=== PATIENT | female | born 1970 | race Caucasian/White ===

== ENCOUNTER → 2017-01-01 | Outpatient (CLI) | payer MEDICARE, MEDICAID ==
[~2017-01-01] MED LIST: BPR100T; BUPR300T2 PO; CHOL10003 PO; CLARINEX; CLIN300C3 PO; D50KC; DESV50TA PO; DOXY-13 PO; FEXO180T; FLUT9.9S NSEACH; FLUV100C PO; FLVX50T PO; FURO20TA4 PO; HLP5T; HYDR-2856; HYDR-3600; IBUP400T22; ISOM1CAP PO; ISOM1CAP11 PO; LAMO100T69 PO; LEVO88TA26 PO; LISI5TAB PO; LORA10CA PO; LORA10TA7 PO; LRT10T PO; MELO-195 PO; MELO7.5T; MELO7.5T PO; MNTL10T PO; NAPR-243 PO; NF-ESOM40C; POLY119P PO; PRD50T PO; PREG50C PO; RNT150T PO; ROZEREM; RT-ALBUINH IH; SULF1TAB38; SYNTHROID; TOPI200T19 PO; TPR100T; TRAZ150T42 PO; TRAZ300T3 PO; TRM50T PO; TRZ100T; ZALE10CA10 PO; [UNRECOGNIZED DRUG - CODE] OP
--- NOTE | 2017-01-01 13:31 | Diagnostic Imaging Report ---
EXAMINATION: Bilateral renal ultrasound. INDICATION: Chronic kidney disease. FINDINGS: The right kidney is 9.5 cm and the left kidney is 7.8 cm in length. There is no hydronephrosis or focal lesion. The lower pole of the left kidney is slightly obscured by overlying bowel gas. No focal lesion is identified. The echogenicity of the renal cortex is increased on both sides compatible with intrinsic parenchymal renal disease. The urinary bladder appears unremarkable. IMPRESSION: No hydronephrosis. Dictated by: Dictated on workstation # [id number]
== END ==
LOC: RAD 10:39
PROVIDERS: ATTEND Internal Medicine Nephrology
DX: I12.9 Hypertensive chronic kidney disease with stage 1 through stage 4 chronic kidney disease, or unspecified chronic kidney disease (principal); N18.3 Chronic kidney disease, stage 3 (moderate)
CPT/HCPCS: 76770

== ENCOUNTER 2017-04-24 10:50 | Outpatient (RCR) | payer MEDICARE, MEDICAID ==
[2017-04-23 13:43] LABS: BASOPHILS # (AUTO) 0.1 10^3/uL (0.0-0.1); BASOPHILS % (AUTO) 1 % (0-10); EOSINOPHILS # (AUTO) 0.8 10^3/uL (0.0-0.3); EOSINOPHILS % (AUTO) 7 % (0-10); LYMPHOCYTES # (AUTO) 2.2 X 10^3 (1.0-4.0); LYMPHOCYTES % (AUTO) 17 % (12-44); MEAN CORPUSCULAR HEMOGLOBIN 30 PG (25-34); MEAN CORPUSCULAR HGB CONC 33 G/DL (32-36); MEAN CORPUSCULAR VOLUME 92 FL (80-99); MEAN PLATELET VOLUME 11.1 FL (7.4-10.4); MONOCYTES # (AUTO) 0.8 X 10^3 (0.0-1.0); MONOCYTES % (AUTO) 6 % (0-12); NEUTROPHILS # (AUTO) 8.9 X 10^3 (1.8-7.8); NEUTROPHILS % (AUTO) 70 % (42-75); PLATELET COUNT 272 10^3/uL (130-400); RED BLOOD COUNT 4.16 10^6/uL (4.35-5.85); RED CELL DISTRIBUTION WIDTH 12.5 % (10.0-14.5); WHITE BLOOD COUNT 12.8 10^3/uL (4.3-11.0)
[2017-04-23 14:23] LABS: ALBUMIN 4.4 GM/DL (3.2-4.5); CALCIUM 9.3 MG/DL (8.5-10.1); CREATININE SERUM 1.5 MG/DL (0.60-1.30); MAGNESIUM 1.9 MG/DL (1.8-2.4); PHOSPHORUS 3.4 MG/DL (2.3-4.7); POTASSIUM 4.2 MMOL/L (3.6-5.0)
[2017-04-23 16:28] LABS: %SAT TOTAL IRON BINDING CAPIC 14 % (15-50); TIBC 353 ug/dL (280-380)
[2017-04-23 17:10] LABS: UIBC 304 ug/dL (55-450)
[2017-04-24 11:27] LABS: BILIRUBIN,URINE NEGATIVE (NEGATIVE); KETONES,URINE NEGATIVE (NEGATIVE); LEUKOCYTE ESTERASE ,URINE NEGATIVE (NEGATIVE); NITRITE,URINE NEGATIVE (NEGATIVE); PH,URINE 5 (5-9); PROTEIN,URINE NEGATIVE (NEGATIVE); UROBILINOGEN,URINE NORMAL (NORMAL)
[2017-04-24 11:42] LABS: SQUAMOUS EPITHELIAL CELL,UR 0-2 /HPF
[2017-04-24 16:09] LABS: CALCIUM PARA THYROID HORMONE 9.4 mg/dL (8.5-10.5); VITAMIN D 25-HYDROXY (TOTAL) 38 ng/mL (30-100)
[2017-04-24 16:10] LABS: FOLIC ACID >24.0 ng/mL (1.5-24.0)
== END 2017-04-29 14:28 | disposition home or self-care (01) ==
LOC: LAB 10:50 → EDSTATUS 04-29 14:27 → LAB 04-29 14:28
PROVIDERS: ATTEND Obstetrics & Gynecology Reproductive Endocrinology
DX: I12.9 Hypertensive chronic kidney disease with stage 1 through stage 4 chronic kidney disease, or unspecified chronic kidney disease (principal); N18.3 Chronic kidney disease, stage 3 (moderate); D64.9 Anemia, unspecified
CPT/HCPCS: 36415; 80069; 82306; 82607; 82728; 82746; 83540; 83735; 83970; 85025

== ENCOUNTER 2017-10-02 09:00 | Emergency (ER) | payer MEDICARE, MEDICAID ==
[~2017-10-02] VITALS: Ht 177.8 cm; Wt 99.8 kg
--- OUTSIDE RECORDS SUMMARY | 2017-10-02 09:11 | XMS REPORT ---
Author Author SEA BOYCE [facility] eClinicalWorks Address Unknown Phone Unavailable Care Team Providers Care Apparatus Operator Name Role Phone SEA BOYCE Unavailable Allergies No Known Allergies Problems Problem Type Condition Code Onset Dates Condition Status Problem Nicotine addiction F17.200 Active Problem Allergic rhinitis J30.9 Active Problem Plantar fascial fibromatosis M72.2 Active Problem Bilateral carotid artery disease I77.9 Active Problem Low back pain, unspecified back pain laterality, unspecified chronicity, with sciatica presence unspecified M54.5 Active Problem Slow transit constipation K59.01 Active Problem Depression F32.9 Active Problem Anxiety F41.9 Active Problem Osteoarthritis M19.90 Active Problem Schizo affective schizophrenia F25.0 Active Problem GERD (gastroesophageal reflux disease) K21.9 Active Problem Essential hypertension I10 Active Problem Insomnia G47.00 Active Problem Hypothyroidism E03.9 Active Problem Raynauds syndrome I73.00 Active Medications No Known Medications Results No Known Results Summary Purpose eClinicalWorks Submission
--- OUTSIDE RECORDS SUMMARY | 2017-10-02 09:11 | XMS REPORT ---
Author Author LINDY GALINDO Organization eClinicalWorks Address Unknown Phone Unavailable Care Team Providers Care Necktie Turner Name Role Phone LINDY GALINDO CP Unavailable Allergies No Known Allergies Problems Problem Type Condition ICD-9 Code Onset Dates Condition Status Problem Unspecified abnormal mammogram 793.80 Active Problem Insomnia, unspecified 780.52 Active Problem Raynaud's syndrome 443.0 Active Problem Equinus deformity of foot, acquired 736.72 Active Problem Pain in soft tissues of limb 729.5 Active Problem Lesion of plantar nerve 355.6 Active Problem Unspecified pruritic disorder 698.9 Active Problem Olecranon bursitis 726.33 Active Problem Routine general medical examination at health care facility V70.0 Active Problem Allergic rhinitis, cause unspecified 477.9 Active Problem Cough 786.2 Active Problem Acute sinusitis, unspecified 461.9 Active Problem Blood in stool 578.1 Active Problem Screening for malignant neoplasm of the cervix V76.2 Active Problem Nondependent tobacco use disorder 305.1 Active Problem Major depressive disorder, recurrent episode, severe, without mention of psychotic behavior 296.33 Active Problem Other and unspecified bipolar disorders 296.89 Active Problem Anxiety state, unspecified 300.00 Active Problem Other acute sinusitis 461.8 Active Problem Eating disorder, unspecified 307.50 Active Problem Unspecified peripheral vascular disease 443.9 Active Problem Other dysfunctions of sleep stages or arousal from sleep 307.47 Active Problem Unspecified psychosis 298.9 Active Problem Unspecified breast screening V76.10 Active Problem Unspecified follow-up examination V67.9 Active Problem Plantar fascial fibromatosis 728.71 Active Problem Rash and other nonspecific skin eruption 782.1 Active Problem Unspecified episodic mood disorder 296.90 Active Problem Pain in joint, upper arm 719.42 Active Medications Medication Code System Code Instructions Start Date End Date Status Dosage Meloxicam [facility] [id number] 15 TAKE ONE TABLET BY MOUTH DAILY Results No Known Results Summary Purpose eClinicalWorks Submission
--- OUTSIDE RECORDS SUMMARY | 2017-10-02 09:11 | XMS REPORT ---
Author Author SURJIT GOLDMAN [facility] eClinicalWorks Address Unknown Phone Unavailable Care Team Providers Care Planner Internship Name Role Phone SURJIT GOLDMAN CP Unavailable Allergies, Adverse Reactions, Alerts Substance Reaction Event Type Silvadene Info Not Available Drug Allergy Penicillin V Potassium Info Not Available Drug Allergy Levaquin muscle/joint ache Drug Allergy Feldene Info Not Available Drug Allergy Codeine Info Not Available Drug Allergy Cholecalciferol (vitamin D3) 50,000 Unit Capsule threw /medslabs out of whack Non Drug Allergy Problems Problem Type Condition Code Onset Dates Condition Status Problem GERD (gastroesophageal reflux disease) K21.9 Active Problem Insomnia G47.00 Active Problem Essential hypertension I10 Active Problem Depression F32.9 Active Assessment Depression F32.9 Active Problem Anxiety F41.9 Active Assessment Schizo affective schizophrenia F25.0 Active Problem Schizo affective schizophrenia F25.0 Active Problem Nicotine addiction F17.200 Active Problem Raynauds syndrome I73.00 Active Problem Allergic rhinitis J30.9 Active Problem Plantar fascial fibromatosis M72.2 Active Assessment GERD (gastroesophageal reflux disease) K21.9 Active Assessment Raynauds syndrome I73.00 Active Assessment Anxiety F41.9 Active Assessment Allergic rhinitis J30.9 Active Assessment Essential hypertension I10 Active Assessment Hypothyroidism E03.9 Active Assessment Nicotine addiction F17.200 Active Assessment Routine adult health maintenance Z00.00 Active Assessment Insomnia G47.00 Active Problem Hypothyroidism E03.9 Active Medications Medication Code System Code Instructions Start Date End Date Status Dosage Meloxicam [facility] [id number] 15 TAKE ONE TABLET BY MOUTH DAILY Topamax [facility] [address]-48 200 mg May 06, 2013 take 1 tablet by Oral route 2 times per day for mood stabilization Singulair [facility] [id number] 10 TAKE ONE TABLET BY MOUTH EVERY EVENING Lamictal [facility] [address]-43 200 mg May 06, 2013 1 tablet by Oral route 1 time per day in evening for mood stabilization. Wellbutrin XL [facility] [address]-74 150 mg Mar 16, 2014 take 1 tablet by Oral route 1 time per day take with 300mg BuPROPion HCl [facility] [address]-37 300 mg Mar 16, 2014 take 1 tablet by Oral route 1 time per day take with 150mg Loratadine [facility] [address]-47 10 MG Orally Once a day 1 tablet ProAir HFA [facility] [address]-73 90 mcg/actuation Jun 28, 2014 inhale 2 puffs by Inhalation route every 4 hours as needed PRN shortness of breath/ cough Lisinopril [facility] [address]-73 5 mg 1 TAB orally once a day Jun 28, 2014 take 1 tablet (5 mg) by oral route once daily ranitidine [facility] 0 150 mg orally 2 times a day prn heartburn Jun 28, 2014 1 tablet Zoloft [facility] [address]-81 100 mg Jun 28, 2014 take 1 tablet (100 mg ) by oral route once daily levothyroxine [facility] 0 88 mcg Jun 28, 2014 take 1 tablet (88 mcg) by oral route once daily Vitamin D [facility] [address]-02 1000 UNIT Orally Once a day 1 tablet Melatonin [facility] [address]-77 5 mg December 10, 2012 0.5 Tablet by Oral route 1 time per day at night Procedures Procedure Coding System Code Date VENIPUNCT, ROUTINE* CPT-4 23558 Jun 16, 2015 [facility] VISIT ESTABLISHED PATIENT CPT-4 G0467 Jun 16, 2015 LAB [facility]ILL[facility] BY [facility] CPT-4 NOBLL Jun 16, 2015 Office Visit, Est Pt., Level 4 CPT-4 30233 Jun 16, 2015 Vital Signs Date/Time: Jun 16, 2015 Temperature 98.3 F Weight 176.0 lbs Height 72 in BMI 23.87 Index Blood Pressure Diastolic 72 mmHg Blood Pressure Systolic 138 mmHg Cardiac Monitoring Heart Rate 70 bpm Results Name Result Date Reference Range Unit Abnormality Flag ROUTINE VENIPUNCTURE Summary Purpose eClinicalWorks Submission
--- OUTSIDE RECORDS SUMMARY | 2017-10-02 09:11 | XMS REPORT ---
Author Author SEA BOYCE Organization [facility] Address [address] [place] [address] Care Team Providers Care General Matcher Name Role Phone CARLI SEA Unavailable PROBLEMS Type Condition ICD9-CM Code [id number] Code Onset Dates Condition Status SNOMED Code Problem Osteoarthritis M19.90 Active 754940762 Problem Low back pain, unspecified back pain laterality, unspecified chronicity, with sciatica presence unspecified M54.5 Active 867905857 Problem Slow transit constipation K59.01 Active 78161754 Problem Leonela-menopausal N95.1 Active 485696030873450 Problem Allergic rhinitis J30.9 Active 57057991 Problem Vitamin D deficiency E55.9 Active 80261977 Problem Visit for TB skin test Z11.1 Active 510634087 Problem Bilateral carotid artery disease I77.9 Active 300223091 Problem Fibromyalgia M79.7 Active 421963661 Problem Stage 3 chronic kidney disease N18.3 Active 620856223 Problem GERD (gastroesophageal reflux disease) K21.9 Active 240145680 Problem Hypothyroidism E03.9 Active 01278437 Problem Insomnia G47.00 Active 773785778 Problem Depression F32.9 Active 44112565 Problem Schizo affective schizophrenia F25.0 Active 578057536 Problem Plantar fascial fibromatosis M72.2 Active 23801632 Problem Anxiety F41.9 Active 23627081 Problem Raynauds syndrome I73.00 Active 851759950 Problem Essential hypertension I10 Active 64243383 Problem Nicotine addiction F17.200 Active 31623118 ALLERGIES No Information SOCIAL HISTORY Never Assessed PLAN OF CARE VITAL SIGNS MEDICATIONS Unknown Medications RESULTS No Results PROCEDURES No Known procedures IMMUNIZATIONS No Known Immunizations MEDICAL (GENERAL) HISTORY Type Description Date Medical History Hypertension Medical History Seasonal allergies Medical History raynauds syndrome Medical History Insomnia Medical History Hypothyroidism Medical History schizoaffective disorder with bipolar tendancies Medical History Manic Depression Medical History carotid artery disease Medical History kidney Disease Surgical History Appendectomy Surgical History Cholecystectomy Hospitalization History childbirth Hospitalization History past surgery Hospitalization History mental illness
--- OUTSIDE RECORDS SUMMARY | 2017-10-02 09:11 | XMS REPORT ---
Author Author JULIA GARCIA Organization [facility] Address [address] [place] [address] Care Team Providers Care Local City Driver Name Role Phone JULIA GARCIA Unavailable PROBLEMS Type Condition ICD9-CM Code [id number] Code Onset Dates Condition Status SNOMED Code Problem Plantar fascial fibromatosis M72.2 Active 96918587 Problem Anxiety F41.9 Active 76905866 Problem Allergic rhinitis J30.9 Active 15011200 Problem Slow transit constipation K59.01 Active 71900016 Problem Bilateral carotid artery disease I77.9 Active 706236638 Problem Schizo affective schizophrenia F25.0 Active 438011451 Problem Depression F32.9 Active 54319805 Problem Low back pain, unspecified back pain laterality, unspecified chronicity, with sciatica presence unspecified M54.5 Active 937060252 Problem Osteoarthritis M19.90 Active 599036062 Assessment Schizo affective schizophrenia F25.0 27 Mar, 2016 Active 858675760 Problem Essential hypertension I10 Active 42855277 Problem Insomnia G47.00 Active 962497258 Problem Hypothyroidism E03.9 Active 53535192 Problem Raynauds syndrome I73.00 Active 491398580 Problem GERD (gastroesophageal reflux disease) K21.9 Active 333208901 Problem Nicotine addiction F17.200 Active 57701518 ALLERGIES Unknown Allergies SOCIAL HISTORY No smoking Hx information available PLAN OF CARE VITAL SIGNS MEDICATIONS Unknown Medications RESULTS No Results PROCEDURES Procedure Date Ordered Related Diagnosis Body Site [facility] VISIT MENTAL HEALTH ESTAB PT Apr 09, 2016 Psychotherapy, patient &/family, 45 minutes, established patient Apr 09, 2016 IMMUNIZATIONS No Known Immunizations
--- OUTSIDE RECORDS SUMMARY | 2017-10-02 09:11 | XMS REPORT ---
Author Author YUSEF GIRON eClinicalWorks Address Unknown Phone Unavailable Care Team Providers Care Sleeve Setter Name Role Phone YUSEF GIRON CP Unavailable Allergies, Adverse Reactions, Alerts Substance [...] Condition Code Onset Dates Condition Status Problem Essential hypertension I10 Active Problem Raynauds syndrome I73.00 Active Problem Insomnia G47.00 Active Problem Schizo affective schizophrenia F25.0 Active Problem Depression F32.9 Active Problem Osteoarthritis M19.90 Active Problem Plantar fascial fibromatosis M72.2 Active Problem Nicotine addiction F17.200 Active Problem Anxiety F41.9 Active Problem Allergic rhinitis J30.9 Active Assessment Acute otitis externa of both ears, unspecified type H60.503 Active Problem Hypothyroidism E03.9 Active Problem GERD (gastroesophageal reflux disease) K21.9 Active Medications Medication Code System Code Instructions Start Date End Date Status Dosage ranitidine ND 0 150 mg orally 2 times a day prn heartburn Jun 28, 2014 1 tablet Lamictal [facility] [address]-41 200 mg May 06, 2013 1 tablet by Oral route 1 time per day in evening for mood stabilization. Ofloxacin [facility] [address]-81 0.3 % Otic Once a day Jul 19, 2015 Jul 26, 2015 10 drops into affected ear Vitamin D [facility] [address]-99 1000 UNIT Orally Once a day 1 tablet Lisinopril [facility] [address]-74 5 MG Orally Once a day Jun 28, 2014 1 tablet Loratadine [facility] [address]-14 10 MG Orally Once a day 1 tablet Topamax [facility] [address]-46 200 mg May 06, 2013 take 1 tablet by Oral route 2 times per day for mood stabilization Flonase NDC 0 not defined Singulair [facility] 85279792863 10 Orally Once a day TAKE ONE TABLET BY MOUTH EVERY EVENING BuPROPion HCl [facility] [address]-28 300 mg Mar 16, 2014 take 1 tablet by Oral route 1 time per day take with 150mg Meloxicam [facility] [address]-26 15 MG Orally Once a day 1 tablet levothyroxine ND 0 88 mcg orally Once a day Jun 28, 2014 take 1 tablet Zoloft [facility] [address]-45 100 mg Jun 28, 2014 take 1 tablet (100 mg ) by oral route once daily ProAir HFA [facility] [address]-12 90 mcg/actuation Jun 28, 2014 inhale 2 puffs by Inhalation route every 4 hours as needed PRN shortness of breath/ cough Melatonin [facility] [address]-28 5 mg December 10, 2012 0.5 Tablet by Oral route 1 time per day at night Wellbutrin XL [facility] [address]-32 150 mg Mar 16, 2014 take 1 tablet by Oral route 1 time per day take with 300mg Procedures Procedure Coding System Code Date Office Visit, Est Pt., Level 3 CPT-4 54281 Jul 19, 2015 [facility]IS[facility] ESTABLISHED PATIENT CPT-4 G0467 Jul 19, 2015 Vital Signs Date/Time: Jul 19, 2015 Temperature 97.8 F Weight 182.6 lbs Height 72 in BMI 24.76 Index Blood Pressure Diastolic 82 mmHg Blood Pressure Systolic 160 mmHg Cardiac Monitoring Heart Rate 60 bpm Results No Known Results Summary Purpose eClinicalWorks Submission
--- OUTSIDE RECORDS SUMMARY | 2017-10-02 09:12 | XMS REPORT ---
Author Author JULIA GARCIA Organization [facility] Address [address] [place] [address] Care Team Providers Care Fruit Packer Face And Fill Name Role Phone JULIA GARCIA Unavailable PROBLEMS Type Condition ICD9-CM Code [id number] Code Onset Dates Condition Status SNOMED Code Problem Plantar fascial fibromatosis M72.2 Active 84182975 Problem Anxiety F41.9 Active 37173101 Problem Allergic rhinitis J30.9 Active 54486640 Problem Slow transit constipation K59.01 Active 69527368 Problem Bilateral carotid artery disease I77.9 Active 296967981 Problem Schizo affective schizophrenia F25.0 Active 460639933 Problem Depression F32.9 Active 71126034 Problem Low back pain, unspecified back pain laterality, unspecified chronicity, with sciatica presence unspecified M54.5 Active 757118371 Problem Osteoarthritis M19.90 Active 273358941 Assessment Schizo affective schizophrenia F25.0 15 Mar, 2016 Active 532216113 Problem Essential hypertension I10 Active 48225171 Problem Insomnia G47.00 Active 993028046 Problem Hypothyroidism E03.9 Active 14762911 Problem Raynauds syndrome I73.00 Active 121648507 Problem GERD (gastroesophageal reflux disease) K21.9 Active 456498258 Problem Nicotine addiction F17.200 Active 12797263 ALLERGIES Unknown Allergies SOCIAL HISTORY No smoking Hx information available PLAN OF CARE VITAL SIGNS MEDICATIONS Unknown Medications RESULTS No Results PROCEDURES Procedure Date Ordered Related Diagnosis Body Site [facility] VISIT MENTAL HEALTH ESTAB PT Mar 28, 2016 Psychotherapy, patient &/family, 45 minutes, established patient Mar 28, 2016 IMMUNIZATIONS No Known Immunizations
--- OUTSIDE RECORDS SUMMARY | 2017-10-02 09:12 | XMS REPORT ---
Author Author SEA BOYCE Organization [facility] Address [address] [place] [address] Care Team Providers Care Squad Leader Name Role Phone HAO BOYCENETTE Unavailable PROBLEMS Type Condition ICD9-CM Code [id number] Code Onset Dates Condition Status SNOMED Code Problem Osteoarthritis M19.90 Active 194418161 Problem Bilateral carotid artery disease I77.9 Active 625330590 Problem Low back pain, unspecified back pain laterality, unspecified chronicity, with sciatica presence unspecified M54.5 Active 749255958 Problem Leonela-menopausal N95.1 Active 667640208487482 Problem Hypothyroidism E03.9 Active 19774136 Problem Vitamin D deficiency E55.9 Active 02097165 Problem Visit for TB skin test Z11.1 Active 956689692 Problem Slow transit constipation K59.01 Active 43625237 Problem Stage 3 chronic kidney disease N18.3 Active 819877327 Problem Fibromyalgia M79.7 Active 935312239 Problem Insomnia G47.00 Active 973962262 Problem Raynauds syndrome I73.00 Active 827916007 Problem GERD (gastroesophageal reflux disease) K21.9 Active 923680172 Problem Essential hypertension I10 Active 06196217 Problem Allergic rhinitis J30.9 Active 63700423 Problem Anxiety F41.9 Active 51583483 Problem Nicotine addiction F17.200 Active 24508199 Problem Depression F32.9 Active 85608811 Problem Plantar fascial fibromatosis M72.2 Active 87421166 Problem Schizo affective schizophrenia F25.0 Active 318032041 ALLERGIES Substance Reaction Event Type Date Status Silvadene Unknown Drug Allergy Jun, Active Penicillin V Potassium Unknown Drug Allergy Jun, Active Levaquin muscle/joint ache Drug Allergy Jun, Active Feldene Unknown Drug Allergy Jun, Active Cholecalciferol (vitamin D3) 50,000 Unit Capsule threw /medslabs out of whack Non Drug Allergy Jun, Active SOCIAL HISTORY No smoking Hx information available PLAN OF CARE Activity Details Follow Up 3 Months Reason:hypothyroid VITAL SIGNS Height 72 in 2016-07-02 Weight 190.0 lbs 2016-07-02 Temperature 98.1 degrees Fahrenheit 2016-07-02 Heart Rate 80 bpm 2016-07-02 Respiratory Rate 20 2016-07-02 BMI 25.77 kg/m2 2016-07-02 Blood pressure systolic 181 mmHg 2016-07-02 Blood pressure diastolic 93 mmHg 2016-07-02 MEDICATIONS Medication Instructions Dosage Frequency Start Date End Date Duration Status Zoloft 100 MG take 1 tablet (100 mg) by oral route once daily Jun, Active Vitamin D 1000 UNIT Orally Once a day 1 tablet 24h Active Lisinopril 5 mg Orally Once a day 1 tablet 24h Jun, Active Meloxicam 15 MG Orally Once a day 1 tablet 24h Active BuPROPion HCl 300 mg take 1 tablet by Oral route 1 time per day take with 150mg Mar, Active Lamictal 200 mg 1 tablet by Oral route 1 time per day in evening for mood stabilization. Apr, Active Hydrocortisone 2.5 % Externally Twice a day 1 application to affected area 12h Feb, Active Melatonin 5 mg 0.5 Tablet by Oral route 1 time per day at night November Active Loratadine 10 MG Orally Once a day 1 tablet 24h Active Singulair 10 Orally Once a day TAKE ONE TABLET BY MOUTH EVERY EVENING 24h 14 days Active Topamax 200 mg take 1 tablet by Oral route 2 times per day for mood stabilization Apr, Active Flonase Allergy Relief 50 MCG/ACT Nasally Once a day 1 spray in each nostril 24h Jun, 30 day(s) Active Meloxicam 15 Orally Once a day 1 tablet 24h 30 Active Levothyroxine Sodium 100 MCG Orally Once a day 1 tablet 24h Sep, Active Levothyroxine Sodium 100 TAKE ONE TABLET BY MOUTH DAILY 30 Active PredniSONE 20 mg Orally twice a day 1 tablet 12h Jun, Jun, 05 days Active Lubiprostone 8 MCG Orally Twice a day 1 capsule with food 12h Active Cefdinir 300 MG Orally every 12 hrs 1 capsule 12h Jun, Jun, 10 day(s) Active ProAir HFA 90 mcg/actuation inhale 2 puffs by Inhalation route every 4 hours as needed PRN shortness of breath/cough Jun, Active Pantoprazole Sodium 40 mg Orally Once a day 1 tablet 24h Jun, 30 day(s) Active RESULTS Name Result Date Reference Range TSH W/ FREE T4 2016-07-02 TSH 3.190 0.450-4.500 T4,Free(Direct) 1.17 0.82-1.77 CBC 2016-07-02 WBC 13.2 3.4-10.8 RBC 3.82 3.77-5.28 Hemoglobin 11.6 11.1-15.9 Hematocrit 34.3 34.0-46.6 MCV 90 79-97 MCH 30.4 26.6-33.0 MCHC 33.8 31.5-35.7 RDW 13.1 12.3-15.4 Platelets 268 150-379 Neutrophils 63 Lymphs 20 Monocytes 9 Eos 8 Basos 0 Neutrophils (Absolute) 8.3 1.4-7.0 Lymphs (Absolute) 2.6 0.7-3.1 Monocytes(Absolute) 1.2 0.1-0.9 Eos (Absolute) 1.0 0.0-0.4 Baso (Absolute) 0.1 0.0-0.2 Immature Granulocytes 0 Immature Grans (Abs) 0.0 0.0-0.1 LIPID PANEL 2016-07-02 Cholesterol, Total 152 100-199 Triglycerides 104 0-149 HDL Cholesterol 39 >39 VLDL Cholesterol Branden 21 5-40 LDL Cholesterol Calc 92 0-99 Comment: CMP 2016-07-02 Glucose, Serum 78 65-99 BUN 11 6-24 Creatinine, Serum 1.43 0.57-1.00 eGFR If NonAfricn Am 43 >59 eGFR If Africn Am 50 >59 BUN/Creatinine Ratio 8 9-23 Sodium, Serum 139 134-144 Potassium, Serum 4.2 3.5-5.2 Chloride, Serum 103 96-106 Carbon Dioxide, Total 21 18-29 Calcium, Serum 7.4 8.7-10.2 Protein, Total, Serum 6.4 6.0-8.5 Albumin, Serum 4.3 3.5-5.5 Globulin, Total 2.1 1.5-4.5 A/G Ratio 2.0 1.1-2.5 Bilirubin, Total 0.2 0.0-1.2 Alkaline Phosphatase, S 92 39-117 AST (SGOT) 13 0-40 ALT (SGPT) 9 0-32 PROCEDURES Procedure Date Ordered Related Diagnosis Body Site LAB [facility] BY [facility] Jul 02, 2016 [facility] VISIT ESTABLISHED PATIENT Jul 02, 2016 JOE, ROUTINE* Jul 02, 2016 Office Visit, Est Pt., Level 4 Jul 02, 2016 IMMUNIZATIONS No Known Immunizations
--- OUTSIDE RECORDS SUMMARY | 2017-10-02 09:12 | XMS REPORT ---
Author Author LINDY GALINDO [facility] eClinicalWorks Address Unknown Phone Unavailable Care Team Providers Care Personal Injury Specialist Name Role Phone LINDY GALINDO Unavailable Allergies No Known Allergies Problems Problem [...] Start Date End Date Status Dosage Meloxicam [facility] [id number] 15 TAKE ONE TABLET BY MOUTH DAILY Loratadine [facility] [address]-49 10 MG Orally Once a day 1 tablet Results No Known Results Summary Purpose eClinicalWorks Submission
--- OUTSIDE RECORDS SUMMARY | 2017-10-02 09:12 | XMS REPORT ---
Author Author SEA BOYCE Organization [facility] Address [address] [place] [address] Care Team Providers Care Extractions Technician Name Role Phone HAO BOYCENETTE Unavailable PROBLEMS Type Condition ICD9-CM Code DOU69-UN Code Onset Dates Condition Status SNOMED Code Problem Osteoarthritis M19.90 Active 571534563 Problem Low back pain, unspecified back pain laterality, unspecified chronicity, with sciatica presence unspecified M54.5 Active 204578102 Problem Slow transit constipation K59.01 Active 02599464 Problem Leonela-menopausal N95.1 Active 034794871117150 Problem Allergic rhinitis J30.9 Active 17046589 Problem Vitamin D deficiency E55.9 Active 55910902 Problem Visit for TB skin test Z11.1 Active 848013255 Problem Bilateral carotid artery disease I77.9 Active 613536462 Problem Fibromyalgia M79.7 Active 120489371 Problem Stage 3 chronic kidney disease N18.3 Active 265888388 Problem GERD (gastroesophageal reflux disease) K21.9 Active 093836614 Problem Hypothyroidism E03.9 Active 77116038 Problem Insomnia G47.00 Active 711551079 Problem Depression F32.9 Active 05034400 Problem Schizo affective schizophrenia F25.0 Active 900674337 Problem Plantar fascial fibromatosis M72.2 Active 66643294 Problem Anxiety F41.9 Active 49767810 Problem Raynauds syndrome I73.00 Active 975052714 Problem Essential hypertension I10 Active 86500413 Problem Nicotine addiction F17.200 Active 61849380 ALLERGIES No Information SOCIAL HISTORY Never Assessed PLAN OF CARE VITAL SIGNS MEDICATIONS Medication Instructions Dosage Frequency Start Date End Date Duration Status EQ Nasal [place] 0.05 % Nasally Twice a day 1 spray in each nostril 12h 14 Sep, 2016 30 days Active RESULTS No Results PROCEDURES No Known procedures [...]
--- OUTSIDE RECORDS SUMMARY | 2017-10-02 09:12 | XMS REPORT ---
Author Author SEA BOYCE Organization [facility] Address [address] [place] [address] Care Team Providers Care Rejector Name Role Phone CARLI SEA Unavailable PROBLEMS Type Condition ICD9-CM Code BAB33-JP Code Onset Dates Condition Status SNOMED Code Problem Osteoarthritis M19.90 Active 271469373 Problem Low back pain, unspecified back pain laterality, unspecified chronicity, with sciatica presence unspecified M54.5 Active 170546093 Problem Slow transit constipation K59.01 Active 21383185 Problem Leonela-menopausal N95.1 Active 478589420394165 Problem Allergic rhinitis J30.9 Active 73419790 Problem Vitamin D deficiency E55.9 Active 71322769 Problem Visit for TB skin test Z11.1 Active 331764375 Problem Bilateral carotid artery disease I77.9 Active 617933306 Problem Fibromyalgia M79.7 Active 351665316 Problem Stage 3 chronic kidney disease N18.3 Active 912227117 Problem GERD (gastroesophageal reflux disease) K21.9 Active 335929418 Problem Hypothyroidism E03.9 Active 54094371 Problem Insomnia G47.00 Active 376111412 Problem Depression F32.9 Active 25179158 Problem Schizo affective schizophrenia F25.0 Active 974895797 Problem Plantar fascial fibromatosis M72.2 Active 44262568 Problem Anxiety F41.9 Active 63157889 Problem Raynauds syndrome I73.00 Active 269103980 Problem Essential hypertension I10 Active 17905756 Problem Nicotine addiction F17.200 Active 59434558 ALLERGIES No Information SOCIAL HISTORY Never Assessed [...]
--- OUTSIDE RECORDS SUMMARY | 2017-10-02 09:12 | XMS REPORT ---
Author Author PUNEET NIELSON [facility] Address [address] [place] [address] Care Team Providers Care Wire Machine Operator Name Role Phone PUNEET NIELSON Unavailable PROBLEMS Type Condition ICD9-CM Code RAA13-SV Code Onset Dates Condition Status SNOMED Code Problem Plantar fascial fibromatosis M72.2 Active 13779070 Problem Anxiety F41.9 Active 07019418 Problem Allergic rhinitis J30.9 Active 14301299 Problem Slow transit constipation K59.01 Active 34024984 Problem Bilateral carotid artery disease I77.9 Active 452558995 Problem Schizo affective schizophrenia F25.0 Active 065492023 Problem Depression F32.9 Active 47091162 Problem Low back pain, unspecified back pain laterality, unspecified chronicity, with sciatica presence unspecified M54.5 Active 916580064 Problem Osteoarthritis M19.90 Active 483114455 Assessment Acute non-recurrent maxillary sinusitis J01.00 Mar, Active 17430997 Problem Essential hypertension I10 Active 54819727 Problem Insomnia G47.00 Active 642038121 Problem Hypothyroidism E03.9 Active 02733560 Problem Raynauds syndrome I73.00 Active 510552480 Problem GERD (gastroesophageal reflux disease) K21.9 Active 236289857 Problem Nicotine addiction F17.200 Active 78887972 ALLERGIES Substance Reaction Event Type Date Status Silvadene Unknown Drug Allergy Mar, Active Penicillin V Potassium Unknown Drug Allergy Mar, Active Levaquin muscle/joint ache Drug Allergy Mar, Active Feldene Unknown Drug Allergy Mar, Active Cholecalciferol (vitamin D3) 50,000 Unit Capsule threw /medslabs out of whack Non Drug Allergy Mar, Active SOCIAL HISTORY No smoking Hx information available PLAN OF CARE VITAL SIGNS Height 72 in 2016-03-19 Weight 181.4 lbs 2016-03-19 Heart Rate 80 bpm 2016-03-19 Respiratory Rate 20 2016-03-19 BMI 24.60 kg/m2 2016-03-19 Blood pressure systolic 120 mmHg 2016-03-19 Blood pressure diastolic 72 mmHg 2016-03-19 MEDICATIONS Medication Instructions Dosage Frequency Start Date End Date Duration Status ranitidine 150 mg orally 2 times a day prn heartburn 1 tablet Jun, Active Meloxicam 15 MG Orally Once a day 1 tablet 24h Active Wellbutrin XL 150 mg take 1 tablet by Oral route 1 time per day take with 300mg Mar, Active Singulair 10 TAKE ONE TABLET BY MOUTH EVERY EVENING 30 Active Topamax 200 mg take 1 tablet by Oral route 2 times per day for mood stabilization Apr, Active Loratadine 10 MG Orally Once a day 1 tablet 24h Active Hydrocortisone 2.5 % Externally Twice a day 1 application to affected area 12h Feb, Active Azithromycin 250 MG Orally Once a day 2 tablets on the first day, then 1 tablet daily for 4 days 24h Mar, Mar, 5 day(s) Active Lamictal 200 mg 1 tablet by Oral route 1 time per day in evening for mood stabilization. Apr, Active Lubiprostone 8 MCG Orally Twice a day 1 capsule with food 12h Active Levothyroxine Sodium 100 MCG Orally Once a day 1 tablet 24h Sep, Active Melatonin 5 mg 0.5 Tablet by Oral route 1 time per day at night November Active Flonase Active Zoloft 100 MG take 1 tablet (100 mg) by oral route once daily Jun, Active BuPROPion HCl 300 mg take 1 tablet by Oral route 1 time per day take with 150mg Mar, Active ProAir HFA 90 mcg/actuation inhale 2 puffs by Inhalation route every 4 hours as needed PRN shortness of breath/cough Jun, Active Lisinopril 5 MG Orally Once a day 1 tablet 24h Jun, Active Vitamin D 1000 UNIT Orally Once a day 1 tablet 24h Active RESULTS No Results PROCEDURES Procedure Date Ordered Related Diagnosis Body Site [facility] VISIT ESTABLISHED PATIENT Mar 19, 2016 Office Visit, Est Pt., Level 3 Mar 19, 2016 IMMUNIZATIONS No Known Immunizations
--- OUTSIDE RECORDS SUMMARY | 2017-10-02 09:12 | XMS REPORT ---
Author Author LINDY GALINDO [facility] eClinicalWorks Address Unknown Phone Unavailable Care Team Providers Care Livestock Dealer Name Role Phone LINDY GALINDO CP Unavailable Allergies, Adverse Reactions, Alerts Substance Reaction Event Type Levaquin muscle/joint ache Drug Allergy Codeine Info Not Available Drug Allergy Cholecalciferol (vitamin D3) 50,000 Unit Capsule threw /medslabs out of whack Non Drug Allergy Problems Problem Type Condition ICD-9 Code Onset Dates Condition Status Assessment Environmental and seasonal allergies 477.8 Active Assessment Jaw pain 784.92 Active Problem Unspecified abnormal mammogram 793.80 Active Problem [...] Instructions Start Date End Date Status Dosage Singulair [facility] 72047060006 10 TAKE ONE TABLET BY MOUTH EVERY EVENING Levoxyl [facility] 15242246361 88 TAKE ONE TABLET (88MCG) BY MOUTH DAILY Loratadine [facility] [address]-49 10 mg November 04, 2012 1 Tablet by Oral route 2 times per day BuPROPion HCl [facility] [address]-91 300 mg Mar 16, 2014 take 1 tablet by Oral route 1 time per day take with 150mg Wellbutrin XL [facility] [address]-05 150 mg Mar 16, 2014 take 1 tablet by Oral route 1 time per day take with 300mg Zoloft [facility] [address]-27 100 mg Jun 28, 2014 take 1 tablet (100 mg ) by oral route once daily Meloxicam [facility] 44628013659 15 TAKE ONE TABLET BY MOUTH DAILY Melatonin [facility] [address]-64 5 mg December 10, 2012 0.5 Tablet by Oral route 1 time per day at night Lisinopril [facility] [address]-64 5 mg 1 TAB orally once a day Jun 28, 2014 take 1 tablet (5 mg) by oral route once daily ranitidine [facility] 0 150 mg Jun 28, 2014 1 tablet 2 times per day as needed for heartburn levothyroxine [facility] 0 88 mcg Jun 28, 2014 take 1 tablet (88 mcg) by oral route once daily Topamax [facility] [address]-02 200 mg May 06, 2013 take 1 tablet by Oral route 2 times per day for mood stabilization Lamictal [facility] [address]-10 200 mg May 06, 2013 1 tablet by Oral route 1 time per day in evening for mood stabilization. Vitamin D [facility] [address]-93 1000 UNIT Orally Once a day 1 tablet PredniSONE [facility] [address]-16 10 MG Orally Twice a day Mar 07, 2015Feb 1 tablet with food or milk Prinivil [facility] 09370267388 5 TAKE ONE TABLET BY MOUTH DAILY ProAir HFA [facility] [address]-42 90 mcg/actuation Jun 28, 2014 inhale 2 puffs by Inhalation route every 4 hours as needed PRN shortness of breath/ cough Procedures Procedure Coding System Code Date Office Visit, Est Pt., Level 3 CPT-4 69986 Mar 07, 2015 [facility] VISIT ESTABLISHED PATIENT CPT-4 G0467 Mar 07, 2015 Vital Signs Date/Time: Mar 07, 2015 Temperature 98.5 F Weight 173.5 lbs Height 72 in BMI 23.53 Index Blood Pressure Diastolic 82 mmHg Blood Pressure Systolic 124 mmHg Cardiac Monitoring Heart Rate 72 bpm Results No Known Results Summary Purpose eClinicalWorks Submission
--- OUTSIDE RECORDS SUMMARY | 2017-10-02 09:12 | XMS REPORT ---
Author Author SEA BOYCE Organization [facility] Address [address] [place] [address] Care Team Providers Care Bench Inspector Name Role Phone HAO BOYCENETTE Unavailable PROBLEMS Type Condition ICD9-CM Code [id number] Code Onset Dates Condition Status SNOMED Code Problem Osteoarthritis M19.90 Active 950867763 Problem Low back pain, unspecified back pain laterality, unspecified chronicity, with sciatica presence unspecified M54.5 Active 301994714 Problem Slow transit constipation K59.01 Active 64215418 Problem Leonela-menopausal N95.1 Active 836105223842395 Problem Allergic rhinitis J30.9 Active 83476164 Problem Vitamin D deficiency E55.9 Active 85071189 Problem Visit for TB skin test Z11.1 Active 912204481 Problem Bilateral carotid artery disease I77.9 Active 164629316 Problem Fibromyalgia M79.7 Active 572722939 Problem Stage 3 chronic kidney disease N18.3 Active 724390937 Problem GERD (gastroesophageal reflux disease) K21.9 Active 520761720 Problem Hypothyroidism E03.9 Active 85132175 Problem Insomnia G47.00 Active 443204934 Problem Depression F32.9 Active 25286028 Problem Schizo affective schizophrenia F25.0 Active 276328136 Problem Plantar fascial fibromatosis M72.2 Active 79900268 Problem Anxiety F41.9 Active 56861133 Problem Raynauds syndrome I73.00 Active 167311678 Problem Essential hypertension I10 Active 95735441 Problem Nicotine addiction F17.200 Active 07597608 ALLERGIES No Information SOCIAL HISTORY Never Assessed PLAN OF CARE VITAL SIGNS MEDICATIONS Medication Instructions Dosage Frequency Start Date End Date Duration Status Rhinocort Allergy 32 MCG/ACT Nasally Once a day 1 puffs in each nostril 24h Jul, 30 days Active RESULTS No Results PROCEDURES [...]
--- OUTSIDE RECORDS SUMMARY | 2017-10-02 09:13 | XMS REPORT ---
Author Author SEA BOYCE Organization [facility] Address [address] [place] [address] Care Team Providers Care Shot Dropper Name Role Phone CARLI SEA Unavailable PROBLEMS Type Condition ICD9-CM Code ATS11-KT Code Onset Dates Condition Status SNOMED Code Problem Osteoarthritis M19.90 Active 488280964 Problem Low back pain, unspecified back pain laterality, unspecified chronicity, with sciatica presence unspecified M54.5 Active 313331743 Problem Slow transit constipation K59.01 Active 68782394 Problem Leonela-menopausal N95.1 Active 645487120119604 Problem Allergic rhinitis J30.9 Active 92915288 Problem Vitamin D deficiency E55.9 Active 81076831 Problem Visit for TB skin test Z11.1 Active 920071750 Problem Bilateral carotid artery disease I77.9 Active 523023176 Problem Fibromyalgia M79.7 Active 617491278 Problem Stage 3 chronic kidney disease N18.3 Active 058584071 Problem GERD (gastroesophageal reflux disease) K21.9 Active 559201564 Problem Hypothyroidism E03.9 Active 26674568 Problem Insomnia G47.00 Active 010550836 Problem Depression F32.9 Active 28335518 Problem Schizo affective schizophrenia F25.0 Active 401875192 Problem Plantar fascial fibromatosis M72.2 Active 48977301 Problem Anxiety F41.9 Active 03583548 Problem Raynauds syndrome I73.00 Active 955221115 Problem Essential hypertension I10 Active 56279080 Problem Nicotine addiction F17.200 Active 39925519 ALLERGIES No Information SOCIAL HISTORY Never Assessed [...]
--- OUTSIDE RECORDS SUMMARY | 2017-10-02 09:13 | XMS REPORT ---
Author Author QUYEN TURNER [facility] eClinicalWorks Address Unknown Phone Unavailable Care Team Providers Care Infantry Weapons Crewmember Name Role Phone QUYEN TURNER CP Unavailable Allergies, Adverse Reactions, Alerts Substance Reaction Event Type Levaquin muscle/joint ache Drug Allergy Codeine Info Not Available Drug Allergy Cholecalciferol (vitamin D3) 50,000 Unit Capsule threw /medslabs out of whack Non Drug Allergy Problems Problem Type Condition Code Onset Dates Condition Status Assessment Upper respiratory tract infection, unspecified type J06.9 Active Problem Unspecified abnormal mammogram 793.80 Active [...] Instructions Start Date End Date Status Dosage Melatonin [facility] [address]-01 5 mg December 10, 2012 0.5 Tablet by Oral route 1 time per day at night Meloxicam [facility] 49605564164 15 TAKE ONE TABLET BY MOUTH DAILY levothyroxine [facility] 0 88 mcg Jun 28, 2014 take 1 tablet (88 mcg) by oral route once daily BuPROPion HCl [facility] [address]-51 300 mg Mar 16, 2014 take 1 tablet by Oral route 1 time per day take with 150mg Lisinopril [facility] [address]-80 5 mg 1 TAB orally once a day Jun 28, 2014 take 1 tablet (5 mg) by oral route once daily Zithromax Z-Michel [facility] [address]-63 250 MG Orally Once a day Jun 05, 2015 Jun 10, 2015 2 tablets on the first day, then 1 tablet daily for 4 days Vitamin D [facility] [address]-74 1000 UNIT Orally Once a day 1 tablet Topamax [facility] [address]-54 200 mg May 06, 2013 take 1 tablet by Oral route 2 times per day for mood stabilization Lamictal [facility] [address]-54 200 mg May 06, 2013 1 tablet by Oral route 1 time per day in evening for mood stabilization. Loratadine [facility] [address]-31 10 MG Orally Once a day 1 tablet ranitidine [facility] 0 150 mg orally 2 times a day prn heartburn Jun 28, 2014 1 tablet Wellbutrin XL [facility] [address]-63 150 mg Mar 16, 2014 take 1 tablet by Oral route 1 time per day take with 300mg ProAir HFA [facility] [address]-47 90 mcg/actuation Jun 28, 2014 inhale 2 puffs by Inhalation route every 4 hours as needed PRN shortness of breath/ cough Singulair [facility] 29684493121 10 TAKE ONE TABLET BY MOUTH EVERY EVENING Zoloft [facility] [address]-37 100 mg Jun 28, 2014 take 1 tablet (100 mg ) by oral route once daily Procedures Procedure Coding System Code Date Office Visit, Est Pt., Level 3 CPT-4 84982 Jun 05, 2015 [facility] VISIT ESTABLISHED PATIENT CPT-4 G0467 Jun 05, 2015 Vital Signs Date/Time: Jun 05, 2015 Temperature 98.1 F Weight 175.5 lbs Height 72 in BMI 23.80 Index Blood Pressure Diastolic 74 mmHg Blood Pressure Systolic 126 mmHg Cardiac Monitoring Heart Rate 64 bpm Results No Known Results Summary Purpose eClinicalWorks Submission
--- OUTSIDE RECORDS SUMMARY | 2017-10-02 09:13 | XMS REPORT ---
Author Author SURJIT GOLDMAN [facility] eClinicalWorks Address Unknown Phone Unavailable Care Team Providers Care Recreation Specialist Name Role Phone SURJIT GOLDMAN CP Unavailable Allergies No Known Allergies Problems Problem Type Condition Code Onset Dates Condition Status Problem Essential hypertension I10 Active Problem Raynauds syndrome I73.00 Active Problem Insomnia G47.00 Active Problem Hypothyroidism E03.9 Active Problem GERD (gastroesophageal reflux disease) K21.9 Active Problem Schizo affective schizophrenia F25.0 Active Problem Depression F32.9 Active Problem Osteoarthritis M19.90 Active Problem Plantar fascial fibromatosis M72.2 Active Problem Nicotine addiction F17.200 Active Problem Anxiety F41.9 Active Problem Allergic rhinitis J30.9 Active Medications Medication Code System Code Instructions Start Date End Date Status Dosage Meloxicam [facility] [address]-06 15 MG Orally Once a day 1 tablet Results No Known Results Summary Purpose eClinicalWorks Submission
--- OUTSIDE RECORDS SUMMARY | 2017-10-02 09:13 | XMS REPORT ---
Author Author SEA BOYCE Organization [facility] Address [address] [place] [address] Care Team Providers Care Ballast Cleaning Machine Operator Name Role Phone HAO BOYCENETTE Unavailable PROBLEMS Type Condition ICD9-CM Code CCF93-TW Code Onset Dates Condition Status SNOMED Code Problem Osteoarthritis M19.90 Active 807978438 Problem Low back pain, unspecified back pain laterality, unspecified chronicity, with sciatica presence unspecified M54.5 Active 393316431 Problem Slow transit constipation K59.01 Active 02304924 Problem Leonela-menopausal N95.1 Active 574958756138346 Problem Allergic rhinitis J30.9 Active 25720490 Problem Vitamin D deficiency E55.9 Active 00195911 Problem Visit for TB skin test Z11.1 Active 247301018 Problem Bilateral carotid artery disease I77.9 Active 852705697 Problem Fibromyalgia M79.7 Active 772867525 Problem Stage 3 chronic kidney disease N18.3 Active 354157240 Problem GERD (gastroesophageal reflux disease) K21.9 Active 562402727 Problem Hypothyroidism E03.9 Active 88041885 Problem Insomnia G47.00 Active 675918492 Problem Depression F32.9 Active 44481302 Problem Schizo affective schizophrenia F25.0 Active 553598454 Problem Plantar fascial fibromatosis M72.2 Active 43468029 Problem Anxiety F41.9 Active 99911555 Problem Raynauds syndrome I73.00 Active 548350803 Problem Essential hypertension I10 Active 82883820 Problem Nicotine addiction F17.200 Active 12029942 ALLERGIES Substance Reaction Event Type Date Status Silvadene Unknown Drug Allergy Sep, Active Penicillin V Potassium Unknown Drug Allergy Sep, Active Levaquin muscle/joint ache Drug Allergy Sep, Active Feldene Unknown Drug Allergy Sep, Active Cholecalciferol (vitamin D3) 50,000 Unit Capsule threw /medslabs out of whack Non Drug Allergy Sep, Active SOCIAL HISTORY Never Assessed PLAN OF CARE Activity Details Follow Up 3 Months, prn Reason: VITAL SIGNS Height 72 in 2016-09-19 Weight 203.7 lbs 2016-09-19 Temperature 97.5 degrees Fahrenheit 2016-09-19 Heart Rate 72 bpm 2016-09-19 Respiratory Rate 18 2016-09-19 BMI 27.62 kg/m2 2016-09-19 Blood pressure systolic 110 mmHg 2016-09-19 Blood pressure diastolic 70 mmHg 2016-09-19 MEDICATIONS Medication Instructions Dosage Frequency Start Date End Date Duration Status Lamictal 200 mg 1 tablet by Oral route 1 time per day in evening for mood stabilization. Apr, Active Topamax 200 mg take 1 tablet by Oral route 2 times per day for mood stabilization Apr, Active BuPROPion HCl 300 mg take 1 tablet by Oral route 1 time per day take with 150mg Mar, Active Zoloft 100 MG take 1 tablet (100 mg) by oral route once daily Jun, Active BuPROPion HCl (XL) 150 MG Orally Once a day 1 tablet in the morning 24h Active ProAir HFA 90 mcg/actuation inhale 2 puffs by Inhalation route every 4 hours as needed PRN shortness of breath/cough Jun, Active Loratadine 10 MG Orally Once a day 1 tablet 24h Active Singulair 10 Orally Once a day TAKE ONE TABLET BY MOUTH EVERY EVENING 24h 14 days Active Meloxicam 15 TAKE ONE TABLET BY MOUTH DAILY 30 Active Rhinocort Allergy 32 MCG/ACT Nasally Once a day 1 puffs in each nostril 24h Jul, Active Ranitidine HCl 150 TAKE ONE TABLET BY MOUTH TWICE A DAY NEEDED FOR HEARTBURN FOR 14 DAYS 15 Active Lisinopril 5 mg Orally Once a day 1 tablet 24h Jun, Active Levothyroxine Sodium 100 MCG Orally Once a day 1 tablet on an empty stomach in the morning 24h Active Vitamin D 1000 UNIT Orally Once a day 1 tablet 24h Active Melatonin 5 mg 0.5 Tablet by Oral route 1 time per day at night November Active RESULTS No Results PROCEDURES Procedure Date Ordered Result Body Site [facility] VISIT ESTABLISHED PATIENT September 19, 2016 IMMUNIZATIONS No Known Immunizations MEDICAL (GENERAL) HISTORY [...]
--- OUTSIDE RECORDS SUMMARY | 2017-10-02 09:13 | XMS REPORT ---
Author JULIA De La Rosa [facility] eClinicalWorks Address Unknown Phone Unavailable Care Team Providers Care Racing Board Marker Name Role Phone JULIA GARCIA CP Unavailable Allergies No Known Allergies Problems [...] K21.9 Active Problem Essential hypertension I10 Active Assessment Schizo affective schizophrenia F25.0 Active Problem Insomnia G47.00 Active Problem Hypothyroidism E03.9 Active Problem Raynauds syndrome I73.00 Active Medications No Known Medications Procedures Procedure Coding System Code Date Psych diagnostic evaluation, established patient CPT-4 28100 Mar 01, 2016 [facility] VISIT MENTAL HEALTH ESTAB PT CPT-4 G0470 Mar 01, 2016 Results No Known Results Summary Purpose eClinicalWorks Submission
--- OUTSIDE RECORDS SUMMARY | 2017-10-02 09:13 | XMS REPORT ---
Author SEA Brown [facility] eClinicalWorks Address Unknown Phone Unavailable Care Team Providers Care System Dispatcher Name Role Phone SEA BOYCE Unavailable Allergies [...] Active Problem Raynauds syndrome I73.00 Active Medications Medication Code System Code Instructions Start Date End Date Status Dosage Levothyroxine Sodium [facility] 51845179137 100 TAKE ONE TABLET BY MOUTH DAILY Lisinopril [facility] [address]-69 5 mg Orally Once a day Jun 28, 2014 1 tablet Results No Known Results Summary Purpose eClinicalWorks Submission
--- OUTSIDE RECORDS SUMMARY | 2017-10-02 09:13 | XMS REPORT ---
Author Author SEA BOYCE Organization [facility] Address [address] [place] [address] Care Team Providers Care Heavy Mobile Equipment Repairer Name Role Phone SEA BOYCE Unavailable PROBLEMS Type Condition ICD9-CM Code ALJ02-NM Code Onset Dates Condition Status SNOMED Code Problem Plantar fascial fibromatosis M72.2 Active 07526165 Problem Anxiety F41.9 Active 66970932 Problem Allergic rhinitis J30.9 Active 81988091 Problem Slow transit constipation K59.01 Active 68935741 Problem Bilateral carotid artery disease I77.9 Active 932760559 Problem Schizo affective schizophrenia F25.0 Active 067251751 Problem Depression F32.9 Active 39120141 Problem Low back pain, unspecified back pain laterality, unspecified chronicity, with sciatica presence unspecified M54.5 Active 336174865 Problem Osteoarthritis M19.90 Active 436795178 Problem Essential hypertension I10 Active 62032042 Problem Insomnia G47.00 Active 094348097 Problem Hypothyroidism E03.9 Active 79370790 Problem Raynauds syndrome I73.00 Active 927905199 Problem GERD (gastroesophageal reflux disease) K21.9 Active 451226244 Problem Nicotine addiction F17.200 Active 00263313 ALLERGIES Unknown Allergies SOCIAL HISTORY No smoking Hx information available PLAN OF CARE VITAL SIGNS MEDICATIONS Medication Instructions Dosage Frequency Start Date End Date Duration Status Singulair 10 Orally Once a day TAKE ONE TABLET BY MOUTH EVERY EVENING 24h 14 days Active Flonase Allergy Relief 50 MCG/ACT Nasally Once a day 1 spray in each nostril 24h Jun, 30 day(s) Active ranitidine 150 mg orally 2 times a day prn heartburn 1 tablet Jun, Jun, 14 days Active RESULTS No Results PROCEDURES No Known procedures IMMUNIZATIONS No Known Immunizations
--- OUTSIDE RECORDS SUMMARY | 2017-10-02 09:13 | XMS REPORT ---
Author Author SEA BOYCE Organization [facility] Address [address] [place] [address] Care Team Providers Care Instructor Pilot Name Role Phone CARLI SEA Unavailable PROBLEMS Type Condition ICD9-CM Code ZYE29-CF Code Onset Dates Condition Status SNOMED Code Problem Osteoarthritis M19.90 Active 007701596 Problem Low back pain, unspecified back pain laterality, unspecified chronicity, with sciatica presence unspecified M54.5 Active 313437575 Problem Slow transit constipation K59.01 Active 23126386 Problem Leonela-menopausal N95.1 Active 157355729858650 Problem Allergic rhinitis J30.9 Active 23545216 Problem Vitamin D deficiency E55.9 Active 92135455 Problem Visit for TB skin test Z11.1 Active 908800890 Problem Bilateral carotid artery disease I77.9 Active 244860250 Problem Fibromyalgia M79.7 Active 216419076 Problem Stage 3 chronic kidney disease N18.3 Active 134990380 Problem GERD (gastroesophageal reflux disease) K21.9 Active 148730907 Problem Hypothyroidism E03.9 Active 85531170 Problem Insomnia G47.00 Active 515027479 Problem Depression F32.9 Active 70153662 Problem Schizo affective schizophrenia F25.0 Active 949444104 Problem Plantar fascial fibromatosis M72.2 Active 44130555 Problem Anxiety F41.9 Active 79091525 Problem Raynauds syndrome I73.00 Active 068917561 Problem Essential hypertension I10 Active 71279023 Problem Nicotine addiction F17.200 Active 02070336 ALLERGIES No Information SOCIAL HISTORY Never Assessed PLAN OF CARE VITAL SIGNS MEDICATIONS Medication Instructions Dosage Frequency Start Date End Date Duration Status EQ Nasal [place] 0.05 % Nasally Twice a day 2 drops as needed 12h 14 Sep, 2016 Active RESULTS No Results PROCEDURES No Known [...]
--- OUTSIDE RECORDS SUMMARY | 2017-10-02 09:13 | XMS REPORT ---
Author Author CECILY SALOMON Organization [facility] Address [address] [place] [address] Care Team Providers Care Infectious Disease Physician Name Role Phone CECILY SALOMON Unavailable PROBLEMS Type Condition ICD9-CM Code JSI48-SB Code Onset Dates Condition Status SNOMED Code Problem Osteoarthritis M19.90 Active 822446128 Problem Low back pain, unspecified back pain laterality, unspecified chronicity, with sciatica presence unspecified M54.5 Active 400066374 Problem Slow transit constipation K59.01 Active 71091095 Problem Leonela-menopausal N95.1 Active 067679082320837 Problem Allergic rhinitis J30.9 Active 80847588 Problem Vitamin D deficiency E55.9 Active 93159072 Problem Visit for TB skin test Z11.1 Active 005338632 Problem Bilateral carotid artery disease I77.9 Active 497746546 Problem Fibromyalgia M79.7 Active 236634438 Problem Stage 3 chronic kidney disease N18.3 Active 180886670 Problem GERD (gastroesophageal reflux disease) K21.9 Active 620230550 Problem Hypothyroidism E03.9 Active 61608116 Problem Insomnia G47.00 Active 798206784 Problem Depression F32.9 Active 04465443 Problem Schizo affective schizophrenia F25.0 Active 867589962 Problem Plantar fascial fibromatosis M72.2 Active 44605235 Problem Anxiety F41.9 Active 91536669 Problem Raynauds syndrome I73.00 Active 721506384 Problem Essential hypertension I10 Active 37765754 Problem Nicotine addiction F17.200 Active 96827061 ALLERGIES Substance Reaction Event Type Date Status Silvadene Unknown Drug Allergy Jul, Active Penicillin V Potassium Unknown Drug Allergy Jul, Active Levaquin muscle/joint ache Drug Allergy Jul, Active Feldene Unknown Drug Allergy Jul, Active Cholecalciferol (vitamin D3) 50,000 Unit Capsule threw /medslabs out of whack Non Drug Allergy Jul, Active SOCIAL HISTORY No smoking Hx information available PLAN OF CARE Activity Details Follow Up prn Reason: VITAL SIGNS Height 72 in 2016-07-17 Weight 196.4 lbs 2016-07-17 Temperature 98.0 degrees Fahrenheit 2016-07-17 Heart Rate 80 bpm 2016-07-17 Respiratory Rate 18 2016-07-17 BMI 26.63 kg/m2 2016-07-17 Blood pressure systolic 132 mmHg 2016-07-17 Blood pressure diastolic 74 mmHg 2016-07-17 MEDICATIONS Medication Instructions Dosage Frequency Start Date End Date Duration Status Lamictal 200 mg 1 tablet by Oral route 1 time per day in evening for mood stabilization. Apr, Active Lubiprostone 8 MCG Orally Twice a day 1 capsule with food 12h Active BuPROPion HCl 300 mg take 1 tablet by Oral route 1 time per day take with 150mg Mar, Active Zoloft 100 MG take 1 tablet (100 mg) by oral route once daily Jun, Active Topamax 200 mg take 1 tablet by Oral route 2 times per day for mood stabilization Apr, Active Melatonin 5 mg 0.5 Tablet by Oral route 1 time per day at night November Active Mucinex 600 MG Orally every 12 hrs 1 tablet as needed 12h Jul, Aug, 30 days Active Flonase Allergy Relief 50 MCG/ACT Nasally Once a day 1 spray in each nostril 24h Jun, 30 day(s) Active Meloxicam 15 Orally Once a day 1 tablet 24h 30 Active Lisinopril 5 mg Orally Once a day 1 tablet 24h Jun, Active Meloxicam 15 MG Orally Once a day 1 tablet 24h Active Vitamin D 1000 UNIT Orally Once a day 1 tablet 24h Active Doxycycline Hyclate 100 MG Orally every 12 hrs 1 capsule 12h Jul, Jul, 10 days Active Levothyroxine Sodium 100 TAKE ONE TABLET BY MOUTH DAILY 30 Active Loratadine 10 MG Orally Once a day 1 tablet 24h Active Pantoprazole Sodium 40 mg Orally Once a day 1 tablet 24h Jun, 30 day(s) Active ProAir HFA 90 mcg/actuation inhale 2 puffs by Inhalation route every 4 hours as needed PRN shortness of breath/cough Jun, Active Singulair 10 Orally Once a day TAKE ONE TABLET BY MOUTH EVERY EVENING 24h 14 days Active RESULTS No Results PROCEDURES Procedure Date Ordered Related Diagnosis Body Site [facility] VISIT ESTABLISHED PATIENT Jul 17, 2016 Office Visit, Est Pt., Level 3 Jul 17, 2016 IMMUNIZATIONS No Known Immunizations
--- OUTSIDE RECORDS SUMMARY | 2017-10-02 09:14 | XMS REPORT ---
Author Author SEA BOYCE [facility] Address [address] [place] [address] Care Team Providers Care Pin Machine Tender Name Role Phone CHRIS BOYCEE Unavailable PROBLEMS Type Condition ICD9-CM Code MLI46-FL Code Onset Dates Condition Status SNOMED Code Problem Osteoarthritis M19.90 Active 417887739 Problem Low back pain, unspecified back pain laterality, unspecified chronicity, with sciatica presence unspecified M54.5 Active 086153555 Problem Slow transit constipation K59.01 Active 46904021 Problem Leonela-menopausal N95.1 Active 935679331415590 Problem Allergic rhinitis J30.9 Active 20493252 Problem Vitamin D deficiency E55.9 Active 61394713 Problem Visit for TB skin test Z11.1 Active 853673050 Problem Bilateral carotid artery disease I77.9 Active 494808426 Problem Fibromyalgia M79.7 Active 618930463 Problem Stage 3 chronic kidney disease N18.3 Active 564039006 Problem GERD (gastroesophageal reflux disease) K21.9 Active 185335561 Problem Hypothyroidism E03.9 Active 00184558 Problem Insomnia G47.00 Active 355593769 Problem Depression F32.9 Active 70572145 Problem Schizo affective schizophrenia F25.0 Active 337040697 Problem Plantar fascial fibromatosis M72.2 Active 02162107 Problem Anxiety F41.9 Active 10366156 Problem Raynauds syndrome I73.00 Active 794306565 Problem Essential hypertension I10 Active 83118259 Problem Nicotine addiction F17.200 Active 48141004 ALLERGIES No Information SOCIAL HISTORY Never Assessed PLAN OF CARE Activity Details Pending Test CREATININE, SERUM VITAL SIGNS MEDICATIONS Unknown Medications RESULTS Name Result Date Reference Range URINE CREATININE CLEARANCE 24HR 2016-10-04 Creatinine, Serum 1.69 0.57-1.00 eGFR If NonAfricn Am 35 >59 eGFR If Africn Am 41 >59 Creatinine, Urine 28.6 Not Estab. Creatinine, Ur 24hr [phone] Creatinine Clearance 42 88-128 PROCEDURES Procedure Date Ordered Result Body Site [facility] October 04, 2016 VENIPUNCT, ROUTINE* October 04, 2016 IMMUNIZATIONS No Known Immunizations MEDICAL (GENERAL) [...]
--- OUTSIDE RECORDS SUMMARY | 2017-10-02 09:14 | XMS REPORT ---
Author Author SURJIT GOLDMAN Organization [employer] Address Unknown Phone Unavailable Care Team Providers Care Accounts Receivable Assistant Name Role Phone SURJIT GOLDMAN CP Unavailable [...] Active Problem Allergic rhinitis J30.9 Active Assessment Allergic rhinitis J30.9 Active Assessment Essential hypertension I10 Active Assessment Osteoarthritis M19.90 Active Problem Hypothyroidism E03.9 Active Assessment Hypothyroidism E03.9 Active Problem GERD (gastroesophageal reflux disease) K21.9 Active Medications Medication Code System Code Instructions Start Date End Date Status Dosage Meloxicam [facility] 59587064041 15 Orally Once a day TAKE ONE TABLET BY MOUTH DAILY Lisinopril [facility] [address]-81 5 MG Orally Once a day Jun 28, 2014 1 tablet levothyroxine ND 0 88 mcg orally Once a day Jun 28, 2014 take 1 tablet Singulair [facility] 40305008627 10 Orally Once a day TAKE ONE TABLET BY MOUTH EVERY EVENING Results No Known Results Summary Purpose [employer] Submission
--- OUTSIDE RECORDS SUMMARY | 2017-10-02 09:14 | XMS REPORT ---
Author Author SEA BOYCE [facility] [employer] Address Unknown Phone Unavailable Care Team Providers Care Reordering Clerk Name Role Phone SEA BOYCE Unavailable Allergies [...] Start Date End Date Status Dosage Meloxicam [facility] [address]-12 15 MG Orally Once a day 1 tablet Results No Known Results Summary Purpose [employer] Submission
--- OUTSIDE RECORDS SUMMARY | 2017-10-02 09:14 | XMS REPORT ---
Author Author LINDY GALINDO Organization [employer] Address Unknown Phone Unavailable Care Team Providers Care Agricultural And Forestry Supervisor Name Role Phone LINDY GALINDO CP Unavailable Allergies No Known Allergies Problems Problem Type Condition Code Onset Dates Condition Status Problem Unspecified [...] Start Date End Date Status Dosage ranitidine NDC 0 150 mg orally 2 times a day prn heartburn Jun 28, 2014 1 tablet Results No Known Results Summary Purpose [employer] Submission
--- OUTSIDE RECORDS SUMMARY | 2017-10-02 09:14 | XMS REPORT ---
Author Author LINDY GALINDO Organization [employer] Address Unknown Phone Unavailable Care Team Providers Care Social Media Intern Name Role Phone LINDY GALINDO CP Unavailable [...] in joint, upper arm 719.42 Active Medications No Known Medications Results No Known Results Summary Purpose [employer] Submission
--- OUTSIDE RECORDS SUMMARY | 2017-10-02 09:14 | XMS REPORT ---
Author Author QUYEN TURNER [facility] Address [address] [place] [address] Care Team Providers Care Raisin Washer Name Role Phone QUYEN TURNER Unavailable PROBLEMS Type Condition ICD9-CM Code XLF14-YC Code Onset Dates Condition Status SNOMED Code Problem Osteoarthritis M19.90 Active 821013415 Problem Low back pain, unspecified back pain laterality, unspecified chronicity, with sciatica presence unspecified M54.5 Active 463835469 Problem Slow transit constipation K59.01 Active 68572277 Problem Leonela-menopausal N95.1 Active 237904118708329 Problem Allergic rhinitis J30.9 Active 26827110 Problem Vitamin D deficiency E55.9 Active 53126193 Problem Visit for TB skin test Z11.1 Active 211507212 Problem Bilateral carotid artery disease I77.9 Active 565925124 Problem Fibromyalgia M79.7 Active 931678589 Problem Stage 3 chronic kidney disease N18.3 Active 357266521 Problem GERD (gastroesophageal reflux disease) K21.9 Active 975828312 Problem Hypothyroidism E03.9 Active 42823586 Problem Insomnia G47.00 Active 315988139 Problem Depression F32.9 Active 23154434 Problem Schizo affective schizophrenia F25.0 Active 224447173 Problem Plantar fascial fibromatosis M72.2 Active 68082559 Problem Anxiety F41.9 Active 46509263 Problem Raynauds syndrome I73.00 Active 611446821 Problem Essential hypertension I10 Active 81730899 Problem Nicotine addiction F17.200 Active 60960569 ALLERGIES Substance Reaction Event Type Date Status [...] PLAN OF CARE Activity Details Follow Up 48-72 hours. 48-72 hours Reason: VITAL SIGNS Height 72 in 2016-08-05 Weight 202.3 lbs 2016-08-05 Temperature 98.3 degrees Fahrenheit 2016-08-05 Heart Rate 64 bpm 2016-08-05 Respiratory Rate 18 2016-08-05 Oximetry on room air:97 % 2016-08-05 BMI 27.43 kg/m2 2016-08-05 Blood pressure systolic 150 mmHg 2016-08-05 Blood pressure diastolic 78 mmHg 2016-08-05 MEDICATIONS Medication Instructions Dosage Frequency Start Date End Date Duration Status BuPROPion HCl (XL) 150 MG Orally Once a day 1 tablet in the morning 24h Active ProAir HFA 90 mcg/actuation inhale 2 puffs by Inhalation route every 4 hours as needed PRN shortness of breath/cough Jun, Active Melatonin 5 mg 0.5 Tablet by Oral route 1 time per day at night November Active Rhinocort Allergy 32 MCG/ACT Nasally Once a day 1 puffs in each nostril 24h Jul, Active BuPROPion HCl 300 mg take 1 tablet by Oral route 1 time per day take with 150mg Mar, Active Zoloft 100 MG take 1 tablet (100 mg) by oral route once daily Jun, Active Pantoprazole Sodium 40 mg Orally Once a day 1 tablet 24h Jun, 30 day(s) Active Vitamin D 1000 UNIT Orally Once a day 1 tablet 24h Active Levothyroxine Sodium 100 MCG Orally Once a day 1 tablet on an empty stomach in the morning 24h Active Meloxicam 15 Orally Once a day 1 tablet 24h 30 Active Lisinopril 5 mg Orally Once a day 1 tablet 24h Jun, Active Loratadine 10 MG Orally Once a day 1 tablet 24h Active Singulair 10 Orally Once a day TAKE ONE TABLET BY MOUTH EVERY EVENING 24h 14 days Active Lamictal 200 mg 1 tablet by Oral route 1 time per day in evening for mood stabilization. Apr, Active Topamax 200 mg take 1 tablet by Oral route 2 times per day for mood stabilization Apr, Active RESULTS No Results PROCEDURES Procedure Date Ordered Related Diagnosis Body Site TB INTRADERMAL 2016-08-05 N/A MEASURE BLOOD OXYGEN LEVEL Aug 05, 2016 TB INTRADERMAL TEST Aug 05, 2016 TB INTRADERMAL TEST Aug 05, 2016 Office Visit, Est Pt., Level 3 Aug 05, 2016 [facility] VISIT ESTABLISHED PATIENT Aug 05, 2016 IMMUNIZATIONS No Known Immunizations
[2017-10-02 09:40] LABS: BILIRUBIN,URINE NEGATIVE (NEGATIVE); CLARITY,URINE CLEAR; COLOR,URINE YELLOW; GLUCOSE, URINE (UA) NEGATIVE (NEGATIVE); KETONES,URINE NEGATIVE (NEGATIVE); LEUKOCYTE ESTERASE ,URINE NEGATIVE (NEGATIVE); NITRITE,URINE NEGATIVE (NEGATIVE); PH,URINE 6 (5-9); PROTEIN,URINE NEGATIVE (NEGATIVE); UROBILINOGEN,URINE NORMAL (NORMAL)
[2017-10-02 09:57] LABS: BACTERIA,URINE TRACE /HPF
[2017-10-02 09:58] LABS: SQUAMOUS EPITHELIAL CELL,UR RARE /HPF
--- NOTE | 2017-10-02 10:36 | ED Back Pain ---
General Chief Complaint: Back Problems Stated Complaint: BACK PAIN Nursing Triage Note: c/o pain across mid back. Pt woke up with pain this morning. Nursing Sepsis Screen: No Definite Risk Source of Information: Patient Exam Limitations: No Limitations History of Present Illness Date Seen by Provider: Oct 02, 2017 Time Seen by Provider: 10:33 Initial Comments The patient is a 47-year-old white female who presents today with complaints of low back pain. She reports no injury. She apparently awakened with this pain. She has had this at intervals going back to the . She also reports that she has chronic kidney disease and sees Dr. Mtz a java j2ee architect in [place]. This has been rated at stage III. She has not had any urinary symptoms and no previous history of kidney stone. Timing/Duration: 4-6 Hours Pain/Injury Location: Back Allergies and Home Medications Allergies Coded Allergies: pantoprazole (Unverified Allergy, Mild, 11/17/09) sulfamethoxazole (Unverified Allergy, Mild, 11/17/09) trimethoprim (Unverified Allergy, Mild, 11/17/09) Penicillins (Verified Allergy, Unknown, 08/16/05) cephalexin (Verified Allergy, Unknown, 08/16/05) erythromycin base (Verified Allergy, Unknown, 01/23/06) piroxicam (Verified Allergy, Unknown, 01/23/06) silver sulfadiazine (Verified Allergy, Unknown, 08/16/05) tetracycline (Verified Allergy, Unknown, 01/23/06) epinephrine (Unverified Adverse Reaction, Unknown, 05/28/10) Uncoded Allergies: ZIPSOR (Allergy, Mild, 11/17/09) MENTAL MOOD CHANGES (Adverse Reaction, Unknown, CAUSE TO HAVE SEVERE MOOD CHANGES, 07/07/15) Home Medications Albuterol Sulfate 1 Puff Puff, 2 PUFF IH Q6H, (Reported) Bupropion Hcl 300 Mg Tab.sr.24h, 300 MG PO DAILY, (Reported) Cholecalciferol 1,000 Unit Tablet, 1,000 IU PO DAILY, (Reported) Fluticasone Propionate 9.9 Ml [place].susp, 2 SPRAYS NSEACH DAILY Prescribed by: SURENDRA DE LA ROSA on 07/07/15 1136 Lamotrigine 100 Mg Tablet, 200 MG PO DAILY, (Reported) Levothyroxine Sodium 88 Mcg Tablet, 88 MCG PO DAILY, (Reported) Lisinopril 5 Mg Tablet, 1 EACH PO DAILY, (Reported) Loratadine 10 Mg Capsule, 1 TAB PO DAILY, (Reported) Meloxicam 15 Mg Tablet, 1 EACH PO DAILY, (Reported) Montelukast Sodium 10 Mg Tablet, 1 TAB PO DAILY, (Reported) Pregabalin 50 Mg Cap, 50 MG PO BID, (Reported) Ranitidine Hcl 150 Mg Tablet, 1 TAB PO DAILY, (Reported) Topiramate 200 Mg Tablet, 200 MG PO BID, (Reported) Zaleplon 10 Mg Capsule, 1 TAB PO HS, (Reported) Patient Home Medication List Home Medication List Reviewed: Yes Constitutional: see HPI EENTM: no symptoms reported Respiratory: no symptoms reported Cardiovascular: no symptoms reported Gastrointestinal: no symptoms reported Musculoskeletal: see HPI, back pain Skin: no symptoms reported Psychiatric/Neurological: No Symptoms Reported Past Gcbrxch-Joyqye-Zegoxl Hx Patient Social History Alcohol Use: Denies Use Recreational Drug Use: No Smoking Status: Former Smoker Recent Foreign Travel: No Contact w/Someone Who Travel: No Recent Infectious Disease Expo: No Recent Hopitalizations: Yes (2005) Immunizations Up To Date Tetanus Booster (TDap): Unknown Surgeries History of Surgeries: Yes (2005 apendectomy) Surgeries: Appendectomy, Gallbladder Respiratory History of Respiratory Disorde: Yes Respiratory Disorders: Asthma Cardiovascular History of Cardiac Disorders: Yes Cardiac Disorders: Hypertension Neurological History of Neurological Disord: No Reproductive System Hx Reproductive Disorders: Yes (son born with cleft lip & palate, crebral palsy , and MR) Genitourinary Genitourinary Disorders: Renal Failure Gastrointestinal History of Gastrointestinal Di: No Musculoskeletal History of Musculoskeletal Dis: Yes (RAYNAUD'S) Musculoskeletal Disorders: Fibromyalgia Endocrine History of Endocrine Disorders: Yes (VITAMIN D DEFICIENCY) Endocrine Disorders: Hypothyroidsim Cancer History of Cancer: No 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) Behavioral Health Disorders: Anxiety, Depression Integumentary History of Skin or Integumenta: Yes (CURRENT COMPLAINT) Blood Transfusions History of Blood Disorders: Yes (Chronic leukocytosis) Physical Exam Vital Signs Vital Signs - First Documented 10/02/17 09:00 Temp 97.5 Pulse 70 Resp 16 B/P (MAP) 176/78 (110) Pulse Ox 98 O2 Delivery Room Air Capillary Refill : Less Than 3 Seconds General Appearance: Mild Distress, Moderate Distress HEENT: Normal ENT Inspection Neck: Normal Inspection Cardiovascular: Regular Rate, Rhythm, No Edema, No Gallop, No JVD, No Murmur, Normal Peripheral Pulses Respiratory: Chest Non Tender, Lungs Clear, Normal Breath Sounds, No Accessory Muscle Use, No Respiratory Distress, Accessory Muscle Use Gastrointestinal: Normal Bowel Sounds, No Organomegaly, No Pulsatile Mass, Non Tender, Soft Extremity: Normal Capillary Refill, Normal Inspection, Normal Range of Motion, Non Tender, No Calf Tenderness, No Pedal Edema, Calf Tenderness Neurologic/Psychiatric: Alert, Oriented x3, No Motor/Sensory Deficits, Normal Mood/Affect, concrete bucket loader II-XII Norm as Tested, Abnormal Cerebellar Tests Skin: Normal Color, Warm/Dry, Cool, Cyanosis Lymphatic: No Adenopathy Comments She prefers a position anteflexed at the pelvis which apparently relieves part of her pain. Progress/Results/Core Measures Results/Orders Lab Results Laboratory Tests Test 10/02/17 09:20 10/02/17 10:44 Range/Units Urine Color YELLOW Urine Clarity CLEAR Urine pH 6 5-9 Urine Specific [place] 1.005 L 1.016-1.022 Urine Protein NEGATIVE NEGATIVE Urine Glucose (UA) NEGATIVE NEGATIVE Urine Ketones NEGATIVE NEGATIVE Urine Nitrite NEGATIVE NEGATIVE Urine Bilirubin NEGATIVE NEGATIVE Urine Urobilinogen NORMAL NORMAL MG/DL Urine Leukocyte Esterase NEGATIVE NEGATIVE Urine RBC (Auto) NEGATIVE NEGATIVE Urine RBC NONE /HPF Urine WBC NONE /HPF Urine Squamous Epithelial Cells RARE /HPF Urine Crystals NONE /LPF Urine Bacteria TRACE /HPF Urine Casts NONE /LPF Urine Mucus NEGATIVE /LPF Urine Culture Indicated NO White Blood Count 12.2 H 4.3-11.0 10^3/uL Red Blood Count 4.20 L 4.35-5.85 10^6/uL Hemoglobin 13.1 11.5-16.0 G/DL Hematocrit 39 35-52 % Mean Corpuscular Volume 94 80-99 FL Mean Corpuscular Hemoglobin 31 25-34 PG Mean Corpuscular Hemoglobin Concent 33 32-36 G/DL Red Cell Distribution Width 13.5 10.0-14.5 % Platelet Count 301 130-400 10^3/uL Mean Platelet Volume 10.9 H 7.4-10.4 FL Neutrophils (%) (Auto) 68 42-75 % Lymphocytes (%) (Auto) 21 12-44 % Monocytes (%) (Auto) 9 0-12 % Eosinophils (%) (Auto) 3 0-10 % Basophils (%) (Auto) 0 0-10 % Neutrophils # (Auto) 8.2 H 1.8-7.8 X 10^3 Lymphocytes # (Auto) 2.5 1.0-4.0 X 10^3 Monocytes # (Auto) 1.1 H 0.0-1.0 X 10^3 Eosinophils # (Auto) 0.4 H 0.0-0.3 10^3/uL Basophils # (Auto) 0.0 0.0-0.1 10^3/uL Sodium Level 138 135-145 MMOL/L Potassium Level 4.2 3.6-5.0 MMOL/L Chloride Level 103 98-107 MMOL/L Carbon Dioxide Level 26 21-32 MMOL/L Anion Gap 9 5-14 MMOL/L Blood Urea Nitrogen 15 7-18 MG/DL Creatinine 1.59 H 0.60-1.30 MG/DL Estimat Glomerular Filtration Rate 35 BUN/Creatinine Ratio 9 Glucose Level 100 70-105 MG/DL Calcium Level 9.7 8.5-10.1 MG/DL Total Bilirubin 0.5 0.1-1.0 MG/DL Aspartate Amino Transf (AST/SGOT) 16 5-34 U/L Alanine Aminotransferase (ALT/SGPT) 16 0-55 U/L Alkaline Phosphatase 111 40-136 U/L Total Protein 7.7 6.4-8.2 GM/DL Albumin 4.4 3.2-4.5 GM/DL My Orders Orders - YUMIKO HOFF MD Ua Culture If Indicated (10/02/17 09:33) Cbc With Automated Diff (10/02/17 10:27) Comprehensive Metabolic Panel (10/02/17 10:27) Lumbar Spine - 2-3 Views (10/02/17 10:27) Vital Signs/I&O Vital Sign - Last 12Hours 10/02/17 09:00 Temp 97.5 Pulse 70 Resp 16 B/P (MAP) 176/78 (110) Pulse Ox 98 O2 Delivery Room Air Blood Pressure Mean: 110 Departure Communication (Admissions) Progress Notes Lumbar spine films showed significant changes that in the lumbar spine with early scoliotic changes, arthritic spurs and narrowing of the disc space at L3 4. Impression Impression: Primary Impression: degenerative changes lumbar spine Disposition: 01 HOME, SELF-CARE Condition: Stable/Unchanged Departure-Patient Inst. Decision time for Depature: 12:20 Referrals: MADELYN WILLSON MD (PCP/Family) Primary Care Physician Patient Instructions: Low Back Pain (DC) Add. Discharge Instructions: All discharge instructions reviewed with patient and/or family. Voiced understanding. Apply heat to the area. Tramadol for pain See your provider to arrange physical therapy for core strengthening. Scripts Tramadol HCl (Tramadol HCl) 50 Mg Tablet 50 MG PO 4 TIMES A DAY, #20 TAB Prov: YUMIKO HOFF MD 10/02/17 YUMIKO HOFF MD Oct 02, 2017 10:36
[2017-10-02 10:50] LABS: BASOPHILS % (AUTO) 0 % (0-10); EOSINOPHILS # (AUTO) 0.4 10^3/uL (0.0-0.3); EOSINOPHILS % (AUTO) 3 % (0-10); HEMATOCRIT 39 % (35-52); HEMOGLOBIN 13.1 G/DL (11.5-16.0); LYMPHOCYTES # (AUTO) 2.5 X 10^3 (1.0-4.0); LYMPHOCYTES % (AUTO) 21 % (12-44); MEAN CORPUSCULAR HEMOGLOBIN 31 PG (25-34); MEAN CORPUSCULAR HGB CONC 33 G/DL (32-36); MEAN CORPUSCULAR VOLUME 94 FL (80-99); MEAN PLATELET VOLUME 10.9 FL (7.4-10.4); MONOCYTES # (AUTO) 1.1 X 10^3 (0.0-1.0); MONOCYTES % (AUTO) 9 % (0-12); NEUTROPHILS # (AUTO) 8.2 X 10^3 (1.8-7.8); NEUTROPHILS % (AUTO) 68 % (42-75); PLATELET COUNT 301 10^3/uL (130-400); RED CELL DISTRIBUTION WIDTH 13.5 % (10.0-14.5); WHITE BLOOD COUNT 12.2 10^3/uL (4.3-11.0)
[2017-10-02 11:07] LABS: ALBUMIN 4.4 GM/DL (3.2-4.5); BILIRUBIN,TOTAL 0.5 MG/DL (0.1-1.0); CALCIUM 9.7 MG/DL (8.5-10.1); CREATININE SERUM 1.59 MG/DL (0.60-1.30); POTASSIUM 4.2 MMOL/L (3.6-5.0); TOTAL PROTEIN 7.7 GM/DL (6.4-8.2)
--- NOTE | 2017-10-02 11:15 | Diagnostic Imaging Report ---
CLINICAL INDICATION: Patient states when she got out of the bed this morning she has had severe pain in lower back. EXAM: X-ray of the lumbar spine, three views. COMPARISON: None. FINDINGS: There is no acute lumbar spine fracture. There is localized dextroscoliosis of lumbar spine at the L3 level with associated roughly 1.4 cm of lateral subluxation of L3 on L4. There is severe loss of intervertebral disc height and endplate sclerosis and spurring involving the L3-L4 level. There is otherwise mild to moderate degenerative disease of the thoracolumbar spine. The sacroiliac joints, sacrum, and visualized portions of the pelvis are unremarkable. Surgical clips are seen overlying the right upper quadrant which could be related to cholecystectomy changes. IMPRESSION: 1: There is no evidence of acute lumbar spine fracture. 2: There is localized dextroscoliosis of lumbar spine with severe degenerative changes at the L3-L4 level and right lateral subluxation of L3 on L4. Dictated by: Dictated on workstation # [id number]
[2017-10-02] MEDS ORDERED: TRAM50TA2 PO (12:37)
[2017-10-02 12:45] VITALS: BP 152/70
== END 2017-10-02 12:45 | disposition home or self-care (01) ==
LOC: EDUNIT# 09:00 → ER 09:01
DX: M47.816 Spondylosis without myelopathy or radiculopathy, lumbar region (principal); J45.909 Unspecified asthma, uncomplicated; I10 Essential (primary) hypertension; E03.9 Hypothyroidism, unspecified; F41.9 Anxiety disorder, unspecified; F32.9 Major depressive disorder, single episode, unspecified; N18.9 Chronic kidney disease, unspecified; D72.829 Elevated white blood cell count, unspecified; G80.9 Cerebral palsy, unspecified; Z88.1 Allergy status to other antibiotic agents; Z88.0 Allergy status to penicillin; Z88.2 Allergy status to sulfonamides; Z88.8 Allergy status to other drugs, medicaments and biological substances; Z79.51 Long term (current) use of inhaled steroids; Z87.891 Personal history of nicotine dependence; Z90.49 Acquired absence of other specified parts of digestive tract
CPT/HCPCS: 36415; 72100; 80053; 81000; 85025; 99282

== ENCOUNTER 2019-04-22 14:00 | Outpatient (CLI) | payer MEDICARE, MEDICAID ==
[~2019-04-22] VITALS: Ht 177 cm; Wt 111.3 kg
[~2019-04-22 14:00] MED LIST changes: +TRAM50TA2 PO
[2019-04-22] MEDS ORDERED: LISI-556 PO (14:04)
[2019-04-22] MEDS ORDERED: LAMO150T2 PO (14:04)
[2019-04-22] MEDS ORDERED: SERT100T8 PO (14:04)
[2019-04-22] MEDS ORDERED: BACL10TA PO (14:04)
[2019-04-22] MEDS ORDERED: MONT10TA24 PO (14:04)
[2019-04-22] MEDS ORDERED: BUPR300T51 PO (14:04)
[2019-04-22] MEDS ORDERED: RT-ALBUINH IH (14:04)
[2019-04-22] MEDS ORDERED: CHOL10003 PO (14:04)
[2019-04-22] MEDS ORDERED: FERR-84 PO (14:04)
[2019-04-22] MEDS ORDERED: GBPN600T PO (14:04)
[2019-04-22] MEDS ORDERED: LORA10TA7 PO (14:04)
[2019-04-22] MEDS ORDERED: RANI150T11 PO (14:04)
[2019-04-22] MEDS ORDERED: LEVO112T55 PO (14:04)
[2019-04-22] MEDS ORDERED: MULT-178 PO (14:04)
[2019-04-22] MEDS ORDERED: MELA5TAB14 PO (14:04)
== END 2019-04-22 14:13 | disposition home or self-care (01) ==
LOC: PREOP 14:00
PROVIDERS: ATTEND Surgery
DX: Z01.818 Encounter for other preprocedural examination (principal)

== ENCOUNTER → 2019-06-08 | Outpatient (CLI) | payer MEDICARE, MEDICAID ==
[~2019-06-08] MED LIST changes: +BACL10TA PO; +BUPR300T51 PO; +FERR-84 PO; +GBPN600T PO; +LAMO150T2 PO; +LEVO112T55 PO; +LISI-556 PO; +MELA5TAB14 PO; +MONT10TA24 PO; +MULT-178 PO; +RANI150T11 PO; +SERT100T8 PO
== END | disposition home or self-care (01) ==
LOC: PREOP 05:33
PROVIDERS: ATTEND Surgery
DX: Z01.818 Encounter for other preprocedural examination (principal)

== ENCOUNTER 2020-01-31 08:49 | Emergency (ER) | payer MEDICARE, MEDICAID ==
[~2020-01-31] VITALS: Ht 177.8 cm; Wt 104.0 kg
[~2020-01-31 08:49] MED LIST changes: -BUPR300T51 PO; +BUPR300T98 PO; -LAMO150T2 PO; +LAMO150T4 PO; -MONT10TA24 PO; +MONT10TA26 PO; -TRAM50TA2 PO
[2020-01-31] MEDS ORDERED: LACTATED RINGERS 1,000 ML IV ONE (09:08)
[2020-01-31] MEDS ORDERED: ONDANSETRON 4 MG/2 ML (SDV) Z0FRAN IVP ONE (09:15)
[2020-01-31 09:21] LABS: BASOPHILS % (AUTO) 0 % (0-10); EOSINOPHILS # (AUTO) 0.6 10^3/uL (0.0-0.3); EOSINOPHILS % (AUTO) 4 % (0-10); HEMATOCRIT 42 % (35-52); HEMOGLOBIN 13.6 G/DL (11.5-16.0); LYMPHOCYTES # (AUTO) 2.4 X 10^3 (1.0-4.0); LYMPHOCYTES % (AUTO) 18 % (12-44); MEAN CORPUSCULAR HEMOGLOBIN 30 PG (25-34); MEAN CORPUSCULAR HGB CONC 32 G/DL (32-36); MEAN CORPUSCULAR VOLUME 94 FL (80-99); MEAN PLATELET VOLUME 10.5 FL (7.4-10.4); MONOCYTES # (AUTO) 1.1 X 10^3 (0.0-1.0); MONOCYTES % (AUTO) 8 % (0-12); NEUTROPHILS # (AUTO) 9.1 X 10^3 (1.8-7.8); NEUTROPHILS % (AUTO) 70 % (42-75); PLATELET COUNT 303 10^3/uL (130-400); RED CELL DISTRIBUTION WIDTH 13.6 % (10.0-14.5); WHITE BLOOD COUNT 13.1 10^3/uL (4.3-11.0)
--- NOTE | 2020-01-31 09:25 | ED General ---
General Chief Complaint: Neurological Problems Stated Complaint: SEIZURE Source of Information: Patient (VERY POOR HISTORIAN) History of Present Illness Date Seen by Provider: Jan 31, 2020 Time Seen by Provider: 09:00 Initial Comments PT ARRIVES VIA POV FROM HOME PT STATES "I THINK I HAD A SEIZURE" PT IS UNABLE TO GIVE ANY INFORMATION TO WHY SHE THINKS SHE HAD A SEIZURE OR WHAT HER SYMPTOMS ARE STATES SHE HAS A HISTORY OF SEIZURES NO INJURY OR PAIN ANYWHERE STATES "I CAN'T THINK STRAIGHT" STATES "I FELL LIKE I'M ALOT BETTER NOW" STATES THAT HER ALARM WENT OFF AT 0700, BUT CANNOT STATE WHAT TIME SHE THINKS THE POSSIBLE SEIZURE OCCURRED C/O NAUSEA, NO VOMITING NO HEADACHE NO VISION CHANGES NO PARESTHESIAS OR MOTOR DEFICITS NO FEVER OR RECENT ILLNESS NO PAIN ANYWHERE PT WITH AND EXTENSIVE PSYCH HISTORY WITH MULTIPLE VISITS FOR SUICIDAL IDEATIONS AND ATTEMPTS PT WITH LONG HISTORY OF SELF HARM BEHAVIOR--HAS EXTENSIVE SCARRING FROM SELF INFLICTED CUTS AND DIANE TO FOREARMS AND LEGS PT DENIES ANY SUICIDAL THOUGHTS AT THIS TIME PT STATES SHE HAS NOT EATEN OR HAD ANY OF HER MORNING MEDICATIONS YET. 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" [facility] All[facility]ies and Home Medications Allergies Coded Allergies: pantoprazole (Unverified Allergy, Mild, 04/22/19) sulfamethoxazole (Unverified Allergy, Mild, 04/22/19) trimethoprim (Unverified Allergy, Mild, 04/22/19) Penicillins (Verified Allergy, Unknown, 04/22/19) cephalexin (Verified Allergy, Unknown, 04/22/19) erythromycin base (Verified Allergy, Unknown, 04/22/19) piroxicam (Verified Allergy, Unknown, 04/22/19) silver sulfadiazine (Verified Allergy, Unknown, 04/22/19) tetracycline (Verified Allergy, Unknown, 04/22/19) epinephrine (Unverified Adverse Reaction, Unknown, 04/22/19) Uncoded Allergies: ZIPSOR (Allergy, Mild, 11/17/09) MENTAL MOOD CHANGES (Adverse Reaction, Unknown, CAUSE TO HAVE SEVERE MOOD CHANGES, 07/07/15) Home Medications Albuterol Sulfate 1 Puff Puff, 2 PUFF IH Q4H PRN for SHORTNESS OF BREATH, (Reported) 1 PUFF = 90 MCG Baclofen 10 Mg Tablet, 10 MG PO TID, (Reported) Bupropion HCl 300 Mg Tab.er.24h, 300 MG PO DAILY, (Reported) Cholecalciferol (Vitamin D3) 1,000 Unit Tablet, 1,000 UNIT PO DAILY, (Reported) Ferrous Sulfate 325 Mg Tablet, 325 MG PO HS, (Reported) Gabapentin 600 Mg Tablet, 300 MG PO BID, (Reported) Lamotrigine 150 Mg Tablet, 150 MG PO HS, (Reported) Levothyroxine Sodium 112 Mcg Tablet, 112 MCG PO DAILY, (Reported) Lisinopril 5 Mg Tablet, 5 MG PO DAILY, (Reported) Loratadine 10 Mg Tablet, 10 MG PO HS, (Reported) Melatonin 5 Mg Tablet, 1-5 MG PO HS, (Reported) Montelukast Sodium 10 Mg Tablet, 10 MG PO HS, (Reported) Multivitamin 1 Each Tablet, 1 EACH PO DAILY, (Reported) Ranitidine HCl 150 Mg Tablet, 150 MG PO QID PRN for HEARTBURN, (Reported) Sertraline HCl 100 Mg Tablet, 100 MG PO DAILY, (Reported) Tramadol HCl 50 Mg Tablet, 50 MG PO 4 TIMES A DAY Prescribed by: YUMIKO HOFF on 10/02/17 1237 Patient Home Medication List Home Medication List Reviewed: Yes Review of Systems Review of Systems Constitutional: see HPI; No chills, No diaphoresis, No dizziness, No fever; m alaise; No weakness EENTM: no symptoms reported; No blurred vision, No double vision, No nose congestion, No throat pain Respiratory: no symptoms reported; No cough, No short of breath, No wheezing Cardiovascular: no symptoms reported; No chest pain, No edema, No palpitations Gastrointestinal: see HPI; No abdominal pain, No constipation, No diarrhea; nausea; No vomiting Genitourinary: no symptoms reported Musculoskeletal: no symptoms reported Skin: no symptoms reported Psychiatric/Neurological: See HPI; Denies Headache, Denies Numbness, Denies Paresthesia, Denies Tingling, Denies Tremors, Denies Weakness Hematologic/Lymphatic: No Symptoms Reported Immunological/Allergic: no symptoms reported Past Bfimnzr-Uizzws-Uqftsy Hx Past Med/Social Hx: Reviewed and Corrections made Patient Social History Former Smoker, Quit: Apr 22, 2016 2nd Hand Smoke Exposure: Yes Recent Hopitalizations: No Immunizations Up To Date Tetanus Booster (TDap): Unknown Date of Influenza Vaccine: Apr 20, 2018 Seasonal Allergies Seasonal Allergies: Yes Past Medical History Surgeries: Yes Appendectomy, Gallbladder Respiratory: Yes Asthma Cardiac: Yes Hypertension Neurological: Yes Seizure Disorder Reproductive Disorders: Yes (son born with cleft lip & palate, crebral palsy, and MR) Genitourinary: Yes (STAGE 3 KIDNEY FAILURE) Renal Failure Gastrointestinal: Yes Gastroesophageal Reflux, Chronic Constipation Musculoskeletal: Yes (RAYNAUD'S) Fibromyalgia Endocrine: Yes (VITAMIN D DEFICIENCY) Hypothyroidsim HEENT: Yes (GLASSES, DENTURES) Loss of Vision: Denies Hearing Impairment: Denies Cancer: No Psychosocial: Yes (psychoeffective disorder;EXTENSIVE PSYCH ISSUES 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 12.8oz. 99.655009wv; 35.52 BMI Method:Stated General Appearance: No Apparent Distress, Obese, Other (AMBULATES IN ON HER OWN WITHOUT DIFFICULTY. 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85 10^6/uL Hemoglobin 13.6 11.5-16.0 G/DL Hematocrit 42 35-52 % Mean Corpuscular Volume 94 80-99 FL Mean Corpuscular Hemoglobin 30 25-34 PG Mean Corpuscular Hemoglobin Concent 32 32-36 G/DL Red Cell Distribution Width 13.6 10.0-14.5 % Platelet Count 303 130-400 10^3/uL Mean Platelet Volume 10.5 H 7.4-10.4 FL Neutrophils (%) (Auto) 70 42-75 % Lymphocytes (%) (Auto) 18 12-44 % Monocytes (%) (Auto) 8 0-12 % Eosinophils (%) (Auto) 4 0-10 % Basophils (%) (Auto) 0 0-10 % Neutrophils # (Auto) 9.1 H 1.8-7.8 X 10^3 Lymphocytes # (Auto) 2.4 1.0-4.0 X 10^3 Monocytes # (Auto) 1.1 H 0.0-1.0 X 10^3 Eosinophils # (Auto) 0.6 H 0.0-0.3 10^3/uL Basophils # (Auto) 0.0 0.0-0.1 10^3/uL Prothrombin Time 13.8 12.2-14.7 SEC INR Comment 1.0 0.8-1.4 Activated Partial Thromboplast Time 29 24-35 SEC Sodium Level 142 135-145 MMOL/L Potassium Level 4.3 3.6-5.0 MMOL/L Chloride Level 105 98-107 MMOL/L Carbon Dioxide Level 25 21-32 MMOL/L Anion Gap 12 5-14 MMOL/L Blood Urea Nitrogen 19 H 7-18 MG/DL Creatinine 1.70 H 0.60-1.30 MG/DL Estimat Glomerular Filtration Rate 32 BUN/Creatinine Ratio 11 Glucose Level 105 70-105 MG/DL Calcium Level 9.5 8.5-10.1 MG/DL Corrected Calcium 9.1 8.5-10.1 MG/DL Magnesium Level 2.1 1.6-2.4 MG/DL Total Bilirubin 0.2 0.1-1.0 MG/DL Aspartate Amino Transf (AST/SGOT) 17 5-34 U/L Alanine Aminotransferase (ALT/SGPT) 18 0-55 U/L Alkaline Phosphatase 112 40-136 U/L Total Creatine Kinase 56 29-168 U/L Creatine Kinase MB 2.4 <6.6 NG/ML Myoglobin 92.7 H 10.0-92.0 NG/ML Total Protein 7.9 6.4-8.2 GM/DL Albumin 4.5 3.2-4.5 GM/DL TSH [place] Testing 4.66 0.35-4.94 UIU/ML Serum Test, Qualitative NEGATIVE NEGATIVE Acetaminophen Level < 10 L 10-30 UG/ML Serum Alcohol < 10 <10 MG/DL Glucometer 104 70-110 MG/DL Urine Color YELLOW Urine Clarity CLEAR Urine pH 6.0 5-9 Urine Specific [place] <=1.005 1.016-1.022 Urine Protein NEGATIVE NEGATIVE Urine Glucose (UA) NEGATIVE NEGATIVE Urine Ketones NEGATIVE NEGATIVE Urine Nitrite NEGATIVE NEGATIVE Urine Bilirubin NEGATIVE NEGATIVE Urine Urobilinogen 0.2 < = 1.0 MG/DL Urine Leukocyte Esterase NEGATIVE NEGATIVE Urine RBC (Auto) NEGATIVE NEGATIVE Urine RBC NONE /HPF Urine WBC NONE /HPF Urine Squamous Epithelial Cells RARE /HPF Urine Crystals NONE /LPF Urine Bacteria NEGATIVE /HPF Urine Casts NONE /LPF Urine Mucus NEGATIVE /LPF Urine Culture Indicated NO Urine Opiates Screen NEGATIVE NEGATIVE Urine Oxycodone Screen NEGATIVE NEGATIVE Urine Methadone Screen NEGATIVE NEGATIVE Urine Propoxyphene Screen NEGATIVE NEGATIVE Urine Barbiturates Screen NEGATIVE NEGATIVE Ur Tricyclic Antidepressants Screen NEGATIVE NEGATIVE Urine Phencyclidine Screen NEGATIVE NEGATIVE Urine Amphetamines Screen NEGATIVE NEGATIVE Urine Methamphetamines Screen NEGATIVE NEGATIVE Urine Benzodiazepines Screen NEGATIVE NEGATIVE Urine Cocaine Screen NEGATIVE NEGATIVE Urine Cannabinoids Screen NEGATIVE NEGATIVE My Orders Orders - SUNSHINE ALBERTO K DO Acetaminophen (01/31/20 09:08) Alcohol (01/31/20 09:08) Cbc With Automated Diff (01/31/20 09:08) Comprehensive Metabolic Panel (01/31/20 09:08) Creatine Kinase (01/31/20 09:08) Creatine Kinase Mb (01/31/20 09:08) Drug Screen Stat (Urine) (01/31/20 09:08) Hcg,Qualitative Serum (01/31/20 09:08) Magnesium (01/31/20 09:08) Protime With Inr (01/31/20 09:08) Partial Thromboplastin Time (01/31/20 09:08) Thyroid Analyzer (01/31/20 09:08) Ua Culture If Indicated (01/31/20 09:08) Myoglobin Serum (01/31/20 09:08) Accucheck Stat ONCE (01/31/20 09:08) Ekg Tracing (01/31/20 09:08) Monitor-Rhythm Ecg Trace Only (01/31/20 09:08) Ed Iv/Invasive Line Start (01/31/20 09:08) Lactated Ringers (Lr 1000 Ml Iv Solution (01/31/20 09:08) Ondansetron Injection (Zofran Injectio (01/31/20 09:15) Ct Head Wo-R/O Stroke (01/31/20 09:48) Medications Given in ED Current Medications Medications Dose Ordered Sig/Jayme Route Start Time Stop Time Status Last Admin Dose Admin Lactated Ringer's 1,000 ml @ 0 mls/hr Q0M ONCE IV 01/31/20 09:08 01/31/20 09:11 DC 01/31/20 09:25 0 MLS/HR Ondansetron HCl 8 mg ONCE ONCE IVP 01/31/20 09:15 01/31/20 09:16 DC 01/31/20 09:25 8 MG Vital Signs/I&O 01/31/20 09:00 Temp 36.4 Pulse 54 Resp 17 B/P (MAP) 189/83 (118) Pulse Ox 96 O2 Delivery Room Air Capillary Refill : Progress Note : Progress Note UNEVENTFUL ER STAY ECG Initial ECG Impression Date: Jan 31, 2020 Initial ECG Impression Time: 09:06 Initial ECG Rate: 61 Initial ECG Rhythm: Normal Sinus Diagnostic Imaging Comments CT HEAD--NO ACUTE PROCESS, PER RADIOLOGIST REPORT AT 1014 Reviewed: Reviewed by Me Departure Impression Primary Impression: SELF REPORTED SEIZURE Disposition: HOME, SELF-CARE Condition: Stable Departure-Patient Inst. Referrals: MADELYN WILLSON MD (PCP/Family) Primary Care Physician Patient Instructions: Seizures, Adult (DC) Add. Discharge Instructions: CONTINUE YOUR REGULAR MEDICATIONS PRESCRIBED FOLLOW UP WITH YOUR DR IN 2-3 DAYS FOR FURTHER CARE All discharge instructions reviewed with patient and/or family. Voiced understan victor hugo. SUNSHINE ALBERTO DO Jan 31, 2020 09:25
[2020-01-31 09:26] LABS: BILIRUBIN,URINE NEGATIVE (NEGATIVE); CLARITY,URINE CLEAR; COLOR,URINE YELLOW; GLUCOSE, URINE (UA) NEGATIVE (NEGATIVE); KETONES,URINE NEGATIVE (NEGATIVE); LEUKOCYTE ESTERASE ,URINE NEGATIVE (NEGATIVE); NITRITE,URINE NEGATIVE (NEGATIVE); PROTEIN,URINE NEGATIVE (NEGATIVE)
[2020-01-31 09:33] LABS: ALBUMIN 4.5 GM/DL (3.2-4.5); CHLORIDE 105 MMOL/L (98-107); POTASSIUM 4.3 MMOL/L (3.6-5.0); PROTHROMBIN TIME PATIENT 13.8 SEC (12.2-14.7); SODIUM 142 MMOL/L (135-145)
--- OUTSIDE RECORDS SUMMARY | 2020-01-31 09:34 | XMS REPORT ---
Author Author Ivet TURNER Organization [facility] Address [address] [place] [address] Care Team Providers Care Valuation Manager Name Role Phone QUYEN TURNER Unavailable PROBLEMS Type Condition ICD9-CM Code [id number] Code Onset Dates Condition S tatus SNOMED Code Problem Essential hypertension I10 Active 34375922 Problem GERD (gastroesophageal reflux disease) K21.9 Active 857640416 Problem Schizo affective schizophrenia F25.0 Active 191534764 Problem Stage 3 chronic kidney disease N18.3 Active 683905964 Problem Fibromyalgia M79.7 Active 2767852 05 Problem Vitamin D deficiency E55.9 Active 97389010 Problem Chronic kidney disease, stage 4 (severe) N18.4 Active [id number] Problem Bilateral carotid artery disease I77.9 Active 434068299 Problem Anemia in chronic kidney disease D63.1 Active 363076465 Problem Osteoarthritis M19.90 Active 01456 5006 Problem Iron deficiency anemia, unspecified iron deficiency an emia type D50.9 Active 28186787 Problem Secondary hyperparathyroidism, not elsewhere classified E21.1 Active 94746259 Problem Acquired hypothyroidism E03.9 Active 797460812 Problem Seasonal allergic rhinitis due to pollen J30.1 Active 35370210 ALLERGIES No Information ENCOUNTERS Encounter Location Date Diagnosis [facility] [address] [facility] [id number] [address] [place] [id number] 13 Jan, 2020 Eczema, unspecified type L30 .9 [facility] [address] [facility] [id number] [address] [place] [id number] 09 Jan, 2020 Essential hypertension I10 ; Chronic kidney disease, stage 4 (severe) N18.4 ; Anemia in chronic kidney disease D63.1 and Fibromyalgia M79.[address] [id number] [address] 07 Dec, 2019 Osteoarthritis M19.90 [facility] [address] [facility] [id number] [address] [place] [id number] November, Encounter for medication mon itoring Z51.[address] [id number] [address] November, Encounter for medication mon itoring Z51.81 and Osteoarthritis M19.90 [facility] [address] [facility] [id number] [address] [place] [id number] November, Seasonal allergic rhinitis d ue to pollen J30.1 [facility] [address] [facility] [id number] [address] [place] [id number] 14 Oct, 2019 Lumbar radiculopathy M54.16 ; Fibromyalgia M79.7 ; Essential hypertension I10 and GERD (gastroesophageal reflux disease) K21.9 [facility] [address] [facility] [id number] [address] [place] [id number] Oct, Osteoarthritis M19.90 [facility] [address] [facility] [id number] [address] [place] [id number] Sep, [facility] [address] [facility] [id number] [address] [place] [address] Aug, Osteoarthritis M19.90 [facility] [address] [facility] [id number] [address] [place] [id number] Jul, Osteoarthritis M19.90 [facility] [address] [facility] [id number] [address] [place] [id number] Jun, Osteoarthritis M19.90 [facility] [address] [facility] [id number] [address] [place] [id number] Jun, Herpes zoster without compli cation B02.9 [facility] [address] [facility] [id number] [address] [place] [id number] May, Osteoarthritis M19.90 [facility] [address] [facility] [id number] [address] [place] [id number] May, [place] [address] [place] [id number] [address] [place] [address] Apr, [place] [address] [address] Mar, Osteoarthritis M19.90 [place] [address] [place] [id number] [place] [address] Mar, [place] [address] [address] Feb, Lumbago with sciatica, left side M54.42 ; Lumbago with sciatica, right side M54.41 and Other chronic pain G89.29 [place] [address] [place] [id number] [place] [address] Feb, Encounter for Medicare annua l wellness exam Z00.00 ; Schizo affective schizophrenia F25.0 ; Essential hypertension I10 ; GERD (gastroesophageal reflux disease) K21.9 ; Secondary hyperparathyroidism, not elsewhere classified E21.1 ; Idiopathic peripheral neuropathy G60.9 ; Stage 3 chronic kidney disease N18.3 ; Acquired hypothyroidism E03.9 ; Bilateral carotid artery disease I77.9 and Hypothyroidism E03.9 [place] [address] [address] Feb, Osteoarthritis M19.90 [place] [address] [address] Jan, Osteoarthritis M19.90 [place] [address] [place] [id number] [address] [place] [address] Jan, Osteoarthritis M19.90 [place] [address] [place] [id number] [address] [place] [address] Dec, Acquired hypothyroidism E03. 9 [place] [address] [place] [id number] [place] [address] 03 Dec, 2018 Fibromyalgia M79.7 ; Hypothy roidism E03.9 ; Essential hypertension I10 and Sensory loss R20.[address] 340[address] [id number] [address] November, Osteoarthritis M19.90 [facility] [address] [facility] [id number] [address] [place] [id number] Oct, Osteoarthritis M19.90 [facility] [address] [facility] [id number] [address] [place] [id number] Oct, Sore throat J02.9 and Acute nasopharyngitis J00 [facility] [address] [facility] [id number] [address] [place] [id number] Sep, Osteoarthritis M19.90 [facility] [address] [facility] [id number] [address] [place] [address] Sep, Acute non-recurrent maxillar y sinusitis J01.00 [facility] [address] [facility] [id number] [address] [place] [address] Aug, Acute non-recurrent pansinus itis J01.40 [facility] [address] [facility] [id number] [address] [place] [address] Jul, Osteoarthritis M19.90 [facility] [address] [facility] [id number] [address] [place] [address] Jul, [facility] [address] [facility] [id number] [address] [place] [address] Apr, Osteoarthritis M19.90 [facility] [address] [place] [id number] [address] [place] [address] Apr, Fibromyalgia M79.7 ; Essenti al hypertension I10 ; Encounter for immunization Z23 ; Stage 3 chronic kidney disease N18.3 and Depression F32.9 [facility] [address] [facility] [id number] [address] [place] [address] Dec, Fibromyalgia M79.7 ; Osteoar thritis M19.90 and Encounter for medication management Z79.899 [facility] [address] [facility] [id number] [address] [place] [address] November, Nausea and vomiting, intract ability of vomiting not specified, unspecified vomiting type R11.2 and Dizziness R42 [place] [address] [address] November, Fibromyalgia M79.7 [place] [address] [address] November, Medicare annual wellness vis it, initial Z00.00 ; Anxiety F41.9 ; Depression F32.9 ; Stage 3 chronic kidney disease N18.3 ; Fibromyalgia M79.7 ; Essential hypertension I10 ; Secondary hyperparathyroidism, not elsewhere classified E21.1 ; Osteoarthritis M19.90 ; Hypothyroidism E03.9 and Encounter for immunization Z23 [place] [address] [address] Oct, [place] [address] [address] Oct, Sebaceous cyst L72.3 [place] [address] [address] Sep, Low back pain, unspecified b ack pain laterality, unspecified chronicity, with sciatica presence unspecified M54.5 and Secondary hyperparathyroidism, not elsewhere classified E21.1 [place] [address] [address] Sep, Fibromyalgia M79.7 [place] [address] [address] Sep, Fibromyalgia M79.7 ; Plantar fasciitis, bilateral M72.2 ; Essential hypertension I10 ; Depression F32.9 and Epidermoid cyst L72.0 [place] [address] [address] Jul, [place] [address] [address] Jul, Fibromyalgia M79.7 ; Iron de ficiency anemia, unspecified iron deficiency anemia type D50.9 and Acute nasopharyngitis J00 [facility] [address] [address] 18 Jun, 2017 Sore throat J02.9 and Acute serous otitis media of left ear, recurrence not specified H65.02 [facility] [address] [address] Jun, Hypothyroidism E03.9 [facility] [address] [address] Jun, [place] [address] [address] Jun, Hypothyroidism E03.9 ; Essen tial hypertension I10 and Osteoarthritis M19.90 [facility] [address] [address] May, [place] [address] [address] May, [place] [address] [address] Feb, [place] [address] [address] Feb, Leonela-menopausal N95.1 and To bacco use Z72.0 [place] [address] [address] Jan, [place] [address] [address] Jan, Osteoarthritis M19.90 ; Bila teral carotid artery disease I77.9 ; Raynauds syndrome I73.00 ; Essential hypertension I10 ; Allergic rhinitis J30.9 ; Stage 3 chronic kidney disease N18.3 ; Fibromyalgia M79.7 ; Hypothyroidism E03.9 ; GERD (gastroesophageal reflux disease) K21.9 and Vitamin D deficiency E55.9 [place] [address] [address] Dec, Raynauds syndrome I73.00 ; P lantar fascial fibromatosis M72.2 ; Osteoarthritis M19.90 and Fibromyalgia M79.7 [facility] [address] [facility] [id number] [address] [place] [id number] Dec, [facility] [address] [facility] [id number] [address] [place] [id number] Dec, [facility] [address] [facility] [id number] [address] [place] [id number] Oct, Function kidney decreased N2 8.9 [facility] [address] [facility] [id number] [place] [id number] Oct, Dental examination Z01.20 [facility] [address] [facility] [id number] [address] [place] [id number] 18 Oct, 2016 Essential hypertension I10 a nd Function kidney decreased N28.9 [facility] [address] [facility] [id number] [place] [id number] Oct, Dental examination Z01.20 [facility] [address] [facility] [id number] [address] [place] [id number] Oct, [facility] [address] [place] [id number] [address] [place] [id number] 24 Sep, 2016 Other specified disorders in volving the immune mechanism D89.89 and Schizo affective schizophrenia F25.0 [facility] [address] [place] [id number] [address] [place] [id number] Sep, Schizo affective schizophren ia F25.0 [facility] [address] [facility] [id number] [address] [place] [id number] 16 Sep, 2016 Eustachian tube dysfunction, bilateral H69.83 [facility] [address] [facility] [id number] [address] [place] [id number] 15 Sep, 2016 [facility] [address] [place] [id number] [address] [place] [id number] 14 Sep, 2016 [facility] [address] [address] 14 Sep, 2016 [facility] [address] [address] Sep, Eustachian tube dysfunction, bilateral H69.83 [facility] [address] [address] Sep, Allergic rhinitis J30.9 ; Es sential hypertension I10 ; Hypothyroidism E03.9 and Schizo affective schizophrenia F25.0 [facility] [address] [address] Jul, Eustachian tube dysfunction, bilateral H69.83 and Visit for TB skin test Z11.1 [facility] [address] [address] Jul, Subacute pansinusitis J01.40 [place] [address] [address] Jun, Schizo affective schizophren ia F25.0 ; Depression F32.9 ; Allergic rhinitis J30.9 ; Raynauds syndrome I73.00 ; Essential hypertension I10 ; Slow transit constipation K59.01 ; GERD (gastroesophageal reflux disease) K21.9 ; Hypothyroidism E03.9 ; Nicotine addiction F17.200 ; Other viral agents as the cause of diseases classified elsewhere B97.89 ; Acute upper respiratory infection, unspecified J06.9 and Osteoarthritis M19.90 [place] [address] [place] [id number] [address] [place] [address] Jun, Allergic rhinitis J30.9 and GERD (gastroesophageal reflux disease) K21.9 [place] [address] [address] May, [place] [address] [address] Mar, Schizo affective schizophren ia F25.0 [place] [address] [address] Mar, Schizo affective schizophren ia F25.0 [place] [address] [address] Mar, Schizo affective schizophren ia F25.0 [place] [address] [address] Mar, Acute non-recurrent maxillar y sinusitis J01.00 [place] [address] [address] Feb, Schizo affective schizophren ia F25.0 [place] [address] [address] Feb, Contact dermatitis and eczem a L25.9 [place] [address] [address] Jan, [place] [address] [address] Jan, Schizo affective schizophren ia F25.0 ; Slow transit constipation K59.01 ; Essential hypertension I10 ; GERD (gastroesophageal reflux disease) K21.9 ; Hypothyroidism E03.9 ; Osteoarthritis M19.90 ; Low back pain, unspecified back pain laterality, unspecified chronicity, with sciatica presence unspecified M54.5 and Bilateral carotid artery disease I77.9 [place] [address] [address] Oct, [place] [address] [address] Sep, Hypothyroid E03.9 [place] [address] [address] Sep, Schizo affective schizophren ia F25.0 ; Depression F32.9 ; Anxiety F41.9 ; Allergic rhinitis J30.9 ; Raynauds syndrome I73.00 ; Insomnia G47.00 ; Essential hypertension I10 ; GERD (gastroesophageal reflux disease) K21.9 ; Hypothyroidism E03.9 and Vitamin D deficiency E55.9 [facility] [address] [place] [id number] [address] [place] [address] Sep, [place] [address] [address] Sep, [place] [address] [address] Aug, Allergic rhinitis J30.9 ; De pression F32.9 ; Anxiety F41.9 ; Raynauds syndrome I73.00 ; Insomnia G47.00 and GERD (gastroesophageal reflux disease) K21.9 [place] [address] [address] Aug, MONICA (secretory otitis media) H65.90 and Raynauds syndrome I73.00 [facility] [address] [place] [id number] [address] [place] [address] Jul, Acute otitis externa of both ears, unspecified type H60.503 [place] [address] [place] [id number] [address] [place] [address] Jun, [place] [address] [address] Jun, Essential hypertension I10 ; Allergic rhinitis J30.9 ; Hypothyroidism E03.9 and Osteoarthritis M19.90 [place] [address] [address] Jun, Routine adult health mainten ance Z00.00 ; Hypothyroidism E03.9 ; Essential hypertension I10 ; Insomnia G47.00 ; Nicotine addiction F17.200 ; Raynauds syndrome I73.00 ; GERD (gastroesophageal reflux disease) K21.9 ; Allergic rhinitis J30.9 ; Anxiety F41.9 ; Depression F32.9 and Schizo affective schizophrenia F25.0 [place] [address] [place] [id number] [address] [place] [address] May, Upper respiratory tract infe ction, unspecified type J06.9 [facility] [address] [id number] [address] [place] [address] Mar, [facility] [address] [id number] [place] [id number] Mar, [facility] [address] [id number] [address] [place] [address] Mar, [facility] [address] [id number] [address] [place] [id number] Mar, [facility] [address] [id number] [address] [place] [id number] Feb, Jaw pain 784.92 and Environm ental and seasonal allergies 477.8 [facility] [address] [id number] [address] [place] [id number] Feb, [facility] [address] [id number] [address] [place] [address] Oct, [facility] [address] [id number] [address] [place] [id number] Oct, [facility] [address] [id number] [address] [place] [id number] Oct, [facility] [address] [id number] [address] [place] [id number] Oct, [facility] [address] [id number] [address] [place] [phone] Sep, [facility] [address] [id number] [address] [place] [id number] Sep, [facility] [address] [id number] [address] [place] [id number] Jul, [facility] [address] [id number] [address] [place] [id number] Jul, [facility] [address] [id number] [address] [place] [phone] Jul, [facility] [address] [id number] [address] [place] [address], [place] [address] Jul, [facility] [address] [id number] [address] [place] [address], [place] [address] Jul, [facility] [address] [id number] [address] [place] [address], [place] [address] Jul, [facility] [address] [id number] [address] [place] [address], [place] [address] Jul, [facility] [address] [id number] [address] [place] [address], [place] [address] Jun, [facility] [address] [id number] [address] [place] [address], [place] [address] Jun, [facility] [address] [id number] [address] [place] [address], [place] [address] Jun, [facility] [address] [id number] [address] [place] [address], [place] [address] 18 Jun, 2014 [facility] [address] [id number] [address] [place] [address], [place] [address] 17 Jun, 2014 [facility] [address] [id number] [address] [place] [address], [place] [address] Jun, [facility] [address] [id number] [address] [place] [address], [place] [address] 16 Jun, 2014 [facility] [address] [id number] [address] [place] [address], [place] [address] 16 Jun, 2014 [facility] [address] [id number] [address] [place] [address], [place] [address] 30 Apr, 2014 [facility] [address] [id number] [address] [place] [address], [place] [address] 30 Apr, 2014 [facility] [address] [id number] [address] [place] [address], [place] [address] 17 Mar, 2014 [facility] [address] [id number] [address] [place] [address], [place] [address] 17 Mar, 2014 [facility] [address] [id number] [address] [place] [address], [place] [address] Mar, [facility] [address] [id number] [address] [place] [address], [place] [address] Mar, [facility] [address] [id number] [address] [place] [address], [place] [address] Jan, [facility] [address] [id number] [address] [place] [address], [place] [address] Jan, [facility] [address] [id number] [address] [place] [address], [place] [address] Oct, [facility] [address] [id number] [address] [place] [address], [place] [address] Oct, [facility] [address] [id number] [address] [place] [address], [place] [address] Sep, [facility] [address] [id number] [address] [place] [address], [place] [address] Sep, [facility] [address] [id number] [address] [place] [address], [place] [address] Sep, [facility] [address] [id number] [address] [place] [address], [place] [address] Sep, [facility] [address] [id number] [address] [place] [address], [place] [address] Sep, [facility] [address] [id number] [address] [place] [address], [place] [address] Sep, [facility] [address] [id number] [address] [place] [address], [place] [address] Aug, [facility] [address] [id number] [address] [place] [address], [place] [address] Aug, [facility] [address] [id number] [address] [place] [address], [place] [address] Jul, [facility] [address] [id number] [address] [place] [address], [place] [address] Jul, [facility] [address] [id number] [address] [place] [address], [place] [address] Jul, [facility] [address] [id number] [address] [place] [address], [place] [address] Jul, [facility] [address] [id number] [address] [place] [address], [place] [address] Jun, [facility] [address] [id number] [address] [place] [address], [place] [address] Jun, [facility] [address] [id number] [address] [place] [address], [place] [address] May, [facility] [address] [id number] [address] [place] [address], [place] [address] May, [facility] [address] [id number] [address] [place] [address], [place] [address] Apr, [facility] [address] [id number] [address] [place] [address], [place] [address] Apr, [facility] [facility] [address] [id number] [address] [place] [address], [place] [address] Apr, [facility] [address] [id number] [address] [place] [address], [place] [address] Apr, [facility] [address] [id number] [address] [place] [address], [place] [address] Apr, [facility] [address] [id number] [address] [place] [address], [place] [address] Apr, [facility] [address] [id number] [address] [place] [address], [place] [address] Mar, [facility] [address] [id number] [address] [place] [address], [place] [address] Mar, [facility] [address] [id number] [address] [place] [address], [place] [address] Mar, 2013 [facility] [address] [id number] [address] [place] [address], [place] [address] 05 Mar, 2013 [facility] [address] [id number] [address] [place] [address], [place] [address] 05 Mar, 2013 [facility] [address] [id number] [address] [place] [address], [place] [address] Feb, [facility] [address] [id number] [address] [place] [address], [place] [address] Feb, [facility] [address] [id number] [address] [place] [address], [place] [address] Feb, [facility] [address] [id number] [address] [place] [address], [place] [address] Feb, [facility] [address] [id number] [address] [place] [address], [place] [address] Jan, [facility] [address] [id number] [address] [place] [address], [place] [address] Jan, [facility] [address] [id number] [address] [place] [address], [place] [address] 16 Jan, 2013 [facility] [address] [id number] [address] [place] [address], [place] [address] Jan, [facility] [address] [id number] [address] [place] [address], [place] [address] Jan, [facility] [address] [id number] [address] [place] [address], [place] [address] Jan, [facility] [address] [id number] [address] [place] [address], [place] [address] Dec, [facility] [address] [id number] [address] [place] [address], [place] [address] Dec, [facility] [address] [id number] [address] [place] [address], [place] [address] Dec, [facility] [address] [id number] [address] [place] [address], [place] [address] 14 Dec, 2012 [facility] [address] [id number] [address] [place] [address], [place] [address] 13 Dec, 2012 [facility] [address] [id number] [address] [place] [address], [place] [address] 12 Dec, 2012 [facility] [address] [id number] [address] [place] [address], [place] [address] Dec, [facility] [address] [id number] [address] [place] [address], [place] [address] 07 Dec, 2012 [facility] [address] [id number] [address] [place] [address], [place] [address] 05 Dec, 2012 [facility] [address] [id number] [address] [place] [address], [place] [address] Dec, [facility] [address] [id number] [address] [place] [address], [place] [address] November, [facility] [address] [id number] [address] [place] [address], [place] [address] November, [facility] [address] [id number] [address] [place] [address], [place] [address] November, [facility] [address] [id number] [address] [place] [address], [place] [address] November, [facility] [address] [id number] [address] [place] [address], [place] [address] November, [facility] [address] [id number] [address] [place] [address], [place] [address] Oct, [facility] [address] [id number] [address] [place] [address], [place] [address] Oct, [facility] [address] [id number] [address] [place] [address], [place] [address] Oct, [facility] [address] [id number] [address] [place] [address], [place] [address] Oct, [facility] [address] [id number] [address] [place] [address], [place] [address] Oct, [facility] [address] [id number] [address] [place] [address], [place] [address] Sep, [facility] [address] [id number] [address] [place] [address], [place] [address] Sep, [facility] [address] [id number] [address] [place] [address], [place] [address] 18 Sep, 2012 [facility] [address] [id number] [address] [place] [address], [place] [address] 05 Sep, 2012 [facility] [address] [id number] [address] [place] [address], [place] [address] 26 Aug, 2012 [facility] [address] [id number] [address] [place] [address], [place] [address] Aug, [facility] [address] [id number] [address] [place] [address], [place] [address] 18 Aug, 2012 [facility] [address] [id number] [address] [place] [address], [place] [address] 15 Aug, 2012 [facility] [address] [id number] [address] [place] [address], [place] [address] Jun, [facility] [address] [id number] [address] [place] [address], [place] [address] Jun, [facility] [address] [id number] [address] [place] [address], [place] [address] Jun, [facility] [address] [id number] [address] [place] [address], [place] [address] Jun, [facility] [address] [id number] [address] [place] [address], [place] [address] Jun, [facility] [address] [id number] [address] [place] [address], [place] [address] Jun, [facility] [address] [id number] [address] [place] [address], [place] [address] Jun, [facility] [address] [id number] [address] [place] [address], [place] [address] Jun, [facility] [address] [id number] [address] [place] [address], [place] [address] Jun, [facility] [address] [id number] [address] [place] [address], [place] [address] Jun, [facility] [address] [id number] [address] [place] [address], [place] [address] 28 May, 2012 [facility] [address] [id number] [address] [place] [address], [place] [address] May, [facility] [address] [id number] [address] [place] [address], [place] [address] May, [facility] [address] [id number] [address] [place] [address], [place] [address] May, [facility] [address] [id number] [address] [place] [address], [place] [address] 26 May, 2012 [facility] [address] [id number] [address] [place] [address], [place] [address] 16 May, 2012 [facility] [address] [id number] [address] [place] [address], [place] [address] 16 May, 2012 [facility] [address] [id number] [address] [place] [address], [place] [address] 14 May, 2012 [facility] [address] [id number] [address] [place] [address], [place] [address] 14 May, 2012 [facility] [address] [id number] [address] [place] [address], [place] [address] 30 Apr, 2012 [facility] [address] [id number] [address] [place] [address], [place] [address] 30 Apr, 2012 [facility] [address] [id number] [address] [place] [address], [place] [address] 17 Apr, 2012 [facility] [address] [id number] [address] [place] [address], [place] [address] 17 Apr, 2012 [facility] [address] [id number] [address] [place] [address], [place] [address] 09 Apr, 2012 [facility] [address] [id number] [address] [place] [address], [place] [address] 18 Mar, 2012 [facility] [address] [id number] [address] [place] [address], [place] [address] 17 Mar, 2012 [facility] [address] [id number] [address] [place] [address], [place] [address] 07 Mar, 2012 [facility] [address] [id number] [address] [place] [address], [place] [address] 27 Feb, 2012 [facility] [address] [id number] [address] [place] [address], [place] [address] 16 Feb, 2012 [facility] [address] [id number] [address] [place] [address], [place] [address] 15 Feb, 2012 [facility] [address] [id number] [address] [place] [address], [place] [address] 14 Feb, 2012 [facility] [address] [id number] [address] [place] [address], [place] [address] Jan, [facility] [address] [id number] [address] [place] [address], [place] [address] Jan, [facility] [address] [id number] [address] [place] [address], [place] [address] Jan, [facility] [address] [id number] [address] [place] [address], [place] [address] Jan, [facility] [address] [id number] [address] [place] [address], [place] [address] 17 Jan, 2012 [facility] [address] [id number] [address] [place] [address], [place] [address] Jan, [facility] [address] [id number] [address] [place] [address], [place] [address] Dec, [facility] [address] [id number] [address] [place] [address], [place] [address] Dec, [facility] [address] [id number] [address] [place] [address], [place] [address] Dec, [facility] [address] [id number] [address] [place] [address], [place] [address] November, [facility] [address] [id number] [address] [place] [address], [place] [address] November, [facility] [address] [id number] [address] [place] [address], [place] [address] November, [facility] [address] [id number] [address] [place] [address], [place] [address] November, [facility] [address] [id number] [address] [place] [address], [place] [address] Oct, [facility] [address] [id number] [address] [place] [address], [place] [address] Oct, [facility] [address] [id number] [address] [place] [address], [place] [address] Oct, [facility] [address] [id number] [address] [place] [address], [place] [address] Sep, [facility] [address] [id number] [address] [place] [address], [place] [address] Sep, [facility] [address] [id number] [address] [place] [address], [place] [address] Aug, [facility] [address] [id number] [address] [place] [address], [place] [address] Aug, [facility] [address] [id number] [address] [place] [address], [place] [address] Aug, [facility] [address] [id number] [address] [place] [address], [place] [address] Aug, [facility] [address] [id number] [address] [place] [address], [place] [address] Jul, [facility] [address] [id number] [address] [place] [address], [place] [address] Jul, [facility] [address] [id number] [address] [place] [address], [place] [address] Jul, [facility] [address] [id number] [address] [place] [address], [place] [address] Jul, [facility] [address] [id number] [address] [place] [address], [place] [address] Jul, [facility] [address] [id number] [address] [place] [address], [place] [address] Jul, [facility] [address] [id number] [address] [place] [address], [place] [address] Jul, [facility] [address] [id number] [address] [place] [address], [place] [address] Jul, [facility] [address] [id number] [address] [place] [address], [place] [address] Jun, [facility] [address] [id number] [address] [place] [address], [place] [address] Jun, [facility] [address] [id number] [address] [place] [address], [place] [address] Jun, [facility] [address] [id number] [address] [place] [address], [place] [address] 08 Jun, 2011 [facility] [address] [id number] [address] [place] [address], [place] [address] Jun, [facility] [address] [id number] [address] [place] [address], [place] [address] May, [facility] [address] [id number] [address] [place] [address], [place] [address] May, [facility] [address] [id number] [address] [place] [address], [place] [address] 17 May, 2011 [facility] [address] [id number] [address] [place] [address], [place] [address] 15 May, 2011 [facility] [address] [id number] [address] [place] [address], [place] [address] May, [facility] [address] [id number] [address] [place] [address], [place] [address] May, [facility] [address] [id number] [address] [place] [address], [place] [address] Apr, [facility] [address] [id number] [address] [place] [address], [place] [address] Apr, [facility] [address] [id number] [address] [place] [address], [place] [address] Apr, [facility] [address] [id number] [address] [place] [address], [place] [address] Feb, [facility] [address] [id number] [address] [place] [address], [place] [address] Feb, [facility] [address] [id number] [address] [place] [address], [place] [address] Oct, [facility] [address] [id number] [address] [place] [address], [place] [address] Jul, [facility] [address] [id number] [address] [place] [address], [place] [address] Jul, [facility] [address] [id number] [address] [place] [address], [place] [address] Jun, [facility] [address] [id number] [address] [place] [address], [place] [address] May, [facility] [address] [id number] [address] [place] [address], [place] [address] May, [facility] [address] [id number] [address] [place] [address], [place] [address] May, [facility] [address] [id number] [address] [place] [address] Apr, [facility] [address] [facility] [id number] [address] [place] [address] Jan, [facility] [address] [facility] [id number] [address] [place] [address] November, IMMUNIZATIONS No Known Immunizations SOCIAL HISTORY Never Assessed REASON FOR VISIT PLAN OF CARE VITAL SIGNS MEDICATIONS No Known Medications RESULTS No Results PROCEDURES No Known procedures INSTRUCTIONS MEDICATIONS ADMINISTERED No Known Medications MEDICAL (GENERAL) HISTORY Type Description Date Medical History Hypertension Medical History Seasonal allergies Medical History raynauds syndrome Medical History Insomnia Medical History Hypothyroidism Medical History schizoaffective disorder with bipolar te ndancies Medical History Manic Depression Medical History carotid artery disease Medical History kidney Disease Surgical History Appendectomy Surgical History Cholecystectomy Hospitalization History childbirth Hospitalization History past surgery Hospitalization History mental illness
--- OUTSIDE RECORDS SUMMARY | 2020-01-31 09:34 | XMS REPORT ---
Author Author [employer] [facility] [employer] Address [address] [address] Care Team Providers Care Summer Internship Name Role Phone JULIA GARCIA Unavailable Unavailable CARLI, SEA Unavailable Unavailable JULIA GARCIA Unavailable RAFIA NIELSONNYA Unavailable BOYCE, SEA Unavailable JULIA GARCIA Unavailable YUSEF GIRON Unavailable Unavailable SURJIT GOLDMAN Unavailable Unavailable JOHNNY, QUYEN Unavailable Unavailable LINDY GALINDO Unavailable Unavailable PAUL MERLOS Unavailable CECILY SALOMON Unavailable JOHNNY, QUYEN Unavailable BOYCE, SEA Unavailable BOYCE, SEA Unavailable BOYCE, SEA Unavailable BOYCE, SEA Unavailable YAS ARANGO Unavailable MADELYN WILLSON Unavailable MADELYN WILLSON Unavailable MILDRED KEARNS Unavailable MADELYN WILLSON Unavailable MADELYN WILLSON Unavailable MADELYN WILLSON Unavailable SEA Arce Unavailable MADELYN WILLSON Unavailable MADELYN WILLSON Unavailable MADELYN WILLSON Unavailable DELMY HUTTON Unavailable MADELYN WILLSON Unavailable MADELYN WILLSON Unavailable MADELYN WILLSON Unavailable ARNOLD CASHERO, LINDY Unavailable MADELYN WILLSON Unavailable Migration, Doctor Unavailable Unavailable Migration, Doctor Unavailable Unavailable LORENA SUNSHINE, SIERRA Buck Unavailable Unavailable Migration, Doctor Unavailable Unavailable Migration, Doctor Unavailable Unavailable Migration, Doctor Unavailable Unavailable Migration, Doctor Unavailable Unavailable Migration, Doctor Unavailable Unavailable Migration, Doctor Unavailable Unavailable Migration, Doctor Unavailable Unavailable Migration, Doctor Unavailable Unavailable Migration, Doctor Unavailable Unavailable Migration, Doctor Unavailable Unavailable Migration, Doctor Unavailable Unavailable MIKE SUNSHINE, SURENDRA Sheriff Unavailable Unavailable SEA BOYCE ORACLE FINANCIAL APPLICATION DEVELOPER Unavailable Unavailable GAURANG DO, PAUL Gardiner Unavailable Unavailable ARNOLD-CASHERO, LINDY N [employer] FINANCIAL APPLICATION DEVELOPER Unavailable Unavailregi CUTLER MD, MARIANN Porter Unavailable Unavailable DOLLY DO, SUNSHINE Hare Unavailable Unavailable KAVYA SUNSHINE, YUMIKO Hare Unavailable Unavailable Migration, Doctor Unavailable Unavailable Migration, Doctor Unavailable Unavailable Migration, Doctor Unavailable Unavailable Migration, Doctor Unavailable Unavailable ZZGILMORE CASHERO, LINDY Unavailable ZZGILMORE CASHERO, LINDY Unavailable Migration, Doctor Unavailable Unavailable ZZGILMORE CASHERO, LINDY Unavailable MADELYN WILLSON Unavailable Unavailable DAYNA DO, COOPER D Unavailable Unavailable JOHNNY, QUYEN Unavailable ZZGILMORE CASHERO, LINDY Unavailable ZZGILMORE CASHERO, LINDY Unavailable ZZGILMORE CASHERO, LINDY Unavailable ZZGILMORE CASHERO, LINDY Unavailable ZZGILMORE CASHERO, LINDY Unavailable JOHNNY, QUYEN Unavailable ZZGILMORE CASHERO, LINDY Unavailable zzSAANDI VERONIQUE Unavailable ZZGILMORE CASHERO, LINDY Unavailable JOHNNY, QUYEN Unavailable Migration, Doctor Unavailable Unavailable ZZGILMORE CASHERO, LINDY Unavailable zzWERDER PAUL Unavailable zzWERDER PAUL Unavailable ZZGILMORE CASHERO, LINDY Unavailable Migration, Doctor Unavailable Unavailable ZZGILMORE CASHERO, LINDY Unavailable ISIDRA TURNERNDA Unavailable Unavailable Unavailable zzWERDER, PAUL Unavailable zzWERDER, PAUL Unavailable Migration, Doctor Unavailable Unavailable ZZGILMORE CASHERO, LINDY Unavailable JOHNNY QUYEN Unavailable ZZGILMORE CASHERO, LINDY Unavailable zzWERDER PAUL Unavailable Migration, Doctor Unavailable Unavailable ZZGILMORE CASHERO, LINDY Unavailable Migration, Doctor Unavailable Unavailable ZZGILMORE CASHERO, LINDY Unavailable ISIDRA TURNERNDA Unavailable Unavailable Unavailable Unavailable Unavailable Unavailable Unavailable Unavailable Unavailable Allergies Allergy Reported Allergen(s) Allergy Type Date of Reaction(s) Care Facility Classificati Onset Provider on Unclassified erythromycin base DA 01-23-2006 MARIANN TAYLO R Not (20 sources) MD Available ([id number]) Unclassified MENTAL MOOD CHANGES 07-07-2015 CAUSE TO MARIANN LEX DURAN Not (20 sources) HAVE S MD Available ([id number]) Encounters Encounter Date Encounter Type Encounter Diagnosis Care Provider Facility Start: Patient encounter MADELYN [facility] 01-24-2020 procedure [facility] Start: [facility] Dermatitis, MAAME Hicks [facility] 01-24-2020 CARE unspecified CARE Start: Patient encounter MADELYN [facility] 01-20-2020 [facility] Start: Patient encounter MADELYN Gardiner [facility] 12-10-2019 procedure [facility] Start: Patient encounter COOPER MCINTOSH DO [facility] [address] [facility] 06-08-2019 procedure [facility] ([id number]) Start: Patient encounter COOPER MCINTOSH DO [facility] [address] 04-22-2019 procedure [facility] ([id number]) End: 04-22-2019 Start: Patient encounter COOPER MCINTOSH DO [facility] 04-20-2019 procedure [facility] ([id number]) Start: Patient encounter COOPER MCINTOSH DO [facility] [address] 04-20-2019 procedure [facility] ([id number]) Start: Telephone encounter Unspecified MADELYN [facility] 03-31-2019 osteoarthritis, unspecified site End: 03-31-2019 Start: Telephone encounter MADELYN [facility]I [facility] 03-23-2019 End: 03-23-2019 Start: Patient encounter Encounter for general MADELYN WHEAT[facility] 03-05-2019 procedure adult medical examination without End: abnormal findings 03-05-2019 Start: Telephone encounter Lumbago with MADELYN WILLSON [facility] 03-05-2019 sciatica, left side End: 03-05-2019 Start: Telephone encounter Unspecified MADELYN PANGCHACEDIONI [facility] 02-24-2019 osteoarthritis, unspecified site End: 02-24-2019 Start: Telephone encounter Unspecified MADELYN PANGCHACEDIONI [facility] 01-21-2019 osteoarthritis, unspecified site End: 01-21-2019 Start: Telephone encounter Unspecified MADELYN [facility]IDIONI [facility] 01-20-2019 osteoarthritis, unspecified site End: 01-20-2019 Start: Telephone encounter Hypothyroidism, MADELYN WILLSON [facility] 12-15-2018 unspecified End: 12-15-2018 Start: [facility] Fibromyalgia MADELYN Hicks [facility] 12-14-2018 End: 12-14-2018 Start: Patient encounter NA NA [facility] 12-14-2018 procedure [facility] ([id number]) Start: Patient encounter NA NA [facility] 12-14-2018 procedure [facility] ([id number]) Start: Telephone encounter Unspecified MADELYN WILLSON [facility] [place] 12-08-2018 osteoarthritis, MAIN unspecified site End: 12-08-2018 Start: Patient encounter MADELYN WILLSON [facility] 10-13-2018 procedure [facility] ([id number]) Start: Patient encounter MADELYN WILLSON [facility] 09-24-2018 procedure [facility] ([id number]) Start: Patient encounter MADELYN WILLSON [facility] 08-31-2018 procedure [facility] ([id number]) Start: Patient encounter 12-23-2017 procedure Start: Patient encounter MADELYN WILLSON [facility] 12-11-2017 procedure [facility] ([id number]) Start: Patient encounter MADELYN WILLSON [facility] 10-24-2017 procedure [facility] ([id number]) Start: Patient encounter MADELYN WILLSON [facility] 10-14-2017 procedure [facility] ([id number]) Start: Patient encounter MADELYN WILLSON [facility] 10-07-2017 procedure [facility] ([id number]) Start: Emergency department NA NA Not Avai lable ([id number]) 10-02-2017 patient visit End: 10-02-2017 Start: Patient encounter 10-02-2017 procedure Start: Patient encounter MADELYN WILLSON [facility] 09-15-2017 procedure [facility] ([id number]) Start: Patient encounter ARMAAN VILLALPANDO MD Not Availab le ([id number]) 04-24-2017 procedure End: 04-29-2017 Start: Patient encounter SIERRA CARRILLO MD Not Avail able ([id number]) 01-01-2017 procedure Start: Patient encounter SEA BOYCE Not Avail able ([id number]) 01-17-2016 procedure Start: Emergency department SURENDRA MCKEON MD N ot Available ([id number]) 07-07-2015 patient visit End: 07-07-2015 Start: Patient encounter LINDY ROSE Not Available ([id number]) 07-19-2014 procedure Start: Patient encounter LINDY ROSE Not Available ([id number]) 07-11-2014 procedure Start: Emergency department SURENDRA MCKEON MD N ot Available ([id number]) 06-27-2013 patient visit End: 06-27-2013 Start: Patient encounter PAUL MERLOS DO Not Avail able ([id number]) 02-01-2013 procedure Start: Patient encounter PAUL MERLOS DO Not Avail able ([id number]) 01-08-2013 procedure Start: Patient encounter PAUL MERLOS DO Not Avail able ([id number]) 12-25-2012 procedure Start: Patient encounter PAUL MERLOS DO Not Avail able ([id number]) 12-18-2012 procedure Start: Emergency department YUMIKO HOFF MD Not Av ailable ([id number]) 08-09-2011 patient visit End: 08-09-2011 Patient encounter NA NA [facility] ([id number]) Encounter for other COOPER MCINTOSH DO [facility] examination ([id number]) Medical Equipment No Information Goals No Information Immunizations Immunizatio Immunization Notes Care Provider Facility n Date 04-20-2018 influenza, seasonal, NA NA [facility] inject[facility] ([id number]) Interventions No Information Medications Medication Drug Dates Sig Sig (Original) Class(es) (Normalized) ALPRAZolam 0.5 mg oral Benzodiaze Start: Xanax 0 .5 mg take 1 tablet by Oral route tablet pine 09-15-2013 Take 1 tablet 6 hours prior to dental (1 source) appointment and one right b efore appointment Sep, Active ciprofloxacin 500 mg Quinolone Start: take 1 tablet Cip ro 500 mg 1 tablet by Oral route oral tablet Antimicrob 10-20-2012 by mouth every every 12 ho urs for 10 day(s) Oct, (1 source) ial twelve hours 2012 Active levoFLOXacin 500 mg oral Quinolone Start: take 1 tablet Levaquin 500 mg 1 tablet by Oral route 1 tablet Antimicrob 12-26-2011 by mouth once time per day for 10 days Dec, (1 source) ial daily Active NIFEdipine 30 mg oral Dihydropyr Start: take 1 tablet NI FEdipine 30 mg take 1 tablet (30 mg) tablet idine 07-20-2013 by mouth once by oral rout e once daily Jul, (1 source) Calcium daily Active Channel Drea Payers The data below is from unstructured sources Payer Name Policy Number Subscriber Name Relationship [facility] [id number] Ivet Tilley Self / Same As Patient s Medicare [id number] Ivet Tilley Self / Same As Patient Plan of Treatment The data below is from unstructured sources Activity Details Follow Up prn Reason: Activity Details Follow Up 48-72 hours. 48-72 hours R terrell: Activity Details Follow Up 3 Months, prn Reason: Activity Details Follow Up 6 Months Reason: Activity Details Follow Up 4 Weeks Reason: Activity Details Follow Up 3 Months Reason: Activity Details Follow Up 1 Year Reason: Problems Active Problems Problem Problem Date Last Documented Episodic/Chr Provider Classificati Recorded Date onic on Asthma Unspecified asthma, uncomplicated Ch ronic (3 sources) Deficiency Anemia ; Translations: [Anemia in Chronic LINDY and other chronic kidney disease] ZZGILMORE anemia CASHERO Other Phone: (4 sources) Deficiency Anemia in chronic kidney disease ; Chronic LINDY and other Translations: [ - Anemia in chronic ZZGILMORE anemia kidney disease D63.1] CASHERO Other Phone: (4 sources) [phone] Deficiency Anemia, unspecified Episodic MAJID FA YAIR and other MD anemia (4 sources) Diseases of Elevated white blood cell count, Chr onic white blood unspecified cells (3 sources) Hypertension Hypertensive chronic kidney disease Chronic SIERRA with with stage 1 through stage 4 LORENA SUNSHINE complication chronic kidney disease, or s and unspecified chronic kidney disease secondary hypertension (7 sources) 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 ; Translations: WE RDER DO precerebral [Occlusion and stenosis of carotid arteries artery without mention of c erebral (2 sources) infarction] 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 aftercare steroids (3 sources) Other Idiopathic peripheral neuropathy ; Chronic Doctor nervous Translations: [Idiopathic Migration system peripheral neuropathy] disorders (17 sources) 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, unspecified ; [employer] system Translations: [ - Idiopathic CASHER O disorders peripheral neuropathy G60.9] Other Phone: (20 sources) [phone] Other Other chronic pain ; Translations: Chronic LINDY nervous [ - Other chronic pain G89.29] [employer] [facility] system CASHERO disorders Other Phone: (20 sources) [phone] Other Chronic pain ; Translations: [Other Chronic LINDY nervous chronic pain] [employer] system CASHERO disorders Other Phone: (13 sources) Other Anesthesia of skin ; Translations: Episodic Doctor nervous [ - Sensory loss R20.0] Migration system disorders (20 sources) Paralysis Cerebral palsy, unspecified Chronic (3 sources) Residual Acquired absence of other specified Episodic codes; parts of digestive tract unclassified (3 sources) Screening Personal history of nicotine Episodi c and history dependence of mental health and substance abuse codes (3 sources) Spondylosis; 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, lumbar regio n ; al disc Translations: [LOW BACK BANDAR N] disorders; other back problems (3 sources) Past or Other Problems Problem Problem Date Last Documented Episodic/Chr Provider Classificati Recorded Date onic on E Codes: Home accidents Episodic SURENDRA Place of [place] occurrence (1 source) Other Other symptoms involving Episodic JOSHUA PEDRO circulatory cardiovascular system WERDER DO disease (3 sources) Other ear Tinnitus, unspecified Episodic MARIANN OMAYRA and sense MD organ disorders (2 sources) Other Personal history of other disorders Episodic PAUL nervous of nervous system and sense organs WERDER DO system disorders (1 source) Other Absence of sensation ; Episodic Docto r nervous Translations: [Sensory loss] Migrat ion system disorders (17 sources) Poisoning by Poisoning by other specified Episodic YUMIKO other analgesics and antipyretics KAVYA SUNSHINE medications and drugs (2 sources) Poisoning by Poisoning by other antipsychotics, Episodic SURENDRA psychotropic neuroleptics, and major [place] agents tranquilizers (2 sources) Residual Family history of other Episodic EDNA EN codes; neurological diseases WERDER DO unclassified (1 source) Skin and Unspecified local infection of skin Episodic SUNSHINE DOLLY DO subcutaneous and subcutaneous tissue tissue infections (2 sources) Suicide and Suicide and self-inflicted YUMIKO intentional poisoning by other specified drugs KAVYA SUNSHINE self-inflict and medicinal substances ; ed injury Translations: [Suicide and (2 sources) self-inflicted poisoning by analgesics, antipyretics, and antirheumatics] Procedures Date Procedure Procedure Detail Performing Cl inician Start: Arthrocentesis Doctor Migration 08-11-2014 aspir&/inj interm jt/burs w/o us Start: Computer dx LINDY LEWIS 07-13-2014 mammogram add-on Other Phone: Start: Us exam, breast(s) LINDY PEÑAO 07-13-2014 Other Start: 1 25 dihydroxy LINDY LEWIS 06-29-2014 includes fractions Other if performed Start: Assay of thyroid LINDY LEWIS 06-29-2014 stimulating Other Phone: hormone tsh Start: Blood count LINDY [facility] 06-29-2014 complete auto&auto Other difrntl wbc Start: Collection venous LINDY [facility] 06-29-2014 blood venipuncture Other Start: Comprehensive LINDY [facility] 06-29-2014 metabolic panel Other Phone: Start: Lipid panel LINDY [facility] 06-29-2014 Other Start: Radex elbow 2 LINDY [facility] 06-29-2014 views Other Phone: Start: Mammogram, LINDY [facility] 06-28-2014 screening Other Phone: Start: 25 hydroxy LINDY [facility] 12-24-2012 includes fractions Other if performed Start: Antistreptolysin o LINDY [facility] 12-24-2012 titer Other Phone: Start: Assay of LINDY [facility] 12-24-2012 blood/uric acid Other Phone: Start: C-reactive protein LINDY [facility] 12-24-2012 Other Start: Collection venous LINDY [facility] 12-24-2012 blood venipuncture Other Start: Rheumatoid factor LINDY [facility] 12-24-2012 quantitative Other Phone: Start: Sedimentation rate LINDY [facility] 12-24-2012 rbc automated Other Phone: Results Test Name Value Interpreta Reference Facilit Date tion Range y Time pap smear on null Microscopic FOOTNOTE Communi observation Cyto ty stain.thin prep [facility] (Cvx) [facility] ([id number]) Microscopic normal Communi observation Cyto ty stain.thin prep [facility] (Cvx) [facility] ([id number]) not yet categorized on null Exp date Neg~+~[id number]~2019-02-10 Invalid Commun i Interpreta ty tion Code [facility] (56393) not yet categorized on 2019-12-10 COMMENT Invalid Communi Interpreta ty tion Code [facility] (78682) Prescribed Drug 1 Tramadol Invalid Communi Interpreta ty tion Code [facility] (29504) laboratory on 2019-12-10 Drug screen comment INCONSISTENT Abnormal Communi (U) [Interp] [facility] (77398) Nortramadol (U) Negative Normal <100 ng/mL Communi [Mass/Vol] [facility] (14543) traMADol (U) Negative Normal <100 ng/mL Communi [Mass/Vol] ty [facility] (57661) not yet categorized on 2019-03-05 Exp date 08/22/2019 Invalid Communi Interpreta ty tion Code [facility] (62498) GLU FINGERSTICK 62 Invalid Communi Interpreta ty tion Code [facility] (05492) Lot # [id number] Invalid Communi Interpreta ty tion Code [facility] (10984) laboratory on 2019-03-05 Cholesterol 171 mg/dL Normal <200 mg/dL Communi [Mass/Vol] [facility] (94272) Cholesterol in HDL 37 mg/dL Low >50 mg/dL Communi [Mass/Vol] [facility] (62030) Cholesterol in LDL 109 mg/dL High mg/dL Communi [Mass/Vol] (calc) [facility] (62999) Cholesterol non HDL 134 mg/dL High <130 mg/dL Commun i [Mass/Vol] (calc) ty [facility] (97635) Cholesterol.total/Ch 4.6 {ratio} Normal <5.0 Commu ni olesterol in HDL (calc) ty [Mass ratio] [facility] (36151) Triglyceride 131 mg/dL Normal <150 mg/dL Communi [Mass/Vol] ty [facility] (78083) laboratory on 2018-12-14 TSH Qn 6.27 m[IU]/L High mIU/L Communi ty [facility] (61648) not yet categorized on 2017-12-23 COMMENT Invalid Communi Interpreta ty tion Code [facility] (35655) medMATCH CONSISTENT Invalid Communi Amphetamines Interpreta ty tion Code [facility] (77664) medMATCH CONSISTENT Invalid Communi Barbiturates Interpreta ty tion Code [facility] (57430) medMATCH CONSISTENT Invalid Communi Benzodiazepines Interpreta ty tion Code [facility] (48761) medMATCH Cocaine CONSISTENT Invalid Communi Metab Interpreta ty tion Code [facility] (06624) medMATCH Marijuana CONSISTENT Invalid Communi Metab Interpreta ty tion Code [facility] (90896) medMATCH Methadone CONSISTENT Invalid Communi Metab Interpreta ty tion Code [facility] (12360) medMATCH Opiates CONSISTENT Invalid Communi Interpreta ty tion Code [facility] (68233) medMATCH Oxycodone CONSISTENT Invalid Communi Interpreta ty tion Code [facility] (36578) medMATCH CONSISTENT Invalid Communi Phencyclidine Interpreta ty tion Code [facility] (51333) Prescribed Drug 1 Tramadol Invalid Communi Interpreta ty tion Code [facility] (50080) Prescribed Drug 2 Gabapentin Invalid Communi Interpreta ty tion Code [facility] (78978) Prescribed Drug 3 Tramadol Invalid Communi Interpreta ty tion Code [facility] (42001) Prescribed Drug 4 Gabapentin Invalid Communi Interpreta ty tion Code [facility] (54780) laboratory on 2017-12-23 Amphetamines Ql (U) Negative Invalid <500 ng/mL Commun i Interpreta ty tion Code [facility] (71509) Barbiturates Ql (U) Negative Invalid <300 ng/mL Commun i Interpreta ty tion Code [facility] (91349) Benzodiazepines Ql Negative Invalid <100 ng/mL Communi (U) Interpreta ty tion Code [facility] (77938) Benzoylecgonine Ql Negative Invalid <150 ng/mL Communi (U) Interpreta ty tion Code [facility] (51318) Creatinine (U) 31.2 mg/dL Invalid > or = Communi [Mass/Vol] Interpreta 20.0 mg/dL ty tion Code [facility] (21852) Methadone Ql (U) Negative Invalid <100 ng/mL Communi Interpreta ty tion Code [facility] (88736) Opiates Ql (U) Negative Invalid <100 ng/mL Communi Interpreta ty tion Code [facility] (86195) Oxidants Ql (U) Negative Invalid <200 Communi Interpreta mcg/mL ty tion Code [facility] (74272) oxyCODONE Ql (U) Negative Invalid <100 ng/mL Communi Interpreta ty tion Code [facility] (74099) pH (U) 6.41 [pH] Invalid 4.5 - 9.0 Communi Interpreta ty tion Code [facility] (76102) Phencyclidine Ql (U) Negative Invalid <25 ng/mL Commu ni Interpreta ty tion Code [facility] (57351) Tetrahydrocannabinol Negative Invalid <20 ng/mL Commu ni Ql (U) Interpreta ty tion Code [facility] (11884) laboratory on 2016-10-31 Albumin [Mass/Vol] 4.5 g/dL Invalid 3.5-5.5 Not 04-2 0-2 Interpreta g/dL Availab 017 tion Code le 07:43-0 (18683) 400 Albumin/Globulin 1.7 {ratio} Invalid 1.2-2.2 Not 04-2 0-2 [Mass ratio] Interpreta Availab 017 tion Code le 07:57-0 (02366) 400 ALP [Catalytic 111 U/L Invalid 39-117 Not 04-20-2 activity/Vol] Interpreta IU/L Availab 017 tion Code le 07:57-0 (98705) 400 ALT [Catalytic 13 U/L Invalid 0-32 IU/L Not 04-20-2 activity/Vol] Interpreta Availab 017 tion Code le 07:57-0 (88856) 400 AST [Catalytic 11 U/L Invalid 0-40 IU/L Not 04-20-2 activity/Vol] Interpreta Availab 017 tion Code le 07:57-0 (11415) 400 Bilirubin [Mass/Vol] mg/dL Invalid 0.0-1.2 Not 04 -20-2 Interpreta mg/dL Availab 017 tion Code le 07:57-0 (36999) 400 Calcium [Mass/Vol] 8.6 mg/dL Low 8.7-10.2 Not 04-2 0-2 mg/dL Availab 017 le 07:53-0 (06299) 400 Chloride [Moles/Vol] 103 mmol/L Invalid 96-106 Not 0 4-20-2 Interpreta mmol/L Availab 017 tion Code le 07:40-0 (34849) 400 CO2 [Moles/Vol] 22 mmol/L Invalid 18-29 Not 04-20-2 Interpreta mmol/L Availab 017 tion Code le 07:53-0 (52000) 400 Creatinine 1.83 mg/dL High 0.57-1.00 Not 04-20-2 [Mass/Vol] mg/dL Availab 017 le 09:06-0 (24466) 400 GFR/1.73 sq 37 mL/min/{1.73_m2} Low >59 Not 0 4-20-2 M.predicted among mL/min/1.7 Availab 017 blacks MDRD 3 le 09:06-0 (S/P/Bld) [Vol (84310) 400 rate/Area] GFR/1.73 sq 32 mL/min/{1.73_m2} Low >59 Not 0 4-20-2 M.predicted among mL/min/1.7 Avail[facility] 017 non-blacks MDRD 3 le 09:06-0 (S/P/Bld) [Vol (25481) 400 rate/Area] Globulin (S) 2.6 g/dL Invalid 1.5-4.5 Not 20-2 [Mass/Vol] Interpreta g/dL Avail[facility] 017 tion Code le 07:57-0 (79295) 400 Glucose [Mass/Vol] 109 mg/dL High 65-99 Not 04-2 0-2 mg/dL Avail[facility] 017 le 07:53-0 (38411) 400 Potassium 4.2 mmol/L Invalid 3.5-5.2 Not 20-2 [Moles/Vol] Interpreta mmol/L Avail[facility] 017 tion Code le 07:40-0 (55709) 400 Protein [Mass/Vol] 7.1 g/dL Invalid 6.0-8.5 Not 04-2 0-2 Interpreta g/dL Avail[facility] 017 tion Code le 07:57-0 (16257) 400 Sodium [Moles/Vol] 141 mmol/L Invalid 134-144 Not 20-2 Interpreta mmol/L Availab 017 tion Code le 07:40-0 (97020) 400 Urea nitrogen 19 mg/dL Invalid 6-24 mg/dL Not 10-31-2 [Mass/Vol] Interpreta Availab 017 tion Code le 07:57-0 (15505) 400 Urea 10 mg/mg Invalid 9-23 Not 10-31-2 nitrogen/Creatinine Interpreta Availab 017 [Mass ratio] tion Code le 09:06-0 (23019) 400 laboratory on 2016-10-05 Creatinine (24H U) 1015 Invalid 800-1800 Not 03-2 5-2 [Mass/Time] Interpreta mg/24 hr Availab 017 tion Code le 10:41-0 (34189) 400 Creatinine (U) 28.6 mg/dL Invalid Not Estab. Not 10-05- 2 [Mass/Vol] Interpreta mg/dL Avail[facility] 017 tion Code le 10:41-0 (11679) 400 Creatinine 1.69 mg/dL High 0.57-1.00 Not 10-05-2 [Mass/Vol] mg/dL Availab 017 le 09:12-0 (56749) 400 Creatinine renal 42 Low 88-128 Not 10-05- 2 clearance (24H mL/min Avail[facility] 017 U+S/P) [Vol/Time] le 10:41-0 (06992) 400 GFR/1.73 sq 41 mL/min/{1.73_m2} Low >59 Not 0 3-25-2 M.predicted among mL/min/1.7 Avail[facility] 017 blacks MDRD 3 le 09:12-0 (S/P/Bld) [Vol (75556) 400 rate/Area] GFR/1.73 sq 35 mL/min/{1.73_m2} Low >59 Not 0 3-25-2 M.predicted among mL/min/1.7 Avail[facility] 017 non-blacks MDRD 3 le 09:12-0 (S/P/Bld) [Vol (35211) 400 rate/Area] Social History The data below is from unstructured sources History Response Recorde d Date/Time Hx Family Cancer Y maternal grandma( lung) and grandpa (lip ca) 04/07/11 5:25pm Hx Family Lung Cancer Y maternal grandma 04/07/11 5:25pm Hx Family Cardiac Disorders Y matern al grandmother and father 04/07/11 5:25pm Hx Family Myocardial Infarction Y ma ternal grandmother and grandfather 04/07/11 5:25pm History Response Recorde d Date/Time Alcohol Use Denies Use 0 03/19/13 12:25am Recreational Drug Use N 03/19/13 12:25am Vital Signs Date Time Vital Sign Value Performing Clinician Facil ity 06-28-2014 Body height 182.88 cm [facility] 08:48-[address] Other Phone: [employer]) 06-28-2014 Body temperature 97.3 [degF] [facility] 08:48-[address] [facility] Other Phone: [employer]) 06-28-2014 Body weight 81.14 kg [facility] 08:48-1667 [facility]: [employer]) 03-16-2014 Body height 177.[address] [facility] 10:34-0400 Other Phone: [facility] [place] ([id number]) 03-16-2014 Body temperature 99.2 [degF] [facility] 10:34-0400 Other Phone: [facility] [place] ([id number]) 03-16-2014 Body weight 83.[address] [facility] 10:34-0400 Other Phone: [facility] [place] ([id number]) 09-07-2013 Body height 177.8 cm [facility] 10:59-0500 [facility] Other Phone: [place] ([id number]) 09-07-2013 Body temperature 98.2 [degF] [facility] 10:59-0500 [facility] Other Phone: [place] (83078) 09-07-2013 Body weight 88 kg [facility] 10:59-0500 [facility] Other Phone: [place] ([id number]) 07-20-2013 Body height 177.8 cm [facility] 08:54-0500 [facility] Other Phone: [place] [address]) 07-20-2013 Body temperature 98 [degF] [facility] 08:54-0500 [facility] Other Phone: [place] ([phone]) 07-20-2013 Body weight 92.99 kg [facility] 08:54-0500 [facility] Other Phone: [place] (93363) 05-06-2013 Body height 177.8 cm [facility] 10:440405 [facility] ([id number]) 05-06-2013 Body temperature 98.5 [degF] [facility] 10:440400 [facility] ([id number]) 05-06-2013 Body weight 93.61 kg [facility] 10:44-0400 [facility] ([id number]) 04-06-2013 Body height 177.8 cm [facility] 12: [facility] Other Phone: [place] ([phone]) 04-06-2013 Body temperature 98.5 [degF] [facility] 12: [facility] Other Phone: [place] ([id number]) 04-06-2013 Body weight 95.26 kg [facility] 12: [facility] Phone: [place] ([phone]) 03-25-2013 Body height 177.8 cm [facility] 10:23-0 [facility] ([id number]) 03-25-2013 Body temperature 98 [degF] [facility] 10:23-040 [facility] ([id number]) 03-25-2013 Body weight 91.17 kg [facility] 10:23-0400 [facility] ([id number]) 03-18-2013 Body height 177.8 cm [facility] 12: [facility] Phone: [place] (13909) 03-18-2013 Body temperature 98.7 [degF] [facility] 12: [facility] Other Phone: [place] ([id number]) 03-18-2013 Body weight 92.08 kg [facility] 12: [facility] Other Phone: [place] (41194) 02-23-2013 Body height 177.8 cm [facility] 12: [facility] Other Phone: [place] ([id number]) 02-23-2013 Body temperature 97.9 [degF] [facility] 12: [facility] Other Phone: [place] (36728) 02-23-2013 Body weight 91.3 kg [facility] 12: [facility] Other Phone: [place] ([phone]) 01-28-2013 Body height 177.8 cm [facility] 13: Other Phone: [facility] [place] ([id number]) 01-28-2013 Body temperature 99.6 [degF] [facility] 13: Other Phone: [facility] [place] ([id number]) 01-28-2013 Body weight 93.44 kg [facility] 13: Other Phone: [facility] [place] ([id number]) 01-05-2013 Body height 152.4 cm [facility] 15:0400 Other Phone: [facility] [place] ([id number]) 01-05-2013 Body temperature 99.4 [degF] [facility] 15:0400 Other Phone: [place] [facility] [place] ([id number]) 01-05-2013 Body weight 95.26 kg [facility] 15:250400 Other Phone: [facility] [place] ([id number]) 12-24-2012 Body height 177.8 cm [facility] 11:56-0400 [facility] Other Phone: [place] ([id number]) 12-24-2012 Body temperature 98.9 [degF] [facility] 11:56-0400 [facility] Other Phone: [place] ([id number]) 12-24-2012 Body weight 96.84 kg [facility] 11:56-0400 [facility] Other Phone: [place] (83480) 06-24-2012 Body height 177.8 cm [facility]alt 09:030500 Other Phone: [facility] [place] (07890) 06-24-2012 Body temperature 98.8 [degF] [facility] 09:03-0500 Other Phone: [facility] [place] ([id number]) 06-24-2012 Body weight 90.86 kg [facility] 09:03-0500 Other Phone: [facility] [place] (76653) 12-31-2011 Body height 177.8 cm [facility] 16:46-0400 [facility] ([id number]) 12-31-2011 Body weight 96.76 kg Doctor [facility] 16:46-0400 [facility] ([id number]) 12-26-2011 Body height 177.8 cm [facility] 19:32-0400 Other Phone: [facility] [place] (85279) 12-26-2011 Body temperature 101 [degF] [facility] 19:32-0400 Other Phone: [facility] [place] (86939) 12-26-2011 Body weight 97.61 kg [facility] 19:32-0400 Other Phone: [facility] [place] (56351) 10-14-2011 Body weight 97.66 kg [facility] 15:33-0400 [facility] ([id number]) Functional Status No Information Mental Status No Information Summary Purpose eClinicalWorks SubmissioneClinicalWorks SubmissioneClinicalWorks SubmissioneClinicalWorks SubmissioneClinicalWorks SubmissioneClinicalWorks SubmissioneClinicalWorks SubmissioneClinicalWorks SubmissioneClinicalWorks SubmissioneClinicalWorks SubmissioneClinicalWorks Submission Advance Directives Directive Response Recor ded Date Advance Directives N 12/24 12:25am Health Care Power of Librarian N 03/19/13 12:25am Organ Donor Y 03/19/13 1 2:25am Additional Source Comments This clinical document has been generated using [employer] software that has been certified by the Office of the National Coordinator for Health Information Technology (ONC 15.99.04.3023.Diam.31.00.0.641703) and the National Committee for [employer] (NCQA, as an eMeasure certified technology). FOR RECORDS PERTAINING TO PATIENTS WHO ARE OR HAVE BEEN ENROLLED IN A CHEMICAL D EPENDENCY/SUBSTANCE ABUSE PROGRAM, SOME INFORMATION MAY BE OMITTED. This clinica l summary was aggregated from multiple sources. Caution should be exercised in using it in the provision of clinical care. This summary normalizes information from multiple sources, and as a consequence, information in this document may ma terially change the coding, format and clinical context of patient data. In benton tion, data may be omitted in some cases. CLINICAL DECISIONS SHOULD BE BASED ON T HE PRIMARY CLINICAL RECORDS. [employer] provides no warranty or guara ntee of the accuracy or completeness of information in this document.The followi ng information is based on time limited clinical information UNRECOGNIZED CONTENT PROVIDED BELOW FOR UNRECOGNIZED SECTION REASON FOR VISIT [id number]-[id number]-EohMHZ-CbiJQF-TqnSFF-MzrGYO -GqgUMZ-FgzJDR-Bph
[2020-01-31 09:35] LABS: CALCIUM 9.5 MG/DL (8.5-10.1)
[2020-01-31 09:35] LABS: BACTERIA,URINE NEGATIVE /HPF; SQUAMOUS EPITHELIAL CELL,UR RARE /HPF
--- OUTSIDE RECORDS SUMMARY | 2020-01-31 09:35 | XMS REPORT ---
Author Author Ivet Knott Doctor Organization [facility] Address Unknown Phone Unavailable Care Team Providers Care Consumer Services Consultant Name Role Phone Migration, Doctor Unavailable Unavailable PROBLEMS Type Condition ICD9-CM Code [id number] Code Onset Dates Condition S tatus SNOMED Code Problem Essential hypertension I10 Active 52846929 Problem GERD (gastroesophageal reflux disease) K21.9 Active 199104816 Problem Schizo affective schizophrenia F25.0 Active 515644666 Problem Stage 3 chronic kidney disease N18.3 Active 478141362 Problem Fibromyalgia M79.7 Active 7123894 05 Problem Vitamin D deficiency E55.9 Active 32611461 Problem Chronic kidney disease, stage 4 (severe) N18.4 Active [id number] Problem Bilateral carotid artery disease I77.9 Active 297480182 Problem Anemia in chronic kidney disease D63.1 Active 269755132 Problem Osteoarthritis M19.90 Active 46325 5006 Problem Iron deficiency anemia, unspecified iron deficiency an emia type D50.9 Active 63328529 Problem Secondary hyperparathyroidism, not elsewhere classified E21.1 Active 26423441 Problem Acquired hypothyroidism E03.9 Active 042700574 Problem Seasonal allergic rhinitis due to pollen J30.1 Active 96210667 ALLERGIES No Information ENCOUNTERS Encounter Location Date Diagnosis [facility] [address] [facility] [id number] [address] [place] [address] Jan, Eczema, unspecified type L30 .9 [facility] [address] [facility] [id number] [address] [place] [address] Jan, Essential hypertension I10 ; Chronic kidney disease, stage 4 (severe) N18.4 ; Anemia in chronic kidney disease D63.1 and Fibromyalgia M79.[address] [id number] [address] Dec, Osteoarthritis M19.90 [facility] [address] [facility] [id number] [address] [place] [address] November, Encounter for medication mon itoring Z51.[address] [id number], [place] [address] November, Encounter for medication mon itoring Z51.81 and Osteoarthritis M19.90 [facility] [address] [facility] [id number] [address] [place] [address] November, Seasonal allergic rhinitis d ue to pollen J30.1 [facility] [address] [facility] [id number] [address] [place] [address] 14 Oct, 2019 Lumbar radiculopathy M54.16 ; Fibromyalgia M79.7 ; Essential hypertension I10 and GERD (gastroesophageal reflux disease) K21.9 [facility] [address] [facility] [id number] [address] [place] [address] 03 Oct, 2019 Osteoarthritis M19.90 [facility] [address] [place] [id number] [address] [place] [address] Sep, [facility] [address] [facility] [id number] [address] [place] [address] Aug, Osteoarthritis M19.90 [facility] [address] [place] [id number] [address] [place] [address] Jul, Osteoarthritis M19.90 [facility] [address] [place] [id number] [address] [place] [address] Jun, Osteoarthritis M19.90 [facility] [address] [facility] [id number] [address] [place] [address] Jun, Herpes zoster without compli cation B02.9 [facility] [address] [facility] [id number] [address] [place] [address] May, Osteoarthritis M19.90 [facility] [address] [facility] [id number] [address] [place] [address] May, [facility] [address] [facility] [id number] [address] [place] [address] Apr, [facility] [address] [facility] [id number] [address] [place] [address] 18 Mar, 2019 Osteoarthritis M19.90 [facility] [address] [facility] [id number] [address] [place] [address] Mar, [facility] [address] [facility] [id number] [address] [place] [address] Feb, Lumbago with sciatica, left side M54.42 ; Lumbago with sciatica, right side M54.41 and Other chronic pain G89.29 [facility] [address] [facility] [id number] [address] [place] [address] Feb, Encounter for Medicare annua l wellness exam Z00.00 ; Schizo affective schizophrenia F25.0 ; Essential hypertension I10 ; GERD (gastroesophageal reflux disease) K21.9 ; Secondary hyperparathyroidism, not elsewhere classified E21.1 ; Idiopathic peripheral neuropathy G60.9 ; Stage 3 chronic kidney disease N18.3 ; Acquired hypothyroidism E03.9 ; Bilateral carotid artery disease I77.9 and Hypothyroidism E03.9 [place] [address] [facility] [id number] [address] [place] [address] Feb, Osteoarthritis M19.90 [facility] [address] [facility] [id number] [address] [place] [address] Jan, Osteoarthritis M19.90 [place] [address] [facility] [id number] [address] [place] [address] Jan, Osteoarthritis M19.90 [facility] [address] [facility] [id number] [address] [place] [address] Dec, Acquired hypothyroidism E03. 9 [facility] [address] [facility] [id number] [address] [place] [address] Dec, Fibromyalgia M79.7 ; Hypothy roidism E03.9 ; Essential hypertension I10 and Sensory loss R20.[address] [id number], [place] [address] November, Osteoarthritis M19.90 [facility] [address] [facility] [id number] [address] [place] [address] Oct, Osteoarthritis M19.90 [facility] [address] [facility] [id number] [address] [place] [address] Oct, Sore throat J02.9 and Acute nasopharyngitis J00 [facility] [address] [facility] [id number] [address] [place] [address] Sep, Osteoarthritis M19.90 [facility] [address] [facility] [id number] [address] [place] [address] Sep, Acute non-recurrent maxillar y sinusitis J01.00 [facility] [address] [facility] [id number] [address] [place] [address] Aug, Acute non-recurrent pansinus itis J01.40 [facility] [id number] [place] [address] Jul, Osteoarthritis M19.90 [facility] [address] [place] [id number] [address] [place] [address] Jul, [facility] [address] [place] [id number] [address] [place] [address] Apr, Osteoarthritis M19.90 [facility] [address] [place] [id number] [address] [place] [address] Apr, Fibromyalgia M79.7 ; Essenti al hypertension I10 ; Encounter for immunization Z23 ; Stage 3 chronic kidney disease N18.3 and Depression F32.9 [facility] [address] [facility] [id number] [address] [place] [address] Dec, Fibromyalgia M79.7 ; Osteoar thritis M19.90 and Encounter for medication management Z79.899 [facility] [address] [facility] [id number] [address] [place] [address] November, Nausea and vomiting, intract ability of vomiting not specified, unspecified vomiting type R11.2 and Dizziness R42 [place] [address] [place] [id number] [address] [place] [address] November, Fibromyalgia M79.7 [place] [address] [address] November, Medicare annual wellness vis it, initial Z00.00 ; Anxiety F41.9 ; Depression F32.9 ; Stage 3 chronic kidney disease N18.3 ; Fibromyalgia M79.7 ; Essential hypertension I10 ; Secondary hyperparathyroidism, not elsewhere classified E21.1 ; Osteoarthritis M19.90 ; Hypothyroidism E03.9 and Encounter for immunization Z23 [place] [address] [address] Oct, [place] [address] [address] Oct, Sebaceous cyst L72.3 [place] [address] [address] Sep, Low back pain, unspecified b ack pain laterality, unspecified chronicity, with sciatica presence unspecified M54.5 and Secondary hyperparathyroidism, not elsewhere classified E21.1 [place] [address] [address] Sep, Fibromyalgia M79.7 [place] [address] [address] Sep, Fibromyalgia M79.7 ; Plantar fasciitis, bilateral M72.2 ; Essential hypertension I10 ; Depression F32.9 and Epidermoid cyst L72.0 [place] [address] [address] Jul, [place] [address] [address] Jul, Fibromyalgia M79.7 ; Iron de ficiency anemia, unspecified iron deficiency anemia type D50.9 and Acute nasopharyngitis J00 [facility] [address] [address] Jun, Sore throat J02.9 and Acute serous otitis media of left ear, recurrence not specified H65.02 [place] [address] [address] Jun, Hypothyroidism E03.9 [place] [address] [address] Jun, [place] [address] [address] Jun, Hypothyroidism E03.9 ; Essen tial hypertension I10 and Osteoarthritis M19.90 [place] [address] [address] May, [place] [address] [address] May, [place] [address] [address] Feb, [place] [address] [address] Feb, Leonela-menopausal N95.1 and To bacco use Z72.0 [place] [address] [address] Jan, [place] [address] [address] Jan, Osteoarthritis M19.90 ; Bila teral carotid artery disease I77.9 ; Raynauds syndrome I73.00 ; Essential hypertension I10 ; Allergic rhinitis J30.9 ; Stage 3 chronic kidney disease N18.3 ; Fibromyalgia M79.7 ; Hypothyroidism E03.9 ; GERD (gastroesophageal reflux disease) K21.9 and Vitamin D deficiency E55.9 [place] [address] [place] [id number] [address] [place] [address] Dec, Raynauds syndrome I73.00 ; P lantar fascial fibromatosis M72.2 ; Osteoarthritis M19.90 and Fibromyalgia M79.7 [facility] [address] [id number] [address] [place] [address] Dec, [facility] [address] [id number] [address] [place] [address] Dec, [facility] [address] [id number] [address] [place] [address] Oct, Function kidney decreased N2 8.9 [facility] [address] [id number] [address] [place] [id number] Oct, Dental examination Z01.20 [facility] [address] [id number] [address] [place] [address] 18 Oct, 2016 Essential hypertension I10 a nd Function kidney decreased N28.9 [facility] [address] [id number] [address] [place] [id number] Oct, Dental examination Z01.20 [facility] [address] [id number] [address] [place] [address] Oct, [facility] [address] [facility] [id number] [address] [place] [address] 24 Sep, 2016 Other specified disorders in volving the immune mechanism D89.89 and Schizo affective schizophrenia F25.0 [facility] [address] [facility] [id number] [address] [place] [address] Sep, Schizo affective schizophren ia F25.0 [facility] [address] [id number] [address] [place] [address] Sep, Eustachian tube dysfunction, bilateral H69.83 [facility] [address] [id number] [address] [place] [address] 15 Sep, 2016 [facility] [address] [facility] [id number] [address] [place] [address] Sep, [facility] [address] [facility] [id number] [address] [place] [address] Sep, [facility] [address] [place] [address] Sep, Eustachian tube dysfunction, bilateral H69.83 [place] [address] [address] Sep, Allergic rhinitis J30.9 ; Es sential hypertension I10 ; Hypothyroidism E03.9 and Schizo affective schizophrenia F25.0 [facility] [address] [address] Jul, Eustachian tube dysfunction, bilateral H69.83 and Visit for TB skin test Z11.1 [facility] [address] [address] Jul, Subacute pansinusitis J01.40 [place] [address] [address] Jun, Schizo affective schizophren ia F25.0 ; Depression F32.9 ; Allergic rhinitis J30.9 ; Raynauds syndrome I73.00 ; Essential hypertension I10 ; Slow transit constipation K59.01 ; GERD (gastroesophageal reflux disease) K21.9 ; Hypothyroidism E03.9 ; Nicotine addiction F17.200 ; Other viral agents as the cause of diseases classified elsewhere B97.89 ; Acute upper respiratory infection, unspecified J06.9 and Osteoarthritis M19.90 [place] [address] [address] Jun, Allergic rhinitis J30.9 and GERD (gastroesophageal reflux disease) K21.9 [place] [address] [place] [id number] [address] [place] [address] May, [place] [address] [address] Mar, Schizo affective schizophren ia F25.0 [place] [address] [place] [id number] [address] [place] [address] Mar, Schizo affective schizophren ia F25.0 [place] [address] [place] [id number] [address] [place] [address] 15 Mar, 2016 Schizo affective schizophren ia F25.0 [place] [address] [address] 06 Mar, 2016 Acute non-recurrent maxillar y sinusitis J01.00 [place] [address] [place] [address] Feb, Schizo affective schizophren ia F25.0 [place] [address] [address] Feb, Contact dermatitis and eczem a L25.9 [place] [address] [address] Jan, [place] [address] [address] Jan, Schizo affective schizophren ia F25.0 ; Slow transit constipation K59.01 ; Essential hypertension I10 ; GERD (gastroesophageal reflux disease) K21.9 ; Hypothyroidism E03.9 ; Osteoarthritis M19.90 ; Low back pain, unspecified back pain laterality, unspecified chronicity, with sciatica presence unspecified M54.5 and Bilateral carotid artery disease I77.9 [place] [address] [place] [id number] [address] [place] [address] Oct, [place] [address] [address] Sep, Hypothyroid E03.9 [place] [address] [place] [id number] [address] [place] [address] Sep, Schizo affective schizophren ia F25.0 ; Depression F32.9 ; Anxiety F41.9 ; Allergic rhinitis J30.9 ; Raynauds syndrome I73.00 ; Insomnia G47.00 ; Essential hypertension I10 ; GERD (gastroesophageal reflux disease) K21.9 ; Hypothyroidism E03.9 and Vitamin D deficiency E55.9 [place] [address] [place] [id number] [address] [place] [address] Sep, [facility] [address] [address] Sep, [place] [address] [address] 15 Aug, 2015 Allergic rhinitis J30.9 ; De pression F32.9 ; Anxiety F41.9 ; Raynauds syndrome I73.00 ; Insomnia G47.00 and GERD (gastroesophageal reflux disease) K21.9 [place] [address] [address] Aug, MONICA (secretory otitis media) H65.90 and Raynauds syndrome I73.00 [facility] [address] [address] Jul, Acute otitis externa of both ears, unspecified type H60.503 [place] [address] [address] Jun, [place] [address] [address] Jun, Essential hypertension I10 ; Allergic rhinitis J30.9 ; Hypothyroidism E03.9 and Osteoarthritis M19.90 [place] [address] [address] Jun, Routine adult health mainten ance Z00.00 ; Hypothyroidism E03.9 ; Essential hypertension I10 ; Insomnia G47.00 ; Nicotine addiction F17.200 ; Raynauds syndrome I73.00 ; GERD (gastroesophageal reflux disease) K21.9 ; Allergic rhinitis J30.9 ; Anxiety F41.9 ; Depression F32.9 and Schizo affective schizophrenia F25.0 [place] [address] [address] May, Upper respiratory tract infe ction, unspecified type J06.9 [place] [address] [address] Mar, [facility] [address] [id number] CATHY, Payam S [id number] Mar, [facility] [address] [id number] [address] [place] [address], [place] [address] Mar, [facility] [address] [id number] [address] [place] [address], [place] [address] Mar, [facility] [address] [id number] [address] [place] [address] Feb, Jaw pain 784.92 and Environm ental and seasonal allergies 477.8 [facility] [address] [id number] [address] [place] [address], [place] [address] Feb, [facility] [address] [id number] [address] [place] [address] Oct, [facility] [address] [id number] [address] [place] [address] Oct, [facility] [address] [id number] [address] [place] [address] Oct, [facility] [address] [id number] [address] [place] [address], [place] [address] Oct, [facility] [address] [id number] [address] [place] [address] Sep, [facility] [address] [id number] [address] [place] [address] Sep, [facility] [address] [id number] [address] [place] [address] Jul, [facility] [address] [id number] [address] [place] [address] Jul, [facility] [address] [id number] [address] [place] [address] Jul, [facility] [address] [id number] [address] [place] [address] Jul, [facility] [address] [id number] [address] [place] [address], [place] [address] Jul, [facility] [address] [id number] [address] [place] [address], [place] [address] Jul, [facility] [address] [id number] [address] [place] [address], [place] [address] Jul, [facility] [address] [id number] [address] [place] [address], [place] [address] Jun, [facility] [address] [id number] [address] [place] [address], [place] [address] 31 Jun, 2014 [facility] [address] [id number] [address] [place] [address], [place] [address] Jun, [facility] [address] [id number] [address] [place] [address], [place] [address] 18 Jun, 2014 [facility] [address] [id number] [address] [place] [address], [place] [address] 17 Jun, 2014 [facility] [address] [id number] [address] [place] [address], [place] [address] 17 Jun, 2014 [facility] [address] [id number] [address] [place] [address], [place] [address] 16 Jun, 2014 [facility] [address] [id number] [address] [place] [address], [place] [address] 16 Jun, 2014 [facility] [address] [id number] [address] [place] [address], [place] [address] 30 Apr, 2014 [facility] [address] [id number] [address] [place] [address], [place] [address] 30 Apr, 2014 [facility] [address] [id number] [address] [place] [address], [place] [address] 17 Mar, 2014 [facility] [address] [id number] [address] [place] [address], [place] [address] 17 Mar, 2014 [facility] [address] [id number] [address] [place] [address], [place] [address] Mar, [facility] [address] [id number] [address] [place] [address], [place] [address] Mar, [facility] [address] [id number] [address] [place] [address], [place] [address] Jan, [facility] [address] [id number] [address] [place] [address], [place] [address] Jan, [facility] [address] [id number] [address] [place] [address], [place] [address] Oct, [facility] [address] [id number] [address] [place] [address], [place] [address] Oct, [facility] [address] [id number] [address] [place] [address], [place] [address] Sep, [facility] [address] [id number] [address] [place] [address], [place] [address] Sep, [facility] [address] [id number] [address] [place] [address], [place] [address] Sep, [facility] [address] [id number] [address] [place] [address], [place] [address] Sep, [facility] [address] [id number] [address] [place] [address], [place] [address] Sep, [facility] [address] [id number] [address] [place] [address], [place] [address] Sep, [facility] [address] [id number] [address] [place] [address], [place] [address] Aug, [facility] [address] [id number] [address] [place] [address], [place] [address] Aug, [facility] [address] [id number] [address] [place] [address], [place] [address] Jul, [facility] [address] [id number] [address] [place] [address], [place] [id number] Jul, [facility] [address] [id number] [address] [place] [address], [place] [id number] Jul, [facility] [address] [id number] [address] [place] [address], [place] [id number] Jul, [facility] [address] [id number] [address] [place] [address], [place] [id number] Jun, [facility] [address] [id number] [address] [place] [address], [place] [id number] Jun, [facility] [address] [id number] [address] [place] [address], [place] [id number] May, [facility] [address] [id number] [address] [place] [address], [place] [id number] May, [facility] [address] [id number] [address] [place] [address], [place] [id number] Apr, [facility] [address] [id number] [address] [place] [address], [place] [id number] Apr, [facility] [address] [id number] [address] [place] [address], [place] [id number] Apr, [facility] [address] [id number] [address] [place] [address], [place] [id number] Apr, [facility] [address] [id number] [address] [place] [address], [place] [id number] Apr, [facility] [address] [id number] [address] [place] [address], [place] [id number] Apr, [facility] [address] [id number] [address] [place] [address], [place] [id number] Mar, [facility] [address] [id number] [address] [place] [address], [place] [id number] Mar, [facility] [address] [id number] [address] [place] [address], [place] [id number] 09 Mar, 2013 [facility] [address] [id number] [address] [place] [address], [place] [id number] 05 Mar, 2013 [facility] [address] [id number] [address] [place] [address], [place] [id number] 05 Mar, 2013 [facility] [address] [id number] [address] [place] [address], [place] [id number] Feb, [facility] [address] [id number] [address] [place] [address], [place] [id number] Feb, [facility] [address] [id number] [address] [place] [address], [place] [address] Feb, [facility] [address] [id number] [address] [place] [address], [place] [address] Feb, [facility] [address] [id number] [address] [place] [address], [place] [address] Jan, [facility] [address] [id number] [address] [place] [address], [place] [address] Jan, [facility] [address] [id number] [address] [place] [address], [place] [address] Jan, [facility] [address] [id number] [address] [place] [address], [place] [address] Jan, [facility] [address] [id number] [address] [place] [address], [place] [address] Jan, [facility] [address] [id number] [address] [place] [address], [place] [address] Jan, [facility] [address] [id number] [address] [place] [address], [place] [address] Dec, [facility] [address] [id number] [address] [place] [address], [place] [address] Dec, [facility] [address] [id number] [address] [place] [address], [place] [address] Dec, [facility] [address] [id number] [address] [place] [address], [place] [address] 14 Dec, 2012 [facility] [address] [id number] [address] [place] [address], [place] [id number] 13 Dec, 2012 [facility] [address] [id number] [address] [place] [address], [place] [address] Dec, [facility] [address] [id number] [address] [place] [address], [place] [address] Dec, [facility] [address] [id number] [address] [place] [address], [place] [address] 07 Dec, 2012 [facility] [address] [id number] [address] [place] [address], [place] [address] 05 Dec, 2012 [facility] [address] [id number] [address] [place] [address], [place] [address] Dec, [facility] [address] [id number] [address] [place] [address], [place] [address] November, [facility] [address] [id number] [address] [place] [address], [place] [address] November, [facility] [address] [id number] [address] [place] [address], [place] [address] November, [facility] [address] [id number] [address] [place] [address], [place] [address] November, [facility] [address] [id number] [address] [place] [address], [place] [address] November, [facility] [address] [id number] [address] [place] [address], [place] [address] Oct, [facility] [address] [id number] [address] [place] [address], [place] [address] Oct, [facility] [address] [id number] [address] [place] [address], [place] [id number] Oct, [facility] [address] [id number] [address] [place] [address], [place] [address] Oct, [facility] [address] [id number] [address] [place] [address], [place] [address] Oct, [facility] [address] [id number] [address] [place] [address], [place] [address] Sep, [facility] [address] [id number] [address] [place] [address], [place] [address] Sep, [facility] [address] [id number] [address] [place] [address], [place] [id number] 18 Sep, 2012 [facility] [address] [id number] [address] [place] [address], [place] [id number] 05 Sep, 2012 [facility] [address] [id number] [address] [place] [address], [place] [address] Aug, [facility] [address] [id number] [address] [place] [address], [place] [address] Aug, [facility] [address] [id number] [address] [place] [address], [place] [address] Aug, [facility] [address] [id number] [address] [place] [address], [place] [address] 15 Aug, 2012 [facility] [address] [id number] [address] [place] [address], [place] [address] Jun, [facility] [address] [id number] [address] [place] [address], [place] [address] Jun, [facility] [address] [id number] [address] [place] [address], [place] [address] Jun, [facility] [address] [id number] [address] [place] [address], [place] [address] Jun, [facility] [address] [id number] [address] [place] [address], [place] [address] Jun, [facility] [address] [id number] [address] [place] [address], [place] [address] Jun, [facility] [address] [id number] [address] [place] [address], [place] [address] Jun, [facility] [address] [id number] [address] [place] [address], [place] [address] 03 Jun, 2012 [facility] [address] [id number] [address] [place] [address], [place] [address] Jun, [facility] [address] [id number] [address] [place] [address], [place] [address] Jun, [facility] [address] [id number] [address] [place] [address], [place] [address] 28 May, 2012 [facility] [address] [id number] [address] [place] [address], [place] [id number] 27 May, 2012 [facility] [address] [id number] [address] [place] [address], [place] [address] 27 May, 2012 [facility] [address] [id number] [address] [place] [address], [place] [address] May, [facility] [address] [id number] [address] [place] [address], [place] [address] May, [facility] [address] [id number] [address] [place] [address], [place] [address] 16 May, 2012 [facility] [address] [id number] [address] [place] [address], [place] [address] 16 May, 2012 [facility] [address] [id number] [address] [place] [address], [place] [address] 14 May, 2012 [facility] [address] [id number] [address] [place] [address], [place] [address] 14 May, 2012 [facility] [address] [id number] [address] [place] [address], [place] [address] 30 Apr, 2012 [facility] [address] [id number] [address] [place] [address], [place] [address] 30 Apr, 2012 [facility] [address] [id number] [address] [place] [address], [place] [address] 17 Apr, 2012 [facility] [address] [id number] [address] [place] [address], [place] [address] 17 Apr, 2012 [facility] [address] [id number] [address] [place] [address], [place] [address] 09 Apr, 2012 [facility] [address] [id number] [address] [place] [address], [place] [address] 18 Mar, 2012 [facility] [address] [id number] [address] [place] [address], [place] [id number] 17 Mar, 2012 [facility] [address] [id number] [address] [place] [address], [place] [id number] 07 Mar, 2012 [facility] [address] [id number] [address] [place] [address], [place] [address] 27 Feb, 2012 [facility] [address] [id number] [address] [place] [address], [place] [address] 16 Feb, 2012 [facility] [address] [id number] [address] [place] [address], [place] [address] 15 Feb, 2012 [facility] [address] [id number] [address] [place] [address], [place] [address] 14 Feb, 2012 [facility] [address] [id number] [address] [place] [address], [place] [address] Jan, [facility] [address] [id number] [address] [place] [address], [place] [address] Jan, [facility] [address] [id number] [address] [place] [address], [place] [id number] 24 Jan, 2012 [facility] [address] [id number] [address] [place] [address], [place] [address] Jan, [facility] [address] [id number] [address] [place] [address], [place] [id number] 17 Jan, 2012 [facility] [address] [id number] [address] [place] [address], [place] [address] Jan, [facility] [address] [id number] [address] [place] [address], [place] [address] Dec, [facility] [address] [id number] [address] [place] [address], [place] [address] Dec, [facility] [address] [id number] [address] [place] [address], [place] [address] Dec, [facility] [address] [id number] [address] [place] [address], [place] [address] November, [facility] [address] [id number] [address] [place] [address], [place] [address] November, [facility] [address] [id number] [address] [place] [address], [place] [address] November, [facility] [address] [id number] [address] [place] [address], [place] [address] November, [facility] [address] [id number] [address] [place] [address], [place] [address] Oct, [facility] [address] [id number] [address] [place] [address], [place] [address] Oct, [facility] [address] [id number] [address] [place] [address], [place] [address] Oct, [facility] [address] [id number] [address] [place] [address], [place] [address] Sep, [facility] [address] [id number] [address] [place] [address], [place] [address] Sep, [facility] [address] [id number] [address] [place] [address], [place] [address] Aug, [facility] [address] [id number] [address] [place] [address], [place] [address] Aug, [facility] [address] [id number] [address] [place] [address], [place] [address] Aug, [facility] [address] [id number] [address] [place] [address], [place] [address] Aug, [facility] [address] [id number] [address] [place] [address], [place] [address] Jul, [facility] [address] [id number] [address] [place] [address], [place] [address] 30 Jul, 2011 [facility] [address] [id number] [address] [place] [address], [place] [address] Jul, [facility] [address] [id number] [address] [place] [address], [place] [address] Jul, [facility] [address] [id number] [address] [place] [address], [place] [address] Jul, [facility] [address] [id number] [address] [place] [address], [place] [address] Jul, [facility] [address] [id number] [address] [place] [address], [place] [address] Jul, [facility] [address] [id number] [address] [place] [address], [place] [address] Jul, [facility] [address] [id number] [address] [place] [address], [place] [address] Jun, [facility] [address] [id number] [address] [place] [address], [place] [address] Jun, [facility] [address] [id number] [address] [place] [address], [place] [id number] Jun, [facility] [address] [id number] [address] [place] [address], [place] [address] Jun, [facility] [address] [id number] [address] [place] [address], [place] [address] Jun, [facility] [address] [id number] [address] [place] [address], [place] [address] May, [facility] [address] [id number] [address] [place] [address], [place] [address] May, [facility] [address] [id number] [address] [place] [address], [place] [address] 17 May, 2011 [facility] [address] [id number] [address] [place] [address], [place] [address] 15 May, 2011 [facility] [address] [id number] [address] [place] [address], [place] [id number] 08 May, 2011 [facility] [address] [id number] [address] [place] [address], [place] [address] 08 May, 2011 [facility] [address] [id number] [address] [place] [address], [place] [address] 19 Apr, 2011 [facility] [address] [id number] [address] [place] [address], [place] [id number] Apr, [facility] [address] [id number] [address] [place] [address], [place] [address] Apr, [facility] [address] [id number] [address] [place] [address], [place] [address] 17 Feb, 2011 [facility] [address] [id number] [address] [place] [address], [place] [address] Feb, [facility] [address] [id number] [address] [place] [address], [place] [address] Oct, [facility] [address] [id number] [address] [place] [address], [place] [address] Jul, [facility] [address] [id number] [address] [place] [id number] Jul, [facility] [address] [id number] [address] [place] [address], [place] [address] Jun, [facility] [address] [id number] [address] [place] [address] May, [facility] [address] [id number] [address] [place] [address], [place] [address] May, [facility] [address] [id number] [address] [place] [address], [place] [address] May, [facility] [address] [id number] [address] [place] [address], [place] [address] Apr, [facility] [address] [id number] [address] [place] [id number] Jan, [facility] [address] [facility] [id number] [address] [place] [id number] November, IMMUNIZATIONS No Known Immunizations SOCIAL HISTORY Never Assessed REASON FOR VISIT PLAN OF CARE VITAL SIGNS Height 70 in 2013-05-06 Weight 206.38 lbs 2013-05-06 Temperature 98.5 degrees Fahrenheit 2013-05-06 Heart Rate 76 bpm 2013-05-06 Respiratory Rate 24 2013-05-06 Blood pressure systolic 118 mmHg 2013-05-06 Blood pressure diastolic 80 mmHg 2013-05-06 MEDICATIONS No Known Medications RESULTS No Results [...]
--- OUTSIDE RECORDS SUMMARY | 2020-01-31 09:35 | XMS REPORT ---
Author Author Ivet BRISENO Y Organization [facility] [place] Address [address] [place] [address] Care Team Providers Care Merchandising Consultant Name Role Phone LINDY BRISENO Unavailable PROBLEMS Type Condition ICD9-CM Code PZF43-DU Code Onset Dates Condition S tatus SNOMED Code Problem Essential hypertension I10 Active 84359290 Problem GERD (gastroesophageal reflux disease) K21.9 Active 177460983 Problem Schizo affective schizophrenia F25.0 Active 897045804 Problem Stage 3 chronic kidney disease N18.3 Active 883653869 Problem Fibromyalgia M79.7 Active 9390756 05 Problem Vitamin D deficiency E55.9 Active 35526838 Problem Chronic kidney disease, stage 4 (severe) N18.4 Active [id number] Problem Bilateral carotid artery disease I77.9 Active 299253985 Problem Anemia in chronic kidney disease D63.1 Active 302790993 Problem Osteoarthritis M19.90 Active 06479 5006 Problem Iron deficiency anemia, unspecified iron deficiency an emia type D50.9 Active 98750056 Problem Secondary hyperparathyroidism, not elsewhere classified E21.1 Active 22431003 Problem Acquired hypothyroidism E03.9 Active 084985974 Problem Seasonal allergic rhinitis due to pollen J30.1 Active 58477393 ALLERGIES No Information ENCOUNTERS Encounter Location Date Diagnosis [facility] [place] [address] [facility] [id number] [address] [place] [id number] Jan, Essential hypertension I10 ; Chronic kidney disease, stage 4 (severe) N18.4 ; Anemia in chronic kidney disease D63.1 and Fibromyalgia M79.[address] [place] [id number] [address] Dec, Osteoarthritis M19.90 [facility] [place] [address] [facility] [id number] [address] [place] [address] November, Encounter for medication mon itoring Z51.81 [facility] [address] [id number] [address] November, Encounter for medication mon itoring Z51.81 and Osteoarthritis M19.90 [facility] [address] [facility] [id number] [address] [place] [address] November, Seasonal allergic rhinitis d ue to pollen J30.1 [facility] [place] [address] [facility] [id number] [address] [place] [address] 14 Oct, 2019 Lumbar radiculopathy M54.16 ; Fibromyalgia M79.7 ; Essential hypertension I10 and GERD (gastroesophageal reflux disease) K21.9 [facility] [place] [address] [facility] [id number] [address] [place] [address] 03 Oct, 2019 Osteoarthritis M19.90 [facility] [place] [address] [facility] [id number] [address] [place] [address] Sep, [facility] [place] [address] [facility] [id number] [address] [place] [address] Aug, Osteoarthritis M19.90 [facility] [place] [address] [facility] [id number] [address] [place] [address] Jul, Osteoarthritis M19.90 [facility] [place] [address] [facility] [id number] [address] [place] [address] Jun, Osteoarthritis M19.90 [facility] [address] [facility] [id number] [address] [place] [address] Jun, Herpes zoster without compli cation B02.9 [facility] [place] [address] [facility] [id number] [address] [place] [address] May, Osteoarthritis M19.90 [facility] [place] [address] [facility] [id number] [address] [place] [address] May, [facility] [place] [address] [facility] [id number] [address] [place] [id number] Apr, [facility] [place] [address] [facility] [id number] [address] [place] [address] 18 Mar, 2019 Osteoarthritis M19.90 [facility] [place] [address] [facility] [id number] [address] [place] [address] Mar, [facility] [place] [address] [facility] [id number] [address] [place] [address] Feb, Lumbago with sciatica, left side M54.42 ; Lumbago with sciatica, right side M54.41 and Other chronic pain G89.29 [facility] [place] [address] [facility] [id number] [address] [place] [address] Feb, Encounter for Medicare annua l wellness exam Z00.00 ; Schizo affective schizophrenia F25.0 ; Essential hypertension I10 ; GERD (gastroesophageal reflux disease) K21.9 ; Secondary hyperparathyroidism, not elsewhere classified E21.1 ; Idiopathic peripheral neuropathy G60.9 ; Stage 3 chronic kidney disease N18.3 ; Acquired hypothyroidism E03.9 ; Bilateral carotid artery disease I77.9 and Hypothyroidism E03.9 [place] [address] [facility] [id number] [address] [place] [address] Feb, Osteoarthritis M19.90 [place] [address] [facility] [id number] [address] [place] [address] Jan, Osteoarthritis M19.90 [place] [address] [facility] [id number] [address] [place] [address] Jan, Osteoarthritis M19.90 [facility] [place] [address] [facility] [id number] [address] [place] [address] Dec, Acquired hypothyroidism E03. 9 [facility] [place] [address] [facility] [id number] [address] [place] [address] Dec, Fibromyalgia M79.7 ; Hypothy roidism E03.9 ; Essential hypertension I10 and Sensory loss R20.[address] [id number] [place] [address] November, Osteoarthritis M19.90 [facility] [place] [address] [facility] [id number] [address] [place] [address] Oct, Osteoarthritis M19.90 [facility] [address] [place] [id number] [address] [place] [address] Oct, Sore throat J02.9 and Acute nasopharyngitis J00 [facility] [place] [address] [facility] [id number] [address] [place] [address] Sep, Osteoarthritis M19.90 [facility] [address] [facility] [id number] [address] [place] [id number] Sep, Acute non-recurrent maxillar y sinusitis J01.00 [facility] [address] [facility] [id number] [address] [place] [address] Aug, Acute non-recurrent pansinus itis J01.40 [place] [address] [place] [id number] [address] [place] [address] Jul, Osteoarthritis M19.90 [facility] [place] [address] [place] [id number] [address] [place] [address] Jul, [facility] [place] [address] [address] Apr, Osteoarthritis M19.90 [facility] [place] [address] [address] Apr, Fibromyalgia M79.7 ; Essenti al hypertension I10 ; Encounter for immunization Z23 ; Stage 3 chronic kidney disease N18.3 and Depression F32.9 [facility] [place] [id number] [place] [address] Dec, Fibromyalgia M79.7 ; Osteoar thritis M19.90 and Encounter for medication management Z79.899 [facility] [address] [facility] [id number] [address] [place] [id number] November, Nausea and vomiting, intract ability of vomiting not specified, unspecified vomiting type R11.2 and Dizziness R42 [facility] [place] [address] [address] November, Fibromyalgia M79.7 [place] [address] [address] November, Medicare annual wellness vis it, initial Z00.00 ; Anxiety F41.9 ; Depression F32.9 ; Stage 3 chronic kidney disease N18.3 ; Fibromyalgia M79.7 ; Essential hypertension I10 ; Secondary hyperparathyroidism, not elsewhere classified E21.1 ; Osteoarthritis M19.90 ; Hypothyroidism E03.9 and Encounter for immunization Z23 [place] [address] [address] Oct, [place] [address] [address] Oct, Sebaceous cyst L72.3 [place] [address] [address] Sep, Low back pain, unspecified b ack pain laterality, unspecified chronicity, with sciatica presence unspecified M54.5 and Secondary hyperparathyroidism, not elsewhere classified E21.1 [place] [address] [address] Sep, Fibromyalgia M79.7 [place] [address] [address] Sep, Fibromyalgia M79.7 ; Plantar fasciitis, bilateral M72.2 ; Essential hypertension I10 ; Depression F32.9 and Epidermoid cyst L72.0 [place] [address] [address] Jul, [place] [address] [address] Jul, Fibromyalgia M79.7 ; Iron de ficiency anemia, unspecified iron deficiency anemia type D50.9 and Acute nasopharyngitis J00 [facility] [address] [place] [id number] [place] [address] Jun, Sore throat J02.9 and Acute serous otitis media of left ear, recurrence not specified H65.02 [place] [address] [address] Jun, Hypothyroidism E03.9 [place] [address] [address] Jun, [place] [address] [address] Jun, Hypothyroidism E03.9 ; Essen tial hypertension I10 and Osteoarthritis M19.90 [place] [address] [address] May, [place] [address] [address] May, [place] [address] [address] Feb, [place] [address] [address] Feb, Leonela-menopausal N95.1 and To bacco use Z72.0 [place] [address] [address] Jan, [place] [address] [address] Jan, Osteoarthritis M19.90 ; Bila teral carotid artery disease I77.9 ; Raynauds syndrome I73.00 ; Essential hypertension I10 ; Allergic rhinitis J30.9 ; Stage 3 chronic kidney disease N18.3 ; Fibromyalgia M79.7 ; Hypothyroidism E03.9 ; GERD (gastroesophageal reflux disease) K21.9 and Vitamin D deficiency E55.9 [place] [address] [place] [id number] [address] [place] [address] Dec, Raynauds syndrome I73.00 ; P lantar fascial fibromatosis M72.2 ; Osteoarthritis M19.90 and Fibromyalgia M79.7 [facility] [place] [address] [id number] [address] [place] [id number] Dec, [facility] [place] [address] [id number] [address] [place] [address] Dec, [facility] [place] [address] [facility] [id number] [address] [place] [address] Oct, Function kidney decreased N2 8.9 [facility] [address] [id number] [address] [place] [id number] Oct, Dental examination Z01.20 [facility] [place] [address] [id number] [address] [place] [address] 18 Oct, 2016 Essential hypertension I10 a nd Function kidney decreased N28.9 [facility] [address] [facility] [id number] [address] [place] [id number] Oct, Dental examination Z01.20 [facility] [place] [address] [facility] [id number] [address] [place] [address] Oct, [facility] [place] [address] [facility] [id number] [address] [place] [address] 24 Sep, 2016 Other specified disorders in volving the immune mechanism D89.89 and Schizo affective schizophrenia F25.0 [facility] [place] [address] [place] [id number] [address] [place] [address] Sep, Schizo affective schizophren ia F25.0 [facility] [place] [address] [facility] [id number] [address] [place] [address] 16 Sep, 2016 Eustachian tube dysfunction, bilateral H69.83 [facility] [place] [address] [facility] [id number] [address] [place] [id number] 15 Sep, 2016 [facility] [place] [address] [facility] [id number] [address] [place] [address] 14 Sep, 2016 [facility] [place] [address] [facility] [id number] [address] [place] [address] Sep, [facility] [place] [address] [place] [id number] [address] [place] [address] Sep, Eustachian tube dysfunction, bilateral H69.83 [facility] [place] [address] [address] Sep, Allergic rhinitis J30.9 ; Es sential hypertension I10 ; Hypothyroidism E03.9 and Schizo affective schizophrenia F25.0 [facility] [place] [address] [address] Jul, Eustachian tube dysfunction, bilateral H69.83 and Visit for TB skin test Z11.1 [facility] [address] [address] Jul, Subacute pansinusitis J01.40 [place] [address] [address] Jun, Schizo affective schizophren ia F25.0 ; Depression F32.9 ; Allergic rhinitis J30.9 ; Raynauds syndrome I73.00 ; Essential hypertension I10 ; Slow transit constipation K59.01 ; GERD (gastroesophageal reflux disease) K21.9 ; Hypothyroidism E03.9 ; Nicotine addiction F17.200 ; Other viral agents as the cause of diseases classified elsewhere B97.89 ; Acute upper respiratory infection, unspecified J06.9 and Osteoarthritis M19.90 [place] [address] [address] Jun, Allergic rhinitis J30.9 and GERD (gastroesophageal reflux disease) K21.9 [facility] [place] [address] [place] [id number] [address] [place] [address] May, [place] [address] [address] Mar, Schizo affective schizophren ia F25.0 [place] [address] [place] [id number] [address] [place] [address] Mar, Schizo affective schizophren ia F25.0 [place] [address] [address] 15 Mar, 2016 Schizo affective schizophren ia F25.0 [place] [address] [address] 06 Mar, 2016 Acute non-recurrent maxillar y sinusitis J01.00 [place] [address] [address] Feb, Schizo affective schizophren ia F25.0 [place] [address] [address] Feb, Contact dermatitis and eczem a L25.9 [place] [address] [address] Jan, [place] [address] [address] Jan, Schizo affective schizophren ia F25.0 ; Slow transit constipation K59.01 ; Essential hypertension I10 ; GERD (gastroesophageal reflux disease) K21.9 ; Hypothyroidism E03.9 ; Osteoarthritis M19.90 ; Low back pain, unspecified back pain laterality, unspecified chronicity, with sciatica presence unspecified M54.5 and Bilateral carotid artery disease I77.9 [place] [address] [address] Oct, [place] [address] [address] Sep, Hypothyroid E03.9 [place] [address] [address] Sep, Schizo affective schizophren ia F25.0 ; Depression F32.9 ; Anxiety F41.9 ; Allergic rhinitis J30.9 ; Raynauds syndrome I73.00 ; Insomnia G47.00 ; Essential hypertension I10 ; GERD (gastroesophageal reflux disease) K21.9 ; Hypothyroidism E03.9 and Vitamin D deficiency E55.9 [place] [address] [address] Sep, [facility] [place] [address] [address] Sep, [place] [address] [address] Aug, Allergic rhinitis J30.9 ; De pression F32.9 ; Anxiety F41.9 ; Raynauds syndrome I73.00 ; Insomnia G47.00 and GERD (gastroesophageal reflux disease) K21.9 [place] [address] [address] Aug, MONICA (secretory otitis media) H65.90 and Raynauds syndrome I73.00 [facility] [address] [address] Jul, Acute otitis externa of both ears, unspecified type H60.503 [place] [address] [address] Jun, [place] [address] [address] Jun, Essential hypertension I10 ; Allergic rhinitis J30.9 ; Hypothyroidism E03.9 and Osteoarthritis M19.90 [place] [address] [address] Jun, Routine adult health mainten ance Z00.00 ; Hypothyroidism E03.9 ; Essential hypertension I10 ; Insomnia G47.00 ; Nicotine addiction F17.200 ; Raynauds syndrome I73.00 ; GERD (gastroesophageal reflux disease) K21.9 ; Allergic rhinitis J30.9 ; Anxiety F41.9 ; Depression F32.9 and Schizo affective schizophrenia F25.0 [place] [address] [place] [id number] [address] [place] [address] May, Upper respiratory tract infe ction, unspecified type J06.9 [place] [address] [place] [id number] [address] [place] [address] Mar, [facility] [place] [address] [id number] CATHY, Payam S [id number] Mar, [facility] [address] [id number] [address] [place] [address], [place] [address] Mar, [facility] [address] [id number] [address] [place] [address], [place] [address] Mar, [facility] [address] [id number] [address] [place] [address], [place] [address] Feb, Jaw pain 784.92 and Environm ental and seasonal allergies 477.8 [facility] [address] [id number] [address] [place] [address] Feb, [facility] [address] [id number] [address] [place] [address] Oct, [facility] [address] [id number] [address] [place] [address] Oct, [facility] [address] [id number] [address] [place] [address] Oct, [facility] [address] [id number] [address] [place] [address], [place] [address] Oct, [facility] [address] [id number] [address] [place] [id number] Sep, [facility] [address] [id number] [address] [place] [address] Sep, [facility] [address] [id number] [address] [place] [address] Jul, [facility] [address] [id number] [address] [place] [address] Jul, [facility] [address] [id number] [address] [place] [address] Jul, [facility] [address] [id number] [address] [place] [address] Jul, [facility] [address] [id number] [address] [place] [address], [place] [address] Jul, [facility] [address] [id number] [address] [place] [address], [place] [address] Jul, [facility] [address] [id number] [address] [place] [address], [place] [address] Jul, [facility] [address] [id number] [address] [place] [address], [place] [address] Jun, [facility] [address] [id number] [address] [place] [address], [place] [address] Jun, [facility] [address] [id number] [address] [place] [address], [place] [address] Jun, [facility] [address] [id number] [address] [place] [address], [place] [address] 18 Jun, 2014 [facility] [address] [id number] [address] [place] [address], [place] [address] Jun, [facility] [address] [id number] [address] [place] [address], [place] [address] Jun, [facility] [address] [id number] [address] [place] [address], [place] [address] 16 Jun, 2014 [facility] [address] [id number] [address] [place] [address], [place] [address] Jun, [facility] [address] [id number] [address] [place] [address], [place] [address] Apr, [facility] [address] [id number] [address] [place] [address], [place] [address] Apr, [facility] [address] [id number] [address] [place] [address], [place] [address] 17 Mar, 2014 [facility] [address] [id number] [address] [place] [address], [place] [address] 17 Mar, 2014 [facility] [address] [id number] [address] [place] [address], [place] [address] Mar, [facility] [address] [id number] [address] [place] [address], [place] [address] Mar, [facility] [address] [id number] [address] [place] [address], [place] [address] Jan, [facility] [address] [id number] [address] [place] [address], [place] [address] Jan, [facility] [address] [id number] [address] [place] [address], [place] [address] Oct, [facility] [address] [id number] [address] [place] [address], [place] [address] Oct, [facility] [address] [id number] [address] [place] [address], [place] [address] Sep, [facility] [address] [id number] [address] [place] [address], [place] [address] Sep, [facility] [address] [id number] [address] [place] [address], [place] [address] Sep, [facility] [address] [id number] [address] [place] [address], [place] [address] Sep, [facility] [address] [id number] [address] [place] [address], [place] [address] Sep, [facility] [address] [id number] [address] [place] [address], [place] [address] Sep, [facility] [address] [id number] [address] [place] [address], [place] [address] Aug, [facility] [address] [id number] [address] [place] [address], [place] [address] Aug, [facility] [address] [id number] [address] [place] [address], [place] [address] Jul, [facility] [address] [id number] [address] [place] [address], [place] [address] Jul, [facility] [address] [id number] [address] [place] [address], [place] [address] Jul, [facility] [address] [id number] [address] [place] [address], [place] [address] Jul, [facility] [address] [id number] [address] [place] [address], [place] [address] Jun, [facility] [address] [id number] [address] [place] [address], [place] [address] Jun, [facility] [address] [id number] [address] [place] [address], [place] [address] May, [facility] [address] [id number] [address] [place] [address], [place] [address] May, [facility] [address] [id number] [address] [place] [address], [place] [address] Apr, [facility] [address] [id number] [address] [place] [address], [place] [address] Apr, [facility] [address] [id number] [address] [place] [address], [place] [address] Apr, [facility] [address] [id number] [address] [place] [address], [place] [address] Apr, [facility] [address] [id number] [address] [place] [address], [place] [address] Apr, [facility] [address] [id number] [address] [place] [address], [place] [address] Apr, [facility] [address] [id number] [address] [place] [address], [place] [address] 24 Mar, 2013 [facility] [address] [id number] [address] [place] [address], [place] [address] 12 Mar, 2013 [facility] [address] [id number] [address] [place] [address], [place] [address] 09 Mar, 2013 [facility] [address] [id number] [address] [place] [address], [place] [address] 05 Mar, 2013 [facility] [address] [id number] [address] [place] [address], [place] [address] 05 Mar, 2013 [facility] [address] [id number] [address] [place] [address], [place] [address] 30 Feb, 2013 [facility] [address] [id number] [address] [place] [address], [place] [address] Feb, [facility] [address] [id number] [address] [place] [address], [place] [address] Feb, [facility] [address] [id number] [address] [place] [address], [place] [address] Feb, [facility] [address] [id number] [address] [place] [address], [place] [address] Jan, [facility] [address] [id number] [address] [place] [address], [place] [address] Jan, [facility] [address] [id number] [address] [place] [address], [place] [address] 16 Jan, 2013 [facility] [address] [id number] [address] [place] [address], [place] [address] Jan, [facility] [address] [id number] [address] [place] [address], [place] [address] Jan, [facility] [address] [id number] [address] [place] [address], [place] [address] Jan, [facility] [address] [id number] [address] [place] [address], [place] [address] Dec, [facility] [address] [id number] [address] [place] [address], [place] [address] Dec, [facility] [address] [id number] [address] [place] [address], [place] [address] Dec, [facility] [address] [id number] [address] [place] [address], [place] [address] 14 Dec, 2012 [facility] [address] [id number] [address] [place] [address], [place] [address] 13 Dec, 2012 [facility] [address] [id number] [address] [place] [address], [place] [address] 12 Dec, 2012 [facility] [address] [id number] [address] [place] [address], [place] [address] Dec, [facility] [address] [id number] [address] [place] [address], [place] [address] Dec, [facility] [address] [id number] [address] [place] [address], [place] [address] 05 Dec, 2012 [facility] [address] [id number] [address] [place] [address], [place] [address] Dec, [facility] [address] [id number] [address] [place] [address], [place] [address] November, [facility] [address] [id number] [address] [place] [address], [place] [address] November, [facility] [address] [id number] [address] [place] [address], [place] [address] November, [facility] [address] [id number] [address] [place] [address], [place] [address] November, [facility] [address] [id number] [address] [place] [address], [place] [address] November, [facility] [address] [id number] [address] [place] [address], [place] [address] Oct, [facility] [address] [id number] [address] [place] [address], [place] [address] Oct, [facility] [address] [id number] [address] [place] [address], [place] [address] Oct, [facility] [address] [id number] [address] [place] [address], [place] [address] Oct, [facility] [address] [id number] [address] [place] [address], [place] [address] Oct, [facility] [address] [id number] [address] [place] [address], [place] [address] 21 Sep, 2012 [facility] [address] [id number] [address] [place] [address], [place] [address] 19 Sep, 2012 [facility] [address] [id number] [address] [place] [address], [place] [address] 18 Sep, 2012 [facility] [address] [id number] [address] [place] [address], [place] [address] 05 Sep, 2012 [facility] [address] [id number] [address] [place] [address], [place] [address] 26 Aug, 2012 [facility] [address] [id number] [address] [place] [address], [place] [address] 18 Aug, 2012 [facility] [address] [id number] [address] [place] [address], [place] [address] 18 Aug, 2012 [facility] [address] [id number] [address] [place] [address], [place] [address] 15 Aug, 2012 [facility] [address] [id number] [address] [place] [address], [place] [address] Jun, [facility] [address] [id number] [address] [place] [address], [place] [address] Jun, [facility] [address] [id number] [address] [place] [address], [place] [address] Jun, [facility] [address] [id number] [address] [place] [address], [place] [address] Jun, [facility] [address] [id number] [address] [place] [address], [place] [address] Jun, [facility] [address] [id number] [address] [place] [address], [place] [address] Jun, [facility] [address] [id number] [address] [place] [address], [place] [address] Jun, [facility] [address] [id number] [address] [place] [address] Jun, [facility] [address] [id number] [address] [place] [address], [place] [address] Jun, [facility] [address] [id number] [address] [place] [address] Jun, [facility] [address] [id number] [address] [place] [address], [place] [address] May, [facility] [address] [id number] [address] [place] [address] May, [facility] [address] [id number] [address] [place] [address], [place] [address] May, [facility] [address] [id number] [address] [place] [address], [place] [address] May, [facility] [address] [id number] [address] [place] [address], [place] [address] May, [facility] [address] [id number] [address] [place] [address], [place] [address] 16 May, 2012 [facility] [address] [id number] [address] [place] [address] 16 May, 2012 [facility] [address] [id number] [address] [place] [address] 14 May, 2012 [facility] [address] [id number] [address] [place] [address] 14 May, 2012 [facility] [address] [id number] [address] [place] [address] 30 Apr, 2012 [facility] [address] [id number] [address] [place] [address] 30 Apr, 2012 [facility] [address] [id number] [address] [place] [address], [place] [address] 17 Apr, 2012 [facility] [address] [id number] [address] [place] [address], [place] [address] 17 Apr, 2012 [facility] [address] [id number] [address] [place] [address], [place] [address] 09 Apr, 2012 [facility] [address] [id number] [address] [place] [address], [place] [address] 18 Mar, 2012 [facility] [address] [id number] [address] [place] [address], [place] [address] 17 Mar, 2012 [facility] [address] [id number] [address] [place] [address], [place] [address] 07 Mar, 2012 [facility] [address] [id number] [address] [place] [address], [place] [address] 27 Feb, 2012 [facility] [address] [id number] [address] [place] [address], [place] [address] 16 Feb, 2012 [facility] [address] [id number] [address] [place] [address], [place] [address] 15 Feb, 2012 [facility] [address] [id number] [address] [place] [address], [place] [address] 14 Feb, 2012 [facility] [address] [id number] [address] [place] [address], [place] [address] Jan, [facility] [address] [id number] [address] [place] [address], [place] [address] Jan, [facility] [address] [id number] [address] [place] [address], [place] [address] 24 Jan, 2012 [facility] [address] [id number] [address] [place] [address], [place] [address] Jan, [facility] [address] [id number] [address] [place] [address], [place] [address] 17 Jan, 2012 [facility] [address] [id number] [address] [place] [address], [place] [address] Jan, [facility] [address] [id number] [address] [place] [address], [place] [address] Dec, [facility] [address] [id number] [address] [place] [address], [place] [address] Dec, [facility] [address] [id number] [address] [place] [address], [place] [address] Dec, [facility] [address] [id number] [address] [place] [address], [place] [address] November, [facility] [address] [id number] [address] [place] [address], [place] [address] November, [facility] [address] [id number] [address] [place] [address], [place] [address] November, [facility] [address] [id number] [address] [place] [address], [place] [address] November, [facility] [address] [id number] [address] [place] [address], [place] [address] Oct, [facility] [address] [id number] [address] [place] [address], [place] [address] Oct, [facility] [address] [id number] [address] [place] [address], [place] [address] Oct, [facility] [address] [id number] [address] [place] [address], [place] [address] Sep, [facility] [address] [id number] [address] [place] [address], [place] [address] Sep, [facility] [address] [id number] [address] [place] [address], [place] [address] Aug, [facility] [address] [id number] [address] [place] [address], [place] [address] Aug, [facility] [address] [id number] [address] [place] [address], [place] [address] Aug, [facility] [address] [id number] [address] [place] [address], [place] [address] Aug, [facility] [address] [id number] [address] [place] [address], [place] [address] Jul, [facility] [address] [id number] [address] [place] [address], [place] [address] 30 Jul, 2011 [facility] [address] [id number] [address] [place] [address], [place] [address] Jul, [facility] [address] [id number] [address] [place] [address], [place] [address] Jul, [facility] [address] [id number] [address] [place] [address], [place] [address] Jul, [facility] [address] [id number] [address] [place] [address], [place] [address] Jul, [facility] [address] [id number] [address] [place] [address], [place] [address] Jul, [facility] [address] [id number] [address] [place] [address], [place] [address] Jul, [facility] [address] [id number] [address] [place] [address], [place] [address] Jun, [facility] [address] [id number] [address] [place] [address], [place] [address] Jun, [facility] [address] [id number] [address] [place] [address], [place] [address] 15 Jun, 2011 [facility] [address] [id number] [address] [place] [address], [place] [address] 08 Jun, 2011 [facility] [address] [id number] [address] [place] [address], [place] [address] 07 Jun, 2011 [facility] [address] [id number] [address] [place] [address], [place] [address] 28 May, 2011 [facility] [address] [id number] [address] [place] [address], [place] [address] May, [facility] [address] [id number] [address] [place] [address], [place] [address] 17 May, 2011 [facility] [address] [id number] [address] [place] [address], [place] [address] 15 May, 2011 [facility] [address] [id number] [address] [place] [address], [place] [address] 08 May, 2011 [facility] [address] [id number] [address] [place] [address], [place] [address] 08 May, 2011 [facility] [address] [id number] [address] [place] [address], [place] [address] Apr, [facility] [address] [id number] [address] [place] [address], [place] [address] Apr, [facility] [address] [id number] [address] [place] [address], [place] [address] Apr, [facility] [address] [id number] [address] [place] [address], [place] [address] 17 Feb, 2011 [facility] [address] [id number] [address] [place] [address], [place] [address] Feb, [facility] [address] [id number] [address] [place] [address], [place] [address] Oct, [facility] [address] [id number] [address] [place] [address], [place] [address] Jul, [facility] [address] [id number] [address] [place] [address] Jul, [facility] [address] [id number] [address] [place] [address] Jun, [facility] [address] [id number] [address] [place] [address] May, [facility] [address] [id number] [address] [place] [address], [place] [address] May, [facility] [address] [id number] [address] [place] [address], [place] [address] May, [facility] [address] [id number] [address] [place] [address], [place] [address] Apr, [facility] [address] [id number] [address] [place] [address] Jan, [facility] [place] [address] [facility] [id number] [address] [place] [address] November, IMMUNIZATIONS No Known Immunizations SOCIAL HISTORY [...]
--- OUTSIDE RECORDS SUMMARY | 2020-01-31 09:35 | XMS REPORT ---
Author Author Ivet BRISENO Y Organization [facility] Address [address] [place] [address] Care Team Providers Care Airline Captain Name Role Phone LINDY BRISENO Unavailable PROBLEMS Type Condition ICD9-CM Code [id number] Code Onset Dates Condition S tatus SNOMED Code Problem Essential hypertension I10 Active 11755928 Problem GERD (gastroesophageal reflux disease) K21.9 Active 187732290 Problem Schizo affective schizophrenia F25.0 Active 179818263 Problem Stage 3 chronic kidney disease N18.3 Active 365756310 Problem Fibromyalgia M79.7 Active 2970467 05 Problem Vitamin D deficiency E55.9 Active 87732907 Problem Chronic kidney disease, stage 4 (severe) N18.4 Active [id number] Problem Bilateral carotid artery disease I77.9 Active 792849866 Problem Anemia in chronic kidney disease D63.1 Active 043434863 Problem Osteoarthritis M19.90 Active 63933 5006 Problem Iron deficiency anemia, unspecified iron deficiency an emia type D50.9 Active 15076585 Problem Secondary hyperparathyroidism, not elsewhere classified E21.1 Active 68111553 Problem Acquired hypothyroidism E03.9 Active 622382498 Problem Seasonal allergic rhinitis due to pollen J30.1 Active 07092552 ALLERGIES No Information ENCOUNTERS Encounter Location Date Diagnosis [facility] [address] [facility] [id number] [address] [place] [address] 13 Jan, 2020 Eczema, unspecified type L30 .9 [facility] [address] [facility] [id number] [address] [place] [address] 09 Jan, 2020 Essential hypertension I10 ; Chronic kidney disease, stage 4 (severe) N18.4 ; Anemia in chronic kidney disease D63.1 and Fibromyalgia M79.[address] [id number] [address] Dec, Osteoarthritis M19.90 [facility] [address] [facility] [id number] [address] [place] [address] November, Encounter for medication mon itoring Z51.81 [facility] [address] [id number] [address] November, Encounter for medication mon itoring Z51.81 and Osteoarthritis M19.90 [facility] [address] [facility] [id number] [address] [place] [address] November, Seasonal allergic rhinitis d ue to pollen J30.1 [place] [address] [facility] [id number] [address] [place] [address] 14 Oct, 2019 Lumbar radiculopathy M54.16 ; Fibromyalgia M79.7 ; Essential hypertension I10 and GERD (gastroesophageal reflux disease) K21.9 [facility] [address] [facility] [id number] [address] [place] [address] Oct, Osteoarthritis M19.90 [facility] [address] [facility] [id number] [address] [place] [address] Sep, [facility] [address] [place] [id number] [address] [place] [address] Aug, Osteoarthritis M19.90 [facility] [address] [facility] [id number] [address] [place] [address] Jul, Osteoarthritis M19.90 [facility] [address] [facility] [id number] [address] [place] [address] Jun, Osteoarthritis M19.90 [facility] [address] [facility] [id number] [address] [place] [address] Jun, Herpes zoster without compli cation B02.9 [facility] [address] [facility] [id number] [address] [place] [address] May, Osteoarthritis M19.90 [facility] [address] [facility] [id number] [address] [place] [address] May, [facility] [address] [place] [id number] [address] [place] [address] Apr, [facility] [address] [address] Mar, Osteoarthritis M19.90 [place] [address] [address] Mar, [place] [address] [address] Feb, Lumbago with sciatica, left side M54.42 ; Lumbago with sciatica, right side M54.41 and Other chronic pain G89.29 [place] [address] [address] Feb, Encounter for Medicare annua l wellness exam Z00.00 ; Schizo affective schizophrenia F25.0 ; Essential hypertension I10 ; GERD (gastroesophageal reflux disease) K21.9 ; Secondary hyperparathyroidism, not elsewhere classified E21.1 ; Idiopathic peripheral neuropathy G60.9 ; Stage 3 chronic kidney disease N18.3 ; Acquired hypothyroidism E03.9 ; Bilateral carotid artery disease I77.9 and Hypothyroidism E03.9 [place] [address] [address] Feb, Osteoarthritis M19.90 [place] [address] [address] Jan, Osteoarthritis M19.90 [facility] [address] [address] Jan, Osteoarthritis M19.90 [place] [address] [address] Dec, Acquired hypothyroidism E03. 9 [place] [address] [address] Dec, Fibromyalgia M79.7 ; Hypothy roidism E03.9 ; Essential hypertension I10 and Sensory loss R20.[address] [id number] [address] November, Osteoarthritis M19.90 [facility] [address] [facility] [id number] [address] [place] [address] Oct, Osteoarthritis M19.90 [facility] [address] [facility] [id number] [address] [place] [address] Oct, Sore throat J02.9 and Acute nasopharyngitis J00 [facility] [address] [facility] [id number] [address] [place] [address] Sep, Osteoarthritis M19.90 [facility] [address] [facility] [id number] [address] [place] [address] Sep, Acute non-recurrent maxillar y sinusitis J01.00 [facility] [address] [facility] [id number] [address] [place] [address] Aug, Acute non-recurrent pansinus itis J01.40 [facility] [address] [facility] [id number] [address] [place] [address] Jul, Osteoarthritis M19.90 [facility] [address] [facility] [id number] [address] [place] [address] Jul, [facility] [address] [place] [id number] [address] [place] [address] Apr, Osteoarthritis M19.90 [facility] [address] [place] [id number] [address] [place] [address] Apr, Fibromyalgia M79.7 ; Essenti al hypertension I10 ; Encounter for immunization Z23 ; Stage 3 chronic kidney disease N18.3 and Depression F32.9 [facility] [address] [facility] [id number] [address] [place] [address] Dec, Fibromyalgia M79.7 ; Osteoar thritis M19.90 and Encounter for medication management Z79.899 [facility] [address] [facility] [id number] [address] [place] [address] November, Nausea and vomiting, intract ability of vomiting not specified, unspecified vomiting type R11.2 and Dizziness R42 [place] [address] [address] November, Fibromyalgia M79.7 [place] [address] [address] November, Medicare annual wellness vis it, initial Z00.00 ; Anxiety F41.9 ; Depression F32.9 ; Stage 3 chronic kidney disease N18.3 ; Fibromyalgia M79.7 ; Essential hypertension I10 ; Secondary hyperparathyroidism, not elsewhere classified E21.1 ; Osteoarthritis M19.90 ; Hypothyroidism E03.9 and Encounter for immunization Z23 [place] [address] [address] Oct, [place] [address] [address] Oct, Sebaceous cyst L72.3 [place] [address] [address] Sep, Low back pain, unspecified b ack pain laterality, unspecified chronicity, with sciatica presence unspecified M54.5 and Secondary hyperparathyroidism, not elsewhere classified E21.1 [place] [address] [address] Sep, Fibromyalgia M79.7 [place] [address] [address] Sep, Fibromyalgia M79.7 ; Plantar fasciitis, bilateral M72.2 ; Essential hypertension I10 ; Depression F32.9 and Epidermoid cyst L72.0 [place] [address] [address] Jul, [place] [address] [address] Jul, Fibromyalgia M79.7 ; Iron de ficiency anemia, unspecified iron deficiency anemia type D50.9 and Acute nasopharyngitis J00 [facility] [address] [address] 18 Jun, 2017 Sore throat J02.9 and Acute serous otitis media of left ear, recurrence not specified H65.02 [facility] [address] [address] Jun, Hypothyroidism E03.9 [facility] [address] [address] Jun, [place] [address] [address] Jun, Hypothyroidism E03.9 ; Essen tial hypertension I10 and Osteoarthritis M19.90 [place] [address] [address] May, [place] [address] [address] May, [place] [address] [address] Feb, [place] [address] [address] Feb, Leonela-menopausal N95.1 and To bacco use Z72.0 [place] [address] [address] Jan, [place] [address] [address] Jan, Osteoarthritis M19.90 ; Bila teral carotid artery disease I77.9 ; Raynauds syndrome I73.00 ; Essential hypertension I10 ; Allergic rhinitis J30.9 ; Stage 3 chronic kidney disease N18.3 ; Fibromyalgia M79.7 ; Hypothyroidism E03.9 ; GERD (gastroesophageal reflux disease) K21.9 and Vitamin D deficiency E55.9 [place] [address] [address] Dec, Raynauds syndrome I73.00 ; P lantar fascial fibromatosis M72.2 ; Osteoarthritis M19.90 and Fibromyalgia M79.7 [facility] [address] [facility] [id number] [address] [place] [address] Dec, [facility] [address] [place] [id number] [address] [place] [address] Dec, [facility] [address] [place] [id number] [address] [place] [address] Oct, Function kidney decreased N2 8.9 [facility] [id number] [place] [id number] Oct, Dental examination Z01.20 [facility] [address] [place] [id number] [place] [address] 18 Oct, 2016 Essential hypertension I10 a nd Function kidney decreased N28.9 [facility] [id number] [place] [id number] Oct, Dental examination Z01.20 [facility] [address] [place] [id number] [address] [place] [address] Oct, [facility] [address] [place] [id number] [place] [address] 24 Sep, 2016 Other specified disorders in volving the immune mechanism D89.89 and Schizo affective schizophrenia F25.0 [facility] [address] [place] [id number] [address] [place] [address] Sep, Schizo affective schizophren ia F25.0 [facility] [address] [place] [id number] [address] [place] [address] 16 Sep, 2016 Eustachian tube dysfunction, bilateral H69.83 [facility] [address] [place] [id number] [address] [place] [address] 15 Sep, 2016 [facility] [address] [place] [id number] [address] [place] [address] 14 Sep, 2016 [facility] [address] [address] Sep, [facility] [address] [address] Sep, Eustachian tube dysfunction, bilateral H69.83 [place] [address] [address] Sep, Allergic rhinitis J30.9 ; Es sential hypertension I10 ; Hypothyroidism E03.9 and Schizo affective schizophrenia F25.0 [place] [address] [address] Jul, Eustachian tube dysfunction, bilateral H69.83 and Visit for TB skin test Z11.1 [facility] [address] [address] Jul, Subacute pansinusitis J01.40 [place] [address] [address] Jun, Schizo affective schizophren ia F25.0 ; Depression F32.9 ; Allergic rhinitis J30.9 ; Raynauds syndrome I73.00 ; Essential hypertension I10 ; Slow transit constipation K59.01 ; GERD (gastroesophageal reflux disease) K21.9 ; Hypothyroidism E03.9 ; Nicotine addiction F17.200 ; Other viral agents as the cause of diseases classified elsewhere B97.89 ; Acute upper respiratory infection, unspecified J06.9 and Osteoarthritis M19.90 [place] [address] [address] Jun, Allergic rhinitis J30.9 and GERD (gastroesophageal reflux disease) K21.9 [place] [address] [address] May, [place] [address] [address] Mar, Schizo affective schizophren ia F25.0 [place] [address] [address] Mar, Schizo affective schizophren ia F25.0 [place] [address] [address] Mar, Schizo affective schizophren ia F25.0 [place] [address] [address] Mar, Acute non-recurrent maxillar y sinusitis J01.00 [place] [address] [address] Feb, Schizo affective schizophren ia F25.0 [place] [address] [address] Feb, Contact dermatitis and eczem a L25.[address] [address] Jan, [place] [address] [address] Jan, Schizo affective schizophren ia F25.0 ; Slow transit constipation K59.01 ; Essential hypertension I10 ; GERD (gastroesophageal reflux disease) K21.9 ; Hypothyroidism E03.9 ; Osteoarthritis M19.90 ; Low back pain, unspecified back pain laterality, unspecified chronicity, with sciatica presence unspecified M54.5 and Bilateral carotid artery disease I77.9 [place] [address] [address] Oct, [place] [address] [address] Sep, Hypothyroid E03.9 [place] [address] [address] Sep, Schizo affective schizophren ia F25.0 ; Depression F32.9 ; Anxiety F41.9 ; Allergic rhinitis J30.9 ; Raynauds syndrome I73.00 ; Insomnia G47.00 ; Essential hypertension I10 ; GERD (gastroesophageal reflux disease) K21.9 ; Hypothyroidism E03.9 and Vitamin D deficiency E55.9 [place] [address] [address] Sep, [facility] [address] [address] Sep, [place] [address] [address] Aug, Allergic rhinitis J30.9 ; De pression F32.9 ; Anxiety F41.9 ; Raynauds syndrome I73.00 ; Insomnia G47.00 and GERD (gastroesophageal reflux disease) K21.9 [place] [address] [address] Aug, MONICA (secretory otitis media) H65.90 and Raynauds syndrome I73.00 [facility] [address] [address] Jul, Acute otitis externa of both ears, unspecified type H60.503 [place] [address] [address] Jun, [place] [address] [address] Jun, Essential hypertension I10 ; Allergic rhinitis J30.9 ; Hypothyroidism E03.9 and Osteoarthritis M19.90 [place] [address] [place] [id number] [address] [place] [address] Jun, Routine adult health mainten ance Z00.00 ; Hypothyroidism E03.9 ; Essential hypertension I10 ; Insomnia G47.00 ; Nicotine addiction F17.200 ; Raynauds syndrome I73.00 ; GERD (gastroesophageal reflux disease) K21.9 ; Allergic rhinitis J30.9 ; Anxiety F41.9 ; Depression F32.9 and Schizo affective schizophrenia F25.0 [place] [address] [address] May, Upper respiratory tract infe ction, unspecified type J06.9 [facility] [address] [id number] [address] [place] [address] Mar, [facility] [address] [id number] [place] [id number] Mar, [facility] [address] [id number] [address] [place] [address] Mar, [facility] [address] [id number] [address] [place] [address] Mar, [facility] [address] [id number] [address] [place] [address] Feb, Jaw pain 784.92 and Environm ental and seasonal allergies 477.8 [facility] [address] [id number] [address] [place] [address] Feb, [facility] [address] [id number] [address] [place] [address] Oct, [facility] [address] [id number] [address] [place] [address] Oct, [facility] [address] [id number] [address] [place] [address] Oct, [facility] [address] [id number] [address] [place] [address] Oct, [facility] [address] [id number] [address] [place] [address] Sep, [facility] [address] [id number] [address] [place] [address] Sep, [facility] [address] [id number] [address] [place] [address] Jul, [facility] [address] [id number] [address] [place] [address] Jul, [facility] [address] [id number] [address] [place] [address] Jul, [facility] [address] [id number] [address] [place] [address], [place] [address] Jul, [facility] [address] [id number] [address] [place] [address], [place] [address] Jul, [facility] [address] [id number] [address] [place] [address], [place] [address] Jul, [facility] [address] [id number] [address] [place] [address], [place] [address] Jul, [facility] [address] [id number] [address] [place] [address], [place] [address] Jun, [facility] [address] [id number] [address] [place] [address], [place] [address] Jun, [facility] [address] [id number] [address] [place] [address], [place] [address] Jun, [facility] [address] [id number] [address] [place] [address], [place] [address] 18 Jun, 2014 [facility] [address] [id number] [address] [place] [address], [place] [address] 17 Jun, 2014 [facility] [address] [id number] [address] [place] [address], [place] [address] 17 Jun, 2014 [facility] [address] [id number] [address] [place] [address], [place] [address] 16 Jun, 2014 [facility] [address] [id number] [address] [place] [address], [place] [address] 16 Jun, 2014 [facility] [address] [id number] [address] [place] [address], [place] [address] 30 Apr, 2014 [facility] [address] [id number] [address] [place] [address], [place] [address] 30 Apr, 2014 [facility] [address] [id number] [address] [place] [address], [place] [address] 17 Mar, 2014 [facility] [address] [id number] [address] [place] [address], [place] [address] 17 Mar, 2014 [facility] [address] [id number] [address] [place] [address], [place] [address] 03 Mar, 2014 [facility] [address] [id number] [address] [place] [address], [place] [address] Mar, [facility] [address] [id number] [address] [place] [address], [place] [address] Jan, [facility] [address] [id number] [address] [place] [address], [place] [address] Jan, [facility] [address] [id number] [address] [place] [address], [place] [address] Oct, [facility] [address] [id number] [address] [place] [address], [place] [address] Oct, [facility] [address] [id number] [address] [place] [address], [place] [address] Sep, [facility] [address] [id number] [address] [place] [address], [place] [address] Sep, [facility] [address] [id number] [address] [place] [address], [place] [address] Sep, [facility] [address] [id number] [address] [place] [address], [place] [address] Sep, [facility] [address] [id number] [address] [place] [address], [place] [address] Sep, [facility] [address] [id number] [address] [place] [address], [place] [address] Sep, [facility] [address] [id number] [address] [place] [address], [place] [address] Aug, [facility] [address] [id number] [address] [place] [address], [place] [address] Aug, [facility] [address] [id number] [address] [place] [address], [place] [address] Jul, [facility] [address] [id number] [address] [place] [address], [place] [address] Jul, [facility] [address] [id number] [address] [place] [address], [place] [address] Jul, [facility] [address] [id number] [address] [place] [address], [place] [address] Jul, [facility] [address] [id number] [address] [place] [address], [place] [address] Jun, [facility] [address] [id number] [address] [place] [address], [place] [id number] Jun, [facility] [address] [id number] [address] [place] [address], [place] [id number] May, [facility] [address] [id number] [address] [place] [address], [place] [address] May, [facility] [address] [id number] [address] [place] [id number] Apr, [facility] [address] [id number] [address] [place] [address], [place] [id number] Apr, [facility] [address] [id number] [address] [place] [id number] Apr, [facility] [address] [id number] [address] [place] [id number] Apr, [facility] [address] [id number] [address] [place] [id number] Apr, [facility] [address] [id number] [address] [place] [address], [place] [id number] Apr, [facility] [address] [id number] [address] [place] [id number] Mar, [facility] [address] [id number] [address] [place] [id number] Mar, [facility] [address] [id number] [address] [place] [id number] 09 Mar, 2013 [facility] [address] [id number] [address] [place] [address], [place] [id number] 05 Mar, 2012 [facility] [address] [id number] [address] [place] [address], [place] [id number] 05 Mar, 2013 [facility] [address] [id number] [address] [place] [address], [place] [id number] Feb, [facility] [address] [id number] [address] [place] [address], [place] [address] Feb, [facility] [address] [id number] [address] [place] [address], [place] [id number] Feb, [facility] [address] [id number] [address] [place] [address], [place] [address] Feb, [facility] [address] [id number] [address] [place] [address], [place] [address] Jan, [facility] [address] [id number] [address] [place] [address], [place] [address] Jan, [facility] [address] [id number] [address] [place] [address], [place] [address] 16 Jan, 2013 [facility] [address] [id number] [address] [place] [address], [place] [address] Jan, [facility] [address] [id number] [address] [place] [address], [place] [address] Jan, [facility] [address] [id number] [address] [place] [address], [place] [address] Jan, [facility] [address] [id number] [address] [place] [address], [place] [address] Dec, [facility] [address] [id number] [address] [place] [address], [place] [address] Dec, [facility] [address] [id number] [address] [place] [address], [place] [address] Dec, [facility] [address] [id number] [address] [place] [address], [place] [address] 14 Dec, 2012 [facility] [address] [id number] [address] [place] [address], [place] [address] 13 Dec, 2012 [facility] [address] [id number] [address] [place] [address], [place] [address] 12 Dec, 2012 [facility] [address] [id number] [address] [place] [address], [place] [address] Dec, [facility] [address] [id number] [address] [place] [address], [place] [address] 07 Dec, 2012 [facility] [address] [id number] [address] [place] [address], [place] [address] 05 Dec, 2012 [facility] [address] [id number] [address] [place] [address], [place] [address] Dec, [facility] [address] [id number] [address] [place] [address], [place] [address] November, [facility] [address] [id number] [address] [place] [address], [place] [address] November, [facility] [address] [id number] [address] [place] [address], [place] [address] November, [facility] [address] [id number] [address] [place] [address], [place] [address] November, [facility] [address] [id number] [address] [place] [address], [place] [address] November, [facility] [address] [id number] [address] [place] [address], [place] [address] Oct, [facility] [address] [id number] [address] [place] [address], [place] [address] Oct, [facility] [address] [id number] [address] [place] [address], [place] [address] Oct, [facility] [address] [id number] [address] [place] [address], [place] [address] Oct, [facility] [address] [id number] [address] [place] [address], [place] [address] Oct, [facility] [address] [id number] [address] [place] [address], [place] [address] Sep, [facility] [address] [id number] [address] [place] [address], [place] [address] Sep, [facility] [address] [id number] [address] [place] [address], [place] [address] 18 Sep, 2012 [facility] [address] [id number] [address] [place] [address], [place] [address] 05 Sep, 2012 [facility] [address] [id number] [address] [place] [address], [place] [address] 26 Aug, 2012 [facility] [address] [id number] [address] [place] [address], [place] [address] Aug, [facility] [address] [id number] [address] [place] [address], [place] [address] 18 Aug, 2012 [facility] [address] [id number] [address] [place] [address], [place] [address] 15 Aug, 2012 [facility] [address] [id number] [address] [place] [address], [place] [address] Jun, [facility] [address] [id number] [address] [place] [address], [place] [address] Jun, [facility] [address] [id number] [address] [place] [address], [place] [address] Jun, [facility] [address] [id number] [address] [place] [address], [place] [address] Jun, [facility] [address] [id number] [address] [place] [address], [place] [address] Jun, [facility] [address] [id number] [address] [place] [address], [place] [address] Jun, [facility] [address] [id number] [address] [place] [address], [place] [address] Jun, [facility] [address] [id number] [address] [place] [address], [place] [address] Jun, [facility] [address] [id number] [address] [place] [address], [place] [address] Jun, [facility] [address] [id number] [address] [place] [address], [place] [address] Jun, [facility] [address] [id number] [address] [place] [address], [place] [address] May, [facility] [address] [id number] [address] [place] [address], [place] [address] May, [facility] [address] [id number] [address] [place] [address], [place] [address] May, [facility] [address] [id number] [address] [place] [address], [place] [address] May, [facility] [address] [id number] [address] [place] [address], [place] [address] 26 May, 2012 [facility] [address] [id number] [address] [place] [address], [place] [address] 16 May, 2012 [facility] [address] [id number] [address] [place] [address], [place] [address] 16 May, 2012 [facility] [address] [id number] [address] [place] [address], [place] [address] 14 May, 2012 [facility] [address] [id number] [address] [place] [address], [place] [address] 14 May, 2012 [facility] [address] [id number] [address] [place] [address], [place] [address] 30 Apr, 2012 [facility] [address] [id number] [address] [place] [address], [place] [address] 30 Apr, 2012 [facility] [address] [id number] [address] [place] [address], [place] [address] Apr, [facility] [address] [id number] [address] [place] [address], [place] [address] 17 Apr, 2012 [facility] [address] [id number] [address] [place] [address], [place] [address] Apr, [facility] [address] [id number] [address] [place] [address], [place] [address] 18 Mar, 2012 [facility] [address] [id number] [address] [place] [address], [place] [address] 17 Mar, 2012 [facility] [address] [id number] [address] [place] [address], [place] [address] 07 Mar, 2012 [facility] [address] [id number] [address] [place] [address], [place] [address] 27 Feb, 2012 [facility] [address] [id number] [address] [place] [address], [place] [address] 16 Feb, 2012 [facility] [address] [id number] [address] [place] [address], [place] [address] 15 Feb, 2012 [facility] [address] [id number] [address] [place] [address], [place] [address] 14 Feb, 2012 [facility] [address] [id number] [address] [place] [address], [place] [address] Jan, [facility] [address] [id number] [address] [place] [address], [place] [address] Jan, [facility] [address] [id number] [address] [place] [address], [place] [address] Jan, [facility] [address] [id number] [address] [place] [address], [place] [address] Jan, [facility] [address] [id number] [address] [place] [address], [place] [address] Jan, [facility] [address] [id number] [address] [place] [address], [place] [address] Jan, [facility] [address] [id number] [address] [place] [id number] Dec, [facility] [address] [id number] [address] [place] [address], [place] [address] Dec, [facility] [address] [id number] [address] [place] [address], [place] [address] Dec, [facility] [address] [id number] [address] [place] [address], [place] [address] November, [facility] [address] [id number] [address] [place] [address], [place] [address] November, [facility] [address] [id number] [address] [place] [address], [place] [address] November, [facility] [address] [id number] [address] [place] [address], [place] [address] November, [facility] [address] [id number] [address] [place] [address], [place] [address] Oct, [facility] [address] [id number] [address] [place] [address], [place] [address] Oct, [facility] [address] [id number] [address] [place] [address], [place] [address] Oct, [facility] [address] [id number] [address] [place] [address], [place] [address] Sep, [facility] [address] [id number] [address] [place] [address], [place] [address] Sep, [facility] [address] [id number] [address] [place] [address], [place] [address] Aug, [facility] [address] [id number] [address] [place] [address], [place] [address] Aug, [facility] [address] [id number] [address] [place] [address], [place] [address] Aug, [facility] [address] [id number] [address] [place] [address], [place] [address] Aug, [facility] [address] [id number] [address] [place] [address], [place] [address] Jul, [facility] [address] [id number] [address] [place] [address], [place] [address] Jul, [facility] [address] [id number] [address] [place] [address], [place] [address] Jul, [facility] [address] [id number] [address] [place] [address], [place] [address] Jul, [facility] [address] [id number] [address] [place] [address], [place] [address] Jul, [facility] [address] [id number] [address] [place] [address], [place] [address] Jul, [facility] [address] [id number] [address] [place] [address], [place] [address] Jul, [facility] [address] [id number] [address] [place] [address], [place] [address] Jul, [facility] [address] [id number] [address] [place] [address], [place] [address] Jun, [facility] [address] [id number] [address] [place] [address], [place] [address] Jun, [facility] [address] [id number] [address] [place] [address], [place] [address] Jun, [facility] [address] [id number] [address] [place] [address], [place] [address] Jun, [facility] [address] [id number] [address] [place] [address], [place] [address] Jun, [facility] [address] [id number] [address] [place] [address], [place] [address] May, [facility] [address] [id number] [address] [place] [address], [place] [address] May, [facility] [address] [id number] [address] [place] [address], [place] [address] 17 May, 2011 [facility] [address] [id number] [address] [place] [address], [place] [address] 15 May, 2011 [facility] [address] [id number] [address] [place] [address], [place] [address] May, [facility] [address] [id number] [address] [place] [address], [place] [address] May, [facility] [address] [id number] [address] [place] [address], [place] [address] Apr, [facility] [address] [id number] [address] [place] [address], [place] [address] Apr, [facility] [address] [id number] [address] [place] [address], [place] [address] Apr, [facility] [address] [id number] [address] [place] [address], [place] [address] Feb, [facility] [address] [id number] [address] [place] [address], [place] [address] Feb, [facility] [address] [id number] [address] [place] [address], [place] [address] Oct, [facility] [address] [id number] [address] [place] [address], [place] [address] Jul, [facility] [address] [id number] [address] [place] [address], [place] [address] Jul, [facility] [address] [id number] [address] [place] [address], [place] [address] Jun, [facility] [address] [id number] [address] [place] [address], [place] [address] May, [facility] [address] [id number] [address] [place] [address], [place] [address] May, [facility] [address] [id number] [address] [place] [address], [place] [address] May, [facility] [address] [id number] [address] [place] [id number] Apr, [facility] [address] [facility] [id number] [address] [place] [id number] Jan, [facility] [address] [facility] [id number] [address] [place] [id number] November, IMMUNIZATIONS No Known Immunizations SOCIAL HISTORY Never Assessed REASON FOR VISIT PLAN OF CARE VITAL SIGNS Height 70 in 2013-04-06 Weight 210 lbs 2013-04-06 Temperature 98.5 degrees Fahrenheit 2013-04-06 Heart Rate 80 bpm 2013-04-06 Respiratory Rate 20 2013-04-06 Blood pressure systolic 110 mmHg 2013-04-06 Blood pressure diastolic 70 mmHg 2013-04-06 MEDICATIONS No Known Medications RESULTS No Results [...]
[2020-01-31 09:36] LABS: GLUCOSE 105 MG/DL (70-105); TOTAL PROTEIN 7.9 GM/DL (6.4-8.2)
--- OUTSIDE RECORDS SUMMARY | 2020-01-31 09:36 | XMS REPORT ---
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 Name Role Phone Migration, Doctor Unavailable Unavailable PROBLEMS Type Condition ICD9-CM Code BFV04-UH Code Onset Dates Condition S tatus SNOMED Code Problem Osteoarthritis M19.90 Active 66467 5006 Problem Bilateral carotid artery disease I77.9 Active 437427245 Problem Stage 3 chronic kidney disease N18.3 Active 016872504 Problem Essential hypertension I10 Active 62987272 Problem Acquired hypothyroidism E03.9 Active 172493726 Problem GERD (gastroesophageal reflux disease) K21.9 Active 251565494 Problem Seasonal allergic rhinitis due to pollen J30.1 Active 15258390 Problem Schizo affective schizophrenia F25.0 Active 566286784 Problem Fibromyalgia M79.7 Active 5928848 05 Problem Vitamin D deficiency E55.9 Active 87664922 Problem Iron deficiency anemia, unspecified iron deficiency an emia type D50.9 Active 47783983 Problem Secondary hyperparathyroidism, not elsewhere classified E21.1 Active 79805494 ALLERGIES No Information ENCOUNTERS Encounter Location Date Diagnosis [address] [id number] [address] 07 Dec, 2019 Osteoarthritis M19.90 [facility] [address] [id number] [address] [place] [address] November, Encounter for medication mon itoring Z51.[address] [id number] [address] November, Encounter for medication mon itoring Z51.81 and Osteoarthritis M19.90 [facility] [address] [place] [address] November, Seasonal allergic rhinitis d ue to pollen J30.1 [facility] [address] [id number] [address] [place] [phone] 14 Oct, 2019 Lumbar radiculopathy M54.16 ; Fibromyalgia M79.7 ; Essential hypertension I10 and GERD (gastroesophageal reflux disease) K21.9 [facility] [address] [facility] [id number] [address] [place] [id number] 03 Oct, 2019 Osteoarthritis M19.90 [facility] [address] [facility] [id number] [address] [place] [phone] Sep, [facility] [address] [facility] [id number] [address] [place] [phone] Aug, Osteoarthritis M19.90 [facility] [address] [facility] [id number] [address] [place] [phone] Jul, Osteoarthritis M19.90 [facility] [address] [facility] [id number] [address] [place] [address] Jun, Osteoarthritis M19.90 [facility] [address] [facility] [id number] [address] [place] [phone] Jun, Herpes zoster without compli cation B02.9 [facility] [address] [facility] [id number] [address] [place] [phone] May, Osteoarthritis M19.90 [facility] [address] [facility] [id number] [address] [place] [phone] May, [facility] [address] [facility] [id number] [address] [place] [phone] Apr, [facility] [address] [facility] [id number] [address] [place] [address] Mar, Osteoarthritis M19.90 [facility] [address] [facility] [id number] [address] [place] [phone] Mar, [facility] [address] [facility] [id number] [address] [place] [address] Feb, Lumbago with sciatica, left side M54.42 ; Lumbago with sciatica, right side M54.41 and Other chronic pain G89.29 [facility] [address] [id number] [address] [place] [phone] 23 Feb, 2019 Encounter for Medicare jesus costello wellness exam Z00.00 ; Schizo affective schizophrenia F25.0 ; Essential hypertension I10 ; GERD (gastroesophageal reflux disease) K21.9 ; Secondary hyperparathyroidism, not elsewhere classified E21.1 ; Idiopathic peripheral neuropathy G60.9 ; Stage 3 chronic kidney disease N18.3 ; Acquired hypothyroidism E03.9 ; Bilateral carotid artery disease I77.9 and Hypothyroidism E03.9 [facility] [address] [facility] [id number] [address] [place] [address] Feb, Osteoarthritis M19.90 [place] [address] [facility] [id number] [address] [place] [address] Jan, Osteoarthritis M19.90 [facility] [address] [facility] [id number] [address] [place] [phone] Jan, Osteoarthritis M19.90 [facility] [address] [facility] [id number] [address] [place] [phone] Dec, Acquired hypothyroidism E03. 9 [facility] [address] [facility] [id number] [address] [place] [address] Dec, Fibromyalgia M79.7 ; Hypothy roidism E03.9 ; Essential hypertension I10 and Sensory loss R20.[address] [place] [address] November, Osteoarthritis M19.90 [facility] [address] [facility] [id number] [address] [place] [address] Oct, Osteoarthritis M19.90 [facility] [address] [facility] [id number] [address] [place] [phone] Oct, Sore throat J02.9 and Acute nasopharyngitis J00 [facility] [address] [facility] [id number] [address] [place] [address] Sep, Osteoarthritis M19.90 [facility] [address] [facility] [id number] [address] [place] [phone] Sep, Acute non-recurrent maxillar y sinusitis J01.00 [facility] [address] [id number] [address] [place] [phone] 18 Aug, 2018 Acute non-recurrent pansinus itis J01.40 [facility] [address] [id number] [address] [place] [address] Jul, Osteoarthritis M19.90 [facility] [address] [address] Jul, [place] [address] [id number] [address] [place] [address] Apr, Osteoarthritis M19.90 [place] [address] [address] Apr, Fibromyalgia M79.7 ; Essenti al hypertension I10 ; Encounter for immunization Z23 ; Stage 3 chronic kidney disease N18.3 and Depression F32.9 [facility] [address] [id number] [address] [place] [address] Dec, Fibromyalgia M79.7 ; Osteoar thritis M19.90 and Encounter for medication management Z79.899 [facility] [address] [id number] [address] [place] [phone] November, Nausea and vomiting, intract ability of vomiting not specified, unspecified vomiting type R11.2 and Dizziness R42 [facility] [address] [id number] [address] [place] [address] November, Fibromyalgia M79.7 [place] [address] [id number] [address] [place] [address] November, Medicare annual wellness vis it, initial Z00.00 ; Anxiety F41.9 ; Depression F32.9 ; Stage 3 chronic kidney disease N18.3 ; Fibromyalgia M79.7 ; Essential hypertension I10 ; Secondary hyperparathyroidism, not elsewhere classified E21.1 ; Osteoarthritis M19.90 ; Hypothyroidism E03.9 and Encounter for immunization Z23 [address] [address] [id number] [facility] [id number] [address] [place] [address] Oct, [facility] [address] [address] Oct, Sebaceous cyst L72.3 [place] [address] [id number] [address] [place] [phone] Sep, Low back pain, unspecified b ack pain laterality, unspecified chronicity, with sciatica presence unspecified M54.5 and Secondary hyperparathyroidism, not elsewhere classified E21.1 [place] [address] [address] Sep, Fibromyalgia M79.7 [address] [address] [address] Sep, Fibromyalgia M79.7 ; Plantar fasciitis, bilateral M72.2 ; Essential hypertension I10 ; Depression F32.9 and Epidermoid cyst L72.0 [place] [address] [address] [address] Jul, [address] [address] [address] [address] Jul, Fibromyalgia M79.7 ; Iron de ficiency anemia, unspecified iron deficiency anemia type D50.9 and Acute nasopharyngitis J00 [facility] [id number] [place] [address] Jun, Sore throat J02.9 and Acute serous otitis media of left ear, recurrence not specified H65.02 [facility] [address] [id number] [address] [place] [address] Jun, Hypothyroidism E03.9 [facility] [id number] [place] [address] Jun, [place] [id number] [place] [address] Jun, Hypothyroidism E03.9 ; Essen tial hypertension I10 and Osteoarthritis M19.90 [facility] [address] [address] May, [facility] [address] [address] May, [facility] [address] [address] Feb, [address] [address] [address] [address] Feb, Leonela-menopausal N95.1 and To bacco use Z72.0 [address] [address] [address] [address] Jan, [address] [address] [address] Jan, Osteoarthritis M19.90 ; Bila teral carotid artery disease I77.9 ; Raynauds syndrome I73.00 ; Essential hypertension I10 ; Allergic rhinitis J30.9 ; Stage 3 chronic kidney disease N18.3 ; Fibromyalgia M79.7 ; Hypothyroidism E03.9 ; GERD (gastroesophageal reflux disease) K21.9 and Vitamin D deficiency E55.9 [facility] [address] [id number] [address] [place] [address] Dec, Raynauds syndrome I73.00 ; P lantar fascial fibromatosis M72.2 ; Osteoarthritis M19.90 and Fibromyalgia M79.7 [facility] [address] [id number] [address] [place] [address] Dec, [address] [address] Dec, [address] [address] [address] Oct, Function kidney decreased N2 8.9 [facility] [address] [place] [id number] Oct, Dental examination Z01.20 [facility] [address] [id number] [address] [place] [phone] 18 Oct, 2016 Essential hypertension I10 a nd Function kidney decreased N28.9 [facility] [address] [id number] [address] [place] [id number] 04 Oct, 2016 Dental examination Z01.20 [facility] [address] [id number] [address] [place] [phone] Oct, [facility] [address] [id number] [address] [place] [phone] 24 Sep, 2016 Other specified disorders in volving the immune mechanism D89.89 and Schizo affective schizophrenia F25.0 [facility] [address] [id number] [address] [place] [phone] Sep, Schizo affective schizophren ia F25.0 [facility] [address] [id number] [address] [place] [phone] 16 Sep, 2016 Eustachian tube dysfunction, bilateral H69.83 [facility] [address] [id number] [address] [place] [phone] 15 Sep, 2016 [facility] [address] [facility] [id number] [address] [place] [address] 14 Sep, 2016 [facility] [address] [id number] [address] [place] [phone] 14 Sep, 2016 [facility] [address] [facility] [id number] [address] [place] [id number] 13 Sep, 2016 Eustachian tube dysfunction, bilateral H69.83 [facility] [address] [id number] [address] [place] [address] 09 Sep, 2016 Allergic rhinitis J30.9 ; Es sential hypertension I10 ; Hypothyroidism E03.9 and Schizo affective schizophrenia F25.0 [facility] [address] [id number] [address] [place] [phone] Jul, Eustachian tube dysfunction, bilateral H69.83 and Visit for TB skin test Z11.1 [facility] [address] [facility] [id number] [address] [place] [address] Jul, Subacute pansinusitis J01.40 [facility] [address] [id number] [address] [place] [address] Jun, Schizo affective schizophren ia F25.0 ; Depression F32.9 ; Allergic rhinitis J30.9 ; Raynauds syndrome I73.00 ; Essential hypertension I10 ; Slow transit constipation K59.01 ; GERD (gastroesophageal reflux disease) K21.9 ; Hypothyroidism E03.9 ; Nicotine addiction F17.200 ; Other viral agents as the cause of diseases classified elsewhere B97.89 ; Acute upper respiratory infection, unspecified J06.9 and Osteoarthritis M19.90 [facility] [address] [id number] [address] [place] [phone] Jun, Allergic rhinitis J30.9 and GERD (gastroesophageal reflux disease) K21.9 [facility] [address] [id number] [address] [place] [phone] May, [facility] [address] [address] Mar, Schizo affective schizophren ia F25.0 [facility] [address] [id number] [address] [place] [address] Mar, Schizo affective schizophren ia F25.0 [facility] [address] [id number] [address] [place] [phone] 15 Mar, 2016 Schizo affective schizophren ia F25.0 [place] [id number] [address] [place] [id number] 06 Mar, 2016 Acute non-recurrent maxillar y sinusitis J01.00 [facility] [address] [id number] [address] [place] [address] Feb, Schizo affective schizophren ia F25.0 [facility] [id number] [address] [place] [phone] Feb, Contact dermatitis and eczem a L25.9 [place] [address] [address] Jan, [place] [address] [address] Jan, Schizo affective schizophren ia F25.0 ; Slow transit constipation K59.01 ; Essential hypertension I10 ; GERD (gastroesophageal reflux disease) K21.9 ; Hypothyroidism E03.9 ; Osteoarthritis M19.90 ; Low back pain, unspecified back pain laterality, unspecified chronicity, with sciatica presence unspecified M54.5 and Bilateral carotid artery disease I77.9 [place] [address] [address] Oct, [place] [address] [address] Sep, Hypothyroid E03.9 [place] [address] [address] Sep, Schizo affective schizophren ia F25.0 ; Depression F32.9 ; Anxiety F41.9 ; Allergic rhinitis J30.9 ; Raynauds syndrome I73.00 ; Insomnia G47.00 ; Essential hypertension I10 ; GERD (gastroesophageal reflux disease) K21.9 ; Hypothyroidism E03.9 and Vitamin D deficiency E55.9 [place] [address] [address] Sep, [place] [address] [address] Sep, [place] [address] [address] Aug, Allergic rhinitis J30.9 ; De pression F32.9 ; Anxiety F41.9 ; Raynauds syndrome I73.00 ; Insomnia G47.00 and GERD (gastroesophageal reflux disease) K21.9 [place] [address] [place] [address] Aug, MONICA (secretory otitis media) H65.90 and Raynauds syndrome I73.00 [facility] [address] [id number] [address] [place] [address] Jul, Acute otitis externa of both ears, unspecified type H60.503 [place] [address] [address] Jun, [place] [address] [address] Jun, Essential hypertension I10 ; Allergic rhinitis J30.9 ; Hypothyroidism E03.9 and Osteoarthritis M19.90 [place] [address] [address] Jun, Routine adult health mainten ance Z00.00 ; Hypothyroidism E03.9 ; Essential hypertension I10 ; Insomnia G47.00 ; Nicotine addiction F17.200 ; Raynauds syndrome I73.00 ; GERD (gastroesophageal reflux disease) K21.9 ; Allergic rhinitis J30.9 ; Anxiety F41.9 ; Depression F32.9 and Schizo affective schizophrenia F25.0 [place] [address] [address] May, Upper respiratory tract infe ction, unspecified type J06.9 [place] [address] [id number] [address] [place] [address] Mar, [facility] [id number] [id number] Mar, [place] [address] [address] Mar, [place] [address] [address] Mar, [facility] [address] [address] Feb, Jaw pain 784.92 and Environm ental and seasonal allergies 477.8 [facility] [address] [id number] [address] [place] [address], [place] [address] Feb, [facility] [address] [id number] [address] [place] [address], [place] [address] Oct, [facility] [address] [id number] [address] [place] [address], [place] [address] Oct, [facility] [address] [id number] [address] [place] [address], [place] [address] Oct, [facility] [address] [id number] [address] [place] [address], [place] [address] Oct, [facility] [address] [id number] [address] [place] [phone] Sep, [facility] [address] [id number] [address] [place] [address], [place] [address] Sep, [facility] [address] [id number] [address] [place] [address], [place] [address] Jul, [facility] [address] [id number] [address] [place] [address], [place] [address] Jul, [facility] [address] [id number] [address] [place] [phone] Jul, [facility] [address] [id number] [address] [place] [id number] Jul, [facility] [address] [id number] [address] [place] [phone] Jul, [facility] [address] [id number] [address] [place] [address], [place] [address] Jul, [facility] [address] [id number] [address] [place] [phone] Jul, [facility] [address] [id number] [address] [place] [address], [place] [address] Jun, [facility] [address] [id number] [address] [place] [address], [place] [address] 31 Jun, 2014 [facility] [address] [id number] [address] [place] [address], [place] [address] 22 Jun, 2014 [facility] [address] [id number] [address] [place] [address], [place] [address] 18 Jun, 2014 [facility] [address] [id number] [address] [place] [address], [place] [address] 17 Jun, 2014 [facility] [address] [id number] [address] [place] [address], [place] [id number] 17 Jun, 2014 [facility] [address] [id number] [address] [place] [address], [place] [address] 16 Jun, 2014 [facility] [address] [id number] [address] [place] [address], [place] [address] 16 Jun, 2014 [facility] [address] [id number] [address] [place] [address], [place] [address] 30 Apr, 2014 [facility] [address] [id number] [address] [place] [address], [place] [address] 30 Apr, 2014 [facility] [address] [id number] [address] [place] [address], [place] [address] 17 Mar, 2014 [facility] [address] [id number] [address] [place] [address], [place] [address] 17 Mar, 2014 [facility] [address] [id number] [address] [place] [address], [place] [address] 03 Mar, 2014 [facility] [address] [id number] [address] [place] [address], [place] [address] 03 Mar, 2014 [facility] [address] [id number] [address] [place] [address], [place] [address] 16 Jan, 2014 [facility] [address] [id number] [address] [place] [address], [place] [address] 16 Jan, 2014 [facility] [address] [id number] [address] [place] [address], [place] [address] Oct, [facility] [address] [id number] [address] [place] [address], [place] [address] Oct, [facility] [address] [id number] [address] [place] [address], [place] [id number] Sep, [facility] [address] [id number] [address] [place] [address], [place] [id number] Sep, [facility] [address] [id number] [address] [place] [address], [place] [id number] Sep, [facility] [address] [id number] [address] [place] [address], [place] [id number] Sep, [facility] [address] [id number] [address] [place] [address], [place] [id number] Sep, [facility] [address] [id number] [address] [place] [address], [place] [id number] Sep, [facility] [address] [id number] [address] [place] [address], [place] [id number] Aug, [facility] [address] [id number] [address] [place] [address], [place] [id number] Aug, [facility] [address] [id number] [address] [place] [address], [place] [id number] Jul, [facility] [address] [id number] [address] [place] [address], [place] [id number] Jul, [facility] [address] [id number] [address] [place] [id number] Jul, [facility] [address] [id number] [address] [place] [address], [place] [address] Jul, [facility] [address] [id number] [address] [place] [address], [place] [id number] Jun, [facility] [address] [id number] [address] [place] [address], [place] [id number] Jun, [facility] [address] [id number] [address] [place] [id number] May, [facility] [address] [id number] [address] [place] [address], [place] [id number] May, [facility] [address] [id number] [address] [place] [address], [place] [id number] Apr, [facility] [address] [id number] [address] [place], [place] [address], [place] [address] Apr, [facility] [address] [id number] [address] [place] [address], [place] [address] Apr, [facility] [address] [id number] [address] [place] [address], [place] [address] Apr, [facility] [address] [id number] [address] [place] [address], [place] [address] Apr, [facility] [address] [id number] [address] [place] [address], [place] [address] Apr, [facility] [address] [id number] [address] [place] [address], [place] [address] Mar, [facility] [address] [id number] [address] [place] [address], [place] [address] Mar, [facility] [address] [id number] [address] [place] [address], [place] [address] Mar, [facility] [address] [id number] [address] [place] [address], [place] [address] Mar, [facility] [address] [id number] [address] [place] [id number] Mar, [facility] [address] [id number] [address] [place] [address], [place] [address] Feb, [facility] [address] [id number] [address] [place] [address], [place] [address] Feb, [facility] [address] [id number] [address] [place] [id number] Feb, [facility] [address] [id number] [facility] [place] [address] 08 Feb, 2013 [facility] [address] [id number] [facility] [place] [address] 18 Jan, 2013 [facility] [address] [id number] [facility] [place] [address] 17 Jan, 2012 [facility] [address] [id number] [address] [place] [address], [place] [address] 16 Jan, 2013 [facility] [address] [id number] [address] [place] [address], [place] [address] Jan, [facility] [address] [id number] [address] [place] [address], [place] [address] Jan, [facility] [address] [id number] [address] [place] [address], [place] [address] Jan, [facility] [address] [id number] [address] [place] [address], [place] [address] 27 Dec, 2012 [facility] [address] [id number] [address] [place] [address], [place] [address] 25 Dec, 2012 [facility] [address] [id number] [address] [place] [address], [place] [address] Dec, [facility] [address] [id number] [address] [place] [address], [place] [address] 14 Dec, 2012 [facility] [address] [id number] [address] [place] [address], [place] [address] 13 Dec, 2012 [facility] [address] [id number] [address] [place] [address], [place] [address] 12 Dec, 2012 [facility] [address] [id number] [address] [place] [address], [place] [address] 11 Dec, 2012 [facility] [address] [id number] [address] [place] [address], [place] [address] 07 Dec, 2012 [facility] [address] [id number] [address] [place] [address] [address] Dec, [facility] [address] [id number] [address] [place] [address], [place] [address] Dec, [facility] [address] [id number] [address] [place] [address], [place] [address] November, [facility] [address] [id number] [address] [place] [address], [place] [address] November, [facility] [address] [id number] [address] [place] [address], [place] [address] November, [facility] [address] [id number] [address] [place] [address], [place] [address] November, [facility] [address] [id number] [address] [place] [address], [place] [address] November, [facility] [address] [id number] [address] [place] [address], [place] [address] Oct, [facility] [address] [id number] [address] [place] [address], [place] [address] Oct, [facility] [address] [id number] [address] [place] [address], [place] [address] Oct, [facility] [address] [id number] [address] [place] [address], [place] [address] Oct, [facility] [address] [id number] [address] [place] [address], [place] [address] Oct, [facility] [address] [id number] [address] [place] [address], [place] [address] Sep, [facility] [address] [id number] [address] [place] [address], [place] [address] Sep, [facility] [address] [id number] [address] [place] [address], [place] [address] Sep, [facility] [address] [id number] [address] [place] [address], [place] [address] Sep, [facility] [address] [id number] [address] [place] [address], [place] [address] 26 Aug, 2012 [facility] [address] [id number] [address] [place] [address], [place] [address] 18 Aug, 2012 [facility] [address] [id number] [address] [place] [address], [place] [address] 18 Aug, 2012 [facility] [address] [id number] [address] [place] [address], [place] [address] 15 Aug, 2012 [facility] [address] [id number] [address] [place] [address], [place] [address] 17 Jun, 2012 [facility] [address] [id number] [address] [place] [address], [place] [address] Jun, [facility] [address] [id number] [address] [place] [address], [place] [address] Jun, [facility] [address] [id number] [address] [place] [address], [place] [address] Jun, [facility] [address] [id number] [address] [place] [address], [place] [address] Jun, [facility] [address] [id number] [address] [place] [address], [place] [address] Jun, [facility] [address] [id number] [address] [place] [address], [place] [address] Jun, [facility] [address] [id number] [address] [place] [address], [place] [address] Jun, [facility] [address] [id number] [address] [place] [address], [place] [address] Jun, [facility] [address] [id number] [address] [place] [address], [place] [address] Jun, [facility] [address] [id number] [address] [place] [address], [place] [address] May, [facility] [address] [id number] [address] [place] [address], [place] [address] May, [facility] [address] [id number] [address] [place] [address], [place] [address] 27 May, 2012 [facility] [address] [id number] [address] [place] [address], [place] [address] May, [facility] [address] [id number] [address] [place] [address], [place] [address] May, [facility] [address] [id number] [address] [place] [address], [place] [address] May, [facility] [address] [id number] [address] [place] [address], [place] [address] 16 May, 2012 [facility] [address] [id number] [address] [place] [address], [place] [address] May, [facility] [address] [id number] [address] [place] [address], [place] [address] May, [facility] [address] [id number] [address] [place] [address], [place] [address] 30 Apr, 2012 [facility] [address] [id number] [address] [place] [address], [place] [address] 30 Apr, 2012 [facility] [address] [id number] [address] [place] [address] Apr, [facility] [address] [id number] [address] [place] [address] Apr, [facility] [address] [id number] [address] [place] [id number] 09 Apr, 2012 [facility] [address] [id number] [address] [place] [address] [address] 18 Sep2011 [facility] [address] [id number] [address] [place] [id number] 17 Sep2011 [facility] [address] [id number] [address] [place] [id number] 07 Sep2011 [facility] [address] [id number] [address] [place] [id number] Feb, [facility] [address] [id number] [address] [place] [address], [place] [address] Feb, [facility] [address] [id number] [address] [place] [address], [place] [address] Feb, [facility] [address] [id number] [address] [place] [address], [place] [address] Feb, [facility] [address] [id number] [address] [place] [address], [place] [address] Jan, [facility] [address] [id number] [address] [place] [address], [place] [address] Jan, [facility] [address] [id number] [address] [place] [address], [place] [address] Jan, [facility] [address] [id number] [address] [place] [address], [place] [address] Jan, [facility] [address] [id number] [address] [place] [address], [place] [address] Jan, [facility] [address] [id number] [address] [place] [address], [place] [address] Jan, [facility] [address] [id number] [address] [place] [address], [place] [address] Dec, [facility] [address] [id number] [address] [place] [address], [place] [address] Dec, [facility] [address] [id number] [address] [place] [address], [place] [address] Dec, [facility] [address] [id number] [address] [place] [address], [place] [address] November, [facility] [address] [id number] [address] [place] [address], [place] [address] November, [facility] [address] [id number] [address] [place] [address], [place] [address] November, [facility] [address] [id number] [address] [place] [address], [place] [address] November, [facility] [address] [id number] [address] [place] [address], [place] [address] Oct, [facility] [address] [id number] [address] [place] [address], [place] [address] Oct, [facility] [address] [id number] [address] [place] [address], [place] [address] Oct, [facility] [address] [id number] [address] [place] [address], [place] [address] Sep, [facility] [address] [id number] [address] [place] [address], [place] [address] Sep, [facility] [address] [id number] [address] [place] [address], [place] [address] Aug, [facility] [address] [id number] [address] [place] [address], [place] [address] Aug, [facility] [address] [id number] [address] [place] [address], [place] [address] Aug, [facility] [address] [id number] [address] [place] [address], [place] [address] Aug, [facility] [address] [id number] [address] [place] [address], [place] [address] Jul, [facility] [address] [id number] [address] [place] [address], [place] [address] Jul, [facility] [address] [id number] [address] [place] [address], [place] [address] Jul, [facility] [address] [id number] [address] [place] [address], [place] [address] Jul, [facility] [address] [id number] [address] [place] [address], [place] [address] Jul, [facility] [address] [id number] [address] [place] [address], [place] [address] Jul, [facility] [address] [id number] [address] [place] [address], [place] [address] Jul, [facility] [address] [id number] [address] [place] [address], [place] [address] Jul, [facility] [address] [id number] [address] [place] [address], [place] [address] Jun, [facility] [address] [id number] [address] [place] [address], [place] [address] Jun, [facility] [address] [id number] [address] [place] [address], [place] [address] Jun, [facility] [address] [id number] [address] [place] [address], [place] [address] Jun, [facility] [address] [id number] [address] [place] [address], [place] [address] Jun, [facility] [address] [id number] [address] [place] [address], [place] [address] May, [facility] [address] [id number] [address] [place] [address], [place] [address] May, [facility] [address] [id number] [address] [place] [address], [place] [address] May, [facility] [address] [id number] [address] [place] [id number] May, [facility] [address] [id number] [address] [place] [address] May, [facility] [address] [id number] [address] [place] [address], [place] [address] May, [facility] [address] [id number] [address] [place] [address], [place] [address] Apr, [facility] [address] [id number] [address] [place] [address], [place] [address] Apr, [facility] [address] [id number] [address] [place] [id number] Apr, [facility] [address] [id number] [address] [place] [address] Feb, [facility] [address] [id number] [address] [place] [address] Feb, [facility] [address] [id number] [address] [place] [id number] Oct, [facility] [address] [id number] [address] [place] [id number] Jul, [facility] [address] [id number] [address] [place] [id number] Jul, [facility] [address] [id number] [address] [place] [id number] Jun, [facility] [address] [id number] [address] [place] [id number] May, [facility] [address] [id number] [address] [place] [id number] May, [facility] [address] [id number] [address] [place] [id number] May, [facility] [address] [id number] [address] [place] [id number] Apr, [facility] [address] [id number] [address] [place] [id number] Jan, [facility] [address] [id number] [address] [place] [id number] November, IMMUNIZATIONS No Known Immunizations SOCIAL HISTORY Never Assessed REASON FOR VISIT PLAN OF CARE VITAL SIGNS Height 70 in 2013-03-25 Weight 201 lbs 2013-03-25 Temperature 98 degrees Fahrenheit 2013-03-25 Heart Rate 68 bpm 2013-03-25 Respiratory Rate 24 2013-03-25 Blood pressure systolic 102 mmHg 2013-03-25 Blood pressure diastolic 84 mmHg 2013-03-25 MEDICATIONS Unknown Medications RESULTS No Results PROCEDURES [...]
--- OUTSIDE RECORDS SUMMARY | 2020-01-31 09:36 | XMS REPORT ---
Author Author Ivet Knott Doctor Organization [facility] Address Unknown Phone Unavailable Care Team Providers Care Tinner Helper Name Role Phone Migration, Doctor Unavailable Unavailable PROBLEMS Type Condition ICD9-CM Code WLV05-NB Code Onset Dates Condition S tatus SNOMED Code Problem Osteoarthritis M19.90 Active 00763 5006 Problem Bilateral carotid artery disease I77.9 Active 211520635 Problem Stage 3 chronic kidney disease N18.3 Active 018632272 Problem Essential hypertension I10 Active 78373916 Problem Acquired hypothyroidism E03.9 Active 295091024 Problem GERD (gastroesophageal reflux disease) K21.9 Active 190833549 Problem Seasonal allergic rhinitis due to pollen J30.1 Active 87160128 Problem Schizo affective schizophrenia F25.0 Active 148084084 Problem Fibromyalgia M79.7 Active 5169378 05 Problem Vitamin D deficiency E55.9 Active 82098438 Problem Iron deficiency anemia, unspecified iron deficiency an emia type D50.9 Active 49628912 Problem Secondary hyperparathyroidism, not elsewhere classified E21.1 Active 07164829 ALLERGIES No Information ENCOUNTERS Encounter Location Date Diagnosis [address] [id number] [address] 07 Dec, [address] [facility] [address] [id number] [address] [place] [address] November, Encounter for medication mon itoring Z51.[address] [id number] [address] November, Encounter for medication mon itoring Z51.81 and Osteoarthritis M19.90 [facility] [address] [place] [address] November, Seasonal allergic rhinitis d ue to pollen J30.1 [facility] [address] [id number] [address] [place] [address] 14 Oct, 2019 Lumbar radiculopathy M54.16 ; Fibromyalgia M79.7 ; Essential hypertension I10 and GERD (gastroesophageal reflux disease) K21.9 [facility] [address] [facility] [id number] [address] [place] [address] 03 Oct, [address] [facility] [address] [facility] [id number] [address] [place] [address] Sep, [facility] [address] [facility] [id number] [address] [place] [address] Aug, Osteoarthritis M19.90 [facility] [address] [facility] [id number] [address] [place] [address] Jul, Osteoarthritis M19.90 [facility] [address] [facility] [id number] [address] [place] [address] Jun, Osteoarthritis M19.90 [facility] [address] [facility] [id number] [address] [place] [address] Jun, Herpes zoster without compli cation B02.9 [facility] [address] [facility] [id number] [address] [place] [address] May, Osteoarthritis M19.90 [facility] [address] [facility] [id number] [address] [place] [address] May, [facility] [address] [facility] [id number] [address] [place] [address] Apr, [facility] [address] [facility] [id number] [address] [place] [address] Mar, Osteoarthritis M19.90 [facility] [address] [facility] [id number] [address] [place] [address] Mar, [facility] [address] [facility] [id number] [address] [place] [address] Feb, Lumbago with sciatica, left side M54.42 ; Lumbago with sciatica, right side M54.41 and Other chronic pain G89.29 [facility] [address] [id number] [address] [place] [address] 23 Feb, 2019 Encounter for Medicare jesus costello wellness exam Z00.00 ; Schizo affective schizophrenia F25.0 ; Essential hypertension I10 ; GERD (gastroesophageal reflux disease) K21.9 ; Secondary hyperparathyroidism, not elsewhere classified E21.1 ; Idiopathic peripheral neuropathy G60.9 ; Stage 3 chronic kidney disease N18.3 ; Acquired hypothyroidism E03.9 ; Bilateral carotid artery disease I77.[address] [facility] [address] [facility] [id number] [address] [place] [address] Feb, Osteoarthritis M19.90 [place] [address] [facility] [id number] [address] [place] [address] Jan, Osteoarthritis M19.90 [facility] [address] [facility] [id number] [address] [place] [address] Jan, Osteoarthritis M19.90 [facility] [address] [facility] [id number] [address] [place] [address] Dec, Acquired hypothyroidism E03. 9 [facility] [address] [facility] [id number] [address] [place] [address] Dec, Fibromyalgia M79.7 ; Hypothy roidism E03.9 ; Essential hypertension I10 and Sensory loss R20.[address] [id number] [address] November, Osteoarthritis M19.90 [facility] [address] [facility] [id number] [address] [place] [address] Oct, Osteoarthritis M19.90 [facility] [address] [facility] [id number] [address] [place] [address] Oct, Sore throat J02.9 and Acute nasopharyngitis J00 [facility] [address] [facility] [id number] [address] [place] [address] Sep, Osteoarthritis M19.90 [facility] [address] [facility] [id number] [address] [place] [address] Sep, Acute non-recurrent maxillar y sinusitis J01.00 [facility] [address] [id number] [address] [place] [address] 18 Aug, 2018 Acute non-recurrent pansinus itis J01.40 [facility] [address] [id number] [address] [place] [address] Jul, Osteoarthritis M19.90 [facility] [address] [address] Jul, [place] [address] [id number] [address] [place] [address] Apr, Osteoarthritis M19.90 [place] [address] [address] Apr, Fibromyalgia M79.7 ; Essenti al hypertension I10 ; Encounter for immunization Z23 ; Stage 3 chronic kidney disease N18.[address] [facility] [address] [id number] [address] [place] [address] Dec, Fibromyalgia M79.7 ; Osteoar thritis M19.90 and Encounter for medication management Z79.899 [facility] [address] [id number] [address] [place] [address] November, Nausea and vomiting, intract ability of vomiting not specified, unspecified vomiting type R11.[address] [facility] [address] [id number] [address] [place] [address] November, Fibromyalgia M79.7 [place] [address] [place] [id number] [address] [place] [address] November, Medicare annual wellness vis it, initial Z00.00 ; Anxiety F41.9 ; Depression F32.9 ; Stage 3 chronic kidney disease N18.3 ; Fibromyalgia M79.7 ; Essential hypertension I10 ; Secondary hyperparathyroidism, not elsewhere classified E21.1 ; Osteoarthritis M19.90 ; Hypothyroidism E03.9 and Encounter for immunization Z23 [place] [id number] [facility] [id number] [address] [place] [address] Oct, [facility] [address] [address] Oct, Sebaceous cyst L72.3 [place] [address] [id number] [address] [place] [address] Sep, Low back pain, unspecified b ack pain laterality, unspecified chronicity, with sciatica presence unspecified M54.5 and Secondary hyperparathyroidism, not elsewhere classified E21.1 [place] [address] [address] Sep, Fibromyalgia M79.7 [place] [address] [address] Sep, Fibromyalgia M79.7 ; Plantar fasciitis, bilateral M72.2 ; Essential hypertension I10 ; Depression F32.9 and Epidermoid cyst L72.0 [place] [address] [address] Jul, [place] [address] [address] Jul, Fibromyalgia M79.7 ; Iron de ficiency anemia, unspecified iron deficiency anemia type D50.9 and Acute nasopharyngitis J00 [facility] [id number] [place] [address] Jun, Sore throat J02.9 and Acute serous otitis media of left ear, recurrence not specified H65.02 [facility] [id number] [address] [place] [address] Jun, Hypothyroidism E03.9 [facility] [id number] [place] [address] Jun, [place] [address] [id number] [place] [address] Jun, Hypothyroidism E03.9 ; Essen tial hypertension I10 and [address] M19[address]90 [facility] [address] [address] May, [facility] [address] [address] May, [facility] [address] [address] Feb, [place] [address] [address] Feb, Leonela-menopausal N95.1 and To bacco use Z72.0 [place] [address] [address] Jan, [place] [address] [address] Jan, Osteoarthritis M19.90 ; Bila teral carotid artery disease I77.9 ; Raynauds syndrome I73.00 ; Essential hypertension I10 ; Allergic rhinitis J30.9 ; Stage 3 chronic kidney disease N18.3 ; Fibromyalgia M79.7 ; Hypothyroidism E03.9 ; GERD (gastroesophageal reflux disease) K21.9 and Vitamin D deficiency E55.9 [facility] [address] [id number] [address] [place] [address] Dec, Raynauds syndrome I73.00 ; P lantar fascial fibromatosis M72.2 ; Osteoarthritis M19.[address] [facility] [address] [id number] [address] [place] [address] Dec, [place] [address] [address] Dec, [place] [address] [address] Oct, Function kidney decreased N2 8.9 [facility] [id number] [place] [id number] Oct, Dental examination Z01.20 [facility] [address] [id number] [address] [place] [address] 18 Oct, 2016 Essential hypertension I10 a nd Function kidney decreased N28.9 [facility] [address] [id number] [address] [place] [id number] 04 Oct, [address] [facility] [address] [id number] [address] [place] [address] Oct, [facility] [address] [id number] [address] [place] [address] 24 Sep, 2016 Other specified disorders in volving the immune mechanism D89.89 and Schizo affective schizophrenia F25.0 [facility] [address] [id number] [address] [place] [address] Sep, Schizo affective schizophren ia F25.0 [facility] [address] [id number] [address] [place] [address] 16 Sep, 2016 Eustachian tube dysfunction, bilateral H69.83 [facility] [address] [id number] [address] [place] [address] 15 Sep, 2016 [facility] [address] [facility] [id number] [address] [place] [address] 14 Sep, 2016 [facility] [address] [id number] [address] [place] [address] 14 Sep, 2016 [facility] [address] [facility] [id number] [address] [place] [address] 13 Sep, 2016 Eustachian tube dysfunction, bilateral H69.83 [facility] [address] [id number] [address] [place] [address] 09 Sep, 2016 Allergic rhinitis J30.9 ; Es sential hypertension I10 ; Hypothyroidism E03.9 and Schizo affective schizophrenia F25.0 [facility] [address] [id number] [address] [place] [address] Jul, Eustachian tube dysfunction, bilateral H69.83 and Visit for TB skin test Z11.1 [facility] [address] [facility] [id number] [address] [place] [address] Jul, Subacute pansinusitis J01.40 [facility] [address] [id number] [address] [place] [address] Jun, Schizo affective schizophren ia F25.0 ; Depression F32.9 ; Allergic rhinitis J30.9 ; Raynauds syndrome I73.00 ; Essential hypertension I10 ; Slow transit constipation K59.01 ; GERD (gastroesophageal reflux disease) K21.9 ; Hypothyroidism E03.9 ; Nicotine addiction F17.200 ; Other viral agents as the cause of diseases classified elsewhere B97.89 ; Acute upper respiratory infection, unspecified J06.[address] [facility] [address] [id number] [address] [place] [address] Jun, Allergic rhinitis J30.9 and GERD (gastroesophageal reflux disease) K21.9 [facility] [address] [id number] [address] [place] [address] May, [facility] [address] [address] Mar, Schizo affective schizophren ia F25.0 [facility] [address] [id number] [address] [place] [address] Mar, Schizo affective schizophren ia F25.0 [facility] [address] [id number] [address] [place] [address] 15 Mar, 2016 Schizo affective schizophren ia F25.0 [place] [address] [id number] [address] [place] [address] 06 Mar, 2016 Acute non-recurrent maxillar y sinusitis J01.00 [facility] [address] [id number] [address] [place] [address] Feb, Schizo affective schizophren ia F25.0 [facility] [address] [id number] [address] [place] [address] Feb, Contact dermatitis and eczem a L25.9 [place] [address] [address] Jan, [place] [address] [address] Jan, Schizo affective schizophren ia F25.0 ; Slow transit constipation K59.01 ; Essential hypertension I10 ; GERD (gastroesophageal reflux disease) K21.9 ; Hypothyroidism E03.9 ; Osteoarthritis M19.90 ; Low back pain, unspecified back pain laterality, unspecified chronicity, with sciatica presence unspecified M54.5 and Bilateral carotid artery disease I77.9 [place] [address] [address] Oct, [place] [address] [address] Sep, Hypothyroid E03.9 [place] [address] [address] Sep, Schizo affective schizophren ia F25.0 ; Depression F32.9 ; Anxiety F41.9 ; Allergic rhinitis J30.9 ; Raynauds syndrome I73.00 ; Insomnia G47.00 ; Essential hypertension I10 ; GERD (gastroesophageal reflux disease) K21.9 ; Hypothyroidism E03.9 and Vitamin D deficiency E55.9 [place] [address] [address] Sep, [place] [address] [address] Sep, [place] [address] [address] Aug, Allergic rhinitis J30.9 ; De pression F32.9 ; Anxiety F41.9 ; Raynauds syndrome I73.00 ; Insomnia G47.00 and GERD (gastroesophageal reflux disease) K21.9 [place] [address] [place] [address] Aug, MONICA (secretory otitis media) H65.90 and Raynauds syndrome I73.00 [facility] [address] [id number] [address] [place] [address] Jul, Acute otitis externa of both ears, unspecified type H60.503 [place] [address] [address] Jun, [place] [address] [address] Jun, Essential hypertension I10 ; Allergic rhinitis J30.9 ; Hypothyroidism E03.9 and Osteoarthritis M19.90 [place] [address] [address] Jun, Routine adult health mainten ance Z00.00 ; Hypothyroidism E03.9 ; Essential hypertension I10 ; Insomnia G47.00 ; Nicotine addiction F17.200 ; Raynauds syndrome I73.00 ; GERD (gastroesophageal reflux disease) K21.9 ; Allergic rhinitis J30.9 ; Anxiety F41.9 ; Depression F32.9 and Schizo affective schizophrenia F25.0 [place] [address] [address] May, Upper respiratory tract infe ction, unspecified type J06.9 [place] [address] [place] [id number] [address] [place] [address] Mar, [facility] [id number] [place] [id number] Mar, [place] [address] [address] Mar, [place] [address] [address] Mar, [facility] [address] [address] Feb, Jaw pain 784.92 and Environm ental and seasonal allergies 477.8 [facility] [address] [id number] [address] [place] [address], [place] [address] Feb, [facility] [address] [id number] [address] [place] [address], [place] [address] Oct, [facility] [address] [id number] [address] [place] [address], [place] [address] Oct, [facility] [address] [id number] [address] [place] [address], [place] [address] Oct, [facility] [address] [id number] [address] [place] [address], [place] [address] Oct, [facility] [address] [id number] [address] [place] [address] Sep, [facility] [address] [id number] [address] [place] [address], [place] [address] Sep, [facility] [address] [id number] [address] [place] [address], [place] [address] Jul, [facility] [address] [id number] [address] [place] [address], [place] [address] Jul, [facility] [address] [id number] [address] [place] [address] Jul, [facility] [address] [id number] [address] [place] [address] Jul, [facility] [address] [id number] [address] [place] [address] Jul, [facility] [address] [id number] [address] [place] [address], [place] [address] Jul, [facility] [address] [id number] [address] [place] [address] Jul, [facility] [address] [id number] [address] [place] [address], [place] [address] Jun, [facility] [address] [id number] [address] [place] [address], [place] [address] 31 Jun, 2014 [facility] [address] [id number] [address] [place] [address], [place] [address] 22 Jun, 2014 [facility] [address] [id number] [address] [place] [address], [place] [address] 18 Jun, 2014 [facility] [address] [id number] [address] [place] [address], [place] [address] 17 Jun, 2014 [facility] [address] [id number] [address] [place] [address], [place] [address] 17 Jun, 2014 [facility] [address] [id number] [address] [place] [address], [place] [address] 16 Jun, 2014 [facility] [address] [id number] [address] [place] [address], [place] [address] 16 Jun, 2014 [facility] [address] [id number] [address] [place] [address], [place] [address] 30 Apr, 2014 [facility] [address] [id number] [address] [place] [address], [place] [address] 30 Apr, 2014 [facility] [address] [id number] [address] [place] [address], [place] [address] 17 Mar, 2014 [facility] [address] [id number] [address] [place] [address], [place] [address] 17 Mar, 2014 [facility] [address] [id number] [address] [place] [address], [place] [address] 03 Mar, 2014 [facility] [address] [id number] [address] [place] [address], [place] [address] 03 Mar, 2014 [facility] [address] [id number] [address] [place] [address], [place] [address] 16 Jan, 2014 [facility] [address] [id number] [address] [place] [address], [place] [address] 16 Jan, 2014 [facility] [address] [id number] [address] [place] [address], [place] [address] Oct, [facility] [address] [id number] [address] [place] [address], [place] [address] Oct, [facility] [address] [id number] [address] [place] [address], [place] [address] Sep, [facility] [address] [id number] [address] [place] [address], [place] [address] Sep, [facility] [address] [id number] [address] [place] [address], [place] [address] Sep, [facility] [address] [id number] [address] [place] [address], [place] [address] Sep, [facility] [address] [id number] [address] [place] [address], [place] [address] Sep, [facility] [address] [id number] [address] [place] [address], [place] [address] Sep, [facility] [address] [id number] [address] [place] [address], [place] [address] Aug, [facility] [address] [id number] [address] [place] [address], [place] [address] Aug, [facility] [address] [id number] [address] [place] [address], [place] [address] Jul, [facility] [address] [id number] [address] [place] [address], [place] [address] Jul, [facility] [address] [id number] [address] [place] [id number] Jul, [facility] [address] [id number] [address] [place] [address], [place] [id number] Jul, [facility] [address] [id number] [address] [place] [address], [place] [address] Jun, [facility] [address] [id number] [address] [place] [address], [place] [id number] Jun, [facility] [address] [id number] [address] [place] [id number] May, [facility] [address] [id number] [address] [place] [address], [place] [address] May, [facility] [address] [id number] [address] [place] [address], [place] [id number] Apr, [facility] [address] [id number] [address] [place] [address], [place] [id number] Apr, [facility] [address] [id number] [address] [place] [address], [place] [address] Apr, [facility] [address] [id number] [address] [place] [address], [place] [address] Apr, [facility] [address] [id number] [address] [place] [address], [place] [id number] Apr, [facility] [address] [id number] [address] [place] [address], [place] [address] Apr, [facility] [address] [id number] [address] [place] [address], [place] [id number] Mar, [facility] [address] [id number] [address] [place] [address], [place] [address] Mar, [facility] [address] [id number] [address] [place] [address], [place] [address] Mar, [facility] [address] [id number] [address] [place] [address], [place] [address] Mar, [facility] [address] [id number] [address] [place] [id number] Mar, [facility] [address] [id number] [address] [place] [address], [place] [address] Feb, [facility] [address] [id number] [address] [place] [address], [place] [address] Feb, [facility] [address] [id number] [address] [place] [id number] Feb, [facility] [address] [id number] [facility] [place] [address] 08 Feb, 2013 [facility] [address] [id number] [facility] [place] [address] 18 Jan, 2013 [facility] [facility] [address] [id number] [facility] [place] [address] 17 Jan, 2012 [facility] [address] [id number] [address] [place] [address], [place] [id number] 16 Jan, 2013 [facility] [address] [id number] [address] [place] [address], [place] [address] Jan, [facility] [address] [id number] [address] [place] [address], [place] [address] Jan, [facility] [address] [id number] [address] [place] [address], [place] [address] Jan, [facility] [address] [id number] [address] [place] [address], [place] [address] 27 Dec, 2012 [facility] [address] [id number] [address] [place] [address], [place] [id number] 25 Dec, 2012 [facility] [address] [id number] [address] [place] [address], [place] [address] Dec, [facility] [address] [id number] [address] [place] [address], [place] [address] 14 Dec, 2012 [facility] [address] [id number] [address] [place] [address], [place] [id number] 13 Dec, 2012 [facility] [address] [id number] [address] [place] [address], [place] [address] 12 Dec, 2012 [facility] [address] [id number] [address] [place] [address], [place] [address] 11 Dec, 2012 [facility] [address] [id number] [address] [place] [address], [place] [id number] 07 Dec, 2012 [facility] [address] [id number] [address] [place] [address] [address] Dec, [facility] [address] [id number] [address] [place] [address], [place] [address] Dec, [facility] [address] [id number] [address] [place] [address], [place] [address] November, [facility] [address] [id number] [address] [place] [address], [place] [address] November, [facility] [address] [id number] [address] [place] [address], [place] [address] November, [facility] [address] [id number] [address] [place] [address], [place] [address] November, [facility] [address] [id number] [address] [place] [address], [place] [address] November, [facility] [address] [id number] [address] [place] [address], [place] [address] Oct, [facility] [address] [id number] [address] [place] [address], [place] [address] Oct, [facility] [address] [id number] [address] [place] [address], [place] [address] Oct, [facility] [address] [id number] [address] [place] [address], [place] [address] Oct, [facility] [address] [id number] [address] [place] [address], [place] [address] Oct, [facility] [address] [id number] [address] [place] [address], [place] [address] Sep, [facility] [address] [id number] [address] [place] [address], [place] [address] Sep, [facility] [address] [id number] [address] [place] [address], [place] [address] Sep, [facility] [address] [id number] [address] [place] [address], [place] [address] Sep, [facility] [address] [id number] [address] [place] [address], [place] [address] 26 Aug, 2012 [facility] [address] [id number] [address] [place] [address], [place] [address] 18 Aug, 2012 [facility] [address] [id number] [address] [place] [address], [place] [id number] 18 Aug, 2012 [facility] [address] [id number] [address] [place] [address], [place] [id number] 15 Aug, 2012 [facility] [address] [id number] [address] [place] [address], [place] [address] 17 Jun, 2012 [facility] [address] [id number] [address] [place] [address], [place] [address] Jun, [facility] [address] [id number] [address] [place] [address], [place] [address] Jun, [facility] [address] [id number] [address] [place] [address], [place] [address] Jun, [facility] [address] [id number] [address] [place] [address], [place] [address] Jun, [facility] [address] [id number] [address] [place] [address], [place] [address] Jun, [facility] [address] [id number] [address] [place] [address], [place] [address] Jun, [facility] [address] [id number] [address] [place] [address], [place] [address] Jun, [facility] [address] [id number] [address] [place] [address], [place] [address] Jun, [facility] [address] [id number] [address] [place] [address], [place] [address] Jun, [facility] [address] [id number] [address] [place] [address], [place] [address] May, [facility] [address] [id number] [address] [place] [address], [place] [address] May, [facility] [address] [id number] [address] [place] [address], [place] [address] 27 May, 2012 [facility] [address] [id number] [address] [place] [address], [place] [address] May, [facility] [address] [id number] [address] [place] [address], [place] [address] May, [facility] [address] [id number] [address] [place] [address], [place] [address] May, [facility] [address] [id number] [address] [place] [address], [place] [id number] 16 May, 2012 [facility] [address] [id number] [address] [place] [address], [place] [address] May, [facility] [address] [id number] [address] [place] [address], [place] [address] May, [facility] [address] [id number] [address] [place] [address], [place] [address] 30 Apr, 2012 [facility] [address] [id number] [address] [place] [address], [place] [address] 30 Apr, 2012 [facility] [address] [id number] [address] [place] [address] Apr, [facility] [address] [id number] [address] [place] [id number] Apr, [facility] [address] [id number] [address] [place] [id number] 09 Apr, 2012 [facility] [address] [id number] [address] [place] [address], [place] [id number] 18 Sep2011 [facility] [address] [id number] [address] [place] [id number] 17 Sep2011 [facility] [address] [id number] [address] [place] [id number] 07 Sep2011 [facility] [address] [id number] [address] [place] [id number] Feb, [facility] [address] [id number] [address] [place] [address], [place] [address] Feb, [facility] [address] [id number] [address] [place] [address], [place] [address] Feb, [facility] [address] [id number] [address] [place] [address], [place] [address] Feb, [facility] [address] [id number] [address] [place] [address], [place] [address] Jan, [facility] [address] [id number] [address] [place] [address], [place] [address] Jan, [facility] [address] [id number] [address] [place] [address], [place] [address] Jan, [facility] [address] [id number] [address] [place] [address], [place] [address] Jan, [facility] [address] [id number] [address] [place] [address], [place] [address] Jan, [facility] [address] [id number] [address] [place] [address], [place] [address] Jan, [facility] [address] [id number] [address] [place] [address], [place] [address] Dec, [facility] [address] [id number] [address] [place] [address], [place] [address] Dec, [facility] [address] [id number] [address] [place] [address], [place] [address] Dec, [facility] [address] [id number] [address] [place] [address], [place] [address] November, [facility] [address] [id number] [address] [place] [address], [place] [address] November, [facility] [address] [id number] [address] [place] [address], [place] [address] November, [facility] [address] [id number] [address] [place] [address], [place] [address] November, [facility] [address] [id number] [address] [place] [address], [place] [address] Oct, [facility] [address] [id number] [address] [place] [address], [place] [id number] Oct, [facility] [address] [id number] [address] [place] [address], [place] [address] Oct, [facility] [address] [id number] [address] [place] [address], [place] [address] Sep, [facility] [address] [id number] [address] [place] [address], [place] [address] Sep, [facility] [address] [id number] [address] [place] [address], [place] [address] Aug, [facility] [address] [id number] [address] [place] [address], [place] [address] Aug, [facility] [address] [id number] [address] [place] [address], [place] [address] Aug, [facility] [address] [id number] [address] [place] [address], [place] [address] Aug, [facility] [address] [id number] [address] [place] [address], [place] [address] Jul, [facility] [address] [id number] [address] [place] [address], [place] [address] Jul, [facility] [address] [id number] [address] [place] [address], [place] [address] Jul, [facility] [address] [id number] [address] [place] [address], [place] [address] Jul, [facility] [address] [id number] [address] [place] [address], [place] [address] Jul, [facility] [address] [id number] [address] [place] [address], [place] [id number] Jul, [facility] [address] [id number] [address] [place] [address], [place] [address] Jul, [facility] [address] [id number] [address] [place] [address], [place] [address] Jul, [facility] [address] [id number] [address] [place] [address], [place] [address] Jun, [facility] [address] [id number] [address] [place] [address], [place] [address] Jun, [facility] [address] [id number] [address] [place] [address], [place] [address] Jun, [facility] [address] [id number] [address] [place] [address], [place] [address] Jun, [facility] [address] [id number] [address] [place] [address], [place] [address] Jun, [facility] [address] [id number] [address] [place] [address], [place] [address] May, [facility] [address] [id number] [address] [place] [address], [place] [address] May, [facility] [address] [id number] [address] [place] [address], [place] [address] May, [facility] [address] [id number] [address] [place] [address] May, [facility] [address] [id number] [address] [place] [address] May, [facility] [address] [id number] [address] [place] [address], [place] [address] May, [facility] [address] [id number] [address] [place] [address], [place] [address] Apr, [facility] [address] [id number] [address] [place] [address], [place] [address] Apr, [facility] [address] [id number] [address] [place] [id number] Apr, [facility] [address] [id number] [address] [place] [id number] Feb, [facility] [address] [id number] [address] [place] [id number] Feb, [facility] [address] [id number] [address] [place] [id number] Oct, [facility] [address] [id number] [address] [place] [id number] Jul, [facility] [address] [id number] [address] [place] [id number] Jul, [facility] [address] [id number] [address] [place] [id number] Jun, [facility] [address] [id number] [address] [place] [id number] May, [facility] [address] [id number] [address] [place] [id number] May, [facility] [address] [id number] [address] [place] [id number] May, [facility] [address] [id number] [address] [place] [id number] Apr, [facility] [address] [id number] [address] [place] [id number] Jan, [facility] [address] [id number] [address] [place] [id number] November, IMMUNIZATIONS No Known Immunizations SOCIAL HISTORY Never Assessed REASON FOR VISIT PLAN OF CARE VITAL SIGNS MEDICATIONS Unknown [...]
--- OUTSIDE RECORDS SUMMARY | 2020-01-31 09:36 | XMS REPORT ---
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 Name Role Phone PAUL Sanches Unavailable PROBLEMS Type Condition ICD9-CM Code JHM54-SC Code Onset Dates Condition S tatus SNOMED Code Problem Osteoarthritis M19.90 Active 01686 5006 Problem Bilateral carotid artery disease I77.9 Active 650319530 Problem Stage 3 chronic kidney disease N18.3 Active 274833351 Problem Essential hypertension I10 Active 66568384 Problem Acquired hypothyroidism E03.9 Active 579345684 Problem GERD (gastroesophageal reflux disease) K21.9 Active 722646679 Problem Seasonal allergic rhinitis due to pollen J30.1 Active 08334915 Problem Schizo affective schizophrenia F25.0 Active 404216637 Problem Fibromyalgia M79.7 Active 2640372 05 Problem Vitamin D deficiency E55.9 Active 17763544 Problem Iron deficiency anemia, unspecified iron deficiency an emia type D50.9 Active 45286793 Problem Secondary hyperparathyroidism, not elsewhere classified E21.1 Active 99697392 ALLERGIES No Information ENCOUNTERS Encounter Location Date Diagnosis [facility] [address] [place] [address] Jan, [address] [id number] [address] Dec, Osteoarthritis M19.90 [facility] [address] [facility] [id number] [address] [place] [address] November, Encounter for medication mon itoring Z51.[address] [id number] [address] November, Encounter for medication mon itoring Z51.81 and Osteoarthritis M19.90 [facility] [address] [place] [address] November, Seasonal allergic rhinitis d ue to pollen J30.1 [facility] [address] [address] 14 Oct, 2019 Lumbar radiculopathy M54.16 ; Fibromyalgia M79.7 ; Essential hypertension I10 and GERD (gastroesophageal reflux disease) K21.9 [facility] [address] [place] [address] 03 Oct, 2019 Osteoarthritis M19.90 [facility] [address] [place] [id number] [address] [place] [address] Sep, [facility] [address] [address] Aug, Osteoarthritis M19.90 [facility] [address] [place] [address] Jul, Osteoarthritis M19.90 [facility] [address] [place] [address] Jun, Osteoarthritis M19.90 [facility] [id number] [place] [address] Jun, Herpes zoster without compli cation B02.9 [facility] [address] [place] [address] May, Osteoarthritis M19.90 [facility] [address] [id number] [address] [place] [address] May, [facility] [address] [id number] [place] [address] Apr, [facility] [address] [place] [address] 18 Mar, 2019 Osteoarthritis M19.90 [facility] [address] [place] [address] Mar, [facility] [address] [place] [address] [place] [address] Feb, Lumbago with sciatica, left side M54.42 ; Lumbago with sciatica, right side M54.41 and Other chronic pain G89.29 [facility] [address] [facility] [id number] [address] [place] [address] Feb, [facility] Z[facility].00 ; Schizo affective schizophrenia F25.0 ; Essential hypertension I10 ; GERD (gastroesophageal reflux disease) K21.9 ; Secondary hyperparathyroidism, not elsewhere classified E21.1 ; Idiopathic peripheral neuropathy G60.9 ; Stage 3 chronic kidney disease N18.3 ; Acquired hypothyroidism E03.9 ; Bilateral carotid artery disease I77.9 and Hypothyroidism E03.9 [facility] [address] [facility] [id number] [address] [place] [address] Feb, Osteoarthritis M19.90 [place] [address] [place] [id number] [address] [place] [address] Jan, Osteoarthritis M19.90 [facility] [address] [id number] [address] [place] [address] Jan, Osteoarthritis M19.90 [facility] [address] [id number] [address] [place] [address] Dec, Acquired hypothyroidism E03. 9 [facility] [address] [facility] [id number] [address] [place] [address] Dec, Fibromyalgia M79.7 ; Hypothy roidism E03.9 ; Essential hypertension I10 and Sensory loss R20.[address] [address] November, Osteoarthritis M19.90 [facility] [address] [facility] [id number] [address] [place] [address] Oct, Osteoarthritis M19.90 [facility] [address] [facility] [id number] [address] [place] [address] Oct, Sore throat J02.9 and Acute nasopharyngitis J00 [facility] [address] [facility] [id number] [address] [place] [address] Sep, Osteoarthritis M19.90 [facility] [address] [address] [id number] [address] [place] [address] Sep, Acute non-recurrent maxillar y sinusitis J01.00 [facility] [address] [facility] [id number] [address] [place] [address] Aug, Acute non-recurrent pansinus itis J01.40 [facility] [address] [place] [id number] [address] [place] [address] Jul, Osteoarthritis M19.90 [facility] [address] [id number] [place] [address] Jul, [facility] [address] [address] Apr, Osteoarthritis M19.90 [facility] [address] [address] Apr, Fibromyalgia M79.7 ; Essenti al hypertension I10 ; Encounter for immunization Z23 ; Stage 3 chronic kidney disease N18.3 and Depression F32.9 [facility] [address] [address] Dec, Fibromyalgia M79.7 ; Osteoar thritis M19.90 and Encounter for medication management Z79.899 [facility] [address] [address] November, Nausea and vomiting, intract ability of vomiting not specified, unspecified vomiting type R11.2 and Dizziness R42 [place] [address] [address] November, Fibromyalgia M79.7 [facility] [address] [address] November, Medicare annual wellness vis it, initial Z00.00 ; Anxiety F41.9 ; Depression F32.9 ; Stage 3 chronic kidney disease N18.3 ; Fibromyalgia M79.7 ; Essential hypertension I10 ; Secondary hyperparathyroidism, not elsewhere classified E21.1 ; Osteoarthritis M19.90 ; Hypothyroidism E03.9 and Encounter for immunization Z23 [place] [address] [address] Oct, [place] [address] [address] Oct, Sebaceous cyst L72.3 [place] [address] [address] Sep, Low back pain, unspecified b ack pain laterality, unspecified chronicity, with sciatica presence unspecified M54.5 and Secondary hyperparathyroidism, not elsewhere classified E21.1 [place] [address] [address] Sep, Fibromyalgia M79.7 [place] [address] [address] Sep, Fibromyalgia M79.7 ; Plantar fasciitis, bilateral M72.2 ; Essential hypertension I10 ; Depression F32.9 and Epidermoid cyst L72.0 [place] [address] [address] Jul, [place] [address] [address] Jul, Fibromyalgia M79.7 ; Iron de ficiency anemia, unspecified iron deficiency anemia type D50.9 and Acute nasopharyngitis J00 [facility] [address] [address] Jun, Sore throat J02.9 and Acute serous otitis media of left ear, recurrence not specified H65.02 [place] [address] [address] Jun, Hypothyroidism E03.9 [place] [address] [address] Jun, [place] [address] [address] Jun, Hypothyroidism E03.9 ; Essen tial hypertension I10 and Osteoarthritis M19.90 [place] [address] [address] May, [place] [address] [address] May, [place] [address] [address] Feb, [place] [address] [address] Feb, Leonela-menopausal N95.1 and To bacco use Z72.0 [place] [address] [address] Jan, [place] [address] [address] Jan, Osteoarthritis M19.90 ; Bila teral carotid artery disease I77.9 ; Raynauds syndrome I73.00 ; Essential hypertension I10 ; Allergic rhinitis J30.9 ; Stage 3 chronic kidney disease N18.3 ; Fibromyalgia M79.7 ; Hypothyroidism E03.9 ; GERD (gastroesophageal reflux disease) K21.9 and Vitamin D deficiency E55.9 [place] [address] [address] Dec, Raynauds syndrome I73.00 ; P lantar fascial fibromatosis M72.2 ; Osteoarthritis M19.90 and Fibromyalgia M79.7 [place] [address] [address] Dec, [place] [address] [address] Dec, [place] [address] [id number] [address] [place] [address] Oct, Function kidney decreased N2 8.9 [facility] [address] [id number] [address] [place] [id number] Oct, Dental examination Z01.20 [facility] [address] [id number] [address] [place] [address] 18 Oct, 2016 Essential hypertension I10 a nd Function kidney decreased N28.9 [facility] [address] [id number] [address] [place] [id number] 04 Oct, 2016 Dental examination Z01.20 [facility] [address] [id number] [address] [place] [address] Oct, [facility] [address] [id number] [address] [place] [address] 24 Sep, 2016 Other specified disorders in volving the immune mechanism D89.89 and Schizo affective schizophrenia F25.0 [facility] [address] [id number] [address] [place] [address] 21 Sep, 2016 Schizo affective schizophren ia F25.0 [facility] [address] [id number] [address] [place] [address] 16 Sep, 2016 Eustachian tube dysfunction, bilateral H69.83 [facility] [address] [id number] [address] [place] [address] 15 Sep, 2016 [facility] [address] [id number] [address] [place] [address] 14 Sep, 2016 [facility] [address] [id number] [address] [place] [address] 14 Sep, 2016 [facility] [address] [facility] [id number] [address] [place] [address] 13 Sep, 2016 Eustachian tube dysfunction, bilateral H69.83 [facility] [address] [facility] [id number] [address] [place] [address] 09 Sep, 2016 Allergic rhinitis J30.9 ; Es sential hypertension I10 ; Hypothyroidism E03.9 and Schizo affective schizophrenia F25.0 [facility] [address] [place] [address] Jul, Eustachian tube dysfunction, bilateral H69.83 and Visit for TB skin test Z11.1 [facility] [address] [facility] [id number] [address] [place] [address] Jul, Subacute pansinusitis J01.40 [facility] [address] [place] [id number] [address] [place] [address] Jun, Schizo affective schizophren ia F25.0 ; Depression F32.9 ; Allergic rhinitis J30.9 ; Raynauds syndrome I73.00 ; Essential hypertension I10 ; Slow transit constipation K59.01 ; GERD (gastroesophageal reflux disease) K21.9 ; Hypothyroidism E03.9 ; Nicotine addiction F17.200 ; Other viral agents as the cause of diseases classified elsewhere B97.89 ; Acute upper respiratory infection, unspecified J06.9 and Osteoarthritis M19.90 [facility] [address] [place] [id number] [address] [place] [address] Jun, Allergic rhinitis J30.9 and GERD (gastroesophageal reflux disease) K21.9 [facility] [address] [place] [id number] [address] [place] [address] May, [place] [address] [place] [id number] [address] [place] [address] Mar, Schizo affective schizophren ia F25.0 [facility] [address] [place] [id number] [place] [address] Mar, Schizo affective schizophren ia F25.0 [place] [address] [place] [id number] [place] [address] 15 Mar, 2016 Schizo affective schizophren ia F25.0 [place] [address] [place] [id number] [address] [place] [address] 06 Mar, 2016 Acute non-recurrent maxillar y sinusitis J01.00 [place] [address] [address] Feb, Schizo affective schizophren ia F25.0 [place] [address] [address] Feb, Contact dermatitis and eczem a L25.9 [place] [address] [address] Jan, [place] [address] [address] Jan, Schizo affective schizophren ia F25.0 ; Slow transit constipation K59.01 ; Essential hypertension I10 ; GERD (gastroesophageal reflux disease) K21.9 ; Hypothyroidism E03.9 ; Osteoarthritis M19.90 ; Low back pain, unspecified back pain laterality, unspecified chronicity, with sciatica presence unspecified M54.5 and Bilateral carotid artery disease I77.9 [place] [address] [address] Oct, [place] [address] [address] Sep, Hypothyroid E03.9 [place] [address] [address] Sep, Schizo affective schizophren ia F25.0 ; Depression F32.9 ; Anxiety F41.9 ; Allergic rhinitis J30.9 ; Raynauds syndrome I73.00 ; Insomnia G47.00 ; Essential hypertension I10 ; GERD (gastroesophageal reflux disease) K21.9 ; Hypothyroidism E03.9 and Vitamin D deficiency E55.9 [place] [address] [address] Sep, [place] [address] [address] Sep, [place] [address] [address] Aug, Allergic rhinitis J30.9 ; De pression F32.9 ; Anxiety F41.9 ; Raynauds syndrome I73.00 ; Insomnia G47.00 and GERD (gastroesophageal reflux disease) K21.9 [facility] [address] [place] [address] Aug, MONICA (secretory otitis media) H65.90 and Raynauds syndrome I73.00 [facility] [address] [place] [id number] [address] [place] [address] Jul, Acute otitis externa of both ears, unspecified type H60.503 [place] [address] [address] Jun, [place] [address] [address] Jun, Essential hypertension I10 ; Allergic rhinitis J30.9 ; Hypothyroidism E03.9 and Osteoarthritis M19.90 [place] [address] [place] [id number] [address] [place] [address] Jun, Routine adult health mainten ance Z00.00 ; Hypothyroidism E03.9 ; Essential hypertension I10 ; Insomnia G47.00 ; Nicotine addiction F17.200 ; Raynauds syndrome I73.00 ; GERD (gastroesophageal reflux disease) K21.9 ; Allergic rhinitis J30.9 ; Anxiety F41.9 ; Depression F32.9 and Schizo affective schizophrenia F25.0 [place] [address] [place] [id number] [place] [address] May, Upper respiratory tract infe ction, unspecified type J06.9 [place] [address] [place] [id number] [address] [place] [address] Mar, [facility] [address] [id number] [id number] Mar, [place] [address] [place] [id number] [address] [place] [address] Mar, [facility] [address] [id number] [address] [place] [address], [place] [address] Mar, [facility] [address] [id number] [address] [place] [address] Feb, Jaw pain 784.92 and Environm ental and seasonal allergies 477.8 [facility] [address] [id number] [address] [place] [address], [place] [address] Feb, [facility] [address] [id number] [address] [place] [address] Oct, [facility] [address] [id number] [address] [place] [address], [place] [address] Oct, [facility] [address] [id number] [address] [place] [address] Oct, [facility] [address] [id number] [address] [place] [address], [place] [address] Oct, [facility] [address] [id number] [address] [place] [address] Sep, [facility] [address] [id number] [address] [place] [address], [place] [address] Sep, [facility] [address] [id number] [address] [place] [address], [place] [address] Jul, [facility] [address] [id number] [address] [place] [address] Jul, [facility] [address] [id number] [address] [place] [address] Jul, [facility] [address] [id number] [address] [place] [address], [place] [address] Jul, [facility] [address] [id number] [address] [place] [address] Jul, [facility] [address] [id number] [address] [place] [address] Jul, [facility] [address] [id number] [address] [place] [address], [place] [address] 06 Jul, 2014 [facility] [address] [id number] [address] [place] [address], [place] [address] 31 Jun, 2014 [facility] [address] [id number] [address] [place] [address], [place] [address] 31 Jun, 2014 [facility] [address] [id number] [address] [place] [address], [place] [address] 22 Jun, 2014 [facility] [address] [id number] [address] [place] [address], [place] [address] 18 Jun, 2014 [facility] [address] [id number] [address] [place] [address], [place] [address] 17 Jun, 2014 [facility] [address] [id number] [address] [place] [address], [place] [address] 17 Jun, 2014 [facility] [address] [id number] [address] [place] [address], [place] [address] 16 Jun, 2014 [facility] [address] [id number] [address] [place] [address], [place] [address] 16 Jun, 2014 [facility] [address] [id number] [address] [place] [address], [place] [address] 30 Apr, 2014 [facility] [address] [id number] [address] [place] [address], [place] [address] 30 Apr, 2014 [facility] [address] [id number] [address] [place] [address], [place] [address] 17 Mar, 2014 [facility] [address] [id number] [address] [place] [address], [place] [address] 17 Mar, 2014 [facility] [address] [id number] [address] [place] [address], [place] [address] 03 Mar, 2014 [facility] [address] [id number] [address] [place] [address], [place] [address] 03 Mar, 2014 [facility] [address] [id number] [address] [place] [address], [place] [address] Jan, [facility] [address] [id number] [address] [place] [address], [place] [address] Jan, [facility] [address] [id number] [address] [place] [address], [place] [address] Oct, [facility] [address] [id number] [address] [place] [address], [place] [address] Oct, [facility] [address] [id number] [address] [place] [address], [place] [address] Sep, [facility] [address] [id number] [address] [place] [address], [place] [address] Sep, [facility] [address] [id number] [address] [place] [address], [place] [address] Sep, [facility] [address] [id number] [address] [place] [address], [place] [address] Sep, [facility] [address] [id number] [address] [place] [address], [place] [address] Sep, [facility] [address] [id number] [address] [place] [address], [place] [address] Sep, [facility] [address] [id number] [address] [place] [address], [place] [address] Aug, [facility] [address] [id number] [address] [place] [address], [place] [address] Aug, [facility] [address] [id number] [address] [place] [address], [place] [address] Jul, [facility] [address] [id number] [address] [place] [address], [place] [address] Jul, [facility] [address] [id number] [address] [place] [address], [place] [address] Jul, [facility] [place] [place] [address] [id number] [address] [place] [address], [place] [address] Jul, [facility] [address] [id number] [address] [place] [phone] Jun, [facility] [address] [id number] [address] [place] [address], [place] [address] Jun, [facility] [address] [id number] [address] [place] [id number] May, [facility] [address] [id number] [address] [place] [address], [place] [address] May, [facility] [address] [id number] [address] [place] [address], [place] [address] Apr, [facility] [address] [id number] [address] [place] [address], [place] [address] Apr, [facility] [address] [id number] [address] [place] [address], [place] [address] Apr, [facility] [address] [id number] [address] [place] [address] Apr, [facility] [address] [id number] [address] [place] [address], [place] [address] Apr, [facility] [address] [id number] [address] [place] [phone] Apr, [facility] [address] [id number] [address] [place] [id number] 24 Mar, 2013 [facility] [address] [id number] [address] [place] [address], [place] [address] Mar, [facility] [address] [id number] [address] [place] [id number] 09 Mar, 2013 [facility] [address] [id number] [address] [place] [id number] 05 Mar, 2013 [facility] [address] [id number] [address] [place] [phone] Mar, [facility] [address] [id number] [address] [place] [id number] Feb, [facility] [address] [id number] [facility] [place] [address] Feb, [facility] [address] [id number] [facility] [place] [address] Feb, [facility] [address] [id number] [address] [place] [address], [place] [address] Feb, [facility] [address] [address] [id number] [address] [place] [address], [place] [address] Jan, [facility] [address] [id number] [address] [place] [address], [place] [address] 17 Jan, 2013 [facility] [address] [id number] [address] [place] [address], [place] [address] 16 Jan, 2013 [facility] [address] [id number] [address] [place] [address], [place] [address] Jan, [facility] [address] [id number] [address] [place] [address], [place] [address] Jan, [facility] [address] [id number] [address] [place] [address], [place] [address] Jan, [facility] [address] [id number] [address] [place] [address], [place] [address] Dec, [facility] [address] [id number] [address] [place] [address], [place] [address] Dec, [facility] [address] [id number] [address] [place] [address], [place] [address] Dec, [facility] [address] [id number] [address] [place] [address], [place] [address] 14 Dec, 2012 [facility] [address] [id number] [address] [place] [address], [place] [address] 13 Dec, 2012 [facility] [address] [id number] [address] [place] [address], [place] [address] 12 Dec, 2012 [facility] [address] [id number] [address] [place] [address], [place] [address] Dec, [facility] [address] [id number] [address] [place] [address], [place] [address] Dec, [facility] [address] [id number] [address] [place] [address], [place] [address] Dec, [facility] [address] [id number] [address] [place] [address], [place] [address] Dec, [facility] [address] [id number] [address] [place] [address], [place] [address] November, [facility] [address] [id number] [address] [place] [address], [place] [address] November, [facility] [address] [id number] [address] [place] [address], [place] [address] November, [facility] [address] [id number] [address] [place] [address], [place] [address] November, [facility] [address] [id number] [address] [place] [address], [place] [address] November, [facility] [address] [id number] [address] [place] [address], [place] [address] Oct, [facility] [address] [id number] [address] [place] [address], [place] [address] Oct, [facility] [address] [id number] [address] [place] [address], [place] [address] Oct, [facility] [address] [id number] [address] [place] [address], [place] [address] Oct, [facility] [address] [id number] [address] [place] [address], [place] [address] Oct, [facility] [address] [id number] [address] [place] [address], [place] [address] Sep, [facility] [address] [id number] [address] [place] [address], [place] [address] Sep, [facility] [address] [id number] [address] [place] [address], [place] [address] 18 Sep, 2012 [facility] [address] [id number] [address] [place] [address], [place] [address] 05 Sep, 2012 [facility] [address] [id number] [address] [place] [address], [place] [address] 26 Aug, 2012 [facility] [address] [id number] [address] [place] [address], [place] [address] 18 Aug, 2012 [facility] [address] [id number] [address] [place] [address], [place] [address] 18 Aug, 2012 [facility] [address] [id number] [address] [place] [address], [place] [address] 15 Aug, 2012 [facility] [address] [id number] [address] [place] [address], [place] [address] 17 Jun, 2012 [facility] [address] [id number] [address] [place] [address], [place] [address] 17 Jun, 2012 [facility] [address] [id number] [address] [place] [address], [place] [address] Jun, [facility] [address] [id number] [address] [place] [address], [place] [address] Jun, [facility] [address] [id number] [address] [place] [address], [place] [address] Jun, [facility] [address] [id number] [address] [place] [address], [place] [address] Jun, [facility] [address] [id number] [address] [place] [address], [place] [address] Jun, [facility] [address] [id number] [address] [place] [address], [place] [address] Jun, [facility] [address] [id number] [address] [place] [address], [place] [address] Jun, [facility] [address] [id number] [address] [place] [address], [place] [address] Jun, [facility] [address] [id number] [address] [place] [address], [place] [address] May, [facility] [address] [id number] [address] [place] [address], [place] [address] May, [facility] [address] [id number] [address] [place] [address], [place] [address] May, [facility] [address] [id number] [address] [place] [address], [place] [address] May, [facility] [address] [id number] [address] [place] [address], [place] [address] May, [facility] [address] [id number] [address] [place] [address], [place] [address] May, [facility] [address] [id number] [address] [place] [address], [place] [address] May, [facility] [address] [id number] [address] [place] [address] May, [facility] [address] [id number] [address] [place] [address], [place] [address] May, [facility] [address] [id number] [address] [place] [address] 30 Apr, 2012 [facility] [address] [id number] [address] [place] [address] 30 Apr, 2012 [facility] [address] [id number] [address] [place] [address] Apr, [facility] [address] [id number] [address] [place] [address] Apr, [facility] [address] [id number] [address] [place] [address] 09 Apr, 2012 [facility] [address] [id number] [address] [place] [address] 18 Mar, 2012 [facility] [address] [id number] [address] [place] [address] 17 Mar, 2012 [facility] [address] [id number] [address] [place] [address], [place] [address] 07 Mar, 2012 [facility] [address] [id number] [address] [place] [address], [place] [address] 27 Feb, 2012 [facility] [address] [id number] [address] [place] [address], [place] [address] 16 Feb, 2012 [facility] [address] [id number] [address] [place] [address], [place] [address] 15 Feb, 2012 [facility] [address] [id number] [address] [place] [address], [place] [address] 14 Feb, 2012 [facility] [address] [id number] [address] [place] [address], [place] [address] Jan, [facility] [address] [id number] [address] [place] [address], [place] [address] Jan, [facility] [address] [id number] [address] [place] [address], [place] [address] Jan, [facility] [address] [id number] [address] [place] [address], [place] [address] Jan, [facility] [address] [id number] [address] [place] [address], [place] [address] Jan, [facility] [address] [id number] [address] [place] [address], [place] [address] Jan, [facility] [address] [id number] [address] [place] [address], [place] [address] Dec, [facility] [address] [id number] [address] [place] [address], [place] [address] 14 Dec, 2011 [facility] [address] [id number] [address] [place] [address], [place] [address] 08 Dec, 2011 [facility] [address] [id number] [address] [place] [address], [place] [address] November, [facility] [address] [id number] [address] [place] [address], [place] [address] November, [facility] [address] [id number] [address] [place] [address], [place] [address] November, [facility] [address] [id number] [address] [place] [address], [place] [address] November, [facility] [address] [id number] [address] [place] [address], [place] [address] Oct, [facility] [address] [id number] [address] [place] [address], [place] [address] Oct, [facility] [address] [id number] [address] [place] [address], [place] [address] Oct, [facility] [address] [id number] [address] [place] [address], [place] [address] Sep, [facility] [address] [id number] [address] [place] [address], [place] [address] Sep, [facility] [address] [id number] [address] [place] [address], [place] [address] Aug, [facility] [address] [id number] [address] [place] [address], [place] [address] Aug, [facility] [address] [id number] [address] [place] [address], [place] [address] Aug, [facility] [address] [id number] [address] [place] [address], [place] [address] Aug, [facility] [address] [id number] [address] [place] [address], [place] [address] Jul, [facility] [address] [id number] [address] [place] [address], [place] [address] Jul, [facility] [address] [id number] [address] [place] [address], [place] [address] Jul, [facility] [address] [id number] [address] [place] [address], [place] [address] Jul, [facility] [address] [id number] [address] [place] [address], [place] [address] Jul, [facility] [address] [id number] [address] [place] [address], [place] [address] Jul, [facility] [address] [id number] [address] [place] [address], [place] [address] Jul, [facility] [address] [id number] [address] [place] [address], [place] [address] Jul, [facility] [address] [id number] [address] [place] [address], [place] [address] Jun, [facility] [address] [id number] [address] [place] [address], [place] [address] Jun, [facility] [address] [id number] [address] [place] [address], [place] [address] Jun, [facility] [address] [id number] [address] [place] [address], [place] [address] Jun, [facility] [address] [id number] [address] [place] [address], [place] [address] Jun, [facility] [address] [id number] [address] [place] [address], [place] [address] May, [facility] [address] [id number] [address] [place] [address], [place] [address] May, [facility] [address] [id number] [address] [place] [address], [place] [address] 17 May, 2011 [facility] [address] [id number] [address] [place] [address], [place] [address] 15 May, 2011 [facility] [address] [id number] [address] [place] [address], [place] [address] May, [facility] [address] [id number] [address] [place] [address], [place] [address] May, [facility] [address] [id number] [address] [place] [address] Apr, [facility] [address] [id number] [address] [place] [address] Apr, [facility] [address] [id number] [address] [place] [address] Apr, [facility] [address] [id number] [address] [place] [address] Feb, [facility] [address] [id number] [address] [place] [address] Feb, [facility] [address] [id number] [address] [place] [address] Oct, [facility] [address] [id number] [address] [place] [address] Jul, [facility] [address] [id number] [address] [place] [address] Jul, [facility] [address] [id number] [address] [place] [address] Jun, [facility] [address] [id number] [address] [place] [address] May, [facility] [address] [id number] [address] [place] [address] May, [facility] [address] [id number] [address] [place] [address] May, [facility] [address] [id number] [address] [place] [address] Apr, [facility] [address] [id number] [address] [place] [address] Jan, [facility] [address] [id number] [address] [place] [address] November, IMMUNIZATIONS No Known Immunizations SOCIAL HISTORY [...]
[2020-01-31 09:37] LABS: CARBON DIOXIDE 25 MMOL/L (21-32)
--- OUTSIDE RECORDS SUMMARY | 2020-01-31 09:37 | XMS REPORT ---
Author Author Ivet Sanches [facility] Address [address] [place] [address] Care Team Providers Care Safety Net Maker Name Role Phone PAUL Sanches Unavailable PROBLEMS Type Condition ICD9-CM Code HHH71-BT Code Onset Dates Condition S tatus SNOMED Code Problem Osteoarthritis M19.90 Active 97729 5006 Problem Bilateral carotid artery disease I77.9 Active 112631565 Problem Stage 3 chronic kidney disease N18.3 Active 560083104 Problem Essential hypertension I10 Active 76739058 Problem Acquired hypothyroidism E03.9 Active 464294704 Problem GERD (gastroesophageal reflux disease) K21.9 Active 074010412 Problem Seasonal allergic rhinitis due to pollen J30.1 Active 73268520 Problem Schizo affective schizophrenia F25.0 Active 580256490 Problem Fibromyalgia M79.7 Active 8749737 05 Problem Vitamin D deficiency E55.9 Active 57956230 Problem Iron deficiency anemia, unspecified iron deficiency an emia type D50.9 Active 68417511 Problem Secondary hyperparathyroidism, not elsewhere classified E21.1 Active 43736504 ALLERGIES No Information ENCOUNTERS Encounter Location Date Diagnosis [address] [id number] [address] Dec, Osteoarthritis M19.90 [facility] [address] [facility] [id number] [address] [place] [address] November, Encounter for medication mon itoring Z51.[id number] [place] [address] November, Encounter for medication mon itoring Z51.81 and Osteoarthritis M19.90 [facility] [address] [facility] [id number] [address] [place] [address] November, Seasonal allergic rhinitis d ue to pollen J30.1 [facility] [address] [id number] [address] [place] [address] 14 Oct, 2019 Lumbar radiculopathy M54.16 ; Fibromyalgia M79.7 ; Essential hypertension I10 and GERD (gastroesophageal reflux disease) K21.9 [facility] [address] [id number] [address] [place] [address] 03 Oct, 2019 Osteoarthritis M19.90 [facility] [address] [facility] [id number] [address] [place] [address] Sep, [facility] [address] [facility] [id number] [address] [place] [address] Aug, Osteoarthritis M19.90 [facility] [address] [facility] [id number] [address] [place] [address] Jul, Osteoarthritis M19.90 [facility] [address] [facility] [id number] [address] [place] [address] Jun, Osteoarthritis M19.90 [facility] [address] [facility] [id number] [address] [place] [phone] Jun, Herpes zoster without compli cation B02.9 [facility] [address] [facility] [id number] [address] [place] [phone] May, Osteoarthritis M19.90 [facility] [address] [facility] [id number] [address] [place] [phone] May, [facility] [address] [facility] [id number] [address] [place] [phone] Apr, [facility] [address] [facility] [id number] [address] [place] [address] Mar, Osteoarthritis M19.90 [facility] [address] [facility] [id number] [address] [place] [address] Mar, [facility] [address] [facility] [id number] [address] [place] [address] Feb, Lumbago with sciatica, left side M54.42 ; Lumbago with sciatica, right side M54.41 and Other chronic pain G89.29 [facility] [address] [facility] [id number] [address] [place] [address] Feb, Encounter for Medicare jesus costello wellness exam Z00.00 ; Schizo affective schizophrenia F25.0 ; Essential hypertension I10 ; GERD (gastroesophageal reflux disease) K21.9 ; Secondary hyperparathyroidism, not elsewhere classified E21.1 ; Idiopathic peripheral neuropathy G60.9 ; Stage 3 chronic kidney disease N18.3 ; Acquired hypothyroidism E03.9 ; Bilateral carotid artery disease I77.9 and Hypothyroidism E03.9 [facility] [address] [facility] [id number] [address] [place] [address] Feb, Osteoarthritis M19.90 [facility] [address] [facility] [id number] [address] [place] [id number] Jan, Osteoarthritis M19.90 [facility] [address] [place] [id number] [address] [place] [address] Jan, Osteoarthritis M19.90 [facility] [address] [facility] [id number] [address] [place] [address] Dec, Acquired hypothyroidism E03. 9 [facility] [address] [facility] [id number] [address] [place] [id number] Dec, Fibromyalgia M79.7 ; Hypothy roidism E03.9 ; Essential hypertension I10 and Sensory loss R20.[id number] [place] [address] November, Osteoarthritis M19.90 [facility] [address] [facility] [id number] [address] [place] [address] Oct, Osteoarthritis M19.90 [facility] [address] [facility] [id number] [address] [place] [phone] Oct, Sore throat J02.9 and Acute nasopharyngitis J00 [facility] [address] [facility] [id number] [address] [place] [address] Sep, Osteoarthritis M19.90 [facility] [address] [place] [id number] [address] [place] [address] Sep, Acute non-recurrent maxillar y sinusitis J01.00 [facility] [address] [place] [id number] [address] [place] [address] Aug, Acute non-recurrent pansinus itis J01.40 [place] [address] [place] [id number] [address] [place] [address] Jul, Osteoarthritis M19.90 [place] [address] [address] Jul, [place] [address] [address] Apr, Osteoarthritis M19.90 [place] [address] [address] Apr, Fibromyalgia M79.7 ; Essenti al hypertension I10 ; Encounter for immunization Z23 ; Stage 3 chronic kidney disease N18.3 and Depression F32.9 [place] [address] [address] Dec, Fibromyalgia M79.7 ; Osteoar thritis M19.90 and Encounter for medication management Z79.899 [facility] [address] [address] November, Nausea and vomiting, intract ability of vomiting not specified, unspecified vomiting type R11.2 and Dizziness R42 [facility] [address] [place] [id number] [address] [place] [address] November, Fibromyalgia M79.7 [place] [address] [address] November, Medicare annual wellness vis it, initial Z00.00 ; Anxiety F41.9 ; Depression F32.9 ; Stage 3 chronic kidney disease N18.3 ; Fibromyalgia M79.7 ; Essential hypertension I10 ; Secondary hyperparathyroidism, not elsewhere classified E21.1 ; Osteoarthritis M19.90 ; Hypothyroidism E03.9 and Encounter for immunization Z23 [place] [address] [address] Oct, [place] [address] [address] Oct, Sebaceous cyst L72.3 [place] [address] [address] Sep, Low back pain, unspecified b ack pain laterality, unspecified chronicity, with sciatica presence unspecified M54.5 and Secondary hyperparathyroidism, not elsewhere classified E21.1 [place] [address] [address] Sep, Fibromyalgia M79.7 [place] [address] [address] Sep, Fibromyalgia M79.7 ; Plantar fasciitis, bilateral M72.2 ; Essential hypertension I10 ; Depression F32.9 and Epidermoid cyst L72.0 [place] [address] [address] Jul, [place] [address] [address] Jul, Fibromyalgia M79.7 ; Iron de ficiency anemia, unspecified iron deficiency anemia type D50.9 and Acute nasopharyngitis J00 [facility] [address] [address] Jun, Sore throat J02.9 and Acute serous otitis media of left ear, recurrence not specified H65.02 [place] [address] [address] Jun, Hypothyroidism E03.9 [place] [address] [address] Jun, [place] [address] [address] Jun, Hypothyroidism E03.9 ; Essen tial hypertension I10 and Osteoarthritis M19.90 [place] [address] [address] May, [place] [address] [address] May, [place] [address] [address] Feb, [place] [address] [address] Feb, Leonela-menopausal N95.1 and To bacco use Z72.0 [place] [address] [address] Jan, [place] [address] [address] Jan, Osteoarthritis M19.90 ; Bila teral carotid artery disease I77.9 ; Raynauds syndrome I73.00 ; Essential hypertension I10 ; Allergic rhinitis J30.9 ; Stage 3 chronic kidney disease N18.3 ; Fibromyalgia M79.7 ; Hypothyroidism E03.9 ; GERD (gastroesophageal reflux disease) K21.9 and Vitamin D deficiency E55.9 [place] [address] [address] Dec, Raynauds syndrome I73.00 ; P lantar fascial fibromatosis M72.2 ; Osteoarthritis M19.90 and Fibromyalgia M79.7 [place] [address] [address] Dec, [place] [address] [address] Dec, [place] [address] [address] Oct, Function kidney decreased N2 8.9 [facility] [address] [id number] [address] [place] [address] [id number] 19 Oct, 2016 Dental examination Z01.20 [facility] [address] [id number] [address] [place] [id number] 18 Oct, 2016 Essential hypertension I10 a nd Function kidney decreased N28.9 [facility] [address] [id number] [address] [place] [id number] 04 Oct, 2016 Dental examination Z01.20 [facility] [address] [id number] [address] [place] [address] 03 Oct, 2016 [facility] [address] [facility] [id number] [address] [place] [address] 24 Sep, 2016 Other specified disorders in volving the immune mechanism D89.89 and Schizo affective schizophrenia F25.0 [facility] [address] [facility] [id number] [address] [place] [address] Sep, Schizo affective schizophren ia F25.0 [facility] [address] [id number] [address] [place] [address] 16 Sep, 2016 Eustachian tube dysfunction, bilateral H69.83 [facility] [address] [facility] [id number] [address] [place] [id number] 15 Sep, 2016 [facility] [address] [facility] [id number] [address] [place] [phone] 14 Sep, 2016 [facility] [address] [facility] [id number] [address] [place] [address] 14 Sep, 2016 [facility] [address] [facility] [id number] [address] [place] [address] 13 Sep, 2016 Eustachian tube dysfunction, bilateral H69.83 [facility] [address] [facility] [id number] [address] [place] [address] 09 Sep, 2016 Allergic rhinitis J30.9 ; Es sential hypertension I10 ; Hypothyroidism E03.9 and Schizo affective schizophrenia F25.0 [facility] [address] [address] Jul, Eustachian tube dysfunction, bilateral H69.83 and Visit for TB skin test Z11.1 [facility] [address] [address] Jul, Subacute pansinusitis J01.40 [facility] [address] [address] Jun, Schizo affective schizophren ia F25.0 ; Depression F32.9 ; Allergic rhinitis J30.9 ; Raynauds syndrome I73.00 ; Essential hypertension I10 ; Slow transit constipation K59.01 ; GERD (gastroesophageal reflux disease) K21.9 ; Hypothyroidism E03.9 ; Nicotine addiction F17.200 ; Other viral agents as the cause of diseases classified elsewhere B97.89 ; Acute upper respiratory infection, unspecified J06.9 and Osteoarthritis M19.90 [facility] [address] [address] Jun, Allergic rhinitis J30.9 and GERD (gastroesophageal reflux disease) K21.9 [place] [address] [address] May, [place] [address] [address] Mar, Schizo affective schizophren ia F25.0 [facility] [address] [address] Mar, Schizo affective schizophren ia F25.0 [place] [address] [address] 15 Mar, 2016 Schizo affective schizophren ia F25.0 [place] [address] [address] Mar, Acute non-recurrent maxillar y sinusitis J01.00 [place] [address] [address] Feb, Schizo affective schizophren ia F25.0 [place] [id number] [place] [id number] [address] [place] [address] Feb, Contact dermatitis and eczem a L25.9 [place] [id number] [facility] [id number] [address] [place] [address] Jan, [place] [address] [place] [id number] [place] [address] Jan, Schizo affective schizophren ia F25.0 ; Slow transit constipation K59.01 ; Essential hypertension I10 ; GERD (gastroesophageal reflux disease) K21.9 ; Hypothyroidism E03.9 ; Osteoarthritis M19.90 ; Low back pain, unspecified back pain laterality, unspecified chronicity, with sciatica presence unspecified M54.5 and Bilateral carotid artery disease I77.9 [place] [address] [address] Oct, [place] [address] [address] Sep, Hypothyroid E03.9 [place] [address] [address] Sep, Schizo affective schizophren ia F25.0 ; Depression F32.9 ; Anxiety F41.9 ; Allergic rhinitis J30.9 ; Raynauds syndrome I73.00 ; Insomnia G47.00 ; Essential hypertension I10 ; GERD (gastroesophageal reflux disease) K21.9 ; Hypothyroidism E03.9 and Vitamin D deficiency E55.9 [place] [address] [place] [id number] [address] [place] [address] Sep, [place] [address] [place] [id number] [place] [address] Sep, [place] [address] [place] [id number] [address] [place] [address] Aug, Allergic rhinitis J30.9 ; De pression F32.9 ; Anxiety F41.9 ; Raynauds syndrome I73.00 ; Insomnia G47.00 and GERD (gastroesophageal reflux disease) K21.9 [facility] [address] [place] [address] Aug, MONICA (secretory otitis media) H65.90 and Raynauds syndrome I73.00 [facility] [address] [place] [address] Jul, Acute otitis externa of both ears, unspecified type H60.503 [facility] [address] [place] [id number] [address] [place] [address] Jun, [place] [address] [address] Jun, Essential hypertension I10 ; Allergic rhinitis J30.9 ; Hypothyroidism E03.9 and Osteoarthritis M19.90 [place] [address] [address] Jun, Routine adult health mainten ance Z00.00 ; Hypothyroidism E03.9 ; Essential hypertension I10 ; Insomnia G47.00 ; Nicotine addiction F17.200 ; Raynauds syndrome I73.00 ; GERD (gastroesophageal reflux disease) K21.9 ; Allergic rhinitis J30.9 ; Anxiety F41.9 ; Depression F32.9 and Schizo affective schizophrenia F25.0 [place] [address] [place] [id number] [address] [place] [address] May, Upper respiratory tract infe ction, unspecified type J06.9 [facility] [address] [place] [address] Mar, [facility] [address] [id number] [place] [id number] Mar, [place] [address] [place] [id number] [address] [place] [address] Mar, [place] [address] [place] [id number] [address] [place] [address] Mar, [facility] [address] [place] [address], [place] [address] Feb, Jaw pain 784.92 and Environm ental and seasonal allergies 477.8 [facility] [address] [id number] [address] [place] [address], [place] [address] Feb, [facility] [address] [id number] [address] [place] [address], [place] [address] Oct, [facility] [address] [id number] [address] [place] [address], [place] [address] Oct, [facility] [address] [id number] [address] [place] [address], [place] [address] Oct, [facility] [address] [id number] [address] [place] [address], [place] [address] Oct, [facility] [address] [id number] [address] [place] [address], [place] [address] Sep, [facility] [address] [id number] [address] [place] [address], [place] [address] Sep, [facility] [address] [id number] [address] [place] [address], [place] [address] Jul, [facility] [address] [id number] [address] [place] [address], [place] [address] Jul, [facility] [address] [id number] [address] [place] [address] Jul, [facility] [address] [id number] [address] [place] [address] Jul, [facility] [address] [id number] [address] [place] [address], [place] [address] Jul, [facility] [address] [id number] [address] [place] [address] Jul, [facility] [address] [id number] [address] [place] [address], [place] [address] Jul, [facility] [address] [id number] [address] [place] [address], [place] [address] 31 Jun, 2014 [facility] [address] [id number] [address] [place] [address], [place] [address] 31 Jun, 2014 [facility] [address] [id number] [address] [place] [address], [place] [address] 22 Jun, 2014 [facility] [address] [id number] [address] [place] [address], [place] [address] 18 Jun, 2014 [facility] [address] [id number] [address] [place] [address], [place] [address] 17 Jun, 2014 [facility] [address] [id number] [address] [place] [address], [place] [address] 17 Jun, 2014 [facility] [address] [id number] [address] [place] [address], [place] [address] 16 Jun, 2014 [facility] [address] [id number] [address] [place] [address], [place] [address] 16 Jun, 2014 [facility] [address] [id number] [address] [place] [address], [place] [address] 30 Apr, 2014 [facility] [address] [id number] [address] [place] [address], [place] [address] 30 Apr, 2014 [facility] [address] [id number] [address] [place] [address], [place] [address] 17 Mar, 2014 [facility] [address] [id number] [address] [place] [address], [place] [address] 17 Mar, 2014 [facility] [address] [id number] [address] [place] [address], [place] [address] Mar, [facility] [address] [id number] [address] [place] [address], [place] [address] Mar, [facility] [address] [id number] [address] [place] [address], [place] [address] 16 Jan, 2014 [facility] [address] [id number] [address] [place] [address], [place] [address] Jan, [facility] [address] [id number] [address] [place] [address], [place] [address] Oct, [facility] [address] [id number] [address] [place] [address], [place] [address] Oct, [facility] [address] [id number] [address] [place] [address], [place] [address] Sep, [facility] [address] [id number] [address] [place] [address], [place] [address] Sep, [facility] [address] [id number] [address] [place] [address], [place] [address] Sep, [facility] [address] [id number] [address] [place] [address], [place] [address] Sep, [facility] [address] [id number] [address] [place] [address], [place] [address] Sep, [facility] [address] [id number] [address] [place] [address], [place] [address] Sep, [facility] [address] [id number] [address] [place] [address], [place] [address] Aug, [facility] [address] [id number] [address] [place] [address], [place] [address] Aug, [facility] [address] [id number] [address] [place] [address], [place] [address] Jul, [facility] [address] [id number] [address] [place] [address], [place] [address] Jul, [facility] [address] [id number] [address] [place] [address], [place] [address] Jul, [facility] [address] [id number] [address] [place] [address], [place] [address] Jul, [facility] [address] [id number] [address] [place] [address], [place] [address] Jun, [facility] [address] [id number] [address] [place] [address] Jun, [facility] [address] [id number] [address] [place] [address], [place] [address] May, [facility] [address] [id number] [address] [place] [id number] May, [facility] [address] [id number] [address] [place] [address], [place] [address] Apr, [facility] [address] [id number] [address] [place] [address], [place] [address] Apr, [facility] [address] [id number] [address] [place] [address], [place] [address] Apr, [facility] [address] [id number] [address] [place] [address], [place] [address] Apr, [facility] [address] [id number] [address] [place] [id number] Apr, [facility] [address] [id number] [address] [place] [address], [place] [address] Apr, [facility] [address] [id number] [address] [place] [address], [place] [address] Mar, [facility] [address] [id number] [address] [place] [address], [place] [address] Mar, [facility] [address] [id number] [address] [place] [address], [place] [address] Mar, [facility] [address] [id number] [address] [place] [id number] Mar, [facility] [address] [id number] [address] [place] [address], [place] [address] Mar, [facility] [address] [id number] [address] [place] [id number] Feb, [facility] [address] [id number] [address] [place] [phone] Feb, [facility] [address] [id number] [facility] [place] [address] Feb, [facility] [address] [id number] [address] [place] [address], [place] [address] 08 Feb, 2013 [facility] [address] [id number] [address] [place] [address], [place] [address] 18 Jan, 2013 [facility] [address] [id number] [address] [place] [address], [place] [id number] 17 Jan, 2013 [facility] [address] [id number] [address] [place] [address], [place] [address] 16 Jan, 2013 [facility] [address] [id number] [address] [place] [address], [place] [address] Jan, [facility] [address] [id number] [address] [place] [address], [place] [address] Jan, [facility] [address] [id number] [address] [place] [address], [place] [address] Jan, [facility] [address] [id number] [address] [place] [address], [place] [address] 27 Dec, 2012 [facility] [address] [id number] [address] [place] [address], [place] [address] 25 Dec, 2012 [facility] [address] [id number] [address] [place] [address], [place] [address] Dec, [facility] [address] [id number] [address] [place] [address], [place] [address] 14 Dec, 2012 [facility] [address] [id number] [address] [place] [address], [place] [address] 13 Dec, 2012 [facility] [address] [id number] [address] [place] [address], [place] [address] 12 Dec, 2012 [facility] [address] [id number] [address] [place] [address], [place] [address] 11 Dec, 2012 [facility] [address] [id number] [address] [place] [address], [place] [address] Dec, [facility] [address] [id number] [address] [place] [address], [place] [address] Dec, [facility] [address] [id number] [address] [place] [address], [place] [address] Dec, [facility] [address] [id number] [address] [place] [address], [place] [address] November, [facility] [address] [id number] [address] [place] [address], [place] [address] November, [facility] [address] [id number] [address] [place] [address], [place] [address] November, [facility] [address] [id number] [address] [place] [address], [place] [address] November, [facility] [address] [id number] [address] [place] [address], [place] [address] November, [facility] [address] [id number] [address] [place] [address], [place] [address] Oct, [facility] [address] [id number] [address] [place] [address], [place] [address] Oct, [facility] [address] [id number] [address] [place] [address], [place] [address] Oct, [facility] [address] [id number] [address] [place] [address], [place] [address] Oct, [facility] [address] [id number] [address] [place] [address], [place] [address] Oct, [facility] [address] [id number] [address] [place] [address], [place] [address] Sep, [facility] [address] [id number] [address] [place] [address], [place] [address] Sep, [facility] [address] [id number] [address] [place] [address], [place] [address] Sep, [facility] [address] [id number] [address] [place] [address], [place] [address] 05 Sep, 2012 [facility] [address] [id number] [address] [place] [address], [place] [address] 26 Aug, 2012 [facility] [address] [id number] [address] [place] [address], [place] [address] 18 Aug, 2012 [facility] [address] [id number] [address] [place] [address], [place] [address] 18 Aug, 2012 [facility] [address] [id number] [address] [place] [address], [place] [address] 15 Aug, 2012 [facility] [address] [id number] [address] [place] [address], [place] [address] Jun, [facility] [address] [id number] [address] [place] [address], [place] [address] Jun, [facility] [address] [id number] [address] [place] [address], [place] [address] Jun, [facility] [address] [id number] [address] [place] [address], [place] [address] Jun, [facility] [address] [id number] [address] [place] [address], [place] [address] Jun, [facility] [address] [id number] [address] [place] [address], [place] [address] Jun, [facility] [address] [id number] [address] [place] [address], [place] [address] Jun, [facility] [address] [id number] [address] [place] [address], [place] [address] Jun, [facility] [address] [id number] [address] [place] [address], [place] [address] Jun, [facility] [address] [id number] [address] [place] [address], [place] [address] Jun, [facility] [address] [id number] [address] [place] [address], [place] [address] May, [facility] [address] [id number] [address] [place] [address], [place] [address] May, [facility] [address] [id number] [address] [place] [address], [place] [address] May, [facility] [address] [id number] [address] [place] [address], [place] [address] May, [facility] [address] [id number] [address] [place] [address], [place] [address] May, [facility] [address] [id number] [address] [place] [address], [place] [address] 16 May, 2012 [facility] [address] [id number] [address] [place] [address], [place] [address] 16 May, 2012 [facility] [address] [id number] [address] [place] [address], [place] [address] 14 May, 2012 [facility] [address] [id number] [address] [place] [address], [place] [address] 14 May, 2012 [facility] [address] [id number] [address] [place] [address], [place] [address] 30 Apr, 2012 [facility] [address] [id number] [address] [place] [id number] 30 Apr, 2012 [facility] [address] [id number] [address] [place] [id number] 17 Apr, 2012 [facility] [address] [id number] [address] [place] [id number] 17 Apr, 2012 [facility] [address] [id number] [address] [place] [address], [place] [address] 09 Apr, 2012 [facility] [address] [id number] [address] [place] [id number] 18 Mar, 2012 [facility] [address] [id number] [address] [place] [id number] 17 Mar, 2012 [facility] [address] [id number] [address] [place] [id number] 07 Mar, 2012 [facility] [address] [id number] [address] [place] [address], [place] [address] Feb, [facility] [address] [id number] [address] [place] [address], [place] [address] Feb, [facility] [address] [id number] [address] [place] [address], [place] [address] Feb, [facility] [address] [id number] [address] [place] [address], [place] [address] Feb, [facility] [address] [id number] [address] [place] [address], [place] [address] Jan, [facility] [address] [id number] [address] [place] [address], [place] [address] Jan, [facility] [address] [id number] [address] [place] [address], [place] [address] Jan, [facility] [address] [id number] [address] [place] [address], [place] [address] Jan, [facility] [address] [id number] [address] [place] [address], [place] [address] Jan, [facility] [address] [id number] [address] [place] [address], [place] [address] Jan, [facility] [address] [id number] [address] [place] [address], [place] [address] Dec, [facility] [address] [id number] [address] [place] [address], [place] [address] Dec, [facility] [address] [id number] [address] [place] [address], [place] [address] Dec, [facility] [address] [id number] [address] [place] [address], [place] [address] November, [facility] [address] [id number] [address] [place] [address], [place] [address] November, [facility] [address] [id number] [address] [place] [address], [place] [address] November, [facility] [address] [id number] [address] [place] [address], [place] [address] November, [facility] [address] [id number] [address] [place] [address], [place] [address] Oct, [facility] [address] [id number] [address] [place] [address], [place] [address] Oct, [facility] [address] [id number] [address] [place] [address], [place] [address] Oct, [facility] [address] [id number] [address] [place] [address], [place] [address] Sep, [facility] [address] [id number] [address] [place] [address], [place] [address] Sep, [facility] [address] [id number] [address] [place] [address], [place] [address] Aug, [facility] [address] [id number] [address] [place] [address], [place] [address] Aug, [facility] [address] [id number] [address] [place] [address], [place] [address] Aug, [facility] [address] [id number] [address] [place] [address], [place] [address] Aug, [facility] [address] [id number] [address] [place] [address], [place] [address] Jul, [facility] [address] [id number] [address] [place] [address], [place] [address] Jul, [facility] [address] [id number] [address] [place] [address], [place] [address] Jul, [facility] [address] [id number] [address] [place] [address], [place] [address] Jul, [facility] [address] [id number] [address] [place] [address], [place] [address] Jul, [facility] [address] [id number] [address] [place] [address], [place] [address] Jul, [facility] [address] [id number] [address] [place] [address], [place] [address] Jul, [facility] [address] [id number] [address] [place] [address], [place] [address] Jul, [facility] [address] [id number] [address] [place] [address], [place] [address] Jun, [facility] [address] [id number] [address] [place] [address], [place] [address] Jun, [facility] [address] [id number] [address] [place] [address], [place] [address] Jun, [facility] [address] [id number] [address] [place] [address], [place] [address] Jun, [facility] [address] [id number] [address] [place] [address], [place] [address] Jun, [facility] [address] [id number] [address] [place] [address], [place] [address] May, [facility] [address] [id number] [address] [place] [address], [place] [address] May, [facility] [address] [id number] [address] [place] [address], [place] [address] May, [facility] [address] [id number] [address] [place] [address], [place] [address] 15 May, 2011 [facility] [address] [id number] [address] [place] [address], [place] [address] May, [facility] [address] [id number] [address] [place] [address], [place] [address] May, [facility] [address] [id number] [address] [place] [address], [place] [address] Apr, [facility] [address] [id number] [address] [place] [id number] 13 Apr, 2011 [facility] [address] [id number] [address] [place] [id number] Apr, [facility] [address] [id number] [address] [place] [address] Feb, [facility] [address] [id number] [address] [place] [id number] Feb, [facility] [address] [id number] [address] [place] [address] Oct, [facility] [address] [id number] [address] [place] [address] Jul, [facility] [address] [id number] [address] [place] [address] Jul, [facility] [address] [id number] [address] [place] [address] Jun, [facility] [address] [id number] [address] [place] [id number] May, [facility] [address] [id number] [address] [place] [id number] May, [facility] [address] [id number] [address] [place] [id number] May, [facility] [address] [id number] [address] [place] [id number] Apr, [facility] [address] [id number] [address] [place] [id number] Jan, [facility] [address] [id number] [address] [place] [id number] November, IMMUNIZATIONS No Known Immunizations SOCIAL HISTORY [...]
--- OUTSIDE RECORDS SUMMARY | 2020-01-31 09:37 | XMS REPORT ---
Author Author Ivet BRISENO Y Organization [facility] Address [address] [place] [address] Care Team Providers Care Allied Health Professional Name Role Phone LINDY BRISENO Unavailable PROBLEMS Type Condition ICD9-CM Code QTH31-AF Code Onset Dates Condition S tatus SNOMED Code Problem Osteoarthritis M19.90 Active 29668 5006 Problem Bilateral carotid artery disease I77.9 Active 633980229 Problem Stage 3 chronic kidney disease N18.3 Active 199635551 Problem Essential hypertension I10 Active 67005433 Problem Acquired hypothyroidism E03.9 Active 840018178 Problem GERD (gastroesophageal reflux disease) K21.9 Active 611929047 Problem Seasonal allergic rhinitis due to pollen J30.1 Active 15996429 Problem Schizo affective schizophrenia F25.0 Active 441139718 Problem Fibromyalgia M79.7 Active 8641506 05 Problem Vitamin D deficiency E55.9 Active 25493192 Problem Iron deficiency anemia, unspecified iron deficiency an emia type D50.9 Active 80829101 Problem Secondary hyperparathyroidism, not elsewhere classified E21.1 Active 58497446 ALLERGIES No Information ENCOUNTERS Encounter Location Date Diagnosis [address] [id number] [address] Dec, Osteoarthritis M19.90 [facility] [address] [facility] [id number] [address] [place] [address] November, Encounter for medication mon itoring Z51.[id number] [place] [address] November, Encounter for medication mon itoring Z51.81 and Osteoarthritis M19.90 [facility] [address] [facility] [id number] [address] [place] [address] November, Seasonal allergic rhinitis d ue to pollen J30.1 [facility] [address] [facility] [id number] [address] [place] [id number] 14 Oct, 2019 Lumbar radiculopathy M54.16 ; Fibromyalgia M79.7 ; Essential hypertension I10 and GERD (gastroesophageal reflux disease) K21.9 [facility] [address] [facility] [id number] [address] [place] [id number] 03 Oct, 2019 Osteoarthritis M19.90 [facility] [address] [facility] [id number] [address] [place] [id number] Sep, [facility] [address] [facility] [id number] [address] [place] [address] Aug, Osteoarthritis M19.90 [facility] [address] [place] [id number] [address] [place] [address] Jul, Osteoarthritis M19.90 [facility] [address] [place] [id number] [address] [place] [id number] Jun, Osteoarthritis M19.90 [facility] [address] [facility] [id number] [address] [place] [id number] Jun, Herpes zoster without compli cation B02.9 [facility] [address] [facility] [id number] [address] [place] [address] May, Osteoarthritis M19.90 [facility] [address] [facility] [id number] [address] [place] [address] May, [facility] [address] [facility] [id number] [address] [place] [id number] Apr, [facility] [address] [facility] [id number] [address] [place] [address] Mar, Osteoarthritis M19.90 [facility] [address] [facility] [id number] [address] [place] [id number] Mar, [facility] [address] [facility] [id number] [address] [place] [id number] Feb, Lumbago with sciatica, left side M54.42 ; Lumbago with sciatica, right side M54.41 and Other chronic pain G89.29 [facility] [address] [facility] [id number] [address] [place] [address] Feb, Encounter for Medicare jesus wellness exam Z00.00 ; Schizo affective schizophrenia F25.0 ; Essential hypertension I10 ; GERD (gastroesophageal reflux disease) K21.9 ; Secondary hyperparathyroidism, not elsewhere classified E21.1 ; Idiopathic peripheral neuropathy G60.9 ; Stage 3 chronic kidney disease N18.3 ; Acquired hypothyroidism E03.9 ; Bilateral carotid artery disease I77.9 and Hypothyroidism E03.9 [facility] [address] [facility] [id number] [address] [place] [id number] Feb, Osteoarthritis M19.90 [facility] [address] [facility] [id number] [address] [place] [address] Jan, Osteoarthritis M19.90 [facility] [address] [place] [id number] [address] [place] [address] Jan, Osteoarthritis M19.90 [facility] [address] [facility] [id number] [address] [place] [address] Dec, Acquired hypothyroidism E03. 9 [facility] [address] [facility] [id number] [address] [place] [address] Dec, Fibromyalgia M79.7 ; Hypothy roidism E03.9 ; Essential hypertension I10 and Sensory loss R20.[address] [place] [address] November, Osteoarthritis M19.90 [facility] [address] [facility] [id number] [address] [place] [address] Oct, Osteoarthritis M19.90 [facility] [address] [facility] [id number] [address] [place] [phone] Oct, Sore throat J02.9 and Acute nasopharyngitis J00 [facility] [address] [facility] [id number] [address] [place] [address] Sep, Osteoarthritis M19.90 [facility] [address] [place] [id number] [address] [place] [address] Sep, Acute non-recurrent maxillar y sinusitis J01.00 [facility] [address] [facility] [id number] [address] [place] [id number] 18 Aug, 2018 Acute non-recurrent pansinus itis J01.40 [facility] [address] [place] [id number] [address] [place] [address] Jul, Osteoarthritis M19.90 [facility] [address] [place] [id number] [address] [place] [address] Jul, [facility] [address] [place] [id number] [address] [place] [address] Apr, Osteoarthritis M19.90 [place] [address] [address] Apr, Fibromyalgia M79.7 ; Essenti al hypertension I10 ; Encounter for immunization Z23 ; Stage 3 chronic kidney disease N18.3 and Depression F32.9 [place] [address] [address] Dec, Fibromyalgia M79.7 ; Osteoar thritis M19.90 and Encounter for medication management Z79.899 [facility] [address] [address] November, Nausea and vomiting, intract ability of vomiting not specified, unspecified vomiting type R11.2 and Dizziness R42 [facility] [address] [place] [id number] [address] [place] [address] November, Fibromyalgia M79.7 [place] [address] [place] [id number] [address] [place] [address] November, Medicare annual wellness vis it, initial Z00.00 ; Anxiety F41.9 ; Depression F32.9 ; Stage 3 chronic kidney disease N18.3 ; Fibromyalgia M79.7 ; Essential hypertension I10 ; Secondary hyperparathyroidism, not elsewhere classified E21.1 ; Osteoarthritis M19.90 ; Hypothyroidism E03.9 and Encounter for immunization Z23 [facility] [address] [address] Oct, [place] [id number] [address] Oct, Sebaceous cyst L72.3 [place] [address] [address] Sep, Low back pain, unspecified b ack pain laterality, unspecified chronicity, with sciatica presence unspecified M54.5 and Secondary hyperparathyroidism, not elsewhere classified E21.1 [place] [address] [address] Sep, Fibromyalgia M79.7 [place] [address] [address] Sep, Fibromyalgia M79.7 ; Plantar fasciitis, bilateral M72.2 ; Essential hypertension I10 ; Depression F32.9 and Epidermoid cyst L72.0 [place] [address] [address] Jul, [place] [address] [address] Jul, Fibromyalgia M79.7 ; Iron de ficiency anemia, unspecified iron deficiency anemia type D50.9 and Acute nasopharyngitis J00 [facility] [address] [address] Jun, Sore throat J02.9 and Acute serous otitis media of left ear, recurrence not specified H65.02 [facility] [address] [address] Jun, Hypothyroidism E03.9 [facility] [address] [address] Jun, [place] [address] [address] Jun, Hypothyroidism E03.9 ; Essen tial hypertension I10 and Osteoarthritis M19.90 [place] [address] [address] May, [place] [address] [address] May, [place] [address] [address] Feb, [place] [address] [address] Feb, Leonela-menopausal N95.1 and To bacco use Z72.0 [place] [address] [address] Jan, [place] [address] [address] Jan, Osteoarthritis M19.90 ; Bila teral carotid artery disease I77.9 ; Raynauds syndrome I73.00 ; Essential hypertension I10 ; Allergic rhinitis J30.9 ; Stage 3 chronic kidney disease N18.3 ; Fibromyalgia M79.7 ; Hypothyroidism E03.9 ; GERD (gastroesophageal reflux disease) K21.9 and Vitamin D deficiency E55.9 [place] [address] [address] Dec, Raynauds syndrome I73.00 ; P lantar fascial fibromatosis M72.2 ; Osteoarthritis M19.90 and Fibromyalgia M79.7 [place] [address] [address] Dec, [place] [address] [address] Dec, [place] [address] [address] Oct, Function kidney decreased N2 8.9 [facility] [address] [id number] [address] [place] [id number] Oct, Dental examination Z01.20 [facility] [address] [id number] [address] [place] [address] Oct, Essential hypertension I10 a nd Function kidney decreased N28.9 [facility] [address] [id number] [address] [place] [id number] Oct, Dental examination Z01.20 [facility] [address] [id number] [address] [place] [id number] Oct, [facility] [address] [facility] [id number] [address] [place] [address] 24 Sep, 2016 Other specified disorders in volving the immune mechanism D89.89 and Schizo affective schizophrenia F25.0 [facility] [address] [facility] [id number] [address] [place] [address] Sep, Schizo affective schizophren ia F25.0 [facility] [address] [id number] [address] [place] [id number] 16 Sep, 2016 Eustachian tube dysfunction, bilateral H69.83 [facility] [address] [id number] [address] [place] [id number] 15 Sep, 2016 [facility] [address] [id number] [address] [place] [id number] 14 Sep, 2016 [facility] [address] [id number] [address] [place] [address] 14 Sep, 2016 [facility] [address] [id number] [address] [place] [id number] 13 Sep, 2016 Eustachian tube dysfunction, bilateral H69.83 [facility] [address] [facility] [id number] [address] [place] [id number] 09 Sep, 2016 Allergic rhinitis J30.9 ; Es sential hypertension I10 ; Hypothyroidism E03.9 and Schizo affective schizophrenia F25.0 [facility] [address] [place] [address] Jul, Eustachian tube dysfunction, bilateral H69.83 and Visit for TB skin test Z11.1 [facility] [address] [place] [address] Jul, Subacute pansinusitis J01.40 [facility] [address] [place] [id number] [address] [place] [address] Jun, Schizo affective schizophren ia F25.0 ; Depression F32.9 ; Allergic rhinitis J30.9 ; Raynauds syndrome I73.00 ; Essential hypertension I10 ; Slow transit constipation K59.01 ; GERD (gastroesophageal reflux disease) K21.9 ; Hypothyroidism E03.9 ; Nicotine addiction F17.200 ; Other viral agents as the cause of diseases classified elsewhere B97.89 ; Acute upper respiratory infection, unspecified J06.9 and Osteoarthritis M19.90 [facility] [address] [place] [id number] [address] [place] [address] Jun, Allergic rhinitis J30.9 and GERD (gastroesophageal reflux disease) K21.9 [facility] [address] [address] May, [place] [address] [address] Mar, Schizo affective schizophren ia F25.0 [facility] [address] [place] [id number] [address] [place] [address] Mar, Schizo affective schizophren ia F25.0 [facility] [address] [place] [id number] [address] [place] [id number] 15 Mar, 2016 Schizo affective schizophren ia F25.0 [place] [address] [place] [id number] [address] [place] [address] Mar, Acute non-recurrent maxillar y sinusitis J01.00 [facility] [address] [place] [id number] [address] [place] [address] Feb, Schizo affective schizophren ia F25.0 [place] [address] [facility] [id number] [address] [place] [address] Feb, Contact dermatitis and eczem a L25.9 [place] [address] [facility] [id number] [address] [place] [address] Jan, [place] [address] [address] Jan, Schizo affective schizophren ia F25.0 ; Slow transit constipation K59.01 ; Essential hypertension I10 ; GERD (gastroesophageal reflux disease) K21.9 ; Hypothyroidism E03.9 ; Osteoarthritis M19.90 ; Low back pain, unspecified back pain laterality, unspecified chronicity, with sciatica presence unspecified M54.5 and Bilateral carotid artery disease I77.9 [place] [address] [place] [id number] [address] [place] [address] Oct, [place] [address] [place] [id number] [address] [place] [address] Sep, Hypothyroid E03.9 [place] [address] [address] Sep, Schizo affective schizophren ia F25.0 ; Depression F32.9 ; Anxiety F41.9 ; Allergic rhinitis J30.9 ; Raynauds syndrome I73.00 ; Insomnia G47.00 ; Essential hypertension I10 ; GERD (gastroesophageal reflux disease) K21.9 ; Hypothyroidism E03.9 and Vitamin D deficiency E55.9 [place] [address] [facility] [id number] [address] [place] [address] Sep, [place] [address] [address] Sep, [place] [address] [place] [id number] [address] [place] [id number] Aug, Allergic rhinitis J30.9 ; De pression F32.9 ; Anxiety F41.9 ; Raynauds syndrome I73.00 ; Insomnia G47.00 and GERD (gastroesophageal reflux disease) K21.9 [facility] [address] [place] [address] Aug, MONICA (secretory otitis media) H65.90 and Raynauds syndrome I73.00 [facility] [address] [place] [id number] [address] [place] [address] Jul, Acute otitis externa of both ears, unspecified type H60.503 [facility] [address] [place] [id number] [address] [place] [address] Jun, [place] [address] [address] Jun, Essential hypertension I10 ; Allergic rhinitis J30.9 ; Hypothyroidism E03.9 and Osteoarthritis M19.90 [place] [address] [address] Jun, Routine adult health mainten ance Z00.00 ; Hypothyroidism E03.9 ; Essential hypertension I10 ; Insomnia G47.00 ; Nicotine addiction F17.200 ; Raynauds syndrome I73.00 ; GERD (gastroesophageal reflux disease) K21.9 ; Allergic rhinitis J30.9 ; Anxiety F41.9 ; Depression F32.9 and Schizo affective schizophrenia F25.0 [place] [address] [place] [id number] [address] [place] [address] May, Upper respiratory tract infe ction, unspecified type J06.9 [place] [address] [place] [id number] [address] [place] [address] Mar, [facility] [address] [place] [place] [id number] [place] [id number] Mar, [place] [address] [place] [id number] [address] [place] [address] Mar, [place] [address] [place] [id number] [address] [place] [address] Mar, [place] [address] [id number] [address] [place] [address], [place] [address] Feb, Jaw pain 784.92 and Environm ental and seasonal allergies 477.8 [facility] [address] [id number] [address] [place] [address], [place] [address] Feb, [facility] [address] [id number] [address] [place] [address], [place] [address] Oct, [facility] [address] [id number] [address] [place] [address], [place] [address] Oct, [facility] [address] [id number] [address] [place] [address], [place] [address] Oct, [facility] [address] [id number] [address] [place] [address], [place] [address] Oct, [facility] [address] [id number] [address] [place] [address], [place] [address] Sep, [facility] [address] [id number] [address] [place] [address], [place] [address] Sep, [facility] [address] [id number] [address] [place] [address], [place] [address] Jul, [facility] [address] [id number] [address] [place] [address], [place] [address] Jul, [facility] [address] [id number] [address] [place] [address] Jul, [facility] [address] [id number] [address] [place] [id number] Jul, [facility] [address] [id number] [address] [place] [id number] Jul, [facility] [address] [id number] [address] [place] [address], [place] [address] Jul, [facility] [address] [id number] [address] [place] [address], [place] [address] Jul, [facility] [address] [id number] [address] [place] [address], [place] [address] 31 Jun, 2014 [facility] [address] [id number] [address] [place] [address], [place] [address] 31 Jun, 2014 [facility] [address] [id number] [address] [place] [address], [place] [address] 22 Jun, 2014 [facility] [address] [id number] [address] [place] [address], [place] [address] 18 Jun, 2014 [facility] [address] [id number] [address] [place] [address], [place] [address] 17 Jun, 2014 [facility] [address] [id number] [address] [place] [address], [place] [address] 17 Jun, 2014 [facility] [address] [id number] [address] [place] [address], [place] [address] 16 Jun, 2014 [facility] [address] [id number] [address] [place] [address], [place] [address] 16 Jun, 2014 [facility] [address] [id number] [address] [place] [address], [place] [address] 30 Apr, 2014 [facility] [address] [id number] [address] [place] [address], [place] [address] 30 Apr, 2014 [facility] [address] [id number] [address] [place] [address], [place] [address] 17 Mar, 2014 [facility] [address] [id number] [address] [place] [address], [place] [address] 17 Mar, 2014 [facility] [address] [id number] [address] [place] [address], [place] [address] 03 Mar, 2014 [facility] [address] [id number] [address] [place] [address], [place] [address] 03 Mar, 2014 [facility] [address] [id number] [address] [place] [address], [place] [address] 16 Jan, 2014 [facility] [address] [id number] [address] [place] [address], [place] [address] Jan, [facility] [address] [id number] [facility] [place] [address] Oct, [facility] [address] [id number] [address] [place] [address], [place] [address] Oct, [facility] [address] [id number] [facility] [place] [place] [address] Sep, [facility] [address] [id number] [address] [place] [address], [place] [address] Sep, [facility] [address] [id number] [address] [place] [address], [place] [address] Sep, [facility] [address] [id number] [address] [place] [address], [place] [address] Sep, [facility] [address] [id number] [address] [place] [address], [place] [address] Sep, [facility] [place] [facility] [address] [id number] [address] [place] [address], [place] [address] Sep, [facility] [address] [id number] [address] [place] [address], [place] [address] Aug, [facility] [place] [facility] [address] [id number] [address] [place] [address], [place] [address] Aug, [facility] [address] [id number] [address] [place] [address], [place] [address] Jul, [facility] [place] [facility] [address] [id number] [address] [place] [address], [place] [address] Jul, [facility] [place] [facility] [address] [id number] [address] [place] [address], [place] [address] Jul, [facility] [place] [facility] [address] [id number] [address] [place] [address], [place] [address] Jul, [facility] [place] [facility] [address] [id number] [address] [place] [address], [place] [address] Jun, [facility] [place] [facility] [address] [id number] [address] [place] [address] Jun, [facility] [address] [id number] [address] [place] [address], [place] [address] May, [facility] [address] [id number] [address] [place] [address], [place] [address] May, [facility] [address] [id number] [address] [place] [address], [place] [address] Apr, [facility] [address] [id number] [address] [place] [address], [place] [address] Apr, [facility] [address] [id number] [address] [place] [address], [place] [address] Apr, [facility] [address] [id number] [address] [place] [address], [place] [address] Apr, [facility] [address] [id number] [address] [place] [address], [place] [address] Apr, [facility] [address] [id number] [address] [place] [address], [place] [address] Apr, [facility] [address] [id number] [address] [place] [address], [place] [address] 24 Mar, 2013 [facility] [address] [id number] [address] [place] [address], [place] [address] Mar, [facility] [address] [id number] [address] [place] [address], [place] [address] Mar[facility] [facility] [address] [id number] [address] [place] [address], [place] [address] Mar, [facility] [address] [id number] [address] [place] [address], [place] [address] Mar, [facility] [address] [id number] [address] [place] [address], [place] [address] Feb, [facility] [address] [id number] [address] [place] [address], [place] [address] Feb, [facility] [address] [id number] [address] [place] [address], [place] [address] Feb, [facility] [address] [id number] [address] [place] [address], [place] [address] Feb, [facility] [address] [id number] [address] [place] [address], [place] [address] Jan, [facility] [address] [id number] [address] [place] [address], [place] [address] Jan, [facility] [address] [id number] [address] [place] [address], [place] [address] 16 Jan, 2013 [facility] [address] [id number] [address] [place] [address], [place] [address] Jan, [facility] [address] [id number] [address] [place] [address], [place] [address] Jan, [facility] [address] [id number] [address] [place] [address], [place] [address] Jan, [facility] [address] [id number] [address] [place] [address], [place] [address] Dec, [facility] [address] [id number] [address] [place] [address], [place] [address] Dec, [facility] [address] [id number] [address] [place] [address], [place] [address] Dec, [facility] [address] [id number] [address] [place] [address], [place] [address] 14 Dec, 2012 [facility] [address] [id number] [address] [place] [address], [place] [address] Dec, [facility] [address] [id number] [address] [place] [address], [place] [address] 12 Dec, 2012 [facility] [address] [id number] [address] [place] [address], [place] [address] Dec, [facility] [address] [id number] [address] [place] [address], [place] [address] Dec, [facility] [address] [id number] [address] [place] [address], [place] [address] Dec, [facility] [address] [id number] [address] [place] [address], [place] [address] Dec, [facility] [address] [id number] [address] [place] [address], [place] [address] November, [facility] [address] [id number] [address] [place] [address], [place] [address] November, [facility] [address] [id number] [address] [place] [address], [place] [address] November, [facility] [address] [id number] [address] [place] [address], [place] [address] November, [facility] [address] [id number] [address] [place] [address], [place] [address] November, [facility] [address] [id number] [address] [place] [address], [place] [address] Oct, [facility] [address] [id number] [address] [place] [address], [place] [address] Oct, [facility] [address] [id number] [address] [place] [address], [place] [address] Oct, [facility] [address] [id number] [address] [place] [address], [place] [address] Oct, [facility] [address] [id number] [address] [place] [address], [place] [address] Oct, [facility] [address] [id number] [address] [place] [address], [place] [address] Sep, [facility] [address] [id number] [address] [place] [address], [place] [address] Sep, [facility] [address] [id number] [address] [place] [address], [place] [address] Sep, [facility] [address] [id number] [address] [place] [address], [place] [address] 05 Sep, 2012 [facility] [address] [id number] [address] [place] [address], [place] [address] 26 Aug, 2012 [facility] [address] [id number] [address] [place] [address], [place] [address] 18 Aug, 2012 [facility] [address] [id number] [address] [place] [address], [place] [address] 18 Aug, 2012 [facility] [address] [id number] [address] [place] [address], [place] [address] 15 Aug, 2012 [facility] [address] [id number] [address] [place] [address], [place] [address] Jun, [facility] [address] [id number] [address] [place] [address], [place] [address] Jun, [facility] [address] [id number] [address] [place] [address], [place] [address] Jun, [facility] [address] [id number] [address] [place] [address], [place] [address] Jun, [facility] [address] [id number] [address] [place] [address], [place] [address] Jun, [facility] [address] [id number] [address] [place] [address], [place] [address] Jun, [facility] [address] [id number] [address] [place] [address], [place] [address] Jun, [facility] [address] [id number] [address] [place] [address], [place] [address] Jun, [facility] [address] [id number] [address] [place] [address], [place] [address] Jun, [facility] [address] [id number] [address] [place] [address], [place] [address] Jun, [facility] [address] [id number] [address] [place] [address], [place] [address] May, [facility] [address] [id number] [address] [place] [address], [place] [address] May, [facility] [address] [id number] [address] [place] [address], [place] [address] May, [facility] [address] [id number] [address] [place] [address], [place] [address] May, [facility] [address] [id number] [address] [place] [address], [place] [address] 26 May, 2012 [facility] [address] [id number] [address] [place] [address], [place] [address] 16 May, 2012 [facility] [address] [id number] [address] [place] [address], [place] [address] 16 May, 2012 [facility] [address] [id number] [address] [place] [address], [place] [address] 14 May, 2012 [facility] [address] [id number] [address] [place] [address], [place] [address] 14 May, 2012 [facility] [address] [id number] [address] [place] [address], [place] [address] 30 Apr, 2012 [facility] [address] [id number] [address] [place] [address], [place] [address] 30 Apr, 2012 [facility] [address] [id number] [address] [place] [address], [place] [address] 17 Apr, 2012 [facility] [address] [id number] [address] [place] [id number] 17 Apr, 2012 [facility] [address] [id number] [address] [place] [address], [place] [address] 09 Apr, 2012 [facility] [address] [id number] [address] [place] [address], [place] [address] 18 Mar, 2012 [facility] [address] [id number] [address] [place] [address], [place] [address] 17 Mar, 2012 [facility] [address] [id number] [address] [place] [address], [place] [address] 07 Mar, 2012 [facility] [address] [id number] [address] [place] [address], [place] [address] Feb, [facility] [address] [id number] [address] [place] [address], [place] [address] Feb, [facility] [address] [id number] [address] [place] [address], [place] [address] Feb, [facility] [address] [id number] [address] [place] [address], [place] [address] Feb, [facility] [address] [id number] [address] [place] [address], [place] [address] Jan, [facility] [address] [id number] [address] [place] [address], [place] [address] Jan, [facility] [address] [id number] [address] [place] [address], [place] [address] Jan, [facility] [address] [id number] [address] [place] [address], [place] [address] Jan, [facility] [address] [id number] [address] [place] [address], [place] [address] Jan, [facility] [address] [id number] [address] [place] [address], [place] [address] Jan, [facility] [address] [id number] [address] [place] [address], [place] [address] Dec, [facility] [address] [id number] [address] [place] [address], [place] [address] Dec, [facility] [address] [id number] [address] [place] [address], [place] [address] Dec, [facility] [address] [id number] [address] [place] [address], [place] [address] November, [facility] [address] [id number] [address] [place] [address], [place] [address] November, [facility] [address] [id number] [address] [place] [address], [place] [address] November, [facility] [address] [id number] [address] [place] [address], [place] [address] November, [facility] [address] [id number] [address] [place] [address], [place] [address] Oct, [facility] [address] [id number] [address] [place] [address], [place] [address] Oct, [facility] [address] [id number] [address] [place] [address], [place] [address] Oct, [facility] [address] [id number] [address] [place] [address], [place] [address] Sep, [facility] [address] [id number] [address] [place] [address], [place] [address] Sep, [facility] [address] [id number] [address] [place] [address], [place] [address] Aug, [facility] [address] [id number] [address] [place] [address], [place] [address] Aug, [facility] [address] [id number] [address] [place] [address], [place] [address] Aug, [facility] [address] [id number] [address] [place] [address], [place] [address] Aug, [facility] [address] [id number] [address] [place] [address], [place] [address] Jul, [facility] [address] [id number] [address] [place] [address], [place] [address] Jul, [facility] [address] [id number] [address] [place] [address], [place] [address] Jul, [facility] [address] [id number] [address] [place] [address], [place] [address] Jul, [facility] [address] [id number] [address] [place] [address], [place] [address] Jul, [facility] [address] [id number] [address] [place] [address], [place] [address] Jul, [facility] [address] [id number] [address] [place] [address], [place] [address] Jul, [facility] [address] [id number] [address] [place] [address], [place] [address] Jul, [facility] [address] [id number] [address] [place] [address], [place] [address] 30 Jun, 2011 [facility] [address] [id number] [address] [place] [address], [place] [address] Jun, [facility] [address] [id number] [address] [place] [address], [place] [address] Jun, [facility] [address] [id number] [address] [place] [address], [place] [address] 08 Jun, 2011 [facility] [address] [id number] [address] [place] [address], [place] [address] Jun, [facility] [address] [id number] [address] [place] [address], [place] [address] May, [facility] [address] [id number] [address] [place] [address], [place] [address] May, [facility] [address] [id number] [address] [place] [address], [place] [address] 17 May, 2011 [facility] [address] [id number] [address] [place] [address], [place] [address] 15 May, 2011 [facility] [address] [id number] [address] [place] [address], [place] [address] 08 May, 2011 [facility] [address] [id number] [address] [place] [address], [place] [address] 08 May, 2011 [facility] [address] [id number] [address] [place] [address], [place] [address] Apr, [facility] [address] [id number] [address] [place] [address] Apr, [facility] [address] [id number] [address] [place] [address] Apr, [facility] [address] [id number] [address] [place] [address] Feb, [facility] [address] [id number] [address] [place] [id number] Feb, [facility] [address] [id number] [address] [place] [id number] Oct, [facility] [address] [id number] [address] [place] [address] Jul, [facility] [address] [id number] [address] [place] [id number] Jul, [facility] [address] [id number] [address] [place] [id number] Jun, [facility] [address] [id number] [address] [place] [id number] May, [facility] [address] [id number] [address] [place] [id number] May, [facility] [address] [id number] [address] [place] [id number] May, [facility] [address] [id number] [address] [place] [id number] Apr, [facility] [address] [id number] [address] [place] [phone] Jan, [facility] [address] [id number] [address] [place] [id number] November, IMMUNIZATIONS No Known Immunizations SOCIAL HISTORY Never Assessed REASON FOR VISIT PLAN OF CARE VITAL SIGNS Height 70 in 2013-02-23 Weight 201.28 lbs 2013-02-23 Temperature 97.9 degrees Fahrenheit 2013-02-23 Heart Rate 88 bpm 2013-02-23 Respiratory Rate 18 2013-02-23 Blood pressure systolic 118 mmHg 2013-02-23 Blood pressure diastolic 82 mmHg 2013-02-23 MEDICATIONS Unknown Medications RESULTS No Results PROCEDURES [...]
--- OUTSIDE RECORDS SUMMARY | 2020-01-31 09:37 | XMS REPORT ---
Author Author Ivet BRISENO Y Organization [facility] Address [address] [place] [address] Care Team Providers Care [employer] Name Role Phone LINDY BRISENO Unavailable PROBLEMS Type Condition ICD9-CM Code PUG42-WZ Code Onset Dates Condition S tatus SNOMED Code Problem Osteoarthritis M19.90 Active 87425 5006 Problem Bilateral carotid artery disease I77.9 Active 918321303 Problem Stage 3 chronic kidney disease N18.3 Active 082224003 Problem Essential hypertension I10 Active 23278193 Problem Acquired hypothyroidism E03.9 Active 899043424 Problem GERD (gastroesophageal reflux disease) K21.9 Active 876876691 Problem Seasonal allergic rhinitis due to pollen J30.1 Active 19112079 Problem Schizo affective schizophrenia F25.0 Active 493581422 Problem Fibromyalgia M79.7 Active 4259674 05 Problem Vitamin D deficiency E55.9 Active 74959645 Problem Iron deficiency anemia, unspecified iron deficiency an emia type D50.9 Active 95035511 Problem Secondary hyperparathyroidism, not elsewhere classified E21.1 Active 51507427 ALLERGIES No Information ENCOUNTERS Encounter Location Date Diagnosis [address] [id number] [address] 07 Dec, 2019 Osteoarthritis M19.90 [facility] [address] [facility] [id number] [address] [place] [id number] November, Encounter for medication mon itoring Z51.[id number] [place] [phone] November, Encounter for medication mon itoring Z51.81 and Osteoarthritis M19.90 [facility] [address] [facility] [id number] [address] [place] [id number] November, Seasonal allergic rhinitis d ue to pollen J30.1 [facility] [address] [facility] [id number] [address] [place] [id number] 14 Oct, 2019 Lumbar radiculopathy M54.16 ; Fibromyalgia M79.7 ; Essential hypertension I10 and GERD (gastroesophageal reflux disease) K21.9 [facility] [address] [facility] [id number] [address] [place] [id number] 03 Oct, 2019 Osteoarthritis M19.90 [facility] [address] [facility] [id number] [address] [place] [id number] Sep, [facility] [address] [facility] [id number] [address] [place] [phone] Aug, Osteoarthritis M19.90 [facility] [address] [place] [id number] [address] [place] [phone] Jul, Osteoarthritis M19.90 [facility] [address] [place] [id number] [address] [place] [id number] Jun, Osteoarthritis M19.90 [facility] [address] [facility] [id number] [address] [place] [phone] Jun, Herpes zoster without compli cation B02.9 [facility] [address] [facility] [id number] [address] [place] [id number] May, Osteoarthritis M19.90 [facility] [address] [facility] [id number] [address] [place] [phone] May, [facility] [address] [facility] [id number] [address] [place] [phone] Apr, [facility] [address] [facility] [id number] [address] [place] [address] Mar, Osteoarthritis M19.90 [facility] [address] [facility] [id number] [address] [place] [phone] Mar, [facility] [address] [facility] [id number] [address] [place] [phone] Feb, Lumbago with sciatica, left side M54.42 ; Lumbago with sciatica, right side M54.41 and Other chronic pain G89.29 [facility] [address] [facility] [id number] [address] [place] [id number] Feb, Encounter for Medicare jesus wellness exam Z00.00 ; Schizo affective schizophrenia F25.0 ; Essential hypertension I10 ; GERD (gastroesophageal reflux disease) K21.9 ; Secondary hyperparathyroidism, not elsewhere classified E21.1 ; Idiopathic peripheral neuropathy G60.9 ; Stage 3 chronic kidney disease N18.3 ; Acquired hypothyroidism E03.9 ; Bilateral carotid artery disease I77.9 and Hypothyroidism E03.9 [facility] [address] [facility] [id number] [address] [place] [phone] Feb, Osteoarthritis M19.90 [facility] [address] [facility] [id number] [address] [place] [phone] Jan, Osteoarthritis M19.90 [facility] [address] [place] [id number] [address] [place] [phone] Jan, Osteoarthritis M19.90 [facility] [address] [facility] [id number] [address] [place] [phone] Dec, Acquired hypothyroidism E03. 9 [facility] [address] [facility] [id number] [address] [place] [phone] Dec, Fibromyalgia M79.7 ; Hypothy roidism E03.9 ; Essential hypertension I10 and Sensory loss R20.[address] [id number] [address] November, Osteoarthritis M19.90 [facility] [address] [facility] [id number] [address] [place] [phone] Oct, Osteoarthritis M19.90 [facility] [address] [facility] [id number] [address] [place] [phone] Oct, Sore throat J02.9 and Acute nasopharyngitis J00 [facility] [address] [facility] [id number] [address] [place] [phone] Sep, Osteoarthritis M19.90 [facility] [address] [place] [id number] [address] [place] [phone] Sep, Acute non-recurrent maxillar y sinusitis J01.00 [facility] [address] [facility] [id number] [address] [place] [phone] 18 Aug, 2018 Acute non-recurrent pansinus itis J01.40 [facility] [address] [place] [id number] [address] [place] [phone] Jul, Osteoarthritis M19.90 [facility] [address] [place] [id number] [address] [place] [id number] Jul, [facility] [address] [place] [id number] [address] [place] [phone] Apr, Osteoarthritis M19.90 [place] [address] [address] Apr, Fibromyalgia M79.7 ; Essenti al hypertension I10 ; Encounter for immunization Z23 ; Stage 3 chronic kidney disease N18.3 and Depression F32.9 [place] [address] [address] Dec, Fibromyalgia M79.7 ; Osteoar thritis M19.90 and Encounter for medication management Z79.899 [facility] [address] [address] November, Nausea and vomiting, intract ability of vomiting not specified, unspecified vomiting type R11.2 and Dizziness R42 [facility] [address] [place] [id number] [address] [place] [phone] November, Fibromyalgia M79.7 [place] [address] [place] [id number] [address] [place] [phone] November, Medicare annual wellness vis it, initial Z00.00 ; Anxiety F41.9 ; Depression F32.9 ; Stage 3 chronic kidney disease N18.3 ; Fibromyalgia M79.7 ; Essential hypertension I10 ; Secondary hyperparathyroidism, not elsewhere classified E21.1 ; Osteoarthritis M19.90 ; Hypothyroidism E03.9 and Encounter for immunization Z23 [facility] [address] [address] Oct, [place] [address] [address] Oct, Sebaceous cyst L72.3 [place] [address] [address] Sep, Low back pain, unspecified b ack pain laterality, unspecified chronicity, with sciatica presence unspecified M54.5 and Secondary hyperparathyroidism, not elsewhere classified E21.1 [place] [address] [address] Sep, Fibromyalgia M79.7 [place] [address] [address] Sep, Fibromyalgia M79.7 ; Plantar fasciitis, bilateral M72.2 ; Essential hypertension I10 ; Depression F32.9 and Epidermoid cyst L72.0 [place] [address] [address] Jul, [place] [address] [address] Jul, Fibromyalgia M79.7 ; Iron de ficiency anemia, unspecified iron deficiency anemia type D50.9 and Acute nasopharyngitis J00 [facility] [address] [address] Jun, Sore throat J02.9 and Acute serous otitis media of left ear, recurrence not specified H65.02 [facility] [address] [address] Jun, Hypothyroidism E03.9 [facility] [address] [address] Jun, [place] [address] [address] Jun, Hypothyroidism E03.9 ; Essen tial hypertension I10 and Osteoarthritis M19.90 [place] [address] [address] May, [place] [address] [address] May, [place] [address] [address] Feb, [place] [address] [address] Feb, Leonela-menopausal N95.1 and To bacco use Z72.0 [place] [address] [address] Jan, [place] [address] [address] Jan, Osteoarthritis M19.90 ; Bila teral carotid artery disease I77.9 ; Raynauds syndrome I73.00 ; Essential hypertension I10 ; Allergic rhinitis J30.9 ; Stage 3 chronic kidney disease N18.3 ; Fibromyalgia M79.7 ; Hypothyroidism E03.9 ; GERD (gastroesophageal reflux disease) K21.9 and Vitamin D deficiency E55.9 [place] [address] [address] Dec, Raynauds syndrome I73.00 ; P lantar fascial fibromatosis M72.2 ; Osteoarthritis M19.90 and Fibromyalgia M79.7 [place] [address] [address] Dec, [place] [address] [address] Dec, [place] [address] [address] Oct, Function kidney decreased N2 8.9 [facility] [address] [id number] [address] [place] [id number] Oct, Dental examination Z01.20 [facility] [address] [id number] [address] [place] [phone] Oct, Essential hypertension I10 a nd Function kidney decreased N28.9 [facility] [address] [id number] [address] [place] [id number] Oct, Dental examination Z01.20 [facility] [address] [id number] [address] [place] [phone] Oct, [facility] [address] [facility] [id number] [address] [place] [phone] 24 Sep, 2016 Other specified disorders in volving the immune mechanism D89.89 and Schizo affective schizophrenia F25.0 [facility] [address] [facility] [id number] [address] [place] [phone] Sep, Schizo affective schizophren ia F25.0 [facility] [address] [id number] [address] [place] [phone] 16 Sep, 2016 Eustachian tube dysfunction, bilateral H69.83 [facility] [address] [id number] [address] [place] [phone] 15 Sep, 2016 [facility] [address] [id number] [address] [place] [phone] 14 Sep, 2016 [facility] [address] [id number] [address] [place] [phone] 14 Sep, 2016 [facility] [address] [id number] [address] [place] [phone] 13 Sep, 2016 Eustachian tube dysfunction, bilateral H69.83 [facility] [address] [facility] [id number] [address] [place] [phone] 09 Sep, 2016 Allergic rhinitis J30.9 ; Es sential hypertension I10 ; Hypothyroidism E03.9 and Schizo affective schizophrenia F25.0 [facility] [address] [place] [address] Jul, Eustachian tube dysfunction, bilateral H69.83 and Visit for TB skin test Z11.1 [facility] [address] [place] [address] Jul, Subacute pansinusitis J01.40 [facility] [address] [place] [id number] [address] [place] [address] Jun, Schizo affective schizophren ia F25.0 ; Depression F32.9 ; Allergic rhinitis J30.9 ; Raynauds syndrome I73.00 ; Essential hypertension I10 ; Slow transit constipation K59.01 ; GERD (gastroesophageal reflux disease) K21.9 ; Hypothyroidism E03.9 ; Nicotine addiction F17.200 ; Other viral agents as the cause of diseases classified elsewhere B97.89 ; Acute upper respiratory infection, unspecified J06.9 and Osteoarthritis M19.90 [facility] [address] [place] [id number] [address] [place] [address] Jun, Allergic rhinitis J30.9 and GERD (gastroesophageal reflux disease) K21.9 [facility] [address] [address] May, [place] [address] [address] Mar, Schizo affective schizophren ia F25.0 [facility] [address] [place] [id number] [address] [place] [phone] Mar, Schizo affective schizophren ia F25.0 [facility] [address] [place] [id number] [address] [place] [phone] 15 Mar, 2016 Schizo affective schizophren ia F25.0 [place] [address] [place] [id number] [address] [place] [address] Mar, Acute non-recurrent maxillar y sinusitis J01.00 [facility] [address] [place] [id number] [address] [place] [address] Feb, Schizo affective schizophren ia F25.0 [place] [address] [facility] [id number] [address] [place] [address] Feb, Contact dermatitis and eczem a L25.9 [place] [address] [facility] [id number] [address] [place] [phone] Jan, [place] [address] [address] Jan, Schizo affective schizophren ia F25.0 ; Slow transit constipation K59.01 ; Essential hypertension I10 ; GERD (gastroesophageal reflux disease) K21.9 ; Hypothyroidism E03.9 ; Osteoarthritis M19.90 ; Low back pain, unspecified back pain laterality, unspecified chronicity, with sciatica presence unspecified M54.5 and Bilateral carotid artery disease I77.9 [place] [address] [place] [id number] [address] [place] [address] Oct, [place] [address] [place] [id number] [address] [place] [address] Sep, Hypothyroid E03.9 [place] [address] [address] Sep, Schizo affective schizophren ia F25.0 ; Depression F32.9 ; Anxiety F41.9 ; Allergic rhinitis J30.9 ; Raynauds syndrome I73.00 ; Insomnia G47.00 ; Essential hypertension I10 ; GERD (gastroesophageal reflux disease) K21.9 ; Hypothyroidism E03.9 and Vitamin D deficiency E55.9 [place] [address] [facility] [id number] [address] [place] [phone] Sep, [place] [address] [address] Sep, [place] [address] [place] [id number] [address] [place] [address] Aug, Allergic rhinitis J30.9 ; De pression F32.9 ; Anxiety F41.9 ; Raynauds syndrome I73.00 ; Insomnia G47.00 and GERD (gastroesophageal reflux disease) K21.9 [facility] [address] [place] [address] Aug, MONICA (secretory otitis media) H65.90 and Raynauds syndrome I73.00 [facility] [address] [place] [id number] [address] [place] [address] Jul, Acute otitis externa of both ears, unspecified type H60.503 [facility] [address] [place] [id number] [address] [place] [address] Jun, [place] [address] [address] Jun, Essential hypertension I10 ; Allergic rhinitis J30.9 ; Hypothyroidism E03.9 and Osteoarthritis M19.90 [place] [address] [address] Jun, Routine adult health mainten ance Z00.00 ; Hypothyroidism E03.9 ; Essential hypertension I10 ; Insomnia G47.00 ; Nicotine addiction F17.200 ; Raynauds syndrome I73.00 ; GERD (gastroesophageal reflux disease) K21.9 ; Allergic rhinitis J30.9 ; Anxiety F41.9 ; Depression F32.9 and Schizo affective schizophrenia F25.0 [place] [address] [place] [id number] [address] [place] [address] May, Upper respiratory tract infe ction, unspecified type J06.9 [place] [address] [place] [id number] [address] [place] [address] Mar, [facility] [address] [place] [id number] [place] [id number] Mar, [place] [address] [place] [id number] [address] [place] [address] Mar, [place] [address] [place] [id number] [address] [place] [address] Mar, [place] [address] [id number] [address] [place] [address], [place] [address] Feb, Jaw pain 784.92 and Environm ental and seasonal allergies 477.8 [facility] [address] [id number] [address] [place] [address], [place] [address] Feb, [facility] [address] [id number] [address] [place] [address], [place] [address] Oct, [facility] [address] [id number] [address] [place] [address], [place] [address] Oct, [facility] [address] [id number] [address] [place] [address], [place] [address] Oct, [facility] [address] [id number] [address] [place] [address], [place] [address] Oct, [facility] [address] [id number] [address] [place] [address], [place] [address] Sep, [facility] [address] [id number] [address] [place] [address], [place] [address] Sep, [facility] [address] [id number] [address] [place] [address], [place] [address] Jul, [facility] [address] [id number] [address] [place] [address], [place] [address] Jul, [facility] [address] [id number] [address] [place] [phone] Jul, [facility] [address] [id number] [address] [place] [phone] Jul, [facility] [address] [id number] [address] [place] [phone] Jul, [facility] [address] [id number] [address] [place] [address], [place] [address] Jul, [facility] [address] [id number] [address] [place] [address], [place] [address] Jul, [facility] [address] [id number] [address] [place] [address], [place] [address] 31 Jun, 2014 [facility] [address] [id number] [address] [place] [address], [place] [address] 31 Jun, 2014 [facility] [address] [id number] [address] [place] [address], [place] [address] 22 Jun, 2014 [facility] [address] [id number] [address] [place] [address], [place] [address] 18 Jun, 2014 [facility] [address] [id number] [address] [place] [address], [place] [address] 17 Jun, 2014 [facility] [address] [id number] [address] [place] [address], [place] [address] 17 Jun, 2014 [facility] [address] [id number] [address] [place] [address], [place] [address] 16 Jun, 2014 [facility] [address] [id number] [address] [place] [address], [place] [address] 16 Jun, 2014 [facility] [address] [id number] [address] [place] [address], [place] [address] 30 Apr, 2014 [facility] [address] [id number] [address] [place] [address], [place] [address] 30 Apr, 2014 [facility] [address] [id number] [address] [place] [address], [place] [address] 17 Mar, 2014 [facility] [address] [id number] [address] [place] [address], [place] [address] 17 Mar, 2014 [facility] [address] [id number] [address] [place] [address], [place] [address] 03 Mar, 2014 [facility] [address] [id number] [address] [place] [address], [place] [address] 03 Mar, 2014 [facility] [address] [id number] [address] [place] [address], [place] [address] 16 Jan, 2014 [facility] [address] [id number] [address] [place] [address], [place] [address] Jan, [facility] [address] [id number] [facility] [place] [address] Oct, [facility] [address] [id number] [address] [place] [address], [place] [address] Oct, [facility] [address] [id number] [facility] [place] [address] Sep, [facility] [place] [facility] [address] [id number] [address] [place] [address], [place] [address] Sep, [facility] [address] [id number] [address] [place] [address], [place] [address] Sep, [facility] [address] [id number] [address] [place] [address], [place] [address] Sep, [facility] [address] [id number] [address] [place] [address], [place] [address] Sep, [facility] [place] [facility] [address] [id number] [address] [place] [address], [place] [address] Sep, [facility] [address] [id number] [address] [place] [address], [place] [address] Aug, [facility] [place] [facility] [address] [id number] [address] [place] [address], [place] [address] Aug, [facility] [address] [id number] [address] [place] [address], [place] [address] Jul, [facility] [place] [address] [id number] [address] [place] [address], [place] [address] Jul, [facility] [place] [facility] [address] [id number] [address] [place] [address], [place] [address] Jul, [facility] [place] [facility] [address] [id number] [address] [place] [address], [place] [address] Jul, [facility] [place] [facility] [address] [id number] [address] [place] [address], [place] [address] Jun, [facility] [place] [facility] [address] [id number] [address] [place] [address] Jun, [facility] [address] [id number] [address] [place] [address], [place] [address] May, [facility] [address] [id number] [address] [place] [address], [place] [address] May, [facility] [address] [id number] [address] [place] [address], [place] [address] Apr, [facility] [address] [id number] [address] [place] [address], [place] [address] Apr, [facility] [address] [id number] [address] [place] [address], [place] [address] Apr, [facility] [facility] [address] [id number] [address] [place] [address], [place] [address] Apr, [facility] [address] [id number] [address] [place] [address], [place] [id number] Apr, [facility] [address] [id number] [address] [place] [address], [place] [id number] Apr, [facility] [address] [id number] [address] [place] [address], [place] [id number] 24 Mar, 2013 [facility] [address] [id number] [address] [place] [address], [place] [id number] Mar, [facility] [address] [id number] [address] [place] [address], [place] [address] Mar, [facility] [address] [id number] [address] [place] [address], [place] [address] Mar, [facility] [address] [id number] [address] [place] [address], [place] [address] Mar, [facility] [address] [id number] [address] [place] [address], [place] [address] Feb, [facility] [address] [id number] [address] [place] [address], [place] [address] Feb, [facility] [address] [id number] [address] [place] [address], [place] [id number] Feb, [facility] [address] [id number] [address] [place] [address], [place] [address] Feb, [facility] [address] [id number] [address] [place] [address], [place] [address] Jan, [facility] [address] [id number] [address] [place] [address], [place] [address] Jan, [facility] [address] [id number] [address] [place] [address], [place] [address] 16 Jan, 2013 [facility] [address] [id number] [address] [place] [address], [place] [address] Jan, [facility] [address] [id number] [address] [place] [address], [place] [address] Jan, [facility] [address] [id number] [address] [place] [address], [place] [address] Jan, [facility] [address] [id number] [address] [place] [address], [place] [address] Dec, [facility] [address] [id number] [address] [place] [address], [place] [address] Dec, [facility] [address] [id number] [address] [place] [address], [place] [address] Dec, [facility] [address] [id number] [address] [place] [address], [place] [id number] 14 Dec, 2012 [facility] [address] [id number] [address] [place] [address], [place] [address] Dec, [facility] [address] [id number] [address] [place] [address], [place] [id number] 12 Dec, 2012 [facility] [address] [id number] [address] [place] [address], [place] [address] Dec, [facility] [address] [id number] [address] [place] [address], [place] [address] Dec, [facility] [address] [id number] [address] [place] [address], [place] [address] Dec, [facility] [address] [id number] [address] [place] [address], [place] [address] Dec, [facility] [address] [id number] [address] [place] [address], [place] [address] November, [facility] [address] [id number] [address] [place] [address], [place] [address] November, [facility] [address] [id number] [address] [place] [address], [place] [address] November, [facility] [address] [id number] [address] [place] [address], [place] [address] November, [facility] [address] [id number] [address] [place] [address], [place] [address] November, [facility] [address] [id number] [address] [place] [address], [place] [address] Oct, [facility] [address] [id number] [address] [place] [address], [place] [address] Oct, [facility] [address] [id number] [address] [place] [address], [place] [address] Oct, [facility] [address] [id number] [address] [place] [address], [place] [address] Oct, [facility] [address] [id number] [address] [place] [address], [place] [address] Oct, [facility] [address] [id number] [address] [place] [address], [place] [address] Sep, [facility] [address] [id number] [address] [place] [address], [place] [address] Sep, [facility] [address] [id number] [address] [place] [address], [place] [address] Sep, [facility] [address] [id number] [address] [place] [address], [place] [id number] 05 Sep, 2012 [facility] [address] [id number] [address] [place] [address], [place] [address] 26 Aug, 2012 [facility] [address] [id number] [address] [place] [address], [place] [address] 18 Aug, 2012 [facility] [address] [id number] [address] [place] [address], [place] [address] 18 Aug, 2012 [facility] [address] [id number] [address] [place] [address], [place] [id number] 15 Aug, 2012 [facility] [address] [id number] [address] [place] [address], [place] [address] Jun, [facility] [address] [id number] [address] [place] [address], [place] [address] Jun, [facility] [address] [id number] [address] [place] [address], [place] [address] Jun, [facility] [address] [id number] [address] [place] [address], [place] [address] Jun, [facility] [address] [id number] [address] [place] [address], [place] [address] Jun, [facility] [address] [id number] [address] [place] [address], [place] [address] Jun, [facility] [address] [id number] [address] [place] [address], [place] [address] Jun, [facility] [address] [id number] [address] [place] [address], [place] [address] Jun, [facility] [address] [id number] [address] [place] [address], [place] [address] Jun, [facility] [address] [id number] [address] [place] [address], [place] [address] Jun, [facility] [address] [id number] [address] [place] [address], [place] [address] May, [facility] [address] [id number] [address] [place] [address], [place] [address] May, [facility] [address] [id number] [address] [place] [address], [place] [address] May, [facility] [address] [id number] [address] [place] [address], [place] [address] May, [facility] [address] [id number] [address] [place] [address], [place] [address] 26 May, 2012 [facility] [address] [id number] [address] [place] [address], [place] [address] 16 May, 2012 [facility] [address] [id number] [address] [place] [address], [place] [address] 16 May, 2012 [facility] [address] [id number] [address] [place] [address], [place] [id number] 14 May, 2012 [facility] [address] [id number] [address] [place] [address], [place] [address] 14 May, 2012 [facility] [address] [id number] [address] [place] [address], [place] [address] 30 Apr, 2012 [facility] [address] [id number] [address] [place] [address], [place] [address] 30 Apr, 2012 [facility] [address] [id number] [address] [place] [address], [place] [address] 17 Apr, 2012 [facility] [address] [id number] [address] [place] [id number] 17 Apr, 2012 [facility] [address] [id number] [address] [place] [address], [place] [address] 09 Apr, 2012 [facility] [address] [id number] [address] [place] [address], [place] [address] 18 Mar, 2012 [facility] [address] [id number] [address] [place] [address], [place] [id number] 17 Mar, 2012 [facility] [address] [id number] [address] [place] [address], [place] [id number] 07 Mar, 2012 [facility] [address] [id number] [address] [place] [address], [place] [address] Feb, [facility] [address] [id number] [address] [place] [address], [place] [address] Feb, [facility] [address] [id number] [address] [place] [address], [place] [address] Feb, [facility] [address] [id number] [address] [place] [address], [place] [address] Feb, [facility] [address] [id number] [address] [place] [address], [place] [address] Jan, [facility] [address] [id number] [address] [place] [address], [place] [id number] Jan, [facility] [address] [id number] [address] [place] [address], [place] [address] Jan, [facility] [address] [id number] [address] [place] [address], [place] [address] Jan, [facility] [address] [id number] [address] [place] [address], [place] [address] Jan, [facility] [address] [id number] [address] [place] [address], [place] [id number] Jan, [facility] [address] [id number] [address] [place] [address], [place] [address] Dec, [facility] [address] [id number] [address] [place] [address], [place] [address] Dec, [facility] [address] [id number] [address] [place] [address], [place] [address] Dec, [facility] [address] [id number] [address] [place] [address], [place] [address] November, [facility] [address] [id number] [address] [place] [address], [place] [address] November, [facility] [address] [id number] [address] [place] [address], [place] [address] November, [facility] [address] [id number] [address] [place] [address], [place] [id number] November, [facility] [address] [id number] [address] [place] [address], [place] [address] Oct, [facility] [address] [id number] [address] [place] [address], [place] [address] Oct, [facility] [address] [id number] [address] [place] [address], [place] [address] Oct, [facility] [address] [id number] [address] [place] [address], [place] [address] Sep, [facility] [address] [id number] [address] [place] [address], [place] [address] Sep, [facility] [address] [id number] [address] [place] [address], [place] [address] Aug, [facility] [address] [id number] [address] [place] [address], [place] [address] Aug, [facility] [address] [id number] [address] [place] [address], [place] [address] Aug, [facility] [address] [id number] [address] [place] [address], [place] [address] Aug, [facility] [address] [id number] [address] [place] [address], [place] [address] Jul, [facility] [address] [id number] [address] [place] [address], [place] [address] Jul, [facility] [address] [id number] [address] [place] [address], [place] [address] Jul, [facility] [address] [id number] [address] [place] [address], [place] [address] Jul, [facility] [address] [id number] [address] [place] [address], [place] [address] Jul, [facility] [address] [id number] [address] [place] [address], [place] [address] Jul, [facility] [address] [id number] [address] [place] [address], [place] [address] Jul, [facility] [address] [id number] [address] [place] [address], [place] [address] Jul, [facility] [address] [id number] [address] [place] [address], [place] [id number] 30 Jun, 2011 [facility] [address] [id number] [address] [place] [address], [place] [address] Jun, [facility] [address] [id number] [address] [place] [address], [place] [address] Jun, [facility] [address] [id number] [address] [place] [address], [place] [address] 08 Jun, 2011 [facility] [address] [id number] [address] [place] [address], [place] [address] Jun, [facility] [address] [id number] [address] [place] [address], [place] [address] May, [facility] [address] [id number] [address] [place] [address], [place] [address] May, [facility] [address] [id number] [address] [place] [address], [place] [address] 17 May, 2011 [facility] [address] [id number] [address] [place] [address], [place] [id number] 15 May, 2011 [facility] [address] [id number] [address] [place] [address], [place] [address] 08 May, 2011 [facility] [address] [id number] [address] [place] [address], [place] [address] 08 May, 2011 [facility] [address] [id number] [address] [place] [address], [place] [address] Apr, [facility] [address] [id number] [address] [place] [id number] Apr, [facility] [address] [id number] [address] [place] [id number] Apr, [facility] [address] [id number] [address] [place] [id number] Feb, [facility] [address] [id number] [address] [place] [id number] Feb, [facility] [address] [id number] [address] [place] [id number] Oct, [facility] [address] [id number] [address] [place] [id number] Jul, [facility] [address] [id number] [address] [place] [id number] Jul, [facility] [address] [id number] [address] [place] [id number] Jun, [facility] [address] [id number] [address] [place] [id number] May, [facility] [address] [id number] [address] [place] [id number] May, [facility] [address] [id number] [address] [place] [id number] May, [facility] [address] [id number] [address] [place] [id number] Apr, [facility] [address] [id number] [address] [place] [id number] Jan, [facility] [address] [id number] [address] [place] [id number] November, IMMUNIZATIONS No Known Immunizations SOCIAL HISTORY [...]
[2020-01-31 09:38] LABS: BILIRUBIN,TOTAL 0.2 MG/DL (0.1-1.0)
--- OUTSIDE RECORDS SUMMARY | 2020-01-31 09:38 | XMS REPORT ---
Author Author Ivet Sanches [facility] Address [address] [place] [address] Care Team Providers Care Mica Patcher Name Role Phone PAUL Sanches Unavailable PROBLEMS Type Condition ICD9-CM Code EHD81-VU Code Onset Dates Condition S tatus SNOMED Code Problem Osteoarthritis M19.90 Active 13301 5006 Problem Bilateral carotid artery disease I77.9 Active 907635427 Problem Stage 3 chronic kidney disease N18.3 Active 487062856 Problem Essential hypertension I10 Active 21394372 Problem Acquired hypothyroidism E03.9 Active 425383400 Problem GERD (gastroesophageal reflux disease) K21.9 Active 723743278 Problem Seasonal allergic rhinitis due to pollen J30.1 Active 40235312 Problem Schizo affective schizophrenia F25.0 Active 482558306 Problem Fibromyalgia M79.7 Active 5773777 05 Problem Vitamin D deficiency E55.9 Active 26104656 Problem Iron deficiency anemia, unspecified iron deficiency an emia type D50.9 Active 92762566 Problem Secondary hyperparathyroidism, not elsewhere classified E21.1 Active 58586245 ALLERGIES No Information ENCOUNTERS Encounter Location Date Diagnosis [address] [id number] [address] 07 Dec, 2019 Osteoarthritis M19.90 [facility], [place] [address] [facility] [id number] [address] [place] [address] November, Encounter for medication mon itoring Z51.[id number] [place] [address] November, Encounter for medication mon itoring Z51.81 and Osteoarthritis M19.90 [facility] [address] [facility] [id number] [address] [place] [address] November, Seasonal allergic rhinitis d ue to pollen J30.1 [facility] [place] [address] [id number] [address] [place] [address] 14 Oct, 2019 Lumbar radiculopathy M54.16 ; Fibromyalgia M79.7 ; Essential hypertension I10 and GERD (gastroesophageal reflux disease) K21.9 [facility] [place] [address] [id number] [address] [place] [address] 03 Oct, 2019 Osteoarthritis M19.90 [facility] [place] [address] [facility] [id number] [address] [place] [address] Sep, [facility] [place] [address] [facility] [id number] [address] [place] [address] Aug, Osteoarthritis M19.90 [facility] [place] [address] [facility] [id number] [address] [place] [address] Jul, Osteoarthritis M19.90 [facility] [place] [address] [facility] [id number] [address] [place] [address] Jun, Osteoarthritis M19.90 [facility] [address] [facility] [id number] [address] [place] [address] Jun, Herpes zoster without compli cation B02.9 [facility] [place] [address] [facility] [id number] [address] [place] [address] May, Osteoarthritis M19.90 [facility] [place] [address] [facility] [id number] [address] [place] [address] May, [facility] [place] [address] [facility] [id number] [address] [place] [address] Apr, [facility] [place] [address] [facility] [id number] [address] [place] [address] Mar, Osteoarthritis M19.90 [facility] [place] [address] [facility] [id number] [address] [place] [address] Mar, [facility] [place] [address] [facility] [id number] [address] [place] [address] Feb, Lumbago with sciatica, left side M54.42 ; Lumbago with sciatica, right side M54.41 and Other chronic pain G89.29 [facility] [place] [address] [facility] [id number] [address] [place] [address] Feb, Encounter for Medicare jesus costello wellness exam Z00.00 ; Schizo affective schizophrenia F25.0 ; Essential hypertension I10 ; GERD (gastroesophageal reflux disease) K21.9 ; Secondary hyperparathyroidism, not elsewhere classified E21.1 ; Idiopathic peripheral neuropathy G60.9 ; Stage 3 chronic kidney disease N18.3 ; Acquired hypothyroidism E03.9 ; Bilateral carotid artery disease I77.9 and Hypothyroidism E03.9 [facility] [place] [address] [facility] [id number] [address] [place] [address] Feb, Osteoarthritis M19.90 [facility] [place] [address] [facility] [id number] [address] [place] [address] Jan, Osteoarthritis M19.90 [facility] [place] [address] [place] [id number] [address] [place] [address] Jan, Osteoarthritis M19.90 [facility] [place] [address] [facility] [id number] [address] [place] [address] Dec, Acquired hypothyroidism E03. 9 [facility] [place] [address] [facility] [id number] [address] [place] [address] Dec, Fibromyalgia M79.7 ; Hypothy roidism E03.9 ; Essential hypertension I10 and Sensory loss R20.[id number] [place] [address] November, Osteoarthritis M19.90 [facility] [place] [address] [facility] [id number] [address] [place] [address] Oct, Osteoarthritis M19.90 [facility] [address] [facility] [id number] [address] [place] [address] Oct, Sore throat J02.9 and Acute nasopharyngitis J00 [facility] [place] [address] [facility] [id number] [address] [place] [address] Sep, Osteoarthritis M19.90 [facility] [address] [place] [id number] [address] [place] [address] Sep, Acute non-recurrent maxillar y sinusitis J01.00 [facility] [address] [place] [id number] [address] [place] [address] Aug, Acute non-recurrent pansinus itis J01.40 [place] [address] [place] [id number] [address] [place] [address] Jul, Osteoarthritis M19.90 [place] [address] [address] Jul, [place] [address] [address] Apr, Osteoarthritis M19.90 [place] [address] [address] Apr, Fibromyalgia M79.7 ; Essenti al hypertension I10 ; Encounter for immunization Z23 ; Stage 3 chronic kidney disease N18.3 and Depression F32.9 [place] [address] [address] Dec, Fibromyalgia M79.7 ; Osteoar thritis M19.90 and Encounter for medication management Z79.899 [facility] [address] [address] November, Nausea and vomiting, intract ability of vomiting not specified, unspecified vomiting type R11.2 and Dizziness R42 [facility] [place] [address] [place] [id number] [address] [place] [address] November, Fibromyalgia M79.7 [place] [address] [address] November, Medicare annual wellness vis it, initial Z00.00 ; Anxiety F41.9 ; Depression F32.9 ; Stage 3 chronic kidney disease N18.3 ; Fibromyalgia M79.7 ; Essential hypertension I10 ; Secondary hyperparathyroidism, not elsewhere classified E21.1 ; Osteoarthritis M19.90 ; Hypothyroidism E03.9 and Encounter for immunization Z23 [place] [address] [address] Oct, [place] [address] [address] Oct, Sebaceous cyst L72.3 [place] [address] [address] Sep, Low back pain, unspecified b ack pain laterality, unspecified chronicity, with sciatica presence unspecified M54.5 and Secondary hyperparathyroidism, not elsewhere classified E21.1 [place] [address] [address] Sep, Fibromyalgia M79.7 [place] [address] [address] Sep, Fibromyalgia M79.7 ; Plantar fasciitis, bilateral M72.2 ; Essential hypertension I10 ; Depression F32.9 and Epidermoid cyst L72.0 [place] [address] [address] Jul, [place] [address] [address] Jul, Fibromyalgia M79.7 ; Iron de ficiency anemia, unspecified iron deficiency anemia type D50.9 and Acute nasopharyngitis J00 [facility] [address] [address] Jun, Sore throat J02.9 and Acute serous otitis media of left ear, recurrence not specified H65.02 [place] [address] [address] Jun, Hypothyroidism E03.9 [place] [address] [address] Jun, [place] [address] [address] Jun, Hypothyroidism E03.9 ; Essen tial hypertension I10 and Osteoarthritis M19.90 [place] [address] [address] May, [place] [address] [address] May, [place] [address] [address] Feb, [place] [address] [address] Feb, Leonela-menopausal N95.1 and To bacco use Z72.0 [place] [address] [address] Jan, [place] [address] [address] Jan, Osteoarthritis M19.90 ; Bila teral carotid artery disease I77.9 ; Raynauds syndrome I73.00 ; Essential hypertension I10 ; Allergic rhinitis J30.9 ; Stage 3 chronic kidney disease N18.3 ; Fibromyalgia M79.7 ; Hypothyroidism E03.9 ; GERD (gastroesophageal reflux disease) K21.9 and Vitamin D deficiency E55.9 [place] [address] [address] Dec, Raynauds syndrome I73.00 ; P lantar fascial fibromatosis M72.2 ; Osteoarthritis M19.90 and Fibromyalgia M79.7 [place] [address] [address] Dec, [place] [address] [address] Dec, [place] [address] [address] Oct, Function kidney decreased N2 8.9 [facility] [address] [id number] [address] [place] [id number] 19 Oct, 2016 Dental examination Z01.20 [facility] [place] [address] [id number] [address] [place] [address] 18 Oct, 2016 Essential hypertension I10 a nd Function kidney decreased N28.9 [facility] [address] [id number] [address] [place] [id number] 04 Oct, 2016 Dental examination Z01.20 [facility] [place] [address] [id number] [address] [place] [address] 03 Oct, 2016 [facility] [place] [address] [facility] [id number] [address] [place] [address] 24 Sep, 2016 Other specified disorders in volving the immune mechanism D89.89 and Schizo affective schizophrenia F25.0 [facility] [place] [address] [facility] [id number] [address] [place] [address] Sep, Schizo affective schizophren ia F25.0 [facility] [place] [address] [id number] [address] [place] [address] 16 Sep, 2016 Eustachian tube dysfunction, bilateral H69.83 [facility] [place] [address] [facility] [id number] [address] [place] [address] 15 Sep, 2016 [facility] [place] [address] [facility] [id number] [address] [place] [address] 14 Sep, 2016 [facility] [place] [address] [facility] [id number] [address] [place] [address] 14 Sep, 2016 [facility] [place] [address] [facility] [id number] [address] [place] [address] 13 Sep, 2016 Eustachian tube dysfunction, bilateral H69.83 [facility] [place] [address] [facility] [id number] [address] [place] [address] 09 Sep, 2016 Allergic rhinitis J30.9 ; Es sential hypertension I10 ; Hypothyroidism E03.9 and Schizo affective schizophrenia F25.0 [facility] [place] [address] [address] Jul, Eustachian tube dysfunction, bilateral H69.83 and Visit for TB skin test Z11.1 [facility] [address] [address] Jul, Subacute pansinusitis J01.40 [facility] [place] [address] [address] Jun, Schizo affective schizophren ia F25.0 ; Depression F32.9 ; Allergic rhinitis J30.9 ; Raynauds syndrome I73.00 ; Essential hypertension I10 ; Slow transit constipation K59.01 ; GERD (gastroesophageal reflux disease) K21.9 ; Hypothyroidism E03.9 ; Nicotine addiction F17.200 ; Other viral agents as the cause of diseases classified elsewhere B97.89 ; Acute upper respiratory infection, unspecified J06.9 and Osteoarthritis M19.90 [facility] [place] [address] [address] Jun, Allergic rhinitis J30.9 and GERD (gastroesophageal reflux disease) K21.9 [place] [address] [address] May, [place] [address] [address] Mar, Schizo affective schizophren ia F25.0 [facility] [place] [address] [address] Mar, Schizo affective schizophren ia F25.0 [place] [address] [address] 15 Mar, 2016 Schizo affective schizophren ia F25.0 [place] [address] [address] Mar, Acute non-recurrent maxillar y sinusitis J01.00 [place] [address] [address] Feb, Schizo affective schizophren ia F25.0 [place] [address] [place] [id number] [address] [place] [address] Feb, Contact dermatitis and eczem a L25.9 [place] [address] [facility] [id number] [address] [place] [address] Jan, [place] [address] [place] [id number] [place] [address] Jan, Schizo affective schizophren ia F25.0 ; Slow transit constipation K59.01 ; Essential hypertension I10 ; GERD (gastroesophageal reflux disease) K21.9 ; Hypothyroidism E03.9 ; Osteoarthritis M19.90 ; Low back pain, unspecified back pain laterality, unspecified chronicity, with sciatica presence unspecified M54.5 and Bilateral carotid artery disease I77.9 [place] [address] [address] Oct, [place] [address] [address] Sep, Hypothyroid E03.9 [place] [address] [address] Sep, Schizo affective schizophren ia F25.0 ; Depression F32.9 ; Anxiety F41.9 ; Allergic rhinitis J30.9 ; Raynauds syndrome I73.00 ; Insomnia G47.00 ; Essential hypertension I10 ; GERD (gastroesophageal reflux disease) K21.9 ; Hypothyroidism E03.9 and Vitamin D deficiency E55.9 [place] [address] [place] [id number] [address] [place] [address] Sep, [place] [address] [place] [id number] [place] [address] Sep, [place] [address] [place] [id number] [address] [place] [address] Aug, Allergic rhinitis J30.9 ; De pression F32.9 ; Anxiety F41.9 ; Raynauds syndrome I73.00 ; Insomnia G47.00 and GERD (gastroesophageal reflux disease) K21.9 [facility] [place] [address] [place] [address] Aug, MONICA (secretory otitis media) H65.90 and Raynauds syndrome I73.00 [facility] [address] [place] [address] Jul, Acute otitis externa of both ears, unspecified type H60.503 [facility] [place] [address] [place] [id number] [address] [place] [address] Jun, [place] [address] [address] Jun, Essential hypertension I10 ; Allergic rhinitis J30.9 ; Hypothyroidism E03.9 and Osteoarthritis M19.90 [place] [address] [address] Jun, Routine adult health mainten ance Z00.00 ; Hypothyroidism E03.9 ; Essential hypertension I10 ; Insomnia G47.00 ; Nicotine addiction F17.200 ; Raynauds syndrome I73.00 ; GERD (gastroesophageal reflux disease) K21.9 ; Allergic rhinitis J30.9 ; Anxiety F41.9 ; Depression F32.9 and Schizo affective schizophrenia F25.0 [place] [address] [place] [id number] [place] [address] May, Upper respiratory tract infe ction, unspecified type J06.9 [facility] [place] [address] [place] [address] Mar, [facility] [address] [id number] [place] [id number] Mar, [place] [address] [place] [id number] [address] [place] [address] Mar, [place] [address] [place] [id number] [address] [place] [address] Mar, [facility] [place] [address] [place] [address], [place] [address] Feb, Jaw pain 784.92 and Environm ental and seasonal allergies 477.8 [facility] [address] [id number] [address] [place] [address], [place] [address] Feb, [facility] [address] [id number] [address] [place] [address], [place] [address] Oct, [facility] [address] [id number] [address] [place] [address], [place] [address] Oct, [facility] [address] [id number] [address] [place] [address], [place] [address] Oct, [facility] [address] [id number] [address] [place] [address], [place] [address] Oct, [facility] [address] [id number] [address] [place] [address], [place] [address] Sep, [facility] [address] [id number] [address] [place] [address], [place] [address] Sep, [facility] [address] [id number] [address] [place] [address], [place] [address] Jul, [facility] [address] [id number] [address] [place] [address], [place] [address] Jul, [facility] [address] [id number] [address] [place] [address] Jul, [facility] [address] [id number] [address] [place] [address] Jul, [facility] [address] [id number] [address] [place] [address], [place] [address] Jul, [facility] [address] [id number] [address] [place] [address] Jul, [facility] [address] [id number] [address] [place] [address], [place] [address] Jul, [facility] [address] [id number] [address] [place] [address], [place] [address] 31 Jun, 2014 [facility] [address] [id number] [address] [place] [address], [place] [address] 31 Jun, 2014 [facility] [address] [id number] [address] [place] [address], [place] [address] 22 Jun, 2014 [facility] [address] [id number] [address] [place] [address], [place] [address] 18 Jun, 2014 [facility] [address] [id number] [address] [place] [address], [place] [address] 17 Jun, 2014 [facility] [address] [id number] [address] [place] [address], [place] [address] 17 Jun, 2014 [facility] [address] [id number] [address] [place] [address], [place] [address] 16 Jun, 2014 [facility] [address] [id number] [address] [place] [address], [place] [address] 16 Jun, 2014 [facility] [address] [id number] [address] [place] [address], [place] [address] 30 Apr, 2014 [facility] [address] [id number] [address] [place] [address], [place] [address] 30 Apr, 2014 [facility] [address] [id number] [address] [place] [address], [place] [address] 17 Mar, 2014 [facility] [address] [id number] [address] [place] [address], [place] [address] 17 Mar, 2014 [facility] [address] [id number] [address] [place] [address], [place] [address] Mar, [facility] [address] [id number] [address] [place] [address], [place] [address] Mar, [facility] [address] [id number] [address] [place] [address], [place] [address] 16 Jan, 2014 [facility] [address] [id number] [address] [place] [address], [place] [address] Jan, [facility] [address] [id number] [address] [place] [address], [place] [address] Oct, [facility] [address] [id number] [address] [place] [address], [place] [address] Oct, [facility] [address] [id number] [address] [place] [address], [place] [address] Sep, [facility] [address] [id number] [address] [place] [address], [place] [address] Sep, [facility] [address] [id number] [address] [place] [address], [place] [address] Sep, [facility] [address] [id number] [address] [place] [address], [place] [address] Sep, [facility] [address] [id number] [address] [place] [address], [place] [address] Sep, [facility] [address] [id number] [address] [place] [address], [place] [address] Sep, [facility] [address] [id number] [address] [place] [address], [place] [address] Aug, [facility] [address] [id number] [address] [place] [address], [place] [address] Aug, [facility] [address] [id number] [address] [place] [address], [place] [address] Jul, [facility] [address] [id number] [address] [place] [address], [place] [address] Jul, [facility] [address] [id number] [address] [place] [address], [place] [address] Jul, [facility] [address] [id number] [address] [place] [address], [place] [address] Jul, [facility] [address] [id number] [address] [place] [address], [place] [address] Jun, [facility] [address] [id number] [address] [place] [id number] Jun, [facility] [address] [id number] [address] [place] [address], [place] [address] May, [facility] [address] [id number] [address] [place] [id number] May, [facility] [address] [id number] [address] [place] [address], [place] [address] Apr, [facility] [address] [id number] [address] [place] [address], [place] [address] Apr, [facility] [address] [id number] [address] [place] [address], [place] [address] Apr, [facility] [address] [id number] [address] [place] [address], [place] [address] Apr, [facility] [address] [id number] [address] [place] [address] Apr, [facility] [address] [id number] [address] [place] [address], [place] [address] Apr, [facility] [address] [id number] [address] [place] [address], [place] [address] Mar, [facility] [address] [id number] [address] [place] [address], [place] [address] Mar, [facility] [address] [id number] [address] [place] [address], [place] [address] Mar, [facility] [address] [id number] [address] [place] [id number] Mar, [facility] [address] [id number] [address] [place] [address], [place] [address] Mar, [facility] [address] [id number] [address] [place] [address] Feb, [facility] [address] [id number] [address] [place] [address] Feb, [facility] [address] [id number] [facility] [place] [address] Feb, [facility] [address] [id number] [address] [place] [address], [place] [address] 08 Feb, 2013 [facility] [address] [id number] [address] [place] [address], [place] [address] 18 Jan, 2013 [facility] [address] [id number] [address] [place] [address], [place] [address] 17 Jan, 2013 [facility] [address] [id number] [address] [place] [address], [place] [address] 16 Jan, 2013 [facility] [address] [id number] [address] [place] [address], [place] [address] Jan, [facility] [address] [id number] [address] [place] [address], [place] [address] Jan, [facility] [address] [id number] [address] [place] [address], [place] [address] Jan, [facility] [address] [id number] [address] [place] [address], [place] [address] 27 Dec, 2012 [facility] [address] [id number] [address] [place] [address], [place] [address] 25 Dec, 2012 [facility] [address] [id number] [address] [place] [address], [place] [address] Dec, [facility] [address] [id number] [address] [place] [address], [place] [address] 14 Dec, 2012 [facility] [address] [id number] [address] [place] [address], [place] [address] 13 Dec, 2012 [facility] [address] [id number] [address] [place] [address], [place] [address] 12 Dec, 2012 [facility] [address] [id number] [address] [place] [address], [place] [address] 11 Dec, 2012 [facility] [address] [id number] [address] [place] [address], [place] [address] Dec, [facility] [address] [id number] [address] [place] [address], [place] [address] Dec, [facility] [address] [id number] [address] [place] [address], [place] [address] Dec, [facility] [address] [id number] [address] [place] [address], [place] [address] November, [facility] [address] [id number] [address] [place] [address], [place] [address] November, [facility] [address] [id number] [address] [place] [address], [place] [address] November, [facility] [address] [id number] [address] [place] [address], [place] [address] November, [facility] [address] [id number] [address] [place] [address], [place] [address] November, [facility] [address] [id number] [address] [place] [address], [place] [address] Oct, [facility] [address] [id number] [address] [place] [address], [place] [address] Oct, [facility] [address] [id number] [address] [place] [address], [place] [address] Oct, [facility] [address] [id number] [address] [place] [address], [place] [address] Oct, [facility] [address] [id number] [address] [place] [address], [place] [address] Oct, [facility] [address] [id number] [address] [place] [address], [place] [address] Sep, [facility] [address] [id number] [address] [place] [address], [place] [address] Sep, [facility] [address] [id number] [address] [place] [address], [place] [address] Sep, [facility] [address] [id number] [address] [place] [address], [place] [address] 05 Sep, 2012 [facility] [address] [id number] [address] [place] [address], [place] [address] 26 Aug, 2012 [facility] [address] [id number] [address] [place] [address], [place] [address] 18 Aug, 2012 [facility] [address] [id number] [address] [place] [address], [place] [address] 18 Aug, 2012 [facility] [address] [id number] [address] [place] [address], [place] [address] 15 Aug, 2012 [facility] [address] [id number] [address] [place] [address], [place] [address] Jun, [facility] [address] [id number] [address] [place] [address], [place] [address] Jun, [facility] [address] [id number] [address] [place] [address], [place] [address] Jun, [facility] [address] [id number] [address] [place] [address], [place] [address] Jun, [facility] [address] [id number] [address] [place] [address], [place] [address] Jun, [facility] [address] [id number] [address] [place] [address], [place] [address] Jun, [facility] [address] [id number] [address] [place] [address], [place] [address] Jun, [facility] [address] [id number] [address] [place] [address], [place] [address] Jun, [facility] [address] [id number] [address] [place] [address], [place] [address] Jun, [facility] [address] [id number] [address] [place] [address], [place] [address] Jun, [facility] [address] [id number] [address] [place] [address], [place] [address] May, [facility] [address] [id number] [address] [place] [address], [place] [address] May, [facility] [address] [id number] [address] [place] [address], [place] [address] May, [facility] [address] [id number] [address] [place] [address], [place] [address] May, [facility] [address] [id number] [address] [place] [address], [place] [address] May, [facility] [address] [id number] [address] [place] [address], [place] [address] 16 May, 2012 [facility] [address] [id number] [address] [place] [address], [place] [address] 16 May, 2012 [facility] [address] [id number] [address] [place] [address], [place] [address] 14 May, 2012 [facility] [address] [id number] [address] [place] [address], [place] [address] 14 May, 2012 [facility] [address] [id number] [address] [place] [address], [place] [address] 30 Apr, 2012 [facility] [address] [id number] [address] [place] [address] 30 Apr, 2012 [facility] [address] [id number] [address] [place] [address] 17 Apr, 2012 [facility] [address] [id number] [address] [place] [address] 17 Apr, 2012 [facility] [address] [id number] [address] [place] [address], [place] [address] 09 Apr, 2012 [facility] [address] [id number] [address] [place] [address] 18 Mar, 2012 [facility] [address] [id number] [address] [place] [address] 17 Mar, 2012 [facility] [address] [id number] [address] [place] [address] 07 Mar, 2012 [facility] [address] [id number] [address] [place] [address], [place] [address] Feb, [facility] [address] [id number] [address] [place] [address], [place] [address] Feb, [facility] [address] [id number] [address] [place] [address], [place] [address] Feb, [facility] [address] [id number] [address] [place] [address], [place] [address] Feb, [facility] [address] [id number] [address] [place] [address], [place] [address] Jan, [facility] [address] [id number] [address] [place] [address], [place] [address] Jan, [facility] [address] [id number] [address] [place] [address], [place] [address] Jan, [facility] [address] [id number] [address] [place] [address], [place] [address] Jan, [facility] [address] [id number] [address] [place] [address], [place] [address] Jan, [facility] [address] [id number] [address] [place] [address], [place] [address] Jan, [facility] [address] [id number] [address] [place] [address], [place] [address] Dec, [facility] [address] [id number] [address] [place] [address], [place] [address] Dec, [facility] [address] [id number] [address] [place] [address], [place] [address] Dec, [facility] [address] [id number] [address] [place] [address], [place] [address] November, [facility] [address] [id number] [address] [place] [address], [place] [address] November, [facility] [address] [id number] [address] [place] [address], [place] [address] November, [facility] [address] [id number] [address] [place] [address], [place] [address] November, [facility] [address] [id number] [address] [place] [address], [place] [address] Oct, [facility] [address] [id number] [address] [place] [address], [place] [address] Oct, [facility] [address] [id number] [address] [place] [address], [place] [address] Oct, [facility] [address] [id number] [address] [place] [address], [place] [address] Sep, [facility] [address] [id number] [address] [place] [address], [place] [address] Sep, [facility] [address] [id number] [address] [place] [address], [place] [address] Aug, [facility] [address] [id number] [address] [place] [address], [place] [address] Aug, [facility] [address] [id number] [address] [place] [address], [place] [address] Aug, [facility] [address] [id number] [address] [place] [address], [place] [address] Aug, [facility] [address] [id number] [address] [place] [address], [place] [address] Jul, [facility] [address] [id number] [address] [place] [address], [place] [address] Jul, [facility] [address] [id number] [address] [place] [address], [place] [address] Jul, [facility] [address] [id number] [address] [place] [address], [place] [address] Jul, [facility] [address] [id number] [address] [place] [address], [place] [address] Jul, [facility] [address] [id number] [address] [place] [address], [place] [address] Jul, [facility] [address] [id number] [address] [place] [address], [place] [address] Jul, [facility] [address] [id number] [address] [place] [address], [place] [address] Jul, [facility] [address] [id number] [address] [place] [address], [place] [address] Jun, [facility] [address] [id number] [address] [place] [address], [place] [address] Jun, [facility] [address] [id number] [address] [place] [address], [place] [address] Jun, [facility] [address] [id number] [address] [place] [address], [place] [address] Jun, [facility] [address] [id number] [address] [place] [address], [place] [address] Jun, [facility] [address] [id number] [address] [place] [address], [place] [address] May, [facility] [address] [id number] [address] [place] [address], [place] [address] May, [facility] [address] [id number] [address] [place] [address], [place] [address] May, [facility] [address] [id number] [address] [place] [address], [place] [address] 15 May, 2011 [facility] [address] [id number] [address] [place] [address], [place] [address] May, [facility] [address] [id number] [address] [place] [address], [place] [address] May, [facility] [address] [id number] [address] [place] [address], [place] [address] Apr, [facility] [address] [id number] [address] [place] [address] 13 Apr, 2011 [facility] [place] [address] [id number] [address] [place] [address] Apr, [facility] [place] [address] [id number] [address] [place] [address] Feb, [facility] [place] [address] [id number] [address] [place] [address] Feb, [facility] [place] [address] [id number] [address] [place] [address] Oct, [facility] [place] [address] [id number] [address] [place] [address] Jul, [facility] [place] [address] [id number] [address] [place] [address] Jul, [facility] [place] [address] [id number] [address] [place] [address] Jun, [facility] [place] [address] [id number] [address] [place] [address] May, [facility] [place] [address] [id number] [address] [place] [address] May, [facility] [place] [address] [id number] [address] [place] [address] May, [facility] [place] [address] [id number] [address] [place] [address] Apr, [facility] [place] [address] [id number] [address] [place] [address] Jan, [facility] [place] [address] [id number] [address] [place] [address] November, IMMUNIZATIONS No Known Immunizations SOCIAL HISTORY Never Assessed REASON FOR VISIT PLAN OF CARE VITAL SIGNS Height 70 in 2013-01-28 Weight 206 lbs 2013-01-28 Temperature 99.6 degrees Fahrenheit 2013-01-28 Heart Rate 100 bpm 2013-01-28 Respiratory Rate 20 2013-01-28 Blood pressure systolic 110 mmHg 2013-01-28 Blood pressure diastolic 72 mmHg 2013-01-28 MEDICATIONS Unknown Medications RESULTS No Results PROCEDURES [...]
--- OUTSIDE RECORDS SUMMARY | 2020-01-31 09:38 | XMS REPORT ---
Author Author Ivet TURNER Organization [facility] Address [address] [place] [address] Care Team Providers Care Donor Services Specialist Name Role Phone QUYEN TURNER Unavailable PROBLEMS Type Condition ICD9-CM Code DBH71-SA Code Onset Dates Condition S tatus SNOMED Code Problem Osteoarthritis M19.90 Active 55069 5006 Problem Bilateral carotid artery disease I77.9 Active 298777526 Problem Stage 3 chronic kidney disease N18.3 Active 989721787 Problem Essential hypertension I10 Active 46338774 Problem Acquired hypothyroidism E03.9 Active 942589138 Problem GERD (gastroesophageal reflux disease) K21.9 Active 293998970 Problem Seasonal allergic rhinitis due to pollen J30.1 Active 36197070 Problem Schizo affective schizophrenia F25.0 Active 637834666 Problem Fibromyalgia M79.7 Active 6513052 05 Problem Vitamin D deficiency E55.9 Active 23625758 Problem Iron deficiency anemia, unspecified iron deficiency an emia type D50.9 Active 70789885 Problem Secondary hyperparathyroidism, not elsewhere classified E21.1 Active 59293257 ALLERGIES No Information ENCOUNTERS Encounter Location Date Diagnosis [address] [id number] [address] Dec, Osteoarthritis M19.90 [facility] [address] [facility] [id number] [address] [place] [address] November, Encounter for medication mon itoring Z51.[id number] [place] [phone] November, Encounter for medication mon itoring Z51.81 and Osteoarthritis M19.90 [facility] [address] [facility] [id number] [address] [place] [address] November, Seasonal allergic rhinitis d ue to pollen J30.1 [facility] [address] [facility] [id number] [address] [place] [address] 14 Oct, 2019 Lumbar radiculopathy M54.16 ; Fibromyalgia M79.7 ; Essential hypertension I10 and GERD (gastroesophageal reflux disease) K21.9 [facility] [address] [facility] [id number] [address] [place] [id number] 03 Oct, 2019 Osteoarthritis M19.90 [facility] [address] [facility] [id number] [address] [place] [address] Sep, [facility] [address] [facility] [id number] [address] [place] [address] Aug, Osteoarthritis M19.90 [facility] [address] [facility] [id number] [address] [place] [address] Jul, Osteoarthritis M19.90 [facility] [address] [facility] [id number] [address] [place] [address] Jun, Osteoarthritis M19.90 [facility] [address] [facility] [id number] [address] [place] [phone] Jun, Herpes zoster without compli cation B02.9 [facility] [address] [facility] [id number] [address] [place] [address] May, Osteoarthritis M19.90 [facility] [address] [facility] [id number] [address] [place] [address] May, [facility] [address] [facility] [id number] [address] [place] [address] Apr, [facility] [address] [facility] [id number] [address] [place] [address] Mar, Osteoarthritis M19.90 [facility] [address] [facility] [id number] [address] [place] [address] Mar, [facility] [address] [facility] [id number] [address] [place] [address] Feb, Lumbago with sciatica, left side M54.42 ; Lumbago with sciatica, right side M54.41 and Other chronic pain G89.29 [facility] [address] [facility] [id number] [address] [place] [address] Feb, Encounter for Medicare jesus costello wellness exam Z00.00 ; Schizo affective schizophrenia F25.0 ; Essential hypertension I10 ; GERD (gastroesophageal reflux disease) K21.9 ; Secondary hyperparathyroidism, not elsewhere classified E21.1 ; Idiopathic peripheral neuropathy G60.9 ; Stage 3 chronic kidney disease N18.3 ; Acquired hypothyroidism E03.9 ; Bilateral carotid artery disease I77.9 and Hypothyroidism E03.9 [facility] [address] [facility] [id number] [address] [place] [address] Feb, Osteoarthritis M19.90 [facility] [address] [facility] [id number] [address] [place] [address] Jan, Osteoarthritis M19.90 [facility] [address] [place] [id number] [address] [place] [address] Jan, Osteoarthritis M19.90 [facility] [address] [facility] [id number] [address] [place] [phone] Dec, Acquired hypothyroidism E03. 9 [facility] [address] [facility] [id number] [address] [place] [address] Dec, Fibromyalgia M79.7 ; Hypothy roidism E03.9 ; Essential hypertension I10 and Sensory loss R20.[id number] [address] November, Osteoarthritis M19.90 [facility] [address] [facility] [id number] [address] [place] [address] Oct, Osteoarthritis M19.90 [facility] [address] [facility] [id number] [address] [place] [address] Oct, Sore throat J02.9 and Acute nasopharyngitis J00 [facility] [address] [facility] [id number] [address] [place] [address] Sep, Osteoarthritis M19.90 [facility] [address] [place] [id number] [address] [place] [address] Sep, Acute non-recurrent maxillar y sinusitis J01.00 [facility] [address] [place] [id number] [address] [place] [address] Aug, Acute non-recurrent pansinus itis J01.40 [facility] [address] [place] [id number] [address] [place] [address] Jul, Osteoarthritis M19.90 [place] [address] [address] Jul, [place] [address] [address] Apr, Osteoarthritis M19.90 [place] [address] [address] Apr, Fibromyalgia M79.7 ; Essenti al hypertension I10 ; Encounter for immunization Z23 ; Stage 3 chronic kidney disease N18.3 and Depression F32.9 [place] [address] [address] Dec, Fibromyalgia M79.7 ; Osteoar thritis M19.90 and Encounter for medication management Z79.899 [facility] [address] [address] November, Nausea and vomiting, intract ability of vomiting not specified, unspecified vomiting type R11.2 and Dizziness R42 [facility] [address] [place] [id number] [address] [place] [address] November, Fibromyalgia M79.7 [place] [address] [address] November, Medicare annual wellness vis it, initial Z00.00 ; Anxiety F41.9 ; Depression F32.9 ; Stage 3 chronic kidney disease N18.3 ; Fibromyalgia M79.7 ; Essential hypertension I10 ; Secondary hyperparathyroidism, not elsewhere classified E21.1 ; Osteoarthritis M19.90 ; Hypothyroidism E03.9 and Encounter for immunization Z23 [place] [address] [address] Oct, [place] [address] [address] Oct, Sebaceous cyst L72.3 [place] [address] [address] Sep, Low back pain, unspecified b ack pain laterality, unspecified chronicity, with sciatica presence unspecified M54.5 and Secondary hyperparathyroidism, not elsewhere classified E21.1 [place] [address] [address] Sep, Fibromyalgia M79.7 [place] [address] [address] Sep, Fibromyalgia M79.7 ; Plantar fasciitis, bilateral M72.2 ; Essential hypertension I10 ; Depression F32.9 and Epidermoid cyst L72.0 [place] [address] [address] Jul, [place] [address] [address] Jul, Fibromyalgia M79.7 ; Iron de ficiency anemia, unspecified iron deficiency anemia type D50.9 and Acute nasopharyngitis J00 [facility] [address] [address] Jun, Sore throat J02.9 and Acute serous otitis media of left ear, recurrence not specified H65.02 [place] [address] [address] Jun, Hypothyroidism E03.9 [facility] [address] [address] Jun, [place] [address] [address] Jun, Hypothyroidism E03.9 ; Essen tial hypertension I10 and Osteoarthritis M19.90 [place] [address] [address] May, [place] [address] [address] May, [place] [address] [address] Feb, [place] [address] [address] Feb, Leonela-menopausal N95.1 and To bacco use Z72.0 [place] [address] [address] Jan, [place] [address] [address] Jan, Osteoarthritis M19.90 ; Bila teral carotid artery disease I77.9 ; Raynauds syndrome I73.00 ; Essential hypertension I10 ; Allergic rhinitis J30.9 ; Stage 3 chronic kidney disease N18.3 ; Fibromyalgia M79.7 ; Hypothyroidism E03.9 ; GERD (gastroesophageal reflux disease) K21.9 and Vitamin D deficiency E55.9 [place] [address] [address] Dec, Raynauds syndrome I73.00 ; P lantar fascial fibromatosis M72.2 ; Osteoarthritis M19.90 and Fibromyalgia M79.7 [place] [address] [address] Dec, [place] [address] [address] Dec, [place] [address] [place] [id number] [address] [place] [address] Oct, Function kidney decreased N2 8.9 [facility] [address] [id number] [address] [place] [id number] 19 Oct, 2016 Dental examination Z01.20 [facility] [address] [id number] [address] [place] [address] 18 Oct, 2016 Essential hypertension I10 a nd Function kidney decreased N28.9 [facility] [address] [id number] [address] [place] [id number] 04 Oct, 2016 Dental examination Z01.20 [facility] [address] [id number] [address] [place] [address] Oct, [facility] [address] [facility] [id number] [address] [place] [address] 24 Sep, 2016 Other specified disorders in volving the immune mechanism D89.89 and Schizo affective schizophrenia F25.0 [facility] [address] [facility] [id number] [address] [place] [address] Sep, Schizo affective schizophren ia F25.0 [facility] [address] [id number] [address] [place] [address] 16 Sep, 2016 Eustachian tube dysfunction, bilateral H69.83 [facility] [address] [facility] [id number] [address] [place] [id number] 15 Sep, 2016 [facility] [address] [facility] [id number] [address] [place] [address] 14 Sep, 2016 [facility] [address] [facility] [id number] [address] [place] [id number] 14 Sep, 2016 [facility] [address] [facility] [id number] [address] [place] [phone] 13 Sep, 2016 Eustachian tube dysfunction, bilateral H69.83 [facility] [address] [facility] [id number] [address] [place] [address] 09 Sep, 2016 Allergic rhinitis J30.9 ; Es sential hypertension I10 ; Hypothyroidism E03.9 and Schizo affective schizophrenia F25.0 [facility] [address] [place] [id number] [address] [place] [address] Jul, Eustachian tube dysfunction, bilateral H69.83 and Visit for TB skin test Z11.1 [facility] [address] [address] Jul, Subacute pansinusitis J01.40 [facility] [address] [address] Jun, Schizo affective schizophren ia F25.0 ; Depression F32.9 ; Allergic rhinitis J30.9 ; Raynauds syndrome I73.00 ; Essential hypertension I10 ; Slow transit constipation K59.01 ; GERD (gastroesophageal reflux disease) K21.9 ; Hypothyroidism E03.9 ; Nicotine addiction F17.200 ; Other viral agents as the cause of diseases classified elsewhere B97.89 ; Acute upper respiratory infection, unspecified J06.9 and Osteoarthritis M19.90 [facility] [address] [address] Jun, Allergic rhinitis J30.9 and GERD (gastroesophageal reflux disease) K21.9 [place] [address] [address] May, [place] [address] [address] Mar, Schizo affective schizophren ia F25.0 [place] [address] [address] Mar, Schizo affective schizophren ia F25.0 [place] [address] [place] [id number] [address] [place] [address] 15 Mar, 2016 Schizo affective schizophren ia F25.0 [place] [address] [place] [id number] [address] [place] [phone] 06 Mar, 2016 Acute non-recurrent maxillar y sinusitis J01.00 [place] [address] [place] [id number] [address] [place] [address] Feb, Schizo affective schizophren ia F25.0 [place] [id number] [facility] [id number] [address] [place] [address] Feb, Contact dermatitis and eczem a L25.9 [place] [address] [facility] [id number] [address] [place] [phone] Jan, [place] [address] [place] [id number] [place] [address] Jan, Schizo affective schizophren ia F25.0 ; Slow transit constipation K59.01 ; Essential hypertension I10 ; GERD (gastroesophageal reflux disease) K21.9 ; Hypothyroidism E03.9 ; Osteoarthritis M19.90 ; Low back pain, unspecified back pain laterality, unspecified chronicity, with sciatica presence unspecified M54.5 and Bilateral carotid artery disease I77.9 [place] [address] [place] [id number] [address] [place] [address] Oct, [place] [address] [address] Sep, Hypothyroid E03.9 [place] [address] [place] [id number] [address] [place] [address] Sep, Schizo affective schizophren ia F25.0 ; Depression F32.9 ; Anxiety F41.9 ; Allergic rhinitis J30.9 ; Raynauds syndrome I73.00 ; Insomnia G47.00 ; Essential hypertension I10 ; GERD (gastroesophageal reflux disease) K21.9 ; Hypothyroidism E03.9 and Vitamin D deficiency E55.9 [place] [address] [place] [address] Sep, [place] [address] [address] Sep, [place] [address] [place] [id number] [address] [place] [address] Aug, Allergic rhinitis J30.9 ; De pression F32.9 ; Anxiety F41.9 ; Raynauds syndrome I73.00 ; Insomnia G47.00 and GERD (gastroesophageal reflux disease) K21.9 [facility] [address] [place] [id number] [address] [place] [address] Aug, MONICA (secretory otitis media) H65.90 and Raynauds syndrome I73.00 [facility] [address] [place] [id number] [address] [place] [address] Jul, Acute otitis externa of both ears, unspecified type H60.503 [facility] [address] [place] [address] Jun, [facility] [address] [address] Jun, Essential hypertension I10 ; Allergic rhinitis J30.9 ; Hypothyroidism E03.9 and Osteoarthritis M19.90 [place] [address] [address] Jun, Routine adult health mainten ance Z00.00 ; Hypothyroidism E03.9 ; Essential hypertension I10 ; Insomnia G47.00 ; Nicotine addiction F17.200 ; Raynauds syndrome I73.00 ; GERD (gastroesophageal reflux disease) K21.9 ; Allergic rhinitis J30.9 ; Anxiety F41.9 ; Depression F32.9 and Schizo affective schizophrenia F25.0 [place] [address] [place] [address] May, Upper respiratory tract infe ction, unspecified type J06.9 [facility] [address] [place] [id number] [address] [place] [id number] Mar, [facility] [address] [id number] [id number] Mar, [place] [address] [place] [id number] [address] [place] [address] Mar, [place] [address] [place] [id number] [address] [place] [address] Mar, [facility] [address] [place] [id number] [place] [address] Feb, Jaw pain 784.92 and Environm ental and seasonal allergies 477.8 [facility] [address] [id number] [address] [place] [address], [place] [address] Feb, [facility] [address] [id number] [address] [place] [address], [place] [address] Oct, [facility] [address] [id number] [address] [place] [phone] Oct, [facility] [address] [id number] [address] [place] [address], [place] [address] Oct, [facility] [address] [id number] [address] [place] [phone] Oct, [facility] [address] [id number] [address] [place] [address] Sep, [facility] [address] [id number] [address] [place] [phone] Sep, [facility] [address] [id number] [address] [place] [address] Jul, [facility] [address] [id number] [address] [place] [phone] Jul, [facility] [address] [id number] [address] [place] [phone] Jul, [facility] [address] [id number] [address] [place] [id number] Jul, [facility] [address] [id number] [address] [place] [phone] Jul, [facility] [address] [id number] [address] [place] [phone] Jul, [facility] [address] [id number] [address] [place] [phone] Jul, [facility] [address] [id number] [address] [place] [address], [place] [address] 31 Jun, 2014 [facility] [address] [id number] [address] [place] [address], [place] [address] 31 Jun, 2014 [facility] [address] [id number] [address] [place] [address], [place] [id number] 22 Jun, 2014 [facility] [address] [id number] [address] [place] [address], [place] [address] 18 Jun, 2014 [facility] [address] [id number] [address] [place] [address], [place] [id number] 17 Jun, 2014 [facility] [address] [id number] [address] [place] [address], [place] [id number] 17 Jun, 2014 [facility] [address] [id number] [address] [place] [address], [place] [address] 16 Jun, 2014 [facility] [address] [id number] [address] [place] [address], [place] [id number] 16 Jun, 2014 [facility] [address] [id number] [address] [place] [address], [place] [id number] 30 Apr, 2014 [facility] [address] [id number] [address] [place] [address], [place] [id number] 30 Apr, 2014 [facility] [address] [id number] [address] [place] [address], [place] [id number] 17 Mar, 2014 [facility] [address] [id number] [address] [place] [address], [place] [id number] 17 Mar, 2014 [facility] [address] [id number] [address] [place] [address], [place] [address] Mar, [facility] [address] [id number] [address] [place] [address], [place] [address] Mar, [facility] [address] [id number] [address] [place] [address], [place] [address] 16 Jan, 2014 [facility] [address] [id number] [address] [place] [address], [place] [address] Jan, [facility] [address] [id number] [address] [place] [address], [place] [id number] Oct, [facility] [address] [id number] [address] [place] [address], [place] [address] Oct, [facility] [address] [id number] [address] [place] [address], [place] [id number] Sep, [facility] [address] [id number] [address] [place] [address], [place] [id number] Sep, [facility] [address] [id number] [address] [place] [address], [place] [id number] Sep, [facility] [address] [id number] [address] [place] [address], [place] [id number] Sep, [facility] [address] [id number] [address] [place] [address], [place] [id number] Sep, [facility] [address] [id number] [address] [place] [address], [place] [id number] Sep, [facility] [address] [id number] [address] [place] [address], [place] [id number] Aug, [facility] [address] [id number] [address] [place] [address], [place] [id number] Aug, [facility] [address] [id number] [address] [place] [address], [place] [id number] Jul, [facility] [address] [id number] [address] [place] [address], [place] [id number] Jul, [facility] [address] [id number] [address] [place] [address], [place] [id number] Jul, [facility] [address] [id number] [address] [place] [address], [place] [id number] Jul, [facility] [address] [id number] [address] [place] [address], [place] [id number] Jun, [facility] [address] [id number] [address] [place] [id number] Jun, [facility] [address] [id number] [address] [place] [address], [place] [id number] May, [facility] [address] [id number] [address] [place] [id number] May, [facility] [address] [id number] [address] [place] [address], [place] [id number] Apr, [facility] [address] [id number] [address] [place] [id number] Apr, [facility] [address] [id number] [address] [place] [address], [place] [id number] Apr, [facility] [address] [id number] [address] [place] [address], [place] [id number] Apr, [facility] [address] [id number] [address] [place] [address], [place] [id number] Apr, [facility] [address] [id number] [address] [place] [address], [place] [id number] Apr, [facility] [address] [id number] [address] [place] [address], [place] [id number] Mar, [facility] [address] [id number] [address] [place] [address], [place] [id number] Mar, [facility] [facility] [address] [id number] [address] [place] [id number] Mar, [facility] [address] [id number] [address] [place] [id number] Mar, [facility] [address] [id number] [address] [place] [address], [place] [address] Mar, [facility] [address] [id number] [address] [place] [id number] Feb, [facility] [address] [id number] [address] [place] [address], [place] [id number] Feb, [facility] [address] [id number] [facility] [place] [address] 13 Feb, 2013 [facility] [address] [id number] [address] [place] [address], [place] [id number] 08 Feb, 2013 [facility] [address] [id number] [address] [place] [address], [place] [id number] 18 Jan, 2013 [facility] [address] [id number] [address] [place] [address], [place] [id number] 17 Jan, 2013 [facility] [address] [id number] [address] [place] [address], [place] [id number] 16 Jan, 2013 [facility] [address] [id number] [address] [place] [address], [place] [address] Jan, [facility] [address] [id number] [address] [place] [address], [place] [id number] Jan, [facility] [address] [id number] [address] [place] [address], [place] [id number] Jan, [facility] [address] [id number] [address] [place] [address], [place] [id number] Dec, [facility] [address] [id number] [address] [place] [address], [place] [id number] Dec, [facility] [address] [id number] [address] [place] [address], [place] [id number] Dec, [facility] [address] [id number] [address] [place] [address], [place] [id number] 14 Dec, 2012 [facility] [address] [id number] [address] [place] [address], [place] [id number] 13 Dec, 2012 [facility] [address] [id number] [address] [place] [address], [place] [id number] 12 Dec, 2012 [facility] [address] [id number] [address] [place] [address], [place] [id number] 11 Dec, 2012 [facility] [address] [id number] [address] [place] [address], [place] [id number] Dec, [facility] [address] [id number] [address] [place] [address], [place] [id number] Dec, [facility] [address] [id number] [address] [place] [address], [place] [address] Dec, [facility] [address] [id number] [address] [place] [address], [place] [id number] November, [facility] [address] [id number] [address] [place] [address], [place] [address] November, [facility] [address] [id number] [address] [place] [address], [place] [id number] November, [facility] [address] [id number] [address] [place] [address], [place] [address] November, [facility] [address] [id number] [address] [place] [address], [place] [address] November, [facility] [address] [id number] [address] [place] [address], [place] [address] Oct, [facility] [address] [id number] [address] [place] [address], [place] [id number] Oct, [facility] [address] [id number] [address] [place] [address], [place] [id number] Oct, [facility] [address] [id number] [address] [place] [address], [place] [address] Oct, [facility] [address] [id number] [address] [place] [address], [place] [address] Oct, [facility] [address] [id number] [address] [place] [address], [place] [id number] Sep, [facility] [address] [id number] [address] [place] [address], [place] [id number] Sep, [facility] [address] [id number] [address] [place] [address], [place] [id number] Sep, [facility] [address] [id number] [address] [place] [address], [place] [id number] 05 Sep, 2012 [facility] [address] [id number] [address] [place] [address], [place] [address] 26 Aug, 2012 [facility] [address] [id number] [address] [place] [address], [place] [id number] 18 Aug, 2012 [facility] [address] [id number] [address] [place] [address], [place] [id number] 18 Aug, 2012 [facility] [address] [id number] [address] [place] [address], [place] [id number] 15 Aug, 2012 [facility] [address] [id number] [address] [place] [address], [place] [id number] Jun, [facility] [address] [id number] [address] [place] [address], [place] [id number] Jun, [facility] [address] [id number] [address] [place] [address], [place] [address] Jun, [facility] [address] [id number] [address] [place] [address], [place] [id number] Jun, [facility] [address] [id number] [address] [place] [address], [place] [id number] Jun, [facility] [address] [id number] [address] [place] [address], [place] [address] Jun, [facility] [address] [id number] [address] [place] [address], [place] [id number] Jun, [facility] [address] [id number] [address] [place] [address], [place] [address] Jun, [facility] [address] [id number] [address] [place] [address], [place] [address] Jun, [facility] [address] [id number] [address] [place] [address], [place] [id number] Jun, [facility] [address] [id number] [address] [place] [address], [place] [address] May, [facility] [address] [id number] [address] [place] [address], [place] [address] May, [facility] [address] [id number] [address] [place] [address], [place] [address] May, [facility] [address] [id number] [address] [place] [address], [place] [address] May, [facility] [address] [id number] [address] [place] [address], [place] [id number] May, [facility] [address] [id number] [address] [place] [address], [place] [address] 16 May, 2012 [facility] [address] [id number] [address] [place] [address], [place] [address] 16 May, 2012 [facility] [address] [id number] [address] [place] [address], [place] [id number] 14 May, 2012 [facility] [address] [id number] [address] [place] [address], [place] [address] 14 May, 2012 [facility] [address] [id number] [address] [place] [address], [place] [address] 30 Apr, 2012 [facility] [address] [id number] [address] [place] [id number] 30 Apr, 2012 [facility] [address] [id number] [address] [place] [id number] 17 Apr, 2012 [facility] [address] [id number] [address] [place] [id number] 17 Apr, 2012 [facility] [address] [id number] [address] [place] [address], [place] [id number] 09 Apr, 2012 [facility] [address] [id number] [address] [place] [id number] 18 Mar, 2012 [facility] [address] [id number] [address] [place] [id number] 17 Mar, 2012 [facility] [address] [id number] [address] [place] [id number] Mar, [facility] [address] [id number] [address] [place] [address], [place] [address] Feb, [facility] [address] [id number] [address] [place] [address], [place] [address] Feb, [facility] [address] [id number] [address] [place] [address], [place] [id number] Feb, [facility] [address] [id number] [address] [place] [address], [place] [address] Feb, [facility] [address] [id number] [address] [place] [address], [place] [address] Jan, [facility] [address] [id number] [address] [place] [address], [place] [address] Jan, [facility] [address] [id number] [address] [place] [address], [place] [address] Jan, [facility] [address] [id number] [address] [place] [address], [place] [address] Jan, [facility] [address] [id number] [address] [place] [address], [place] [address] Jan, [facility] [address] [id number] [address] [place] [address], [place] [address] Jan, [facility] [address] [id number] [address] [place] [address], [place] [address] Dec, [facility] [address] [id number] [address] [place] [address], [place] [address] Dec, [facility] [address] [id number] [address] [place] [address], [place] [address] Dec, [facility] [address] [id number] [address] [place] [address], [place] [address] November, [facility] [address] [id number] [address] [place] [address], [place] [address] November, [facility] [address] [id number] [address] [place] [address], [place] [address] November, [facility] [address] [id number] [address] [place] [address], [place] [id number] November, [facility] [address] [id number] [address] [place] [address], [place] [address] Oct, [facility] [address] [id number] [address] [place] [address], [place] [address] Oct, [facility] [address] [id number] [address] [place] [address], [place] [address] Oct, [facility] [address] [id number] [address] [place] [address], [place] [address] Sep, [facility] [address] [id number] [address] [place] [address], [place] [address] Sep, [facility] [address] [id number] [address] [place] [address], [place] [address] Aug, [facility] [address] [id number] [address] [place] [address], [place] [address] Aug, [facility] [address] [id number] [address] [place] [address], [place] [address] Aug, [facility] [address] [id number] [address] [place] [address], [place] [address] Aug, [facility] [address] [id number] [address] [place] [address], [place] [address] Jul, [facility] [address] [id number] [address] [place] [address], [place] [address] Jul, [facility] [address] [id number] [address] [place] [address], [place] [address] Jul, [facility] [address] [id number] [address] [place] [address], [place] [address] Jul, [facility] [address] [id number] [address] [place] [address], [place] [address] Jul, [facility] [address] [id number] [address] [place] [address], [place] [address] Jul, [facility] [address] [id number] [address] [place] [address], [place] [address] Jul, [facility] [address] [id number] [address] [place] [address], [place] [address] Jul, [facility] [address] [id number] [address] [place] [address], [place] [address] Jun, [facility] [address] [id number] [address] [place] [address], [place] [address] Jun, [facility] [address] [id number] [address] [place] [address], [place] [address] Jun, [facility] [address] [id number] [address] [place] [address], [place] [address] Jun, [facility] [address] [id number] [address] [place] [address], [place] [address] Jun, [facility] [address] [id number] [address] [place] [address], [place] [address] May, [facility] [address] [id number] [address] [place] [address], [place] [address] May, [facility] [address] [id number] [address] [place] [address], [place] [address] 17 May, 2011 [facility] [address] [id number] [address] [place] [id number] 15 May, 2011 [facility] [address] [id number] [address] [place] [address], [place] [address] May, [facility] [address] [id number] [address] [place] [address], [place] [id number] 08 May, 2011 [facility] [address] [id number] [address] [place] [address], [place] [address] Apr, [facility] [address] [id number] [address] [place] [id number] 13 Apr, 2011 [facility] [address] [id number] [address] [place] [id number] Apr, [facility] [address] [id number] [address] [place] [id number] Feb, [facility] [address] [id number] [address] [place] [id number] Feb, [facility] [address] [id number] [address] [place] [id number] Oct, [facility] [address] [id number] [address] [place] [id number] Jul, [facility] [address] [id number] [address] [place] [id number] Jul, [facility] [address] [id number] [address] [place] [id number] Jun, [facility] [address] [id number] [address] [place] [id number] May, [facility] [address] [id number] [address] [place] [id number] May, [facility] [address] [id number] [address] [place] [id number] May, [facility] [address] [id number] [address] [place] [id number] Apr, [facility] [address] [id number] [address] [place] [id number] Jan, [facility] [address] [id number] [address] [place] [id number] November, IMMUNIZATIONS No Known Immunizations SOCIAL HISTORY [...]
--- OUTSIDE RECORDS SUMMARY | 2020-01-31 09:38 | XMS REPORT ---
Author Author Ivet TURNER Organization [facility] Address [address] [place] [address] Care Team Providers Care Project Builder Name Role Phone QUYEN TURNER Unavailable PROBLEMS Type Condition ICD9-CM Code PPP46-EU Code Onset Dates Condition S tatus SNOMED Code Problem Osteoarthritis M19.90 Active 64094 5006 Problem Bilateral carotid artery disease I77.9 Active 410734661 Problem Stage 3 chronic kidney disease N18.3 Active 898617774 Problem Essential hypertension I10 Active 34533404 Problem Acquired hypothyroidism E03.9 Active 678760991 Problem GERD (gastroesophageal reflux disease) K21.9 Active 632295125 Problem Seasonal allergic rhinitis due to pollen J30.1 Active 51179065 Problem Schizo affective schizophrenia F25.0 Active 393242815 Problem Fibromyalgia M79.7 Active 4662900 05 Problem Vitamin D deficiency E55.9 Active 07104936 Problem Iron deficiency anemia, unspecified iron deficiency an emia type D50.9 Active 68712245 Problem Secondary hyperparathyroidism, not elsewhere classified E21.1 Active [id number] ALLERGIES No Information ENCOUNTERS Encounter Location Date Diagnosis [facility] [id number] [place] [address] November, Seasonal allergic rhinitis d ue to pollen J30.1 [facility] [id number] [place] [address] 14 Oct, 2019 Lumbar radiculopathy M54.16 ; Fibromyalgia M79.7 ; Essential hypertension I10 and GERD (gastroesophageal reflux disease) K21.9 [facility] [id number] [place] [address] 03 Oct, 2019 Osteoarthritis M19.90 [facility] [id number] [place] [address] Sep, [facility] [address] [facility] [id number] [address] [place] [address] Aug, Osteoarthritis M19.90 [facility] [address] [facility] [id number] [address] [place] [address] Jul, Osteoarthritis M19.90 [facility] [address] [facility] [id number] [address] [place] [address] Jun, Osteoarthritis M19.90 [facility] [address] [facility] [id number] [address] [place] [address] Jun, Herpes zoster without compli cation B02.9 [facility] [address] [facility] [id number] [address] [place] [address] May, Osteoarthritis M19.90 [facility] [address] [facility] [id number] [address] [place] [address] May, [facility] [address] [facility] [id number] [address] [place] [address] Apr, [facility] [address] [facility] [id number] [address] [place] [address] Mar, Osteoarthritis M19.90 [facility] [address] [facility] [id number] [address] [place] [address] Mar, [facility] [address] [facility] [id number] [address] [place] [address] Feb, Lumbago with sciatica, left side M54.42 ; Lumbago with sciatica, right side M54.41 and Other chronic pain G89.29 [facility] [address] [facility] [id number] [address] [place] [address] Feb, [facility] ; Schizo affective schizophrenia F25.0 ; Essential hypertension I10 ; GERD (gastroesophageal reflux disease) K21.9 ; Secondary hyperparathyroidism, not elsewhere classified E21.1 ; Idiopathic peripheral neuropathy G60.9 ; Stage 3 chronic kidney disease N18.3 ; Acquired hypothyroidism E03.9 ; Bilateral carotid artery disease I77.9 and Hypothyroidism E03.9 [facility] [address] [facility] [id number] [address] [place] [address] Feb, Osteoarthritis M19.90 [facility] [address] [facility] [id number] [address] [place] [address] Jan, Osteoarthritis M19.90 [facility] [address] [facility] [id number] [address] [place] [address] Jan, Osteoarthritis M19.90 [facility] [address] [facility] [id number] [address] [place] [address] Dec, Acquired hypothyroidism E03. 9 [facility] [address] [facility] [id number] [address] [place] [address] Dec, Fibromyalgia M79.7 ; Hypothy roidism E03.9 ; Essential hypertension I10 and Sensory loss R20.[id number] [place] [address] November, Osteoarthritis M19.90 [facility] [address] [facility] [id number] [address] [place] [address] Oct, Osteoarthritis M19.90 [facility] [address] [facility] [id number] [address] [place] [address] Oct, Sore throat J02.9 and Acute nasopharyngitis J00 [facility] [address] [facility] [id number] [address] [place] [address] Sep, Osteoarthritis M19.90 [facility] [address] [facility] [id number] [address] [place] [address] Sep, Acute non-recurrent maxillar y sinusitis J01.00 [facility] [address] [facility] [id number] [address] [place] [address] Aug, Acute non-recurrent pansinus itis J01.40 [facility] [address] [facility] [id number] [address] [place] [address] Jul, Osteoarthritis M19.90 [facility] [id number] [place] [address] Jul, [facility] [id number] [place] [address] Apr, Osteoarthritis M19.90 [facility] [address] [address] Apr, Fibromyalgia M79.7 ; Essenti al hypertension I10 ; Encounter for immunization Z23 ; Stage 3 chronic kidney disease N18.3 and Depression F32.9 [place] [address] [address] Dec, Fibromyalgia M79.7 ; Osteoar thritis M19.90 and Encounter for medication management Z79.899 [facility] [address] [address] November, Nausea and vomiting, intract ability of vomiting not specified, unspecified vomiting type R11.2 and Dizziness R42 [facility] [address] [address] November, Fibromyalgia M79.7 [facility] [address] [address] November, Medicare annual wellness vis it, initial Z00.00 ; Anxiety F41.9 ; Depression F32.9 ; Stage 3 chronic kidney disease N18.3 ; Fibromyalgia M79.7 ; Essential hypertension I10 ; Secondary hyperparathyroidism, not elsewhere classified E21.1 ; Osteoarthritis M19.90 ; Hypothyroidism E03.9 and Encounter for immunization Z23 [facility] [address] [address] Oct, [place] [address] [address] Oct, Sebaceous cyst L72.3 [place] [address] [address] Sep, Low back pain, unspecified b ack pain laterality, unspecified chronicity, with sciatica presence unspecified M54.5 and Secondary hyperparathyroidism, not elsewhere classified E21.1 [facility] [address] [address] Sep, Fibromyalgia M79.7 [facility] [address] [address] Sep, Fibromyalgia M79.7 ; Plantar fasciitis, bilateral M72.2 ; Essential hypertension I10 ; Depression F32.9 and Epidermoid cyst L72.0 [place] [address] [address] Jul, [place] [address] [address] Jul, Fibromyalgia M79.7 ; Iron de ficiency anemia, unspecified iron deficiency anemia type D50.9 and Acute nasopharyngitis J00 [facility] [address] [address] Jun, Sore throat J02.9 and Acute serous otitis media of left ear, recurrence not specified H65.02 [facility] [address] [address] Jun, Hypothyroidism E03.9 [place] [address] [address] Jun, [place] [address] [address] Jun, Hypothyroidism E03.9 ; Essen tial hypertension I10 and Osteoarthritis M19.90 [facility] [address] [address] May, [place] [address] [address] May, [facility] [address] [address] Feb, [place] [id number] [place] [address] Feb, Leonela-menopausal N95.1 and To bacco use Z72.0 [facility] [address] [facility] [id number] [address] [place] [address] Jan, [place] [address] [address] Jan, Osteoarthritis M19.90 ; Bila teral carotid artery disease I77.9 ; Raynauds syndrome I73.00 ; Essential hypertension I10 ; Allergic rhinitis J30.9 ; Stage 3 chronic kidney disease N18.3 ; Fibromyalgia M79.7 ; Hypothyroidism E03.9 ; GERD (gastroesophageal reflux disease) K21.9 and Vitamin D deficiency E55.9 [place] [address] [address] Dec, Raynauds syndrome I73.00 ; P lantar fascial fibromatosis M72.2 ; Osteoarthritis M19.90 and Fibromyalgia M79.7 [place] [id number] [place] [address] Dec, [place] [id number] [place] [address] Dec, [place] [id number] [place] [address] Oct, Function kidney decreased N2 8.9 [facility] [address] [id number] [address] [place] [id number] Oct, Dental examination Z01.20 [place] [id number] [place] [address] Oct, Essential hypertension I10 a nd Function kidney decreased N28.9 [facility] [address] [id number] [address] [place] [id number] Oct, Dental examination Z01.20 [place] [id number] [place] [address] Oct, [place] [address] [facility] [id number] [address] [place] [address] 24 Sep, 2016 Other specified disorders in volving the immune mechanism D89.89 and Schizo affective schizophrenia F25.0 [facility] [id number] [place] [address] 21 Sep, 2016 Schizo affective schizophren ia F25.0 [facility] [id number] [place] [address] 16 Sep, 2016 Eustachian tube dysfunction, bilateral H69.83 [place] [address] [address] 15 Sep, 2016 [place] [address] [address] 14 Sep, 2016 [place] [address] [id number] [place] [address] 14 Sep, 2016 [place] [id number] [place] [address] 13 Sep, 2016 Eustachian tube dysfunction, bilateral H69.83 [place] [id number] [place] [address] 09 Sep, 2016 Allergic rhinitis J30.9 ; Es sential hypertension I10 ; Hypothyroidism E03.9 and Schizo affective schizophrenia F25.0 [facility] [id number] [place] [address] Jul, Eustachian tube dysfunction, bilateral H69.83 and Visit for TB skin test Z11.1 [facility] [address] [facility] [id number] [address] [place] [address] Jul, Subacute pansinusitis J01.40 [facility] [id number] [place] [address] Jun, Schizo affective schizophren ia F25.0 ; Depression F32.9 ; Allergic rhinitis J30.9 ; Raynauds syndrome I73.00 ; Essential hypertension I10 ; Slow transit constipation K59.01 ; GERD (gastroesophageal reflux disease) K21.9 ; Hypothyroidism E03.9 ; Nicotine addiction F17.200 ; Other viral agents as the cause of diseases classified elsewhere B97.89 ; Acute upper respiratory infection, unspecified J06.9 and Osteoarthritis M19.90 [place] [address] [address] Jun, Allergic rhinitis J30.9 and GERD (gastroesophageal reflux disease) K21.9 [place] [address] [address] May, [place] [address] [address] Mar, Schizo affective schizophren ia F25.[address] [address] Mar, Schizo affective schizophren ia F25.0 [place] [address] [address] Mar, Schizo affective schizophren ia F25.0 [place] [address] [address] Mar, Acute non-recurrent maxillar y sinusitis J01.00 [place] [address] [address] Feb, Schizo affective schizophren ia F25.0 [place] [address] [address] Feb, Contact dermatitis and eczem a L25.9 [place] [address] [address] Jan, [place] [address] [address] Jan, Schizo affective schizophren ia F25.0 ; Slow transit constipation K59.01 ; Essential hypertension I10 ; GERD (gastroesophageal reflux disease) K21.9 ; Hypothyroidism E03.9 ; Osteoarthritis M19.90 ; Low back pain, unspecified back pain laterality, unspecified chronicity, with sciatica presence unspecified M54.5 and Bilateral carotid artery disease I77.9 [place] [address] [address] Oct, [place] [address] [address] Sep, Hypothyroid E03.9 [place] [address] [address] Sep, Schizo affective schizophren ia F25.0 ; Depression F32.9 ; Anxiety F41.9 ; Allergic rhinitis J30.9 ; Raynauds syndrome I73.00 ; Insomnia G47.00 ; Essential hypertension I10 ; GERD (gastroesophageal reflux disease) K21.9 ; Hypothyroidism E03.9 and Vitamin D deficiency E55.9 [place] [id number] [place] [address] Sep, [place] [address] [address] Sep, [place] [address] [address] Aug, Allergic rhinitis J30.9 ; De pression F32.9 ; Anxiety F41.9 ; Raynauds syndrome I73.00 ; Insomnia G47.00 and GERD (gastroesophageal reflux disease) K21.9 [place] [id number] [place] [address] Aug, MONICA (secretory otitis media) H65.90 and Raynauds syndrome I73.00 [facility] [id number] [place] [address] Jul, Acute otitis externa of both ears, unspecified type H60.503 [place] [address] [place] [address] Jun, [facility] [address] [id number] [place] [address] Jun, Essential hypertension I10 ; Allergic rhinitis J30.9 ; Hypothyroidism E03.9 and Osteoarthritis M19.90 [facility] [id number] [place] [address] Jun, Routine adult health mainten ance Z00.00 ; Hypothyroidism E03.9 ; Essential hypertension I10 ; Insomnia G47.00 ; Nicotine addiction F17.200 ; Raynauds syndrome I73.00 ; GERD (gastroesophageal reflux disease) K21.9 ; Allergic rhinitis J30.9 ; Anxiety F41.9 ; Depression F32.9 and Schizo affective schizophrenia F25.0 [place] [id number] [place] [address] May, Upper respiratory tract infe ction, unspecified type J06.9 [facility] [address] [id number] [place] [address] Mar, [facility] [id number] [place] [id number] Mar, [facility] [address] [id number] [place] [address] Mar, [place] [id number] [place] [address] Mar, [facility] [id number] [place] [address] Feb, Jaw pain 784.92 and Environm ental and seasonal allergies 477.8 [facility] [id number] [place] [address] Feb, [facility] [id number] [place] [address] Oct, [facility] [address] [address] Oct, [facility] [address] [id number] [address] [place] [address], [place] [address] Oct, [facility] [address] [id number] [address] [place] [address], [place] [address] Oct, [facility] [address] [id number] [address] [place] [address], [place] [address] Sep, [facility] [address] [id number] [address] [place] [address], [place] [address] Sep, [facility] [address] [id number] [address] [place] [address], [place] [address] Jul, [facility] [address] [id number] [address] [place] [address], [place] [address] Jul, [facility] [address] [id number] [address] [place] [address], [place] [address] Jul, [facility] [address] [id number] [address] [place] [address], [place] [address] Jul, [facility] [address] [id number] [address] [place] [address], [place] [address] Jul, [facility] [address] [id number] [address] [place] [address], [place] [address] Jul, [facility] [address] [id number] [address] [place] [address], [place] [address] Jul, [facility] [address] [id number] [address] [place] [address], [place] [address] Jun, [facility] [address] [id number] [address] [place] [address], [place] [address] Jun, [facility] [address] [id number] [address] [place] [address], [place] [address] Jun, [facility] [place] [facility] [address] [id number] [address] [place] [address], [place] [address] Jun, [facility] [address] [id number] [address] [place] [address], [place] [address] 17 Jun, 2014 [facility] [address] [id number] [address] [place] [address], [place] [address] Jun, [facility] [address] [id number] [address] [place] [address], [place] [address] Jun, [facility] [address] [id number] [address] [place] [address], [place] [address] Jun, [facility] [address] [id number] [address] [place] [address], [place] [address] Apr, [facility] [address] [id number] [address] [place] [address], [place] [address] Apr, [facility] [address] [id number] [address] [place] [address], [place] [address] Mar, [facility] [address] [id number] [address] [place] [address], [place] [address] Mar, [facility] [address] [id number] [address] [place] [address], [place] [address] Mar, [facility] [address] [id number] [address] [place] [address], [place] [address] Mar, [facility] [address] [id number] [address] [place] [address], [place] [address] Jan, [facility] [address] [id number] [address] [place] [address], [place] [address] Jan, [facility] [address] [id number] [address] [place] [address], [place] [address] Oct, [facility] [address] [id number] [address] [place] [address], [place] [address] Oct, [facility] [address] [id number] [address] [place] [address], [place] [address] Sep, [facility] [address] [id number] [address] [place] [address], [place] [address] Sep, [facility] [place] [facility] [address] [id number] [address] [place] [address], [place] [address] Sep, [facility] [address] [id number] [address] [place] [address], [place] [address] Sep, [facility] [address] [id number] [address] [place] [address], [place] [address] Sep, [facility] [address] [id number] [address] [place] [address], [place] [address] Sep, [facility] [address] [id number] [address] [place] [address], [place] [address] Aug, [facility] [address] [id number] [address] [place] [address], [place] [address] Aug, [facility] [address] [id number] [address] [place] [address], [place] [address] Jul, [facility] [address] [id number] [address] [place] [address] Jul, [facility] [address] [id number] [address] [place] [address], [place] [address] Jul, [facility] [address] [id number] [address] [place] [address] Jul, [facility] [address] [id number] [address] [place] [address] Jun, [facility] [address] [id number] [address] [place] [address] Jun, [facility] [address] [id number] [address] [place] [address], [place] [address] May, [facility] [address] [id number] [address] [place] [address], [place] [address] May, [facility] [address] [id number] [address] [place] [id number] Apr, [facility] [address] [id number] [address] [place] [address] Apr, [facility] [address] [id number] [address] [place] [address], [place] [address] Apr, [facility] [address] [id number] [address] [place] [address], [place] [address] Apr, [facility] [address] [id number] [address] [place] [address], [place] [address] Apr, [facility] [address] [id number] [address] [place] [address], [place] [address] Apr, [facility] [address] [id number] [address] [place] [address], [place] [address] Mar, [facility] [address] [id number] [address] [place] [address], [place] [address] Mar, [facility] [address] [id number] [address] [place] [address], [place] [address] Mar, [facility] [address] [id number] [address] [place] [address], [place] [address] 05 Mar, 2013 [facility] [address] [id number] [address] [place] [address], [place] [address] 05 Mar, 2013 [facility] [address] [id number] [address] [place] [address], [place] [address] 30 Feb, 2013 [facility] [address] [id number] [address] [place] [address], [place] [address] Feb, [facility] [address] [id number] [address] [place] [address], [place] [address] Feb, [facility] [address] [id number] [address] [place] [address], [place] [address] Feb, [facility] [address] [id number] [address] [place] [address], [place] [address] Jan, [facility] [address] [id number] [address] [place] [address], [place] [address] Jan, [facility] [address] [id number] [facility] [place] [place] [address] 16 Jan, 2013 [facility] [address] [id number] [facility] [place] [place] [address] Jan, [facility] [address] [id number] [facility] [place] [address] Jan, [facility] [address] [id number] [address] [place] [address], [place] [address] Jan, [facility] [address] [id number] [address] [place] [address], [place] [address] Dec, [facility] [address] [id number] [address] [place] [address], [place] [address] Dec, [facility] [address] [id number] [address] [place] [address], [place] [address] Dec, [facility] [address] [id number] [address] [place] [address], [place] [address] 14 Dec, 2012 [facility] [address] [id number] [address] [place] [address], [place] [address] Dec, [facility] [address] [id number] [address] [place] [address], [place] [address] Dec, [facility] [address] [id number] [address] [place] [address], [place] [address] Dec, [facility] [address] [id number] [address] [place] [address], [place] [address] Dec, [facility] [address] [id number] [address] [place] [address], [place] [address] 05 Dec, 2012 [facility] [address] [id number] [address] [place] [address], [place] [address] Dec, [facility] [address] [id number] [address] [place] [address], [place] [address] November, [facility] [address] [id number] [address] [place] [address], [place] [address] November, [facility] [address] [id number] [address] [place] [address], [place] [address] November, [facility] [address] [id number] [address] [place] [address], [place] [address] November, [facility] [address] [id number] [address] [place] [address], [place] [address] November, [facility] [address] [id number] [address] [place] [address], [place] [address] Oct, [facility] [address] [id number] [address] [place] [address], [place] [address] Oct, [facility] [address] [id number] [address] [place] [address], [place] [address] Oct, [facility] [address] [id number] [address] [place] [address], [place] [address] Oct, [facility] [address] [id number] [address] [place] [address], [place] [address] Oct, [facility] [address] [id number] [address] [place] [address], [place] [address] Sep, [facility] [address] [id number] [address] [place] [address], [place] [address] Sep, [facility] [address] [id number] [address] [place] [address], [place] [address] Sep, [facility] [address] [id number] [address] [place] [address], [place] [address] Sep, [facility] [address] [id number] [address] [place] [address], [place] [address] Aug, [facility] [address] [id number] [address] [place] [address], [place] [address] Aug, [facility] [address] [id number] [address] [place] [address], [place] [address] Aug, [facility] [address] [id number] [address] [place] [address], [place] [address] 15 Aug, 2012 [facility] [address] [id number] [address] [place] [address], [place] [address] Jun, [facility] [address] [id number] [address] [place] [address], [place] [address] Jun, [facility] [address] [id number] [address] [place] [address], [place] [address] Jun, [facility] [address] [id number] [address] [place] [address], [place] [address] Jun, [facility] [address] [id number] [address] [place] [address], [place] [address] Jun, [facility] [address] [id number] [address] [place] [address], [place] [address] Jun, [facility] [address] [id number] [address] [place] [address], [place] [address] Jun, [facility] [address] [id number] [address] [place] [address], [place] [address] Jun, [facility] [address] [id number] [address] [place] [address], [place] [address] Jun, [facility] [address] [id number] [address] [place] [address], [place] [address] Jun, [facility] [address] [id number] [address] [place] [address], [place] [address] May, [facility] [address] [id number] [address] [place] [address], [place] [address] May, [facility] [address] [id number] [address] [place] [address], [place] [address] May, [facility] [address] [id number] [address] [place] [address], [place] [address] May, [facility] [address] [id number] [address] [place] [address], [place] [address] May, [facility] [address] [id number] [address] [place] [address], [place] [address] 16 May, 2012 [facility] [address] [id number] [address] [place] [address], [place] [address] 16 May, 2012 [facility] [address] [id number] [address] [place] [address], [place] [address] 14 May, 2012 [facility] [address] [id number] [address] [place] [address], [place] [address] 14 May, 2012 [facility] [address] [id number] [address] [place] [address], [place] [address] 30 Apr, 2012 [facility] [address] [id number] [address] [place] [address], [place] [address] 30 Apr, 2012 [facility] [address] [id number] [address] [place] [address], [place] [address] 17 Apr, 2012 [facility] [address] [id number] [address] [place] [address], [place] [address] 17 Apr, 2012 [facility] [address] [id number] [address] [place] [address], [place] [address] 09 Apr, 2012 [facility] [address] [id number] [address] [place] [address] 18 Mar, 2012 [facility] [address] [id number] [address] [place] [address] 17 Mar, 2012 [facility] [address] [id number] [address] [place] [address] 07 Mar, 2012 [facility] [address] [id number] [address] [place] [address], [place] [address] 27 Feb, 2012 [facility] [address] [id number] [address] [place] [address] 16 Feb, 2012 [facility] [address] [id number] [address] [place] [address] 15 Feb, 2012 [facility] [address] [id number] [address] [place] [address] Feb, [facility] [address] [id number] [address] [place] [address], [place] [address] Jan, [facility] [address] [id number] [address] [place] [address], [place] [address] Jan, [facility] [address] [id number] [address] [place] [address], [place] [address] Jan, [facility] [address] [id number] [address] [place] [address], [place] [address] Jan, [facility] [address] [id number] [address] [place] [address], [place] [address] Jan, [facility] [address] [id number] [address] [place] [address], [place] [address] Jan, [facility] [address] [id number] [address] [place] [address], [place] [address] Dec, [facility] [address] [id number] [address] [place] [address], [place] [address] Dec, [facility] [address] [id number] [address] [place] [address], [place] [address] Dec, [facility] [address] [id number] [address] [place] [address], [place] [address] November, [facility] [address] [id number] [address] [place] [address], [place] [address] November, [facility] [address] [id number] [address] [place] [address], [place] [address] November, [facility] [address] [id number] [address] [place] [address], [place] [address] November, [facility] [address] [id number] [address] [place] [address], [place] [address] Oct, [facility] [address] [id number] [address] [place] [address], [place] [address] Oct, [facility] [address] [id number] [address] [place] [address], [place] [address] Oct, [facility] [address] [id number] [address] [place] [address], [place] [address] Sep, [facility] [address] [id number] [address] [place] [address], [place] [address] Sep, [facility] [address] [id number] [address] [place] [address], [place] [address] Aug, [facility] [address] [id number] [address] [place] [address], [place] [address] Aug, [facility] [address] [id number] [address] [place] [address], [place] [address] Aug, [facility] [address] [id number] [address] [place] [address], [place] [address] Aug, [facility] [address] [id number] [address] [place] [address], [place] [address] Jul, [facility] [address] [id number] [address] [place] [address], [place] [address] Jul, [facility] [address] [id number] [address] [place] [address], [place] [address] Jul, [facility] [address] [id number] [address] [place] [address], [place] [address] Jul, [facility] [address] [id number] [address] [place] [address], [place] [address] Jul, [facility] [address] [id number] [address] [place] [address], [place] [address] Jul, [facility] [address] [id number] [address] [place] [address], [place] [address] Jul, [facility] [address] [id number] [address] [place] [address], [place] [address] Jul, [facility] [address] [id number] [address] [place] [address] 30 Jun, 2011 [facility] [address] [id number] [address] [place] [address], [place] [address] Jun, [facility] [address] [id number] [address] [place] [address], [place] [address] Jun, [facility] [address] [id number] [address] [place] [address] 08 Jun, 2011 [facility] [address] [id number] [address] [place] [address] Jun, [facility] [address] [id number] [address] [place] [address], [place] [address] May, [facility] [address] [id number] [address] [place] [address] May, [facility] [address] [id number] [address] [place] [address], [place] [address] May, [facility] [address] [id number] [address] [place] [address] May, [facility] [address] [id number] [address] [place] [address] May, [facility] [address] [id number] [address] [place] [address] May, [facility] [address] [id number] [address] [place] [address] Apr, [facility] [address] [id number] [address] [place] [address] Apr, [facility] [address] [id number] [address] [place] [address], [place] [address] Apr, [facility] [address] [id number] [address] [place] [address] Feb, [facility] [address] [id number] [address] [place] [address] Feb, [facility] [address] [id number] [address] [place] [address] Oct, [facility] [address] [id number] [address] [place] [address] Jul, [facility] [address] [id number] [address] [place] [address] Jul, [facility] [address] [id number] [address] [place] [address] Jun, [facility] [address] [id number] [address] [place] [address] May, [facility] [address] [id number] [address] [place] [address] May, [facility] [address] [id number] [address] [place] [address] May, [facility] [address] [id number] [address] [place] [address] Apr, [facility] [address] [id number] [address] [place] [address] Jan, [facility] [address] [id number] [address] [place] [address] November, IMMUNIZATIONS No Known Immunizations SOCIAL HISTORY [...]
[2020-01-31 09:39] LABS: ALKALINE PHOSPHATASE 112 U/L (40-136)
[2020-01-31 09:39] LABS: AMPHETAMINE SCREEN, URINE NEGATIVE (NEGATIVE); BARBITURATE SCREEN URINE NEGATIVE (NEGATIVE); BENZODIAZEPINES SCREEN URINE NEGATIVE (NEGATIVE); CANNABINOID SCREEN, URINE NEGATIVE (NEGATIVE); COCAINE SCREEN URINE NEGATIVE (NEGATIVE); METHADONE STAT NEGATIVE (NEGATIVE); METHAMPHETAMINE SCREEN URINE S NEGATIVE (NEGATIVE); OPIATE SCREEN URINE NEGATIVE (NEGATIVE); OXYCODONE STAT NEGATIVE (NEGATIVE); PROPOXYPHENE STAT NEGATIVE (NEGATIVE); TRICYCLIC ANTIDEPRESSANTS SCRE NEGATIVE (NEGATIVE)
--- OUTSIDE RECORDS SUMMARY | 2020-01-31 09:39 | XMS REPORT ---
Author Author Ivet BRISENO Y Organization [facility] Address [address] [place] [address] Care Team Providers Care Wire Chief Name Role Phone LINDY BRISENO Unavailable PROBLEMS Type Condition ICD9-CM Code CIM38-QS Code Onset Dates Condition S tatus SNOMED Code Problem Osteoarthritis M19.90 Active 06146 5006 Problem Bilateral carotid artery disease I77.9 Active 683808669 Problem Stage 3 chronic kidney disease N18.3 Active 379875242 Problem Essential hypertension I10 Active 87347672 Problem Acquired hypothyroidism E03.9 Active 728606735 Problem GERD (gastroesophageal reflux disease) K21.9 Active 610747801 Problem Seasonal allergic rhinitis due to pollen J30.1 Active 23762064 Problem Schizo affective schizophrenia F25.0 Active 508929170 Problem Fibromyalgia M79.7 Active 1264347 05 Problem Vitamin D deficiency E55.9 Active 31007346 Problem Iron deficiency anemia, unspecified iron deficiency an emia type D50.9 Active 71410199 Problem Secondary hyperparathyroidism, not elsewhere classified E21.1 Active 32680178 ALLERGIES No Information ENCOUNTERS Encounter Location Date Diagnosis [facility] [address] [facility] [id number] [address] [place] [id number] November, Seasonal allergic rhinitis d ue to pollen J30.1 [facility] [address] [facility] [id number] [address] [place] [address] 14 Oct, 2019 Lumbar radiculopathy M54.16 ; Fibromyalgia M79.7 ; Essential hypertension I10 and GERD (gastroesophageal reflux disease) K21.9 [facility] [address] [facility] [id number] [address] [place] [address] 03 Oct, 2019 Osteoarthritis M19.90 [facility] [address] [place] [id number] [address] [place] [address] Sep, [facility] [address] [facility] [id number] [address] [place] [address] Aug, Osteoarthritis M19.90 [facility] [address] [facility] [id number] [address] [place] [address] Jul, Osteoarthritis M19.90 [facility] [address] [facility] [id number] [address] [place] [address] Jun, Osteoarthritis M19.90 [facility] [address] [facility] [id number] [address] [place] [address] Jun, Herpes zoster without compli cation B02.9 [facility] [address] [facility] [id number] [address] [place] [address] May, Osteoarthritis M19.90 [facility] [address] [facility] [id number] [address] [place] [address] May, [facility] [address] [facility] [id number] [address] [place] [address] Apr, [facility] [address] [facility] [id number] [address] [place] [address] Mar, Osteoarthritis M19.90 [facility] [address] [facility] [id number] [address] [place] [address] Mar, [facility] [address] [facility] [id number] [address] [place] [address] Feb, Lumbago with sciatica, left side M54.42 ; Lumbago with sciatica, right side M54.41 and Other chronic pain G89.29 [facility] [address] [facility] [id number] [address] [place] [address] Feb, Encounter for Medicare [facility] wellness exam Z00.00 ; Schizo affective schizophrenia F25.0 ; Essential hypertension I10 ; GERD (gastroesophageal reflux disease) K21.9 ; Secondary hyperparathyroidism, not elsewhere classified E21.1 ; Idiopathic peripheral neuropathy G60.9 ; Stage 3 chronic kidney disease N18.3 ; Acquired hypothyroidism E03.9 ; Bilateral carotid artery disease I77.9 and Hypothyroidism E03.9 [facility] [address] [facility] [id number] [address] [place] [address] Feb, Osteoarthritis M19.90 [facility] [address] [facility] [id number] [address] [place] [address] Jan, Osteoarthritis M19.90 [facility] [address] [facility] [id number] [address] [place] [address] Jan, Osteoarthritis M19.90 [facility] [address] [facility] [id number] [address] [place] [address] Dec, Acquired hypothyroidism E03. 9 [facility] [address] [facility] [id number] [address] [place] [address] Dec, Fibromyalgia M79.7 ; Hypothy roidism E03.9 ; Essential hypertension I10 and Sensory loss R20.[id number] [place] [address] November, Osteoarthritis M19.90 [facility] [address] [facility] [id number] [address] [place] [address] Oct, Osteoarthritis M19.90 [facility] [address] [facility] [id number] [address] [place] [address] Oct, Sore throat J02.9 and Acute nasopharyngitis J00 [facility] [address] [facility] [id number] [address] [place] [address] Sep, Osteoarthritis M19.90 [facility] [address] [facility] [id number] [address] [place] [address] Sep, Acute non-recurrent maxillar y sinusitis J01.00 [facility] [address] [facility] [id number] [address] [place] [address] Aug, Acute non-recurrent pansinus itis J01.40 [facility] [address] [facility] [id number] [address] [place] [address] Jul, Osteoarthritis M19.90 [facility] [address] [place] [id number] [address] [place] [address] Jul, [facility] [address] [address] Apr, Osteoarthritis M19.90 [facility] [address] [address] Apr, Fibromyalgia M79.7 ; Essenti al hypertension I10 ; Encounter for immunization Z23 ; Stage 3 chronic kidney disease N18.3 and Depression F32.9 [place] [address] [address] Dec, Fibromyalgia M79.7 ; Osteoar thritis M19.90 and Encounter for medication management Z79.899 [facility] [address] [address] November, Nausea and vomiting, intract ability of vomiting not specified, unspecified vomiting type R11.2 and Dizziness R42 [facility] [address] [address] November, Fibromyalgia M79.7 [facility] [address] [address] November, Medicare annual wellness vis it, initial Z00.00 ; Anxiety F41.9 ; Depression F32.9 ; Stage 3 chronic kidney disease N18.3 ; Fibromyalgia M79.7 ; Essential hypertension I10 ; Secondary hyperparathyroidism, not elsewhere classified E21.1 ; Osteoarthritis M19.90 ; Hypothyroidism E03.9 and Encounter for immunization Z23 [facility] [address] [address] Oct, [facility] [address] [address] Oct, Sebaceous cyst L72.3 [facility] [address] [address] Sep, Low back pain, unspecified b ack pain laterality, unspecified chronicity, with sciatica presence unspecified M54.5 and Secondary hyperparathyroidism, not elsewhere classified E21.1 [facility] [address] [address] Sep, Fibromyalgia M79.7 [facility] [address] [address] Sep, Fibromyalgia M79.7 ; Plantar fasciitis, bilateral M72.2 ; Essential hypertension I10 ; Depression F32.9 and Epidermoid cyst L72.0 [place] [address] [address] Jul, [place] [address] [address] Jul, Fibromyalgia M79.7 ; Iron de ficiency anemia, unspecified iron deficiency anemia type D50.9 and Acute nasopharyngitis J00 [facility] [address] [address] Jun, Sore throat J02.9 and Acute serous otitis media of left ear, recurrence not specified H65.02 [facility] [address] [address] Jun, Hypothyroidism E03.9 [place] [address] [address] Jun, [place] [address] [address] Jun, Hypothyroidism E03.9 ; Essen tial hypertension I10 and Osteoarthritis M19.90 [facility] [address] [address] 16 May, 2017 [facility] [address] [address] May, [place] [address] [address] Feb, [place] [address] [address] Feb, Leonela-menopausal N95.1 and To bacco use Z72.0 [place] [address] [address] Jan, [place] [address] [address] Jan, Osteoarthritis M19.90 ; Bila teral carotid artery disease I77.9 ; Raynauds syndrome I73.00 ; Essential hypertension I10 ; Allergic rhinitis J30.9 ; Stage 3 chronic kidney disease N18.3 ; Fibromyalgia M79.7 ; Hypothyroidism E03.9 ; GERD (gastroesophageal reflux disease) K21.9 and Vitamin D deficiency E55.9 [place] [address] [address] Dec, Raynauds syndrome I73.00 ; P lantar fascial fibromatosis M72.2 ; Osteoarthritis M19.90 and Fibromyalgia M79.7 [place] [address] [address] Dec, [place] [address] [address] Dec, [place] [address] [address] Oct, Function kidney decreased N2 8.9 [facility] [id number] [place] [id number] Oct, Dental examination Z01.20 [place] [address] [address] Oct, Essential hypertension I10 a nd Function kidney decreased N28.9 [facility] [address] [facility] [id number] [address] [place] [id number] Oct, Dental examination Z01.20 [facility] [address] [facility] [id number] [address] [place] [address] Oct, [facility] [address] [facility] [id number] [address] [place] [address] 24 Sep, 2016 Other specified disorders in volving the immune mechanism D89.89 and Schizo affective schizophrenia F25.0 [facility] [address] [facility] [id number] [address] [place] [address] 21 Sep, 2016 Schizo affective schizophren ia F25.0 [facility] [address] [facility] [id number] [address] [place] [address] 16 Sep, 2016 Eustachian tube dysfunction, bilateral H69.83 [place] [address] [facility] [id number] [address] [place] [address] 15 Sep, 2016 [facility] [address] [place] [id number] [address] [place] [address] 14 Sep, 2016 [facility] [address] [facility] [id number] [address] [place] [address] 14 Sep, 2016 [place] [address] [facility] [id number] [address] [place] [address] 13 Sep, 2016 Eustachian tube dysfunction, bilateral H69.83 [facility] [address] [facility] [id number] [address] [place] [address] 09 Sep, 2016 Allergic rhinitis J30.9 ; Es sential hypertension I10 ; Hypothyroidism E03.9 and Schizo affective schizophrenia F25.0 [facility] [address] [facility] [id number] [address] [place] [address] Jul, Eustachian tube dysfunction, bilateral H69.83 and Visit for TB skin test Z11.1 [facility] [address] [facility] [id number] [address] [place] [address] Jul, Subacute pansinusitis J01.40 [facility] [address] [facility] [id number] [address] [place] [address] 20 Dec, 2016 Schizo affective schizophren ia F25.0 ; Depression F32.9 ; Allergic rhinitis J30.9 ; Raynauds syndrome I73.00 ; Essential hypertension I10 ; Slow transit constipation K59.01 ; GERD (gastroesophageal reflux disease) K21.9 ; Hypothyroidism E03.9 ; Nicotine addiction F17.200 ; Other viral agents as the cause of diseases classified elsewhere B97.89 ; Acute upper respiratory infection, unspecified J06.9 and Osteoarthritis M19.90 [place] [address] [address] Jun, Allergic rhinitis J30.9 and GERD (gastroesophageal reflux disease) K21.9 [place] [address] [address] May, [place] [address] [address] Mar, Schizo affective schizophren ia F25.0 [place] [address] [address] Mar, Schizo affective schizophren ia F25.0 [place] [address] [place] [id number] [address] [place] [address] Mar, Schizo affective schizophren ia F25.0 [place] [address] [place] [id number] [address] [place] [address] Mar, Acute non-recurrent maxillar y sinusitis J01.00 [place] [address] [place] [id number] [address] [place] [address] Feb, Schizo affective schizophren ia F25.0 [place] [address] [place] [id number] [address] [place] [address] Feb, Contact dermatitis and eczem a L25.9 [place] [address] [place] [id number] [address] [place] [address] Jan, [place] [address] [place] [id number] [address] [place] [address] Jan, Schizo affective schizophren ia F25.0 ; Slow transit constipation K59.01 ; Essential hypertension I10 ; GERD (gastroesophageal reflux disease) K21.9 ; Hypothyroidism E03.9 ; Osteoarthritis M19.90 ; Low back pain, unspecified back pain laterality, unspecified chronicity, with sciatica presence unspecified M54.5 and Bilateral carotid artery disease I77.9 [place] [address] [address] Oct, [place] [address] [address] Sep, Hypothyroid E03.9 [place] [address] [address] Sep, Schizo affective schizophren ia F25.0 ; Depression F32.9 ; Anxiety F41.9 ; Allergic rhinitis J30.9 ; Raynauds syndrome I73.00 ; Insomnia G47.00 ; Essential hypertension I10 ; GERD (gastroesophageal reflux disease) K21.9 ; Hypothyroidism E03.9 and Vitamin D deficiency E55.9 [place] [address] [address] Sep, [place] [address] [address] Sep, [place] [address] [address] Aug, Allergic rhinitis J30.9 ; De pression F32.9 ; Anxiety F41.9 ; Raynauds syndrome I73.00 ; Insomnia G47.00 and GERD (gastroesophageal reflux disease) K21.9 [place] [address] [address] Aug, MONICA (secretory otitis media) H65.90 and Raynauds syndrome I73.00 [facility] [address] [place] [id number] [address] [place] [address] Jul, Acute otitis externa of both ears, unspecified type H60.503 [place] [address] [place] [id number] [address] [place] [address] Jun, [facility] [address] [address] Jun, Essential hypertension I10 ; Allergic rhinitis J30.9 ; Hypothyroidism E03.9 and Osteoarthritis M19.90 [facility] [address] [address] Jun, Routine adult health mainten ance Z00.00 ; Hypothyroidism E03.9 ; Essential hypertension I10 ; Insomnia G47.00 ; Nicotine addiction F17.200 ; Raynauds syndrome I73.00 ; GERD (gastroesophageal reflux disease) K21.9 ; Allergic rhinitis J30.9 ; Anxiety F41.9 ; Depression F32.9 and Schizo affective schizophrenia F25.0 [place] [address] [place] [id number] [address] [place] [address] May, Upper respiratory tract infe ction, unspecified type J06.9 [facility] [address] [place] [id number] [address] [place] [address] Mar, [facility] [id number] [place] [id number] Mar, [facility] [address] [place] [id number] [address] [place] [address] Mar, [place] [address] [place] [id number] [address] [place] [address] Mar, [facility] [address] [place] [id number] [address] [place] [address] Feb, Jaw pain 784.92 and Environm ental and seasonal allergies 477.8 [facility] [address] [place] [id number] [address] [place] [address] Feb, [facility] [address] [place] [id number] [address] [place] [address] Oct, [facility] [address] [place] [id number] [address] [place] [id number] 28 Oct, 2014 [facility] [address] [id number] [address] [place] [address], [place] [address] 14 Oct, 2014 [facility] [address] [id number] [address] [place] [address], [place] [address] Oct, [facility] [address] [id number] [address] [place] [address], [place] [address] Sep, [facility] [address] [id number] [address] [place] [address], [place] [address] Sep, [facility] [address] [id number] [address] [place] [address], [place] [address] Jul, [facility] [address] [id number] [address] [place] [address], [place] [address] Jul, [facility] [address] [id number] [address] [place] [address], [place] [address] Jul, [facility] [address] [id number] [address] [place] [address], [place] [address] Jul, [facility] [address] [id number] [address] [place] [address], [place] [address] Jul, [facility] [address] [id number] [address] [place] [address], [place] [address] Jul, [facility] [address] [id number] [address] [place] [address], [place] [address] Jul, [facility] [address] [id number] [address] [place] [address], [place] [address] Jun, [facility] [address] [id number] [address] [place] [address], [place] [address] Jun, [facility] [address] [id number] [address] [place] [address], [place] [address] Jun, [facility] [address] [id number] [address] [place] [address], [place] [address] 18 Jun, 2014 [facility] [address] [id number] [address] [place] [address], [place] [address] 17 Jun, 2014 [facility] [address] [id number] [address] [place] [address], [place] [address] Jun, [facility] [address] [id number] [address] [place] [address], [place] [address] Jun, [facility] [address] [id number] [address] [place] [address], [place] [address] Jun, [facility] [address] [id number] [address] [place] [address], [place] [address] Apr, [facility] [address] [id number] [address] [place] [address], [place] [address] Apr, [facility] [address] [id number] [address] [place] [address], [place] [address] Mar, [facility] [address] [id number] [address] [place] [address], [place] [address] Mar, [facility] [address] [id number] [address] [place] [address], [place] [address] Mar, [facility] [address] [id number] [address] [place] [address], [place] [address] Mar, [facility] [address] [id number] [address] [place] [address], [place] [address] Jan, [facility] [address] [id number] [address] [place] [address], [place] [address] Jan, [facility] [address] [id number] [address] [place] [address], [place] [address] Oct, [facility] [address] [id number] [address] [place] [address], [place] [address] Oct, [facility] [address] [id number] [address] [place] [address], [place] [address] Sep, [facility] [address] [id number] [address] [place] [address], [place] [address] Sep, [facility] [address] [id number] [address] [place] [address], [place] [address] Sep, [facility] [address] [id number] [address] [place] [address], [place] [address] Sep, [facility] [address] [id number] [address] [place] [address], [place] [address] Sep, [facility] [address] [id number] [address] [place] [address], [place] [address] Sep, [facility] [address] [id number] [address] [place] [address], [place] [address] Aug, [facility] [address] [id number] [address] [place] [address], [place] [address] Aug, [facility] [address] [id number] [address] [place] [address], [place] [address] Jul, [facility] [address] [id number] [address] [place] [address], [place] [address] Jul, [facility] [address] [id number] [address] [place] [address], [place] [address] Jul, [facility] [address] [id number] [address] [place] [address], [place] [address] Jul, [facility] [address] [id number] [address] [place] [address], [place] [address] Jun, [facility] [address] [id number] [address] [place] [address] Jun, [facility] [address] [id number] [address] [place] [address], [place] [address] May, [facility] [address] [id number] [address] [place] [address], [place] [address] May, [facility] [address] [id number] [address] [place] [address], [place] [address] Apr, [facility] [address] [id number] [address] [place] [address], [place] [address] Apr, [facility] [address] [id number] [address] [place] [address], [place] [address] Apr, [facility] [address] [id number] [address] [place] [address], [place] [address] Apr, [facility] [address] [id number] [address] [place] [address], [place] [address] Apr, [facility] [address] [id number] [address] [place] [address], [place] [address] Apr, [facility] [address] [id number] [address] [place] [address], [place] [address] 24 Mar, 2013 [facility] [address] [id number] [address] [place] [address], [place] [address] Mar, [facility] [address] [id number] [address] [place] [address], [place] [address] Mar, [facility] [address] [id number] [address] [place] [address], [place] [address] 05 Mar, 2013 [facility] [address] [id number] [address] [place] [address], [place] [address] 05 Mar, 2013 [facility] [address] [id number] [address] [place] [address], [place] [address] 30 Feb, 2013 [facility] [address] [id number] [address] [place] [address], [place] [address] Feb, [facility] [address] [id number] [address] [place] [address], [place] [address] Feb, [facility] [address] [id number] [address] [place] [address], [place] [address] Feb, [facility] [address] [id number] [address] [place] [address], [place] [address] Jan, [facility] [address] [id number] [address] [place] [address], [place] [address] Jan, [facility] [address] [address] [id number] [address] [place] [address], [place] [address] 16 Jan, 2013 [facility] [address] [id number] [address] [place] [address], [place] [address] Jan, [facility] [address] [id number] [address] [place] [address], [place] [address] Jan, [facility] [address] [id number] [address] [place] [address], [place] [address] Jan, [facility] [address] [id number] [address] [place] [address], [place] [address] Dec, [facility] [address] [id number] [address] [place] [address], [place] [address] 25 Dec, 2012 [facility] [address] [id number] [address] [place] [address], [place] [address] Dec, [facility] [address] [id number] [address] [place] [address], [place] [address] 14 Dec, 2012 [facility] [address] [id number] [address] [place] [address], [place] [address] Dec, [facility] [address] [id number] [address] [place] [address], [place] [address] Dec, [facility] [address] [id number] [address] [place] [address], [place] [address] Dec, [facility] [address] [id number] [address] [place] [address], [place] [address] 07 Dec, 2012 [facility] [address] [id number] [address] [place] [address], [place] [address] 05 Dec, 2012 [facility] [address] [id number] [address] [place] [address], [place] [address] Dec, [facility] [address] [id number] [address] [place] [address], [place] [address] November, [facility] [address] [id number] [address] [place] [address], [place] [address] November, [facility] [address] [id number] [address] [place] [address], [place] [address] November, [facility] [address] [id number] [address] [place] [address], [place] [address] November, [facility] [address] [id number] [address] [place] [address], [place] [address] November, [facility] [address] [id number] [address] [place] [address], [place] [address] Oct, [facility] [address] [id number] [address] [place] [address], [place] [address] Oct, [facility] [address] [id number] [address] [place] [address], [place] [address] Oct, [facility] [address] [id number] [address] [place] [address], [place] [address] Oct, [facility] [address] [id number] [address] [place] [address], [place] [address] Oct, [facility] [address] [id number] [address] [place] [address], [place] [address] Sep, [facility] [address] [id number] [address] [place] [address], [place] [address] Sep, [facility] [address] [id number] [address] [place] [address], [place] [address] Sep, [facility] [address] [id number] [address] [place] [address], [place] [address] Sep, [facility] [address] [id number] [address] [place] [address], [place] [address] Aug, [facility] [address] [id number] [address] [place] [address], [place] [address] Aug, [facility] [address] [id number] [address] [place] [address], [place] [address] Aug, [facility] [address] [id number] [address] [place] [address], [place] [address] 15 Aug, 2012 [facility] [address] [id number] [address] [place] [address], [place] [address] Jun, [facility] [address] [id number] [address] [place] [address], [place] [address] Jun, [facility] [address] [id number] [address] [place] [address], [place] [address] Jun, [facility] [address] [id number] [address] [place] [address], [place] [address] Jun, [facility] [address] [id number] [address] [place] [address], [place] [address] Jun, [facility] [address] [id number] [address] [place] [address], [place] [address] Jun, [facility] [address] [id number] [address] [place] [address], [place] [address] Jun, [facility] [address] [id number] [address] [place] [address], [place] [address] Jun, [facility] [address] [id number] [address] [place] [address], [place] [address] Jun, [facility] [address] [id number] [address] [place] [address], [place] [address] Jun, [facility] [address] [id number] [address] [place] [address], [place] [address] May, [facility] [address] [id number] [address] [place] [address], [place] [address] May, [facility] [address] [id number] [address] [place] [address], [place] [address] May, [facility] [address] [id number] [address] [place] [address], [place] [address] May, [facility] [address] [id number] [address] [place] [address], [place] [address] 26 May, 2012 [facility] [address] [id number] [address] [place] [address], [place] [address] 16 May, 2012 [facility] [address] [id number] [address] [place] [address], [place] [address] 16 May, 2012 [facility] [address] [id number] [address] [place] [address], [place] [address] 14 May, 2012 [facility] [address] [id number] [address] [place] [address], [place] [address] 14 May, 2012 [facility] [address] [id number] [address] [place] [address], [place] [address] 30 Apr, 2012 [facility] [address] [id number] [address] [place] [address], [place] [address] 30 Apr, 2012 [facility] [address] [id number] [address] [place] [address], [place] [address] 17 Apr, 2012 [facility] [address] [id number] [address] [place] [address], [place] [address] 17 Apr, 2012 [facility] [address] [id number] [address] [place] [address], [place] [address] 09 Apr, 2012 [facility] [address] [id number] [address] [place] [address], [place] [address] 18 Mar, 2012 [facility] [address] [id number] [address] [place] [address], [place] [address] 17 Mar, 2012 [facility] [address] [id number] [address] [place] [address], [place] [address] 07 Mar, 2012 [facility] [address] [id number] [address] [place] [address], [place] [address] 27 Feb, 2012 [facility] [address] [id number] [address] [place] [address], [place] [address] 16 Feb, 2012 [facility] [address] [id number] [address] [place] [address], [place] [address] 15 Feb, 2012 [facility] [address] [id number] [address] [place] [address], [place] [address] Feb, [facility] [address] [id number] [address] [place] [address], [place] [address] Jan, [facility] [address] [id number] [address] [place] [address], [place] [address] Jan, [facility] [address] [id number] [address] [place] [address], [place] [address] Jan, [facility] [address] [id number] [address] [place] [address], [place] [address] Jan, [facility] [address] [id number] [address] [place] [address], [place] [address] Jan, [facility] [address] [id number] [address] [place] [address], [place] [address] Jan, [facility] [address] [id number] [address] [place] [address], [place] [address] Dec, [facility] [address] [id number] [address] [place] [address], [place] [address] Dec, [facility] [address] [id number] [address] [place] [address], [place] [address] Dec, [facility] [address] [id number] [address] [place] [address], [place] [address] November, [facility] [address] [id number] [address] [place] [address], [place] [address] November, [facility] [address] [id number] [address] [place] [address], [place] [address] November, [facility] [address] [id number] [address] [place] [address], [place] [address] November, [facility] [address] [id number] [address] [place] [address], [place] [address] Oct, [facility] [address] [id number] [address] [place] [address], [place] [address] Oct, [facility] [address] [id number] [address] [place] [address], [place] [address] Oct, [facility] [address] [id number] [address] [place] [address], [place] [address] Sep, [facility] [address] [id number] [address] [place] [address], [place] [address] Sep, [facility] [address] [id number] [address] [place] [address], [place] [address] Aug, [facility] [address] [id number] [address] [place] [address], [place] [address] Aug, [facility] [address] [id number] [address] [place] [address], [place] [address] Aug, [facility] [address] [id number] [address] [place] [address], [place] [address] Aug, [facility] [address] [id number] [address] [place] [address], [place] [address] Jul, [facility] [address] [id number] [address] [place] [address], [place] [address] Jul, [facility] [address] [id number] [address] [place] [address], [place] [address] Jul, [facility] [address] [id number] [address] [place] [address], [place] [address] Jul, [facility] [address] [id number] [address] [place] [address], [place] [address] Jul, [facility] [address] [id number] [address] [place] [address], [place] [address] Jul, [facility] [address] [id number] [address] [place] [address], [place] [address] Jul, [facility] [address] [id number] [address] [place] [address], [place] [address] Jul, [facility] [address] [id number] [address] [place] [address], [place] [address] 30 Jun, 2011 [facility] [address] [id number] [address] [place] [address], [place] [address] Jun, [facility] [address] [id number] [address] [place] [address], [place] [address] 15 Jun, 2011 [facility] [address] [id number] [address] [place] [address], [place] [address] 08 Jun, 2011 [facility] [address] [id number] [address] [place] [address], [place] [address] Jun, [facility] [address] [id number] [address] [place] [address], [place] [address] May, [facility] [address] [id number] [address] [place] [address], [place] [address] May, [facility] [address] [id number] [address] [place] [address], [place] [address] 17 May, 2011 [facility] [address] [id number] [address] [place] [address], [place] [address] May, [facility] [address] [id number] [address] [place] [address], [place] [address] May, [facility] [address] [id number] [address] [place] [address], [place] [address] May, [facility] [address] [id number] [address] [place] [address], [place] [address] Apr, [facility] [address] [id number] [address] [place] [address], [place] [address] Apr, [facility] [address] [id number] [address] [place] [address], [place] [address] Apr, [facility] [address] [id number] [address] [place] [address], [place] [address] Feb, [facility] [address] [id number] [address] [place] [address], [place] [address] Feb, [facility] [address] [id number] [address] [place] [address] Oct, [facility] [address] [id number] [address] [place] [address] Jul, [facility] [address] [id number] [address] [place] [address] Jul, [facility] [address] [id number] [address] [place] [address] Jun, [facility] [address] [id number] [address] [place] [address] May, [facility] [address] [id number] [address] [place] [address] May, [facility] [address] [id number] [address] [place] [address] May, [facility] [address] [id number] [address] [place] [address] Apr, [facility] [address] [id number] [address] [place] [address] Jan, [facility] [address] [id number] [address] [place] [address] November, IMMUNIZATIONS No Known Immunizations SOCIAL HISTORY Never Assessed REASON FOR VISIT PLAN OF CARE VITAL SIGNS Height 70 in 2013-03-18 Weight 203 lbs 2013-03-18 Temperature 98.7 degrees Fahrenheit 2013-03-18 Heart Rate 100 bpm 2013-03-18 Respiratory Rate 24 2013-03-18 Blood pressure systolic 112 mmHg 2013-03-18 Blood pressure diastolic 84 mmHg 2013-03-18 MEDICATIONS No Known Medications RESULTS No Results [...]
--- OUTSIDE RECORDS SUMMARY | 2020-01-31 09:39 | XMS REPORT ---
Author Author Ivet BRISENO Y Organization [facility] Address [address] [place] [address] Care Team Providers Care Credit Consultant Name Role Phone LINDY BRISENO Unavailable PROBLEMS Type Condition ICD9-CM Code VTF05-FJ Code Onset Dates Condition S tatus SNOMED Code Problem Osteoarthritis M19.90 Active 96108 5006 Problem Bilateral carotid artery disease I77.9 Active 340167934 Problem Stage 3 chronic kidney disease N18.3 Active 518766878 Problem Essential hypertension I10 Active 34317553 Problem Acquired hypothyroidism E03.9 Active 358859546 Problem GERD (gastroesophageal reflux disease) K21.9 Active 999650693 Problem Seasonal allergic rhinitis due to pollen J30.1 Active 85809203 Problem Schizo affective schizophrenia F25.0 Active 551611221 Problem Fibromyalgia M79.7 Active 6517395 05 Problem Vitamin D deficiency E55.9 Active 19030673 Problem Iron deficiency anemia, unspecified iron deficiency an emia type D50.9 Active 87784199 Problem Secondary hyperparathyroidism, not elsewhere classified E21.1 Active 68611994 ALLERGIES No Information ENCOUNTERS Encounter Location Date Diagnosis [facility] [address] [facility] [id number] [address] [place] [phone] November, Seasonal allergic rhinitis d ue to pollen J30.1 [facility] [address] [facility] [id number] [address] [place] [phone] 14 Oct, 2019 Lumbar radiculopathy M54.16 ; Fibromyalgia M79.7 ; Essential hypertension I10 and GERD (gastroesophageal reflux disease) K21.9 [facility] [address] [facility] [id number] [address] [place] [phone] 03 Oct, 2019 Osteoarthritis M19.90 [facility] [address] [place] [id number] [address] [place] [phone] Sep, [facility] [address] [facility] [id number] [address] [place] [address] Aug, Osteoarthritis M19.90 [facility] [address] [facility] [id number] [address] [place] [phone] Jul, Osteoarthritis M19.90 [facility] [address] [facility] [id number] [address] [place] [phone] Jun, Osteoarthritis M19.90 [facility] [address] [facility] [id number] [address] [place] [phone] Jun, Herpes zoster without compli cation B02.9 [facility] [address] [facility] [id number] [address] [place] [address] May, Osteoarthritis M19.90 [facility] [address] [facility] [id number] [address] [place] [phone] May, [facility] [address] [facility] [id number] [address] [place] [address] Apr, [facility] [address] [facility] [id number] [address] [place] [address] Mar, Osteoarthritis M19.90 [facility] [address] [facility] [id number] [address] [place] [phone] Mar, [facility] [address] [facility] [id number] [address] [place] [address] Feb, Lumbago with sciatica, left side M54.42 ; Lumbago with sciatica, right side M54.41 and Other chronic pain G89.29 [facility] [address] [facility] [id number] [address] [place] [phone] Feb, [facility] Z[facility].00 ; Schizo affective schizophrenia F25.0 ; Essential hypertension I10 ; GERD (gastroesophageal reflux disease) K21.9 ; Secondary hyperparathyroidism, not elsewhere classified E21.1 ; Idiopathic peripheral neuropathy G60.9 ; Stage 3 chronic kidney disease N18.3 ; Acquired hypothyroidism E03.9 ; Bilateral carotid artery disease I77.9 and Hypothyroidism E03.9 [facility] [address] [facility] [id number] [address] [place] [address] Feb, Osteoarthritis M19.90 [facility] [address] [facility] [id number] [address] [place] [phone] Jan, Osteoarthritis M19.90 [facility] [address] [facility] [id number] [address] [place] [phone] Jan, Osteoarthritis M19.90 [facility] [address] [facility] [id number] [address] [place] [phone] Dec, Acquired hypothyroidism E03. 9 [facility] [address] [facility] [id number] [address] [place] [address] Dec, Fibromyalgia M79.7 ; Hypothy roidism E03.9 ; Essential hypertension I10 and Sensory loss R20.[id number] [place] [address] November, Osteoarthritis M19.90 [facility] [address] [facility] [id number] [address] [place] [address] Oct, Osteoarthritis M19.90 [facility] [address] [facility] [id number] [address] [place] [phone] Oct, Sore throat J02.9 and Acute nasopharyngitis J00 [facility] [address] [facility] [id number] [address] [place] [address] Sep, Osteoarthritis M19.[address] [facility] [address] [facility] [id number] [address] [place] [phone] Sep, Acute non-recurrent maxillar y sinusitis J01.00 [facility] [address] [facility] [id number] [address] [place] [address] Aug, Acute non-recurrent pansinus itis J01.40 [facility] [address] [facility] [id number] [address] [place] [address] Jul, Osteoarthritis M19.90 [facility] [address] [place] [id number] [address] [place] [address] Jul, [facility] [address] [address] Apr, Osteoarthritis M19.90 [facility] [address] [address] Apr, Fibromyalgia M79.7 ; Essenti al hypertension I10 ; Encounter for immunization Z23 ; Stage 3 chronic kidney disease N18.3 and Depression F32.9 [place] [address] [address] Dec, Fibromyalgia M79.7 ; Osteoar thritis M19.90 and Encounter for medication management Z79.899 [facility] [address] [address] November, Nausea and vomiting, intract ability of vomiting not specified, unspecified vomiting type R11.2 and Dizziness R42 [facility] [address] [address] November, Fibromyalgia M79.7 [facility] [address] [address] November, Medicare annual wellness vis it, initial Z00.00 ; Anxiety F41.9 ; Depression F32.9 ; Stage 3 chronic kidney disease N18.3 ; Fibromyalgia M79.7 ; Essential hypertension I10 ; Secondary hyperparathyroidism, not elsewhere classified E21.1 ; Osteoarthritis M19.90 ; Hypothyroidism E03.9 and Encounter for immunization Z23 [facility] [address] [address] Oct, [facility] [address] [address] Oct, Sebaceous cyst L72.3 [facility] [address] [address] Sep, Low back pain, unspecified b ack pain laterality, unspecified chronicity, with sciatica presence unspecified M54.5 and Secondary hyperparathyroidism, not elsewhere classified E21.1 [facility] [address] [address] Sep, Fibromyalgia M79.7 [facility] [address] [address] Sep, Fibromyalgia M79.7 ; Plantar fasciitis, bilateral M72.2 ; Essential hypertension I10 ; Depression F32.9 and Epidermoid cyst L72.0 [place] [address] [address] Jul, [place] [address] [address] Jul, Fibromyalgia M79.7 ; Iron de ficiency anemia, unspecified iron deficiency anemia type D50.9 and Acute nasopharyngitis J00 [facility] [address] [address] Jun, Sore throat J02.9 and Acute serous otitis media of left ear, recurrence not specified H65.02 [facility] [address] [address] Jun, Hypothyroidism E03.9 [place] [address] [address] Jun, [place] [address] [address] Jun, Hypothyroidism E03.9 ; Essen tial hypertension I10 and Osteoarthritis M19.90 [facility] [address] [address] 16 May, 2017 [facility] [address] [address] May, [place] [address] [address] Feb, [place] [address] [address] Feb, Leonela-menopausal N95.1 and To bacco use Z72.0 [place] [address] [address] Jan, [place] [address] [address] Jan, Osteoarthritis M19.90 ; Bila teral carotid artery disease I77.9 ; Raynauds syndrome I73.00 ; Essential hypertension I10 ; Allergic rhinitis J30.9 ; Stage 3 chronic kidney disease N18.3 ; Fibromyalgia M79.7 ; Hypothyroidism E03.9 ; GERD (gastroesophageal reflux disease) K21.9 and Vitamin D deficiency E55.9 [place] [address] [address] Dec, Raynauds syndrome I73.00 ; P lantar fascial fibromatosis M72.2 ; Osteoarthritis M19.90 and Fibromyalgia M79.7 [place] [address] [address] Dec, [place] [address] [address] Dec, [place] [address] [address] Oct, Function kidney decreased N2 8.9 [facility] [id number] [place] [id number] Oct, Dental examination Z01.20 [place] [address] [address] Oct, Essential hypertension I10 a nd Function kidney decreased N28.9 [facility] [address] [facility] [id number] [address] [place] [id number] Oct, Dental examination Z01.20 [facility] [address] [facility] [id number] [address] [place] [address] Oct, [facility] [address] [facility] [id number] [address] [place] [address] 24 Sep, 2016 Other specified disorders in volving the immune mechanism D89.89 and Schizo affective schizophrenia F25.0 [facility] [address] [facility] [id number] [address] [place] [address] 21 Sep, 2016 Schizo affective schizophren ia F25.0 [facility] [address] [facility] [id number] [address] [place] [address] 16 Sep, 2016 Eustachian tube dysfunction, bilateral H69.83 [place] [address] [facility] [id number] [address] [place] [address] 15 Sep, 2016 [facility] [address] [place] [id number] [address] [place] [address] 14 Sep, 2016 [facility] [address] [facility] [id number] [address] [place] [address] 14 Sep, 2016 [place] [address] [facility] [id number] [address] [place] [phone] 13 Sep, 2016 Eustachian tube dysfunction, bilateral H69.83 [facility] [address] [facility] [id number] [address] [place] [address] 09 Sep, 2016 Allergic rhinitis J30.9 ; Es sential hypertension I10 ; Hypothyroidism E03.9 and Schizo affective schizophrenia F25.0 [facility] [address] [facility] [id number] [address] [place] [address] Jul, Eustachian tube dysfunction, bilateral H69.83 and Visit for TB skin test Z11.1 [facility] [address] [facility] [id number] [address] [place] [address] Jul, Subacute pansinusitis J01.40 [facility] [address] [facility] [id number] [address] [place] [phone] 20 Dec, 2016 Schizo affective schizophren ia F25.0 ; Depression F32.9 ; Allergic rhinitis J30.9 ; Raynauds syndrome I73.00 ; Essential hypertension I10 ; Slow transit constipation K59.01 ; GERD (gastroesophageal reflux disease) K21.9 ; Hypothyroidism E03.9 ; Nicotine addiction F17.200 ; Other viral agents as the cause of diseases classified elsewhere B97.89 ; Acute upper respiratory infection, unspecified J06.9 and Osteoarthritis M19.90 [place] [address] [address] Jun, Allergic rhinitis J30.9 and GERD (gastroesophageal reflux disease) K21.9 [place] [address] [address] May, [place] [address] [address] Mar, Schizo affective schizophren ia F25.0 [place] [address] [address] Mar, Schizo affective schizophren ia F25.0 [place] [address] [place] [id number] [address] [place] [address] Mar, Schizo affective schizophren ia F25.0 [place] [address] [place] [id number] [address] [place] [address] Mar, Acute non-recurrent maxillar y sinusitis J01.00 [place] [address] [place] [id number] [address] [place] [phone] Feb, Schizo affective schizophren ia F25.0 [place] [address] [place] [id number] [address] [place] [phone] Feb, Contact dermatitis and eczem a L25.9 [place] [address] [place] [id number] [address] [place] [address] Jan, [place] [address] [place] [id number] [address] [place] [address] Jan, Schizo affective schizophren ia F25.0 ; Slow transit constipation K59.01 ; Essential hypertension I10 ; GERD (gastroesophageal reflux disease) K21.9 ; Hypothyroidism E03.9 ; Osteoarthritis M19.90 ; Low back pain, unspecified back pain laterality, unspecified chronicity, with sciatica presence unspecified M54.5 and Bilateral carotid artery disease I77.9 [place] [address] [address] Oct, [place] [address] [address] Sep, Hypothyroid E03.9 [place] [address] [address] Sep, Schizo affective schizophren ia F25.0 ; Depression F32.9 ; Anxiety F41.9 ; Allergic rhinitis J30.9 ; Raynauds syndrome I73.00 ; Insomnia G47.00 ; Essential hypertension I10 ; GERD (gastroesophageal reflux disease) K21.9 ; Hypothyroidism E03.9 and Vitamin D deficiency E55.9 [place] [id number] [address] Sep, [place] [address] [address] Sep, [place] [address] [address] Aug, Allergic rhinitis J30.9 ; De pression F32.9 ; Anxiety F41.9 ; Raynauds syndrome I73.00 ; Insomnia G47.00 and GERD (gastroesophageal reflux disease) K21.9 [place] [address] [address] Aug, MONICA (secretory otitis media) H65.90 and Raynauds syndrome I73.00 [facility] [address] [place] [id number] [address] [place] [address] Jul, Acute otitis externa of both ears, unspecified type H60.503 [place] [address] [place] [id number] [address] [place] [address] Jun, [facility] [address] [address] Jun, Essential hypertension I10 ; Allergic rhinitis J30.9 ; Hypothyroidism E03.9 and Osteoarthritis M19.90 [facility] [address] [address] Jun, Routine adult health mainten ance Z00.00 ; Hypothyroidism E03.9 ; Essential hypertension I10 ; Insomnia G47.00 ; Nicotine addiction F17.200 ; Raynauds syndrome I73.00 ; GERD (gastroesophageal reflux disease) K21.9 ; Allergic rhinitis J30.9 ; Anxiety F41.9 ; Depression F32.9 and Schizo affective schizophrenia F25.0 [place] [address] [place] [id number] [address] [place] [phone] May, Upper respiratory tract infe ction, unspecified type J06.9 [facility] [address] [place] [id number] [address] [place] [address] Mar, [facility] [id number] [place] [id number] Mar, [facility] [address] [place] [id number] [address] [place] [address] Mar, [place] [address] [place] [id number] [address] [place] [address] Mar, [facility] [address] [place] [id number] [address] [place] [address] Feb, Jaw pain 784.92 and Environm ental and seasonal allergies 477.8 [facility] [address] [place] [id number] [address] [place] [address] Feb, [facility] [address] [place] [id number] [address] [place] [address] Oct, [facility] [address] [place] [id number] [address] [place] [address] 28 Oct, 2014 [facility] [address] [id number] [address] [place] [address], [place] [address] 14 Oct, 2014 [facility] [address] [id number] [address] [place] [address], [place] [address] Oct, [facility] [address] [id number] [address] [place] [address], [place] [address] Sep, [facility] [address] [id number] [address] [place] [address], [place] [address] Sep, [facility] [address] [id number] [address] [place] [address], [place] [address] Jul, [facility] [address] [id number] [address] [place] [address], [place] [address] Jul, [facility] [address] [id number] [address] [place] [address], [place] [address] Jul, [facility] [address] [id number] [address] [place] [address], [place] [address] Jul, [facility] [address] [id number] [address] [place] [address], [place] [address] Jul, [facility] [address] [id number] [address] [place] [address], [place] [address] Jul, [facility] [address] [id number] [address] [place] [address], [place] [address] Jul, [facility] [address] [id number] [address] [place] [address], [place] [address] Jun, [facility] [address] [id number] [address] [place] [address], [place] [address] Jun, [facility] [address] [id number] [address] [place] [address], [place] [address] Jun, [facility] [address] [id number] [address] [place] [address], [place] [address] 18 Jun, 2014 [facility] [address] [id number] [address] [place] [address], [place] [address] 17 Jun, 2014 [facility] [address] [id number] [address] [place] [address], [place] [address] Jun, [facility] [address] [id number] [address] [place] [address], [place] [address] Jun, [facility] [address] [id number] [address] [place] [address], [place] [address] Jun, [facility] [address] [id number] [address] [place] [address], [place] [address] Apr, [facility] [address] [id number] [address] [place] [address], [place] [address] Apr, [facility] [address] [id number] [address] [place] [address], [place] [address] Mar, [facility] [address] [id number] [address] [place] [address], [place] [address] Mar, [facility] [address] [id number] [address] [place] [address], [place] [address] Mar, [facility] [address] [id number] [address] [place] [address], [place] [address] Mar, [facility] [address] [id number] [address] [place] [address], [place] [address] Jan, [facility] [address] [id number] [address] [place] [address], [place] [address] Jan, [facility] [address] [id number] [address] [place] [address], [place] [address] Oct, [facility] [address] [id number] [address] [place] [address], [place] [address] Oct, [facility] [address] [id number] [address] [place] [address], [place] [address] Sep, [facility] [address] [id number] [address] [place] [address], [place] [address] Sep, [facility] [address] [id number] [address] [place] [address], [place] [address] Sep, [facility] [address] [id number] [address] [place] [address], [place] [address] Sep, [facility] [address] [id number] [address] [place] [address], [place] [address] Sep, [facility] [address] [id number] [address] [place] [address], [place] [address] Sep, [facility] [address] [id number] [address] [place] [address], [place] [address] Aug, [facility] [address] [id number] [address] [place] [address], [place] [address] Aug, [facility] [address] [id number] [address] [place] [address], [place] [address] Jul, [facility] [address] [id number] [address] [place] [address], [place] [address] Jul, [facility] [address] [id number] [address] [place] [address], [place] [address] Jul, [facility] [address] [id number] [address] [place] [address], [place] [address] Jul, [facility] [address] [id number] [address] [place] [address], [place] [address] Jun, [facility] [address] [id number] [address] [place] [address] Jun, [facility] [address] [id number] [address] [place] [address], [place] [address] May, [facility] [address] [id number] [address] [place] [address], [place] [address] May, [facility] [address] [id number] [address] [place] [address], [place] [address] Apr, [facility] [address] [id number] [address] [place] [address], [place] [address] Apr, [facility] [address] [id number] [address] [place] [address], [place] [address] Apr, [facility] [address] [id number] [address] [place] [address], [place] [address] Apr, [facility] [address] [id number] [address] [place] [address], [place] [address] Apr, [facility] [address] [id number] [address] [place] [address], [place] [address] Apr, [facility] [address] [id number] [address] [place] [address], [place] [address] 24 Mar, 2013 [facility] [address] [id number] [address] [place] [address], [place] [address] Mar, [facility] [address] [id number] [address] [place] [address], [place] [address] Mar, [facility] [address] [id number] [address] [place] [address], [place] [address] 05 Mar, 2013 [facility] [address] [id number] [address] [place] [address], [place] [address] 05 Mar, 2013 [facility] [address] [id number] [address] [place] [address], [place] [address] 30 Feb, 2013 [facility] [address] [id number] [address] [place] [address], [place] [address] Feb, [facility] [address] [id number] [address] [place] [address], [place] [address] Feb, [facility] [address] [id number] [address] [place] [address], [place] [address] Feb, [facility] [address] [id number] [address] [place] [address], [place] [address] Jan, [facility] [address] [id number] [address] [place] [address], [place] [address] Jan, [facility] [address] [id number] [address] [place] [address], [place] [address] 16 Jan, 2013 [facility] [address] [id number] [address] [place] [address], [place] [address] Jan, [facility] [address] [id number] [address] [place] [address], [place] [address] Jan, [facility] [address] [id number] [address] [place] [address], [place] [address] Jan, [facility] [address] [address] [id number] [address] [place] [address], [place] [address] Dec, [facility] [address] [id number] [address] [place] [address], [place] [address] 25 Dec, 2012 [facility] [address] [id number] [address] [place] [address], [place] [address] Dec, [facility] [address] [id number] [address] [place] [address], [place] [address] 14 Dec, 2012 [facility] [address] [id number] [address] [place] [address], [place] [address] Dec, [facility] [address] [id number] [address] [place] [address], [place] [address] Dec, [facility] [address] [id number] [address] [place] [address], [place] [address] Dec, [facility] [address] [id number] [address] [place] [address], [place] [address] 07 Dec, 2012 [facility] [address] [id number] [address] [place] [address], [place] [address] 05 Dec, 2012 [facility] [address] [id number] [address] [place] [address], [place] [address] Dec, [facility] [address] [id number] [address] [place] [address], [place] [address] November, [facility] [address] [id number] [address] [place] [address], [place] [address] November, [facility] [address] [id number] [address] [place] [address], [place] [address] November, [facility] [address] [id number] [address] [place] [address], [place] [address] November, [facility] [address] [id number] [address] [place] [address], [place] [address] November, [facility] [address] [id number] [address] [place] [address], [place] [address] Oct, [facility] [address] [id number] [address] [place] [address], [place] [address] Oct, [facility] [address] [id number] [address] [place] [address], [place] [address] Oct, [facility] [address] [id number] [address] [place] [address], [place] [address] Oct, [facility] [address] [id number] [address] [place] [address], [place] [address] Oct, [facility] [address] [id number] [address] [place] [address], [place] [address] Sep, [facility] [address] [id number] [address] [place] [address], [place] [address] Sep, [facility] [address] [id number] [address] [place] [address], [place] [address] Sep, [facility] [address] [id number] [address] [place] [address], [place] [address] Sep, [facility] [address] [id number] [address] [place] [address], [place] [address] Aug, [facility] [address] [id number] [address] [place] [address], [place] [address] Aug, [facility] [address] [id number] [address] [place] [address], [place] [address] Aug, [facility] [address] [id number] [address] [place] [address], [place] [address] 15 Aug, 2012 [facility] [address] [id number] [address] [place] [address], [place] [address] Jun, [facility] [address] [id number] [address] [place] [address], [place] [address] Jun, [facility] [address] [id number] [address] [place] [address], [place] [address] Jun, [facility] [address] [id number] [address] [place] [address], [place] [address] Jun, [facility] [address] [id number] [address] [place] [address], [place] [address] Jun, [facility] [address] [id number] [address] [place] [address], [place] [address] Jun, [facility] [address] [id number] [address] [place] [address], [place] [address] Jun, [facility] [address] [id number] [address] [place] [address], [place] [address] Jun, [facility] [address] [id number] [address] [place] [address], [place] [address] Jun, [facility] [address] [id number] [address] [place] [address], [place] [address] Jun, [facility] [address] [id number] [address] [place] [address], [place] [address] May, [facility] [address] [id number] [address] [place] [address], [place] [address] May, [facility] [address] [id number] [address] [place] [address], [place] [address] May, [facility] [address] [id number] [address] [place] [address], [place] [address] May, [facility] [address] [id number] [address] [place] [address], [place] [address] 26 May, 2012 [facility] [address] [id number] [address] [place] [address], [place] [address] 16 May, 2012 [facility] [address] [id number] [address] [place] [address], [place] [address] 16 May, 2012 [facility] [address] [id number] [address] [place] [address], [place] [address] 14 May, 2012 [facility] [address] [id number] [address] [place] [address], [place] [address] 14 May, 2012 [facility] [address] [id number] [address] [place] [address], [place] [address] 30 Apr, 2012 [facility] [address] [id number] [address] [place] [address], [place] [address] 30 Apr, 2012 [facility] [address] [id number] [address] [place] [address], [place] [address] 17 Apr, 2012 [facility] [address] [id number] [address] [place] [address], [place] [address] 17 Apr, 2012 [facility] [address] [id number] [address] [place] [address], [place] [address] 09 Apr, 2012 [facility] [address] [id number] [address] [place] [address], [place] [address] 18 Mar, 2012 [facility] [address] [id number] [address] [place] [address], [place] [address] 17 Mar, 2012 [facility] [address] [id number] [address] [place] [address], [place] [address] 07 Mar, 2012 [facility] [address] [id number] [address] [place] [address], [place] [address] 27 Feb, 2012 [facility] [address] [id number] [address] [place] [address], [place] [address] 16 Feb, 2012 [facility] [address] [id number] [address] [place] [address], [place] [address] 15 Feb, 2012 [facility] [address] [id number] [address] [place] [address], [place] [address] Feb, [facility] [address] [id number] [address] [place] [address], [place] [address] Jan, [facility] [address] [id number] [address] [place] [address], [place] [address] Jan, [facility] [address] [id number] [address] [place] [address], [place] [address] Jan, [facility] [address] [id number] [address] [place] [address], [place] [address] Jan, [facility] [address] [id number] [address] [place] [address], [place] [address] Jan, [facility] [address] [id number] [address] [place] [address], [place] [address] Jan, [facility] [address] [id number] [address] [place] [address], [place] [address] Dec, [facility] [address] [id number] [address] [place] [address], [place] [address] Dec, [facility] [address] [id number] [address] [place] [address], [place] [address] Dec, [facility] [address] [id number] [address] [place] [address], [place] [address] November, [facility] [address] [id number] [address] [place] [address], [place] [address] November, [facility] [address] [id number] [address] [place] [address], [place] [address] November, [facility] [address] [id number] [address] [place] [address], [place] [address] November, [facility] [address] [id number] [address] [place] [address], [place] [address] Oct, [facility] [address] [id number] [address] [place] [address], [place] [address] Oct, [facility] [address] [id number] [address] [place] [address], [place] [address] Oct, [facility] [address] [id number] [address] [place] [address], [place] [address] Sep, [facility] [address] [id number] [address] [place] [address], [place] [address] Sep, [facility] [address] [id number] [address] [place] [address], [place] [address] Aug, [facility] [address] [id number] [address] [place] [address], [place] [address] Aug, [facility] [address] [id number] [address] [place] [address], [place] [address] Aug, [facility] [address] [id number] [address] [place] [address], [place] [address] Aug, [facility] [address] [id number] [address] [place] [address], [place] [address] Jul, [facility] [address] [id number] [address] [place] [address], [place] [address] Jul, [facility] [address] [id number] [address] [place] [address], [place] [address] Jul, [facility] [address] [id number] [address] [place] [address], [place] [address] Jul, [facility] [address] [id number] [address] [place] [address], [place] [address] Jul, [facility] [address] [id number] [address] [place] [address], [place] [address] Jul, [facility] [address] [id number] [address] [place] [address], [place] [address] Jul, [facility] [address] [id number] [address] [place] [address], [place] [address] Jul, [facility] [address] [id number] [address] [place] [address], [place] [address] 30 Jun, 2011 [facility] [address] [id number] [address] [place] [address], [place] [address] Jun, [facility] [address] [id number] [address] [place] [address], [place] [address] 15 Jun, 2011 [facility] [address] [id number] [address] [place] [address], [place] [address] 08 Jun, 2011 [facility] [address] [id number] [address] [place] [address], [place] [address] Jun, [facility] [address] [id number] [address] [place] [address], [place] [address] May, [facility] [address] [id number] [address] [place] [address], [place] [address] May, [facility] [address] [id number] [address] [place] [address], [place] [address] 17 May, 2011 [facility] [address] [id number] [address] [place] [address], [place] [address] May, [facility] [address] [id number] [address] [place] [address], [place] [address] May, [facility] [address] [id number] [address] [place] [address], [place] [address] May, [facility] [address] [id number] [address] [place] [address], [place] [address] Apr, [facility] [address] [id number] [address] [place] [address], [place] [address] Apr, [facility] [address] [id number] [address] [place] [address], [place] [address] Apr, [facility] [address] [id number] [address] [place] [address], [place] [address] Feb, [facility] [address] [id number] [address] [place] [address], [place] [address] Feb, [facility] [address] [id number] [address] [place] [address] Oct, [facility] [address] [id number] [address] [place] [address] Jul, [facility] [address] [id number] [address] [place] [address] Jul, [facility] [address] [id number] [address] [place] [address] Jun, [facility] [address] [id number] [address] [place] [address] May, [facility] [address] [id number] [address] [place] [address] May, [facility] [address] [id number] [address] [place] [address] May, [facility] [address] [id number] [address] [place] [address] Apr, [facility] [address] [id number] [address] [place] [address] Jan, [facility] [address] [id number] [address] [place] [address] November, IMMUNIZATIONS No Known Immunizations SOCIAL HISTORY [...]
--- OUTSIDE RECORDS SUMMARY | 2020-01-31 09:39 | XMS REPORT ---
Author Author Ivet Knott Doctor Organization [facility] Address Unknown Phone Unavailable Care Team Providers Care Division Service Manager Name Role Phone Migration, Doctor Unavailable Unavailable PROBLEMS Type Condition ICD9-CM Code BDI72-DT Code Onset Dates Condition S tatus SNOMED Code Problem Osteoarthritis M19.90 Active 09505 5006 Problem Bilateral carotid artery disease I77.9 Active 919234732 Problem Stage 3 chronic kidney disease N18.3 Active 299210250 Problem Essential hypertension I10 Active 98898022 Problem Acquired hypothyroidism E03.9 Active 819577164 Problem GERD (gastroesophageal reflux disease) K21.9 Active 430463402 Problem Seasonal allergic rhinitis due to pollen J30.1 Active 74427165 Problem Schizo affective schizophrenia F25.0 Active 653211697 Problem Fibromyalgia M79.7 Active 0742689 05 Problem Vitamin D deficiency E55.9 Active 09382579 Problem Iron deficiency anemia, unspecified iron deficiency an emia type D50.9 Active 16246751 Problem Secondary hyperparathyroidism, not elsewhere classified E21.1 Active 48459003 ALLERGIES No Information ENCOUNTERS Encounter Location Date Diagnosis [facility] IN [facility] [id number] [place] [id number] 11 Nov, 2019 Seasonal allergic rhinitis d ue to pollen J30.1 [facility] [id number] [place] [id number] 14 Oct, 2019 Lumbar radiculopathy M54.16 ; Fibromyalgia M79.7 ; Essential hypertension I10 and GERD (gastroesophageal reflux disease) K21.9 [facility] [id number] [place] [id number] 03 Oct, 2019 Osteoarthritis M19.90 [facility] [id number] [place] [id number] Sep, [facility] [id number] [place] [id number] Aug, Osteoarthritis M19.90 [facility] [address] [facility] [id number] [address] [place] [id number] Jul, Osteoarthritis M19.90 [facility] [address] [facility] [id number] [address] [place] [address] Jun, Osteoarthritis M19.90 [facility] [address] [facility] [id number] [address] [place] [address] Jun, Herpes zoster without compli cation B02.9 [facility] [address] [facility] [id number] [address] [place] [phone] May, Osteoarthritis M19.90 [facility] [address] [facility] [id number] [address] [place] [id number] May, [facility] [address] [id number] [address] [place] [id number] Apr, [facility] [address] [facility] [id number] [address] [place] [id number] Mar, Osteoarthritis M19.90 [facility] [address] [facility] [id number] [address] [place] [id number] Mar, [facility] [address] [facility] [id number] [address] [place] [id number] Feb, Lumbago with sciatica, left side M54.42 ; Lumbago with sciatica, right side M54.41 and Other chronic pain G89.29 [facility] [address] [facility] [id number] [address] [place] [address] Feb, Encounter for Medicare annua l wellness exam Z00.00 ; Schizo affective schizophrenia F25.0 ; Essential hypertension I10 ; GERD (gastroesophageal reflux disease) K21.9 ; Secondary hyperparathyroidism, not elsewhere classified E21.1 ; Idiopathic peripheral neuropathy G60.9 ; Stage 3 chronic kidney disease N18.3 ; Acquired hypothyroidism E03.9 ; Bilateral carotid artery disease I77.9 and Hypothyroidism E03.9 [facility] [address] [facility] [id number] [address] [place] [id number] Feb, Osteoarthritis M19.90 [facility] [address] [facility] [id number] [address] [place] [phone] Jan, Osteoarthritis M19.90 [facility] [address] [facility] [id number] [address] [place] [id number] Jan, Osteoarthritis M19.90 [facility] [address] [facility] [id number] [address] [place] [id number] Dec, Acquired hypothyroidism E03. 9 [facility] [address] [facility] [id number] [address] [place] [id number] Dec, Fibromyalgia M79.7 ; Hypothy roidism E03.9 ; Essential hypertension I10 and Sensory loss R20.[id number] [place] [address] November, Osteoarthritis M19.90 [facility] [address] [facility] [id number] [address] [place] [address] Oct, Osteoarthritis M19.90 [facility] [address] [facility] [id number] [address] [place] [id number] Oct, Sore throat J02.9 and Acute nasopharyngitis J00 [facility] [address] [id number] [address] [place] [id number] Sep, Osteoarthritis M19.90 [facility] [address] [facility] [id number] [address] [place] [id number] Sep, Acute non-recurrent maxillar y sinusitis J01.00 [facility] [address] [facility] [id number] [address] [place] [address] Aug, Acute non-recurrent pansinus itis J01.40 [facility] [address] [facility] [id number] [address] [place] [phone] Jul, Osteoarthritis M19.90 [facility] [address] [id number] [address] [place] [id number] Jul, [facility] [address] [address] Apr, Osteoarthritis M19.90 [place] [address] [address] Apr, Fibromyalgia M79.7 ; Essenti al hypertension I10 ; Encounter for immunization Z23 ; Stage 3 chronic kidney disease N18.3 and Depression F32.9 [facility] [address] [address] Dec, Fibromyalgia M79.7 ; Osteoar thritis M19.90 and Encounter for medication management Z79.899 [facility] [address] [address] November, Nausea and vomiting, intract ability of vomiting not specified, unspecified vomiting type R11.2 and Dizziness R42 [place] [address] [address] November, Fibromyalgia M79.7 [place] [address] [address] November, Medicare annual wellness vis it, initial Z00.00 ; Anxiety F41.9 ; Depression F32.9 ; Stage 3 chronic kidney disease N18.3 ; Fibromyalgia M79.7 ; Essential hypertension I10 ; Secondary hyperparathyroidism, not elsewhere classified E21.1 ; Osteoarthritis M19.90 ; Hypothyroidism E03.9 and Encounter for immunization Z23 [facility] [id number] [place] [id number] Oct, [place] [address] [address] Oct, Sebaceous cyst L72.3 [place] [address] [id number] [address] [place] [phone] Sep, Low back pain, unspecified b ack pain laterality, unspecified chronicity, with sciatica presence unspecified M54.5 and Secondary hyperparathyroidism, not elsewhere classified E21.1 [facility] [address] [place] [address] Sep, Fibromyalgia M79.7 [facility] [id number] [place] [phone] 05 Sep, 2017 Fibromyalgia M79.7 ; Plantar fasciitis, bilateral M72.2 ; Essential hypertension I10 ; Depression F32.9 and Epidermoid cyst L72.0 [facility] [address] [address] Jul, [facility] [address] [address] Jul, Fibromyalgia M79.7 ; Iron de ficiency anemia, unspecified iron deficiency anemia type D50.9 and Acute nasopharyngitis J00 [facility] IN [facility] [id number] [place] [address] Jun, Sore throat J02.9 and Acute serous otitis media of left ear, recurrence not specified H65.02 [place] [id number] [address] Jun, Hypothyroidism E03.9 [facility] [id number] [place] [address] Jun, [place] [address] [address] Jun, Hypothyroidism E03.9 ; Essen tial hypertension I10 and Osteoarthritis M19.90 [facility] [address] [place] [address] May, [facility] [address] [address] May, [place] [address] [id number] [address] [place] [phone] Feb, [place] [address] [address] Feb, Leonela-menopausal N95.1 and To bacco use Z72.0 [facility] [address] [address] Jan, [place] [address] [address] Jan, Osteoarthritis M19.90 ; Bila teral carotid artery disease I77.9 ; Raynauds syndrome I73.00 ; Essential hypertension I10 ; Allergic rhinitis J30.9 ; Stage 3 chronic kidney disease N18.3 ; Fibromyalgia M79.7 ; Hypothyroidism E03.9 ; GERD (gastroesophageal reflux disease) K21.9 and Vitamin D deficiency E55.9 [place] [address] [address] Dec, Raynauds syndrome I73.00 ; P lantar fascial fibromatosis M72.2 ; Osteoarthritis M19.90 and Fibromyalgia M79.7 [facility] [id number] [place] [address] Dec, [facility] [address] [address] Dec, [place] [address] [address] Oct, Function kidney decreased N2 8.9 [facility] [id number] [place] [id number] Oct, Dental examination Z01.20 [facility] [address] [place] [address] Oct, Essential hypertension I10 a nd Function kidney decreased N28.9 [facility] [id number] [place] [id number] Oct, Dental examination Z01.20 [facility] [id number] [address] [place] [id number] Oct, [facility] [id number] [place] [address] 24 Sep, 2016 Other specified disorders in volving the immune mechanism D89.89 and Schizo affective schizophrenia F25.0 [facility] [id number] [address] [place] [id number] 21 Sep, 2016 Schizo affective schizophren ia F25.0 [facility] [address] [address] 16 Sep, 2016 Eustachian tube dysfunction, bilateral H69.83 [place] [address] [address] 15 Sep, 2016 [address] [address] [address] 14 Sep, 2016 [address] [address] [address] 14 Sep, 2016 [address] [address] [address] 13 Sep, 2016 Eustachian tube dysfunction, bilateral H69.83 [place] [address] [address] 09 Sep, 2016 Allergic rhinitis J30.9 ; Es sential hypertension I10 ; Hypothyroidism E03.9 and Schizo affective schizophrenia F25.0 [place] [address] [address] Jul, Eustachian tube dysfunction, bilateral H69.83 and Visit for TB skin test Z11.1 [facility] [address] [address] Jul, Subacute pansinusitis J01.40 [facility] [address] [address] Jun, Schizo affective schizophren ia F25.0 ; Depression F32.9 ; Allergic rhinitis J30.9 ; Raynauds syndrome I73.00 ; Essential hypertension I10 ; Slow transit constipation K59.01 ; GERD (gastroesophageal reflux disease) K21.9 ; Hypothyroidism E03.9 ; Nicotine addiction F17.200 ; Other viral agents as the cause of diseases classified elsewhere B97.89 ; Acute upper respiratory infection, unspecified J06.9 and Osteoarthritis M19.90 [address] [address] [address] Jun, Allergic rhinitis J30.9 and GERD (gastroesophageal reflux disease) K21.9 [place] [address] [address] 18 May, 2016 [address] [address] [address] Mar, Schizo affective schizophren ia F25.0 [place] [address] [address] Mar, Schizo affective schizophren ia F25.0 [address] [address] [address] Mar, Schizo affective schizophren ia F25.0 [address] [address] [address] Mar, Acute non-recurrent maxillar y sinusitis J01.00 [place] [address] [address] Feb, Schizo affective schizophren ia F25.0 [address] [address] [address] Feb, Contact dermatitis and eczem a L25.9 [place] [address] [address] Jan, [place] [address] [address] Jan, Schizo affective schizophren ia F25.0 ; Slow transit constipation K59.01 ; Essential hypertension I10 ; GERD (gastroesophageal reflux disease) K21.9 ; Hypothyroidism E03.9 ; Osteoarthritis M19.90 ; Low back pain, unspecified back pain laterality, unspecified chronicity, with sciatica presence unspecified M54.5 and Bilateral carotid artery disease I77.9 [address] [address] [address] Oct, [address] [address] [address] Sep, Hypothyroid E03.9 [place] [address] [address] Sep, Schizo affective schizophren ia F25.0 ; Depression F32.9 ; Anxiety F41.9 ; Allergic rhinitis J30.9 ; Raynauds syndrome I73.00 ; Insomnia G47.00 ; Essential hypertension I10 ; GERD (gastroesophageal reflux disease) K21.9 ; Hypothyroidism E03.9 and Vitamin D deficiency E55.9 [place] [address] [address] Sep, [place] [address] [address] Sep, [place] [address] [address] Aug, Allergic rhinitis J30.9 ; De pression F32.9 ; Anxiety F41.9 ; Raynauds syndrome I73.00 ; Insomnia G47.00 and GERD (gastroesophageal reflux disease) K21.9 [place] [address] [address] Aug, MONICA (secretory otitis media) H65.90 and Raynauds syndrome I73.00 [facility] [place] [address] [address] Jul, Acute otitis externa of both ears, unspecified type H60.503 [place] [address] [address] Jun, [place] [id number] [place] [address] Jun, Essential hypertension I10 ; Allergic rhinitis J30.9 ; Hypothyroidism E03.9 and Osteoarthritis M19.90 [facility] [address] [address] Jun, Routine adult health mainten ance Z00.00 ; Hypothyroidism E03.9 ; Essential hypertension I10 ; Insomnia G47.00 ; Nicotine addiction F17.200 ; Raynauds syndrome I73.00 ; GERD (gastroesophageal reflux disease) K21.9 ; Allergic rhinitis J30.9 ; Anxiety F41.9 ; Depression F32.9 and Schizo affective schizophrenia F25.0 [place] [address] [address] May, Upper respiratory tract infe ction, unspecified type J06.9 [place] [address] [address] Mar, [facility] [id number] [place] [id number] Mar, [place] [address] [address] Mar, [place] [address] [address] Mar, [place] [address] [address] Feb, Jaw pain 784.92 and Environm ental and seasonal allergies 477.8 [facility] [id number] [place] [address] Feb, [facility] [address] [address] Oct, [place] [address] [address] Oct, [facility] [address] [address] 14 Oct, 2014 [facility] [address] [id number] [address] [place] [address], [place] [address] Oct, [facility] [address] [id number] [address] [place] [address], [place] [address] Sep, [facility] [address] [id number] [address] [place] [address], [place] [address] Sep, [facility] [address] [id number] [address] [place] [address], [place] [address] Jul, [facility] [address] [id number] [address] [place] [address], [place] [address] Jul, [facility] [address] [id number] [address] [place] [address], [place] [address] Jul, [facility] [address] [id number] [address] [place] [address], [place] [address] Jul, [facility] [address] [id number] [address] [place] [address], [place] [address] Jul, [facility] [address] [id number] [address] [place] [address], [place] [address] Jul, [facility] [address] [id number] [address] [place] [address], [place] [address] Jul, [facility] [address] [id number] [address] [place] [address], [place] [address] Jun, [facility] [address] [id number] [address] [place] [address], [place] [address] 31 Jun, 2014 [facility] [address] [id number] [address] [place] [address], [place] [address] 22 Jun, 2014 [facility] [address] [id number] [address] [place] [address], [place] [address] 18 Jun, 2014 [facility] [address] [id number] [address] [place] [address], [place] [address] 17 Jun, 2014 [facility] [address] [id number] [address] [place] [address], [place] [address] 17 Jun, 2014 [facility] [address] [id number] [address] [place] [address], [place] [address] Jun, [facility] [address] [id number] [address] [place] [address], [place] [address] Jun, [facility] [address] [id number] [address] [place] [address], [place] [address] Apr, [facility] [address] [id number] [address] [place] [address], [place] [address] Apr, [facility] [address] [id number] [address] [place] [address], [place] [address] Mar, [facility] [address] [id number] [address] [place] [address], [place] [address] Mar, [facility] [address] [id number] [address] [place] [address], [place] [address] Mar, [facility] [address] [id number] [address] [place] [address], [place] [address] Mar, [facility] [address] [id number] [address] [place] [address], [place] [address] Jan, [facility] [address] [id number] [address] [place] [address], [place] [address] Jan, [facility] [address] [id number] [address] [place] [address], [place] [address] Oct, [facility] [address] [id number] [address] [place] [address], [place] [address] Oct, [facility] [address] [id number] [address] [place] [address], [place] [address] Sep, [facility] [address] [id number] [address] [place] [address], [place] [address] Sep, [facility] [address] [id number] [address] [place] [address], [place] [address] Sep, [facility] [address] [id number] [address] [place] [address], [place] [address] Sep, [facility] [address] [id number] [address] [place] [address], [place] [address] Sep, [facility] [address] [id number] [address] [place] [address], [place] [address] Sep, [facility] [address] [id number] [address] [place] [address], [place] [address] Aug, [facility] [address] [id number] [address] [place] [address], [place] [address] Aug, [facility] [address] [id number] [address] [place] [address], [place] [address] Jul, [facility] [address] [id number] [address] [place] [address], [place] [address] Jul, [facility] [address] [id number] [address] [place] [address], [place] [address] Jul, [facility] [address] [id number] [address] [place] [address], [place] [address] Jul, [facility] [address] [id number] [address] [place] [address], [place] [address] Jun, [facility] [address] [id number] [address] [place] [address], [place] [address] Jun, [facility] [address] [id number] [address] [place] [address] May, [facility] [address] [id number] [address] [place] [address], [place] [address] May, [facility] [address] [id number] [address] [place] [address], [place] [address] Apr, [facility] [address] [id number] [address] [place] [address], [place] [address] Apr, [facility] [address] [id number] [address] [place] [address] [place] [address] Apr, [facility] [address] [id number] [address] [place] [address], [place] [address] Apr, [facility] [address] [id number] [address] [place] [address], [place] [address] Apr, [facility] [address] [id number] [address] [place] [address], [place] [address] Apr, [facility] [address] [id number] [address] [place] [address], [place] [address] 24 Mar, 2013 [facility] [address] [id number] [address] [place] [address], [place] [address] 12 Mar, 2013 [facility] [address] [id number] [address] [place] [address], [place] [address] 09 Mar, 2013 [facility] [address] [id number] [address] [place] [address], [place] [address] 05 Mar, 2012 [facility] [address] [id number] [address] [place] [address], [place] [address] 05 Mar, 2013 [facility] [address] [id number] [address] [place] [address], [place] [address] 30 Feb, 2013 [facility] [address] [id number] [address] [place] [address], [place] [address] Feb, [facility] [address] [id number] [address] [place] [address], [place] [address] Feb, [facility] [address] [id number] [address] [place] [address], [place] [address] Feb, [facility] [address] [id number] [address] [place] [address], [place] [address] Jan, [facility] [address] [id number] [address] [place] [address], [place] [address] Jan, [facility] [address] [id number] [address] [place] [address], [place] [address] 16 Jan, 2013 [facility] [address] [id number] [facility] [place] [address] Jan, [facility] [address] [id number] [address] [place] [address], [place] [address] Jan, [facility] [address] [id number] [address] [place] [address], [place] [address] Jan, [facility] [address] [id number] [address] [place] [address], [place] [address] Dec, [facility] [address] [id number] [address] [place] [address], [place] [address] Dec, [facility] [address] [id number] [address] [place] [address], [place] [address] Dec, [facility] [address] [id number] [address] [place] [address], [place] [id number] 14 Dec, 2012 [facility] [address] [id number] [address] [place] [address], [place] [address] Dec, [facility] [address] [id number] [address] [place] [address], [place] [address] Dec, [facility] [address] [id number] [address] [place] [address], [place] [address] Dec, [facility] [address] [id number] [address] [place] [address], [place] [address] Dec, [facility] [address] [id number] [address] [place] [address], [place] [address] Dec, [facility] [address] [id number] [address] [place] [address], [place] [address] Dec, [facility] [address] [id number] [address] [place] [address], [place] [address] November, [facility] [address] [id number] [address] [place] [address], [place] [address] November, [facility] [address] [id number] [address] [place] [address], [place] [address] November, [facility] [address] [id number] [address] [place] [address], [place] [address] November, [facility] [address] [id number] [address] [place] [address], [place] [address] November, [facility] [address] [id number] [address] [place] [address], [place] [address] Oct, [facility] [address] [id number] [address] [place] [address], [place] [address] Oct, [facility] [address] [id number] [address] [place] [address], [place] [address] Oct, [facility] [address] [id number] [address] [place] [address], [place] [address] Oct, [facility] [address] [id number] [address] [place] [address], [place] [address] Oct, [facility] [address] [id number] [address] [place] [address], [place] [address] Sep, [facility] [address] [id number] [address] [place] [address], [place] [address] Sep, [facility] [address] [id number] [address] [place] [address], [place] [address] Sep, [facility] [address] [id number] [address] [place] [address], [place] [address] Sep, [facility] [address] [id number] [address] [place] [address], [place] [address] Aug, [facility] [address] [id number] [address] [place] [address], [place] [address] Aug, [facility] [address] [id number] [address] [place] [address], [place] [address] Aug, [facility] [address] [id number] [address] [place] [address], [place] [address] Aug, [facility] [address] [id number] [address] [place] [address], [place] [address] 17 Jun, 2012 [facility] [address] [id number] [address] [place] [address], [place] [address] 17 Jun, 2012 [facility] [address] [id number] [address] [place] [address], [place] [address] Jun, [facility] [address] [id number] [address] [place] [address], [place] [address] Jun, [facility] [address] [id number] [address] [place] [address], [place] [address] Jun, [facility] [address] [id number] [address] [place] [address], [place] [address] Jun, [facility] [address] [id number] [address] [place] [address], [place] [address] Jun, [facility] [address] [id number] [address] [place] [address], [place] [address] Jun, [facility] [address] [id number] [address] [place] [address], [place] [address] Jun, [facility] [address] [id number] [address] [place] [address], [place] [address] Jun, [facility] [address] [id number] [address] [place] [address], [place] [address] May, [facility] [address] [id number] [address] [place] [address], [place] [address] May, [facility] [address] [id number] [address] [place] [address], [place] [address] May, [facility] [address] [id number] [address] [place] [address], [place] [address] May, [facility] [address] [id number] [address] [place] [address], [place] [address] May, [facility] [address] [id number] [address] [place] [address], [place] [address] 16 May, 2012 [facility] [address] [id number] [address] [place] [address], [place] [address] 16 May, 2012 [facility] [address] [id number] [address] [place] [address], [place] [address] 14 May, 2012 [facility] [address] [id number] [address] [place] [address], [place] [address] 14 May, 2012 [facility] [address] [id number] [address] [place] [address], [place] [address] 30 Apr, 2012 [facility] [address] [id number] [address] [place] [address], [place] [address] 30 Apr, 2012 [facility] [address] [id number] [address] [place] [address], [place] [address] 17 Apr, 2012 [facility] [address] [id number] [address] [place] [address], [place] [address] 17 Apr, 2012 [facility] [address] [id number] [address] [place] [address], [place] [address] 09 Apr, 2012 [facility] [address] [id number] [address] [place] [address], [place] [address] 18 Mar, 2012 [facility] [address] [id number] [address] [place] [address], [place] [address] 17 Mar, 2012 [facility] [address] [id number] [address] [place] [address], [place] [address] 07 Mar, 2012 [facility] [address] [id number] [address] [place] [address], [place] [address] 27 Feb, 2012 [facility] [address] [id number] [address] [place] [address], [place] [address] 16 Feb, 2012 [facility] [address] [id number] [address] [place] [address], [place] [address] 15 Feb, 2012 [facility] [address] [id number] [address] [place] [address], [place] [address] 14 Feb, 2012 [facility] [address] [id number] [address] [place] [address] [place] [address] Jan, [facility] [address] [id number] [address] [place] [address], [place] [address] Jan, [facility] [address] [id number] [address] [place] [address], [place] [address] Jan, [facility] [address] [id number] [address] [place] [address], [place] [address] Jan, [facility] [address] [id number] [address] [place] [address], [place] [address] Jan, [facility] [address] [id number] [address] [place] [address], [place] [address] Jan, [facility] [address] [id number] [address] [place] [address], [place] [address] Dec, [facility] [address] [id number] [address] [place] [address], [place] [address] Dec, [facility] [address] [id number] [address] [place] [address], [place] [address] Dec, [facility] [address] [id number] [address] [place] [address], [place] [address] November, [facility] [address] [id number] [address] [place] [address], [place] [address] November, [facility] [address] [id number] [address] [place] [address], [place] [address] November, [facility] [address] [id number] [address] [place] [address], [place] [address] November, [facility] [address] [id number] [address] [place] [address], [place] [address] Oct, [facility] [address] [id number] [address] [place] [address], [place] [address] Oct, [facility] [address] [id number] [address] [place] [address], [place] [address] Oct, [facility] [address] [id number] [address] [place] [address], [place] [address] Sep, [facility] [address] [id number] [address] [place] [address], [place] [address] Sep, [facility] [address] [id number] [address] [place] [address], [place] [address] Aug, [facility] [address] [id number] [address] [place] [address], [place] [address] Aug, [facility] [address] [id number] [address] [place] [address], [place] [address] Aug, [facility] [address] [id number] [address] [place] [address], [place] [address] Aug, [facility] [address] [id number] [address] [place] [address], [place] [address] Jul, [facility] [address] [id number] [address] [place] [address], [place] [address] Jul, [facility] [address] [id number] [address] [place] [address], [place] [address] Jul, [facility] [address] [id number] [address] [place] [address], [place] [address] Jul, [facility] [address] [id number] [address] [place] [address], [place] [address] Jul, [facility] [address] [id number] [address] [place] [address], [place] [address] Jul, [facility] [address] [id number] [address] [place] [address], [place] [address] Jul, [facility] [address] [id number] [address] [place] [address], [place] [address] Jul, [facility] [address] [id number] [address] [place] [address], [place] [address] Jun, [facility] [address] [id number] [address] [place] [address] Jun, [facility] [address] [id number] [address] [place] [address], [place] [address] Jun, [facility] [address] [id number] [address] [place] [address] Jun, [facility] [address] [id number] [address] [place] [address], [place] [address] Jun, [facility] [address] [id number] [address] [place] [address] May, [facility] [address] [id number] [address] [place] [address], [place] [address] May, [facility] [address] [id number] [address] [place] [address], [place] [address] May, [facility] [address] [id number] [address] [place] [address] May, [facility] [address] [id number] [address] [place] [address], [place] [address] May, [facility] [address] [id number] [address] [place] [address] May, [facility] [address] [id number] [address] [place] [address], [place] [address] Apr, [facility] [address] [id number] [address] [place] [address] Apr, [facility] [address] [id number] [address] [place] [address] Apr, [facility] [address] [id number] [address] [place] [address] Feb, [facility] [address] [id number] [address] [place] [address] Feb, [facility] [address] [id number] [address] [place] [address] Oct, [facility] [address] [id number] [address] [place] [address] Jul, [facility] [address] [id number] [address] [place] [id number] Jul, [facility] [address] [id number] [address] [place] [address] Jun, [facility] [address] [id number] [address] [place] [address] May, [facility] [address] [id number] [address] [place] [address] May, [facility] [address] [id number] [address] [place] [id number] May, [facility] [address] [id number] [address] [place] [address] Apr, [facility] [address] [id number] [address] [place] [address] Jan, [facility] [address] [id number] [address] [place] [id number] November, IMMUNIZATIONS No Known Immunizations SOCIAL HISTORY Never Assessed REASON FOR VISIT PLAN OF CARE VITAL SIGNS Blood pressure systolic 110 mmHg 2013-03-12 Blood pressure diastolic 70 mmHg 2013-03-12 MEDICATIONS No Known Medications RESULTS No Results [...]
[2020-01-31 09:40] LABS: GFR ESTIMATED 32
--- OUTSIDE RECORDS SUMMARY | 2020-01-31 09:40 | XMS REPORT ---
Author Author Ivet BRISENO Y Organization [facility] Address [address] [place] [address] Care Team Providers Care Pvc Loader Name Role Phone LINDY BRISENO Unavailable PROBLEMS Type Condition ICD9-CM Code DZY43-MJ Code Onset Dates Condition S tatus SNOMED Code Problem GERD (gastroesophageal reflux disease) K21.9 Active 128224322 Problem Osteoarthritis M19.90 Active 34344 5006 Problem Bilateral carotid artery disease I77.9 Active 407390821 Problem Secondary hyperparathyroidism, not elsewhere classified E21.1 Active 87737649 Problem Schizo affective schizophrenia F25.0 Active 955312220 Problem Acquired hypothyroidism E03.9 Active 870787163 Problem Essential hypertension I10 Active 89536549 Problem Stage 3 chronic kidney disease N18.3 Active 269449025 Problem Fibromyalgia M79.7 Active 2770184 05 Problem Vitamin D deficiency E55.9 Active 19615091 Problem Iron deficiency anemia, unspecified iron deficiency an emia type D50.9 Active 13645231 ALLERGIES No Information ENCOUNTERS Encounter Location Date Diagnosis [facility] [address] [id number] [address] [place] [address] 14 Oct, 2019 Lumbar radiculopathy M54.16 ; Fibromyalgia M79.7 ; Essential hypertension I10 and GERD (gastroesophageal reflux disease) K21.9 [facility] [address] [facility] [id number] [address] [place] [address] 03 Oct, 2019 Osteoarthritis M19.90 [facility] [address] [facility] [id number] [address] [place] [address] Sep, [facility] [address] [facility] [id number] [address] [place] [address] Aug, Osteoarthritis M19.90 [facility] [address] [id number] [address] [place] [address] Jul, Osteoarthritis M19.90 [facility] [address] [id number] [address] [place] [address] Jun, Osteoarthritis M19.90 [facility] [address] [facility] [id number] [address] [place] [address] Jun, Herpes zoster without compli cation B02.9 [facility] [address] [facility] [id number] [address] [place] [address] May, Osteoarthritis M19.90 [facility] [address] [id number] [address] [place] [address] May, [facility] [id number] [place] [address] Apr, [facility] [address] [id number] [address] [place] [address] Mar, Osteoarthritis M19.90 [facility] [address] [id number] [address] [place] [address] Mar, [facility] [address] [address] Feb, Lumbago with sciatica, left side M54.42 ; Lumbago with sciatica, right side M54.41 and Other chronic pain G89.29 [facility] [address] [address] Feb, Encounter for Medicare annua l wellness exam Z00.00 ; Schizo affective schizophrenia F25.0 ; Essential hypertension I10 ; GERD (gastroesophageal reflux disease) K21.9 ; Secondary hyperparathyroidism, not elsewhere classified E21.1 ; Idiopathic peripheral neuropathy G60.9 ; Stage 3 chronic kidney disease N18.3 ; Acquired hypothyroidism E03.9 ; Bilateral carotid artery disease I77.9 and Hypothyroidism E03.9 [facility] [address] [id number] [address] [place] [address] Feb, Osteoarthritis M19.90 [facility] [address] [facility] [id number] [address] [place] [address] Jan, Osteoarthritis M19.90 [facility] [address] [facility] [id number] [address] [place] [address] Jan, Osteoarthritis M19.90 [facility] [address] [facility] [id number] [address] [place] [address] Dec, Acquired hypothyroidism E03. 9 [facility] [address] [facility] [id number] [address] [place] [address] Dec, Fibromyalgia M79.7 ; Hypothy roidism E03.9 ; Essential hypertension I10 and Sensory loss R20.[address] [id number] [place] [address] November, Osteoarthritis M19.90 [facility] [address] [facility] [id number] [address] [place] [address] Oct, Osteoarthritis M19.90 [facility] [address] [facility] [id number] [address] [place] [address] Oct, Sore throat J02.9 and Acute nasopharyngitis J00 [facility] [address] [facility] [id number] [address] [place] [address] Sep, Osteoarthritis M19.90 [facility] [address] [facility] [id number] [address] [place] [address] Sep, Acute non-recurrent maxillar y sinusitis J01.00 [facility] [address] [facility] [id number] [address] [place] [address] Aug, Acute non-recurrent pansinus itis J01.40 [facility] [address] [facility] [id number] [address] [place] [address] Jul, Osteoarthritis M19.90 [facility] [address] [facility] [id number] [address] [place] [address] Jul, [facility] [address] [address] 18 Apr, 2018 Osteoarthritis M19.90 [place] [address] [address] 08 Apr, 2018 Fibromyalgia M79.7 ; Essenti al hypertension I10 ; Encounter for immunization Z23 ; Stage 3 chronic kidney disease N18.3 and Depression F32.9 [place] [address] [address] Dec, Fibromyalgia M79.7 ; Osteoar thritis M19.90 and Encounter for medication management Z79.899 [facility] [address] [address] November, Nausea and vomiting, intract ability of vomiting not specified, unspecified vomiting type R11.2 and Dizziness R42 [address] [address] November, Fibromyalgia M79.7 [place] [address] [address] 11 Nov, 2017 Medicare annual wellness vis it, initial Z00.00 ; Anxiety F41.9 ; Depression F32.9 ; Stage 3 chronic kidney disease N18.3 ; Fibromyalgia M79.7 ; Essential hypertension I10 ; Secondary hyperparathyroidism, not elsewhere classified E21.1 ; Osteoarthritis M19.90 ; Hypothyroidism E03.9 and Encounter for immunization Z23 [place] [address] [address] Oct, [place] [address] [address] Oct, Sebaceous cyst L72.3 [place] [address] [address] Sep, Low back pain, unspecified b ack pain laterality, unspecified chronicity, with sciatica presence unspecified M54.5 and Secondary hyperparathyroidism, not elsewhere classified E21.1 [place] [address] [address] 13 Sep, 2017 Fibromyalgia M79.7 [facility] [address] [address] 05 Sep, 2017 Fibromyalgia M79.7 ; Plantar fasciitis, bilateral M72.2 ; Essential hypertension I10 ; Depression F32.9 and Epidermoid cyst L72.0 [facility] [address] [address] Jul, [facility] [address] [address] Jul, Fibromyalgia M79.7 ; Iron de ficiency anemia, unspecified iron deficiency anemia type D50.9 and Acute nasopharyngitis J00 [facility] [address] [address] Jun, Sore throat J02.9 and Acute serous otitis media of left ear, recurrence not specified H65.02 [facility] [address] [address] Jun, Hypothyroidism E03.9 [place] [address] [address] Jun, [place] [address] [address] Jun, Hypothyroidism E03.9 ; Essen tial hypertension I10 and Osteoarthritis M19.90 [facility] [address] [address] May, [place] [address] [address] May, [place] [address] [address] Feb, [place] [address] [address] Feb, Leonela-menopausal N95.1 and To bacco use Z72.0 [facility] [address] [place] [address] Jan, [place] [address] [address] Jan, Osteoarthritis M19.90 ; Bila teral carotid artery disease I77.9 ; Raynauds syndrome I73.00 ; Essential hypertension I10 ; Allergic rhinitis J30.9 ; Stage 3 chronic kidney disease N18.3 ; Fibromyalgia M79.7 ; Hypothyroidism E03.9 ; GERD (gastroesophageal reflux disease) K21.9 and Vitamin D deficiency E55.9 [place] [address] [address] Dec, Raynauds syndrome I73.00 ; P lantar fascial fibromatosis M72.2 ; Osteoarthritis M19.90 and Fibromyalgia M79.7 [place] [address] [address] Dec, [place] [address] [address] Dec, [place] [address] [address] Oct, Function kidney decreased N2 8.9 [facility] [address] [id number] Oct, Dental examination Z01.20 [place] [address] [id number] [place] [address] Oct, Essential hypertension I10 a nd Function kidney decreased N28.9 [facility] [id number] [place] [id number] Oct, Dental examination Z01.20 [facility] [address] [id number] [address] [place] [address] Oct, [place] [address] [address] Sep, Other specified disorders in volving the immune mechanism D89.89 and Schizo affective schizophrenia F25.0 [facility] [address] [place] [address] Sep, Schizo affective schizophren ia F25.0 [facility] [address] [facility] [id number] [address] [place] [address] 16 Sep, 2016 Eustachian tube dysfunction, bilateral H69.83 [place] [id number] [place] [address] 15 Sep, 2016 [facility] [id number] [place] [address] 14 Sep, 2016 [place] [id number] [place] [address] 14 Sep, 2016 [place] [address] [address] 13 Sep, 2016 Eustachian tube dysfunction, bilateral H69.83 [facility] [address] [place] [address] 09 Sep, 2016 Allergic rhinitis J30.9 ; Es sential hypertension I10 ; Hypothyroidism E03.9 and Schizo affective schizophrenia F25.0 [facility] [address] [id number] [address] [place] [address] Jul, Eustachian tube dysfunction, bilateral H69.83 and Visit for TB skin test Z11.1 [facility] [address] [id number] [address] [place] [address] Jul, Subacute pansinusitis J01.40 [facility] [address] [address] Jun, Schizo affective schizophren ia F25.0 ; Depression F32.9 ; Allergic rhinitis J30.9 ; Raynauds syndrome I73.00 ; Essential hypertension I10 ; Slow transit constipation K59.01 ; GERD (gastroesophageal reflux disease) K21.9 ; Hypothyroidism E03.9 ; Nicotine addiction F17.200 ; Other viral agents as the cause of diseases classified elsewhere B97.89 ; Acute upper respiratory infection, unspecified J06.9 and Osteoarthritis M19.90 [place] [address] [address] Jun, Allergic rhinitis J30.9 and GERD (gastroesophageal reflux disease) K21.9 [place] [address] [address] May, [place] [address] [address] Mar, Schizo affective schizophren ia F25.0 [place] [address] [address] Mar, Schizo affective schizophren ia F25.0 [place] [address] [address] Mar, Schizo affective schizophren ia F25.0 [place] [address] [address] Mar, Acute non-recurrent maxillar y sinusitis J01.00 [place] [address] [address] Feb, Schizo affective schizophren ia F25.0 [place] [address] [address] Feb, Contact dermatitis and eczem a L25.9 [place] [address] [id number] [place] [address] Jan, [place] [address] [address] Jan, Schizo affective schizophren ia F25.0 ; Slow transit constipation K59.01 ; Essential hypertension I10 ; GERD (gastroesophageal reflux disease) K21.9 ; Hypothyroidism E03.9 ; Osteoarthritis M19.90 ; Low back pain, unspecified back pain laterality, unspecified chronicity, with sciatica presence unspecified M54.5 and Bilateral carotid artery disease I77.9 [place] [address] [address] Oct, [place] [address] [address] Sep, Hypothyroid E03.9 [place] [address] [address] Sep, Schizo affective schizophren ia F25.0 ; Depression F32.9 ; Anxiety F41.9 ; Allergic rhinitis J30.9 ; Raynauds syndrome I73.00 ; Insomnia G47.00 ; Essential hypertension I10 ; GERD (gastroesophageal reflux disease) K21.9 ; Hypothyroidism E03.9 and Vitamin D deficiency E55.9 [place] [address] [address] Sep, [place] [address] [address] Sep, [place] [address] [address] Aug, Allergic rhinitis J30.9 ; De pression F32.9 ; Anxiety F41.9 ; Raynauds syndrome I73.00 ; Insomnia G47.00 and GERD (gastroesophageal reflux disease) K21.9 [place] [address] [address] Aug, MONICA (secretory otitis media) H65.90 and Raynauds syndrome I73.00 [facility] [address] [id number] [address] [place] [address] Jul, Acute otitis externa of both ears, unspecified type H60.503 [facility] [address] [address] Jun, [place] [address] [address] Jun, Essential hypertension I10 ; Allergic rhinitis J30.9 ; Hypothyroidism E03.9 and Osteoarthritis M19.90 [facility] [address] [id number] [address] [place] [address] Jun, Routine adult health mainten ance Z00.00 ; Hypothyroidism E03.9 ; Essential hypertension I10 ; Insomnia G47.00 ; Nicotine addiction F17.200 ; Raynauds syndrome I73.00 ; GERD (gastroesophageal reflux disease) K21.9 ; Allergic rhinitis J30.9 ; Anxiety F41.9 ; Depression F32.9 and Schizo affective schizophrenia F25.0 [facility] [address] [id number] [address] [place] [address] May, Upper respiratory tract infe ction, unspecified type J06.9 [facility] [address] [id number] [address] [place] [address] Mar, [facility] [address] [id number] [place] [id number] Mar, [facility] [address] [id number] [address] [place] [address] Mar, [facility] [id number] [place] [address] Mar, [facility] [id number] [place] [address] Feb, Jaw pain 784.92 and Environm ental and seasonal allergies 477.8 [facility] [id number] [place] [address] Feb, [facility] [id number] [place] [address] Oct, [facility] [id number] [place] [address] Oct, [facility] [id number] [address] [place] [address] Oct, [facility] [address] [place] [address] 13 Oct, 2014 [facility] [address] [id number] [address] [place] [address], [place] [address] Sep, [facility] [address] [id number] [address] [place] [address], [place] [address] Sep, [facility] [address] [id number] [address] [place] [address], [place] [address] Jul, [facility] [address] [id number] [address] [place] [address], [place] [address] Jul, [facility] [address] [id number] [address] [place] [address], [place] [address] Jul, [facility] [address] [id number] [address] [place] [address], [place] [address] Jul, [facility] [address] [id number] [address] [place] [address], [place] [address] Jul, [facility] [address] [id number] [address] [place] [address], [place] [address] Jul, [facility] [address] [id number] [address] [place] [address], [place] [address] Jul, [facility] [address] [id number] [address] [place] [address], [place] [address] Jun, [facility] [address] [id number] [address] [place] [address], [place] [address] 31 Jun, 2014 [facility] [address] [id number] [address] [place] [address], [place] [address] 22 Jun, 2014 [facility] [address] [id number] [address] [place] [address], [place] [address] 18 Jun, 2014 [facility] [address] [id number] [address] [place] [address], [place] [address] 17 Jun, 2014 [facility] [address] [id number] [address] [place] [address], [place] [address] Jun, [facility] [address] [id number] [address] [place] [address], [place] [address] Jun, [facility] [address] [id number] [address] [place] [address], [place] [address] Jun, [facility] [address] [id number] [address] [place] [address], [place] [address] Apr, [facility] [address] [id number] [address] [place] [address], [place] [address] Apr, [facility] [address] [id number] [address] [place] [address], [place] [address] Mar, [facility] [address] [id number] [address] [place] [address], [place] [address] Mar, [facility] [address] [id number] [address] [place] [address], [place] [address] Mar, [facility] [address] [id number] [address] [place] [address], [place] [address] Mar, [facility] [address] [id number] [address] [place] [address], [place] [address] Jan, [facility] [address] [id number] [address] [place] [address], [place] [address] Jan, [facility] [address] [id number] [address] [place] [address], [place] [address] Oct, [facility] [address] [id number] [address] [place] [address], [place] [address] Oct, [facility] [address] [id number] [address] [place] [address], [place] [address] Sep, [facility] [address] [id number] [address] [place] [address], [place] [address] Sep, [facility] [address] [id number] [address] [place] [address], [place] [address] Sep, [facility] [address] [id number] [address] [place] [address] Sep, [facility] [address] [id number] [address] [place] [address], [place] [address] Sep, [facility] [address] [id number] [address] [place] [address], [place] [address] Sep, [facility] [address] [id number] [address] [place] [address], [place] [address] Aug, [facility] [address] [id number] [address] [place] [address] Aug, [facility] [address] [id number] [address] [place] [address], [place] [address] Jul, [facility] [address] [id number] [address] [place] [address] Jul, [facility] [address] [id number] [address] [place] [address] Jul, [facility] [address] [id number] [address] [place] [address] Jul, [facility] [address] [id number] [address] [place] [address] Jun, [facility] [address] [id number] [address] [place] [address] Jun, [facility] [address] [id number] [address] [place] [address] May, [facility] [address] [id number] [address] [place] [address] May, [facility] [address] [id number] [address] [place] [address] Apr, [facility] [address] [id number] [address] [place] [address] Apr, [facility] [address] [id number] [address] [place] [address], [place] [address] Apr, [facility] [address] [id number] [address] [place] [address], [place] [address] Apr, [facility] [address] [id number] [address] [place] [address], [place] [address] Apr, [facility] [address] [id number] [address] [place] [address], [place] [address] Apr, [facility] [address] [id number] [address] [place] [address], [place] [address] 24 Mar, 2012 [facility] [address] [id number] [address] [place] [address], [place] [address] 12 Mar, 2012 [facility] [address] [id number] [address] [place] [address], [place] [address] 09 Mar, 2013 [facility] [address] [id number] [address] [place] [address], [place] [address] 05 Mar, 2013 [facility] [address] [id number] [address] [place] [address], [place] [address] 05 Mar, 2012 [facility] [address] [id number] [address] [place] [address], [place] [address] 30 Feb, 2013 [facility] [address] [id number] [address] [place] [address], [place] [address] Feb, [facility] [address] [id number] [address] [place] [address], [place] [address] Feb, [facility] [address] [id number] [address] [place] [address], [place] [address] Feb, [facility] [address] [id number] [address] [place] [address], [place] [address] Jan, [facility] [address] [id number] [address] [place] [address], [place] [address] Jan, [facility] [address] [id number] [address] [place] [address], [place] [address] 16 Jan, 2013 [facility] [address] [id number] [address] [place] [address], [place] [address] Jan, [facility] [address] [id number] [address] [address] Jan, [facility] [address] [id number] [address] [place] [address], [place] [address] Jan, [facility] [address] [id number] [address] [place] [address], [place] [address] Dec, [facility] [address] [id number] [address] [place] [address], [place] [address] Dec, [facility] [address] [address] [id number] [address] [place] [address], [place] [address] Dec, [facility] [address] [id number] [address] [place] [address], [place] [address] 14 Dec, 2012 [facility] [address] [id number] [address] [place] [address], [place] [address] Dec, [facility] [address] [id number] [address] [place] [address], [place] [address] Dec, [facility] [address] [id number] [address] [place] [address], [place] [address] Dec, [facility] [address] [id number] [address] [place] [address], [place] [address] Dec, [facility] [address] [id number] [address] [place] [address], [place] [address] Dec, [facility] [address] [id number] [address] [place] [address], [place] [address] Dec, [facility] [address] [id number] [address] [place] [address], [place] [address] November, [facility] [address] [id number] [address] [place] [address], [place] [address] November, [facility] [address] [id number] [address] [place] [address], [place] [address] November, [facility] [address] [id number] [address] [place] [address], [place] [address] November, [facility] [address] [id number] [address] [place] [address], [place] [address] November, [facility] [address] [id number] [address] [place] [address], [place] [address] Oct, [facility] [address] [id number] [address] [place] [address], [place] [address] Oct, [facility] [address] [id number] [address] [place] [address], [place] [address] Oct, [facility] [address] [id number] [address] [place] [address], [place] [address] Oct, [facility] [address] [id number] [address] [place] [address], [place] [address] Oct, [facility] [address] [id number] [address] [place] [address], [place] [address] Sep, [facility] [address] [id number] [address] [place] [address], [place] [address] Sep, [facility] [address] [id number] [address] [place] [address], [place] [address] Sep, [facility] [address] [id number] [address] [place] [address], [place] [address] Sep, [facility] [address] [id number] [address] [place] [address], [place] [address] Aug, [facility] [address] [id number] [address] [place] [address], [place] [address] Aug, [facility] [address] [id number] [address] [place] [address], [place] [address] Aug, [facility] [address] [id number] [address] [place] [address], [place] [address] 15 Aug, 2012 [facility] [address] [id number] [address] [place] [address], [place] [address] Jun, [facility] [address] [id number] [address] [place] [address], [place] [address] 17 Jun, 2012 [facility] [address] [id number] [address] [place] [address], [place] [address] Jun, [facility] [address] [id number] [address] [place] [address], [place] [address] Jun, [facility] [address] [id number] [address] [place] [address], [place] [address] Jun, [facility] [address] [id number] [address] [place] [address], [place] [address] Jun, [facility] [address] [id number] [address] [place] [address], [place] [address] Jun, [facility] [address] [id number] [address] [place] [address], [place] [address] Jun, [facility] [address] [id number] [address] [place] [address], [place] [address] Jun, [facility] [address] [id number] [address] [place] [address], [place] [address] Jun, [facility] [address] [id number] [address] [place] [address], [place] [address] May, [facility] [address] [id number] [address] [place] [address], [place] [address] May, [facility] [address] [id number] [address] [place] [address], [place] [address] 27 May, 2012 [facility] [address] [id number] [address] [place] [address], [place] [address] May, [facility] [address] [id number] [address] [place] [address], [place] [address] 26 May, 2012 [facility] [address] [id number] [address] [place] [address], [place] [address] 16 May, 2012 [facility] [address] [id number] [address] [place] [address] 16 May, 2012 [facility] [address] [id number] [address] [place] [address], [place] [address] 14 May, 2012 [facility] [address] [id number] [address] [place] [address], [place] [address] 14 May, 2012 [facility] [address] [id number] [address] [place] [address], [place] [address] 30 Apr, 2012 [facility] [address] [id number] [address] [place] [address], [place] [address] 30 Apr, 2012 [facility] [address] [id number] [address] [place] [address], [place] [address] Apr, [facility] [address] [id number] [address] [place] [address], [place] [address] 17 Apr, 2012 [facility] [address] [id number] [address] [place] [address], [place] [address] Apr, [facility] [address] [id number] [address] [place] [address], [place] [address] 18 Mar, 2012 [facility] [address] [id number] [address] [place] [address], [place] [address] 17 Mar, 2012 [facility] [address] [id number] [address] [place] [address], [place] [address] 07 Mar, 2012 [facility] [address] [id number] [address] [place] [address], [place] [address] 27 Feb, 2012 [facility] [address] [id number] [address] [place] [address], [place] [address] 16 Feb, 2012 [facility] [address] [id number] [address] [place] [address], [place] [address] 15 Feb, 2012 [facility] [address] [id number] [address] [place] [address], [place] [address] 14 Feb, 2012 [facility] [address] [id number] [address] [place] [address], [place] [address] Jan, [facility] [address] [id number] [address] [place] [address], [place] [address] Jan, [facility] [address] [id number] [address] [place] [address], [place] [address] Jan, [facility] [address] [id number] [address] [place] [address], [place] [address] Jan, [facility] [address] [id number] [address] [place] [address], [place] [address] Jan, [facility] [address] [id number] [address] [place] [address], [place] [address] Jan, [facility] [address] [id number] [address] [place] [address], [place] [address] Dec, [facility] [address] [id number] [address] [place] [address], [place] [address] Dec, [facility] [address] [id number] [address] [place] [address], [place] [address] Dec, [facility] [address] [id number] [address] [place] [address], [place] [address] November, [facility] [address] [id number] [address] [place] [address], [place] [address] November, [facility] [address] [id number] [address] [place] [address], [place] [address] November, [facility] [address] [id number] [address] [place] [address], [place] [address] November, [facility] [address] [id number] [address] [place] [address], [place] [address] Oct, [facility] [address] [id number] [address] [place] [address], [place] [address] Oct, [facility] [address] [id number] [address] [place] [address], [place] [address] Oct, [facility] [address] [id number] [address] [place] [address], [place] [address] Sep, [facility] [address] [id number] [address] [place] [address], [place] [address] Sep, [facility] [address] [id number] [address] [place] [address], [place] [address] Aug, [facility] [address] [id number] [address] [place] [address], [place] [address] Aug, [facility] [address] [id number] [address] [place] [address], [place] [address] Aug, [facility] [address] [id number] [address] [place] [address], [place] [address] Aug, [facility] [address] [id number] [address] [place] [address], [place] [address] Jul, [facility] [address] [id number] [address] [place] [address], [place] [address] Jul, [facility] [address] [id number] [address] [place] [address], [place] [address] Jul, [facility] [address] [id number] [address] [place] [address], [place] [address] Jul, [facility] [address] [id number] [address] [place] [address], [place] [address] Jul, [facility] [address] [id number] [address] [place] [address], [place] [address] Jul, [facility] [address] [id number] [address] [place] [address], [place] [address] Jul, [facility] [address] [id number] [address] [place] [address], [place] [address] Jul, [facility] [address] [id number] [address] [place] [address], [place] [address] Jun, [facility] [address] [id number] [address] [place] [address], [place] [address] Jun, [facility] [address] [id number] [address] [place] [address], [place] [address] 15 Jun, 2011 [facility] [address] [id number] [address] [place] [address], [place] [address] 08 Jun, 2011 [facility] [address] [id number] [address] [place] [address], [place] [address] 07 Jun, 2011 [facility] [address] [id number] [address] [place] [address], [place] [address] May, [facility] [address] [id number] [address] [place] [address], [place] [address] May, [facility] [address] [id number] [address] [place] [address], [place] [address] May, [facility] [address] [id number] [address] [place] [address], [place] [address] May, [facility] [address] [id number] [address] [place] [address], [place] [address] May, [facility] [address] [id number] [address] [place] [address], [place] [address] May, [facility] [address] [id number] [address] [place] [address], [place] [address] Apr, [facility] [address] [id number] [address] [place] [address], [place] [address] Apr, [facility] [address] [id number] [address] [place] [address], [place] [address] Apr, [facility] [address] [id number] [address] [place] [address], [place] [address] Feb, [facility] [address] [id number] [address] [place] [address], [place] [address] Feb, [facility] [address] [id number] [address] [place] [address], [place] [address] Oct, [facility] [address] [id number] [address] [place] [address], [place] [address] Jul, [facility] [address] [id number] [address] [place] [address] Jul, [facility] [address] [id number] [address] [place] [address] Jun, [facility] [address] [id number] [address] [place] [address] May, [facility] [address] [id number] [address] [place] [address] May, [facility] [address] [id number] [address] [place] [address] May, [facility] [address] [id number] [address] [place] [address] Apr, [facility] [address] [facility] [id number] [address] [place] [address] Jan, [facility] [address] [facility] [id number] [address] [place] [address] November, IMMUNIZATIONS No Known Immunizations SOCIAL HISTORY Never Assessed REASON FOR VISIT PLAN OF CARE VITAL SIGNS Height 70 in 2012-12-24 Weight 213.5 lbs 2012-12-24 Temperature 98.9 degrees Fahrenheit 2012-12-24 Heart Rate 84 bpm 2012-12-24 Respiratory Rate 16 2012-12-24 Blood pressure systolic 122 mmHg 2012-12-24 Blood pressure diastolic 62 mmHg 2012-12-24 MEDICATIONS No Known Medications RESULTS No Results PROCEDURES Procedure Date Ordered Result Body Site RHEUMATOID FACTOR, QUANT December 24, 2012 C-REACTIVE PROTEIN December 24, 2012 ANTISTREPTOLYSIN O, TITER December 24, 2012 RBC SED RATE, AUTOMATED December 24, 2012 ASSAY OF BLOOD/URIC ACID December 24, 2012 ASSAY OF VITAMIN D December 24, 2012 VENIPUNCT, ROUTINE* December 24, 2012 INSTRUCTIONS MEDICATIONS ADMINISTERED No Known Medications MEDICAL [...]
--- OUTSIDE RECORDS SUMMARY | 2020-01-31 09:40 | XMS REPORT ---
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 Name Role Phone PAUL Sanches Unavailable PROBLEMS Type Condition ICD9-CM Code KEL34-PX Code Onset Dates Condition S tatus SNOMED Code Problem Osteoarthritis M19.90 Active 57943 5006 Problem Bilateral carotid artery disease I77.9 Active 023238224 Problem Stage 3 chronic kidney disease N18.3 Active 688145603 Problem Essential hypertension I10 Active 85219950 Problem Acquired hypothyroidism E03.9 Active 639807670 Problem GERD (gastroesophageal reflux disease) K21.9 Active 318714051 Problem Seasonal allergic rhinitis due to pollen J30.1 Active 05783397 Problem Schizo affective schizophrenia F25.0 Active 540660183 Problem Fibromyalgia M79.7 Active 1352956 05 Problem Vitamin D deficiency E55.9 Active 68898655 Problem Iron deficiency anemia, unspecified iron deficiency an emia type D50.9 Active 42717609 Problem Secondary hyperparathyroidism, not elsewhere classified E21.1 Active 83998892 ALLERGIES No Information ENCOUNTERS Encounter Location Date Diagnosis [facility] [address] [id number] [address] [place] [id number] November, Seasonal allergic rhinitis d ue to pollen J30.1 [facility] [place] [address] [id number] [address] [place] [id number] 14 Oct, 2019 Lumbar radiculopathy M54.16 ; Fibromyalgia M79.7 ; Essential hypertension I10 and GERD (gastroesophageal reflux disease) K21.9 [facility] [place] [address] [id number] [address] [place] [id number] 03 Oct, 2019 Osteoarthritis M19.90 [facility] [place] [address] [id number] [address] [place] [phone] Sep, [facility] [place] [address] [facility] [id number] [address] [place] [id number] Aug, Osteoarthritis M19.90 [facility] [place] [address] [facility] [id number] [address] [place] [id number] Jul, Osteoarthritis M19.90 [facility] [place] [address] [facility] [id number] [address] [place] [phone] Jun, Osteoarthritis M19.90 [facility] [address] [facility] [id number] [address] [place] [phone] Jun, Herpes zoster without compli cation B02.9 [facility] [place] [address] [facility] [id number] [address] [place] [phone] May, Osteoarthritis M19.90 [facility] [place] [address] [facility] [id number] [address] [place] [phone] May, [facility] [place] [address] [facility] [id number] [address] [place] [phone] Apr, [facility] [place] [address] [facility] [id number] [address] [place] [phone] Mar, Osteoarthritis M19.90 [facility] [place] [address] [facility] [id number] [address] [place] [phone] Mar, [facility] [place] [address] [facility] [id number] [address] [place] [phone] Feb, Lumbago with sciatica, left side M54.42 ; Lumbago with sciatica, right side M54.41 and Other chronic pain G89.29 [facility] [place] [address] [facility] [id number] [address] [place] [id number] Feb, Encounter for [facility] exam Z00.00 ; Schizo affective schizophrenia F25.0 ; Essential hypertension I10 ; GERD (gastroesophageal reflux disease) K21.9 ; Secondary hyperparathyroidism, not elsewhere classified E21.1 ; Idiopathic peripheral neuropathy G60.9 ; Stage 3 chronic kidney disease N18.3 ; Acquired hypothyroidism E03.9 ; Bilateral carotid artery disease I77.9 and Hypothyroidism E03.9 [facility] [place] [address] [facility] [id number] [address] [place] [id number] Feb, Osteoarthritis M19.90 [facility] [place] [address] [facility] [id number] [address] [place] [id number] Jan, Osteoarthritis M19.90 [facility] [place] [address] [facility] [id number] [address] [place] [phone] Jan, Osteoarthritis M19.90 [facility] [place] [address] [facility] [id number] [address] [place] [phone] Dec, Acquired hypothyroidism E03. 9 [facility] [place] [address] [facility] [id number] [address] [place] [phone] Dec, Fibromyalgia M79.7 ; Hypothy roidism E03.9 ; Essential hypertension I10 and Sensory loss R20.[id number] [place] [phone] November, Osteoarthritis M19.90 [facility] [place] [address] [facility] [id number] [address] [place] [id number] Oct, Osteoarthritis M19.90 [facility] [address] [facility] [id number] [address] [place] [phone] Oct, Sore throat J02.9 and Acute nasopharyngitis J00 [facility] [place] [address] [facility] [id number] [address] [place] [phone] Sep, Osteoarthritis M19.90 [facility] [address] [facility] [id number] [address] [place] [phone] Sep, Acute non-recurrent maxillar y sinusitis J01.00 [facility] [address] [facility] [id number] [address] [place] [id number] 18 Aug, 2018 Acute non-recurrent pansinus itis J01.40 [facility] [place] [address] [facility] [id number] [address] [place] [phone] Jul, Osteoarthritis M19.90 [facility] [place] [id number] [place] [address] Jul, [facility] [place] [address] [address] Apr, Osteoarthritis M19.90 [facility] [place] [address] [address] Apr, Fibromyalgia M79.7 ; Essenti al hypertension I10 ; Encounter for immunization Z23 ; Stage 3 chronic kidney disease N18.3 and Depression F32.9 [place] [address] [address] Dec, Fibromyalgia M79.7 ; Osteoar thritis M19.90 and Encounter for medication management Z79.899 [facility] [address] [address] November, Nausea and vomiting, intract ability of vomiting not specified, unspecified vomiting type R11.2 and Dizziness R42 [facility] [place] [address] [address] November, Fibromyalgia M79.7 [place] [address] [address] November, Medicare annual wellness vis it, initial Z00.00 ; Anxiety F41.9 ; Depression F32.9 ; Stage 3 chronic kidney disease N18.3 ; Fibromyalgia M79.7 ; Essential hypertension I10 ; Secondary hyperparathyroidism, not elsewhere classified E21.1 ; Osteoarthritis M19.90 ; Hypothyroidism E03.9 and Encounter for immunization Z23 [facility] [place] [address] [address] Oct, [place] [address] [address] Oct, Sebaceous cyst L72.3 [place] [address] [address] Sep, Low back pain, unspecified b ack pain laterality, unspecified chronicity, with sciatica presence unspecified M54.5 and Secondary hyperparathyroidism, not elsewhere classified E21.1 [facility] [place] [address] [address] Sep, Fibromyalgia M79.7 [facility] [place] [address] [address] Sep, Fibromyalgia M79.7 ; Plantar fasciitis, bilateral M72.2 ; Essential hypertension I10 ; Depression F32.9 and Epidermoid cyst L72.0 [place] [address] [address] Jul, [place] [address] [address] Jul, Fibromyalgia M79.7 ; Iron de ficiency anemia, unspecified iron deficiency anemia type D50.9 and Acute nasopharyngitis J00 [facility] [address] [address] Jun, Sore throat J02.9 and Acute serous otitis media of left ear, recurrence not specified H65.02 [facility] [place] [address] [address] Jun, Hypothyroidism E03.9 [place] [address] [address] Jun, [place] [address] [address] Jun, Hypothyroidism E03.9 ; Essen tial hypertension I10 and Osteoarthritis M19.90 [facility] [place] [address] [address] May, [place] [address] [address] May, [facility] [place] [address] [address] Feb, [place] [address] [address] Feb, Leonela-menopausal N95.1 and To bacco use Z72.0 [place] [address] [address] Jan, [place] [address] [address] Jan, Osteoarthritis M19.90 ; Bila teral carotid artery disease I77.9 ; Raynauds syndrome I73.00 ; Essential hypertension I10 ; Allergic rhinitis J30.9 ; Stage 3 chronic kidney disease N18.3 ; Fibromyalgia M79.7 ; Hypothyroidism E03.9 ; GERD (gastroesophageal reflux disease) K21.9 and Vitamin D deficiency E55.9 [place] [address] [address] Dec, Raynauds syndrome I73.00 ; P lantar fascial fibromatosis M72.2 ; Osteoarthritis M19.90 and Fibromyalgia M79.7 [place] [address] [address] Dec, [place] [address] [address] Dec, [place] [address] [address] Oct, Function kidney decreased N2 8.9 [facility] [address] [facility] [id number] [address] [place] [id number] Oct, Dental examination Z01.20 [place] [address] [address] Oct, Essential hypertension I10 a nd Function kidney decreased N28.9 [facility] [address] [facility] [id number] [address] [place] [id number] Oct, Dental examination Z01.20 [place] [address] [facility] [id number] [address] [place] [phone] Oct, [facility] [place] [address] [facility] [id number] [address] [place] [phone] 24 Sep, 2016 Other specified disorders in volving the immune mechanism D89.89 and Schizo affective schizophrenia F25.0 [facility] [place] [address] [facility] [id number] [address] [place] [phone] 21 Sep, 2016 Schizo affective schizophren ia F25.0 [facility] [place] [address] [facility] [id number] [address] [place] [id number] 16 Sep, 2016 Eustachian tube dysfunction, bilateral H69.83 [place] [address] [id number] [address] [place] [phone] 15 Sep, 2016 [place] [id number] [place] [address] 14 Sep, 2016 [address] [address] [id number] [address] [place] [phone] 14 Sep, 2016 [place] [address] [id number] [address] [place] [phone] 13 Sep, 2016 Eustachian tube dysfunction, bilateral H69.83 [facility] [place] [address] [id number] [address] [place] [phone] 09 Sep, 2016 Allergic rhinitis J30.9 ; Es sential hypertension I10 ; Hypothyroidism E03.9 and Schizo affective schizophrenia F25.0 [facility] [place] [address] [id number] [address] [place] [phone] Jul, Eustachian tube dysfunction, bilateral H69.83 and Visit for TB skin test Z11.1 [facility] [address] [facility] [id number] [address] [place] [phone] Jul, Subacute pansinusitis J01.40 [facility] [place] [address] [id number] [address] [place] [address] Jun, Schizo affective schizophren ia F25.0 ; Depression F32.9 ; Allergic rhinitis J30.9 ; Raynauds syndrome I73.00 ; Essential hypertension I10 ; Slow transit constipation K59.01 ; GERD (gastroesophageal reflux disease) K21.9 ; Hypothyroidism E03.9 ; Nicotine addiction F17.200 ; Other viral agents as the cause of diseases classified elsewhere B97.89 ; Acute upper respiratory infection, unspecified J06.9 and Osteoarthritis M19.90 [place] [address] [address] Jun, Allergic rhinitis J30.9 and GERD (gastroesophageal reflux disease) K21.9 [place] [address] [address] May, [address] [address] [address] Mar, Schizo affective schizophren ia F25.0 [place] [address] [address] Mar, Schizo affective schizophren ia F25.0 [place] [address] [address] Mar, Schizo affective schizophren ia F25.0 [place] [address] [address] Mar, Acute non-recurrent maxillar y sinusitis J01.00 [place] [address] [address] Feb, Schizo affective schizophren ia F25.0 [place] [address] [id number] [address] [place] [address] Feb, Contact dermatitis and eczem a L25.9 [place] [id number] [place] [address] Jan, [place] [address] [id number] [address] [place] [phone] Jan, Schizo affective schizophren ia F25.0 ; Slow transit constipation K59.01 ; Essential hypertension I10 ; GERD (gastroesophageal reflux disease) K21.9 ; Hypothyroidism E03.9 ; Osteoarthritis M19.90 ; Low back pain, unspecified back pain laterality, unspecified chronicity, with sciatica presence unspecified M54.5 and Bilateral carotid artery disease I77.9 [place] [address] [address] Oct, [place] [address] [address] Sep, Hypothyroid E03.9 [place] [address] [address] Sep, Schizo affective schizophren ia F25.0 ; Depression F32.9 ; Anxiety F41.9 ; Allergic rhinitis J30.9 ; Raynauds syndrome I73.00 ; Insomnia G47.00 ; Essential hypertension I10 ; GERD (gastroesophageal reflux disease) K21.9 ; Hypothyroidism E03.9 and Vitamin D deficiency E55.9 [place] [address] [address] Sep, [place] [address] [address] Sep, [place] [address] [address] Aug, Allergic rhinitis J30.9 ; De pression F32.9 ; Anxiety F41.9 ; Raynauds syndrome I73.00 ; Insomnia G47.00 and GERD (gastroesophageal reflux disease) K21.9 [place] [address] [address] Aug, MONICA (secretory otitis media) H65.90 and Raynauds syndrome I73.00 [facility] [address] [id number] [address] [place] [address] Jul, Acute otitis externa of both ears, unspecified type H60.503 [place] [address] [id number] [address] [place] [address] Jun, [facility] [place] [address] [address] Jun, Essential hypertension I10 ; Allergic rhinitis J30.9 ; Hypothyroidism E03.9 and Osteoarthritis M19.90 [place] [address] [address] Jun, Routine adult health mainten ance Z00.00 ; Hypothyroidism E03.9 ; Essential hypertension I10 ; Insomnia G47.00 ; Nicotine addiction F17.200 ; Raynauds syndrome I73.00 ; GERD (gastroesophageal reflux disease) K21.9 ; Allergic rhinitis J30.9 ; Anxiety F41.9 ; Depression F32.9 and Schizo affective schizophrenia F25.0 [place] [address] [address] May, Upper respiratory tract infe ction, unspecified type J06.9 [place] [address] [id number] [address] [place] [address] Mar, [facility] [id number] [place] [id number] Mar, [place] [address] [address] Mar, [place] [address] [address] Mar, [place] [address] [address] Feb, Jaw pain 784.92 and Environm ental and seasonal allergies 477.8 [facility] [place] [address] [address] Feb, [place] [address] [id number] [address] [place] [phone] Oct, [facility] [place] [address] [address] Oct, [facility] [address] [id number] [address] [place] [address], [place] [address] 14 Oct, 2014 [facility] [address] [id number] [address] [place] [address], [place] [address] Oct, [facility] [address] [id number] [address] [place] [address], [place] [address] Sep, [facility] [address] [id number] [address] [place] [address], [place] [address] Sep, [facility] [address] [id number] [address] [place] [address], [place] [address] Jul, [facility] [address] [id number] [address] [place] [address], [place] [address] Jul, [facility] [address] [id number] [address] [place] [address], [place] [address] Jul, [facility] [address] [id number] [address] [place] [address], [place] [address] Jul, [facility] [address] [id number] [address] [place] [address], [place] [address] Jul, [facility] [address] [id number] [address] [place] [address], [place] [address] Jul, [facility] [address] [id number] [address] [place] [address], [place] [address] Jul, [facility] [address] [id number] [address] [place] [address], [place] [address] Jun, [facility] [address] [id number] [address] [place] [address], [place] [address] Jun, [facility] [address] [id number] [address] [place] [address], [place] [address] Jun, [facility] [address] [id number] [address] [place] [address], [place] [address] Jun, [facility] [address] [id number] [address] [place] [address], [place] [address] 17 Jun, 2014 [facility] [address] [id number] [address] [place] [address], [place] [address] Jun, [facility] [address] [id number] [address] [place] [address], [place] [address] Jun, [facility] [address] [id number] [address] [place] [address], [place] [address] Jun, [facility] [address] [id number] [address] [place] [address], [place] [address] Apr, [facility] [address] [id number] [address] [place] [address], [place] [address] Apr, [facility] [address] [id number] [address] [place] [address], [place] [address] Mar, [facility] [address] [id number] [address] [place] [address], [place] [address] Mar, [facility] [address] [id number] [address] [place] [address], [place] [address] Mar, [facility] [address] [id number] [address] [place] [address], [place] [address] Mar, [facility] [address] [id number] [address] [place] [address], [place] [address] Jan, [facility] [address] [id number] [address] [place] [address], [place] [address] Jan, [facility] [address] [id number] [address] [place] [address], [place] [address] Oct, [facility] [address] [id number] [address] [place] [address], [place] [address] Oct, [facility] [address] [id number] [address] [place] [address], [place] [address] Sep, [facility] [address] [id number] [address] [place] [address], [place] [address] Sep, [facility] [address] [id number] [address] [place] [address], [place] [address] Sep, [facility] [address] [id number] [address] [place] [address], [place] [address] Sep, [facility] [address] [id number] [address] [place] [address], [place] [address] Sep, [facility] [address] [id number] [address] [place] [address], [place] [address] Sep, [facility] [address] [id number] [address] [place] [address], [place] [address] Aug, [facility] [address] [id number] [address] [place] [address], [place] [address] Aug, [facility] [address] [id number] [address] [place] [address], [place] [address] Jul, [facility] [address] [id number] [address] [place] [address], [place] [address] Jul, [facility] [address] [id number] [address] [place] [address], [place] [address] Jul, [facility] [address] [id number] [address] [place] [address], [place] [address] Jul, [facility] [address] [id number] [address] [place] [address], [place] [id number] Jun, [facility] [address] [id number] [address] [place] [id number] Jun, [facility] [address] [id number] [address] [place] [address], [place] [id number] May, [facility] [address] [id number] [address] [place] [address], [place] [address] May, [facility] [address] [id number] [address] [place] [address], [place] [address] Apr, [facility] [address] [id number] [address] [place] [address] [place] [address] Apr, [facility] [address] [id number] [address] [place] [address], [place] [id number] Apr, [facility] [address] [id number] [address] [place] [address], [place] [id number] Apr, [facility] [address] [id number] [address] [place] [address], [place] [address] Apr, [facility] [address] [id number] [address] [place] [address], [place] [address] Apr, [facility] [address] [id number] [address] [place] [address], [place] [id number] 24 Mar, 2013 [facility] [address] [id number] [address] [place] [address], [place] [id number] Mar, [facility] [address] [id number] [address] [place] [address], [place] [id number] 09 Mar, 2013 [facility] [address] [id number] [address] [place] [address], [place] [id number] 05 Mar, 2012 [facility] [address] [id number] [address] [place] [address], [place] [id number] 05 Mar, 2012 [facility] [address] [id number] [address] [place] [address], [place] [id number] 30 Feb, 2013 [facility] [address] [id number] [address] [place] [address], [place] [address] Feb, [facility] [address] [id number] [address] [place] [address], [place] [id number] Feb, [facility] [address] [id number] [address] [place] [address], [place] [address] Feb, [facility] [address] [id number] [address] [place] [address], [place] [id number] Jan, [facility] [address] [id number] [address] [place] [address], [place] [id number] Jan, [facility] [address] [id number] [facility] [place] [address] 16 Jan, 2013 [facility] [address] [id number] [address] [place] [address], [place] [address] Jan, [facility] [address] [id number] [address] [place] [address], [place] [address] Jan, [facility] [address] [id number] [address] [place] [address], [place] [address] Jan, [facility] [address] [id number] [address] [place] [address], [place] [address] Dec, [facility] [address] [id number] [address] [place] [address], [place] [address] 25 Dec, 2012 [facility] [address] [id number] [address] [place] [address], [place] [address] Dec, [facility] [address] [id number] [address] [place] [address], [place] [address] 14 Dec, 2012 [facility] [address] [id number] [address] [place] [address], [place] [address] Dec, [facility] [address] [id number] [address] [place] [address], [place] [address] Dec, [facility] [address] [id number] [address] [place] [address], [place] [address] Dec, [facility] [address] [id number] [address] [place] [address], [place] [address] Dec, [facility] [address] [id number] [address] [place] [address], [place] [address] 05 Dec, 2012 [facility] [address] [id number] [address] [place] [address], [place] [address] Dec, [facility] [address] [id number] [address] [place] [address], [place] [address] November, [facility] [address] [id number] [address] [place] [address], [place] [address] November, [facility] [address] [id number] [address] [place] [address], [place] [address] November, [facility] [address] [id number] [address] [place] [address], [place] [address] November, [facility] [address] [id number] [address] [place] [address], [place] [address] November, [facility] [address] [id number] [address] [place] [address], [place] [address] Oct, [facility] [address] [id number] [address] [place] [address], [place] [address] Oct, [facility] [address] [id number] [address] [place] [address], [place] [address] Oct, [facility] [address] [id number] [address] [place] [address], [place] [address] Oct, [facility] [address] [id number] [address] [place] [address], [place] [address] Oct, [facility] [address] [id number] [address] [place] [address], [place] [address] Sep, [facility] [address] [id number] [address] [place] [address], [place] [address] Sep, [facility] [address] [id number] [address] [place] [address], [place] [address] Sep, [facility] [address] [id number] [address] [place] [address], [place] [address] Sep, [facility] [address] [id number] [address] [place] [address], [place] [address] Aug, [facility] [address] [id number] [address] [place] [address], [place] [address] Aug, [facility] [address] [id number] [address] [place] [address], [place] [address] Aug, [facility] [address] [id number] [address] [place] [address], [place] [address] 15 Aug, 2012 [facility] [address] [id number] [address] [place] [address], [place] [address] Jun, [facility] [address] [id number] [address] [place] [address], [place] [address] Jun, [facility] [address] [id number] [address] [place] [address], [place] [address] Jun, [facility] [address] [id number] [address] [place] [address], [place] [address] Jun, [facility] [address] [id number] [address] [place] [address], [place] [address] Jun, [facility] [address] [id number] [address] [place] [address], [place] [address] Jun, [facility] [address] [id number] [address] [place] [address], [place] [address] Jun, [facility] [address] [id number] [address] [place] [address], [place] [address] Jun, [facility] [address] [id number] [address] [place] [address], [place] [address] Jun, [facility] [address] [id number] [address] [place] [address], [place] [address] Jun, [facility] [address] [id number] [address] [place] [address], [place] [address] May, [facility] [address] [id number] [address] [place] [address], [place] [address] May, [facility] [address] [id number] [address] [place] [address], [place] [address] May, [facility] [address] [id number] [address] [place] [address], [place] [address] May, [facility] [address] [id number] [address] [place] [address], [place] [address] May, [facility] [address] [id number] [address] [place] [address], [place] [address] 16 May, 2012 [facility] [address] [id number] [address] [place] [address], [place] [address] 16 May, 2012 [facility] [address] [id number] [address] [place] [address], [place] [address] 14 May, 2012 [facility] [address] [id number] [address] [place] [address], [place] [address] 14 May, 2012 [facility] [address] [id number] [address] [place] [address], [place] [address] 30 Apr, 2012 [facility] [address] [id number] [address] [place] [address], [place] [address] 30 Apr, 2012 [facility] [address] [id number] [address] [place] [address], [place] [address] 17 Apr, 2012 [facility] [address] [id number] [address] [place] [address], [place] [address] 17 Apr, 2012 [facility] [address] [id number] [address] [place] [address], [place] [address] 09 Apr, 2012 [facility] [address] [id number] [address] [place] [address], [place] [address] 18 Mar, 2012 [facility] [address] [id number] [address] [place] [address], [place] [address] 17 Mar, 2012 [facility] [address] [id number] [address] [place] [address], [place] [address] 07 Mar, 2012 [facility] [address] [id number] [address] [place] [address], [place] [address] 27 Feb, 2012 [facility] [address] [id number] [address] [place] [address], [place] [address] 16 Feb, 2012 [facility] [address] [id number] [address] [place] [address], [place] [address] 15 Feb, 2012 [facility] [address] [id number] [address] [place] [address] [place] [address] Feb, [facility] [address] [id number] [address] [place] [address], [place] [address] Jan, [facility] [address] [id number] [address] [place] [address], [place] [address] Jan, [facility] [address] [id number] [address] [place] [address], [place] [address] Jan, [facility] [address] [id number] [address] [place] [address], [place] [address] Jan, [facility] [address] [id number] [address] [place] [address], [place] [address] Jan, [facility] [address] [id number] [address] [place] [address], [place] [address] Jan, [facility] [address] [id number] [address] [place] [address], [place] [address] Dec, [facility] [address] [id number] [address] [place] [address], [place] [address] Dec, [facility] [address] [id number] [address] [place] [address], [place] [address] Dec, [facility] [address] [id number] [address] [place] [address], [place] [address] November, [facility] [address] [id number] [address] [place] [address], [place] [address] November, [facility] [address] [id number] [address] [place] [address], [place] [address] November, [facility] [address] [id number] [address] [place] [address], [place] [address] November, [facility] [address] [id number] [address] [place] [address], [place] [address] Oct, [facility] [address] [id number] [address] [place] [address], [place] [address] Oct, [facility] [address] [id number] [address] [place] [address], [place] [address] Oct, [facility] [address] [id number] [address] [place] [address], [place] [address] Sep, [facility] [address] [id number] [address] [place] [address], [place] [address] Sep, [facility] [address] [id number] [address] [place] [address], [place] [address] Aug, [facility] [address] [id number] [address] [place] [address], [place] [address] Aug, [facility] [address] [id number] [address] [place] [address], [place] [address] Aug, [facility] [address] [id number] [address] [place] [address], [place] [address] Aug, [facility] [address] [id number] [address] [place] [address], [place] [address] Jul, [facility] [address] [id number] [address] [place] [address], [place] [address] Jul, [facility] [address] [id number] [address] [place] [address], [place] [address] Jul, [facility] [address] [id number] [address] [place] [address], [place] [address] Jul, [facility] [address] [id number] [address] [place] [address], [place] [address] Jul, [facility] [address] [id number] [address] [place] [address], [place] [address] Jul, [facility] [address] [id number] [address] [place] [address], [place] [address] Jul, [facility] [address] [id number] [address] [place] [address], [place] [address] Jul, [facility] [address] [id number] [address] [place] [id number] 30 Jun, 2011 [facility] [address] [id number] [address] [place] [address], [place] [address] Jun, [facility] [address] [id number] [address] [place] [address] Jun, [facility] [address] [id number] [address] [place] [address], [place] [address] 08 Jun, 2011 [facility] [address] [id number] [address] [place] [id number] Jun, [facility] [address] [id number] [address] [place] [address], [place] [address] May, [facility] [address] [id number] [address] [place] [address], [place] [address] May, [facility] [address] [id number] [address] [place] [address] May, [facility] [address] [id number] [address] [place] [address], [place] [address] May, [facility] [address] [id number] [address] [place] [id number] May, [facility] [address] [id number] [address] [place] [id number] May, [facility] [address] [id number] [address] [place] [id number] Apr, [facility] [address] [id number] [address] [place] [id number] Apr, [facility] [address] [id number] [address] [place] [id number] Apr, [facility] [address] [id number] [address] [place] [id number] Feb, [facility] [address] [id number] [address] [place] [id number] Feb, [facility] [address] [id number] [address] [place] [id number] Oct, [facility] [place] [address] [id number] [address] [place] [id number] Jul, [facility] [place] [address] [id number] [address] [place] [id number] Jul, [facility] [place] [address] [id number] [address] [place] [id number] Jun, [facility] [place] [address] [id number] [address] [place] [id number] May, [facility] [place] [address] [id number] [address] [place] [id number] May, [facility] [place] [address] [id number] [address] [place] [id number] May, [facility] [place] [address] [id number] [address] [place] [id number] Apr, [facility] [place] [address] [id number] [address] [place] [id number] Jan, [facility] [place] [address] [id number] [address] [place] [id number] November, IMMUNIZATIONS No Known Immunizations SOCIAL HISTORY Never Assessed REASON FOR VISIT PLAN OF CARE VITAL SIGNS Height 60 in 2013-01-05 Weight 210 lbs 2013-01-05 Temperature 99.4 degrees Fahrenheit 2013-01-05 Heart Rate 80 bpm 2013-01-05 Blood pressure systolic 128 mmHg 2013-01-05 Blood pressure diastolic 90 mmHg 2013-01-05 MEDICATIONS No Known Medications RESULTS No Results [...]
--- OUTSIDE RECORDS SUMMARY | 2020-01-31 09:40 | XMS REPORT ---
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 Name Role Phone PAUL Sanches Unavailable PROBLEMS Type Condition ICD9-CM Code GSZ79-BD Code Onset Dates Condition S tatus SNOMED Code Problem Osteoarthritis M19.90 Active 18977 5006 Problem Bilateral carotid artery disease I77.9 Active 726275787 Problem Stage 3 chronic kidney disease N18.3 Active 165173780 Problem Essential hypertension I10 Active 44548317 Problem Acquired hypothyroidism E03.9 Active 351702739 Problem GERD (gastroesophageal reflux disease) K21.9 Active 722214094 Problem Seasonal allergic rhinitis due to pollen J30.1 Active 22526048 Problem Schizo affective schizophrenia F25.0 Active 547839631 Problem Fibromyalgia M79.7 Active 6278732 05 Problem Vitamin D deficiency E55.9 Active 44995522 Problem Iron deficiency anemia, unspecified iron deficiency an emia type D50.9 Active 26934367 Problem Secondary hyperparathyroidism, not elsewhere classified E21.1 Active [id number] ALLERGIES No Information ENCOUNTERS Encounter Location Date Diagnosis [facility] [address] [id number] [address] [place] [address] November, Seasonal allergic rhinitis d ue to pollen J30.1 [facility] [address] [id number] [address] [place] [address] 14 Oct, 2019 Lumbar radiculopathy M54.16 ; Fibromyalgia M79.7 ; Essential hypertension I10 and GERD (gastroesophageal reflux disease) K21.9 [facility] [address] [id number] [address] [place] [address] 03 Oct, 2019 Osteoarthritis M19.90 [facility] [address] [id number] [address] [place] [address] Sep, [facility] [address] [facility] [id number] [address] [place] [address] Aug, Osteoarthritis M19.90 [facility] [address] [facility] [id number] [address] [place] [address] Jul, Osteoarthritis M19.90 [facility] [address] [facility] [id number] [address] [place] [address] Jun, Osteoarthritis M19.90 [facility] [address] [facility] [id number] [address] [place] [address] Jun, Herpes zoster without compli cation B02.9 [facility] [address] [facility] [id number] [address] [place] [address] May, Osteoarthritis M19.90 [facility] [address] [facility] [id number] [address] [place] [address] May, [facility] [address] [facility] [id number] [address] [place] [address] Apr, [facility] [address] [facility] [id number] [address] [place] [address] Mar, Osteoarthritis M19.90 [facility] [address] [facility] [id number] [address] [place] [address] Mar, [facility] [address] [facility] [id number] [address] [place] [address] Feb, Lumbago with sciatica, left side M54.42 ; Lumbago with sciatica, right side M54.41 and Other chronic pain G89.29 [facility] [address] [facility] [id number] [address] [place] [address] Feb, [facility] Z[facility].00 ; Schizo affective schizophrenia F25.0 ; Essential hypertension I10 ; GERD (gastroesophageal reflux disease) K21.9 ; Secondary hyperparathyroidism, not elsewhere classified E21.1 ; Idiopathic peripheral neuropathy G60.9 ; Stage 3 chronic kidney disease N18.3 ; Acquired hypothyroidism E03.9 ; Bilateral carotid artery disease I77.9 and Hypothyroidism E03.9 [facility] [address] [facility] [id number] [address] [place] [address] Feb, Osteoarthritis M19.90 [facility] [address] [facility] [id number] [address] [place] [address] Jan, Osteoarthritis M19.90 [facility] [address] [facility] [id number] [address] [place] [address] Jan, Osteoarthritis M19.90 [facility] [address] [facility] [id number] [address] [place] [address] Dec, Acquired hypothyroidism E03. 9 [facility] [address] [facility] [id number] [address] [place] [address] Dec, Fibromyalgia M79.7 ; Hypothy roidism E03.9 ; Essential hypertension I10 and Sensory loss R20.[id number] [place] [address] November, Osteoarthritis M19.90 [facility] [address] [facility] [id number] [address] [place] [address] Oct, Osteoarthritis M19.90 [facility] [address] [facility] [id number] [address] [place] [address] Oct, Sore throat J02.9 and Acute nasopharyngitis J00 [facility] [address] [facility] [id number] [address] [place] [address] Sep, Osteoarthritis M19.90 [facility] [address] [facility] [id number] [address] [place] [address] Sep, Acute non-recurrent maxillar y sinusitis J01.00 [facility] [address] [facility] [id number] [address] [place] [address] 18 Aug, 2018 Acute non-recurrent pansinus itis J01.40 [facility] [address] [facility] [id number] [address] [place] [address] Jul, Osteoarthritis M19.90 [facility] [id number] [place] [address] Jul, [facility] [address] [address] Apr, Osteoarthritis M19.90 [facility] [address] [address] Apr, Fibromyalgia M79.7 ; Essenti al hypertension I10 ; Encounter for immunization Z23 ; Stage 3 chronic kidney disease N18.3 and Depression F32.9 [place] [address] [address] Dec, Fibromyalgia M79.7 ; Osteoar thritis M19.90 and Encounter for medication management Z79.899 [facility] [address] [address] November, Nausea and vomiting, intract ability of vomiting not specified, unspecified vomiting type R11.2 and Dizziness R42 [facility] [address] [address] November, Fibromyalgia M79.7 [place] [address] [address] November, Medicare annual wellness vis it, initial Z00.00 ; Anxiety F41.9 ; Depression F32.9 ; Stage 3 chronic kidney disease N18.3 ; Fibromyalgia M79.7 ; Essential hypertension I10 ; Secondary hyperparathyroidism, not elsewhere classified E21.1 ; Osteoarthritis M19.90 ; Hypothyroidism E03.9 and Encounter for immunization Z23 [facility] [address] [address] Oct, [address] [address] [address] Oct, Sebaceous cyst L72.3 [place] [address] [address] Sep, Low back pain, unspecified b ack pain laterality, unspecified chronicity, with sciatica presence unspecified M54.5 and Secondary hyperparathyroidism, not elsewhere classified E21.1 [facility] [address] [address] Sep, Fibromyalgia M79.7 [facility] [address] [address] Sep, Fibromyalgia M79.7 ; Plantar fasciitis, bilateral M72.2 ; Essential hypertension I10 ; Depression F32.9 and Epidermoid cyst L72.0 [place] [address] [address] Jul, [place] [address] [address] Jul, Fibromyalgia M79.7 ; Iron de ficiency anemia, unspecified iron deficiency anemia type D50.9 and Acute nasopharyngitis J00 [facility] [address] [address] Jun, Sore throat J02.9 and Acute serous otitis media of left ear, recurrence not specified H65.02 [facility] [address] [address] Jun, Hypothyroidism E03.9 [place] [address] [address] Jun, [place] [address] [address] Jun, Hypothyroidism E03.9 ; Essen tial hypertension I10 and Osteoarthritis M19.90 [facility] [address] [address] May, [address] [address] [address] May, [facility] [address] [address] Feb, [place] [address] [address] Feb, Leonela-menopausal N95.1 and To bacco use Z72.0 [place] [address] [address] Jan, [place] [address] [address] Jan, Osteoarthritis M19.90 ; Bila teral carotid artery disease I77.9 ; Raynauds syndrome I73.00 ; Essential hypertension I10 ; Allergic rhinitis J30.9 ; Stage 3 chronic kidney disease N18.3 ; Fibromyalgia M79.7 ; Hypothyroidism E03.9 ; GERD (gastroesophageal reflux disease) K21.9 and Vitamin D deficiency E55.9 [place] [address] [address] Dec, Raynauds syndrome I73.00 ; P lantar fascial fibromatosis M72.2 ; Osteoarthritis M19.90 and Fibromyalgia M79.7 [place] [address] [address] Dec, [place] [address] [address] Dec, [place] [address] [address] Oct, Function kidney decreased N2 8.9 [facility] [address] [facility] [id number] [address] [place] [id number] Oct, Dental examination Z01.20 [place] [address] [address] Oct, Essential hypertension I10 a nd Function kidney decreased N28.9 [facility] [address] [facility] [id number] [address] [place] [id number] Oct, Dental examination Z01.20 [place] [address] [facility] [id number] [address] [place] [address] Oct, [facility] [address] [facility] [id number] [address] [place] [address] 24 Sep, 2016 Other specified disorders in volving the immune mechanism D89.89 and Schizo affective schizophrenia F25.0 [facility] [address] [facility] [id number] [address] [place] [address] 21 Sep, 2016 Schizo affective schizophren ia F25.0 [facility] [address] [facility] [id number] [address] [place] [address] 16 Sep, 2016 Eustachian tube dysfunction, bilateral H69.83 [place] [id number] [place] [address] 15 Sep, 2016 [place] [id number] [place] [address] 14 Sep, 2016 [place] [address] [place] [id number] [place] [address] 14 Sep, 2016 [place] [id number] [address] [place] [address] 13 Sep, 2016 Eustachian tube dysfunction, bilateral H69.83 [facility] [id number] [address] [place] [address] 09 Sep, 2016 Allergic rhinitis J30.9 ; Es sential hypertension I10 ; Hypothyroidism E03.9 and Schizo affective schizophrenia F25.0 [facility] [id number] [address] [place] [address] Jul, Eustachian tube dysfunction, bilateral H69.83 and Visit for TB skin test Z11.1 [facility] [address] [facility] [id number] [address] [place] [address] Jul, Subacute pansinusitis J01.40 [facility] [address] [id number] [address] [place] [address] Jun, Schizo affective schizophren ia F25.0 ; Depression F32.9 ; Allergic rhinitis J30.9 ; Raynauds syndrome I73.00 ; Essential hypertension I10 ; Slow transit constipation K59.01 ; GERD (gastroesophageal reflux disease) K21.9 ; Hypothyroidism E03.9 ; Nicotine addiction F17.200 ; Other viral agents as the cause of diseases classified elsewhere B97.89 ; Acute upper respiratory infection, unspecified J06.9 and Osteoarthritis M19.90 [place] [address] [address] Jun, Allergic rhinitis J30.9 and GERD (gastroesophageal reflux disease) K21.9 [place] [address] [address] May, [place] [address] [address] Mar, Schizo affective schizophren ia F25.0 [place] [address] [address] Mar, Schizo affective schizophren ia F25.0 [place] [address] [address] Mar, Schizo affective schizophren ia F25.0 [place] [address] [address] Mar, Acute non-recurrent maxillar y sinusitis J01.00 [place] [address] [address] Feb, Schizo affective schizophren ia F25.0 [place] [address] [id number] [place] [address] Feb, Contact dermatitis and eczem a L25.9 [place] [id number] [place] [address] Jan, [place] [address] [id number] [address] [place] [address] Jan, Schizo affective schizophren ia F25.0 ; Slow transit constipation K59.01 ; Essential hypertension I10 ; GERD (gastroesophageal reflux disease) K21.9 ; Hypothyroidism E03.9 ; Osteoarthritis M19.90 ; Low back pain, unspecified back pain laterality, unspecified chronicity, with sciatica presence unspecified M54.5 and Bilateral carotid artery disease I77.9 [address] [address] [address] Oct, [place] [address] [address] Sep, Hypothyroid E03.9 [place] [address] [address] Sep, Schizo affective schizophren ia F25.0 ; Depression F32.9 ; Anxiety F41.9 ; Allergic rhinitis J30.9 ; Raynauds syndrome I73.00 ; Insomnia G47.00 ; Essential hypertension I10 ; GERD (gastroesophageal reflux disease) K21.9 ; Hypothyroidism E03.9 and Vitamin D deficiency E55.9 [place] [address] [address] Sep, [place] [address] [address] Sep, [place] [address] [address] Aug, Allergic rhinitis J30.9 ; De pression F32.9 ; Anxiety F41.9 ; Raynauds syndrome I73.00 ; Insomnia G47.00 and GERD (gastroesophageal reflux disease) K21.9 [place] [address] [address] Aug, MONICA (secretory otitis media) H65.90 and Raynauds syndrome I73.00 [facility] [address] [id number] [address] [place] [address] Jul, Acute otitis externa of both ears, unspecified type H60.503 [place] [address] [place] [id number] [place] [address] Jun, [facility] [address] [address] Jun, Essential hypertension I10 ; Allergic rhinitis J30.9 ; Hypothyroidism E03.9 and Osteoarthritis M19.90 [place] [address] [address] Jun, Routine adult health mainten ance Z00.00 ; Hypothyroidism E03.9 ; Essential hypertension I10 ; Insomnia G47.00 ; Nicotine addiction F17.200 ; Raynauds syndrome I73.00 ; GERD (gastroesophageal reflux disease) K21.9 ; Allergic rhinitis J30.9 ; Anxiety F41.9 ; Depression F32.9 and Schizo affective schizophrenia F25.0 [place] [address] [address] May, Upper respiratory tract infe ction, unspecified type J06.9 [place] [address] [address] [id number] [place] [address] Mar, [facility] [id number] [place] [id number] Mar, [place] [address] [address] Mar, [place] [address] [address] Mar, [place] [address] [address] Feb, Jaw pain 784.92 and Environm ental and seasonal allergies 477.8 [facility] [address] [address] Feb, [place] [address] [place] [id number] [place] [address] Oct, [facility] [address] [address] Oct, [facility] [address] [id number] [address] [place] [address], [place] [address] 14 Oct, 2014 [facility] [address] [id number] [address] [place] [address], [place] [address] Oct, [facility] [address] [id number] [address] [place] [address], [place] [address] Sep, [facility] [address] [id number] [address] [place] [address], [place] [address] Sep, [facility] [address] [id number] [address] [place] [address], [place] [address] Jul, [facility] [address] [id number] [address] [place] [address], [place] [address] Jul, [facility] [address] [id number] [address] [place] [address], [place] [address] Jul, [facility] [address] [id number] [address] [place] [address], [place] [address] Jul, [facility] [address] [id number] [address] [place] [address], [place] [address] Jul, [facility] [address] [id number] [address] [place] [address], [place] [address] Jul, [facility] [address] [id number] [address] [place] [address], [place] [address] Jul, [facility] [address] [id number] [address] [place] [address], [place] [address] Jun, [facility] [address] [id number] [address] [place] [address], [place] [address] Jun, [facility] [address] [id number] [address] [place] [address], [place] [address] Jun, [facility] [address] [id number] [address] [place] [address], [place] [address] Jun, [facility] [address] [id number] [address] [place] [address], [place] [address] 17 Jun, 2014 [facility] [address] [id number] [address] [place] [address], [place] [address] Jun, [facility] [address] [id number] [address] [place] [address], [place] [address] Jun, [facility] [address] [id number] [address] [place] [address], [place] [address] Jun, [facility] [address] [id number] [address] [place] [address], [place] [address] Apr, [facility] [address] [id number] [address] [place] [address], [place] [address] Apr, [facility] [address] [id number] [address] [place] [address], [place] [address] Mar, [facility] [address] [id number] [address] [place] [address], [place] [address] Mar, [facility] [address] [id number] [address] [place] [address], [place] [address] Mar, [facility] [address] [id number] [address] [place] [address], [place] [address] Mar, [facility] [address] [id number] [address] [place] [address], [place] [address] Jan, [facility] [address] [id number] [address] [place] [address], [place] [address] Jan, [facility] [address] [id number] [address] [place] [address], [place] [address] Oct, [facility] [address] [id number] [address] [place] [address], [place] [address] Oct, [facility] [address] [id number] [address] [place] [address], [place] [address] Sep, [facility] [address] [id number] [address] [place] [address], [place] [address] Sep, [facility] [address] [id number] [address] [place] [address], [place] [address] Sep, [facility] [address] [id number] [address] [place] [address], [place] [address] Sep, [facility] [address] [id number] [address] [place] [address], [place] [address] Sep, [facility] [address] [id number] [address] [place] [address], [place] [address] Sep, [facility] [address] [id number] [address] [place] [address], [place] [address] Aug, [facility] [address] [id number] [address] [place] [address], [place] [address] Aug, [facility] [address] [id number] [address] [place] [address], [place] [address] Jul, [facility] [address] [id number] [address] [place] [address], [place] [address] Jul, [facility] [address] [id number] [address] [place] [address], [place] [address] Jul, [facility] [address] [id number] [address] [place] [address], [place] [address] Jul, [facility] [address] [id number] [address] [place] [address], [place] [address] Jun, [facility] [address] [id number] [address] [place] [id number] Jun, [facility] [address] [id number] [address] [place] [address], [place] [id number] May, [facility] [address] [id number] [address] [place] [address], [place] [id number] May, [facility] [address] [id number] [address] [place] [address], [place] [id number] Apr, [facility] [address] [id number] [address] [place] [address] [place] [id number] Apr, [facility] [address] [id number] [address] [place] [address], [place] [id number] Apr, [facility] [address] [id number] [address] [place] [address], [place] [id number] Apr, [facility] [address] [id number] [address] [place] [address], [place] [id number] Apr, [facility] [address] [id number] [address] [place] [address], [place] [id number] Apr, [facility] [address] [id number] [address] [place] [address], [place] [id number] 24 Mar, 2013 [facility] [address] [id number] [address] [place] [address], [place] [id number] Mar, [facility] [address] [id number] [address] [place] [address], [place] [id number] 09 Mar, 2013 [facility] [address] [id number] [address] [place] [address], [place] [id number] 05 Mar, 2012 [facility] [address] [id number] [address] [place] [address], [place] [id number] 05 Mar, 2012 [facility] [address] [id number] [address] [place] [address], [place] [id number] 30 Feb, 2013 [facility] [address] [id number] [address] [place] [address], [place] [id number] Feb, [facility] [address] [id number] [address] [place] [address], [place] [id number] Feb, [facility] [address] [id number] [address] [place] [address], [place] [id number] Feb, [facility] [address] [id number] [address] [place] [address], [place] [id number] Jan, [facility] [address] [id number] [address] [place] [address], [place] [id number] Jan, [facility] [address] [id number] [facility] [place] [id number] 16 Jan, 2013 [facility] [address] [id number] [address] [place] [address], [place] [id number] Jan, [facility] [address] [id number] [address] [place] [address], [place] [address] Jan, [facility] [address] [id number] [address] [place] [address], [place] [address] Jan, [facility] [address] [id number] [address] [place] [address], [place] [address] Dec, [facility] [address] [id number] [address] [place] [address], [place] [address] 25 Dec, 2012 [facility] [address] [id number] [address] [place] [address], [place] [address] Dec, [facility] [address] [id number] [address] [place] [address], [place] [id number] 14 Dec, 2012 [facility] [address] [id number] [address] [place] [address], [place] [address] Dec, [facility] [address] [id number] [address] [place] [address], [place] [address] Dec, [facility] [address] [id number] [address] [place] [address], [place] [address] Dec, [facility] [address] [id number] [address] [place] [address], [place] [address] Dec, [facility] [address] [id number] [address] [place] [address], [place] [address] 05 Dec, 2012 [facility] [address] [id number] [address] [place] [address], [place] [address] Dec, [facility] [address] [id number] [address] [place] [address], [place] [address] November, [facility] [address] [id number] [address] [place] [address], [place] [address] November, [facility] [address] [id number] [address] [place] [address], [place] [address] November, [facility] [address] [id number] [address] [place] [address], [place] [address] November, [facility] [address] [id number] [address] [place] [address], [place] [address] November, [facility] [address] [id number] [address] [place] [address], [place] [address] Oct, [facility] [address] [id number] [address] [place] [address], [place] [address] Oct, [facility] [address] [id number] [address] [place] [address], [place] [address] Oct, [facility] [address] [id number] [address] [place] [address], [place] [id number] Oct, [facility] [address] [id number] [address] [place] [address], [place] [address] Oct, [facility] [address] [id number] [address] [place] [address], [place] [address] Sep, [facility] [address] [id number] [address] [place] [address], [place] [address] Sep, [facility] [address] [id number] [address] [place] [address], [place] [address] Sep, [facility] [address] [id number] [address] [place] [address], [place] [address] Sep, [facility] [address] [id number] [address] [place] [address], [place] [address] Aug, [facility] [address] [id number] [address] [place] [address], [place] [address] Aug, [facility] [address] [id number] [address] [place] [address], [place] [address] Aug, [facility] [address] [id number] [address] [place] [address], [place] [address] 15 Aug, 2012 [facility] [address] [id number] [address] [place] [address], [place] [address] Jun, [facility] [address] [id number] [address] [place] [address], [place] [address] Jun, [facility] [address] [id number] [address] [place] [address], [place] [id number] Jun, [facility] [address] [id number] [address] [place] [address], [place] [address] Jun, [facility] [address] [id number] [address] [place] [address], [place] [address] Jun, [facility] [address] [id number] [address] [place] [address], [place] [address] Jun, [facility] [address] [id number] [address] [place] [address], [place] [address] Jun, [facility] [address] [id number] [address] [place] [address], [place] [address] Jun, [facility] [address] [id number] [address] [place] [address], [place] [address] Jun, [facility] [address] [id number] [address] [place] [address], [place] [address] Jun, [facility] [address] [id number] [address] [place] [address], [place] [address] May, [facility] [address] [id number] [address] [place] [address], [place] [address] May, [facility] [address] [id number] [address] [place] [address], [place] [address] May, [facility] [address] [id number] [address] [place] [address], [place] [address] May, [facility] [address] [id number] [address] [place] [address], [place] [address] May, [facility] [address] [id number] [address] [place] [address], [place] [address] 16 May, 2012 [facility] [address] [id number] [address] [place] [address], [place] [address] 16 May, 2012 [facility] [address] [id number] [address] [place] [address], [place] [address] 14 May, 2012 [facility] [address] [id number] [address] [place] [address], [place] [address] 14 May, 2012 [facility] [address] [id number] [address] [place] [address], [place] [address] 30 Apr, 2012 [facility] [address] [id number] [address] [place] [address], [place] [address] 30 Apr, 2012 [facility] [address] [id number] [address] [place] [address], [place] [address] 17 Apr, 2012 [facility] [address] [id number] [address] [place] [address], [place] [id number] 17 Apr, 2012 [facility] [address] [id number] [address] [place] [address], [place] [address] 09 Apr, 2012 [facility] [address] [id number] [address] [place] [address], [place] [address] 18 Mar, 2012 [facility] [address] [id number] [address] [place] [address], [place] [address] 17 Mar, 2012 [facility] [address] [id number] [address] [place] [address], [place] [address] 07 Mar, 2012 [facility] [address] [id number] [address] [place] [address], [place] [id number] 27 Feb, 2012 [facility] [address] [id number] [address] [place] [address], [place] [id number] 16 Feb, 2012 [facility] [address] [id number] [address] [place] [address], [place] [address] 15 Feb, 2012 [facility] [address] [id number] [address] [place] [address] [place] [address] Feb, [facility] [address] [id number] [address] [place] [address], [place] [address] Jan, [facility] [address] [id number] [address] [place] [address], [place] [address] Jan, [facility] [address] [id number] [address] [place] [address], [place] [address] Jan, [facility] [address] [id number] [address] [place] [address], [place] [address] Jan, [facility] [address] [id number] [address] [place] [address], [place] [address] Jan, [facility] [address] [id number] [address] [place] [address], [place] [address] Jan, [facility] [address] [id number] [address] [place] [address], [place] [address] Dec, [facility] [address] [id number] [address] [place] [address], [place] [address] Dec, [facility] [address] [id number] [address] [place] [address], [place] [address] Dec, [facility] [address] [id number] [address] [place] [address], [place] [address] November, [facility] [address] [id number] [address] [place] [address], [place] [address] November, [facility] [address] [id number] [address] [place] [address], [place] [address] November, [facility] [address] [id number] [address] [place] [address], [place] [address] November, [facility] [address] [id number] [address] [place] [address], [place] [address] Oct, [facility] [address] [id number] [address] [place] [address], [place] [address] Oct, [facility] [address] [id number] [address] [place] [address], [place] [address] Oct, [facility] [address] [id number] [address] [place] [address], [place] [address] Sep, [facility] [address] [id number] [address] [place] [address], [place] [address] Sep, [facility] [address] [id number] [address] [place] [address], [place] [address] Aug, [facility] [address] [id number] [address] [place] [address], [place] [address] Aug, [facility] [address] [id number] [address] [place] [address], [place] [address] Aug, [facility] [address] [id number] [address] [place] [address], [place] [address] Aug, [facility] [address] [id number] [address] [place] [address], [place] [address] Jul, [facility] [address] [id number] [address] [place] [address], [place] [address] Jul, [facility] [address] [id number] [address] [place] [address], [place] [address] Jul, [facility] [address] [id number] [address] [place] [address], [place] [address] Jul, [facility] [address] [id number] [address] [place] [address], [place] [address] Jul, [facility] [address] [id number] [address] [place] [address], [place] [address] Jul, [facility] [address] [id number] [address] [place] [address], [place] [address] Jul, [facility] [address] [id number] [address] [place] [address], [place] [address] Jul, [facility] [address] [id number] [address] [place] [id number] 30 Jun, 2011 [facility] [address] [id number] [address] [place] [address], [place] [address] Jun, [facility] [address] [id number] [address] [place] [id number] Jun, [facility] [address] [id number] [address] [place] [address], [place] [address] 08 Jun, 2011 [facility] [address] [id number] [address] [place] [id number] Jun, [facility] [address] [id number] [address] [place] [address], [place] [address] May, [facility] [address] [id number] [address] [place] [address], [place] [address] May, [facility] [address] [id number] [address] [place] [id number] May, [facility] [address] [id number] [address] [place] [address], [place] [address] May, [facility] [address] [id number] [address] [place] [id number] May, [facility] [address] [id number] [address] [place] [address] May, [facility] [address] [id number] [address] [place] [id number] Apr, [facility] [address] [id number] [address] [place] [id number] Apr, [facility] [address] [id number] [address] [place] [id number] Apr, [facility] [address] [id number] [address] [place] [id number] Feb, [facility] [address] [id number] [address] [place] [id number] Feb, [facility] [address] [id number] [address] [place] [id number] Oct, [facility] [address] [id number] [address] [place] [id number] Jul, [facility] [address] [id number] [address] [place] [id number] Jul, [facility] [address] [id number] [address] [place] [id number] Jun, [facility] [address] [id number] [address] [place] [id number] May, [facility] [address] [id number] [address] [place] [id number] May, [facility] [address] [id number] [address] [place] [id number] May, [facility] [address] [id number] [address] [place] [id number] Apr, [facility] [address] [id number] [address] [place] [id number] Jan, [facility] [address] [id number] [address] [place] [id number] November, IMMUNIZATIONS No Known Immunizations SOCIAL HISTORY [...]
[2020-01-31 09:41] LABS: BUN/CREATININE RATIO 11
--- OUTSIDE RECORDS SUMMARY | 2020-01-31 09:41 | XMS REPORT ---
Author Author Ivet Hutton Organization [facility] Address [address] [place] [address] Care Team Providers Care Guest Services Attendant Name Role Phone VERONIQUE Hutton Unavailable PROBLEMS Type Condition ICD9-CM Code NDV32-OM Code Onset Dates Condition S tatus SNOMED Code Problem Hypothyroidism E03.9 Active 68014 008 Problem GERD (gastroesophageal reflux disease) K21.9 Active 100763956 Problem Essential hypertension I10 Active 72919460 Problem Anxiety F41.9 Active 68021657 Problem Osteoarthritis M19.90 Active 77645 5006 Problem Schizo affective schizophrenia F25.0 Active 008662101 Problem Bilateral carotid artery disease I77.9 Active 861997430 Problem Low back pain, unspecified b ack pain laterality, unspecified chronicity, with sciatica presence unspecified M54.5 Active 509193585 Problem Vitamin D deficiency E55.9 Active 95762814 Problem Iron deficiency anemia, unspecified iron deficiency an emia type D50.9 Active 76246289 Problem Secondary hyperparathyroidism, not elsewhere classified E21.1 Active 79254142 Problem Lumbago with sciatica, right side M54.41 Active [id number] Problem Fibromyalgia M79.7 Active 1063024 05 Problem Other chronic pain G89.29 Active 8 5630945 Problem Stage 3 chronic kidney disease N18.3 Active 981387603 Problem Depression F32.9 Active 21166507 Problem Sensory loss R20.0 Active 0783119 9 Problem Idiopathic peripheral neuropathy G60.9 Active 20476628 Problem Acquired hypothyroidism E03.9 Active 141884387 Problem Lumbago with sciatica, left side M54.42 Active 250951827 ALLERGIES No Information ENCOUNTERS Encounter Location Date Diagnosis [facility] [address] [facility] [id number] [address] [place] [address] Oct, Osteoarthritis M19.90 [facility] [address] [id number] [address] [place] [address] Sep, [facility] [address] [facility] [id number] [address] [place] [address] Aug, Osteoarthritis M19.90 [facility] [address] [id number] [address] [place] [address] Jul, Osteoarthritis M19.90 [facility] [address] [facility] [id number] [address] [place] [address] Jun, Osteoarthritis M19.90 [facility] [address] [id number] [address] [place] [address] Jun, Herpes zoster without compli cation B02.9 [facility] [address] [id number] [address] [place] [address] May, Osteoarthritis M19.90 [facility] [address] [place] [id number] [address] [place] [address] May, [facility] [address] [id number] [address] [place] [address] Apr, [place] [address] [place] [id number] [address] [place] [address] Mar, Osteoarthritis M19.90 [facility] [address] [place] [id number] [address] [place] [address] Mar, [facility] [address] [id number] [address] [place] [address] Feb, Lumbago with sciatica, left side M54.42 ; Lumbago with sciatica, right side M54.41 and Other chronic pain G89.29 [facility] [address] [place] [id number] [address] [place] [address] Feb, Encounter for Medicare annua l wellness exam Z00.00 ; Schizo affective schizophrenia F25.0 ; Essential hypertension I10 ; GERD (gastroesophageal reflux disease) K21.9 ; Secondary hyperparathyroidism, not elsewhere classified E21.1 ; Idiopathic peripheral neuropathy G60.9 ; Stage 3 chronic kidney disease N18.3 ; Acquired hypothyroidism E03.9 ; Bilateral carotid artery disease I77.9 and Hypothyroidism E03.9 [facility] [address] [id number] [address] [place] [address] Feb, Osteoarthritis M19.90 [facility] [address] [id number] [address] [place] [address] Jan, Osteoarthritis M19.90 [facility] [address] [id number] [address] [place] [address] Jan, Osteoarthritis M19.90 [facility] [address] [id number] [address] [place] [address] Dec, Acquired hypothyroidism E03. 9 [facility] [address] [id number] [address] [place] [address] Dec, Fibromyalgia M79.7 ; Hypothy roidism E03.9 ; Essential hypertension I10 and Sensory loss R20.[id number] [place] [address] November, Osteoarthritis M19.90 [facility] [address] [id number] [address] [place] [address] Oct, Osteoarthritis M19.90 [facility] [address] [id number] [address] [place] [address] Oct, Sore throat J02.9 and Acute nasopharyngitis J00 [facility] [address] [id number] [address] [place] [address] Sep, Osteoarthritis M19.90 [facility] [address] [id number] [address] [place] [address] Sep, Acute non-recurrent maxillar y sinusitis J01.00 [facility] [address] [id number] [address] [place] [address] Aug, Acute non-recurrent pansinus itis J01.40 [facility] [address] [place] [id number] [address] [place] [address] Jul, Osteoarthritis M19.90 [facility] [address] [address] Jul, [facility] [address] [address] Apr, Osteoarthritis M19.90 [place] [address] [address] Apr, Fibromyalgia M79.7 ; Essenti al hypertension I10 ; Encounter for immunization Z23 ; Stage 3 chronic kidney disease N18.3 and Depression F32.9 [place] [address] [address] Dec, Fibromyalgia M79.7 ; Osteoar thritis M19.90 and Encounter for medication management Z79.899 [facility] [address] [address] November, Nausea and vomiting, intract ability of vomiting not specified, unspecified vomiting type R11.2 and Dizziness R42 [place] [address] [address] November, Fibromyalgia M79.7 [place] [address] [address] November, Medicare annual wellness vis it, initial Z00.00 ; Anxiety F41.9 ; Depression F32.9 ; Stage 3 chronic kidney disease N18.3 ; Fibromyalgia M79.7 ; Essential hypertension I10 ; Secondary hyperparathyroidism, not elsewhere classified E21.1 ; Osteoarthritis M19.90 ; Hypothyroidism E03.9 and Encounter for immunization Z23 [facility] [address] [address] Oct, [facility] [address] [address] Oct, Sebaceous cyst L72.3 [place] [address] [address] Sep, Low back pain, unspecified b ack pain laterality, unspecified chronicity, with sciatica presence unspecified M54.5 and Secondary hyperparathyroidism, not elsewhere classified E21.1 [facility] [address] [place] [id number] [address] [place] [address] Sep, Fibromyalgia M79.7 [facility] [address] [address] Sep, Fibromyalgia M79.7 ; Plantar fasciitis, bilateral M72.2 ; Essential hypertension I10 ; Depression F32.9 and Epidermoid cyst L72.0 [place] [address] [address] Jul, [place] [address] [address] Jul, Fibromyalgia M79.7 ; Iron de ficiency anemia, unspecified iron deficiency anemia type D50.9 and Acute nasopharyngitis J00 [facility] [address] [address] Jun, Sore throat J02.9 and Acute serous otitis media of left ear, recurrence not specified H65.02 [facility] [address] [address] Jun, Hypothyroidism E03.9 [place] [address] [address] Jun, [place] [address] [address] Jun, Hypothyroidism E03.9 ; Essen tial hypertension I10 and Osteoarthritis M19.90 [facility] [address] [address] May, [facility] [address] [address] May, [place] [address] [address] Feb, [place] [address] [address] Feb, Leonela-menopausal N95.1 and To bacco use Z72.[address] [address] Jan, [place] [address] [address] Jan, Osteoarthritis M19.90 ; Bila teral carotid artery disease I77.9 ; Raynauds syndrome I73.00 ; Essential hypertension I10 ; Allergic rhinitis J30.9 ; Stage 3 chronic kidney disease N18.3 ; Fibromyalgia M79.7 ; Hypothyroidism E03.9 ; GERD (gastroesophageal reflux disease) K21.9 and Vitamin D deficiency E55.[address] [address] Dec, Raynauds syndrome I73.00 ; P lantar fascial fibromatosis M72.2 ; Osteoarthritis M19.90 and Fibromyalgia M79.7 [place] [address] [address] Dec, [place] [address] [address] Dec, [place] [address] [address] Oct, Function kidney decreased N2 8.9 [facility] [id number] [place] [id number] Oct, Dental examination Z01.20 [place] [address] [address] Oct, Essential hypertension I10 a nd Function kidney decreased N28.9 [facility] [address] [place] [id number] [place] [id number] Oct, Dental examination Z01.20 [facility] [address] [id number] [address] [place] [address] Oct, [facility] [address] [facility] [id number] [address] [place] [address] 24 Sep, 2016 Other specified disorders in volving the immune mechanism D89.89 and Schizo affective schizophrenia F25.0 [facility] [address] [id number] [address] [place] [address] 21 Sep, 2016 Schizo affective schizophren ia F25.0 [facility] [address] [id number] [address] [place] [address] 16 Sep, 2016 Eustachian tube dysfunction, bilateral H69.83 [facility] [address] [facility] [id number] [address] [place] [address] 15 Sep, 2016 [facility] [address] [facility] [id number] [address] [place] [address] 14 Sep, 2016 [facility] [address] [id number] [address] [place] [address] 14 Sep, 2016 [facility] [address] [facility] [id number] [address] [place] [address] 13 Sep, 2016 Eustachian tube dysfunction, bilateral H69.83 [facility] [address] [facility] [id number] [address] [place] [address] 09 Sep, 2016 Allergic rhinitis J30.9 ; Es sential hypertension I10 ; Hypothyroidism E03.9 and Schizo affective schizophrenia F25.0 [facility] [address] [id number] [address] [place] [address] Jul, Eustachian tube dysfunction, bilateral H69.83 and Visit for TB skin test Z11.1 [facility] [address] [facility] [id number] [address] [place] [address] Jul, Subacute pansinusitis J01.40 [facility] [address] [facility] [id number] [address] [place] [address] Jun, Schizo affective schizophren ia F25.0 ; Depression F32.9 ; Allergic rhinitis J30.9 ; Raynauds syndrome I73.00 ; Essential hypertension I10 ; Slow transit constipation K59.01 ; GERD (gastroesophageal reflux disease) K21.9 ; Hypothyroidism E03.9 ; Nicotine addiction F17.200 ; Other viral agents as the cause of diseases classified elsewhere B97.89 ; Acute upper respiratory infection, unspecified J06.9 and Osteoarthritis M19.90 [place] [address] [address] Jun, Allergic rhinitis J30.9 and GERD (gastroesophageal reflux disease) K21.9 [place] [address] [address] May, [place] [address] [address] Mar, Schizo affective schizophren ia F25.0 [place] [address] [address] Mar, Schizo affective schizophren ia F25.0 [place] [address] [address] Mar, Schizo affective schizophren ia F25.0 [place] [address] [address] Mar, Acute non-recurrent maxillar y sinusitis J01.00 [place] [address] [address] Feb, Schizo affective schizophren ia F25.0 [place] [address] [address] Feb, Contact dermatitis and eczem a L25.9 [place] [address] [address] Jan, [place] [address] [address] Jan, Schizo affective schizophren ia F25.0 ; Slow transit constipation K59.01 ; Essential hypertension I10 ; GERD (gastroesophageal reflux disease) K21.9 ; Hypothyroidism E03.9 ; Osteoarthritis M19.90 ; Low back pain, unspecified back pain laterality, unspecified chronicity, with sciatica presence unspecified M54.5 and Bilateral carotid artery disease I77.9 [place] [address] [address] Oct, [facility] [address] [address] Sep, Hypothyroid E03.9 [place] [address] [address] Sep, Schizo affective schizophren ia F25.0 ; Depression F32.9 ; Anxiety F41.9 ; Allergic rhinitis J30.9 ; Raynauds syndrome I73.00 ; Insomnia G47.00 ; Essential hypertension I10 ; GERD (gastroesophageal reflux disease) K21.9 ; Hypothyroidism E03.9 and Vitamin D deficiency E55.9 [place] [id number] [address] Sep, [place] [address] [address] Sep, [place] [address] [address] Aug, Allergic rhinitis J30.9 ; De pression F32.9 ; Anxiety F41.9 ; Raynauds syndrome I73.00 ; Insomnia G47.00 and GERD (gastroesophageal reflux disease) K21.9 [place] [address] [address] Aug, MONICA (secretory otitis media) H65.90 and Raynauds syndrome I73.00 [facility] [address] [place] [id number] [address] [place] [address] Jul, Acute otitis externa of both ears, unspecified type H60.503 [facility] [address] [place] [id number] [address] [place] [address] Jun, [facility] [address] [place] [id number] [address] [place] [address] Jun, Essential hypertension I10 ; Allergic rhinitis J30.9 ; Hypothyroidism E03.9 and Osteoarthritis M19.90 [place] [address] [place] [id number] [address] [place] [address] Jun, Routine adult health mainten ance Z00.00 ; Hypothyroidism E03.9 ; Essential hypertension I10 ; Insomnia G47.00 ; Nicotine addiction F17.200 ; Raynauds syndrome I73.00 ; GERD (gastroesophageal reflux disease) K21.9 ; Allergic rhinitis J30.9 ; Anxiety F41.9 ; Depression F32.9 and Schizo affective schizophrenia F25.0 [place] [address] [place] [id number] [address] [place] [address] May, Upper respiratory tract infe ction, unspecified type J06.9 [place] [address] [place] [id number] [address] [place] [address] Mar, [facility] [address] [facility] [id number] [place] [id number] Mar, [place] [address] [place] [address] Mar, [place] [address] [place] [id number] [address] [place] [address] Mar, [place] [address] [place] [id number] [address] [place] [address] Feb, Jaw pain 784.92 and Environm ental and seasonal allergies 477.8 [facility] [address] [place] [id number] [address] [place] [address] Feb, [place] [address] [place] [id number] [address] [place] [address] Oct, [facility] [address] [id number] [address] [place] [address], [place] [address] 28 Oct, 2014 [facility] [address] [id number] [address] [place] [address], [place] [address] 14 Oct, 2014 [facility] [address] [id number] [address] [place] [address], [place] [address] Oct, [facility] [address] [id number] [address] [place] [address], [place] [address] Sep, [facility] [address] [id number] [address] [place] [address], [place] [address] Sep, [facility] [address] [id number] [address] [place] [address], [place] [address] Jul, [facility] [address] [id number] [address] [place] [address], [place] [address] Jul, [facility] [address] [id number] [address] [place] [address], [place] [address] Jul, [facility] [address] [id number] [address] [place] [address], [place] [address] Jul, [facility] [address] [id number] [address] [place] [address], [place] [address] Jul, [facility] [address] [id number] [address] [place] [address], [place] [address] Jul, [facility] [address] [id number] [address] [place] [address], [place] [address] Jul, [facility] [address] [id number] [address] [place] [address], [place] [address] Jun, [facility] [address] [id number] [address] [place] [address], [place] [address] Jun, [facility] [address] [id number] [address] [place] [address], [place] [address] Jun, [facility] [address] [id number] [address] [place] [address], [place] [address] 18 Jun, 2014 [facility] [address] [id number] [address] [place] [address], [place] [address] Jun, [facility] [address] [id number] [address] [place] [address], [place] [address] Jun, [facility] [address] [id number] [address] [place] [address], [place] [address] Jun, [facility] [address] [id number] [address] [place] [address], [place] [address] Jun, [facility] [address] [id number] [address] [place] [address], [place] [address] Apr, [facility] [address] [id number] [address] [place] [address], [place] [address] Apr, [facility] [address] [id number] [address] [place] [address], [place] [address] Mar, [facility] [address] [id number] [address] [place] [address], [place] [address] Mar, [facility] [address] [id number] [address] [place] [address], [place] [address] Mar, [facility] [address] [id number] [address] [place] [address], [place] [address] Mar, [facility] [address] [id number] [address] [place] [address], [place] [address] Jan, [facility] [address] [id number] [address] [place] [address], [place] [address] Jan, [facility] [address] [id number] [address] [place] [address], [place] [address] Oct, [facility] [address] [id number] [address] [place] [address], [place] [address] Oct, [facility] [address] [id number] [address] [place] [address], [place] [address] Sep, [facility] [address] [id number] [address] [place] [address], [place] [address] Sep, [facility] [address] [id number] [address] [place] [address], [place] [address] Sep, [facility] [address] [id number] [address] [place] [address], [place] [address] Sep, [facility] [address] [id number] [address] [place] [address], [place] [address] Sep, [facility] [address] [id number] [address] [place] [address], [place] [address] Sep, [facility] [address] [id number] [address] [place] [address], [place] [address] Aug, [facility] [address] [id number] [address] [place] [address], [place] [address] Aug, [facility] [address] [id number] [address] [place] [address], [place] [address] Jul, [facility] [address] [id number] [address] [place] [address], [place] [address] Jul, [facility] [address] [id number] [address] [place] [address], [place] [address] Jul, [facility] [address] [id number] [address] [place] [address], [place] [address] Jul, [facility] [address] [id number] [address] [place] [address], [place] [address] Jun, [facility] [address] [id number] [address] [place] [address], [place] [address] Jun, [facility] [address] [id number] [address] [place] [address], [place] [address] May, [facility] [address] [id number] [address] [place] [address], [place] [address] May, [facility] [address] [id number] [address] [place] [address], [place] [address] Apr, [facility] [address] [id number] [address] [place] [address], [place] [address] Apr, [facility] [address] [id number] [address] [place] [address], [place] [address] Apr, [facility] [address] [id number] [address] [place] [address], [place] [address] Apr, [facility] [address] [id number] [address] [place] [address], [place] [address] Apr, [facility] [address] [id number] [address] [place] [address], [place] [address] Apr, [facility] [address] [id number] [address] [place] [address], [place] [address] 24 Mar, 2013 [facility] [address] [id number] [address] [place] [address], [place] [address] Mar, [facility] [address] [id number] [address] [place] [address], [place] [address] Mar, [facility] [address] [id number] [address] [place] [address], [place] [address] 05 Mar, 2013 [facility] [address] [id number] [address] [place] [address], [place] [address] 05 Mar, 2013 [facility] [address] [id number] [address] [place] [address], [place] [address] 30 Feb, 2013 [facility] [address] [id number] [address] [place] [address], [place] [address] Feb, [facility] [address] [id number] [address] [place] [address], [place] [address] Feb, [facility] [address] [id number] [address] [place] [address], [place] [address] Feb, [facility] [address] [id number] [address] [place] [address], [place] [address] Jan, [facility] [address] [id number] [address] [place] [address] 17 Jan, 2013 [facility] [address] [id number] [address] [place] [address], [place] [address] 16 Jan, 2013 [facility] [address] [id number] [address] [place] [address], [place] [address] Jan, [facility] [address] [id number] [address] [place] [address], [place] [address] Jan, [facility] [address] [id number] [address] [place] [address], [place] [address] Jan, [facility] [address] [id number] [address] [place] [address], [place] [address] Dec, [facility] [address] [id number] [address] [place] [address], [place] [address] Dec, [facility] [address] [id number] [address] [place] [address], [place] [address] Dec, [facility] [address] [id number] [address] [place] [address], [place] [address] 14 Dec, 2012 [facility] [address] [id number] [address] [place] [address], [place] [address] Dec, [facility] [address] [id number] [address] [place] [address], [place] [address] Dec, [facility] [address] [id number] [address] [place] [address], [place] [address] Dec, [facility] [address] [id number] [address] [place] [address], [place] [address] Dec, [facility] [address] [id number] [address] [place] [address], [place] [address] 05 Dec, 2012 [facility] [address] [id number] [address] [place] [address], [place] [address] Dec, [facility] [address] [id number] [address] [place] [address], [place] [address] November, [facility] [address] [id number] [address] [place] [address], [place] [address] November, [facility] [address] [id number] [address] [place] [address], [place] [address] November, [facility] [address] [id number] [address] [place] [address], [place] [address] November, [facility] [address] [id number] [address] [place] [address], [place] [address] November, [facility] [address] [id number] [address] [place] [address], [place] [address] Oct, [facility] [address] [id number] [address] [place] [address], [place] [address] Oct, [facility] [address] [id number] [address] [place] [address], [place] [address] Oct, [facility] [address] [id number] [address] [place] [address], [place] [address] Oct, [facility] [address] [id number] [address] [place] [address], [place] [address] Oct, [facility] [address] [id number] [address] [place] [address], [place] [address] Sep, [facility] [address] [id number] [address] [place] [address], [place] [address] Sep, [facility] [address] [id number] [address] [place] [address], [place] [address] Sep, [facility] [address] [id number] [address] [place] [address], [place] [address] Sep, [facility] [address] [id number] [address] [place] [address], [place] [address] Aug, [facility] [address] [id number] [address] [place] [address], [place] [address] Aug, [facility] [address] [id number] [address] [place] [address], [place] [address] 18 Aug, 2012 [facility] [address] [id number] [address] [place] [address], [place] [address] 15 Aug, 2012 [facility] [address] [id number] [address] [place] [address], [place] [address] Jun, [facility] [address] [id number] [address] [place] [address], [place] [address] Jun, [facility] [address] [id number] [address] [place] [address], [place] [address] Jun, [facility] [address] [id number] [address] [place] [address], [place] [address] Jun, [facility] [address] [id number] [address] [place] [address], [place] [address] Jun, [facility] [address] [id number] [address] [place] [address], [place] [address] Jun, [facility] [address] [id number] [address] [place] [address], [place] [address] Jun, [facility] [address] [id number] [address] [place] [address], [place] [address] Jun, [facility] [address] [id number] [address] [place] [address], [place] [address] Jun, [facility] [address] [id number] [address] [place] [address], [place] [address] Jun, [facility] [address] [id number] [address] [place] [address], [place] [address] May, [facility] [address] [id number] [address] [place] [address], [place] [address] May, [facility] [address] [id number] [address] [place] [address], [place] [address] May, [facility] [address] [id number] [address] [place] [address], [place] [address] May, [facility] [address] [id number] [address] [place] [address], [place] [address] 26 May, 2012 [facility] [address] [id number] [address] [place] [address], [place] [address] 16 May, 2012 [facility] [address] [id number] [address] [place] [address], [place] [address] 16 May, 2012 [facility] [address] [id number] [address] [place] [address], [place] [address] 14 May, 2012 [facility] [address] [id number] [address] [place] [address], [place] [address] 14 May, 2012 [facility] [address] [id number] [address] [place] [address], [place] [address] 30 Apr, 2012 [facility] [address] [id number] [address] [place] [address], [place] [address] 30 Apr, 2012 [facility] [address] [id number] [address] [place] [address], [place] [address] 17 Apr, 2012 [facility] [address] [id number] [address] [place] [address], [place] [address] 17 Apr, 2012 [facility] [address] [id number] [address] [place] [address], [place] [address] 09 Apr, 2012 [facility] [address] [id number] [address] [place] [address], [place] [address] 18 Mar, 2012 [facility] [address] [id number] [address] [place] [address], [place] [address] 17 Mar, 2012 [facility] [address] [id number] [address] [place] [address], [place] [address] 07 Mar, 2012 [facility] [address] [id number] [address] [place] [address], [place] [address] 27 Feb, 2012 [facility] [address] [id number] [address] [place] [address], [place] [address] 16 Feb, 2012 [facility] [address] [id number] [address] [place] [address], [place] [address] 15 Feb, 2012 [facility] [address] [id number] [address] [place] [address], [place] [address] Feb, [facility] [address] [id number] [address] [place] [address], [place] [address] Jan, [facility] [address] [id number] [address] [place] [address], [place] [address] Jan, [facility] [address] [id number] [address] [place] [address], [place] [address] Jan, [facility] [address] [id number] [address] [place] [address], [place] [address] Jan, [facility] [address] [id number] [address] [place] [address], [place] [address] Jan, [facility] [address] [id number] [address] [place] [address], [place] [address] Jan, [facility] [address] [id number] [address] [place] [address], [place] [address] Dec, [facility] [address] [id number] [address] [place] [address], [place] [address] Dec, [facility] [address] [id number] [address] [place] [address], [place] [address] Dec, [facility] [address] [id number] [address] [place] [address], [place] [address] November, [facility] [address] [id number] [address] [place] [address], [place] [address] November, [facility] [address] [id number] [address] [place] [address], [place] [address] November, [facility] [address] [id number] [address] [place] [address], [place] [address] November, [facility] [address] [id number] [address] [place] [address], [place] [address] Oct, [facility] [address] [id number] [address] [place] [address], [place] [address] Oct, [facility] [address] [id number] [address] [place] [address], [place] [address] Oct, [facility] [address] [id number] [address] [place] [address], [place] [address] Sep, [facility] [address] [id number] [address] [place] [address], [place] [address] Sep, [facility] [address] [id number] [address] [place] [address], [place] [address] Aug, [facility] [address] [id number] [address] [place] [address], [place] [address] Aug, [facility] [address] [id number] [address] [place] [address], [place] [address] Aug, [facility] [address] [id number] [address] [place] [address], [place] [address] Aug, [facility] [address] [id number] [address] [place] [address], [place] [address] Jul, [facility] [address] [id number] [address] [place] [address], [place] [address] Jul, [facility] [address] [id number] [address] [place] [address], [place] [address] Jul, [facility] [address] [id number] [address] [place] [address], [place] [address] Jul, [facility] [address] [id number] [address] [place] [address], [place] [address] Jul, [facility] [address] [id number] [address] [place] [address], [place] [address] Jul, [facility] [address] [id number] [address] [place] [address], [place] [address] Jul, [facility] [address] [id number] [address] [place] [address], [place] [address] Jul, [facility] [address] [id number] [address] [place] [address], [place] [address] 30 Jun, 2011 [facility] [address] [id number] [address] [place] [address], [place] [address] Jun, [facility] [address] [id number] [address] [place] [address], [place] [address] Jun, [facility] [address] [id number] [address] [place] [address], [place] [address] Jun, [facility] [address] [id number] [address] [place] [address], [place] [address] Jun, [facility] [address] [id number] [address] [place] [address], [place] [address] May, [facility] [address] [id number] [address] [place] [address], [place] [address] May, [facility] [address] [id number] [address] [place] [address], [place] [address] May, [facility] [address] [id number] [address] [place] [address], [place] [address] May, [facility] [address] [id number] [address] [place] [address], [place] [address] May, [facility] [address] [id number] [address] [place] [address], [place] [address] May, [facility] [address] [id number] [address] [place] [address], [place] [address] Apr, [facility] [address] [id number] [address] [place] [address], [place] [address] Apr, [facility] [address] [id number] [address] [place] [address], [place] [address] Apr, [facility] [address] [id number] [address] [place] [address], [place] [address] Feb, [facility] [address] [id number] [address] [place] [address], [place] [address] Feb, [facility] [address] [id number] [address] [place] [address] Oct, [facility] [address] [id number] [address] [place] [address] Jul, [facility] [address] [id number] [address] [place] [address] Jul, [facility] [address] [id number] [address] [place] [address] Jun, [facility] [address] [id number] [address] [place] [address] May, [facility] [address] [id number] [address] [place] [address] May, [facility] [address] [id number] [address] [place] [address] May, [facility] [address] [id number] [address] [place] [address] Apr, [facility] [address] [id number] [address] [place] [address] Jan, [facility] [address] [facility] [id number] [address] [place] [address] November, IMMUNIZATIONS No Known Immunizations SOCIAL HISTORY Never Assessed REASON FOR VISIT PLAN OF CARE VITAL SIGNS Height 70 in 2014-03-16 Weight 183.6 lbs 2014-03-16 Temperature 99.2 degrees Fahrenheit 2014-03-16 Heart Rate 76 bpm 2014-03-16 Respiratory Rate 16 2014-03-16 Blood pressure systolic 142 mmHg 2014-03-16 Blood pressure diastolic 82 mmHg 2014-03-16 MEDICATIONS Unknown Medications RESULTS No Results PROCEDURES [...]
--- OUTSIDE RECORDS SUMMARY | 2020-01-31 09:41 | XMS REPORT ---
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 Name Role Phone QUYEN TURNER Unavailable PROBLEMS Type Condition ICD9-CM Code XLR91-SV Code Onset Dates Condition S tatus SNOMED Code Problem GERD (gastroesophageal reflux disease) K21.9 Active 222544951 Problem Osteoarthritis M19.90 Active 25065 5006 Problem Bilateral carotid artery disease I77.9 Active 412621930 Problem Secondary hyperparathyroidism, not elsewhere classified E21.1 Active 02258305 Problem Schizo affective schizophrenia F25.0 Active 449246240 Problem Acquired hypothyroidism E03.9 Active 792151068 Problem Essential hypertension I10 Active 98209202 Problem Stage 3 chronic kidney disease N18.3 Active 303732902 Problem Fibromyalgia M79.7 Active 6583499 05 Problem Vitamin D deficiency E55.9 Active 40120781 Problem Iron deficiency anemia, unspecified iron deficiency an emia type D50.9 Active 41986801 ALLERGIES No Information ENCOUNTERS Encounter Location Date Diagnosis [place] [address] [place] [address] 14 Oct, 2019 Lumbar radiculopathy M54.16 ; Fibromyalgia M79.7 ; Essential hypertension I10 and GERD (gastroesophageal reflux disease) K21.9 [facility] [address] [facility] [id number] [address] [place] [address] 03 Oct, 2019 Osteoarthritis M19.90 [facility] [address] [place] [id number] [address] [place] [address] Sep, [facility] [address] [facility] [id number] [address] [place] [address] Aug, Osteoarthritis M19.90 [facility] [address] [place] [id number] [address] [place] [address] Jul, Osteoarthritis M19.90 [facility] [address] [facility] [id number] [address] [place] [address] Jun, Osteoarthritis M19.90 [facility] [address] [facility] [id number] [address] [place] [address] Jun, Herpes zoster without compli cation B02.9 [facility] [address] [facility] [id number] [address] [place] [address] May, Osteoarthritis M19.90 [facility] [address] [facility] [id number] [address] [place] [address] May, [facility] [address] [facility] [id number] [address] [place] [address] Apr, [facility] [address] [place] [id number] [address] [place] [address] Mar, Osteoarthritis M19.90 [facility] [address] [place] [id number] [address] [place] [address] Mar, [facility] [address] [facility] [id number] [address] [place] [address] Feb, Lumbago with sciatica, left side M54.42 ; Lumbago with sciatica, right side M54.41 and Other chronic pain G89.29 [facility] [address] [place] [id number] [address] [place] [address] Feb, [facility] Z[facility].00 ; Schizo affective schizophrenia F25.0 ; Essential hypertension I10 ; GERD (gastroesophageal reflux disease) K21.9 ; Secondary hyperparathyroidism, not elsewhere classified E21.1 ; Idiopathic peripheral neuropathy G60.9 ; Stage 3 chronic kidney disease N18.3 ; Acquired hypothyroidism E03.9 ; Bilateral carotid artery disease I77.9 and Hypothyroidism E03.9 [facility] [address] [place] [id number] [address] [place] [address] Feb, Osteoarthritis M19.90 [facility] [address] [place] [id number] [address] [place] [address] Jan, Osteoarthritis M19.90 [facility] [address] [facility] [id number] [address] [place] [address] Jan, Osteoarthritis M19.90 [facility] [address] [facility] [id number] [address] [place] [address] Dec, Acquired hypothyroidism E03. 9 [facility] [address] [facility] [id number] [address] [place] [address] Dec, Fibromyalgia M79.7 ; Hypothy roidism E03.9 ; Essential hypertension I10 and Sensory loss R20.[id number] [place] [address] November, Osteoarthritis M19.90 [facility] [address] [facility] [id number] [address] [place] [address] Oct, Osteoarthritis M19.90 [facility] [address] [facility] [id number] [address] [place] [address] Oct, Sore throat J02.9 and Acute nasopharyngitis J00 [facility] [address] [facility] [id number] [address] [place] [address] Sep, Osteoarthritis M19.90 [facility] [address] [facility] [id number] [address] [place] [address] Sep, Acute non-recurrent maxillar y sinusitis J01.00 [facility] [address] [facility] [id number] [address] [place] [address] Aug, Acute non-recurrent pansinus itis J01.40 [facility] [address] [facility] [id number] [address] [place] [address] Jul, Osteoarthritis M19.90 [facility] [address] [facility] [id number] [address] [place] [address] Jul, [facility] [address] [facility] [id number] [address] [place] [address] 18 Apr, 2018 Osteoarthritis M19.90 [facility] [address] [address] 08 Apr, 2018 Fibromyalgia M79.7 ; Essenti al hypertension I10 ; Encounter for immunization Z23 ; Stage 3 chronic kidney disease N18.3 and Depression F32.9 [facility] [address] [address] Dec, Fibromyalgia M79.7 ; Osteoar thritis M19.90 and Encounter for medication management Z79.899 [facility] [address] [address] November, Nausea and vomiting, intract ability of vomiting not specified, unspecified vomiting type R11.2 and Dizziness R42 [place] [address] [address] November, Fibromyalgia M79.7 [place] [address] [address] 11 Nov, 2017 Medicare annual wellness vis it, initial Z00.00 ; Anxiety F41.9 ; Depression F32.9 ; Stage 3 chronic kidney disease N18.3 ; Fibromyalgia M79.7 ; Essential hypertension I10 ; Secondary hyperparathyroidism, not elsewhere classified E21.1 ; Osteoarthritis M19.90 ; Hypothyroidism E03.9 and Encounter for immunization Z23 [facility] [address] [place] [id number] [address] [place] [phone] Oct, [place] [address] [address] Oct, Sebaceous cyst L72.3 [place] [address] [address] Sep, Low back pain, unspecified b ack pain laterality, unspecified chronicity, with sciatica presence unspecified M54.5 and Secondary hyperparathyroidism, not elsewhere classified E21.1 [place] [address] [address] Sep, Fibromyalgia M79.7 [facility] [address] [place] [id number] [address] [place] [address] Sep, Fibromyalgia M79.7 ; Plantar fasciitis, bilateral M72.2 ; Essential hypertension I10 ; Depression F32.9 and Epidermoid cyst L72.0 [facility] [address] [address] Jul, [facility] [address] [place] [id number] [place] [address] Jul, Fibromyalgia M79.7 ; Iron de ficiency anemia, unspecified iron deficiency anemia type D50.9 and Acute nasopharyngitis J00 [facility] [address] [place] [id number] [address] [place] [address] Jun, Sore throat J02.9 and Acute serous otitis media of left ear, recurrence not specified H65.02 [facility] [address] [place] [id number] [address] [place] [address] Jun, Hypothyroidism E03.9 [facility] [address] [address] Jun, [facility] [address] [place] [id number] [place] [address] Jun, Hypothyroidism E03.9 ; Essen tial hypertension I10 and Osteoarthritis M19.90 [facility] [address] [place] [id number] [address] [place] [address] May, [facility] [address] [place] [id number] [address] [place] [address] May, [facility] [address] [place] [id number] [address] [place] [address] Feb, [facility] [address] [place] [id number] [address] [place] [address] Feb, Leonela-menopausal N95.1 and To bacco use Z72.0 [facility] [address] [facility] [id number] [address] [place] [address] Jan, [place] [id number] [facility] [id number] [place] [address] Jan, Osteoarthritis M19.90 ; Bila teral carotid artery disease I77.9 ; Raynauds syndrome I73.00 ; Essential hypertension I10 ; Allergic rhinitis J30.9 ; Stage 3 chronic kidney disease N18.3 ; Fibromyalgia M79.7 ; Hypothyroidism E03.9 ; GERD (gastroesophageal reflux disease) K21.9 and Vitamin D deficiency E55.9 [place] [address] [facility] [id number] [address] [place] [address] Dec, Raynauds syndrome I73.00 ; P lantar fascial fibromatosis M72.2 ; Osteoarthritis M19.90 and Fibromyalgia M79.7 [place] [address] [facility] [id number] [address] [place] [address] Dec, [facility] [address] [facility] [id number] [address] [place] [phone] Dec, [facility] [address] [facility] [id number] [address] [place] [address] Oct, Function kidney decreased N2 8.9 [facility] [address] [id number] [address] [place] [id number] Oct, Dental examination Z01.20 [facility] [address] [id number] [address] [place] [address] Oct, Essential hypertension I10 a nd Function kidney decreased N28.9 [facility] [address] [id number] [address] [place] [id number] Oct, Dental examination Z01.20 [facility] [address] [facility] [id number] [address] [place] [address] Oct, [facility] [address] [facility] [id number] [address] [place] [address] Sep, Other specified disorders in volving the immune mechanism D89.89 and Schizo affective schizophrenia F25.0 [facility] [address] [place] [id number] [address] [place] [address] Sep, Schizo affective schizophren ia F25.0 [facility] [address] [facility] [id number] [address] [place] [address] 16 Sep, 2016 Eustachian tube dysfunction, bilateral H69.83 [facility] [address] [place] [id number] [address] [place] [address] 15 Sep, 2016 [facility] [address] [place] [id number] [address] [place] [address] Sep, [place] [address] [place] [id number] [address] [place] [address] 14 Sep, 2016 [place] [address] [address] Sep, Eustachian tube dysfunction, bilateral H69.83 [facility] [address] [place] [id number] [address] [place] [address] 09 Sep, 2016 Allergic rhinitis J30.9 ; Es sential hypertension I10 ; Hypothyroidism E03.9 and Schizo affective schizophrenia F25.0 [facility] [address] [place] [id number] [address] [place] [address] Jul, Eustachian tube dysfunction, bilateral H69.83 and Visit for TB skin test Z11.1 [facility] [address] [place] [id number] [address] [place] [address] Jul, Subacute pansinusitis J01.40 [facility] [address] [place] [address] Jun, Schizo affective schizophren ia F25.0 ; Depression F32.9 ; Allergic rhinitis J30.9 ; Raynauds syndrome I73.00 ; Essential hypertension I10 ; Slow transit constipation K59.01 ; GERD (gastroesophageal reflux disease) K21.9 ; Hypothyroidism E03.9 ; Nicotine addiction F17.200 ; Other viral agents as the cause of diseases classified elsewhere B97.89 ; Acute upper respiratory infection, unspecified J06.9 and Osteoarthritis M19.90 [place] [address] [place] [id number] Jun, Allergic rhinitis J30.9 and GERD (gastroesophageal reflux disease) K21.9 [place] [address] [address] May, [place] [address] [address] Mar, Schizo affective schizophren ia F25.0 [place] [address] [address] Mar, Schizo affective schizophren ia F25.0 [place] [address] [address] Mar, Schizo affective schizophren ia F25.0 [place] [address] [address] Mar, Acute non-recurrent maxillar y sinusitis J01.00 [place] [address] [address] Feb, Schizo affective schizophren ia F25.0 [place] [address] [address] Feb, Contact dermatitis and eczem a L25.9 [place] [address] [address] Jan, [place] [address] [address] Jan, Schizo affective schizophren ia F25.0 ; Slow transit constipation K59.01 ; Essential hypertension I10 ; GERD (gastroesophageal reflux disease) K21.9 ; Hypothyroidism E03.9 ; Osteoarthritis M19.90 ; Low back pain, unspecified back pain laterality, unspecified chronicity, with sciatica presence unspecified M54.5 and Bilateral carotid artery disease I77.9 [place] [address] [address] Oct, [place] [address] [address] Sep, Hypothyroid E03.9 [place] [address] [address] Sep, Schizo affective schizophren ia F25.0 ; Depression F32.9 ; Anxiety F41.9 ; Allergic rhinitis J30.9 ; Raynauds syndrome I73.00 ; Insomnia G47.00 ; Essential hypertension I10 ; GERD (gastroesophageal reflux disease) K21.9 ; Hypothyroidism E03.9 and Vitamin D deficiency E55.9 [place] [address] [address] Sep, [address] [address] Sep, [place] [address] [address] Aug, Allergic rhinitis J30.9 ; De pression F32.9 ; Anxiety F41.9 ; Raynauds syndrome I73.00 ; Insomnia G47.00 and GERD (gastroesophageal reflux disease) K21.9 [place] [address] [address] Aug, MONICA (secretory otitis media) H65.90 and Raynauds syndrome I73.00 [facility] [address] [address] Jul, Acute otitis externa of both ears, unspecified type H60.503 [place] [address] [place] [id number] [address] [place] [address] Jun, [place] [address] [address] Jun, Essential hypertension I10 ; Allergic rhinitis J30.9 ; Hypothyroidism E03.9 and Osteoarthritis M19.90 [facility] [address] [place] [id number] [address] [place] [address] Jun, Routine adult health mainten ance Z00.00 ; Hypothyroidism E03.9 ; Essential hypertension I10 ; Insomnia G47.00 ; Nicotine addiction F17.200 ; Raynauds syndrome I73.00 ; GERD (gastroesophageal reflux disease) K21.9 ; Allergic rhinitis J30.9 ; Anxiety F41.9 ; Depression F32.9 and Schizo affective schizophrenia F25.0 [facility] [address] [place] [id number] [address] [place] [address] May, Upper respiratory tract infe ction, unspecified type J06.9 [facility] [address] [place] [id number] [address] [place] [address] Mar, [facility] [address] [place] [id number] [place] [id number] Mar, [facility] [address] [address] Mar, [facility] [address] [address] Mar, [facility] [address] [place] [id number] [address] [place] [address] Feb, Jaw pain 784.92 and Environm ental and seasonal allergies 477.8 [facility] [address] [place] [id number] [address] [place] [address] Feb, [facility] [address] [place] [id number] [address] [place] [address] Oct, [facility] [address] [address] Oct, [facility] [address] [place] [id number] [address] [place] [address] Oct, [facility] [address] [address] Oct, [facility] [address] [id number] [address] [place] [address], [place] [address] Sep, [facility] [address] [id number] [address] [place] [address], [place] [address] Sep, [facility] [address] [id number] [address] [place] [address], [place] [address] Jul, [facility] [address] [id number] [address] [place] [address], [place] [address] Jul, [facility] [address] [id number] [address] [place] [address], [place] [address] Jul, [facility] [address] [id number] [address] [place] [address], [place] [address] Jul, [facility] [address] [id number] [address] [place] [address], [place] [address] Jul, [facility] [address] [id number] [address] [place] [address], [place] [address] Jul, [facility] [address] [id number] [address] [place] [address], [place] [address] Jul, [facility] [address] [id number] [address] [place] [address], [place] [address] Jun, [facility] [address] [id number] [address] [place] [address], [place] [address] 31 Jun, 2014 [facility] [address] [id number] [address] [place] [address], [place] [address] 22 Jun, 2014 [facility] [address] [id number] [address] [place] [address], [place] [address] 18 Jun, 2014 [facility] [address] [id number] [address] [place] [address], [place] [address] 17 Jun, 2014 [facility] [address] [id number] [address] [place] [address], [place] [address] 17 Jun, 2014 [facility] [address] [id number] [address] [place] [address], [place] [address] 16 Jun, 2014 [facility] [address] [id number] [address] [place] [address], [place] [address] Jun, [facility] [address] [id number] [address] [place] [address], [place] [address] Apr, [facility] [address] [id number] [address] [place] [address], [place] [address] Apr, [facility] [address] [id number] [address] [place] [address], [place] [address] Mar, [facility] [address] [id number] [address] [place] [address], [place] [address] Mar, [facility] [address] [id number] [address] [place] [address], [place] [address] Mar, [facility] [address] [id number] [address] [place] [address], [place] [address] Mar, [facility] [address] [id number] [address] [place] [address], [place] [address] Jan, [facility] [address] [id number] [address] [place] [address], [place] [address] Jan, [facility] [address] [id number] [address] [place] [address], [place] [address] Oct, [facility] [address] [id number] [address] [place] [address], [place] [address] Oct, [facility] [address] [id number] [address] [place] [address], [place] [address] Sep, [facility] [address] [id number] [address] [place] [address], [place] [address] Sep, [facility] [address] [id number] [address] [place] [address], [place] [address] Sep, [facility] [address] [id number] [address] [place] [address], [place] [address] Sep, [facility] [address] [id number] [address] [place] [address], [place] [address] Sep, [facility] [address] [id number] [address] [place] [address], [place] [address] Sep, [facility] [address] [id number] [address] [place] [address], [place] [address] Aug, [facility] [address] [id number] [address] [place] [address], [place] [address] Aug, [facility] [address] [id number] [address] [place] [address], [place] [address] Jul, [facility] [address] [id number] [address] [place] [address], [place] [address] Jul, [facility] [address] [id number] [address] [place] [address], [place] [address] Jul, [facility] [address] [id number] [address] [place] [address], [place] [address] Jul, [facility] [address] [id number] [address] [place] [address], [place] [address] Jun, [facility] [address] [id number] [address] [place] [address], [place] [address] Jun, [facility] [address] [id number] [address] [place] [address], [place] [address] May, [facility] [address] [id number] [address] [place] [id number] May, [facility] [address] [id number] [address] [place] [address], [place] [address] Apr, [facility] [address] [id number] [address] [place] [address], [place] [address] Apr, [facility] [address] [id number] [address] [place] [address], [place] [address] Apr, [facility] [address] [id number] [address] [place] [address], [place] [address] Apr, [facility] [address] [id number] [address] [place] [address], [place] [address] Apr, [facility] [address] [id number] [address] [place] [address], [place] [address] Apr, [facility] [address] [id number] [address] [place] [address], [place] [address] 24 Mar, 2013 [facility] [address] [id number] [address] [place] [address], [place] [address] 12 Mar, 2013 [facility] [address] [id number] [address] [place] [address], [place] [address] 09 Mar, 2013 [facility] [address] [id number] [address] [place] [address], [place] [address] 05 Mar, 2013 [facility] [address] [id number] [address] [place] [address], [place] [address] 05 Mar, 2013 [facility] [address] [id number] [address] [place] [address], [place] [address] 30 Feb, 2013 [facility] [address] [id number] [address] [place] [address], [place] [address] Feb, [facility] [address] [id number] [address] [place] [address], [place] [address] Feb, [facility] [address] [id number] [address] [place] [address], [place] [address] Feb, [facility] [address] [id number] [address] [place] [address], [place] [address] Jan, [facility] [address] [id number] [address] [place] [address], [place] [address] Jan, [facility] [address] [id number] [address] [place] [address], [place] [address] 16 Jan, 2013 [facility] [address] [id number] [address] [place] [address], [place] [address] Jan, [facility] [address] [id number] [facility] [place] [address] Jan, [facility] [address] [id number] [address] [place] [address], [place] [address] Jan, [facility] [address] [id number] [address] [place] [address], [place] [address] Dec, [facility] [address] [id number] [address] [place] [address], [place] [address] Dec, [facility] [address] [id number] [address] [place] [address], [place] [address] Dec, [facility] [address] [id number] [address] [place] [address], [place] [address] 14 Dec, 2012 [facility] [address] [id number] [address] [place] [address], [place] [address] Dec, [facility] [address] [id number] [address] [place] [address], [place] [address] Dec, [facility] [address] [id number] [address] [place] [address], [place] [address] Dec, [facility] [address] [id number] [address] [place] [address], [place] [address] Dec, [facility] [address] [id number] [address] [place] [address], [place] [address] Dec, [facility] [address] [id number] [address] [place] [address], [place] [address] Dec, [facility] [address] [id number] [address] [place] [address], [place] [address] November, [facility] [address] [id number] [address] [place] [address], [place] [address] November, [facility] [address] [id number] [address] [place] [address], [place] [address] November, [facility] [address] [id number] [address] [place] [address], [place] [address] November, [facility] [address] [id number] [address] [place] [address], [place] [address] November, [facility] [address] [id number] [address] [place] [address], [place] [address] Oct, [facility] [address] [id number] [address] [place] [address], [place] [address] Oct, [facility] [address] [id number] [address] [place] [address], [place] [address] Oct, [facility] [address] [id number] [address] [place] [address], [place] [address] Oct, [facility] [address] [id number] [address] [place] [address], [place] [address] Oct, [facility] [address] [id number] [address] [place] [address], [place] [address] Sep, [facility] [address] [id number] [address] [place] [address], [place] [address] Sep, [facility] [address] [id number] [address] [place] [address], [place] [address] Sep, [facility] [address] [id number] [address] [place] [address], [place] [address] Sep, [facility] [address] [id number] [address] [place] [address], [place] [address] Aug, [facility] [address] [id number] [address] [place] [address], [place] [address] Aug, [facility] [address] [id number] [address] [place] [address], [place] [address] Aug, [facility] [address] [id number] [address] [place] [address], [place] [address] Aug, [facility] [address] [id number] [address] [place] [address], [place] [address] Jun, [facility] [address] [id number] [facility] [place] [address] 17 Jun, 2012 [facility] [address] [id number] [address] [place] [address], [place] [address] Jun, [facility] [address] [id number] [address] [place] [address], [place] [address] Jun, [facility] [address] [id number] [address] [place] [address], [place] [address] Jun, [facility] [address] [id number] [address] [place] [address], [place] [address] Jun, [facility] [address] [id number] [address] [place] [address], [place] [address] Jun, [facility] [address] [id number] [address] [place] [address], [place] [address] Jun, [facility] [address] [id number] [address] [place] [address], [place] [address] Jun, [facility] [address] [id number] [address] [place] [address], [place] [address] Jun, [facility] [address] [id number] [address] [place] [address], [place] [address] May, [facility] [address] [id number] [address] [place] [address], [place] [address] May, [facility] [address] [id number] [address] [place] [address], [place] [address] May, [facility] [address] [id number] [address] [place] [address], [place] [address] May, [facility] [address] [id number] [address] [place] [address], [place] [address] May, [facility] [address] [id number] [address] [place] [address], [place] [address] 16 May, 2012 [facility] [address] [id number] [address] [place] [address], [place] [address] 16 May, 2012 [facility] [address] [id number] [address] [place] [address], [place] [address] 14 May, 2012 [facility] [address] [id number] [address] [place] [address], [place] [address] 14 May, 2012 [facility] [address] [id number] [address] [place] [address], [place] [address] 30 Apr, 2012 [facility] [address] [id number] [address] [place] [address], [place] [address] 30 Apr, 2012 [facility] [address] [id number] [address] [place] [address], [place] [address] 17 Apr, 2012 [facility] [address] [id number] [address] [place] [address], [place] [address] 17 Apr, 2012 [facility] [address] [id number] [address] [place] [address], [place] [address] Apr, [facility] [address] [id number] [address] [place] [address], [place] [address] 18 Mar, 2012 [facility] [address] [id number] [address] [place] [address], [place] [address] 17 Mar, 2012 [facility] [address] [id number] [address] [place] [address], [place] [address] 07 Mar, 2012 [facility] [address] [id number] [address] [place] [address], [place] [address] 27 Feb, 2012 [facility] [address] [id number] [address] [place] [address], [place] [address] 16 Feb, 2012 [facility] [address] [id number] [address] [place] [address], [place] [address] 15 Feb, 2012 [facility] [address] [id number] [address] [place] [address], [place] [address] 14 Feb, 2012 [facility] [address] [id number] [address] [place] [address], [place] [address] Jan, [facility] [address] [id number] [address] [place] [address], [place] [address] Jan, [facility] [address] [id number] [address] [place] [address], [place] [address] Jan, [facility] [address] [id number] [address] [place] [address], [place] [address] Jan, [facility] [address] [id number] [address] [place] [address], [place] [address] Jan, [facility] [address] [id number] [address] [place] [address], [place] [address] Jan, [facility] [address] [id number] [address] [place] [address], [place] [address] Dec, [facility] [address] [id number] [address] [place] [address], [place] [address] Dec, [facility] [address] [id number] [address] [place] [address], [place] [address] Dec, [facility] [address] [id number] [address] [place] [address], [place] [address] November, [facility] [address] [id number] [address] [place] [address], [place] [address] November, [facility] [address] [id number] [address] [place] [address], [place] [address] November, [facility] [address] [id number] [address] [place] [address], [place] [address] November, [facility] [address] [id number] [address] [place] [address], [place] [address] Oct, [facility] [address] [id number] [address] [place] [address], [place] [address] Oct, [facility] [address] [id number] [address] [place] [address], [place] [address] Oct, [facility] [address] [id number] [address] [place] [address], [place] [address] Sep, [facility] [address] [id number] [address] [place] [address], [place] [address] Sep, [facility] [address] [id number] [address] [place] [address], [place] [address] Aug, [facility] [address] [id number] [address] [place] [address], [place] [address] Aug, [facility] [address] [id number] [address] [place] [address], [place] [address] Aug, [facility] [address] [id number] [address] [place] [address], [place] [address] Aug, [facility] [address] [id number] [address] [place] [address], [place] [address] Jul, [facility] [address] [id number] [address] [place] [address], [place] [address] Jul, [facility] [address] [id number] [address] [place] [address], [place] [address] Jul, [facility] [address] [id number] [address] [place] [address], [place] [address] Jul, [facility] [address] [id number] [address] [place] [address], [place] [address] Jul, [facility] [address] [id number] [address] [place] [address], [place] [address] Jul, [facility] [address] [id number] [address] [place] [address], [place] [address] Jul, [facility] [address] [id number] [address] [place] [address], [place] [address] Jul, [facility] [address] [id number] [address] [place] [address], [place] [address] Jun, [facility] [address] [id number] [address] [place] [address], [place] [address] Jun, [facility] [address] [id number] [address] [place] [address] 15 Jun, 2011 [facility] [address] [id number] [address] [place] [address], [place] [address] 08 Jun, 2011 [facility] [address] [id number] [address] [place] [address], [place] [address] Jun, [facility] [address] [id number] [address] [place] [address], [place] [address] May, [facility] [address] [id number] [address] [place] [address], [place] [address] May, [facility] [address] [id number] [address] [place] [address], [place] [address] May, [facility] [address] [id number] [address] [place] [address], [place] [address] May, [facility] [address] [id number] [address] [place] [address], [place] [address] May, [facility] [address] [id number] [address] [place] [address], [place] [address] May, [facility] [address] [id number] [address] [place] [address], [place] [address] Apr, [facility] [address] [id number] [address] [place] [address], [place] [address] Apr, [facility] [address] [id number] [address] [place] [address], [place] [address] Apr, [facility] [address] [id number] [address] [place] [address], [place] [address] Feb, [facility] [address] [id number] [address] [place] [address], [place] [address] Feb, [facility] [address] [id number] [address] [place] [address], [place] [address] Oct, [facility] [address] [id number] [address] [place] [address], [place] [address] Jul, [facility] [address] [id number] [address] [place] [address] Jul, [facility] [address] [id number] [address] [place] [address] Jun, [facility] [address] [id number] [address] [place] [address] May, [facility] [address] [id number] [address] [place] [address] May, [facility] [address] [id number] [address] [place] [address] May, [facility] [address] [id number] [address] [place] [address] Apr, [facility] [address] [id number] [address] [place] [address] Jan, [facility] [address] [facility] [id number] [address] [place] [address] November, IMMUNIZATIONS No Known Immunizations SOCIAL HISTORY Never Assessed REASON FOR VISIT PLAN OF CARE VITAL SIGNS Height 70 in 2011-12-26 Weight 215.2 lbs 2011-12-26 Temperature 101 degrees Fahrenheit 2011-12-26 Heart Rate 105 bpm 2011-12-26 Respiratory Rate 32 2011-12-26 Blood pressure systolic 165 mmHg 2011-12-26 Blood pressure diastolic 85 mmHg 2011-12-26 MEDICATIONS No Known Medications RESULTS No Results [...]
--- OUTSIDE RECORDS SUMMARY | 2020-01-31 09:41 | XMS REPORT ---
Author Author Ivet BRISENO Y Organization [facility] Address [address] [place] [address] Care Team Providers Care District Engineer Name Role Phone LINDY BRISENO Unavailable PROBLEMS Type Condition ICD9-CM Code [id number] Code Onset Dates Condition S tatus SNOMED Code Problem GERD (gastroesophageal reflux disease) K21.9 Active 431979333 Problem Osteoarthritis M19.90 Active 46658 5006 Problem Bilateral carotid artery disease I77.9 Active 953831170 Problem Secondary hyperparathyroidism, not elsewhere classified E21.1 Active 13400184 Problem Schizo affective schizophrenia F25.0 Active 194932106 Problem Acquired hypothyroidism E03.9 Active 157978974 Problem Essential hypertension I10 Active 75253207 Problem Stage 3 chronic kidney disease N18.3 Active 223333547 Problem Fibromyalgia M79.7 Active 5160972 05 Problem Vitamin D deficiency E55.9 Active 97684260 Problem Iron deficiency anemia, unspecified iron deficiency an emia type D50.9 Active 34752931 ALLERGIES No Information ENCOUNTERS Encounter Location Date Diagnosis [facility] [address] [id number] [address] [place] [address] 14 Oct, 2019 Lumbar radiculopathy M54.16 ; Fibromyalgia M79.7 ; Essential hypertension I10 and GERD (gastroesophageal reflux disease) K21.9 [facility] [address] [facility] [id number] [address] [place] [address] 03 Oct, [address] [facility] [address] [facility] [id number] [address] [place] [address] Sep, [facility] [address] [facility] [id number] [address] [place] [address] Aug, Osteoarthritis M19.90 [facility] [address] [id number] [address] [place] [address] Jul, Osteoarthritis M19.90 [facility] [address] [id number] [address] [place] [address] Jun, Osteoarthritis M19.90 [facility] [address] [facility] [id number] [address] [place] [address] Jun, Herpes zoster without compli cation B02.9 [facility] [address] [facility] [id number] [address] [place] [address] May, Osteoarthritis M19.90 [facility] [address] [id number] [address] [place] [address] May, [facility] [id number] [place] [address] Apr, [facility] [address] [id number] [address] [place] [address] Mar, Osteoarthritis M19.90 [facility] [address] [id number] [address] [place] [address] Mar, [facility] [address] [address] Feb, Lumbago with sciatica, left side M54.42 ; Lumbago with sciatica, right side M54.41 and Other chronic pain G89.29 [facility] [address] [address] Feb, Encounter for Medicare annua l wellness exam Z00.00 ; Schizo affective schizophrenia F25.0 ; Essential hypertension I10 ; GERD (gastroesophageal reflux disease) K21.9 ; Secondary hyperparathyroidism, not elsewhere classified E21.1 ; Idiopathic peripheral neuropathy G60.9 ; Stage 3 chronic kidney disease N18.3 ; Acquired hypothyroidism E03.9 ; Bilateral carotid artery disease I77.[address] [facility] [address] [id number] [address] [place] [address] Feb, Osteoarthritis M19.90 [facility] [address] [facility] [id number] [address] [place] [address] Jan, Osteoarthritis M19.90 [facility] [address] [facility] [id number] [address] [place] [address] Jan, Osteoarthritis M19.90 [facility] [address] [facility] [id number] [address] [place] [address] Dec, Acquired hypothyroidism E03. 9 [facility] [address] [facility] [id number] [address] [place] [address] Dec, Fibromyalgia M79.7 ; Hypothy roidism E03.9 ; Essential hypertension I10 and Sensory loss R20.[id number] [place] [address] November, Osteoarthritis M19.90 [facility] [address] [facility] [id number] [address] [place] [address] Oct, Osteoarthritis M19.90 [facility] [address] [facility] [id number] [address] [place] [address] Oct, Sore throat J02.9 [address] Acute nasopharyngitis J00 [facility] [address] [facility] [id number] [address] [place] [address] Sep, Osteoarthritis M19.90 [facility] [address] [facility] [id number] [address] [place] [address] Sep, Acute non-recurrent maxillar y sinusitis J01.00 [facility] [address] [facility] [id number] [address] [place] [address] Aug, Acute non-recurrent pansinus itis J01.40 [facility] [address] [facility] [id number] [address] [place] [address] Jul, Osteoarthritis M19.90 [facility] [address] [facility] [id number] [address] [place] [address] Jul, [facility] [address] [address] 18 Apr, 2018 Osteoarthritis M19.90 [place] [address] [address] 08 Apr, 2018 Fibromyalgia M79.7 ; Essenti al hypertension I10 ; Encounter for immunization Z23 ; Stage 3 chronic kidney disease N18.3 and Depression F32.9 [place] [address] [address] Dec, Fibromyalgia M79.7 ; Osteoar thritis M19.90 and Encounter for medication management Z79.899 [facility] [address] [address] November, Nausea and vomiting, intract ability of vomiting not specified, unspecified vomiting type R11.2 and Dizziness R42 [address] [address] November, Fibromyalgia M79.7 [place] [address] [address] 11 Nov, 2017 Medicare annual wellness vis it, initial Z00.00 ; Anxiety F41.9 ; Depression F32.9 ; Stage 3 chronic kidney disease N18.3 ; Fibromyalgia M79.7 ; Essential hypertension I10 ; Secondary hyperparathyroidism, not elsewhere classified E21.1 ; Osteoarthritis M19.90 ; Hypothyroidism E03.9 and Encounter for immunization Z23 [place] [address] [address] Oct, [place] [address] [address] Oct, Sebaceous cyst L72.3 [place] [address] [address] Sep, Low back pain, unspecified b ack pain laterality, unspecified chronicity, with sciatica presence unspecified M54.5 and Secondary hyperparathyroidism, not elsewhere classified E21.1 [place] [address] [address] 13 Sep, [address] [facility] [address] [address] 05 Sep, 2017 Fibromyalgia M79.7 ; Plantar fasciitis, bilateral M72.2 ; Essential hypertension I10 ; Depression F32.9 and Epidermoid cyst L72.0 [facility] [address] [address] Jul, [facility] [address] [address] Jul, Fibromyalgia M79.7 ; Iron de ficiency anemia, unspecified iron deficiency anemia type D50.9 and Acute nasopharyngitis J00 [facility] [address] [address] Jun, Sore throat J02.9 and Acute serous otitis media of left ear, recurrence not specified H65.02 [facility] [address] [address] Jun, Hypothyroidism E03.9 [place] [address] [address] Jun, [place] [address] [address] Jun, Hypothyroidism E03.9 ; Essen tial hypertension I10 [address] M19[address] [facility] [address] [address] May, [place] [address] [address] May, [place] [address] [address] Feb, [place] [address] [address] Feb, Leonela-menopausal N95.1 and To bacco use Z72.0 [facility] [id number] [place] [address] Jan, [place] [address] [address] Jan, Osteoarthritis M19.90 ; Bila teral carotid artery disease I77.9 ; Raynauds syndrome I73.00 ; Essential hypertension I10 ; Allergic rhinitis J30.9 ; Stage 3 chronic kidney disease N18.3 ; Fibromyalgia M79.7 ; Hypothyroidism E03.9 ; GERD (gastroesophageal reflux disease) K21.9 and Vitamin D deficiency E55.9 [place] [address] [address] Dec, Raynauds syndrome I73.00 ; P lantar fascial fibromatosis M72.2 ; Osteoarthritis M19.90 and Fibromyalgia M79.7 [place] [address] [address] Dec, [place] [address] [address] Dec, [place] [address] [address] Oct, Function kidney decreased N2 8.9 [facility] [address] [id number] Oct, Dental examination Z01.20 [place] [address] [id number] [address] [place] [address] Oct, Essential hypertension I10 a nd Function kidney decreased N28.9 [facility] [id number] [place] [id number] Oct, Dental examination Z01.20 [facility] [id number] [address] [place] [address] Oct, [place] [address] [address] Sep, Other specified disorders in volving the immune mechanism D89.89 and Schizo affective schizophrenia F25.0 [facility] [address] [place] [address] Sep, Schizo affective schizophren ia F25.0 [facility] [address] [facility] [id number] [address] [place] [address] 16 Sep, 2016 Eustachian tube dysfunction, bilateral H69.83 [place] [id number] [place] [address] 15 Sep, 2016 [facility] [id number] [place] [address] 14 Sep, 2016 [place] [id number] [place] [address] 14 Sep, 2016 [place] [address] [address] 13 Sep, 2016 Eustachian tube dysfunction, bilateral H69.83 [facility] [address] [place] [address] 09 Sep, 2016 Allergic rhinitis J30.9 ; Es sential hypertension I10 ; Hypothyroidism E03.9 and Schizo affective schizophrenia F25.0 [facility] [address] [id number] [address] [place] [address] Jul, Eustachian tube dysfunction, bilateral H69.83 and Visit for TB skin test Z11.1 [facility] [address] [id number] [address] [place] [address] Jul, Subacute pansinusitis J01.40 [facility] [address] [address] Jun, Schizo affective schizophren ia F25.0 ; Depression F32.9 ; Allergic rhinitis J30.9 ; Raynauds syndrome I73.00 ; Essential hypertension I10 ; Slow transit constipation K59.01 ; GERD (gastroesophageal reflux disease) K21.9 ; Hypothyroidism E03.9 ; Nicotine addiction F17.200 ; Other viral agents as the cause of diseases classified elsewhere B97.89 ; Acute upper respiratory infection, unspecified J06.9 and Osteoarthritis M19.90 [place] [address] [address] Jun, Allergic rhinitis J30.9 and GERD (gastroesophageal reflux disease) K21.9 [place] [address] [address] May, [place] [address] [address] Mar, Schizo affective schizophren ia F25.0 [place] [address] [address] Mar, Schizo affective schizophren ia F25.0 [place] [address] [address] Mar, Schizo affective schizophren ia F25.0 [place] [address] [address] Mar, Acute non-recurrent maxillar y sinusitis J01.00 [place] [address] [address] Feb, Schizo affective schizophren ia F25.0 [place] [address] [address] Feb, Contact dermatitis and eczem a L25.9 [place] [address] [id number] [place] [address] Jan, [place] [address] [address] Jan, Schizo affective schizophren ia F25.0 ; Slow transit constipation K59.01 ; Essential hypertension I10 ; GERD (gastroesophageal reflux disease) K21.9 ; Hypothyroidism E03.9 ; Osteoarthritis M19.90 ; Low back pain, unspecified back pain laterality, unspecified chronicity, with sciatica presence unspecified M54.5 and Bilateral carotid artery disease I77.9 [place] [address] [address] Oct, [place] [address] [address] Sep, Hypothyroid E03.9 [place] [address] [address] Sep, Schizo affective schizophren ia F25.0 ; Depression F32.9 ; Anxiety F41.9 ; Allergic rhinitis J30.9 ; Raynauds syndrome I73.00 ; Insomnia G47.00 ; Essential hypertension I10 ; GERD (gastroesophageal reflux disease) K21.9 ; Hypothyroidism E03.9 and Vitamin D deficiency E55.9 [place] [address] [address] Sep, [place] [address] [address] Sep, [place] [address] [address] Aug, Allergic rhinitis J30.9 ; De pression F32.9 ; Anxiety F41.9 ; Raynauds syndrome I73.00 ; Insomnia G47.00 and GERD (gastroesophageal reflux disease) K21.9 [place] [address] [address] Aug, MONICA (secretory otitis media) H65.90 and Raynauds syndrome I73.00 [facility] [address] [id number] [address] [place] [address] Jul, Acute otitis externa of both ears, unspecified type H60.503 [facility] [address] [address] Jun, [place] [address] [address] Jun, Essential hypertension I10 ; Allergic rhinitis J30.9 ; Hypothyroidism E03.[address] [facility] [address] [id number] [address] [place] [address] Jun, Routine adult health mainten ance Z00.00 ; Hypothyroidism E03.9 ; Essential hypertension I10 ; Insomnia G47.00 ; Nicotine addiction F17.200 ; Raynauds syndrome I73.00 ; GERD (gastroesophageal reflux disease) K21.9 ; Allergic rhinitis J30.9 ; Anxiety F41.9 ; Depression F32.9 and Schizo affective schizophrenia F25.0 [facility] [address] [id number] [address] [place] [address] May, Upper respiratory tract infe ction, unspecified type J06.9 [facility] [id number] [place] [address] Mar, [facility] [address] [id number] [place] [id number] Mar, [facility] [id number] [place] [address] Mar, [facility] [id number] [place] [address] Mar, [facility] [id number] [place] [address] Feb, Jaw pain 784.92 and Environm ental and seasonal allergies 477.8 [facility] [id number] [place] [address] Feb, [facility] [id number] [place] [address] Oct, [facility] [id number] [place] [address] Oct, [facility] [id number] [place] [address] Oct, [facility] [address] [place] [address] 13 Oct, 2014 [facility] [address] [id number] [address] [place] [address], [place] [address] Sep, [facility] [address] [id number] [address] [place] [address], [place] [address] Sep, [facility] [address] [id number] [address] [place] [address], [place] [address] Jul, [facility] [address] [id number] [address] [place] [address], [place] [address] Jul, [facility] [address] [id number] [address] [place] [address], [place] [address] Jul, [facility] [address] [id number] [address] [place] [address], [place] [address] Jul, [facility] [address] [id number] [address] [place] [address], [place] [address] Jul, [facility] [address] [id number] [address] [place] [address], [place] [address] Jul, [facility] [address] [id number] [address] [place] [address], [place] [address] Jul, [facility] [address] [id number] [address] [place] [address], [place] [address] Jun, [facility] [address] [id number] [address] [place] [address], [place] [address] 31 Jun, 2014 [facility] [address] [id number] [address] [place] [address], [place] [address] 22 Jun, 2014 [facility] [address] [id number] [address] [place] [address], [place] [address] 18 Jun, 2014 [facility] [address] [id number] [address] [place] [address], [place] [address] 17 Jun, 2014 [facility] [address] [id number] [address] [place] [address], [place] [address] Jun, [facility] [address] [id number] [address] [place] [address], [place] [address] Jun, [facility] [address] [id number] [address] [place] [address], [place] [address] Jun, [facility] [address] [id number] [address] [place] [address], [place] [address] Apr, [facility] [address] [id number] [address] [place] [address], [place] [address] Apr, [facility] [address] [id number] [address] [place] [address], [place] [address] Mar, [facility] [address] [id number] [address] [place] [address], [place] [address] Mar, [facility] [address] [id number] [address] [place] [address], [place] [address] Mar, [facility] [address] [id number] [address] [place] [address], [place] [address] Mar, [facility] [address] [id number] [address] [place] [address], [place] [address] Jan, [facility] [address] [id number] [address] [place] [address], [place] [address] Jan, [facility] [address] [id number] [address] [place] [address], [place] [address] Oct, [facility] [address] [id number] [address] [place] [address], [place] [address] Oct, [facility] [address] [id number] [address] [place] [address], [place] [address] Sep, [facility] [address] [id number] [address] [place] [address], [place] [address] Sep, [facility] [address] [id number] [address] [place] [address], [place] [address] Sep, [facility] [address] [id number] [address] [place] [address] Sep, [facility] [address] [id number] [address] [place] [address], [place] [address] Sep, [facility] [address] [id number] [address] [place] [address], [place] [address] Sep, [facility] [address] [id number] [address] [place] [address], [place] [address] Aug, [facility] [address] [id number] [address] [place] [address] Aug, [facility] [address] [id number] [address] [place] [address], [place] [address] Jul, [facility] [address] [id number] [address] [place] [address] Jul, [facility] [address] [id number] [address] [place] [address] Jul, [facility] [address] [id number] [address] [place] [address] Jul, [facility] [address] [id number] [address] [place] [address] Jun, [facility] [address] [id number] [address] [place] [address] Jun, [facility] [address] [id number] [address] [place] [address] May, [facility] [address] [id number] [address] [place] [address] May, [facility] [address] [id number] [address] [place] [address] Apr, [facility] [address] [id number] [address] [place] [address] Apr, [facility] [address] [id number] [address] [place] [address], [place] [address] Apr, [facility] [address] [id number] [address] [place] [address], [place] [address] Apr, [facility] [address] [id number] [address] [place] [address], [place] [address] Apr, [facility] [address] [id number] [address] [place] [address], [place] [address] Apr, [facility] [address] [id number] [address] [place] [address], [place] [address] 24 Mar, 2012 [facility] [address] [id number] [address] [place] [address], [place] [address] 12 Mar, 2012 [facility] [address] [id number] [address] [place] [address], [place] [address] 09 Mar, 2013 [facility] [address] [id number] [address] [place] [address], [place] [address] 05 Mar, 2013 [facility] [address] [id number] [address] [place] [address], [place] [address] 05 Mar, 2012 [facility] [address] [id number] [address] [place] [address], [place] [address] 30 Feb, 2013 [facility] [address] [id number] [address] [place] [address], [place] [address] Feb, [facility] [address] [id number] [address] [place] [address], [place] [address] Feb, [facility] [address] [id number] [address] [place] [address], [place] [address] Feb, [facility] [address] [id number] [address] [place] [address], [place] [address] Jan, [facility] [address] [id number] [address] [place] [address], [place] [address] Jan, [facility] [address] [id number] [address] [place] [address], [place] [address] 16 Jan, 2013 [facility] [address] [id number] [address] [place] [address], [place] [address] Jan, [facility] [address] [id number] [facility] [place] [address] Jan, [facility] [address] [id number] [address] [place] [address], [place] [address] Jan, [facility] [address] [id number] [address] [place] [address], [place] [address] Dec, [facility] [address] [id number] [address] [place] [address], [place] [address] Dec, [facility] [address] [id number] [address] [place] [address], [place] [address] Dec, [facility] [address] [id number] [address] [place] [address], [place] [address] 14 Dec, 2012 [facility] [address] [id number] [address] [place] [address], [place] [address] Dec, [facility] [address] [address] [id number] [address] [place] [address], [place] [address] Dec, [facility] [address] [id number] [address] [place] [address], [place] [address] Dec, [facility] [address] [id number] [address] [place] [address], [place] [address] Dec, [facility] [address] [id number] [address] [place] [address], [place] [address] Dec, [facility] [address] [id number] [address] [place] [address], [place] [address] Dec, [facility] [address] [id number] [address] [place] [address], [place] [address] November, [facility] [address] [id number] [address] [place] [address], [place] [address] November, [facility] [address] [id number] [address] [place] [address], [place] [address] November, [facility] [address] [id number] [address] [place] [address], [place] [address] November, [facility] [address] [id number] [address] [place] [address], [place] [address] November, [facility] [address] [id number] [address] [place] [address], [place] [address] Oct, [facility] [address] [id number] [address] [place] [address], [place] [address] Oct, [facility] [address] [id number] [address] [place] [address], [place] [address] Oct, [facility] [address] [id number] [address] [place] [address], [place] [address] Oct, [facility] [address] [id number] [address] [place] [address], [place] [address] Oct, [facility] [address] [id number] [address] [place] [address], [place] [address] Sep, [facility] [address] [id number] [address] [place] [address], [place] [address] Sep, [facility] [address] [id number] [address] [place] [address], [place] [address] Sep, [facility] [address] [id number] [address] [place] [address], [place] [address] Sep, [facility] [address] [id number] [address] [place] [address], [place] [address] Aug, [facility] [address] [id number] [address] [place] [address], [place] [address] Aug, [facility] [address] [id number] [address] [place] [address], [place] [address] Aug, [facility] [address] [id number] [address] [place] [address], [place] [address] 15 Aug, 2012 [facility] [address] [id number] [address] [place] [address], [place] [address] Jun, [facility] [address] [id number] [address] [place] [address], [place] [address] 17 Jun, 2012 [facility] [address] [id number] [address] [place] [address], [place] [address] Jun, [facility] [address] [id number] [address] [place] [address], [place] [address] Jun, [facility] [address] [id number] [address] [place] [address], [place] [address] Jun, [facility] [address] [id number] [address] [place] [address], [place] [address] Jun, [facility] [address] [id number] [address] [place] [address], [place] [address] Jun, [facility] [address] [id number] [address] [place] [address], [place] [address] Jun, [facility] [address] [id number] [address] [place] [address], [place] [address] Jun, [facility] [address] [id number] [address] [place] [address], [place] [address] Jun, [facility] [address] [id number] [address] [place] [address], [place] [address] May, [facility] [address] [id number] [address] [place] [address], [place] [address] May, [facility] [address] [id number] [address] [place] [address], [place] [address] 27 May, 2012 [facility] [address] [id number] [address] [place] [address], [place] [address] May, [facility] [address] [id number] [address] [place] [address], [place] [address] 26 May, 2012 [facility] [address] [id number] [address] [place] [address], [place] [address] 16 May, 2012 [facility] [address] [id number] [address] [place] [address] 16 May, 2012 [facility] [address] [id number] [address] [place] [address], [place] [address] 14 May, 2012 [facility] [address] [id number] [address] [place] [address], [place] [address] 14 May, 2012 [facility] [address] [id number] [address] [place] [address], [place] [address] 30 Apr, 2012 [facility] [address] [id number] [address] [place] [address], [place] [address] 30 Apr, 2012 [facility] [address] [id number] [address] [place] [address], [place] [address] Apr, [facility] [address] [id number] [address] [place] [address], [place] [address] 17 Apr, 2012 [facility] [address] [id number] [address] [place] [address], [place] [address] Apr, [facility] [address] [id number] [address] [place] [address], [place] [address] 18 Mar, 2012 [facility] [address] [id number] [address] [place] [address], [place] [address] 17 Mar, 2012 [facility] [address] [id number] [address] [place] [address], [place] [address] 07 Mar, 2012 [facility] [address] [id number] [address] [place] [address], [place] [address] 27 Feb, 2012 [facility] [address] [id number] [address] [place] [address], [place] [address] 16 Feb, 2012 [facility] [address] [id number] [address] [place] [address], [place] [address] 15 Feb, 2012 [facility] [address] [id number] [address] [place] [address], [place] [address] 14 Feb, 2012 [facility] [address] [id number] [address] [place] [address], [place] [address] Jan, [facility] [address] [id number] [address] [place] [address], [place] [address] Jan, [facility] [address] [id number] [address] [place] [address], [place] [address] Jan, [facility] [address] [id number] [address] [place] [address], [place] [address] Jan, [facility] [address] [id number] [address] [place] [address], [place] [address] Jan, [facility] [address] [id number] [address] [place] [address], [place] [address] Jan, [facility] [address] [id number] [address] [place] [address], [place] [address] Dec, [facility] [address] [id number] [address] [place] [address], [place] [address] Dec, [facility] [address] [id number] [address] [place] [address], [place] [address] Dec, [facility] [address] [id number] [address] [place] [address], [place] [address] November, [facility] [address] [id number] [address] [place] [address], [place] [address] November, [facility] [address] [id number] [address] [place] [address], [place] [address] November, [facility] [address] [id number] [address] [place] [address], [place] [address] November, [facility] [address] [id number] [address] [place] [address], [place] [address] Oct, [facility] [address] [id number] [address] [place] [address], [place] [address] Oct, [facility] [address] [id number] [address] [place] [address], [place] [address] Oct, [facility] [address] [id number] [address] [place] [address], [place] [address] Sep, [facility] [address] [id number] [address] [place] [address], [place] [address] Sep, [facility] [address] [id number] [address] [place] [address], [place] [address] Aug, [facility] [address] [id number] [address] [place] [address], [place] [address] Aug, [facility] [address] [id number] [address] [place] [address], [place] [address] Aug, [facility] [address] [id number] [address] [place] [address], [place] [address] Aug, [facility] [address] [id number] [address] [place] [address], [place] [address] Jul, [facility] [address] [id number] [address] [place] [address], [place] [address] Jul, [facility] [address] [id number] [address] [place] [address], [place] [address] Jul, [facility] [address] [id number] [address] [place] [address], [place] [address] Jul, [facility] [address] [id number] [address] [place] [address], [place] [address] Jul, [facility] [address] [id number] [address] [place] [address], [place] [address] Jul, [facility] [address] [id number] [address] [place] [address], [place] [address] Jul, [facility] [address] [id number] [address] [place] [address], [place] [address] Jul, [facility] [address] [id number] [address] [place] [address], [place] [address] Jun, [facility] [address] [id number] [address] [place] [address], [place] [address] Jun, [facility] [address] [id number] [address] [place] [address], [place] [address] 15 Jun, 2011 [facility] [address] [id number] [address] [place] [address], [place] [address] 08 Jun, 2011 [facility] [address] [id number] [address] [place] [address], [place] [address] 07 Jun, 2011 [facility] [address] [id number] [address] [place] [address], [place] [address] May, [facility] [address] [id number] [address] [place] [address], [place] [address] May, [facility] [address] [id number] [address] [place] [address], [place] [address] May, [facility] [address] [id number] [address] [place] [address], [place] [address] May, [facility] [address] [id number] [address] [place] [address], [place] [address] May, [facility] [address] [id number] [address] [place] [address], [place] [address] May, [facility] [address] [id number] [address] [place] [address], [place] [address] Apr, [facility] [address] [id number] [address] [place] [address], [place] [address] Apr, [facility] [address] [id number] [address] [place] [address], [place] [address] Apr, [facility] [address] [id number] [address] [place] [address], [place] [address] Feb, [facility] [address] [id number] [address] [place] [address], [place] [address] Feb, [facility] [address] [id number] [address] [place] [address], [place] [address] Oct, [facility] [address] [id number] [address] [place] [address], [place] [address] Jul, [facility] [address] [id number] [address] [place] [address] Jul, [facility] [address] [id number] [address] [place] [address] Jun, [facility] [address] [id number] [address] [place] [address] May, [facility] [address] [id number] [address] [place] [address] May, [facility] [address] [facility] [id number] [address] [place] [address] May, [facility] [address] [facility] [id number] [address] [place] [address] Apr, [facility] [address] [facility] [id number] [address] [place] [address] Jan, [facility] [address] [facility] [id number] [address] [place] [address] November, IMMUNIZATIONS No Known Immunizations SOCIAL HISTORY [...]
--- OUTSIDE RECORDS SUMMARY | 2020-01-31 09:41 | XMS REPORT ---
Author Author Ivet Knott Doctor Organization [facility] Address Unknown Phone Unavailable Care Team Providers Care Sales Manager [place] Name Role Phone Migration, Doctor Unavailable Unavailable PROBLEMS Type Condition ICD9-CM Code LQB69-WA Code Onset Dates Condition S tatus SNOMED Code Problem GERD (gastroesophageal reflux disease) K21.9 Active 938055304 Problem Osteoarthritis M19.90 Active 19728 5006 Problem Bilateral carotid artery disease I77.9 Active 579440563 Problem Secondary hyperparathyroidism, not elsewhere classified E21.1 Active 23090762 Problem Schizo affective schizophrenia F25.0 Active 672929758 Problem Acquired hypothyroidism E03.9 Active 278557232 Problem Essential hypertension I10 Active 57340283 Problem Stage 3 chronic kidney disease N18.3 Active 418806227 Problem Fibromyalgia M79.7 Active 9202263 05 Problem Vitamin D deficiency E55.9 Active 96185212 Problem Iron deficiency anemia, unspecified iron deficiency an emia type D50.9 Active 62222526 ALLERGIES No Information ENCOUNTERS Encounter Location Date Diagnosis [place] [address] [place] [id number] [place] [id number] 14 Oct, 2019 Lumbar radiculopathy M54.16 ; Fibromyalgia M79.7 ; Essential hypertension I10 and GERD (gastroesophageal reflux disease) K21.9 [place] [address] [place] [id number] [address] [place] [id number] 03 Oct, 2019 Osteoarthritis M19.90 [facility] [address] [facility] [id number] [address] [place] [phone] Sep, [place] [address] [facility] [id number] [address] [place] [address] Aug, Osteoarthritis M19.90 [facility] [address] [facility] [id number] [address] [place] [address] Jul, Osteoarthritis M19.90 [place] [address] [place] [id number] [address] [place] [address] Jun, Osteoarthritis M19.90 [facility] [address] [place] [id number] [address] [place] [address] Jun, Herpes zoster without compli cation B02.9 [facility] [address] [facility] [id number] [address] [place] [address] May, Osteoarthritis M19.90 [facility] [address] [address] May, [facility] [address] [place] [id number] [address] [place] [phone] Apr, [facility] [address] [address] Mar, Osteoarthritis M19.90 [facility] [address] [address] Mar, [facility] [address] [address] Feb, Lumbago with sciatica, left side M54.42 ; Lumbago with sciatica, right side M54.41 and Other chronic pain G89.29 [facility] [address] [place] [id number] [place] [phone] Feb, [facility] Z[facility].00 ; Schizo affective schizophrenia F25.0 ; Essential hypertension I10 ; GERD (gastroesophageal reflux disease) K21.9 ; Secondary hyperparathyroidism, not elsewhere classified E21.1 ; Idiopathic peripheral neuropathy G60.9 ; Stage 3 chronic kidney disease N18.3 ; Acquired hypothyroidism E03.9 ; Bilateral carotid artery disease I77.9 and Hypothyroidism E03.9 [facility] [address] [place] [id number] [address] [place] [address] Feb, Osteoarthritis M19.90 [facility] [address] [place] [id number] [address] [place] [address] Jan, Osteoarthritis M19.90 [facility] [address] [facility] [id number] [address] [place] [address] Jan, Osteoarthritis M19.90 [facility] [address] [facility] [id number] [address] [place] [phone] 04 Dec, 2018 Acquired hypothyroidism E03. 9 [facility] [address] [facility] [id number] [address] [place] [address] Dec, Fibromyalgia M79.7 ; Hypothy roidism E03.9 ; Essential hypertension I10 and Sensory loss R20.[id number] [place] [address] November, Osteoarthritis M19.90 [facility] [address] [facility] [id number] [address] [place] [phone] Oct, Osteoarthritis M19.90 [facility] [address] [facility] [id number] [address] [place] [address] Oct, Sore throat J02.9 and Acute nasopharyngitis J00 [facility] [address] [facility] [id number] [address] [place] [address] Sep, Osteoarthritis M19.90 [facility] [address] [facility] [id number] [address] [place] [address] Sep, Acute non-recurrent maxillar y sinusitis J01.00 [facility] [address] [facility] [id number] [address] [place] [address] Aug, Acute non-recurrent pansinus itis J01.40 [facility] [address] [facility] [id number] [address] [place] [address] Jul, Osteoarthritis M19.90 [facility] [address] [facility] [id number] [address] [place] [address] Jul, [facility] [address] [facility] [id number] [address] [place] [address] Apr, Osteoarthritis M19.90 [facility] [address] [place] [id number] [place] [address] Apr, Fibromyalgia M79.7 ; Essenti al hypertension I10 ; Encounter for immunization Z23 ; Stage 3 chronic kidney disease N18.3 and Depression F32.9 [facility] [address] [address] 12 Dec, 2017 Fibromyalgia M79.7 ; Osteoar thritis M19.90 and Encounter for medication management Z79.899 [facility] [address] [address] November, Nausea and vomiting, intract ability of vomiting not specified, unspecified vomiting type R11.2 and Dizziness R42 [facility] [address] [address] November, Fibromyalgia M79.7 [place] [address] [address] November, Medicare annual wellness vis it, initial Z00.00 ; Anxiety F41.9 ; Depression F32.9 ; Stage 3 chronic kidney disease N18.3 ; Fibromyalgia M79.7 ; Essential hypertension I10 ; Secondary hyperparathyroidism, not elsewhere classified E21.1 ; Osteoarthritis M19.90 ; Hypothyroidism E03.9 and Encounter for immunization Z23 [facility] [address] [place] [id number] [place] [address] Oct, [facility] [address] [address] Oct, Sebaceous cyst L72.3 [place] [address] [address] Sep, Low back pain, unspecified b ack pain laterality, unspecified chronicity, with sciatica presence unspecified M54.5 and Secondary hyperparathyroidism, not elsewhere classified E21.1 [place] [address] [address] Sep, Fibromyalgia M79.7 [place] [address] [address] Sep, Fibromyalgia M79.7 ; Plantar fasciitis, bilateral M72.2 ; Essential hypertension I10 ; Depression F32.9 and Epidermoid cyst L72.0 [facility] [address] [address] Jul, [facility] [address] [address] Jul, Fibromyalgia M79.7 ; Iron de ficiency anemia, unspecified iron deficiency anemia type D50.9 and Acute nasopharyngitis J00 [facility] [address] [address] Jun, Sore throat J02.9 and Acute serous otitis media of left ear, recurrence not specified H65.02 [place] [address] [address] Jun, Hypothyroidism E03.9 [place] [address] [address] Jun, [place] [address] [address] Jun, Hypothyroidism E03.9 ; Essen tial hypertension I10 and Osteoarthritis M19.90 [facility] [address] [address] May, [place] [address] [address] May, [place] [address] [address] Feb, [place] [address] [address] Feb, Leonela-menopausal N95.1 and To bacco use Z72.0 [place] [address] [address] Jan, [place] [address] [facility] [id number] [address] [place] [phone] Jan, Osteoarthritis M19.90 ; Bila teral carotid artery disease I77.9 ; Raynauds syndrome I73.00 ; Essential hypertension I10 ; Allergic rhinitis J30.9 ; Stage 3 chronic kidney disease N18.3 ; Fibromyalgia M79.7 ; Hypothyroidism E03.9 ; GERD (gastroesophageal reflux disease) K21.9 and Vitamin D deficiency E55.9 [place] [address] [facility] [id number] [address] [place] [address] Dec, Raynauds syndrome I73.00 ; P lantar fascial fibromatosis M72.2 ; Osteoarthritis M19.90 and Fibromyalgia M79.7 [place] [address] [place] [id number] [place] [address] Dec, [place] [address] [place] [id number] [place] [address] Dec, [place] [address] [place] [id number] [address] [place] [address] Oct, Function kidney decreased N2 8.9 [facility] [address] [id number] Oct, Dental examination Z01.20 [place] [address] [place] [id number] [address] [place] [phone] Oct, Essential hypertension I10 a nd Function kidney decreased N28.9 [facility] [id number] [place] [id number] Oct, Dental examination Z01.20 [facility] [address] [facility] [id number] [address] [place] [address] Oct, [place] [address] [facility] [id number] [address] [place] [address] Sep, Other specified disorders in volving the immune mechanism D89.89 and Schizo affective schizophrenia F25.0 [place] [address] [address] 21 Sep, 2016 Schizo affective schizophren ia F25.0 [facility] [address] [address] 16 Sep, 2016 Eustachian tube dysfunction, bilateral H69.83 [place] [address] [address] 15 Sep, 2016 [facility] [address] [address] 14 Sep, 2016 [facility] [address] [address] 14 Sep, 2016 [place] [address] [address] 13 Sep, 2016 Eustachian tube dysfunction, bilateral H69.83 [place] [address] [address] 09 Sep, 2016 Allergic rhinitis J30.9 ; Es sential hypertension I10 ; Hypothyroidism E03.9 and Schizo affective schizophrenia F25.0 [place] [address] [address] Jul, Eustachian tube dysfunction, bilateral H69.83 and Visit for TB skin test Z11.1 [facility] [address] [address] Jul, Subacute pansinusitis J01.40 [facility] [address] [address] Jun, Schizo affective schizophren ia F25.0 ; Depression F32.9 ; Allergic rhinitis J30.9 ; Raynauds syndrome I73.00 ; Essential hypertension I10 ; Slow transit constipation K59.01 ; GERD (gastroesophageal reflux disease) K21.9 ; Hypothyroidism E03.9 ; Nicotine addiction F17.200 ; Other viral agents as the cause of diseases classified elsewhere B97.89 ; Acute upper respiratory infection, unspecified J06.9 and Osteoarthritis M19.90 [place] [address] [address] 02 Jun, 2016 Allergic rhinitis J30.9 and GERD (gastroesophageal reflux disease) K21.9 [place] [address] [place] [id number] [address] [place] [address] 18 May, 2016 [place] [address] [address] 27 Mar, 2016 Schizo affective schizophren ia F25.0 [place] [address] [place] [id number] [place] [address] 22 Mar, 2016 Schizo affective schizophren ia F25.0 [place] [address] [place] [id number] [place] [address] 15 Mar, 2016 Schizo affective schizophren ia F25.0 [place] [address] [address] Mar, Acute non-recurrent maxillar y sinusitis J01.00 [place] [address] [address] Feb, Schizo affective schizophren ia F25.0 [place] [address] [address] Feb, Contact dermatitis and eczem a L25.9 [place] [address] [address] Jan, [place] [address] [address] Jan, Schizo affective schizophren ia F25.0 ; Slow transit constipation K59.01 ; Essential hypertension I10 ; GERD (gastroesophageal reflux disease) K21.9 ; Hypothyroidism E03.9 ; Osteoarthritis M19.90 ; Low back pain, unspecified back pain laterality, unspecified chronicity, with sciatica presence unspecified M54.5 and Bilateral carotid artery disease I77.9 [place] [address] [address] Oct, [place] [address] [address] Sep, Hypothyroid E03.9 [place] [address] [address] Sep, Schizo affective schizophren ia F25.0 ; Depression F32.9 ; Anxiety F41.9 ; Allergic rhinitis J30.9 ; Raynauds syndrome I73.00 ; Insomnia G47.00 ; Essential hypertension I10 ; GERD (gastroesophageal reflux disease) K21.9 ; Hypothyroidism E03.9 and Vitamin D deficiency E55.9 [place] [address] [address] Sep, [place] [address] [address] Sep, [place] [address] [address] Aug, Allergic rhinitis J30.9 ; De pression F32.9 ; Anxiety F41.9 ; Raynauds syndrome I73.00 ; Insomnia G47.00 and GERD (gastroesophageal reflux disease) K21.9 [place] [address] [address] Aug, MONICA (secretory otitis media) H65.90 and Raynauds syndrome I73.00 [facility] [address] [address] Jul, Acute otitis externa of both ears, unspecified type H60.503 [place] [address] [address] Jun, [place] [address] [address] Jun, Essential hypertension I10 ; Allergic rhinitis J30.9 ; Hypothyroidism E03.9 and Osteoarthritis M19.90 [place] [address] [address] Jun, Routine adult health mainten ance Z00.00 ; Hypothyroidism E03.9 ; Essential hypertension I10 ; Insomnia G47.00 ; Nicotine addiction F17.200 ; Raynauds syndrome I73.00 ; GERD (gastroesophageal reflux disease) K21.9 ; Allergic rhinitis J30.9 ; Anxiety F41.9 ; Depression F32.9 and Schizo affective schizophrenia F25.0 [facility] [address] [address] May, Upper respiratory tract infe ction, unspecified type J06.9 [facility] [address] [address] Mar, [facility] [id number] [place], [facility] [id number] Mar, [facility] [address] [address] Mar, [facility] [address] [address] Mar, [facility] [address] [address] Feb, Jaw pain 784.92 and Environm ental and seasonal allergies 477.8 [facility] [address] [address] Feb, [facility] [address] [address] Oct, [facility] [address] [address] Oct, [facility] [address] [address] Oct, [facility] [address] [address] Oct, [facility] [address] [address] Sep, [facility] [address] [id number] [address] [place] [address], [place] [address] Sep, [facility] [address] [id number] [address] [place] [address], [place] [address] Jul, [facility] [address] [id number] [address] [place] [address], [place] [address] Jul, [facility] [address] [id number] [address] [place] [address], [place] [address] Jul, [facility] [address] [id number] [address] [place] [address], [place] [address] Jul, [facility] [address] [id number] [address] [place] [address], [place] [address] Jul, [facility] [address] [id number] [address] [place] [address], [place] [address] Jul, [facility] [address] [id number] [address] [place] [address], [place] [address] Jul, [facility] [address] [id number] [address] [place] [address], [place] [address] Jun, [facility] [address] [id number] [address] [place] [address], [place] [address] 31 Jun, 2014 [facility] [address] [id number] [address] [place] [address], [place] [address] 22 Jun, 2014 [facility] [address] [id number] [address] [place] [address], [place] [address] 18 Jun, 2014 [facility] [address] [id number] [address] [place] [address], [place] [address] 17 Jun, 2014 [facility] [address] [id number] [address] [place] [address], [place] [address] 17 Jun, 2014 [facility] [address] [id number] [address] [place] [address], [place] [address] 16 Jun, 2014 [facility] [address] [id number] [address] [place] [address], [place] [address] 16 Jun, 2014 [facility] [address] [id number] [address] [place] [address], [place] [address] Apr, [facility] [address] [id number] [address] [place] [address], [place] [address] Apr, [facility] [address] [id number] [address] [place] [address], [place] [address] 17 Mar, 2014 [facility] [address] [id number] [address] [place] [address], [place] [address] 17 Mar, 2014 [facility] [address] [id number] [address] [place] [address], [place] [address] Mar, [facility] [address] [id number] [address] [place] [address], [place] [address] Mar, [facility] [address] [id number] [address] [place] [address], [place] [address] Jan, [facility] [address] [id number] [address] [place] [address], [place] [address] Jan, [facility] [address] [id number] [address] [place] [address], [place] [address] Oct, [facility] [address] [id number] [address] [place] [address], [place] [address] Oct, [facility] [address] [id number] [address] [place] [address], [place] [address] Sep, [facility] [address] [id number] [address] [place] [address], [place] [address] Sep, [facility] [address] [id number] [address] [place] [address], [place] [address] Sep, [facility] [address] [id number] [address] [place] [address], [place] [address] Sep, [facility] [address] [id number] [address] [place] [address], [place] [address] Sep, [facility] [address] [id number] [address] [place] [address], [place] [address] Sep, [facility] [address] [id number] [address] [place] [address], [place] [address] Aug, [facility] [address] [id number] [address] [place] [address], [place] [address] Aug, [facility] [address] [id number] [address] [place] [address], [place] [address] Jul, [facility] [address] [id number] [address] [place] [address], [place] [address] Jul, [facility] [address] [id number] [address] [place] [address], [place] [address] Jul, [facility] [address] [id number] [address] [place] [address], [place] [address] Jul, [facility] [address] [id number] [address] [place] [address], [place] [address] Jun, [facility] [address] [id number] [address] [place] [address], [place] [address] Jun, [facility] [address] [id number] [address] [place] [address], [place] [address] May, [facility] [address] [id number] [address] [place] [address] May, [facility] [address] [id number] [address] [place] [address] Apr, [facility] [address] [id number] [address] [place] [address], [place] [address] Apr, [facility] [address] [id number] [address] [place] [address], [place] [address] Apr, [facility] [address] [id number] [address] [place] [address], [place] [address] Apr, [facility] [address] [id number] [address] [place] [address], [place] [address] Apr, [facility] [address] [id number] [address] [place] [address], [place] [address] Apr, [facility] [address] [id number] [address] [place] [address], [place] [address] 24 Mar, 2013 [facility] [address] [id number] [address] [place] [address], [place] [address] 12 Mar, 2012 [facility] [address] [id number] [address] [place] [address], [place] [address] 09 Mar, 2013 [facility] [address] [id number] [address] [place] [address], [place] [address] 05 Mar, 2013 [facility] [address] [id number] [address] [place] [address], [place] [address] 05 Mar, 2013 [facility] [address] [id number] [address] [place] [address], [place] [id number] 30 Feb, 2013 [facility] [address] [id number] [address] [place] [address], [place] [id number] Feb, [facility] [address] [id number] [address] [place] [address], [place] [id number] Feb, [facility] [address] [id number] [address] [place] [address], [place] [id number] Feb, [facility] [address] [id number] [address] [place] [address], [place] [address] Jan, [facility] [address] [id number] [address] [place] [address], [place] [id number] 17 Jan, 2013 [facility] [address] [id number] [address] [place] [address], [place] [id number] 16 Jan, 2013 [facility] [address] [id number] [address] [place] [address], [place] [id number] Jan, [facility] [address] [id number] [address] [place] [address], [place] [address] Jan, [facility] [address] [id number] [address] [place] [address], [place] [address] Jan, [facility] [address] [id number] [address] [place] [address], [place] [id number] Dec, [facility] [address] [id number] [address] [place] [address], [place] [id number] Dec, [facility] [address] [id number] [address] [place] [address], [place] [address] Dec, [facility] [address] [id number] [address] [place] [address], [place] [id number] 14 Dec, 2012 [facility] [address] [id number] [address] [place] [address], [place] [address] Dec, [facility] [address] [id number] [address] [place] [address], [place] [address] Dec, [facility] [address] [id number] [address] [place] [address], [place] [address] Dec, [facility] [address] [id number] [address] [place] [address], [place] [id number] Dec, [facility] [address] [id number] [address] [place] [address], [place] [address] Dec, [facility] [address] [id number] [address] [place] [address], [place] [address] Dec, [facility] [address] [id number] [address] [place] [address], [place] [address] November, [facility] [address] [id number] [address] [place] [address], [place] [address] November, [facility] [address] [id number] [address] [place] [address], [place] [address] November, [facility] [address] [id number] [address] [place] [address], [place] [address] November, [facility] [address] [id number] [address] [place] [address] November, [facility] [address] [id number] [address] [place] [address], [place] [address] Oct, [facility] [address] [id number] [address] [place] [address], [place] [address] Oct, [facility] [address] [id number] [address] [place] [address], [place] [address] Oct, [facility] [address] [id number] [address] [place] [address], [place] [address] Oct, [facility] [address] [id number] [address] [place] [address], [place] [address] Oct, [facility] [address] [id number] [address] [place] [address], [place] [address] Sep, [facility] [address] [id number] [address] [place] [address], [place] [address] Sep, [facility] [address] [id number] [address] [place] [address], [place] [address] Sep, [facility] [address] [id number] [address] [place] [address], [place] [address] 05 Sep, 2012 [facility] [address] [id number] [address] [place] [address], [place] [address] 26 Aug, 2012 [facility] [address] [id number] [address] [place] [address], [place] [address] Aug, [facility] [address] [id number] [address] [place] [address], [place] [address] Aug, [facility] [address] [id number] [address] [place] [address], [place] [address] 15 Aug, 2012 [facility] [address] [id number] [address] [place] [address], [place] [address] Jun, [facility] [address] [id number] [address] [place] [address], [place] [address] Jun, [facility] [address] [id number] [address] [place] [address], [place] [address] 12 Jun, 2012 [facility] [address] [id number] [address] [place] [address], [place] [address] Jun, [facility] [address] [id number] [address] [place] [address], [place] [address] 06 Jun, 2012 [facility] [address] [id number] [address] [place] [address], [place] [address] 06 Jun, 2012 [facility] [address] [id number] [address] [place] [address], [place] [address] Jun, [facility] [address] [id number] [address] [place] [address], [place] [address] Jun, [facility] [address] [id number] [address] [place] [address], [place] [address] Jun, [facility] [address] [id number] [address] [place] [address], [place] [address] Jun, [facility] [address] [id number] [address] [place] [address], [place] [address] 28 May, 2012 [facility] [address] [id number] [address] [place] [address], [place] [address] 27 May, 2012 [facility] [address] [id number] [address] [place] [address], [place] [address] 27 May, 2012 [facility] [address] [id number] [address] [place] [address], [place] [address] 26 May, 2012 [facility] [address] [id number] [address] [place] [address], [place] [address] 26 May, 2012 [facility] [address] [id number] [address] [place] [address], [place] [address] 16 May, 2012 [facility] [address] [id number] [address] [place] [address], [place] [address] 16 May, 2012 [facility] [address] [id number] [address] [place] [address], [place] [address] 14 May, 2012 [facility] [address] [id number] [address] [place] [address], [place] [address] 14 May, 2012 [facility] [address] [id number] [address] [place] [address], [place] [address] 30 Apr, 2012 [facility] [address] [id number] [address] [place] [address], [place] [address] 30 Apr, 2012 [facility] [address] [id number] [address] [place] [address], [place] [address] Apr, [facility] [address] [id number] [address] [place] [address], [place] [address] Apr, [facility] [address] [id number] [address] [place] [address], [place] [address] Apr, [facility] [address] [id number] [address] [place] [address], [place] [address] 18 Mar, 2012 [facility] [address] [id number] [address] [place] [address], [place] [address] 17 Mar, 2012 [facility] [address] [id number] [address] [place] [address], [place] [address] 07 Mar, 2012 [facility] [address] [id number] [address] [place] [address], [place] [address] 27 Feb, 2012 [facility] [address] [id number] [address] [place] [address], [place] [address] 16 Feb, 2012 [facility] [address] [id number] [address] [place] [address] 15 Feb, 2012 [facility] [address] [id number] [address] [place] [address], [place] [address] Feb, [facility] [address] [id number] [address] [place] [address], [place] [address] Jan, [facility] [address] [id number] [address] [place] [address], [place] [address] Jan, [facility] [address] [id number] [address] [place] [address], [place] [address] Jan, [facility] [address] [id number] [address] [place] [address], [place] [address] Jan, [facility] [address] [id number] [address] [place] [address], [place] [address] Jan, [facility] [address] [id number] [address] [place] [address], [place] [address] Jan, [facility] [address] [id number] [address] [place] [address], [place] [address] Dec, [facility] [address] [id number] [address] [place] [address], [place] [address] Dec, [facility] [address] [id number] [address] [place] [address], [place] [address] Dec, [facility] [address] [id number] [address] [place] [address], [place] [address] November, [facility] [address] [id number] [address] [place] [address], [place] [address] November, [facility] [address] [id number] [address] [place] [address], [place] [address] November, [facility] [address] [id number] [address] [place] [address], [place] [address] November, [facility] [address] [id number] [address] [place] [address], [place] [address] Oct, [facility] [address] [id number] [address] [place] [address], [place] [address] Oct, [facility] [address] [id number] [address] [place] [address], [place] [address] Oct, [facility] [address] [id number] [address] [place] [address], [place] [address] Sep, [facility] [address] [id number] [address] [place] [address], [place] [address] Sep, [facility] [address] [id number] [address] [place] [address], [place] [address] Aug, [facility] [address] [id number] [address] [place] [address], [place] [address] Aug, [facility] [address] [id number] [address] [place] [address], [place] [address] Aug, [facility] [address] [id number] [address] [place] [address], [place] [address] Aug, [facility] [address] [id number] [address] [place] [address], [place] [address] Jul, [facility] [address] [id number] [address] [place] [address], [place] [address] Jul, [facility] [address] [id number] [address] [place] [address], [place] [address] Jul, [facility] [address] [id number] [address] [place] [address], [place] [address] Jul, [facility] [address] [id number] [address] [place] [address], [place] [address] Jul, [facility] [address] [id number] [address] [place] [address], [place] [address] Jul, [facility] [address] [id number] [address] [place] [address], [place] [address] Jul, [facility] [address] [id number] [address] [place] [address], [place] [address] Jul, [facility] [address] [id number] [address] [place] [address], [place] [address] Jun, [facility] [address] [id number] [address] [place] [address], [place] [address] Jun, [facility] [address] [id number] [address] [place] [address], [place] [address] Jun, [facility] [address] [id number] [address] [place] [address], [place] [address] 08 Jun, 2011 [facility] [address] [id number] [address] [place] [address], [place] [address] 07 Jun, 2011 [facility] [address] [id number] [address] [place] [address], [place] [address] May, [facility] [address] [id number] [address] [place] [address], [place] [address] May, [facility] [address] [id number] [address] [place] [address], [place] [address] 17 May, 2011 [facility] [address] [id number] [address] [place] [address], [place] [address] 15 May, 2011 [facility] [address] [id number] [address] [place] [address], [place] [address] May, [facility] [address] [id number] [address] [place] [address], [place] [address] May, [facility] [address] [id number] [address] [place] [address], [place] [address] Apr, [facility] [address] [id number] [address] [place] [address], [place] [address] Apr, [facility] [address] [id number] [address] [place] [address], [place] [address] Apr, [facility] [address] [id number] [address] [place] [address], [place] [address] Feb, [facility] [address] [id number] [address] [place] [address], [place] [address] Feb, [facility] [address] [id number] [address] [place] [address], [place] [address] Oct, [facility] [address] [id number] [address] [place] [address], [place] [address] Jul, [facility] [address] [id number] [address] [place] [address], [place] [address] Jul, [facility] [address] [id number] [address] [place] [id number] Jun, [facility] [address] [id number] [address] [place] [address] May, [facility] [address] [id number] [address] [place] [address] May, [facility] [address] [id number] [address] [place] [address] May, [facility] [address] [id number] [address] [place] [address] Apr, [facility] [address] [id number] [address] [place] [address] Jan, [facility] [address] [facility] [id number] [address] [place] [id number] November, IMMUNIZATIONS No Known Immunizations SOCIAL HISTORY Never Assessed REASON FOR VISIT PLAN OF CARE VITAL SIGNS Height 70 in 2011-12-31 Weight 213.31 lbs 2011-12-31 Heart Rate 88 bpm 2011-12-31 Blood pressure systolic 142 mmHg 2011-12-31 Blood pressure diastolic 78 mmHg 2011-12-31 MEDICATIONS No Known Medications RESULTS No Results [...]
--- OUTSIDE RECORDS SUMMARY | 2020-01-31 09:42 | XMS REPORT ---
Author Author Ivet TURNER [facility] Address [address] [place] [address] Care Team Providers Care Institution Director Name Role Phone QUYEN TURNER Unavailable PROBLEMS Type Condition ICD9-CM Code FJL56-CB Code Onset Dates Condition S tatus SNOMED Code Problem Hypothyroidism E03.9 Active 24172 008 Problem GERD (gastroesophageal reflux disease) K21.9 Active 754839517 Problem Essential hypertension I10 Active 11299373 Problem Anxiety F41.9 Active 80706771 Problem Osteoarthritis M19.90 Active 97381 5006 Problem Schizo affective schizophrenia F25.0 Active 507231896 Problem Bilateral carotid artery disease I77.9 Active 692524658 Problem Low back pain, unspecified b ack pain laterality, unspecified chronicity, with sciatica presence unspecified M54.5 Active 186055992 Problem Vitamin D deficiency E55.9 Active 61035284 Problem Iron deficiency anemia, unspecified iron deficiency an emia type D50.9 Active 21298984 Problem Secondary hyperparathyroidism, not elsewhere classified E21.1 Active 96713830 Problem Lumbago with sciatica, right side M54.41 Active [id number] Problem Fibromyalgia M79.7 Active 9782253 05 Problem Other chronic pain G89.29 Active 8 8919055 Problem Stage 3 chronic kidney disease N18.3 Active 622628608 Problem Depression F32.9 Active 28364419 Problem Sensory loss R20.0 Active 3021161 9 Problem Idiopathic peripheral neuropathy G60.9 Active 56025019 Problem Acquired hypothyroidism E03.9 Active 052880575 Problem Lumbago with sciatica, left side M54.42 Active 585443667 ALLERGIES No Information ENCOUNTERS Encounter Location Date Diagnosis [facility] [address] [facility] [id number] [address] [place] [id number] Oct, Osteoarthritis M19.90 [facility] [address] [facility] [id number] [address] [place] [address] Sep, [facility] [address] [facility] [id number] [address] [place] [address] Aug, Osteoarthritis M19.90 [facility] [address] [facility] [id number] [address] [place] [address] Jul, Osteoarthritis M19.90 [facility] [address] [place] [id number] [address] [place] [address] Jun, Osteoarthritis M19.90 [facility] [address] [place] [id number] [address] [place] [id number] Jun, Herpes zoster without compli cation B02.9 [facility] [address] [place] [id number] [address] [place] [address] May, Osteoarthritis M19.90 [facility] [address] [place] [id number] [address] [place] [address] May, [facility] [address] [place] [id number] [address] [place] [id number] Apr, [place] [address] [address] Mar, Osteoarthritis M19.90 [facility] [address] [place] [id number] [address] [place] [phone] Mar, [facility] [address] [place] [id number] [place] [address] Feb, Lumbago with sciatica, left side M54.42 ; Lumbago with sciatica, right side M54.41 and Other chronic pain G89.29 [place] [address] [place] [id number] [place] [address] Feb, Encounter for Medicare annua l wellness exam Z00.00 ; Schizo affective schizophrenia F25.0 ; Essential hypertension I10 ; GERD (gastroesophageal reflux disease) K21.9 ; Secondary hyperparathyroidism, not elsewhere classified E21.1 ; Idiopathic peripheral neuropathy G60.9 ; Stage 3 chronic kidney disease N18.3 ; Acquired hypothyroidism E03.9 ; Bilateral carotid artery disease I77.9 and Hypothyroidism E03.9 [facility] [address] [facility] [id number] [address] [place] [id number] Feb, Osteoarthritis M19.90 [facility] [address] [facility] [id number] [address] [place] [address] Jan, Osteoarthritis M19.90 [facility] [address] [facility] [id number] [address] [place] [id number] Jan, Osteoarthritis M19.90 [facility] [address] [facility] [id number] [address] [place] [id number] Dec, Acquired hypothyroidism E03. 9 [facility] [address] [facility] [id number] [address] [place] [id number] Dec, Fibromyalgia M79.7 ; Hypothy roidism E03.9 ; Essential hypertension I10 and Sensory loss R20.[id number] [place] [address] November, Osteoarthritis M19.90 [facility] [address] [place] [id number] [address] [place] [id number] Oct, Osteoarthritis M19.90 [facility] [address] [place] [id number] [address] [place] [id number] Oct, Sore throat J02.9 and Acute nasopharyngitis J00 [facility] [address] [facility] [id number] [address] [place] [id number] Sep, Osteoarthritis M19.90 [facility] [address] [facility] [id number] [address] [place] [address] Sep, Acute non-recurrent maxillar y sinusitis J01.00 [facility] [address] [facility] [id number] [address] [place] [address] Aug, Acute non-recurrent pansinus itis J01.40 [facility] [address] [address] Jul, Osteoarthritis M19.90 [facility] [address] [address] Jul, [facility] [address] [address] Apr, Osteoarthritis M19.90 [place] [address] [address] Apr, Fibromyalgia M79.7 ; Essenti al hypertension I10 ; Encounter for immunization Z23 ; Stage 3 chronic kidney disease N18.3 and Depression F32.9 [place] [address] [address] Dec, Fibromyalgia M79.7 ; Osteoar thritis M19.90 and Encounter for medication management Z79.899 [facility] [address] [address] November, Nausea and vomiting, intract ability of vomiting not specified, unspecified vomiting type R11.2 and Dizziness R42 [place] [address] [address] November, Fibromyalgia M79.7 [place] [address] [address] November, Medicare annual wellness vis it, initial Z00.00 ; Anxiety F41.9 ; Depression F32.9 ; Stage 3 chronic kidney disease N18.3 ; Fibromyalgia M79.7 ; Essential hypertension I10 ; Secondary hyperparathyroidism, not elsewhere classified E21.1 ; Osteoarthritis M19.90 ; Hypothyroidism E03.9 and Encounter for immunization Z23 [facility] [address] [address] Oct, [place] [address] [address] Oct, Sebaceous cyst L72.3 [place] [address] [address] 27 Sep, 2017 Low back pain, unspecified b ack pain laterality, unspecified chronicity, with sciatica presence unspecified M54.5 and Secondary hyperparathyroidism, not elsewhere classified E21.1 [facility] [address] [address] Sep, Fibromyalgia M79.7 [facility] [address] [address] 05 Sep, 2017 Fibromyalgia M79.7 ; Plantar fasciitis, bilateral M72.2 ; Essential hypertension I10 ; Depression F32.9 and Epidermoid cyst L72.0 [place] [address] [address] Jul, [place] [address] [address] Jul, Fibromyalgia M79.7 ; Iron de ficiency anemia, unspecified iron deficiency anemia type D50.9 and Acute nasopharyngitis J00 [facility] [address] [address] Jun, Sore throat J02.9 and Acute serous otitis media of left ear, recurrence not specified H65.02 [place] [address] [address] Jun, Hypothyroidism E03.9 [place] [address] [address] Jun, [place] [address] [address] Jun, Hypothyroidism E03.9 ; Essen tial hypertension I10 and Osteoarthritis M19.90 [facility] [address] [address] 16 May, 2017 [facility] [address] [address] May, [place] [address] [address] Feb, [place] [address] [address] Feb, Leonela-menopausal N95.1 and To bacco use Z72.0 [place] [address] [address] Jan, [place] [address] [address] Jan, Osteoarthritis M19.90 ; Bila teral carotid artery disease I77.9 ; Raynauds syndrome I73.00 ; Essential hypertension I10 ; Allergic rhinitis J30.9 ; Stage 3 chronic kidney disease N18.3 ; Fibromyalgia M79.7 ; Hypothyroidism E03.9 ; GERD (gastroesophageal reflux disease) K21.9 and Vitamin D deficiency E55.9 [place] [address] [address] Dec, Raynauds syndrome I73.00 ; P lantar fascial fibromatosis M72.2 ; Osteoarthritis M19.90 and Fibromyalgia M79.7 [place] [address] [address] Dec, [place] [address] [address] Dec, [place] [address] [address] Oct, Function kidney decreased N2 8.9 [facility] [address] [place] [id number] Oct, Dental examination Z01.20 [place] [address] [address] Oct, Essential hypertension I10 a nd Function kidney decreased N28.9 [facility] [id number] [place] [id number] Oct, Dental examination Z01.20 [facility] [address] [facility] [id number] [address] [place] [phone] Oct, [facility] [address] [facility] [id number] [address] [place] [address] 24 Sep, 2016 Other specified disorders in volving the immune mechanism D89.89 and Schizo affective schizophrenia F25.0 [facility] [address] [facility] [id number] [address] [place] [id number] 21 Sep, 2016 Schizo affective schizophren ia F25.0 [facility] [address] [facility] [id number] [address] [place] [id number] 16 Sep, 2016 Eustachian tube dysfunction, bilateral H69.83 [facility] [address] [facility] [id number] [address] [place] [id number] 15 Sep, 2016 [facility] [address] [facility] [id number] [address] [place] [address] 14 Sep, 2016 [facility] [address] [facility] [id number] [address] [place] [address] 14 Sep, 2016 [facility] [address] [facility] [id number] [address] [place] [address] 13 Sep, 2016 Eustachian tube dysfunction, bilateral H69.83 [facility] [address] [facility] [id number] [address] [place] [address] 09 Sep, 2016 Allergic rhinitis J30.9 ; Es sential hypertension I10 ; Hypothyroidism E03.9 and Schizo affective schizophrenia F25.0 [facility] [address] [facility] [id number] [address] [place] [address] Jul, Eustachian tube dysfunction, bilateral H69.83 and Visit for TB skin test Z11.1 [facility] [address] [facility] [id number] [address] [place] [address] Jul, Subacute pansinusitis J01.40 [facility] [address] [facility] [id number] [address] [place] [address] Jun, Schizo affective schizophren ia F25.0 ; Depression F32.9 ; Allergic rhinitis J30.9 ; Raynauds syndrome I73.00 ; Essential hypertension I10 ; Slow transit constipation K59.01 ; GERD (gastroesophageal reflux disease) K21.9 ; Hypothyroidism E03.9 ; Nicotine addiction F17.200 ; Other viral agents as the cause of diseases classified elsewhere B97.89 ; Acute upper respiratory infection, unspecified J06.9 and Osteoarthritis M19.90 [place] [address] [address] Jun, Allergic rhinitis J30.9 and GERD (gastroesophageal reflux disease) K21.9 [place] [address] [address] May, [place] [address] [address] Mar, Schizo affective schizophren ia F25.0 [place] [address] [address] Mar, Schizo affective schizophren ia F25.0 [place] [address] [address] Mar, Schizo affective schizophren ia F25.0 [place] [address] [address] Mar, Acute non-recurrent maxillar y sinusitis J01.00 [place] [address] [address] Feb, Schizo affective schizophren ia F25.0 [place] [address] [address] Feb, Contact dermatitis and eczem a L25.9 [place] [address] [address] Jan, [place] [address] [address] Jan, Schizo affective schizophren ia F25.0 ; Slow transit constipation K59.01 ; Essential hypertension I10 ; GERD (gastroesophageal reflux disease) K21.9 ; Hypothyroidism E03.9 ; Osteoarthritis M19.90 ; Low back pain, unspecified back pain laterality, unspecified chronicity, with sciatica presence unspecified M54.5 and Bilateral carotid artery disease I77.9 [place] [id number] [place] [id number] [address] [place] [address] Oct, [facility] [address] [address] Sep, Hypothyroid E03.9 [place] [address] [address] Sep, Schizo affective schizophren ia F25.0 ; Depression F32.9 ; Anxiety F41.9 ; Allergic rhinitis J30.9 ; Raynauds syndrome I73.00 ; Insomnia G47.00 ; Essential hypertension I10 ; GERD (gastroesophageal reflux disease) K21.9 ; Hypothyroidism E03.9 and Vitamin D deficiency E55.9 [facility] [address] [place] [id number] [address] [place] [address] Sep, [place] [address] [address] Sep, [place] [address] [address] Aug, Allergic rhinitis J30.9 ; De pression F32.9 ; Anxiety F41.9 ; Raynauds syndrome I73.00 ; Insomnia G47.00 and GERD (gastroesophageal reflux disease) K21.9 [facility] [address] [place] [id number] [address] [place] [address] Aug, MONICA (secretory otitis media) H65.90 and Raynauds syndrome I73.00 [facility] [address] [place] [address] Jul, Acute otitis externa of both ears, unspecified type H60.503 [facility] [address] [place] [address] Jun, [facility] [address] [place] [id number] [address] [place] [address] Jun, Essential hypertension I10 ; Allergic rhinitis J30.9 ; Hypothyroidism E03.9 and Osteoarthritis M19.90 [facility] [address] [place] [id number] [address] [place] [address] Jun, Routine adult health mainten ance Z00.00 ; Hypothyroidism E03.9 ; Essential hypertension I10 ; Insomnia G47.00 ; Nicotine addiction F17.200 ; Raynauds syndrome I73.00 ; GERD (gastroesophageal reflux disease) K21.9 ; Allergic rhinitis J30.9 ; Anxiety F41.9 ; Depression F32.9 and Schizo affective schizophrenia F25.0 [place] [address] [place] [address] May, Upper respiratory tract infe ction, unspecified type J06.9 [facility] [address] [place] [address] Mar, [facility] [address] [place] [id number] [place] [id number] Mar, [facility] [address] [place] [id number] [address] [place] [address] Mar, [facility] [address] [place] [address] Mar, [facility] [address] [place] [address] Feb, Jaw pain 784.92 and Environm ental and seasonal allergies 477.8 [facility] [address] [place] [id number] [address] [place] [address] Feb, [facility] [address] [place] [id number] [address] [place] [id number] Oct, [facility] [address] [id number] [address] [place] [address], [place] [address] 28 Oct, 2014 [facility] [address] [id number] [address] [place] [address], [place] [address] 14 Oct, 2014 [facility] [address] [id number] [address] [place] [address], [place] [address] Oct, [facility] [address] [id number] [address] [place] [address], [place] [address] Sep, [facility] [address] [id number] [address] [place] [address], [place] [address] Sep, [facility] [address] [id number] [address] [place] [address], [place] [address] Jul, [facility] [address] [id number] [address] [place] [address], [place] [address] Jul, [facility] [address] [id number] [address] [place] [address], [place] [address] Jul, [facility] [address] [id number] [address] [place] [address], [place] [address] Jul, [facility] [address] [id number] [address] [place] [address], [place] [address] Jul, [facility] [address] [id number] [address] [place] [address], [place] [address] Jul, [facility] [address] [id number] [address] [place] [address], [place] [address] Jul, [facility] [address] [id number] [address] [place] [address], [place] [address] Jun, [facility] [address] [id number] [address] [place] [address], [place] [address] Jun, [facility] [address] [id number] [address] [place] [address], [place] [address] Jun, [facility] [address] [id number] [address] [place] [address], [place] [address] Jun, [facility] [address] [id number] [address] [place] [address], [place] [address] Jun, [facility] [address] [id number] [address] [place] [address], [place] [address] Jun, [facility] [address] [id number] [address] [place] [address], [place] [address] Jun, [facility] [address] [id number] [address] [place] [address], [place] [address] Jun, [facility] [address] [id number] [address] [place] [address], [place] [address] Apr, [facility] [address] [id number] [address] [place] [address], [place] [address] Apr, [facility] [address] [id number] [address] [place] [address], [place] [address] Mar, [facility] [address] [id number] [address] [place] [address], [place] [address] Mar, [facility] [address] [id number] [address] [place] [address], [place] [address] Mar, [facility] [address] [id number] [address] [place] [address], [place] [address] Mar, [facility] [address] [id number] [address] [place] [address], [place] [address] Jan, [facility] [address] [id number] [address] [place] [address], [place] [address] Jan, [facility] [address] [id number] [address] [place] [address], [place] [address] Oct, [facility] [address] [id number] [address] [place] [address], [place] [address] Oct, [facility] [address] [id number] [address] [place] [address], [place] [address] Sep, [facility] [address] [id number] [address] [place] [id number] Sep, [facility] [address] [id number] [address] [place] [address], [place] [address] Sep, [facility] [address] [id number] [address] [place] [address], [place] [address] Sep, [facility] [address] [id number] [address] [place] [address], [place] [address] Sep, [facility] [address] [id number] [address] [place] [address], [place] [address] Sep, [facility] [address] [id number] [address] [place] [address], [place] [address] Aug, [facility] [address] [id number] [address] [place] [address], [place] [address] Aug, [facility] [address] [id number] [address] [place] [address], [place] [address] Jul, [facility] [address] [id number] [address] [place] [address], [place] [address] Jul, [facility] [address] [id number] [address] [place] [address], [place] [address] Jul, [facility] [address] [id number] [address] [place] [address], [place] [address] Jul, [facility] [address] [id number] [address] [place] [address], [place] [address] Jun, [facility] [address] [id number] [address] [place] [id number] Jun, [facility] [address] [id number] [address] [place] [address], [place] [address] May, [facility] [address] [id number] [address] [place] [address], [place] [address] May, [facility] [address] [id number] [address] [place] [address], [place] [address] Apr, [facility] [address] [id number] [address] [place] [address], [place] [address] Apr, [facility] [address] [id number] [address] [place] [address], [place] [address] Apr, [facility] [address] [id number] [address] [place] [address], [place] [address] Apr, [facility] [address] [id number] [address] [place] [address], [place] [address] Apr, [facility] [address] [id number] [address] [place] [address], [place] [address] Apr, [facility] [address] [id number] [address] [place] [address], [place] [address] Mar, [facility] [address] [id number] [address] [place] [address], [place] [address] Mar, [facility] [address] [id number] [address] [place] [address], [place] [address] Mar, [facility] [address] [id number] [address] [place] [address], [place] [address] Mar, [facility] [address] [id number] [address] [place] [address], [place] [address] Mar, [facility] [address] [id number] [address] [place] [address], [place] [address] Feb, [facility] [address] [id number] [address] [place] [address], [place] [address] Feb, [facility] [address] [id number] [address] [place] [address], [place] [address] Feb, [facility] [address] [id number] [address] [place] [address], [place] [address] Feb, [facility] [address] [id number] [address] [place] [address], [place] [address] Jan, [facility] [address] [id number] [address] [place] [address], [place] [address] 17 Jan, 2013 [facility] [address] [id number] [address] [place] [address], [place] [address] 16 Jan, 2013 [facility] [address] [id number] [address] [place] [address], [place] [address] Jan, [facility] [address] [id number] [address] [place] [address], [place] [address] Jan, [facility] [address] [id number] [address] [place] [address], [place] [address] Jan, [facility] [address] [id number] [address] [place] [address], [place] [address] Dec, [facility] [address] [id number] [address] [place] [address], [place] [address] 25 Dec, 2012 [facility] [address] [id number] [address] [place] [address], [place] [address] Dec, [facility] [address] [id number] [address] [place] [address], [place] [address] 14 Dec, 2012 [facility] [address] [id number] [address] [place] [address], [place] [address] 13 Dec, 2012 [facility] [address] [id number] [address] [place] [address], [place] [address] Dec, [facility] [address] [id number] [address] [place] [address], [place] [address] Dec, [facility] [address] [id number] [address] [place] [address], [place] [address] 07 Dec, 2012 [facility] [address] [id number] [address] [place] [address], [place] [address] 05 Dec, 2012 [facility] [address] [id number] [address] [place] [address], [place] [address] Dec, [facility] [address] [id number] [address] [place] [address], [place] [address] November, [facility] [address] [id number] [address] [place] [address], [place] [address] November, [facility] [address] [id number] [address] [place] [address], [place] [address] November, [facility] [address] [id number] [address] [place] [address], [place] [address] November, [facility] [address] [id number] [address] [place] [address], [place] [address] November, [facility] [address] [id number] [address] [place] [address], [place] [address] Oct, [facility] [address] [id number] [address] [place] [address], [place] [address] Oct, [facility] [address] [id number] [address] [place] [address], [place] [address] Oct, [facility] [address] [id number] [address] [place] [address], [place] [address] Oct, [facility] [address] [id number] [address] [place] [address], [place] [address] Oct, [facility] [address] [id number] [address] [place] [address], [place] [address] Sep, [facility] [address] [id number] [address] [place] [address], [place] [address] Sep, [facility] [address] [id number] [address] [place] [address], [place] [address] Sep, [facility] [address] [id number] [address] [place] [address], [place] [address] Sep, [facility] [address] [id number] [address] [place] [address], [place] [address] Aug, [facility] [address] [id number] [address] [place] [address], [place] [address] Aug, [facility] [address] [id number] [address] [place] [address], [place] [address] Aug, [facility] [address] [id number] [address] [place] [address], [place] [address] 15 Aug, 2012 [facility] [address] [id number] [address] [place] [address], [place] [address] Jun, [facility] [address] [id number] [address] [place] [address], [place] [address] Jun, [facility] [address] [id number] [address] [place] [address], [place] [address] Jun, [facility] [address] [id number] [address] [place] [address], [place] [address] Jun, [facility] [address] [id number] [address] [place] [address], [place] [address] Jun, [facility] [address] [id number] [address] [place] [address], [place] [address] Jun, [facility] [address] [id number] [address] [place] [address], [place] [address] Jun, [facility] [address] [id number] [address] [place] [address], [place] [address] Jun, [facility] [address] [id number] [address] [place] [address], [place] [address] Jun, [facility] [address] [id number] [address] [place] [address], [place] [address] Jun, [facility] [address] [id number] [address] [place] [address], [place] [address] May, [facility] [address] [id number] [address] [place] [address], [place] [address] May, [facility] [address] [id number] [address] [place] [address], [place] [address] May, [facility] [address] [id number] [address] [place] [address], [place] [address] May, [facility] [address] [id number] [address] [place] [address], [place] [address] 26 May, 2012 [facility] [address] [id number] [address] [place] [address], [place] [address] 16 May, 2012 [facility] [address] [id number] [address] [place] [address], [place] [address] 16 May, 2012 [facility] [address] [id number] [address] [place] [address], [place] [address] 14 May, 2012 [facility] [address] [id number] [address] [place] [address], [place] [address] 14 May, 2012 [facility] [address] [id number] [address] [place] [address], [place] [address] 30 Apr, 2012 [facility] [address] [id number] [address] [place] [address], [place] [address] 30 Apr, 2012 [facility] [address] [id number] [address] [place] [address], [place] [address] 17 Apr, 2012 [facility] [address] [id number] [address] [place] [address], [place] [address] 17 Apr, 2012 [facility] [address] [id number] [address] [place] [address], [place] [address] 09 Apr, 2012 [facility] [address] [id number] [address] [place] [address], [place] [address] 18 Mar, 2012 [facility] [address] [id number] [address] [place] [address], [place] [address] 17 Mar, 2012 [facility] [address] [id number] [address] [place] [address], [place] [address] 07 Mar, 2012 [facility] [address] [id number] [address] [place] [address], [place] [address] 27 Feb, 2012 [facility] [address] [id number] [address] [place] [address], [place] [address] 16 Feb, 2012 [facility] [address] [id number] [address] [place] [address], [place] [address] 15 Feb, 2012 [facility] [address] [id number] [address] [place] [address], [place] [address] Feb, [facility] [address] [id number] [address] [place] [address], [place] [address] Jan, [facility] [address] [id number] [address] [place] [address], [place] [address] Jan, [facility] [address] [id number] [address] [place] [address], [place] [address] Jan, [facility] [address] [id number] [address] [place] [address], [place] [address] Jan, [facility] [address] [id number] [address] [place] [address], [place] [address] Jan, [facility] [address] [id number] [address] [place] [address], [place] [address] Jan, [facility] [address] [id number] [address] [place] [address], [place] [address] Dec, [facility] [address] [id number] [address] [place] [address], [place] [address] Dec, [facility] [address] [id number] [address] [place] [address], [place] [address] Dec, [facility] [address] [id number] [address] [place] [address], [place] [address] November, [facility] [address] [id number] [address] [place] [address], [place] [address] November, [facility] [address] [id number] [address] [place] [address], [place] [address] November, [facility] [address] [id number] [address] [place] [address], [place] [address] November, [facility] [address] [id number] [address] [place] [address], [place] [address] Oct, [facility] [address] [id number] [address] [place] [address], [place] [address] Oct, [facility] [address] [id number] [address] [place] [address], [place] [address] Oct, [facility] [address] [id number] [address] [place] [address], [place] [address] Sep, [facility] [address] [id number] [address] [place] [address], [place] [address] Sep, [facility] [address] [id number] [address] [place] [address], [place] [address] Aug, [facility] [address] [id number] [address] [place] [address], [place] [address] Aug, [facility] [address] [id number] [address] [place] [address], [place] [address] Aug, [facility] [address] [id number] [address] [place] [address], [place] [address] Aug, [facility] [address] [id number] [address] [place] [address], [place] [address] Jul, [facility] [address] [id number] [address] [place] [address], [place] [address] Jul, [facility] [address] [id number] [address] [place] [address], [place] [address] Jul, [facility] [address] [id number] [address] [place] [address], [place] [address] Jul, [facility] [address] [id number] [address] [place] [address], [place] [address] Jul, [facility] [address] [id number] [address] [place] [address], [place] [address] Jul, [facility] [address] [id number] [address] [place] [address], [place] [address] Jul, [facility] [address] [id number] [address] [place] [address], [place] [address] Jul, [facility] [address] [id number] [address] [place] [address], [place] [address] 30 Jun, 2011 [facility] [address] [id number] [address] [place] [address], [place] [address] Jun, [facility] [address] [id number] [address] [place] [address], [place] [address] Jun, [facility] [address] [id number] [address] [place] [address], [place] [address] 08 Jun, 2011 [facility] [address] [id number] [address] [place] [address], [place] [address] Jun, [facility] [address] [id number] [address] [place] [address], [place] [address] May, [facility] [address] [id number] [address] [place] [address], [place] [address] May, [facility] [address] [id number] [address] [place] [address], [place] [address] May, [facility] [address] [id number] [address] [place] [address], [place] [address] May, [facility] [address] [id number] [address] [place] [address], [place] [address] May, [facility] [address] [id number] [address] [place] [address], [place] [address] May, [facility] [address] [id number] [address] [place] [address], [place] [address] Apr, [facility] [address] [id number] [address] [place] [address], [place] [address] Apr, [facility] [address] [id number] [address] [place] [address], [place] [address] Apr, [facility] [address] [id number] [address] [place] [address], [place] [address] Feb, [facility] [address] [id number] [address] [place] [address], [place] [address] Feb, [facility] [address] [id number] [address] [place] [address] Oct, [facility] [address] [id number] [address] [place] [address] Jul, [facility] [address] [id number] [address] [place] [address] Jul, [facility] [address] [id number] [address] [place] [address] Jun, [facility] [address] [id number] [address] [place] [address] May, [facility] [address] [id number] [address] [place] [address] May, [facility] [address] [id number] [address] [place] [address] May, [facility] [address] [id number] [address] [place] [address] Apr, [facility] [address] [id number] [address] [place] [address] Jan, [facility] [address] [id number] [address] [place] [address] November, IMMUNIZATIONS No Known Immunizations SOCIAL HISTORY Never Assessed REASON FOR VISIT PLAN OF CARE VITAL SIGNS Height 70 in 2012-06-24 Weight 200.3 lbs 2012-06-24 Temperature 98.8 degrees Fahrenheit 2012-06-24 Heart Rate 76 bpm 2012-06-24 Respiratory Rate 20 2012-06-24 Blood pressure systolic 140 mmHg 2012-06-24 Blood pressure diastolic 82 mmHg 2012-06-24 MEDICATIONS Unknown Medications RESULTS No Results PROCEDURES [...]
--- OUTSIDE RECORDS SUMMARY | 2020-01-31 09:42 | XMS REPORT ---
Author Author Ivet BRISENO Y Organization [facility] [place] [facility] Address [address] [place] [address] Care Team Providers Care Sound Tester Name Role Phone LINDY BRISENO Unavailable PROBLEMS Type Condition ICD9-CM Code FDE96-RI Code Onset Dates Condition S tatus SNOMED Code Problem Hypothyroidism E03.9 Active 38960 008 Problem GERD (gastroesophageal reflux disease) K21.9 Active 792325015 Problem Essential hypertension I10 Active 85379523 Problem Anxiety F41.9 Active 57109541 Problem Osteoarthritis M19.90 Active 34187 5006 Problem Schizo affective schizophrenia F25.0 Active 257838558 Problem Bilateral carotid artery disease I77.9 Active 500465274 Problem Low back pain, unspecified b ack pain laterality, unspecified chronicity, with sciatica presence unspecified M54.5 Active 828987488 Problem Vitamin D deficiency E55.9 Active 93136437 Problem Iron deficiency anemia, unspecified iron deficiency an emia type D50.9 Active 00345958 Problem Secondary hyperparathyroidism, not elsewhere classified E21.1 Active 51262221 Problem Lumbago with sciatica, right side M54.41 Active [id number] Problem Fibromyalgia M79.7 Active 5933148 05 Problem Other chronic pain G89.29 Active 8 5311992 Problem Stage 3 chronic kidney disease N18.3 Active 856090541 Problem Depression F32.9 Active 84325348 Problem Sensory loss R20.0 Active 0406291 9 Problem Idiopathic peripheral neuropathy G60.9 Active 09020117 Problem Acquired hypothyroidism E03.9 Active 880172474 Problem Lumbago with sciatica, left side M54.42 Active 293522030 ALLERGIES No Information ENCOUNTERS Encounter Location Date Diagnosis [facility] [place] [facility] [address] [facility] [id number] [address] [address] Oct, Osteoarthritis M19.90 [facility] [place] [facility] [address] [facility] [id number] [address] [place] [address] Sep, [facility] [place] [facility] [address] [facility] [id number] [address] [place] [address] Aug, Osteoarthritis M19.90 [facility] [place] [facility] [address] [facility] [id number] [address] [place] [address] Jul, Osteoarthritis M19.90 [facility] [place] [facility] [address] [facility] [id number] [address] [place] [address] Jun, Osteoarthritis M19.90 [facility] [address] [facility] [id number] [address] [place] [address] Jun, Herpes zoster without compli cation B02.9 [facility] [place] [facility] [address] [facility] [id number] [address] [place] [address] May, Osteoarthritis M19.90 [facility] [place] [facility] [address] [facility] [id number] [address] [place] [address] May, [facility] [place] [facility] [address] [facility] [id number] [address] [place] [address] Apr, [place] [address] [facility] [id number] [address] [place] [address] Mar, Osteoarthritis M19.90 [facility] [place] [facility] [address] [place] [id number] [address] [place] [address] Mar, [facility] [place] [facility] [address] [facility] [id number] [address] [place] [address] Feb, Lumbago with sciatica, left side M54.42 ; Lumbago with sciatica, right side M54.41 and Other chronic pain G89.29 [place] [address] [facility] [id number] [address] [place] [address] Feb, Encounter for Medicare annua l wellness exam Z00.00 ; Schizo affective schizophrenia F25.0 ; Essential hypertension I10 ; GERD (gastroesophageal reflux disease) K21.9 ; Secondary hyperparathyroidism, not elsewhere classified E21.1 ; Idiopathic peripheral neuropathy G60.9 ; Stage 3 chronic kidney disease N18.3 ; Acquired hypothyroidism E03.9 ; Bilateral carotid artery disease I77.9 and Hypothyroidism E03.9 [facility] [place] [facility] [address] [facility] [id number] [address] [place] [address] Feb, Osteoarthritis M19.90 [facility] [place] [facility] [address] [facility] [id number] [address] [place] [address] Jan, Osteoarthritis M19.90 [facility] [facility] [address] [facility] [id number] [address] [place] [address] Jan, Osteoarthritis M19.90 [facility] [facility] [address] [facility] [id number] [address] [place] [address] Dec, Acquired hypothyroidism E03. 9 [facility] [facility] [address] [facility] [id number] [address] [place] [address] Dec, Fibromyalgia M79.7 ; Hypothy roidism E03.9 ; Essential hypertension I10 and Sensory loss R20.[address] 340B [id number] [place] [address] November, Osteoarthritis M19.90 [facility] [facility] [address] [facility] [id number] [address] [place] [address] Oct, Osteoarthritis M19.90 [facility] [address] [facility] [id number] [address] [place] [address] Oct, Sore throat J02.9 and Acute nasopharyngitis J00 [facility] [facility] [address] [facility] [id number] [address] [place] [address] Sep, Osteoarthritis M19.90 [facility] [address] [facility] [id number] [address] [place] [address] Sep, Acute non-recurrent maxillar y sinusitis J01.00 [facility] [address] [facility] [id number] [address] [place] [address] Aug, Acute non-recurrent pansinus itis J01.40 [place] [address] [address] Jul, Osteoarthritis M19.90 [facility] [address] [address] Jul, [place] [address] [address] Apr, Osteoarthritis M19.90 [place] [address] [address] Apr, Fibromyalgia M79.7 ; Essenti al hypertension I10 ; Encounter for immunization Z23 ; Stage 3 chronic kidney disease N18.3 and Depression F32.9 [place] [address] [address] Dec, Fibromyalgia M79.7 ; Osteoar thritis M19.90 and Encounter for medication management Z79.899 [facility] [address] [address] November, Nausea and vomiting, intract ability of vomiting not specified, unspecified vomiting type R11.2 and Dizziness R42 [address] [address] November, Fibromyalgia M79.[address] [address] November, Medicare annual wellness vis it, initial Z00.00 ; Anxiety F41.9 ; Depression F32.9 ; Stage 3 chronic kidney disease N18.3 ; Fibromyalgia M79.7 ; Essential hypertension I10 ; Secondary hyperparathyroidism, not elsewhere classified E21.1 ; Osteoarthritis M19.90 ; Hypothyroidism E03.9 and Encounter for immunization Z23 [facility] [address] [address] Oct, [place] [address] [address] Oct, Sebaceous cyst L72.3 [place] [address] [address] Sep, Low back pain, unspecified b ack pain laterality, unspecified chronicity, with sciatica presence unspecified M54.5 and Secondary hyperparathyroidism, not elsewhere classified E21.1 [facility] [address] [place] [id number] [address] [place] [address] Sep, Fibromyalgia M79.7 [facility] [address] [address] Sep, Fibromyalgia M79.7 ; Plantar fasciitis, bilateral M72.2 ; Essential hypertension I10 ; Depression F32.9 and Epidermoid cyst L72.0 [place] [address] [address] Jul, [place] [address] [address] Jul, Fibromyalgia M79.7 ; Iron de ficiency anemia, unspecified iron deficiency anemia type D50.9 and Acute nasopharyngitis J00 [facility] [address] [address] Jun, Sore throat J02.9 and Acute serous otitis media of left ear, recurrence not specified H65.02 [facility] [address] [address] Jun, Hypothyroidism E03.9 [facility] [address] [address] Jun, [place] [address] [address] Jun, Hypothyroidism E03.9 ; Essen tial hypertension I10 and Osteoarthritis M19.90 [facility] [address] [place] [id number] [address] [place] [address] May, [place] [address] [address] May, [place] [address] [address] Feb, [place] [address] [address] Feb, Leonela-menopausal N95.1 and To bacco use Z72.[address] [address] Jan, [place] [address] [address] Jan, Osteoarthritis M19.90 ; Bila teral carotid artery disease I77.9 ; Raynauds syndrome I73.00 ; Essential hypertension I10 ; Allergic rhinitis J30.9 ; Stage 3 chronic kidney disease N18.3 ; Fibromyalgia M79.7 ; Hypothyroidism E03.9 ; GERD (gastroesophageal reflux disease) K21.9 and Vitamin D deficiency E55.[address] [address] Dec, Raynauds syndrome I73.00 ; P lantar fascial fibromatosis M72.2 ; Osteoarthritis M19.90 and Fibromyalgia M79.7 [place] [address] [address] Dec, [place] [address] [address] Dec, [place] [address] [address] Oct, Function kidney decreased N2 8.9 [facility] [address] [place] [id number] [place] [id number] Oct, Dental examination Z01.20 [place] [address] [address] Oct, Essential hypertension I10 a nd Function kidney decreased N28.9 [facility] [address] [id number] Oct, Dental examination Z01.20 [facility] [address] [id number] [address] [place] [address] Oct, [facility] [address] [facility] [id number] [address] [place] [address] 24 Sep, 2016 Other specified disorders in volving the immune mechanism D89.89 and Schizo affective schizophrenia F25.0 [facility] [address] [id number] [address] [place] [address] 21 Sep, 2016 Schizo affective schizophren ia F25.0 [facility] [address] [id number] [address] [place] [address] 16 Sep, 2016 Eustachian tube dysfunction, bilateral H69.83 [place] [address] [facility] [id number] [address] [place] [address] 15 Sep, 2016 [facility] [address] [facility] [id number] [address] [place] [address] 14 Sep, 2016 [facility] [address] [id number] [address] [place] [address] 14 Sep, 2016 [facility] [address] [facility] [id number] [address] [place] [address] 13 Sep, 2016 Eustachian tube dysfunction, bilateral H69.83 [facility] [address] [facility] [id number] [address] [place] [address] 09 Sep, 2016 Allergic rhinitis J30.9 ; Es sential hypertension I10 ; Hypothyroidism E03.9 and Schizo affective schizophrenia F25.0 [facility] [address] [id number] [address] [place] [address] Jul, Eustachian tube dysfunction, bilateral H69.83 and Visit for TB skin test Z11.1 [facility] [address] [facility] [id number] [address] [place] [address] 04 Jul, 2016 Subacute pansinusitis J01.40 [facility] [address] [facility] [id number] [address] [place] [address] Jun, Schizo affective schizophren ia F25.0 ; Depression F32.9 ; Allergic rhinitis J30.9 ; Raynauds syndrome I73.00 ; Essential hypertension I10 ; Slow transit constipation K59.01 ; GERD (gastroesophageal reflux disease) K21.9 ; Hypothyroidism E03.9 ; Nicotine addiction F17.200 ; Other viral agents as the cause of diseases classified elsewhere B97.89 ; Acute upper respiratory infection, unspecified J06.9 and Osteoarthritis M19.90 [place] [address] [address] Jun, Allergic rhinitis J30.9 and GERD (gastroesophageal reflux disease) K21.9 [place] [address] [address] May, [place] [address] [address] Mar, Schizo affective schizophren ia F25.0 [place] [address] [address] Mar, Schizo affective schizophren ia F25.0 [place] [address] [address] Mar, Schizo affective schizophren ia F25.0 [place] [address] [address] Mar, Acute non-recurrent maxillar y sinusitis J01.00 [place] [address] [address] Feb, Schizo affective schizophren ia F25.0 [place] [address] [address] Feb, Contact dermatitis and eczem a L25.9 [place] [address] [address] Jan, [place] [address] [address] Jan, Schizo affective schizophren ia F25.0 ; Slow transit constipation K59.01 ; Essential hypertension I10 ; GERD (gastroesophageal reflux disease) K21.9 ; Hypothyroidism E03.9 ; Osteoarthritis M19.90 ; Low back pain, unspecified back pain laterality, unspecified chronicity, with sciatica presence unspecified M54.5 and Bilateral carotid artery disease I77.9 [place] [address] [address] Oct, [place] [address] [address] Sep, Hypothyroid E03.9 [place] [address] [address] Sep, Schizo affective schizophren ia F25.0 ; Depression F32.9 ; Anxiety F41.9 ; Allergic rhinitis J30.9 ; Raynauds syndrome I73.00 ; Insomnia G47.00 ; Essential hypertension I10 ; GERD (gastroesophageal reflux disease) K21.9 ; Hypothyroidism E03.9 and Vitamin D deficiency E55.9 [place] [id number] [address] Sep, [place] [address] [address] Sep, [place] [address] [address] Aug, Allergic rhinitis J30.9 ; De pression F32.9 ; Anxiety F41.9 ; Raynauds syndrome I73.00 ; Insomnia G47.00 and GERD (gastroesophageal reflux disease) K21.9 [place] [address] [address] Aug, MONICA (secretory otitis media) H65.90 and Raynauds syndrome I73.00 [facility] [address] [place] [id number] [address] [place] [address] Jul, Acute otitis externa of both ears, unspecified type H60.503 [facility] [address] [place] [id number] [address] [place] [address] Jun, [facility] [address] [place] [id number] [address] [place] [address] Jun, Essential hypertension I10 ; Allergic rhinitis J30.9 ; Hypothyroidism E03.9 and Osteoarthritis M19.90 [place] [address] [address] Jun, Routine adult health mainten ance Z00.00 ; Hypothyroidism E03.9 ; Essential hypertension I10 ; Insomnia G47.00 ; Nicotine addiction F17.200 ; Raynauds syndrome I73.00 ; GERD (gastroesophageal reflux disease) K21.9 ; Allergic rhinitis J30.9 ; Anxiety F41.9 ; Depression F32.9 and Schizo affective schizophrenia F25.0 [place] [address] [place] [id number] [address] [place] [address] May, Upper respiratory tract infe ction, unspecified type J06.9 [place] [address] [place] [id number] [address] [place] [address] Mar, [place] [address] [place] [id number] [place] [id number] Mar, [place] [address] [place] [id number] [address] [place] [address] Mar, [place] [address] [place] [id number] [address] [place] [address] Mar, [place] [id number] [place] [address] Feb, Jaw pain 784.92 and Environm ental and seasonal allergies 477.8 [facility] [address] [place] [id number] [address] [place] [address] Feb, [facility] [address] [place] [id number] [address] [place] [address] Oct, [facility] [place] [facility] [address] [id number] [address] [place] [address], [place] [address] 28 Oct, 2014 [facility] [address] [id number] [address] [place] [address], [place] [address] 14 Oct, 2014 [facility] [address] [id number] [address] [place] [address], [place] [address] Oct, [facility] [address] [id number] [address] [place] [address], [place] [address] Sep, [facility] [address] [id number] [address] [place] [address], [place] [address] Sep, [facility] [address] [id number] [address] [place] [address], [place] [address] Jul, [facility] [address] [id number] [address] [place] [address], [place] [address] Jul, [facility] [address] [id number] [address] [place] [address], [place] [address] Jul, [facility] [address] [id number] [address] [place] [address], [place] [address] Jul, [facility] [address] [id number] [address] [place] [address], [place] [address] Jul, [facility] [address] [id number] [address] [place] [address], [place] [address] Jul, [facility] [address] [id number] [address] [place] [address], [place] [address] Jul, [facility] [address] [id number] [address] [place] [address], [place] [address] Jun, [facility] [address] [id number] [address] [place] [address], [place] [address] Jun, [facility] [address] [id number] [address] [place] [address], [place] [address] Jun, [facility] [address] [id number] [address] [place] [address], [place] [address] 18 Jun, 2014 [facility] [address] [id number] [address] [place] [address], [place] [address] Jun, [facility] [place] [facility] [address] [id number] [address] [place] [address], [place] [address] Jun, [facility] [address] [id number] [address] [place] [address], [place] [address] 16 Jun, 2014 [facility] [place] [facility] [address] [id number] [address] [place] [address], [place] [address] Jun, [facility] [address] [id number] [address] [place] [address], [place] [address] Apr, [facility] [address] [id number] [address] [place] [address], [place] [address] Apr, [facility] [address] [id number] [address] [place] [address], [place] [address] Mar, [facility] [place] [facility] [address] [id number] [address] [place] [address], [place] [address] Mar, [facility] [address] [id number] [address] [place] [address], [place] [address] Mar, [facility] [place] [facility] [address] [id number] [address] [place] [address], [place] [address] Mar, [facility] [place] [facility] [address] [id number] [address] [place] [address], [place] [address] Jan, [facility] [place] [facility] [address] [id number] [address] [place] [address], [place] [address] Jan, [facility] [place] [facility] [address] [id number] [address] [place] [address], [place] [address] Oct, [facility] [place] [facility] [address] [id number] [address] [place] [address], [place] [address] Oct, [facility] [place] [facility] [address] [id number] [address] [place] [address], [place] [address] Sep, [facility] [place] [facility] [address] [id number] [address] [place] [address], [place] [address] Sep, [facility] [address] [id number] [address] [place] [address], [place] [address] Sep, [facility] [address] [id number] [address] [place] [address], [place] [address] Sep, [facility] [address] [id number] [address] [place] [address], [place] [address] Sep, [facility] [address] [id number] [address] [place] [address], [place] [address] Sep, [facility] [address] [id number] [address] [place] [address], [place] [address] Aug, [facility] [address] [id number] [address] [place] [address], [place] [address] Aug, [facility] [address] [id number] [address] [place] [address], [place] [address] Jul, [facility] [address] [id number] [address] [place] [address], [place] [address] Jul, [facility] [address] [id number] [address] [place] [address], [place] [address] Jul, [facility] [address] [id number] [address] [place] [address], [place] [address] Jul, [facility] [address] [id number] [address] [place] [address], [place] [address] Jun, [facility] [address] [id number] [address] [place] [address], [place] [address] Jun, [facility] [address] [id number] [address] [place] [address], [place] [address] May, [facility] [address] [id number] [address] [place] [address], [place] [address] May, [facility] [address] [id number] [address] [place] [address], [place] [address] Apr, [facility] [address] [id number] [address] [place] [address], [place] [address] Apr, [facility] [address] [id number] [address] [place] [address], [place] [address] Apr, [facility] [address] [id number] [address] [place] [address], [place] [address] Apr, [facility] [address] [id number] [address] [place] [address], [place] [address] Apr, [facility] [address] [id number] [address] [place] [address], [place] [address] Apr, [facility] [address] [id number] [address] [place] [address], [place] [address] 24 Mar, 2013 [facility] [address] [id number] [address] [place] [address], [place] [address] Mar, [facility] [address] [id number] [address] [place] [address], [place] [address] Mar, [facility] [address] [id number] [address] [place] [address], [place] [address] 05 Mar, 2013 [facility] [address] [id number] [address] [place] [address], [place] [address] 05 Mar, 2013 [facility] [address] [id number] [address] [place] [address], [place] [address] Feb, [facility] [place] [facility] [address] [id number] [address] [place] [address], [place] [address] Feb, [facility] [place] [facility] [address] [id number] [address] [place] [address], [place] [address] Feb, [facility] [place] [facility] [address] [id number] [address] [place] [address], [place] [address] Feb, [facility] [place] [facility] [address] [id number] [address] [place] [address], [place] [address] Jan, [facility] [place] [facility] [address] [id number] [address] [place] [address] [place] [address] 17 Jan, 2013 [facility] [address] [id number] [address] [place] [address], [place] [address] 16 Jan, 2013 [facility] [address] [id number] [address] [place] [address], [place] [address] Jan, [facility] [address] [id number] [address] [place] [address], [place] [address] Jan, [facility] [address] [id number] [address] [place] [address], [place] [address] Jan, [facility] [address] [id number] [address] [place] [address], [place] [address] Dec, [facility] [address] [id number] [address] [place] [address], [place] [address] Dec, [facility] [address] [id number] [address] [place] [address], [place] [address] Dec, [facility] [address] [id number] [address] [place] [address], [place] [address] 14 Dec, 2012 [facility] [address] [id number] [address] [place] [address], [place] [address] 13 Dec, 2012 [facility] [address] [id number] [address] [place] [address], [place] [address] 12 Dec, 2012 [facility] [address] [id number] [address] [place] [address], [place] [address] Dec, [facility] [address] [id number] [address] [place] [address], [place] [address] 07 Dec, 2012 [facility] [address] [id number] [address] [place] [address], [place] [address] 05 Dec, 2012 [facility] [address] [id number] [address] [place] [address], [place] [address] Dec, [facility] [address] [id number] [address] [place] [address], [place] [address] November, [facility] [place] [facility] [address] [id number] [address] [place] [address], [place] [address] November, [facility] [address] [id number] [address] [place] [address], [place] [address] November, [facility] [address] [id number] [address] [place] [address], [place] [address] November, [facility] [address] [id number] [address] [place] [address], [place] [address] November, [facility] [address] [id number] [address] [place] [address], [place] [address] Oct, [facility] [address] [id number] [address] [place] [address], [place] [address] Oct, [facility] [address] [id number] [address] [place] [address], [place] [address] Oct, [facility] [address] [id number] [address] [place] [address], [place] [address] Oct, [facility] [address] [id number] [address] [place] [address], [place] [address] Oct, [facility] [address] [id number] [address] [place] [address], [place] [address] Sep, [facility] [address] [id number] [address] [place] [address], [place] [address] Sep, [facility] [address] [id number] [address] [place] [address], [place] [address] Sep, [facility] [address] [id number] [address] [place] [address], [place] [address] Sep, [facility] [address] [id number] [address] [place] [address], [place] [address] Aug, [facility] [address] [id number] [address] [place] [address], [place] [address] Aug, [facility] [address] [id number] [address] [place] [address], [place] [address] 18 Aug, 2012 [facility] [address] [id number] [address] [place] [address], [place] [address] 15 Aug, 2012 [facility] [address] [id number] [address] [place] [address], [place] [address] Jun, [facility] [address] [id number] [address] [place] [address], [place] [address] Jun, [facility] [address] [id number] [address] [place] [address], [place] [address] Jun, [facility] [address] [id number] [address] [place] [address], [place] [address] Jun, [facility] [address] [id number] [address] [place] [address], [place] [address] Jun, [facility] [address] [id number] [address] [place] [address], [place] [address] Jun, [facility] [address] [id number] [address] [place] [address], [place] [address] Jun, [facility] [address] [id number] [address] [place] [address], [place] [address] Jun, [facility] [address] [id number] [address] [place] [address], [place] [address] Jun, [facility] [address] [id number] [address] [place] [address], [place] [address] Jun, [facility] [address] [id number] [address] [place] [address], [place] [address] May, [facility] [address] [id number] [address] [place] [address], [place] [address] May, [facility] [address] [id number] [address] [place] [address], [place] [address] May, [facility] [address] [id number] [address] [place] [address], [place] [address] May, [facility] [address] [id number] [address] [place] [address], [place] [address] 26 May, 2012 [facility] [address] [id number] [address] [place] [address], [place] [address] 16 May, 2012 [facility] [address] [id number] [address] [place] [address], [place] [address] 16 May, 2012 [facility] [address] [id number] [address] [place] [address], [place] [address] 14 May, 2012 [facility] [address] [id number] [address] [place] [address], [place] [address] 14 May, 2012 [facility] [address] [id number] [address] [place] [address], [place] [address] 30 Apr, 2012 [facility] [address] [id number] [address] [place] [address], [place] [address] 30 Apr, 2012 [facility] [address] [id number] [address] [place] [address], [place] [address] 17 Apr, 2012 [facility] [address] [id number] [address] [place] [address], [place] [address] 17 Apr, 2012 [facility] [address] [id number] [address] [place] [address], [place] [address] 09 Apr, 2012 [facility] [address] [id number] [address] [place] [address], [place] [address] 18 Mar, 2012 [facility] [place] [facility] [address] [id number] [address] [place] [address], [place] [address] 17 Mar, 2012 [facility] [address] [id number] [address] [place] [address], [place] [address] 07 Mar, 2012 [facility] [place] [facility] [address] [id number] [address] [place] [address], [place] [address] 27 Feb, 2012 [facility] [place] [facility] [address] [id number] [address] [place] [address], [place] [address] 16 Feb, 2012 [facility] [address] [id number] [address] [place] [address], [place] [address] Feb, [facility] [address] [id number] [address] [place] [address], [place] [address] Feb, [facility] [address] [id number] [address] [place] [address], [place] [address] Jan, [facility] [address] [id number] [address] [place] [address], [place] [address] Jan, [facility] [address] [id number] [address] [place] [address], [place] [address] Jan, [facility] [address] [id number] [address] [place] [address], [place] [address] Jan, [facility] [address] [id number] [address] [place] [address], [place] [address] Jan, [facility] [address] [id number] [address] [place] [address], [place] [address] Jan, [facility] [address] [id number] [address] [place] [address], [place] [address] Dec, [facility] [address] [id number] [address] [place] [address], [place] [address] Dec, [facility] [address] [id number] [address] [place] [address], [place] [address] Dec, [facility] [address] [id number] [address] [place] [address], [place] [address] November, [facility] [address] [id number] [address] [place] [address], [place] [address] November, [facility] [address] [id number] [address] [place] [address], [place] [address] November, [facility] [address] [id number] [address] [place] [address], [place] [address] November, [facility] [address] [id number] [address] [place] [address], [place] [address] Oct, [facility] [address] [id number] [address] [place] [address], [place] [address] Oct, [facility] [address] [id number] [address] [place] [address], [place] [address] Oct, [facility] [address] [id number] [address] [place] [address], [place] [address] Sep, [facility] [address] [id number] [address] [place] [address], [place] [address] Sep, [facility] [address] [id number] [address] [place] [address], [place] [address] Aug, [facility] [address] [id number] [address] [place] [address], [place] [address] Aug, [facility] [address] [id number] [address] [place] [address], [place] [address] Aug, [facility] [address] [id number] [address] [place] [address], [place] [address] Aug, [facility] [address] [id number] [address] [place] [address], [place] [address] Jul, [facility] [address] [id number] [address] [place] [address], [place] [address] Jul, [facility] [address] [id number] [address] [place] [address], [place] [address] Jul, [facility] [address] [id number] [address] [place] [address], [place] [address] Jul, [facility] [address] [id number] [address] [place] [address], [place] [address] Jul, [facility] [address] [id number] [address] [place] [address], [place] [address] Jul, [facility] [address] [id number] [address] [place] [address], [place] [address] Jul, [facility] [address] [id number] [address] [place] [address], [place] [address] Jul, [facility] [address] [id number] [address] [place] [address], [place] [address] Jun, [facility] [address] [id number] [address] [place] [address], [place] [address] Jun, [facility] [address] [id number] [address] [place] [address], [place] [address] Jun, [facility] [address] [id number] [address] [place] [address], [place] [address] Jun, [facility] [address] [id number] [address] [place] [address], [place] [address] Jun, [facility] [address] [id number] [address] [place] [address], [place] [address] May, [facility] [address] [id number] [address] [place] [address], [place] [address] May, [facility] [address] [id number] [address] [place] [address], [place] [address] May, [facility] [address] [id number] [address] [place] [address], [place] [address] May, [facility] [address] [id number] [address] [place] [address], [place] [address] May, [facility] [address] [id number] [address] [place] [address], [place] [address] May, [facility] [address] [id number] [address] [place] [address] Apr, [facility] [address] [id number] [address] [place] [address], [place] [address] Apr, [facility] [address] [id number] [address] [place] [address], [place] [address] Apr, [facility] [address] [id number] [address] [place] [address], [place] [address] Feb, [facility] [address] [id number] [address] [place] [address] Feb, [facility] [place] [facility] [address] [id number] [address] [place] [address] Oct, [facility] [place] [facility] [address] [id number] [address] [place] [address] Jul, [facility] [place] [facility] [address] [id number] [address] [place] [address] Jul, [facility] [place] [facility] [address] [id number] [address] [place] [address] Jun, [facility] [place] [facility] [address] [id number] [address] [place] [address] May, [facility] [place] [facility] [address] [id number] [address] [place] [address] May, [facility] [place] [facility] [address] [id number] [address] [place] [address] May, [facility] [place] [facility] [address] [id number] [address] [place] [address] Apr, [facility] [place] [facility] [address] [id number] [address] [place] [address] Jan, [facility] [place] [facility] [address] [id number] [address] [place] [address] November, IMMUNIZATIONS No Known Immunizations SOCIAL HISTORY [...]
--- OUTSIDE RECORDS SUMMARY | 2020-01-31 09:42 | XMS REPORT ---
Author Author Ivet BRISENO Y Organization [facility] Address [address] [place] [address] Care Team Providers Care Educational Consultant Name Role Phone LINDY BRISENO Unavailable PROBLEMS Type Condition ICD9-CM Code CRQ22-KE Code Onset Dates Condition S tatus SNOMED Code Problem Hypothyroidism E03.9 Active 38795 008 Problem GERD (gastroesophageal reflux disease) K21.9 Active 677960912 Problem Essential hypertension I10 Active 10193383 Problem Anxiety F41.9 Active 68870248 Problem Osteoarthritis M19.90 Active 78014 5006 Problem Schizo affective schizophrenia F25.0 Active 061103962 Problem Bilateral carotid artery disease I77.9 Active 250773603 Problem Low back pain, unspecified b ack pain laterality, unspecified chronicity, with sciatica presence unspecified M54.5 Active 061442998 Problem Vitamin D deficiency E55.9 Active 57481085 Problem Iron deficiency anemia, unspecified iron deficiency an emia type D50.9 Active 26392845 Problem Secondary hyperparathyroidism, not elsewhere classified E21.1 Active 51705926 Problem Lumbago with sciatica, right side M54.41 Active [id number] Problem Fibromyalgia M79.7 Active 2492469 05 Problem Other chronic pain G89.29 Active 8 8027577 Problem Stage 3 chronic kidney disease N18.3 Active 813842718 Problem Depression F32.9 Active 83992333 Problem Sensory loss R20.0 Active 5111998 9 Problem Idiopathic peripheral neuropathy G60.9 Active 05513219 Problem Acquired hypothyroidism E03.9 Active 845240549 Problem Lumbago with sciatica, left side M54.42 Active [id number] ALLERGIES No Information ENCOUNTERS Encounter Location Date Diagnosis [facility] [address] [facility] [id number] [address] [address] Sep, [facility] [address] [facility] [id number] [address] [place] [address] Aug, Osteoarthritis M19.90 [facility] [address] [facility] [id number] [address] [place] [address] Jul, Osteoarthritis M19.90 [facility] [address] [facility] [id number] [address] [place] [address] Jun, Osteoarthritis M19.90 [facility] [address] [facility] [id number] [address] [place] [address] Jun, Herpes zoster without compli cation B02.9 [facility] [address] [facility] [id number] [address] [place] [address] May, Osteoarthritis M19.90 [facility] [address] [facility] [id number] [address] [place] [phone] May, [facility] [address] [facility] [id number] [address] [place] [address] Apr, [facility] [address] [facility] [id number] [address] [place] [address] Mar, Osteoarthritis M19.90 [facility] [address] [facility] [id number] [address] [place] [address] Mar, [facility] [address] [facility] [id number] [address] [place] [address] Feb, Lumbago with sciatica, left side M54.42 ; Lumbago with sciatica, right side M54.41 and Other chronic pain G89.29 [facility] [address] [facility] [id number] [address] [place] [address] Feb, [facility] for [facility] Z00.00 ; Schizo affective schizophrenia F25.0 ; Essential hypertension I10 ; GERD (gastroesophageal reflux disease) K21.9 ; Secondary hyperparathyroidism, not elsewhere classified E21.1 ; Idiopathic peripheral neuropathy G60.9 ; Stage 3 chronic kidney disease N18.3 ; Acquired hypothyroidism E03.9 ; Bilateral carotid artery disease I77.9 and Hypothyroidism E03.9 [facility] [address] [facility] [id number] [address] [place] [address] Feb, Osteoarthritis M19.90 [facility] [address] [facility] [id number] [address] [place] [address] Jan, Osteoarthritis M19.90 [facility] [address] [facility] [id number] [address] [place] [address] Jan, Osteoarthritis M19.90 [facility] [address] [facility] [id number] [address] [place] [address] Dec, Acquired hypothyroidism E03. 9 [facility] [address] [facility] [id number] [address] [place] [address] Dec, Fibromyalgia M79.7 ; Hypothy roidism E03.9 ; Essential hypertension I10 and Sensory loss R20.[id number] [place] [address] November, Osteoarthritis M19.90 [facility] [address] [facility] [id number] [address] [place] [phone] Oct, Osteoarthritis M19.90 [facility] [address] [facility] [id number] [address] [place] [address] Oct, Sore throat J02.9 and Acute nasopharyngitis J00 [facility] [address] [facility] [id number] [address] [place] [address] Sep, Osteoarthritis M19.90 [facility] [address] [facility] [id number] [address] [place] [phone] Sep, Acute non-recurrent maxillar y sinusitis J01.00 [facility] [address] [facility] [id number] [address] [place] [address] Aug, Acute non-recurrent pansinus itis J01.40 [facility] [address] [facility] [id number] [address] [place] [address] Jul, Osteoarthritis M19.90 [facility] [address] [facility] [id number] [address] [place] [address] Jul, [facility] [address] [facility] [id number] [address] [place] [phone] 18 Apr, 2018 Osteoarthritis M19.90 [facility] [address] [facility] [id number] [address] [place] [address] 08 Apr, 2018 Fibromyalgia M79.7 ; Essenti al hypertension I10 ; Encounter for immunization Z23 ; Stage 3 chronic kidney disease N18.3 and Depression F32.9 [facility] [address] [facility] [id number] [address] [place] [phone] 12 Dec, 2017 Fibromyalgia M79.7 ; Osteoar thritis M19.90 and Encounter for medication management Z79.899 [facility] [address] [facility] [id number] [address] [place] [address] November, Nausea and vomiting, intract ability of vomiting not specified, unspecified vomiting type R11.2 and Dizziness R42 [facility] [address] [facility] [id number] [address] [place] [address] November, Fibromyalgia M79.7 [place] [address] [place] [id number] [place] [id number] 11 Nov, 2017 Medicare annual wellness vis it, initial Z00.00 ; Anxiety F41.9 ; Depression F32.9 ; Stage 3 chronic kidney disease N18.3 ; Fibromyalgia M79.7 ; Essential hypertension I10 ; Secondary hyperparathyroidism, not elsewhere classified E21.1 ; Osteoarthritis M19.90 ; Hypothyroidism E03.9 and Encounter for immunization Z23 [facility] [address] [facility] [id number] [address] [place] [phone] Oct, [place] [address] [place] [id number] [address] [place] [phone] Oct, Sebaceous cyst L72.3 [facility] [address] [facility] [id number] [address] [place] [address] Sep, Low back pain, unspecified b ack pain laterality, unspecified chronicity, with sciatica presence unspecified M54.5 and Secondary hyperparathyroidism, not elsewhere classified E21.1 [facility] [address] [address] Sep, Fibromyalgia M79.7 [facility] [address] [phone] 05 Sep, 2017 Fibromyalgia M79.7 ; Plantar fasciitis, bilateral M72.2 ; Essential hypertension I10 ; Depression F32.9 and Epidermoid cyst L72.0 [facility] [address] [address] Jul, [facility] [address] [address] Jul, Fibromyalgia M79.7 ; Iron de ficiency anemia, unspecified iron deficiency anemia type D50.9 and Acute nasopharyngitis J00 [facility] [address] [address] Jun, Sore throat J02.9 and Acute serous otitis media of left ear, recurrence not specified H65.02 [place] [address] [address] Jun, Hypothyroidism E03.9 [place] [address] [address] Jun, [place] [address] [address] Jun, Hypothyroidism E03.9 ; Essen tial hypertension I10 and Osteoarthritis M19.90 [place] [address] [address] May, [place] [address] [address] May, [place] [address] [address] Feb, [place] [address] [place] [id number] [address] [place] [address] Feb, Leonela-menopausal N95.1 and To bacco use Z72.0 [facility] [address] [facility] [id number] [address] [place] [phone] Jan, [place] [address] [place] [id number] [place] [address] Jan, Osteoarthritis M19.90 ; Bila teral carotid artery disease I77.9 ; Raynauds syndrome I73.00 ; Essential hypertension I10 ; Allergic rhinitis J30.9 ; Stage 3 chronic kidney disease N18.3 ; Fibromyalgia M79.7 ; Hypothyroidism E03.9 ; GERD (gastroesophageal reflux disease) K21.9 and Vitamin D deficiency E55.9 [place] [address] [place] [id number] [place] [phone] Dec, Raynauds syndrome I73.00 ; P lantar fascial fibromatosis M72.2 ; Osteoarthritis M19.90 and Fibromyalgia M79.7 [place] [address] [place] [id number] [address] [place] [phone] Dec, [place] [address] [address] Dec, [place] [address] [place] [id number] [place] [address] Oct, Function kidney decreased N2 8.9 [facility] [address] [place] [id number] [place] [id number] Oct, Dental examination Z01.20 [facility] [address] [facility] [id number] [address] [place] [address] 18 Oct, 2016 Essential hypertension I10 a nd Function kidney decreased N28.9 [facility] [address] [id number] [address] [place] [id number] Oct, Dental examination Z01.20 [facility] [address] [facility] [id number] [address] [place] [phone] Oct, [facility] [address] [place] [phone] 24 Sep, 2016 Other specified disorders in volving the immune mechanism D89.89 and Schizo affective schizophrenia F25.0 [facility] [address] [facility] [id number] [address] [place] [phone] 21 Sep, 2016 Schizo affective schizophren ia F25.0 [facility] [address] [facility] [id number] [address] [place] [phone] 16 Sep, 2016 Eustachian tube dysfunction, bilateral H69.83 [place] [address] [address] 15 Sep, 2016 [facility] [address] [place] [id number] [place] [phone] 14 Sep, 2016 [place] [address] [address] 14 Sep, 2016 [facility] [address] [place] [id number] [address] [place] [phone] 13 Sep, 2016 Eustachian tube dysfunction, bilateral H69.83 [place] [address] [address] 09 Sep, 2016 Allergic rhinitis J30.9 ; Es sential hypertension I10 ; Hypothyroidism E03.9 and Schizo affective schizophrenia F25.0 [facility] [address] [place] [id number] [address] [place] [address] Jul, Eustachian tube dysfunction, bilateral H69.83 and Visit for TB skin test Z11.1 [facility] [address] [place] [id number] [address] [place] [address] Jul, Subacute pansinusitis J01.40 [facility] [address] [place] [id number] [address] [place] [phone] Jun, Schizo affective schizophren ia F25.0 ; Depression F32.9 ; Allergic rhinitis J30.9 ; Raynauds syndrome I73.00 ; Essential hypertension I10 ; Slow transit constipation K59.01 ; GERD (gastroesophageal reflux disease) K21.9 ; Hypothyroidism E03.9 ; Nicotine addiction F17.200 ; Other viral agents as the cause of diseases classified elsewhere B97.89 ; Acute upper respiratory infection, unspecified J06.9 and Osteoarthritis M19.90 [place] [address] [address] Jun, Allergic rhinitis J30.9 and GERD (gastroesophageal reflux disease) K21.9 [place] [address] [address] May, [place] [address] [address] Mar, Schizo affective schizophren ia F25.0 [place] [address] [address] Mar, Schizo affective schizophren ia F25.0 [place] [address] [address] Mar, Schizo affective schizophren ia F25.0 [place] [address] [address] Mar, Acute non-recurrent maxillar y sinusitis J01.00 [place] [address] [address] Feb, Schizo affective schizophren ia F25.0 [place] [address] [place] [address] Feb, Contact dermatitis and eczem a L25.9 [place] [address] [address] Jan, [place] [address] [place] [id number] [address] [place] [phone] Jan, Schizo affective schizophren ia F25.0 ; Slow transit constipation K59.01 ; Essential hypertension I10 ; GERD (gastroesophageal reflux disease) K21.9 ; Hypothyroidism E03.9 ; Osteoarthritis M19.90 ; Low back pain, unspecified back pain laterality, unspecified chronicity, with sciatica presence unspecified M54.5 and Bilateral carotid artery disease I77.9 [place] [address] [address] Oct, [place] [address] [address] Sep, Hypothyroid E03.9 [place] [address] [address] Sep, Schizo affective schizophren ia F25.0 ; Depression F32.9 ; Anxiety F41.9 ; Allergic rhinitis J30.9 ; Raynauds syndrome I73.00 ; Insomnia G47.00 ; Essential hypertension I10 ; GERD (gastroesophageal reflux disease) K21.9 ; Hypothyroidism E03.9 and Vitamin D deficiency E55.9 [place] [address] [address] Sep, [place] [address] [address] Sep, [place] [address] [address] Aug, Allergic rhinitis J30.9 ; De pression F32.9 ; Anxiety F41.9 ; Raynauds syndrome I73.00 ; Insomnia G47.00 and GERD (gastroesophageal reflux disease) K21.9 [place] [address] [address] Aug, MONICA (secretory otitis media) H65.90 and Raynauds syndrome I73.00 [facility] [address] [address] Jul, Acute otitis externa of both ears, unspecified type H60.503 [place] [address] [address] Jun, [facility] [address] [facility] [id number] [address] [place] [address] Jun, Essential hypertension I10 ; Allergic rhinitis J30.9 ; Hypothyroidism E03.9 and Osteoarthritis M19.90 [facility] [address] [facility] [id number] [address] [place] [address] Jun, Routine adult health mainten ance Z00.00 ; Hypothyroidism E03.9 ; Essential hypertension I10 ; Insomnia G47.00 ; Nicotine addiction F17.200 ; Raynauds syndrome I73.00 ; GERD (gastroesophageal reflux disease) K21.9 ; Allergic rhinitis J30.9 ; Anxiety F41.9 ; Depression F32.9 and Schizo affective schizophrenia F25.0 [facility] [address] [place] [address] May, Upper respiratory tract infe ction, unspecified type J06.9 [facility] [address] [place] [address] Mar, [facility] [address] [id number] [id number] Mar, [facility] [address] [place] [id number] [address] [place] [address] Mar, [facility] [address] [place] [address] Mar, [facility] [address] [place] [id number] [address] [place] [address] Feb, Jaw pain 784.92 and Environm ental and seasonal allergies 477.8 [facility] [address] [facility] [id number] [address] [place] [address] Feb, [facility] [address] [place] [id number] [address] [place] [phone] Oct, [facility] [address] [place] [id number] [address] [place] [phone] Oct, [facility] [address] [id number] [address] [place] [address], [place] [address] 14 Oct, 2014 [facility] [address] [id number] [address] [place] [address], [place] [address] 13 Oct, 2014 [facility] [address] [id number] [address] [place] [address], [place] [address] Sep, [facility] [address] [id number] [address] [place] [address], [place] [address] Sep, [facility] [address] [id number] [address] [place] [address], [place] [address] Jul, [facility] [address] [id number] [address] [place] [address], [place] [address] Jul, [facility] [address] [id number] [address] [place] [address], [place] [address] Jul, [facility] [address] [id number] [address] [place] [address], [place] [address] Jul, [facility] [address] [id number] [address] [place] [address], [place] [address] Jul, [facility] [address] [id number] [address] [place] [address], [place] [address] Jul, [facility] [address] [id number] [address] [place] [address], [place] [address] Jul, [facility] [address] [id number] [address] [place] [address], [place] [address] Jun, [facility] [address] [id number] [address] [place] [address], [place] [address] 31 Jun, 2014 [facility] [address] [id number] [address] [place] [address], [place] [address] Jun, [facility] [address] [id number] [address] [place] [address], [place] [address] 18 Jun, 2014 [facility] [address] [id number] [address] [place] [address], [place] [address] Jun, [facility] [address] [id number] [address] [place] [address], [place] [address] 17 Jun, 2014 [facility] [address] [id number] [address] [place] [address], [place] [address] Jun, [facility] [address] [id number] [address] [place] [address], [place] [address] Jun, [facility] [address] [id number] [address] [place] [address], [place] [address] Apr, [facility] [address] [id number] [address] [place] [address], [place] [address] Apr, [facility] [address] [id number] [address] [place] [address], [place] [address] Mar, [facility] [address] [id number] [address] [place] [address], [place] [address] Mar, [facility] [address] [id number] [address] [place] [address], [place] [address] Mar, [facility] [address] [id number] [address] [place] [address], [place] [address] Mar, [facility] [address] [id number] [address] [place] [address], [place] [address] Jan, [facility] [address] [id number] [address] [place] [address], [place] [address] Jan, [facility] [address] [id number] [address] [place] [address], [place] [address] Oct, [facility] [address] [id number] [address] [place] [address], [place] [address] Oct, [facility] [address] [id number] [address] [place] [address], [place] [address] Sep, [facility] [address] [id number] [address] [place] [address], [place] [address] Sep, [facility] [address] [id number] [address] [place] [id number], [place] [id number] 05 Sep, 2013 [facility] [address] [id number] [address] [place] [id number], [place] [id number] Sep, [facility] [address] [id number] [address] [place] [id number], [place] [id number] Sep, [facility] [address] [id number] [address] [place] [id number], [place] [id number] Sep, [facility] [address] [id number] [address] [place] [id number], [place] [id number] Aug, [facility] [address] [id number] [address] [place] [id number], [place] [id number] Aug, [facility] [address] [id number] [address] [place] [id number], [place] [id number] Jul, [facility] [address] [id number] [address] [place] [id number], [place] [id number] Jul, [facility] [address] [id number] [address] [place] [id number], [place] [id number] Jul, [facility] [address] [id number] [address] [place] [id number], [place] [id number] Jul, [facility] [address] [id number] [address] [place] [id number], [place] [id number] Jun, [facility] [address] [id number] [address] [place] [id number], [place] [id number] Jun, [facility] [address] [id number] [address] [place] [address], [place] [id number] May, [facility] [address] [id number] [address] [place] [id number], [place] [id number] May, [facility] [address] [id number] [address] [place] [address], [place] [id number] Apr, [facility] [address] [id number] [address] [place] [address], [place] [id number] Apr, [facility] [address] [id number] [address] [place] [address], [place] [id number] Apr, [facility] [address] [id number] [address] [place] [address], [place] [id number] Apr, [facility] [address] [id number] [address] [place] [address], [place] [id number] Apr, [facility] [address] [id number] [address] [place] [address], [place] [id number] Apr, [facility] [address] [id number] [address] [place] [address], [place] [id number] Mar, [facility] [address] [id number] [address] [place] [address], [place] [id number] Mar, [facility] [facility] [address] [id number] [address] [place] [address], [place] [address] Mar, [facility] [address] [id number] [address] [place] [address], [place] [address] Mar, [facility] [address] [id number] [address] [place] [address], [place] [address] Mar, [facility] [address] [id number] [address] [place] [address], [place] [address] Feb, [facility] [address] [id number] [address] [place] [address], [place] [address] Feb, [facility] [address] [id number] [address] [place] [address], [place] [id number] Feb, [facility] [address] [id number] [address] [place] [address], [place] [address] Feb, [facility] [address] [id number] [address] [place] [address], [place] [address] Jan, [facility] [address] [id number] [address] [place] [address], [place] [address] Jan, [facility] [address] [id number] [address] [place] [address], [place] [id number] 16 Jan, 2013 [facility] [address] [id number] [facility] [address] Jan, [facility] [address] [id number] [address] [place] [address], [place] [address] Jan, [facility] [address] [id number] [address] [place] [address], [place] [address] Jan, [facility] [address] [id number] [address] [place] [address], [place] [address] Dec, [facility] [address] [id number] [address] [place] [address], [place] [address] Dec, [facility] [address] [id number] [address] [place] [address], [place] [address] Dec, [facility] [address] [id number] [address] [place] [address], [place] [id number] 14 Dec, 2012 [facility] [address] [id number] [address] [place] [address], [place] [address] Dec, [facility] [address] [id number] [address] [place] [address], [place] [address] Dec, [facility] [address] [id number] [address] [place] [address], [place] [address] Dec, [facility] [address] [id number] [address] [place] [address], [place] [address] Dec, [facility] [address] [id number] [address] [place] [address], [place] [id number] 05 Dec, 2012 [facility] [address] [id number] [address] [place] [address], [place] [address] Dec, [facility] [address] [id number] [address] [place] [address], [place] [address] November, [facility] [address] [id number] [address] [place] [address], [place] [address] November, [facility] [address] [id number] [address] [place] [address], [place] [address] November, [facility] [address] [id number] [address] [place] [address], [place] [address] November, [facility] [address] [id number] [address] [place] [address], [place] [address] November, [facility] [address] [id number] [address] [place] [address], [place] [address] Oct, [facility] [address] [id number] [address] [place] [address], [place] [address] Oct, [facility] [address] [id number] [address] [place] [address], [place] [address] Oct, [facility] [address] [id number] [address] [place] [address], [place] [id number] Oct, [facility] [address] [id number] [address] [place] [address], [place] [address] Oct, [facility] [address] [id number] [address] [place] [address], [place] [address] Sep, [facility] [address] [id number] [address] [place] [address], [place] [address] Sep, [facility] [address] [id number] [address] [place] [address], [place] [address] Sep, [facility] [address] [id number] [address] [place] [address], [place] [address] Sep, [facility] [address] [id number] [address] [place] [address], [place] [address] Aug, [facility] [address] [id number] [address] [place] [address], [place] [address] Aug, [facility] [address] [id number] [address] [place] [address], [place] [address] Aug, [facility] [address] [id number] [address] [place] [address], [place] [id number] 15 Aug, 2012 [facility] [address] [id number] [address] [place] [address], [place] [address] Jun, [facility] [address] [id number] [address] [place] [address], [place] [address] Jun, [facility] [address] [id number] [address] [place] [address], [place] [id number] Jun, [facility] [address] [id number] [address] [place] [address], [place] [address] Jun, [facility] [address] [id number] [address] [place] [address], [place] [id number] Jun, [facility] [address] [id number] [address] [place] [address], [place] [address] Jun, [facility] [address] [id number] [address] [place] [address], [place] [id number] Jun, [facility] [address] [id number] [address] [place] [address], [place] [address] Jun, [facility] [address] [id number] [address] [place] [address], [place] [address] Jun, [facility] [address] [id number] [address] [place] [address], [place] [address] Jun, [facility] [address] [id number] [address] [place] [address], [place] [address] May, [facility] [address] [id number] [address] [place] [address], [place] [address] May, [facility] [address] [id number] [address] [place] [address], [place] [address] May, [facility] [address] [id number] [address] [place] [address], [place] [address] May, [facility] [address] [id number] [address] [place] [address], [place] [address] May, [facility] [address] [id number] [address] [place] [address], [place] [id number] 16 May, 2012 [facility] [address] [id number] [address] [place] [address], [place] [address] 16 May, 2012 [facility] [address] [id number] [address] [place] [address], [place] [id number] 14 May, 2012 [facility] [address] [id number] [address] [place] [address], [place] [address] 14 May, 2012 [facility] [address] [id number] [address] [place] [address], [place] [id number] 30 Apr, 2012 [facility] [address] [id number] [address] [place] [address], [place] [id number] 30 Apr, 2012 [facility] [address] [id number] [address] [place] [address], [place] [address] 17 Apr, 2012 [facility] [address] [id number] [address] [place] [address], [place] [id number] 17 Apr, 2012 [facility] [address] [id number] [address] [place] [address], [place] [id number] 09 Apr, 2012 [facility] [address] [id number] [address] [place] [address], [place] [id number] 18 Mar, 2012 [facility] [address] [id number] [address] [place] [address], [place] [id number] 17 Mar, 2012 [facility] [address] [id number] [address] [place] [address], [place] [id number] 07 Mar, 2012 [facility] [address] [id number] [address] [place] [address], [place] [id number] 27 Feb, 2012 [facility] [address] [id number] [address] [place] [address], [place] [id number] 16 Feb, 2012 [facility] [address] [id number] [address] [place] [address], [place] [id number] 15 Feb, 2012 [facility] [address] [id number] [address] [place] [address], [place] [address] Feb, [facility] [address] [id number] [address] [place] [address], [place] [address] Jan, [facility] [address] [id number] [address] [place] [address], [place] [address] Jan, [facility] [address] [id number] [address] [place] [address], [place] [address] Jan, [facility] [address] [id number] [address] [place] [address], [place] [address] Jan, [facility] [address] [id number] [address] [place] [address], [place] [address] Jan, [facility] [address] [id number] [address] [place] [address], [place] [address] Jan, [facility] [address] [id number] [address] [place] [address], [place] [address] Dec, [facility] [address] [id number] [address] [place] [address], [place] [address] Dec, [facility] [address] [id number] [address] [place] [address], [place] [address] Dec, [facility] [address] [id number] [address] [place] [address], [place] [id number] November, [facility] [address] [id number] [address] [place] [address], [place] [address] November, [facility] [address] [id number] [address] [place] [address], [place] [address] November, [facility] [address] [id number] [address] [place] [address], [place] [address] November, [facility] [address] [id number] [address] [place] [address], [place] [address] Oct, [facility] [address] [id number] [address] [place] [address], [place] [address] Oct, [facility] [address] [id number] [address] [place] [address], [place] [address] Oct, [facility] [address] [id number] [address] [place] [address], [place] [address] Sep, [facility] [address] [id number] [address] [place] [address], [place] [id number] Sep, [facility] [address] [id number] [address] [place] [address], [place] [address] Aug, [facility] [address] [id number] [address] [place] [address], [place] [id number] Aug, [facility] [address] [id number] [address] [place] [address], [place] [id number] Aug, [facility] [address] [id number] [address] [place] [address], [place] [address] Aug, [facility] [address] [id number] [address] [place] [address], [place] [id number] Jul, [facility] [address] [id number] [address] [place] [address], [place] [id number] Jul, [facility] [address] [id number] [address] [place] [address], [place] [address] Jul, [facility] [address] [id number] [address] [place] [address], [place] [address] Jul, [facility] [address] [id number] [address] [place] [address], [place] [id number] Jul, [facility] [address] [id number] [address] [place] [address], [place] [address] Jul, [facility] [address] [id number] [address] [place] [address], [place] [address] Jul, [facility] [address] [id number] [address] [place] [address], [place] [address] Jul, [facility] [address] [id number] [address] [place] [address], [place] [address] Jun, [facility] [address] [id number] [address] [place] [address], [place] [address] Jun, [facility] [address] [id number] [address] [place] [address], [place] [address] Jun, [facility] [address] [id number] [address] [place] [address], [place] [id number] 08 Jun, 2011 [facility] [address] [id number] [address] [place] [address], [place] [id number] Jun, [facility] [address] [id number] [address] [place] [address], [place] [address] May, [facility] [address] [id number] [address] [place] [address], [place] [address] May, [facility] [address] [id number] [address] [place] [address], [place] [address] May, [facility] [address] [id number] [address] [place] [address], [place] [address] May, [facility] [address] [id number] [address] [place] [address], [place] [address] May, [facility] [address] [id number] [address] [place] [address], [place] [address] May, [facility] [address] [id number] [address] [place] [address], [place] [address] Apr, [facility] [address] [id number] [address] [place] [address], [place] [address] Apr, [facility] [address] [id number] [address] [place] [address], [place] [address] Apr, [facility] [address] [id number] [address] [place] [address], [place] [id number] Feb, [facility] [address] [id number] [address] [place] [address], [place] [address] Feb, [facility] [address] [id number] [address] [place] [address] [address] Oct, [facility] [address] [id number] [address] [place] [id number] Jul, [facility] [address] [id number] [address] [place] [id number] Jul, [facility] [address] [id number] [address] [place] [id number] Jun, [facility] [address] [id number] [address] [place] [id number] May, [facility] [address] [id number] [address] [place] [id number] May, [facility] [address] [id number] [address] [place] [id number] May, [facility] [address] [id number] [address] [place] [id number] Apr, [facility] [address] [id number] [address] [place] [id number] Jan, [facility] [address] [id number] [address] [place] [id number] November, IMMUNIZATIONS No Known Immunizations SOCIAL HISTORY Never Assessed REASON FOR VISIT PLAN OF CARE VITAL SIGNS Height 70 in 2013-07-20 Weight 205 lbs 2013-07-20 Temperature 98 degrees Fahrenheit 2013-07-20 Heart Rate 70 bpm 2013-07-20 Respiratory Rate 16 2013-07-20 Blood pressure systolic 138 mmHg 2013-07-20 Blood pressure diastolic 80 mmHg 2013-07-20 MEDICATIONS Unknown Medications RESULTS No Results PROCEDURES [...]
[2020-01-31 09:43] LABS: ACETAMINOPHEN < 10 UG/ML (10-30); ALANINE AMINOTRANSFERASE 18 U/L (0-55); CREATINE KINASE 56 U/L (29-168); MAGNESIUM 2.1 MG/DL (1.6-2.4)
--- OUTSIDE RECORDS SUMMARY | 2020-01-31 09:43 | XMS REPORT ---
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 Name Role Phone LINDY BRISENO Unavailable PROBLEMS Type Condition ICD9-CM Code XUD53-PH Code Onset Dates Condition S tatus SNOMED Code Problem GERD (gastroesophageal reflux disease) K21.9 Active 941930938 Problem Hypothyroidism E03.9 Active 28190 008 Problem Schizo affective schizophrenia F25.0 Active 671816803 Problem Depression F32.9 Active 90441546 Problem Osteoarthritis M19.90 Active 74425 5006 Problem Essential hypertension I10 Active 54322827 Problem Bilateral carotid artery disease I77.9 Active 421405644 Problem Low back pain, unspecified b ack pain laterality, unspecified chronicity, with sciatica presence unspecified M54.5 Active 970534790 Problem Vitamin D deficiency E55.9 Active 72554645 Problem Iron deficiency anemia, unspecified iron deficiency an emia type D50.9 Active 06491374 Problem Secondary hyperparathyroidism, not elsewhere classified E21.1 Active 59012289 Problem Lumbago with sciatica, right side M54.41 Active [id number] Problem Stage 3 chronic kidney disease N18.3 Active 403346997 Problem Other chronic pain G89.29 Active 8 0723824 Problem Fibromyalgia M79.7 Active 1195221 05 Problem Anxiety F41.9 Active 91630503 Problem Sensory loss R20.0 Active 7934805 9 Problem Idiopathic peripheral neuropathy G60.9 Active 99612137 Problem Acquired hypothyroidism E03.9 Active 680575373 Problem Lumbago with sciatica, left side M54.42 Active [id number] ALLERGIES No Information ENCOUNTERS Encounter Location Date Diagnosis [facility] [address] [id number] [place] [address] Sep, [facility] [address] [address] Aug, Osteoarthritis M19.90 [place] [address] [address] Jul, Osteoarthritis M19.90 [facility] [address] [address] Jun, Osteoarthritis M19.90 [facility] [address] [facility] [id number] [address] [place] [address] Jun, Herpes zoster without compli cation B02.9 [place] [address] [address] May, Osteoarthritis M19.90 [place] [address] [address] May, [place] [address] [address] Apr, [place] [address] [address] Mar, Osteoarthritis M19.90 [place] [address] [address] Mar, [place] [address] [address] Feb, Lumbago with sciatica, left side M54.42 ; Lumbago with sciatica, right side M54.41 and Other chronic pain G89.29 [place] [address] [address] Feb, Encounter for Medicare annual wellness e xam Z00.00 ; Schizo affective schizophrenia F25.0 ; Essential hypertension I10 ; GERD (gastroesophageal reflux disease) K21.9 ; Secondary hyperparathyroidism, not elsewhere classified E21.1 ; Idiopathic peripheral neuropathy G60.9 ; Stage 3 chronic kidney disease N18.3 ; Acquired hypothyroidism E03.9 ; Bilateral carotid artery disease I77.9 and Hypothyroidism E03.9 [place] [address] [address] Feb, Osteoarthritis M19.90 [facility] [address] [place] [id number] [place] [address] Jan, Osteoarthritis M19.90 [facility] [address] [address] Jan, Osteoarthritis M19.90 [facility] [address] [address] Dec, Acquired hypothyroidism E03.9 [facility] [address] [address] Dec, Fibromyalgia M79.7 ; Hypothyroidism E03. 9 ; Essential hypertension I10 and Sensory loss R20.0 [address] [place] [address] November, Osteoarthritis M19.90 [facility] [address] [address] Oct, Osteoarthritis M19.90 [facility] [address] [place] [id number] [place] [address] Oct, Sore throat J02.9 and Acute nasopharyngitis J00 [facility] [address] [place] [id number] [place] [address] Sep, Osteoarthritis M19.90 [facility] [address] [place] [id number] [address] [place] [address] Sep, Acute non-recurrent maxillar y sinusitis J01.00 [facility] [address] [place] [id number] [address] [place] [address] Aug, Acute non-recurrent pansinus itis J01.40 [facility] [address] [address] Jul, Osteoarthritis M19.90 [facility] [address] [address] Jul, [facility] [address] [address] 18 Apr, 2018 Osteoarthritis M19.90 [facility] [address] [address] 08 Apr, 2018 Fibromyalgia M79.7 ; Essential hypertens ion I10 ; Encounter for immunization Z23 ; Stage 3 chronic kidney disease N18.3 and Depression F32.9 [facility] [address] [address] 12 Dec, 2017 Fibromyalgia M79.7 ; Osteoarthritis M19. 90 and Encounter for medication management Z79.899 [facility] [address] [facility] [id number] [address] [place] [address] November, Nausea and vomiting, intract ability of vomiting not specified, unspecified vomiting type R11.2 and Dizziness R42 [facility] [address] [address] November, Fibromyalgia M79.7 [place] [address] [address] November, Medicare annual wellness visit, initial Z00.00 ; Anxiety F41.9 ; Depression F32.9 ; Stage 3 chronic kidney disease N18.3 ; Fibromyalgia M79.7 ; Essential hypertension I10 ; Secondary hyperparathyroidism, not elsewhere classified E21.1 ; Osteoarthritis M19.90 ; Hypothyroidism E03.9 and Encounter for immunization Z23 [facility] [address] [address] Oct, [place] [address] [address] Oct, Sebaceous cyst L72.3 [place] [address] [address] Sep, Low back pain, unspecified back pain lat erality, unspecified chronicity, with sciatica presence unspecified M54.5 and Secondary hyperparathyroidism, not elsewhere classified E21.1 [place] [address] [address] Sep, Fibromyalgia M79.7 [facility] [address] [address] Sep, Fibromyalgia M79.7 ; Plantar fasciitis, bilateral M72.2 ; Essential hypertension I10 ; Depression F32.9 and Epidermoid cyst L72.0 [place] [address] [address] Jul, [place] [address] [address] Jul, Fibromyalgia M79.7 ; Iron deficiency ane daniella, unspecified iron deficiency anemia type D50.9 and Acute nasopharyngitis J00 [facility] [address] [facility] [id number] [address] [place] [address] Jun, Sore throat J02.9 and Acute serous otitis media of left ear, recurrence not specified H65.02 [place] [address] [address] Jun, Hypothyroidism E03.9 [place] [address] [address] Jun, [place] [address] [address] Jun, Hypothyroidism E03.9 ; Essential hyperte nsion I10 and Osteoarthritis M19.90 [place] [address] [address] May, [place] [address] [address] May, [place] [address] [address] Feb, [place] [address] [address] Feb, Leonela-menopausal N95.1 and Tobacco use Z7 2.0 [place] [address] [address] Jan, [place] [address] [address] Jan, Osteoarthritis M19.90 ; Bilateral caroti d artery disease I77.9 ; Raynauds syndrome I73.00 ; Essential hypertension I10 ; Allergic rhinitis J30.9 ; Stage 3 chronic kidney disease N18.3 ; Fibromyalgia M79.7 ; Hypothyroidism E03.9 ; GERD (gastroesophageal reflux disease) K21.9 and Vitamin D deficiency E55.9 [place] [address] [address] Dec, Raynauds syndrome I73.00 ; Plantar fasci al fibromatosis M72.2 ; Osteoarthritis M19.90 and Fibromyalgia M79.7 [place] [address] [address] Dec, [place] [address] [address] Dec, [place] [address] [address] Oct, Function kidney decreased N28.9 [facility] [address] [id number] Oct, Dental examination Z01.20 [place] [address] [address] Oct, Essential hypertension I10 and Function kidney decreased N28.9 [facility] [address] [id number] Oct, Dental examination Z01.20 [facility] [address] [address] Oct, [place] [address] [address] Sep, Other specified disorders involving the immune mechanism D89.89 and Schizo affective schizophrenia F25.0 [place] [address] [address] Sep, Schizo affective schizophrenia F25.0 [place] [address] [address] 16 Sep, 2016 Eustachian tube dysfunction, bilateral H 69.83 [place] [address] [address] 15 Sep, 2016 [facility] [address] [address] 14 Sep, 2016 [facility] [address] [address] 14 Sep, 2016 [place] [address] [address] 13 Sep, 2016 Eustachian tube dysfunction, bilateral H 69.83 [place] [address] [address] 09 Sep, 2016 Allergic rhinitis J30.9 ; Essential hype rtension I10 ; Hypothyroidism E03.9 and Schizo affective schizophrenia F25.0 [place] [address] [address] Jul, Eustachian tube dysfunction, bilateral H 69.83 and Visit for TB skin test Z11.1 [facility] [address] [facility] [id number] [address] [place] [address] Jul, Subacute pansinusitis J01.40 [place] [address] [address] Jun, Schizo affective schizophrenia F25.0 ; D epression F32.9 ; Allergic rhinitis J30.9 ; Raynauds syndrome I73.00 ; Essential hypertension I10 ; Slow transit constipation K59.01 ; GERD (gastroesophageal reflux disease) K21.9 ; Hypothyroidism E03.9 ; Nicotine addiction F17.200 ; Other viral agents as the cause of diseases classified elsewhere B97.89 ; Acute upper respiratory infection, unspecified J06.9 and Osteoarthritis M19.90 [place] [address] [address] Jun, Allergic rhinitis J30.9 and GERD (gastro esophageal reflux disease) K21.9 [place] [address] [address] May, [facility] [address] [address] Mar, Schizo affective schizophrenia F25.0 [facility] [address] [address] Mar, Schizo affective schizophrenia F25.0 [facility] [address] [address] 15 Mar, 2016 Schizo affective schizophrenia F25.0 [place] [address] [address] Mar, Acute non-recurrent maxillary sinusitis J01.00 [place] [address] [address] Feb, Schizo affective schizophrenia F25.0 [place] [address] [address] Feb, Contact dermatitis and eczema L25.9 [place] [address] [address] Jan, [place] [address] [address] Jan, Schizo affective schizophrenia F25.0 ; S low transit constipation K59.01 ; Essential hypertension I10 ; GERD (gastroesophageal reflux disease) K21.9 ; Hypothyroidism E03.9 ; Osteoarthritis M19.90 ; Low back pain, unspecified back pain laterality, unspecified chronicity, with sciatica presence unspecified M54.5 and Bilateral carotid artery disease I77.9 [facility] [address] [address] Oct, [place] [address] [address] Sep, Hypothyroid E03.9 [facility] [address] [address] Sep, Schizo affective schizophrenia F25.0 ; D epression F32.9 ; Anxiety F41.9 ; Allergic rhinitis J30.9 ; Raynauds syndrome I73.00 ; Insomnia G47.00 ; Essential hypertension I10 ; GERD (gastroesophageal reflux disease) K21.9 ; Hypothyroidism E03.9 and Vitamin D deficiency E55.9 [facility] [address] [address] Sep, [place] [address] [address] Sep, [place] [address] [address] Aug, Allergic rhinitis J30.9 ; Depression F32 .9 ; Anxiety F41.9 ; Raynauds syndrome I73.00 ; Insomnia G47.00 and GERD (gastroesophageal reflux disease) K21.9 [place] [address] [address] Aug, MONICA (secretory otitis media) H65.90 and Raynauds syndrome I73.00 [facility] [address] [facility] [id number] [address] [place] [address] Jul, Acute otitis externa of both ears, unspecified type H60.503 [place] [address] [address] Jun, [place] [address] [address] Jun, Essential hypertension I10 ; Allergic rh initis J30.9 ; Hypothyroidism E03.9 and Osteoarthritis M19.90 [place] [address] [address] Jun, Routine adult health maintenance Z00.00 ; Hypothyroidism E03.9 ; Essential hypertension I10 ; Insomnia G47.00 ; Nicotine addiction F17.200 ; Raynauds syndrome I73.00 ; GERD (gastroesophageal reflux disease) K21.9 ; Allergic rhinitis J30.9 ; Anxiety F41.9 ; Depression F32.9 and Schizo affective schizophrenia F25.0 [place] [address] [place] [id number] [place] [address] May, Upper respiratory tract infection, unspe cified type J06.9 [facility] [address] [id number] [place] [address] 29 Mar, 2015 [facility] [place] [address] [id number] [place] [id number] Mar, [facility] [address] [place] [id number] [place] [address] Mar, [facility] [address] [place] [id number] [place] [address] Mar, [facility] [address] [place] [id number] [place] [address] Feb, Jaw pain 784.92 and Environmental and se asonal allergies 477.8 [facility] [address] [place] [id number] [place] [address] Feb, [facility] [address] [place] [id number] [place] [address] Oct, [facility] [address] [place] [id number] [place] [address] Oct, [facility] [address] [place] [id number] [place] [address] Oct, [facility] [address] [place] [id number] [place] [address] Oct, [facility] [address] [place] [id number] [place] [address] Sep, [facility] [address] [place] [id number] [place] [address] Sep, [facility] [address] [place] [id number] [place] [address] Jul, [facility] [address] [place] [id number] [place] [address] Jul, [facility] [address] [place] [id number] [place] [address] Jul, [facility] [address] [id number] [place] [address] Jul, [facility] [address] [id number] [place] [address] Jul, [facility] [address] [id number] [place] [address] Jul, [facility] [address] [id number] [place] [address] Jul, [facility] [address] [id number] [place] [address] Jun, [facility] [address] [id number] [place] [address] Jun, [facility] [address] [id number] [place] [address] Jun, [facility] [address] [id number] [place] [address] 18 Jun, 2014 [facility] [address] [id number] [place] [address] Jun, [facility] [address] [id number] [place] [address] Jun, [facility] [address] [id number] [place] [address] 16 Jun, 2014 [facility] [address] [id number] [place] [address] 16 Jun, 2014 [facility] [address] [id number] [place] [address] 30 Apr, 2014 [facility] [address] [id number] [place] [address] 30 Apr, 2014 [facility] [address] [place] [id number] [place] [address] 17 Mar, 2014 [facility] [address] [id number] [place] [address] 17 Mar, 2014 [facility] [address] [id number] [place] [address] Mar, [facility] [address] [facility] [id number] [place] [address] Mar, [facility] [address] [facility] [id number] [place] [address] Jan, [facility] [address] [id number] [place] [address] Jan, [facility] [address] [id number] [place] [address] Oct, [facility] [address] [facility] [id number] [place] [address] Oct, [facility] [address] [id number] [place] [address] Sep, [facility] [address] [id number] [place] [address] Sep, [facility] [address] [id number] [place] [address] Sep, [facility] [address] [id number] [place] [address] Sep, [facility] [address] [id number] [place] [address] Sep, [facility] [address] [id number] [place] [address] Sep, [facility] [address] [id number] [place] [address] Aug, [facility] [address] [id number] [place] [address] Aug, [facility] [address] [id number] [place] [address] Jul, [facility] [address] [id number] [place] [address] Jul, [facility] [address] [id number] [place] [address] Jul, [facility] [address] [id number] [place] [address] Jul, [facility] [address] [id number] [place] [address] Jun, [facility] [address] [id number] [place] [address] Jun, [facility] [address] [id number] [place] [address] May, [facility] [address] [id number] [place] [address] May, [facility] [address] [id number] [place] [address] Apr, [facility] [address] [id number] [place] [address] Apr, [facility] [address] [id number] [place] [address] Apr, [facility] [address] [id number] [place] [address] Apr, [facility] [address] [id number] [place] [address] Apr, [facility] [address] [id number] [place] [address] Apr, [facility] [address] [id number] [place] [address] Mar, [facility] [address] [id number] [place] [address] 12 Mar, 2013 [facility] [address] [id number] [place] [address] 09 Mar, 2012 [facility] [address] [id number] [place] [address] 05 Mar, 2013 [facility] [address] [id number] [place] [address] 05 Mar, 2012 [facility] [address] [id number] [place] [address] Feb, [facility] [address] [id number] [place] [address] Feb, [facility] [address] [facility] [id number] [facility] [place] [address] Feb, [facility] [address] [facility] [id number] [place] [address] Feb, [facility] [address] [id number] [facility] [place] [address] Jan, [facility] [address] [facility] [id number] [facility] [place] [address] Jan, [facility] [address] [id number] [place] [address] 16 Jan, 2013 [facility] [address] [id number] [place] [address] Jan, [facility] [address] [id number] [place] [address] Jan, [facility] [address] [id number] [place] [address] Jan, [facility] [address] [id number] [place] [address] Dec, [facility] [address] [id number] [place] [address] Dec, [facility] [address] [id number] [place] [address] Dec, [facility] [address] [id number] [place] [address] 14 Dec, 2012 [facility] [address] [facility] [id number] [place] [address] Dec, [facility] [address] [id number] [place] [address] Dec, [facility] [address] [id number] [place] [address] Dec, [facility] [address] [id number] [place] [address] Dec, [facility] [address] [id number] [place] [address] Dec, [facility] [address] [id number] [place] [address] Dec, [facility] [address] [id number] [place] [address] November, [facility] [address] [id number] [place] [address] November, [facility] [address] [id number] [place] [address] November, [facility] [address] [id number] [place] [address] November, [facility] [address] [id number] [place] [address] November, [facility] [address] [id number] [place] [address] Oct, [facility] [address] [id number] [place] [address] Oct, [facility] [address] [id number] [place] [address] Oct, [facility] [address] [id number] [place] [address] Oct, [facility] [address] [id number] [place] [address] Oct, [facility] [address] [id number] [place], [place] [address] Sep, [facility] [address] [id number] [place] [address] Sep, [facility] [address] [id number] [place] [address] Sep, [facility] [address] [id number] [place] [address] Sep, [facility] [address] [id number] [place] [address] 26 Aug, 2012 [facility] [address] [id number] [place] [address] Aug, [facility] [address] [id number] [place] [address] 18 Aug, 2012 [facility] [address] [id number] [place] [address] 15 Aug, 2012 [facility] [address] [id number] [place] [address] Jun, [facility] [address] [id number] [place] [address] Jun, [facility] [id number] [place] [address] Jun, [facility] [id number] [place] [address] Jun, [facility] [id number] [place] [address] Jun, [facility] [address] [id number] [place] [address] Jun, [facility] [id number] [place] [address] Jun, [facility] [id number] [place] [address] Jun, [facility] [address] [id number] [place] [address] Jun, [facility] [address] [id number] [place] [address] Jun, [facility] [id number] [place] [address] May, [facility] [address] [id number] [place] [address] May, [facility] [id number] [place] [address] May, [facility] [address] [id number] [place] [address] May, [facility] [address] [id number] [place] [address] May, [facility] [address] [id number] [place] [address] May, [facility] [address] [id number] [place] [address] May, [facility] [address] [id number] [place] [address] May, [facility] [address] [id number] [place] [address] May, [facility] [address] [id number] [place] [address] Apr, [facility] [address] [id number] [place] [address] 30 Apr, 2012 [facility] [address] [id number] [place] [address] Apr, [facility] [address] [id number] [place] [address] Apr, [facility] [address] [id number] [place] [address] Apr, [facility] [address] [id number] [place] [address] 18 Mar, 2012 [facility] [address] [id number] [place] [address] 17 Mar, 2012 [facility] [address] [id number] [place] [address] 07 Mar, 2012 [facility] [address] [id number] [place] [address] 27 Feb, 2012 [facility] [address] [id number] [place] [address] Feb, [facility] [address] [id number] [facility] [place] [address] Feb, [facility] [address] [facility] [id number] [facility] [place] [address] Feb, [facility] [address] [id number] [place] [address] Jan, [facility] [address] [id number] [place] [address] Jan, [facility] [address] [id number] [place] [address] Jan, [facility] [address] [id number] [facility] [place] [address] Jan, [facility] [address] [id number] [place] [address] Jan, [facility] [address] [id number] [place] [address] Jan, [facility] [address] [id number] [place] [address] Dec, [facility] [address] [id number] [place] [address] Dec, [facility] [address] [id number] [place] [address] Dec, [facility] [address] [id number] [place] [address] November, [facility] [address] [id number] [place] [address] November, [facility] [address] [id number] [place] [address] November, [facility] [address] [id number] [place] [address] November, [facility] [address] [id number] [place] [address] Oct, [facility] [address] [id number] [place] [address] Oct, [facility] [address] [id number] [place] [address] Oct, [facility] [address] [id number] [place] [address] Sep, [facility] [address] [id number] [place] [address] Sep, [facility] [address] [id number] [place] [address] Aug, [facility] [address] [id number] [place] [address] Aug, [facility] [address] [id number] [place] [address] Aug, [facility] [address] [id number] [place] [address] Aug, [facility] [id number] [place] [address] Jul, [facility] [address] [id number] [place] [address] Jul, [facility] [address] [id number] [place] [address] Jul, [facility] [address] [id number] [place] [address] Jul, [facility] [address] [id number] [place] [address] Jul, [facility] [address] [id number] [place] [address] Jul, [facility] [address] [id number] [place] [address] Jul, [facility] [id number] [place] [address] Jul, [facility] [address] [id number] [place] [address] Jun, [facility] [address] [id number] [place] [address] Jun, [facility] [address] [id number] [place] [address] Jun, [facility] [address] [id number] [place] [address] Jun, [facility] [address] [id number] [place] [address] Jun, [facility] [address] [id number] [place] [address] May, [facility] [address] [id number] [place] [address] May, [facility] [address] [id number] [place] [address] May, [facility] [address] [id number] [place] [address] May, [facility] [address] [id number] [place] [address] May, [facility] [address] [id number] [place] [address] May, [facility] [address] [id number] [place] [address] Apr, [facility] [address] [id number] [place] [address] Apr, [facility] [address] [id number] [place] [address] Apr, [facility] [address] [id number] [place] [address] Feb, [facility] [address] [id number] [place] [address] Feb, [facility] [address] [id number] [place] [address] Oct, [facility] [address] [id number] [place] [address] Jul, [facility] [address] [id number] [place] [address] Jul, [facility] [address] [id number] [place] [address] Jun, [facility] [address] [id number] [place] [address] May, [facility] [id number] [place] [address] May, [facility] [id number] [place] [address] May, [facility] [id number] [place] [address] Apr, [facility] [address] [id number] [place] [address] Jan, [facility] [address] [id number] [place] [address] November, IMMUNIZATIONS No Known Immunizations SOCIAL HISTORY [...]
--- OUTSIDE RECORDS SUMMARY | 2020-01-31 09:43 | XMS REPORT ---
Author Author Ivet BRISENO Y Organization [facility] [place] Address [address] [place] [address] Care Team Providers Care Supervisor Final Name Role Phone LINDY BRISENO Unavailable PROBLEMS Type Condition ICD9-CM Code [id number] Code Onset Dates Condition S tatus SNOMED Code Problem Hypothyroidism E03.9 Active 06344 008 Problem GERD (gastroesophageal reflux disease) K21.9 Active 625928975 Problem Essential hypertension I10 Active 33288348 Problem Anxiety F41.9 Active 37107076 Problem Osteoarthritis M19.90 Active 01072 5006 Problem Schizo affective schizophrenia F25.0 Active 530818117 Problem Bilateral carotid artery disease I77.9 Active 264962201 Problem Low back pain, unspecified b ack pain laterality, unspecified chronicity, with sciatica presence unspecified M54.5 Active 057749325 Problem Vitamin D deficiency E55.9 Active 58983721 Problem Iron deficiency anemia, unspecified iron deficiency an emia type D50.9 Active 45407698 Problem Secondary hyperparathyroidism, not elsewhere classified E21.1 Active 73179702 Problem Lumbago with sciatica, right side M54.41 Active [id number] Problem Fibromyalgia M79.7 Active 6434052 05 Problem Other chronic pain G89.29 Active 8 9144255 Problem Stage 3 chronic kidney disease N18.3 Active 428774203 Problem Depression F32.9 Active 05013246 Problem Sensory loss R20.0 Active 2606143 9 Problem Idiopathic peripheral neuropathy G60.9 Active 15145169 Problem Acquired hypothyroidism E03.9 Active 915304182 Problem Lumbago with sciatica, left side M54.42 Active [id number] ALLERGIES No Information ENCOUNTERS Encounter Location Date Diagnosis [facility] [place] [address] [id number] [place] [address] Aug, Osteoarthritis M19.90 [facility] [place] [address] [address] Jul, Osteoarthritis M19.90 [facility] [place] [address] [address] Jun, Osteoarthritis M19.90 [facility] [address] [facility] [id number] [address] [place] [address] Jun, Herpes zoster without compli cation B02.9 [place] [address] [address] May, Osteoarthritis M19.90 [place] [address] [address] May, [place] [address] [address] Apr, [place] [address] [address] Mar, Osteoarthritis M19.90 [facility] [place] [address] [address] Mar, [place] [address] [address] Feb, Lumbago with sciatica, left side M54.42 ; Lumbago with sciatica, right side M54.41 and Other chronic pain G89.29 [place] [address] [address] Feb, Encounter for Medicare annual wellness e xam Z00.00 ; Schizo affective schizophrenia F25.0 ; Essential hypertension I10 ; GERD (gastroesophageal reflux disease) K21.9 ; Secondary hyperparathyroidism, not elsewhere classified E21.1 ; Idiopathic peripheral neuropathy G60.9 ; Stage 3 chronic kidney disease N18.3 ; Acquired hypothyroidism E03.9 ; Bilateral carotid artery disease I77.9 and Hypothyroidism E03.9 [place] [address] [address] Feb, Osteoarthritis M19.90 [facility] [place] [address] [address] Jan, Osteoarthritis M19.90 [facility] [place] [address] [place] [id number] [place] [address] Jan, Osteoarthritis M19.90 [facility] [place] [address] [place] [address] [id number] [place] [address] Dec, Acquired hypothyroidism E03.9 [facility] [place] [address] [address] Dec, Fibromyalgia M79.7 ; Hypothyroidism E03. 9 ; Essential hypertension I10 and Sensory loss R20.0 [place] [address] [place] [address] November, Osteoarthritis M19.90 [facility] [place] [address] [address] [id number] [place] [address] Oct, Osteoarthritis M19.90 [facility] [address] [place] [id number] [place] [address] Oct, Sore throat J02.9 and Acute nasopharyngitis J00 [facility] [place] [address] [place] [address] [id number] [place] [address] Sep, Osteoarthritis M19.90 [facility] [address] [place] [address] Sep, Acute non-recurrent maxillar y sinusitis J01.00 [facility] [address] [place] [id number] [address] [place] [address] Aug, Acute non-recurrent pansinus itis J01.40 [facility] [place] [address] [address] [id number] [place] [address] Jul, Osteoarthritis M19.90 [facility] [place] [address] [place] [id number] [place] [address] Jul, [facility] [place] [address] [place] [address] [id number] [place] [address] Apr, Osteoarthritis M19.90 [facility] [place] [address] [address] 08 Apr, 2018 Fibromyalgia M79.7 ; Essential hypertens ion I10 ; Encounter for immunization Z23 ; Stage 3 chronic kidney disease N18.3 and Depression F32.9 [facility] [place] [address] [address] 12 Dec, 2017 Fibromyalgia M79.7 ; Osteoarthritis M19. 90 and Encounter for medication management Z79.899 [facility] [address] [facility] [id number] [address] [place] [address] November, Nausea and vomiting, intract ability of vomiting not specified, unspecified vomiting type R11.2 and Dizziness R42 [facility] [place] [address] [address] November, Fibromyalgia M79.7 [facility] [place] [address] [address] November, Medicare annual wellness visit, initial Z00.00 ; Anxiety F41.9 ; Depression F32.9 ; Stage 3 chronic kidney disease N18.3 ; Fibromyalgia M79.7 ; Essential hypertension I10 ; Secondary hyperparathyroidism, not elsewhere classified E21.1 ; Osteoarthritis M19.90 ; Hypothyroidism E03.9 and Encounter for immunization Z23 [facility] [place] [address] [address] Oct, [place] [address] [address] Oct, Sebaceous cyst L72.3 [place] [address] [address] Sep, Low back pain, unspecified back pain lat erality, unspecified chronicity, with sciatica presence unspecified M54.5 and Secondary hyperparathyroidism, not elsewhere classified E21.1 [facility] [place] [address] [address] Sep, Fibromyalgia M79.7 [place] [address] [address] Sep, Fibromyalgia M79.7 ; Plantar fasciitis, bilateral M72.2 ; Essential hypertension I10 ; Depression F32.9 and Epidermoid cyst L72.0 [place] [address] [address] Jul, [place] [address] [address] Jul, Fibromyalgia M79.7 ; Iron deficiency ane daniella, unspecified iron deficiency anemia type D50.9 and Acute nasopharyngitis J00 [facility] [address] [facility] [id number] [address] [place] [address] Jun, Sore throat J02.9 and Acute serous otitis media of left ear, recurrence not specified H65.02 [place] [address] [address] Jun, Hypothyroidism E03.[address] [address] Jun, [place] [address] [address] Jun, Hypothyroidism E03.9 ; Essential hyperte nsion I10 and Osteoarthritis M19.[address] [address] May, [address] [address] May, [place] [address] [address] Feb, [address] [address] Feb, Leonela-menopausal N95.1 and Tobacco use Z7 2.0 [place] [address] [address] Jan, [address] [address] Jan, Osteoarthritis M19.90 ; Bilateral caroti d artery disease I77.9 ; Raynauds syndrome I73.00 ; Essential hypertension I10 ; Allergic rhinitis J30.9 ; Stage 3 chronic kidney disease N18.3 ; Fibromyalgia M79.7 ; Hypothyroidism E03.9 ; GERD (gastroesophageal reflux disease) K21.9 and Vitamin D deficiency E55.9 [place] [address] [address] Dec, Raynauds syndrome I73.00 ; Plantar fasci al fibromatosis M72.2 ; Osteoarthritis M19.90 and Fibromyalgia M79.7 [place] [address] [address] Dec, [address] [address] Dec, [address] [address] Oct, Function kidney decreased N28.9 [facility] [address] [place] [id number] Oct, Dental examination Z01.[address] [address] Oct, Essential hypertension I10 and Function kidney decreased N28.9 [facility] [address] [id number] Oct, Dental examination Z01.[address] [address] Oct, [address] [address] Sep, Other specified disorders involving the immune mechanism D89.89 and Schizo affective schizophrenia F25.[address] [address] Sep, Schizo affective schizophrenia F25.[address] [address] Sep, Eustachian tube dysfunction, bilateral H 69.[address] [id number] [place] [address] 15 Sep, 2016 [facility] [place] [address] [address] 14 Sep, 2016 [facility] [place] [address] [address] 14 Sep, 2016 [place] [address] [address] 13 Sep, 2016 Eustachian tube dysfunction, bilateral H 69.[address] [address] Sep, Allergic rhinitis J30.9 ; Essential hype rtension I10 ; Hypothyroidism E03.9 and Schizo affective schizophrenia F25.[address] [address] Jul, Eustachian tube dysfunction, bilateral H 69.83 and Visit for TB skin test Z11.1 [facility] [address] [facility] [id number] [address] [place] [address] Jul, Subacute pansinusitis J01.[address] [address] Jun, Schizo affective schizophrenia F25.0 ; D epression F32.9 ; Allergic rhinitis J30.9 ; Raynauds syndrome I73.00 ; Essential hypertension I10 ; Slow transit constipation K59.01 ; GERD (gastroesophageal reflux disease) K21.9 ; Hypothyroidism E03.9 ; Nicotine addiction F17.200 ; Other viral agents as the cause of diseases classified elsewhere B97.89 ; Acute upper respiratory infection, unspecified J06.9 and Osteoarthritis M19.[address] [address] Jun, Allergic rhinitis J30.9 and GERD (gastro esophageal reflux disease) K21.[address] [address] May, [address] [place] [address] Mar, Schizo affective schizophrenia F25.0 [place] [address] [address] Mar, Schizo affective schizophrenia F25.0 [place] [address] [address] 15 Mar, 2016 Schizo affective schizophrenia F25.0 [place] [address] [address] Mar, Acute non-recurrent maxillary sinusitis J01.00 [place] [address] [address] Feb, Schizo affective schizophrenia F25.0 [place] [address] [address] Feb, Contact dermatitis and eczema L25.9 [place] [address] [address] Jan, [place] [address] [address] Jan, Schizo affective schizophrenia F25.0 ; S low transit constipation K59.01 ; Essential hypertension I10 ; GERD (gastroesophageal reflux disease) K21.9 ; Hypothyroidism E03.9 ; Osteoarthritis M19.90 ; Low back pain, unspecified back pain laterality, unspecified chronicity, with sciatica presence unspecified M54.5 and Bilateral carotid artery disease I77.9 [place] [address] [address] Oct, [place] [address] [address] Sep, Hypothyroid E03.9 [place] [address] [address] Sep, Schizo affective schizophrenia F25.0 ; D epression F32.9 ; Anxiety F41.9 ; Allergic rhinitis J30.9 ; Raynauds syndrome I73.00 ; Insomnia G47.00 ; Essential hypertension I10 ; GERD (gastroesophageal reflux disease) K21.9 ; Hypothyroidism E03.9 and Vitamin D deficiency E55.9 [place] [address] [place] [id number] Sep, [facility] [place] [address] [address] Sep, [place] [address] [place] [id number] Aug, Allergic rhinitis J30.9 ; Depression F32 .9 ; Anxiety F41.9 ; Raynauds syndrome I73.00 ; Insomnia G47.00 and GERD (gastroesophageal reflux disease) K21.9 [place] [id number] Aug, MONICA (secretory otitis media) H65.90 and Raynauds syndrome I73.00 [facility] [address] [facility] [id number] [place] [address] Jul, Acute otitis externa of both ears, unspecified type H60.[address] [address] Jun, [address] [address] Jun, Essential hypertension I10 ; Allergic rh initis J30.9 ; Hypothyroidism E03.9 and Osteoarthritis M19.[address] [address] Jun, Routine adult health maintenance Z00.00 ; Hypothyroidism E03.9 ; Essential hypertension I10 ; Insomnia G47.00 ; Nicotine addiction F17.200 ; Raynauds syndrome I73.00 ; GERD (gastroesophageal reflux disease) K21.9 ; Allergic rhinitis J30.9 ; Anxiety F41.9 ; Depression F32.9 and Schizo affective schizophrenia F25.[address] [address] May, Upper respiratory tract infection, unspe cified type J06.9 [facility] [place] [address] [id number] [place] [address] 29 Mar, 2015 [facility] [address] [id number] [place] [id number] 24 Mar, 2015 [facility] [place] [address] [place] [id number] [place] [address] 19 Mar, 2015 [facility] [place] [address] [place] [address] [id number] [place] [address] Mar, [facility] [place] [address] [place] [address] [id number] [place] [address] Feb, Jaw pain 784.92 and Environmental and se asonal allergies 477.8 [facility] [place] [address] [place] [address] [id number] [place] [address] Feb, [facility] [place] [address] [place] [address] [id number] [place] [address] Oct, [facility] [place] [address] [place] [id number] [place] [address] Oct, [facility] [place] [address] [place] [address] [id number] [place] [address] Oct, [facility] [place] [address] [place] [address] [id number] [place] [address] Oct, [facility] [place] [address] [place] [address] [id number] [place] [address] Sep, [facility] [place] [address] [place] [address] [id number] [place] [address] Sep, [facility] [place] [address] [place] [id number] [place] [address] Jul, [facility] [place] [address] [place] [id number] [place] [address] Jul, [facility] [place] [address] [id number] [place] [address] Jul, [facility] [place] [id number] [place] [address] Jul, [facility] [place] [facility] [address] [id number] [place] [address] Jul, [facility] [place] [facility] [address] [id number] [place] [address] Jul, [facility] [place] [facility] [address] [id number] [place] [address] Jul, [facility] [place] [facility] [address] [id number] [place] [address] Jun, [facility] [place] [facility] [address] [id number] [place] [address] Jun, [facility] [place] [facility] [address] [id number] [place] [address] Jun, [facility] [place] [facility] [address] [id number] [place] [address] 18 Jun, 2014 [facility] [place] [facility] [address] [id number] [place] [address] Jun, [facility] [place] [facility] [address] [id number] [place] [address] Jun, [facility] [place] [facility] [address] [id number] [place] [address] 16 Jun, 2014 [facility] [place] [facility] [address] [id number] [place] [address] Jun, [facility] [place] [facility] [address] [id number] [place] [address] 30 Apr, 2014 [facility] [place] [facility] [address] [id number] [place] [address] 30 Apr, 2014 [facility] [place] [facility] [address] [id number] [place] [address] 17 Mar, 2014 [facility] [place] [facility] [address] [address] [id number] [place] [address] 17 Mar, 2014 [facility] [place] [facility] [address] [id number] [place] [address] 03 Mar, 2013 [facility] [place] [facility] [address] [id number] [place] [address] Mar, [facility] [place] [facility] [address] [facility] [id number] [place] [address] Jan, [facility] [place] [facility] [address] [facility] [id number] [place] [address] Jan, [facility] [place] [facility] [address] [id number] [place] [address] Oct, [facility] [place] [facility] [address] [id number] [place] [address] Oct, [facility] [place] [facility] [address] [facility] [id number] [place] [address] Sep, [facility] [place] [facility] [address] [id number] [place] [address] Sep, [facility] [place] [facility] [address] [id number] [place] [address] Sep, [facility] [place] [facility] [address] [id number] [place] [address] Sep, [facility] [place] [facility] [address] [id number] [place] [address] Sep, [facility] [place] [facility] [address] [id number] [place] [address] Sep, [facility] [place] [facility] [address] [id number] [place] [address] Aug, [facility] [place] [facility] [address] [id number] [place] [address] Aug, [facility] [place] [facility] [address] [id number] [place] [address] Jul, [facility] [place] [facility] [address] [id number] [place] [address] Jul, [facility] [place] [facility] [address] [id number] [place] [address] Jul, [facility] [place] [facility] [address] [id number] [place] [address] Jul, [facility] [place] [facility] [address] [id number] [place] [address] Jun, [facility] [place] [facility] [address] [id number] [place] [address] Jun, [facility] [place] [facility] [address] [id number] [place] [address] May, [facility] [place] [facility] [address] [id number] [place] [address] May, [facility] [place] [facility] [address] [id number] [place] [address] Apr, [facility] [place] [facility] [address] [id number] [place] [address] Apr, [facility] [place] [facility] [address] [id number] [place] [address] Apr, [facility] [place] [facility] [address] [id number] [place] [address] Apr, [facility] [place] [facility] [address] [id number] [place] [address] Apr, [facility] [place] [facility] [address] [id number] [place] [address] Apr, [facility] [place] [facility] [address] [id number] [place] [address] Mar, [facility] [place] [facility] [address] [id number] [place] [address] Mar, [facility] [place] [facility] [address] [id number] [place] [address] 09 Mar, 2013 [facility] [place] [facility] [address] [id number] [place] [address] 05 Mar, 2012 [facility] [place] [facility] [id number] [place] [address] 05 Mar, 2013 [facility] [place] [facility] [address] [id number] [place] [address] Feb, [facility] [place] [facility] [address] [id number] [place] [address] Feb, [facility] [place] [facility] [address] [id number] [place] [address] Feb, [facility] [place] [facility] [address] [facility] [id number] [place] [address] Feb, [facility] [place] [facility] [address] [facility] [id number] [facility] [place] [address] Jan, [facility] [place] [facility] [address] [id number] [facility] [place] [address] 17 Jan, 2013 [facility] [place] [facility] [address] [facility] [id number] [facility] [place] [address] 16 Jan, 2013 [facility] [place] [facility] [address] [id number] [place] [address] Jan, [facility] [place] [facility] [address] [id number] [place] [address] Jan, [facility] [place] [facility] [address] [id number] [place] [address] Jan, [facility] [place] [facility] [address] [id number] [place] [address] Dec, [facility] [place] [facility] [address] [id number] [place] [address] 25 Dec, 2012 [facility] [place] [facility] [address] [id number] [place] [address] Dec, [facility] [place] [facility] [address] [id number] [place] [address] 14 Dec, 2012 [facility] [place] [facility] [address] [id number] [place] [address] Dec, [facility] [place] [facility] [address] [facility] [id number] [place] [address] 12 Dec, 2012 [facility] [place] [facility] [address] [id number] [place] [address] Dec, [facility] [place] [facility] [address] [id number] [place] [address] 07 Dec, 2012 [facility] [place] [facility] [address] [id number] [place] [address] Dec, [facility] [address] [id number] [place] [address] Dec, [facility] [address] [id number] [facility] [place] [address] November, [facility] [address] [id number] [place] [address] November, [facility] [address] [id number] [place] [address] November, [facility] [address] [id number] [place] [address] November, [facility] [address] [id number] [place] [address] November, [facility] [address] [id number] [place] [address] Oct, [facility] [address] [id number] [place] [address] Oct, [facility] [address] [id number] [place] [address] Oct, [facility] [address] [id number] [place] [address] Oct, [facility] [address] [id number] [place] [address] Oct, [facility] [address] [id number] [place] [address] Sep, [facility] [address] [id number] [place] [address] Sep, [facility] [address] [id number] [place] [address] Sep, [facility] [address] [id number] [place] [address] Sep, [facility] [address] [id number] [place] [address] Aug, [facility] [address] [id number] [place] [address] 18 Aug, 2012 [facility] [address] [id number] [place] [address] 18 Aug, 2012 [facility] [address] [id number] [place] [address] 15 Aug, 2012 [facility] [address] [id number] [place] [address] Jun, [facility] [address] [id number] [place] [address] Jun, [facility] [address] [id number] [place] [address] Jun, [facility] [address] [id number] [place] [address] Jun, [facility] [address] [id number] [place] [address] Jun, [facility] [address] [id number] [place] [address] Jun, [facility] [address] [id number] [place] [address] Jun, [facility] [address] [id number] [place] [address] Jun, [facility] [address] [id number] [place] [address] Jun, [facility] [address] [id number] [place] [address] Jun, [facility] [address] [id number] [place] [address] May, [facility] [id number] [place] [address] May, [facility] [address] [id number] [place] [address] May, [facility] [id number] [place] [address] May, [facility] [address] [id number] [place] [address] 26 May, 2012 [facility] [address] [id number] [place] [address] 16 May, 2012 [facility] [address] [id number] [place] [address] 16 May, 2012 [facility] [address] [id number] [place] [address] 14 May, 2012 [facility] [address] [id number] [place] [address] 14 May, 2012 [facility] [address] [id number] [place] [address] 30 Apr, 2012 [facility] [address] [id number] [place] [address] 30 Apr, 2012 [facility] [address] [id number] [place] [address] 17 Apr, 2012 [facility] [address] [id number] [place] [address] 17 Apr, 2012 [facility] [address] [id number] [place] [address] 09 Apr, 2012 [facility] [address] [id number] [place] [address] 18 Mar, 2012 [facility] [address] [id number] [place] [address] 17 Mar, 2012 [facility] [address] [id number] [place] [address] 07 Mar, 2012 [facility] [address] [id number] [place] [address] 27 Feb, 2012 [facility] [address] [id number] [place] [address] 16 Feb, 2012 [facility] [address] [id number] [place] [address] 15 Feb, 2012 [facility] [address] [id number] [place] [address] Feb, [facility] [address] [facility] [id number] [facility] [place] [address] Jan, [facility] [address] [id number] [place] [address] Jan, [facility] [address] [id number] [place] [address] Jan, [facility] [address] [id number] [place] [address] Jan, [facility] [address] [id number] [place] [address] Jan, [facility] [address] [id number] [place] [address] Jan, [facility] [address] [id number] [place] [address] Dec, [facility] [address] [id number] [place] [address] Dec, [facility] [address] [id number] [place] [address] Dec, [facility] [address] [id number] [place] [address] November, [facility] [address] [id number] [place] [address] November, [facility] [address] [id number] [place] [address] November, [facility] [address] [id number] [place] [address] November, [facility] [address] [id number] [place] [address] Oct, [facility] [address] [id number] [place] [address] Oct, [facility] [address] [id number] [place] [address] Oct, [facility] [address] [id number] [place] [address] Sep, [facility] [address] [id number] [place] [address] Sep, [facility] [address] [id number] [place] [address] Aug, [facility] [address] [id number] [place] [address] Aug, [facility] [address] [id number] [place] [address] Aug, [facility] [address] [id number] [place] [address] Aug, [facility] [address] [id number] [place] [address] Jul, [facility] [address] [id number] [place] [address] Jul, [facility] [address] [id number] [place] [address] Jul, [facility] [address] [id number] [place] [address] Jul, [facility] [address] [id number] [place] [address] Jul, [facility] [id number] [place] [address] Jul, [facility] [address] [id number] [place] [address] Jul, [facility] [address] [id number] [place] [address] Jul, [facility] [address] [id number] [place] [address] Jun, [facility] [address] [id number] [place] [address] Jun, [facility] [address] [id number] [place] [address] 15 Jun, 2011 [facility] [address] [id number] [place] [address] Jun, [facility] [address] [id number] [place] [address] Jun, [facility] [address] [id number] [place] [address] May, [facility] [address] [id number] [place] [address] May, [facility] [address] [id number] [place] [address] May, [facility] [address] [id number] [place] [address] May, [facility] [address] [id number] [place] [address] May, [facility] [address] [id number] [place] [address] May, [facility] [address] [id number] [place] [address] Apr, [facility] [address] [id number] [place] [address] Apr, [facility] [address] [id number] [place] [address] Apr, [facility] [address] [id number] [place] [address] Feb, [facility] [address] [id number] [place] [address] Feb, [facility] [address] [id number] [place] [address] Oct, [facility] [address] [id number] [place] [address] Jul, [facility] [address] [id number] [place] [address] Jul, [facility] [address] [id number] [place] [address] Jun, [facility] [place] [address] [id number] [place] [address] May, [facility] [place] [address] [id number] [place] [address] May, [facility] [place] [address] [id number] [place] [address] May, [facility] [place] [address] [id number] [place] [address] Apr, [facility] [place] [address] [id number] [place] [address] Jan, [facility] [place] [address] [id number] [place] [address] November, IMMUNIZATIONS No Known Immunizations SOCIAL HISTORY Never Assessed REASON FOR VISIT PLAN OF CARE VITAL SIGNS Height 70 in 2013-09-07 Weight 194 lbs 2013-09-07 Temperature 98.2 degrees Fahrenheit 2013-09-07 Heart Rate 64 bpm 2013-09-07 Respiratory Rate 18 2013-09-07 Blood pressure systolic 124 mmHg 2013-09-07 Blood pressure diastolic 72 mmHg 2013-09-07 MEDICATIONS Unknown Medications RESULTS No Results PROCEDURES [...]
--- OUTSIDE RECORDS SUMMARY | 2020-01-31 09:43 | XMS REPORT ---
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 Name Role Phone LINDY BRISENO Unavailable PROBLEMS Type Condition ICD9-CM Code DIR53-BM Code Onset Dates Condition S tatus SNOMED Code Problem Hypothyroidism E03.9 Active 92476 008 Problem GERD (gastroesophageal reflux disease) K21.9 Active 636797082 Problem Essential hypertension I10 Active 30512045 Problem Anxiety F41.9 Active 16432241 Problem Osteoarthritis M19.90 Active 20228 5006 Problem Schizo affective schizophrenia F25.0 Active 239648089 Problem Bilateral carotid artery disease I77.9 Active 888557168 Problem Low back pain, unspecified b ack pain laterality, unspecified chronicity, with sciatica presence unspecified M54.5 Active 195068071 Problem Vitamin D deficiency E55.9 Active 73059823 Problem Iron deficiency anemia, unspecified iron deficiency an emia type D50.9 Active 65524081 Problem Secondary hyperparathyroidism, not elsewhere classified E21.1 Active 18221887 Problem Lumbago with sciatica, right side M54.41 Active [id number] Problem Fibromyalgia M79.7 Active 6002434 05 Problem Other chronic pain G89.29 Active 8 0267279 Problem Stage 3 chronic kidney disease N18.3 Active 457690378 Problem Depression F32.9 Active 52553755 Problem Sensory loss R20.0 Active 7992581 9 Problem Idiopathic peripheral neuropathy G60.9 Active 17043766 Problem Acquired hypothyroidism E03.9 Active 074418741 Problem Lumbago with sciatica, left side M54.42 Active 664044184 ALLERGIES No Information ENCOUNTERS Encounter Location Date Diagnosis [facility] [address] [id number] [place] [address] Aug, Osteoarthritis M19.90 [facility] [address] [address] Jul, Osteoarthritis M19.90 [facility] [address] [address] Jun, Osteoarthritis M19.90 [facility] [address] [facility] [id number] [address] [place] [address] Jun, Herpes zoster without compli cation B02.9 [place] [address] [address] May, Osteoarthritis M19.90 [place] [address] [address] May, [place] [address] [address] Apr, [place] [address] [address] Mar, Osteoarthritis M19.90 [facility] [address] [address] Mar, [place] [address] [address] Feb, Lumbago with sciatica, left side M54.42 ; Lumbago with sciatica, right side M54.41 and Other chronic pain G89.29 [place] [address] [address] Feb, Encounter for Medicare annual wellness e xam Z00.00 ; Schizo affective schizophrenia F25.0 ; Essential hypertension I10 ; GERD (gastroesophageal reflux disease) K21.9 ; Secondary hyperparathyroidism, not elsewhere classified E21.1 ; Idiopathic peripheral neuropathy G60.9 ; Stage 3 chronic kidney disease N18.3 ; Acquired hypothyroidism E03.9 ; Bilateral carotid artery disease I77.9 and Hypothyroidism E03.9 [place] [address] [address] Feb, Osteoarthritis M19.90 [facility] [address] [address] Jan, Osteoarthritis M19.90 [facility] [address] [place] [id number] [place] [address] Jan, Osteoarthritis M19.90 [facility] [address] [place] [address] [id number] [place] [address] Dec, Acquired hypothyroidism E03.9 [facility] [address] [address] Dec, Fibromyalgia M79.7 ; Hypothyroidism E03. 9 ; Essential hypertension I10 and Sensory loss R20.0 [place] [address] [place] [address] November, Osteoarthritis M19.90 [facility] [address] [place] [address] [id number] [place] [address] Oct, Osteoarthritis M19.90 [facility] [address] [place] [id number] [address] [place] [address] Oct, Sore throat J02.9 and Acute nasopharyngitis J00 [facility] [address] [place] [address] [id number] [place] [address] Sep, Osteoarthritis M19.90 [facility] [address] [place] [address] Sep, Acute non-recurrent maxillar y sinusitis J01.00 [facility] [address] [place] [id number] [address] [place] [address] Aug, Acute non-recurrent pansinus itis J01.40 [facility] [address] [place] [address] [id number] [place] [address] Jul, Osteoarthritis M19.90 [facility] [address] [place] [id number] [place] [address] Jul, [facility] [address] [place] [id number] [place] [address] Apr, Osteoarthritis M19.90 [facility] [address] [address] 08 Apr, 2018 Fibromyalgia M79.7 ; Essential hypertens ion I10 ; Encounter for immunization Z23 ; Stage 3 chronic kidney disease N18.3 and Depression F32.9 [facility] [address] [address] 12 Dec, 2017 Fibromyalgia M79.7 ; Osteoarthritis M19. 90 and Encounter for medication management Z79.899 [facility] [address] [facility] [id number] [address] [place] [address] November, Nausea and vomiting, intract ability of vomiting not specified, unspecified vomiting type R11.2 and Dizziness R42 [facility] [address] [address] November, Fibromyalgia M79.7 [facility] [address] [address] November, Medicare annual wellness visit, initial Z00.00 ; Anxiety F41.9 ; Depression F32.9 ; Stage 3 chronic kidney disease N18.3 ; Fibromyalgia M79.7 ; Essential hypertension I10 ; Secondary hyperparathyroidism, not elsewhere classified E21.1 ; Osteoarthritis M19.90 ; Hypothyroidism E03.9 and Encounter for immunization Z23 [facility] [address] [address] Oct, [place] [address] [address] Oct, Sebaceous cyst L72.3 [place] [address] [address] Sep, Low back pain, unspecified back pain lat erality, unspecified chronicity, with sciatica presence unspecified M54.5 and Secondary hyperparathyroidism, not elsewhere classified E21.1 [facility] [address] [address] Sep, Fibromyalgia M79.7 [place] [address] [address] Sep, Fibromyalgia M79.7 ; Plantar fasciitis, bilateral M72.2 ; Essential hypertension I10 ; Depression F32.9 and Epidermoid cyst L72.0 [place] [address] [address] Jul, [place] [address] [address] Jul, Fibromyalgia M79.7 ; Iron deficiency ane daniella, unspecified iron deficiency anemia type D50.9 and Acute nasopharyngitis J00 [facility] [address] [facility] [id number] [address] [place] [address] Jun, Sore throat J02.9 and Acute serous otitis media of left ear, recurrence not specified H65.02 [place] [address] [address] Jun, Hypothyroidism E03.[address] [address] Jun, [place] [address] [address] Jun, Hypothyroidism E03.9 ; Essential hyperte nsion I10 and Osteoarthritis M19.[address] [address] May, [address] [address] May, [place] [address] [address] Feb, [address] [address] Feb, Leonela-menopausal N95.1 and Tobacco use Z7 2.0 [place] [address] [address] Jan, [address] [address] Jan, Osteoarthritis M19.90 ; Bilateral caroti d artery disease I77.9 ; Raynauds syndrome I73.00 ; Essential hypertension I10 ; Allergic rhinitis J30.9 ; Stage 3 chronic kidney disease N18.3 ; Fibromyalgia M79.7 ; Hypothyroidism E03.9 ; GERD (gastroesophageal reflux disease) K21.9 and Vitamin D deficiency E55.9 [place] [address] [address] Dec, Raynauds syndrome I73.00 ; Plantar fasci al fibromatosis M72.2 ; Osteoarthritis M19.90 and Fibromyalgia M79.7 [place] [address] [address] Dec, [address] [address] Dec, [address] [address] Oct, Function kidney decreased N28.9 [facility] [address] [place] [id number] Oct, Dental examination Z01.[address] [address] Oct, Essential hypertension I10 and Function kidney decreased N28.9 [facility] [address] [id number] Oct, Dental examination Z01.[address] [address] Oct, [address] [address] Sep, Other specified disorders involving the immune mechanism D89.89 and Schizo affective schizophrenia F25.[address] [address] Sep, Schizo affective schizophrenia F25.[address] [address] Sep, Eustachian tube dysfunction, bilateral H 69.[address] [id number] [place] [address] 15 Sep, 2016 [facility] [address] [address] 14 Sep, 2016 [facility] [address] [address] 14 Sep, 2016 [place] [address] [address] 13 Sep, 2016 Eustachian tube dysfunction, bilateral H 69.[address] [address] Sep, Allergic rhinitis J30.9 ; Essential hype rtension I10 ; Hypothyroidism E03.9 and Schizo affective schizophrenia F25.[address] [address] Jul, Eustachian tube dysfunction, bilateral H 69.83 and Visit for TB skin test Z11.1 [facility] [address] [facility] [id number] [address] [place] [address] Jul, Subacute pansinusitis J01.[address] [address] Jun, Schizo affective schizophrenia F25.0 ; D epression F32.9 ; Allergic rhinitis J30.9 ; Raynauds syndrome I73.00 ; Essential hypertension I10 ; Slow transit constipation K59.01 ; GERD (gastroesophageal reflux disease) K21.9 ; Hypothyroidism E03.9 ; Nicotine addiction F17.200 ; Other viral agents as the cause of diseases classified elsewhere B97.89 ; Acute upper respiratory infection, unspecified J06.9 and Osteoarthritis M19.[address] [address] Jun, Allergic rhinitis J30.9 and GERD (gastro esophageal reflux disease) K21.[address] [address] May, [address] [place] [address] Mar, Schizo affective schizophrenia F25.0 [place] [address] [address] Mar, Schizo affective schizophrenia F25.0 [place] [address] [address] 15 Mar, 2016 Schizo affective schizophrenia F25.0 [place] [address] [address] Mar, Acute non-recurrent maxillary sinusitis J01.00 [place] [address] [address] Feb, Schizo affective schizophrenia F25.0 [place] [address] [address] Feb, Contact dermatitis and eczema L25.9 [place] [address] [address] Jan, [place] [address] [address] Jan, Schizo affective schizophrenia F25.0 ; S low transit constipation K59.01 ; Essential hypertension I10 ; GERD (gastroesophageal reflux disease) K21.9 ; Hypothyroidism E03.9 ; Osteoarthritis M19.90 ; Low back pain, unspecified back pain laterality, unspecified chronicity, with sciatica presence unspecified M54.5 and Bilateral carotid artery disease I77.9 [place] [address] [address] Oct, [place] [address] [address] Sep, Hypothyroid E03.9 [place] [address] [address] Sep, Schizo affective schizophrenia F25.0 ; D epression F32.9 ; Anxiety F41.9 ; Allergic rhinitis J30.9 ; Raynauds syndrome I73.00 ; Insomnia G47.00 ; Essential hypertension I10 ; GERD (gastroesophageal reflux disease) K21.9 ; Hypothyroidism E03.9 and Vitamin D deficiency E55.9 [place] [address] [place] [id number] Sep, [facility] [address] [address] Sep, [place] [address] [place] [id number] Aug, Allergic rhinitis J30.9 ; Depression F32 .9 ; Anxiety F41.9 ; Raynauds syndrome I73.00 ; Insomnia G47.00 and GERD (gastroesophageal reflux disease) K21.9 [place] [id number] Aug, MONICA (secretory otitis media) H65.90 and Raynauds syndrome I73.00 [facility] [address] [facility] [id number] [place] [address] Jul, Acute otitis externa of both ears, unspecified type H60.[address] [address] Jun, [address] [address] Jun, Essential hypertension I10 ; Allergic rh initis J30.9 ; Hypothyroidism E03.9 and Osteoarthritis M19.[address] [address] Jun, Routine adult health maintenance Z00.00 ; Hypothyroidism E03.9 ; Essential hypertension I10 ; Insomnia G47.00 ; Nicotine addiction F17.200 ; Raynauds syndrome I73.00 ; GERD (gastroesophageal reflux disease) K21.9 ; Allergic rhinitis J30.9 ; Anxiety F41.9 ; Depression F32.9 and Schizo affective schizophrenia F25.[address] [address] May, Upper respiratory tract infection, unspe cified type J06.9 [facility] [address] [id number] [place] [address] 29 Mar, 2015 [facility] [address] [id number] [place] [id number] 24 Mar, 2015 [facility] [address] [place] [id number] [place] [address] 19 Mar, 2015 [facility] [address] [place] [id number] [place] [address] Mar, [facility] [address] [place] [id number] [place] [address] Feb, Jaw pain 784.92 and Environmental and se asonal allergies 477.8 [facility] [address] [place] [id number] [place] [address] Feb, [facility] [address] [place] [id number] [place] [address] Oct, [facility] [address] [place] [id number] [place] [address] Oct, [facility] [address] [place] [id number] [place] [address] Oct, [facility] [address] [place] [id number] [place] [address] Oct, [facility] [address] [place] [id number] [place] [address] Sep, [facility] [address] [place] [id number] [place] [address] Sep, [facility] [address] [place] [id number] [place] [address] Jul, [facility] [address] [place] [id number] [place] [address] Jul, [facility] [address] [place] [id number] [place] [address] Jul, [facility] [address] [place] [id number] [place] [address] Jul, [facility] [place] [facility] [address] [id number] [place] [address] Jul, [facility] [place] [facility] [address] [id number] [place] [address] Jul, [facility] [place] [facility] [address] [id number] [place] [address] Jul, [facility] [place] [facility] [address] [id number] [place] [address] Jun, [facility] [place] [facility] [address] [id number] [place] [address] Jun, [facility] [place] [facility] [address] [id number] [place] [address] Jun, [facility] [place] [facility] [address] [id number] [place] [address] 18 Jun, 2014 [facility] [place] [facility] [address] [place] [id number] [place] [address] Jun, [facility] [place] [facility] [address] [id number] [place] [address] Jun, [facility] [place] [facility] [address] [id number] [place] [address] 16 Jun, 2014 [facility] [place] [facility] [address] [id number] [place] [address] Jun, [facility] [place] [facility] [address] [id number] [place] [address] 30 Apr, 2014 [facility] [place] [facility] [address] [id number] [place] [address] 30 Apr, 2014 [facility] [place] [facility] [address] [id number] [place] [address] 17 Mar, 2014 [facility] [place] [facility] [address] [place] [id number] [place] [address] 17 Mar, 2014 [facility] [place] [facility] [address] [id number] [place] [address] 03 Mar, 2013 [facility] [place] [facility] [address] [id number] [place] [address] Mar, [facility] [place] [facility] [address] [facility] [id number] [place] [address] Jan, [facility] [place] [facility] [address] [facility] [id number] [place] [address] Jan, [facility] [place] [facility] [address] [id number] [place] [address] Oct, [facility] [place] [facility] [address] [id number] [place] [address] Oct, [facility] [place] [facility] [address] [facility] [id number] [place] [address] Sep, [facility] [place] [facility] [address] [id number] [place] [address] Sep, [facility] [place] [facility] [address] [id number] [place] [address] Sep, [facility] [place] [facility] [address] [id number] [place] [address] Sep, [facility] [place] [facility] [address] [id number] [place] [address] Sep, [facility] [place] [facility] [address] [id number] [place] [address] Sep, [facility] [place] [facility] [address] [id number] [place] [address] Aug, [facility] [place] [facility] [address] [id number] [place] [address] Aug, [facility] [place] [facility] [address] [id number] [place] [address] Jul, [facility] [place] [facility] [address] [id number] [place] [address] Jul, [facility] [place] [facility] [address] [id number] [place] [address] Jul, [facility] [place] [facility] [address] [id number] [place] [address] Jul, [facility] [place] [facility] [address] [id number] [place] [address] Jun, [facility] [place] [facility] [address] [id number] [place] [address] Jun, [facility] [place] [facility] [address] [id number] [place] [address] May, [facility] [place] [facility] [address] [id number] [place] [address] May, [facility] [place] [facility] [address] [id number] [place] [address] Apr, [facility] [place] [facility] [address] [id number] [place] [address] Apr, [facility] [place] [facility] [address] [id number] [place] [address] Apr, [facility] [place] [facility] [address] [id number] [place] [address] Apr, [facility] [place] [facility] [address] [id number] [place] [address] Apr, [facility] [place] [facility] [address] [id number] [place] [address] Apr, [facility] [place] [facility] [address] [id number] [place] [address] Mar, [facility] [place] [facility] [address] [id number] [place] [address] Mar, [facility] [place] [facility] [address] [id number] [place] [address] 09 Mar, 2013 [facility] [place] [facility] [address] [id number] [place] [address] 05 Mar, 2012 [facility] [place] [facility] [address] [place] [id number] [place] [address] 05 Mar, 2013 [facility] [place] [facility] [address] [id number] [place] [address] Feb, [facility] [place] [facility] [address] [id number] [place] [address] Feb, [facility] [place] [facility] [address] [id number] [place] [address] Feb, [facility] [place] [facility] [address] [facility] [id number] [place] [address] Feb, [facility] [place] [facility] [address] [facility] [id number] [place] [address] Jan, [facility] [place] [facility] [address] [id number] [place] [address] 17 Jan, 2013 [facility] [place] [facility] [address] [facility] [id number] [place] [address] 16 Jan, 2013 [facility] [place] [facility] [address] [id number] [place] [address] Jan, [facility] [place] [facility] [address] [id number] [place] [address] Jan, [facility] [place] [facility] [address] [id number] [place] [address] Jan, [facility] [place] [facility] [address] [id number] [place] [address] Dec, [facility] [place] [facility] [address] [id number] [place] [address] 25 Dec, 2012 [facility] [place] [facility] [address] [id number] [place] [address] Dec, [facility] [place] [facility] [address] [id number] [place] [address] 14 Dec, 2012 [facility] [place] [facility] [address] [id number] [place] [address] Dec, [facility] [place] [facility] [address] [facility] [id number] [place] [address] 12 Dec, 2012 [facility] [place] [facility] [address] [id number] [place] [address] Dec, [facility] [address] [id number] [place] [address] 07 Dec, 2012 [facility] [address] [id number] [place] [address] Dec, [facility] [address] [id number] [place] [address] Dec, [facility] [address] [id number] [place] [address] November, [facility] [address] [id number] [place] [address] November, [facility] [address] [id number] [place] [address] November, [facility] [address] [id number] [place] [address] November, [facility] [address] [id number] [place] [address] November, [facility] [address] [id number] [place] [address] Oct, [facility] [address] [id number] [place] [address] Oct, [facility] [address] [id number] [place] [address] Oct, [facility] [address] [id number] [place] [address] Oct, [facility] [address] [id number] [place] [address] Oct, [facility] [address] [id number] [place] [address] Sep, [facility] [address] [id number] [place] [address] Sep, [facility] [address] [id number] [place] [address] Sep, [facility] [address] [id number] [place] [address] Sep, [facility] [address] [id number] [place] [address] Aug, [facility] [address] [id number] [place] [address] 18 Aug, 2012 [facility] [address] [id number] [place] [address] 18 Aug, 2012 [facility] [address] [id number] [place] [address] 15 Aug, 2012 [facility] [address] [id number] [place] [address] Jun, [facility] [address] [id number] [place] [address] Jun, [facility] [address] [id number] [place] [address] Jun, [facility] [address] [id number] [place] [address] Jun, [facility] [address] [id number] [place] [address] Jun, [facility] [address] [id number] [place] [address] Jun, [facility] [address] [id number] [place] [address] Jun, [facility] [address] [id number] [place] [address] Jun, [facility] [address] [id number] [place] [address] Jun, [facility] [address] [id number] [place] [address] Jun, [facility] [address] [id number] [place] [address] May, [facility] [id number] [place] [address] May, [facility] [address] [id number] [place] [address] May, [facility] [id number] [place] [address] May, [facility] [address] [id number] [place] [address] 26 May, 2012 [facility] [address] [id number] [place] [address] 16 May, 2012 [facility] [address] [id number] [place] [address] 16 May, 2012 [facility] [address] [id number] [place] [address] 14 May, 2012 [facility] [address] [id number] [place] [address] 14 May, 2012 [facility] [address] [id number] [place] [address] 30 Apr, 2012 [facility] [address] [id number] [place] [address] 30 Apr, 2012 [facility] [address] [id number] [place] [address] 17 Apr, 2012 [facility] [address] [id number] [place] [address] 17 Apr, 2012 [facility] [address] [id number] [place] [address] 09 Apr, 2012 [facility] [address] [id number] [place] [address] 18 Mar, 2012 [facility] [address] [id number] [place] [address] 17 Mar, 2012 [facility] [address] [id number] [place] [address] 07 Mar, 2012 [facility] [address] [id number] [place] [address] 27 Feb, 2012 [facility] [address] [id number] [place] [address] 16 Feb, 2012 [facility] [address] [id number] [place] [address] 15 Feb, 2012 [facility] [address] [id number] [place] [address] Feb, [facility] [address] [facility] [id number] [place] [address] Jan, [facility] [address] [id number] [place] [address] Jan, [facility] [address] [id number] [place] [address] Jan, [facility] [address] [id number] [place] [address] Jan, [facility] [address] [id number] [place] [address] Jan, [facility] [address] [id number] [place] [address] Jan, [facility] [address] [id number] [place] [address] Dec, [facility] [address] [id number] [place] [address] Dec, [facility] [address] [id number] [place] [address] Dec, [facility] [address] [id number] [place] [address] November, [facility] [address] [id number] [place] [address] November, [facility] [address] [id number] [place] [address] November, [facility] [address] [id number] [place] [address] November, [facility] [address] [id number] [place] [address] Oct, [facility] [address] [id number] [place] [address] Oct, [facility] [address] [id number] [place] [address] Oct, [facility] [address] [id number] [place] [address] Sep, [facility] [address] [id number] [place] [address] Sep, [facility] [address] [id number] [place] [address] Aug, [facility] [address] [id number] [place] [address] Aug, [facility] [address] [id number] [place] [address] Aug, [facility] [address] [id number] [place] [address] Aug, [facility] [address] [id number] [place] [address] Jul, [facility] [address] [id number] [place] [address] Jul, [facility] [address] [id number] [place] [address] Jul, [facility] [address] [id number] [place] [address] Jul, [facility] [address] [id number] [place] [address] Jul, [facility] [id number] [place] [address] Jul, [facility] [address] [id number] [place] [address] Jul, [facility] [address] [id number] [place] [address] Jul, [facility] [address] [id number] [place] [address] Jun, [facility] [address] [id number] [place] [address] Jun, [facility] [address] [id number] [place] [address] 15 Jun, 2011 [facility] [address] [id number] [place] [address] Jun, [facility] [address] [id number] [place] [address] Jun, [facility] [address] [id number] [place] [address] May, [facility] [address] [id number] [place] [address] May, [facility] [address] [id number] [place] [address] May, [facility] [address] [id number] [place] [address] May, [facility] [address] [id number] [place] [address] May, [facility] [address] [id number] [place] [address] May, [facility] [address] [id number] [place] [address] Apr, [facility] [address] [id number] [place] [address] Apr, [facility] [address] [id number] [place] [address] Apr, [facility] [address] [id number] [place] [address] Feb, [facility] [address] [id number] [place] [address] Feb, [facility] [address] [id number] [place] [address] Oct, [facility] [address] [id number] [place] [address] Jul, [facility] [address] [id number] [place] [address] Jul, [facility] [address] [id number] [place] [address] Jun, [facility] [address] [id number] [place] [address] May, [facility] [address] [id number] [place] [address] May, [facility] [address] [id number] [place] [address] May, [facility] [address] [id number] [place] [address] Apr, [facility] [address] [id number] [place] [address] Jan, [facility] [address] [id number] [place] [address] November, IMMUNIZATIONS No Known Immunizations SOCIAL HISTORY [...]
--- OUTSIDE RECORDS SUMMARY | 2020-01-31 09:44 | XMS REPORT ---
Author Author Ivet BRISENO Y Organization [facility] Address [address] [place] [address] Care Team Providers Care Real Estate Closing Coordinator Name Role Phone LINDY BRISENO Unavailable PROBLEMS Type Condition ICD9-CM Code [id number] Code Onset Dates Condition S tatus SNOMED Code Problem Hypothyroidism E03.9 Active 68137 008 Problem GERD (gastroesophageal reflux disease) K21.9 Active 765106086 Problem Essential hypertension I10 Active 38140121 Problem Anxiety F41.9 Active 84945383 Problem Osteoarthritis M19.90 Active 82436 5006 Problem Schizo affective schizophrenia F25.0 Active 066888866 Problem Bilateral carotid artery disease I77.9 Active 848463981 Problem Low back pain, unspecified b ack pain laterality, unspecified chronicity, with sciatica presence unspecified M54.5 Active 393735667 Problem Vitamin D deficiency E55.9 Active 88721197 Problem Iron deficiency anemia, unspecified iron deficiency an emia type D50.9 Active 59666757 Problem Secondary hyperparathyroidism, not elsewhere classified E21.1 Active 73613882 Problem Lumbago with sciatica, right side M54.41 Active [id number] Problem Fibromyalgia M79.7 Active 8256330 05 Problem Other chronic pain G89.29 Active 8 1736878 Problem Stage 3 chronic kidney disease N18.3 Active 870318633 Problem Depression F32.9 Active 44262348 Problem Sensory loss R20.0 Active 4088301 9 Problem Idiopathic peripheral neuropathy G60.9 Active 06241959 Problem Acquired hypothyroidism E03.9 Active 185472933 Problem Lumbago with sciatica, left side M54.42 Active [id number] ALLERGIES No Information ENCOUNTERS Encounter Location Date Diagnosis [facility] [address] [id number] [place] [address] Jun, Osteoarthritis M19.90 [facility] [address] [id number] [address] [place] [address] Jun, Herpes zoster without compli cation B02.9 [place] [address] [address] May, Osteoarthritis M19.90 [facility] [address] [address] May, [facility] [address] [address] Apr, [place] [address] [address] Mar, Osteoarthritis M19.90 [place] [address] [address] Mar, [place] [address] [address] Feb, Lumbago with sciatica, left side M54.42 ; Lumbago with sciatica, right side M54.41 and Other chronic pain G89.29 [place] [address] [address] Feb, Encounter for Medicare annual wellness e xam Z00.00 ; Schizo affective schizophrenia F25.0 ; Essential hypertension I10 ; GERD (gastroesophageal reflux disease) K21.9 ; Secondary hyperparathyroidism, not elsewhere classified E21.1 ; Idiopathic peripheral neuropathy G60.9 ; Stage 3 chronic kidney disease N18.3 ; Acquired hypothyroidism E03.9 ; Bilateral carotid artery disease I77.9 and Hypothyroidism E03.9 [place] [address] [place] [id number] [place] [address] Feb, Osteoarthritis M19.90 [place] [address] [address] Jan, Osteoarthritis M19.90 [place] [address] [address] Jan, Osteoarthritis M19.90 [place] [address] [address] Dec, Acquired hypothyroidism E03.9 [place] [address] [address] Dec, Fibromyalgia M79.7 ; Hypothyroidism E03. 9 ; Essential hypertension I10 and Sensory loss R20.0 [address] [place] [address] November, Osteoarthritis M19.90 [place] [address] [address] Oct, Osteoarthritis M19.90 [facility] [address] [address] Oct, Sore throat J02.9 and Acute nasopharyngitis J00 [place] [address] [address] Sep, Osteoarthritis M19.90 [facility] [place] [address] [address] Sep, Acute non-recurrent maxillar y sinusitis J01.00 [facility] [address] [address] Aug, Acute non-recurrent pansinus itis J01.40 [place] [address] [address] Jul, Osteoarthritis M19.90 [place] [address] [address] Jul, [place] [address] [address] Apr, Osteoarthritis M19.90 [place] [address] [address] Apr, Fibromyalgia M79.7 ; Essential hypertens ion I10 ; Encounter for immunization Z23 ; Stage 3 chronic kidney disease N18.3 and Depression F32.9 [place] [address] [address] Dec, Fibromyalgia M79.7 ; Osteoarthritis M19. 90 and Encounter for medication management Z79.899 [facility] [address] [facility] [id number] [address] [place] [address] November, Nausea and vomiting, intract ability of vomiting not specified, unspecified vomiting type R11.2 and Dizziness R42 [facility] [address] [address] November, Fibromyalgia M79.7 [facility] [address] [address] November, Medicare annual wellness visit, initial Z00.00 ; Anxiety F41.9 ; Depression F32.9 ; Stage 3 chronic kidney disease N18.3 ; Fibromyalgia M79.7 ; Essential hypertension I10 ; Secondary hyperparathyroidism, not elsewhere classified E21.1 ; Osteoarthritis M19.90 ; Hypothyroidism E03.9 and Encounter for immunization Z23 [place] [address] [address] Oct, [place] [address] [address] Oct, Sebaceous cyst L72.3 [place] [address] [address] Sep, Low back pain, unspecified back pain lat erality, unspecified chronicity, with sciatica presence unspecified M54.5 and Secondary hyperparathyroidism, not elsewhere classified E21.1 [place] [address] [address] Sep, Fibromyalgia M79.7 [place] [address] [address] Sep, Fibromyalgia M79.7 ; Plantar fasciitis, bilateral M72.2 ; Essential hypertension I10 ; Depression F32.9 and Epidermoid cyst L72.0 [place] [address] [address] Jul, [place] [address] [address] Jul, Fibromyalgia M79.7 ; Iron deficiency ane daniella, unspecified iron deficiency anemia type D50.9 and Acute nasopharyngitis J00 [facility] [address] [facility] [id number] [address] [place] [address] Jun, Sore throat J02.9 and Acute serous otitis media of left ear, recurrence not specified H65.02 [place] [address] [address] Jun, Hypothyroidism E03.9 [place] [address] [address] Jun, [place] [address] [address] Jun, Hypothyroidism E03.9 ; Essential hyperte nsion I10 and Osteoarthritis M19.90 [place] [address] [address] May, [place] [address] [address] May, [place] [address] [address] Feb, [place] [address] [address] Feb, Leonela-menopausal N95.1 and Tobacco use Z7 2.0 [place] [address] [address] Jan, [address] [address] Jan, Osteoarthritis M19.90 ; Bilateral caroti d artery disease I77.9 ; Raynauds syndrome I73.00 ; Essential hypertension I10 ; Allergic rhinitis J30.9 ; Stage 3 chronic kidney disease N18.3 ; Fibromyalgia M79.7 ; Hypothyroidism E03.9 ; GERD (gastroesophageal reflux disease) K21.9 and Vitamin D deficiency E55.9 [place] [address] [address] Dec, Raynauds syndrome I73.00 ; Plantar fasci al fibromatosis M72.2 ; Osteoarthritis M19.90 and Fibromyalgia M79.7 [facility] [address] [address] Dec, [facility] [address] [address] Dec, [facility] [address] [address] Oct, Function kidney decreased N28.9 [facility] [address] [place] [id number] Oct, Dental examination Z01.20 [place] [address] [address] Oct, Essential hypertension I10 and Function kidney decreased N28.9 [facility] [address] [id number] Oct, Dental examination Z01.20 [facility] [address] [address] Oct, [facility] [address] [address] Sep, Other specified disorders involving the immune mechanism D89.89 and Schizo affective schizophrenia F25.0 [place] [address] [address] Sep, Schizo affective schizophrenia F25.0 [place] [address] [address] Sep, Eustachian tube dysfunction, bilateral H 69.83 [facility] [address] [address] 15 Sep, 2016 [facility] [address] [address] 14 Sep, 2016 [facility] [address] [address] 14 Sep, 2016 [facility] [address] [address] Sep, Eustachian tube dysfunction, bilateral H 69.83 [facility] [address] [address] Sep, Allergic rhinitis J30.9 ; Essential hype rtension I10 ; Hypothyroidism E03.9 and Schizo affective schizophrenia F25.0 [place] [address] [address] Jul, Eustachian tube dysfunction, bilateral H 69.83 and Visit for TB skin test Z11.1 [facility] [address] [facility] [id number] [address] [place] [address] Jul, Subacute pansinusitis J01.[address] [address] Jun, Schizo affective schizophrenia F25.0 ; D epression F32.9 ; Allergic rhinitis J30.9 ; Raynauds syndrome I73.00 ; Essential hypertension I10 ; Slow transit constipation K59.01 ; GERD (gastroesophageal reflux disease) K21.9 ; Hypothyroidism E03.9 ; Nicotine addiction F17.200 ; Other viral agents as the cause of diseases classified elsewhere B97.89 ; Acute upper respiratory infection, unspecified J06.9 and Osteoarthritis M19.90 [place] [address] [address] Jun, Allergic rhinitis J30.9 and GERD (gastro esophageal reflux disease) K21.9 [place] [address] [address] May, [place] [address] [address] Mar, Schizo affective schizophrenia F25.0 [place] [address] [address] Mar, Schizo affective schizophrenia F25.0 [place] [address] [address] 15 Mar, 2016 Schizo affective schizophrenia F25.0 [place] [address] [address] Mar, Acute non-recurrent maxillary sinusitis J01.00 [place] [address] [address] Feb, Schizo affective schizophrenia F25.0 [place] [address] [address] Feb, Contact dermatitis and eczema L25.9 [place] [address] [address] Jan, [place] [address] [address] Jan, Schizo affective schizophrenia F25.0 ; S low transit constipation K59.01 ; Essential hypertension I10 ; GERD (gastroesophageal reflux disease) K21.9 ; Hypothyroidism E03.9 ; Osteoarthritis M19.90 ; Low back pain, unspecified back pain laterality, unspecified chronicity, with sciatica presence unspecified M54.5 and Bilateral carotid artery disease I77.9 [place] [address] [address] Oct, [place] [address] [address] Sep, Hypothyroid E03.9 [place] [address] [address] Sep, Schizo affective schizophrenia F25.0 ; D epression F32.9 ; Anxiety F41.9 ; Allergic rhinitis J30.9 ; Raynauds syndrome I73.00 ; Insomnia G47.00 ; Essential hypertension I10 ; GERD (gastroesophageal reflux disease) K21.9 ; Hypothyroidism E03.9 and Vitamin D deficiency E55.9 [place] [address] [address] Sep, [place] [address] [place] [address] [place] [address] Sep, [place] [address] [address] Aug, Allergic rhinitis J30.9 ; Depression F32 .9 ; Anxiety F41.9 ; Raynauds syndrome I73.00 ; Insomnia G47.00 and GERD (gastroesophageal reflux disease) K21.9 [place] [address] [address] Aug, MONICA (secretory otitis media) H65.90 and Raynauds syndrome I73.00 [facility] [address] [facility] [id number] [address] [place] [address] Jul, Acute otitis externa of both ears, unspecified type H60.[address] [address] Jun, [address] [address] Jun, Essential hypertension I10 ; Allergic rh initis J30.9 ; Hypothyroidism E03.9 and Osteoarthritis M19.[address] [address] Jun, Routine adult health maintenance Z00.00 ; Hypothyroidism E03.9 ; Essential hypertension I10 ; Insomnia G47.00 ; Nicotine addiction F17.200 ; Raynauds syndrome I73.00 ; GERD (gastroesophageal reflux disease) K21.9 ; Allergic rhinitis J30.9 ; Anxiety F41.9 ; Depression F32.9 and Schizo affective schizophrenia F25.0 [place] [address] [address] May, Upper respiratory tract infection, unspe cified type J06.9 [place] [id number] [place] [address] Mar, [facility] [address] [id number] [place] [id number] Mar, [place] [id number] [place] [address] Mar, [facility] [id number] [place] [address] Mar, [facility] [id number] [place] [address] Feb, Jaw pain 784.92 and Environmental and se asonal allergies 477.8 [facility] [id number] [place] [address] Feb, [facility] [id number] [place] [address] Oct, [facility] [id number] [place] [address] Oct, [facility] [id number] [place] [address] Oct, [facility] [id number] [place] [address] Oct, [facility] [id number] [place] [address] Sep, [facility] [id number] [place] [address] Sep, [facility] [id number] [place] [address] Jul, [facility] [id number] [place] [address] Jul, [facility] [id number] [place] [address] Jul, [facility] [id number] [place] [address] Jul, [facility] [id number] [place] [address] Jul, [facility] [id number] [place] [address] Jul, [facility] [id number] [place] [address] Jul, [facility] [address] [facility] [id number] [place] [address] Jun, [facility] [address] [id number] [place] [address] Jun, [facility] [address] [id number] [place] [address] Jun, [facility] [address] [id number] [place] [address] Jun, [facility] [address] [id number] [place] [address] Jun, [facility] [address] [id number] [place] [address] Jun, [facility] [address] [id number] [place] [address] Jun, [facility] [address] [id number] [place] [address] Jun, [facility] [address] [id number] [place] [address] Apr, [facility] [address] [id number] [place] [address] Apr, [facility] [address] [id number] [place] [address] Mar, [facility] [address] [id number] [place] [address] Mar, [facility] [address] [id number] [place] [address] Mar, [facility] [address] [id number] [place] [address] Mar, [facility] [address] [id number] [place] [address] Jan, [facility] [address] [id number] [place] [address] Jan, [facility] [address] [id number] [place] [address] Oct, [facility] [address] [id number] [place] [address] Oct, [facility] [address] [id number] [place] [address] Sep, [facility] [address] [id number] [place] [address] Sep, [facility] [address] [id number] [place] [address] Sep, [facility] [address] [id number] [place] [address] Sep, [facility] [address] [id number] [place] [address] Sep, [facility] [address] [id number] [place] [address] Sep, [facility] [address] [id number] [place] [address] Aug, [facility] [address] [id number] [place] [address] Aug, [facility] [address] [id number] [place] [address] Jul, [facility] [address] [id number] [place] [address] Jul, [facility] [address] [id number] [place] [address] Jul, [facility] [address] [id number] [place] [address] Jul, [facility] [address] [id number] [place] [address] Jun, [facility] [address] [id number] [place] [address] Jun, [facility] [address] [id number] [place] [address] May, [facility] [address] [facility] [id number] [place] [address] May, [facility] [address] [facility] [id number] [place] [address] Apr, [facility] [address] [id number] [place] [address] Apr, [facility] [address] [id number] [place] [address] Apr, [facility] [address] [facility] [id number] [place] [address] Apr, [facility] [address] [id number] [place] [address] Apr, [facility] [address] [id number] [place] [address] Apr, [facility] [address] [id number] [place] [address] 24 Mar, 2013 [facility] [address] [id number] [place] [address] Mar, [facility] [address] [id number] [place] [address] Mar, [facility] [address] [id number] [place] [address] 05 Mar, 2012 [facility] [address] [id number] [place] [address] 05 Mar, 2012 [facility] [address] [id number] [place] [address] Feb, [facility] [address] [facility] [id number] [place] [address] Feb, [facility] [address] [id number] [place] [address] Feb, [facility] [address] [id number] [place] [address] Feb, [facility] [address] [id number] [place] [address] 18 Jan, 2013 [facility] [address] [id number] [facility] [place] [address] 17 Jan, 2013 [facility] [address] [facility] [id number] [place] [address] 16 Jan, 2013 [facility] [address] [id number] [place] [address] Jan, [facility] [address] [id number] [place] [address] Jan, [facility] [address] [facility] [id number] [place] [address] Jan, [facility] [address] [id number] [place] [address] Dec, [facility] [address] [id number] [place] [address] Dec, [facility] [address] [id number] [place] [address] Dec, [facility] [address] [id number] [place] [address] 14 Dec, 2012 [facility] [address] [id number] [place] [address] Dec, [facility] [address] [id number] [place] [address] Dec, [facility] [address] [id number] [place] [address] Dec, [facility] [address] [id number] [place] [address] 07 Dec, 2012 [facility] [address] [id number] [place] [address] 05 Dec, 2012 [facility] [address] [id number] [place] [address] Dec, [facility] [address] [id number] [place] [address] November, [facility] [address] [id number] [place] [address] November, [facility] [address] [id number] [place] [address] November, [facility] [address] [id number] [place] [address] November, [facility] [address] [id number] [place] [address] November, [facility] [address] [id number] [place] [address] Oct, [facility] [address] [id number] [place] [address] Oct, [facility] [address] [id number] [place] [address] Oct, [facility] [address] [id number] [place] [address] Oct, [facility] [address] [id number] [place] [address] Oct, [facility] [address] [id number] [place] [address] Sep, [facility] [address] [id number] [place] [address] Sep, [facility] [address] [id number] [place] [address] Sep, [facility] [address] [id number] [place] [address] Sep, [facility] [address] [id number] [place] [address] Aug, [facility] [address] [id number] [place] [address] Aug, [facility] [address] [id number] [place] [address] Aug, [facility] [address] [id number] [place] [address] Aug, [facility] [address] [id number] [place] [address] Jun, [facility] [address] [id number] [place] [address] Jun, [facility] [address] [id number] [place] [address] Jun, [facility] [address] [id number] [place] [address] Jun, [facility] [address] [id number] [place] [address] Jun, [facility] [address] [id number] [place] [address] Jun, [facility] [address] [id number] [place] [address] Jun, [facility] [address] [id number] [place] [address] Jun, [facility] [address] [id number] [place] [address] Jun, [facility] [address] [id number] [place] [address] Jun, [facility] [address] [id number] [place] [address] May, [facility] [address] [id number] [place] [address] May, [facility] [address] [id number] [place] [address] May, [facility] [address] [id number] [place] [address] May, [facility] [address] [id number] [place] [address] May, [facility] [address] [id number] [place] [address] 16 May, 2012 [facility] [address] [id number] [place] [address] 16 May, 2012 [facility] [address] [id number] [place] [address] 14 May, 2012 [facility] [address] [id number] [place] [address] 14 May, 2012 [facility] [address] [id number] [place] [address] 30 Apr, 2012 [facility] [address] [id number] [place] [address] 30 Apr, 2012 [facility] [address] [id number] [place] [address] Apr, [facility] [address] [id number] [place] [address] Apr, [facility] [address] [id number] [place] [address] Apr, [facility] [address] [id number] [place] [address] 18 Mar, 2012 [facility] [address] [id number] [place] [address] 17 Mar, 2012 [facility] [address] [id number] [place] [address] 07 Mar, 2012 [facility] [address] [id number] [place] [address] Feb, [facility] [address] [id number] [place] [address] Feb, [facility] [address] [id number] [place] [address] 15 Feb, 2012 [facility] [address] [id number] [place] [address] Feb, [facility] [address] [id number] [place] [address] Jan, [facility] [address] [id number] [place] [address] Jan, [facility] [address] [id number] [place] [address] Jan, [facility] [address] [id number] [place] [address] Jan, [facility] [address] [id number] [place] [address] Jan, [facility] [address] [id number] [place] [address] Jan, [facility] [address] [id number] [place] [address] Dec, [facility] [address] [id number] [place] [address] Dec, [facility] [address] [id number] [place] [address] Dec, [facility] [address] [id number] [place] [address] November, [facility] [address] [id number] [place] [address] November, [facility] [address] [id number] [place] [address] November, [facility] [address] [id number] [place] [address] November, [facility] [address] [id number] [place] [address] Oct, [facility] [address] [id number] [place] [address] Oct, [facility] [address] [id number] [place] [address] Oct, [facility] [address] [id number] [place] [address] Sep, [facility] [address] [id number] [place] [address] Sep, [facility] [address] [id number] [place] [address] Aug, [facility] [address] [id number] [place] [address] Aug, [facility] [address] [id number] [place] [address] Aug, [facility] [address] [id number] [place] [address] Aug, [facility] [address] [id number] [place] [address] Jul, [facility] [address] [id number] [place] [address] Jul, [facility] [address] [id number] [place] [address] Jul, [facility] [address] [id number] [place] [address] Jul, [facility] [address] [id number] [place] [address] Jul, [facility] [address] [id number] [place] [address] Jul, [facility] [address] [id number] [place] [address] Jul, [facility] [address] [id number] [place] [address] Jul, [facility] [address] [id number] [place] [address] Jun, [facility] [address] [id number] [place] [address] Jun, [facility] [address] [id number] [place] [address] Jun, [facility] [address] [id number] [place] [address] Jun, [facility] [address] [id number] [place] [address] Jun, [facility] [address] [id number] [place] [address] May, [facility] [address] [id number] [place] [address] May, [facility] [address] [id number] [place] [address] May, [facility] [address] [id number] [place] [address] 15 May, 2011 [facility] [address] [id number] [place] [address] May, [facility] [address] [id number] [place] [address] May, [facility] [address] [id number] [place] [address] Apr, [facility] [id number] [place] [address] Apr, [facility] [address] [id number] [place] [address] Apr, [facility] [address] [id number] [place] [address] Feb, [facility] [address] [id number] [place] [address] Feb, [facility] [address] [id number] [place] [address] Oct, [facility] [address] [id number] [place] [address] Jul, [facility] [address] [id number] [place] [address] Jul, [facility] [id number] [place] [address] Jun, [facility] [address] [id number] [place] [address] May, [facility] [address] [id number] [place] [address] May, [facility] [address] [id number] [place] [address] May, [facility] [address] [id number] [place] [address] Apr, [facility] [address] [id number] [place] [address] Jan, [facility] [address] [id number] [place] [address] November, IMMUNIZATIONS No Known Immunizations SOCIAL HISTORY [...]
--- OUTSIDE RECORDS SUMMARY | 2020-01-31 09:44 | XMS REPORT ---
Author Author Ivet BRISENO Y Organization [facility] Address [address] [place] [address] Care Team Providers Care Chart Calculator Name Role Phone LINDY BRISENO Unavailable PROBLEMS Type Condition ICD9-CM Code MSR08-GY Code Onset Dates Condition S tatus SNOMED Code Problem Hypothyroidism E03.9 Active 60091 008 Problem GERD (gastroesophageal reflux disease) K21.9 Active 616998712 Problem Essential hypertension I10 Active 34491256 Problem Anxiety F41.9 Active 34173277 Problem Osteoarthritis M19.90 Active 24327 5006 Problem Schizo affective schizophrenia F25.0 Active 901847824 Problem Bilateral carotid artery disease I77.9 Active 496768562 Problem Low back pain, unspecified b ack pain laterality, unspecified chronicity, with sciatica presence unspecified M54.5 Active 565002712 Problem Vitamin D deficiency E55.9 Active 87529949 Problem Iron deficiency anemia, unspecified iron deficiency an emia type D50.9 Active 69070630 Problem Secondary hyperparathyroidism, not elsewhere classified E21.1 Active 60243700 Problem Lumbago with sciatica, right side M54.41 Active [id number] Problem Fibromyalgia M79.7 Active 0310527 05 Problem Other chronic pain G89.29 Active 8 9787164 Problem Stage 3 chronic kidney disease N18.3 Active 368869668 Problem Depression F32.9 Active 12449019 Problem Sensory loss R20.0 Active 8089826 9 Problem Idiopathic peripheral neuropathy G60.9 Active 42526020 Problem Acquired hypothyroidism E03.9 Active 072211898 Problem Lumbago with sciatica, left side M54.42 Active 076358603 ALLERGIES No Information ENCOUNTERS Encounter Location Date Diagnosis [facility] [address] [id number] [place] [address] Aug, Osteoarthritis M19.90 [facility] [address] [address] Jul, Osteoarthritis M19.90 [facility] [address] [address] Jun, Osteoarthritis M19.90 [facility] [address] [facility] [id number] [address] [place] [address] Jun, Herpes zoster without compli cation B02.9 [place] [address] [address] May, Osteoarthritis M19.90 [place] [address] [address] May, [place] [address] [address] Apr, [place] [address] [address] Mar, Osteoarthritis M19.90 [facility] [address] [address] Mar, [place] [address] [address] Feb, Lumbago with sciatica, left side M54.42 ; Lumbago with sciatica, right side M54.41 and Other chronic pain G89.29 [place] [address] [address] Feb, Encounter for Medicare annual wellness e xam Z00.00 ; Schizo affective schizophrenia F25.0 ; Essential hypertension I10 ; GERD (gastroesophageal reflux disease) K21.9 ; Secondary hyperparathyroidism, not elsewhere classified E21.1 ; Idiopathic peripheral neuropathy G60.9 ; Stage 3 chronic kidney disease N18.3 ; Acquired hypothyroidism E03.9 ; Bilateral carotid artery disease I77.9 and Hypothyroidism E03.9 [place] [address] [address] Feb, Osteoarthritis M19.90 [facility] [address] [address] Jan, Osteoarthritis M19.90 [facility] [address] [place] [id number] [place] [address] Jan, Osteoarthritis M19.90 [facility] [address] [place] [id number] [place] [address] Dec, Acquired hypothyroidism E03.9 [facility] [address] [address] Dec, Fibromyalgia M79.7 ; Hypothyroidism E03. 9 ; Essential hypertension I10 and Sensory loss R20.0 [place] [address] [place] [address] November, Osteoarthritis M19.90 [facility] [id number] [place] [address] Oct, Osteoarthritis M19.90 [facility] [address] [place] [id number] [address] [place] [address] Oct, Sore throat J02.9 and Acute nasopharyngitis J00 [facility] [address] [place] [address] [id number] [place] [address] Sep, Osteoarthritis M19.90 [facility] [address] [place] [address] Sep, Acute non-recurrent maxillar y sinusitis J01.00 [facility] [address] [place] [id number] [address] [place] [address] Aug, Acute non-recurrent pansinus itis J01.40 [facility] [address] [place] [id number] [place] [address] Jul, Osteoarthritis M19.90 [facility] [address] [id number] [place] [address] Jul, [facility] [address] [place] [id number] [place] [address] Apr, Osteoarthritis M19.90 [facility] [address] [address] 08 Apr, 2018 Fibromyalgia M79.7 ; Essential hypertens ion I10 ; Encounter for immunization Z23 ; Stage 3 chronic kidney disease N18.3 and Depression F32.9 [facility] [address] [address] 12 Dec, 2017 Fibromyalgia M79.7 ; Osteoarthritis M19. 90 and Encounter for medication management Z79.899 [facility] [address] [facility] [id number] [address] [place] [address] November, Nausea and vomiting, intract ability of vomiting not specified, unspecified vomiting type R11.2 and Dizziness R42 [facility] [address] [address] November, Fibromyalgia M79.7 [facility] [address] [address] November, Medicare annual wellness visit, initial Z00.00 ; Anxiety F41.9 ; Depression F32.9 ; Stage 3 chronic kidney disease N18.3 ; Fibromyalgia M79.7 ; Essential hypertension I10 ; Secondary hyperparathyroidism, not elsewhere classified E21.1 ; Osteoarthritis M19.90 ; Hypothyroidism E03.9 and Encounter for immunization Z23 [facility] [address] [address] Oct, [place] [address] [address] Oct, Sebaceous cyst L72.3 [place] [address] [address] Sep, Low back pain, unspecified back pain lat erality, unspecified chronicity, with sciatica presence unspecified M54.5 and Secondary hyperparathyroidism, not elsewhere classified E21.1 [facility] [address] [address] Sep, Fibromyalgia M79.7 [place] [address] [address] Sep, Fibromyalgia M79.7 ; Plantar fasciitis, bilateral M72.2 ; Essential hypertension I10 ; Depression F32.9 and Epidermoid cyst L72.0 [place] [address] [address] Jul, [place] [address] [address] Jul, Fibromyalgia M79.7 ; Iron deficiency ane daniella, unspecified iron deficiency anemia type D50.9 and Acute nasopharyngitis J00 [facility] [address] [facility] [id number] [address] [place] [address] Jun, Sore throat J02.9 and Acute serous otitis media of left ear, recurrence not specified H65.02 [place] [address] [address] Jun, Hypothyroidism E03.[address] [address] Jun, [place] [address] [address] Jun, Hypothyroidism E03.9 ; Essential hyperte nsion I10 and Osteoarthritis M19.[address] [address] May, [address] [address] May, [place] [address] [address] Feb, [address] [address] Feb, Leonela-menopausal N95.1 and Tobacco use Z7 2.0 [place] [address] [address] Jan, [address] [address] Jan, Osteoarthritis M19.90 ; Bilateral caroti d artery disease I77.9 ; Raynauds syndrome I73.00 ; Essential hypertension I10 ; Allergic rhinitis J30.9 ; Stage 3 chronic kidney disease N18.3 ; Fibromyalgia M79.7 ; Hypothyroidism E03.9 ; GERD (gastroesophageal reflux disease) K21.9 and Vitamin D deficiency E55.9 [place] [address] [address] Dec, Raynauds syndrome I73.00 ; Plantar fasci al fibromatosis M72.2 ; Osteoarthritis M19.90 and Fibromyalgia M79.7 [place] [address] [address] Dec, [address] [address] Dec, [address] [address] Oct, Function kidney decreased N28.9 [facility] [address] [place] [id number] Oct, Dental examination Z01.[address] [address] Oct, Essential hypertension I10 and Function kidney decreased N28.9 [facility] [address] [id number] Oct, Dental examination Z01.[address] [address] Oct, [address] [address] Sep, Other specified disorders involving the immune mechanism D89.89 and Schizo affective schizophrenia F25.[address] [address] Sep, Schizo affective schizophrenia F25.[address] [address] Sep, Eustachian tube dysfunction, bilateral H 69.[address] [id number] [place] [address] 15 Sep, 2016 [facility] [address] [address] 14 Sep, 2016 [facility] [address] [address] 14 Sep, 2016 [place] [address] [address] 13 Sep, 2016 Eustachian tube dysfunction, bilateral H 69.[address] [address] Sep, Allergic rhinitis J30.9 ; Essential hype rtension I10 ; Hypothyroidism E03.9 and Schizo affective schizophrenia F25.[address] [address] Jul, Eustachian tube dysfunction, bilateral H 69.83 and Visit for TB skin test Z11.[address] [facility] [address] [facility] [id number] [address] [place] [address] Jul, Subacute pansinusitis J01.[address] [address] Jun, Schizo affective schizophrenia F25.0 ; D epression F32.9 ; Allergic rhinitis J30.9 ; Raynauds syndrome I73.00 ; Essential hypertension I10 ; Slow transit constipation K59.01 ; GERD (gastroesophageal reflux disease) K21.9 ; Hypothyroidism E03.9 ; Nicotine addiction F17.200 ; Other viral agents as the cause of diseases classified elsewhere B97.89 ; Acute upper respiratory infection, unspecified J06.9 and Osteoarthritis M19.[address] [address] Jun, Allergic rhinitis J30.9 and GERD (gastro esophageal reflux disease) K21.[address] [address] May, [address] [place] [address] Mar, Schizo affective schizophrenia F25.0 [place] [address] [address] Mar, Schizo affective schizophrenia F25.0 [place] [address] [address] 15 Mar, 2016 Schizo affective schizophrenia F25.0 [place] [address] [address] Mar, Acute non-recurrent maxillary sinusitis J01.00 [place] [address] [address] Feb, Schizo affective schizophrenia F25.0 [place] [address] [address] Feb, Contact dermatitis and eczema L25.9 [place] [address] [address] Jan, [place] [address] [address] Jan, Schizo affective schizophrenia F25.0 ; S low transit constipation K59.01 ; Essential hypertension I10 ; GERD (gastroesophageal reflux disease) K21.9 ; Hypothyroidism E03.9 ; Osteoarthritis M19.90 ; Low back pain, unspecified back pain laterality, unspecified chronicity, with sciatica presence unspecified M54.5 and Bilateral carotid artery disease I77.9 [place] [address] [address] Oct, [place] [address] [address] Sep, Hypothyroid E03.9 [place] [address] [address] Sep, Schizo affective schizophrenia F25.0 ; D epression F32.9 ; Anxiety F41.9 ; Allergic rhinitis J30.9 ; Raynauds syndrome I73.00 ; Insomnia G47.00 ; Essential hypertension I10 ; GERD (gastroesophageal reflux disease) K21.9 ; Hypothyroidism E03.9 and Vitamin D deficiency E55.9 [place] [address] [place] [id number] Sep, [facility] [address] [address] Sep, [place] [address] [place] [id number] Aug, Allergic rhinitis J30.9 ; Depression F32 .9 ; Anxiety F41.9 ; Raynauds syndrome I73.00 ; Insomnia G47.00 and GERD (gastroesophageal reflux disease) K21.9 [place] [id number] Aug, MONICA (secretory otitis media) H65.90 and Raynauds syndrome I73.[address] [facility] [address] [facility] [id number] [place] [address] Jul, Acute otitis externa of both ears, unspecified type H60.[address] [address] Jun, [address] [address] Jun, Essential hypertension I10 ; Allergic rh initis J30.9 ; Hypothyroidism E03.9 and Osteoarthritis M19.[address] [address] Jun, Routine adult health maintenance Z00.00 ; Hypothyroidism E03.9 ; Essential hypertension I10 ; Insomnia G47.00 ; Nicotine addiction F17.200 ; Raynauds syndrome I73.00 ; GERD (gastroesophageal reflux disease) K21.9 ; Allergic rhinitis J30.9 ; Anxiety F41.9 ; Depression F32.9 and Schizo affective schizophrenia F25.[address] [address] May, Upper respiratory tract infection, unspe cified type J06.9 [facility] [address] [id number] [place] [address] 29 Mar, 2015 [facility] [address] [facility] [place] [address] 24 Mar, 2015 [facility] [address] [place] [id number] [place] [address] 19 Mar, 2015 [facility] [address] [place] [id number] [place] [address] Mar, [facility] [address] [place] [address] [id number] [place] [address] Feb, Jaw pain 784.92 and Environmental and se asonal allergies 477.8 [facility] [address] [place] [id number] [place] [address] Feb, [facility] [address] [place] [id number] [place] [address] Oct, [facility] [address] [place] [id number] [place] [address] Oct, [facility] [address] [place] [id number] [place] [address] Oct, [facility] [address] [place] [address] [id number] [place] [address] Oct, [facility] [address] [place] [id number] [place] [address] Sep, [facility] [address] [place] [id number] [place] [address] Sep, [facility] [address] [place] [id number] [place] [address] Jul, [facility] [address] [place] [id number] [place] [address] Jul, [facility] [address] [place] [id number] [place] [address] Jul, [facility] [address] [place] [id number] [place] [address] Jul, [facility] [place] [facility] [address] [id number] [place] [address] Jul, [facility] [place] [facility] [address] [id number] [place] [address] Jul, [facility] [place] [facility] [address] [id number] [place] [address] Jul, [facility] [place] [facility] [address] [id number] [place] [address] Jun, [facility] [place] [facility] [address] [id number] [place] [address] Jun, [facility] [place] [facility] [address] [id number] [place] [address] Jun, [facility] [place] [facility] [address] [id number] [place] [address] 18 Jun, 2014 [facility] [place] [facility] [address] [place] [id number] [place] [address] Jun, [facility] [place] [facility] [address] [id number] [place] [address] Jun, [facility] [place] [facility] [address] [id number] [place] [address] 16 Jun, 2014 [facility] [place] [facility] [address] [id number] [place] [address] Jun, [facility] [place] [facility] [address] [id number] [place] [address] 30 Apr, 2014 [facility] [place] [facility] [address] [id number] [place] [address] 30 Apr, 2014 [facility] [place] [facility] [address] [id number] [place] [address] 17 Mar, 2014 [facility] [place] [facility] [address] [place] [id number] [place] [address] 17 Mar, 2014 [facility] [place] [facility] [address] [id number] [place] [address] 03 Mar, 2013 [facility] [place] [facility] [address] [id number] [place] [address] Mar, [facility] [place] [facility] [address] [facility] [id number] [place] [address] Jan, [facility] [place] [facility] [address] [facility] [id number] [place] [address] Jan, [facility] [place] [facility] [address] [id number] [place] [address] Oct, [facility] [place] [facility] [address] [id number] [place] [address] Oct, [facility] [place] [facility] [address] [facility] [id number] [place] [address] Sep, [facility] [place] [facility] [address] [id number] [place] [address] Sep, [facility] [place] [facility] [address] [id number] [place] [address] Sep, [facility] [place] [facility] [address] [id number] [place] [address] Sep, [facility] [place] [facility] [address] [id number] [place] [address] Sep, [facility] [place] [facility] [address] [id number] [place] [address] Sep, [facility] [place] [facility] [address] [id number] [place] [address] Aug, [facility] [place] [facility] [address] [id number] [place] [address] Aug, [facility] [place] [facility] [address] [id number] [place] [address] Jul, [facility] [place] [facility] [address] [id number] [place] [address] Jul, [facility] [place] [facility] [address] [id number] [place] [address] Jul, [facility] [place] [facility] [address] [id number] [place] [address] Jul, [facility] [place] [facility] [address] [id number] [place] [address] Jun, [facility] [place] [facility] [address] [id number] [place] [address] Jun, [facility] [place] [facility] [address] [id number] [place] [address] May, [facility] [place] [facility] [address] [id number] [place] [address] May, [facility] [place] [facility] [address] [id number] [place] [address] Apr, [facility] [place] [facility] [address] [id number] [place] [address] Apr, [facility] [place] [facility] [address] [id number] [place] [address] Apr, [facility] [place] [facility] [address] [id number] [place] [address] Apr, [facility] [place] [facility] [address] [id number] [place] [address] Apr, [facility] [place] [facility] [address] [id number] [place] [address] Apr, [facility] [place] [facility] [address] [id number] [place] [address] Mar, [facility] [place] [facility] [address] [id number] [place] [address] Mar, [facility] [place] [facility] [address] [id number] [place] [address] 09 Mar, 2013 [facility] [place] [facility] [address] [id number] [place] [address] 05 Mar, 2012 [facility] [place] [facility] [address] [id number] [place] [address] 05 Mar, 2013 [facility] [place] [facility] [address] [id number] [place] [address] Feb, [facility] [place] [facility] [address] [id number] [place] [address] Feb, [facility] [place] [facility] [address] [id number] [place] [address] Feb, [facility] [place] [facility] [address] [facility] [id number] [place] [address] Feb, [facility] [place] [facility] [address] [facility] [id number] [facility] [address] Jan, [facility] [place] [facility] [address] [id number] [facility] [place] [address] 17 Jan, 2013 [facility] [place] [facility] [address] [facility] [id number] [facility] [place] [address] 16 Jan, 2013 [facility] [place] [facility] [address] [id number] [place] [address] Jan, [facility] [place] [facility] [address] [id number] [place] [address] Jan, [facility] [place] [facility] [address] [id number] [place] [address] Jan, [facility] [place] [facility] [address] [id number] [place] [address] Dec, [facility] [place] [facility] [address] [id number] [place] [address] 25 Dec, 2012 [facility] [place] [facility] [address] [id number] [place] [address] Dec, [facility] [place] [facility] [address] [id number] [place] [address] 14 Dec, 2012 [facility] [place] [facility] [address] [id number] [place] [address] Dec, [facility] [place] [facility] [address] [facility] [id number] [place] [address] 12 Dec, 2012 [facility] [place] [facility] [address] [id number] [place] [address] Dec, [facility] [place] [facility] [address] [id number] [place] [address] 07 Dec, 2012 [facility] [place] [facility] [address] [id number] [place] [address] Dec, [facility] [address] [id number] [place] [address] Dec, [facility] [place] [facility] [address] [id number] [facility] [address] November, [facility] [place] [facility] [address] [id number] [place] [address] November, [facility] [place] [facility] [address] [id number] [place] [address] November, [facility] [place] [facility] [address] [id number] [place] [address] November, [facility] [place] [facility] [address] [id number] [place] [address] November, [facility] [address] [id number] [place] [address] Oct, [facility] [address] [id number] [place] [address] Oct, [facility] [address] [id number] [place] [address] Oct, [facility] [address] [id number] [place] [address] Oct, [facility] [address] [id number] [place] [address] Oct, [facility] [address] [id number] [place] [address] Sep, [facility] [address] [id number] [place] [address] Sep, [facility] [address] [id number] [place] [address] Sep, [facility] [address] [id number] [place] [address] Sep, [facility] [address] [id number] [place] [address] Aug, [facility] [address] [id number] [place] [address] 18 Aug, 2012 [facility] [address] [id number] [place] [address] 18 Aug, 2012 [facility] [address] [id number] [place] [address] 15 Aug, 2012 [facility] [address] [id number] [place] [address] Jun, [facility] [address] [id number] [place] [address] Jun, [facility] [address] [id number] [place] [address] Jun, [facility] [address] [id number] [place] [address] Jun, [facility] [address] [id number] [place] [address] Jun, [facility] [address] [id number] [place] [address] Jun, [facility] [address] [id number] [place] [address] Jun, [facility] [address] [id number] [place] [address] Jun, [facility] [address] [id number] [place] [address] Jun, [facility] [address] [id number] [place] [address] Jun, [facility] [address] [id number] [place] [address] May, [facility] [id number] [place] [address] May, [facility] [address] [id number] [place] [address] May, [facility] [id number] [place] [address] May, [facility] [address] [id number] [place] [address] 26 May, 2012 [facility] [address] [id number] [place] [address] 16 May, 2012 [facility] [address] [id number] [place] [address] 16 May, 2012 [facility] [address] [id number] [place] [address] 14 May, 2012 [facility] [address] [id number] [place] [address] 14 May, 2012 [facility] [address] [id number] [place] [address] 30 Apr, 2012 [facility] [address] [id number] [place] [address] 30 Apr, 2012 [facility] [address] [id number] [place] [address] 17 Apr, 2012 [facility] [address] [id number] [place] [address] 17 Apr, 2012 [facility] [address] [facility] [id number] [place] [address] 09 Apr, 2012 [facility] [address] [id number] [place] [address] 18 Mar, 2012 [facility] [address] [id number] [place] [address] 17 Mar, 2012 [facility] [address] [id number] [place] [address] 07 Mar, 2012 [facility] [address] [id number] [place] [address] 27 Feb, 2012 [facility] [address] [id number] [place] [address] 16 Feb, 2012 [facility] [address] [id number] [place] [address] 15 Feb, 2012 [facility] [address] [id number] [place] [address] Feb, [facility] [address] [facility] [id number] [facility] [place] [address] Jan, [facility] [address] [id number] [place] [address] Jan, [facility] [address] [id number] [place] [address] Jan, [facility] [address] [id number] [place] [address] Jan, [facility] [address] [id number] [place] [address] Jan, [facility] [address] [id number] [place] [address] Jan, [facility] [address] [id number] [place] [address] Dec, [facility] [address] [id number] [place] [address] Dec, [facility] [address] [id number] [place] [address] Dec, [facility] [address] [id number] [place] [address] November, [facility] [address] [id number] [place] [address] November, [facility] [address] [id number] [place] [address] November, [facility] [address] [id number] [place] [address] November, [facility] [address] [id number] [place] [address] Oct, [facility] [address] [id number] [place] [address] Oct, [facility] [address] [id number] [place] [address] Oct, [facility] [address] [id number] [place] [address] Sep, [facility] [address] [id number] [place] [address] Sep, [facility] [address] [id number] [place] [address] Aug, [facility] [address] [id number] [place] [address] Aug, [facility] [address] [id number] [place] [address] Aug, [facility] [address] [id number] [place] [address] Aug, [facility] [address] [id number] [place] [address] Jul, [facility] [address] [id number] [place] [address] Jul, [facility] [address] [id number] [place] [address] Jul, [facility] [address] [id number] [place] [address] Jul, [facility] [address] [id number] [place] [address] Jul, [facility] [id number] [place] [address] Jul, [facility] [address] [id number] [place] [address] Jul, [facility] [address] [id number] [place] [address] Jul, [facility] [address] [id number] [place] [address] Jun, [facility] [address] [id number] [place] [address] Jun, [facility] [address] [id number] [place] [address] 15 Jun, 2011 [facility] [address] [id number] [place] [address] Jun, [facility] [address] [id number] [place] [address] Jun, [facility] [address] [id number] [place] [address] May, [facility] [address] [id number] [place] [address] May, [facility] [address] [id number] [place] [address] May, [facility] [address] [id number] [place] [address] May, [facility] [address] [id number] [place] [address] May, [facility] [address] [id number] [place] [address] May, [facility] [address] [id number] [place] [address] Apr, [facility] [address] [id number] [place] [address] Apr, [facility] [address] [id number] [place] [address] Apr, [facility] [address] [id number] [place] [address] Feb, [facility] [address] [id number] [place] [address] Feb, [facility] [address] [id number] [place] [address] Oct, [facility] [address] [id number] [place] [address] Jul, [facility] [address] [id number] [place] [address] Jul, [facility] [address] [id number] [place] [address] Jun, [facility] [address] [facility] [id number] [place] [address] May, [facility] [address] [facility] [id number] [place] [address] May, [facility] [address] [facility] [id number] [place] [address] May, [facility] [address] [facility] [id number] [place] [address] Apr, [facility] [address] [facility] [id number] [place] [address] Jan, [facility] [address] [id number] [place] [address] November, IMMUNIZATIONS No Known Immunizations SOCIAL HISTORY [...]
--- OUTSIDE RECORDS SUMMARY | 2020-01-31 09:44 | XMS REPORT ---
Author Author Ivet TURNER Organization [facility] Address [address] [place] [address] Care Team Providers Care Stick Inserter Name Role Phone QUYEN TURNER Unavailable PROBLEMS Type Condition ICD9-CM Code DLB57-IS Code Onset Dates Condition S tatus SNOMED Code Problem Hypothyroidism E03.9 Active 37485 008 Problem GERD (gastroesophageal reflux disease) K21.9 Active 739194913 Problem Essential hypertension I10 Active 76228327 Problem Anxiety F41.9 Active 05971545 Problem Osteoarthritis M19.90 Active 22385 5006 Problem Schizo affective schizophrenia F25.0 Active 769894780 Problem Bilateral carotid artery disease I77.9 Active 628793335 Problem Low back pain, unspecified b ack pain laterality, unspecified chronicity, with sciatica presence unspecified M54.5 Active 811157581 Problem Vitamin D deficiency E55.9 Active 15818088 Problem Iron deficiency anemia, unspecified iron deficiency an emia type D50.9 Active 54709628 Problem Secondary hyperparathyroidism, not elsewhere classified E21.1 Active 34706698 Problem Lumbago with sciatica, right side M54.41 Active [id number] Problem Fibromyalgia M79.7 Active 7980475 05 Problem Other chronic pain G89.29 Active 8 0245345 Problem Stage 3 chronic kidney disease N18.3 Active 613805491 Problem Depression F32.9 Active 72098377 Problem Sensory loss R20.0 Active 4840990 9 Problem Idiopathic peripheral neuropathy G60.9 Active 28688006 Problem Acquired hypothyroidism E03.9 Active 202711963 Problem Lumbago with sciatica, left side M54.42 Active 610501947 ALLERGIES No Information ENCOUNTERS Encounter Location Date Diagnosis [facility] [address] [id number] [place] [address] Aug, Osteoarthritis M19.90 [facility] [address] [address] Jul, Osteoarthritis M19.90 [facility] [address] [address] Jun, Osteoarthritis M19.90 [facility] [address] [facility] [id number] [address] [place] [address] Jun, Herpes zoster without compli cation B02.9 [facility] [address] [address] May, Osteoarthritis M19.90 [facility] [address] [address] May, [facility] [address] [address] Apr, [place] [address] [address] Mar, Osteoarthritis M19.90 [facility] [address] [address] Mar, [facility] [address] [address] Feb, Lumbago with sciatica, left side M54.42 ; Lumbago with sciatica, right side M54.41 and Other chronic pain G89.29 [place] [address] [address] Feb, Encounter for Medicare annual wellness e xam Z00.00 ; Schizo affective schizophrenia F25.0 ; Essential hypertension I10 ; GERD (gastroesophageal reflux disease) K21.9 ; Secondary hyperparathyroidism, not elsewhere classified E21.1 ; Idiopathic peripheral neuropathy G60.9 ; Stage 3 chronic kidney disease N18.3 ; Acquired hypothyroidism E03.9 ; Bilateral carotid artery disease I77.9 and Hypothyroidism E03.9 [place] [address] [address] Feb, Osteoarthritis M19.90 [facility] [address] [address] Jan, Osteoarthritis M19.90 [facility] [address] [address] Jan, Osteoarthritis M19.90 [facility] [address] [address] Dec, Acquired hypothyroidism E03.9 [facility] [address] [address] Dec, Fibromyalgia M79.7 ; Hypothyroidism E03. 9 ; Essential hypertension I10 and Sensory loss R20.0 [address] [address] [address] [place] [address] November, Osteoarthritis M19.90 [facility] [address] [address] Oct, Osteoarthritis M19.90 [facility] [id number] [place] [address] Oct, Sore throat J02.9 and Acute nasopharyngitis J00 [facility] [address] [address] Sep, Osteoarthritis M19.90 [facility] [id number] [place] [address] Sep, Acute non-recurrent maxillar y sinusitis J01.00 [facility] [id number] [place] [address] Aug, Acute non-recurrent pansinus itis J01.40 [facility] [address] [address] Jul, Osteoarthritis M19.90 [facility] [address] [address] Jul, [facility] [address] [address] Apr, Osteoarthritis M19.90 [facility] [address] [address] Apr, Fibromyalgia M79.7 ; Essential hypertens ion I10 ; Encounter for immunization Z23 ; Stage 3 chronic kidney disease N18.3 and Depression F32.9 [facility] [address] [address] Dec, Fibromyalgia M79.7 ; Osteoarthritis M19. 90 and Encounter for medication management Z79.899 [facility] [address] [facility] [id number] [address] [place] [address] November, Nausea and vomiting, intract ability of vomiting not specified, unspecified vomiting type R11.2 and Dizziness R42 [place] [address] [address] November, Fibromyalgia M79.7 [place] [address] [address] November, Medicare annual wellness visit, initial Z00.00 ; Anxiety F41.9 ; Depression F32.9 ; Stage 3 chronic kidney disease N18.3 ; Fibromyalgia M79.7 ; Essential hypertension I10 ; Secondary hyperparathyroidism, not elsewhere classified E21.1 ; Osteoarthritis M19.90 ; Hypothyroidism E03.9 and Encounter for immunization Z23 [place] [address] [address] Oct, [place] [address] [address] Oct, Sebaceous cyst L72.3 [place] [address] [address] Sep, Low back pain, unspecified back pain lat erality, unspecified chronicity, with sciatica presence unspecified M54.5 and Secondary hyperparathyroidism, not elsewhere classified E21.1 [place] [address] [address] Sep, Fibromyalgia M79.7 [facility] [address] [address] Sep, Fibromyalgia M79.7 ; Plantar fasciitis, bilateral M72.2 ; Essential hypertension I10 ; Depression F32.9 and Epidermoid cyst L72.0 [place] [address] [address] Jul, [place] [address] [address] Jul, Fibromyalgia M79.7 ; Iron deficiency ane daniella, unspecified iron deficiency anemia type D50.9 and Acute nasopharyngitis J00 [facility] [address] [facility] [id number] [place] [address] Jun, Sore throat J02.9 and Acute serous otitis media of left ear, recurrence not specified H65.02 [place] [address] [address] Jun, Hypothyroidism E03.[address] [address] Jun, [place] [address] [address] Jun, Hypothyroidism E03.9 ; Essential hyperte nsion I10 and Osteoarthritis M19.[address] [address] May, [place] [address] [address] May, [place] [address] [address] Feb, [place] [address] [address] Feb, Leonela-menopausal N95.1 and Tobacco use Z7 2.0 [place] [address] [address] Jan, [address] [address] Jan, Osteoarthritis M19.90 ; Bilateral caroti d artery disease I77.9 ; Raynauds syndrome I73.00 ; Essential hypertension I10 ; Allergic rhinitis J30.9 ; Stage 3 chronic kidney disease N18.3 ; Fibromyalgia M79.7 ; Hypothyroidism E03.9 ; GERD (gastroesophageal reflux disease) K21.9 and Vitamin D deficiency E55.9 [facility] [address] [address] Dec, Raynauds syndrome I73.00 ; Plantar fasci al fibromatosis M72.2 ; Osteoarthritis M19.90 and Fibromyalgia M79.7 [place] [address] [address] Dec, [address] [address] Dec, [place] [address] [address] Oct, Function kidney decreased N28.9 [facility] [address] [id number] Oct, Dental examination Z01.[address] [address] Oct, Essential hypertension I10 and Function kidney decreased N28.9 [facility] [address] [id number] Oct, Dental examination Z01.20 [place] [address] [address] Oct, [address] [address] Sep, Other specified disorders involving the immune mechanism D89.89 and Schizo affective schizophrenia F25.[address] [address] Sep, Schizo affective schizophrenia F25.0 [place] [address] [address] Sep, Eustachian tube dysfunction, bilateral H 69.[address] [place] [address] 15 Sep, 2016 [facility] [address] [address] 14 Sep, 2016 [facility] [address] [address] 14 Sep, 2016 [place] [address] [address] 13 Sep, 2016 Eustachian tube dysfunction, bilateral H 69.83 [place] [address] [address] Sep, Allergic rhinitis J30.9 ; Essential hype rtension I10 ; Hypothyroidism E03.9 and Schizo affective schizophrenia F25.0 [place] [address] [address] Jul, Eustachian tube dysfunction, bilateral H 69.83 and Visit for TB skin test Z11.[address] [facility] [address] [facility] [id number] [place] [address] Jul, Subacute pansinusitis J01.40 [place] [address] [address] Jun, Schizo affective schizophrenia F25.0 ; D epression F32.9 ; Allergic rhinitis J30.9 ; Raynauds syndrome I73.00 ; Essential hypertension I10 ; Slow transit constipation K59.01 ; GERD (gastroesophageal reflux disease) K21.9 ; Hypothyroidism E03.9 ; Nicotine addiction F17.200 ; Other viral agents as the cause of diseases classified elsewhere B97.89 ; Acute upper respiratory infection, unspecified J06.9 and Osteoarthritis M19.90 [place] [address] [address] Jun, Allergic rhinitis J30.9 and GERD (gastro esophageal reflux disease) K21.9 [place] [address] [address] May, [place] [address] [address] Mar, Schizo affective schizophrenia F25.0 [place] [address] [address] Mar, Schizo affective schizophrenia F25.0 [place] [address] [address] 15 Mar, 2016 Schizo affective schizophrenia F25.0 [place] [address] [address] Mar, Acute non-recurrent maxillary sinusitis J01.00 [place] [address] [address] Feb, Schizo affective schizophrenia F25.0 [place] [address] [address] Feb, Contact dermatitis and eczema L25.9 [place] [address] [address] Jan, [place] [address] [address] Jan, Schizo affective schizophrenia F25.0 ; S low transit constipation K59.01 ; Essential hypertension I10 ; GERD (gastroesophageal reflux disease) K21.9 ; Hypothyroidism E03.9 ; Osteoarthritis M19.90 ; Low back pain, unspecified back pain laterality, unspecified chronicity, with sciatica presence unspecified M54.5 and Bilateral carotid artery disease I77.9 [place] [address] [address] Oct, [place] [address] [address] Sep, Hypothyroid E03.9 [place] [address] [address] Sep, Schizo affective schizophrenia F25.0 ; D epression F32.9 ; Anxiety F41.9 ; Allergic rhinitis J30.9 ; Raynauds syndrome I73.00 ; Insomnia G47.00 ; Essential hypertension I10 ; GERD (gastroesophageal reflux disease) K21.9 ; Hypothyroidism E03.9 and Vitamin D deficiency E55.9 [place] [address] [address] Sep, [facility] [address] [address] Sep, [place] [address] [address] Aug, Allergic rhinitis J30.9 ; Depression F32 .9 ; Anxiety F41.9 ; Raynauds syndrome I73.00 ; Insomnia G47.00 and GERD (gastroesophageal reflux disease) K21.9 [place] [address] [address] Aug, MONICA (secretory otitis media) H65.90 and Raynauds syndrome I73.[address] [facility] [address] [facility] [id number] [place] [address] Jul, Acute otitis externa of both ears, unspecified type H60.503 [place] [address] [address] Jun, [address] [address] Jun, Essential hypertension I10 ; Allergic rh initis J30.9 ; Hypothyroidism E03.9 and Osteoarthritis M19.90 [place] [address] [address] Jun, Routine adult health maintenance Z00.00 ; Hypothyroidism E03.9 ; Essential hypertension I10 ; Insomnia G47.00 ; Nicotine addiction F17.200 ; Raynauds syndrome I73.00 ; GERD (gastroesophageal reflux disease) K21.9 ; Allergic rhinitis J30.9 ; Anxiety F41.9 ; Depression F32.9 and Schizo affective schizophrenia F25.0 [place] [address] [address] May, Upper respiratory tract infection, unspe cified type J06.9 [facility] [address] [id number] [place] [address] 29 Mar, 2015 [facility] [address] [id number] [place] [id number] 24 Mar, 2015 [facility] [address] [id number] [place] [address] 19 Mar, 2015 [facility] [address] [id number] [place] [address] 18 Mar, 2015 [facility] [address] [id number] [place] [address] Feb, Jaw pain 784.92 and Environmental and se asonal allergies 477.8 [facility] [address] [id number] [place] [address] Feb, [facility] [address] [id number] [place] [address] Oct, [facility] [address] [id number] [place] [address] Oct, [facility] [address] [id number] [place] [address] Oct, [facility] [address] [id number] [place] [address] Oct, [facility] [address] [id number] [place] [address] Sep, [facility] [id number] [place] [address] Sep, [facility] [address] [id number] [place] [address] Jul, [facility] [id number] [place] [address] Jul, [facility] [id number] [place] [address] Jul, [facility] [id number] [place] [address] Jul, [facility] [address] [id number] [place] [address] Jul, [facility] [address] [id number] [place] [address] Jul, [facility] [address] [id number] [place] [address] Jul, [facility] [address] [id number] [place] [address] Jun, [facility] [address] [id number] [place] [address] Jun, [facility] [address] [id number] [place] [address] Jun, [facility] [address] [id number] [place] [address] 18 Jun, 2014 [facility] [address] [id number] [place] [address] 17 Jun, 2014 [facility] [address] [id number] [place] [address] Jun, [facility] [address] [id number] [place] [address] 16 Jun, 2014 [facility] [address] [id number] [place] [address] Jun, [facility] [address] [id number] [place] [address] 30 Apr, 2014 [facility] [address] [id number] [place] [address] 30 Apr, 2014 [facility] [address] [id number] [place] [address] 17 Mar, 2014 [facility] [address] [id number] [place] [address] 17 Mar, 2014 [facility] [address] [id number] [place] [address] Mar, [facility] [address] [id number] [place] [address] Mar, [facility] [address] [id number] [place] [address] Jan, [facility] [address] [id number] [place] [address] Jan, [facility] [address] [id number] [place] [address] Oct, [facility] [address] [id number] [place] [address] Oct, [facility] [address] [id number] [place] [address] Sep, [facility] [address] [id number] [place] [address] Sep, [facility] [address] [id number] [place] [address] Sep, [facility] [address] [id number] [place] [address] Sep, [facility] [address] [id number] [place] [address] Sep, [facility] [address] [id number] [place] [address] Sep, [facility] [address] [id number] [place] [address] Aug, [facility] [address] [id number] [place] [address] Aug, [facility] [address] [id number] [place] [address] Jul, [facility] [address] [id number] [place] [address] Jul, [facility] [address] [id number] [place] [address] Jul, [facility] [address] [id number] [place] [address] Jul, [facility] [address] [id number] [place] [address] Jun, [facility] [address] [facility] [id number] [place] [address] Jun, [facility] [address] [id number] [place] [address] May, [facility] [address] [id number] [place] [address] May, [facility] [address] [id number] [place] [address] Apr, [facility] [address] [id number] [place] [address] Apr, [facility] [address] [id number] [place] [address] Apr, [facility] [address] [id number] [place] [address] Apr, [facility] [address] [id number] [place] [address] Apr, [facility] [address] [id number] [place] [address] Apr, [facility] [address] [id number] [place] [address] 24 Mar, 2013 [facility] [address] [id number] [place] [address] Mar, 2012 [facility] [address] [id number] [place] [address] 09 Mar, 2012 [facility] [address] [id number] [place] [address] Mar, 2012 [facility] [address] [id number] [place] [address] 05 Mar, 2012 [facility] [address] [id number] [place] [address] Feb, [facility] [address] [id number] [place] [address] Feb, [facility] [address] [id number] [place] [address] Feb, [facility] [address] [id number] [place] [address] 08 Feb, 2013 [facility] [address] [facility] [id number] [place] [address] 18 Jan, 2013 [facility] [address] [facility] [id number] [place] [address] 17 Jan, 2013 [facility] [address] [facility] [id number] [place] [address] 16 Jan, 2013 [facility] [address] [facility] [id number] [place] [address] Jan, [facility] [address] [id number] [place] [address] Jan, [facility] [address] [id number] [place] [address] Jan, [facility] [address] [id number] [place] [address] 27 Dec, 2012 [facility] [address] [facility] [id number] [place] [address] 25 Dec, 2012 [facility] [address] [id number] [place] [address] Dec, [facility] [address] [id number] [place] [address] 14 Dec, 2012 [facility] [address] [id number] [place] [address] 13 Dec, 2012 [facility] [address] [facility] [id number] [place] [address] 12 Dec, 2012 [facility] [address] [id number] [place] [address] Dec, [facility] [address] [facility] [id number] [place] [address] 07 Dec, 2012 [facility] [address] [id number] [place] [address] Dec, [facility] [address] [id number] [place] [address] Dec, [facility] [address] [id number] [place] [address] November, [facility] [address] [id number] [place] [address] November, [facility] [address] [id number] [place] [address] November, [facility] [address] [id number] [place] [address] November, [facility] [address] [id number] [place] [address] November, [facility] [address] [id number] [place] [address] Oct, [facility] [address] [id number] [place] [address] Oct, [facility] [address] [id number] [place] [address] Oct, [facility] [address] [id number] [place] [address] Oct, [facility] [address] [id number] [place] [address] Oct, [facility] [address] [id number] [place] [address] Sep, [facility] [address] [id number] [place] [address] Sep, [facility] [address] [id number] [place] [address] Sep, [facility] [address] [id number] [place] [address] Sep, [facility] [address] [id number] [place] [address] Aug, [facility] [address] [id number] [place] [address] Aug, [facility] [address] [id number] [place] [address] Aug, [facility] [address] [id number] [place] [address] 15 Aug, 2012 [facility] [address] [id number] [place] [address] Jun, [facility] [address] [id number] [place] [address] Jun, [facility] [address] [id number] [place] [address] Jun, [facility] [address] [facility] [id number] [place] [address] Jun, [facility] [id number] [place] [address] Jun, [facility] [address] [id number] [place] [address] Jun, [facility] [address] [id number] [place] [address] Jun, [facility] [address] [id number] [place] [address] Jun, [facility] [address] [id number] [place] [address] Jun, [facility] [address] [id number] [place] [address] Jun, [facility] [address] [id number] [place] [address] May, [facility] [id number] [place] [address] May, [facility] [address] [id number] [place] [address] May, [facility] [address] [id number] [place] [address] May, [facility] [address] [id number] [place] [address] 26 May, 2012 [facility] [address] [id number] [place] [address] 16 May, 2012 [facility] [address] [id number] [place] [address] 16 May, 2012 [facility] [address] [id number] [place] [address] 14 May, 2012 [facility] [address] [id number] [place] [address] 14 May, 2012 [facility] [address] [id number] [place] [address] 30 Apr, 2012 [facility] [address] [id number] [place] [address] 30 Apr, 2012 [facility] [id number] [place] [address] 17 Apr, 2012 [facility] [address] [id number] [place] [address] 17 Apr, 2012 [facility] [address] [id number] [place] [address] 09 Apr, 2012 [facility] [address] [id number] [place] [address] 18 Mar, 2012 [facility] [address] [id number] [place] [address] 17 Mar, 2012 [facility] [address] [id number] [place] [address] 07 Mar, 2012 [facility] [address] [id number] [place] [address] 27 Feb, 2012 [facility] [id number] [place] [address] 16 Feb, 2012 [facility] [address] [id number] [place] [address] 15 Feb, 2012 [facility] [address] [id number] [place] [address] Feb, [facility] [address] [facility] [id number] [place] [address] Jan, [facility] [address] [id number] [place] [address] Jan, [facility] [address] [id number] [place] [address] Jan, [facility] [address] [id number] [place] [address] Jan, [facility] [address] [facility] [id number] [place] [address] Jan, [facility] [address] [id number] [place] [address] Jan, [facility] [address] [id number] [place] [address] Dec, [facility] [address] [id number] [place] [address] Dec, [facility] [address] [id number] [place] [address] Dec, [facility] [address] [id number] [place] [address] November, [facility] [address] [id number] [place] [address] November, [facility] [address] [id number] [place] [address] November, [facility] [address] [id number] [place] [address] November, [facility] [address] [id number] [place] [address] Oct, [facility] [address] [id number] [place] [address] Oct, [facility] [address] [id number] [place] [address] Oct, [facility] [address] [id number] [place] [address] 05 Sep, 2011 [facility] [address] [id number] [place] [address] Sep, [facility] [address] [id number] [place] [address] Aug, [facility] [address] [id number] [place] [address] Aug, [facility] [address] [id number] [place] [address] Aug, [facility] [address] [id number] [place] [address] Aug, [facility] [address] [id number] [place] [address] Jul, [facility] [address] [id number] [place] [address] Jul, [facility] [address] [id number] [place] [address] Jul, [facility] [address] [id number] [place] [address] Jul, [facility] [address] [id number] [place] [address] Jul, [facility] [address] [id number] [place] [address] Jul, [facility] [address] [id number] [place] [address] Jul, [facility] [address] [id number] [place] [address] Jul, [facility] [id number] [place] [address] Jun, [facility] [address] [id number] [place] [address] Jun, [facility] [address] [id number] [place] [address] Jun, [facility] [address] [id number] [place] [address] 08 Jun, 2011 [facility] [address] [id number] [place] [address] Jun, [facility] [address] [id number] [place] [address] May, [facility] [address] [id number] [place] [address] May, [facility] [address] [id number] [place] [address] May, [facility] [address] [id number] [place] [address] May, [facility] [address] [id number] [place] [address] May, [facility] [id number] [place] [address] May, [facility] [address] [id number] [place] [address] Apr, [facility] [address] [id number] [place] [address] Apr, [facility] [address] [id number] [place] [address] Apr, [facility] [address] [id number] [place] [address] Feb, [facility] [address] [id number] [place] [address] Feb, [facility] [address] [id number] [place] [address] Oct, [facility] [address] [id number] [place] [address] Jul, [facility] [address] [id number] [place] [address] Jul, [facility] [address] [id number] [place] [address] Jun, [facility] [address] [id number] [place] [address] May, [facility] [address] [id number] [place] [address] May, [facility] [address] [id number] [place] [address] May, [facility] [address] [id number] [place] [address] Apr, [facility] [address] [id number] [place] [address] Jan, [facility] [address] [id number] [place] [address] November, IMMUNIZATIONS No Known Immunizations SOCIAL HISTORY [...]
--- OUTSIDE RECORDS SUMMARY | 2020-01-31 09:45 | XMS REPORT ---
Author Author Ivet BRISENO Y Organization [facility] Address [address] [place] [address] Care Team Providers Care Electronic Equipment Maint Tech Name Role Phone LINDY BRISENO Unavailable PROBLEMS Type Condition ICD9-CM Code DYB12-NQ Code Onset Dates Condition S tatus SNOMED Code Problem Hypothyroidism E03.9 Active 63930 008 Problem GERD (gastroesophageal reflux disease) K21.9 Active 767535970 Problem Essential hypertension I10 Active 30005963 Problem Anxiety F41.9 Active 61547960 Problem Osteoarthritis M19.90 Active 59741 5006 Problem Schizo affective schizophrenia F25.0 Active 276565811 Problem Bilateral carotid artery disease I77.9 Active 559180822 Problem Low back pain, unspecified b ack pain laterality, unspecified chronicity, with sciatica presence unspecified M54.5 Active 145374642 Problem Vitamin D deficiency E55.9 Active 65771945 Problem Iron deficiency anemia, unspecified iron deficiency an emia type D50.9 Active 11031813 Problem Secondary hyperparathyroidism, not elsewhere classified E21.1 Active 05218720 Problem Lumbago with sciatica, right side M54.41 Active 664034635260544 Problem Fibromyalgia M79.7 Active 8160788 05 Problem Other chronic pain G89.29 Active 8 7330909 Problem Stage 3 chronic kidney disease N18.3 Active 162288412 Problem Depression F32.9 Active 52940023 Problem Sensory loss R20.0 Active 9595972 9 Problem Idiopathic peripheral neuropathy G60.9 Active 25126291 Problem Acquired hypothyroidism E03.9 Active 581608586 Problem Lumbago with sciatica, left side M54.42 Active 665351244 ALLERGIES No Information ENCOUNTERS Encounter Location Date Diagnosis [facility] [address] [facility] [id number] [address] [address] 18 Mar, 2019 Osteoarthritis M19.90 [facility] [address] [id number] [address] [place] [address] Mar, [facility] [address] [address] Feb, Lumbago with sciatica, left side M54.42 ; Lumbago with sciatica, right side M54.41 and Other chronic pain G89.29 [facility] [address] [id number] [address] [place] [address] Feb, [facility] ; Schizo affective schizophrenia F25.0 ; Essential hypertension I10 ; GERD (gastroesophageal reflux disease) K21.9 ; Secondary hyperparathyroidism, not elsewhere classified E21.1 ; Idiopathic peripheral neuropathy G60.9 ; Stage 3 chronic kidney disease N18.3 ; Acquired hypothyroidism E03.9 ; Bilateral carotid artery disease I77.9 and Hypothyroidism E03.9 [facility] [address] [address] Feb, Osteoarthritis M19.90 [facility] [address] [id number] [address] [place] [address] Jan, Osteoarthritis M19.90 [facility] [address] [address] Jan, Osteoarthritis M19.90 [facility] [address] [id number] [address] [place] [address] Dec, Acquired hypothyroidism E03. 9 [facility] [address] [id number] [address] [place] [address] Dec, Fibromyalgia M79.7 ; Hypothy roidism E03.9 ; Essential hypertension I10 and Sensory loss R20.[address] [address] November, Osteoarthritis M19.90 [facility] [address] [id number] [address] [place] [address] Oct, Osteoarthritis M19.90 [facility] [address] [id number] [address] [place] [address] Oct, Sore throat J02.9 and Acute nasopharyngitis J00 [facility] [address] [address] Sep, Osteoarthritis M19.90 [facility] [address] [address] Sep, Acute non-recurrent maxillar y sinusitis J01.00 [facility] [address] [address] Aug, Acute non-recurrent pansinus itis J01.40 [place] [address] [address] Jul, Osteoarthritis M19.90 [facility] [address] [address] Jul, [facility] [address] [address] Apr, Osteoarthritis M19.90 [place] [address] [address] Apr, Fibromyalgia M79.7 ; Essenti al hypertension I10 ; Encounter for immunization Z23 ; Stage 3 chronic kidney disease N18.3 and Depression F32.9 [place] [address] [address] Dec, Fibromyalgia M79.7 ; Osteoar thritis M19.90 and Encounter for medication management Z79.899 [facility] [address] [address] November, Nausea and vomiting, intract ability of vomiting not specified, unspecified vomiting type R11.2 and Dizziness R42 [facility] [address] [address] November, Fibromyalgia M79.7 [place] [address] [address] November, Medicare annual wellness vis it, initial Z00.00 ; Anxiety F41.9 ; Depression F32.9 ; Stage 3 chronic kidney disease N18.3 ; Fibromyalgia M79.7 ; Essential hypertension I10 ; Secondary hyperparathyroidism, not elsewhere classified E21.1 ; Osteoarthritis M19.90 ; Hypothyroidism E03.9 and Encounter for immunization Z23 [place] [address] [address] Oct, [place] [address] [address] Oct, Sebaceous cyst L72.3 [place] [address] [address] Sep, Low back pain, unspecified b ack pain laterality, unspecified chronicity, with sciatica presence unspecified M54.5 and Secondary hyperparathyroidism, not elsewhere classified E21.1 [place] [address] [address] Sep, Fibromyalgia M79.7 [place] [address] [address] Sep, Fibromyalgia M79.7 ; Plantar fasciitis, bilateral M72.2 ; Essential hypertension I10 ; Depression F32.9 and Epidermoid cyst L72.0 [place] [address] [address] Jul, [place] [address] [address] Jul, Fibromyalgia M79.7 ; Iron de ficiency anemia, unspecified iron deficiency anemia type D50.9 and Acute nasopharyngitis J00 [facility] [address] [address] Jun, Sore throat J02.9 and Acute serous otitis media of left ear, recurrence not specified H65.02 [place] [address] [address] Jun, Hypothyroidism E03.9 [place] [address] [address] Jun, [facility] [address] [address] Jun, Hypothyroidism E03.9 ; Essen tial hypertension I10 and Osteoarthritis M19.90 [place] [address] [address] May, [place] [address] [address] May, [place] [address] [address] Feb, [place] [address] [address] Feb, Leonela-menopausal N95.1 and To bacco use Z72.0 [place] [address] [address] Jan, [place] [address] [address] Jan, Osteoarthritis M19.90 ; Bila teral carotid artery disease I77.9 ; Raynauds syndrome I73.00 ; Essential hypertension I10 ; Allergic rhinitis J30.9 ; Stage 3 chronic kidney disease N18.3 ; Fibromyalgia M79.7 ; Hypothyroidism E03.9 ; GERD (gastroesophageal reflux disease) K21.9 and Vitamin D deficiency E55.9 [place] [address] [address] Dec, Raynauds syndrome I73.00 ; P lantar fascial fibromatosis M72.2 ; Osteoarthritis M19.90 and Fibromyalgia M79.7 [place] [address] [address] Dec, [place] [address] [place] [id number] [address] [place] [address] 13 Dec, 2016 [facility] [address] [id number] [address] [place] [address] Oct, Function kidney decreased N2 8.9 [facility] [address] [id number] [address] [place] [id number] Oct, Dental examination Z01.20 [facility] [address] [id number] [address] [place] [address] 18 Oct, 2016 Essential hypertension I10 a nd Function kidney decreased N28.9 [facility] [address] [id number] [address] [place] [id number] Oct, Dental examination Z01.20 [facility] [address] [id number] [address] [place] [address] Oct, [facility] [address] [id number] [address] [place] [address] 24 Sep, 2016 Other specified disorders in volving the immune mechanism D89.89 and Schizo affective schizophrenia F25.0 [facility] [address] [id number] [address] [place] [address] 21 Sep, 2016 Schizo affective schizophren ia F25.0 [facility] [address] [id number] [address] [place] [address] 16 Sep, 2016 Eustachian tube dysfunction, bilateral H69.83 [facility] [address] [id number] [address] [place] [address] 15 Sep, 2016 [facility] [address] [id number] [address] [place] [address] 14 Sep, 2016 [facility] [address] [id number] [address] [place] [address] 14 Sep, 2016 [facility] [address] [id number] [address] [place] [address] 13 Sep, 2016 Eustachian tube dysfunction, bilateral H69.83 [facility] [address] [address] Sep, Allergic rhinitis J30.9 ; Es sential hypertension I10 ; Hypothyroidism E03.9 and Schizo affective schizophrenia F25.0 [facility] [address] [address] Jul, Eustachian tube dysfunction, bilateral H69.83 and Visit for TB skin test Z11.1 [facility] [address] [address] Jul, Subacute pansinusitis J01.40 [place] [address] [address] Jun, Schizo affective schizophren ia F25.0 ; Depression F32.9 ; Allergic rhinitis J30.9 ; Raynauds syndrome I73.00 ; Essential hypertension I10 ; Slow transit constipation K59.01 ; GERD (gastroesophageal reflux disease) K21.9 ; Hypothyroidism E03.9 ; Nicotine addiction F17.200 ; Other viral agents as the cause of diseases classified elsewhere B97.89 ; Acute upper respiratory infection, unspecified J06.9 and Osteoarthritis M19.90 [place] [address] [address] Jun, Allergic rhinitis J30.9 and GERD (gastroesophageal reflux disease) K21.9 [place] [address] [address] May, [place] [address] [address] Mar, Schizo affective schizophren ia F25.0 [place] [address] [address] Mar, Schizo affective schizophren ia F25.0 [place] [address] [address] 15 Mar, 2016 Schizo affective schizophren ia F25.0 [place] [address] [address] Mar, Acute non-recurrent maxillar y sinusitis J01.00 [place] [address] [address] Feb, Schizo affective schizophren ia F25.0 [place] [address] [address] Feb, Contact dermatitis and eczem a L25.9 [place] [address] [address] Jan, [place] [address] [address] Jan, Schizo affective schizophren ia F25.0 ; Slow transit constipation K59.01 ; Essential hypertension I10 ; GERD (gastroesophageal reflux disease) K21.9 ; Hypothyroidism E03.9 ; Osteoarthritis M19.90 ; Low back pain, unspecified back pain laterality, unspecified chronicity, with sciatica presence unspecified M54.5 and Bilateral carotid artery disease I77.9 [place] [address] [address] Oct, [place] [address] [address] Sep, Hypothyroid E03.9 [place] [address] [address] Sep, Schizo affective schizophren ia F25.0 ; Depression F32.9 ; Anxiety F41.9 ; Allergic rhinitis J30.9 ; Raynauds syndrome I73.00 ; Insomnia G47.00 ; Essential hypertension I10 ; GERD (gastroesophageal reflux disease) K21.9 ; Hypothyroidism E03.9 and Vitamin D deficiency E55.9 [place] [address] [address] Sep, [place] [address] [address] Sep, [facility] [address] [facility] [id number] [address] [place] [address] Aug, Allergic rhinitis J30.9 ; De pression F32.9 ; Anxiety F41.9 ; Raynauds syndrome I73.00 ; Insomnia G47.00 and GERD (gastroesophageal reflux disease) K21.9 [facility] [id number] [place] [address] Aug, MONICA (secretory otitis media) H65.90 and Raynauds syndrome I73.00 [facility] [address] [id number] [address] [place] [address] Jul, Acute otitis externa of both ears, unspecified type H60.503 [place] [address] [place] [id number] [address] [place] [address] Jun, [place] [address] [address] Jun, Essential hypertension I10 ; Allergic rhinitis J30.9 ; Hypothyroidism E03.9 and Osteoarthritis M19.90 [place] [address] [id number] [place] [address] Jun, Routine adult health mainten ance Z00.00 ; Hypothyroidism E03.9 ; Essential hypertension I10 ; Insomnia G47.00 ; Nicotine addiction F17.200 ; Raynauds syndrome I73.00 ; GERD (gastroesophageal reflux disease) K21.9 ; Allergic rhinitis J30.9 ; Anxiety F41.9 ; Depression F32.9 and Schizo affective schizophrenia F25.0 [place] [address] [place] [address] May, Upper respiratory tract infe ction, unspecified type J06.9 [place] [address] [place] [id number] [address] [place] [address] Mar, [facility] [address] [id number] Payam MORGAN S [id number] Mar, [facility] [address] [id number] [address] [place] [address] Mar, [facility] [address] [id number] [address] [place] [address] Mar, [facility] [address] [id number] [address] [place] [address] Feb, Jaw pain 784.92 and Environm ental and seasonal allergies 477.8 [facility] [address] [id number] [address] [place] [address] Feb, [facility] [address] [id number] [address] [place] [address], [place] [address] Oct, [facility] [address] [id number] [address] [place] [address] Oct, [facility] [address] [id number] [address] [place] [address] Oct, [facility] [address] [id number] [address] [place] [address] Oct, [facility] [address] [id number] [address] [place] [address], [place] [address] Sep, [facility] [address] [id number] [address] [place] [address] Sep, [facility] [address] [id number] [address] [place] [address] Jul, [facility] [address] [id number] [address] [place] [address] Jul, [facility] [address] [id number] [address] [place] [address], [place] [address] Jul, [facility] [address] [id number] [address] [place] [address] Jul, [facility] [address] [id number] [address] [place] [address], [place] [address] Jul, [facility] [address] [id number] [address] [place] [address], [place] [address] 06 Jul, 2014 [facility] [address] [id number] [address] [place] [address], [place] [address] Jul, [facility] [address] [id number] [address] [place] [address], [place] [address] 31 Jun, 2014 [facility] [address] [id number] [address] [place] [address], [place] [address] 31 Jun, 2014 [facility] [address] [id number] [address] [place] [address], [place] [address] 22 Jun, 2014 [facility] [address] [id number] [address] [place] [address], [place] [address] 18 Jun, 2014 [facility] [address] [id number] [address] [place] [address], [place] [address] 17 Jun, 2014 [facility] [address] [id number] [address] [place] [address], [place] [address] 17 Jun, 2014 [facility] [address] [id number] [address] [place] [address], [place] [address] 16 Jun, 2014 [facility] [address] [id number] [address] [place] [address], [place] [address] 16 Jun, 2014 [facility] [address] [id number] [address] [place] [address], [place] [address] 30 Apr, 2014 [facility] [address] [id number] [address] [place] [address], [place] [address] 30 Apr, 2014 [facility] [address] [id number] [address] [place] [address], [place] [address] 17 Mar, 2014 [facility] [address] [id number] [address] [place] [address], [place] [address] 17 Mar, 2014 [facility] [address] [id number] [address] [place] [address], [place] [address] 03 Mar, 2014 [facility] [address] [id number] [address] [place] [address], [place] [address] Mar, [facility] [address] [id number] [address] [place] [address], [place] [address] Jan, [facility] [address] [id number] [address] [place] [address], [place] [address] Jan, [facility] [address] [id number] [address] [place] [address], [place] [address] Oct, [facility] [address] [id number] [address] [place] [address], [place] [address] Oct, [facility] [address] [id number] [address] [place] [address], [place] [address] Sep, [facility] [address] [id number] [address] [place] [address], [place] [address] Sep, [facility] [address] [id number] [address] [place] [address], [place] [address] Sep, [facility] [address] [id number] [address] [place] [address], [place] [address] Sep, [facility] [address] [id number] [address] [place] [address], [place] [address] Sep, [facility] [address] [id number] [address] [place] [address], [place] [address] Sep, [facility] [address] [id number] [address] [place] [address], [place] [address] Aug, [facility] [address] [id number] [address] [place] [address], [place] [address] Aug, [facility] [address] [id number] [address] [place] [address], [place] [address] Jul, [facility] [address] [id number] [address] [place] [address], [place] [address] Jul, [facility] [address] [id number] [address] [place] [address], [place] [address] Jul, [facility] [address] [id number] [address] [place] [address] Jul, [facility] [address] [id number] [address] [place] [address], [place] [address] Jun, [facility] [address] [id number] [address] [place] [address] Jun, [facility] [address] [id number] [address] [place] [address], [place] [address] May, [facility] [address] [id number] [address] [place] [address] May, [facility] [address] [id number] [address] [place] [address], [place] [address] Apr, [facility] [address] [id number] [address] [place] [address] Apr, [facility] [address] [id number] [address] [place] [address] Apr, [facility] [address] [id number] [address] [place] [address], [place] [address] Apr, [facility] [address] [id number] [address] [place] [address] Apr, [facility] [address] [id number] [address] [place] [address] Apr, [facility] [address] [id number] [address] [place] [address] 24 Mar, 2013 [facility] [address] [id number] [address] [place] [address] 12 Mar, 2013 [facility] [address] [id number] [address] [place] [address] 09 Sep, 2012 [facility] [address] [id number] [address] [place] [address] 05 Sep, 2012 [facility] [address] [id number] [address] [place] [address], [place] [address] 05 Sep, 2012 [facility] [address] [id number] [address] [place] [address], [place] [address] 30 Feb, 2013 [facility] [address] [id number] [address] [place] [address], [place] [address] Feb, [facility] [address] [id number] [address] [place] [address], [place] [address] Feb, [facility] [address] [id number] [address] [place] [address], [place] [address] Feb, [facility] [address] [id number] [address] [place] [address], [place] [address] Jan, [facility] [address] [id number] [address] [place] [address], [place] [address] Jan, [facility] [address] [id number] [address] [place] [address], [place] [address] 16 Jan, 2013 [facility] [address] [id number] [address] [place] [address], [place] [address] Jan, [facility] [address] [id number] [address] [place] [address], [place] [address] Jan, [facility] [address] [id number] [address] [place] [address], [place] [address] Jan, [facility] [address] [id number] [address] [place] [address], [place] [address] Dec, [facility] [address] [id number] [address] [place] [address], [place] [address] Dec, [facility] [address] [id number] [address] [place] [address], [place] [address] Dec, [facility] [address] [id number] [address] [place] [address], [place] [address] 14 Dec, 2012 [facility] [address] [id number] [address] [place] [address], [place] [address] Dec, [facility] [address] [id number] [address] [place] [address], [place] [address] Dec, [facility] [address] [id number] [address] [place] [address], [place] [address] Dec, [facility] [address] [id number] [address] [place] [address], [place] [address] Dec, [facility] [address] [id number] [address] [place] [address], [place] [address] Dec, [facility] [address] [id number] [address] [place] [address], [place] [address] Dec, [facility] [address] [id number] [address] [place] [address], [place] [address] November, [facility] [address] [id number] [address] [place] [address], [place] [address] November, [facility] [facility] [address] [id number] [address] [place] [address], [place] [address] November, [facility] [address] [id number] [address] [place] [address], [place] [address] November, [facility] [address] [id number] [address] [place] [address], [place] [address] November, [facility] [address] [id number] [address] [place] [address], [place] [address] Oct, [facility] [address] [id number] [address] [place] [address], [place] [address] Oct, [facility] [address] [id number] [address] [place] [address], [place] [address] Oct, [facility] [address] [id number] [address] [place] [address], [place] [address] Oct, [facility] [address] [id number] [address] [place] [address], [place] [address] Oct, [facility] [address] [id number] [address] [place] [address], [place] [address] Sep, [facility] [address] [id number] [address] [place] [address], [place] [address] 19 Sep, 2012 [facility] [address] [id number] [address] [place] [address], [place] [address] 18 Sep, 2012 [facility] [address] [id number] [address] [place] [address], [place] [address] 05 Sep, 2012 [facility] [address] [id number] [address] [place] [address], [place] [address] 26 Aug, 2012 [facility] [address] [id number] [address] [place] [address], [place] [address] 18 Aug, 2012 [facility] [address] [id number] [address] [place] [address], [place] [address] 18 Aug, 2012 [facility] [address] [id number] [address] [place] [address], [place] [address] 15 Aug, 2012 [facility] [address] [id number] [address] [place] [address], [place] [address] 17 Jun, 2012 [facility] [address] [id number] [address] [place] [address], [place] [address] 17 Jun, 2012 [facility] [address] [id number] [address] [place] [address], [place] [address] Jun, [facility] [address] [id number] [address] [place] [address], [place] [address] Jun, [facility] [address] [id number] [address] [place] [address], [place] [address] Jun, [facility] [address] [id number] [address] [place] [address], [place] [address] Jun, [facility] [address] [id number] [address] [place] [address], [place] [address] Jun, [facility] [address] [id number] [address] [place] [address], [place] [address] Jun, [facility] [address] [id number] [address] [place] [address], [place] [address] Jun, [facility] [address] [id number] [address] [place] [address], [place] [address] Jun, [facility] [address] [id number] [address] [place] [address], [place] [address] May, [facility] [address] [id number] [address] [place] [address], [place] [address] May, [facility] [address] [id number] [address] [place] [address], [place] [address] May, [facility] [address] [id number] [address] [place] [address], [place] [address] May, [facility] [address] [id number] [address] [place] [address], [place] [address] May, [facility] [address] [id number] [address] [place] [address], [place] [address] 16 May, 2012 [facility] [address] [id number] [address] [place] [address], [place] [address] 16 May, 2012 [facility] [address] [id number] [address] [place] [address], [place] [address] May, [facility] [address] [id number] [address] [place] [address], [place] [address] 14 May, 2012 [facility] [address] [id number] [address] [place] [address] Apr, [facility] [address] [id number] [address] [place] [address] Apr, [facility] [address] [id number] [address] [place] [address], [place] [address] Apr, [facility] [address] [id number] [address] [place] [address], [place] [address] Apr, [facility] [address] [id number] [address] [place] [address] Apr, [facility] [address] [id number] [address] [place] [address] 18 Mar, 2012 [facility] [address] [id number] [address] [place] [address], [place] [address] 17 Mar, 2012 [facility] [address] [id number] [address] [place] [address], [place] [address] 07 Mar, 2012 [facility] [address] [id number] [address] [place] [address], [place] [address] 27 Feb, 2012 [facility] [address] [id number] [address] [place] [address], [place] [address] 16 Feb, 2012 [facility] [address] [id number] [address] [place] [address], [place] [address] 15 Feb, 2012 [facility] [address] [id number] [address] [place] [address], [place] [address] 14 Feb, 2012 [facility] [address] [id number] [address] [place] [address], [place] [address] Jan, [facility] [address] [id number] [address] [place] [address], [place] [address] Jan, [facility] [address] [id number] [address] [place] [address], [place] [address] 24 Jan, 2012 [facility] [address] [id number] [address] [place] [address], [place] [address] Jan, [facility] [address] [id number] [address] [place] [address], [place] [address] 17 Jan, 2012 [facility] [address] [id number] [address] [place] [address], [place] [address] Jan, [facility] [address] [id number] [address] [place] [address], [place] [address] Dec, [facility] [address] [id number] [address] [place] [address], [place] [address] 14 Dec, 2011 [facility] [address] [id number] [address] [place] [address], [place] [address] 08 Dec, 2011 [facility] [address] [id number] [address] [place] [address], [place] [address] November, [facility] [address] [id number] [address] [place] [address], [place] [address] November, [facility] [address] [id number] [address] [place] [address], [place] [address] November, [facility] [address] [id number] [address] [place] [address], [place] [address] November, [facility] [address] [id number] [address] [place] [address], [place] [address] Oct, [facility] [address] [id number] [address] [place] [address], [place] [address] Oct, [facility] [address] [id number] [address] [place] [address], [place] [address] Oct, [facility] [address] [id number] [address] [place] [address], [place] [address] Sep, [facility] [address] [id number] [address] [place] [address], [place] [address] Sep, [facility] [address] [id number] [address] [place] [address], [place] [address] Aug, [facility] [address] [id number] [address] [place] [address], [place] [address] Aug, [facility] [address] [id number] [address] [place] [address], [place] [address] Aug, [facility] [address] [id number] [address] [place] [address], [place] [address] Aug, [facility] [address] [id number] [address] [place] [address], [place] [address] Jul, [facility] [address] [id number] [address] [place] [address], [place] [address] Jul, [facility] [address] [id number] [address] [place] [address], [place] [address] Jul, [facility] [address] [id number] [address] [place] [address], [place] [address] Jul, [facility] [address] [id number] [address] [place] [address], [place] [address] Jul, [facility] [address] [id number] [address] [place] [address], [place] [address] Jul, [facility] [address] [id number] [address] [place] [address], [place] [address] Jul, [facility] [address] [id number] [address] [place] [address], [place] [address] Jul, [facility] [address] [id number] [address] [place] [address], [place] [address] 30 Jun, 2011 [facility] [address] [id number] [address] [place] [address], [place] [address] Jun, [facility] [address] [id number] [address] [place] [address], [place] [address] 15 Jun, 2011 [facility] [address] [id number] [address] [place] [address], [place] [address] 08 Jun, 2011 [facility] [address] [id number] [address] [place] [address], [place] [address] Jun, [facility] [address] [id number] [address] [place] [address], [place] [address] 28 May, 2011 [facility] [address] [id number] [address] [place] [address], [place] [address] May, [facility] [address] [id number] [address] [place] [address], [place] [address] 17 May, 2011 [facility] [address] [id number] [address] [place] [address], [place] [address] 15 May, 2011 [facility] [address] [id number] [address] [place] [address], [place] [address] 08 May, 2011 [facility] [address] [id number] [address] [place] [address], [place] [address] 08 May, 2011 [facility] [address] [id number] [address] [place] [address], [place] [address] Apr, [facility] [address] [id number] [address] [place] [address], [place] [address] Apr, [facility] [address] [id number] [address] [place] [address], [place] [address] Apr, [facility] [address] [id number] [address] [place] [address], [place] [address] 17 Feb, 2011 [facility] [address] [id number] [address] [place] [address], [place] [address] Feb, [facility] [address] [id number] [address] [place] [address], [place] [address] Oct, [facility] [address] [id number] [address] [place] [address], [place] [address] Jul, [facility] [address] [id number] [address] [place] [address], [place] [address] Jul, [facility] [address] [id number] [address] [place] [address], [place] [address] Jun, [facility] [address] [id number] [address] [place] [address], [place] [address] May, [facility] [address] [id number] [address] [place] [address], [place] [address] May, [facility] [address] [id number] [address] [place] [address], [place] [address] May, [facility] [address] [id number] [address] [place] [address], [place] [address] Apr, [facility] [address] [id number] [address] [place] [address], [place] [address] Jan, [facility] [address] [id number] [address] [place] [address] November, IMMUNIZATIONS No Known Immunizations SOCIAL HISTORY Never Assessed REASON FOR VISIT PLAN OF CARE VITAL SIGNS Height 72 in 2014-06-28 Weight 178.88 lbs 2014-06-28 Temperature 97.3 degrees Fahrenheit 2014-06-28 Heart Rate 70 bpm 2014-06-28 Respiratory Rate 16 2014-06-28 Blood pressure systolic 142 mmHg 2014-06-28 Blood pressure diastolic 68 mmHg 2014-06-28 MEDICATIONS Unknown Medications RESULTS No Results PROCEDURES Procedure Date Ordered Result Body Site MAMMOGRAM, SCREENING Jun 28, 2014 INSTRUCTIONS MEDICATIONS ADMINISTERED No Known Medications MEDICAL [...]
--- OUTSIDE RECORDS SUMMARY | 2020-01-31 09:45 | XMS REPORT ---
Author Author Ivet BRISENO Y Organization [facility] Address [address] [place] [address] Care Team Providers Care Non Destructive Evaluation Specialist Name Role Phone LINDY BRISENO Unavailable PROBLEMS Type Condition ICD9-CM Code ONQ69-YI Code Onset Dates Condition S tatus SNOMED Code Problem Hypothyroidism E03.9 Active 68578 008 Problem GERD (gastroesophageal reflux disease) K21.9 Active 031323476 Problem Essential hypertension I10 Active 65958406 Problem Anxiety F41.9 Active 15903168 Problem Osteoarthritis M19.90 Active 40900 5006 Problem Schizo affective schizophrenia F25.0 Active 734658908 Problem Bilateral carotid artery disease I77.9 Active 124546596 Problem Low back pain, unspecified b ack pain laterality, unspecified chronicity, with sciatica presence unspecified M54.5 Active 776822455 Problem Vitamin D deficiency E55.9 Active 01357594 Problem Iron deficiency anemia, unspecified iron deficiency an emia type D50.9 Active 47555461 Problem Secondary hyperparathyroidism, not elsewhere classified E21.1 Active 06193293 Problem Lumbago with sciatica, right side M54.41 Active [id number] Problem Fibromyalgia M79.7 Active 7614024 05 Problem Other chronic pain G89.29 Active 8 5734231 Problem Stage 3 chronic kidney disease N18.3 Active 662170087 Problem Depression F32.9 Active 40862813 Problem Sensory loss R20.0 Active 6256450 9 Problem Idiopathic peripheral neuropathy G60.9 Active 04526044 Problem Acquired hypothyroidism E03.9 Active 341218273 Problem Lumbago with sciatica, left side M54.42 Active 298423047 ALLERGIES No Information ENCOUNTERS Encounter Location Date Diagnosis [facility] [address] [facility] [id number] [address] [address] 18 Mar, 2019 Osteoarthritis M19.90 [facility] [address] [place] [id number] [address] [place] [address] Mar, [facility] [address] [address] Feb, Lumbago with sciatica, left side M54.42 ; Lumbago with sciatica, right side M54.41 and Other chronic pain G89.29 [facility] [address] [id number] [address] [place] [id number] Feb, [facility] ; Schizo affective schizophrenia F25.0 ; Essential hypertension I10 ; GERD (gastroesophageal reflux disease) K21.9 ; Secondary hyperparathyroidism, not elsewhere classified E21.1 ; Idiopathic peripheral neuropathy G60.9 ; Stage 3 chronic kidney disease N18.3 ; Acquired hypothyroidism E03.9 ; Bilateral carotid artery disease I77.9 and Hypothyroidism E03.9 [facility] [address] [address] Feb, Osteoarthritis M19.90 [facility] [address] [id number] [place] [address] Jan, Osteoarthritis M19.90 [facility] [address] [address] Jan, Osteoarthritis M19.90 [facility] [address] [id number] [place] [address] Dec, Acquired hypothyroidism E03. 9 [facility] [address] [id number] [address] [place] [address] Dec, Fibromyalgia M79.7 ; Hypothy roidism E03.9 ; Essential hypertension I10 and Sensory loss R20.[address] [address] November, Osteoarthritis M19.90 [facility] [address] [id number] [address] [place] [address] Oct, Osteoarthritis M19.90 [facility] [address] [id number] [place] [address] Oct, Sore throat J02.9 and Acute nasopharyngitis J00 [facility] [address] [address] Sep, Osteoarthritis M19.90 [facility] [address] [address] Sep, Acute non-recurrent maxillar y sinusitis J01.00 [facility] [address] [address] Aug, Acute non-recurrent pansinus itis J01.40 [place] [address] [address] Jul, Osteoarthritis M19.90 [facility] [address] [address] Jul, [facility] [address] [address] Apr, Osteoarthritis M19.90 [place] [address] [address] Apr, Fibromyalgia M79.7 ; Essenti al hypertension I10 ; Encounter for immunization Z23 ; Stage 3 chronic kidney disease N18.3 and Depression F32.9 [place] [address] [address] Dec, Fibromyalgia M79.7 ; Osteoar thritis M19.90 and Encounter for medication management Z79.899 [facility] [address] [address] November, Nausea and vomiting, intract ability of vomiting not specified, unspecified vomiting type R11.2 and Dizziness R42 [facility] [address] [address] November, Fibromyalgia M79.7 [place] [address] [address] November, Medicare annual wellness vis it, initial Z00.00 ; Anxiety F41.9 ; Depression F32.9 ; Stage 3 chronic kidney disease N18.3 ; Fibromyalgia M79.7 ; Essential hypertension I10 ; Secondary hyperparathyroidism, not elsewhere classified E21.1 ; Osteoarthritis M19.90 ; Hypothyroidism E03.9 and Encounter for immunization Z23 [place] [address] [address] Oct, [place] [address] [address] Oct, Sebaceous cyst L72.3 [place] [address] [address] Sep, Low back pain, unspecified b ack pain laterality, unspecified chronicity, with sciatica presence unspecified M54.5 and Secondary hyperparathyroidism, not elsewhere classified E21.1 [place] [address] [address] Sep, Fibromyalgia M79.7 [place] [address] [address] Sep, Fibromyalgia M79.7 ; Plantar fasciitis, bilateral M72.2 ; Essential hypertension I10 ; Depression F32.9 and Epidermoid cyst L72.0 [place] [address] [address] Jul, [place] [address] [address] Jul, Fibromyalgia M79.7 ; Iron de ficiency anemia, unspecified iron deficiency anemia type D50.9 and Acute nasopharyngitis J00 [facility] [address] [address] Jun, Sore throat J02.9 and Acute serous otitis media of left ear, recurrence not specified H65.02 [place] [address] [address] Jun, Hypothyroidism E03.9 [place] [address] [address] Jun, [facility] [address] [address] Jun, Hypothyroidism E03.9 ; Essen tial hypertension I10 and Osteoarthritis M19.90 [place] [address] [address] May, [place] [address] [address] May, [place] [address] [address] Feb, [place] [address] [address] Feb, Leonela-menopausal N95.1 and To bacco use Z72.0 [place] [address] [address] Jan, [place] [address] [address] Jan, Osteoarthritis M19.90 ; Bila teral carotid artery disease I77.9 ; Raynauds syndrome I73.00 ; Essential hypertension I10 ; Allergic rhinitis J30.9 ; Stage 3 chronic kidney disease N18.3 ; Fibromyalgia M79.7 ; Hypothyroidism E03.9 ; GERD (gastroesophageal reflux disease) K21.9 and Vitamin D deficiency E55.9 [place] [address] [address] Dec, Raynauds syndrome I73.00 ; P lantar fascial fibromatosis M72.2 ; Osteoarthritis M19.90 and Fibromyalgia M79.7 [place] [address] [address] Dec, [place] [address] [place] [id number] [address] [place] [address] 13 Dec, 2016 [facility] [address] [id number] [address] [place] [address] Oct, Function kidney decreased N2 8.9 [facility] [address] [id number] [address] [place] [id number] Oct, Dental examination Z01.20 [facility] [address] [id number] [address] [place] [address] 18 Oct, 2016 Essential hypertension I10 a nd Function kidney decreased N28.9 [facility] [address] [id number] [address] [place] [id number] Oct, Dental examination Z01.20 [facility] [address] [id number] [address] [place] [address] Oct, [facility] [address] [id number] [address] [place] [id number] 24 Sep, 2016 Other specified disorders in volving the immune mechanism D89.89 and Schizo affective schizophrenia F25.0 [facility] [address] [id number] [address] [place] [id number] 21 Sep, 2016 Schizo affective schizophren ia F25.0 [facility] [address] [id number] [address] [place] [id number] 16 Sep, 2016 Eustachian tube dysfunction, bilateral H69.83 [facility] [address] [id number] [address] [place] [id number] 15 Sep, 2016 [facility] [address] [id number] [address] [place] [id number] 14 Sep, 2016 [facility] [address] [id number] [address] [place] [address] 14 Sep, 2016 [facility] [address] [id number] [address] [place] [address] 13 Sep, 2016 Eustachian tube dysfunction, bilateral H69.83 [facility] [address] [address] Sep, Allergic rhinitis J30.9 ; Es sential hypertension I10 ; Hypothyroidism E03.9 and Schizo affective schizophrenia F25.0 [facility] [address] [address] Jul, Eustachian tube dysfunction, bilateral H69.83 and Visit for TB skin test Z11.1 [facility] [address] [address] Jul, Subacute pansinusitis J01.40 [place] [address] [address] Jun, Schizo affective schizophren ia F25.0 ; Depression F32.9 ; Allergic rhinitis J30.9 ; Raynauds syndrome I73.00 ; Essential hypertension I10 ; Slow transit constipation K59.01 ; GERD (gastroesophageal reflux disease) K21.9 ; Hypothyroidism E03.9 ; Nicotine addiction F17.200 ; Other viral agents as the cause of diseases classified elsewhere B97.89 ; Acute upper respiratory infection, unspecified J06.9 and Osteoarthritis M19.90 [place] [address] [address] Jun, Allergic rhinitis J30.9 and GERD (gastroesophageal reflux disease) K21.9 [place] [address] [address] May, [place] [address] [address] Mar, Schizo affective schizophren ia F25.0 [place] [address] [address] Mar, Schizo affective schizophren ia F25.0 [place] [address] [address] 15 Mar, 2016 Schizo affective schizophren ia F25.0 [place] [address] [address] Mar, Acute non-recurrent maxillar y sinusitis J01.00 [place] [address] [address] Feb, Schizo affective schizophren ia F25.0 [place] [address] [address] Feb, Contact dermatitis and eczem a L25.9 [place] [address] [address] Jan, [place] [address] [address] Jan, Schizo affective schizophren ia F25.0 ; Slow transit constipation K59.01 ; Essential hypertension I10 ; GERD (gastroesophageal reflux disease) K21.9 ; Hypothyroidism E03.9 ; Osteoarthritis M19.90 ; Low back pain, unspecified back pain laterality, unspecified chronicity, with sciatica presence unspecified M54.5 and Bilateral carotid artery disease I77.9 [place] [address] [address] Oct, [place] [address] [address] Sep, Hypothyroid E03.9 [place] [address] [address] Sep, Schizo affective schizophren ia F25.0 ; Depression F32.9 ; Anxiety F41.9 ; Allergic rhinitis J30.9 ; Raynauds syndrome I73.00 ; Insomnia G47.00 ; Essential hypertension I10 ; GERD (gastroesophageal reflux disease) K21.9 ; Hypothyroidism E03.9 and Vitamin D deficiency E55.9 [place] [address] [address] Sep, [place] [address] [address] Sep, [facility] [address] [facility] [id number] [address] [place] [address] Aug, Allergic rhinitis J30.9 ; De pression F32.9 ; Anxiety F41.9 ; Raynauds syndrome I73.00 ; Insomnia G47.00 and GERD (gastroesophageal reflux disease) K21.9 [facility] [address] [place] [address] Aug, MONICA (secretory otitis media) H65.90 and Raynauds syndrome I73.00 [facility] [address] [id number] [address] [place] [address] Jul, Acute otitis externa of both ears, unspecified type H60.503 [place] [address] [id number] [place] [address] Jun, [place] [address] [address] Jun, Essential hypertension I10 ; Allergic rhinitis J30.9 ; Hypothyroidism E03.9 and Osteoarthritis M19.90 [place] [address] [id number] [place] [address] Jun, Routine adult health mainten ance Z00.00 ; Hypothyroidism E03.9 ; Essential hypertension I10 ; Insomnia G47.00 ; Nicotine addiction F17.200 ; Raynauds syndrome I73.00 ; GERD (gastroesophageal reflux disease) K21.9 ; Allergic rhinitis J30.9 ; Anxiety F41.9 ; Depression F32.9 and Schizo affective schizophrenia F25.0 [place] [address] [place] [address] May, Upper respiratory tract infe ction, unspecified type J06.9 [place] [address] [place] [id number] [address] [place] [address] Mar, [facility] [address] [id number] Payam MORGAN S [id number] Mar, [facility] [address] [id number] [address] [place] [phone] Mar, [facility] [address] [id number] [address] [place] [address] Mar, [facility] [address] [id number] [address] [place] [phone] Feb, Jaw pain 784.92 and Environm ental and seasonal allergies 477.8 [facility] [address] [id number] [address] [place] [phone] Feb, [facility] [address] [id number] [address] [place] [address], [place] [address] Oct, [facility] [address] [id number] [address] [place] [id number] Oct, [facility] [address] [id number] [address] [place] [address] Oct, [facility] [address] [id number] [address] [place] [id number] Oct, [facility] [address] [id number] [address] [place] [address], [place] [address] Sep, [facility] [address] [id number] [address] [place] [phone] Sep, [facility] [address] [id number] [address] [place] [address] Jul, [facility] [address] [id number] [address] [place] [address] Jul, [facility] [address] [id number] [address] [place] [address], [place] [address] Jul, [facility] [address] [id number] [address] [place] [address] Jul, [facility] [address] [id number] [address] [place] [address], [place] [address] Jul, [facility] [address] [id number] [address] [place] [address], [place] [address] 06 Jul, 2014 [facility] [address] [id number] [address] [place] [address], [place] [address] Jul, [facility] [address] [id number] [address] [place] [address], [place] [address] 31 Jun, 2014 [facility] [address] [id number] [address] [place] [address], [place] [address] 31 Jun, 2014 [facility] [address] [id number] [address] [place] [address], [place] [address] 22 Jun, 2014 [facility] [address] [id number] [address] [place] [address], [place] [address] 18 Jun, 2014 [facility] [address] [id number] [address] [place] [address], [place] [address] 17 Jun, 2014 [facility] [address] [id number] [address] [place] [address], [place] [address] 17 Jun, 2014 [facility] [address] [id number] [address] [place] [address], [place] [address] 16 Jun, 2014 [facility] [address] [id number] [address] [place] [address], [place] [address] 16 Jun, 2014 [facility] [address] [id number] [address] [place] [address], [place] [address] 30 Apr, 2014 [facility] [address] [id number] [address] [place] [address], [place] [address] 30 Apr, 2014 [facility] [address] [id number] [address] [place] [address], [place] [address] 17 Mar, 2014 [facility] [address] [id number] [address] [place] [address], [place] [address] 17 Mar, 2014 [facility] [address] [id number] [address] [place] [address], [place] [address] 03 Mar, 2014 [facility] [address] [id number] [address] [place] [address], [place] [address] Mar, [facility] [address] [id number] [address] [place] [address], [place] [address] Jan, [facility] [address] [id number] [address] [place] [address], [place] [address] Jan, [facility] [address] [id number] [address] [place] [address], [place] [address] Oct, [facility] [address] [id number] [address] [place] [address], [place] [address] Oct, [facility] [address] [id number] [address] [place] [address], [place] [address] Sep, [facility] [address] [id number] [address] [place] [address], [place] [address] Sep, [facility] [address] [id number] [address] [place] [address], [place] [address] Sep, [facility] [address] [id number] [address] [place] [address], [place] [address] Sep, [facility] [address] [id number] [address] [place] [address], [place] [address] Sep, [facility] [address] [id number] [address] [place] [address], [place] [address] Sep, [facility] [address] [id number] [address] [place] [address], [place] [address] Aug, [facility] [address] [id number] [address] [place] [address], [place] [address] Aug, [facility] [address] [id number] [address] [place] [address], [place] [address] Jul, [facility] [address] [id number] [address] [place] [address], [place] [address] Jul, [facility] [address] [id number] [address] [place] [address], [place] [address] Jul, [facility] [address] [id number] [address] [place] [phone] Jul, [facility] [address] [id number] [address] [place] [address], [place] [address] Jun, [facility] [address] [id number] [address] [place] [phone] Jun, [facility] [address] [id number] [address] [place] [address], [place] [address] May, [facility] [address] [id number] [address] [place] [phone] May, [facility] [address] [id number] [address] [place] [address], [place] [address] Apr, [facility] [address] [id number] [address] [place] [address] Apr, [facility] [address] [id number] [address] [place] [address] Apr, [facility] [address] [id number] [address] [place] [address], [place] [address] Apr, [facility] [address] [id number] [address] [place] [address] Apr, [facility] [address] [id number] [address] [place] [address] Apr, [facility] [address] [id number] [address] [place] [id number] 24 Mar, 2013 [facility] [address] [id number] [address] [place] [id number] 12 Mar, 2013 [facility] [address] [id number] [address] [place] [id number] 09 Sep, 2012 [facility] [address] [id number] [address] [place] [id number] 05 Sep, 2012 [facility] [address] [id number] [address] [place] [address], [place] [address] 05 Sep, 2012 [facility] [address] [id number] [address] [place] [address], [place] [address] 30 Feb, 2013 [facility] [address] [id number] [address] [place] [address], [place] [address] Feb, [facility] [address] [id number] [address] [place] [address], [place] [address] Feb, [facility] [address] [id number] [address] [place] [address], [place] [address] Feb, [facility] [address] [id number] [address] [place] [address], [place] [address] Jan, [facility] [address] [id number] [address] [place] [address], [place] [address] Jan, [facility] [address] [id number] [address] [place] [address], [place] [id number] 16 Jan, 2013 [facility] [address] [id number] [address] [place] [address], [place] [address] Jan, [facility] [address] [id number] [address] [place] [address], [place] [address] Jan, [facility] [address] [id number] [address] [place] [address], [place] [address] Jan, [facility] [address] [id number] [address] [place] [address], [place] [address] Dec, [facility] [address] [id number] [address] [place] [address], [place] [address] Dec, [facility] [address] [id number] [address] [place] [address], [place] [address] Dec, [facility] [address] [id number] [address] [place] [address], [place] [address] 14 Dec, 2012 [facility] [address] [id number] [address] [place] [address], [place] [address] Dec, [facility] [address] [id number] [address] [place] [address], [place] [address] Dec, [facility] [address] [id number] [address] [place] [address], [place] [address] Dec, [facility] [address] [id number] [address] [place] [address], [place] [address] Dec, [facility] [address] [id number] [address] [place] [address], [place] [address] Dec, [facility] [address] [id number] [address] [place] [address], [place] [address] Dec, [facility] [address] [id number] [address] [place] [address], [place] [address] November, [facility] [address] [id number] [address] [place] [address], [place] [address] November, [facility] [address] [id number] [address] [place] [address], [place] [address] November, [facility] [facility] [address] [id number] [address] [place] [address], [place] [address] November, [facility] [address] [id number] [address] [place] [address], [place] [address] November, [facility] [address] [id number] [address] [place] [address], [place] [address] Oct, [facility] [address] [id number] [address] [place] [address], [place] [address] Oct, [facility] [address] [id number] [address] [place] [address], [place] [address] Oct, [facility] [address] [id number] [address] [place] [address], [place] [address] Oct, [facility] [address] [id number] [address] [place] [address], [place] [address] Oct, [facility] [address] [id number] [address] [place] [address], [place] [address] Sep, [facility] [address] [id number] [address] [place] [address], [place] [address] 19 Sep, 2012 [facility] [address] [id number] [address] [place] [address], [place] [address] 18 Sep, 2012 [facility] [address] [id number] [address] [place] [address], [place] [address] 05 Sep, 2012 [facility] [address] [id number] [address] [place] [address], [place] [address] 26 Aug, 2012 [facility] [address] [id number] [address] [place] [address], [place] [address] 18 Aug, 2012 [facility] [address] [id number] [address] [place] [address], [place] [address] 18 Aug, 2012 [facility] [address] [id number] [address] [place] [address], [place] [address] 15 Aug, 2012 [facility] [address] [id number] [address] [place] [address], [place] [address] 17 Jun, 2012 [facility] [address] [id number] [address] [place] [address], [place] [address] 17 Jun, 2012 [facility] [address] [id number] [address] [place] [address], [place] [address] Jun, [facility] [address] [id number] [address] [place] [address], [place] [address] Jun, [facility] [address] [id number] [address] [place] [address], [place] [address] Jun, [facility] [address] [id number] [address] [place] [address], [place] [address] Jun, [facility] [address] [id number] [address] [place] [address], [place] [address] Jun, [facility] [address] [id number] [address] [place] [address], [place] [address] Jun, [facility] [address] [id number] [address] [place] [address], [place] [address] Jun, [facility] [address] [id number] [address] [place] [address], [place] [address] Jun, [facility] [address] [id number] [address] [place] [address], [place] [address] May, [facility] [address] [id number] [address] [place] [address], [place] [address] May, [facility] [address] [id number] [address] [place] [address], [place] [address] May, [facility] [address] [id number] [address] [place] [address], [place] [address] May, [facility] [address] [id number] [address] [place] [address], [place] [address] May, [facility] [address] [id number] [address] [place] [address], [place] [address] 16 May, 2012 [facility] [address] [id number] [address] [place] [address], [place] [address] 16 May, 2012 [facility] [address] [id number] [address] [place] [address], [place] [address] May, [facility] [address] [id number] [address] [place] [address], [place] [address] 14 May, 2012 [facility] [address] [id number] [address] [place] [address] Apr, [facility] [address] [id number] [address] [place] [address] Apr, [facility] [address] [id number] [address] [place] [address], [place] [address] Apr, [facility] [address] [id number] [address] [place] [address], [place] [address] Apr, [facility] [address] [id number] [address] [place] [id number] Apr, [facility] [address] [id number] [address] [place] [id number] 18 Mar, 2012 [facility] [address] [id number] [address] [place] [address], [place] [address] 17 Mar, 2012 [facility] [address] [id number] [address] [place] [address], [place] [address] 07 Mar, 2012 [facility] [address] [id number] [address] [place] [address], [place] [address] 27 Feb, 2012 [facility] [address] [id number] [address] [place] [address], [place] [address] 16 Feb, 2012 [facility] [address] [id number] [address] [place] [address], [place] [address] 15 Feb, 2012 [facility] [address] [id number] [address] [place] [address], [place] [address] 14 Feb, 2012 [facility] [address] [id number] [address] [place] [address], [place] [address] Jan, [facility] [address] [id number] [address] [place] [address], [place] [address] Jan, [facility] [address] [id number] [address] [place] [address], [place] [address] 24 Jan, 2012 [facility] [address] [id number] [address] [place] [address], [place] [address] Jan, [facility] [address] [id number] [address] [place] [address], [place] [address] 17 Jan, 2012 [facility] [address] [id number] [address] [place] [address], [place] [address] Jan, [facility] [address] [id number] [address] [place] [address], [place] [address] Dec, [facility] [address] [id number] [address] [place] [address], [place] [address] 14 Dec, 2011 [facility] [address] [id number] [address] [place] [address], [place] [address] 08 Dec, 2011 [facility] [address] [id number] [address] [place] [address], [place] [address] November, [facility] [address] [id number] [address] [place] [address], [place] [address] November, [facility] [address] [id number] [address] [place] [address], [place] [address] November, [facility] [address] [id number] [address] [place] [address], [place] [address] November, [facility] [address] [id number] [address] [place] [address], [place] [address] Oct, [facility] [address] [id number] [address] [place] [address], [place] [address] Oct, [facility] [address] [id number] [address] [place] [address], [place] [address] Oct, [facility] [address] [id number] [address] [place] [address], [place] [address] Sep, [facility] [address] [id number] [address] [place] [address], [place] [address] Sep, [facility] [address] [id number] [address] [place] [address], [place] [address] Aug, [facility] [address] [id number] [address] [place] [address], [place] [address] Aug, [facility] [address] [id number] [address] [place] [address], [place] [address] Aug, [facility] [address] [id number] [address] [place] [address], [place] [address] Aug, [facility] [address] [id number] [address] [place] [address], [place] [address] Jul, [facility] [address] [id number] [address] [place] [address], [place] [address] Jul, [facility] [address] [id number] [address] [place] [address], [place] [address] Jul, [facility] [address] [id number] [address] [place] [address], [place] [address] Jul, [facility] [address] [id number] [address] [place] [address], [place] [address] Jul, [facility] [address] [id number] [address] [place] [address], [place] [address] Jul, [facility] [address] [id number] [address] [place] [address], [place] [address] Jul, [facility] [address] [id number] [address] [place] [address], [place] [address] Jul, [facility] [address] [id number] [address] [place] [address], [place] [address] 30 Jun, 2011 [facility] [address] [id number] [address] [place] [address], [place] [address] Jun, [facility] [address] [id number] [address] [place] [address], [place] [address] 15 Jun, 2011 [facility] [address] [id number] [address] [place] [address], [place] [address] 08 Jun, 2011 [facility] [address] [id number] [address] [place] [address], [place] [address] Jun, [facility] [address] [id number] [address] [place] [address], [place] [address] 28 May, 2011 [facility] [address] [id number] [address] [place] [address], [place] [address] May, [facility] [address] [id number] [address] [place] [address], [place] [address] 17 May, 2011 [facility] [address] [id number] [address] [place] [address], [place] [address] 15 May, 2011 [facility] [address] [id number] [address] [place] [address], [place] [address] 08 May, 2011 [facility] [address] [id number] [address] [place] [address], [place] [address] 08 May, 2011 [facility] [address] [id number] [address] [place] [address], [place] [address] Apr, [facility] [address] [id number] [address] [place] [address], [place] [address] Apr, [facility] [address] [id number] [address] [place] [address], [place] [address] Apr, [facility] [address] [id number] [address] [place] [address], [place] [address] 17 Feb, 2011 [facility] [address] [id number] [address] [place] [address], [place] [address] Feb, [facility] [address] [id number] [address] [place] [address], [place] [address] Oct, [facility] [address] [id number] [address] [place] [address], [place] [address] Jul, [facility] [address] [id number] [address] [place] [address], [place] [address] Jul, [facility] [address] [id number] [address] [place] [address], [place] [address] Jun, [facility] [address] [id number] [address] [place] [address], [place] [address] May, [facility] [address] [id number] [address] [place] [address], [place] [address] May, [facility] [address] [id number] [address] [place] [address], [place] [address] May, [facility] [address] [id number] [address] [place] [address], [place] [address] Apr, [facility] [address] [id number] [address] [place] [address], [place] [address] Jan, [facility] [address] [id number] [address] [place] [id number] November, IMMUNIZATIONS No Known Immunizations SOCIAL HISTORY Never Assessed REASON FOR VISIT PLAN OF CARE VITAL SIGNS Weight 176.5 lbs 2014-07-19 Temperature 99 degrees Fahrenheit 2014-07-19 Heart Rate 68 bpm 2014-07-19 Respiratory Rate 16 2014-07-19 Blood pressure systolic 110 mmHg 2014-07-19 Blood pressure diastolic 68 mmHg 2014-07-19 MEDICATIONS Unknown Medications RESULTS No Results PROCEDURES Procedure Date Ordered Result Body Site SCR PAP SMER;NEW PT OBTAIN PREP&CONVY-LAB Jul 19, 2014 CYTOPATH C/V AUTO FLUID REDO Jul 19, 2014 TEST FOR BLOOD, FECES Jul 19, 2014 INSTRUCTIONS MEDICATIONS ADMINISTERED No Known Medications [...]
--- OUTSIDE RECORDS SUMMARY | 2020-01-31 09:45 | XMS REPORT ---
Author Author Ivet Knott Doctor Organization [facility] Address Unknown Phone Unavailable Care Team Providers Care Coating Engineer Name Role Phone Migration, Doctor Unavailable Unavailable PROBLEMS Type Condition ICD9-CM Code QDA94-CX Code Onset Dates Condition S tatus SNOMED Code Problem Hypothyroidism E03.9 Active 07165 008 Problem GERD (gastroesophageal reflux disease) K21.9 Active 199394717 Problem Essential hypertension I10 Active 71514967 Problem Anxiety F41.9 Active 96710900 Problem Osteoarthritis M19.90 Active 52079 5006 Problem Schizo affective schizophrenia F25.0 Active 283416397 Problem Bilateral carotid artery disease I77.9 Active 598784025 Problem Low back pain, unspecified b ack pain laterality, unspecified chronicity, with sciatica presence unspecified M54.5 Active 068419237 Problem Vitamin D deficiency E55.9 Active 32046985 Problem Iron deficiency anemia, unspecified iron deficiency an emia type D50.9 Active 98898227 Problem Secondary hyperparathyroidism, not elsewhere classified E21.1 Active 10919135 Problem Lumbago with sciatica, right side M54.41 Active [id number] Problem Fibromyalgia M79.7 Active 1220329 05 Problem Other chronic pain G89.29 Active 8 4691485 Problem Stage 3 chronic kidney disease N18.3 Active 125398133 Problem Depression F32.9 Active 68561323 Problem Sensory loss R20.0 Active 9874367 9 Problem Idiopathic peripheral neuropathy G60.9 Active 99896488 Problem Acquired hypothyroidism E03.9 Active 069866002 Problem Lumbago with sciatica, left side M54.42 Active [id number] ALLERGIES No Information ENCOUNTERS Encounter Location Date Diagnosis [facility] [id number] [place] [address] Mar, Osteoarthritis M19.90 [facility] [address] [id number] [address] [place] [address] Mar, [facility] [address] [place] [address] Feb, Lumbago with sciatica, left side M54.42 ; Lumbago with sciatica, right side M54.41 and Other chronic pain G89.29 [facility] [id number] [place] [address] Feb, [facility] Z00.00 ; Schizo affective schizophrenia F25.0 ; Essential hypertension I10 ; GERD (gastroesophageal reflux disease) K21.9 ; Secondary hyperparathyroidism, not elsewhere classified E21.1 ; Idiopathic peripheral neuropathy G60.9 ; Stage 3 chronic kidney disease N18.3 ; Acquired hypothyroidism E03.9 ; Bilateral carotid artery disease I77.9 and Hypothyroidism E03.9 [facility] [address] [id number] [place] [address] Feb, Osteoarthritis M19.90 [facility] [address] [address] Jan, Osteoarthritis M19.90 [facility] [address] [address] Jan, Osteoarthritis M19.90 [facility] [id number] [address] [place] [address] Dec, Acquired hypothyroidism E03. 9 [facility] [id number] [address] [place] [address] Dec, Fibromyalgia M79.7 ; Hypothy roidism E03.9 ; Essential hypertension I10 and Sensory loss R20.[address] [address] November, Osteoarthritis M19.90 [facility] [id number] [address] [place] [address] Oct, Osteoarthritis M19.90 [facility] [address] [id number] [address] [place] [phone] Oct, Sore throat J02.9 and Acute nasopharyngitis J00 [facility] [address] [facility] [id number] [address] [place] [address] Sep, Osteoarthritis M19.90 [facility] [address] [facility] [id number] [address] [place] [phone] Sep, Acute non-recurrent maxillar y sinusitis J01.00 [facility] [address] [facility] [id number] [address] [place] [id number] 18 Aug, 2018 Acute non-recurrent pansinus itis J01.40 [facility] [address] [facility] [id number] [address] [place] [address] Jul, Osteoarthritis M19.90 [facility] [address] [facility] [id number] [address] [place] [address] Jul, [facility] [id number] [place] [address] Apr, Osteoarthritis M19.90 [facility] [address] [address] Apr, Fibromyalgia M79.7 ; Essenti al hypertension I10 ; Encounter for immunization Z23 ; Stage 3 chronic kidney disease N18.3 and Depression F32.9 [facility] [address] [id number] [address] [place] [address] Dec, Fibromyalgia M79.7 ; Osteoar thritis M19.90 and Encounter for medication management Z79.899 [facility] [address] [id number] [address] [place] [address] November, Nausea and vomiting, intract ability of vomiting not specified, unspecified vomiting type R11.2 and Dizziness R42 [facility] [address] [address] November, Fibromyalgia M79.7 [facility] [address] [address] November, Medicare annual wellness vis it, initial Z00.00 ; Anxiety F41.9 ; Depression F32.9 ; Stage 3 chronic kidney disease N18.3 ; Fibromyalgia M79.7 ; Essential hypertension I10 ; Secondary hyperparathyroidism, not elsewhere classified E21.1 ; Osteoarthritis M19.90 ; Hypothyroidism E03.9 and Encounter for immunization Z23 [facility] [id number] [address] [place] [phone] Oct, [address] [place] [address] [address] Oct, Sebaceous cyst L72.3 [place] [id number] [place] [address] Sep, Low back pain, unspecified b ack pain laterality, unspecified chronicity, with sciatica presence unspecified M54.5 and Secondary hyperparathyroidism, not elsewhere classified E21.1 [address] [address] [address] Sep, Fibromyalgia M79.7 [address] [address] [address] Sep, Fibromyalgia M79.7 ; Plantar fasciitis, bilateral M72.2 ; Essential hypertension I10 ; Depression F32.9 and Epidermoid cyst L72.0 [place] [address] [address] Jul, [address] [address] [address] Jul, Fibromyalgia M79.7 ; Iron de ficiency anemia, unspecified iron deficiency anemia type D50.9 and Acute nasopharyngitis J00 [facility] [id number] [place] [address] Jun, Sore throat J02.9 and Acute serous otitis media of left ear, recurrence not specified H65.02 [facility] [address] [address] Jun, Hypothyroidism E03.9 [place] [address] [place] [address] Jun, [facility] [address] [address] Jun, Hypothyroidism E03.9 ; Essen tial hypertension I10 and Osteoarthritis M19.90 [address] [address] [address] May, [address] [address] [address] May, [place] [address] [address] Feb, [address] [address] [address] Feb, Leonela-menopausal N95.1 and To bacco use Z72.0 [place] [address] [address] Jan, [place] [address] [address] Jan, Osteoarthritis M19.90 ; Bila teral carotid artery disease I77.9 ; Raynauds syndrome I73.00 ; Essential hypertension I10 ; Allergic rhinitis J30.9 ; Stage 3 chronic kidney disease N18.3 ; Fibromyalgia M79.7 ; Hypothyroidism E03.9 ; GERD (gastroesophageal reflux disease) K21.9 and Vitamin D deficiency E55.9 [place] [id number] [place] [address] Dec, Raynauds syndrome I73.00 ; P lantar fascial fibromatosis M72.2 ; Osteoarthritis M19.90 and Fibromyalgia M79.7 [place] [address] [address] Dec, [place] [address] [address] Dec, [address] [address] [place] [address] Oct, Function kidney decreased N2 8.9 [facility] [address] [id number] [address] [place] [id number] Oct, Dental examination Z01.20 [facility] [address] [id number] [address] [place] [address] 18 Oct, 2016 Essential hypertension I10 a nd Function kidney decreased N28.9 [facility] [address] [id number] [address] [place] [id number] Oct, Dental examination Z01.20 [facility] [address] [id number] [address] [place] [address] Oct, [facility] [address] [facility] [id number] [address] [place] [address] 24 Sep, 2016 Other specified disorders in volving the immune mechanism D89.89 and Schizo affective schizophrenia F25.0 [facility] [address] [facility] [id number] [address] [place] [address] 21 Sep, 2016 Schizo affective schizophren ia F25.0 [facility] [address] [id number] [address] [place] [address] 16 Sep, 2016 Eustachian tube dysfunction, bilateral H69.83 [facility] [address] [facility] [id number] [address] [place] [phone] 15 Sep, 2016 [facility] [address] [id number] [address] [place] [address] 14 Sep, 2016 [facility] [address] [id number] [address] [place] [address] 14 Sep, 2016 [facility] [address] [facility] [id number] [address] [place] [address] 13 Sep, 2016 Eustachian tube dysfunction, bilateral H69.83 [facility] [address] [facility] [id number] [address] [place] [phone] 09 Sep, 2016 Allergic rhinitis J30.9 ; Es sential hypertension I10 ; Hypothyroidism E03.9 and Schizo affective schizophrenia F25.0 [facility] [id number] [address] [place] [address] Jul, Eustachian tube dysfunction, bilateral H69.83 and Visit for TB skin test Z11.1 [facility] [address] [id number] [address] [place] [address] Jul, Subacute pansinusitis J01.40 [facility] [id number] [place] [address] Jun, Schizo affective schizophren ia F25.0 ; Depression F32.9 ; Allergic rhinitis J30.9 ; Raynauds syndrome I73.00 ; Essential hypertension I10 ; Slow transit constipation K59.01 ; GERD (gastroesophageal reflux disease) K21.9 ; Hypothyroidism E03.9 ; Nicotine addiction F17.200 ; Other viral agents as the cause of diseases classified elsewhere B97.89 ; Acute upper respiratory infection, unspecified J06.9 and Osteoarthritis M19.90 [facility] [address] [id number] [address] [place] [address] Jun, Allergic rhinitis J30.9 and GERD (gastroesophageal reflux disease) K21.9 [place] [address] [place] [address] May, [address] [address] [id number] [place] [phone] Mar, Schizo affective schizophren ia F25.0 [facility] [id number] [address] [place] [phone] Mar, Schizo affective schizophren ia F25.0 [place] [id number] [place] [address] 15 Mar, 2016 Schizo affective schizophren ia F25.0 [place] [id number] [place] [address] 06 Mar, 2016 Acute non-recurrent maxillar y sinusitis J01.00 [place] [address] [address] Feb, Schizo affective schizophren ia F25.0 [address] [address] [address] Feb, Contact dermatitis and eczem a L25.9 [address] [address] [address] Jan, [address] [address] [address] Jan, Schizo affective schizophren ia F25.0 ; Slow transit constipation K59.01 ; Essential hypertension I10 ; GERD (gastroesophageal reflux disease) K21.9 ; Hypothyroidism E03.9 ; Osteoarthritis M19.90 ; Low back pain, unspecified back pain laterality, unspecified chronicity, with sciatica presence unspecified M54.5 and Bilateral carotid artery disease I77.9 [address] [address] [address] Oct, [address] [address] [address] Sep, Hypothyroid E03.9 [place] [address] [address] Sep, Schizo affective schizophren ia F25.0 ; Depression F32.9 ; Anxiety F41.9 ; Allergic rhinitis J30.9 ; Raynauds syndrome I73.00 ; Insomnia G47.00 ; Essential hypertension I10 ; GERD (gastroesophageal reflux disease) K21.9 ; Hypothyroidism E03.9 and Vitamin D deficiency E55.9 [address] [address] [address] Sep, [address] [address] [address] Sep, [address] [address] [address] Aug, Allergic rhinitis J30.9 ; De pression F32.9 ; Anxiety F41.9 ; Raynauds syndrome I73.00 ; Insomnia G47.00 and GERD (gastroesophageal reflux disease) K21.9 [facility] [id number] [place] [address] Aug, MONICA (secretory otitis media) H65.90 and Raynauds syndrome I73.00 [facility] [address] [address] Jul, Acute otitis externa of both ears, unspecified type H60.503 [place] [address] [address] Jun, [place] [address] [address] Jun, Essential hypertension I10 ; Allergic rhinitis J30.9 ; Hypothyroidism E03.9 and Osteoarthritis M19.90 [place] [address] [address] Jun, Routine adult health mainten ance Z00.00 ; Hypothyroidism E03.9 ; Essential hypertension I10 ; Insomnia G47.00 ; Nicotine addiction F17.200 ; Raynauds syndrome I73.00 ; GERD (gastroesophageal reflux disease) K21.9 ; Allergic rhinitis J30.9 ; Anxiety F41.9 ; Depression F32.9 and Schizo affective schizophrenia F25.0 [place] [id number] [place] [address] May, Upper respiratory tract infe ction, unspecified type J06.9 [place] [address] [place] [address] Mar, [facility] [id number] [place] [id number] Mar, [place] [id number] [place] [address] Mar, [place] [address] [place] [address] Mar, [facility] [address] [id number] [address] [place] [address] Feb, Jaw pain 784.92 and Environm ental and seasonal allergies 477.8 [facility] [address] [id number] [address] [place] [phone] Feb, [facility] [address] [id number] [address] [place] [phone] Oct, [facility] [address] [id number] [address] [place] [address] Oct, [facility] [address] [id number] [address] [place] [phone] Oct, [facility] [address] [id number] [address] [place] [address] Oct, [facility] [address] [id number] [address] [place] [phone] Sep, [facility] [address] [id number] [address] [place] [phone] Sep, [facility] [address] [id number] [address] [place] [phone] Jul, [facility] [address] [id number] [address] [place] [phone] Jul, [facility] [address] [id number] [address] [place] [phone] Jul, [facility] [address] [id number] [address] [place] [phone] Jul, [facility] [address] [id number] [address] [place] [phone] Jul, [facility] [address] [id number] [address] [place] [phone] Jul, [facility] [address] [id number] [address] [place] [phone] Jul, [facility] [address] [id number] [address] [place] [address], [place] [address] 31 Jun, 2014 [facility] [address] [id number] [address] [place] [address], [place] [address] 31 Jun, 2014 [facility] [address] [id number] [address] [place] [address], [place] [address] 22 Jun, 2014 [facility] [address] [id number] [address] [place] [address], [place] [address] 18 Jun, 2014 [facility] [address] [id number] [address] [place] [address], [place] [address] 17 Jun, 2014 [facility] [address] [id number] [address] [place] [address], [place] [address] 17 Jun, 2014 [facility] [address] [id number] [address] [place] [address], [place] [address] 16 Jun, 2014 [facility] [address] [id number] [address] [place] [address], [place] [address] 16 Jun, 2014 [facility] [address] [id number] [address] [place] [address], [place] [address] 30 Apr, 2014 [facility] [address] [id number] [address] [place] [address], [place] [address] 30 Apr, 2014 [facility] [address] [id number] [address] [place] [address], [place] [address] 17 Mar, 2014 [facility] [place] [facility] [address] [id number] [address] [place] [address], [place] [address] 17 Mar, 2014 [facility] [place] [facility] [address] [id number] [address] [place] [address], [place] [address] 03 Mar, 2014 [facility] [place] [facility] [address] [id number] [address] [place] [address], [place] [address] 03 Mar, 2014 [facility] [place] [facility] [address] [id number] [address] [place] [address], [place] [address] 16 Jan, 2014 [facility] [place] [facility] [address] [id number] [address] [place] [address], [place] [address] Jan, [facility] [address] [id number] [address] [place] [address], [place] [address] Oct, [facility] [place] [facility] [address] [id number] [address] [place] [address], [place] [address] Oct, [facility] [address] [id number] [address] [place] [address], [place] [address] Sep, [facility] [place] [facility] [address] [id number] [address] [place] [address], [place] [address] Sep, [facility] [address] [id number] [address] [place] [address], [place] [address] Sep, [facility] [address] [id number] [address] [place] [address], [place] [address] Sep, [facility] [place] [facility] [address] [id number] [address] [place] [address], [place] [address] Sep, [facility] [address] [id number] [address] [place] [address], [place] [address] Sep, [facility] [address] [id number] [address] [place] [address], [place] [address] Aug, [facility] [address] [id number] [address] [place] [address], [place] [address] Aug, [facility] [place] [facility] [address] [id number] [address] [place] [address], [place] [address] Jul, [facility] [place] [facility] [address] [id number] [address] [place] [address], [place] [address] Jul, [facility] [place] [facility] [address] [id number] [address] [place] [address], [place] [address] Jul, [facility] [place] [facility] [address] [id number] [address] [place] [address], [place] [address] Jul, [facility] [place] [facility] [address] [id number] [address] [place] [address], [place] [address] Jun, [facility] [address] [id number] [address] [place] [address], [place] [address] Jun, [facility] [address] [id number] [address] [place] [address], [place] [address] May, [facility] [address] [id number] [address] [place] [address], [place] [address] May, [facility] [address] [id number] [address] [place] [address], [place] [address] Apr, [facility] [address] [id number] [address] [place] [address], [place] [address] Apr, [facility] [address] [id number] [address] [place] [address], [place] [address] Apr, [facility] [address] [id number] [address] [place] [address], [place] [address] Apr, [facility] [address] [id number] [address] [place] [phone] Apr, [facility] [address] [id number] [address] [place] [address], [place] [address] Apr, [facility] [address] [id number] [address] [place] [phone] Mar, [facility] [address] [id number] [address] [place] [phone] Mar, [facility] [address] [id number] [address] [place] [id number] 09 Mar, 2013 [facility] [address] [id number] [address] [place] [address], [place] [address] 05 Mar, 2013 [facility] [address] [id number] [address] [place] [phone] Mar, [facility] [address] [id number] [address] [place] [phone] Feb, [facility] [address] [id number] [address] [place] [address], [place] [address] Feb, [facility] [address] [id number] [address] [place] [address], [place] [address] Feb, [facility] [address] [id number] [address] [place] [address], [place] [address] Feb, [facility] [address] [id number] [address] [place] [address], [place] [address] 18 Jan, 2013 [facility] [address] [id number] [address] [place] [address], [place] [address] 17 Jan, 2013 [facility] [address] [id number] [address] [place] [address], [place] [address] 16 Jan, 2013 [facility] [address] [id number] [address] [place] [address], [place] [address] Jan, [facility] [address] [id number] [address] [place] [address], [place] [address] Jan, [facility] [address] [id number] [address] [place] [address], [place] [address] Jan, [facility] [address] [id number] [address] [place] [address], [place] [address] Dec, [facility] [address] [id number] [address] [place] [address], [place] [address] Dec, [facility] [address] [id number] [address] [place] [address], [place] [address] Dec, [facility] [address] [id number] [address] [place] [address], [place] [address] 14 Dec, 2012 [facility] [address] [id number] [address] [place] [address], [place] [address] 13 Dec, 2012 [facility] [address] [id number] [address] [place] [address], [place] [address] 12 Dec, 2012 [facility] [address] [id number] [address] [place] [address], [place] [address] Dec, [facility] [address] [id number] [address] [place] [address], [place] [address] Dec, [facility] [address] [id number] [address] [place] [address], [place] [address] Dec, [facility] [address] [id number] [address] [place] [address], [place] [address] Dec, [facility] [address] [id number] [address] [place] [address], [place] [address] November, [facility] [address] [id number] [address] [place] [address], [place] [address] November, [facility] [address] [id number] [address] [place] [address], [place] [address] November, [facility] [address] [id number] [address] [place] [address], [place] [address] November, [facility] [address] [id number] [address] [place] [address], [place] [address] November, [facility] [address] [id number] [address] [place] [address], [place] [address] Oct, [facility] [address] [id number] [address] [place] [address], [place] [address] Oct, [facility] [address] [id number] [address] [place] [address], [place] [address] Oct, [facility] [address] [id number] [address] [place] [address], [place] [address] Oct, [facility] [address] [id number] [address] [place] [address], [place] [address] Oct, [facility] [address] [id number] [address] [place] [address], [place] [address] Sep, [facility] [address] [id number] [address] [place] [address], [place] [address] Sep, [facility] [address] [id number] [address] [place] [address], [place] [address] Sep, [facility] [address] [id number] [address] [place] [address], [place] [address] 05 Sep, 2012 [facility] [address] [id number] [address] [place] [address], [place] [address] 26 Aug, 2012 [facility] [address] [id number] [address] [place] [address], [place] [address] 18 Aug, 2012 [facility] [address] [id number] [address] [place] [address], [place] [address] 18 Aug, 2012 [facility] [address] [id number] [address] [place] [address], [place] [address] 15 Aug, 2012 [facility] [address] [id number] [address] [place] [address], [place] [address] Jun, [facility] [address] [id number] [address] [place] [address], [place] [address] Jun, [facility] [address] [id number] [address] [place] [address], [place] [address] Jun, [facility] [address] [id number] [address] [place] [address], [place] [address] Jun, [facility] [address] [id number] [address] [place] [address], [place] [address] Jun, [facility] [address] [id number] [address] [place] [address], [place] [address] Jun, [facility] [address] [id number] [address] [place] [address], [place] [address] Jun, [facility] [address] [id number] [address] [place] [address], [place] [address] Jun, [facility] [address] [id number] [address] [place] [address], [place] [address] Jun, [facility] [address] [id number] [address] [place] [address], [place] [address] Jun, [facility] [address] [id number] [address] [place] [address], [place] [address] 28 May, 2012 [facility] [address] [id number] [address] [place] [address], [place] [address] 27 May, 2012 [facility] [address] [id number] [address] [place] [address], [place] [address] May, [facility] [address] [id number] [address] [place] [address], [place] [address] May, [facility] [address] [id number] [address] [place] [address], [place] [address] 26 May, 2012 [facility] [address] [id number] [address] [place] [address], [place] [address] 16 May, 2012 [facility] [address] [id number] [address] [place] [address], [place] [address] 16 May, 2012 [facility] [address] [id number] [address] [place] [address], [place] [address] 14 May, 2012 [facility] [address] [id number] [address] [place] [address], [place] [address] 14 May, 2012 [facility] [address] [id number] [address] [place] [address], [place] [address] 30 Apr, 2012 [facility] [address] [id number] [address] [place] [address], [place] [address] 30 Apr, 2012 [facility] [address] [id number] [address] [place] [address], [place] [address] 17 Apr, 2012 [facility] [address] [id number] [address] [place] [address], [place] [address] 17 Apr, 2012 [facility] [address] [id number] [address] [place] [address], [place] [address] 09 Apr, 2012 [facility] [address] [id number] [address] [place] [address], [place] [address] 18 Mar, 2012 [facility] [address] [id number] [address] [place] [address], [place] [address] 17 Mar, 2012 [facility] [address] [id number] [address] [place] [address], [place] [address] 07 Mar, 2012 [facility] [address] [id number] [address] [place] [address], [place] [address] 27 Feb, 2012 [facility] [address] [id number] [address] [place] [address], [place] [address] 16 Feb, 2012 [facility] [address] [id number] [address] [place] [address], [place] [address] 15 Feb, 2012 [facility] [address] [id number] [address] [place] [address], [place] [address] 14 Feb, 2012 [facility] [address] [id number] [address] [place] [address], [place] [address] Jan, [facility] [address] [id number] [address] [place] [address], [place] [address] Jan, [facility] [address] [id number] [address] [place] [address], [place] [address] Jan, [facility] [address] [id number] [address] [place] [address], [place] [address] Jan, [facility] [address] [id number] [address] [place] [address], [place] [address] Jan, [facility] [address] [id number] [address] [place] [address], [place] [address] Jan, [facility] [address] [id number] [address] [place] [address], [place] [address] Dec, [facility] [address] [id number] [address] [place] [address], [place] [address] Dec, [facility] [address] [id number] [address] [place] [address], [place] [address] 08 Dec, 2011 [facility] [address] [id number] [address] [place] [address], [place] [address] November, [facility] [address] [id number] [address] [place] [address], [place] [address] November, [facility] [address] [id number] [address] [place] [address], [place] [address] November, [facility] [address] [id number] [address] [place] [address], [place] [address] November, [facility] [address] [id number] [address] [place] [address], [place] [address] Oct, [facility] [address] [id number] [address] [place] [address], [place] [address] Oct, [facility] [address] [id number] [address] [place] [address], [place] [address] Oct, [facility] [address] [id number] [address] [place] [address], [place] [address] Sep, [facility] [address] [id number] [address] [place] [address], [place] [address] Sep, [facility] [address] [id number] [address] [place] [address], [place] [address] Aug, [facility] [address] [id number] [address] [place] [address], [place] [address] Aug, [facility] [address] [id number] [address] [place] [address], [place] [address] Aug, [facility] [address] [id number] [address] [place] [address], [place] [address] Aug, [facility] [address] [id number] [address] [place] [address], [place] [address] Jul, [facility] [address] [id number] [address] [place] [address], [place] [address] Jul, [facility] [address] [id number] [address] [place] [address], [place] [address] Jul, [facility] [address] [id number] [address] [place] [address], [place] [address] Jul, [facility] [address] [id number] [address] [place] [address], [place] [address] Jul, [facility] [address] [id number] [address] [place] [address], [place] [address] Jul, [facility] [address] [id number] [address] [place] [address], [place] [address] Jul, [facility] [address] [id number] [address] [place] [address], [place] [address] Jul, [facility] [address] [id number] [address] [place] [address], [place] [address] Jun, [facility] [address] [id number] [address] [place] [address], [place] [address] Jun, [facility] [address] [id number] [address] [place] [address], [place] [address] Jun, [facility] [address] [id number] [address] [place] [address], [place] [address] Jun, [facility] [address] [id number] [address] [place] [address], [place] [address] Jun, [facility] [address] [id number] [address] [place] [address], [place] [address] May, [facility] [address] [id number] [address] [place] [address], [place] [address] May, [facility] [address] [id number] [address] [place] [address], [place] [address] 17 May, 2011 [facility] [address] [id number] [address] [place] [address], [place] [address] 15 May, 2011 [facility] [address] [id number] [address] [place] [address], [place] [address] 08 May, 2011 [facility] [address] [id number] [address] [place] [address], [place] [address] May, [facility] [address] [id number] [address] [place] [address] Apr, [facility] [address] [id number] [address] [place] [address] Apr, [facility] [address] [id number] [address] [place] [address] Apr, [facility] [address] [id number] [address] [place] [address] Feb, [facility] [address] [id number] [address] [place] [address] Feb, [facility] [address] [id number] [address] [place] [address] Oct, [facility] [address] [id number] [address] [place] [address] Jul, [facility] [address] [id number] [address] [place] [address] Jul, [facility] [address] [id number] [address] [place] [address] Jun, [facility] [address] [id number] [address] [place] [address] May, [facility] [address] [id number] [address] [place] [address] May, [facility] [address] [id number] [address] [place] [address] May, [facility] [address] [id number] [address] [place] [address] Apr, [facility] [address] [id number] [address] [place] [address] Jan, [facility] [address] [id number] [address] [place] [phone] November, IMMUNIZATIONS No Known Immunizations SOCIAL HISTORY Never Assessed REASON FOR VISIT PLAN OF CARE VITAL SIGNS Blood pressure systolic 110 mmHg 2014-08-11 Blood pressure diastolic 70 mmHg 2014-08-11 MEDICATIONS Unknown Medications RESULTS No Results PROCEDURES Procedure Date Ordered Result Body Site DRAIN/INJECT, JOINT/BURSA Aug 11, 2014 INSTRUCTIONS MEDICATIONS ADMINISTERED No Known Medications [...]
--- OUTSIDE RECORDS SUMMARY | 2020-01-31 09:46 | XMS REPORT ---
Author Author Ivet BRISENO Y Organization [facility] Address [address] [place] [address] Care Team Providers Care [employer] Operator Name Role Phone LINDY BRISENO Unavailable PROBLEMS Type Condition ICD9-CM Code PPB63-NP Code Onset Dates Condition S tatus SNOMED Code Problem Hypothyroidism E03.9 Active 49497 008 Problem GERD (gastroesophageal reflux disease) K21.9 Active 990908955 Problem Essential hypertension I10 Active 67655486 Problem Anxiety F41.9 Active 02852060 Problem Osteoarthritis M19.90 Active 03355 5006 Problem Schizo affective schizophrenia F25.0 Active 019131777 Problem Bilateral carotid artery disease I77.9 Active 783083704 Problem Low back pain, unspecified b ack pain laterality, unspecified chronicity, with sciatica presence unspecified M54.5 Active 140501225 Problem Vitamin D deficiency E55.9 Active 84959617 Problem Iron deficiency anemia, unspecified iron deficiency an emia type D50.9 Active 96697193 Problem Secondary hyperparathyroidism, not elsewhere classified E21.1 Active 34219511 Problem Lumbago with sciatica, right side M54.41 Active [id number] Problem Fibromyalgia M79.7 Active 0508892 05 Problem Other chronic pain G89.29 Active 8 0130042 Problem Stage 3 chronic kidney disease N18.3 Active 336495672 Problem Depression F32.9 Active 47475959 Problem Sensory loss R20.0 Active 6507810 9 Problem Idiopathic peripheral neuropathy G60.9 Active 42706630 Problem Acquired hypothyroidism E03.9 Active 321091383 Problem Lumbago with sciatica, left side M54.42 Active 097954300 ALLERGIES No Information ENCOUNTERS Encounter Location Date Diagnosis [facility] [address] [facility] [id number] [place] [address] Feb, Lumbago with sciatica, left side M54.42 ; Lumbago with sciatica, right side M54.41 and Other chronic pain G89.29 [facility] [address] [facility] [id number] [address] [place] [address] 23 Feb, 2019 Encounter for Medicare jesus costello wellness exam Z00.00 ; Schizo affective schizophrenia F25.0 ; Essential hypertension I10 ; GERD (gastroesophageal reflux disease) K21.9 ; Secondary hyperparathyroidism, not elsewhere classified E21.1 ; Idiopathic peripheral neuropathy G60.9 ; Stage 3 chronic kidney disease N18.3 ; Acquired hypothyroidism E03.9 ; Bilateral carotid artery disease I77.9 ; Hypothyroidism E03.9 and Routine adult health maintenance Z00.00 [facility] [address] [facility] [id number] [address] [place] [address] 14 Feb, 2019 Osteoarthritis M19.90 [facility] [address] [facility] [id number] [address] [place] [phone] 11 Jan, 2019 Osteoarthritis M19.90 [facility] [address] [facility] [id number] [address] [place] [address] Jan, Osteoarthritis M19.90 [facility] [address] [facility] [id number] [address] [place] [address] Dec, Acquired hypothyroidism E03. 9 [facility] [address] [facility] [id number] [address] [place] [address] Dec, Fibromyalgia M79.7 ; Hypothy roidism E03.9 ; Essential hypertension I10 and Sensory loss R20.[address] [address] November, Osteoarthritis M19.90 [facility] [address] [facility] [id number] [address] [place] [address] Oct, Osteoarthritis M19.90 [facility] [address] [facility] [id number] [address] [place] [address] Oct, Sore throat J02.9 and Acute nasopharyngitis J00 [facility] [address] [facility] [id number] [address] [place] [address] Sep, Osteoarthritis M19.90 [facility] [address] [place] [address] Sep, Acute non-recurrent maxillar y sinusitis J01.00 [facility] [address] [place] [id number] [address] [place] [address] Aug, Acute non-recurrent pansinus itis J01.40 [place] [address] [place] [id number] [address] [place] [address] Jul, Osteoarthritis M19.90 [place] [address] [address] Jul, [place] [address] [address] Apr, Osteoarthritis M19.90 [place] [address] [address] Apr, Fibromyalgia M79.7 ; Essenti al hypertension I10 ; Encounter for immunization Z23 ; Stage 3 chronic kidney disease N18.3 and Depression F32.9 [place] [address] [address] Dec, Fibromyalgia M79.7 ; Osteoar thritis M19.90 and Encounter for medication management Z79.899 [facility] [address] [address] November, Nausea and vomiting, intract ability of vomiting not specified, unspecified vomiting type R11.2 and Dizziness R42 [facility] [address] [place] [id number] [address] [place] [address] November, Fibromyalgia M79.7 [place] [address] [address] November, Medicare annual wellness vis it, initial Z00.00 ; Anxiety F41.9 ; Depression F32.9 ; Stage 3 chronic kidney disease N18.3 ; Fibromyalgia M79.7 ; Essential hypertension I10 ; Secondary hyperparathyroidism, not elsewhere classified E21.1 ; Osteoarthritis M19.90 ; Hypothyroidism E03.9 and Encounter for immunization Z23 [place] [address] [address] Oct, [place] [address] [address] Oct, Sebaceous cyst L72.3 [place] [address] [address] Sep, Low back pain, unspecified b ack pain laterality, unspecified chronicity, with sciatica presence unspecified M54.5 and Secondary hyperparathyroidism, not elsewhere classified E21.1 [place] [address] [address] Sep, Fibromyalgia M79.7 [place] [address] [address] Sep, Fibromyalgia M79.7 ; Plantar fasciitis, bilateral M72.2 ; Essential hypertension I10 ; Depression F32.9 and Epidermoid cyst L72.0 [place] [address] [address] Jul, [place] [address] [address] Jul, Fibromyalgia M79.7 ; Iron de ficiency anemia, unspecified iron deficiency anemia type D50.9 and Acute nasopharyngitis J00 [facility] [address] [address] Jun, Sore throat J02.9 and Acute serous otitis media of left ear, recurrence not specified H65.02 [place] [address] [address] Jun, Hypothyroidism E03.9 [place] [address] [address] Jun, [place] [address] [address] Jun, Hypothyroidism E03.9 ; Essen tial hypertension I10 and Osteoarthritis M19.90 [place] [address] [address] May, [place] [address] [address] May, [place] [address] [address] Feb, [place] [address] [address] Feb, Leonela-menopausal N95.1 and To bacco use Z72.0 [place] [address] [address] Jan, [place] [address] [address] Jan, Osteoarthritis M19.90 ; Bila teral carotid artery disease I77.9 ; Raynauds syndrome I73.00 ; Essential hypertension I10 ; Allergic rhinitis J30.9 ; Stage 3 chronic kidney disease N18.3 ; Fibromyalgia M79.7 ; Hypothyroidism E03.9 ; GERD (gastroesophageal reflux disease) K21.9 and Vitamin D deficiency E55.9 [place] [address] [address] Dec, Raynauds syndrome I73.00 ; P lantar fascial fibromatosis M72.2 ; Osteoarthritis M19.90 and Fibromyalgia M79.7 [place] [address] [address] Dec, [place] [address] [address] Dec, [place] [address] [address] Oct, Function kidney decreased N2 8.9 [facility] [address] [id number] [address] [place] [id number] Oct, Dental examination Z01.20 [facility] [address] [facility] [id number] [address] [place] [address] 18 Oct, 2016 Essential hypertension I10 a nd Function kidney decreased N28.9 [facility] [address] [id number] [address] [place] [id number] Oct, Dental examination Z01.20 [facility] [address] [facility] [id number] [address] [place] [address] Oct, [facility] [address] [facility] [id number] [address] [place] [address] 24 Sep, 2016 Other specified disorders in volving the immune mechanism D89.89 and Schizo affective schizophrenia F25.0 [facility] [address] [facility] [id number] [address] [place] [address] Sep, Schizo affective schizophren ia F25.0 [facility] [address] [facility] [id number] [address] [place] [address] 16 Sep, 2016 Eustachian tube dysfunction, bilateral H69.83 [facility] [address] [facility] [id number] [address] [place] [id number] 15 Sep, 2016 [facility] [address] [facility] [id number] [address] [place] [id number] 14 Sep, 2016 [facility] [address] [facility] [id number] [address] [place] [address] 14 Sep, 2016 [facility] [address] [facility] [id number] [address] [place] [address] 13 Sep, 2016 Eustachian tube dysfunction, bilateral H69.83 [facility] [address] [facility] [id number] [address] [place] [address] 09 Sep, 2016 Allergic rhinitis J30.9 ; Es sential hypertension I10 ; Hypothyroidism E03.9 and Schizo affective schizophrenia F25.0 [facility] [address] [place] [id number] [address] [place] [address] Jul, Eustachian tube dysfunction, bilateral H69.83 and Visit for TB skin test Z11.1 [facility] [address] [address] Jul, Subacute pansinusitis J01.40 [facility] [address] [address] Jun, Schizo affective schizophren ia F25.0 ; Depression F32.9 ; Allergic rhinitis J30.9 ; Raynauds syndrome I73.00 ; Essential hypertension I10 ; Slow transit constipation K59.01 ; GERD (gastroesophageal reflux disease) K21.9 ; Hypothyroidism E03.9 ; Nicotine addiction F17.200 ; Other viral agents as the cause of diseases classified elsewhere B97.89 ; Acute upper respiratory infection, unspecified J06.9 and Osteoarthritis M19.90 [facility] [address] [address] Jun, Allergic rhinitis J30.9 and GERD (gastroesophageal reflux disease) K21.9 [facility] [address] [address] May, [place] [address] [address] Mar, Schizo affective schizophren ia F25.0 [facility] [address] [address] Mar, Schizo affective schizophren ia F25.0 [place] [address] [address] 15 Mar, 2016 Schizo affective schizophren ia F25.0 [place] [address] [address] Mar, Acute non-recurrent maxillar y sinusitis J01.00 [facility] [address] [address] Feb, Schizo affective schizophren ia F25.0 [place] [address] [place] [address] Feb, Contact dermatitis and eczem a L25.9 [place] [address] [facility] [id number] [address] [place] [address] Jan, [place] [address] [address] Jan, Schizo affective schizophren ia F25.0 ; Slow transit constipation K59.01 ; Essential hypertension I10 ; GERD (gastroesophageal reflux disease) K21.9 ; Hypothyroidism E03.9 ; Osteoarthritis M19.90 ; Low back pain, unspecified back pain laterality, unspecified chronicity, with sciatica presence unspecified M54.5 and Bilateral carotid artery disease I77.9 [place] [address] [address] Oct, [place] [address] [address] Sep, Hypothyroid E03.9 [place] [address] [address] Sep, Schizo affective schizophren ia F25.0 ; Depression F32.9 ; Anxiety F41.9 ; Allergic rhinitis J30.9 ; Raynauds syndrome I73.00 ; Insomnia G47.00 ; Essential hypertension I10 ; GERD (gastroesophageal reflux disease) K21.9 ; Hypothyroidism E03.9 and Vitamin D deficiency E55.9 [place] [address] [place] [id number] [address] [place] [address] Sep, [place] [address] [address] Sep, [place] [address] [place] [id number] [address] [place] [address] Aug, Allergic rhinitis J30.9 ; De pression F32.9 ; Anxiety F41.9 ; Raynauds syndrome I73.00 ; Insomnia G47.00 and GERD (gastroesophageal reflux disease) K21.9 [facility] [address] [place] [id number] [address] [place] [address] Aug, MONICA (secretory otitis media) H65.90 and Raynauds syndrome I73.00 [facility] [address] [place] [id number] [address] [place] [address] Jul, Acute otitis externa of both ears, unspecified type H60.503 [facility] [address] [place] [id number] [address] [place] [address] Jun, [place] [address] [address] Jun, Essential hypertension I10 ; Allergic rhinitis J30.9 ; Hypothyroidism E03.9 and Osteoarthritis M19.90 [place] [address] [address] Jun, Routine adult health mainten ance Z00.00 ; Hypothyroidism E03.9 ; Essential hypertension I10 ; Insomnia G47.00 ; Nicotine addiction F17.200 ; Raynauds syndrome I73.00 ; GERD (gastroesophageal reflux disease) K21.9 ; Allergic rhinitis J30.9 ; Anxiety F41.9 ; Depression F32.9 and Schizo affective schizophrenia F25.0 [place] [address] [place] [id number] [address] [place] [phone] May, Upper respiratory tract infe ction, unspecified type J06.9 [facility] [address] [place] [id number] [address] [place] [phone] Mar, [facility] [address] [facility] [id number] [place] [id number] Mar, [place] [address] [place] [id number] [address] [place] [address] Mar, [place] [address] [place] [id number] [address] [place] [address] Mar, [facility] [address] [id number] [address] [place] [address], [place] [address] Feb, Jaw pain 784.92 and Environm ental and seasonal allergies 477.8 [facility] [address] [id number] [address] [place] [address], [place] [address] Feb, [facility] [address] [id number] [address] [place] [address], [place] [address] Oct, [facility] [address] [id number] [address] [place] [address], [place] [address] Oct, [facility] [address] [id number] [address] [place] [address], [place] [address] Oct, [facility] [address] [id number] [address] [place] [address], [place] [address] Oct, [facility] [address] [id number] [address] [place] [address], [place] [address] Sep, [facility] [address] [id number] [address] [place] [address], [place] [address] Sep, [facility] [address] [id number] [address] [place] [address], [place] [address] Jul, [facility] [address] [id number] [address] [place] [address], [place] [address] Jul, [facility] [address] [id number] [address] [place] [address], [place] [address] Jul, [facility] [address] [id number] [address] [place] [address], [place] [address] Jul, [facility] [address] [id number] [address] [place] [address], [place] [address] Jul, [facility] [address] [id number] [address] [place] [address], [place] [address] Jul, [facility] [address] [id number] [address] [place] [address], [place] [address] Jul, [facility] [address] [id number] [address] [place] [address], [place] [address] 31 Jun, 2014 [facility] [address] [id number] [address] [place] [address], [place] [address] 31 Jun, 2014 [facility] [address] [id number] [address] [place] [address], [place] [address] 22 Jun, 2014 [facility] [address] [id number] [address] [place] [address], [place] [address] 18 Jun, 2014 [facility] [address] [id number] [address] [place] [address], [place] [address] 17 Jun, 2014 [facility] [address] [id number] [address] [place] [address], [place] [address] 17 Jun, 2014 [facility] [address] [id number] [address] [place] [address], [place] [address] 16 Jun, 2014 [facility] [address] [id number] [address] [place] [address], [place] [address] 16 Jun, 2014 [facility] [address] [id number] [address] [place] [address], [place] [address] 30 Apr, 2014 [facility] [address] [id number] [address] [place] [address], [place] [address] 30 Apr, 2014 [facility] [address] [id number] [address] [place] [address], [place] [address] 17 Mar, 2014 [facility] [address] [id number] [address] [place] [address], [place] [address] 17 Mar, 2014 [facility] [address] [id number] [address] [place] [address], [place] [address] Mar, [facility] [address] [id number] [address] [place] [address], [place] [address] 03 Mar, 2014 [facility] [address] [id number] [address] [place] [address], [place] [address] 16 Jan, 2014 [facility] [address] [id number] [address] [place] [address], [place] [address] Jan, [facility] [address] [id number] [address] [place] [address], [place] [address] Oct, [facility] [address] [id number] [address] [place] [address], [place] [address] Oct, [facility] [address] [id number] [address] [place] [address], [place] [address] Sep, [facility] [address] [id number] [address] [place] [address], [place] [address] Sep, [facility] [address] [id number] [address] [place] [address], [place] [address] Sep, [facility] [address] [id number] [address] [place] [address], [place] [address] Sep, [facility] [address] [id number] [address] [place] [address], [place] [address] Sep, [facility] [address] [id number] [address] [place] [address], [place] [address] Sep, [facility] [address] [id number] [address] [place] [address], [place] [address] Aug, [facility] [address] [id number] [address] [place] [address], [place] [address] Aug, [facility] [address] [id number] [address] [place] [address], [place] [address] Jul, [facility] [address] [id number] [address] [place] [address], [place] [address] Jul, [facility] [address] [id number] [address] [place] [address], [place] [address] Jul, [facility] [address] [id number] [address] [place] [address], [place] [address] Jul, [facility] [address] [id number] [address] [place] [address], [place] [address] Jun, [facility] [address] [id number] [address] [place] [address], [place] [address] Jun, [facility] [address] [id number] [address] [place] [address], [place] [address] May, [facility] [address] [id number] [address] [place] [address], [place] [address] May, [facility] [address] [id number] [address] [place] [address], [place] [address] Apr, [facility] [address] [id number] [address] [place] [address], [place] [address] Apr, [facility] [address] [id number] [address] [place] [address], [place] [address] Apr, [facility] [address] [id number] [address] [place] [address], [place] [address] Apr, [facility] [address] [id number] [address] [place] [address], [place] [address] Apr, [facility] [address] [id number] [address] [place] [address], [place] [address] Apr, [facility] [address] [id number] [address] [place] [address], [place] [address] 24 Mar, 2013 [facility] [address] [id number] [address] [place] [address], [place] [address] Mar, [facility] [address] [id number] [address] [place] [address], [place] [address] 09 Mar, 2013 [facility] [address] [id number] [address] [place] [address], [place] [address] 05 Mar, 2013 [facility] [address] [id number] [address] [place] [address], [place] [address] 05 Mar, 2013 [facility] [address] [id number] [address] [place] [address], [place] [address] Feb, [facility] [address] [id number] [address] [place] [address], [place] [address] Feb, [facility] [address] [id number] [facility] [place] [address] Feb, [facility] [address] [id number] [address] [place] [address], [place] [address] Feb, [facility] [address] [id number] [address] [place] [address], [place] [address] 18 Jan, 2013 [facility] [address] [id number] [address] [place] [address], [place] [address] 17 Jan, 2013 [facility] [address] [id number] [address] [place] [address], [place] [address] 16 Jan, 2013 [facility] [address] [id number] [address] [place] [address], [place] [address] Jan, [facility] [address] [id number] [address] [place] [address], [place] [address] Jan, [facility] [address] [id number] [address] [place] [address], [place] [address] Jan, [facility] [address] [id number] [address] [place] [address], [place] [address] Dec, [facility] [address] [id number] [address] [place] [address], [place] [address] Dec, [facility] [address] [id number] [address] [place] [address], [place] [address] Dec, [facility] [address] [id number] [address] [place] [address], [place] [address] 14 Dec, 2012 [facility] [address] [id number] [address] [place] [address], [place] [address] 13 Dec, 2012 [facility] [address] [id number] [address] [place] [address], [place] [address] 12 Dec, 2012 [facility] [address] [id number] [address] [place] [address], [place] [address] Dec, [facility] [address] [id number] [address] [place] [address], [place] [address] Dec, [facility] [address] [id number] [address] [place] [address], [place] [address] Dec, [facility] [address] [id number] [address] [place] [address], [place] [address] Dec, [facility] [address] [id number] [address] [place] [address], [place] [address] November, [facility] [address] [id number] [address] [place] [address], [place] [address] November, [facility] [address] [id number] [address] [place] [address], [place] [address] November, [facility] [address] [id number] [address] [place] [address], [place] [address] November, [facility] [address] [id number] [address] [place] [address], [place] [address] November, [facility] [address] [id number] [address] [place] [address], [place] [address] Oct, [facility] [address] [id number] [address] [place] [address], [place] [address] Oct, [facility] [address] [id number] [address] [place] [address], [place] [address] Oct, [facility] [address] [id number] [address] [place] [address], [place] [address] Oct, [facility] [address] [id number] [address] [place] [address], [place] [address] Oct, [facility] [address] [id number] [address] [place] [address], [place] [address] Sep, [facility] [address] [id number] [address] [place] [address], [place] [address] Sep, [facility] [address] [id number] [address] [place] [address], [place] [address] Sep, [facility] [address] [id number] [address] [place] [address], [place] [address] 05 Sep, 2012 [facility] [address] [id number] [address] [place] [address], [place] [address] 26 Aug, 2012 [facility] [address] [id number] [address] [place] [address], [place] [address] 18 Aug, 2012 [facility] [address] [id number] [address] [place] [address], [place] [address] 18 Aug, 2012 [facility] [address] [id number] [address] [place] [address], [place] [address] 15 Aug, 2012 [facility] [address] [id number] [address] [place] [address], [place] [address] Jun, [facility] [address] [id number] [address] [place] [address], [place] [address] Jun, [facility] [address] [id number] [address] [place] [address], [place] [address] Jun, [facility] [address] [id number] [address] [place] [address], [place] [address] Jun, [facility] [address] [id number] [address] [place] [address], [place] [address] Jun, [facility] [address] [id number] [address] [place] [address], [place] [address] Jun, [facility] [address] [id number] [address] [place] [address], [place] [address] Jun, [facility] [address] [id number] [address] [place] [address], [place] [address] Jun, [facility] [address] [id number] [address] [place] [address], [place] [address] Jun, [facility] [address] [id number] [address] [place] [address], [place] [address] Jun, [facility] [address] [id number] [address] [place] [address], [place] [address] May, [facility] [address] [id number] [address] [place] [address], [place] [address] 27 May, 2012 [facility] [address] [id number] [address] [place] [address], [place] [address] 27 May, 2012 [facility] [address] [id number] [address] [place] [address], [place] [address] May, [facility] [address] [id number] [address] [place] [address], [place] [address] 26 May, 2012 [facility] [address] [id number] [address] [place] [address], [place] [address] 16 May, 2012 [facility] [address] [id number] [address] [place] [address], [place] [address] 16 May, 2012 [facility] [address] [id number] [address] [place] [address], [place] [address] 14 May, 2012 [facility] [address] [id number] [address] [place] [address], [place] [address] 14 May, 2012 [facility] [address] [id number] [address] [place] [address], [place] [address] 30 Apr, 2012 [facility] [address] [id number] [address] [place] [address], [place] [address] 30 Apr, 2012 [facility] [address] [id number] [address] [place] [address], [place] [address] 17 Apr, 2012 [facility] [address] [id number] [address] [place] [address] 17 Apr, 2012 [facility] [address] [id number] [address] [place] [address], [place] [address] 09 Apr, 2012 [facility] [address] [id number] [address] [place] [address], [place] [address] 18 Mar, 2012 [facility] [address] [id number] [address] [place] [address], [place] [address] 17 Mar, 2012 [facility] [address] [id number] [address] [place] [address], [place] [address] 07 Mar, 2012 [facility] [address] [id number] [address] [place] [address], [place] [address] Feb, [facility] [address] [id number] [address] [place] [address], [place] [address] Feb, [facility] [address] [id number] [address] [place] [address], [place] [address] Feb, [facility] [address] [id number] [address] [place] [address], [place] [address] Feb, [facility] [address] [id number] [address] [place] [address], [place] [address] Jan, [facility] [address] [id number] [address] [place] [address], [place] [address] Jan, [facility] [address] [id number] [address] [place] [address], [place] [address] Jan, [facility] [address] [id number] [address] [place] [address], [place] [address] Jan, [facility] [address] [id number] [address] [place] [address], [place] [address] Jan, [facility] [address] [id number] [address] [place] [address], [place] [address] Jan, [facility] [address] [id number] [address] [place] [address], [place] [address] Dec, [facility] [address] [id number] [address] [place] [address], [place] [address] Dec, [facility] [address] [id number] [address] [place] [address], [place] [address] Dec, [facility] [address] [id number] [address] [place] [address], [place] [address] November, [facility] [address] [id number] [address] [place] [address], [place] [address] November, [facility] [address] [id number] [address] [place] [address], [place] [address] November, [facility] [address] [id number] [address] [place] [address], [place] [address] November, [facility] [address] [id number] [address] [place] [address], [place] [address] Oct, [facility] [address] [id number] [address] [place] [address], [place] [address] Oct, [facility] [address] [id number] [address] [place] [address], [place] [address] Oct, [facility] [address] [id number] [address] [place] [address], [place] [address] Sep, [facility] [address] [id number] [address] [place] [address], [place] [address] Sep, [facility] [address] [id number] [address] [place] [address], [place] [address] Aug, [facility] [address] [id number] [address] [place] [address], [place] [address] Aug, [facility] [address] [id number] [address] [place] [address], [place] [address] Aug, [facility] [address] [id number] [address] [place] [address], [place] [address] Aug, [facility] [address] [id number] [address] [place] [address], [place] [address] Jul, [facility] [address] [id number] [address] [place] [address], [place] [address] Jul, [facility] [address] [id number] [address] [place] [address], [place] [address] Jul, [facility] [address] [id number] [address] [place] [address], [place] [address] Jul, [facility] [address] [id number] [address] [place] [address] Jul, [facility] [address] [id number] [address] [place] [address], [place] [address] Jul, [facility] [address] [id number] [address] [place] [address] Jul, [facility] [address] [id number] [address] [place] [address], [place] [address] Jul, [facility] [address] [id number] [address] [place] [address], [place] [address] 30 Jun, 2011 [facility] [address] [id number] [address] [place] [address], [place] [address] Jun, [facility] [address] [id number] [address] [place] [address], [place] [address] 15 Jun, 2011 [facility] [address] [id number] [address] [place] [address], [place] [address] Jun, [facility] [address] [id number] [address] [place] [address], [place] [address] Jun, [facility] [address] [id number] [address] [place] [address], [place] [address] May, [facility] [address] [id number] [address] [place] [address], [place] [address] May, [facility] [address] [id number] [address] [place] [address] 17 May, 2011 [facility] [address] [id number] [address] [place] [id number] 15 May, 2011 [facility] [address] [id number] [address] [place] [address], [place] [address] May, [facility] [address] [id number] [address] [place] [id number] 08 May, 2011 [facility] [address] [id number] [address] [place] [address], [place] [address] Apr, [facility] [address] [id number] [address] [place] [id number] 13 Apr, 2011 [facility] [address] [id number] [address] [place] [address] Apr, [facility] [address] [id number] [address] [place] [address] Feb, [facility] [address] [id number] [address] [place] [address] Feb, [facility] [address] [id number] [address] [place] [id number] Oct, [facility] [address] [id number] [address] [place] [id number] Jul, [facility] [address] [id number] [address] [place] [address] Jul, [facility] [address] [id number] [address] [place] [address] Jun, [facility] [address] [id number] [address] [place] [address] May, [facility] [address] [id number] [address] [place] [id number] May, [facility] [address] [id number] [address] [place] [id number] May, [facility] [address] [id number] [address] [place] [id number] Apr, [facility] [address] [id number] [address] [place] [id number] Jan, [facility] [address] [id number] [address] [place] [id number] November, IMMUNIZATIONS No Known Immunizations SOCIAL HISTORY Never Assessed REASON FOR VISIT PLAN OF CARE VITAL SIGNS MEDICATIONS Unknown Medications RESULTS No Results PROCEDURES Procedure Date Ordered Result Body Site COMPUTER DX MAMMOGRAM ADD-ON Jul 13, 2014 US EXAM, BREAST(S) Jul 13, 2014 INSTRUCTIONS MEDICATIONS ADMINISTERED No Known Medications [...]
--- OUTSIDE RECORDS SUMMARY | 2020-01-31 09:46 | XMS REPORT ---
Author Author Ivet BRISENO Y Organization [facility] Address [address] [place] [address] Care Team Providers Care Director Data Name Role Phone LINDY BRISENO Unavailable PROBLEMS Type Condition ICD9-CM Code MTL13-RU Code Onset Dates Condition S tatus SNOMED Code Problem Hypothyroidism E03.9 Active 15080 008 Problem GERD (gastroesophageal reflux disease) K21.9 Active 259422026 Problem Essential hypertension I10 Active 11224832 Problem Anxiety F41.9 Active 28666839 Problem Osteoarthritis M19.90 Active 74411 5006 Problem Schizo affective schizophrenia F25.0 Active 647599079 Problem Bilateral carotid artery disease I77.9 Active 063543723 Problem Low back pain, unspecified b ack pain laterality, unspecified chronicity, with sciatica presence unspecified M54.5 Active 016075284 Problem Vitamin D deficiency E55.9 Active 40597046 Problem Iron deficiency anemia, unspecified iron deficiency an emia type D50.9 Active 21255860 Problem Secondary hyperparathyroidism, not elsewhere classified E21.1 Active 87830156 Problem Lumbago with sciatica, right side M54.41 Active [id number] Problem Fibromyalgia M79.7 Active 8652660 05 Problem Other chronic pain G89.29 Active 8 6572581 Problem Stage 3 chronic kidney disease N18.3 Active 026511377 Problem Depression F32.9 Active 93708512 Problem Sensory loss R20.0 Active 5102488 9 Problem Idiopathic peripheral neuropathy G60.9 Active 74668508 Problem Acquired hypothyroidism E03.9 Active 245587859 Problem Lumbago with sciatica, left side M54.42 Active 924311459 ALLERGIES No Information ENCOUNTERS Encounter Location Date Diagnosis [facility] [address] [facility] [id number] [address] [place] [address] Feb, Lumbago with sciatica, left side M54.42 ; Lumbago with sciatica, right side M54.41 and Other chronic pain G89.29 [facility] [address] [facility] [id number] [address] [place] [address] Feb, Encounter for Medicare jesus costello wellness exam Z00.00 ; Schizo affective schizophrenia F25.0 ; Essential hypertension I10 ; GERD (gastroesophageal reflux disease) K21.9 ; Secondary hyperparathyroidism, not elsewhere classified E21.1 ; Idiopathic peripheral neuropathy G60.9 ; Stage 3 chronic kidney disease N18.3 ; Acquired hypothyroidism E03.9 ; Bilateral carotid artery disease I77.9 and Hypothyroidism E03.9 [facility] [address] [facility] [id number] [address] [place] [address] Feb, Osteoarthritis M19.90 [facility] [address] [facility] [id number] [address] [place] [address] Jan, Osteoarthritis M19.90 [facility] [address] [place] [id number] [address] [place] [address] Jan, Osteoarthritis M19.90 [facility] [address] [facility] [id number] [address] [place] [address] Dec, Acquired hypothyroidism E03. 9 [facility] [address] [facility] [id number] [address] [place] [address] Dec, Fibromyalgia M79.7 ; Hypothy roidism E03.9 ; Essential hypertension I10 and Sensory loss R20.[address] [address] November, Osteoarthritis M19.90 [facility] [address] [facility] [id number] [address] [place] [address] Oct, Osteoarthritis M19.90 [facility] [address] [facility] [id number] [address] [place] [address] Oct, Sore throat J02.9 and Acute nasopharyngitis J00 [facility] [address] [facility] [id number] [address] [place] [address] Sep, Osteoarthritis M19.90 [facility] [address] [facility] [id number] [address] [place] [address] Sep, Acute non-recurrent maxillar y sinusitis J01.00 [facility] [address] [facility] [id number] [address] [place] [address] Aug, Acute non-recurrent pansinus itis J01.40 [facility] [address] [place] [id number] [address] [place] [address] Jul, Osteoarthritis M19.90 [facility] [address] [place] [id number] [address] [place] [address] Jul, [place] [address] [place] [id number] [address] [place] [address] Apr, Osteoarthritis M19.90 [place] [address] [address] Apr, Fibromyalgia M79.7 ; Essenti al hypertension I10 ; Encounter for immunization Z23 ; Stage 3 chronic kidney disease N18.3 and Depression F32.9 [place] [address] [address] Dec, Fibromyalgia M79.7 ; Osteoar thritis M19.90 and Encounter for medication management Z79.899 [facility] [address] [place] [id number] [address] [place] [address] November, Nausea and vomiting, intract ability of vomiting not specified, unspecified vomiting type R11.2 and Dizziness R42 [facility] [address] [place] [id number] [address] [place] [address] November, Fibromyalgia M79.7 [place] [address] [address] November, Medicare annual wellness vis it, initial Z00.00 ; Anxiety F41.9 ; Depression F32.9 ; Stage 3 chronic kidney disease N18.3 ; Fibromyalgia M79.7 ; Essential hypertension I10 ; Secondary hyperparathyroidism, not elsewhere classified E21.1 ; Osteoarthritis M19.90 ; Hypothyroidism E03.9 and Encounter for immunization Z23 [place] [id number] [address] Oct, [facility] [address] [address] Oct, Sebaceous cyst L72.3 [place] [address] [address] Sep, Low back pain, unspecified b ack pain laterality, unspecified chronicity, with sciatica presence unspecified M54.5 and Secondary hyperparathyroidism, not elsewhere classified E21.1 [place] [address] [address] Sep, Fibromyalgia M79.7 [place] [address] [address] Sep, Fibromyalgia M79.7 ; Plantar fasciitis, bilateral M72.2 ; Essential hypertension I10 ; Depression F32.9 and Epidermoid cyst L72.0 [place] [address] [address] Jul, [place] [address] [address] Jul, Fibromyalgia M79.7 ; Iron de ficiency anemia, unspecified iron deficiency anemia type D50.9 and Acute nasopharyngitis J00 [facility] [address] [address] Jun, Sore throat J02.9 and Acute serous otitis media of left ear, recurrence not specified H65.02 [facility] [address] [address] Jun, Hypothyroidism E03.9 [facility] [address] [address] Jun, [place] [address] [place] [address] Jun, Hypothyroidism E03.9 ; Essen tial hypertension I10 and Osteoarthritis M19.90 [facility] [address] [address] May, [facility] [address] [place] [id number] [place] [address] May, [facility] [address] [address] Feb, [place] [address] [address] Feb, Leonela-menopausal N95.1 and To bacco use Z72.0 [place] [address] [address] Jan, [place] [address] [address] Jan, Osteoarthritis M19.90 ; Bila teral carotid artery disease I77.9 ; Raynauds syndrome I73.00 ; Essential hypertension I10 ; Allergic rhinitis J30.9 ; Stage 3 chronic kidney disease N18.3 ; Fibromyalgia M79.7 ; Hypothyroidism E03.9 ; GERD (gastroesophageal reflux disease) K21.9 and Vitamin D deficiency E55.9 [facility] [address] [address] Dec, Raynauds syndrome I73.00 ; P lantar fascial fibromatosis M72.2 ; Osteoarthritis M19.90 and Fibromyalgia M79.7 [place] [address] [address] Dec, [place] [address] [address] Dec, [facility] [address] [address] Oct, Function kidney decreased N2 8.9 [facility] [address] [id number] [address] [place] [id number] 19 Oct, 2016 Dental examination Z01.20 [facility] [address] [id number] [address] [place] [address] 18 Oct, 2016 Essential hypertension I10 a nd Function kidney decreased N28.9 [facility] [address] [id number] [address] [place] [id number] 04 Oct, 2016 Dental examination Z01.20 [facility] [address] [id number] [address] [place] [address] 03 Oct, 2016 [facility] [address] [id number] [address] [place] [address] 24 Sep, 2016 Other specified disorders in volving the immune mechanism D89.89 and Schizo affective schizophrenia F25.0 [facility] [address] [id number] [address] [place] [address] Sep, Schizo affective schizophren ia F25.0 [facility] [address] [id number] [address] [place] [address] 16 Sep, 2016 Eustachian tube dysfunction, bilateral H69.83 [facility] [address] [id number] [address] [place] [address] 15 Sep, 2016 [facility] [address] [facility] [id number] [address] [place] [address] 14 Sep, 2016 [facility] [address] [id number] [address] [place] [address] 14 Sep, 2016 [facility] [address] [id number] [address] [place] [address] 13 Sep, 2016 Eustachian tube dysfunction, bilateral H69.83 [facility] [address] [facility] [id number] [address] [place] [address] 09 Sep, 2016 Allergic rhinitis J30.9 ; Es sential hypertension I10 ; Hypothyroidism E03.9 and Schizo affective schizophrenia F25.0 [facility] [address] [id number] [address] [place] [address] Jul, Eustachian tube dysfunction, bilateral H69.83 and Visit for TB skin test Z11.1 [facility] [address] [address] Jul, Subacute pansinusitis J01.40 [facility] [address] [address] Jun, Schizo affective schizophren ia F25.0 ; Depression F32.9 ; Allergic rhinitis J30.9 ; Raynauds syndrome I73.00 ; Essential hypertension I10 ; Slow transit constipation K59.01 ; GERD (gastroesophageal reflux disease) K21.9 ; Hypothyroidism E03.9 ; Nicotine addiction F17.200 ; Other viral agents as the cause of diseases classified elsewhere B97.89 ; Acute upper respiratory infection, unspecified J06.9 and Osteoarthritis M19.90 [facility] [address] [address] Jun, Allergic rhinitis J30.9 and GERD (gastroesophageal reflux disease) K21.9 [facility] [address] [address] May, [facility] [address] [address] Mar, Schizo affective schizophren ia F25.0 [facility] [address] [place] [id number] [address] [place] [address] Mar, Schizo affective schizophren ia F25.0 [facility] [address] [place] [address] 15 Mar, 2016 Schizo affective schizophren ia F25.0 [place] [address] [place] [id number] [place] [address] Mar, Acute non-recurrent maxillar y sinusitis J01.00 [facility] [address] [place] [id number] [address] [place] [address] Feb, Schizo affective schizophren ia F25.0 [place] [address] [facility] [id number] [address] [place] [address] Feb, Contact dermatitis and eczem a L25.9 [place] [address] [facility] [id number] [address] [place] [address] Jan, [place] [address] [place] [id number] [address] [place] [address] Jan, Schizo affective schizophren ia F25.0 ; Slow transit constipation K59.01 ; Essential hypertension I10 ; GERD (gastroesophageal reflux disease) K21.9 ; Hypothyroidism E03.9 ; Osteoarthritis M19.90 ; Low back pain, unspecified back pain laterality, unspecified chronicity, with sciatica presence unspecified M54.5 and Bilateral carotid artery disease I77.9 [place] [address] [place] [id number] [address] [place] [address] Oct, [place] [address] [address] Sep, Hypothyroid E03.9 [place] [address] [place] [id number] [address] [place] [address] Sep, Schizo affective schizophren ia F25.0 ; Depression F32.9 ; Anxiety F41.9 ; Allergic rhinitis J30.9 ; Raynauds syndrome I73.00 ; Insomnia G47.00 ; Essential hypertension I10 ; GERD (gastroesophageal reflux disease) K21.9 ; Hypothyroidism E03.9 and Vitamin D deficiency E55.9 [place] [address] [place] [address] Sep, [place] [address] [address] Sep, [place] [address] [place] [id number] [address] [place] [address] Aug, Allergic rhinitis J30.9 ; De pression F32.9 ; Anxiety F41.9 ; Raynauds syndrome I73.00 ; Insomnia G47.00 and GERD (gastroesophageal reflux disease) K21.9 [facility] [address] [place] [id number] [address] [place] [phone] Aug, MONICA (secretory otitis media) H65.90 and Raynauds syndrome I73.00 [facility] [address] [facility] [id number] [address] [place] [address] Jul, Acute otitis externa of both ears, unspecified type H60.503 [facility] [address] [place] [id number] [address] [place] [address] Jun, [facility] [address] [address] Jun, Essential hypertension I10 ; Allergic rhinitis J30.9 ; Hypothyroidism E03.9 and Osteoarthritis M19.90 [place] [address] [address] Jun, Routine adult health mainten ance Z00.00 ; Hypothyroidism E03.9 ; Essential hypertension I10 ; Insomnia G47.00 ; Nicotine addiction F17.200 ; Raynauds syndrome I73.00 ; GERD (gastroesophageal reflux disease) K21.9 ; Allergic rhinitis J30.9 ; Anxiety F41.9 ; Depression F32.9 and Schizo affective schizophrenia F25.0 [place] [address] [place] [id number] [address] [place] [address] May, Upper respiratory tract infe ction, unspecified type J06.9 [facility] [address] [place] [id number] [address] [place] [address] Mar, [facility] [address] [id number] [id number] Mar, [place] [address] [address] Mar, [place] [address] [place] [id number] [address] [place] [address] Mar, [facility] [address] [place] [address] Feb, Jaw pain 784.92 and Environm ental and seasonal allergies 477.8 [facility] [address] [id number] [address] [place] [address] Feb, [facility] [address] [id number] [address] [place] [address] Oct, [facility] [address] [id number] [address] [place] [address] Oct, [facility] [address] [id number] [address] [place] [address] Oct, [facility] [address] [id number] [address] [place] [address] Oct, [facility] [address] [id number] [address] [place] [address] Sep, [facility] [address] [id number] [address] [place] [address] Sep, [facility] [address] [id number] [address] [place] [address] Jul, [facility] [address] [id number] [address] [place] [address] Jul, [facility] [address] [id number] [address] [place] [address] Jul, [facility] [address] [id number] [address] [place] [address] Jul, [facility] [address] [id number] [address] [place] [address] Jul, [facility] [address] [id number] [address] [place] [address] Jul, [facility] [address] [id number] [address] [place] [address] Jul, [facility] [address] [id number] [address] [place] [address] 31 Jun, 2014 [facility] [address] [id number] [address] [place] [address], [place] [address] 31 Jun, 2014 [facility] [address] [id number] [address] [place] [address], [place] [address] 22 Jun, 2014 [facility] [address] [id number] [address] [place] [address], [place] [address] 18 Jun, 2014 [facility] [address] [id number] [address] [place] [address], [place] [address] 17 Jun, 2014 [facility] [address] [id number] [address] [place] [address], [place] [address] 17 Jun, 2014 [facility] [address] [id number] [address] [place] [address], [place] [address] 16 Jun, 2014 [facility] [address] [id number] [address] [place] [address], [place] [address] 16 Jun, 2014 [facility] [address] [id number] [address] [place] [address], [place] [address] 30 Apr, 2014 [facility] [address] [id number] [address] [place] [address], [place] [address] 30 Apr, 2014 [facility] [address] [id number] [address] [place] [address], [place] [address] 17 Mar, 2014 [facility] [address] [id number] [address] [place] [address], [place] [address] 17 Mar, 2014 [facility] [address] [id number] [address] [place] [address], [place] [address] Mar, [facility] [address] [id number] [address] [place] [address], [place] [address] 03 Mar, 2014 [facility] [address] [id number] [address] [place] [address], [place] [address] 16 Jan, 2014 [facility] [address] [id number] [address] [place] [address], [place] [address] 16 Jan, 2014 [facility] [address] [id number] [address] [place] [address], [place] [address] Oct, [facility] [address] [id number] [address] [place] [address], [place] [address] Oct, [facility] [address] [id number] [address] [place] [address], [place] [address] Sep, [facility] [address] [id number] [address] [place] [address], [place] [address] Sep, [facility] [address] [id number] [address] [place] [address], [place] [address] Sep, [facility] [address] [id number] [address] [place] [address], [place] [address] Sep, [facility] [address] [id number] [address] [place] [address], [place] [address] Sep, [facility] [address] [id number] [address] [place] [address], [place] [address] Sep, [facility] [address] [id number] [address] [place] [address], [place] [address] Aug, [facility] [address] [id number] [address] [place] [address], [place] [address] Aug, [facility] [address] [id number] [address] [place] [address], [place] [address] Jul, [facility] [address] [id number] [address] [place] [address], [place] [address] Jul, [facility] [address] [id number] [address] [place] [address], [place] [address] Jul, [facility] [address] [id number] [address] [place] [address], [place] [address] Jul, [facility] [address] [id number] [address] [place] [address], [place] [address] Jun, [facility] [address] [id number] [address] [place] [address], [place] [address] Jun, [facility] [address] [id number] [address] [place] [address], [place] [address] May, [facility] [address] [id number] [address] [place] [address], [place] [address] May, [facility] [address] [id number] [address] [place] [address], [place] [address] Apr, [facility] [address] [id number] [address] [place] [address], [place] [address] Apr, [facility] [address] [id number] [address] [place] [address], [place] [address] Apr, [facility] [address] [id number] [address] [place] [address], [place] [address] Apr, [facility] [address] [id number] [address] [place] [address], [place] [address] Apr, [facility] [address] [id number] [address] [place] [address] Apr, [facility] [address] [id number] [address] [place] [address], [place] [address] Mar, [facility] [address] [id number] [address] [place] [address] Mar, [facility] [address] [id number] [address] [place] [id number] Mar, [facility] [address] [id number] [address] [place] [id number] Mar, [facility] [address] [id number] [address] [place] [address], [place] [id number] Mar, [facility] [address] [id number] [address] [place] [id number] Feb, [facility] [address] [id number] [address] [place] [address], [place] [id number] Feb, [facility] [address] [id number] [address] [place] [address], [place] [id number] 13 Feb, 2013 [facility] [address] [id number] [address] [place] [address], [place] [id number] 08 Feb, 2013 [facility] [address] [id number] [address] [place] [address], [place] [id number] 18 Jan, 2013 [facility] [address] [id number] [address] [place] [address], [place] [id number] 17 Jan, 2013 [facility] [address] [id number] [address] [place] [address], [place] [id number] 16 Jan, 2013 [facility] [address] [id number] [address] [place] [address], [place] [id number] Jan, [facility] [address] [id number] [address] [place] [address], [place] [id number] Jan, [facility] [address] [id number] [address] [place] [address], [place] [id number] Jan, [facility] [address] [id number] [address] [place] [address], [place] [id number] 27 Dec, 2012 [facility] [address] [id number] [address] [place] [address], [place] [id number] 25 Dec, 2012 [facility] [address] [id number] [address] [place] [address], [place] [id number] Dec, [facility] [address] [id number] [address] [place] [address], [place] [id number] 14 Dec, 2012 [facility] [address] [id number] [address] [place] [address], [place] [id number] 13 Dec, 2012 [facility] [address] [id number] [address] [place] [address], [place] [id number] 12 Dec, 2012 [facility] [address] [id number] [address] [place] [address], [place] [id number] 11 Dec, 2012 [facility] [address] [id number] [address] [place] [address], [place] [id number] Dec, [facility] [address] [id number] [address] [place] [address], [place] [id number] Dec, [facility] [address] [id number] [address] [place] [address], [place] [id number] Dec, [facility] [address] [address] [id number] [address] [place] [address], [place] [address] November, [facility] [address] [id number] [address] [place] [address], [place] [address] November, [facility] [address] [id number] [address] [place] [address], [place] [address] November, [facility] [address] [id number] [address] [place] [address], [place] [address] November, [facility] [address] [id number] [address] [place] [address], [place] [address] November, [facility] [address] [id number] [address] [place] [address], [place] [address] Oct, [facility] [address] [id number] [address] [place] [address], [place] [address] Oct, [facility] [address] [id number] [address] [place] [address], [place] [address] Oct, [facility] [address] [id number] [address] [place] [address], [place] [address] Oct, [facility] [address] [id number] [address] [place] [address], [place] [address] Oct, [facility] [address] [id number] [address] [place] [address], [place] [address] Sep, [facility] [address] [id number] [address] [place] [address], [place] [address] Sep, [facility] [address] [id number] [address] [place] [address], [place] [address] Sep, [facility] [address] [id number] [address] [place] [address], [place] [address] 05 Sep, 2012 [facility] [address] [id number] [address] [place] [address], [place] [address] 26 Aug, 2012 [facility] [address] [id number] [address] [place] [address], [place] [address] 18 Aug, 2012 [facility] [address] [id number] [address] [place] [address], [place] [address] 18 Aug, 2012 [facility] [address] [id number] [address] [place] [address], [place] [address] 15 Aug, 2012 [facility] [address] [id number] [address] [place] [address], [place] [address] Jun, [facility] [address] [id number] [address] [place] [address], [place] [address] Jun, [facility] [address] [id number] [address] [place] [address], [place] [address] Jun, [facility] [address] [id number] [address] [place] [address], [place] [address] Jun, [facility] [address] [id number] [address] [place] [address], [place] [address] Jun, [facility] [address] [id number] [address] [place] [address], [place] [address] Jun, [facility] [address] [id number] [address] [place] [address], [place] [address] Jun, [facility] [address] [id number] [address] [place] [address], [place] [address] Jun, [facility] [address] [id number] [address] [place] [address], [place] [address] Jun, [facility] [address] [id number] [address] [place] [address], [place] [address] Jun, [facility] [address] [id number] [address] [place] [address], [place] [address] May, [facility] [address] [id number] [address] [place] [address], [place] [address] 27 May, 2012 [facility] [address] [id number] [address] [place] [address], [place] [address] 27 May, 2012 [facility] [address] [id number] [address] [place] [address], [place] [address] 26 May, 2012 [facility] [address] [id number] [address] [place] [address], [place] [address] 26 May, 2012 [facility] [address] [id number] [address] [place] [address], [place] [address] 16 May, 2012 [facility] [address] [id number] [address] [place] [address], [place] [address] 16 May, 2012 [facility] [address] [id number] [address] [place] [address], [place] [address] 14 May, 2012 [facility] [address] [id number] [address] [place] [address], [place] [address] 14 May, 2012 [facility] [address] [id number] [address] [place] [address], [place] [address] 30 Apr, 2012 [facility] [address] [id number] [address] [place] [address], [place] [address] 30 Apr, 2012 [facility] [address] [id number] [address] [place] [address], [place] [address] 17 Apr, 2012 [facility] [address] [id number] [address] [place] [address], [place] [address] 17 Apr, 2012 [facility] [address] [id number] [address] [place] [address], [place] [address] 09 Apr, 2012 [facility] [address] [id number] [address] [place] [address], [place] [address] 18 Mar, 2012 [facility] [address] [id number] [address] [place] [address], [place] [address] 17 Sep2011 [facility] [address] [id number] [address] [place] [address], [place] [address] Mar, [facility] [address] [id number] [address] [place] [address], [place] [address] Feb, [facility] [address] [id number] [address] [place] [address], [place] [address] Feb, [facility] [address] [id number] [address] [place] [address], [place] [address] Feb, [facility] [address] [id number] [address] [place] [address], [place] [address] Feb, [facility] [address] [id number] [address] [place] [address], [place] [address] Jan, [facility] [address] [id number] [address] [place] [address], [place] [address] Jan, [facility] [address] [id number] [address] [place] [address], [place] [address] Jan, [facility] [address] [id number] [address] [place] [address], [place] [address] Jan, [facility] [address] [id number] [address] [place] [address], [place] [address] Jan, [facility] [address] [id number] [address] [place] [address], [place] [address] Jan, [facility] [address] [id number] [address] [place] [address], [place] [address] Dec, [facility] [address] [id number] [address] [place] [address], [place] [address] Dec, [facility] [address] [id number] [address] [place] [address], [place] [address] Dec, [facility] [address] [id number] [address] [place] [address], [place] [address] November, [facility] [address] [id number] [address] [place] [address], [place] [address] November, [facility] [address] [id number] [address] [place] [address], [place] [address] November, [facility] [address] [id number] [address] [place] [address], [place] [address] November, [facility] [address] [id number] [address] [place] [address], [place] [address] Oct, [facility] [address] [id number] [address] [place] [address], [place] [address] Oct, [facility] [address] [id number] [address] [place] [address], [place] [address] Oct, [facility] [address] [id number] [address] [place] [address], [place] [address] Sep, [facility] [address] [id number] [address] [place] [address], [place] [address] Sep, [facility] [address] [id number] [address] [place] [address], [place] [address] Aug, [facility] [address] [id number] [address] [place] [address], [place] [address] Aug, [facility] [address] [id number] [address] [place] [address], [place] [address] Aug, [facility] [address] [id number] [address] [place] [address], [place] [address] Aug, [facility] [address] [id number] [address] [place] [address], [place] [address] Jul, [facility] [address] [id number] [address] [place] [address], [place] [address] Jul, [facility] [address] [id number] [address] [place] [address], [place] [address] Jul, [facility] [address] [id number] [address] [place] [address], [place] [address] Jul, [facility] [address] [id number] [address] [place] [address], [place] [address] Jul, [facility] [address] [id number] [address] [place] [address], [place] [address] Jul, [facility] [address] [id number] [address] [place] [address], [place] [address] Jul, [facility] [address] [id number] [address] [place] [address], [place] [address] Jul, [facility] [address] [id number] [address] [place] [address], [place] [address] 30 Jun, 2011 [facility] [address] [id number] [address] [place] [address], [place] [address] 26 Jun, 2011 [facility] [address] [id number] [address] [place] [address], [place] [address] 15 Jun, 2011 [facility] [address] [id number] [address] [place] [address], [place] [address] Jun, [facility] [address] [id number] [address] [place] [address], [place] [address] Jun, [facility] [address] [id number] [address] [place] [address], [place] [address] May, [facility] [address] [id number] [address] [place] [address], [place] [address] May, [facility] [address] [id number] [address] [place] [address], [place] [address] May, [facility] [address] [id number] [address] [place] [address], [place] [address] 15 May, 2011 [facility] [address] [id number] [address] [place] [address], [place] [address] May, [facility] [address] [id number] [address] [place] [address], [place] [address] May, [facility] [address] [id number] [address] [place] [address], [place] [address] Apr, [facility] [address] [id number] [address] [place] [id number] 13 Apr, 2011 [facility] [address] [id number] [address] [place] [id number] Apr, [facility] [address] [id number] [address] [place] [phone] Feb, [facility] [address] [id number] [address] [place] [phone] Feb, [facility] [address] [id number] [address] [place] [id number] Oct, [facility] [address] [id number] [address] [place] [phone] Jul, [facility] [address] [id number] [address] [place] [phone] Jul, [facility] [address] [id number] [address] [place] [phone] Jun, [facility] [address] [id number] [address] [place] [id number] May, [facility] [address] [id number] [address] [place] [phone] May, [facility] [address] [id number] [address] [place] [phone] May, [facility] [address] [id number] [address] [place] [phone] Apr, [facility] [address] [id number] [address] [place] [phone] Jan, [facility] [address] [id number] [address] [place] [phone] November, IMMUNIZATIONS No Known Immunizations SOCIAL HISTORY Never Assessed REASON FOR VISIT PLAN OF CARE VITAL SIGNS MEDICATIONS Unknown Medications RESULTS No Results PROCEDURES Procedure Date Ordered Result Body Site COMPLETE CBC W/AUTO DIFF WBC Jun 29, 2014 ASSAY THYROID STIM HORMONE Jun 29, 2014 ASSAY OF DIHYDROXYVITAMIN D Jun 29, 2014 LIPID PANEL Jun 29, 2014 COMPREHEN METABOLIC PANEL Jun 29, 2014 X-RAY EXAM OF ELBOW Jun 29, 2014 VENIPUNCT, ROUTINE* Jun 29, 2014 INSTRUCTIONS MEDICATIONS ADMINISTERED No Known Medications [...]
--- OUTSIDE RECORDS SUMMARY | 2020-01-31 09:46 | XMS REPORT ---
Author Author Ivet Knott Doctor Organization [facility] Address Unknown Phone Unavailable Care Team Providers Care Emergency Medicine Physician Assistant Name Role Phone Migration, Doctor Unavailable Unavailable PROBLEMS Type Condition ICD9-CM Code [id number] Code Onset Dates Condition S tatus SNOMED Code Problem Schizo affective schizophrenia F25.0 Active 124723041 Problem Essential hypertension I10 Active 77972224 Problem GERD (gastroesophageal reflux disease) K21.9 Active 581715784 Problem Depression F32.9 Active 74958665 Problem Anxiety F41.9 Active 25995722 Problem Hypothyroidism E03.9 Active 12902 008 Problem Bilateral carotid artery disease I77.9 Active 952172890 Problem Stage 3 chronic kidney disease N18.3 Active 898018141 Problem Fibromyalgia M79.7 Active 8435248 05 Problem Idiopathic peripheral neuropathy G60.9 Active 17061122 Problem Low back pain, unspecified b ack pain laterality, unspecified chronicity, with sciatica presence unspecified M54.5 Active 721072057 Problem Acquired hypothyroidism E03.9 Active 461684154 Problem Osteoarthritis M19.90 Active 67635 5006 Problem Vitamin D deficiency E55.9 Active 71815855 Problem Iron deficiency anemia, unspecified iron deficiency an emia type D50.9 Active 28012436 Problem Secondary hyperparathyroidism, not elsewhere classified E21.1 Active 25279409 Problem Sensory loss R20.0 Active 2062304 9 ALLERGIES No Information ENCOUNTERS Encounter Location Date Diagnosis [facility] [address] [facility] [id number] [address] [place] [address] Jan, Osteoarthritis M19.90 [facility] [address] [facility] [id number] [address] [place] [address] Jan, Osteoarthritis M19.90 [facility] [address] [facility] [id number] [address] [place] [address] Dec, Acquired hypothyroidism E03. 9 [facility] [address] [facility] [id number] [address] [place] [address] Dec, Fibromyalgia M79.7 ; Hypothy roidism E03.9 ; Essential hypertension I10 and Sensory loss R20.[address] [address] November, Osteoarthritis M19.90 [facility] [address] [facility] [id number] [address] [place] [address] Oct, Osteoarthritis M19.90 [facility] [address] [facility] [id number] [address] [place] [address] Oct, Sore throat J02.9 and Acute nasopharyngitis J00 [facility] [address] [facility] [id number] [address] [place] [address] Sep, Osteoarthritis M19.90 [facility] [address] [facility] [id number] [address] [place] [address] Sep, Acute non-recurrent maxillar y sinusitis J01.00 [facility] [address] [facility] [id number] [address] [place] [address] Aug, Acute non-recurrent pansinus itis J01.40 [facility] [address] [facility] [id number] [address] [place] [address] Jul, Osteoarthritis M19.90 [facility] [address] [facility] [id number] [address] [place] [address] Jul, [facility] [address] [facility] [id number] [address] [place] [address] Apr, Osteoarthritis M19.90 [facility] [address] [facility] [id number] [address] [place] [address] Apr, Fibromyalgia M79.7 ; Essenti al hypertension I10 ; Encounter for immunization Z23 ; Stage 3 chronic kidney disease N18.3 and Depression F32.9 [facility] [address] [facility] [id number] [address] [place] [address] Dec, Fibromyalgia M79.7 ; Osteoar thritis M19.90 and Encounter for medication management Z79.899 [facility] [address] [facility] [id number] [address] [place] [address] November, Nausea and vomiting, intract ability of vomiting not specified, unspecified vomiting type R11.2 and Dizziness R42 [facility] [address] [place] [id number] [address] [place] [address] November, Fibromyalgia M79.7 [facility] [address] [address] November, Medicare annual wellness vis it, initial Z00.00 ; Anxiety F41.9 ; Depression F32.9 ; Stage 3 chronic kidney disease N18.3 ; Fibromyalgia M79.7 ; Essential hypertension I10 ; Secondary hyperparathyroidism, not elsewhere classified E21.1 ; Osteoarthritis M19.90 ; Hypothyroidism E03.9 and Encounter for immunization Z23 [facility] [address] [place] [id number] [address] [place] [address] Oct, [facility] [address] [address] Oct, Sebaceous cyst L72.3 [place] [address] [address] Sep, Low back pain, unspecified b ack pain laterality, unspecified chronicity, with sciatica presence unspecified M54.5 and Secondary hyperparathyroidism, not elsewhere classified E21.1 [facility] [address] [place] [id number] [address] [place] [address] Sep, Fibromyalgia M79.7 [place] [id number] [place] [id number] [address] [place] [address] Sep, Fibromyalgia M79.7 ; Plantar fasciitis, bilateral M72.2 ; Essential hypertension I10 ; Depression F32.9 and Epidermoid cyst L72.0 [facility] [address] [place] [id number] [address] [place] [address] Jul, [place] [address] [address] Jul, Fibromyalgia M79.7 ; Iron de ficiency anemia, unspecified iron deficiency anemia type D50.9 and Acute nasopharyngitis J00 [facility] [address] [address] Jun, Sore throat J02.9 and Acute serous otitis media of left ear, recurrence not specified H65.02 [facility] [address] [address] Jun, Hypothyroidism E03.9 [place] [address] [address] Jun, [place] [address] [address] Jun, Hypothyroidism E03.9 ; Essen tial hypertension I10 and Osteoarthritis M19.90 [place] [address] [address] May, [place] [address] [address] May, [place] [address] [address] Feb, [place] [address] [address] Feb, Leonela-menopausal N95.1 and To bacco use Z72.0 [place] [address] [address] Jan, [place] [address] [address] Jan, Osteoarthritis M19.90 ; Bila teral carotid artery disease I77.9 ; Raynauds syndrome I73.00 ; Essential hypertension I10 ; Allergic rhinitis J30.9 ; Stage 3 chronic kidney disease N18.3 ; Fibromyalgia M79.7 ; Hypothyroidism E03.9 ; GERD (gastroesophageal reflux disease) K21.9 and Vitamin D deficiency E55.9 [facility] [address] [facility] [id number] [address] [place] [address] Dec, Raynauds syndrome I73.00 ; P lantar fascial fibromatosis M72.2 ; Osteoarthritis M19.90 and Fibromyalgia M79.7 [facility] [address] [place] [id number] [address] [place] [address] Dec, [facility] [address] [place] [id number] [address] [place] [address] Dec, [facility] [address] [place] [id number] [place] [address] Oct, Function kidney decreased N2 8.9 [facility] [address] [place] [id number] Oct, Dental examination Z01.20 [place] [address] [address] 18 Oct, 2016 Essential hypertension I10 a nd Function kidney decreased N28.9 [facility] [address] [place] [id number] Oct, Dental examination Z01.20 [facility] [address] [place] [id number] [address] [place] [address] Oct, [place] [address] [place] [id number] [place] [address] Sep, Other specified disorders in volving the immune mechanism D89.89 and Schizo affective schizophrenia F25.0 [facility] [address] [place] [id number] [address] [place] [address] Sep, Schizo affective schizophren ia F25.0 [facility] [address] [place] [id number] [address] [place] [address] Sep, Eustachian tube dysfunction, bilateral H69.83 [facility] [address] [place] [id number] [address] [place] [address] Sep, [facility] [address] [address] 14 Sep, 2016 [facility] [address] [address] 14 Sep, 2016 [facility] [address] [address] 13 Sep, 2016 Eustachian tube dysfunction, bilateral H69.83 [place] [address] [address] 09 Sep, 2016 Allergic rhinitis J30.9 ; Es sential hypertension I10 ; Hypothyroidism E03.9 and Schizo affective schizophrenia F25.0 [place] [address] [address] Jul, Eustachian tube dysfunction, bilateral H69.83 and Visit for TB skin test Z11.1 [facility] [address] [address] Jul, Subacute pansinusitis J01.[address] [address] Jun, Schizo affective schizophren ia F25.0 ; Depression F32.9 ; Allergic rhinitis J30.9 ; Raynauds syndrome I73.00 ; Essential hypertension I10 ; Slow transit constipation K59.01 ; GERD (gastroesophageal reflux disease) K21.9 ; Hypothyroidism E03.9 ; Nicotine addiction F17.200 ; Other viral agents as the cause of diseases classified elsewhere B97.89 ; Acute upper respiratory infection, unspecified J06.9 and Osteoarthritis M19.[address] [address] Jun, Allergic rhinitis J30.9 and GERD (gastroesophageal reflux disease) K21.9 [facility] [address] [address] May, [place] [address] [address] Mar, Schizo affective schizophren ia F25.0 [facility] [address] [facility] [id number] [address] [place] [address] Mar, Schizo affective schizophren ia F25.0 [facility] [address] [facility] [id number] [address] [place] [address] 15 Mar, 2016 Schizo affective schizophren ia F25.0 [facility] [address] [place] [id number] [address] [place] [address] Mar, Acute non-recurrent maxillar y sinusitis J01.00 [place] [address] [place] [id number] [address] [place] [address] Feb, Schizo affective schizophren ia F25.0 [facility] [address] [place] [id number] [address] [place] [address] Feb, Contact dermatitis and eczem a L25.9 [facility] [address] [place] [id number] [address] [place] [address] Jan, [facility] [address] [place] [id number] [address] [place] [address] Jan, Schizo affective schizophren ia F25.0 ; Slow transit constipation K59.01 ; Essential hypertension I10 ; GERD (gastroesophageal reflux disease) K21.9 ; Hypothyroidism E03.9 ; Osteoarthritis M19.90 ; Low back pain, unspecified back pain laterality, unspecified chronicity, with sciatica presence unspecified M54.5 and Bilateral carotid artery disease I77.9 [facility] [address] [place] [id number] [address] [place] [address] Oct, [facility] [address] [place] [id number] [address] [place] [address] Sep, Hypothyroid E03.9 [facility] [address] [facility] [id number] [address] [place] [address] Sep, Schizo affective schizophren ia F25.0 ; Depression F32.9 ; Anxiety F41.9 ; Allergic rhinitis J30.9 ; Raynauds syndrome I73.00 ; Insomnia G47.00 ; Essential hypertension I10 ; GERD (gastroesophageal reflux disease) K21.9 ; Hypothyroidism E03.9 and Vitamin D deficiency E55.9 [facility] [address] [place] [id number] [address] [place] [address] Sep, [facility] [address] [address] Sep, [place] [address] [address] Aug, Allergic rhinitis J30.9 ; De pression F32.9 ; Anxiety F41.9 ; Raynauds syndrome I73.00 ; Insomnia G47.00 and GERD (gastroesophageal reflux disease) K21.9 [place] [address] [address] Aug, MONICA (secretory otitis media) H65.90 and Raynauds syndrome I73.00 [facility] [address] [place] [id number] [address] [place] [address] Jul, Acute otitis externa of both ears, unspecified type H60.503 [place] [address] [place] [id number] [address] [place] [address] Jun, [place] [address] [address] Jun, Essential hypertension I10 ; Allergic rhinitis J30.9 ; Hypothyroidism E03.9 and Osteoarthritis M19.90 [place] [address] [place] [id number] [address] [place] [address] Jun, Routine adult health mainten ance Z00.00 ; Hypothyroidism E03.9 ; Essential hypertension I10 ; Insomnia G47.00 ; Nicotine addiction F17.200 ; Raynauds syndrome I73.00 ; GERD (gastroesophageal reflux disease) K21.9 ; Allergic rhinitis J30.9 ; Anxiety F41.9 ; Depression F32.9 and Schizo affective schizophrenia F25.0 [facility] [address] [id number] [address] [place] [address] May, Upper respiratory tract infe ction, unspecified type J06.9 [facility] [address] [id number] [address] [place] [address] Mar, [facility] [address] [id number] [place] [id number] Mar, [facility] [address] [id number] [address] [place] [address] Mar, [facility] [address] [id number] [address] [place] [address] Mar, [facility] [address] [facility] [id number] [address] [place] [address] Feb, Jaw pain 784.92 and Environm ental and seasonal allergies 477.8 [facility] [address] [id number] [address] [place] [address] Feb, [facility] [address] [facility] [id number] [address] [place] [address] Oct, [facility] [address] [facility] [id number] [address] [place] [address] Oct, [facility] [address] [facility] [id number] [address] [place] [address] Oct, [facility] [address] [id number] [address] [place] [address] Oct, [facility] [address] [facility] [id number] [address] [place] [address] Sep, [facility] [address] [id number] [address] [place] [address] Sep, [facility] [address] [id number] [address] [place] [address] Jul, [facility] [address] [id number] [address] [place] [address] Jul, [facility] [address] [id number] [address] [place] [address], [place] [address] Jul, [facility] [address] [id number] [address] [place] [address], [place] [address] Jul, [facility] [address] [id number] [address] [place] [address], [place] [address] Jul, [facility] [address] [id number] [address] [place] [address], [place] [address] Jul, [facility] [address] [id number] [address] [place] [address], [place] [address] Jul, [facility] [address] [id number] [address] [place] [address], [place] [address] Jun, [facility] [address] [id number] [address] [place] [address], [place] [address] Jun, [facility] [address] [id number] [address] [place] [address], [place] [address] 22 Jun, 2014 [facility] [address] [id number] [address] [place] [address], [place] [address] 18 Jun, 2014 [facility] [address] [id number] [address] [place] [address], [place] [address] Jun, [facility] [address] [id number] [address] [place] [address], [place] [address] 17 Jun, 2014 [facility] [address] [id number] [address] [place] [address], [place] [address] 16 Jun, 2014 [facility] [address] [id number] [address] [place] [address], [place] [address] 16 Jun, 2014 [facility] [address] [id number] [address] [place] [address], [place] [address] 30 Apr, 2014 [facility] [address] [id number] [address] [place] [address], [place] [address] 30 Apr, 2014 [facility] [address] [id number] [facility] [place] [address] 17 Mar, 2014 [facility] [address] [id number] [address] [place] [address], [place] [address] 17 Mar, 2014 [facility] [address] [id number] [address] [place] [address], [place] [address] Mar, [facility] [address] [id number] [address] [place] [address], [place] [address] Mar, [facility] [address] [id number] [address] [place] [address], [place] [address] Jan, [facility] [address] [id number] [address] [place] [address], [place] [address] Jan, [facility] [address] [id number] [address] [place] [address], [place] [address] Oct, [facility] [address] [id number] [address] [place] [address], [place] [address] Oct, [facility] [address] [id number] [address] [place] [address], [place] [address] Sep, [facility] [address] [id number] [address] [place] [address], [place] [address] Sep, [facility] [address] [id number] [address] [place] [address], [place] [address] Sep, [facility] [address] [id number] [address] [place] [address], [place] [address] Sep, [facility] [address] [id number] [address] [place] [address], [place] [address] Sep, [facility] [address] [id number] [address] [place] [address], [place] [address] Sep, [facility] [address] [id number] [address] [place] [address], [place] [address] Aug, [facility] [address] [id number] [address] [place] [address], [place] [address] Aug, [facility] [address] [id number] [address] [place] [address], [place] [address] Jul, [facility] [address] [id number] [address] [place] [address], [place] [address] Jul, [facility] [address] [id number] [address] [place] [address], [place] [address] Jul, [facility] [address] [id number] [address] [place] [address], [place] [address] Jul, [facility] [address] [id number] [address] [place] [address], [place] [address] Jun, [facility] [address] [id number] [address] [place] [address], [place] [address] Jun, [facility] [address] [id number] [address] [place] [address], [place] [address] May, [facility] [address] [id number] [address] [place] [address] May, [facility] [address] [id number] [address] [place] [address], [place] [address] Apr, [facility] [address] [id number] [address] [place] [address] Apr, [facility] [address] [id number] [address] [place] [address] Apr, [facility] [address] [id number] [address] [place] [address] Apr, [facility] [address] [id number] [address] [place] [address] Apr, [facility] [address] [id number] [address] [place] [address] Apr, [facility] [address] [id number] [address] [place] [address] Mar, [facility] [address] [id number] [address] [place] [address] 12 Mar, 2013 [facility] [address] [id number] [address] [place] [address], [place] [address] 09 Mar, 2013 [facility] [address] [id number] [address] [place] [address], [place] [address] 05 Mar, 2013 [facility] [address] [id number] [address] [place] [address], [place] [address] 05 Mar, 2013 [facility] [address] [id number] [address] [place] [address], [place] [address] 30 Feb, 2013 [facility] [address] [id number] [address] [place] [address], [place] [address] Feb, [facility] [address] [id number] [address] [place] [address], [place] [address] Feb, [facility] [address] [id number] [address] [place] [address], [place] [address] Feb, [facility] [address] [id number] [address] [place] [address], [place] [address] Jan, [facility] [address] [id number] [address] [place] [address], [place] [address] Jan, [facility] [address] [id number] [address] [place] [address], [place] [address] 16 Jan, 2013 [facility] [address] [id number] [address] [place] [address], [place] [address] Jan, [facility] [address] [id number] [address] [place] [address], [place] [address] Jan, [facility] [address] [id number] [address] [place] [address], [place] [address] Jan, [facility] [address] [id number] [address] [place] [address], [place] [address] Dec, [facility] [address] [id number] [address] [place] [address], [place] [address] Dec, [facility] [address] [id number] [address] [place] [address], [place] [address] 19 Dec, 2012 [facility] [address] [id number] [address] [place] [address], [place] [address] 14 Dec, 2012 [facility] [address] [id number] [address] [place] [address], [place] [address] 13 Dec, 2012 [facility] [address] [id number] [address] [place] [address], [place] [address] 12 Dec, 2012 [facility] [address] [id number] [address] [place] [address], [place] [address] Dec, [facility] [address] [id number] [address] [place] [address], [place] [address] 07 Dec, 2012 [facility] [address] [id number] [address] [place] [address], [place] [address] 05 Dec, 2012 [facility] [address] [id number] [address] [place] [address], [place] [address] Dec, [facility] [address] [id number] [address] [place] [address], [place] [address] November, [facility] [address] [id number] [address] [place] [address], [place] [address] November, [facility] [address] [id number] [address] [place] [address], [place] [address] November, [facility] [address] [id number] [address] [place] [address], [place] [address] November, [facility] [address] [id number] [address] [place] [address], [place] [address] November, [facility] [address] [id number] [address] [place] [address], [place] [address] 30 Oct, 2012 [facility] [facility] [address] [id number] [address] [place] [address], [place] [address] Oct, [facility] [address] [id number] [address] [place] [address], [place] [address] Oct, [facility] [address] [id number] [address] [place] [address], [place] [address] Oct, [facility] [address] [id number] [address] [place] [address], [place] [address] Oct, [facility] [address] [id number] [address] [place] [address], [place] [address] Sep, [facility] [address] [id number] [address] [place] [address], [place] [address] Sep, [facility] [address] [id number] [address] [place] [address], [place] [address] Sep, [facility] [address] [id number] [address] [place] [address], [place] [address] 05 Sep, 2012 [facility] [address] [id number] [address] [place] [address], [place] [address] Aug, [facility] [address] [id number] [address] [place] [address], [place] [address] Aug, [facility] [address] [id number] [address] [place] [address], [place] [address] Aug, [facility] [address] [id number] [address] [place] [address], [place] [address] Aug, [facility] [address] [id number] [address] [place] [address], [place] [address] Jun, [facility] [address] [id number] [address] [place] [address], [place] [address] Jun, [facility] [address] [id number] [address] [place] [address], [place] [address] Jun, [facility] [address] [id number] [address] [place] [address], [place] [address] Jun, [facility] [address] [id number] [address] [place] [address], [place] [address] Jun, [facility] [address] [id number] [address] [place] [address], [place] [address] 06 Jun, 2012 [facility] [address] [id number] [address] [place] [address], [place] [address] Jun, [facility] [address] [id number] [address] [place] [address], [place] [address] Jun, [facility] [address] [id number] [address] [place] [address], [place] [address] Jun, [facility] [address] [id number] [address] [place] [address], [place] [address] Jun, [facility] [address] [id number] [address] [place] [address], [place] [address] 28 May, 2012 [facility] [address] [id number] [address] [place] [address], [place] [address] 27 May, 2012 [facility] [address] [id number] [address] [place] [address], [place] [address] 27 May, 2012 [facility] [address] [id number] [address] [place] [address], [place] [address] 26 May, 2012 [facility] [address] [id number] [address] [place] [address], [place] [address] 26 May, 2012 [facility] [address] [id number] [address] [place] [address], [place] [address] 16 May, 2012 [facility] [address] [id number] [address] [place] [address], [place] [address] 16 May, 2012 [facility] [address] [id number] [address] [place] [address], [place] [address] 14 May, 2012 [facility] [address] [id number] [address] [place] [address], [place] [address] 14 May, 2012 [facility] [address] [id number] [address] [place] [address], [place] [address] 30 Apr, 2012 [facility] [address] [id number] [address] [place] [address], [place] [address] 30 Apr, 2012 [facility] [address] [id number] [address] [place] [address], [place] [address] Apr, [facility] [address] [id number] [address] [place] [address], [place] [address] Apr, [facility] [address] [id number] [address] [place] [address], [place] [address] Apr, [facility] [address] [id number] [address] [place] [address], [place] [address] 18 Mar, 2012 [facility] [address] [id number] [address] [place] [address], [place] [address] 17 Mar, 2012 [facility] [address] [id number] [address] [place] [address], [place] [address] 07 Mar, 2012 [facility] [address] [id number] [address] [place] [address], [place] [address] 27 Feb, 2012 [facility] [address] [id number] [address] [place] [address], [place] [address] 16 Feb, 2012 [facility] [address] [id number] [address] [place] [address], [place] [address] 15 Feb, 2012 [facility] [address] [id number] [address] [place] [address], [place] [address] 14 Feb, 2012 [facility] [address] [id number] [address] [place] [address], [place] [address] Jan, [facility] [address] [id number] [address] [place] [address], [place] [address] Jan, [facility] [address] [id number] [address] [place] [address], [place] [address] Jan, [facility] [address] [id number] [address] [place] [address], [place] [address] Jan, [facility] [address] [id number] [address] [place] [address], [place] [address] Jan, [facility] [address] [id number] [address] [place] [address] 10 Jan, 2012 [facility] [address] [id number] [address] [place] [address], [place] [address] Dec, [facility] [address] [id number] [address] [place] [address], [place] [address] 14 Dec, 2011 [facility] [address] [id number] [address] [place] [address], [place] [address] Dec, [facility] [address] [id number] [address] [place] [address], [place] [address] November, [facility] [address] [id number] [address] [place] [address], [place] [address] November, [facility] [address] [id number] [address] [place] [address], [place] [address] November, [facility] [address] [id number] [address] [place] [address], [place] [address] November, [facility] [address] [id number] [address] [place] [address], [place] [address] Oct, [facility] [address] [id number] [address] [place] [address], [place] [address] Oct, [facility] [address] [id number] [address] [place] [address], [place] [address] Oct, [facility] [address] [id number] [address] [place] [address], [place] [address] Sep, [facility] [address] [id number] [address] [place] [address], [place] [address] Sep, [facility] [address] [id number] [address] [place] [address], [place] [address] Aug, [facility] [address] [id number] [address] [place] [address], [place] [address] Aug, [facility] [address] [id number] [address] [place] [address], [place] [address] Aug, [facility] [address] [id number] [address] [place] [address], [place] [address] Aug, [facility] [address] [id number] [address] [place] [address], [place] [address] Jul, [facility] [address] [id number] [address] [place] [address], [place] [address] Jul, [facility] [address] [id number] [address] [place] [address], [place] [address] Jul, [facility] [address] [id number] [address] [place] [address], [place] [address] Jul, [facility] [address] [id number] [address] [place] [address], [place] [address] Jul, [facility] [address] [id number] [address] [place] [address], [place] [address] Jul, [facility] [address] [id number] [address] [place] [address], [place] [address] Jul, [facility] [address] [id number] [address] [place] [address], [place] [address] Jul, [facility] [address] [id number] [address] [place] [address], [place] [address] Jun, [facility] [address] [id number] [address] [place] [address], [place] [address] Jun, [facility] [address] [id number] [address] [place] [address], [place] [address] Jun, [facility] [address] [id number] [address] [place] [address], [place] [address] Jun, [facility] [address] [id number] [address] [place] [address], [place] [address] Jun, [facility] [address] [id number] [address] [place] [address], [place] [address] May, [facility] [address] [id number] [address] [place] [address], [place] [address] May, [facility] [address] [id number] [address] [place] [address], [place] [address] 17 May, 2011 [facility] [address] [id number] [address] [place] [address], [place] [address] 15 May, 2011 [facility] [address] [id number] [address] [place] [address], [place] [address] May, [facility] [address] [id number] [address] [place] [address] May, [facility] [address] [id number] [address] [place] [address], [place] [address] Apr, [facility] [address] [id number] [address] [place] [address], [place] [address] Apr, [facility] [address] [id number] [address] [place] [address], [place] [address] Apr, [facility] [address] [id number] [address] [place] [address], [place] [address] Feb, [facility] [address] [id number] [address] [place] [address], [place] [address] Feb, [facility] [address] [id number] [address] [place] [address], [place] [address] Oct, [facility] [address] [id number] [address] [place] [address], [place] [address] Jul, [facility] [address] [id number] [address] [place] [address], [place] [address] Jul, [facility] [address] [id number] [address] [place] [address], [place] [address] Jun, [facility] [address] [id number] [address] [place] [address], [place] [address] May, [facility] [address] [id number] [address] [place] [address], [place] [address] May, [facility] [address] [id number] [address] [place] [address] May, [facility] [address] [facility] [id number] [address] [place] [address] Apr, [facility] [address] [facility] [id number] [address] [place] [address] Jan, [facility] [address] [facility] [id number] [address] [place] [address] November, IMMUNIZATIONS No Known Immunizations SOCIAL HISTORY [...]
--- OUTSIDE RECORDS SUMMARY | 2020-01-31 09:47 | XMS REPORT ---
Author Author Ivet Knott Doctor Organization [facility] Address Unknown Phone Unavailable Care Team Providers Care Pony Edger Name Role Phone Migration, Doctor Unavailable Unavailable PROBLEMS Type Condition ICD9-CM Code VWN62-NV Code Onset Dates Condition S tatus SNOMED Code Problem Schizo affective schizophrenia F25.0 Active 023304696 Problem Essential hypertension I10 Active 39084139 Problem GERD (gastroesophageal reflux disease) K21.9 Active 821137236 Problem Depression F32.9 Active 36895982 Problem Anxiety F41.9 Active 74869208 Problem Hypothyroidism E03.9 Active 48540 008 Problem Bilateral carotid artery disease I77.9 Active 531267868 Problem Stage 3 chronic kidney disease N18.3 Active 057023688 Problem Fibromyalgia M79.7 Active 7251823 05 Problem Idiopathic peripheral neuropathy G60.9 Active 97019421 Problem Low back pain, unspecified b ack pain laterality, unspecified chronicity, with sciatica presence unspecified M54.5 Active 039123664 Problem Acquired hypothyroidism E03.9 Active 639035333 Problem Osteoarthritis M19.90 Active 24277 5006 Problem Vitamin D deficiency E55.9 Active 81622164 Problem Iron deficiency anemia, unspecified iron deficiency an emia type D50.9 Active 56581644 Problem Secondary hyperparathyroidism, not elsewhere classified E21.1 Active 72497752 Problem Sensory loss R20.0 Active 0096886 9 ALLERGIES No Information ENCOUNTERS Encounter Location Date Diagnosis [place] [id number] [facility] [id number] [address] [place] [address] Dec, Acquired hypothyroidism E03. 9 [place] [address] [address] [facility] [id number] [address] [place] [address] Dec, Fibromyalgia M79.7 ; Hypothy roidism E03.9 ; Essential hypertension I10 and Sensory loss R20.[address] [address] November, Osteoarthritis M19.90 [place] [address] [address] [facility] [id number] [address] [place] [address] Oct, Osteoarthritis M19.90 [facility] [address] [place] [id number] [address] [place] [address] Oct, Sore throat J02.9 and Acute nasopharyngitis J00 [facility] [address] [facility] [id number] [address] [place] [address] Sep, Osteoarthritis M19.90 [facility] [address] [facility] [id number] [address] [place] [address] Sep, Acute non-recurrent maxillar y sinusitis J01.00 [facility] [address] [facility] [id number] [address] [place] [address] Aug, Acute non-recurrent pansinus itis J01.40 [place] [address] [address] [place] [id number] [address] [place] [address] Jul, Osteoarthritis M19.90 [facility] [address] [place] [id number] [address] [place] [address] Jul, [facility] [address] [address] Apr, Osteoarthritis M19.90 [facility] [address] [address] Apr, Fibromyalgia M79.7 ; Essenti al hypertension I10 ; Encounter for immunization Z23 ; Stage 3 chronic kidney disease N18.3 and Depression F32.9 [facility] [id number] [place] [address] Dec, Fibromyalgia M79.7 ; Osteoar thritis M19.90 and Encounter for medication management Z79.899 [facility] [address] [facility] [id number] [address] [place] [address] November, Nausea and vomiting, intract ability of vomiting not specified, unspecified vomiting type R11.2 and Dizziness R42 [facility] [address] [address] November, Fibromyalgia M79.7 [place] [address] [address] November, Medicare annual wellness vis it, initial Z00.00 ; Anxiety F41.9 ; Depression F32.9 ; Stage 3 chronic kidney disease N18.3 ; Fibromyalgia M79.7 ; Essential hypertension I10 ; Secondary hyperparathyroidism, not elsewhere classified E21.1 ; Osteoarthritis M19.90 ; Hypothyroidism E03.9 and Encounter for immunization Z23 [place] [address] [address] Oct, [place] [address] [address] Oct, Sebaceous cyst L72.3 [place] [address] [address] Sep, Low back pain, unspecified b ack pain laterality, unspecified chronicity, with sciatica presence unspecified M54.5 and Secondary hyperparathyroidism, not elsewhere classified E21.1 [place] [address] [address] Sep, Fibromyalgia M79.7 [place] [address] [address] Sep, Fibromyalgia M79.7 ; Plantar fasciitis, bilateral M72.2 ; Essential hypertension I10 ; Depression F32.9 and Epidermoid cyst L72.0 [place] [address] [address] Jul, [place] [address] [address] Jul, Fibromyalgia M79.7 ; Iron de ficiency anemia, unspecified iron deficiency anemia type D50.9 and Acute nasopharyngitis J00 [facility] [address] [place] [id number] [place] [address] Jun, Sore throat J02.9 and Acute serous otitis media of left ear, recurrence not specified H65.02 [place] [address] [address] Jun, Hypothyroidism E03.9 [place] [address] [address] Jun, [place] [address] [address] Jun, Hypothyroidism E03.9 ; Essen tial hypertension I10 and Osteoarthritis M19.90 [place] [address] [address] May, [place] [address] [address] May, [place] [address] [address] Feb, [place] [address] [address] Feb, Leonela-menopausal N95.1 and To bacco use Z72.0 [place] [address] [address] Jan, [place] [address] [address] Jan, Osteoarthritis M19.90 ; Bila teral carotid artery disease I77.9 ; Raynauds syndrome I73.00 ; Essential hypertension I10 ; Allergic rhinitis J30.9 ; Stage 3 chronic kidney disease N18.3 ; Fibromyalgia M79.7 ; Hypothyroidism E03.9 ; GERD (gastroesophageal reflux disease) K21.9 and Vitamin D deficiency E55.9 [place] [address] [address] [place] [id number] [address] [place] [address] Dec, Raynauds syndrome I73.00 ; P lantar fascial fibromatosis M72.2 ; Osteoarthritis M19.90 and Fibromyalgia M79.7 [facility] [address] [id number] [address] [place] [address] Dec, [facility] [address] [id number] [address] [place] [address] Dec, [facility] [address] [facility] [id number] [address] [place] [address] Oct, Function kidney decreased N2 8.9 [facility] [address] [id number] [address] [place] [id number] Oct, Dental examination Z01.20 [facility] [address] [id number] [address] [place] [address] 18 Oct, 2016 Essential hypertension I10 a nd Function kidney decreased N28.9 [facility] [address] [facility] [id number] [address] [place] [id number] Oct, Dental examination Z01.20 [facility] [address] [facility] [id number] [address] [place] [address] Oct, [facility] [address] [facility] [id number] [address] [place] [address] 24 Sep, 2016 Other specified disorders in volving the immune mechanism D89.89 and Schizo affective schizophrenia F25.0 [facility] [address] [place] [id number] [address] [place] [address] Sep, Schizo affective schizophren ia F25.0 [facility] [address] [facility] [id number] [address] [place] [address] 16 Sep, 2016 Eustachian tube dysfunction, bilateral H69.83 [facility] [address] [facility] [id number] [address] [place] [address] 15 Sep, 2016 [facility] [address] [facility] [id number] [address] [place] [address] 14 Sep, 2016 [facility] [address] [facility] [id number] [address] [place] [address] Sep, [facility] [address] [place] [id number] [address] [place] [address] Sep, Eustachian tube dysfunction, bilateral H69.83 [facility] [address] [address] Sep, Allergic rhinitis J30.9 ; Es sential hypertension I10 ; Hypothyroidism E03.9 and Schizo affective schizophrenia F25.0 [facility] [address] [address] Jul, Eustachian tube dysfunction, bilateral H69.83 and Visit for TB skin test Z11.1 [facility] [address] [address] Jul, Subacute pansinusitis J01.40 [place] [address] [address] Jun, Schizo affective schizophren ia F25.0 ; Depression F32.9 ; Allergic rhinitis J30.9 ; Raynauds syndrome I73.00 ; Essential hypertension I10 ; Slow transit constipation K59.01 ; GERD (gastroesophageal reflux disease) K21.9 ; Hypothyroidism E03.9 ; Nicotine addiction F17.200 ; Other viral agents as the cause of diseases classified elsewhere B97.89 ; Acute upper respiratory infection, unspecified J06.9 and Osteoarthritis M19.90 [place] [address] [address] Jun, Allergic rhinitis J30.9 and GERD (gastroesophageal reflux disease) K21.9 [facility] [address] [place] [id number] [address] [place] [address] May, [place] [address] [address] Mar, Schizo affective schizophren ia F25.0 [place] [address] [place] [id number] [address] [place] [address] Mar, Schizo affective schizophren ia F25.0 [place] [address] [address] 15 Mar, 2016 Schizo affective schizophren ia F25.0 [place] [address] [address] 06 Mar, 2016 Acute non-recurrent maxillar y sinusitis J01.00 [place] [address] [address] Feb, Schizo affective schizophren ia F25.0 [place] [address] [address] Feb, Contact dermatitis and eczem a L25.9 [place] [address] [address] Jan, [place] [address] [address] Jan, Schizo affective schizophren ia F25.0 ; Slow transit constipation K59.01 ; Essential hypertension I10 ; GERD (gastroesophageal reflux disease) K21.9 ; Hypothyroidism E03.9 ; Osteoarthritis M19.90 ; Low back pain, unspecified back pain laterality, unspecified chronicity, with sciatica presence unspecified M54.5 and Bilateral carotid artery disease I77.9 [place] [address] [address] Oct, [place] [address] [address] Sep, Hypothyroid E03.9 [place] [address] [address] Sep, Schizo affective schizophren ia F25.0 ; Depression F32.9 ; Anxiety F41.9 ; Allergic rhinitis J30.9 ; Raynauds syndrome I73.00 ; Insomnia G47.00 ; Essential hypertension I10 ; GERD (gastroesophageal reflux disease) K21.9 ; Hypothyroidism E03.9 and Vitamin D deficiency E55.9 [place] [address] [address] Sep, [facility] [address] [address] Sep, [place] [address] [address] Aug, Allergic rhinitis J30.9 ; De pression F32.9 ; Anxiety F41.9 ; Raynauds syndrome I73.00 ; Insomnia G47.00 and GERD (gastroesophageal reflux disease) K21.9 [place] [address] [address] Aug, MONICA (secretory otitis media) H65.90 and Raynauds syndrome I73.00 [facility] [address] [address] Jul, Acute otitis externa of both ears, unspecified type H60.503 [place] [address] [address] Jun, [place] [address] [address] Jun, Essential hypertension I10 ; Allergic rhinitis J30.9 ; Hypothyroidism E03.9 and Osteoarthritis M19.90 [place] [address] [address] Jun, Routine adult health mainten ance Z00.00 ; Hypothyroidism E03.9 ; Essential hypertension I10 ; Insomnia G47.00 ; Nicotine addiction F17.200 ; Raynauds syndrome I73.00 ; GERD (gastroesophageal reflux disease) K21.9 ; Allergic rhinitis J30.9 ; Anxiety F41.9 ; Depression F32.9 and Schizo affective schizophrenia F25.0 [place] [address] [address] [place] [id number] [address] [place] [address] May, Upper respiratory tract infe ction, unspecified type J06.9 [place] [address] [address] [place] [id number] [address] [place] [address] Mar, [facility] [address] [id number] [place] [id number] Mar, [facility] [address] [id number] [address] [place] [address], [place] [address] Mar, [facility] [address] [id number] [address] [place] [address], [place] [address] Mar, [facility] [address] [id number] [address] [place] [address], [place] [address] Feb, Jaw pain 784.92 and Environm ental and seasonal allergies 477.8 [facility] [address] [id number] [address] [place] [address] Feb, [facility] [address] [id number] [address] [place] [address] Oct, [facility] [address] [id number] [address] [place] [address] Oct, [facility] [address] [id number] [address] [place] [address] Oct, [facility] [address] [id number] [address] [place] [address], [place] [address] Oct, [facility] [address] [id number] [address] [place] [address] Sep, [facility] [address] [id number] [address] [place] [address] Sep, [facility] [address] [id number] [address] [place] [address] Jul, [facility] [address] [id number] [address] [place] [address] Jul, [facility] [address] [id number] [address] [place] [address] Jul, [facility] [address] [id number] [address] [place] [address] Jul, [facility] [address] [id number] [address] [place] [address], [place] [address] Jul, [facility] [address] [id number] [address] [place] [address], [place] [address] Jul, [facility] [address] [id number] [address] [place] [address], [place] [address] Jul, [facility] [address] [id number] [address] [place] [address], [place] [address] Jun, [facility] [address] [id number] [address] [place] [address], [place] [address] Jun, [facility] [address] [id number] [address] [place] [address], [place] [address] Jun, [facility] [address] [id number] [address] [place] [address], [place] [address] 18 Jun, 2014 [facility] [address] [id number] [address] [place] [address], [place] [address] Jun, [facility] [address] [id number] [address] [place] [address], [place] [address] Jun, [facility] [address] [id number] [address] [place] [address], [place] [address] 16 Jun, 2014 [facility] [address] [id number] [address] [place] [address], [place] [address] Jun, [facility] [address] [id number] [address] [place] [address], [place] [address] Apr, [facility] [address] [id number] [address] [place] [address], [place] [address] Apr, [facility] [address] [id number] [address] [place] [address], [place] [address] 17 Mar, 2014 [facility] [address] [id number] [address] [place] [address], [place] [address] 17 Mar, 2014 [facility] [address] [id number] [address] [place] [address], [place] [address] Mar, [facility] [address] [id number] [address] [place] [address], [place] [address] Mar, [facility] [address] [id number] [address] [place] [address], [place] [address] Jan, [facility] [address] [id number] [address] [place] [address], [place] [address] Jan, [facility] [address] [id number] [address] [place] [address], [place] [address] Oct, [facility] [address] [id number] [address] [place] [address], [place] [address] Oct, [facility] [address] [id number] [address] [place] [address], [place] [address] Sep, [facility] [address] [id number] [address] [place] [address], [place] [address] Sep, [facility] [address] [id number] [address] [place] [address], [place] [address] Sep, [facility] [address] [id number] [address] [place] [address], [place] [address] Sep, [facility] [address] [id number] [address] [place] [address], [place] [address] Sep, [facility] [address] [id number] [address] [place] [address], [place] [address] Sep, [facility] [address] [id number] [address] [place] [address], [place] [address] Aug, [facility] [address] [id number] [address] [place] [address], [place] [address] Aug, [facility] [address] [id number] [address] [place] [address], [place] [address] Jul, [facility] [address] [id number] [address] [place] [address], [place] [address] Jul, [facility] [address] [id number] [address] [place] [address], [place] [address] Jul, [facility] [address] [id number] [address] [place] [address], [place] [address] Jul, [facility] [address] [id number] [address] [place] [address], [place] [address] Jun, [facility] [address] [id number] [address] [place] [address], [place] [address] Jun, [facility] [address] [id number] [address] [place] [address], [place] [address] May, [facility] [address] [id number] [address] [place] [address], [place] [address] May, [facility] [address] [id number] [address] [place] [address], [place] [address] Apr, [facility] [address] [id number] [address] [place] [address], [place] [address] Apr, [facility] [address] [id number] [address] [place] [address], [place] [address] Apr, [facility] [address] [id number] [address] [place] [address], [place] [address] Apr, [facility] [address] [id number] [address] [place] [address], [place] [address] Apr, [facility] [address] [id number] [address] [place] [address], [place] [address] Apr, [facility] [address] [id number] [address] [place] [address], [place] [address] 24 Mar, 2013 [facility] [address] [id number] [address] [place] [address], [place] [address] 12 Mar, 2013 [facility] [address] [id number] [address] [place] [address], [place] [address] 09 Mar, 2013 [facility] [address] [id number] [address] [place] [address], [place] [address] 05 Mar, 2013 [facility] [address] [id number] [address] [place] [address], [place] [address] 05 Mar, 2013 [facility] [address] [id number] [address] [place] [address], [place] [address] 30 Feb, 2013 [facility] [address] [id number] [address] [place] [address], [place] [address] Feb, [facility] [address] [id number] [address] [place] [address], [place] [address] Feb, [facility] [address] [id number] [address] [place] [address], [place] [address] Feb, [facility] [address] [id number] [address] [place] [address], [place] [address] Jan, [facility] [address] [id number] [address] [place] [address], [place] [address] Jan, [facility] [address] [id number] [address] [place] [address], [place] [address] 16 Jan, 2013 [facility] [address] [id number] [address] [place] [address], [place] [address] Jan, [facility] [address] [id number] [address] [place] [address], [place] [address] Jan, [facility] [address] [id number] [address] [place] [address], [place] [address] Jan, [facility] [address] [id number] [address] [place] [address], [place] [address] Dec, [facility] [address] [id number] [address] [place] [address], [place] [address] Dec, [facility] [address] [id number] [address] [place] [address], [place] [address] Dec, [facility] [address] [id number] [address] [place] [address], [place] [address] 14 Dec, 2012 [facility] [address] [id number] [address] [place] [address], [place] [address] 13 Dec, 2012 [facility] [address] [id number] [address] [place] [address], [place] [address] 12 Dec, 2012 [facility] [address] [id number] [address] [place] [address], [place] [address] Dec, [facility] [address] [id number] [address] [place] [address], [place] [address] Dec, [facility] [address] [id number] [address] [place] [address], [place] [address] 05 Dec, 2012 [facility] [address] [id number] [address] [place] [address], [place] [address] Dec, [facility] [address] [id number] [address] [place] [address], [place] [address] November, [facility] [address] [id number] [address] [place] [address], [place] [address] November, [facility] [address] [id number] [address] [place] [address], [place] [address] November, [facility] [address] [id number] [address] [place] [address], [place] [address] November, [facility] [address] [id number] [address] [place] [address], [place] [address] November, [facility] [address] [id number] [address] [place] [address], [place] [address] Oct, [facility] [address] [id number] [address] [place] [address], [place] [address] Oct, [facility] [address] [id number] [address] [place] [address], [place] [address] Oct, [facility] [address] [id number] [address] [place] [address], [place] [address] Oct, [facility] [address] [id number] [address] [place] [address], [place] [address] Oct, [facility] [address] [address] [id number] [address] [place] [address], [place] [address] 21 Sep, 2012 [facility] [address] [id number] [address] [place] [address], [place] [address] 19 Sep, 2012 [facility] [address] [id number] [address] [place] [address], [place] [address] 18 Sep, 2012 [facility] [address] [id number] [address] [place] [address], [place] [address] 05 Sep, 2012 [facility] [address] [id number] [address] [place] [address], [place] [address] 26 Aug, 2012 [facility] [address] [id number] [address] [place] [address], [place] [address] 18 Aug, 2012 [facility] [address] [id number] [address] [place] [address], [place] [address] 18 Aug, 2012 [facility] [address] [id number] [address] [place] [address], [place] [address] 15 Aug, 2012 [facility] [address] [id number] [address] [place] [address], [place] [address] Jun, [facility] [address] [id number] [address] [place] [address], [place] [address] Jun, [facility] [address] [id number] [address] [place] [address], [place] [address] Jun, [facility] [address] [id number] [address] [place] [address], [place] [address] Jun, [facility] [address] [id number] [address] [place] [address], [place] [address] Jun, [facility] [address] [id number] [address] [place] [address], [place] [address] Jun, [facility] [address] [id number] [address] [place] [address], [place] [address] Jun, [facility] [address] [id number] [address] [place] [address] Jun, [facility] [address] [id number] [address] [place] [address], [place] [address] Jun, [facility] [address] [id number] [address] [place] [address] Jun, [facility] [address] [id number] [address] [place] [address], [place] [address] May, [facility] [address] [id number] [address] [place] [address] May, [facility] [address] [id number] [address] [place] [address], [place] [address] May, [facility] [address] [id number] [address] [place] [address], [place] [address] May, [facility] [address] [id number] [address] [place] [address], [place] [address] May, [facility] [address] [id number] [address] [place] [address], [place] [address] 16 May, 2012 [facility] [address] [id number] [address] [place] [address] 16 May, 2012 [facility] [address] [id number] [address] [place] [address] 14 May, 2012 [facility] [address] [id number] [address] [place] [address] 14 May, 2012 [facility] [address] [id number] [address] [place] [address] 30 Apr, 2012 [facility] [address] [id number] [address] [place] [address] 30 Apr, 2012 [facility] [address] [id number] [address] [place] [address], [place] [address] 17 Apr, 2012 [facility] [address] [id number] [address] [place] [address], [place] [address] 17 Apr, 2012 [facility] [address] [id number] [address] [place] [address], [place] [address] 09 Apr, 2012 [facility] [address] [id number] [address] [place] [address], [place] [address] 18 Mar, 2012 [facility] [address] [id number] [address] [place] [address], [place] [address] 17 Mar, 2012 [facility] [address] [id number] [address] [place] [address], [place] [address] 07 Mar, 2012 [facility] [address] [id number] [address] [place] [address], [place] [address] 27 Feb, 2012 [facility] [address] [id number] [address] [place] [address], [place] [address] 16 Feb, 2012 [facility] [address] [id number] [address] [place] [address], [place] [address] 15 Feb, 2012 [facility] [address] [id number] [address] [place] [address], [place] [address] 14 Feb, 2012 [facility] [address] [id number] [address] [place] [address], [place] [address] Jan, [facility] [address] [id number] [address] [place] [address], [place] [address] Jan, [facility] [address] [id number] [address] [place] [address], [place] [address] 24 Jan, 2012 [facility] [address] [id number] [address] [place] [address], [place] [address] Jan, [facility] [address] [id number] [address] [place] [address], [place] [address] 17 Jan, 2012 [facility] [address] [id number] [address] [place] [address], [place] [address] Jan, [facility] [address] [id number] [address] [place] [address], [place] [address] Dec, [facility] [address] [id number] [address] [place] [address], [place] [address] Dec, [facility] [address] [id number] [address] [place] [address], [place] [address] Dec, [facility] [address] [id number] [address] [place] [address], [place] [address] November, [facility] [address] [id number] [address] [place] [address], [place] [address] November, [facility] [address] [id number] [address] [place] [address], [place] [address] November, [facility] [address] [id number] [address] [place] [address], [place] [address] November, [facility] [address] [id number] [address] [place] [address], [place] [address] Oct, [facility] [address] [id number] [address] [place] [address], [place] [address] Oct, [facility] [address] [id number] [address] [place] [address], [place] [address] Oct, [facility] [address] [id number] [address] [place] [address], [place] [address] Sep, [facility] [address] [id number] [address] [place] [address], [place] [address] Sep, [facility] [address] [id number] [address] [place] [address], [place] [address] Aug, [facility] [address] [id number] [address] [place] [address], [place] [address] Aug, [facility] [address] [id number] [address] [place] [address], [place] [address] Aug, [facility] [address] [id number] [address] [place] [address], [place] [address] Aug, [facility] [address] [id number] [address] [place] [address], [place] [address] Jul, [facility] [address] [id number] [address] [place] [address], [place] [address] 30 Jul, 2011 [facility] [address] [id number] [address] [place] [address], [place] [address] Jul, [facility] [address] [id number] [address] [place] [address], [place] [address] Jul, [facility] [address] [id number] [address] [place] [address], [place] [address] Jul, [facility] [address] [id number] [address] [place] [address], [place] [address] Jul, [facility] [address] [id number] [address] [place] [address], [place] [address] Jul, [facility] [address] [id number] [address] [place] [address], [place] [address] Jul, [facility] [address] [id number] [address] [place] [address], [place] [address] Jun, [facility] [address] [id number] [address] [place] [address], [place] [address] Jun, [facility] [address] [id number] [address] [place] [address], [place] [address] 15 Jun, 2011 [facility] [address] [id number] [address] [place] [address], [place] [address] 08 Jun, 2011 [facility] [address] [id number] [address] [place] [address], [place] [address] 07 Jun, 2011 [facility] [address] [id number] [address] [place] [address], [place] [address] 28 May, 2011 [facility] [address] [id number] [address] [place] [address], [place] [address] May, [facility] [address] [id number] [address] [place] [address], [place] [address] 17 May, 2011 [facility] [address] [id number] [address] [place] [address], [place] [address] 15 May, 2011 [facility] [address] [id number] [address] [place] [address], [place] [address] 08 May, 2011 [facility] [address] [id number] [address] [place] [address], [place] [address] 08 May, 2011 [facility] [address] [id number] [address] [place] [address], [place] [address] Apr, [facility] [address] [id number] [address] [place] [address], [place] [address] Apr, [facility] [address] [id number] [address] [place] [address], [place] [address] Apr, [facility] [address] [id number] [address] [place] [address], [place] [address] 17 Feb, 2011 [facility] [address] [id number] [address] [place] [address], [place] [address] Feb, [facility] [address] [id number] [address] [place] [address], [place] [address] Oct, [facility] [address] [id number] [address] [place] [address], [place] [address] Jul, [facility] [address] [id number] [address] [place] [address] Jul, [facility] [address] [id number] [address] [place] [address] Jun, [facility] [address] [id number] [address] [place] [address] May, [facility] [address] [id number] [address] [place] [address], [place] [address] May, [facility] [address] [id number] [address] [place] [address], [place] [address] May, [facility] [address] [id number] [address] [place] [address], [place] [address] Apr, [facility] [address] [id number] [address] [place] [address] Jan, [facility] [address] [facility] [id number] [address] [place] [address] November, IMMUNIZATIONS No Known Immunizations SOCIAL HISTORY Never Assessed REASON FOR VISIT PLAN OF CARE VITAL SIGNS Blood pressure systolic 116 mmHg 2014-09-22 Blood pressure diastolic 70 mmHg 2014-09-22 MEDICATIONS Unknown Medications RESULTS No Results PROCEDURES [...]
--- OUTSIDE RECORDS SUMMARY | 2020-01-31 09:47 | XMS REPORT ---
Author Author Ivet Knott Doctor Organization [facility] Address Unknown Phone Unavailable Care Team Providers Care High Frequency Mill Operator Name Role Phone Migration, Doctor Unavailable Unavailable PROBLEMS Type Condition ICD9-CM Code TIC74-LK Code Onset Dates Condition S tatus SNOMED Code Problem Schizo affective schizophrenia F25.0 Active 033794683 Problem Essential hypertension I10 Active 43972882 Problem GERD (gastroesophageal reflux disease) K21.9 Active 208453923 Problem Depression F32.9 Active 06034482 Problem Anxiety F41.9 Active 32805722 Problem Hypothyroidism E03.9 Active 78669 008 Problem Bilateral carotid artery disease I77.9 Active 511057488 Problem Stage 3 chronic kidney disease N18.3 Active 527517048 Problem Fibromyalgia M79.7 Active 1048024 05 Problem Idiopathic peripheral neuropathy G60.9 Active 61423799 Problem Low back pain, unspecified b ack pain laterality, unspecified chronicity, with sciatica presence unspecified M54.5 Active 393568140 Problem Acquired hypothyroidism E03.9 Active 509858370 Problem Osteoarthritis M19.90 Active 31295 5006 Problem Vitamin D deficiency E55.9 Active 57391749 Problem Iron deficiency anemia, unspecified iron deficiency an emia type D50.9 Active 72104398 Problem Secondary hyperparathyroidism, not elsewhere classified E21.1 Active 22119336 Problem Sensory loss R20.0 Active 8788580 9 ALLERGIES No Information ENCOUNTERS Encounter Location Date Diagnosis [facility] [address] [id number] [address] [place] [address] Jan, Osteoarthritis M19.90 [facility] [address] [facility] [id number] [address] [place] [address] Jan, Osteoarthritis M19.90 [facility] [address] [facility] [id number] [address] [place] [address] Dec, Acquired hypothyroidism E03. 9 [facility] [address] [id number] [address] [place] [address] Dec, Fibromyalgia M79.7 ; Hypothy roidism E03.9 ; Essential hypertension I10 and Sensory loss R20.[address] [address] November, Osteoarthritis M19.90 [facility] [address] [id number] [address] [place] [address] Oct, Osteoarthritis M19.90 [facility] [address] [facility] [id number] [address] [place] [address] Oct, Sore throat J02.9 and Acute nasopharyngitis J00 [facility] [address] [id number] [address] [place] [address] Sep, Osteoarthritis M19.90 [facility] [address] [id number] [address] [place] [address] Sep, Acute non-recurrent maxillar y sinusitis J01.00 [facility] [address] [id number] [address] [place] [address] Aug, Acute non-recurrent pansinus itis J01.40 [facility] [address] [id number] [address] [place] [address] Jul, Osteoarthritis M19.90 [facility] [address] [id number] [address] [place] [address] Jul, [facility] [address] [id number] [address] [place] [address] Apr, Osteoarthritis M19.90 [facility] [address] [id number] [address] [place] [address] Apr, Fibromyalgia M79.7 ; Essenti al hypertension I10 ; Encounter for immunization Z23 ; Stage 3 chronic kidney disease N18.3 and Depression F32.9 [facility] [address] [id number] [address] [place] [address] Dec, Fibromyalgia M79.7 ; Osteoar thritis M19.90 and Encounter for medication management Z79.899 [facility] [address] [id number] [address] [place] [address] November, Nausea and vomiting, intract ability of vomiting not specified, unspecified vomiting type R11.2 and Dizziness R42 [facility] [address] [place] [id number] [address] [place] [address] November, Fibromyalgia M79.7 [facility] [address] [address] November, Medicare annual wellness vis it, initial Z00.00 ; Anxiety F41.9 ; Depression F32.9 ; Stage 3 chronic kidney disease N18.3 ; Fibromyalgia M79.7 ; Essential hypertension I10 ; Secondary hyperparathyroidism, not elsewhere classified E21.1 ; Osteoarthritis M19.90 ; Hypothyroidism E03.9 and Encounter for immunization Z23 [facility] [address] [place] [id number] [address] [place] [address] Oct, [facility] [address] [address] Oct, Sebaceous cyst L72.3 [place] [address] [address] Sep, Low back pain, unspecified b ack pain laterality, unspecified chronicity, with sciatica presence unspecified M54.5 and Secondary hyperparathyroidism, not elsewhere classified E21.1 [facility] [address] [place] [id number] [address] [place] [address] Sep, Fibromyalgia M79.7 [place] [id number] [place] [id number] [address] [place] [address] Sep, Fibromyalgia M79.7 ; Plantar fasciitis, bilateral M72.2 ; Essential hypertension I10 ; Depression F32.9 and Epidermoid cyst L72.0 [facility] [address] [place] [id number] [address] [place] [address] Jul, [place] [address] [address] Jul, Fibromyalgia M79.7 ; Iron de ficiency anemia, unspecified iron deficiency anemia type D50.9 and Acute nasopharyngitis J00 [facility] [address] [address] Jun, Sore throat J02.9 and Acute serous otitis media of left ear, recurrence not specified H65.02 [facility] [address] [address] Jun, Hypothyroidism E03.9 [place] [address] [address] Jun, [place] [address] [address] Jun, Hypothyroidism E03.9 ; Essen tial hypertension I10 and Osteoarthritis M19.90 [place] [address] [address] May, [place] [address] [address] May, [place] [address] [address] Feb, [place] [address] [address] Feb, Leonela-menopausal N95.1 and To bacco use Z72.0 [place] [address] [address] Jan, [place] [address] [address] Jan, Osteoarthritis M19.90 ; Bila teral carotid artery disease I77.9 ; Raynauds syndrome I73.00 ; Essential hypertension I10 ; Allergic rhinitis J30.9 ; Stage 3 chronic kidney disease N18.3 ; Fibromyalgia M79.7 ; Hypothyroidism E03.9 ; GERD (gastroesophageal reflux disease) K21.9 and Vitamin D deficiency E55.9 [facility] [address] [id number] [address] [place] [address] Dec, Raynauds syndrome I73.00 ; P lantar fascial fibromatosis M72.2 ; Osteoarthritis M19.90 and Fibromyalgia M79.7 [facility] [address] [place] [id number] [address] [place] [address] Dec, [facility] [address] [place] [id number] [address] [place] [address] Dec, [facility] [address] [place] [id number] [place] [address] Oct, Function kidney decreased N2 8.9 [facility] [address] [place] [id number] Oct, Dental examination Z01.20 [place] [address] [address] 18 Oct, 2016 Essential hypertension I10 a nd Function kidney decreased N28.9 [facility] [address] [place] [address] [id number] Oct, Dental examination Z01.20 [facility] [address] [place] [id number] [address] [place] [address] Oct, [place] [address] [place] [id number] [place] [address] Sep, Other specified disorders in volving the immune mechanism D89.89 and Schizo affective schizophrenia F25.0 [facility] [address] [place] [id number] [address] [place] [address] Sep, Schizo affective schizophren ia F25.0 [facility] [address] [place] [id number] [address] [place] [address] Sep, Eustachian tube dysfunction, bilateral H69.83 [facility] [address] [place] [id number] [address] [place] [address] Sep, [facility] [address] [address] 14 Sep, 2016 [facility] [address] [address] 14 Sep, 2016 [facility] [address] [address] 13 Sep, 2016 Eustachian tube dysfunction, bilateral H69.83 [place] [address] [address] 09 Sep, 2016 Allergic rhinitis J30.9 ; Es sential hypertension I10 ; Hypothyroidism E03.9 and Schizo affective schizophrenia F25.0 [place] [address] [address] Jul, Eustachian tube dysfunction, bilateral H69.83 and Visit for TB skin test Z11.1 [facility] [address] [address] Jul, Subacute pansinusitis J01.[address] [address] Jun, Schizo affective schizophren ia F25.0 ; Depression F32.9 ; Allergic rhinitis J30.9 ; Raynauds syndrome I73.00 ; Essential hypertension I10 ; Slow transit constipation K59.01 ; GERD (gastroesophageal reflux disease) K21.9 ; Hypothyroidism E03.9 ; Nicotine addiction F17.200 ; Other viral agents as the cause of diseases classified elsewhere B97.89 ; Acute upper respiratory infection, unspecified J06.9 and Osteoarthritis M19.[address] [address] Jun, Allergic rhinitis J30.9 and GERD (gastroesophageal reflux disease) K21.9 [facility] [address] [address] May, [place] [address] [address] Mar, Schizo affective schizophren ia F25.0 [facility] [address] [facility] [id number] [address] [place] [address] Mar, Schizo affective schizophren ia F25.0 [facility] [address] [facility] [id number] [address] [place] [address] 15 Mar, 2016 Schizo affective schizophren ia F25.0 [facility] [address] [place] [id number] [address] [place] [address] Mar, Acute non-recurrent maxillar y sinusitis J01.00 [place] [address] [place] [id number] [address] [place] [address] Feb, Schizo affective schizophren ia F25.0 [facility] [address] [place] [id number] [address] [place] [address] Feb, Contact dermatitis and eczem a L25.9 [facility] [address] [place] [id number] [address] [place] [address] Jan, [facility] [address] [place] [id number] [address] [place] [address] Jan, Schizo affective schizophren ia F25.0 ; Slow transit constipation K59.01 ; Essential hypertension I10 ; GERD (gastroesophageal reflux disease) K21.9 ; Hypothyroidism E03.9 ; Osteoarthritis M19.90 ; Low back pain, unspecified back pain laterality, unspecified chronicity, with sciatica presence unspecified M54.5 and Bilateral carotid artery disease I77.9 [facility] [address] [place] [id number] [address] [place] [address] Oct, [facility] [address] [place] [id number] [address] [place] [address] Sep, Hypothyroid E03.9 [facility] [address] [facility] [id number] [address] [place] [address] Sep, Schizo affective schizophren ia F25.0 ; Depression F32.9 ; Anxiety F41.9 ; Allergic rhinitis J30.9 ; Raynauds syndrome I73.00 ; Insomnia G47.00 ; Essential hypertension I10 ; GERD (gastroesophageal reflux disease) K21.9 ; Hypothyroidism E03.9 and Vitamin D deficiency E55.9 [facility] [address] [place] [id number] [address] [place] [address] Sep, [facility] [address] [address] Sep, [place] [address] [address] Aug, Allergic rhinitis J30.9 ; De pression F32.9 ; Anxiety F41.9 ; Raynauds syndrome I73.00 ; Insomnia G47.00 and GERD (gastroesophageal reflux disease) K21.9 [place] [address] [address] Aug, MONICA (secretory otitis media) H65.90 and Raynauds syndrome I73.00 [facility] [address] [place] [id number] [address] [place] [address] Jul, Acute otitis externa of both ears, unspecified type H60.503 [place] [address] [place] [id number] [address] [place] [address] Jun, [place] [address] [address] Jun, Essential hypertension I10 ; Allergic rhinitis J30.9 ; Hypothyroidism E03.9 and Osteoarthritis M19.90 [place] [address] [place] [id number] [address] [place] [address] Jun, Routine adult health mainten ance Z00.00 ; Hypothyroidism E03.9 ; Essential hypertension I10 ; Insomnia G47.00 ; Nicotine addiction F17.200 ; Raynauds syndrome I73.00 ; GERD (gastroesophageal reflux disease) K21.9 ; Allergic rhinitis J30.9 ; Anxiety F41.9 ; Depression F32.9 and Schizo affective schizophrenia F25.0 [facility] [address] [id number] [address] [place] [address] May, Upper respiratory tract infe ction, unspecified type J06.9 [facility] [address] [id number] [address] [place] [address] Mar, [facility] [address] [id number] [id number] Mar, [facility] [address] [id number] [address] [place] [address] Mar, [facility] [address] [id number] [address] [place] [address] Mar, [facility] [address] [facility] [id number] [address] [place] [address] Feb, Jaw pain 784.92 and Environm ental and seasonal allergies 477.8 [facility] [address] [id number] [address] [place] [address] Feb, [facility] [address] [facility] [id number] [address] [place] [address] Oct, [facility] [address] [facility] [id number] [address] [place] [address] Oct, [facility] [address] [facility] [id number] [address] [place] [address] Oct, [facility] [address] [id number] [address] [place] [address] Oct, [facility] [address] [facility] [id number] [address] [place] [address] Sep, [facility] [address] [id number] [address] [place] [address] Sep, [facility] [address] [id number] [address] [place] [address] Jul, [facility] [address] [id number] [address] [place] [address] Jul, [facility] [address] [id number] [address] [place] [address], [place] [address] Jul, [facility] [address] [id number] [address] [place] [address], [place] [address] Jul, [facility] [address] [id number] [address] [place] [address], [place] [address] Jul, [facility] [address] [id number] [address] [place] [address], [place] [address] Jul, [facility] [address] [id number] [address] [place] [address], [place] [address] Jul, [facility] [address] [id number] [address] [place] [address], [place] [address] Jun, [facility] [address] [id number] [address] [place] [address], [place] [address] Jun, [facility] [address] [id number] [address] [place] [address], [place] [address] 22 Jun, 2014 [facility] [address] [id number] [address] [place] [address], [place] [address] 18 Jun, 2014 [facility] [address] [id number] [address] [place] [address], [place] [address] Jun, [facility] [address] [id number] [address] [place] [address], [place] [address] 17 Jun, 2014 [facility] [address] [id number] [address] [place] [address], [place] [address] 16 Jun, 2014 [facility] [address] [id number] [address] [place] [address], [place] [address] 16 Jun, 2014 [facility] [address] [id number] [address] [place] [address], [place] [address] 30 Apr, 2014 [facility] [address] [id number] [address] [place] [address], [place] [address] 30 Apr, 2014 [facility] [address] [id number] [facility] [place] [address] 17 Mar, 2014 [facility] [address] [id number] [address] [place] [address], [place] [address] 17 Mar, 2014 [facility] [address] [id number] [address] [place] [address], [place] [address] Mar, [facility] [address] [id number] [address] [place] [address], [place] [address] Mar, [facility] [address] [id number] [address] [place] [address], [place] [address] Jan, [facility] [address] [id number] [address] [place] [address], [place] [address] Jan, [facility] [address] [id number] [address] [place] [address], [place] [address] Oct, [facility] [address] [id number] [address] [place] [address], [place] [address] Oct, [facility] [address] [id number] [address] [place] [address], [place] [address] Sep, [facility] [address] [id number] [address] [place] [address], [place] [address] Sep, [facility] [address] [id number] [address] [place] [address], [place] [address] Sep, [facility] [address] [id number] [address] [place] [address], [place] [address] Sep, [facility] [address] [id number] [address] [place] [address], [place] [address] Sep, [facility] [address] [id number] [address] [place] [address], [place] [address] Sep, [facility] [address] [id number] [address] [place] [address], [place] [address] Aug, [facility] [address] [id number] [address] [place] [address], [place] [address] Aug, [facility] [address] [id number] [address] [place] [address], [place] [address] Jul, [facility] [address] [id number] [address] [place] [address], [place] [address] Jul, [facility] [address] [id number] [address] [place] [address], [place] [address] Jul, [facility] [address] [id number] [address] [place] [address], [place] [address] Jul, [facility] [address] [id number] [address] [place] [address], [place] [address] Jun, [facility] [address] [id number] [address] [place] [address], [place] [address] Jun, [facility] [address] [id number] [address] [place] [address], [place] [address] May, [facility] [address] [id number] [address] [place] [address] May, [facility] [address] [id number] [address] [place] [address], [place] [address] Apr, [facility] [address] [id number] [address] [place] [address] Apr, [facility] [address] [id number] [address] [place] [address] Apr, [facility] [address] [id number] [address] [place] [address] Apr, [facility] [address] [id number] [address] [place] [address] Apr, [facility] [address] [id number] [address] [place] [address] Apr, [facility] [address] [id number] [address] [place] [address] Mar, [facility] [address] [id number] [address] [place] [address] 12 Mar, 2013 [facility] [address] [id number] [address] [place] [address], [place] [address] 09 Mar, 2013 [facility] [address] [id number] [address] [place] [address], [place] [address] 05 Mar, 2013 [facility] [address] [id number] [address] [place] [address], [place] [address] 05 Mar, 2013 [facility] [address] [id number] [address] [place] [address], [place] [address] 30 Feb, 2013 [facility] [address] [id number] [address] [place] [address], [place] [address] Feb, [facility] [address] [id number] [address] [place] [address], [place] [address] Feb, [facility] [address] [id number] [address] [place] [address], [place] [address] Feb, [facility] [address] [id number] [address] [place] [address], [place] [address] Jan, [facility] [address] [id number] [address] [place] [address], [place] [address] Jan, [facility] [address] [id number] [address] [place] [address], [place] [id number] 16 Jan, 2013 [facility] [address] [id number] [address] [place] [address], [place] [address] Jan, [facility] [address] [id number] [address] [place] [address], [place] [address] Jan, [facility] [address] [id number] [address] [place] [address], [place] [address] Jan, [facility] [address] [id number] [address] [place] [address], [place] [address] Dec, [facility] [address] [id number] [address] [place] [address], [place] [address] Dec, [facility] [address] [id number] [address] [place] [address], [place] [id number] 19 Dec, 2012 [facility] [address] [id number] [address] [place] [address], [place] [address] 14 Dec, 2012 [facility] [address] [id number] [address] [place] [address], [place] [address] 13 Dec, 2012 [facility] [address] [id number] [address] [place] [address], [place] [id number] 12 Dec, 2012 [facility] [address] [id number] [address] [place] [address], [place] [address] Dec, [facility] [address] [id number] [address] [place] [address], [place] [address] 07 Dec, 2012 [facility] [address] [id number] [address] [place] [address], [place] [address] 05 Dec, 2012 [facility] [address] [id number] [address] [place] [address], [place] [address] Dec, [facility] [address] [id number] [address] [place] [address], [place] [id number] November, [facility] [address] [id number] [address] [place] [address], [place] [address] November, [facility] [address] [id number] [place] [address], [place] [address] November, [facility] [address] [id number] [address] [place] [address], [place] [address] November, [facility] [address] [id number] [address] [place] [address], [place] [address] November, [facility] [address] [id number] [address] [place] [address], [place] [address] 30 Oct, 2012 [facility] [address] [id number] [address] [place] [address], [place] [address] Oct, [facility] [address] [id number] [address] [place] [address], [place] [address] Oct, [facility] [address] [id number] [address] [place] [address], [place] [address] Oct, [facility] [address] [id number] [address] [place] [address], [place] [address] Oct, [facility] [address] [id number] [address] [place] [address], [place] [address] Sep, [facility] [address] [id number] [address] [place] [address], [place] [address] Sep, [facility] [address] [id number] [address] [place] [address], [place] [address] Sep, [facility] [address] [id number] [address] [place] [address], [place] [address] 05 Sep, 2012 [facility] [address] [id number] [address] [place] [address], [place] [address] Aug, [facility] [address] [id number] [address] [place] [address], [place] [address] Aug, [facility] [address] [id number] [address] [place] [address], [place] [address] Aug, [facility] [address] [id number] [address] [place] [address], [place] [address] Aug, [facility] [address] [id number] [address] [place] [address], [place] [address] Jun, [facility] [address] [id number] [address] [place] [address], [place] [address] Jun, [facility] [address] [id number] [address] [place] [address], [place] [address] Jun, [facility] [address] [id number] [address] [place] [address], [place] [address] Jun, [facility] [address] [id number] [address] [place] [address], [place] [address] Jun, [facility] [address] [id number] [address] [place] [address], [place] [address] 06 Jun, 2012 [facility] [address] [id number] [address] [place] [address], [place] [address] Jun, [facility] [address] [id number] [address] [place] [address], [place] [address] Jun, [facility] [address] [id number] [address] [place] [address], [place] [address] Jun, [facility] [address] [id number] [address] [place] [address], [place] [address] Jun, [facility] [address] [id number] [address] [place] [address], [place] [address] 28 May, 2012 [facility] [address] [id number] [address] [place] [address], [place] [address] 27 May, 2012 [facility] [address] [id number] [address] [place] [address], [place] [address] 27 May, 2012 [facility] [address] [id number] [address] [place] [address], [place] [address] 26 May, 2012 [facility] [address] [id number] [address] [place] [address], [place] [address] 26 May, 2012 [facility] [address] [id number] [address] [place] [address], [place] [address] 16 May, 2012 [facility] [address] [id number] [address] [place] [address], [place] [address] 16 May, 2012 [facility] [address] [id number] [address] [place] [address], [place] [address] 14 May, 2012 [facility] [address] [id number] [address] [place] [address], [place] [address] 14 May, 2012 [facility] [address] [id number] [address] [place] [address], [place] [address] 30 Apr, 2012 [facility] [address] [id number] [address] [place] [address], [place] [address] 30 Apr, 2012 [facility] [address] [id number] [address] [place] [address], [place] [address] Apr, [facility] [address] [id number] [address] [place] [address], [place] [address] Apr, [facility] [address] [id number] [address] [place] [address], [place] [address] Apr, [facility] [address] [id number] [address] [place] [address], [place] [address] 18 Mar, 2012 [facility] [address] [id number] [address] [place] [address], [place] [address] 17 Mar, 2012 [facility] [address] [id number] [address] [place] [address], [place] [address] 07 Mar, 2012 [facility] [address] [id number] [address] [place] [address], [place] [address] 27 Feb, 2012 [facility] [address] [id number] [address] [place] [address], [place] [address] 16 Feb, 2012 [facility] [address] [id number] [address] [place] [address], [place] [address] 15 Feb, 2012 [facility] [address] [id number] [address] [place] [address], [place] [address] 14 Feb, 2012 [facility] [address] [id number] [address] [place] [address], [place] [address] Jan, [facility] [address] [id number] [address] [place] [address], [place] [address] Jan, [facility] [address] [id number] [address] [place] [address], [place] [address] Jan, [facility] [address] [id number] [address] [place] [address], [place] [address] Jan, [facility] [address] [id number] [address] [place] [address], [place] [address] Jan, [facility] [address] [id number] [address] [place] [id number] 10 Jan, 2012 [facility] [address] [id number] [address] [place] [address], [place] [address] Dec, [facility] [address] [id number] [address] [place] [address], [place] [address] 14 Dec, 2011 [facility] [address] [id number] [address] [place] [address], [place] [address] Dec, [facility] [address] [id number] [address] [place] [address], [place] [address] November, [facility] [address] [id number] [address] [place] [address], [place] [address] November, [facility] [address] [id number] [address] [place] [address], [place] [address] November, [facility] [address] [id number] [address] [place] [address], [place] [address] November, [facility] [address] [id number] [address] [place] [address], [place] [address] Oct, [facility] [address] [id number] [address] [place] [address], [place] [address] Oct, [facility] [address] [id number] [address] [place] [address], [place] [address] Oct, [facility] [address] [id number] [address] [place] [address], [place] [address] Sep, [facility] [address] [id number] [address] [place] [address], [place] [address] Sep, [facility] [address] [id number] [address] [place] [address], [place] [address] Aug, [facility] [address] [id number] [address] [place] [address], [place] [address] Aug, [facility] [address] [id number] [address] [place] [address], [place] [address] Aug, [facility] [address] [id number] [address] [place] [address], [place] [address] Aug, [facility] [address] [id number] [address] [place] [address], [place] [address] Jul, [facility] [address] [id number] [address] [place] [address], [place] [address] Jul, [facility] [address] [id number] [address] [place] [address], [place] [address] Jul, [facility] [address] [id number] [address] [place] [address], [place] [address] Jul, [facility] [address] [id number] [address] [place] [address], [place] [address] Jul, [facility] [address] [id number] [address] [place] [address], [place] [address] Jul, [facility] [address] [id number] [address] [place] [address], [place] [address] Jul, [facility] [address] [id number] [address] [place] [address], [place] [address] Jul, [facility] [address] [id number] [address] [place] [address], [place] [address] Jun, [facility] [address] [id number] [address] [place] [address], [place] [address] Jun, [facility] [address] [id number] [address] [place] [address], [place] [address] Jun, [facility] [address] [id number] [address] [place] [address], [place] [address] Jun, [facility] [address] [id number] [address] [place] [address], [place] [address] Jun, [facility] [address] [id number] [address] [place] [address], [place] [address] May, [facility] [address] [id number] [address] [place] [address], [place] [address] May, [facility] [address] [id number] [address] [place] [address], [place] [address] 17 May, 2011 [facility] [address] [id number] [address] [place] [address], [place] [address] 15 May, 2011 [facility] [address] [id number] [address] [place] [address], [place] [address] May, [facility] [address] [id number] [address] [place] [id number] May, [facility] [address] [id number] [address] [place] [address], [place] [address] Apr, [facility] [address] [id number] [address] [place] [address], [place] [address] Apr, [facility] [address] [id number] [address] [place] [address], [place] [address] Apr, [facility] [address] [id number] [address] [place] [address], [place] [address] Feb, [facility] [address] [id number] [address] [place] [address], [place] [address] Feb, [facility] [address] [id number] [address] [place] [address], [place] [address] Oct, [facility] [address] [id number] [address] [place] [address], [place] [address] Jul, [facility] [address] [id number] [address] [place] [address], [place] [address] Jul, [facility] [address] [id number] [address] [place] [address], [place] [address] Jun, [facility] [address] [id number] [address] [place] [address], [place] [address] May, [facility] [address] [id number] [address] [place] [address], [place] [address] May, [facility] [address] [id number] [address] [place] [id number] May, [facility] [address] [facility] [id number] [address] [place] [address] Apr, [facility] [address] [facility] [id number] [address] [place] [id number] Jan, [facility] [address] [facility] [id number] [address] [place] [id number] November, IMMUNIZATIONS No Known Immunizations SOCIAL HISTORY Never Assessed REASON FOR VISIT PLAN OF CARE VITAL SIGNS Weight 215.31 lbs 2011-10-14 Heart Rate 76 bpm 2011-10-14 Respiratory Rate 20 2011-10-14 Blood pressure systolic 118 mmHg 2011-10-14 Blood pressure diastolic 84 mmHg 2011-10-14 MEDICATIONS Unknown Medications RESULTS No Results PROCEDURES [...]
--- OUTSIDE RECORDS SUMMARY | 2020-01-31 09:47 | XMS REPORT ---
Author Author Ivet Knott Doctor Organization [facility] Address Unknown Phone Unavailable Care Team Providers Care Jack Prizer Name Role Phone Migration, Doctor Unavailable Unavailable PROBLEMS Type Condition ICD9-CM Code [id number] Code Onset Dates Condition S tatus SNOMED Code Problem Depression F32.9 Active 31519000 Problem Hypothyroidism E03.9 Active 26375 008 Problem GERD (gastroesophageal reflux disease) K21.9 Active 464101578 Problem Schizo affective schizophrenia F25.0 Active 555024933 Problem Osteoarthritis M19.90 Active 84859 5006 Problem Low back pain, unspecified b ack pain laterality, unspecified chronicity, with sciatica presence unspecified M54.5 Active 115601721 Problem Iron deficiency anemia, unspecified iron deficiency an emia type D50.9 Active 50938584 Problem Essential hypertension I10 Active 96096237 Problem Secondary hyperparathyroidism, not elsewhere classified E21.1 Active 87974532 Problem Anxiety F41.9 Active 41329383 Problem Bilateral carotid artery disease I77.9 Active 130179955 Problem Stage 3 chronic kidney disease N18.3 Active 311642095 Problem Fibromyalgia M79.7 Active 9756618 05 Problem Vitamin D deficiency E55.9 Active 99039157 ALLERGIES No Information ENCOUNTERS Encounter Location Date Diagnosis [facility] [address] [place] [address] Dec, [facility] [address] [id number] [address] [place] [address] Oct, Osteoarthritis M19.90 [facility] [address] [id number] [address] [place] [address] Oct, Sore throat J02.9 and Acute nasopharyngitis J00 [facility] [address] [id number] [address] [place] [address] Sep, Osteoarthritis M19.90 [facility] [id number] [place] [address] 14 Sep, 2018 Acute non-recurrent maxillar y sinusitis J01.00 [facility] [address] [address] 18 Aug, 2018 Acute non-recurrent pansinus itis J01.40 [facility] [address] [address] Jul, Osteoarthritis M19.90 [facility] [address] [address] Jul, [place] [address] [address] Apr, Osteoarthritis M19.90 [place] [address] [address] Apr, Fibromyalgia M79.7 ; Essenti al hypertension I10 ; Encounter for immunization Z23 ; Stage 3 chronic kidney disease N18.3 and Depression F32.9 [facility] [address] [address] Dec, Fibromyalgia M79.7 ; Osteoar thritis M19.90 and Encounter for medication management Z79.899 [facility] [address] [address] November, Nausea and vomiting, intract ability of vomiting not specified, unspecified vomiting type R11.2 and Dizziness R42 [facility] [id number] [place] [address] November, Fibromyalgia M79.7 [place] [address] [address] November, Medicare annual wellness vis it, initial Z00.00 ; Anxiety F41.9 ; Depression F32.9 ; Stage 3 chronic kidney disease N18.3 ; Fibromyalgia M79.7 ; Essential hypertension I10 ; Secondary hyperparathyroidism, not elsewhere classified E21.1 ; Osteoarthritis M19.90 ; Hypothyroidism E03.9 and Encounter for immunization Z23 [facility] [id number] [place] [address] Oct, [facility] [address] [address] Oct, Sebaceous cyst L72.3 [facility] [address] [address] Sep, Low back pain, unspecified b ack pain laterality, unspecified chronicity, with sciatica presence unspecified M54.5 and Secondary hyperparathyroidism, not elsewhere classified E21.1 [place] [address] [address] Sep, Fibromyalgia M79.7 [place] [address] [address] Sep, Fibromyalgia M79.7 ; Plantar fasciitis, bilateral M72.2 ; Essential hypertension I10 ; Depression F32.9 and Epidermoid cyst L72.0 [place] [address] [address] Jul, [place] [address] [address] Jul, Fibromyalgia M79.7 ; Iron de ficiency anemia, unspecified iron deficiency anemia type D50.9 and Acute nasopharyngitis J00 [facility] [address] [address] Jun, Sore throat J02.9 and Acute serous otitis media of left ear, recurrence not specified H65.02 [facility] [address] [address] Jun, Hypothyroidism E03.9 [facility] [id number] [place] [address] Jun, [place] [address] [address] Jun, Hypothyroidism E03.9 ; Essen tial hypertension I10 and Osteoarthritis M19.90 [facility] [address] [address] May, [facility] [address] [place] [address] May, [facility] [address] [address] Feb, [facility] [address] [address] Feb, Leonela-menopausal N95.1 and To bacco use Z72.0 [place] [address] [address] Jan, [place] [address] [address] Jan, Osteoarthritis M19.90 ; Bila teral carotid artery disease I77.9 ; Raynauds syndrome I73.00 ; Essential hypertension I10 ; Allergic rhinitis J30.9 ; Stage 3 chronic kidney disease N18.3 ; Fibromyalgia M79.7 ; Hypothyroidism E03.9 ; GERD (gastroesophageal reflux disease) K21.9 and Vitamin D deficiency E55.9 [facility] [address] [place] [address] Dec, Raynauds syndrome I73.00 ; P lantar fascial fibromatosis M72.2 ; Osteoarthritis M19.90 and Fibromyalgia M79.7 [facility] [address] [place] [address] Dec, [place] [address] [address] Dec, [facility] [id number] [place] [address] Oct, Function kidney decreased N2 8.9 [facility] [address] [place] [address] [id number] [place] [id number] Oct, Dental examination Z01.20 [facility] [address] [id number] [address] [place] [address] 18 Oct, 2016 Essential hypertension I10 a nd Function kidney decreased N28.9 [facility] [address] [id number] [address] [place] [id number] 04 Oct, 2016 Dental examination Z01.20 [facility] [address] [id number] [address] [place] [address] 03 Oct, 2016 [facility] [address] [id number] [address] [place] [address] 24 Sep, 2016 Other specified disorders in volving the immune mechanism D89.89 and Schizo affective schizophrenia F25.0 [facility] [address] [id number] [address] [place] [address] Sep, Schizo affective schizophren ia F25.0 [facility] [address] [id number] [address] [place] [address] 16 Sep, 2016 Eustachian tube dysfunction, bilateral H69.83 [facility] [address] [id number] [address] [place] [address] 15 Sep, 2016 [facility] [address] [id number] [address] [place] [address] 14 Sep, 2016 [facility] [address] [id number] [address] [place] [address] 14 Sep, 2016 [facility] [address] [id number] [address] [place] [address] 13 Sep, 2016 Eustachian tube dysfunction, bilateral H69.83 [facility] [address] [facility] [id number] [address] [place] [address] 09 Sep, 2016 Allergic rhinitis J30.9 ; Es sential hypertension I10 ; Hypothyroidism E03.9 and Schizo affective schizophrenia F25.0 [facility] [address] [id number] [address] [place] [address] 23 Homar, 2017 Eustachian tube dysfunction, bilateral H69.83 and Visit for TB skin test Z11.1 [facility] [address] [facility] [id number] [address] [place] [address] Jul, Subacute pansinusitis J01.40 [facility] [address] [id number] [address] [place] [address] Jun, Schizo affective schizophren ia F25.0 ; Depression F32.9 ; Allergic rhinitis J30.9 ; Raynauds syndrome I73.00 ; Essential hypertension I10 ; Slow transit constipation K59.01 ; GERD (gastroesophageal reflux disease) K21.9 ; Hypothyroidism E03.9 ; Nicotine addiction F17.200 ; Other viral agents as the cause of diseases classified elsewhere B97.89 ; Acute upper respiratory infection, unspecified J06.9 and Osteoarthritis M19.90 [facility] [address] [address] Jun, Allergic rhinitis J30.9 and GERD (gastroesophageal reflux disease) K21.9 [facility] [address] [place] [address] May, [facility] [address] [address] Mar, Schizo affective schizophren ia F25.0 [facility] [id number] [place] [address] Mar, Schizo affective schizophren ia F25.0 [facility] [address] [place] [address] 15 Mar, 2016 Schizo affective schizophren ia F25.0 [place] [address] [place] [id number] [address] [place] [address] 06 Mar, 2016 Acute non-recurrent maxillar y sinusitis J01.00 [facility] [address] [place] [address] [id number] [address] [place] [address] Feb, Schizo affective schizophren ia F25.0 [facility] [address] [address] Feb, Contact dermatitis and eczem a L25.9 [place] [address] [address] Jan, [place] [address] [address] Jan, Schizo affective schizophren ia F25.0 ; Slow transit constipation K59.01 ; Essential hypertension I10 ; GERD (gastroesophageal reflux disease) K21.9 ; Hypothyroidism E03.9 ; Osteoarthritis M19.90 ; Low back pain, unspecified back pain laterality, unspecified chronicity, with sciatica presence unspecified M54.5 and Bilateral carotid artery disease I77.9 [place] [address] [address] Oct, [place] [address] [address] Sep, Hypothyroid E03.9 [place] [address] [address] Sep, Schizo affective schizophren ia F25.0 ; Depression F32.9 ; Anxiety F41.9 ; Allergic rhinitis J30.9 ; Raynauds syndrome I73.00 ; Insomnia G47.00 ; Essential hypertension I10 ; GERD (gastroesophageal reflux disease) K21.9 ; Hypothyroidism E03.9 and Vitamin D deficiency E55.9 [place] [address] [address] Sep, [place] [address] [address] Sep, [place] [address] [address] Aug, Allergic rhinitis J30.9 ; De pression F32.9 ; Anxiety F41.9 ; Raynauds syndrome I73.00 ; Insomnia G47.00 and GERD (gastroesophageal reflux disease) K21.9 [place] [id number] [place] [address] Aug, MONICA (secretory otitis media) H65.90 and Raynauds syndrome I73.00 [facility] [address] [place] [address] Jul, Acute otitis externa of both ears, unspecified type H60.503 [facility] [address] [address] Jun, [place] [address] [address] Jun, Essential hypertension I10 ; Allergic rhinitis J30.9 ; Hypothyroidism E03.9 and Osteoarthritis M19.90 [place] [address] [address] Jun, Routine adult health mainten ance Z00.00 ; Hypothyroidism E03.9 ; Essential hypertension I10 ; Insomnia G47.00 ; Nicotine addiction F17.200 ; Raynauds syndrome I73.00 ; GERD (gastroesophageal reflux disease) K21.9 ; Allergic rhinitis J30.9 ; Anxiety F41.9 ; Depression F32.9 and Schizo affective schizophrenia F25.0 [place] [address] [id number] [place] [address] May, Upper respiratory tract infe ction, unspecified type J06.9 [facility] [address] [place] [address] Mar, [facility] [address] [id number] [id number] Mar, [place] [address] [address] [id number] [place] [address] Mar, [place] [address] [id number] [place] [address] Mar, [place] [address] [id number] [place] [address] 25 Aug, 2015 Jaw pain 784.92 and Environm ental and seasonal allergies 477.8 [facility] [address] [id number] [address] [place] [address], [place] [address] Feb, [facility] [address] [id number] [address] [place] [address] Oct, [facility] [address] [id number] [address] [place] [address], [place] [address] Oct, [facility] [address] [id number] [address] [place] [address] Oct, [facility] [address] [id number] [address] [place] [address], [place] [address] Oct, [facility] [address] [id number] [address] [place] [address] Sep, [facility] [address] [id number] [address] [place] [address] Sep, [facility] [address] [id number] [address] [place] [address] Jul, [facility] [address] [id number] [address] [place] [address] Jul, [facility] [address] [id number] [address] [place] [address] Jul, [facility] [address] [id number] [address] [place] [address] Jul, [facility] [address] [id number] [address] [place] [address] Jul, [facility] [address] [id number] [address] [place] [address] Jul, [facility] [address] [id number] [address] [place] [address] Jul, [facility] [address] [id number] [address] [place] [address] Jun, [facility] [address] [id number] [address] [place] [address], [place] [address] 31 Jun, 2014 [facility] [address] [id number] [address] [place] [address], [place] [address] 22 Jun, 2014 [facility] [address] [id number] [address] [place] [address], [place] [address] 18 Jun, 2014 [facility] [address] [id number] [address] [place] [address], [place] [address] 17 Jun, 2014 [facility] [address] [id number] [address] [place] [address], [place] [address] 17 Jun, 2014 [facility] [address] [id number] [address] [place] [address], [place] [address] 16 Jun, 2014 [facility] [address] [id number] [address] [place] [address], [place] [address] 16 Jun, 2014 [facility] [address] [id number] [address] [place] [address], [place] [address] 30 Apr, 2014 [facility] [address] [id number] [address] [place] [address], [place] [address] 30 Apr, 2014 [facility] [address] [id number] [address] [place] [address], [place] [address] 17 Mar, 2014 [facility] [address] [id number] [address] [place] [address], [place] [address] 17 Mar, 2014 [facility] [address] [id number] [address] [place] [address], [place] [address] 03 Mar, 2014 [facility] [address] [id number] [address] [place] [address], [place] [address] 03 Mar, 2014 [facility] [address] [id number] [address] [place] [address], [place] [address] 16 Jan, 2014 [facility] [address] [id number] [address] [place] [address], [place] [address] 16 Jan, 2014 [facility] [address] [id number] [address] [place] [address], [place] [address] Oct, [facility] [address] [id number] [address] [place] [address], [place] [address] Oct, [facility] [address] [id number] [address] [place] [address], [place] [address] Sep, [facility] [address] [id number] [address] [place] [address], [place] [address] Sep, [facility] [address] [id number] [address] [place] [address], [place] [address] Sep, [facility] [address] [id number] [address] [place] [address], [place] [address] Sep, [facility] [address] [id number] [address] [place] [address], [place] [address] Sep, [facility] [address] [id number] [address] [place] [address], [place] [address] Sep, [facility] [address] [id number] [address] [place] [address], [place] [address] Aug, [facility] [address] [id number] [address] [place] [address], [place] [address] Aug, [facility] [address] [id number] [address] [place] [address], [place] [address] Jul, [facility] [address] [id number] [address] [place] [address], [place] [address] Jul, [facility] [address] [id number] [address] [place] [address], [place] [address] Jul, [facility] [address] [id number] [address] [place] [address], [place] [address] Jul, [facility] [address] [id number] [address] [place] [address], [place] [address] Jun, [facility] [address] [id number] [address] [place] [address], [place] [address] Jun, [facility] [address] [id number] [address] [place] [address], [place] [address] May, [facility] [address] [id number] [address] [place] [address], [place] [address] May, [facility] [address] [id number] [address] [place] [address], [place] [address] Apr, [facility] [address] [id number] [address] [place] [address], [place] [address] Apr, [facility] [address] [id number] [address] [place] [address], [place] [address] Apr, [facility] [address] [id number] [address] [place] [address], [place] [address] Apr, [facility] [address] [id number] [address] [place] [address], [place] [address] Apr, [facility] [address] [id number] [address] [place] [address], [place] [address] Apr, [facility] [address] [id number] [address] [place] [address], [place] [address] 24 Mar, 2013 [facility] [address] [id number] [address] [place] [address], [place] [address] Mar, [facility] [address] [id number] [address] [place] [address], [place] [address] Mar, [facility] [address] [id number] [address] [place] [address], [place] [address] Mar, [facility] [address] [id number] [address] [place] [address], [place] [address] Mar, [facility] [address] [id number] [address] [place] [address], [place] [address] Feb, [facility] [address] [id number] [address] [place] [address], [place] [address] Feb, [facility] [address] [id number] [address] [place] [address], [place] [address] Feb, [facility] [address] [id number] [address] [place] [address], [place] [address] 08 Feb, 2013 [facility] [address] [id number] [address] [place] [address], [place] [address] 18 Jan, 2013 [facility] [address] [id number] [address] [place] [address], [place] [address] 17 Jan, 2013 [facility] [address] [id number] [address] [place] [address], [place] [address] 16 Jan, 2013 [facility] [address] [id number] [address] [place] [address], [place] [address] Jan, [facility] [address] [id number] [address] [place] [address], [place] [address] Jan, [facility] [address] [id number] [address] [place] [address], [place] [address] Jan, [facility] [address] [id number] [address] [place] [address], [place] [address] 27 Dec, 2012 [facility] [address] [id number] [address] [place] [address], [place] [address] 25 Dec, 2012 [facility] [address] [id number] [address] [place] [address], [place] [address] Dec, [facility] [address] [id number] [address] [place] [address], [place] [address] 14 Dec, 2012 [facility] [address] [id number] [address] [place] [address], [place] [address] 13 Dec, 2012 [facility] [address] [id number] [address] [place] [address], [place] [address] 12 Dec, 2012 [facility] [address] [id number] [address] [place] [address], [place] [address] 11 Dec, 2012 [facility] [address] [id number] [address] [place] [address], [place] [address] 07 Dec, 2012 [facility] [address] [id number] [address] [place] [address], [place] [address] Dec, [facility] [address] [id number] [address] [place] [address], [place] [address] Dec, [facility] [address] [id number] [address] [place] [address], [place] [address] November, [facility] [address] [id number] [address] [place] [address], [place] [address] November, [facility] [address] [id number] [address] [place] [address], [place] [address] November, [facility] [address] [id number] [address] [place] [address], [place] [address] November, [facility] [address] [id number] [address] [place] [address], [place] [address] November, [facility] [address] [id number] [address] [place] [address], [place] [address] Oct, [facility] [address] [id number] [address] [place] [address], [place] [address] Oct, [facility] [address] [id number] 70 [place] [address], [place] [address] Oct, [facility] [address] [id number] [address] [place] [address], [place] [address] Oct, [facility] [address] [id number] [address] [place] [address], [place] [address] Oct, [facility] [address] [id number] [address] [place] [address], [place] [address] Sep, [facility] [address] [id number] [address] [place] [address], [place] [address] Sep, [facility] [address] [id number] [address] [place] [address], [place] [address] Sep, [facility] [address] [id number] [address] [place] [address], [place] [address] Sep, [facility] [address] [id number] [address] [place] [address], [place] [address] 26 Aug, 2012 [facility] [address] [id number] [address] [place] [address], [place] [address] 18 Aug, 2012 [facility] [address] [id number] [address] [place] [address], [place] [address] 18 Aug, 2012 [facility] [address] [id number] [address] [place] [address], [place] [address] 15 Aug, 2012 [facility] [address] [id number] [address] [place] [address], [place] [address] 17 Jun, 2012 [facility] [address] [id number] [address] [place] [address], [place] [address] Jun, [facility] [address] [id number] [address] [place] [address], [place] [address] Jun, [facility] [address] [id number] [address] [place] [address], [place] [address] Jun, [facility] [address] [id number] [address] [place] [address], [place] [address] Jun, [facility] [address] [id number] [address] [place] [address], [place] [address] Jun, [facility] [address] [id number] [address] [place] [address], [place] [address] Jun, [facility] [address] [id number] [address] [place] [address], [place] [address] Jun, [facility] [address] [id number] [address] [place] [address], [place] [address] Jun, [facility] [address] [id number] [address] [place] [address], [place] [address] Jun, [facility] [address] [id number] [address] [place] [address], [place] [address] May, [facility] [address] [id number] [address] [place] [address], [place] [address] May, [facility] [address] [id number] [address] [place] [address], [place] [address] 27 May, 2012 [facility] [address] [id number] [address] [place] [address], [place] [address] May, [facility] [address] [id number] [address] [place] [address], [place] [address] May, [facility] [address] [id number] [address] [place] [address], [place] [address] 16 May, 2012 [facility] [address] [id number] [address] [place] [address], [place] [address] 16 May, 2012 [facility] [address] [id number] [address] [place] [address], [place] [address] 14 May, 2012 [facility] [address] [id number] [address] [place] [address], [place] [address] May, [facility] [address] [id number] [address] [place] [address], [place] [address] 30 Apr, 2012 [facility] [address] [id number] [address] [place] [address], [place] [address] 30 Apr, 2012 [facility] [address] [id number] [address] [place] [address], [place] [address] 17 Apr, 2012 [facility] [address] [id number] [address] [place] [address], [place] [address] 17 Apr, 2012 [facility] [address] [id number] [address] [place] [address] 09 Apr, 2012 [facility] [address] [id number] [address] [place] [address], [place] [address] 18 Mar, 2012 [facility] [address] [id number] [address] [place] [address], [place] [address] 17 Sep2011 [facility] [address] [id number] [address] [place] [address], [place] [address] 07 Mar, 2012 [facility] [address] [id number] [address] [place] [address], [place] [address] Feb, [facility] [address] [id number] [address] [place] [address], [place] [address] Feb, [facility] [address] [id number] [address] [place] [address], [place] [address] Feb, [facility] [address] [id number] [address] [place] [address], [place] [address] Feb, [facility] [address] [id number] [address] [place] [address], [place] [address] Jan, [facility] [address] [id number] [address] [place] [address], [place] [address] Jan, [facility] [address] [id number] [address] [place] [address], [place] [address] Jan, [facility] [address] [id number] [address] [place] [address], [place] [address] Jan, [facility] [address] [id number] [address] [place] [address], [place] [address] Jan, [facility] [address] [id number] [address] [place] [address], [place] [address] Jan, [facility] [address] [id number] [address] [place] [address], [place] [address] Dec, [facility] [address] [id number] [address] [place] [address], [place] [address] Dec, [facility] [address] [id number] [address] [place] [address], [place] [address] Dec, [facility] [address] [id number] [address] [place] [address], [place] [address] November, [facility] [address] [id number] [address] [place] [address], [place] [address] November, [facility] [address] [id number] [address] [place] [address], [place] [address] November, [facility] [address] [id number] [address] [place] [address], [place] [address] November, [facility] [address] [id number] [address] [place] [address], [place] [address] Oct, [facility] [address] [id number] [address] [place] [address], [place] [address] Oct, [facility] [address] [id number] [address] [place] [address], [place] [address] Oct, [facility] [address] [id number] [address] [place] [address], [place] [address] Sep, [facility] [address] [id number] [address] [place] [address], [place] [address] Sep, [facility] [address] [id number] [address] [place] [address], [place] [address] Aug, [facility] [address] [id number] [address] [place] [address], [place] [address] Aug, [facility] [address] [id number] [address] [place] [address], [place] [address] Aug, [facility] [address] [id number] [address] [place] [address], [place] [address] Aug, [facility] [address] [id number] [address] [place] [address], [place] [address] Jul, [facility] [address] [id number] [address] [place] [address], [place] [address] Jul, [facility] [address] [id number] [address] [place] [address], [place] [address] Jul, [facility] [address] [id number] [address] [place] [address], [place] [address] Jul, [facility] [address] [id number] [address] [place] [address], [place] [address] Jul, [facility] [address] [id number] [address] [place] [address], [place] [address] 05 Jul, 2011 [facility] [address] [id number] [address] [place] [address], [place] [address] 05 Jul, 2011 [facility] [address] [id number] [address] [place] [address], [place] [address] Jul, [facility] [address] [id number] [address] [place] [address], [place] [address] 30 Jun, 2011 [facility] [address] [id number] [address] [place] [address], [place] [address] 26 Jun, 2011 [facility] [address] [id number] [address] [place] [address], [place] [address] Jun, [facility] [address] [id number] [address] [place] [address], [place] [address] 08 Jun, 2011 [facility] [address] [id number] [address] [place] [address], [place] [address] Jun, [facility] [address] [id number] [address] [place] [address], [place] [address] May, [facility] [address] [id number] [address] [place] [address], [place] [address] May, [facility] [address] [id number] [address] [place] [address], [place] [address] 17 May, 2011 [facility] [address] [id number] [address] [place] [address], [place] [address] 15 May, 2011 [facility] [address] [id number] [address] [place] [address], [place] [address] May, [facility] [address] [id number] [address] [place] [address], [place] [address] 08 May, 2011 [facility] [address] [id number] [address] [place] [address], [place] [address] 19 Apr, 2011 [facility] [address] [id number] [address] [place] [address], [place] [address] 13 Apr, 2011 [facility] [address] [id number] [address] [place] [address] Apr, [facility] [address] [id number] [address] [place] [address] Feb, [facility] [address] [id number] [address] [place] [address] Feb, [facility] [address] [id number] [address] [place] [address] Oct, [facility] [address] [id number] [address] [place] [address] Jul, [facility] [address] [id number] [address] [place] [address] Jul, [facility] [address] [id number] [address] [place] [address] Jun, [facility] [address] [id number] [address] [place] [address] May, [facility] [address] [id number] [address] [place] [address] May, [facility] [address] [id number] [address] [place] [address] May, [facility] [address] [id number] [address] [place] [address] Apr, [facility] [address] [id number] [address] [place] [address] Jan, [facility] [address] [id number] [address] [place] [address] November, IMMUNIZATIONS No Known Immunizations SOCIAL HISTORY Never Assessed REASON FOR VISIT EMR-[facility] [place] PLAN OF CARE VITAL SIGNS MEDICATIONS Unknown [...]
--- OUTSIDE RECORDS SUMMARY | 2020-01-31 09:47 | XMS REPORT ---
Author Author Ivet Knott Doctor Organization [facility] Address Unknown Phone Unavailable Care Team Providers Care Tub Puller Name Role Phone Migration, Doctor Unavailable Unavailable PROBLEMS Type Condition ICD9-CM Code OCN97-FQ Code Onset Dates Condition S tatus SNOMED Code Problem Schizo affective schizophrenia F25.0 Active 758291199 Problem Essential hypertension I10 Active 11795720 Problem GERD (gastroesophageal reflux disease) K21.9 Active 684397428 Problem Depression F32.9 Active 17608683 Problem Anxiety F41.9 Active 32199891 Problem Hypothyroidism E03.9 Active 82578 008 Problem Bilateral carotid artery disease I77.9 Active 228043961 Problem Stage 3 chronic kidney disease N18.3 Active 804205197 Problem Fibromyalgia M79.7 Active 9913835 05 Problem Idiopathic peripheral neuropathy G60.9 Active 81448751 Problem Low back pain, unspecified b ack pain laterality, unspecified chronicity, with sciatica presence unspecified M54.5 Active 446549222 Problem Acquired hypothyroidism E03.9 Active 244162385 Problem Osteoarthritis M19.90 Active 70656 5006 Problem Vitamin D deficiency E55.9 Active 01804462 Problem Iron deficiency anemia, unspecified iron deficiency an emia type D50.9 Active 67109124 Problem Secondary hyperparathyroidism, not elsewhere classified E21.1 Active 04974180 Problem Sensory loss R20.0 Active 6792037 9 ALLERGIES Substance Reaction Event Type Date Status Codeine Unknown Drug Allergy Oct, Active Cholecalciferol (vitamin D3) 50,000 Unit Capsule threw /meds labs out of whack Non Drug Allergy Oct, Active ENCOUNTERS Encounter Location Date Diagnosis [facility] [address] [facility] [id number] [address] [place] [address] Dec, Acquired hypothyroidism E03. 9 [facility] [address] [facility] [id number] [address] [place] [address] Dec, Fibromyalgia M79.7 ; Hypothy roidism E03.9 ; Essential hypertension I10 and Sensory loss R20.[address] [address] November, Osteoarthritis M19.90 [facility] [address] [facility] [id number] [address] [place] [address] Oct, Osteoarthritis M19.90 [facility] [address] [facility] [id number] [address] [place] [address] Oct, Sore throat J02.9 and Acute nasopharyngitis J00 [facility] [address] [facility] [id number] [address] [place] [address] Sep, Osteoarthritis M19.90 [facility] [address] [facility] [id number] [address] [place] [address] Sep, Acute non-recurrent maxillar y sinusitis J01.00 [facility] [address] [facility] [id number] [address] [place] [address] Aug, Acute non-recurrent pansinus itis J01.40 [facility] [address] [facility] [id number] [address] [place] [address] Jul, Osteoarthritis M19.90 [facility] [address] [facility] [id number] [address] [place] [address] Jul, [facility] [address] [place] [id number] [address] [place] [address] Apr, Osteoarthritis M19.90 [facility] [address] [place] [id number] [address] [place] [address] Apr, Fibromyalgia M79.7 ; Essenti al hypertension I10 ; Encounter for immunization Z23 ; Stage 3 chronic kidney disease N18.3 and Depression F32.9 [facility] [address] [facility] [id number] [address] [place] [address] Dec, Fibromyalgia M79.7 ; Osteoar thritis M19.90 and Encounter for medication management Z79.899 [facility] [address] [facility] [id number] [address] [place] [address] November, Nausea and vomiting, intract ability of vomiting not specified, unspecified vomiting type R11.2 and Dizziness R42 [place] [address] [address] November, Fibromyalgia M79.7 [place] [address] [address] November, Medicare annual wellness vis it, initial Z00.00 ; Anxiety F41.9 ; Depression F32.9 ; Stage 3 chronic kidney disease N18.3 ; Fibromyalgia M79.7 ; Essential hypertension I10 ; Secondary hyperparathyroidism, not elsewhere classified E21.1 ; Osteoarthritis M19.90 ; Hypothyroidism E03.9 and Encounter for immunization Z23 [place] [address] [address] Oct, [place] [address] [address] Oct, Sebaceous cyst L72.3 [place] [address] [address] Sep, Low back pain, unspecified b ack pain laterality, unspecified chronicity, with sciatica presence unspecified M54.5 and Secondary hyperparathyroidism, not elsewhere classified E21.1 [place] [address] [address] Sep, Fibromyalgia M79.7 [place] [address] [address] Sep, Fibromyalgia M79.7 ; Plantar fasciitis, bilateral M72.2 ; Essential hypertension I10 ; Depression F32.9 and Epidermoid cyst L72.0 [place] [address] [place] [id number] [address] [place] [address] Jul, [place] [address] [place] [id number] [place] [address] Jul, Fibromyalgia M79.7 ; Iron de ficiency anemia, unspecified iron deficiency anemia type D50.9 and Acute nasopharyngitis J00 [facility] [address] [address] 18 Jun, 2017 Sore throat J02.9 and Acute serous otitis media of left ear, recurrence not specified H65.02 [facility] [address] [address] Jun, Hypothyroidism E03.9 [facility] [address] [address] Jun, [place] [address] [address] Jun, Hypothyroidism E03.9 ; Essen tial hypertension I10 and Osteoarthritis M19.90 [place] [address] [address] May, [place] [address] [address] May, [place] [address] [address] Feb, [place] [address] [address] Feb, Leonela-menopausal N95.1 and To bacco use Z72.0 [place] [address] [address] Jan, [place] [address] [address] Jan, Osteoarthritis M19.90 ; Bila teral carotid artery disease I77.9 ; Raynauds syndrome I73.00 ; Essential hypertension I10 ; Allergic rhinitis J30.9 ; Stage 3 chronic kidney disease N18.3 ; Fibromyalgia M79.7 ; Hypothyroidism E03.9 ; GERD (gastroesophageal reflux disease) K21.9 and Vitamin D deficiency E55.9 [place] [address] [address] Dec, Raynauds syndrome I73.00 ; P lantar fascial fibromatosis M72.2 ; Osteoarthritis M19.90 and Fibromyalgia M79.7 [facility] [address] [facility] [id number] [address] [place] [address] Dec, [facility] [address] [facility] [id number] [address] [place] [address] Dec, [facility] [address] [place] [id number] [address] [place] [address] Oct, Function kidney decreased N2 8.9 [facility] [address] [place] [id number] Oct, Dental examination Z01.20 [facility] [address] [place] [id number] [place] [address] 18 Oct, 2016 Essential hypertension I10 a nd Function kidney decreased N28.9 [facility] [id number] [place] [id number] Oct, Dental examination Z01.20 [facility] [address] [place] [id number] [place] [address] Oct, [facility] [address] [place] [id number] [place] [address] 24 Sep, 2016 Other specified disorders in volving the immune mechanism D89.89 and Schizo affective schizophrenia F25.0 [facility] [address] [place] [id number] [address] [place] [address] Sep, Schizo affective schizophren ia F25.0 [facility] [address] [facility] [id number] [address] [place] [address] 16 Sep, 2016 Eustachian tube dysfunction, bilateral H69.83 [facility] [address] [place] [id number] [address] [place] [address] 15 Sep, 2016 [facility] [address] [place] [id number] [place] [address] 14 Sep, 2016 [facility] [address] [address] 14 Sep, 2016 [facility] [address] [address] 13 Sep, 2016 Eustachian tube dysfunction, bilateral H69.83 [place] [address] [address] Sep, Allergic rhinitis J30.9 ; Es sential hypertension I10 ; Hypothyroidism E03.9 and Schizo affective schizophrenia F25.[address] [address] Jul, Eustachian tube dysfunction, bilateral H69.83 and Visit for TB skin test Z11.1 [facility] [address] [address] Jul, Subacute pansinusitis J01.[address] [address] Jun, Schizo affective schizophren ia F25.0 ; Depression F32.9 ; Allergic rhinitis J30.9 ; Raynauds syndrome I73.00 ; Essential hypertension I10 ; Slow transit constipation K59.01 ; GERD (gastroesophageal reflux disease) K21.9 ; Hypothyroidism E03.9 ; Nicotine addiction F17.200 ; Other viral agents as the cause of diseases classified elsewhere B97.89 ; Acute upper respiratory infection, unspecified J06.9 and Osteoarthritis M19.90 [place] [address] [place] [id number] [address] [place] [address] Jun, Allergic rhinitis J30.9 and GERD (gastroesophageal reflux disease) K21.[address] [address] May, [place] [address] [address] Mar, Schizo affective schizophren ia F25.0 [facility] [address] [address] Mar, Schizo affective schizophren ia F25.0 [place] [address] [address] Mar, Schizo affective schizophren ia F25.0 [place] [address] [address] Mar, Acute non-recurrent maxillar y sinusitis J01.00 [place] [address] [address] Feb, Schizo affective schizophren ia F25.0 [place] [address] [address] Feb, Contact dermatitis and eczem a L25.9 [place] [address] [address] Jan, [place] [address] [address] Jan, Schizo affective schizophren ia F25.0 ; Slow transit constipation K59.01 ; Essential hypertension I10 ; GERD (gastroesophageal reflux disease) K21.9 ; Hypothyroidism E03.9 ; Osteoarthritis M19.90 ; Low back pain, unspecified back pain laterality, unspecified chronicity, with sciatica presence unspecified M54.5 and Bilateral carotid artery disease I77.9 [place] [address] [place] [id number] [address] [place] [address] Oct, [place] [address] [address] Sep, Hypothyroid E03.9 [place] [address] [address] Sep, Schizo affective schizophren ia F25.0 ; Depression F32.9 ; Anxiety F41.9 ; Allergic rhinitis J30.9 ; Raynauds syndrome I73.00 ; Insomnia G47.00 ; Essential hypertension I10 ; GERD (gastroesophageal reflux disease) K21.9 ; Hypothyroidism E03.9 and Vitamin D deficiency E55.9 [place] [address] [address] Sep, [facility] [address] [address] Sep, [place] [address] [address] Aug, Allergic rhinitis J30.9 ; De pression F32.9 ; Anxiety F41.9 ; Raynauds syndrome I73.00 ; Insomnia G47.00 and GERD (gastroesophageal reflux disease) K21.9 [place] [address] [address] Aug, MONICA (secretory otitis media) H65.90 and Raynauds syndrome I73.00 [facility] [address] [address] Jul, Acute otitis externa of both ears, unspecified type H60.503 [place] [address] [address] Jun, [place] [address] [address] Jun, Essential hypertension I10 ; Allergic rhinitis J30.9 ; Hypothyroidism E03.9 and Osteoarthritis M19.90 [place] [address] [address] Jun, Routine adult health mainten ance Z00.00 ; Hypothyroidism E03.9 ; Essential hypertension I10 ; Insomnia G47.00 ; Nicotine addiction F17.200 ; Raynauds syndrome I73.00 ; GERD (gastroesophageal reflux disease) K21.9 ; Allergic rhinitis J30.9 ; Anxiety F41.9 ; Depression F32.9 and Schizo affective schizophrenia F25.0 [place] [address] [address] May, Upper respiratory tract infe ction, unspecified type J06.9 [facility] [address] [id number] [address] [place] [address] Mar, [facility] [place] [address] [id number] [place] [id number] Mar, [facility] [address] [id number] [address] [place] [address] Mar, [facility] [address] [id number] [address] [place] [address] Mar, [facility] [address] [id number] [address] [place] [address] Feb, Jaw pain 784.92 and Environm ental and seasonal allergies 477.8 [facility] [address] [id number] [address] [place] [address] Feb, [facility] [address] [id number] [address] [place] [address] Oct, [facility] [address] [id number] [address] [place] [address] Oct, [facility] [address] [id number] [address] [place] [address] Oct, [facility] [address] [id number] [address] [place] [address] Oct, [facility] [address] [id number] [address] [place] [address] Sep, [facility] [address] [id number] [address] [place] [address] Sep, [facility] [address] [id number] [address] [place] [address] Jul, [facility] [address] [id number] [address] [place] [address] Jul, [facility] [address] [id number] [address] [place] [address] Jul, [facility] [address] [id number] [address] [place] [address], [place] [address] Jul, [facility] [address] [id number] [address] [place] [address], [place] [address] Jul, [facility] [address] [id number] [address] [place] [address], [place] [address] Jul, [facility] [address] [id number] [address] [place] [address], [place] [address] Jul, [facility] [address] [id number] [address] [place] [address], [place] [address] Jun, [facility] [address] [id number] [address] [place] [address], [place] [address] Jun, [facility] [address] [id number] [address] [place] [address], [place] [address] Jun, [facility] [address] [id number] [address] [place] [address], [place] [address] 18 Jun, 2014 [facility] [address] [id number] [address] [place] [address], [place] [address] 17 Jun, 2014 [facility] [address] [id number] [address] [place] [address], [place] [address] 17 Jun, 2014 [facility] [address] [id number] [address] [place] [address], [place] [address] 16 Jun, 2014 [facility] [address] [id number] [address] [place] [address], [place] [address] 16 Jun, 2014 [facility] [address] [id number] [address] [place] [address], [place] [address] 30 Apr, 2014 [facility] [address] [id number] [address] [place] [address], [place] [address] 30 Apr, 2014 [facility] [address] [id number] [address] [place] [address], [place] [address] 17 Mar, 2014 [facility] [address] [id number] [facility] [place] [address] 17 Mar, 2014 [facility] [address] [id number] [facility] [place] [address] Mar, [facility] [address] [id number] [address] [place] [address], [place] [address] Mar, [facility] [address] [id number] [address] [place] [address], [place] [address] Jan, [facility] [address] [id number] [address] [place] [address], [place] [address] Jan, [facility] [address] [id number] [address] [place] [address], [place] [address] Oct, [facility] [address] [id number] [address] [place] [address], [place] [address] Oct, [facility] [address] [id number] [address] [place] [address], [place] [address] Sep, [facility] [address] [id number] [address] [place] [address], [place] [address] Sep, [facility] [address] [id number] [address] [place] [address], [place] [address] Sep, [facility] [address] [id number] [address] [place] [address], [place] [id number] Sep, [facility] [address] [id number] [address] [place] [address], [place] [address] Sep, [facility] [address] [id number] [address] [place] [address], [place] [address] Sep, [facility] [address] [id number] [address] [place] [address], [place] [address] Aug, [facility] [address] [id number] [address] [place] [address], [place] [address] Aug, [facility] [address] [id number] [address] [place] [address], [place] [address] Jul, [facility] [address] [id number] [address] [place] [address], [place] [address] Jul, [facility] [address] [id number] [address] [place] [address], [place] [address] Jul, [facility] [address] [id number] [address] [place] [address], [place] [address] Jul, [facility] [address] [id number] [address] [place] [address], [place] [address] Jun, [facility] [address] [id number] [address] [place] [address], [place] [address] Jun, [facility] [address] [id number] [address] [place] [address], [place] [address] May, [facility] [address] [id number] [address] [place] [address], [place] [address] May, [facility] [address] [id number] [address] [place] [address], [place] [address] Apr, [facility] [address] [id number] [address] [place] [address], [place] [address] Apr, [facility] [address] [id number] [address] [place] [address] Apr, [facility] [address] [id number] [address] [place] [id number] Apr, [facility] [address] [id number] [address] [place] [address] Apr, [facility] [address] [id number] [address] [place] [address], [place] [address] Apr, [facility] [address] [id number] [address] [place] [id number] 24 Mar, 2013 [facility] [address] [id number] [address] [place] [address] Mar, [facility] [address] [id number] [address] [place] [address], [place] [address] 09 Mar, 2013 [facility] [address] [id number] [address] [place] [address], [place] [address] 05 Mar, 2013 [facility] [address] [id number] [address] [place] [address], [place] [address] 05 Mar, 2013 [facility] [address] [id number] [address] [place] [address], [place] [address] Feb, [facility] [address] [id number] [address] [place] [address], [place] [address] Feb, [facility] [address] [id number] [address] [place] [address], [place] [address] Feb, [facility] [address] [id number] [address] [place] [address], [place] [address] Feb, [facility] [address] [id number] [address] [place] [address], [place] [address] Jan, [facility] [address] [id number] [address] [place] [address], [place] [address] Jan, [facility] [address] [id number] [address] [place] [address], [place] [id number] Jan, [facility] [address] [id number] [address] [place] [address], [place] [address] Jan, [facility] [address] [id number] [address] [place] [address], [place] [address] Jan, [facility] [address] [id number] [address] [place] [address], [place] [address] Jan, [facility] [address] [id number] [address] [place] [address], [place] [id number] Dec, [facility] [address] [id number] [address] [place] [address], [place] [id number] Dec, [facility] [address] [id number] [address] [place] [address], [place] [id number] Dec, [facility] [address] [id number] [address] [place] [address], [place] [id number] 14 Dec, 2012 [facility] [address] [id number] [address] [place] [address], [place] [id number] 13 Dec, 2012 [facility] [address] [id number] [address] [place] [address], [place] [id number] 12 Dec, 2012 [facility] [address] [id number] [address] [place] [address], [place] [id number] Dec, [facility] [address] [id number] [address] [place] [address], [place] [id number] 07 Dec, 2012 [facility] [address] [id number] [address] [place] [address], [place] [id number] 05 Dec, 2012 [facility] [address] [id number] [address] [place] [address], [place] [id number] Dec, [facility] [address] [id number] [address] [place] [address], [place] [id number] November, [facility] [address] [id number] [address] [place] [address], [place] [id number] November, [facility] [address] [id number] [address] [place] [address], [place] [id number] November, [facility] [address] [id number] [address] [place] [address], [place] [id number] November, [facility] [address] [id number] [address] [place] [address], [place] [id number] November, [facility] [address] [id number] [address] [place] [address], [place] [id number] Oct, [facility] [address] [id number] [address] [place] [address], [place] [id number] Oct, [facility] [address] [id number] [address] [place] [address], [place] [id number] Oct, [facility] [address] [id number] [address] [place] [address], [place] [id number] Oct, [facility] [address] [id number] [address] [place] [address], [place] [id number] Oct, [facility] [address] [id number] [address] [place] [address], [place] [id number] Sep, [facility] [address] [id number] [address] [place] [address], [place] [id number] 19 Sep, 2012 [facility] [address] [id number] [address] [place] [address], [place] [id number] 18 Sep, 2012 [facility] [address] [id number] [address] [place] [address], [place] [id number] 05 Sep, 2012 [facility] [address] [id number] [address] [place] [place] [address], [place] [id number] 26 Aug, 2012 [facility] [address] [id number] [address] [place] [address], [place] [id number] 18 Aug, 2012 [facility] [address] [id number] [address] [place] [address], [place] [id number] 18 Aug, 2012 [facility] [address] [id number] [address] [place] [address], [place] [id number] 15 Aug, 2012 [facility] [address] [id number] [address] [place] [address], [place] [id number] Jun, [facility] [address] [id number] [address] [place] [address], [place] [id number] Jun, [facility] [address] [id number] [address] [place] [address], [place] [id number] Jun, [facility] [address] [id number] [address] [place] [address], [place] [id number] Jun, [facility] [address] [id number] [address] [place] [address], [place] [id number] Jun, [facility] [address] [id number] [address] [place] [address], [place] [id number] Jun, [facility] [address] [id number] [address] [place] [address], [place] [id number] Jun, [facility] [address] [id number] [address] [place] [address], [place] [id number] Jun, [facility] [address] [id number] [address] [place] [address], [place] [id number] Jun, [facility] [address] [id number] [address] [place] [address], [place] [id number] Jun, [facility] [address] [id number] [address] [place] [address], [place] [id number] 28 May, 2012 [facility] [address] [id number] [address] [place] [address], [place] [id number] May, [facility] [address] [id number] [address] [place] [address], [place] [id number] May, [facility] [address] [id number] [address] [place] [address], [place] [id number] May, [facility] [address] [id number] [address] [place] [address], [place] [id number] 26 May, 2012 [facility] [address] [id number] [address] [place] [address], [place] [id number] 16 May, 2012 [facility] [address] [id number] [address] [place] [address], [place] [id number] 16 May, 2012 [facility] [address] [id number] [address] [place] [address], [place] [id number] 14 May, 2012 [facility] [address] [id number] [address] [place] [address], [place] [id number] 14 May, 2012 [facility] [address] [id number] [address] [place] [address], [place] [id number] 30 Apr, 2012 [facility] [address] [id number] [address] [place] [address], [place] [id number] 30 Apr, 2012 [facility] [address] [id number] [address] [place] [address], [place] [id number] Apr, [facility] [address] [id number] [address] [place] [address], [place] [id number] 17 Apr, 2012 [facility] [address] [id number] [address] [place] [address], [place] [id number] Apr, [facility] [address] [id number] [address] [place] [address], [place] [id number] 18 Mar, 2012 [facility] [address] [id number] [address] [place] [address], [place] [id number] 17 Mar, 2012 [facility] [address] [id number] [address] [place] [address], [place] [id number] 07 Mar, 2012 [facility] [address] [id number] [address] [place] [address], [place] [id number] 27 Feb, 2012 [facility] [address] [id number] [address] [place] [address], [place] [id number] 16 Feb, 2012 [facility] [address] [id number] [address] [place] [address], [place] [id number] 15 Feb, 2012 [facility] [address] [id number] [address] [place] [address], [place] [id number] 14 Feb, 2012 [facility] [address] [id number] [address] [place] [address], [place] [id number] Jan, [facility] [address] [id number] [address] [place] [address], [place] [id number] Jan, [facility] [address] [id number] [address] [place] [address], [place] [id number] Jan, [facility] [address] [id number] [address] [place] [address], [place] [id number] Jan, [facility] [address] [id number] [address] [place] [address], [place] [id number] 17 Jan, 2012 [facility] [address] [id number] [address] [place] [address], [place] [id number] Jan, [facility] [address] [id number] [address] [place] [address], [place] [id number] Dec, [facility] [address] [id number] [address] [place] [address], [place] [id number] Dec, [facility] [address] [id number] [address] [place] [address], [place] [id number] Dec, [facility] [address] [id number] [address] [place] [address], [place] [id number] November, [facility] [address] [id number] [address] [place] [address], [place] [id number] November, [facility] [address] [id number] [address] [place] [address], [place] [id number] November, [facility] [address] [id number] [address] [place] [address], [place] [id number] November, [facility] [address] [id number] [address] [place] [address], [place] [id number] Oct, [facility] [address] [id number] [address] [place] [address], [place] [id number] Oct, [facility] [address] [id number] [address] [place] [address], [place] [id number] Oct, [facility] [address] [id number] [address] [place] [address], [place] [id number] Sep, [facility] [address] [id number] [address] [place] [address], [place] [id number] Sep, [facility] [address] [id number] [address] [place] [address], [place] [id number] Aug, [facility] [address] [id number] [address] [place] [address], [place] [id number] Aug, [facility] [address] [id number] [address] [place] [address], [place] [id number] Aug, [facility] [address] [id number] [address] [place] [address], [place] [id number] Aug, [facility] [address] [id number] [address] [place] [address], [place] [id number] Jul, [facility] [address] [id number] [address] [place] [address], [place] [id number] Jul, [facility] [address] [id number] [address] [place] [address], [place] [id number] Jul, [facility] [address] [id number] [address] [place] [address], [place] [id number] Jul, [facility] [address] [id number] [address] [place] [address], [place] [id number] Jul, [facility] [address] [id number] [address] [place] [address], [place] [id number] Jul, [facility] [address] [id number] [address] [place] [address], [place] [id number] Jul, [facility] [address] [id number] [address] [place] [address], [place] [id number] Jul, [facility] [address] [id number] [address] [place] [address], [place] [id number] Jun, [facility] [address] [id number] [address] [place] [address], [place] [id number] Jun, [facility] [address] [id number] [address] [place] [address], [place] [id number] Jun, [facility] [address] [id number] [address] [place] [id number] Jun, [facility] [address] [id number] [address] [place] [address], [place] [id number] Jun, [facility] [address] [id number] [address] [place] [address], [place] [id number] May, [facility] [address] [id number] [address] [place] [address], [place] [id number] May, [facility] [address] [id number] [address] [place] [id number] 17 May, 2011 [facility] [address] [id number] [address] [place] [address], [place] [id number] 15 May, 2011 [facility] [address] [id number] [address] [place] [address], [place] [id number] May, [facility] [address] [id number] [address] [place] [address], [place] [id number] May, [facility] [address] [id number] [address] [place] [address], [place] [id number] Apr, [facility] [address] [id number] [address] [place] [address], [place] [id number] Apr, [facility] [address] [id number] [address] [place] [address], [place] [id number] Apr, [facility] [address] [id number] [address] [place] [address], [place] [id number] Feb, [facility] [address] [id number] [address] [place] [address], [place] [id number] Feb, [facility] [address] [id number] [address] [place] [address], [place] [id number] Oct, [facility] [address] [id number] [address] [place] [address], [place] [id number] Jul, [facility] [address] [id number] [address] [place] [address], [place] [id number] Jul, [facility] [address] [id number] [address] [place] [address], [place] [id number] Jun, [facility] [address] [id number] [address] [place] [address], [place] [id number] May, [facility] [address] [id number] [address] [place] [address], [place] [id number] May, [facility] [address] [id number] [address] [place] [address], [place] [id number] May, [facility] [address] [facility] [id number] [address] [address] Apr, [facility] [address] [facility] [id number] [address] [place] [id number] Jan, [facility] [address] [facility] [id number] [address] [address] November, IMMUNIZATIONS No Known Immunizations SOCIAL HISTORY Never Assessed REASON FOR VISIT [facility] [place] PLAN OF CARE VITAL SIGNS MEDICATIONS Medication Instructions Dosage Frequency Start Date End Date Duration S tatus ranitidine 150 mg 1 tablet 2 times per day as needed f or heartburn Jun, Active Loratadine 10 mg 1 Tablet by Oral route 2 times per day Oct, Active Wellbutrin XL 150 mg take 1 tablet by Or al route 1 time per day take with 300mg Mar, Active ProAir HFA 90 mcg/actuation inhale 2 puf fs by Inhalation route every 4 hours as needed PRN shortness of breath/cough Jun, Active Meloxicam 15 mg take 1 tablet (15 mg) by oral route once d aily Jun, Active Melatonin 5 mg 0.5 Tablet by Oral route 1 time per day at night November, Active Cipro 500 mg 1 tablet by Oral route every 12 hours for 10 day(s) Oct, Active Lisinopril 5 mg take 1 tablet (5 mg) by oral route once da hazel Jun, Active Lamictal 200 mg 1 tablet by Oral rou te 1 time per day in evening for mood stabilization. Apr, Active PredniSONE 20 mg 1 tablet by Oral route 1 time per day for 5 day(s) Feb, Active Azithromycin 250 mg 2 Tablet by Oral rou te on day 1 then take 1 daily for 4 days Mar, Active levothyroxine 88 mcg take 1 tablet (88 mcg) by oral ro lumbee once daily Jun, Active NIFEdipine 30 mg take 1 tablet (30 mg) by oral route o nce daily Jul, Active Singulair 10 mg take 1 tablet (10 mg) by oral ro lumbee once daily in the evening Jun, Active Zoloft 100 mg take 1 tablet (100 mg) by oral route once da hazel Jun, Active Topamax 200 mg take 1 tablet by Ora l route 2 times per day for mood stabilization Apr, Active Xanax 0.5 mg take 1 tablet by Ora l route Take 1 tablet 6 hours prior to dental appointment and one right before appointment Sep, Active Levaquin 500 mg 1 tablet by Oral route 1 time per day for 10 days Dec, Active BuPROPion HCl 300 mg take 1 tablet by Or al route 1 time per day take with 150mg Mar, Active Zithromax Tri-Michel 500 mg take 1 tablet ( 500 mg) by oral route once daily for 3 days Oct, Active RESULTS No Results PROCEDURES No Known [...]
--- OUTSIDE RECORDS SUMMARY | 2020-01-31 09:48 | XMS REPORT ---
Author Author Ivet Knott Doctor Organization [facility] Address Unknown Phone Unavailable Care Team Providers Care Bag Loader Name Role Phone Migration, Doctor Unavailable Unavailable PROBLEMS Type Condition ICD9-CM Code [id number] Code Onset Dates Condition S tatus SNOMED Code Problem Depression F32.9 Active 40797693 Problem Hypothyroidism E03.9 Active 95677 008 Problem GERD (gastroesophageal reflux disease) K21.9 Active 472021421 Problem Schizo affective schizophrenia F25.0 Active 912104555 Problem Osteoarthritis M19.90 Active 60277 5006 Problem Low back pain, unspecified b ack pain laterality, unspecified chronicity, with sciatica presence unspecified M54.5 Active 348510066 Problem Iron deficiency anemia, unspecified iron deficiency an emia type D50.9 Active 06983781 Problem Essential hypertension I10 Active 37150725 Problem Secondary hyperparathyroidism, not elsewhere classified E21.1 Active 80436946 Problem Anxiety F41.9 Active 77074959 Problem Bilateral carotid artery disease I77.9 Active 654177048 Problem Stage 3 chronic kidney disease N18.3 Active 570728222 Problem Fibromyalgia M79.7 Active 4130310 05 Problem Vitamin D deficiency E55.9 Active 57508773 ALLERGIES No Information ENCOUNTERS Encounter Location Date Diagnosis [facility] [id number] [place] [address] Dec, [facility] [address] [id number] [address] [place] [address] Oct, Osteoarthritis M19.90 [facility] [address] [id number] [address] [place] [address] Oct, Sore throat J02.9 and Acute nasopharyngitis J00 [facility] [address] [id number] [address] [place] [address] Sep, Osteoarthritis M19.90 [facility] [id number] [place] [address] 14 Sep, 2018 Acute non-recurrent maxillar y sinusitis J01.00 [facility] [address] [address] 18 Aug, 2018 Acute non-recurrent pansinus itis J01.40 [facility] [address] [address] Jul, Osteoarthritis M19.90 [facility] [address] [address] Jul, [place] [address] [address] Apr, Osteoarthritis M19.90 [place] [address] [address] Apr, Fibromyalgia M79.7 ; Essenti al hypertension I10 ; Encounter for immunization Z23 ; Stage 3 chronic kidney disease N18.3 and Depression F32.9 [facility] [address] [address] Dec, Fibromyalgia M79.7 ; Osteoar thritis M19.90 and Encounter for medication management Z79.899 [facility] [address] [address] November, Nausea and vomiting, intract ability of vomiting not specified, unspecified vomiting type R11.2 and Dizziness R42 [facility] [id number] [place] [address] November, Fibromyalgia M79.7 [place] [address] [address] November, Medicare annual wellness vis it, initial Z00.00 ; Anxiety F41.9 ; Depression F32.9 ; Stage 3 chronic kidney disease N18.3 ; Fibromyalgia M79.7 ; Essential hypertension I10 ; Secondary hyperparathyroidism, not elsewhere classified E21.1 ; Osteoarthritis M19.90 ; Hypothyroidism E03.9 and Encounter for immunization Z23 [facility] [id number] [place] [address] Oct, [facility] [address] [address] Oct, Sebaceous cyst L72.3 [facility] [address] [address] Sep, Low back pain, unspecified b ack pain laterality, unspecified chronicity, with sciatica presence unspecified M54.5 and Secondary hyperparathyroidism, not elsewhere classified E21.1 [place] [address] [address] Sep, Fibromyalgia M79.7 [place] [address] [address] Sep, Fibromyalgia M79.7 ; Plantar fasciitis, bilateral M72.2 ; Essential hypertension I10 ; Depression F32.9 and Epidermoid cyst L72.0 [place] [address] [address] Jul, [place] [address] [address] Jul, Fibromyalgia M79.7 ; Iron de ficiency anemia, unspecified iron deficiency anemia type D50.9 and Acute nasopharyngitis J00 [facility] [address] [address] Jun, Sore throat J02.9 and Acute serous otitis media of left ear, recurrence not specified H65.02 [facility] [address] [address] Jun, Hypothyroidism E03.9 [facility] [id number] [place] [phone] Jun, [place] [address] [address] Jun, Hypothyroidism E03.9 ; Essen tial hypertension I10 and Osteoarthritis M19.90 [facility] [address] [address] May, [facility] [address] [place] [address] May, [facility] [address] [address] Feb, [facility] [address] [address] Feb, Leonela-menopausal N95.1 and To bacco use Z72.0 [place] [address] [address] Jan, [place] [address] [address] Jan, Osteoarthritis M19.90 ; Bila teral carotid artery disease I77.9 ; Raynauds syndrome I73.00 ; Essential hypertension I10 ; Allergic rhinitis J30.9 ; Stage 3 chronic kidney disease N18.3 ; Fibromyalgia M79.7 ; Hypothyroidism E03.9 ; GERD (gastroesophageal reflux disease) K21.9 and Vitamin D deficiency E55.9 [facility] [address] [place] [address] Dec, Raynauds syndrome I73.00 ; P lantar fascial fibromatosis M72.2 ; Osteoarthritis M19.90 and Fibromyalgia M79.7 [facility] [address] [place] [address] Dec, [place] [address] [address] Dec, [facility] [id number] [place] [address] Oct, Function kidney decreased N2 8.9 [facility] [id number] [address] [place] [id number] Oct, Dental examination Z01.20 [facility] [address] [id number] [address] [place] [address] 18 Oct, 2016 Essential hypertension I10 a nd Function kidney decreased N28.9 [facility] [address] [id number] [address] [place] [id number] 04 Oct, 2016 Dental examination Z01.20 [facility] [address] [id number] [address] [place] [phone] 03 Oct, 2016 [facility] [address] [id number] [address] [place] [address] 24 Sep, 2016 Other specified disorders in volving the immune mechanism D89.89 and Schizo affective schizophrenia F25.0 [facility] [address] [id number] [address] [place] [address] Sep, Schizo affective schizophren ia F25.0 [facility] [address] [id number] [address] [place] [id number] 16 Sep, 2016 Eustachian tube dysfunction, bilateral H69.83 [facility] [address] [id number] [address] [place] [phone] 15 Sep, 2016 [facility] [address] [id number] [address] [place] [address] 14 Sep, 2016 [facility] [address] [id number] [address] [place] [address] 14 Sep, 2016 [facility] [address] [id number] [address] [place] [address] 13 Sep, 2016 Eustachian tube dysfunction, bilateral H69.83 [facility] [address] [facility] [id number] [address] [place] [address] 09 Sep, 2016 Allergic rhinitis J30.9 ; Es sential hypertension I10 ; Hypothyroidism E03.9 and Schizo affective schizophrenia F25.0 [facility] [address] [id number] [address] [place] [address] 23 Homar, 2017 Eustachian tube dysfunction, bilateral H69.83 and Visit for TB skin test Z11.1 [facility] [address] [facility] [id number] [address] [place] [address] Jul, Subacute pansinusitis J01.40 [facility] [id number] [address] [place] [address] Jun, Schizo affective schizophren ia F25.0 ; Depression F32.9 ; Allergic rhinitis J30.9 ; Raynauds syndrome I73.00 ; Essential hypertension I10 ; Slow transit constipation K59.01 ; GERD (gastroesophageal reflux disease) K21.9 ; Hypothyroidism E03.9 ; Nicotine addiction F17.200 ; Other viral agents as the cause of diseases classified elsewhere B97.89 ; Acute upper respiratory infection, unspecified J06.9 and Osteoarthritis M19.90 [facility] [address] [address] Jun, Allergic rhinitis J30.9 and GERD (gastroesophageal reflux disease) K21.9 [facility] [address] [place] [address] May, [facility] [address] [address] Mar, Schizo affective schizophren ia F25.0 [facility] [id number] [place] [address] Mar, Schizo affective schizophren ia F25.0 [facility] [address] [place] [address] 15 Mar, 2016 Schizo affective schizophren ia F25.0 [place] [address] [id number] [address] [place] [phone] 06 Mar, 2016 Acute non-recurrent maxillar y sinusitis J01.00 [facility] [address] [id number] [address] [place] [address] Feb, Schizo affective schizophren ia F25.0 [facility] [address] [address] Feb, Contact dermatitis and eczem a L25.9 [place] [address] [address] Jan, [place] [address] [address] Jan, Schizo affective schizophren ia F25.0 ; Slow transit constipation K59.01 ; Essential hypertension I10 ; GERD (gastroesophageal reflux disease) K21.9 ; Hypothyroidism E03.9 ; Osteoarthritis M19.90 ; Low back pain, unspecified back pain laterality, unspecified chronicity, with sciatica presence unspecified M54.5 and Bilateral carotid artery disease I77.9 [place] [address] [address] Oct, [place] [address] [address] Sep, Hypothyroid E03.9 [place] [address] [address] Sep, Schizo affective schizophren ia F25.0 ; Depression F32.9 ; Anxiety F41.9 ; Allergic rhinitis J30.9 ; Raynauds syndrome I73.00 ; Insomnia G47.00 ; Essential hypertension I10 ; GERD (gastroesophageal reflux disease) K21.9 ; Hypothyroidism E03.9 and Vitamin D deficiency E55.9 [place] [address] [address] Sep, [place] [address] [address] Sep, [place] [address] [address] Aug, Allergic rhinitis J30.9 ; De pression F32.9 ; Anxiety F41.9 ; Raynauds syndrome I73.00 ; Insomnia G47.00 and GERD (gastroesophageal reflux disease) K21.9 [place] [id number] [place] [address] Aug, MONICA (secretory otitis media) H65.90 and Raynauds syndrome I73.00 [facility] [address] [place] [address] Jul, Acute otitis externa of both ears, unspecified type H60.503 [facility] [address] [address] Jun, [place] [address] [address] Jun, Essential hypertension I10 ; Allergic rhinitis J30.9 ; Hypothyroidism E03.9 and Osteoarthritis M19.90 [place] [address] [address] Jun, Routine adult health mainten ance Z00.00 ; Hypothyroidism E03.9 ; Essential hypertension I10 ; Insomnia G47.00 ; Nicotine addiction F17.200 ; Raynauds syndrome I73.00 ; GERD (gastroesophageal reflux disease) K21.9 ; Allergic rhinitis J30.9 ; Anxiety F41.9 ; Depression F32.9 and Schizo affective schizophrenia F25.0 [place] [address] [id number] [place] [address] May, Upper respiratory tract infe ction, unspecified type J06.9 [facility] [address] [place] [address] Mar, [facility] [address] [id number] [id number] Mar, [place] [address] [id number] [place] [address] Mar, [place] [address] [id number] [place] [address] Mar, [place] [address] [place] [id number] [place] [address] 25 Aug, 2015 Jaw pain 784.92 and Environm ental and seasonal allergies 477.8 [facility] [address] [id number] [address] [place] [address], [place] [address] Feb, [facility] [address] [id number] [address] [place] [address] Oct, [facility] [address] [id number] [address] [place] [address], [place] [address] Oct, [facility] [address] [id number] [address] [place] [phone] Oct, [facility] [address] [id number] [address] [place] [address], [place] [address] Oct, [facility] [address] [id number] [address] [place] [address] Sep, [facility] [address] [id number] [address] [place] [address] Sep, [facility] [address] [id number] [address] [place] [address] Jul, [facility] [address] [id number] [address] [place] [address] Jul, [facility] [address] [id number] [address] [place] [address] Jul, [facility] [address] [id number] [address] [place] [address] Jul, [facility] [address] [id number] [address] [place] [address] Jul, [facility] [address] [id number] [address] [place] [address] Jul, [facility] [address] [id number] [address] [place] [address] Jul, [facility] [address] [id number] [address] [place] [address] Jun, [facility] [address] [id number] [address] [place] [address], [place] [address] 31 Jun, 2014 [facility] [address] [id number] [address] [place] [address], [place] [address] 22 Jun, 2014 [facility] [address] [id number] [address] [place] [address], [place] [address] 18 Jun, 2014 [facility] [address] [id number] [address] [place] [address], [place] [address] 17 Jun, 2014 [facility] [address] [id number] [address] [place] [address], [place] [address] 17 Jun, 2014 [facility] [address] [id number] [address] [place] [address], [place] [address] 16 Jun, 2014 [facility] [address] [id number] [address] [place] [address], [place] [address] 16 Jun, 2014 [facility] [address] [id number] [address] [place] [address], [place] [address] 30 Apr, 2014 [facility] [address] [id number] [address] [place] [address], [place] [address] 30 Apr, 2014 [facility] [address] [id number] [address] [place] [address], [place] [address] 17 Mar, 2014 [facility] [address] [id number] [address] [place] [address], [place] [address] 17 Mar, 2014 [facility] [address] [id number] [address] [place] [address], [place] [address] 03 Mar, 2014 [facility] [address] [id number] [address] [place] [address], [place] [address] 03 Mar, 2014 [facility] [address] [id number] [address] [place] [address], [place] [address] 16 Jan, 2014 [facility] [address] [id number] [address] [place] [address], [place] [address] 16 Jan, 2014 [facility] [address] [id number] [address] [place] [address], [place] [address] Oct, [facility] [address] [id number] [address] [place] [address], [place] [address] Oct, [facility] [address] [id number] [address] [place] [address], [place] [address] Sep, [facility] [address] [id number] [address] [place] [address], [place] [address] Sep, [facility] [address] [id number] [address] [place] [address], [place] [address] Sep, [facility] [address] [id number] [address] [place] [address], [place] [address] Sep, [facility] [address] [id number] [address] [place] [address], [place] [address] Sep, [facility] [address] [id number] [address] [place] [address], [place] [id number] Sep, [facility] [address] [id number] [address] [place] [address], [place] [address] Aug, [facility] [address] [id number] [address] [place] [address], [place] [address] Aug, [facility] [address] [id number] [address] [place] [address], [place] [address] Jul, [facility] [address] [id number] [address] [place] [address], [place] [address] Jul, [facility] [address] [id number] [address] [place] [address], [place] [address] Jul, [facility] [address] [id number] [address] [place] [address], [place] [address] Jul, [facility] [address] [id number] [address] [place] [address], [place] [address] Jun, [facility] [address] [id number] [address] [place] [address], [place] [address] Jun, [facility] [address] [id number] [address] [place] [address], [place] [address] May, [facility] [address] [id number] [address] [place] [address], [place] [address] May, [facility] [address] [id number] [address] [place] [address], [place] [address] Apr, [facility] [address] [id number] [address] [place] [address], [place] [address] Apr, [facility] [address] [id number] [address] [place] [address], [place] [address] Apr, [facility] [address] [id number] [address] [place] [address], [place] [address] Apr, [facility] [address] [id number] [address] [place] [address], [place] [address] Apr, [facility] [address] [id number] [address] [place] [address], [place] [address] Apr, [facility] [address] [id number] [address] [place] [address], [place] [address] 24 Mar, 2013 [facility] [address] [id number] [address] [place] [address], [place] [address] Mar, [facility] [address] [id number] [address] [place] [address], [place] [address] Mar, [facility] [address] [id number] [address] [place] [address], [place] [address] Mar, [facility] [address] [id number] [address] [place] [address], [place] [address] Mar, [facility] [address] [id number] [address] [place] [address], [place] [address] Feb, [facility] [address] [id number] [address] [place] [address], [place] [address] Feb, [facility] [address] [id number] [address] [place] [address], [place] [address] Feb, [facility] [address] [id number] [address] [place] [address], [place] [address] 08 Feb, 2013 [facility] [address] [id number] [address] [place] [address], [place] [address] 18 Jan, 2013 [facility] [address] [id number] [address] [place] [address], [place] [address] 17 Jan, 2013 [facility] [address] [id number] [address] [place] [address], [place] [id number] 16 Jan, 2013 [facility] [address] [id number] [address] [place] [address], [place] [id number] Jan, [facility] [address] [id number] [address] [place] [address], [place] [id number] Jan, [facility] [address] [id number] [address] [place] [address], [place] [id number] Jan, [facility] [address] [id number] [address] [place] [address], [place] [id number] 27 Dec, 2012 [facility] [address] [id number] [address] [place] [address], [place] [id number] 25 Dec, 2012 [facility] [address] [id number] [address] [place] [address], [place] [id number] Dec, [facility] [address] [id number] [address] [place] [address], [place] [id number] 14 Dec, 2012 [facility] [address] [id number] [address] [place] [address], [place] [id number] 13 Dec, 2012 [facility] [address] [id number] [address] [place] [address], [place] [id number] 12 Dec, 2012 [facility] [address] [id number] [address] [place] [address], [place] [id number] 11 Dec, 2012 [facility] [address] [id number] [address] [place] [address], [place] [id number] 07 Dec, 2012 [facility] [address] [id number] [address] [place] [address], [place] [id number] Dec, [facility] [address] [id number] [address] [place] [address], [place] [id number] Dec, [facility] [address] [id number] [address] [place] [address], [place] [id number] November, [facility] [address] [id number] [address] [place] [address], [place] [id number] November, [facility] [address] [id number] [address] [place] [address], [place] [id number] November, [facility] [address] [id number] [address] [place] [address], [place] [id number] November, [facility] [address] [id number] [address] [place] [address], [place] [address] November, [facility] [address] [id number] [address] [place] [address], [place] [address] Oct, [facility] [address] [id number] [address] [place] [address], [place] [id number] Oct, [facility] [address] [id number] [address] [place] [address], [place] [id number] Oct, [facility] [address] [id number] [address] [place] [address], [place] [id number] Oct, [facility] [address] [id number] [address] [place] [address], [place] [id number] Oct, [facility] [address] [id number] [address] [place] [address], [place] [id number] Sep, [facility] [address] [id number] [address] [place] [address], [place] [id number] Sep, [facility] [address] [id number] [address] [place] [address], [place] [address] Sep, [facility] [address] [id number] [address] [place] [address], [place] [address] Sep, [facility] [address] [id number] [address] [place] [address], [place] [id number] 26 Aug, 2012 [facility] [address] [id number] [address] [place] [address], [place] [id number] 18 Aug, 2012 [facility] [address] [id number] [address] [place] [address], [place] [id number] 18 Aug, 2012 [facility] [address] [id number] [address] [place] [address], [place] [id number] 15 Aug, 2012 [facility] [address] [id number] [address] [place] [address], [place] [id number] 17 Jun, 2012 [facility] [address] [id number] [address] [place] [address], [place] [id number] Jun, [facility] [address] [id number] [address] [place] [address], [place] [address] Jun, [facility] [address] [id number] [address] [place] [address], [place] [address] Jun, [facility] [address] [id number] [address] [place] [address], [place] [address] Jun, [facility] [address] [id number] [address] [place] [address], [place] [id number] Jun, [facility] [address] [id number] [address] [place] [address], [place] [address] Jun, [facility] [address] [id number] [address] [place] [address], [place] [id number] Jun, [facility] [address] [id number] [address] [place] [address], [place] [address] Jun, [facility] [address] [id number] [address] [place] [address], [place] [id number] Jun, [facility] [address] [id number] [address] [place] [address], [place] [id number] May, [facility] [address] [id number] [address] [place] [address], [place] [id number] May, [facility] [address] [id number] [address] [place] [address], [place] [id number] 27 May, 2012 [facility] [address] [id number] [address] [place] [address], [place] [address] May, [facility] [address] [id number] [address] [place] [address], [place] [address] May, [facility] [address] [id number] [address] [place] [address], [place] [id number] 16 May, 2012 [facility] [address] [id number] [address] [place] [address], [place] [id number] 16 May, 2012 [facility] [address] [id number] [address] [place] [address], [place] [id number] 14 May, 2012 [facility] [address] [id number] [address] [place] [address], [place] [address] May, [facility] [address] [id number] [address] [place] [address], [place] [id number] 30 Apr, 2012 [facility] [address] [id number] [address] [place] [address], [place] [id number] 30 Apr, 2012 [facility] [address] [id number] [address] [place] [address], [place] [id number] 17 Apr, 2012 [facility] [address] [id number] [address] [place] [address], [place] [id number] 17 Apr, 2012 [facility] [address] [id number] [address] [place] [id number] 09 Apr, 2012 [facility] [address] [id number] [address] [place] [address], [place] [id number] 18 Mar, 2012 [facility] [address] [id number] [address] [place] [address], [place] [id number] 17 Sep2011 [facility] [address] [id number] [address] [place] [address], [place] [id number] 07 Mar, 2012 [facility] [address] [id number] [address] [place] [address], [place] [id number] Feb, [facility] [address] [id number] [address] [place] [address], [place] [id number] Feb, [facility] [address] [id number] [address] [place] [address], [place] [id number] Feb, [facility] [address] [id number] [address] [place] [address], [place] [address] Feb, [facility] [address] [id number] [address] [place] [address], [place] [address] Jan, [facility] [address] [id number] [address] [place] [address], [place] [address] Jan, [facility] [address] [id number] [address] [place] [address], [place] [id number] Jan, [facility] [address] [id number] [address] [place] [address], [place] [address] Jan, [facility] [address] [id number] [address] [place] [address], [place] [id number] Jan, [facility] [address] [id number] [address] [place] [address], [place] [address] Jan, [facility] [address] [id number] [address] [place] [address], [place] [address] Dec, [facility] [address] [id number] [address] [place] [address], [place] [address] Dec, [facility] [address] [id number] [address] [place] [address], [place] [address] Dec, [facility] [address] [id number] [address] [place] [address], [place] [id number] November, [facility] [address] [id number] [address] [place] [address], [place] [address] November, [facility] [address] [id number] [address] [place] [address], [place] [address] November, [facility] [address] [id number] [address] [place] [address], [place] [address] November, [facility] [address] [id number] [address] [place] [address], [place] [address] Oct, [facility] [address] [id number] [address] [place] [address], [place] [address] Oct, [facility] [address] [id number] [address] [place] [address], [place] [address] Oct, [facility] [address] [id number] [address] [place] [address], [place] [address] Sep, [facility] [address] [id number] [address] [place] [address], [place] [address] Sep, [facility] [address] [id number] [address] [place] [address], [place] [address] Aug, [facility] [address] [id number] [address] [place] [address], [place] [address] Aug, [facility] [address] [id number] [address] [place] [address], [place] [address] Aug, [facility] [address] [id number] [address] [place] [address], [place] [id number] Aug, [facility] [address] [id number] [address] [place] [address], [place] [address] Jul, [facility] [address] [id number] [address] [place] [address], [place] [id number] Jul, [facility] [address] [id number] [address] [place] [address], [place] [id number] Jul, [facility] [address] [id number] [address] [place] [address], [place] [id number] Jul, [facility] [address] [id number] [address] [place] [address], [place] [address] Jul, [facility] [address] [id number] [address] [place] [address], [place] [id number] 05 Jul, 2011 [facility] [address] [id number] [address] [place] [address], [place] [id number] 05 Jul, 2011 [facility] [address] [id number] [address] [place] [address], [place] [id number] Jul, [facility] [address] [id number] [address] [place] [address], [place] [id number] 30 Jun, 2011 [facility] [address] [id number] [address] [place] [address], [place] [id number] 26 Jun, 2011 [facility] [address] [id number] [address] [place] [address], [place] [id number] Jun, [facility] [address] [id number] [address] [place] [address], [place] [id number] 08 Jun, 2011 [facility] [address] [id number] [address] [place] [address], [place] [address] Jun, [facility] [address] [id number] [address] [place] [address], [place] [address] May, [facility] [address] [id number] [address] [place] [address], [place] [id number] May, [facility] [address] [id number] [address] [place] [address], [place] [id number] 17 May, 2011 [facility] [address] [id number] [address] [place] [address], [place] [id number] 15 May, 2011 [facility] [address] [id number] [address] [place] [address], [place] [address] May, [facility] [address] [id number] [address] [place] [address], [place] [id number] 08 May, 2011 [facility] [address] [id number] [address] [place] [address], [place] [id number] 19 Apr, 2011 [facility] [address] [id number] [address] [place] [address], [place] [id number] 13 Apr, 2011 [facility] [address] [id number] [address] [place] [id number] Apr, [facility] [address] [id number] [address] [place] [id number] Feb, [facility] [address] [id number] [address] [place] [id number] Feb, [facility] [address] [id number] [address] [place] [id number] Oct, [facility] [address] [id number] [address] [place] [id number] Jul, [facility] [address] [id number] [address] [place] [id number] Jul, [facility] [address] [id number] [address] [place] [id number] Jun, [facility] [address] [id number] [address] [place] [id number] May, [facility] [address] [id number] [address] [place] [id number] May, [facility] [address] [id number] [address] [place] [id number] May, [facility] [address] [id number] [address] [place] [id number] Apr, [facility] [address] [id number] [address] [place] [id number] Jan, [facility] [address] [id number] [address] [place] [id number] November, IMMUNIZATIONS No Known Immunizations SOCIAL HISTORY Never Assessed REASON FOR VISIT EMR-[facility] [place] PLAN OF CARE VITAL SIGNS MEDICATIONS Unknown [...]
--- OUTSIDE RECORDS SUMMARY | 2020-01-31 09:48 | XMS REPORT ---
Author Author Ivet Knott Doctor Organization [facility] Address Unknown Phone Unavailable Care Team Providers Care Animation Artist Name Role Phone Migration, Doctor Unavailable Unavailable PROBLEMS Type Condition ICD9-CM Code YLC15-RD Code Onset Dates Condition S tatus SNOMED Code Problem Depression F32.9 Active 10407080 Problem Hypothyroidism E03.9 Active 46897 008 Problem GERD (gastroesophageal reflux disease) K21.9 Active 709114859 Problem Schizo affective schizophrenia F25.0 Active 690812923 Problem Osteoarthritis M19.90 Active 40863 5006 Problem Low back pain, unspecified b ack pain laterality, unspecified chronicity, with sciatica presence unspecified M54.5 Active 758174280 Problem Iron deficiency anemia, unspecified iron deficiency an emia type D50.9 Active 67099033 Problem Essential hypertension I10 Active 47266849 Problem Secondary hyperparathyroidism, not elsewhere classified E21.1 Active 43359129 Problem Anxiety F41.9 Active 07243676 Problem Bilateral carotid artery disease I77.9 Active 416359239 Problem Stage 3 chronic kidney disease N18.3 Active 473763683 Problem Fibromyalgia M79.7 Active 3679782 05 Problem Vitamin D deficiency E55.9 Active 77967186 ALLERGIES No Information ENCOUNTERS Encounter Location Date Diagnosis [facility] [address] [place] [address] Dec, [facility] [id number] [place] [address] Oct, Osteoarthritis M19.90 [facility] [id number] [place] [address] Oct, Sore throat J02.9 and Acute nasopharyngitis J00 [facility] [address] [id number] [address] [place] [address] Sep, Osteoarthritis M19.90 [facility] [id number] [place] [address] 14 Sep, 2018 Acute non-recurrent maxillar y sinusitis J01.00 [facility] [address] [address] 18 Aug, 2018 Acute non-recurrent pansinus itis J01.40 [facility] [address] [address] Jul, Osteoarthritis M19.90 [facility] [address] [address] Jul, [place] [address] [address] Apr, Osteoarthritis M19.90 [place] [address] [address] Apr, Fibromyalgia M79.7 ; Essenti al hypertension I10 ; Encounter for immunization Z23 ; Stage 3 chronic kidney disease N18.3 and Depression F32.9 [facility] [address] [address] Dec, Fibromyalgia M79.7 ; Osteoar thritis M19.90 and Encounter for medication management Z79.899 [facility] [address] [address] November, Nausea and vomiting, intract ability of vomiting not specified, unspecified vomiting type R11.2 and Dizziness R42 [facility] [id number] [place] [address] November, Fibromyalgia M79.7 [place] [address] [address] November, Medicare annual wellness vis it, initial Z00.00 ; Anxiety F41.9 ; Depression F32.9 ; Stage 3 chronic kidney disease N18.3 ; Fibromyalgia M79.7 ; Essential hypertension I10 ; Secondary hyperparathyroidism, not elsewhere classified E21.1 ; Osteoarthritis M19.90 ; Hypothyroidism E03.9 and Encounter for immunization Z23 [facility] [id number] [place] [address] Oct, [facility] [address] [address] Oct, Sebaceous cyst L72.3 [facility] [address] [address] Sep, Low back pain, unspecified b ack pain laterality, unspecified chronicity, with sciatica presence unspecified M54.5 and Secondary hyperparathyroidism, not elsewhere classified E21.1 [place] [address] [address] Sep, Fibromyalgia M79.7 [place] [address] [address] Sep, Fibromyalgia M79.7 ; Plantar fasciitis, bilateral M72.2 ; Essential hypertension I10 ; Depression F32.9 and Epidermoid cyst L72.0 [place] [address] [address] Jul, [place] [address] [address] Jul, Fibromyalgia M79.7 ; Iron de ficiency anemia, unspecified iron deficiency anemia type D50.9 and Acute nasopharyngitis J[address] [facility] [address] [address] Jun, Sore throat J02.9 and Acute serous otitis media of left ear, recurrence not specified H65.02 [facility] [address] [address] Jun, Hypothyroidism E03.9 [facility] [id number] [place] [address] Jun, [place] [address] [address] Jun, Hypothyroidism E03.9 ; Essen tial hypertension I10 and Osteoarthritis M19.90 [facility] [address] [address] May, [facility] [address] [place] [address] May, [facility] [address] [address] Feb, [facility] [address] [address] Feb, Leonela-menopausal N95.1 and To bacco use Z72.0 [place] [address] [address] Jan, [place] [address] [address] Jan, Osteoarthritis M19.90 ; Bila teral carotid artery disease I77.9 ; Raynauds syndrome I73.00 ; Essential hypertension I10 ; Allergic rhinitis J30.9 ; Stage 3 chronic kidney disease N18.3 ; Fibromyalgia M79.7 ; Hypothyroidism E03.9 ; GERD (gastroesophageal reflux disease) K21.9 and Vitamin D deficiency E55.9 [facility] [address] [place] [address] Dec, Raynauds syndrome I73.00 ; P lantar fascial fibromatosis M72.2 ; Osteoarthritis M19.90 and Fibromyalgia M79.7 [facility] [address] [place] [address] Dec, [place] [address] [address] Dec, [facility] [id number] [place] [address] Oct, Function kidney decreased N2 8.9 [facility] [address] [id number] [address] [place] [id number] Oct, Dental examination Z01.20 [facility] [address] [id number] [address] [place] [address] 18 Oct, 2016 Essential hypertension I10 a nd Function kidney decreased N28.9 [facility] [address] [id number] [address] [place] [id number] 04 Oct, 2016 Dental examination Z01.20 [facility] [address] [id number] [address] [place] [address] 03 Oct, 2016 [facility] [address] [id number] [address] [place] [address] 24 Sep, 2016 Other specified disorders in volving the immune mechanism D89.89 and Schizo affective schizophrenia F25.0 [facility] [address] [id number] [address] [place] [address] Sep, Schizo affective schizophren ia F25.0 [facility] [address] [id number] [address] [place] [address] 16 Sep, 2016 Eustachian tube dysfunction, bilateral H69.83 [facility] [address] [id number] [address] [place] [address] 15 Sep, 2016 [facility] [address] [id number] [address] [place] [address] 14 Sep, 2016 [facility] [address] [id number] [address] [place] [address] 14 Sep, 2016 [facility] [address] [id number] [address] [place] [address] 13 Sep, 2016 Eustachian tube dysfunction, bilateral H69.83 [facility] [address] [facility] [id number] [address] [place] [address] 09 Sep, 2016 Allergic rhinitis J30.9 ; Es sential hypertension I10 ; Hypothyroidism E03.9 and Schizo affective schizophrenia F25.0 [facility] [address] [id number] [address] [place] [address] 23 Homar, 2017 Eustachian tube dysfunction, bilateral H69.83 and Visit for TB skin test Z11.1 [facility] [address] [facility] [id number] [address] [place] [address] Jul, Subacute pansinusitis J01.40 [facility] [address] [id number] [address] [place] [address] Jun, Schizo affective schizophren ia F25.0 ; Depression F32.9 ; Allergic rhinitis J30.9 ; Raynauds syndrome I73.00 ; Essential hypertension I10 ; Slow transit constipation K59.01 ; GERD (gastroesophageal reflux disease) K21.9 ; Hypothyroidism E03.9 ; Nicotine addiction F17.200 ; Other viral agents as the cause of diseases classified elsewhere B97.89 ; Acute upper respiratory infection, unspecified J06.9 and Osteoarthritis M19.90 [facility] [address] [address] Jun, Allergic rhinitis J30.9 and GERD (gastroesophageal reflux disease) K21.9 [facility] [address] [place] [address] May, [facility] [address] [address] Mar, Schizo affective schizophren ia F25.0 [facility] [id number] [place] [address] Mar, Schizo affective schizophren ia F25.0 [facility] [address] [place] [address] 15 Mar, 2016 Schizo affective schizophren ia F25.0 [place] [address] [id number] [address] [place] [address] 06 Mar, 2016 Acute non-recurrent maxillar y sinusitis J01.00 [facility] [address] [id number] [address] [place] [address] Feb, Schizo affective schizophren ia F25.0 [facility] [address] [address] [address] Feb, Contact dermatitis and eczem a L25.9 [place] [address] [address] Jan, [place] [address] [address] Jan, Schizo affective schizophren ia F25.0 ; Slow transit constipation K59.01 ; Essential hypertension I10 ; GERD (gastroesophageal reflux disease) K21.9 ; Hypothyroidism E03.9 ; Osteoarthritis M19.90 ; Low back pain, unspecified back pain laterality, unspecified chronicity, with sciatica presence unspecified M54.5 and Bilateral carotid artery disease I77.9 [place] [address] [address] Oct, [place] [address] [address] Sep, Hypothyroid E03.9 [place] [address] [address] Sep, Schizo affective schizophren ia F25.0 ; Depression F32.9 ; Anxiety F41.9 ; Allergic rhinitis J30.9 ; Raynauds syndrome I73.00 ; Insomnia G47.00 ; Essential hypertension I10 ; GERD (gastroesophageal reflux disease) K21.9 ; Hypothyroidism E03.9 and Vitamin D deficiency E55.9 [place] [address] [address] Sep, [place] [address] [address] Sep, [place] [address] [address] Aug, Allergic rhinitis J30.9 ; De pression F32.9 ; Anxiety F41.9 ; Raynauds syndrome I73.00 ; Insomnia G47.00 and GERD (gastroesophageal reflux disease) K21.9 [place] [id number] [place] [address] Aug, MONICA (secretory otitis media) H65.90 and Raynauds syndrome I73.00 [facility] [address] [place] [address] Jul, Acute otitis externa of both ears, unspecified type H60.503 [facility] [address] [address] Jun, [place] [address] [address] Jun, Essential hypertension I10 ; Allergic rhinitis J30.9 ; Hypothyroidism E03.9 and Osteoarthritis M19.90 [place] [address] [address] Jun, Routine adult health mainten ance Z00.00 ; Hypothyroidism E03.9 ; Essential hypertension I10 ; Insomnia G47.00 ; Nicotine addiction F17.200 ; Raynauds syndrome I73.00 ; GERD (gastroesophageal reflux disease) K21.9 ; Allergic rhinitis J30.9 ; Anxiety F41.9 ; Depression F32.9 and Schizo affective schizophrenia F25.0 [place] [id number] [place] [address] May, Upper respiratory tract infe ction, unspecified type J06.9 [facility] [address] [place] [address] Mar, [facility] [id number] [id number] Mar, [place] [id number] [place] [address] Mar, [place] [id number] [place] [address] Mar, [place] [id number] [place] [address] 25 Aug, 2015 Jaw pain 784.92 and Environm ental and seasonal allergies 477.8 [facility] [address] [id number] [address] [place] [address], [place] [address] Feb, [facility] [address] [id number] [address] [place] [address] Oct, [facility] [address] [id number] [address] [place] [address], [place] [address] Oct, [facility] [address] [id number] [address] [place] [address] Oct, [facility] [address] [id number] [address] [place] [address], [place] [address] Oct, [facility] [address] [id number] [address] [place] [address] Sep, [facility] [address] [id number] [address] [place] [address] Sep, [facility] [address] [id number] [address] [place] [address] Jul, [facility] [address] [id number] [address] [place] [address] Jul, [facility] [address] [id number] [address] [place] [address] Jul, [facility] [address] [id number] [address] [place] [address] Jul, [facility] [address] [id number] [address] [place] [address] Jul, [facility] [address] [id number] [address] [place] [address] Jul, [facility] [address] [id number] [address] [place] [address] Jul, [facility] [address] [id number] [address] [place] [address] Jun, [facility] [address] [id number] [address] [place] [address], [place] [address] 31 Jun, 2014 [facility] [address] [id number] [address] [place] [address], [place] [address] 22 Jun, 2014 [facility] [address] [id number] [address] [place] [address], [place] [address] 18 Jun, 2014 [facility] [address] [id number] [address] [place] [address], [place] [address] 17 Jun, 2014 [facility] [address] [id number] [address] [place] [address], [place] [address] 17 Jun, 2014 [facility] [address] [id number] [address] [place] [address], [place] [address] 16 Jun, 2014 [facility] [address] [id number] [address] [place] [address], [place] [address] 16 Jun, 2014 [facility] [address] [id number] [address] [place] [address], [place] [address] 30 Apr, 2014 [facility] [address] [id number] [address] [place] [address], [place] [address] 30 Apr, 2014 [facility] [address] [id number] [address] [place] [address], [place] [address] 17 Mar, 2014 [facility] [address] [id number] [address] [place] [address], [place] [address] 17 Mar, 2014 [facility] [address] [id number] [address] [place] [address], [place] [address] 03 Mar, 2014 [facility] [address] [id number] [address] [place] [address], [place] [address] 03 Mar, 2014 [facility] [address] [id number] [address] [place] [address], [place] [address] 16 Jan, 2014 [facility] [address] [id number] [address] [place] [address], [place] [address] 16 Jan, 2014 [facility] [address] [id number] [address] [place] [address], [place] [address] Oct, [facility] [address] [id number] [address] [place] [address], [place] [address] Oct, [facility] [address] [id number] [address] [place] [address], [place] [address] Sep, [facility] [address] [id number] [address] [place] [address], [place] [address] Sep, [facility] [address] [id number] [address] [place] [address], [place] [address] Sep, [facility] [address] [id number] [address] [place] [address], [place] [address] Sep, [facility] [address] [id number] [address] [place] [address], [place] [address] Sep, [facility] [address] [id number] [address] [place] [address], [place] [address] Sep, [facility] [address] [id number] [address] [place] [address], [place] [address] Aug, [facility] [address] [id number] [address] [place] [address], [place] [address] Aug, [facility] [address] [id number] [address] [place] [address], [place] [address] Jul, [facility] [address] [id number] [address] [place] [address], [place] [address] Jul, [facility] [address] [id number] [address] [place] [address], [place] [address] Jul, [facility] [address] [id number] [address] [place] [address], [place] [address] Jul, [facility] [address] [id number] [address] [place] [address], [place] [address] Jun, [facility] [address] [id number] [address] [place] [address], [place] [address] Jun, [facility] [address] [id number] [address] [place] [address], [place] [address] May, [facility] [address] [id number] [address] [place] [address], [place] [address] May, [facility] [address] [id number] [address] [place] [address], [place] [address] Apr, [facility] [address] [id number] [address] [place] [address], [place] [address] Apr, [facility] [address] [id number] [address] [place] [address], [place] [address] Apr, [facility] [address] [id number] [address] [place] [address], [place] [address] Apr, [facility] [address] [id number] [address] [place] [address], [place] [address] Apr, [facility] [address] [id number] [address] [place] [address], [place] [address] Apr, [facility] [address] [id number] [address] [place] [address], [place] [address] 24 Mar, 2013 [facility] [address] [id number] [address] [place] [address], [place] [address] Mar, [facility] [address] [id number] [address] [place] [address], [place] [address] Mar, [facility] [address] [id number] [address] [place] [address], [place] [address] Mar, [facility] [address] [id number] [address] [place] [address], [place] [address] Mar, [facility] [address] [id number] [address] [place] [address], [place] [address] Feb, [facility] [address] [id number] [address] [place] [address], [place] [address] Feb, [facility] [address] [id number] [address] [place] [address], [place] [address] Feb, [facility] [address] [id number] [address] [place] [address], [place] [address] 08 Feb, 2013 [facility] [address] [id number] [address] [place] [address], [place] [address] 18 Jan, 2013 [facility] [address] [id number] [address] [place] [address], [place] [address] 17 Jan, 2013 [facility] [address] [id number] [address] [place] [address], [place] [address] 16 Jan, 2013 [facility] [address] [id number] [address] [place] [address], [place] [address] Jan, [facility] [address] [id number] [address] [place] [address], [place] [address] Jan, [facility] [address] [id number] [address] [place] [address], [place] [address] Jan, [facility] [address] [id number] [address] [place] [address], [place] [address] 27 Dec, 2012 [facility] [address] [id number] [address] [place] [address], [place] [id number] 25 Dec, 2012 [facility] [address] [id number] [address] [place] [address], [place] [address] Dec, [facility] [address] [id number] [address] [place] [address], [place] [address] 14 Dec, 2012 [facility] [address] [id number] [address] [place] [address], [place] [id number] 13 Dec, 2012 [facility] [address] [id number] [address] [place] [address], [place] [address] 12 Dec, 2012 [facility] [address] [id number] [address] [place] [address], [place] [address] 11 Dec, 2012 [facility] [address] [id number] [address] [place] [address], [place] [address] 07 Dec, 2012 [facility] [address] [id number] [address] [place] [address], [place] [address] Dec, [facility] [address] [id number] [address] [place] [address], [place] [address] Dec, [facility] [address] [id number] [address] [place] [address], [place] [address] November, [facility] [address] [id number] [address] [place] [address], [place] [address] November, [facility] [address] [id number] [address] [place] [address], [place] [id number] November, [facility] [address] [id number] [address] [place] [address], [place] [address] November, [facility] [address] [id number] [address] [place] [address], [place] [address] November, [facility] [address] [id number] [address] [place] [address], [place] [address] Oct, [facility] [address] [id number] [address] [place] [address], [place] [address] Oct, [facility] [address] [id number] [address] [place] [address], [place] [address] Oct, [facility] [address] [id number] [address] [place] [address], [place] [address] Oct, [facility] [address] [id number] [address] [place] [address], [place] [address] Oct, [facility] [address] [id number] [address] [place] [address], [place] [address] Sep, [facility] [address] [id number] [address] [place] [address], [place] [address] Sep, [facility] [address] [id number] [address] [place] [address], [place] [address] Sep, [facility] [address] [id number] [address] [place] [address], [place] [address] Sep, [facility] [address] [id number] [address] [place] [address], [place] [address] 26 Aug, 2012 [facility] [address] [id number] [address] [place] [address], [place] [address] 18 Aug, 2012 [facility] [address] [id number] [address] [place] [address], [place] [address] 18 Aug, 2012 [facility] [address] [id number] [address] [place] [address], [place] [address] 15 Aug, 2012 [facility] [address] [id number] [address] [place] [address], [place] [address] 17 Jun, 2012 [facility] [address] [id number] [address] [place] [address], [place] [address] Jun, [facility] [address] [id number] [address] [place] [address], [place] [address] Jun, [facility] [address] [id number] [address] [place] [address], [place] [address] Jun, [facility] [address] [id number] [address] [place] [address], [place] [address] Jun, [facility] [address] [id number] [address] [place] [address], [place] [address] Jun, [facility] [address] [id number] [address] [place] [address], [place] [address] Jun, [facility] [address] [id number] [address] [place] [address], [place] [address] Jun, [facility] [address] [id number] [address] [place] [address], [place] [address] Jun, [facility] [address] [id number] [address] [place] [address], [place] [address] Jun, [facility] [address] [id number] [address] [place] [address], [place] [address] May, [facility] [address] [id number] [address] [place] [address], [place] [address] May, [facility] [address] [id number] [address] [place] [address], [place] [address] 27 May, 2012 [facility] [address] [id number] [address] [place] [address], [place] [address] May, [facility] [address] [id number] [address] [place] [address], [place] [address] May, [facility] [address] [id number] [address] [place] [address], [place] [address] 16 May, 2012 [facility] [address] [id number] [address] [place] [address], [place] [address] 16 May, 2012 [facility] [address] [id number] [address] [place] [address], [place] [address] 14 May, 2012 [facility] [address] [id number] [address] [place] [address], [place] [address] May, [facility] [address] [id number] [address] [place] [address], [place] [address] 30 Apr, 2012 [facility] [address] [id number] [address] [place] [address], [place] [address] 30 Apr, 2012 [facility] [address] [id number] [address] [place] [address], [place] [address] 17 Apr, 2012 [facility] [address] [id number] [address] [place] [address], [place] [address] 17 Apr, 2012 [facility] [address] [id number] [address] [place] [address] 09 Apr, 2012 [facility] [address] [id number] [address] [place] [address], [place] [address] 18 Mar, 2012 [facility] [address] [id number] [address] [place] [address] [address] 17 Sep2011 [facility] [address] [id number] [address] [place] [address], [place] [address] 07 Mar, 2012 [facility] [address] [id number] [address] [place] [address], [place] [address] Feb, [facility] [address] [id number] [address] [place] [address], [place] [address] Feb, [facility] [address] [id number] [address] [place] [address], [place] [address] Feb, [facility] [address] [id number] [address] [place] [address], [place] [address] Feb, [facility] [address] [id number] [address] [place] [address], [place] [address] Jan, [facility] [address] [id number] [address] [place] [address], [place] [address] Jan, [facility] [address] [id number] [address] [place] [address], [place] [address] Jan, [facility] [address] [id number] [address] [place] [address], [place] [address] Jan, [facility] [address] [id number] [address] [place] [address], [place] [address] Jan, [facility] [address] [id number] [address] [place] [address], [place] [address] Jan, [facility] [address] [id number] [address] [place] [address], [place] [address] Dec, [facility] [address] [id number] [address] [place] [address], [place] [address] Dec, [facility] [address] [id number] [address] [place] [address], [place] [address] Dec, [facility] [address] [id number] [address] [place] [address], [place] [address] November, [facility] [address] [id number] [address] [place] [address], [place] [address] November, [facility] [address] [id number] [address] [place] [address], [place] [address] November, [facility] [address] [id number] [address] [place] [address], [place] [address] November, [facility] [address] [id number] [address] [place] [address], [place] [address] Oct, [facility] [address] [id number] [address] [place] [address], [place] [address] Oct, [facility] [address] [id number] [address] [place] [address], [place] [address] Oct, [facility] [address] [id number] [address] [place] [address], [place] [address] Sep, [facility] [address] [id number] [address] [place] [address], [place] [address] Sep, [facility] [address] [id number] [address] [place] [address], [place] [address] Aug, [facility] [address] [id number] [address] [place] [address], [place] [address] Aug, [facility] [address] [id number] [address] [place] [address], [place] [address] Aug, [facility] [address] [id number] [address] [place] [address], [place] [address] Aug, [facility] [address] [id number] [address] [place] [address], [place] [address] Jul, [facility] [address] [id number] [address] [place] [address], [place] [address] Jul, [facility] [address] [id number] [address] [place] [address], [place] [address] Jul, [facility] [address] [id number] [address] [place] [address], [place] [address] Jul, [facility] [address] [id number] [address] [place] [address], [place] [address] Jul, [facility] [address] [id number] [address] [place] [address], [place] [address] 05 Jul, 2011 [facility] [address] [id number] [address] [place] [address], [place] [address] 05 Jul, 2011 [facility] [address] [id number] [address] [place] [address], [place] [address] Jul, [facility] [address] [id number] [address] [place] [address], [place] [address] 30 Jun, 2011 [facility] [address] [id number] [address] [place] [address], [place] [address] 26 Jun, 2011 [facility] [address] [id number] [address] [place] [address], [place] [address] Jun, [facility] [address] [id number] [address] [place] [address], [place] [address] 08 Jun, 2011 [facility] [address] [id number] [address] [place] [address], [place] [address] Jun, [facility] [address] [id number] [address] [place] [address], [place] [address] May, [facility] [address] [id number] [address] [place] [address], [place] [address] May, [facility] [address] [id number] [address] [place] [address], [place] [address] 17 May, 2011 [facility] [address] [id number] [address] [place] [address], [place] [address] 15 May, 2011 [facility] [address] [id number] [address] [place] [address], [place] [address] May, [facility] [address] [id number] [address] [place] [address], [place] [address] 08 May, 2011 [facility] [address] [id number] [address] [place] [address], [place] [address] 19 Apr, 2011 [facility] [address] [id number] [address] [place] [address], [place] [address] 13 Apr, 2011 [facility] [address] [id number] [address] [place] [address] Apr, [facility] [address] [id number] [address] [place] [address] Feb, [facility] [address] [id number] [address] [place] [address] Feb, [facility] [address] [id number] [address] [place] [address] Oct, [facility] [address] [id number] [address] [place] [address] Jul, [facility] [address] [id number] [address] [place] [address] Jul, [facility] [address] [id number] [address] [place] [address] Jun, [facility] [address] [id number] [address] [place] [id number] May, [facility] [address] [id number] [address] [place] [address] May, [facility] [address] [id number] [address] [place] [address] May, [facility] [address] [id number] [address] [place] [address] Apr, [facility] [address] [id number] [address] [place] [address] Jan, [facility] [address] [id number] [address] [place] [id number] November, IMMUNIZATIONS No Known Immunizations SOCIAL HISTORY Never Assessed [place] [place] VITAL SIGNS MEDICATIONS Unknown [...]
--- OUTSIDE RECORDS SUMMARY | 2020-01-31 09:48 | XMS REPORT ---
Author Author Ivet Knott Doctor Organization [facility] Address Unknown Phone Unavailable Care Team Providers Care Meeting Facilitator Name Role Phone Migration, Doctor Unavailable Unavailable PROBLEMS Type Condition ICD9-CM Code UZC23-CH Code Onset Dates Condition S tatus SNOMED Code Problem Depression F32.9 Active 37839952 Problem Hypothyroidism E03.9 Active 21332 008 Problem GERD (gastroesophageal reflux disease) K21.9 Active 383161075 Problem Schizo affective schizophrenia F25.0 Active 541303519 Problem Osteoarthritis M19.90 Active 44977 5006 Problem Low back pain, unspecified b ack pain laterality, unspecified chronicity, with sciatica presence unspecified M54.5 Active 233284901 Problem Iron deficiency anemia, unspecified iron deficiency an emia type D50.9 Active 58681883 Problem Essential hypertension I10 Active 29311045 Problem Secondary hyperparathyroidism, not elsewhere classified E21.1 Active 63528376 Problem Anxiety F41.9 Active 42554476 Problem Bilateral carotid artery disease I77.9 Active 035055393 Problem Stage 3 chronic kidney disease N18.3 Active 478288517 Problem Fibromyalgia M79.7 Active 5016040 05 Problem Vitamin D deficiency E55.9 Active 21911457 ALLERGIES No Information ENCOUNTERS Encounter Location Date Diagnosis [facility] [address] [place] [address] Dec, [facility] [address] [id number] [address] [place] [address] Oct, Osteoarthritis M19.90 [facility] [address] [id number] [address] [place] [address] Oct, Sore throat J02.9 and Acute nasopharyngitis J00 [facility] [address] [id number] [address] [place] [address] Sep, Osteoarthritis M19.90 [facility] [address] [id number] [address] [place] [address] 14 Sep, 2018 Acute non-recurrent maxillar y sinusitis J01.00 [facility] [address] [address] 18 Aug, 2018 Acute non-recurrent pansinus itis J01.40 [facility] [address] [address] Jul, Osteoarthritis M19.90 [facility] [address] [address] Jul, [place] [address] [address] Apr, Osteoarthritis M19.90 [place] [address] [address] Apr, Fibromyalgia M79.7 ; Essenti al hypertension I10 ; Encounter for immunization Z23 ; Stage 3 chronic kidney disease N18.3 and Depression F32.9 [facility] [address] [address] Dec, Fibromyalgia M79.7 ; Osteoar thritis M19.90 and Encounter for medication management Z79.899 [facility] [address] [address] November, Nausea and vomiting, intract ability of vomiting not specified, unspecified vomiting type R11.2 and Dizziness R42 [facility] [address] [id number] [address] [place] [address] November, Fibromyalgia M79.7 [place] [address] [address] November, Medicare annual wellness vis it, initial Z00.00 ; Anxiety F41.9 ; Depression F32.9 ; Stage 3 chronic kidney disease N18.3 ; Fibromyalgia M79.7 ; Essential hypertension I10 ; Secondary hyperparathyroidism, not elsewhere classified E21.1 ; Osteoarthritis M19.90 ; Hypothyroidism E03.9 and Encounter for immunization Z23 [facility] [address] [id number] [address] [place] [address] Oct, [facility] [address] [address] Oct, Sebaceous cyst L72.3 [facility] [address] [address] Sep, Low back pain, unspecified b ack pain laterality, unspecified chronicity, with sciatica presence unspecified M54.5 and Secondary hyperparathyroidism, not elsewhere classified E21.1 [place] [address] [address] Sep, Fibromyalgia M79.7 [place] [address] [address] Sep, Fibromyalgia M79.7 ; Plantar fasciitis, bilateral M72.2 ; Essential hypertension I10 ; Depression F32.9 and Epidermoid cyst L72.0 [place] [address] [address] Jul, [place] [address] [address] Jul, Fibromyalgia M79.7 ; Iron de ficiency anemia, unspecified iron deficiency anemia type D50.9 and Acute nasopharyngitis J00 [facility] [address] [address] Jun, Sore throat J02.9 and Acute serous otitis media of left ear, recurrence not specified H65.02 [facility] [address] [address] Jun, Hypothyroidism E03.9 [facility] [id number] [place] [address] Jun, [place] [address] [address] Jun, Hypothyroidism E03.9 ; Essen tial hypertension I10 and Osteoarthritis M19.90 [facility] [address] [address] May, [facility] [address] [place] [address] May, [facility] [address] [address] Feb, [facility] [address] [address] Feb, Leonela-menopausal N95.1 and To bacco use Z72.0 [place] [address] [address] Jan, [place] [address] [address] Jan, Osteoarthritis M19.90 ; Bila teral carotid artery disease I77.9 ; Raynauds syndrome I73.00 ; Essential hypertension I10 ; Allergic rhinitis J30.9 ; Stage 3 chronic kidney disease N18.3 ; Fibromyalgia M79.7 ; Hypothyroidism E03.9 ; GERD (gastroesophageal reflux disease) K21.9 and Vitamin D deficiency E55.9 [facility] [address] [place] [address] Dec, Raynauds syndrome I73.00 ; P lantar fascial fibromatosis M72.2 ; Osteoarthritis M19.90 and Fibromyalgia M79.7 [facility] [address] [place] [address] Dec, [place] [address] [address] Dec, [facility] [id number] [place] [address] Oct, Function kidney decreased N2 8.9 [facility] [address] [id number] [address] [place] [id number] Oct, Dental examination Z01.20 [facility] [address] [id number] [address] [place] [address] 18 Oct, 2016 Essential hypertension I10 a nd Function kidney decreased N28.9 [facility] [address] [id number] [address] [place] [id number] 04 Oct, 2016 Dental examination Z01.20 [facility] [address] [id number] [address] [place] [address] 03 Oct, 2016 [facility] [address] [id number] [address] [place] [address] 24 Sep, 2016 Other specified disorders in volving the immune mechanism D89.89 and Schizo affective schizophrenia F25.0 [facility] [address] [id number] [address] [place] [address] Sep, Schizo affective schizophren ia F25.0 [facility] [address] [id number] [address] [place] [address] 16 Sep, 2016 Eustachian tube dysfunction, bilateral H69.83 [facility] [address] [id number] [address] [place] [address] 15 Sep, 2016 [facility] [address] [id number] [address] [place] [address] 14 Sep, 2016 [facility] [address] [id number] [address] [place] [address] 14 Sep, 2016 [facility] [address] [id number] [address] [place] [address] 13 Sep, 2016 Eustachian tube dysfunction, bilateral H69.83 [facility] [address] [facility] [id number] [address] [place] [address] 09 Sep, 2016 Allergic rhinitis J30.9 ; Es sential hypertension I10 ; Hypothyroidism E03.9 and Schizo affective schizophrenia F25.0 [facility] [address] [id number] [address] [place] [address] 23 Homar, 2017 Eustachian tube dysfunction, bilateral H69.83 and Visit for TB skin test Z11.1 [facility] [address] [facility] [id number] [address] [place] [address] Jul, Subacute pansinusitis J01.40 [facility] [address] [id number] [place] [address] Jun, Schizo affective schizophren ia F25.0 ; Depression F32.9 ; Allergic rhinitis J30.9 ; Raynauds syndrome I73.00 ; Essential hypertension I10 ; Slow transit constipation K59.01 ; GERD (gastroesophageal reflux disease) K21.9 ; Hypothyroidism E03.9 ; Nicotine addiction F17.200 ; Other viral agents as the cause of diseases classified elsewhere B97.89 ; Acute upper respiratory infection, unspecified J06.9 and Osteoarthritis M19.90 [facility] [address] [address] Jun, Allergic rhinitis J30.9 and GERD (gastroesophageal reflux disease) K21.9 [facility] [address] [place] [address] May, [facility] [address] [address] Mar, Schizo affective schizophren ia F25.0 [facility] [id number] [place] [address] Mar, Schizo affective schizophren ia F25.0 [facility] [address] [place] [address] 15 Mar, 2016 Schizo affective schizophren ia F25.0 [place] [address] [place] [address] [id number] [place] [address] 06 Mar, 2016 Acute non-recurrent maxillar y sinusitis J01.00 [facility] [address] [id number] [address] [place] [address] Feb, Schizo affective schizophren ia F25.0 [facility] [address] [address] Feb, Contact dermatitis and eczem a L25.9 [place] [address] [address] Jan, [place] [address] [address] Jan, Schizo affective schizophren ia F25.0 ; Slow transit constipation K59.01 ; Essential hypertension I10 ; GERD (gastroesophageal reflux disease) K21.9 ; Hypothyroidism E03.9 ; Osteoarthritis M19.90 ; Low back pain, unspecified back pain laterality, unspecified chronicity, with sciatica presence unspecified M54.5 and Bilateral carotid artery disease I77.9 [place] [address] [address] Oct, [place] [address] [address] Sep, Hypothyroid E03.9 [place] [address] [address] Sep, Schizo affective schizophren ia F25.0 ; Depression F32.9 ; Anxiety F41.9 ; Allergic rhinitis J30.9 ; Raynauds syndrome I73.00 ; Insomnia G47.00 ; Essential hypertension I10 ; GERD (gastroesophageal reflux disease) K21.9 ; Hypothyroidism E03.9 and Vitamin D deficiency E55.9 [place] [address] [address] Sep, [place] [address] [address] Sep, [place] [address] [address] Aug, Allergic rhinitis J30.9 ; De pression F32.9 ; Anxiety F41.9 ; Raynauds syndrome I73.00 ; Insomnia G47.00 and GERD (gastroesophageal reflux disease) K21.9 [place] [id number] [place] [address] Aug, MONICA (secretory otitis media) H65.90 and Raynauds syndrome I73.00 [facility] [address] [place] [address] Jul, Acute otitis externa of both ears, unspecified type H60.503 [facility] [address] [address] Jun, [place] [address] [address] Jun, Essential hypertension I10 ; Allergic rhinitis J30.9 ; Hypothyroidism E03.9 and Osteoarthritis M19.90 [place] [address] [address] Jun, Routine adult health mainten ance Z00.00 ; Hypothyroidism E03.9 ; Essential hypertension I10 ; Insomnia G47.00 ; Nicotine addiction F17.200 ; Raynauds syndrome I73.00 ; GERD (gastroesophageal reflux disease) K21.9 ; Allergic rhinitis J30.9 ; Anxiety F41.9 ; Depression F32.9 and Schizo affective schizophrenia F25.0 [place] [address] [id number] [place] [address] May, Upper respiratory tract infe ction, unspecified type J06.9 [facility] [address] [place] [address] Mar, [facility] [id number] [id number] Mar, [place] [id number] [place] [address] Mar, [place] [address] [id number] [place] [address] Mar, [place] [address] [id number] [place] [address] 25 Aug, 2015 Jaw pain 784.92 and Environm ental and seasonal allergies 477.8 [facility] [address] [id number] [address] [place] [address], [place] [address] Feb, [facility] [address] [id number] [address] [place] [address] Oct, [facility] [address] [id number] [address] [place] [address], [place] [address] Oct, [facility] [address] [id number] [address] [place] [address] Oct, [facility] [address] [id number] [address] [place] [address], [place] [address] Oct, [facility] [address] [id number] [address] [place] [address] Sep, [facility] [address] [id number] [address] [place] [address] Sep, [facility] [address] [id number] [address] [place] [address] Jul, [facility] [address] [id number] [address] [place] [address] Jul, [facility] [address] [id number] [address] [place] [address] Jul, [facility] [address] [id number] [address] [place] [address] Jul, [facility] [address] [id number] [address] [place] [address] Jul, [facility] [address] [id number] [address] [place] [address] Jul, [facility] [address] [id number] [address] [place] [address] Jul, [facility] [address] [id number] [address] [place] [address] Jun, [facility] [address] [id number] [address] [place] [address], [place] [address] 31 Jun, 2014 [facility] [address] [id number] [address] [place] [address], [place] [address] 22 Jun, 2014 [facility] [address] [id number] [address] [place] [address], [place] [address] 18 Jun, 2014 [facility] [address] [id number] [address] [place] [address], [place] [address] 17 Jun, 2014 [facility] [address] [id number] [address] [place] [address], [place] [address] 17 Jun, 2014 [facility] [address] [id number] [address] [place] [address], [place] [address] 16 Jun, 2014 [facility] [address] [id number] [address] [place] [address], [place] [address] 16 Jun, 2014 [facility] [address] [id number] [address] [place] [address], [place] [address] 30 Apr, 2014 [facility] [address] [id number] [address] [place] [address], [place] [address] 30 Apr, 2014 [facility] [address] [id number] [address] [place] [address], [place] [address] 17 Mar, 2014 [facility] [address] [id number] [address] [place] [address], [place] [address] 17 Mar, 2014 [facility] [address] [id number] [address] [place] [address], [place] [address] 03 Mar, 2014 [facility] [address] [id number] [address] [place] [address], [place] [address] 03 Mar, 2014 [facility] [address] [id number] [address] [place] [address], [place] [address] 16 Jan, 2014 [facility] [address] [id number] [address] [place] [address], [place] [address] 16 Jan, 2014 [facility] [address] [id number] [address] [place] [address], [place] [address] Oct, [facility] [address] [id number] [address] [place] [address], [place] [address] Oct, [facility] [address] [id number] [address] [place] [address], [place] [address] Sep, [facility] [address] [id number] [address] [place] [address], [place] [address] Sep, [facility] [address] [id number] [address] [place] [address], [place] [address] Sep, [facility] [address] [id number] [address] [place] [address], [place] [address] Sep, [facility] [address] [id number] [address] [place] [address], [place] [address] Sep, [facility] [address] [id number] [address] [place] [address], [place] [address] Sep, [facility] [address] [id number] [address] [place] [address], [place] [address] Aug, [facility] [address] [id number] [address] [place] [address], [place] [address] Aug, [facility] [address] [id number] [address] [place] [address], [place] [address] Jul, [facility] [address] [id number] [address] [place] [address], [place] [address] Jul, [facility] [address] [id number] [address] [place] [address], [place] [address] Jul, [facility] [address] [id number] [address] [place] [address], [place] [address] Jul, [facility] [address] [id number] [address] [place] [address], [place] [address] Jun, [facility] [address] [id number] [address] [place] [address], [place] [address] Jun, [facility] [address] [id number] [address] [place] [address], [place] [address] May, [facility] [address] [id number] [address] [place] [address], [place] [address] May, [facility] [address] [id number] [address] [place] [address], [place] [address] Apr, [facility] [address] [id number] [address] [place] [address], [place] [address] Apr, [facility] [address] [id number] [address] [place] [address], [place] [address] Apr, [facility] [address] [id number] [address] [place] [address], [place] [address] Apr, [facility] [address] [id number] [address] [place] [address], [place] [address] Apr, [facility] [address] [id number] [address] [place] [address], [place] [address] Apr, [facility] [address] [id number] [address] [place] [address], [place] [address] 24 Mar, 2013 [facility] [address] [id number] [address] [place] [address], [place] [address] Mar, [facility] [address] [id number] [address] [place] [address], [place] [address] Mar, [facility] [address] [id number] [address] [place] [address], [place] [address] Mar, [facility] [address] [id number] [address] [place] [address], [place] [address] Mar, [facility] [address] [id number] [address] [place] [address], [place] [address] Feb, [facility] [address] [id number] [address] [place] [address], [place] [address] Feb, [facility] [address] [id number] [address] [place] [address], [place] [address] Feb, [facility] [address] [id number] [address] [place] [address], [place] [address] 08 Feb, 2013 [facility] [address] [id number] [address] [place] [address], [place] [address] 18 Jan, 2013 [facility] [address] [id number] [address] [place] [address], [place] [address] 17 Jan, 2013 [facility] [address] [id number] [address] [place] [address], [place] [address] 16 Jan, 2013 [facility] [address] [id number] [address] [place] [address], [place] [address] Jan, [facility] [address] [id number] [address] [place] [address], [place] [address] Jan, [facility] [address] [id number] [address] [place] [address], [place] [address] Jan, [facility] [address] [id number] [address] [place] [address], [place] [address] 27 Dec, 2012 [facility] [address] [id number] [address] [place] [address], [place] [address] 25 Dec, 2012 [facility] [address] [id number] [address] [place] [address], [place] [address] Dec, [facility] [address] [id number] [address] [place] [address], [place] [address] 14 Dec, 2012 [facility] [address] [id number] [address] [place] [address], [place] [address] 13 Dec, 2012 [facility] [address] [id number] [address] [place] [address], [place] [address] 12 Dec, 2012 [facility] [address] [id number] [address] [place] [address], [place] [address] 11 Dec, 2012 [facility] [address] [id number] [address] [place] [address], [place] [address] 07 Dec, 2012 [facility] [address] [id number] [address] [place] [address], [place] [address] Dec, [facility] [address] [id number] [address] [place] [address], [place] [address] Dec, [facility] [address] [id number] [address] [place] [address], [place] [address] November, [facility] [address] [id number] [address] [place] [address], [place] [address] November, [facility] [address] [id number] [address] [place] [address], [place] [address] November, [facility] [address] [id number] [address] [place] [address], [place] [address] November, [facility] [address] [id number] [address] [place] [address], [place] [address] November, [facility] [address] [id number] [address] [place] [address], [place] [address] Oct, [facility] [address] [id number] [address] [place] [address], [place] [address] Oct, [facility] [address] [id number] [address] [place] [address], [place] [address] Oct, [facility] [address] [id number] [address] [place] [address], [place] [address] Oct, [facility] [address] [id number] [address] [place] [address], [place] [address] Oct, [facility] [address] [id number] [address] [place] [address], [place] [address] Sep, [facility] [address] [id number] [address] [place] [address], [place] [address] Sep, [facility] [address] [id number] [address] [place] [address], [place] [address] Sep, [facility] [address] [id number] [address] [place] [address], [place] [address] Sep, [facility] [address] [id number] [address] [place] [address], [place] [address] 26 Aug, 2012 [facility] [address] [id number] [address] [place] [address], [place] [address] 18 Aug, 2012 [facility] [address] [id number] [address] [place] [address], [place] [address] 18 Aug, 2012 [facility] [address] [id number] [address] [place] [address], [place] [address] 15 Aug, 2012 [facility] [address] [id number] [address] [place] [address], [place] [address] 17 Jun, 2012 [facility] [address] [id number] [address] [place] [address], [place] [address] Jun, [facility] [address] [id number] [address] [place] [address], [place] [address] Jun, [facility] [address] [id number] [address] [place] [address], [place] [address] Jun, [facility] [address] [id number] [address] [place] [address], [place] [address] Jun, [facility] [address] [id number] [address] [place] [address], [place] [address] Jun, [facility] [address] [id number] [address] [place] [address], [place] [address] Jun, [facility] [address] [id number] [address] [place] [address], [place] [address] Jun, [facility] [address] [id number] [address] [place] [address], [place] [address] Jun, [facility] [address] [id number] [address] [place] [address], [place] [address] Jun, [facility] [address] [id number] [address] [place] [address], [place] [address] May, [facility] [address] [id number] [address] [place] [address], [place] [address] May, [facility] [address] [id number] [address] [place] [address], [place] [address] 27 May, 2012 [facility] [address] [id number] [address] [place] [address], [place] [address] May, [facility] [address] [id number] [address] [place] [address], [place] [address] May, [facility] [address] [id number] [address] [place] [address], [place] [address] 16 May, 2012 [facility] [address] [id number] [address] [place] [address], [place] [address] 16 May, 2012 [facility] [address] [id number] [address] [place] [address], [place] [address] 14 May, 2012 [facility] [address] [id number] [address] [place] [address], [place] [address] May, [facility] [address] [id number] [address] [place] [address], [place] [address] 30 Apr, 2012 [facility] [address] [id number] [address] [place] [address], [place] [address] 30 Apr, 2012 [facility] [address] [id number] [address] [place] [address], [place] [address] 17 Apr, 2012 [facility] [address] [id number] [address] [place] [address], [place] [address] 17 Apr, 2012 [facility] [address] [id number] [address] [place] [address] 09 Apr, 2012 [facility] [address] [id number] [address] [place] [address], [place] [address] 18 Mar, 2012 [facility] [address] [id number] [address] [place] [address], [place] [address] 17 Sep2011 [facility] [address] [id number] [address] [place] [address], [place] [address] 07 Mar, 2012 [facility] [address] [id number] [address] [place] [address], [place] [address] Feb, [facility] [address] [id number] [address] [place] [address], [place] [address] Feb, [facility] [address] [id number] [address] [place] [address], [place] [address] Feb, [facility] [address] [id number] [address] [place] [address], [place] [address] Feb, [facility] [address] [id number] [address] [place] [address], [place] [address] Jan, [facility] [address] [id number] [address] [place] [address], [place] [address] Jan, [facility] [address] [id number] [address] [place] [address], [place] [address] Jan, [facility] [address] [id number] [address] [place] [address], [place] [address] Jan, [facility] [address] [id number] [address] [place] [address], [place] [address] Jan, [facility] [address] [id number] [address] [place] [address], [place] [address] Jan, [facility] [address] [id number] [address] [place] [address], [place] [address] Dec, [facility] [address] [id number] [address] [place] [address], [place] [address] Dec, [facility] [address] [id number] [address] [place] [address], [place] [address] Dec, [facility] [address] [id number] [address] [place] [address], [place] [address] November, [facility] [address] [id number] [address] [place] [address], [place] [address] November, [facility] [address] [id number] [address] [place] [address], [place] [address] November, [facility] [address] [id number] [address] [place] [address], [place] [address] November, [facility] [address] [id number] [address] [place] [address], [place] [address] Oct, [facility] [address] [id number] [address] [place] [address], [place] [address] Oct, [facility] [address] [id number] [address] [place] [address], [place] [address] Oct, [facility] [address] [id number] [address] [place] [address], [place] [address] Sep, [facility] [address] [id number] [address] [place] [address], [place] [address] Sep, [facility] [address] [id number] [address] [place] [address], [place] [address] Aug, [facility] [address] [id number] [address] [place] [address], [place] [address] Aug, [facility] [address] [id number] [address] [place] [address], [place] [address] Aug, [facility] [address] [id number] [address] [place] [address], [place] [address] Aug, [facility] [address] [id number] [address] [place] [address], [place] [address] Jul, [facility] [address] [id number] [address] [place] [address], [place] [address] Jul, [facility] [address] [id number] [address] [place] [address], [place] [address] Jul, [facility] [address] [id number] [address] [place] [address], [place] [address] Jul, [facility] [address] [id number] [address] [place] [address], [place] [address] Jul, [facility] [address] [id number] [address] [place] [address], [place] [address] 05 Jul, 2011 [facility] [address] [id number] [address] [place] [address], [place] [address] 05 Jul, 2011 [facility] [address] [id number] [address] [place] [address], [place] [address] Jul, [facility] [address] [id number] [address] [place] [address], [place] [address] 30 Jun, 2011 [facility] [address] [id number] [address] [place] [address], [place] [address] 26 Jun, 2011 [facility] [address] [id number] [address] [place] [address], [place] [address] Jun, [facility] [address] [id number] [address] [place] [address], [place] [address] 08 Jun, 2011 [facility] [address] [id number] [address] [place] [address], [place] [address] Jun, [facility] [address] [id number] [address] [place] [address], [place] [address] May, [facility] [address] [id number] [address] [place] [address], [place] [address] May, [facility] [address] [id number] [address] [place] [address], [place] [address] 17 May, 2011 [facility] [address] [id number] [address] [place] [address], [place] [address] 15 May, 2011 [facility] [address] [id number] [address] [place] [address], [place] [address] May, [facility] [address] [id number] [address] [place] [address], [place] [address] 08 May, 2011 [facility] [address] [id number] [address] [place] [address], [place] [address] 19 Apr, 2011 [facility] [address] [id number] [address] [place] [address], [place] [address] 13 Apr, 2011 [facility] [address] [id number] [address] [place] [address] Apr, [facility] [address] [id number] [address] [place] [address] Feb, [facility] [address] [id number] [address] [place] [address] Feb, [facility] [address] [id number] [address] [place] [address] Oct, [facility] [address] [id number] [address] [place] [address] Jul, [facility] [address] [id number] [address] [place] [address] Jul, [facility] [address] [id number] [address] [place] [address] Jun, [facility] [address] [id number] [address] [place] [address] May, [facility] [address] [id number] [address] [place] [address] May, [facility] [address] [id number] [address] [place] [address] May, [facility] [address] [id number] [address] [place] [address] Apr, [facility] [address] [id number] [address] [place] [address] Jan, [facility] [address] [id number] [address] [place] [address] November, IMMUNIZATIONS No Known Immunizations SOCIAL HISTORY Never Assessed REASON FOR VISIT EMR-[facility] PLAN OF CARE VITAL SIGNS MEDICATIONS Unknown [...]
--- OUTSIDE RECORDS SUMMARY | 2020-01-31 09:49 | XMS REPORT ---
Author Author Ivet Knott Doctor Organization [facility] Address Unknown Phone Unavailable Care Team Providers Care Hand Bulldozer Name Role Phone Migration, Doctor Unavailable Unavailable PROBLEMS Type Condition ICD9-CM Code AVD50-VH Code Onset Dates Condition S tatus SNOMED Code Problem Depression F32.9 Active 51557634 Problem Hypothyroidism E03.9 Active 46880 008 Problem GERD (gastroesophageal reflux disease) K21.9 Active 488977103 Problem Schizo affective schizophrenia F25.0 Active 193493436 Problem Osteoarthritis M19.90 Active 28906 5006 Problem Low back pain, unspecified b ack pain laterality, unspecified chronicity, with sciatica presence unspecified M54.5 Active 284862828 Problem Iron deficiency anemia, unspecified iron deficiency an emia type D50.9 Active 30696317 Problem Essential hypertension I10 Active 05630061 Problem Secondary hyperparathyroidism, not elsewhere classified E21.1 Active 71328812 Problem Anxiety F41.9 Active 02800713 Problem Bilateral carotid artery disease I77.9 Active 968539777 Problem Stage 3 chronic kidney disease N18.3 Active 400072366 Problem Fibromyalgia M79.7 Active 8266392 05 Problem Vitamin D deficiency E55.9 Active 72005698 ALLERGIES No Information ENCOUNTERS Encounter Location Date Diagnosis [facility] [address] [place] [address] Dec, [facility] [id number] [place] [address] Oct, [address] [facility] [id number] [place] [address] Oct, Sore throat J02.9 and Acute nasopharyngitis J00 [facility] [address] [id number] [address] [place] [address] Sep, Osteoarthritis M19.[address] [facility] [id number] [place] [address] 14 Sep, 2018 Acute non-recurrent maxillar y sinusitis J01.00 [facility] [address] [address] 18 Aug, 2018 Acute non-recurrent pansinus itis J01.40 [facility] [address] [address] Jul, Osteoarthritis M19.90 [facility] [address] [address] Jul, [place] [address] [address] Apr, Osteoarthritis M19.90 [place] [address] [address] Apr, Fibromyalgia M79.7 ; Essenti al hypertension I10 ; Encounter for immunization Z23 ; Stage 3 chronic kidney disease N18.3 and Depression F32.9 [facility] [address] [address] Dec, Fibromyalgia M79.7 ; Osteoar thritis M19.90 and Encounter for medication management Z79.899 [facility] [address] [address] November, Nausea and vomiting, intract ability of vomiting not specified, unspecified vomiting type R11.2 and Dizziness R42 [facility] [id number] [place] [address] November, Fibromyalgia M79.7 [place] [address] [address] November, Medicare annual wellness vis it, initial Z00.00 ; Anxiety F41.9 ; Depression F32.9 ; Stage 3 chronic kidney disease N18.3 ; Fibromyalgia M79.7 ; Essential hypertension I10 ; Secondary hyperparathyroidism, not elsewhere classified E21.1 ; Osteoarthritis M19.90 ; Hypothyroidism E03.9 and Encounter for immunization Z23 [facility] [id number] [place] [address] Oct, [facility] [address] [address] Oct, Sebaceous cyst L72.3 [facility] [address] [address] Sep, Low back pain, unspecified b ack pain laterality, unspecified chronicity, with sciatica presence unspecified M54.5 and Secondary hyperparathyroidism, not elsewhere classified E21.1 [place] [address] [address] Sep, Fibromyalgia M79.7 [place] [address] [address] Sep, Fibromyalgia M79.7 ; Plantar fasciitis, bilateral M72.2 ; Essential hypertension I10 ; Depression F32.9 and Epidermoid cyst L72.0 [place] [address] [address] Jul, [place] [address] [address] Jul, Fibromyalgia M79.7 ; Iron de ficiency anemia, unspecified iron deficiency anemia type D50.9 and Acute nasopharyngitis J00 [facility] [address] [address] Jun, Sore throat J02.9 and Acute serous otitis media of left ear, recurrence not specified H65.02 [facility] [address] [address] Jun, Hypothyroidism E03.9 [facility] [id number] [place] [address] Jun, [place] [address] [address] Jun, Hypothyroidism E03.9 ; Essen tial hypertension I10 and Osteoarthritis M19.90 [facility] [address] [address] May, [facility] [address] [place] [address] May, [facility] [address] [address] Feb, [facility] [address] [address] Feb, Leonela-menopausal N95.1 and To bacco use Z72.0 [place] [address] [address] Jan, [place] [address] [address] Jan, Osteoarthritis M19.90 ; Bila teral carotid artery disease I77.9 ; Raynauds syndrome I73.00 ; Essential hypertension I10 ; Allergic rhinitis J30.9 ; Stage 3 chronic kidney disease N18.3 ; Fibromyalgia M79.7 ; Hypothyroidism E03.9 ; GERD (gastroesophageal reflux disease) K21.9 and Vitamin D deficiency E55.9 [facility] [address] [place] [address] Dec, Raynauds syndrome I73.00 ; P lantar fascial fibromatosis M72.2 ; Osteoarthritis M19.90 and Fibromyalgia M79.7 [facility] [address] [place] [address] Dec, [place] [address] [address] Dec, [facility] [id number] [place] [address] Oct, Function kidney decreased N2 8.9 [facility] [id number] [place] [id number] Oct, Dental examination Z01.20 [facility] [address] [id number] [address] [place] [address] 18 Oct, 2016 Essential hypertension I10 a nd Function kidney decreased N28.9 [facility] [address] [id number] [address] [place] [id number] 04 Oct, 2016 Dental examination Z01.20 [facility] [address] [id number] [address] [place] [address] 03 Oct, 2016 [facility] [address] [id number] [address] [place] [address] 24 Sep, 2016 Other specified disorders in volving the immune mechanism D89.89 and Schizo affective schizophrenia F25.0 [facility] [address] [id number] [address] [place] [address] Sep, Schizo affective schizophren ia F25.0 [facility] [address] [id number] [address] [place] [address] 16 Sep, 2016 Eustachian tube dysfunction, bilateral H69.83 [facility] [address] [id number] [address] [place] [address] 15 Sep, 2016 [facility] [address] [id number] [address] [place] [address] 14 Sep, 2016 [facility] [address] [id number] [address] [place] [address] 14 Sep, 2016 [facility] [address] [id number] [address] [place] [address] 13 Sep, 2016 Eustachian tube dysfunction, bilateral H69.83 [facility] [address] [facility] [id number] [place] [address] 09 Sep, 2016 Allergic rhinitis J30.9 ; Es sential hypertension I10 ; Hypothyroidism E03.9 and Schizo affective schizophrenia F25.0 [facility] [address] [id number] [address] [place] [address] 23 Homar, 2017 Eustachian tube dysfunction, bilateral H69.83 and Visit for TB skin test Z11.1 [facility] [address] [facility] [id number] [place] [address] Jul, Subacute pansinusitis J01.40 [facility] [id number] [place] [address] Jun, Schizo affective schizophren ia F25.0 ; Depression F32.9 ; Allergic rhinitis J30.9 ; Raynauds syndrome I73.00 ; Essential hypertension I10 ; Slow transit constipation K59.01 ; GERD (gastroesophageal reflux disease) K21.9 ; Hypothyroidism E03.9 ; Nicotine addiction F17.200 ; Other viral agents as the cause of diseases classified elsewhere B97.89 ; Acute upper respiratory infection, unspecified J06.9 and Osteoarthritis M19.90 [facility] [address] [address] Jun, Allergic rhinitis J30.9 and GERD (gastroesophageal reflux disease) K21.9 [facility] [address] [place] [address] May, [facility] [address] [address] Mar, Schizo affective schizophren ia F25.0 [facility] [id number] [place] [address] Mar, Schizo affective schizophren ia F25.0 [facility] [address] [place] [address] 15 Mar, 2016 Schizo affective schizophren ia F25.0 [place] [id number] [place] [address] 06 Mar, 2016 Acute non-recurrent maxillar y sinusitis J01.00 [facility] [id number] [address] [place] [address] Feb, Schizo affective schizophren ia F25.0 [facility] [address] [address] Feb, Contact dermatitis and eczem a L25.9 [place] [address] [address] Jan, [place] [address] [address] Jan, Schizo affective schizophren ia F25.0 ; Slow transit constipation K59.01 ; Essential hypertension I10 ; GERD (gastroesophageal reflux disease) K21.9 ; Hypothyroidism E03.9 ; Osteoarthritis M19.90 ; Low back pain, unspecified back pain laterality, unspecified chronicity, with sciatica presence unspecified M54.5 and Bilateral carotid artery disease I77.9 [place] [address] [address] Oct, [place] [address] [address] Sep, Hypothyroid E03.9 [place] [address] [address] Sep, Schizo affective schizophren ia F25.0 ; Depression F32.9 ; Anxiety F41.9 ; Allergic rhinitis J30.9 ; Raynauds syndrome I73.00 ; Insomnia G47.00 ; Essential hypertension I10 ; GERD (gastroesophageal reflux disease) K21.9 ; Hypothyroidism E03.9 and Vitamin D deficiency E55.9 [place] [address] [address] Sep, [place] [address] [address] Sep, [place] [address] [address] Aug, Allergic rhinitis J30.9 ; De pression F32.9 ; Anxiety F41.9 ; Raynauds syndrome I73.00 ; Insomnia G47.00 and GERD (gastroesophageal reflux disease) K21.9 [place] [id number] [place] [address] Aug, MONICA (secretory otitis media) H65.90 and Raynauds syndrome I73.[address] [facility] [address] [place] [address] Jul, Acute otitis externa of both ears, unspecified type H60.503 [facility] [address] [address] Jun, [place] [address] [address] Jun, Essential hypertension I10 ; Allergic rhinitis J30.9 ; Hypothyroidism E03.9 and Osteoarthritis M19.90 [place] [address] [address] Jun, Routine adult health mainten ance Z00.00 ; Hypothyroidism E03.9 ; Essential hypertension I10 ; Insomnia G47.00 ; Nicotine addiction F17.200 ; Raynauds syndrome I73.00 ; GERD (gastroesophageal reflux disease) K21.9 ; Allergic rhinitis J30.9 ; Anxiety F41.9 ; Depression F32.9 and Schizo affective schizophrenia F25.0 [place] [id number] [place] [address] May, Upper respiratory tract infe ction, unspecified type J06.9 [facility] [address] [place] [address] Mar, [facility] [id number] [id number] Mar, [place] [id number] [place] [address] Mar, [place] [id number] [place] [address] Mar, [place] [id number] [place] [address] 25 Aug, 2015 Jaw pain 784.92 and Environm ental and seasonal allergies 477.8 [facility] [address] [id number] [address] [place] [address], [place] [address] Feb, [facility] [address] [id number] [address] [place] [address] Oct, [facility] [address] [id number] [address] [place] [address], [place] [address] Oct, [facility] [address] [id number] [address] [place] [address] Oct, [facility] [address] [id number] [address] [place] [address], [place] [address] Oct, [facility] [address] [id number] [address] [place] [address] Sep, [facility] [address] [id number] [address] [place] [address] Sep, [facility] [address] [id number] [address] [place] [address] Jul, [facility] [address] [id number] [address] [place] [address] Jul, [facility] [address] [id number] [address] [place] [address] Jul, [facility] [address] [id number] [address] [place] [address] Jul, [facility] [address] [id number] [address] [place] [address] Jul, [facility] [address] [id number] [address] [place] [address] Jul, [facility] [address] [id number] [address] [place] [address] Jul, [facility] [address] [id number] [address] [place] [address] Jun, [facility] [address] [id number] [address] [place] [address], [place] [address] 31 Jun, 2014 [facility] [address] [id number] [address] [place] [address], [place] [address] 22 Jun, 2014 [facility] [address] [id number] [address] [place] [address], [place] [address] 18 Jun, 2014 [facility] [address] [id number] [address] [place] [address], [place] [address] 17 Jun, 2014 [facility] [address] [id number] [address] [place] [address], [place] [address] 17 Jun, 2014 [facility] [address] [id number] [address] [place] [address], [place] [address] 16 Jun, 2014 [facility] [address] [id number] [address] [place] [address], [place] [address] 16 Jun, 2014 [facility] [address] [id number] [address] [place] [address], [place] [address] 30 Apr, 2014 [facility] [address] [id number] [address] [place] [address], [place] [address] 30 Apr, 2014 [facility] [address] [id number] [address] [place] [address], [place] [address] 17 Mar, 2014 [facility] [address] [id number] [address] [place] [address], [place] [address] 17 Mar, 2014 [facility] [address] [id number] [address] [place] [address], [place] [address] 03 Mar, 2014 [facility] [address] [id number] [address] [place] [address], [place] [address] 03 Mar, 2014 [facility] [address] [id number] [address] [place] [address], [place] [address] 16 Jan, 2014 [facility] [address] [id number] [address] [place] [address], [place] [address] 16 Jan, 2014 [facility] [address] [id number] [address] [place] [address], [place] [address] Oct, [facility] [address] [id number] [address] [place] [address], [place] [address] Oct, [facility] [address] [id number] [address] [place] [address], [place] [address] Sep, [facility] [address] [id number] [address] [place] [address], [place] [address] Sep, [facility] [address] [id number] [address] [place] [address], [place] [address] Sep, [facility] [address] [id number] [address] [place] [address], [place] [address] Sep, [facility] [address] [id number] [address] [place] [address], [place] [address] Sep, [facility] [address] [id number] [address] [place] [address], [place] [address] Sep, [facility] [address] [id number] [address] [place] [address], [place] [address] Aug, [facility] [address] [id number] [address] [place] [address], [place] [address] Aug, [facility] [address] [id number] [address] [place] [address], [place] [address] Jul, [facility] [address] [id number] [address] [place] [address], [place] [address] Jul, [facility] [address] [id number] [address] [place] [address], [place] [address] Jul, [facility] [address] [id number] [address] [place] [address], [place] [address] Jul, [facility] [address] [id number] [address] [place] [address], [place] [address] Jun, [facility] [address] [id number] [address] [place] [address], [place] [address] Jun, [facility] [address] [id number] [address] [place] [address], [place] [address] May, [facility] [address] [id number] [address] [place] [address], [place] [address] May, [facility] [address] [id number] [address] [place] [address], [place] [address] Apr, [facility] [address] [id number] [address] [place] [address], [place] [address] Apr, [facility] [address] [id number] [address] [place] [address], [place] [address] Apr, [facility] [address] [id number] [address] [place] [address], [place] [address] Apr, [facility] [address] [id number] [address] [place] [address], [place] [address] Apr, [facility] [address] [id number] [address] [place] [address], [place] [address] Apr, [facility] [address] [id number] [address] [place] [address], [place] [address] 24 Mar, 2013 [facility] [address] [id number] [address] [place] [address], [place] [address] Mar, [facility] [address] [id number] [address] [place] [address], [place] [address] Mar, [facility] [address] [id number] [address] [place] [address], [place] [address] Mar, [facility] [address] [id number] [address] [place] [address], [place] [address] Mar, [facility] [address] [id number] [address] [place] [address], [place] [address] Feb, [facility] [address] [id number] [address] [place] [address], [place] [address] Feb, [facility] [address] [id number] [address] [place] [address], [place] [address] Feb, [facility] [address] [id number] [address] [place] [address], [place] [address] 08 Feb, 2013 [facility] [address] [id number] [address] [place] [address], [place] [address] 18 Jan, 2013 [facility] [address] [id number] [address] [place] [address], [place] [address] 17 Jan, 2013 [facility] [address] [id number] [address] [place] [address], [place] [address] 16 Jan, 2013 [facility] [address] [id number] [address] [place] [address], [place] [address] Jan, [facility] [address] [id number] [address] [place] [address], [place] [address] Jan, [facility] [address] [id number] [address] [place] [address], [place] [address] Jan, [facility] [address] [id number] [address] [place] [address], [place] [address] 27 Dec, 2012 [facility] [address] [id number] [address] [place] [address], [place] [address] 25 Dec, 2012 [facility] [address] [id number] [address] [place] [address], [place] [address] Dec, [facility] [address] [id number] [address] [place] [address], [place] [address] 14 Dec, 2012 [facility] [address] [id number] [address] [place] [address], [place] [address] 13 Dec, 2012 [facility] [address] [id number] [address] [place] [address], [place] [address] 12 Dec, 2012 [facility] [address] [id number] [address] [place] [address], [place] [address] 11 Dec, 2012 [facility] [address] [id number] [address] [place] [address], [place] [address] 07 Dec, 2012 [facility] [address] [id number] [address] [place] [address], [place] [address] Dec, [facility] [address] [id number] [address] [place] [address], [place] [address] Dec, [facility] [address] [id number] [address] [place] [address], [place] [address] November, [facility] [address] [id number] [address] [place] [address], [place] [address] November, [facility] [address] [id number] [address] [place] [address], [place] [address] November, [facility] [address] [id number] [address] [place] [address], [place] [address] November, [facility] [address] [id number] [address] [place] [address], [place] [address] November, [facility] [address] [id number] [address] [place] [address], [place] [address] Oct, [facility] [address] [id number] [address] [place] [address], [place] [address] Oct, [facility] [address] [id number] [address] [place] [address], [place] [address] Oct, [facility] [address] [id number] [address] [place] [address], [place] [address] Oct, [facility] [address] [id number] [address] [place] [address], [place] [address] Oct, [facility] [address] [id number] [address] [place] [address], [place] [address] Sep, [facility] [address] [id number] [address] [place] [address], [place] [address] Sep, [facility] [address] [id number] [address] [place] [address], [place] [address] Sep, [facility] [address] [id number] [address] [place] [address], [place] [address] Sep, [facility] [address] [id number] [address] [place] [address], [place] [address] 26 Aug, 2012 [facility] [address] [id number] [address] [place] [address], [place] [address] 18 Aug, 2012 [facility] [address] [id number] [address] [place] [address], [place] [address] 18 Aug, 2012 [facility] [address] [id number] [address] [place] [address], [place] [address] 15 Aug, 2012 [facility] [address] [id number] [address] [place] [address], [place] [address] 17 Jun, 2012 [facility] [address] [id number] [address] [place] [address], [place] [address] Jun, [facility] [address] [id number] [address] [place] [address], [place] [address] Jun, [facility] [address] [id number] [address] [place] [address], [place] [address] Jun, [facility] [address] [id number] [address] [place] [address], [place] [address] Jun, [facility] [address] [id number] [address] [place] [address], [place] [address] Jun, [facility] [address] [id number] [address] [place] [address], [place] [address] Jun, [facility] [address] [id number] [address] [place] [address], [place] [address] Jun, [facility] [address] [id number] [address] [place] [address], [place] [address] Jun, [facility] [address] [id number] [address] [place] [address], [place] [address] Jun, [facility] [address] [id number] [address] [place] [address], [place] [address] May, [facility] [address] [id number] [address] [place] [address], [place] [address] May, [facility] [address] [id number] [address] [place] [address], [place] [address] 27 May, 2012 [facility] [address] [id number] [address] [place] [address], [place] [address] May, [facility] [address] [id number] [address] [place] [address], [place] [address] May, [facility] [address] [id number] [address] [place] [address], [place] [address] 16 May, 2012 [facility] [address] [id number] [address] [place] [address], [place] [address] 16 May, 2012 [facility] [address] [id number] [address] [place] [address], [place] [address] 14 May, 2012 [facility] [address] [id number] [address] [place] [address], [place] [address] May, [facility] [address] [id number] [address] [place] [address], [place] [address] 30 Apr, 2012 [facility] [address] [id number] [address] [place] [address], [place] [address] 30 Apr, 2012 [facility] [address] [id number] [address] [place] [address], [place] [address] 17 Apr, 2012 [facility] [address] [id number] [address] [place] [address], [place] [address] 17 Apr, 2012 [facility] [address] [id number] [address] [place] [id number] 09 Apr, 2012 [facility] [address] [id number] [address] [place] [address], [place] [address] 18 Mar, 2012 [facility] [address] [id number] [address] [place] [address], [place] [address] 17 Sep2011 [facility] [address] [id number] [address] [place] [address], [place] [address] 07 Mar, 2012 [facility] [address] [id number] [address] [place] [address], [place] [address] Feb, [facility] [address] [id number] [address] [place] [address], [place] [address] Feb, [facility] [address] [id number] [address] [place] [address], [place] [address] Feb, [facility] [address] [id number] [address] [place] [address], [place] [address] Feb, [facility] [address] [id number] [address] [place] [address], [place] [address] Jan, [facility] [address] [id number] [address] [place] [address], [place] [address] Jan, [facility] [address] [id number] [address] [place] [address], [place] [address] Jan, [facility] [address] [id number] [address] [place] [address], [place] [address] Jan, [facility] [address] [id number] [address] [place] [address], [place] [address] Jan, [facility] [address] [id number] [address] [place] [address], [place] [address] Jan, [facility] [address] [id number] [address] [place] [address], [place] [address] Dec, [facility] [address] [id number] [address] [place] [address], [place] [address] Dec, [facility] [address] [id number] [address] [place] [address], [place] [address] Dec, [facility] [address] [id number] [address] [place] [address], [place] [address] November, [facility] [address] [id number] [address] [place] [address], [place] [address] November, [facility] [address] [id number] [address] [place] [address], [place] [address] November, [facility] [address] [id number] [address] [place] [address], [place] [address] November, [facility] [address] [id number] [address] [place] [address], [place] [address] Oct, [facility] [address] [id number] [address] [place] [address], [place] [address] Oct, [facility] [address] [id number] [address] [place] [address], [place] [address] Oct, [facility] [address] [id number] [address] [place] [address], [place] [address] Sep, [facility] [address] [id number] [address] [place] [address], [place] [address] Sep, [facility] [address] [id number] [address] [place] [address], [place] [address] Aug, [facility] [address] [id number] [address] [place] [address], [place] [address] Aug, [facility] [address] [id number] [address] [place] [address], [place] [address] Aug, [facility] [address] [id number] [address] [place] [address], [place] [address] Aug, [facility] [address] [id number] [address] [place] [address], [place] [address] Jul, [facility] [address] [id number] [address] [place] [address], [place] [address] Jul, [facility] [address] [id number] [address] [place] [address], [place] [address] Jul, [facility] [address] [id number] [address] [place] [address], [place] [address] Jul, [facility] [address] [id number] [address] [place] [address], [place] [address] Jul, [facility] [address] [id number] [address] [place] [address], [place] [address] 05 Jul, 2011 [facility] [address] [id number] [address] [place] [address], [place] [address] 05 Jul, 2011 [facility] [address] [id number] [address] [place] [address], [place] [address] Jul, [facility] [address] [id number] [address] [place] [address], [place] [address] 30 Jun, 2011 [facility] [address] [id number] [address] [place] [address], [place] [address] 26 Jun, 2011 [facility] [address] [id number] [address] [place] [address], [place] [address] Jun, [facility] [address] [id number] [address] [place] [address], [place] [address] 08 Jun, 2011 [facility] [address] [id number] [address] [place] [address], [place] [address] Jun, [facility] [address] [id number] [address] [place] [address], [place] [address] May, [facility] [address] [id number] [address] [place] [address], [place] [address] May, [facility] [address] [id number] [address] [place] [address], [place] [address] 17 May, 2011 [facility] [address] [id number] [address] [place] [address], [place] [address] 15 May, 2011 [facility] [address] [id number] [address] [place] [address], [place] [address] May, [facility] [address] [id number] [address] [place] [address], [place] [address] 08 May, 2011 [facility] [address] [id number] [address] [place] [address], [place] [address] 19 Apr, 2011 [facility] [address] [id number] [address] [place] [address], [place] [address] 13 Apr, 2011 [facility] [address] [id number] [address] [place] [address] Apr, [facility] [address] [id number] [address] [place] [address] Feb, [facility] [address] [id number] [address] [place] [address] Feb, [facility] [address] [id number] [address] [place] [address] Oct, [facility] [address] [id number] [address] [place] [address] Jul, [facility] [address] [id number] [address] [place] [address] Jul, [facility] [address] [id number] [address] [place] [address] Jun, [facility] [address] [id number] [address] [place] [address] May, [facility] [address] [id number] [address] [place] [address] May, [facility] [address] [id number] [address] [place] [address] May, [facility] [address] [id number] [address] [place] [address] Apr, [facility] [address] [id number] [address] [place] [address] Jan, [facility] [address] [id number] [address] [place] [address] November, IMMUNIZATIONS No Known Immunizations SOCIAL HISTORY Never Assessed REASON FOR VISIT EMR-[facility] [place] PLAN OF CARE VITAL SIGNS [...]
--- OUTSIDE RECORDS SUMMARY | 2020-01-31 09:49 | XMS REPORT ---
Author Author Ivet Knott Doctor Organization [facility] Address Unknown Phone Unavailable Care Team Providers Care Sheet Roller Operator Name Role Phone Migration, Doctor Unavailable Unavailable PROBLEMS Type Condition ICD9-CM Code ZYE23-PO Code Onset Dates Condition S tatus SNOMED Code Problem Depression F32.9 Active 51705692 Problem Hypothyroidism E03.9 Active 23063 008 Problem GERD (gastroesophageal reflux disease) K21.9 Active 939710227 Problem Schizo affective schizophrenia F25.0 Active 861304960 Problem Osteoarthritis M19.90 Active 12832 5006 Problem Low back pain, unspecified b ack pain laterality, unspecified chronicity, with sciatica presence unspecified M54.5 Active 898573222 Problem Iron deficiency anemia, unspecified iron deficiency an emia type D50.9 Active 40266213 Problem Essential hypertension I10 Active 46783650 Problem Secondary hyperparathyroidism, not elsewhere classified E21.1 Active 90868154 Problem Anxiety F41.9 Active 33161724 Problem Bilateral carotid artery disease I77.9 Active 683908500 Problem Stage 3 chronic kidney disease N18.3 Active 245281993 Problem Fibromyalgia M79.7 Active 3918499 05 Problem Vitamin D deficiency E55.9 Active 69507521 ALLERGIES No Information ENCOUNTERS Encounter Location Date Diagnosis [facility] [address] [place] [address] Oct, Sore throat J02.9 and Acute nasopharyngitis J00 [facility] [address] [place] [id number] [place] [address] Sep, Osteoarthritis M19.90 [facility] [id number] [address] [place] [address] Sep, Acute non-recurrent maxillar y sinusitis J01.00 [facility] [id number] [place] [address] 18 Aug, 2018 Acute non-recurrent pansinus itis J01.40 [facility] [address] [address] Jul, Osteoarthritis M19.90 [facility] [address] [address] Jul, [place] [address] [address] Apr, Osteoarthritis M19.90 [place] [address] [address] Apr, Fibromyalgia M79.7 ; Essenti al hypertension I10 ; Encounter for immunization Z23 ; Stage 3 chronic kidney disease N18.3 and Depression F32.9 [place] [address] [address] Dec, Fibromyalgia M79.7 ; Osteoar thritis M19.90 and Encounter for medication management Z79.899 [facility] [address] [address] November, Nausea and vomiting, intract ability of vomiting not specified, unspecified vomiting type R11.2 and Dizziness R42 [place] [address] [address] November, Fibromyalgia M79.7 [place] [address] [address] November, Medicare annual wellness vis it, initial Z00.00 ; Anxiety F41.9 ; Depression F32.9 ; Stage 3 chronic kidney disease N18.3 ; Fibromyalgia M79.7 ; Essential hypertension I10 ; Secondary hyperparathyroidism, not elsewhere classified E21.1 ; Osteoarthritis M19.90 ; Hypothyroidism E03.9 and Encounter for immunization Z23 [facility] [address] [address] Oct, [facility] [address] [address] Oct, Sebaceous cyst L72.3 [facility] [id number] [place] [address] 27 Sep, 2017 Low back pain, unspecified b ack pain laterality, unspecified chronicity, with sciatica presence unspecified M54.5 and Secondary hyperparathyroidism, not elsewhere classified E21.1 [facility] [address] [address] 13 Sep, 2017 Fibromyalgia M79.7 [facility] [address] [address] 05 Sep, 2017 Fibromyalgia M79.7 ; Plantar fasciitis, bilateral M72.2 ; Essential hypertension I10 ; Depression F32.9 and Epidermoid cyst L72.0 [place] [address] [address] Jul, [place] [address] [address] Jul, Fibromyalgia M79.7 ; Iron de ficiency anemia, unspecified iron deficiency anemia type D50.9 and Acute nasopharyngitis J00 [facility] [address] [address] Jun, Sore throat J02.9 and Acute serous otitis media of left ear, recurrence not specified H65.02 [facility] [address] [address] Jun, Hypothyroidism E03.9 [facility] [address] [address] Jun, [place] [address] [address] Jun, Hypothyroidism E03.9 ; Essen tial hypertension I10 and Osteoarthritis M19.90 [facility] [address] [address] May, [facility] [address] [address] May, [place] [address] [address] Feb, [place] [address] [address] Feb, Leonela-menopausal N95.1 and To bacco use Z72.[address] [address] Jan, [place] [address] [address] Jan, Osteoarthritis M19.90 ; Bila teral carotid artery disease I77.9 ; Raynauds syndrome I73.00 ; Essential hypertension I10 ; Allergic rhinitis J30.9 ; Stage 3 chronic kidney disease N18.3 ; Fibromyalgia M79.7 ; Hypothyroidism E03.9 ; GERD (gastroesophageal reflux disease) K21.9 and Vitamin D deficiency E55.9 [place] [address] [address] Dec, Raynauds syndrome I73.00 ; P lantar fascial fibromatosis M72.2 ; Osteoarthritis M19.90 and Fibromyalgia M79.7 [place] [address] [place] [address] [place] [address] Dec, [place] [address] [address] Dec, [place] [address] [address] Oct, Function kidney decreased N2 8.9 [facility] [address] [place] [id number] Oct, Dental examination Z01.20 [place] [address] [place] [id number] [place] [address] Oct, Essential hypertension I10 a nd Function kidney decreased N28.9 [facility] [address] [place] [id number] [address] [place] [id number] 04 Oct, 2016 Dental examination Z01.20 [facility] [address] [id number] [place] [address] Oct, [facility] [id number] [place] [address] 24 Sep, 2016 Other specified disorders in volving the immune mechanism D89.89 and Schizo affective schizophrenia F25.0 [facility] [address] [address] 21 Sep, 2016 Schizo affective schizophren ia F25.0 [facility] [address] [address] 16 Sep, 2016 Eustachian tube dysfunction, bilateral H69.83 [place] [address] [address] 15 Sep, 2016 [facility] [address] [address] 14 Sep, 2016 [facility] [address] [address] 14 Sep, 2016 [facility] [address] [address] 13 Sep, 2016 Eustachian tube dysfunction, bilateral H69.83 [facility] [address] [address] 09 Sep, 2016 Allergic rhinitis J30.9 ; Es sential hypertension I10 ; Hypothyroidism E03.9 and Schizo affective schizophrenia F25.0 [facility] [address] [address] [id number] [place] [address] Jul, Eustachian tube dysfunction, bilateral H69.83 and Visit for TB skin test Z11.1 [facility] [address] [place] [address] Jul, Subacute pansinusitis J01.40 [facility] [address] [address] Jun, Schizo affective schizophren ia F25.0 ; Depression F32.9 ; Allergic rhinitis J30.9 ; Raynauds syndrome I73.00 ; Essential hypertension I10 ; Slow transit constipation K59.01 ; GERD (gastroesophageal reflux disease) K21.9 ; Hypothyroidism E03.9 ; Nicotine addiction F17.200 ; Other viral agents as the cause of diseases classified elsewhere B97.89 ; Acute upper respiratory infection, unspecified J06.9 and Osteoarthritis M19.90 [place] [address] [address] Jun, Allergic rhinitis J30.9 and GERD (gastroesophageal reflux disease) K21.9 [place] [address] [address] May, [place] [address] [address] Mar, Schizo affective schizophren ia F25.0 [place] [address] [address] Mar, Schizo affective schizophren ia F25.0 [place] [address] [address] Mar, Schizo affective schizophren ia F25.0 [place] [address] [address] Mar, Acute non-recurrent maxillar y sinusitis J01.00 [place] [address] [address] Feb, Schizo affective schizophren ia F25.0 [place] [address] [address] Feb, Contact dermatitis and eczem a L25.9 [place] [address] [address] Jan, [place] [address] [address] Jan, Schizo affective schizophren ia F25.0 ; Slow transit constipation K59.01 ; Essential hypertension I10 ; GERD (gastroesophageal reflux disease) K21.9 ; Hypothyroidism E03.9 ; Osteoarthritis M19.90 ; Low back pain, unspecified back pain laterality, unspecified chronicity, with sciatica presence unspecified M54.5 and Bilateral carotid artery disease I77.9 [place] [address] [address] Oct, [place] [address] [address] Sep, Hypothyroid E03.9 [place] [address] [address] Sep, Schizo affective schizophren ia F25.0 ; Depression F32.9 ; Anxiety F41.9 ; Allergic rhinitis J30.9 ; Raynauds syndrome I73.00 ; Insomnia G47.00 ; Essential hypertension I10 ; GERD (gastroesophageal reflux disease) K21.9 ; Hypothyroidism E03.9 and Vitamin D deficiency E55.9 [place] [address] [address] Sep, [place] [address] [address] Sep, [place] [address] [address] Aug, Allergic rhinitis J30.9 ; De pression F32.9 ; Anxiety F41.9 ; Raynauds syndrome I73.00 ; Insomnia G47.00 and GERD (gastroesophageal reflux disease) K21.9 [place] [address] [address] Aug, MONICA (secretory otitis media) H65.90 and Raynauds syndrome I73.00 [facility] [address] [address] Jul, Acute otitis externa of both ears, unspecified type H60.503 [place] [address] [place] [id number] [place] [address] Jun, [place] [address] [place] [address] [place] [address] Jun, Essential hypertension I10 ; Allergic rhinitis J30.9 ; Hypothyroidism E03.9 and Osteoarthritis M19.90 [place] [address] [place] [address] [place] [address] Jun, Routine adult health mainten ance Z00.00 ; Hypothyroidism E03.9 ; Essential hypertension I10 ; Insomnia G47.00 ; Nicotine addiction F17.200 ; Raynauds syndrome I73.00 ; GERD (gastroesophageal reflux disease) K21.9 ; Allergic rhinitis J30.9 ; Anxiety F41.9 ; Depression F32.9 and Schizo affective schizophrenia F25.0 [place] [address] [place] [address] [place] [address] May, Upper respiratory tract infe ction, unspecified type J06.9 [place] [address] [address] Mar, [facility] [id number] [place], [facility] [id number] Mar, [place] [address] [place] [id number] [place] [address] Mar, [place] [address] [place] [address] [place] [address] Mar, [place] [address] [place] [address] [place] [address] Feb, Jaw pain 784.92 and Environm ental and seasonal allergies 477.8 [place] [address] [place] [address] [place] [address] Feb, [place] [address] [address] Oct, [facility] [address] [id number] [address] [place] [address], [place] [address] Oct, [facility] [address] [id number] [address] [place] [address], [place] [address] Oct, [facility] [address] [id number] [address] [place] [address], [place] [address] Oct, [facility] [address] [id number] [address] [place] [address], [place] [address] Sep, [facility] [address] [id number] [address] [place] [address], [place] [address] Sep, [facility] [address] [id number] [address] [place] [address], [place] [address] Jul, [facility] [address] [id number] [address] [place] [address], [place] [address] Jul, [facility] [address] [id number] [address] [place] [address], [place] [address] Jul, [facility] [address] [id number] [address] [place] [address], [place] [address] Jul, [facility] [address] [id number] [address] [place] [address], [place] [address] Jul, [facility] [address] [id number] [address] [place] [address], [place] [address] Jul, [facility] [address] [id number] [address] [place] [address], [place] [address] Jul, [facility] [address] [id number] [address] [place] [address], [place] [address] Jun, [facility] [address] [id number] [address] [place] [address], [place] [address] Jun, [facility] [address] [id number] [address] [place] [address], [place] [address] Jun, [facility] [address] [id number] [address] [place] [address], [place] [address] 18 Jun, 2014 [facility] [address] [id number] [address] [place] [address], [place] [address] Jun, [facility] [address] [id number] [address] [place] [address], [place] [address] Jun, [facility] [address] [id number] [address] [place] [address], [place] [address] Jun, [facility] [address] [id number] [address] [place] [address], [place] [address] Jun, [facility] [address] [id number] [address] [place] [address], [place] [address] Apr, [facility] [address] [id number] [address] [place] [address], [place] [address] Apr, [facility] [address] [id number] [address] [place] [address], [place] [address] Mar, [facility] [address] [id number] [address] [place] [address], [place] [address] Mar, [facility] [address] [id number] [address] [place] [address], [place] [address] Mar, [facility] [address] [id number] [address] [place] [address], [place] [address] Mar, [facility] [address] [id number] [address] [place] [address], [place] [address] Jan, [facility] [address] [id number] [address] [place] [address], [place] [address] Jan, [facility] [address] [id number] [address] [place] [address], [place] [address] Oct, [facility] [address] [id number] [address] [place] [address], [place] [address] Oct, [facility] [address] [id number] [address] [place] [address], [place] [address] Sep, [facility] [address] [id number] [address] [place] [address], [place] [address] Sep, [facility] [address] [id number] [address] [place] [address], [place] [address] Sep, [facility] [address] [id number] [address] [place] [address], [place] [address] Sep, [facility] [address] [id number] [address] [place] [address], [place] [address] Sep, [facility] [address] [id number] [address] [place] [address], [place] [address] Sep, [facility] [address] [id number] [address] [place] [address], [place] [address] Aug, [facility] [address] [id number] [address] [place] [address], [place] [address] Aug, [facility] [address] [id number] [address] [place] [address], [place] [address] Jul, [facility] [address] [id number] [address] [place] [address], [place] [address] Jul, [facility] [address] [id number] [address] [place] [address], [place] [address] Jul, [facility] [address] [id number] [address] [place] [address], [place] [address] Jul, [facility] [address] [id number] [address] [place] [address], [place] [address] Jun, [facility] [address] [id number] [address] [place] [address], [place] [address] Jun, [facility] [address] [id number] [address] [place] [address], [place] [address] May, [facility] [address] [id number] [address] [place] [address], [place] [address] May, [facility] [address] [id number] [address] [place] [address] [place] [address] Apr, [facility] [address] [id number] [address] [place] [address], [place] [address] Apr, [facility] [address] [id number] [address] [place] [address], [place] [address] Apr, [facility] [address] [id number] [address] [place] [address], [place] [address] Apr, [facility] [address] [id number] [address] [place] [address], [place] [address] Apr, [facility] [address] [id number] [address] [place] [address], [place] [address] Apr, [facility] [address] [id number] [address] [place] [address], [place] [address] 24 Mar, 2013 [facility] [address] [id number] [address] [place] [address], [place] [address] 12 Mar, 2013 [facility] [address] [id number] [address] [place] [address], [place] [address] 09 Mar, 2012 [facility] [address] [id number] [address] [place] [address], [place] [address] 05 Mar, 2012 [facility] [address] [id number] [address] [place] [address], [place] [address] 05 Mar, 2013 [facility] [address] [id number] [address] [place] [address], [place] [address] 30 Feb, 2013 [facility] [address] [id number] [address] [place] [address], [place] [address] Feb, [facility] [address] [id number] [address] [place] [address], [place] [address] Feb, [facility] [address] [id number] [address] [place] [address], [place] [address] Feb, [facility] [address] [id number] [address] [place] [address], [place] [address] Jan, [facility] [address] [id number] [facility] [place] [address] 17 Jan, 2013 [facility] [address] [id number] [address] [place] [address], [place] [address] 16 Jan, 2013 [facility] [address] [id number] [address] [place] [address], [place] [address] 11 Jan, 2013 [facility] [address] [id number] [address] [place] [address], [place] [address] 03 Jan, 2013 [facility] [address] [id number] [address] [place] [address], [place] [address] 02 Jan, 2013 [facility] [address] [id number] [address] [place] [address], [place] [address] 27 Dec, 2012 [facility] [address] [id number] [address] [place] [address], [place] [address] 25 Dec, 2012 [facility] [address] [id number] [address] [place] [address], [place] [address] 19 Dec, 2012 [facility] [address] [id number] [address] [place] [address], [place] [address] 14 Dec, 2012 [facility] [address] [id number] [address] [place] [address], [place] [address] 13 Dec, 2012 [facility] [address] [id number] [address] [place] [address], [place] [address] 12 Dec, 2012 [facility] [address] [id number] [address] [place] [address], [place] [address] 11 Dec, 2012 [facility] [address] [id number] [address] [place] [address], [place] [address] 07 Dec, 2012 [facility] [address] [id number] [address] [place] [address], [place] [address] 05 Dec, 2012 [facility] [address] [id number] [address] [place] [address], [place] [address] 03 Dec, 2012 [facility] [address] [id number] [address] [place] [address], [place] [address] November, [facility] [address] [id number] [address] [place] [address], [place] [address] November, [facility] [address] [id number] [address] [place] [address], [place] [address] November, [facility] [address] [id number] [address] [place] [address], [place] [address] November, [facility] [address] [id number] [address] [place] [address], [place] [address] November, [facility] [address] [id number] [address] [place] [address], [place] [address] Oct, [facility] [address] [id number] [address] [place] [address], [place] [address] Oct, [facility] [address] [id number] [address] [place] [address], [place] [address] Oct, [facility] [address] [id number] [address] [place] [address], [place] [address] Oct, [facility] [address] [id number] [address] [place] [address], [place] [address] Oct, [facility] [address] [id number] [address] [place] [address], [place] [address] Sep, [facility] [address] [id number] [address] [place] [address], [place] [address] Sep, [facility] [address] [id number] [address] [place] [address], [place] [address] Sep, [facility] [address] [id number] [address] [place] [address], [place] [address] Sep, [facility] [address] [id number] [address] [place] [address], [place] [address] Aug, [facility] [address] [id number] [address] [place] [address], [place] [address] Aug, [facility] [address] [id number] [address] [place] [address], [place] [address] 18 Aug, 2012 [facility] [address] [id number] [address] [place] [address], [place] [address] 15 Aug, 2012 [facility] [address] [id number] [address] [place] [address], [place] [address] 17 Jun, 2012 [facility] [address] [id number] [address] [place] [address], [place] [id number] Jun, [facility] [address] [id number] [address] [place] [address], [place] [address] Jun, [facility] [address] [id number] [address] [place] [address], [place] [address] Jun, [facility] [address] [id number] [address] [place] [address], [place] [address] Jun, [facility] [address] [id number] [address] [place] [address], [place] [address] Jun, [facility] [address] [id number] [address] [place] [address], [place] [address] Jun, [facility] [address] [id number] [address] [place] [address], [place] [address] Jun, [facility] [address] [id number] [address] [place] [address], [place] [address] Jun, [facility] [address] [id number] [address] [place] [address], [place] [address] Jun, [facility] [address] [id number] [address] [place] [address], [place] [address] May, [facility] [address] [id number] [address] [place] [address], [place] [address] May, [facility] [address] [id number] [address] [place] [address], [place] [address] May, [facility] [address] [id number] [address] [place] [address], [place] [address] May, [facility] [address] [id number] [address] [place] [address], [place] [address] 26 May, 2012 [facility] [address] [id number] [address] [place] [address], [place] [address] 16 May, 2012 [facility] [address] [id number] [address] [place] [address], [place] [address] 16 May, 2012 [facility] [address] [id number] [address] [place] [address], [place] [address] 14 May, 2012 [facility] [address] [id number] [address] [place] [address], [place] [address] 14 May, 2012 [facility] [address] [id number] [address] [place] [address], [place] [address] 30 Apr, 2012 [facility] [address] [id number] [address] [place] [address], [place] [address] 30 Apr, 2012 [facility] [address] [id number] [address] [place] [address], [place] [address] 17 Apr, 2012 [facility] [address] [id number] [address] [place] [address], [place] [address] Apr, [facility] [address] [id number] [address] [place] [address], [place] [address] Apr, [facility] [address] [id number] [address] [place] [address], [place] [address] 18 Mar, 2012 [facility] [address] [id number] [address] [place] [address], [place] [address] 17 Mar, 2012 [facility] [address] [id number] [address] [place] [address], [place] [address] 07 Mar, 2012 [facility] [address] [id number] [address] [place] [address], [place] [address] 27 Feb, 2012 [facility] [address] [id number] [address] [place] [address], [place] [address] 16 Feb, 2012 [facility] [address] [id number] [address] [place] [address] [place] [address] Feb, [facility] [address] [id number] [address] [place] [address], [place] [address] Feb, [facility] [address] [id number] [address] [place] [address], [place] [address] Jan, [facility] [address] [id number] [address] [place] [address], [place] [address] Jan, [facility] [address] [id number] [address] [place] [address], [place] [address] Jan, [facility] [address] [id number] [address] [place] [address], [place] [address] Jan, [facility] [address] [id number] [address] [place] [address], [place] [address] Jan, [facility] [address] [id number] [address] [place] [address], [place] [address] Jan, [facility] [address] [id number] [address] [place] [address], [place] [address] Dec, [facility] [address] [id number] [address] [place] [address], [place] [address] Dec, [facility] [address] [id number] [address] [place] [address], [place] [address] Dec, [facility] [address] [id number] [address] [place] [address], [place] [address] November, [facility] [address] [id number] [address] [place] [address], [place] [address] November, [facility] [address] [id number] [address] [place] [address], [place] [address] November, [facility] [address] [id number] [address] [place] [address], [place] [address] November, [facility] [address] [id number] [address] [place] [address], [place] [address] Oct, [facility] [address] [id number] [address] [place] [address], [place] [address] Oct, [facility] [address] [id number] [address] [place] [address], [place] [address] Oct, [facility] [address] [id number] [address] [place] [address], [place] [address] Sep, [facility] [address] [id number] [address] [place] [address], [place] [address] Sep, [facility] [address] [id number] [address] [place] [address], [place] [address] Aug, [facility] [address] [id number] [address] [place] [address], [place] [address] Aug, [facility] [address] [id number] [address] [place] [address], [place] [address] Aug, [facility] [address] [id number] [address] [place] [address], [place] [address] Aug, [facility] [address] [id number] [address] [place] [address], [place] [address] Jul, [facility] [address] [id number] [address] [place] [address], [place] [address] Jul, [facility] [address] [id number] [address] [place] [address], [place] [address] Jul, [facility] [address] [id number] [address] [place] [address], [place] [address] Jul, [facility] [address] [id number] [address] [place] [address], [place] [address] Jul, [facility] [address] [id number] [address] [place] [address], [place] [address] Jul, [facility] [address] [id number] [address] [place] [address], [place] [address] Jul, [facility] [address] [id number] [address] [place] [address] Jul, [facility] [address] [id number] [address] [place] [address], [place] [address] 30 Jun, 2011 [facility] [address] [id number] [address] [place] [address], [place] [address] Jun, [facility] [address] [id number] [address] [place] [address], [place] [address] 15 Jun, 2011 [facility] [address] [id number] [address] [place] [address] 08 Jun, 2011 [facility] [address] [id number] [address] [place] [address], [place] [address] Jun, [facility] [address] [id number] [address] [place] [address], [place] [address] May, [facility] [address] [id number] [address] [place] [address], [place] [address] May, [facility] [address] [id number] [address] [place] [address], [place] [address] May, [facility] [address] [id number] [address] [place] [address] May, [facility] [address] [id number] [address] [place] [address], [place] [address] May, [facility] [address] [id number] [address] [place] [address] May, [facility] [address] [id number] [address] [place] [address] Apr, [facility] [address] [id number] [address] [place] [address], [place] [address] Apr, [facility] [address] [id number] [address] [place] [address] Apr, [facility] [address] [id number] [address] [place] [address], [place] [address] Feb, [facility] [address] [id number] [address] [place] [address] Feb, [facility] [address] [id number] [address] [place] [address] Oct, [facility] [address] [id number] [address] [place] [address] Jul, [facility] [address] [id number] [address] [place] [address] Jul, [facility] [address] [id number] [address] [place] [address] Jun, [facility] [address] [id number] [address] [place] [address] May, [facility] [address] [id number] [address] [place] [address] May, [facility] [address] [id number] [address] [place] [address] May, [facility] [address] [id number] [address] [place] [address] Apr, [facility] [address] [id number] [address] [place] [address] Jan, [facility] [address] [id number] [address] [place] [address] November, IMMUNIZATIONS No Known Immunizations SOCIAL HISTORY Never Assessed REASON FOR VISIT [facility] PLAN OF CARE VITAL SIGNS MEDICATIONS No [...]
--- OUTSIDE RECORDS SUMMARY | 2020-01-31 09:49 | XMS REPORT ---
Author Author Ivet Knott Doctor Organization [facility] Address Unknown Phone Unavailable Care Team Providers Care Insurance Coder Name Role Phone Migration, Doctor Unavailable Unavailable PROBLEMS Type Condition ICD9-CM Code SKU79-HX Code Onset Dates Condition S tatus SNOMED Code Problem Depression F32.9 Active 70177979 Problem Hypothyroidism E03.9 Active 06008 008 Problem GERD (gastroesophageal reflux disease) K21.9 Active 091175749 Problem Schizo affective schizophrenia F25.0 Active 379863972 Problem Osteoarthritis M19.90 Active 62427 5006 Problem Low back pain, unspecified b ack pain laterality, unspecified chronicity, with sciatica presence unspecified M54.5 Active 799262542 Problem Iron deficiency anemia, unspecified iron deficiency an emia type D50.9 Active 64222869 Problem Essential hypertension I10 Active 79726575 Problem Secondary hyperparathyroidism, not elsewhere classified E21.1 Active 76645453 Problem Anxiety F41.9 Active 06899347 Problem Bilateral carotid artery disease I77.9 Active 011077954 Problem Stage 3 chronic kidney disease N18.3 Active 986239674 Problem Fibromyalgia M79.7 Active 9211104 05 Problem Vitamin D deficiency E55.9 Active 48251560 ALLERGIES No Information ENCOUNTERS Encounter Location Date Diagnosis [facility] [address] [place] [address] Oct, Sore throat J02.9 and Acute nasopharyngitis J00 [facility] [address] [place] [id number] [place] [address] Sep, Osteoarthritis M19.90 [facility] [address] [place] [id number] [address] [place] [address] Sep, Acute non-recurrent maxillar y sinusitis J01.00 [facility] [address] [id number] [address] [place] [address] 18 Aug, 2018 Acute non-recurrent pansinus itis J01.40 [facility] [address] [address] Jul, Osteoarthritis M19.90 [facility] [address] [address] Jul, [place] [address] [address] Apr, Osteoarthritis M19.90 [place] [address] [address] Apr, Fibromyalgia M79.7 ; Essenti al hypertension I10 ; Encounter for immunization Z23 ; Stage 3 chronic kidney disease N18.3 and Depression F32.9 [place] [address] [address] Dec, Fibromyalgia M79.7 ; Osteoar thritis M19.90 and Encounter for medication management Z79.899 [facility] [address] [address] November, Nausea and vomiting, intract ability of vomiting not specified, unspecified vomiting type R11.2 and Dizziness R42 [place] [address] [address] November, Fibromyalgia M79.7 [place] [address] [address] November, Medicare annual wellness vis it, initial Z00.00 ; Anxiety F41.9 ; Depression F32.9 ; Stage 3 chronic kidney disease N18.3 ; Fibromyalgia M79.7 ; Essential hypertension I10 ; Secondary hyperparathyroidism, not elsewhere classified E21.1 ; Osteoarthritis M19.90 ; Hypothyroidism E03.9 and Encounter for immunization Z23 [facility] [address] [address] Oct, [facility] [address] [address] Oct, Sebaceous cyst L72.3 [facility] [address] [id number] [place] [address] 27 Sep, 2017 Low back pain, unspecified b ack pain laterality, unspecified chronicity, with sciatica presence unspecified M54.5 and Secondary hyperparathyroidism, not elsewhere classified E21.1 [facility] [address] [address] 13 Sep, 2017 Fibromyalgia M79.7 [facility] [address] [address] 05 Sep, 2017 Fibromyalgia M79.7 ; Plantar fasciitis, bilateral M72.2 ; Essential hypertension I10 ; Depression F32.9 and Epidermoid cyst L72.0 [place] [address] [address] Jul, [place] [address] [address] Jul, Fibromyalgia M79.7 ; Iron de ficiency anemia, unspecified iron deficiency anemia type D50.9 and Acute nasopharyngitis J00 [facility] [address] [address] Jun, Sore throat J02.9 and Acute serous otitis media of left ear, recurrence not specified H65.02 [facility] [address] [address] Jun, Hypothyroidism E03.9 [facility] [address] [address] Jun, [place] [address] [address] Jun, Hypothyroidism E03.9 ; Essen tial hypertension I10 and Osteoarthritis M19.90 [facility] [address] [address] May, [facility] [address] [address] May, [place] [address] [address] Feb, [place] [address] [address] Feb, Leonela-menopausal N95.1 and To bacco use Z72.[address] [address] Jan, [place] [address] [address] Jan, Osteoarthritis M19.90 ; Bila teral carotid artery disease I77.9 ; Raynauds syndrome I73.00 ; Essential hypertension I10 ; Allergic rhinitis J30.9 ; Stage 3 chronic kidney disease N18.3 ; Fibromyalgia M79.7 ; Hypothyroidism E03.9 ; GERD (gastroesophageal reflux disease) K21.9 and Vitamin D deficiency E55.9 [place] [address] [address] Dec, Raynauds syndrome I73.00 ; P lantar fascial fibromatosis M72.2 ; Osteoarthritis M19.90 and Fibromyalgia M79.7 [place] [address] [place] [id number] [place] [address] Dec, [place] [address] [address] Dec, [place] [address] [address] Oct, Function kidney decreased N2 8.9 [facility] [address] [place] [id number] Oct, Dental examination Z01.20 [place] [address] [place] [id number] [place] [address] Oct, Essential hypertension I10 a nd Function kidney decreased N28.9 [facility] [address] [place] [id number] [address] [place] [id number] 04 Oct, 2016 Dental examination Z01.20 [facility] [address] [id number] [place] [address] Oct, [facility] [address] [id number] [place] [address] 24 Sep, 2016 Other specified disorders in volving the immune mechanism D89.89 and Schizo affective schizophrenia F25.0 [facility] [address] [address] 21 Sep, 2016 Schizo affective schizophren ia F25.0 [facility] [address] [address] 16 Sep, 2016 Eustachian tube dysfunction, bilateral H69.83 [place] [address] [address] 15 Sep, 2016 [facility] [address] [address] 14 Sep, 2016 [facility] [address] [address] 14 Sep, 2016 [facility] [address] [address] 13 Sep, 2016 Eustachian tube dysfunction, bilateral H69.83 [facility] [address] [address] 09 Sep, 2016 Allergic rhinitis J30.9 ; Es sential hypertension I10 ; Hypothyroidism E03.9 and Schizo affective schizophrenia F25.0 [facility] [address] [place] [id number] [place] [address] Jul, Eustachian tube dysfunction, bilateral H69.83 and Visit for TB skin test Z11.1 [facility] [address] [place] [address] Jul, Subacute pansinusitis J01.40 [facility] [address] [address] Jun, Schizo affective schizophren ia F25.0 ; Depression F32.9 ; Allergic rhinitis J30.9 ; Raynauds syndrome I73.00 ; Essential hypertension I10 ; Slow transit constipation K59.01 ; GERD (gastroesophageal reflux disease) K21.9 ; Hypothyroidism E03.9 ; Nicotine addiction F17.200 ; Other viral agents as the cause of diseases classified elsewhere B97.89 ; Acute upper respiratory infection, unspecified J06.9 and Osteoarthritis M19.90 [place] [address] [address] Jun, Allergic rhinitis J30.9 and GERD (gastroesophageal reflux disease) K21.9 [place] [address] [address] May, [place] [address] [address] Mar, Schizo affective schizophren ia F25.0 [place] [address] [address] Mar, Schizo affective schizophren ia F25.0 [place] [address] [address] Mar, Schizo affective schizophren ia F25.0 [place] [address] [address] Mar, Acute non-recurrent maxillar y sinusitis J01.00 [place] [address] [address] Feb, Schizo affective schizophren ia F25.0 [place] [address] [address] Feb, Contact dermatitis and eczem a L25.9 [place] [address] [address] Jan, [place] [address] [address] Jan, Schizo affective schizophren ia F25.0 ; Slow transit constipation K59.01 ; Essential hypertension I10 ; GERD (gastroesophageal reflux disease) K21.9 ; Hypothyroidism E03.9 ; Osteoarthritis M19.90 ; Low back pain, unspecified back pain laterality, unspecified chronicity, with sciatica presence unspecified M54.5 and Bilateral carotid artery disease I77.9 [place] [address] [address] Oct, [place] [address] [address] Sep, Hypothyroid E03.9 [place] [address] [address] Sep, Schizo affective schizophren ia F25.0 ; Depression F32.9 ; Anxiety F41.9 ; Allergic rhinitis J30.9 ; Raynauds syndrome I73.00 ; Insomnia G47.00 ; Essential hypertension I10 ; GERD (gastroesophageal reflux disease) K21.9 ; Hypothyroidism E03.9 and Vitamin D deficiency E55.9 [place] [address] [address] Sep, [place] [address] [address] Sep, [place] [address] [address] Aug, Allergic rhinitis J30.9 ; De pression F32.9 ; Anxiety F41.9 ; Raynauds syndrome I73.00 ; Insomnia G47.00 and GERD (gastroesophageal reflux disease) K21.9 [place] [address] [address] Aug, MONICA (secretory otitis media) H65.90 and Raynauds syndrome I73.00 [facility] [address] [address] Jul, Acute otitis externa of both ears, unspecified type H60.503 [place] [address] [place] [id number] [place] [address] Jun, [place] [address] [place] [id number] [place] [address] Jun, Essential hypertension I10 ; Allergic rhinitis J30.9 ; Hypothyroidism E03.9 and Osteoarthritis M19.90 [place] [address] [place] [id number] [place] [address] Jun, Routine adult health mainten ance Z00.00 ; Hypothyroidism E03.9 ; Essential hypertension I10 ; Insomnia G47.00 ; Nicotine addiction F17.200 ; Raynauds syndrome I73.00 ; GERD (gastroesophageal reflux disease) K21.9 ; Allergic rhinitis J30.9 ; Anxiety F41.9 ; Depression F32.9 and Schizo affective schizophrenia F25.0 [place] [address] [place] [id number] [place] [address] May, Upper respiratory tract infe ction, unspecified type J06.9 [place] [address] [address] Mar, [facility] [id number] [place] [id number] Mar, [place] [address] [place] [id number] [place] [address] Mar, [place] [address] [place] [id number] [place] [address] Mar, [place] [address] [place] [id number] [place] [address] Feb, Jaw pain 784.92 and Environm ental and seasonal allergies 477.8 [place] [address] [place] [id number] [place] [address] Feb, [place] [address] [address] Oct, [facility] [address] [id number] [address] [place] [address], [place] [address] Oct, [facility] [address] [id number] [address] [place] [address], [place] [address] Oct, [facility] [address] [id number] [address] [place] [address], [place] [address] Oct, [facility] [address] [id number] [address] [place] [address], [place] [address] Sep, [facility] [address] [id number] [address] [place] [address], [place] [address] Sep, [facility] [address] [id number] [address] [place] [address], [place] [address] Jul, [facility] [address] [id number] [address] [place] [address], [place] [address] Jul, [facility] [address] [id number] [address] [place] [address], [place] [address] Jul, [facility] [address] [id number] [address] [place] [address], [place] [address] Jul, [facility] [address] [id number] [address] [place] [address], [place] [address] Jul, [facility] [address] [id number] [address] [place] [address], [place] [address] Jul, [facility] [address] [id number] [address] [place] [address], [place] [address] Jul, [facility] [address] [id number] [address] [place] [address], [place] [address] Jun, [facility] [address] [id number] [address] [place] [address], [place] [address] Jun, [facility] [address] [id number] [address] [place] [address], [place] [address] Jun, [facility] [address] [id number] [address] [place] [address], [place] [address] 18 Jun, 2014 [facility] [address] [id number] [address] [place] [address], [place] [address] Jun, [facility] [address] [id number] [address] [place] [address], [place] [address] Jun, [facility] [address] [id number] [address] [place] [address], [place] [address] Jun, [facility] [address] [id number] [address] [place] [address], [place] [address] Jun, [facility] [address] [id number] [address] [place] [address], [place] [address] Apr, [facility] [address] [id number] [address] [place] [address], [place] [address] Apr, [facility] [address] [id number] [address] [place] [address], [place] [address] Mar, [facility] [address] [id number] [address] [place] [address], [place] [address] Mar, [facility] [address] [id number] [address] [place] [address], [place] [address] Mar, [facility] [address] [id number] [address] [place] [address], [place] [address] Mar, [facility] [address] [id number] [address] [place] [address], [place] [address] Jan, [facility] [address] [id number] [address] [place] [address], [place] [address] Jan, [facility] [address] [id number] [address] [place] [address], [place] [address] Oct, [facility] [address] [id number] [address] [place] [address], [place] [address] Oct, [facility] [address] [id number] [address] [place] [address], [place] [address] Sep, [facility] [address] [id number] [address] [place] [address], [place] [address] Sep, [facility] [address] [id number] [address] [place] [address], [place] [address] Sep, [facility] [address] [id number] [address] [place] [address], [place] [address] Sep, [facility] [address] [id number] [address] [place] [address], [place] [address] Sep, [facility] [address] [id number] [address] [place] [address], [place] [address] Sep, [facility] [address] [id number] [address] [place] [address], [place] [address] Aug, [facility] [address] [id number] [address] [place] [address], [place] [address] Aug, [facility] [address] [id number] [address] [place] [address], [place] [address] Jul, [facility] [address] [id number] [address] [place] [address], [place] [address] Jul, [facility] [address] [id number] [address] [place] [address], [place] [address] Jul, [facility] [address] [id number] [address] [place] [address], [place] [address] Jul, [facility] [address] [id number] [address] [place] [address], [place] [address] Jun, [facility] [address] [id number] [address] [place] [address], [place] [address] Jun, [facility] [address] [id number] [address] [place] [address], [place] [address] May, [facility] [address] [id number] [address] [place] [address], [place] [address] May, [facility] [address] [id number] [address] [place] [address] [place] [address] Apr, [facility] [address] [id number] [address] [place] [address], [place] [address] Apr, [facility] [address] [id number] [address] [place] [address], [place] [address] Apr, [facility] [address] [id number] [address] [place] [address], [place] [address] Apr, [facility] [address] [id number] [address] [place] [address], [place] [address] Apr, [facility] [address] [id number] [address] [place] [address], [place] [address] Apr, [facility] [address] [id number] [address] [place] [address], [place] [address] 24 Mar, 2013 [facility] [address] [id number] [address] [place] [address], [place] [address] 12 Mar, 2013 [facility] [address] [id number] [address] [place] [address], [place] [address] 09 Mar, 2012 [facility] [address] [id number] [address] [place] [address], [place] [address] 05 Mar, 2012 [facility] [address] [id number] [address] [place] [address], [place] [address] 05 Mar, 2013 [facility] [address] [id number] [address] [place] [address], [place] [address] 30 Feb, 2013 [facility] [address] [id number] [address] [place] [address], [place] [address] Feb, [facility] [address] [id number] [address] [place] [address], [place] [address] Feb, [facility] [address] [id number] [address] [place] [address], [place] [address] Feb, [facility] [address] [id number] [address] [place] [address], [place] [address] Jan, [facility] [address] [id number] [facility] [place] [address] 17 Jan, 2013 [facility] [address] [id number] [address] [place] [address], [place] [address] 16 Jan, 2013 [facility] [address] [id number] [address] [place] [address], [place] [address] 11 Jan, 2013 [facility] [address] [id number] [address] [place] [address], [place] [address] 03 Jan, 2013 [facility] [address] [id number] [address] [place] [address], [place] [address] 02 Jan, 2013 [facility] [address] [id number] [address] [place] [address], [place] [address] 27 Dec, 2012 [facility] [address] [id number] [address] [place] [address], [place] [address] 25 Dec, 2012 [facility] [address] [id number] [address] [place] [address], [place] [address] 19 Dec, 2012 [facility] [address] [id number] [address] [place] [address], [place] [address] 14 Dec, 2012 [facility] [address] [id number] [address] [place] [address], [place] [address] 13 Dec, 2012 [facility] [address] [id number] [address] [place] [address], [place] [address] 12 Dec, 2012 [facility] [address] [id number] [address] [place] [address], [place] [address] 11 Dec, 2012 [facility] [address] [id number] [address] [place] [address], [place] [address] 07 Dec, 2012 [facility] [address] [id number] [address] [place] [address], [place] [address] 05 Dec, 2012 [facility] [address] [id number] [address] [place] [address], [place] [address] 03 Dec, 2012 [facility] [address] [id number] [address] [place] [address], [place] [address] November, [facility] [address] [id number] [address] [place] [address], [place] [address] November, [facility] [address] [id number] [address] [place] [address], [place] [address] November, [facility] [address] [id number] [address] [place] [address], [place] [address] November, [facility] [address] [id number] [address] [place] [address], [place] [address] November, [facility] [address] [id number] [address] [place] [address], [place] [address] Oct, [facility] [address] [id number] [address] [place] [address], [place] [address] Oct, [facility] [address] [id number] [address] [place] [address], [place] [address] Oct, [facility] [address] [id number] [address] [place] [address], [place] [address] Oct, [facility] [address] [id number] [address] [place] [address], [place] [address] Oct, [facility] [address] [id number] [address] [place] [address], [place] [address] Sep, [facility] [address] [id number] [address] [place] [address], [place] [address] Sep, [facility] [address] [id number] [address] [place] [address], [place] [address] Sep, [facility] [address] [id number] [address] [place] [address], [place] [address] Sep, [facility] [address] [id number] [address] [place] [address], [place] [address] Aug, [facility] [address] [id number] [address] [place] [address], [place] [address] Aug, [facility] [address] [id number] [address] [place] [address], [place] [address] 18 Aug, 2012 [facility] [address] [id number] [address] [place] [address], [place] [address] 15 Aug, 2012 [facility] [address] [id number] [address] [place] [address], [place] [address] 17 Jun, 2012 [facility] [address] [id number] [address] [place] [address], [place] [address] Jun, [facility] [address] [id number] [address] [place] [address], [place] [address] Jun, [facility] [address] [id number] [address] [place] [address], [place] [address] Jun, [facility] [address] [id number] [address] [place] [address], [place] [address] Jun, [facility] [address] [id number] [address] [place] [address], [place] [address] Jun, [facility] [address] [id number] [address] [place] [address], [place] [address] Jun, [facility] [address] [id number] [address] [place] [address], [place] [address] Jun, [facility] [address] [id number] [address] [place] [address], [place] [address] Jun, [facility] [address] [id number] [address] [place] [address], [place] [address] Jun, [facility] [address] [id number] [address] [place] [address], [place] [address] May, [facility] [address] [id number] [address] [place] [address], [place] [address] May, [facility] [address] [id number] [address] [place] [address], [place] [address] May, [facility] [address] [id number] [address] [place] [address], [place] [address] May, [facility] [address] [id number] [address] [place] [address], [place] [address] 26 May, 2012 [facility] [address] [id number] [address] [place] [address], [place] [address] 16 May, 2012 [facility] [address] [id number] [address] [place] [address], [place] [address] 16 May, 2012 [facility] [address] [id number] [address] [place] [address], [place] [address] 14 May, 2012 [facility] [address] [id number] [address] [place] [address], [place] [address] 14 May, 2012 [facility] [address] [id number] [address] [place] [address], [place] [address] 30 Apr, 2012 [facility] [address] [id number] [address] [place] [address], [place] [address] 30 Apr, 2012 [facility] [address] [id number] [address] [place] [address], [place] [address] 17 Apr, 2012 [facility] [address] [id number] [address] [place] [address], [place] [address] Apr, [facility] [address] [id number] [address] [place] [address], [place] [address] Apr, [facility] [address] [id number] [address] [place] [address], [place] [address] 18 Mar, 2012 [facility] [address] [id number] [address] [place] [address], [place] [address] 17 Mar, 2012 [facility] [address] [id number] [address] [place] [address], [place] [address] 07 Mar, 2012 [facility] [address] [id number] [address] [place] [address], [place] [address] 27 Feb, 2012 [facility] [address] [id number] [address] [place] [address], [place] [address] 16 Feb, 2012 [facility] [address] [id number] [address] [place] [address] [place] [address] Feb, [facility] [address] [id number] [address] [place] [address], [place] [address] Feb, [facility] [address] [id number] [address] [place] [address], [place] [address] Jan, [facility] [address] [id number] [address] [place] [address], [place] [address] Jan, [facility] [address] [id number] [address] [place] [address], [place] [address] Jan, [facility] [address] [id number] [address] [place] [address], [place] [address] Jan, [facility] [address] [id number] [address] [place] [address], [place] [address] Jan, [facility] [address] [id number] [address] [place] [address], [place] [address] Jan, [facility] [address] [id number] [address] [place] [address], [place] [address] Dec, [facility] [address] [id number] [address] [place] [address], [place] [address] Dec, [facility] [address] [id number] [address] [place] [address], [place] [address] Dec, [facility] [address] [id number] [address] [place] [address], [place] [address] November, [facility] [address] [id number] [address] [place] [address], [place] [address] November, [facility] [address] [id number] [address] [place] [address], [place] [address] November, [facility] [address] [id number] [address] [place] [address], [place] [address] November, [facility] [address] [id number] [address] [place] [address], [place] [address] Oct, [facility] [address] [id number] [address] [place] [address], [place] [address] Oct, [facility] [address] [id number] [address] [place] [address], [place] [address] Oct, [facility] [address] [id number] [address] [place] [address], [place] [address] Sep, [facility] [address] [id number] [address] [place] [address], [place] [address] Sep, [facility] [address] [id number] [address] [place] [address], [place] [address] Aug, [facility] [address] [id number] [address] [place] [address], [place] [address] Aug, [facility] [address] [id number] [address] [place] [address], [place] [address] Aug, [facility] [address] [id number] [address] [place] [address], [place] [address] Aug, [facility] [address] [id number] [address] [place] [address], [place] [address] Jul, [facility] [address] [id number] [address] [place] [address], [place] [address] Jul, [facility] [address] [id number] [address] [place] [address], [place] [address] Jul, [facility] [address] [id number] [address] [place] [address], [place] [address] Jul, [facility] [address] [id number] [address] [place] [address], [place] [address] Jul, [facility] [address] [id number] [address] [place] [address], [place] [address] Jul, [facility] [address] [id number] [address] [place] [address], [place] [address] Jul, [facility] [address] [id number] [address] [place] [id number] Jul, [facility] [address] [id number] [address] [place] [address], [place] [address] 30 Jun, 2011 [facility] [address] [id number] [address] [place] [address], [place] [address] Jun, [facility] [address] [id number] [address] [place] [address], [place] [address] 15 Jun, 2011 [facility] [address] [id number] [address] [place] [id number] 08 Jun, 2011 [facility] [address] [id number] [address] [place] [address], [place] [address] Jun, [facility] [address] [id number] [address] [place] [address], [place] [address] May, [facility] [address] [id number] [address] [place] [address], [place] [address] May, [facility] [address] [id number] [address] [place] [address], [place] [address] May, [facility] [address] [id number] [address] [place] [id number] May, [facility] [address] [id number] [address] [place] [address], [place] [address] May, [facility] [address] [id number] [address] [place] [address] May, [facility] [address] [id number] [address] [place] [id number] Apr, [facility] [address] [id number] [address] [place] [address], [place] [address] Apr, [facility] [address] [id number] [address] [place] [id number] Apr, [facility] [address] [id number] [address] [place] [address], [place] [address] Feb, [facility] [address] [id number] [address] [place] [id number] Feb, [facility] [address] [id number] [address] [place] [phone] Oct, [facility] [address] [id number] [address] [place] [phone] Jul, [facility] [address] [id number] [address] [place] [id number] Jul, [facility] [address] [id number] [address] [place] [id number] Jun, [facility] [address] [id number] [address] [place] [phone] May, [facility] [address] [id number] [address] [place] [id number] May, [facility] [address] [id number] [address] [place] [phone] May, [facility] [address] [id number] [address] [place] [phone] Apr, [facility] [address] [id number] [address] [place] [phone] Jan, [facility] [address] [id number] [address] [place] [phone] November, IMMUNIZATIONS No Known Immunizations SOCIAL HISTORY Never Assessed [place]ASON FOR VISIT [facility] [place] VITAL SIGNS MEDICATIONS No [...]
--- OUTSIDE RECORDS SUMMARY | 2020-01-31 09:49 | XMS REPORT ---
Author Author Ivet Knott Doctor Organization [facility] Address Unknown Phone Unavailable Care Team Providers Care Hvac Service Technician Name Role Phone Migration, Doctor Unavailable Unavailable PROBLEMS Type Condition ICD9-CM Code [id number] Code Onset Dates Condition S tatus SNOMED Code Problem Depression F32.9 Active 96332658 Problem Hypothyroidism E03.9 Active 76294 008 Problem GERD (gastroesophageal reflux disease) K21.9 Active 849832760 Problem Schizo affective schizophrenia F25.0 Active 461902374 Problem Osteoarthritis M19.90 Active 97421 5006 Problem Low back pain, unspecified b ack pain laterality, unspecified chronicity, with sciatica presence unspecified M54.5 Active 022514897 Problem Iron deficiency anemia, unspecified iron deficiency an emia type D50.9 Active 49896290 Problem Essential hypertension I10 Active 43814215 Problem Secondary hyperparathyroidism, not elsewhere classified E21.1 Active 73185983 Problem Anxiety F41.9 Active 08484951 Problem Bilateral carotid artery disease I77.9 Active 468662024 Problem Stage 3 chronic kidney disease N18.3 Active 439357487 Problem Fibromyalgia M79.7 Active 7244131 05 Problem Vitamin D deficiency E55.9 Active 31203883 ALLERGIES No Information ENCOUNTERS Encounter Location Date Diagnosis [facility] [address] [place] [address] Dec, [facility] [address] [id number] [address] [place] [address] Oct, Osteoarthritis M19.90 [facility] [address] [id number] [address] [place] [address] Oct, Sore throat J02.9 and Acute nasopharyngitis J00 [facility] [address] [id number] [address] [place] [address] Sep, Osteoarthritis M19.90 [facility] [id number] [place] [address] 14 Sep, 2018 Acute non-recurrent maxillar y sinusitis J01.00 [facility] [address] [address] 18 Aug, 2018 Acute non-recurrent pansinus itis J01.40 [facility] [address] [address] Jul, Osteoarthritis M19.90 [facility] [address] [address] Jul, [place] [address] [address] Apr, Osteoarthritis M19.90 [place] [address] [address] Apr, Fibromyalgia M79.7 ; Essenti al hypertension I10 ; Encounter for immunization Z23 ; Stage 3 chronic kidney disease N18.3 and Depression F32.9 [facility] [address] [address] Dec, Fibromyalgia M79.7 ; Osteoar thritis M19.90 and Encounter for medication management Z79.899 [facility] [address] [address] November, Nausea and vomiting, intract ability of vomiting not specified, unspecified vomiting type R11.2 and Dizziness R42 [facility] [id number] [place] [address] November, Fibromyalgia M79.7 [place] [address] [address] November, Medicare annual wellness vis it, initial Z00.00 ; Anxiety F41.9 ; Depression F32.9 ; Stage 3 chronic kidney disease N18.3 ; Fibromyalgia M79.7 ; Essential hypertension I10 ; Secondary hyperparathyroidism, not elsewhere classified E21.1 ; Osteoarthritis M19.90 ; Hypothyroidism E03.9 and Encounter for immunization Z23 [facility] [id number] [place] [address] Oct, [facility] [address] [address] Oct, Sebaceous cyst L72.3 [facility] [address] [address] Sep, Low back pain, unspecified b ack pain laterality, unspecified chronicity, with sciatica presence unspecified M54.5 and Secondary hyperparathyroidism, not elsewhere classified E21.1 [place] [address] [address] Sep, Fibromyalgia M79.7 [place] [address] [address] Sep, Fibromyalgia M79.7 ; Plantar fasciitis, bilateral M72.2 ; Essential hypertension I10 ; Depression F32.9 and Epidermoid cyst L72.0 [place] [address] [address] Jul, [place] [address] [address] Jul, Fibromyalgia M79.7 ; Iron de ficiency anemia, unspecified iron deficiency anemia type D50.9 and Acute nasopharyngitis J00 [facility] [address] [address] Jun, Sore throat J02.9 and Acute serous otitis media of left ear, recurrence not specified H65.02 [facility] [address] [address] Jun, Hypothyroidism E03.9 [facility] [id number] [place] [address] Jun, [place] [address] [address] Jun, Hypothyroidism E03.9 ; Essen tial hypertension I10 and Osteoarthritis M19.90 [facility] [address] [address] May, [facility] [address] [place] [address] May, [facility] [address] [address] Feb, [facility] [address] [address] Feb, Leonela-menopausal N95.1 and To bacco use Z72.0 [place] [address] [address] Jan, [place] [address] [address] Jan, Osteoarthritis M19.90 ; Bila teral carotid artery disease I77.9 ; Raynauds syndrome I73.00 ; Essential hypertension I10 ; Allergic rhinitis J30.9 ; Stage 3 chronic kidney disease N18.3 ; Fibromyalgia M79.7 ; Hypothyroidism E03.9 ; GERD (gastroesophageal reflux disease) K21.9 and Vitamin D deficiency E55.9 [facility] [address] [place] [address] Dec, Raynauds syndrome I73.00 ; P lantar fascial fibromatosis M72.2 ; Osteoarthritis M19.90 and Fibromyalgia M79.7 [facility] [address] [place] [address] Dec, [place] [address] [address] Dec, [facility] [id number] [place] [address] Oct, Function kidney decreased N2 8.9 [facility] [id number] [place] [id number] Oct, Dental examination Z01.20 [facility] [address] [id number] [address] [place] [address] 18 Oct, 2016 Essential hypertension I10 a nd Function kidney decreased N28.9 [facility] [address] [id number] [address] [place] [address] [id number] 04 Oct, 2016 Dental examination Z01.20 [facility] [address] [id number] [address] [place] [address] 03 Oct, 2016 [facility] [address] [id number] [address] [place] [address] 24 Sep, 2016 Other specified disorders in volving the immune mechanism D89.89 and Schizo affective schizophrenia F25.0 [facility] [address] [id number] [address] [place] [address] Sep, Schizo affective schizophren ia F25.0 [facility] [address] [id number] [address] [place] [address] 16 Sep, 2016 Eustachian tube dysfunction, bilateral H69.83 [facility] [address] [id number] [address] [place] [address] 15 Sep, 2016 [facility] [address] [id number] [address] [place] [address] 14 Sep, 2016 [facility] [address] [id number] [address] [place] [address] 14 Sep, 2016 [facility] [address] [id number] [address] [place] [address] 13 Sep, 2016 Eustachian tube dysfunction, bilateral H69.83 [facility] [address] [facility] [id number] [address] [place] [address] 09 Sep, 2016 Allergic rhinitis J30.9 ; Es sential hypertension I10 ; Hypothyroidism E03.9 and Schizo affective schizophrenia F25.0 [facility] [address] [id number] [address] [place] [address] 23 Homar, 2017 Eustachian tube dysfunction, bilateral H69.83 and Visit for TB skin test Z11.1 [facility] [address] [facility] [id number] [address] [place] [address] Jul, Subacute pansinusitis J01.40 [facility] [address] [id number] [address] [place] [address] Jun, Schizo affective schizophren ia F25.0 ; Depression F32.9 ; Allergic rhinitis J30.9 ; Raynauds syndrome I73.00 ; Essential hypertension I10 ; Slow transit constipation K59.01 ; GERD (gastroesophageal reflux disease) K21.9 ; Hypothyroidism E03.9 ; Nicotine addiction F17.200 ; Other viral agents as the cause of diseases classified elsewhere B97.89 ; Acute upper respiratory infection, unspecified J06.9 and Osteoarthritis M19.90 [facility] [address] [address] Jun, Allergic rhinitis J30.9 and GERD (gastroesophageal reflux disease) K21.9 [facility] [address] [place] [address] May, [facility] [address] [address] Mar, Schizo affective schizophren ia F25.0 [facility] [id number] [place] [address] Mar, Schizo affective schizophren ia F25.0 [facility] [address] [place] [address] 15 Mar, 2016 Schizo affective schizophren ia F25.0 [place] [address] [place] [address] [id number] [address] [place] [address] 06 Mar, 2016 Acute non-recurrent maxillar y sinusitis J01.00 [facility] [address] [id number] [address] [place] [address] Feb, Schizo affective schizophren ia F25.0 [facility] [address] [address] [address] Feb, Contact dermatitis and eczem a L25.9 [place] [address] [address] Jan, [place] [address] [address] Jan, Schizo affective schizophren ia F25.0 ; Slow transit constipation K59.01 ; Essential hypertension I10 ; GERD (gastroesophageal reflux disease) K21.9 ; Hypothyroidism E03.9 ; Osteoarthritis M19.90 ; Low back pain, unspecified back pain laterality, unspecified chronicity, with sciatica presence unspecified M54.5 and Bilateral carotid artery disease I77.9 [place] [address] [address] Oct, [place] [address] [address] Sep, Hypothyroid E03.9 [place] [address] [address] Sep, Schizo affective schizophren ia F25.0 ; Depression F32.9 ; Anxiety F41.9 ; Allergic rhinitis J30.9 ; Raynauds syndrome I73.00 ; Insomnia G47.00 ; Essential hypertension I10 ; GERD (gastroesophageal reflux disease) K21.9 ; Hypothyroidism E03.9 and Vitamin D deficiency E55.9 [place] [address] [address] Sep, [place] [address] [address] Sep, [place] [address] [address] Aug, Allergic rhinitis J30.9 ; De pression F32.9 ; Anxiety F41.9 ; Raynauds syndrome I73.00 ; Insomnia G47.00 and GERD (gastroesophageal reflux disease) K21.9 [place] [id number] [place] [address] Aug, MONICA (secretory otitis media) H65.90 and Raynauds syndrome I73.00 [facility] [address] [place] [address] Jul, Acute otitis externa of both ears, unspecified type H60.503 [facility] [address] [address] Jun, [place] [address] [address] Jun, Essential hypertension I10 ; Allergic rhinitis J30.9 ; Hypothyroidism E03.9 and Osteoarthritis M19.90 [place] [address] [address] Jun, Routine adult health mainten ance Z00.00 ; Hypothyroidism E03.9 ; Essential hypertension I10 ; Insomnia G47.00 ; Nicotine addiction F17.200 ; Raynauds syndrome I73.00 ; GERD (gastroesophageal reflux disease) K21.9 ; Allergic rhinitis J30.9 ; Anxiety F41.9 ; Depression F32.9 and Schizo affective schizophrenia F25.0 [place] [id number] [place] [address] May, Upper respiratory tract infe ction, unspecified type J06.9 [facility] [address] [place] [address] Mar, [facility] [address] [id number] [id number] Mar, [place] [address] [id number] [place] [address] Mar, [place] [address] [address] [id number] [place] [address] Mar, [place] [id number] [id number] [place] [address] 25 Aug, 2015 Jaw pain 784.92 and Environm ental and seasonal allergies 477.8 [facility] [address] [id number] [address] [place] [address], [place] [address] Feb, [facility] [address] [id number] [address] [place] [address] Oct, [facility] [address] [id number] [address] [place] [address], [place] [address] Oct, [facility] [address] [id number] [address] [place] [address] Oct, [facility] [address] [id number] [address] [place] [address], [place] [address] Oct, [facility] [address] [id number] [address] [place] [address] Sep, [facility] [address] [id number] [address] [place] [address] Sep, [facility] [address] [id number] [address] [place] [address] Jul, [facility] [address] [id number] [address] [place] [address] Jul, [facility] [address] [id number] [address] [place] [address] Jul, [facility] [address] [id number] [address] [place] [address] Jul, [facility] [address] [id number] [address] [place] [address] Jul, [facility] [address] [id number] [address] [place] [address] Jul, [facility] [address] [id number] [address] [place] [address] Jul, [facility] [address] [id number] [address] [place] [address] Jun, [facility] [address] [id number] [address] [place] [address], [place] [address] 31 Jun, 2014 [facility] [address] [id number] [address] [place] [address], [place] [address] 22 Jun, 2014 [facility] [address] [id number] [address] [place] [address], [place] [address] 18 Jun, 2014 [facility] [address] [id number] [address] [place] [address], [place] [address] 17 Jun, 2014 [facility] [address] [id number] [address] [place] [address], [place] [address] 17 Jun, 2014 [facility] [address] [id number] [address] [place] [address], [place] [address] 16 Jun, 2014 [facility] [address] [id number] [address] [place] [address], [place] [address] 16 Jun, 2014 [facility] [address] [id number] [address] [place] [address], [place] [address] 30 Apr, 2014 [facility] [address] [id number] [address] [place] [address], [place] [address] 30 Apr, 2014 [facility] [address] [id number] [address] [place] [address], [place] [address] 17 Mar, 2014 [facility] [address] [id number] [address] [place] [address], [place] [address] 17 Mar, 2014 [facility] [address] [id number] [address] [place] [address], [place] [address] 03 Mar, 2014 [facility] [address] [id number] [address] [place] [address], [place] [address] 03 Mar, 2014 [facility] [address] [id number] [address] [place] [address], [place] [address] 16 Jan, 2014 [facility] [address] [id number] [address] [place] [address], [place] [address] 16 Jan, 2014 [facility] [address] [id number] [address] [place] [address], [place] [address] Oct, [facility] [address] [id number] [address] [place] [address], [place] [address] Oct, [facility] [address] [id number] [address] [place] [address], [place] [address] Sep, [facility] [address] [id number] [address] [place] [address], [place] [address] Sep, [facility] [address] [id number] [address] [place] [address], [place] [address] Sep, [facility] [address] [id number] [address] [place] [address], [place] [address] Sep, [facility] [address] [id number] [address] [place] [address], [place] [address] Sep, [facility] [address] [id number] [address] [place] [address], [place] [address] Sep, [facility] [address] [id number] [address] [place] [address], [place] [address] Aug, [facility] [address] [id number] [address] [place] [address], [place] [address] Aug, [facility] [address] [id number] [address] [place] [address], [place] [address] Jul, [facility] [address] [id number] [address] [place] [address], [place] [address] Jul, [facility] [address] [id number] [address] [place] [address], [place] [address] Jul, [facility] [address] [id number] [address] [place] [address], [place] [address] Jul, [facility] [address] [id number] [address] [place] [address], [place] [address] Jun, [facility] [address] [id number] [address] [place] [address], [place] [address] Jun, [facility] [address] [id number] [address] [place] [address], [place] [address] May, [facility] [address] [id number] [address] [place] [address], [place] [address] May, [facility] [address] [id number] [address] [place] [address], [place] [address] Apr, [facility] [address] [id number] [address] [place] [address], [place] [address] Apr, [facility] [address] [id number] [address] [place] [address], [place] [address] Apr, [facility] [address] [id number] [address] [place] [address], [place] [address] Apr, [facility] [address] [id number] [address] [place] [address], [place] [address] Apr, [facility] [address] [id number] [address] [place] [address], [place] [address] Apr, [facility] [address] [id number] [address] [place] [address], [place] [address] 24 Mar, 2013 [facility] [address] [id number] [address] [place] [address], [place] [address] Mar, [facility] [address] [id number] [address] [place] [address], [place] [address] Mar, [facility] [address] [id number] [address] [place] [address], [place] [address] Mar, [facility] [address] [id number] [address] [place] [address], [place] [address] Mar, [facility] [address] [id number] [address] [place] [address], [place] [address] Feb, [facility] [address] [id number] [address] [place] [address], [place] [address] Feb, [facility] [address] [id number] [address] [place] [address], [place] [address] Feb, [facility] [address] [id number] [address] [place] [address], [place] [address] 08 Feb, 2013 [facility] [address] [id number] [address] [place] [address], [place] [address] 18 Jan, 2013 [facility] [address] [id number] [address] [place] [address], [place] [address] 17 Jan, 2013 [facility] [address] [id number] [address] [place] [address], [place] [address] 16 Jan, 2013 [facility] [address] [id number] [address] [place] [address], [place] [id number] Jan, [facility] [address] [id number] [address] [place] [address], [place] [id number] Jan, [facility] [address] [id number] [address] [place] [address], [place] [id number] Jan, [facility] [address] [id number] [address] [place] [address], [place] [id number] 27 Dec, 2012 [facility] [address] [id number] [address] [place] [address], [place] [id number] 25 Dec, 2012 [facility] [address] [id number] [address] [place] [address], [place] [id number] Dec, [facility] [address] [id number] [address] [place] [address], [place] [id number] 14 Dec, 2012 [facility] [address] [id number] [address] [place] [address], [place] [id number] 13 Dec, 2012 [facility] [address] [id number] [address] [place] [address], [place] [id number] 12 Dec, 2012 [facility] [address] [id number] [address] [place] [address], [place] [id number] 11 Dec, 2012 [facility] [address] [id number] [address] [place] [address], [place] [id number] 07 Dec, 2012 [facility] [address] [id number] [address] [place] [address], [place] [id number] Dec, [facility] [address] [id number] [address] [place] [address], [place] [id number] Dec, [facility] [address] [id number] [address] [place] [address], [place] [id number] November, [facility] [address] [id number] [address] [place] [address], [place] [id number] November, [facility] [address] [id number] [address] [place] [address], [place] [id number] November, [facility] [address] [id number] [address] [place] [address], [place] [id number] November, [facility] [address] [id number] [address] [place] [address], [place] [id number] November, [facility] [address] [id number] [address] [place] [address], [place] [id number] Oct, [facility] [address] [id number] [address] [place] [address], [place] [id number] Oct, [facility] [address] [id number] [address] [place] [address], [place] [id number] Oct, [facility] [address] [id number] [address] [place] [address], [place] [id number] Oct, [facility] [address] [id number] [address] [place] [address], [place] [id number] Oct, [facility] [address] [id number] [address] [place] [address], [place] [address] Sep, [facility] [address] [id number] [address] [place] [address], [place] [id number] Sep, [facility] [address] [id number] [address] [place] [address], [place] [id number] Sep, [facility] [address] [id number] [address] [place] [address], [place] [id number] Sep, [facility] [address] [id number] [address] [place] [address], [place] [id number] 26 Aug, 2012 [facility] [address] [id number] [address] [place] [address], [place] [id number] 18 Aug, 2012 [facility] [address] [id number] [address] [place] [address], [place] [id number] 18 Aug, 2012 [facility] [address] [id number] [address] [place] [address], [place] [id number] 15 Aug, 2012 [facility] [address] [id number] [address] [place] [address], [place] [id number] 17 Jun, 2012 [facility] [address] [id number] [address] [place] [address], [place] [id number] Jun, [facility] [address] [id number] [address] [place] [address], [place] [id number] Jun, [facility] [address] [id number] [address] [place] [address], [place] [id number] Jun, [facility] [address] [id number] [address] [place] [address], [place] [id number] Jun, [facility] [address] [id number] [address] [place] [address], [place] [id number] Jun, [facility] [address] [id number] [address] [place] [address], [place] [id number] Jun, [facility] [address] [id number] [address] [place] [address], [place] [id number] Jun, [facility] [address] [id number] [address] [place] [address], [place] [id number] Jun, [facility] [address] [id number] [address] [place] [address], [place] [id number] Jun, [facility] [address] [id number] [address] [place] [address], [place] [id number] May, [facility] [address] [id number] [address] [place] [address], [place] [id number] May, [facility] [address] [id number] [address] [place] [address], [place] [id number] 27 May, 2012 [facility] [address] [id number] [address] [place] [address], [place] [address] May, [facility] [address] [id number] [address] [place] [address], [place] [id number] May, [facility] [address] [id number] [address] [place] [address], [place] [id number] 16 May, 2012 [facility] [address] [id number] [address] [place] [address], [place] [id number] 16 May, 2012 [facility] [address] [id number] [address] [place] [address], [place] [id number] 14 May, 2012 [facility] [address] [id number] [address] [place] [address], [place] [address] May, [facility] [address] [id number] [address] [place] [address], [place] [id number] 30 Apr, 2012 [facility] [address] [id number] [address] [place] [address], [place] [id number] 30 Apr, 2012 [facility] [address] [id number] [address] [place] [address], [place] [id number] 17 Apr, 2012 [facility] [address] [id number] [address] [place] [address], [place] [id number] 17 Apr, 2012 [facility] [address] [id number] [address] [place] [id number] 09 Apr, 2012 [facility] [address] [id number] [address] [place] [address], [place] [id number] 18 Mar, 2012 [facility] [address] [id number] [address] [place] [address], [place] [id number] 17 Sep2011 [facility] [address] [id number] [address] [place] [address], [place] [id number] 07 Mar, 2012 [facility] [address] [id number] [address] [place] [address], [place] [id number] Feb, [facility] [address] [id number] [address] [place] [address], [place] [id number] Feb, [facility] [address] [id number] [address] [place] [address], [place] [address] Feb, [facility] [address] [id number] [address] [place] [address], [place] [id number] Feb, [facility] [address] [id number] [address] [place] [address], [place] [address] Jan, [facility] [address] [id number] [address] [place] [address], [place] [id number] Jan, [facility] [address] [id number] [address] [place] [address], [place] [id number] Jan, [facility] [address] [id number] [address] [place] [address], [place] [address] Jan, [facility] [address] [id number] [address] [place] [address], [place] [address] Jan, [facility] [address] [id number] [address] [place] [address], [place] [address] Jan, [facility] [address] [id number] [address] [place] [address], [place] [id number] Dec, [facility] [address] [id number] [address] [place] [address], [place] [address] Dec, [facility] [address] [id number] [address] [place] [address], [place] [address] Dec, [facility] [address] [id number] [address] [place] [address], [place] [address] November, [facility] [address] [id number] [address] [place] [address], [place] [address] November, [facility] [address] [id number] [address] [place] [address], [place] [address] November, [facility] [address] [id number] [address] [place] [address], [place] [address] November, [facility] [address] [id number] [address] [place] [address], [place] [address] Oct, [facility] [address] [id number] [address] [place] [address], [place] [address] Oct, [facility] [address] [id number] [address] [place] [address], [place] [id number] Oct, [facility] [address] [id number] [address] [place] [address], [place] [id number] Sep, [facility] [address] [id number] [address] [place] [address], [place] [id number] Sep, [facility] [address] [id number] [address] [place] [address], [place] [id number] Aug, [facility] [address] [id number] [address] [place] [address], [place] [address] Aug, [facility] [address] [id number] [address] [place] [address], [place] [address] Aug, [facility] [address] [id number] [address] [place] [address], [place] [address] Aug, [facility] [address] [id number] [address] [place] [address], [place] [address] Jul, [facility] [address] [id number] [address] [place] [address], [place] [address] Jul, [facility] [address] [id number] [address] [place] [address], [place] [address] Jul, [facility] [address] [id number] [address] [place] [address], [place] [address] Jul, [facility] [address] [id number] [address] [place] [address], [place] [id number] Jul, [facility] [address] [id number] [address] [place] [address], [place] [address] 05 Jul, 2011 [facility] [address] [id number] [address] [place] [address], [place] [id number] 05 Jul, 2011 [facility] [address] [id number] [address] [place] [address], [place] [id number] Jul, [facility] [address] [id number] [address] [place] [address], [place] [id number] 30 Jun, 2011 [facility] [address] [id number] [address] [place] [address], [place] [address] 26 Jun, 2011 [facility] [address] [id number] [address] [place] [address], [place] [address] Jun, [facility] [address] [id number] [address] [place] [address], [place] [address] 08 Jun, 2011 [facility] [address] [id number] [address] [place] [address], [place] [address] Jun, [facility] [address] [id number] [address] [place] [address], [place] [address] May, [facility] [address] [id number] [address] [place] [address], [place] [address] May, [facility] [address] [id number] [address] [place] [address], [place] [id number] 17 May, 2011 [facility] [address] [id number] [address] [place] [address], [place] [address] 15 May, 2011 [facility] [address] [id number] [address] [place] [address], [place] [address] May, [facility] [address] [id number] [address] [place] [address], [place] [id number] 08 May, 2011 [facility] [address] [id number] [address] [place] [address], [place] [id number] 19 Apr, 2011 [facility] [address] [id number] [address] [place] [address], [place] [id number] 13 Apr, 2011 [facility] [address] [id number] [address] [place] [id number] Apr, [facility] [address] [id number] [address] [place] [id number] Feb, [facility] [address] [id number] [address] [place] [id number] Feb, [facility] [address] [id number] [address] [place] [id number] Oct, [facility] [address] [id number] [address] [place] [id number] Jul, [facility] [address] [id number] [address] [place] [id number] Jul, [facility] [address] [id number] [address] [place] [id number] Jun, [facility] [address] [id number] [address] [place] [id number] May, [facility] [address] [id number] [address] [place] [id number] May, [facility] [address] [id number] [address] [place] [id number] May, [facility] [address] [id number] [address] [place] [id number] Apr, [facility] [address] [id number] [address] [place] [id number] Jan, [facility] [address] [id number] [address] [place] [id number] November, IMMUNIZATIONS No Known Immunizations SOCIAL HISTORY Never Assessed REASON FOR VISIT EMR[place] [place]AN OF CARE VITAL SIGNS MEDICATIONS Unknown [...]
--- OUTSIDE RECORDS SUMMARY | 2020-01-31 09:50 | XMS REPORT ---
Author Author Ivet Knott Doctor Organization [facility] Address Unknown Phone Unavailable Care Team Providers Care Paraprofessional Interpreter Name Role Phone Migration, Doctor Unavailable Unavailable PROBLEMS Type Condition ICD9-CM Code [id number] Code Onset Dates Condition S tatus SNOMED Code Problem Depression F32.9 Active 82826507 Problem Hypothyroidism E03.9 Active 06470 008 Problem GERD (gastroesophageal reflux disease) K21.9 Active 842523030 Problem Schizo affective schizophrenia F25.0 Active 614103592 Problem Osteoarthritis M19.90 Active 44097 5006 Problem Low back pain, unspecified b ack pain laterality, unspecified chronicity, with sciatica presence unspecified M54.5 Active 319149125 Problem Iron deficiency anemia, unspecified iron deficiency an emia type D50.9 Active 19488299 Problem Essential hypertension I10 Active 82164922 Problem Secondary hyperparathyroidism, not elsewhere classified E21.1 Active 91296000 Problem Anxiety F41.9 Active 52456576 Problem Bilateral carotid artery disease I77.9 Active 273950507 Problem Stage 3 chronic kidney disease N18.3 Active 864545147 Problem Fibromyalgia M79.7 Active 7038495 05 Problem Vitamin D deficiency E55.9 Active 86826852 ALLERGIES No Information ENCOUNTERS Encounter Location Date Diagnosis [facility] [address] [place] [address] Oct, Sore throat J02.9 and Acute nasopharyngitis J00 [facility] [address] [place] [id number] [place] [address] Sep, Osteoarthritis M19.90 [facility] [address] [id number] [address] [place] [address] Sep, Acute non-recurrent maxillar y sinusitis J01.00 [facility] [address] [id number] [address] [place] [address] 18 Aug, 2018 Acute non-recurrent pansinus itis J01.40 [facility] [address] [address] Jul, Osteoarthritis M19.90 [facility] [address] [address] Jul, [place] [address] [address] Apr, Osteoarthritis M19.90 [place] [address] [address] Apr, Fibromyalgia M79.7 ; Essenti al hypertension I10 ; Encounter for immunization Z23 ; Stage 3 chronic kidney disease N18.3 and Depression F32.9 [place] [address] [address] Dec, Fibromyalgia M79.7 ; Osteoar thritis M19.90 and Encounter for medication management Z79.899 [facility] [address] [address] November, Nausea and vomiting, intract ability of vomiting not specified, unspecified vomiting type R11.2 and Dizziness R42 [place] [address] [address] November, Fibromyalgia M79.7 [place] [address] [address] November, Medicare annual wellness vis it, initial Z00.00 ; Anxiety F41.9 ; Depression F32.9 ; Stage 3 chronic kidney disease N18.3 ; Fibromyalgia M79.7 ; Essential hypertension I10 ; Secondary hyperparathyroidism, not elsewhere classified E21.1 ; Osteoarthritis M19.90 ; Hypothyroidism E03.9 and Encounter for immunization Z23 [facility] [address] [address] Oct, [facility] [address] [address] Oct, Sebaceous cyst L72.3 [facility] [address] [id number] [address] [place] [address] 27 Sep, 2017 Low back pain, unspecified b ack pain laterality, unspecified chronicity, with sciatica presence unspecified M54.5 and Secondary hyperparathyroidism, not elsewhere classified E21.1 [facility] [address] [address] 13 Sep, 2017 Fibromyalgia M79.7 [facility] [address] [address] 05 Sep, 2017 Fibromyalgia M79.7 ; Plantar fasciitis, bilateral M72.2 ; Essential hypertension I10 ; Depression F32.9 and Epidermoid cyst L72.0 [place] [address] [address] Jul, [place] [address] [address] Jul, Fibromyalgia M79.7 ; Iron de ficiency anemia, unspecified iron deficiency anemia type D50.9 and Acute nasopharyngitis J00 [facility] [address] [address] Jun, Sore throat J02.9 and Acute serous otitis media of left ear, recurrence not specified H65.02 [facility] [address] [address] Jun, Hypothyroidism E03.9 [facility] [address] [address] Jun, [place] [address] [address] Jun, Hypothyroidism E03.9 ; Essen tial hypertension I10 and Osteoarthritis M19.90 [facility] [address] [address] May, [facility] [address] [address] May, [place] [address] [address] Feb, [place] [address] [address] Feb, Leonela-menopausal N95.1 and To bacco use Z72.[address] [address] Jan, [place] [address] [address] Jan, Osteoarthritis M19.90 ; Bila teral carotid artery disease I77.9 ; Raynauds syndrome I73.00 ; Essential hypertension I10 ; Allergic rhinitis J30.9 ; Stage 3 chronic kidney disease N18.3 ; Fibromyalgia M79.7 ; Hypothyroidism E03.9 ; GERD (gastroesophageal reflux disease) K21.9 and Vitamin D deficiency E55.9 [place] [address] [address] Dec, Raynauds syndrome I73.00 ; P lantar fascial fibromatosis M72.2 ; Osteoarthritis M19.90 and Fibromyalgia M79.7 [place] [address] [place] [id number] [place] [address] Dec, [place] [address] [address] Dec, [place] [address] [address] Oct, Function kidney decreased N2 8.9 [facility] [address] [place] [id number] Oct, Dental examination Z01.20 [place] [address] [place] [id number] [place] [address] Oct, Essential hypertension I10 a nd Function kidney decreased N28.9 [facility] [address] [place] [address] [id number] [address] [place] [id number] 04 Oct, 2016 Dental examination Z01.20 [facility] [address] [id number] [address] [place] [address] Oct, [facility] [address] [id number] [address] [place] [address] 24 Sep, 2016 Other specified disorders in volving the immune mechanism D89.89 and Schizo affective schizophrenia F25.0 [facility] [address] [address] 21 Sep, 2016 Schizo affective schizophren ia F25.0 [facility] [address] [address] 16 Sep, 2016 Eustachian tube dysfunction, bilateral H69.83 [place] [address] [address] 15 Sep, 2016 [facility] [address] [address] 14 Sep, 2016 [facility] [address] [address] 14 Sep, 2016 [facility] [address] [address] 13 Sep, 2016 Eustachian tube dysfunction, bilateral H69.83 [facility] [address] [address] 09 Sep, 2016 Allergic rhinitis J30.9 ; Es sential hypertension I10 ; Hypothyroidism E03.9 and Schizo affective schizophrenia F25.0 [facility] [address] [id number] [address] [place] [address] Jul, Eustachian tube dysfunction, bilateral H69.83 and Visit for TB skin test Z11.1 [facility] [address] [place] [address] Jul, Subacute pansinusitis J01.40 [facility] [address] [address] Jun, Schizo affective schizophren ia F25.0 ; Depression F32.9 ; Allergic rhinitis J30.9 ; Raynauds syndrome I73.00 ; Essential hypertension I10 ; Slow transit constipation K59.01 ; GERD (gastroesophageal reflux disease) K21.9 ; Hypothyroidism E03.9 ; Nicotine addiction F17.200 ; Other viral agents as the cause of diseases classified elsewhere B97.89 ; Acute upper respiratory infection, unspecified J06.9 and Osteoarthritis M19.90 [place] [address] [address] Jun, Allergic rhinitis J30.9 and GERD (gastroesophageal reflux disease) K21.9 [place] [address] [address] May, [place] [address] [address] Mar, Schizo affective schizophren ia F25.0 [place] [address] [address] Mar, Schizo affective schizophren ia F25.0 [place] [address] [address] Mar, Schizo affective schizophren ia F25.0 [place] [address] [address] Mar, Acute non-recurrent maxillar y sinusitis J01.00 [place] [address] [address] Feb, Schizo affective schizophren ia F25.0 [place] [address] [address] Feb, Contact dermatitis and eczem a L25.9 [place] [address] [address] Jan, [place] [address] [address] Jan, Schizo affective schizophren ia F25.0 ; Slow transit constipation K59.01 ; Essential hypertension I10 ; GERD (gastroesophageal reflux disease) K21.9 ; Hypothyroidism E03.9 ; Osteoarthritis M19.90 ; Low back pain, unspecified back pain laterality, unspecified chronicity, with sciatica presence unspecified M54.5 and Bilateral carotid artery disease I77.9 [place] [address] [address] Oct, [place] [address] [address] Sep, Hypothyroid E03.9 [place] [address] [address] Sep, Schizo affective schizophren ia F25.0 ; Depression F32.9 ; Anxiety F41.9 ; Allergic rhinitis J30.9 ; Raynauds syndrome I73.00 ; Insomnia G47.00 ; Essential hypertension I10 ; GERD (gastroesophageal reflux disease) K21.9 ; Hypothyroidism E03.9 and Vitamin D deficiency E55.9 [place] [address] [address] Sep, [place] [address] [address] Sep, [place] [address] [address] Aug, Allergic rhinitis J30.9 ; De pression F32.9 ; Anxiety F41.9 ; Raynauds syndrome I73.00 ; Insomnia G47.00 and GERD (gastroesophageal reflux disease) K21.9 [place] [address] [address] Aug, MONICA (secretory otitis media) H65.90 and Raynauds syndrome I73.00 [facility] [address] [address] Jul, Acute otitis externa of both ears, unspecified type H60.503 [place] [address] [place] [id number] [place] [address] Jun, [place] [address] [place] [id number] [place] [address] Jun, Essential hypertension I10 ; Allergic rhinitis J30.9 ; Hypothyroidism E03.9 and Osteoarthritis M19.90 [place] [address] [place] [id number] [place] [address] Jun, Routine adult health mainten ance Z00.00 ; Hypothyroidism E03.9 ; Essential hypertension I10 ; Insomnia G47.00 ; Nicotine addiction F17.200 ; Raynauds syndrome I73.00 ; GERD (gastroesophageal reflux disease) K21.9 ; Allergic rhinitis J30.9 ; Anxiety F41.9 ; Depression F32.9 and Schizo affective schizophrenia F25.0 [place] [address] [place] [id number] [place] [address] May, Upper respiratory tract infe ction, unspecified type J06.9 [place] [address] [address] Mar, [facility] [id number] [place], [facility] [id number] Mar, [place] [address] [place] [id number] [place] [address] Mar, [place] [address] [place] [id number] [place] [address] Mar, [place] [address] [place] [id number] [place] [address] Feb, Jaw pain 784.92 and Environm ental and seasonal allergies 477.8 [place] [address] [place] [id number] [place] [address] Feb, [place] [address] [address] Oct, [facility] [address] [id number] [address] [place] [address], [place] [address] Oct, [facility] [address] [id number] [address] [place] [address], [place] [address] Oct, [facility] [address] [id number] [address] [place] [address], [place] [address] Oct, [facility] [address] [id number] [address] [place] [address], [place] [address] Sep, [facility] [address] [id number] [address] [place] [address], [place] [address] Sep, [facility] [address] [id number] [address] [place] [address], [place] [address] Jul, [facility] [address] [id number] [address] [place] [address], [place] [address] Jul, [facility] [address] [id number] [address] [place] [address], [place] [address] Jul, [facility] [address] [id number] [address] [place] [address], [place] [address] Jul, [facility] [address] [id number] [address] [place] [address], [place] [address] Jul, [facility] [address] [id number] [address] [place] [address], [place] [address] Jul, [facility] [address] [id number] [address] [place] [address], [place] [address] Jul, [facility] [address] [id number] [address] [place] [address], [place] [address] Jun, [facility] [address] [id number] [address] [place] [address], [place] [address] Jun, [facility] [address] [id number] [address] [place] [address], [place] [address] Jun, [facility] [address] [id number] [address] [place] [address], [place] [address] 18 Jun, 2014 [facility] [address] [id number] [address] [place] [address], [place] [address] Jun, [facility] [address] [id number] [address] [place] [address], [place] [address] Jun, [facility] [address] [id number] [address] [place] [address], [place] [address] Jun, [facility] [address] [id number] [address] [place] [address], [place] [address] Jun, [facility] [address] [id number] [address] [place] [address], [place] [address] Apr, [facility] [address] [id number] [address] [place] [address], [place] [address] Apr, [facility] [address] [id number] [address] [place] [address], [place] [address] Mar, [facility] [address] [id number] [address] [place] [address], [place] [address] Mar, [facility] [address] [id number] [address] [place] [address], [place] [address] Mar, [facility] [address] [id number] [address] [place] [address], [place] [address] Mar, [facility] [address] [id number] [address] [place] [address], [place] [address] Jan, [facility] [address] [id number] [address] [place] [address], [place] [address] Jan, [facility] [address] [id number] [address] [place] [address], [place] [address] Oct, [facility] [address] [id number] [address] [place] [address], [place] [address] Oct, [facility] [address] [id number] [address] [place] [address], [place] [address] Sep, [facility] [address] [id number] [address] [place] [address], [place] [address] Sep, [facility] [address] [id number] [address] [place] [address], [place] [address] Sep, [facility] [address] [id number] [address] [place] [address], [place] [address] Sep, [facility] [address] [id number] [address] [place] [address], [place] [address] Sep, [facility] [address] [id number] [address] [place] [address], [place] [address] Sep, [facility] [address] [id number] [address] [place] [address], [place] [address] Aug, [facility] [address] [id number] [address] [place] [address], [place] [address] Aug, [facility] [address] [id number] [address] [place] [address], [place] [address] Jul, [facility] [address] [id number] [address] [place] [address], [place] [address] Jul, [facility] [address] [id number] [address] [place] [address], [place] [address] Jul, [facility] [address] [id number] [address] [place] [address], [place] [address] Jul, [facility] [address] [id number] [address] [place] [address], [place] [address] Jun, [facility] [address] [id number] [address] [place] [address], [place] [address] Jun, [facility] [address] [id number] [address] [place] [address], [place] [address] May, [facility] [address] [id number] [address] [place] [address], [place] [address] May, [facility] [address] [id number] [address] [place] [address] [place] [address] Apr, [facility] [address] [id number] [address] [place] [address], [place] [address] Apr, [facility] [address] [id number] [address] [place] [address], [place] [address] Apr, [facility] [address] [id number] [address] [place] [address], [place] [address] Apr, [facility] [address] [id number] [address] [place] [address], [place] [address] Apr, [facility] [address] [id number] [address] [place] [address], [place] [address] Apr, [facility] [address] [id number] [address] [place] [address], [place] [address] 24 Mar, 2013 [facility] [address] [id number] [address] [place] [address], [place] [address] 12 Mar, 2013 [facility] [address] [id number] [address] [place] [address], [place] [address] 09 Mar, 2012 [facility] [address] [id number] [address] [place] [address], [place] [address] 05 Mar, 2012 [facility] [address] [id number] [address] [place] [address], [place] [address] 05 Mar, 2013 [facility] [address] [id number] [address] [place] [address], [place] [address] 30 Feb, 2013 [facility] [address] [id number] [address] [place] [address], [place] [address] Feb, [facility] [address] [id number] [address] [place] [address], [place] [address] Feb, [facility] [address] [id number] [address] [place] [address], [place] [address] Feb, [facility] [address] [id number] [address] [place] [address], [place] [address] Jan, [facility] [address] [id number] [facility] [place] [address] 17 Jan, 2013 [facility] [address] [id number] [address] [place] [address], [place] [address] 16 Jan, 2013 [facility] [address] [id number] [address] [place] [address], [place] [address] 11 Jan, 2013 [facility] [address] [id number] [address] [place] [address], [place] [address] 03 Jan, 2013 [facility] [address] [id number] [address] [place] [address], [place] [address] 02 Jan, 2013 [facility] [address] [id number] [address] [place] [address], [place] [address] 27 Dec, 2012 [facility] [address] [id number] [address] [place] [address], [place] [address] 25 Dec, 2012 [facility] [address] [id number] [address] [place] [address], [place] [address] 19 Dec, 2012 [facility] [address] [id number] [address] [place] [address], [place] [address] 14 Dec, 2012 [facility] [address] [id number] [address] [place] [address], [place] [address] 13 Dec, 2012 [facility] [address] [id number] [address] [place] [address], [place] [address] 12 Dec, 2012 [facility] [address] [id number] [address] [place] [address], [place] [address] 11 Dec, 2012 [facility] [address] [id number] [address] [place] [address], [place] [address] 07 Dec, 2012 [facility] [address] [id number] [address] [place] [address], [place] [address] 05 Dec, 2012 [facility] [address] [id number] [address] [place] [address], [place] [address] 03 Dec, 2012 [facility] [address] [id number] [address] [place] [address], [place] [address] November, [facility] [address] [id number] [address] [place] [address], [place] [address] November, [facility] [address] [id number] [address] [place] [address], [place] [address] November, [facility] [address] [id number] [address] [place] [address], [place] [address] November, [facility] [address] [id number] [address] [place] [address], [place] [address] November, [facility] [address] [id number] [address] [place] [address], [place] [address] Oct, [facility] [address] [id number] [address] [place] [address], [place] [address] Oct, [facility] [address] [id number] [address] [place] [address], [place] [address] Oct, [facility] [address] [id number] [address] [place] [address], [place] [address] Oct, [facility] [address] [id number] [address] [place] [address], [place] [address] Oct, [facility] [address] [id number] [address] [place] [address], [place] [address] Sep, [facility] [address] [id number] [address] [place] [address], [place] [address] Sep, [facility] [address] [id number] [address] [place] [address], [place] [address] Sep, [facility] [address] [id number] [address] [place] [address], [place] [address] Sep, [facility] [address] [id number] [address] [place] [address], [place] [address] Aug, [facility] [address] [id number] [address] [place] [address], [place] [address] Aug, [facility] [address] [id number] [address] [place] [address], [place] [address] 18 Aug, 2012 [facility] [address] [id number] [address] [place] [address], [place] [address] 15 Aug, 2012 [facility] [address] [id number] [address] [place] [address], [place] [address] 17 Jun, 2012 [facility] [address] [id number] [address] [place] [address], [place] [address] Jun, [facility] [address] [id number] [address] [place] [address], [place] [address] Jun, [facility] [address] [id number] [address] [place] [address], [place] [address] Jun, [facility] [address] [id number] [address] [place] [address], [place] [address] Jun, [facility] [address] [id number] [address] [place] [address], [place] [address] Jun, [facility] [address] [id number] [address] [place] [address], [place] [address] Jun, [facility] [address] [id number] [address] [place] [address], [place] [address] Jun, [facility] [address] [id number] [address] [place] [address], [place] [address] Jun, [facility] [address] [id number] [address] [place] [address], [place] [address] Jun, [facility] [address] [id number] [address] [place] [address], [place] [address] May, [facility] [address] [id number] [address] [place] [address], [place] [address] May, [facility] [address] [id number] [address] [place] [address], [place] [address] May, [facility] [address] [id number] [address] [place] [address], [place] [address] May, [facility] [address] [id number] [address] [place] [address], [place] [address] 26 May, 2012 [facility] [address] [id number] [address] [place] [address], [place] [address] 16 May, 2012 [facility] [address] [id number] [address] [place] [address], [place] [address] 16 May, 2012 [facility] [address] [id number] [address] [place] [address], [place] [address] 14 May, 2012 [facility] [address] [id number] [address] [place] [address], [place] [address] 14 May, 2012 [facility] [address] [id number] [address] [place] [address], [place] [address] 30 Apr, 2012 [facility] [address] [id number] [address] [place] [address], [place] [address] 30 Apr, 2012 [facility] [address] [id number] [address] [place] [address], [place] [address] 17 Apr, 2012 [facility] [address] [id number] [address] [place] [address], [place] [address] Apr, [facility] [address] [id number] [address] [place] [address], [place] [address] Apr, [facility] [address] [id number] [address] [place] [address], [place] [address] 18 Mar, 2012 [facility] [address] [id number] [address] [place] [address], [place] [address] 17 Mar, 2012 [facility] [address] [id number] [address] [place] [address], [place] [address] 07 Mar, 2012 [facility] [address] [id number] [address] [place] [address], [place] [address] 27 Feb, 2012 [facility] [address] [id number] [address] [place] [address], [place] [address] 16 Feb, 2012 [facility] [address] [id number] [address] [place] [address] [place] [address] Feb, [facility] [address] [id number] [address] [place] [address], [place] [address] Feb, [facility] [address] [id number] [address] [place] [address], [place] [address] Jan, [facility] [address] [id number] [address] [place] [address], [place] [address] Jan, [facility] [address] [id number] [address] [place] [address], [place] [address] Jan, [facility] [address] [id number] [address] [place] [address], [place] [address] Jan, [facility] [address] [id number] [address] [place] [address], [place] [address] Jan, [facility] [address] [id number] [address] [place] [address], [place] [address] Jan, [facility] [address] [id number] [address] [place] [address], [place] [address] Dec, [facility] [address] [id number] [address] [place] [address], [place] [address] Dec, [facility] [address] [id number] [address] [place] [address], [place] [address] Dec, [facility] [address] [id number] [address] [place] [address], [place] [address] November, [facility] [address] [id number] [address] [place] [address], [place] [address] November, [facility] [address] [id number] [address] [place] [address], [place] [address] November, [facility] [address] [id number] [address] [place] [address], [place] [address] November, [facility] [address] [id number] [address] [place] [address], [place] [address] Oct, [facility] [address] [id number] [address] [place] [address], [place] [address] Oct, [facility] [address] [id number] [address] [place] [address], [place] [address] Oct, [facility] [address] [id number] [address] [place] [address], [place] [address] Sep, [facility] [address] [id number] [address] [place] [address], [place] [address] Sep, [facility] [address] [id number] [address] [place] [address], [place] [address] Aug, [facility] [address] [id number] [address] [place] [address], [place] [address] Aug, [facility] [address] [id number] [address] [place] [address], [place] [address] Aug, [facility] [address] [id number] [address] [place] [address], [place] [address] Aug, [facility] [address] [id number] [address] [place] [address], [place] [address] Jul, [facility] [address] [id number] [address] [place] [address], [place] [address] Jul, [facility] [address] [id number] [address] [place] [address], [place] [address] Jul, [facility] [address] [id number] [address] [place] [address], [place] [address] Jul, [facility] [address] [id number] [address] [place] [address], [place] [address] Jul, [facility] [address] [id number] [address] [place] [address], [place] [address] Jul, [facility] [address] [id number] [address] [place] [address], [place] [address] Jul, [facility] [address] [id number] [address] [place] [address] Jul, [facility] [address] [id number] [address] [place] [address], [place] [address] 30 Jun, 2011 [facility] [address] [id number] [address] [place] [address], [place] [address] Jun, [facility] [address] [id number] [address] [place] [address], [place] [address] 15 Jun, 2011 [facility] [address] [id number] [address] [place] [id number] 08 Jun, 2011 [facility] [address] [id number] [address] [place] [address], [place] [address] Jun, [facility] [address] [id number] [address] [place] [address], [place] [address] May, [facility] [address] [id number] [address] [place] [address], [place] [address] May, [facility] [address] [id number] [address] [place] [address], [place] [address] May, [facility] [address] [id number] [address] [place] [id number] May, [facility] [address] [id number] [address] [place] [address], [place] [address] May, [facility] [address] [id number] [address] [place] [address] May, [facility] [address] [id number] [address] [place] [address] Apr, [facility] [address] [id number] [address] [place] [address], [place] [address] Apr, [facility] [address] [id number] [address] [place] [address] Apr, [facility] [address] [id number] [address] [place] [address], [place] [address] Feb, [facility] [address] [id number] [address] [place] [address] Feb, [facility] [address] [id number] [address] [place] [id number] Oct, [facility] [address] [id number] [address] [place] [address] Jul, [facility] [address] [id number] [address] [place] [address] Jul, [facility] [address] [id number] [address] [place] [id number] Jun, [facility] [address] [id number] [address] [place] [address] May, [facility] [address] [id number] [address] [place] [address] May, [facility] [address] [id number] [address] [place] [id number] May, [facility] [address] [id number] [address] [place] [address] Apr, [facility] [address] [id number] [address] [place] [address] Jan, [facility] [address] [id number] [address] [place] [address] November, IMMUNIZATIONS No Known Immunizations SOCIAL HISTORY Never Assessed REASON FOR VISIT [facility] PLAN OF CARE VITAL SIGNS MEDICATIONS No [...]
--- OUTSIDE RECORDS SUMMARY | 2020-01-31 09:50 | XMS REPORT ---
Author Author Ivet Knott Doctor Organization [facility] Address Unknown Phone Unavailable Care Team Providers Care Mh Teacher Name Role Phone Migration, Doctor Unavailable Unavailable PROBLEMS Type Condition ICD9-CM Code AQT61-OF Code Onset Dates Condition S tatus SNOMED Code Problem Depression F32.9 Active 51911819 Problem Hypothyroidism E03.9 Active 14898 008 Problem GERD (gastroesophageal reflux disease) K21.9 Active 188849545 Problem Schizo affective schizophrenia F25.0 Active 231870705 Problem Osteoarthritis M19.90 Active 10410 5006 Problem Low back pain, unspecified b ack pain laterality, unspecified chronicity, with sciatica presence unspecified M54.5 Active 692930868 Problem Iron deficiency anemia, unspecified iron deficiency an emia type D50.9 Active 67414049 Problem Essential hypertension I10 Active 70188612 Problem Secondary hyperparathyroidism, not elsewhere classified E21.1 Active 85137919 Problem Anxiety F41.9 Active 15478175 Problem Bilateral carotid artery disease I77.9 Active 560323675 Problem Stage 3 chronic kidney disease N18.3 Active 031441635 Problem Fibromyalgia M79.7 Active 6188849 05 Problem Vitamin D deficiency E55.9 Active 79999571 ALLERGIES No Information ENCOUNTERS Encounter Location Date Diagnosis [facility] [address] [place] [address] Oct, Sore throat J02.9 and Acute nasopharyngitis J00 [facility] [address] [place] [address] [id number] [address] [place] [address] Sep, Osteoarthritis M19.90 [facility] [address] [id number] [address] [place] [address] Sep, Acute non-recurrent maxillar y sinusitis J01.00 [facility] [address] [address] [id number] [address] [place] [address] 18 Aug, 2018 Acute non-recurrent pansinus itis J01.40 [facility] [address] [address] Jul, Osteoarthritis M19.90 [facility] [address] [address] Jul, [place] [address] [address] Apr, Osteoarthritis M19.90 [place] [address] [address] Apr, Fibromyalgia M79.7 ; Essenti al hypertension I10 ; Encounter for immunization Z23 ; Stage 3 chronic kidney disease N18.3 and Depression F32.9 [place] [address] [address] Dec, Fibromyalgia M79.7 ; Osteoar thritis M19.90 and Encounter for medication management Z79.899 [facility] [address] [address] November, Nausea and vomiting, intract ability of vomiting not specified, unspecified vomiting type R11.2 and Dizziness R42 [place] [address] [address] November, Fibromyalgia M79.7 [place] [address] [address] November, Medicare annual wellness vis it, initial Z00.00 ; Anxiety F41.9 ; Depression F32.9 ; Stage 3 chronic kidney disease N18.3 ; Fibromyalgia M79.7 ; Essential hypertension I10 ; Secondary hyperparathyroidism, not elsewhere classified E21.1 ; Osteoarthritis M19.90 ; Hypothyroidism E03.9 and Encounter for immunization Z23 [facility] [address] [address] Oct, [facility] [address] [address] Oct, Sebaceous cyst L72.3 [facility] [address] [place] [address] [id number] [address] [place] [address] 27 Sep, 2017 Low back pain, unspecified b ack pain laterality, unspecified chronicity, with sciatica presence unspecified M54.5 and Secondary hyperparathyroidism, not elsewhere classified E21.1 [facility] [address] [address] 13 Sep, 2017 Fibromyalgia M79.7 [facility] [address] [address] 05 Sep, 2017 Fibromyalgia M79.7 ; Plantar fasciitis, bilateral M72.2 ; Essential hypertension I10 ; Depression F32.9 and Epidermoid cyst L72.0 [place] [address] [address] Jul, [place] [address] [address] Jul, Fibromyalgia M79.7 ; Iron de ficiency anemia, unspecified iron deficiency anemia type D50.9 and Acute nasopharyngitis J00 [facility] [address] [address] Jun, Sore throat J02.9 and Acute serous otitis media of left ear, recurrence not specified H65.02 [facility] [address] [address] Jun, Hypothyroidism E03.9 [facility] [address] [address] Jun, [place] [address] [address] Jun, Hypothyroidism E03.9 ; Essen tial hypertension I10 and Osteoarthritis M19.90 [facility] [address] [address] May, [facility] [address] [address] May, [place] [address] [address] Feb, [place] [address] [address] Feb, Leonela-menopausal N95.1 and To bacco use Z72.[address] [address] Jan, [place] [address] [address] Jan, Osteoarthritis M19.90 ; Bila teral carotid artery disease I77.9 ; Raynauds syndrome I73.00 ; Essential hypertension I10 ; Allergic rhinitis J30.9 ; Stage 3 chronic kidney disease N18.3 ; Fibromyalgia M79.7 ; Hypothyroidism E03.9 ; GERD (gastroesophageal reflux disease) K21.9 and Vitamin D deficiency E55.9 [place] [address] [address] Dec, Raynauds syndrome I73.00 ; P lantar fascial fibromatosis M72.2 ; Osteoarthritis M19.90 and Fibromyalgia M79.7 [place] [address] [place] [id number] [place] [address] Dec, [place] [address] [address] Dec, [place] [address] [address] Oct, Function kidney decreased N2 8.9 [facility] [address] [place] [id number] Oct, Dental examination Z01.20 [place] [address] [place] [id number] [place] [address] Oct, Essential hypertension I10 a nd Function kidney decreased N28.9 [facility] [address] [place] [address] [id number] [address] [place] [id number] 04 Oct, 2016 Dental examination Z01.20 [facility] [address] [id number] [address] [place] [address] Oct, [facility] [address] [address] [id number] [address] [place] [address] 24 Sep, 2016 Other specified disorders in volving the immune mechanism D89.89 and Schizo affective schizophrenia F25.0 [facility] [address] [address] 21 Sep, 2016 Schizo affective schizophren ia F25.0 [facility] [address] [address] 16 Sep, 2016 Eustachian tube dysfunction, bilateral H69.83 [place] [address] [address] 15 Sep, 2016 [facility] [address] [address] 14 Sep, 2016 [facility] [address] [address] 14 Sep, 2016 [facility] [address] [address] 13 Sep, 2016 Eustachian tube dysfunction, bilateral H69.83 [facility] [address] [address] 09 Sep, 2016 Allergic rhinitis J30.9 ; Es sential hypertension I10 ; Hypothyroidism E03.9 and Schizo affective schizophrenia F25.0 [facility] [address] [address] [id number] [place] [address] Jul, Eustachian tube dysfunction, bilateral H69.83 and Visit for TB skin test Z11.1 [facility] [address] [place] [address] Jul, Subacute pansinusitis J01.40 [facility] [address] [address] Jun, Schizo affective schizophren ia F25.0 ; Depression F32.9 ; Allergic rhinitis J30.9 ; Raynauds syndrome I73.00 ; Essential hypertension I10 ; Slow transit constipation K59.01 ; GERD (gastroesophageal reflux disease) K21.9 ; Hypothyroidism E03.9 ; Nicotine addiction F17.200 ; Other viral agents as the cause of diseases classified elsewhere B97.89 ; Acute upper respiratory infection, unspecified J06.9 and Osteoarthritis M19.90 [place] [address] [address] Jun, Allergic rhinitis J30.9 and GERD (gastroesophageal reflux disease) K21.9 [place] [address] [address] May, [place] [address] [address] Mar, Schizo affective schizophren ia F25.0 [place] [address] [address] Mar, Schizo affective schizophren ia F25.0 [place] [address] [address] Mar, Schizo affective schizophren ia F25.0 [place] [address] [address] Mar, Acute non-recurrent maxillar y sinusitis J01.00 [place] [address] [address] Feb, Schizo affective schizophren ia F25.0 [place] [address] [address] Feb, Contact dermatitis and eczem a L25.9 [place] [address] [address] Jan, [place] [address] [address] Jan, Schizo affective schizophren ia F25.0 ; Slow transit constipation K59.01 ; Essential hypertension I10 ; GERD (gastroesophageal reflux disease) K21.9 ; Hypothyroidism E03.9 ; Osteoarthritis M19.90 ; Low back pain, unspecified back pain laterality, unspecified chronicity, with sciatica presence unspecified M54.5 and Bilateral carotid artery disease I77.9 [place] [address] [address] Oct, [place] [address] [address] Sep, Hypothyroid E03.9 [place] [address] [address] Sep, Schizo affective schizophren ia F25.0 ; Depression F32.9 ; Anxiety F41.9 ; Allergic rhinitis J30.9 ; Raynauds syndrome I73.00 ; Insomnia G47.00 ; Essential hypertension I10 ; GERD (gastroesophageal reflux disease) K21.9 ; Hypothyroidism E03.9 and Vitamin D deficiency E55.9 [place] [address] [address] Sep, [place] [address] [address] Sep, [place] [address] [address] Aug, Allergic rhinitis J30.9 ; De pression F32.9 ; Anxiety F41.9 ; Raynauds syndrome I73.00 ; Insomnia G47.00 and GERD (gastroesophageal reflux disease) K21.9 [place] [address] [address] Aug, MONICA (secretory otitis media) H65.90 and Raynauds syndrome I73.00 [facility] [address] [address] Jul, Acute otitis externa of both ears, unspecified type H60.503 [place] [address] [place] [id number] [place] [address] Jun, [place] [address] [place] [id number] [place] [address] Jun, Essential hypertension I10 ; Allergic rhinitis J30.9 ; Hypothyroidism E03.9 and Osteoarthritis M19.90 [place] [address] [place] [id number] [place] [address] Jun, Routine adult health mainten ance Z00.00 ; Hypothyroidism E03.9 ; Essential hypertension I10 ; Insomnia G47.00 ; Nicotine addiction F17.200 ; Raynauds syndrome I73.00 ; GERD (gastroesophageal reflux disease) K21.9 ; Allergic rhinitis J30.9 ; Anxiety F41.9 ; Depression F32.9 and Schizo affective schizophrenia F25.0 [place] [address] [place] [id number] [place] [address] May, Upper respiratory tract infe ction, unspecified type J06.9 [place] [address] [address] Mar, [facility] [id number] [place], [facility] [id number] Mar, [place] [address] [place] [id number] [place] [address] Mar, [place] [address] [place] [id number] [place] [address] Mar, [place] [address] [place] [id number] [place] [address] Feb, Jaw pain 784.92 and Environm ental and seasonal allergies 477.8 [place] [address] [place] [id number] [place] [address] Feb, [place] [address] [address] Oct, [facility] [address] [id number] [address] [place] [address], [place] [address] Oct, [facility] [address] [id number] [address] [place] [address], [place] [address] Oct, [facility] [address] [id number] [address] [place] [address], [place] [address] Oct, [facility] [address] [id number] [address] [place] [address], [place] [address] Sep, [facility] [address] [id number] [address] [place] [address], [place] [address] Sep, [facility] [address] [id number] [address] [place] [address], [place] [address] Jul, [facility] [address] [id number] [address] [place] [address], [place] [address] Jul, [facility] [address] [id number] [address] [place] [address], [place] [address] Jul, [facility] [address] [id number] [address] [place] [address], [place] [address] Jul, [facility] [address] [id number] [address] [place] [address], [place] [address] Jul, [facility] [address] [id number] [address] [place] [address], [place] [address] Jul, [facility] [address] [id number] [address] [place] [address], [place] [address] Jul, [facility] [address] [id number] [address] [place] [address], [place] [address] Jun, [facility] [address] [id number] [address] [place] [address], [place] [address] Jun, [facility] [address] [id number] [address] [place] [address], [place] [address] Jun, [facility] [address] [id number] [address] [place] [address], [place] [address] 18 Jun, 2014 [facility] [address] [id number] [address] [place] [address], [place] [address] Jun, [facility] [address] [id number] [address] [place] [address], [place] [address] Jun, [facility] [address] [id number] [address] [place] [address], [place] [address] Jun, [facility] [address] [id number] [address] [place] [address], [place] [address] Jun, [facility] [address] [id number] [address] [place] [address], [place] [address] Apr, [facility] [address] [id number] [address] [place] [address], [place] [address] Apr, [facility] [address] [id number] [address] [place] [address], [place] [address] Mar, [facility] [address] [id number] [address] [place] [address], [place] [address] Mar, [facility] [address] [id number] [address] [place] [address], [place] [address] Mar, [facility] [address] [id number] [address] [place] [address], [place] [address] Mar, [facility] [address] [id number] [address] [place] [address], [place] [address] Jan, [facility] [address] [id number] [address] [place] [address], [place] [address] Jan, [facility] [address] [id number] [address] [place] [address], [place] [address] Oct, [facility] [address] [id number] [address] [place] [address], [place] [address] Oct, [facility] [address] [id number] [address] [place] [address], [place] [address] Sep, [facility] [address] [id number] [address] [place] [address], [place] [address] Sep, [facility] [address] [id number] [address] [place] [address], [place] [address] Sep, [facility] [address] [id number] [address] [place] [address], [place] [address] Sep, [facility] [address] [id number] [address] [place] [address], [place] [address] Sep, [facility] [address] [id number] [address] [place] [address], [place] [address] Sep, [facility] [address] [id number] [address] [place] [address], [place] [address] Aug, [facility] [address] [id number] [address] [place] [address], [place] [address] Aug, [facility] [address] [id number] [address] [place] [address], [place] [address] Jul, [facility] [address] [id number] [address] [place] [address], [place] [address] Jul, [facility] [address] [id number] [address] [place] [address], [place] [address] Jul, [facility] [address] [id number] [address] [place] [address], [place] [address] Jul, [facility] [address] [id number] [address] [place] [address], [place] [address] Jun, [facility] [address] [id number] [address] [place] [address], [place] [address] Jun, [facility] [address] [id number] [address] [place] [address], [place] [address] May, [facility] [address] [id number] [address] [place] [address], [place] [address] May, [facility] [address] [id number] [address] [place] [address] [place] [address] Apr, [facility] [address] [id number] [address] [place] [address], [place] [address] Apr, [facility] [address] [id number] [address] [place] [address], [place] [address] Apr, [facility] [address] [id number] [address] [place] [address], [place] [address] Apr, [facility] [address] [id number] [address] [place] [address], [place] [address] Apr, [facility] [address] [id number] [address] [place] [address], [place] [address] Apr, [facility] [address] [id number] [address] [place] [address], [place] [address] 24 Mar, 2013 [facility] [address] [id number] [address] [place] [address], [place] [address] 12 Mar, 2013 [facility] [address] [id number] [address] [place] [address], [place] [address] 09 Mar, 2012 [facility] [address] [id number] [address] [place] [address], [place] [address] 05 Mar, 2012 [facility] [address] [id number] [address] [place] [address], [place] [address] 05 Mar, 2013 [facility] [address] [id number] [address] [place] [address], [place] [address] 30 Feb, 2013 [facility] [address] [id number] [address] [place] [address], [place] [address] Feb, [facility] [address] [id number] [address] [place] [address], [place] [address] Feb, [facility] [address] [id number] [address] [place] [address], [place] [address] Feb, [facility] [address] [id number] [address] [place] [address], [place] [address] Jan, [facility] [address] [id number] [facility] [place] [address] 17 Jan, 2013 [facility] [address] [id number] [address] [place] [address], [place] [address] 16 Jan, 2013 [facility] [address] [id number] [address] [place] [address], [place] [address] 11 Jan, 2013 [facility] [address] [id number] [address] [place] [address], [place] [address] 03 Jan, 2013 [facility] [address] [id number] [address] [place] [address], [place] [address] 02 Jan, 2013 [facility] [address] [id number] [address] [place] [address], [place] [address] 27 Dec, 2012 [facility] [address] [id number] [address] [place] [address], [place] [address] 25 Dec, 2012 [facility] [address] [id number] [address] [place] [address], [place] [address] 19 Dec, 2012 [facility] [address] [id number] [address] [place] [address], [place] [address] 14 Dec, 2012 [facility] [address] [id number] [address] [place] [address], [place] [address] 13 Dec, 2012 [facility] [address] [id number] [address] [place] [address], [place] [address] 12 Dec, 2012 [facility] [address] [id number] [address] [place] [address], [place] [address] 11 Dec, 2012 [facility] [address] [id number] [address] [place] [address], [place] [address] 07 Dec, 2012 [facility] [address] [id number] [address] [place] [address], [place] [address] 05 Dec, 2012 [facility] [address] [id number] [address] [place] [address], [place] [address] 03 Dec, 2012 [facility] [address] [id number] [address] [place] [address], [place] [address] November, [facility] [address] [id number] [address] [place] [address], [place] [address] November, [facility] [address] [id number] [address] [place] [address], [place] [address] November, [facility] [address] [id number] [address] [place] [address], [place] [address] November, [facility] [address] [id number] [address] [place] [address], [place] [address] November, [facility] [address] [id number] [address] [place] [address], [place] [address] Oct, [facility] [address] [id number] [address] [place] [address], [place] [address] Oct, [facility] [address] [id number] [address] [place] [address], [place] [id number] Oct, [facility] [address] [id number] [address] [place] [address], [place] [address] Oct, [facility] [address] [id number] [address] [place] [address], [place] [address] Oct, [facility] [address] [id number] [address] [place] [address], [place] [address] Sep, [facility] [address] [id number] [address] [place] [address], [place] [address] Sep, [facility] [address] [id number] [address] [place] [address], [place] [address] Sep, [facility] [address] [id number] [address] [place] [address], [place] [address] Sep, [facility] [address] [id number] [address] [place] [address], [place] [address] Aug, [facility] [address] [id number] [address] [place] [address], [place] [address] Aug, [facility] [address] [id number] [address] [place] [address], [place] [id number] 18 Aug, 2012 [facility] [address] [id number] [address] [place] [address], [place] [id number] 15 Aug, 2012 [facility] [address] [id number] [address] [place] [address], [place] [id number] 17 Jun, 2012 [facility] [address] [id number] [address] [place] [address], [place] [address] Jun, [facility] [address] [id number] [address] [place] [address], [place] [address] Jun, [facility] [address] [id number] [address] [place] [address], [place] [address] Jun, [facility] [address] [id number] [address] [place] [address], [place] [address] Jun, [facility] [address] [id number] [address] [place] [address], [place] [address] Jun, [facility] [address] [id number] [address] [place] [address], [place] [address] Jun, [facility] [address] [id number] [address] [place] [address], [place] [address] Jun, [facility] [address] [id number] [address] [place] [address], [place] [address] Jun, [facility] [address] [id number] [address] [place] [address], [place] [address] Jun, [facility] [address] [id number] [address] [place] [address], [place] [address] May, [facility] [address] [id number] [address] [place] [address], [place] [address] May, [facility] [address] [id number] [address] [place] [address], [place] [address] May, [facility] [address] [id number] [address] [place] [address], [place] [address] May, [facility] [address] [id number] [address] [place] [address], [place] [address] 26 May, 2012 [facility] [address] [id number] [address] [place] [address], [place] [address] 16 May, 2012 [facility] [address] [id number] [address] [place] [address], [place] [address] 16 May, 2012 [facility] [address] [id number] [address] [place] [address], [place] [address] 14 May, 2012 [facility] [address] [id number] [address] [place] [address], [place] [address] 14 May, 2012 [facility] [address] [id number] [address] [place] [address], [place] [address] 30 Apr, 2012 [facility] [address] [id number] [address] [place] [address], [place] [address] 30 Apr, 2012 [facility] [address] [id number] [address] [place] [address], [place] [address] 17 Apr, 2012 [facility] [address] [id number] [address] [place] [address], [place] [address] Apr, [facility] [address] [id number] [address] [place] [address], [place] [address] Apr, [facility] [address] [id number] [address] [place] [address], [place] [address] 18 Mar, 2012 [facility] [address] [id number] [address] [place] [address], [place] [address] 17 Mar, 2012 [facility] [address] [id number] [address] [place] [address], [place] [address] 07 Mar, 2012 [facility] [address] [id number] [address] [place] [address], [place] [address] 27 Feb, 2012 [facility] [address] [id number] [address] [place] [address], [place] [address] 16 Feb, 2012 [facility] [address] [id number] [address] [place] [address] [place] [address] Feb, [facility] [address] [id number] [address] [place] [address], [place] [address] Feb, [facility] [address] [id number] [address] [place] [address], [place] [address] Jan, [facility] [address] [id number] [address] [place] [address], [place] [address] Jan, [facility] [address] [id number] [address] [place] [address], [place] [address] Jan, [facility] [address] [id number] [address] [place] [address], [place] [address] Jan, [facility] [address] [id number] [address] [place] [address], [place] [address] Jan, [facility] [address] [id number] [address] [place] [address], [place] [address] Jan, [facility] [address] [id number] [address] [place] [address], [place] [address] Dec, [facility] [address] [id number] [address] [place] [address], [place] [address] Dec, [facility] [address] [id number] [address] [place] [address], [place] [address] Dec, [facility] [address] [id number] [address] [place] [address], [place] [address] November, [facility] [address] [id number] [address] [place] [address], [place] [address] November, [facility] [address] [id number] [address] [place] [address], [place] [address] November, [facility] [address] [id number] [address] [place] [address], [place] [address] November, [facility] [address] [id number] [address] [place] [address], [place] [address] Oct, [facility] [address] [id number] [address] [place] [address], [place] [address] Oct, [facility] [address] [id number] [address] [place] [address], [place] [address] Oct, [facility] [address] [id number] [address] [place] [address], [place] [address] Sep, [facility] [address] [id number] [address] [place] [address], [place] [address] Sep, [facility] [address] [id number] [address] [place] [address], [place] [address] Aug, [facility] [address] [id number] [address] [place] [address], [place] [address] Aug, [facility] [address] [id number] [address] [place] [address], [place] [address] Aug, [facility] [address] [id number] [address] [place] [address], [place] [address] Aug, [facility] [address] [id number] [address] [place] [address], [place] [address] Jul, [facility] [address] [id number] [address] [place] [address], [place] [address] Jul, [facility] [address] [id number] [address] [place] [address], [place] [address] Jul, [facility] [address] [id number] [address] [place] [address], [place] [address] Jul, [facility] [address] [id number] [address] [place] [address], [place] [address] Jul, [facility] [address] [id number] [address] [place] [address], [place] [address] Jul, [facility] [address] [id number] [address] [place] [address], [place] [address] Jul, [facility] [address] [id number] [address] [place] [address] Jul, [facility] [address] [id number] [address] [place] [address], [place] [address] 30 Jun, 2011 [facility] [address] [id number] [address] [place] [address], [place] [address] Jun, [facility] [address] [id number] [address] [place] [address], [place] [address] 15 Jun, 2011 [facility] [address] [id number] [address] [place] [id number] 08 Jun, 2011 [facility] [address] [id number] [address] [place] [address], [place] [address] Jun, [facility] [address] [id number] [address] [place] [address], [place] [address] May, [facility] [address] [id number] [address] [place] [address], [place] [address] May, [facility] [address] [id number] [address] [place] [address], [place] [address] May, [facility] [address] [id number] [address] [place] [address] May, [facility] [address] [id number] [address] [place] [address], [place] [address] May, [facility] [address] [id number] [address] [place] [address] May, [facility] [address] [id number] [address] [place] [address] Apr, [facility] [address] [id number] [address] [place] [address], [place] [address] Apr, [facility] [address] [id number] [address] [place] [address] Apr, [facility] [address] [id number] [address] [place] [address], [place] [address] Feb, [facility] [address] [id number] [address] [place] [id number] Feb, [facility] [address] [id number] [address] [place] [address] Oct, [facility] [address] [id number] [address] [place] [address] Jul, [facility] [address] [id number] [address] [place] [id number] Jul, [facility] [address] [id number] [address] [place] [id number] Jun, [facility] [address] [id number] [address] [place] [id number] May, [facility] [address] [id number] [address] [place] [address] May, [facility] [address] [id number] [address] [place] [address] May, [facility] [address] [id number] [address] [place] [id number] Apr, [facility] [address] [id number] [address] [place] [id number] Jan, [facility] [address] [id number] [address] [place] [address] November, IMMUNIZATIONS No Known Immunizations SOCIAL HISTORY Never Assessed REASON FOR VISIT [facility] [place] PLAN OF CARE VITAL SIGNS MEDICATIONS No [...]
--- OUTSIDE RECORDS SUMMARY | 2020-01-31 09:50 | XMS REPORT ---
Author Author Ivet Knott Doctor Organization [facility] Address Unknown Phone Unavailable Care Team Providers Care Product Safety Test Engineer Name Role Phone Migration, Doctor Unavailable Unavailable PROBLEMS Type Condition ICD9-CM Code IEU03-BM Code Onset Dates Condition S tatus SNOMED Code Problem Depression F32.9 Active 33762632 Problem Hypothyroidism E03.9 Active 65607 008 Problem GERD (gastroesophageal reflux disease) K21.9 Active 920081093 Problem Schizo affective schizophrenia F25.0 Active 907245903 Problem Osteoarthritis M19.90 Active 50560 5006 Problem Low back pain, unspecified b ack pain laterality, unspecified chronicity, with sciatica presence unspecified M54.5 Active 153882762 Problem Iron deficiency anemia, unspecified iron deficiency an emia type D50.9 Active 32927095 Problem Essential hypertension I10 Active 55849200 Problem Secondary hyperparathyroidism, not elsewhere classified E21.1 Active 89254934 Problem Anxiety F41.9 Active 07438589 Problem Bilateral carotid artery disease I77.9 Active 662778602 Problem Stage 3 chronic kidney disease N18.3 Active 578808353 Problem Fibromyalgia M79.7 Active 8550628 05 Problem Vitamin D deficiency E55.9 Active 76173281 ALLERGIES No Information ENCOUNTERS Encounter Location Date Diagnosis [facility] [address] [place] [address] Oct, Sore throat J02.9 and Acute nasopharyngitis J00 [facility] [address] [id number] [address] [place] [address] Sep, Osteoarthritis M19.90 [facility] [address] [id number] [address] [place] [address] Sep, Acute non-recurrent maxillar y sinusitis J01.00 [facility] [address] [id number] [address] [place] [address] 18 Aug, 2018 Acute non-recurrent pansinus itis J01.40 [facility] [address] [address] Jul, Osteoarthritis M19.90 [facility] [address] [address] Jul, [place] [address] [address] Apr, Osteoarthritis M19.90 [place] [address] [address] Apr, Fibromyalgia M79.7 ; Essenti al hypertension I10 ; Encounter for immunization Z23 ; Stage 3 chronic kidney disease N18.3 and Depression F32.9 [place] [address] [address] Dec, Fibromyalgia M79.7 ; Osteoar thritis M19.90 and Encounter for medication management Z79.899 [facility] [address] [address] November, Nausea and vomiting, intract ability of vomiting not specified, unspecified vomiting type R11.2 and Dizziness R42 [place] [address] [address] November, Fibromyalgia M79.7 [place] [address] [address] November, Medicare annual wellness vis it, initial Z00.00 ; Anxiety F41.9 ; Depression F32.9 ; Stage 3 chronic kidney disease N18.3 ; Fibromyalgia M79.7 ; Essential hypertension I10 ; Secondary hyperparathyroidism, not elsewhere classified E21.1 ; Osteoarthritis M19.90 ; Hypothyroidism E03.9 and Encounter for immunization Z23 [facility] [address] [address] Oct, [facility] [address] [address] Oct, Sebaceous cyst L72.3 [facility] [address] [id number] [address] [place] [address] 27 Sep, 2017 Low back pain, unspecified b ack pain laterality, unspecified chronicity, with sciatica presence unspecified M54.5 and Secondary hyperparathyroidism, not elsewhere classified E21.1 [facility] [address] [address] 13 Sep, 2017 Fibromyalgia M79.7 [facility] [address] [address] 05 Sep, 2017 Fibromyalgia M79.7 ; Plantar fasciitis, bilateral M72.2 ; Essential hypertension I10 ; Depression F32.9 and Epidermoid cyst L72.0 [place] [address] [address] Jul, [place] [address] [address] Jul, Fibromyalgia M79.7 ; Iron de ficiency anemia, unspecified iron deficiency anemia type D50.9 and Acute nasopharyngitis J00 [facility] [address] [address] Jun, Sore throat J02.9 and Acute serous otitis media of left ear, recurrence not specified H65.02 [facility] [address] [address] Jun, Hypothyroidism E03.9 [facility] [address] [address] Jun, [place] [address] [address] Jun, Hypothyroidism E03.9 ; Essen tial hypertension I10 and Osteoarthritis M19.90 [facility] [address] [address] May, [facility] [address] [address] May, [place] [address] [address] Feb, [place] [address] [address] Feb, Leonela-menopausal N95.1 and To bacco use Z72.[address] [address] Jan, [place] [address] [address] Jan, Osteoarthritis M19.90 ; Bila teral carotid artery disease I77.9 ; Raynauds syndrome I73.00 ; Essential hypertension I10 ; Allergic rhinitis J30.9 ; Stage 3 chronic kidney disease N18.3 ; Fibromyalgia M79.7 ; Hypothyroidism E03.9 ; GERD (gastroesophageal reflux disease) K21.9 and Vitamin D deficiency E55.9 [place] [address] [address] Dec, Raynauds syndrome I73.00 ; P lantar fascial fibromatosis M72.2 ; Osteoarthritis M19.90 and Fibromyalgia M79.7 [place] [address] [place] [id number] [address] [place] [address] Dec, [place] [address] [address] Dec, [place] [address] [address] Oct, Function kidney decreased N2 8.9 [facility] [address] [place] [id number] Oct, Dental examination Z01.20 [place] [address] [place] [id number] [address] [place] [address] Oct, Essential hypertension I10 a nd Function kidney decreased N28.9 [facility] [address] [place] [address] [id number] [address] [place] [id number] 04 Oct, 2016 Dental examination Z01.20 [facility] [address] [id number] [address] [place] [address] Oct, [facility] [address] [id number] [address] [place] [address] 24 Sep, 2016 Other specified disorders in volving the immune mechanism D89.89 and Schizo affective schizophrenia F25.0 [facility] [address] [address] 21 Sep, 2016 Schizo affective schizophren ia F25.0 [facility] [address] [address] 16 Sep, 2016 Eustachian tube dysfunction, bilateral H69.83 [place] [address] [address] 15 Sep, 2016 [facility] [address] [address] 14 Sep, 2016 [facility] [address] [address] 14 Sep, 2016 [facility] [address] [address] 13 Sep, 2016 Eustachian tube dysfunction, bilateral H69.83 [facility] [address] [address] 09 Sep, 2016 Allergic rhinitis J30.9 ; Es sential hypertension I10 ; Hypothyroidism E03.9 and Schizo affective schizophrenia F25.0 [facility] [address] [id number] [address] [place] [address] Jul, Eustachian tube dysfunction, bilateral H69.83 and Visit for TB skin test Z11.1 [facility] [address] [place] [address] Jul, Subacute pansinusitis J01.40 [facility] [address] [address] Jun, Schizo affective schizophren ia F25.0 ; Depression F32.9 ; Allergic rhinitis J30.9 ; Raynauds syndrome I73.00 ; Essential hypertension I10 ; Slow transit constipation K59.01 ; GERD (gastroesophageal reflux disease) K21.9 ; Hypothyroidism E03.9 ; Nicotine addiction F17.200 ; Other viral agents as the cause of diseases classified elsewhere B97.89 ; Acute upper respiratory infection, unspecified J06.9 and Osteoarthritis M19.90 [place] [address] [address] Jun, Allergic rhinitis J30.9 and GERD (gastroesophageal reflux disease) K21.9 [place] [address] [address] May, [place] [address] [address] Mar, Schizo affective schizophren ia F25.0 [place] [address] [address] Mar, Schizo affective schizophren ia F25.0 [place] [address] [address] Mar, Schizo affective schizophren ia F25.0 [place] [address] [address] Mar, Acute non-recurrent maxillar y sinusitis J01.00 [place] [address] [address] Feb, Schizo affective schizophren ia F25.0 [place] [address] [address] Feb, Contact dermatitis and eczem a L25.9 [place] [address] [address] Jan, [place] [address] [address] Jan, Schizo affective schizophren ia F25.0 ; Slow transit constipation K59.01 ; Essential hypertension I10 ; GERD (gastroesophageal reflux disease) K21.9 ; Hypothyroidism E03.9 ; Osteoarthritis M19.90 ; Low back pain, unspecified back pain laterality, unspecified chronicity, with sciatica presence unspecified M54.5 and Bilateral carotid artery disease I77.9 [place] [address] [address] Oct, [place] [address] [address] Sep, Hypothyroid E03.9 [place] [address] [address] Sep, Schizo affective schizophren ia F25.0 ; Depression F32.9 ; Anxiety F41.9 ; Allergic rhinitis J30.9 ; Raynauds syndrome I73.00 ; Insomnia G47.00 ; Essential hypertension I10 ; GERD (gastroesophageal reflux disease) K21.9 ; Hypothyroidism E03.9 and Vitamin D deficiency E55.9 [place] [address] [address] Sep, [place] [address] [address] Sep, [place] [address] [address] Aug, Allergic rhinitis J30.9 ; De pression F32.9 ; Anxiety F41.9 ; Raynauds syndrome I73.00 ; Insomnia G47.00 and GERD (gastroesophageal reflux disease) K21.9 [place] [address] [address] Aug, MONICA (secretory otitis media) H65.90 and Raynauds syndrome I73.00 [facility] [address] [address] Jul, Acute otitis externa of both ears, unspecified type H60.503 [place] [address] [place] [id number] [address] [place] [address] Jun, [place] [address] [place] [id number] [place] [address] Jun, Essential hypertension I10 ; Allergic rhinitis J30.9 ; Hypothyroidism E03.9 and Osteoarthritis M19.90 [place] [address] [place] [id number] [place] [address] Jun, Routine adult health mainten ance Z00.00 ; Hypothyroidism E03.9 ; Essential hypertension I10 ; Insomnia G47.00 ; Nicotine addiction F17.200 ; Raynauds syndrome I73.00 ; GERD (gastroesophageal reflux disease) K21.9 ; Allergic rhinitis J30.9 ; Anxiety F41.9 ; Depression F32.9 and Schizo affective schizophrenia F25.0 [place] [address] [place] [id number] [address] [place] [address] May, Upper respiratory tract infe ction, unspecified type J06.9 [place] [address] [address] Mar, [facility] [id number] [place], [facility] [id number] Mar, [place] [address] [id number] [address] [place] [address] Mar, [place] [address] [place] [id number] [place] [address] Mar, [place] [address] [place] [id number] [place] [address] Feb, Jaw pain 784.92 and Environm ental and seasonal allergies 477.8 [place] [address] [place] [id number] [place] [address] Feb, [place] [address] [address] Oct, [facility] [address] [id number] [address] [place] [address], [place] [address] Oct, [facility] [address] [id number] [address] [place] [address], [place] [address] Oct, [facility] [address] [id number] [address] [place] [address], [place] [address] Oct, [facility] [address] [id number] [address] [place] [address], [place] [address] Sep, [facility] [address] [id number] [address] [place] [address], [place] [address] Sep, [facility] [address] [id number] [address] [place] [address], [place] [address] Jul, [facility] [address] [id number] [address] [place] [address], [place] [address] Jul, [facility] [address] [id number] [address] [place] [address], [place] [address] Jul, [facility] [address] [id number] [address] [place] [address], [place] [address] Jul, [facility] [address] [id number] [address] [place] [address], [place] [address] Jul, [facility] [address] [id number] [address] [place] [address], [place] [address] Jul, [facility] [address] [id number] [address] [place] [address], [place] [address] Jul, [facility] [address] [id number] [address] [place] [address], [place] [address] Jun, [facility] [address] [id number] [address] [place] [address], [place] [address] Jun, [facility] [address] [id number] [address] [place] [address], [place] [address] Jun, [facility] [address] [id number] [address] [place] [address], [place] [address] 18 Jun, 2014 [facility] [address] [id number] [address] [place] [address], [place] [address] Jun, [facility] [address] [id number] [address] [place] [address], [place] [address] Jun, [facility] [address] [id number] [address] [place] [address], [place] [address] Jun, [facility] [address] [id number] [address] [place] [address], [place] [address] Jun, [facility] [address] [id number] [address] [place] [address], [place] [address] Apr, [facility] [address] [id number] [address] [place] [address], [place] [address] Apr, [facility] [address] [id number] [address] [place] [address], [place] [address] Mar, [facility] [address] [id number] [address] [place] [address], [place] [address] Mar, [facility] [address] [id number] [address] [place] [address], [place] [address] Mar, [facility] [address] [id number] [address] [place] [address], [place] [address] Mar, [facility] [address] [id number] [address] [place] [address], [place] [address] Jan, [facility] [address] [id number] [address] [place] [address], [place] [address] Jan, [facility] [address] [id number] [address] [place] [address], [place] [address] Oct, [facility] [address] [id number] [address] [place] [address], [place] [address] Oct, [facility] [address] [id number] [address] [place] [address], [place] [address] Sep, [facility] [address] [id number] [address] [place] [address], [place] [address] Sep, [facility] [address] [id number] [address] [place] [address], [place] [address] Sep, [facility] [address] [id number] [address] [place] [address], [place] [address] Sep, [facility] [address] [id number] [address] [place] [address], [place] [address] Sep, [facility] [address] [id number] [address] [place] [address], [place] [address] Sep, [facility] [address] [id number] [address] [place] [address], [place] [address] Aug, [facility] [address] [id number] [address] [place] [address], [place] [address] Aug, [facility] [address] [id number] [address] [place] [address], [place] [address] Jul, [facility] [address] [id number] [address] [place] [address], [place] [address] Jul, [facility] [address] [id number] [address] [place] [address], [place] [address] Jul, [facility] [address] [id number] [address] [place] [address], [place] [address] Jul, [facility] [address] [id number] [address] [place] [address], [place] [address] Jun, [facility] [address] [id number] [address] [place] [address], [place] [address] Jun, [facility] [address] [id number] [address] [place] [address], [place] [address] May, [facility] [address] [id number] [address] [place] [address], [place] [address] May, [facility] [address] [id number] [address] [place] [address] [place] [address] Apr, [facility] [address] [id number] [address] [place] [address], [place] [address] Apr, [facility] [address] [id number] [address] [place] [address], [place] [address] Apr, [facility] [address] [id number] [address] [place] [address], [place] [address] Apr, [facility] [address] [id number] [address] [place] [address], [place] [address] Apr, [facility] [address] [id number] [address] [place] [address], [place] [address] Apr, [facility] [address] [id number] [address] [place] [address], [place] [address] 24 Mar, 2013 [facility] [address] [id number] [address] [place] [address], [place] [address] 12 Mar, 2013 [facility] [address] [id number] [address] [place] [address], [place] [address] 09 Mar, 2012 [facility] [address] [id number] [address] [place] [address], [place] [address] 05 Mar, 2012 [facility] [address] [id number] [address] [place] [address], [place] [address] 05 Mar, 2013 [facility] [address] [id number] [address] [place] [address], [place] [address] 30 Feb, 2013 [facility] [address] [id number] [address] [place] [address], [place] [address] Feb, [facility] [address] [id number] [address] [place] [address], [place] [address] Feb, [facility] [address] [id number] [address] [place] [address], [place] [address] Feb, [facility] [address] [id number] [address] [place] [address], [place] [address] Jan, [facility] [address] [id number] [facility] [place] [address] 17 Jan, 2013 [facility] [address] [id number] [address] [place] [address], [place] [address] 16 Jan, 2013 [facility] [address] [id number] [address] [place] [address], [place] [address] 11 Jan, 2013 [facility] [address] [id number] [address] [place] [address], [place] [address] 03 Jan, 2013 [facility] [address] [id number] [address] [place] [address], [place] [address] 02 Jan, 2013 [facility] [address] [id number] [address] [place] [address], [place] [address] 27 Dec, 2012 [facility] [address] [id number] [address] [place] [address], [place] [address] 25 Dec, 2012 [facility] [address] [id number] [address] [place] [address], [place] [address] 19 Dec, 2012 [facility] [address] [id number] [address] [place] [address], [place] [address] 14 Dec, 2012 [facility] [address] [id number] [address] [place] [address], [place] [address] 13 Dec, 2012 [facility] [address] [id number] [address] [place] [address], [place] [address] 12 Dec, 2012 [facility] [address] [id number] [address] [place] [address], [place] [address] 11 Dec, 2012 [facility] [address] [id number] [address] [place] [address], [place] [address] 07 Dec, 2012 [facility] [address] [id number] [address] [place] [address], [place] [address] 05 Dec, 2012 [facility] [address] [id number] [address] [place] [address], [place] [address] 03 Dec, 2012 [facility] [address] [id number] [address] [place] [address], [place] [address] November, [facility] [address] [id number] [address] [place] [address], [place] [address] November, [facility] [address] [id number] [address] [place] [address], [place] [address] November, [facility] [address] [id number] [address] [place] [address], [place] [address] November, [facility] [address] [id number] [address] [place] [address], [place] [address] November, [facility] [address] [id number] [address] [place] [address], [place] [address] Oct, [facility] [address] [id number] [address] [place] [address], [place] [address] Oct, [facility] [address] [id number] [address] [place] [address], [place] [address] Oct, [facility] [address] [id number] [address] [place] [address], [place] [address] Oct, [facility] [address] [id number] [address] [place] [address], [place] [address] Oct, [facility] [address] [id number] [address] [place] [address], [place] [address] Sep, [facility] [address] [id number] [address] [place] [address], [place] [address] Sep, [facility] [address] [id number] [address] [place] [address], [place] [address] Sep, [facility] [address] [id number] [address] [place] [address], [place] [address] Sep, [facility] [address] [id number] [address] [place] [address], [place] [address] Aug, [facility] [address] [id number] [address] [place] [address], [place] [address] Aug, [facility] [address] [id number] [address] [place] [address], [place] [address] 18 Aug, 2012 [facility] [address] [id number] [address] [place] [address], [place] [address] 15 Aug, 2012 [facility] [address] [id number] [address] [place] [address], [place] [address] 17 Jun, 2012 [facility] [address] [id number] [address] [place] [address], [place] [address] Jun, [facility] [address] [id number] [address] [place] [address], [place] [address] Jun, [facility] [address] [id number] [address] [place] [address], [place] [address] Jun, [facility] [address] [id number] [address] [place] [address], [place] [address] Jun, [facility] [address] [id number] [address] [place] [address], [place] [address] Jun, [facility] [address] [id number] [address] [place] [address], [place] [address] Jun, [facility] [address] [id number] [address] [place] [address], [place] [address] Jun, [facility] [facility] [address] [id number] [address] [place] [address], [place] [address] Jun, [facility] [address] [id number] [address] [place] [address], [place] [address] Jun, [facility] [address] [id number] [address] [place] [address], [place] [address] May, [facility] [address] [id number] [address] [place] [address], [place] [address] May, [facility] [address] [id number] [address] [place] [address], [place] [address] May, [facility] [address] [id number] [address] [place] [address], [place] [address] May, [facility] [address] [id number] [address] [place] [address], [place] [address] 26 May, 2012 [facility] [address] [id number] [address] [place] [address], [place] [address] 16 May, 2012 [facility] [address] [id number] [address] [place] [address], [place] [address] 16 May, 2012 [facility] [address] [id number] [address] [place] [address], [place] [address] 14 May, 2012 [facility] [address] [id number] [address] [place] [address], [place] [address] 14 May, 2012 [facility] [address] [id number] [address] [place] [address], [place] [address] 30 Apr, 2012 [facility] [address] [id number] [address] [place] [address], [place] [address] 30 Apr, 2012 [facility] [address] [id number] [address] [place] [address], [place] [address] 17 Apr, 2012 [facility] [address] [id number] [address] [place] [address], [place] [address] Apr, [facility] [address] [id number] [address] [place] [address], [place] [address] Apr, [facility] [address] [id number] [address] [place] [address], [place] [address] 18 Mar, 2012 [facility] [address] [id number] [address] [place] [address], [place] [address] 17 Mar, 2012 [facility] [address] [id number] [address] [place] [address], [place] [address] 07 Mar, 2012 [facility] [address] [id number] [address] [place] [address], [place] [address] 27 Feb, 2012 [facility] [address] [id number] [address] [place] [address], [place] [address] 16 Feb, 2012 [facility] [address] [id number] [address] [place] [address] [place] [address] Feb, [facility] [address] [id number] [address] [place] [address], [place] [address] Feb, [facility] [address] [id number] [address] [place] [address], [place] [address] Jan, [facility] [address] [id number] [address] [place] [address], [place] [address] Jan, [facility] [address] [id number] [address] [place] [address], [place] [address] Jan, [facility] [address] [id number] [address] [place] [address], [place] [address] Jan, [facility] [address] [id number] [address] [place] [address], [place] [address] Jan, [facility] [address] [id number] [address] [place] [address], [place] [address] Jan, [facility] [address] [id number] [address] [place] [address], [place] [address] Dec, [facility] [address] [id number] [address] [place] [address], [place] [address] Dec, [facility] [address] [id number] [address] [place] [address], [place] [address] Dec, [facility] [address] [id number] [address] [place] [address], [place] [address] November, [facility] [address] [id number] [address] [place] [address], [place] [address] November, [facility] [address] [id number] [address] [place] [address], [place] [address] November, [facility] [address] [id number] [address] [place] [address], [place] [address] November, [facility] [address] [id number] [address] [place] [address], [place] [address] Oct, [facility] [address] [id number] [address] [place] [address], [place] [address] Oct, [facility] [address] [id number] [address] [place] [address], [place] [address] Oct, [facility] [address] [id number] [address] [place] [address], [place] [address] Sep, [facility] [address] [id number] [address] [place] [address], [place] [address] Sep, [facility] [address] [id number] [address] [place] [address], [place] [address] Aug, [facility] [address] [id number] [address] [place] [address], [place] [address] Aug, [facility] [address] [id number] [address] [place] [address], [place] [address] Aug, [facility] [address] [id number] [address] [place] [address], [place] [address] Aug, [facility] [address] [id number] [address] [place] [address], [place] [address] Jul, [facility] [address] [id number] [address] [place] [address], [place] [address] Jul, [facility] [address] [id number] [address] [place] [address], [place] [address] Jul, [facility] [address] [id number] [address] [place] [address], [place] [address] Jul, [facility] [address] [id number] [address] [place] [address], [place] [address] Jul, [facility] [address] [id number] [address] [place] [address], [place] [address] Jul, [facility] [address] [id number] [address] [place] [address], [place] [address] Jul, [facility] [address] [id number] [address] [place] [address] Jul, [facility] [address] [id number] [address] [place] [address], [place] [address] 30 Jun, 2011 [facility] [address] [id number] [address] [place] [address], [place] [address] Jun, [facility] [address] [id number] [address] [place] [address], [place] [address] 15 Jun, 2011 [facility] [address] [id number] [address] [place] [address] 08 Jun, 2011 [facility] [address] [id number] [address] [place] [address], [place] [address] Jun, [facility] [address] [id number] [address] [place] [address], [place] [address] May, [facility] [address] [id number] [address] [place] [address], [place] [address] May, [facility] [address] [id number] [address] [place] [address], [place] [address] May, [facility] [address] [id number] [address] [place] [address] May, [facility] [address] [id number] [address] [place] [address], [place] [address] May, [facility] [address] [id number] [address] [place] [address] May, [facility] [address] [id number] [address] [place] [address] Apr, [facility] [address] [id number] [address] [place] [address], [place] [address] Apr, [facility] [address] [id number] [address] [place] [address] Apr, [facility] [address] [id number] [address] [place] [address], [place] [address] Feb, [facility] [address] [id number] [address] [place] [address] Feb, [facility] [address] [id number] [address] [place] [address] Oct, [facility] [address] [id number] [address] [place] [address] Jul, [facility] [address] [id number] [address] [place] [address] Jul, [facility] [address] [id number] [address] [place] [address] Jun, [facility] [address] [id number] [address] [place] [address] May, [facility] [address] [id number] [address] [place] [address] May, [facility] [address] [id number] [address] [place] [address] May, [facility] [address] [id number] [address] [place] [address] Apr, [facility] [address] [id number] [address] [place] [address] Jan, [facility] [address] [id number] [address] [place] [address] November, IMMUNIZATIONS No Known Immunizations SOCIAL HISTORY Never Assessed REASON FOR VISIT [facility] [place] VITAL SIGNS MEDICATIONS No [...]
[2020-01-31 09:51] LABS: CREATINE KINASE MB 2.4 NG/ML (<6.6)
--- OUTSIDE RECORDS SUMMARY | 2020-01-31 09:51 | XMS REPORT ---
Author Author Ivet Knott Doctor Organization [facility] Address Unknown Phone Unavailable Care Team Providers Care Reliner Name Role Phone Migration, Doctor Unavailable Unavailable PROBLEMS Type Condition ICD9-CM Code EZA71-RF Code Onset Dates Condition S tatus SNOMED Code Problem Depression F32.9 Active 81437160 Problem Hypothyroidism E03.9 Active 50454 008 Problem GERD (gastroesophageal reflux disease) K21.9 Active 628036213 Problem Schizo affective schizophrenia F25.0 Active 845252609 Problem Osteoarthritis M19.90 Active 81653 5006 Problem Low back pain, unspecified b ack pain laterality, unspecified chronicity, with sciatica presence unspecified M54.5 Active 396053177 Problem Iron deficiency anemia, unspecified iron deficiency an emia type D50.9 Active 32888445 Problem Essential hypertension I10 Active 97818739 Problem Secondary hyperparathyroidism, not elsewhere classified E21.1 Active 09705703 Problem Anxiety F41.9 Active 02648622 Problem Bilateral carotid artery disease I77.9 Active 665491392 Problem Stage 3 chronic kidney disease N18.3 Active 781870639 Problem Fibromyalgia M79.7 Active 3980420 05 Problem Vitamin D deficiency E55.9 Active 10274162 ALLERGIES No Information ENCOUNTERS Encounter Location Date Diagnosis [facility] [id number] [place] [phone] Sep, Osteoarthritis M19.90 [facility] [id number] [place] [address] Sep, Acute non-recurrent maxillar y sinusitis J01.00 [facility] [id number] [place] [id number] 18 Aug, 2018 Acute non-recurrent pansinus itis J01.40 [facility] [id number] [place] [address] Jul, Osteoarthritis M19.90 [place] [id number] [facility] [id number] [address] [place] [address] Jul, [facility] [address] [facility] [id number] [address] [place] [id number] 18 Apr, 2018 Osteoarthritis M19.90 [facility] [address] [facility] [id number] [address] [place] [id number] 08 Apr, 2018 Fibromyalgia M79.7 ; Essenti al hypertension I10 ; Encounter for immunization Z23 ; Stage 3 chronic kidney disease N18.3 and Depression F32.9 [facility] [address] [facility] [id number] [address] [place] [id number] 12 Dec, 2017 Fibromyalgia M79.7 ; Osteoar thritis M19.90 and Encounter for medication management Z79.899 [facility] [address] [facility] [id number] [address] [place] [phone] November, Nausea and vomiting, intract ability of vomiting not specified, unspecified vomiting type R11.2 and Dizziness R42 [facility] [address] [id number] [address] [place] [phone] November, Fibromyalgia M79.7 [place] [id number] [place] [address] 11 Nov, 2017 Medicare annual wellness vis it, initial Z00.00 ; Anxiety F41.9 ; Depression F32.9 ; Stage 3 chronic kidney disease N18.3 ; Fibromyalgia M79.7 ; Essential hypertension I10 ; Secondary hyperparathyroidism, not elsewhere classified E21.1 ; Osteoarthritis M19.90 ; Hypothyroidism E03.9 and Encounter for immunization Z23 [facility] [address] [facility] [id number] [address] [place] [phone] Oct, [place] [address] [id number] [address] [place] [phone] Oct, Sebaceous cyst L72.3 [place] [address] [facility] [id number] [address] [place] [phone] Sep, Low back pain, unspecified b ack pain laterality, unspecified chronicity, with sciatica presence unspecified M54.5 and Secondary hyperparathyroidism, not elsewhere classified E21.1 [facility] [address] [address] Sep, Fibromyalgia M79.7 [facility] [address] [address] Sep, Fibromyalgia M79.7 ; Plantar fasciitis, bilateral M72.2 ; Essential hypertension I10 ; Depression F32.9 and Epidermoid cyst L72.0 [facility] [address] [address] Jul, [place] [address] [address] Jul, Fibromyalgia M79.7 ; Iron de ficiency anemia, unspecified iron deficiency anemia type D50.9 and Acute nasopharyngitis J00 [facility] [address] [address] Jun, Sore throat J02.9 and Acute serous otitis media of left ear, recurrence not specified H65.02 [place] [address] [address] Jun, Hypothyroidism E03.9 [place] [address] [address] Jun, [place] [address] [address] Jun, Hypothyroidism E03.9 ; Essen tial hypertension I10 and Osteoarthritis M19.90 [place] [address] [address] May, [place] [address] [phone] May, [place] [address] [address] Feb, [place] [id number] [place] [address] Feb, Leonela-menopausal N95.1 and To bacco use Z72.0 [place] [address] [id number] [place] [address] Jan, [place] [id number] [place] [address] Jan, Osteoarthritis M19.90 ; Bila teral carotid artery disease I77.9 ; Raynauds syndrome I73.00 ; Essential hypertension I10 ; Allergic rhinitis J30.9 ; Stage 3 chronic kidney disease N18.3 ; Fibromyalgia M79.7 ; Hypothyroidism E03.9 ; GERD (gastroesophageal reflux disease) K21.9 and Vitamin D deficiency E55.9 [place] [address] [address] Dec, Raynauds syndrome I73.00 ; P lantar fascial fibromatosis M72.2 ; Osteoarthritis M19.90 and Fibromyalgia M79.7 [place] [id number] [place] [address] Dec, [place] [address] [address] Dec, [place] [address] [address] Oct, Function kidney decreased N2 8.9 [facility] [id number] [place] [id number] Oct, Dental examination Z01.20 [facility] [address] [facility] [id number] [address] [place] [phone] 18 Oct, 2016 Essential hypertension I10 a nd Function kidney decreased N28.9 [facility] [address] [facility] [id number] [address] [place] [id number] Oct, Dental examination Z01.20 [place] [id number] [place] [phone] Oct, [facility] [address] [id number] [address] [place] [phone] 24 Sep, 2016 Other specified disorders in volving the immune mechanism D89.89 and Schizo affective schizophrenia F25.0 [facility] [address] [facility] [id number] [address] [place] [phone] 21 Sep, 2016 Schizo affective schizophren ia F25.0 [facility] [address] [facility] [id number] [address] [place] [phone] 16 Sep, 2016 Eustachian tube dysfunction, bilateral H69.83 [place] [id number] [place] [address] 15 Sep, 2016 [facility] [id number] [place] [phone] 14 Sep, 2016 [place] [address] [address] 14 Sep, 2016 [facility] [address] [id number] [address] [place] [phone] 13 Sep, 2016 Eustachian tube dysfunction, bilateral H69.83 [place] [address] [id number] [address] [place] [phone] 09 Sep, 2016 Allergic rhinitis J30.9 ; Es sential hypertension I10 ; Hypothyroidism E03.9 and Schizo affective schizophrenia F25.0 [facility] [address] [id number] [address] [place] [phone] Jul, Eustachian tube dysfunction, bilateral H69.83 and Visit for TB skin test Z11.1 [facility] [address] [facility] [id number] [address] [place] [phone] Jul, Subacute pansinusitis J01.40 [facility] [address] [facility] [id number] [address] [place] [phone] Jun, Schizo affective schizophren ia F25.0 ; Depression F32.9 ; Allergic rhinitis J30.9 ; Raynauds syndrome I73.00 ; Essential hypertension I10 ; Slow transit constipation K59.01 ; GERD (gastroesophageal reflux disease) K21.9 ; Hypothyroidism E03.9 ; Nicotine addiction F17.200 ; Other viral agents as the cause of diseases classified elsewhere B97.89 ; Acute upper respiratory infection, unspecified J06.9 and Osteoarthritis M19.90 [place] [address] [address] Jun, Allergic rhinitis J30.9 and GERD (gastroesophageal reflux disease) K21.9 [place] [address] [address] May, [place] [address] [address] Mar, Schizo affective schizophren ia F25.0 [place] [address] [address] Mar, Schizo affective schizophren ia F25.0 [place] [address] [address] Mar, Schizo affective schizophren ia F25.0 [place] [address] [address] Mar, Acute non-recurrent maxillar y sinusitis J01.00 [place] [address] [address] Feb, Schizo affective schizophren ia F25.0 [place] [address] [place] [address] Feb, Contact dermatitis and eczem a L25.9 [place] [address] [address] Jan, [place] [id number] [address] [place] [address] Jan, Schizo affective schizophren ia F25.0 ; Slow transit constipation K59.01 ; Essential hypertension I10 ; GERD (gastroesophageal reflux disease) K21.9 ; Hypothyroidism E03.9 ; Osteoarthritis M19.90 ; Low back pain, unspecified back pain laterality, unspecified chronicity, with sciatica presence unspecified M54.5 and Bilateral carotid artery disease I77.9 [place] [address] [address] Oct, [place] [address] [address] Sep, Hypothyroid E03.9 [place] [address] [address] Sep, Schizo affective schizophren ia F25.0 ; Depression F32.9 ; Anxiety F41.9 ; Allergic rhinitis J30.9 ; Raynauds syndrome I73.00 ; Insomnia G47.00 ; Essential hypertension I10 ; GERD (gastroesophageal reflux disease) K21.9 ; Hypothyroidism E03.9 and Vitamin D deficiency E55.9 [place] [address] [address] Sep, [place] [address] [address] Sep, [place] [address] [address] Aug, Allergic rhinitis J30.9 ; De pression F32.9 ; Anxiety F41.9 ; Raynauds syndrome I73.00 ; Insomnia G47.00 and GERD (gastroesophageal reflux disease) K21.9 [place] [address] [address] Aug, MONICA (secretory otitis media) H65.90 and Raynauds syndrome I73.00 [facility] [address] [address] Jul, Acute otitis externa of both ears, unspecified type H60.503 [place] [address] [address] Jun, [facility] [address] [facility] [id number] [address] [place] [phone] Jun, Essential hypertension I10 ; Allergic rhinitis J30.9 ; Hypothyroidism E03.9 and Osteoarthritis M19.90 [facility] [address] [facility] [id number] [address] [place] [address] Jun, Routine adult health mainten ance Z00.00 ; Hypothyroidism E03.9 ; Essential hypertension I10 ; Insomnia G47.00 ; Nicotine addiction F17.200 ; Raynauds syndrome I73.00 ; GERD (gastroesophageal reflux disease) K21.9 ; Allergic rhinitis J30.9 ; Anxiety F41.9 ; Depression F32.9 and Schizo affective schizophrenia F25.0 [facility] [address] [place] [phone] May, Upper respiratory tract infe ction, unspecified type J06.9 [facility] [address] [place] [address] Mar, [facility] [address] [facility] [id number] [place] [id number] Mar, [facility] [id number] [place] [address] Mar, [facility] [address] [place] [address] Mar, [facility] [id number] [place] [address] Feb, Jaw pain 784.92 and Environm ental and seasonal allergies 477.8 [facility] [address] [facility] [id number] [address] [place] [phone] Feb, [facility] [address] [id number] [address] [place] [phone] Oct, [facility] [id number] [place] [phone] Oct, [facility] [address] [id number] [address] [place] [address], [place] [address] 14 Oct, 2014 [facility] [address] [id number] [address] [place] [address], [place] [address] 13 Oct, 2014 [facility] [address] [id number] [address] [place] [address], [place] [address] Sep, [facility] [address] [id number] [address] [place] [address], [place] [address] Sep, [facility] [address] [id number] [address] [place] [address], [place] [address] Jul, [facility] [address] [id number] [address] [place] [address], [place] [address] Jul, [facility] [address] [id number] [address] [place] [address], [place] [address] Jul, [facility] [address] [id number] [address] [place] [address], [place] [address] Jul, [facility] [address] [id number] [address] [place] [address], [place] [address] Jul, [facility] [address] [id number] [address] [place] [address], [place] [address] Jul, [facility] [address] [id number] [address] [place] [address], [place] [address] Jul, [facility] [address] [id number] [address] [place] [address], [place] [address] Jun, [facility] [address] [id number] [address] [place] [address], [place] [address] 31 Jun, 2014 [facility] [address] [id number] [address] [place] [address], [place] [address] 22 Jun, 2014 [facility] [address] [id number] [address] [place] [address], [place] [address] 18 Jun, 2014 [facility] [address] [id number] [address] [place] [address], [place] [address] 17 Jun, 2014 [facility] [address] [id number] [address] [place] [address], [place] [address] 17 Jun, 2014 [facility] [address] [id number] [address] [place] [address], [place] [address] Jun, [facility] [address] [id number] [address] [place] [address], [place] [address] Jun, [facility] [address] [id number] [address] [place] [address], [place] [address] Apr, [facility] [address] [id number] [address] [place] [address], [place] [address] Apr, [facility] [address] [id number] [address] [place] [address], [place] [address] Mar, [facility] [address] [id number] [address] [place] [address], [place] [address] Mar, [facility] [address] [id number] [address] [place] [address], [place] [address] Mar, [facility] [address] [id number] [address] [place] [address], [place] [address] Mar, [facility] [address] [id number] [address] [place] [address], [place] [address] Jan, [facility] [address] [id number] [address] [place] [address], [place] [address] Jan, [facility] [address] [id number] [address] [place] [address], [place] [address] Oct, [facility] [address] [id number] [address] [place] [address], [place] [address] Oct, [facility] [address] [id number] [address] [place] [address], [place] [address] Sep, [facility] [address] [id number] [address] [place] [address], [place] [address] Sep, [facility] [address] [id number] [address] [place] [address], [place] [address] 05 Sep, 2013 [facility] [address] [id number] [address] [place] [address], [place] [address] Sep, [facility] [address] [id number] [address] [place] [address], [place] [address] Sep, [facility] [address] [id number] [address] [place] [address], [place] [address] Sep, [facility] [address] [id number] [address] [place] [address], [place] [address] Aug, [facility] [address] [id number] [address] [place] [address], [place] [address] Aug, [facility] [address] [id number] [address] [place] [address], [place] [address] Jul, [facility] [address] [id number] [address] [place] [address], [place] [address] Jul, [facility] [address] [id number] [address] [place] [address], [place] [address] Jul, [facility] [address] [id number] [address] [place] [address], [place] [address] Jul, [facility] [address] [id number] [address] [place] [address], [place] [address] Jun, [facility] [address] [id number] [address] [place] [address], [place] [address] Jun, [facility] [address] [id number] [address] [place] [address], [place] [address] May, [facility] [address] [id number] [address] [place] [address], [place] [address] May, [facility] [address] [id number] [address] [place] [address], [place] [address] Apr, [facility] [address] [id number] [address] [place] [address], [place] [address] Apr, [facility] [address] [id number] [address] [place] [address], [place] [address] Apr, [facility] [address] [id number] [address] [place] [address], [place] [address] Apr, [facility] [address] [id number] [address] [place] [address], [place] [address] Apr, [facility] [address] [id number] [address] [place] [address], [place] [address] Apr, [facility] [address] [id number] [address] [place] [address], [place] [address] Mar, [facility] [address] [id number] [address] [place] [address], [place] [address] Mar, [facility] [address] [id number] [address] [place] [address], [place] [address] Mar, [facility] [address] [id number] [address] [place] [address], [place] [address] Mar, [facility] [address] [id number] [address] [place] [address], [place] [address] Mar, [facility] [address] [id number] [address] [place] [address], [place] [address] Feb, [facility] [address] [id number] [address] [place] [address], [place] [address] Feb, [facility] [address] [id number] [address] [place] [address], [place] [address] Feb, [facility] [address] [id number] [address] [place] [address], [place] [address] Feb, [facility] [address] [id number] [address] [place] [address], [place] [address] Jan, [facility] [address] [id number] [address] [place] [address], [place] [address] Jan, [facility] [address] [id number] [address] [place] [address], [place] [address] 16 Jan, 2013 [facility] [address] [id number] [facility] [address] Jan, [facility] [address] [id number] [address] [place] [address], [place] [address] Jan, [facility] [address] [id number] [address] [place] [address], [place] [address] Jan, [facility] [address] [id number] [address] [place] [address], [place] [address] Dec, [facility] [address] [id number] [address] [place] [address], [place] [address] Dec, [facility] [address] [id number] [address] [place] [address], [place] [address] Dec, [facility] [address] [id number] [address] [place] [address], [place] [address] Dec, [facility] [address] [id number] [address] [place] [address], [place] [address] Dec, [facility] [address] [id number] [address] [place] [address], [place] [address] Dec, [facility] [address] [id number] [address] [place] [address], [place] [address] Dec, [facility] [address] [id number] [address] [place] [address], [place] [address] Dec, [facility] [address] [id number] [address] [place] [address], [place] [address] 05 Dec, 2012 [facility] [address] [id number] [address] [place] [address], [place] [address] Dec, [facility] [address] [id number] [address] [place] [address], [place] [address] November, [facility] [address] [id number] [address] [place] [address], [place] [address] November, [facility] [address] [id number] [address] [place] [address], [place] [address] November, [facility] [address] [id number] [address] [place] [address], [place] [address] November, [facility] [address] [id number] [address] [place] [address], [place] [address] November, [facility] [address] [id number] [address] [place] [address], [place] [address] Oct, [facility] [address] [id number] [address] [place] [address], [place] [address] Oct, [facility] [address] [id number] [address] [place] [address], [place] [address] Oct, [facility] [address] [id number] [address] [place] [address], [place] [address] Oct, [facility] [address] [id number] [address] [place] [address], [place] [address] Oct, [facility] [address] [id number] [address] [place] [address], [place] [address] Sep, [facility] [address] [id number] [address] [place] [address], [place] [address] Sep, [facility] [address] [id number] [address] [place] [address], [place] [address] Sep, [facility] [address] [id number] [address] [place] [address], [place] [address] Sep, [facility] [address] [id number] [address] [place] [address], [place] [address] Aug, [facility] [address] [address] [id number] [address] [place] [address], [place] [address] Aug, [facility] [address] [id number] [address] [place] [address], [place] [address] Aug, [facility] [address] [id number] [address] [place], [place] [address] [address] Aug, [facility] [address] [id number] [address] [place] [address], [place] [address] Jun, [facility] [address] [id number] [address] [place] [address], [place] [address] Jun, [facility] [address] [id number] [address] [place] [address], [place] [address] Jun, [facility] [address] [id number] [address] [place] [address], [place] [address] Jun, [facility] [address] [id number] [address] [place] [address], [place] [address] Jun, [facility] [address] [id number] [address] [place] [address], [place] [address] Jun, [facility] [address] [id number] [address] [place] [address], [place] [address] Jun, [facility] [address] [id number] [address] [place] [address], [place] [address] Jun, [facility] [address] [id number] [address] [place] [address], [place] [address] Jun, [facility] [address] [id number] [address] [place] [address], [place] [address] Jun, [facility] [address] [id number] [address] [place] [address], [place] [address] May, [facility] [address] [id number] [address] [place] [address], [place] [address] May, [facility] [address] [id number] [address] [place] [address], [place] [address] May, [facility] [address] [id number] [address] [place] [address], [place] [address] May, [facility] [address] [id number] [address] [place] [address], [place] [address] May, [facility] [address] [id number] [address] [place] [address], [place] [address] 16 May, 2012 [facility] [address] [id number] [address] [place] [address], [place] [address] 16 May, 2012 [facility] [address] [id number] [address] [place] [address], [place] [address] 14 May, 2012 [facility] [address] [id number] [address] [place] [address], [place] [address] 14 May, 2012 [facility] [address] [id number] [address] [place] [address], [place] [address] 30 Apr, 2012 [facility] [address] [id number] [address] [place] [address], [place] [address] 30 Apr, 2012 [facility] [address] [id number] [address] [place] [address], [place] [address] 17 Apr, 2012 [facility] [address] [id number] [address] [place] [address], [place] [address] 17 Apr, 2012 [facility] [address] [id number] [address] [place] [address], [place] [address] 09 Apr, 2012 [facility] [address] [id number] [address] [place] [address], [place] [address] 18 Mar, 2012 [facility] [address] [id number] [address] [place] [address], [place] [address] 17 Sep2011 [facility] [address] [id number] [address] [place] [address], [place] [address] 07 Mar, 2012 [facility] [address] [id number] [address] [place] [address], [place] [address] 27 Feb, 2012 [facility] [address] [id number] [address] [place] [address], [place] [address] 16 Feb, 2012 [facility] [address] [id number] [address] [place] [address], [place] [address] 15 Feb, 2012 [facility] [address] [id number] [address] [place] [address], [place] [address] Feb, [facility] [address] [id number] [address] [place] [address], [place] [address] Jan, [facility] [address] [id number] [address] [place] [address], [place] [address] Jan, [facility] [address] [id number] [address] [place] [address], [place] [address] Jan, [facility] [address] [id number] [address] [place] [address], [place] [address] Jan, [facility] [address] [id number] [address] [place] [address], [place] [address] Jan, [facility] [address] [id number] [address] [place] [address], [place] [address] Jan, [facility] [address] [id number] [address] [place] [address], [place] [address] Dec, [facility] [address] [id number] [address] [place] [address], [place] [address] Dec, [facility] [address] [id number] [address] [place] [address], [place] [address] Dec, [facility] [address] [id number] [address] [place] [address], [place] [address] November, [facility] [address] [id number] [address] [place] [address], [place] [address] November, [facility] [address] [id number] [address] [place] [address], [place] [address] November, [facility] [address] [id number] [address] [place] [address], [place] [address] November, [facility] [address] [id number] [address] [place] [address], [place] [address] Oct, [facility] [address] [id number] [address] [place] [address], [place] [address] Oct, [facility] [address] [id number] [address] [place] [address], [place] [address] Oct, [facility] [address] [id number] [address] [place] [address], [place] [address] Sep, [facility] [address] [id number] [address] [place] [address], [place] [address] Sep, [facility] [address] [id number] [address] [place] [address], [place] [address] Aug, [facility] [address] [id number] [address] [place] [address], [place] [address] Aug, [facility] [address] [id number] [address] [place] [address], [place] [address] Aug, [facility] [address] [id number] [address] [place] [address], [place] [address] Aug, [facility] [address] [id number] [address] [place] [address], [place] [address] Jul, [facility] [address] [id number] [address] [place] [address], [place] [address] Jul, [facility] [address] [id number] [address] [place] [address], [place] [address] Jul, [facility] [address] [id number] [address] [place] [address], [place] [address] Jul, [facility] [address] [id number] [address] [place] [address], [place] [address] Jul, [facility] [address] [id number] [address] [place] [address], [place] [address] Jul, [facility] [address] [id number] [address] [place] [address], [place] [address] Jul, [facility] [address] [id number] [address] [place] [address], [place] [address] Jul, [facility] [address] [id number] [address] [place] [address], [place] [address] Jun, [facility] [address] [id number] [address] [place] [address], [place] [address] Jun, [facility] [address] [id number] [address] [place] [address], [place] [address] Jun, [facility] [address] [id number] [address] [place] [address], [place] [address] 08 Jun, 2011 [facility] [address] [id number] [address] [place] [address], [place] [address] Jun, [facility] [address] [id number] [address] [place] [address], [place] [address] May, [facility] [address] [id number] [address] [place] [address], [place] [address] May, [facility] [address] [id number] [address] [place] [address], [place] [address] May, [facility] [address] [id number] [address] [place] [address], [place] [address] May, [facility] [address] [id number] [address] [place] [address], [place] [address] May, [facility] [address] [id number] [address] [place] [address], [place] [address] May, [facility] [address] [id number] [address] [place] [address], [place] [address] Apr, [facility] [address] [id number] [address] [place] [address], [place] [address] Apr, [facility] [address] [id number] [address] [place] [address], [place] [address] Apr, [facility] [address] [id number] [address] [place] [address], [place] [address] Feb, [facility] [address] [id number] [address] [place] [address], [place] [address] Feb, [facility] [address] [id number] [address] [place] [address], [place] [address] Oct, [facility] [address] [id number] [address] [place] [address] Jul, [facility] [address] [id number] [address] [place] [address] Jul, [facility] [address] [id number] [address] [place] [address] Jun, [facility] [address] [id number] [address] [place] [address] May, [facility] [address] [id number] [address] [place] [address] May, [facility] [address] [id number] [address] [place] [address] May, [facility] [address] [id number] [address] [place] [address] Apr, [facility] [address] [id number] [address] [place] [address] Jan, [facility] [address] [id number] [address] [place] [id number] November, IMMUNIZATIONS No Known Immunizations SOCIAL HISTORY Never Assessed REASON FOR VISIT [facility] PLAN OF CARE VITAL SIGNS MEDICATIONS Unknown Medications RESULTS Name Result Date Reference Range PAP SMEAR 2012-06-10 [facility] REPORT FOOTNOTE PAP RESULT normal PROCEDURES No Known procedures INSTRUCTIONS MEDICATIONS ADMINISTERED [...]
--- OUTSIDE RECORDS SUMMARY | 2020-01-31 09:51 | XMS REPORT ---
Author Author Ivet Knott Doctor Organization [facility] Address Unknown Phone Unavailable Care Team Providers Care Teletype Installer Name Role Phone Migration, Doctor Unavailable Unavailable PROBLEMS Type Condition ICD9-CM Code HIZ04-DG Code Onset Dates Condition S tatus SNOMED Code Problem Depression F32.9 Active 00002683 Problem Hypothyroidism E03.9 Active 66281 008 Problem GERD (gastroesophageal reflux disease) K21.9 Active 812459718 Problem Schizo affective schizophrenia F25.0 Active 312637267 Problem Osteoarthritis M19.90 Active 68828 5006 Problem Low back pain, unspecified b ack pain laterality, unspecified chronicity, with sciatica presence unspecified M54.5 Active 499653734 Problem Iron deficiency anemia, unspecified iron deficiency an emia type D50.9 Active 81467940 Problem Essential hypertension I10 Active 27211453 Problem Secondary hyperparathyroidism, not elsewhere classified E21.1 Active 48591744 Problem Anxiety F41.9 Active 34955328 Problem Bilateral carotid artery disease I77.9 Active 844449765 Problem Stage 3 chronic kidney disease N18.3 Active 799631771 Problem Fibromyalgia M79.7 Active 4696051 05 Problem Vitamin D deficiency E55.9 Active 90567973 ALLERGIES No Information ENCOUNTERS Encounter Location Date Diagnosis [facility] [address] [id number] [address] [place] [address] Sep, Acute non-recurrent maxillar y sinusitis J01.00 [facility] [address] [id number] [address] [place] [address] 18 Aug, 2018 Acute non-recurrent pansinus itis J01.40 [facility] [address] [place] [address] Jul, Osteoarthritis M19.90 [facility] [address] [id number] [address] [place] [address] Jul, [facility] [address] [address] 18 Apr, 2018 Osteoarthritis M19.90 [place] [address] [address] 08 Apr, 2018 Fibromyalgia M79.7 ; Essenti al hypertension I10 ; Encounter for immunization Z23 ; Stage 3 chronic kidney disease N18.3 and Depression F32.9 [place] [address] [address] 12 Dec, 2017 Fibromyalgia M79.7 ; Osteoar thritis M19.90 and Encounter for medication management Z79.899 [facility] [address] [address] November, Nausea and vomiting, intract ability of vomiting not specified, unspecified vomiting type R11.2 and Dizziness R42 [place] [address] [address] November, Fibromyalgia M79.7 [place] [address] [address] 11 Nov, 2017 Medicare annual wellness vis it, initial Z00.00 ; Anxiety F41.9 ; Depression F32.9 ; Stage 3 chronic kidney disease N18.3 ; Fibromyalgia M79.7 ; Essential hypertension I10 ; Secondary hyperparathyroidism, not elsewhere classified E21.1 ; Osteoarthritis M19.90 ; Hypothyroidism E03.9 and Encounter for immunization Z23 [place] [address] [id number] [address] [place] [address] Oct, [place] [address] [address] Oct, Sebaceous cyst L72.3 [place] [address] [address] Sep, Low back pain, unspecified b ack pain laterality, unspecified chronicity, with sciatica presence unspecified M54.5 and Secondary hyperparathyroidism, not elsewhere classified E21.1 [place] [address] [address] 13 Sep, 2017 Fibromyalgia M79.7 [facility] [address] [address] 05 Sep, 2017 Fibromyalgia M79.7 ; Plantar fasciitis, bilateral M72.2 ; Essential hypertension I10 ; Depression F32.9 and Epidermoid cyst L72.0 [place] [address] [address] Jul, [place] [address] [address] Jul, Fibromyalgia M79.7 ; Iron de ficiency anemia, unspecified iron deficiency anemia type D50.9 and Acute nasopharyngitis J00 [facility] [address] [address] Jun, Sore throat J02.9 and Acute serous otitis media of left ear, recurrence not specified H65.02 [place] [address] [address] Jun, Hypothyroidism E03.9 [place] [address] [address] Jun, [place] [address] [address] Jun, Hypothyroidism E03.9 ; Essen tial hypertension I10 and Osteoarthritis M19.90 [facility] [address] [address] May, [place] [address] [address] May, [place] [address] [address] Feb, [place] [id number] [place] [address] Feb, Leonela-menopausal N95.1 and To bacco use Z72.0 [facility] [address] [place] [address] Jan, [place] [address] [address] Jan, Osteoarthritis M19.90 ; Bila teral carotid artery disease I77.9 ; Raynauds syndrome I73.00 ; Essential hypertension I10 ; Allergic rhinitis J30.9 ; Stage 3 chronic kidney disease N18.3 ; Fibromyalgia M79.7 ; Hypothyroidism E03.9 ; GERD (gastroesophageal reflux disease) K21.9 and Vitamin D deficiency E55.9 [place] [address] [address] Dec, Raynauds syndrome I73.00 ; P lantar fascial fibromatosis M72.2 ; Osteoarthritis M19.90 and Fibromyalgia M79.7 [place] [address] [address] Dec, [place] [address] [id number] [address] [place] [address] Dec, [place] [address] [address] Oct, Function kidney decreased N2 8.9 [facility] [id number] [place] [id number] Oct, Dental examination Z01.20 [place] [address] [place] [address] Oct, Essential hypertension I10 a nd Function kidney decreased N28.9 [facility] [id number] [place] [id number] Oct, Dental examination Z01.20 [facility] [address] [id number] [address] [place] [address] Oct, [facility] [address] [id number] [address] [place] [address] Sep, Other specified disorders in volving the immune mechanism D89.89 and Schizo affective schizophrenia F25.0 [facility] [address] [address] Sep, Schizo affective schizophren ia F25.0 [facility] [id number] [place] [address] 16 Sep, 2016 Eustachian tube dysfunction, bilateral H69.83 [facility] [address] [address] 15 Sep, 2016 [facility] [address] [address] 14 Sep, 2016 [facility] [address] [address] 14 Sep, 2016 [place] [address] [address] Sep, Eustachian tube dysfunction, bilateral H69.83 [facility] [address] [address] 09 Sep, 2016 Allergic rhinitis J30.9 ; Es sential hypertension I10 ; Hypothyroidism E03.9 and Schizo affective schizophrenia F25.0 [facility] [address] [address] Jul, Eustachian tube dysfunction, bilateral H69.83 and Visit for TB skin test Z11.1 [facility] [address] [address] Jul, Subacute pansinusitis J01.40 [facility] [address] [address] Jun, Schizo affective schizophren ia F25.0 ; Depression F32.9 ; Allergic rhinitis J30.9 ; Raynauds syndrome I73.00 ; Essential hypertension I10 ; Slow transit constipation K59.01 ; GERD (gastroesophageal reflux disease) K21.9 ; Hypothyroidism E03.9 ; Nicotine addiction F17.200 ; Other viral agents as the cause of diseases classified elsewhere B97.89 ; Acute upper respiratory infection, unspecified J06.9 and Osteoarthritis M19.90 [place] [address] [address] Jun, Allergic rhinitis J30.9 and GERD (gastroesophageal reflux disease) K21.9 [place] [address] [address] May, [place] [address] [address] Mar, Schizo affective schizophren ia F25.0 [place] [address] [address] Mar, Schizo affective schizophren ia F25.0 [place] [address] [address] Mar, Schizo affective schizophren ia F25.0 [place] [address] [id number] [place] [address] Mar, Acute non-recurrent maxillar y sinusitis J01.00 [place] [address] [address] Feb, Schizo affective schizophren ia F25.0 [place] [address] [address] Feb, Contact dermatitis and eczem a L25.9 [place] [address] [id number] [place] [address] Jan, [place] [address] [address] Jan, Schizo affective schizophren ia F25.0 ; Slow transit constipation K59.01 ; Essential hypertension I10 ; GERD (gastroesophageal reflux disease) K21.9 ; Hypothyroidism E03.9 ; Osteoarthritis M19.90 ; Low back pain, unspecified back pain laterality, unspecified chronicity, with sciatica presence unspecified M54.5 and Bilateral carotid artery disease I77.9 [place] [address] [address] Oct, [place] [address] [address] Sep, Hypothyroid E03.9 [place] [address] [address] Sep, Schizo affective schizophren ia F25.0 ; Depression F32.9 ; Anxiety F41.9 ; Allergic rhinitis J30.9 ; Raynauds syndrome I73.00 ; Insomnia G47.00 ; Essential hypertension I10 ; GERD (gastroesophageal reflux disease) K21.9 ; Hypothyroidism E03.9 and Vitamin D deficiency E55.9 [place] [address] [address] Sep, [place] [address] [address] Sep, [place] [address] [address] Aug, Allergic rhinitis J30.9 ; De pression F32.9 ; Anxiety F41.9 ; Raynauds syndrome I73.00 ; Insomnia G47.00 and GERD (gastroesophageal reflux disease) K21.9 [place] [address] [address] Aug, MONICA (secretory otitis media) H65.90 and Raynauds syndrome I73.00 [facility] [address] [address] Jul, Acute otitis externa of both ears, unspecified type H60.503 [place] [address] [address] Jun, [place] [address] [address] Jun, Essential hypertension I10 ; Allergic rhinitis J30.9 ; Hypothyroidism E03.9 and Osteoarthritis M19.90 [facility] [address] [address] Jun, Routine adult health mainten ance Z00.00 ; Hypothyroidism E03.9 ; Essential hypertension I10 ; Insomnia G47.00 ; Nicotine addiction F17.200 ; Raynauds syndrome I73.00 ; GERD (gastroesophageal reflux disease) K21.9 ; Allergic rhinitis J30.9 ; Anxiety F41.9 ; Depression F32.9 and Schizo affective schizophrenia F25.0 [facility] [address] [address] May, Upper respiratory tract infe ction, unspecified type J06.9 [place] [address] [id number] [address] [place] [address] Mar, [facility] [id number] [place], [facility] [id number] Mar, [facility] [address] [id number] [address] [place] [address] Mar, [facility] [address] [address] Mar, [facility] [address] [id number] [address] [place] [address] Feb, Jaw pain 784.92 and Environm ental and seasonal allergies 477.8 [facility] [address] [id number] [address] [place] [address] Feb, [facility] [address] [id number] [address] [place] [address] Oct, [facility] [address] [address] Oct, [facility] [id number] [place] [address] Oct, [facility] [address] [id number] [address] [place] [address], [place] [address] 13 Oct, 2014 [facility] [address] [id number] [address] [place] [address], [place] [address] Sep, [facility] [address] [id number] [address] [place] [address], [place] [address] Sep, [facility] [address] [id number] [address] [place] [address], [place] [address] Jul, [facility] [address] [id number] [address] [place] [address], [place] [address] Jul, [facility] [address] [id number] [address] [place] [address], [place] [address] Jul, [facility] [address] [id number] [address] [place] [address], [place] [address] Jul, [facility] [address] [id number] [address] [place] [address], [place] [address] Jul, [facility] [address] [id number] [address] [place] [address], [place] [address] Jul, [facility] [address] [id number] [address] [place] [address], [place] [address] Jul, [facility] [address] [id number] [address] [place] [address], [place] [address] Jun, [facility] [address] [id number] [address] [place] [address], [place] [address] 31 Jun, 2014 [facility] [address] [id number] [address] [place] [address], [place] [address] 22 Jun, 2014 [facility] [address] [id number] [address] [place] [address], [place] [address] 18 Jun, 2014 [facility] [address] [id number] [address] [place] [address], [place] [address] 17 Jun, 2014 [facility] [address] [id number] [address] [place] [address], [place] [address] 17 Jun, 2014 [facility] [address] [id number] [address] [place] [address], [place] [address] Jun, [facility] [address] [id number] [address] [place] [address], [place] [address] Jun, [facility] [address] [id number] [address] [place] [address], [place] [address] Apr, [facility] [address] [id number] [address] [place] [address], [place] [address] Apr, [facility] [address] [id number] [address] [place] [address], [place] [address] Mar, [facility] [address] [id number] [address] [place] [address], [place] [address] Mar, [facility] [address] [id number] [address] [place] [address], [place] [address] Mar, [facility] [address] [id number] [address] [place] [address], [place] [address] Mar, [facility] [address] [id number] [address] [place] [address], [place] [address] Jan, [facility] [address] [id number] [address] [place] [address], [place] [address] Jan, [facility] [address] [id number] [address] [place] [address], [place] [address] Oct, [facility] [address] [id number] [address] [place] [address], [place] [address] Oct, [facility] [address] [id number] [address] [place] [address], [place] [address] Sep, [facility] [address] [id number] [address] [place] [address], [place] [address] Sep, [facility] [address] [id number] [address] [place] [address], [place] [address] Sep, [facility] [address] [id number] [address] [place] [address] Sep, [facility] [address] [id number] [address] [place] [address], [place] [address] Sep, [facility] [address] [id number] [address] [place] [address] Sep, [facility] [address] [id number] [address] [place] [address], [place] [address] Aug, [facility] [address] [id number] [address] [place] [address] Aug, [facility] [address] [id number] [address] [place] [address], [place] [address] Jul, [facility] [address] [id number] [address] [place] [address] Jul, [facility] [address] [id number] [address] [place] [address] Jul, [facility] [address] [id number] [address] [place] [address] Jul, [facility] [address] [id number] [address] [place] [address] Jun, [facility] [address] [id number] [address] [place] [address] Jun, [facility] [address] [id number] [address] [place] [address] May, [facility] [address] [id number] [address] [place] [address] May, [facility] [address] [id number] [address] [place] [address] Apr, [facility] [address] [id number] [address] [place] [address] Apr, [facility] [address] [id number] [address] [place] [address] Apr, [facility] [address] [id number] [address] [place] [address], [place] [address] Apr, [facility] [address] [id number] [address] [place] [address], [place] [address] Apr, [facility] [address] [id number] [address] [place] [address], [place] [address] Apr, [facility] [address] [id number] [address] [place] [address], [place] [address] 24 Mar, 2013 [facility] [address] [id number] [address] [place] [address], [place] [address] 12 Mar, 2013 [facility] [address] [id number] [address] [place] [address], [place] [address] 09 Mar, 2013 [facility] [address] [id number] [address] [place] [address], [place] [address] 05 Mar, 2013 [facility] [address] [id number] [address] [place] [address], [place] [address] 05 Mar, 2013 [facility] [address] [id number] [address] [place] [address], [place] [address] 30 Feb, 2013 [facility] [address] [id number] [address] [place] [address], [place] [address] Feb, [facility] [address] [id number] [address] [place] [address], [place] [address] Feb, [facility] [address] [id number] [address] [place] [address], [place] [address] Feb, [facility] [address] [id number] [address] [place] [address], [place] [address] Jan, [facility] [address] [id number] [address] [place] [address], [place] [address] Jan, [facility] [address] [id number] [address] [place] [address], [place] [address] 16 Jan, 2013 [facility] [address] [id number] [address] [place] [address] [address] Jan, [facility] [address] [id number] [address] [place] [address], [place] [address] Jan, [facility] [address] [id number] [address] [place] [address], [place] [address] Jan, [facility] [address] [id number] [address] [place] [address], [place] [address] Dec, [facility] [address] [id number] [address] [place] [address], [place] [address] Dec, [facility] [address] [id number] [address] [place] [address], [place] [address] Dec, [facility] [address] [id number] [address] [place] [address], [place] [address] Dec, [facility] [address] [id number] [address] [place] [address], [place] [address] Dec, [facility] [address] [id number] [address] [place] [address], [place] [address] Dec, [facility] [address] [id number] [address] [place] [address], [place] [address] Dec, [facility] [address] [id number] [address] [place] [address], [place] [address] Dec, [facility] [address] [id number] [address] [place] [address], [place] [address] Dec, [facility] [address] [id number] [address] [place] [address], [place] [address] Dec, [facility] [address] [id number] [address] [place] [address], [place] [address] November, [facility] [address] [id number] [address] [place] [address], [place] [address] November, [facility] [address] [id number] [address] [place] [address], [place] [address] November, [facility] [address] [id number] [address] [place] [address], [place] [address] November, [facility] [address] [id number] [address] [place] [address], [place] [address] November, [facility] [address] [id number] [address] [place] [address], [place] [address] Oct, [facility] [address] [id number] [address] [place] [address], [place] [address] Oct, [facility] [address] [id number] [address] [place] [address], [place] [address] Oct, [facility] [address] [id number] [address] [place] [address], [place] [address] Oct, [facility] [address] [id number] [address] [place] [address], [place] [address] Oct, [facility] [address] [id number] [address] [place] [address], [place] [address] Sep, [facility] [address] [id number] [address] [place] [address], [place] [address] Sep, [facility] [address] [id number] [address] [place] [address], [place] [address] Sep, [facility] [address] [id number] [address] [place] [address], [place] [address] Sep, [facility] [address] [id number] [address] [place] [address], [place] [address] Aug, [facility] [address] [id number] [address] [place] [address], [place] [address] Aug, [facility] [address] [id number] [address] [place] [address], [place] [address] Aug, [facility] [address] [id number] [address] [place] [address], [place] [address] 15 Aug, 2012 [facility] [address] [id number] [address] [place] [address], [place] [address] Jun, [facility] [address] [id number] [address] [place] [address], [place] [address] Jun, [facility] [address] [id number] [address] [place] [address], [place] [address] Jun, [facility] [address] [id number] [address] [place] [address], [place] [address] Jun, [facility] [address] [id number] [address] [place] [address], [place] [address] Jun, [facility] [address] [id number] [address] [place] [address], [place] [address] Jun, [facility] [address] [id number] [address] [place] [address], [place] [address] Jun, [facility] [facility] [address] [id number] [address] [place] [address], [place] [address] Jun, [facility] [address] [id number] [address] [place] [address], [place] [address] Jun, [facility] [address] [id number] [address] [place] [address], [place] [address] Jun, [facility] [address] [id number] [address] [place] [address], [place] [address] May, [facility] [address] [id number] [address] [place] [address], [place] [address] May, [facility] [address] [id number] [address] [place] [address], [place] [address] 27 May, 2012 [facility] [address] [id number] [address] [place] [address], [place] [address] May, [facility] [address] [id number] [address] [place] [address], [place] [address] May, [facility] [address] [id number] [address] [place] [address], [place] [address] 16 May, 2012 [facility] [address] [id number] [address] [place] [address] 16 May, 2012 [facility] [address] [id number] [address] [place] [address], [place] [address] 14 May, 2012 [facility] [address] [id number] [address] [place] [address], [place] [address] 14 May, 2012 [facility] [address] [id number] [address] [place] [address], [place] [address] 30 Apr, 2012 [facility] [address] [id number] [address] [place] [address], [place] [address] 30 Apr, 2012 [facility] [address] [id number] [address] [place] [address], [place] [address] Apr, [facility] [address] [id number] [address] [place] [address], [place] [address] 17 Apr, 2012 [facility] [address] [id number] [address] [place] [address], [place] [address] Apr, [facility] [address] [id number] [address] [place] [address], [place] [address] 18 Mar, 2012 [facility] [address] [id number] [address] [place] [address], [place] [address] 17 Mar, 2012 [facility] [address] [id number] [address] [place] [address], [place] [address] 07 Mar, 2012 [facility] [address] [id number] [address] [place] [address], [place] [address] 27 Feb, 2012 [facility] [address] [id number] [address] [place] [address], [place] [address] 16 Feb, 2012 [facility] [address] [id number] [address] [place] [address], [place] [address] 15 Feb, 2012 [facility] [address] [id number] [address] [place] [address], [place] [address] 14 Feb, 2012 [facility] [address] [id number] [address] [place] [address], [place] [address] Jan, [facility] [address] [id number] [address] [place] [address], [place] [address] Jan, [facility] [address] [id number] [address] [place] [address], [place] [address] Jan, [facility] [address] [id number] [address] [place] [address], [place] [address] Jan, [facility] [address] [id number] [address] [place] [address], [place] [address] Jan, [facility] [address] [id number] [address] [place] [address], [place] [address] Jan, [facility] [address] [id number] [address] [place] [address], [place] [address] Dec, [facility] [address] [id number] [address] [place] [address], [place] [address] Dec, [facility] [address] [id number] [address] [place] [address], [place] [address] Dec, [facility] [address] [id number] [address] [place] [address], [place] [address] November, [facility] [address] [id number] [address] [place] [address], [place] [address] November, [facility] [address] [id number] [address] [place] [address], [place] [address] November, [facility] [address] [id number] [address] [place] [address], [place] [address] November, [facility] [address] [id number] [address] [place] [address], [place] [address] Oct, [facility] [address] [id number] [address] [place] [address], [place] [address] Oct, [facility] [address] [id number] [address] [place] [address], [place] [address] Oct, [facility] [address] [id number] [address] [place] [address], [place] [address] Sep, [facility] [address] [id number] [address] [place] [address], [place] [address] Sep, [facility] [address] [id number] [address] [place] [address], [place] [address] Aug, [facility] [address] [id number] [address] [place] [address], [place] [address] Aug, [facility] [address] [id number] [address] [place] [address], [place] [address] Aug, [facility] [address] [id number] [address] [place] [address], [place] [address] Aug, [facility] [address] [id number] [address] [place] [address], [place] [address] Jul, [facility] [address] [id number] [address] [place] [address], [place] [address] Jul, [facility] [address] [id number] [address] [place] [address], [place] [address] Jul, [facility] [address] [id number] [address] [place] [address], [place] [address] Jul, [facility] [address] [id number] [address] [place] [address], [place] [address] Jul, [facility] [address] [id number] [address] [place] [address], [place] [address] Jul, [facility] [address] [id number] [address] [place] [address], [place] [address] Jul, [facility] [address] [id number] [address] [place] [address], [place] [address] Jul, [facility] [address] [id number] [address] [place] [address], [place] [address] Jun, [facility] [address] [id number] [address] [place] [address], [place] [address] Jun, [facility] [address] [id number] [address] [place] [address], [place] [address] 15 Jun, 2011 [facility] [address] [id number] [address] [place] [address], [place] [address] 08 Jun, 2011 [facility] [address] [id number] [address] [place] [address], [place] [address] Jun, [facility] [address] [id number] [address] [place] [address], [place] [address] May, [facility] [address] [id number] [address] [place] [address], [place] [address] May, [facility] [address] [id number] [address] [place] [address], [place] [address] May, [facility] [address] [id number] [address] [place] [address], [place] [address] May, [facility] [address] [id number] [address] [place] [address], [place] [address] May, [facility] [address] [id number] [address] [place] [address], [place] [address] May, [facility] [address] [id number] [address] [place] [address], [place] [address] Apr, [facility] [address] [id number] [address] [place] [address], [place] [address] Apr, [facility] [address] [id number] [address] [place] [address], [place] [address] Apr, [facility] [address] [id number] [address] [place] [address], [place] [address] Feb, [facility] [address] [id number] [address] [place] [address], [place] [address] Feb, [facility] [address] [id number] [address] [place] [address], [place] [address] Oct, [facility] [address] [id number] [address] [place] [address], [place] [address] Jul, [facility] [address] [id number] [address] [place] [address] Jul, [facility] [address] [id number] [address] [place] [address] Jun, [facility] [address] [id number] [address] [place] [address] May, [facility] [address] [id number] [address] [place] [address] May, [facility] [address] [facility] [place] [id number] [address] [place] [address] May, [facility] [address] [facility] [place] [id number] [address] [place] [address] Apr, [facility] [address] [facility] [place] [id number] [address] [place] [address] Jan, [facility] [address] [facility] [place] [id number] [address] [place] [address] November, IMMUNIZATIONS No Known Immunizations SOCIAL HISTORY Never Assessed REASON FOR VISIT EMR-[facility] PLAN OF CARE VITAL SIGNS MEDICATIONS No [...]
--- OUTSIDE RECORDS SUMMARY | 2020-01-31 09:51 | XMS REPORT ---
Author Author Ivet GALINDO Organization [facility] Address [address] [place] [address] Care Team Providers Care Marketing Database Consultant Name Role Phone LINDY GALINDO Unavailable PROBLEMS Type Condition ICD9-CM Code IMX00-UX Code Onset Dates Condition S tatus SNOMED Code Problem Schizo affective schizophrenia F25.0 Active 744986687 Problem Low back pain, unspecified b ack pain laterality, unspecified chronicity, with sciatica presence unspecified M54.5 Active 480774035 Problem Osteoarthritis M19.90 Active 07450 5006 Problem Secondary hyperparathyroidism, not elsewhere classified E21.1 Active 63143832 Problem Iron deficiency anemia, unspecified iron deficiency an emia type D50.9 Active 95861810 Problem Stage 3 chronic kidney disease N18.3 Active 487133979 Problem Bilateral carotid artery disease I77.9 Active 594098089 Problem Vitamin D deficiency E55.9 Active 52261797 Problem Fibromyalgia M79.7 Active 9921011 05 Problem GERD (gastroesophageal reflux disease) K21.9 Active 168429463 Problem Hypothyroidism E03.9 Active 33966 008 Problem Anxiety F41.9 Active 29744002 Problem Depression F32.9 Active 91613133 Problem Essential hypertension I10 Active 71575740 ALLERGIES Substance Reaction Event Type Date Status Silvadene Unknown Drug Allergy November, Active Penicillin V Potassium Unknown Drug Allergy November, Activ e Levaquin muscle/joint ache Drug Allergy November, Active Feldene Unknown Drug Allergy November, Active Cholecalciferol (vitamin D3) 50,000 Unit Capsule threw /meds labs out of whack Non Drug Allergy November, Active ENCOUNTERS Encounter Location Date Diagnosis [facility] [address] [facility] [id number] [address], [place] [address] Dec, Fibromyalgia M79.7 ; Osteoar thritis M19.90 and Encounter for medication management Z79.899 [facility] [address] [id number] [address] [place] [address] November, Nausea and vomiting, intract ability of vomiting not specified, unspecified vomiting type R11.2 and Dizziness R42 [facility] [address] [id number] [address] [place] [address] November, Fibromyalgia M79.7 [facility] [address] [address] November, Medicare annual wellness vis it, initial Z00.00 ; Anxiety F41.9 ; Depression F32.9 ; Stage 3 chronic kidney disease N18.3 ; Fibromyalgia M79.7 ; Essential hypertension I10 ; Secondary hyperparathyroidism, not elsewhere classified E21.1 ; Osteoarthritis M19.90 ; Hypothyroidism E03.9 and Encounter for immunization Z23 [facility] [address] [address] Oct, [facility] [address] [address] Oct, Sebaceous cyst L72.3 [facility] [address] [address] Sep, Low back pain, unspecified b ack pain laterality, unspecified chronicity, with sciatica presence unspecified M54.5 and Secondary hyperparathyroidism, not elsewhere classified E21.1 [facility] [address] [address] Sep, Fibromyalgia M79.7 [place] [address] [address] Sep, Fibromyalgia M79.7 ; Plantar fasciitis, bilateral M72.2 ; Essential hypertension I10 ; Depression F32.9 and Epidermoid cyst L72.0 [facility] [address] [address] Jul, [facility] [address] [address] Jul, Fibromyalgia M79.7 ; Iron de ficiency anemia, unspecified iron deficiency anemia type D50.9 and Acute nasopharyngitis J00 [facility] [address] [address] Jun, Sore throat J02.9 and Acute serous otitis media of left ear, recurrence not specified H65.02 [facility] [address] [address] Jun, Hypothyroidism E03.9 [facility] [address] [address] Jun, [place] [address] [address] Jun, Hypothyroidism E03.9 ; Essen tial hypertension I10 and Osteoarthritis M19.90 [facility] [address] [address] May, [facility] [address] [address] May, [place] [address] [address] Feb, [place] [address] [address] Feb, Leonela-menopausal N95.1 and To bacco use Z72.0 [place] [address] [address] Jan, [place] [address] [address] Jan, Osteoarthritis M19.90 ; Bila teral carotid artery disease I77.9 ; Raynauds syndrome I73.00 ; Essential hypertension I10 ; Allergic rhinitis J30.9 ; Stage 3 chronic kidney disease N18.3 ; Fibromyalgia M79.7 ; Hypothyroidism E03.9 ; GERD (gastroesophageal reflux disease) K21.9 and Vitamin D deficiency E55.9 [facility] [address] [id number] [address] [place] [address] Dec, Raynauds syndrome I73.00 ; P lantar fascial fibromatosis M72.2 ; Osteoarthritis M19.90 and Fibromyalgia M79.7 [facility] [address] [id number] [address] [place] [address] Dec, [facility] [address] [id number] [address] [place] [address] Dec, [facility] [address] [id number] [address] [place] [address] Oct, Function kidney decreased N2 8.9 [facility] [address] [id number] [address] [place] [id number] Oct, Dental examination Z01.20 [facility] [address] [facility] [id number] [address] [place] [address] 18 Oct, 2016 Essential hypertension I10 a nd Function kidney decreased N28.9 [facility] [address] [id number] [address] [place] [id number] Oct, Dental examination Z01.20 [facility] [address] [facility] [id number] [address] [place] [address] Oct, [facility] [address] [facility] [id number] [address] [place] [address] Sep, Other specified disorders in volving the immune mechanism D89.89 and Schizo affective schizophrenia F25.0 [facility] [address] [id number] [address] [place] [address] Sep, Schizo affective schizophren ia F25.0 [facility] [address] [facility] [id number] [address] [place] [address] Sep, Eustachian tube dysfunction, bilateral H69.83 [facility] [address] [facility] [id number] [address] [place] [address] Sep, [facility] [address] [address] 14 Sep, 2016 [facility] [address] [address] 14 Sep, 2016 [place] [address] [address] 13 Sep, 2016 Eustachian tube dysfunction, bilateral H69.83 [place] [address] [address] Sep, Allergic rhinitis J30.9 ; Es sential hypertension I10 ; Hypothyroidism E03.9 and Schizo affective schizophrenia F25.[address] [address] Jul, Eustachian tube dysfunction, bilateral H69.83 and Visit for TB skin test Z11.1 [facility] [address] [address] Jul, Subacute pansinusitis J01.[address] [address] Jun, Schizo affective schizophren ia F25.0 ; Depression F32.9 ; Allergic rhinitis J30.9 ; Raynauds syndrome I73.00 ; Essential hypertension I10 ; Slow transit constipation K59.01 ; GERD (gastroesophageal reflux disease) K21.9 ; Hypothyroidism E03.9 ; Nicotine addiction F17.200 ; Other viral agents as the cause of diseases classified elsewhere B97.89 ; Acute upper respiratory infection, unspecified J06.9 and Osteoarthritis M19.90 [place] [address] [address] Jun, Allergic rhinitis J30.9 and GERD (gastroesophageal reflux disease) K21.9 [place] [address] [address] May, [address] [address] Mar, Schizo affective schizophren ia F25.0 [facility] [address] [facility] [id number] [address] [place] [address] 22 Mar, 2016 Schizo affective schizophren ia F25.0 [facility] [address] [facility] [id number] [address] [place] [address] 15 Mar, 2016 Schizo affective schizophren ia F25.0 [facility] [address] [facility] [id number] [address] [place] [address] 06 Mar, 2016 Acute non-recurrent maxillar y sinusitis J01.00 [place] [address] [facility] [id number] [address] [place] [address] Feb, Schizo affective schizophren ia F25.0 [place] [address] [facility] [id number] [address] [place] [address] Feb, Contact dermatitis and eczem a L25.9 [place] [address] [place] [id number] [address] [place] [address] Jan, [place] [address] [place] [address] [id number] [address] [place] [address] Jan, Schizo affective schizophren ia F25.0 ; Slow transit constipation K59.01 ; Essential hypertension I10 ; GERD (gastroesophageal reflux disease) K21.9 ; Hypothyroidism E03.9 ; Osteoarthritis M19.90 ; Low back pain, unspecified back pain laterality, unspecified chronicity, with sciatica presence unspecified M54.5 and Bilateral carotid artery disease I77.9 [facility] [address] [facility] [id number] [address] [place] [address] Oct, [place] [address] [facility] [id number] [address] [place] [address] Sep, Hypothyroid E03.9 [facility] [address] [facility] [id number] [address] [place] [address] Sep, Schizo affective schizophren ia F25.0 ; Depression F32.9 ; Anxiety F41.9 ; Allergic rhinitis J30.9 ; Raynauds syndrome I73.00 ; Insomnia G47.00 ; Essential hypertension I10 ; GERD (gastroesophageal reflux disease) K21.9 ; Hypothyroidism E03.9 and Vitamin D deficiency E55.9 [facility] [address] [address] Sep, [facility] [address] [address] Sep, [place] [address] [address] Aug, Allergic rhinitis J30.9 ; De pression F32.9 ; Anxiety F41.9 ; Raynauds syndrome I73.00 ; Insomnia G47.00 and GERD (gastroesophageal reflux disease) K21.9 [place] [address] [address] Aug, MONICA (secretory otitis media) H65.90 and Raynauds syndrome I73.00 [facility] [address] [address] Jul, Acute otitis externa of both ears, unspecified type H60.[address] [address] Jun, [place] [address] [address] Jun, Essential hypertension I10 ; Allergic rhinitis J30.9 ; Hypothyroidism E03.9 and Osteoarthritis M19.90 [place] [address] [address] Jun, Routine adult health mainten ance Z00.00 ; Hypothyroidism E03.9 ; Essential hypertension I10 ; Insomnia G47.00 ; Nicotine addiction F17.200 ; Raynauds syndrome I73.00 ; GERD (gastroesophageal reflux disease) K21.9 ; Allergic rhinitis J30.9 ; Anxiety F41.9 ; Depression F32.9 and Schizo affective schizophrenia F25.0 [place] [address] [place] [id number] [place] [address] May, Upper respiratory tract infe ction, unspecified type J06.9 [facility] [address] [id number] [address] [place] [address] Mar, [facility] [address] [id number] [place] [id number] Mar, [facility] [address] [id number] [address] [place] [address] Mar, [facility] [address] [id number] [address] [place] [address] Mar, [facility] [address] [facility] [id number] [address] [place] [address] Feb, Jaw pain 784.92 and Environm ental and seasonal allergies 477.8 [facility] [address] [facility] [id number] [address] [place] [address] Feb, [facility] [address] [facility] [id number] [address] [place] [address] Oct, [facility] [address] [facility] [id number] [address] [place] [address] Oct, [facility] [address] [facility] [id number] [address] [place] [address] Oct, [facility] [address] [facility] [id number] [address] [place] [address] Oct, [facility] [address] [facility] [id number] [address] [place] [address] Sep, [facility] [address] [id number] [address] [place] [address] Sep, [facility] [address] [facility] [id number] [address] [place] [address] Jul, [facility] [address] [facility] [id number] [address] [place] [address] Jul, [facility] [place] [facility] [address] [id number] [address] [place] [address], [place] [address] Jul, [facility] [address] [id number] [address] [place] [address], [place] [address] Jul, [facility] [address] [id number] [address] [place] [address], [place] [address] Jul, [facility] [address] [id number] [address] [place] [address], [place] [address] Jul, [facility] [address] [id number] [address] [place] [address], [place] [address] Jul, [facility] [address] [id number] [address] [place] [address], [place] [address] Jun, [facility] [address] [id number] [address] [place] [address], [place] [address] Jun, [facility] [address] [id number] [address] [place] [address], [place] [address] Jun, [facility] [address] [id number] [address] [place] [address], [place] [address] 18 Jun, 2014 [facility] [address] [id number] [address] [place] [address], [place] [address] Jun, [facility] [address] [id number] [address] [place] [address], [place] [address] 17 Jun, 2014 [facility] [address] [id number] [address] [place] [address], [place] [address] 16 Jun, 2014 [facility] [address] [id number] [address] [place] [address], [place] [address] 16 Jun, 2014 [facility] [place] [facility] [address] [id number] [address] [place] [address], [place] [address] 30 Apr, 2014 [facility] [address] [id number] [address] [place] [address], [place] [address] 30 Apr, 2014 [facility] [address] [id number] [address] [place] [address], [place] [address] 17 Mar, 2014 [facility] [address] [id number] [facility] [address] 17 Mar, 2014 [facility] [place] [facility] [address] [id number] [address] [place] [address], [place] [address] Mar, [facility] [address] [id number] [address] [place] [address], [place] [address] Mar, [facility] [place] [facility] [address] [id number] [address] [place] [address], [place] [address] Jan, [facility] [address] [id number] [address] [place] [address], [place] [address] Jan, [facility] [address] [id number] [address] [place] [address], [place] [address] Oct, [facility] [address] [id number] [address] [place] [address], [place] [address] Oct, [facility] [place] [facility] [address] [id number] [address] [place] [address], [place] [address] Sep, [facility] [place] [facility] [address] [id number] [address] [place] [address], [place] [address] Sep, [facility] [place] [facility] [address] [id number] [address] [place] [address], [place] [address] Sep, [facility] [place] [facility] [address] [id number] [address] [place] [address], [place] [address] Sep, [facility] [place] [facility] [address] [id number] [address] [place] [address], [place] [address] Sep, [facility] [place] [facility] [address] [id number] [address] [place] [address], [place] [address] Sep, [facility] [place] [facility] [address] [id number] [address] [place] [address], [place] [address] Aug, [facility] [place] [facility] [address] [id number] [address] [place] [address], [place] [address] Aug, [facility] [place] [facility] [address] [id number] [address] [place] [address], [place] [address] Jul, [facility] [address] [id number] [address] [place] [address], [place] [address] Jul, [facility] [address] [id number] [address] [place] [address], [place] [address] Jul, [facility] [address] [id number] [address] [place] [address], [place] [address] Jul, [facility] [address] [id number] [address] [place] [address], [place] [address] Jun, [facility] [address] [id number] [address] [place] [address], [place] [address] Jun, [facility] [address] [id number] [address] [place] [address], [place] [address] May, [facility] [address] [id number] [address] [place] [address], [place] [address] May, [facility] [address] [id number] [address] [place] [address], [place] [address] Apr, [facility] [address] [id number] [address] [place] [address], [place] [address] Apr, [facility] [address] [id number] [address] [place] [address], [place] [address] Apr, [facility] [address] [id number] [address] [place] [address], [place] [address] Apr, [facility] [address] [id number] [address] [place] [address], [place] [address] Apr, [facility] [address] [id number] [address] [place] [address], [place] [address] Apr, [facility] [address] [id number] [address] [place] [address], [place] [address] 24 Mar, 2013 [facility] [address] [id number] [address] [place] [address], [place] [address] Mar, [facility] [address] [id number] [address] [place] [address], [place] [address] 09 Mar, 2013 [facility] [address] [id number] [address] [place] [address], [place] [address] 05 Mar, 2013 [facility] [address] [id number] [address] [place] [address], [place] [address] 05 Mar, 2013 [facility] [address] [id number] [address] [place] [address], [place] [address] Feb, [facility] [address] [id number] [address] [place] [address], [place] [address] Feb, [facility] [address] [id number] [address] [place] [address], [place] [address] Feb, [facility] [address] [id number] [address] [place] [address], [place] [address] Feb, [facility] [address] [id number] [address] [place] [address], [place] [address] Jan, [facility] [address] [id number] [address] [place] [address], [place] [address] Jan, [facility] [address] [id number] [address] [place] [address], [place] [address] Jan, [facility] [address] [id number] [address] [place] [address], [place] [address] Jan, [facility] [address] [id number] [address] [place] [address], [place] [address] Jan, [facility] [address] [id number] [address] [place] [address], [place] [address] Jan, [facility] [address] [id number] [address] [place] [address], [place] [address] Dec, [facility] [place] [facility] [address] [id number] [address] [place] [address], [place] [address] Dec, [facility] [place] [facility] [address] [id number] [address] [place] [address] 19 Dec, 2012 [facility] [address] [id number] [address] [place] [address], [place] [address] 14 Dec, 2012 [facility] [address] [id number] [address] [place] [address], [place] [id number] 13 Dec, 2012 [facility] [address] [id number] [address] [place] [address], [place] [id number] 12 Dec, 2012 [facility] [address] [id number] [address] [place] [address], [place] [id number] 11 Dec, 2012 [facility] [address] [id number] [address] [place] [address], [place] [id number] 07 Dec, 2012 [facility] [address] [id number] [address] [place] [address], [place] [id number] 05 Dec, 2012 [facility] [address] [id number] [address] [place] [address], [place] [id number] Dec, [facility] [address] [id number] [address] [place] [address], [place] [id number] November, [facility] [address] [id number] [address] [place] [address], [place] [address] November, [facility] [address] [id number] [address] [place] [address], [place] [address] November, [facility] [address] [id number] [address] [place] [address], [place] [address] November, [facility] [address] [id number] [address] [place] [address], [place] [address] November, [facility] [address] [id number] [address] [place] [address], [place] [id number] 30 Oct, 2012 [facility] [address] [id number] [address] [place] [address], [place] [address] Oct, [facility] [address] [id number] [address] [place] [address], [place] [id number] Oct, [facility] [address] [id number] [address] [place] [address], [place] [id number] 09 Oct, 2012 [facility] [address] [id number] [address] [place] [address], [place] [id number] 02 Oct, 2012 [facility] [address] [id number] [address] [place] [address], [place] [address] Sep, [facility] [address] [id number] [address] [place] [address], [place] [id number] 19 Sep, 2012 [facility] [address] [id number] [address] [place] [address], [place] [id number] 18 Sep, 2012 [facility] [address] [id number] [address] [place] [address], [place] [id number] 05 Sep, 2012 [facility] [facility] [address] [id number] [address] [place] [address], [place] [address] 26 Aug, 2012 [facility] [address] [id number] [address] [place] [address], [place] [address] 18 Aug, 2012 [facility] [address] [id number] [address] [place] [address], [place] [address] Aug, [facility] [address] [id number] [address] [place] [address], [place] [address] 15 Aug, 2012 [facility] [address] [id number] [address] [place] [address], [place] [address] Jun, [facility] [address] [id number] [address] [place] [address], [place] [address] Jun, [facility] [address] [id number] [address] [place] [address], [place] [address] Jun, [facility] [address] [id number] [address] [place] [address], [place] [address] Jun, [facility] [address] [id number] [address] [place] [address], [place] [address] 06 Jun, 2012 [facility] [address] [id number] [address] [place] [address], [place] [address] 06 Jun, 2012 [facility] [address] [id number] [address] [place] [address], [place] [address] Jun, [facility] [address] [id number] [address] [place] [address], [place] [address] Jun, [facility] [address] [id number] [address] [place] [address], [place] [address] Jun, [facility] [address] [id number] [address] [place] [address], [place] [address] Jun, [facility] [address] [id number] [address] [place] [address], [place] [address] 28 May, 2012 [facility] [address] [id number] [address] [place] [address], [place] [address] 27 May, 2012 [facility] [address] [id number] [address] [place] [address], [place] [address] May, [facility] [address] [id number] [address] [place] [address], [place] [address] May, [facility] [address] [id number] [address] [place] [address], [place] [address] 26 May, 2012 [facility] [address] [id number] [address] [place] [address], [place] [address] 16 May, 2012 [facility] [address] [id number] [address] [place] [address], [place] [address] 16 May, 2012 [facility] [address] [id number] [address] [place] [address], [place] [address] 14 May, 2012 [facility] [address] [id number] [address] [place] [address], [place] [address] 14 May, 2012 [facility] [address] [id number] [address] [place] [address], [place] [address] 30 Apr, 2012 [facility] [address] [id number] [address] [place] [address], [place] [address] 30 Apr, 2012 [facility] [address] [id number] [address] [place] [address], [place] [address] 17 Apr, 2012 [facility] [address] [id number] [address] [place] [address], [place] [address] Apr, [facility] [address] [id number] [address] [place] [address], [place] [address] 09 Apr, 2012 [facility] [address] [id number] [address] [place] [address], [place] [address] 18 Mar, 2012 [facility] [address] [id number] [address] [place] [address], [place] [address] 17 Mar, 2012 [facility] [address] [id number] [address] [place] [address], [place] [address] 07 Mar, 2012 [facility] [address] [id number] [address] [place] [address], [place] [address] 27 Feb, 2012 [facility] [address] [id number] [address] [place] [address], [place] [address] 16 Feb, 2012 [facility] [address] [id number] [address] [place] [address], [place] [address] 15 Feb, 2012 [facility] [address] [id number] [address] [place] [address], [place] [address] 14 Feb, 2012 [facility] [address] [id number] [address] [place] [address], [place] [address] Jan, [facility] [address] [id number] [address] [place] [address], [place] [address] Jan, [facility] [address] [id number] [address] [place] [address], [place] [address] 24 Jan, 2012 [facility] [address] [id number] [address] [place] [address], [place] [address] Jan, [facility] [address] [id number] [address] [place] [address], [place] [address] 17 Jan, 2012 [facility] [address] [id number] [address] [place] [address], [place] [address] Jan, [facility] [address] [id number] [address] [place] [address], [place] [address] Dec, [facility] [address] [id number] [address] [place] [address], [place] [address] Dec, [facility] [address] [id number] [address] [place] [address], [place] [address] Dec, [facility] [address] [id number] [address] [place] [address], [place] [address] November, [facility] [address] [id number] [address] [place] [address], [place] [address] November, [facility] [address] [id number] [address] [place] [address], [place] [address] November, [facility] [address] [id number] [address] [place] [address], [place] [address] November, [facility] [address] [id number] [address] [place] [address], [place] [address] Oct, [facility] [address] [id number] [address] [place] [address], [place] [address] Oct, [facility] [address] [id number] [address] [place] [address], [place] [address] Oct, [facility] [address] [id number] [address] [place] [address], [place] [address] Sep, [facility] [address] [id number] [address] [place] [address], [place] [address] Sep, [facility] [address] [id number] [address] [place] [address], [place] [address] Aug, [facility] [address] [id number] [address] [place] [address], [place] [address] Aug, [facility] [address] [id number] [address] [place] [address], [place] [address] Aug, [facility] [address] [id number] [address] [place] [address], [place] [address] 02 Aug, 2011 [facility] [address] [id number] [address] [place] [address], [place] [address] Jul, [facility] [address] [id number] [address] [place] [address], [place] [address] Jul, [facility] [address] [id number] [address] [place] [address], [place] [address] Jul, [facility] [address] [id number] [address] [place] [address], [place] [address] Jul, [facility] [address] [id number] [address] [place] [address], [place] [address] Jul, [facility] [address] [id number] [address] [place] [address], [place] [address] Jul, [facility] [address] [id number] [address] [place] [address], [place] [address] Jul, [facility] [address] [id number] [address] [place] [address], [place] [address] Jul, [facility] [address] [id number] [address] [place] [address], [place] [address] Jun, [facility] [address] [id number] [address] [place] [address], [place] [address] Jun, [facility] [address] [id number] [address] [place] [address], [place] [address] 15 Jun, 2011 [facility] [address] [id number] [address] [place] [address], [place] [address] 08 Jun, 2011 [facility] [address] [id number] [address] [place] [address], [place] [address] Jun, [facility] [address] [id number] [address] [place] [address], [place] [address] May, [facility] [address] [id number] [address] [place] [address], [place] [address] May, [facility] [address] [id number] [address] [place] [address], [place] [address] May, [facility] [address] [id number] [address] [place] [address], [place] [address] May, [facility] [address] [id number] [address] [place] [address], [place] [address] May, [facility] [address] [id number] [address] [place] [address], [place] [address] May, [facility] [address] [id number] [address] [place] [address], [place] [address] Apr, [facility] [address] [id number] [address] [place] [address], [place] [address] Apr, [facility] [address] [id number] [address] [place] [address], [place] [address] Apr, [facility] [address] [id number] [address] [place] [address], [place] [address] Feb, [facility] [address] [id number] [address] [place] [address], [place] [address] Feb, [facility] [address] [id number] [address] [place] [address], [place] [address] Oct, [facility] [address] [id number] [address] [place] [address], [place] [address] Jul, [facility] [address] [id number] [address] [place] [address], [place] [address] Jul, [facility] [address] [id number] [address] [place] [address], [place] [address] Jun, [facility] [address] [id number] [address] [place] [address], [place] [address] May, [facility] [address] [id number] [address] [place] [address], [place] [address] May, [facility] [address] [id number] [address] [address] May, [facility] [address] [facility] [id number] [address] [place] [address] Apr, [facility] [address] [facility] [id number] [address] [place] [address] Jan, [facility] [address] [facility] [id number] [address] [place] [address] November, IMMUNIZATIONS No Known Immunizations SOCIAL HISTORY Never Assessed REASON FOR VISIT dizziness/vomitting Pt c/o dizziness and vomitting which started this morning SHUKRI Najera PLAN OF CARE Activity Details Follow Up prn Reason: VITAL SIGNS Height 72 in 2017-12-11 Weight 227.6 lbs 2017-12-11 Temperature 98.1 degrees Fahrenheit 2017-12-11 Heart Rate 78 bpm 2017-12-11 Respiratory Rate 20 2017-12-11 BMI 30.86 kg/m2 2017-12-11 Blood pressure systolic 142 mmHg 2017-12-11 Blood pressure diastolic 98 mmHg 2017-12-11 MEDICATIONS Medication Instructions Dosage Frequency Start Date End Date Duration S tatus Baclofen 10 TAKE ONE TABLET BY MOUTH THREE TIMES A DAY WIT H FOOD OR MILK 30 Active Gabapentin 600 MG Orally Once a day 1 capsule before bedtime 24h Sep, 30 day(s) Active Iron Supplement by oral route Once a day 2 tablets 24h Active Montelukast Sodium 10 MG Orally at bedtime 1 tablet Active Tramadol HCl 50 MG Orally every 6 hrs 1 tablet as needed 6h Active BuPROPion HCl 300 mg Orally Once a day 1 tablet 24h Mar, Active Sertraline HCl 100 MG Orally Once a day 1 tablet 24h Active Lisinopril 5 MG Orally Once a day 1 tablet 24h Active Gabapentin 300 Orally Once a day 1 capsule before bedtime 24h 30 Not-Taking ProAir HFA 90 mcg/actuation inhale 2 puf fs by Inhalation route every 4 hours as needed PRN shortness of breath/cough Jun, Not-Taking Loratadine 10 MG Orally Once a day 1 tablet 24h Active Zofran 4 MG Orally every 6 hrs as directed 6h November, Active Levothyroxine Sodium 100 MCG Orally Once a day 1 tablet on an empty stomach in the morning 24h 30 days Active Ranitidine HCl 150 TAKE ONE TABLET BY M OUTH TWICE A DAY NEEDED FOR HEARTBURN FOR 14 DAYS 7 Active Melatonin 5 mg 0.5 Tablet by Oral route 1 time per day at night November, Active Vitamin D 2000 UNIT Orally twice a day 1 tablet 12h Active Lamotrigine 150 MG Orally at bedtime 1 tablet Active RESULTS No Results PROCEDURES Procedure Date Ordered Result Body Site [facility] VISIT ESTABLISHED PATIENT December 11, 2017 INSTRUCTIONS MEDICATIONS ADMINISTERED No Known Medications MEDICAL [...]
--- OUTSIDE RECORDS SUMMARY | 2020-01-31 09:51 | XMS REPORT ---
Author Author Ivet WILLSON Organization [facility] Address [address] [place] [address] Care Team Providers Care Manager Of Digital Name Role Phone MADELYN WILLSON Unavailable PROBLEMS Type Condition ICD9-CM Code EEB36-MK Code Onset Dates Condition S tatus SNOMED Code Problem Schizo affective schizophrenia F25.0 Active 801705950 Problem Low back pain, unspecified b ack pain laterality, unspecified chronicity, with sciatica presence unspecified M54.5 Active 360723564 Problem Osteoarthritis M19.90 Active 15717 5006 Problem Secondary hyperparathyroidism, not elsewhere classified E21.1 Active 74589526 Problem Iron deficiency anemia, unspecified iron deficiency an emia type D50.9 Active 84039543 Problem Stage 3 chronic kidney disease N18.3 Active 334378883 Problem Bilateral carotid artery disease I77.9 Active 035577858 Problem Vitamin D deficiency E55.9 Active 08991674 Problem Fibromyalgia M79.7 Active 4678989 05 Problem GERD (gastroesophageal reflux disease) K21.9 Active 794647818 Problem Hypothyroidism E03.9 Active 14694 008 Problem Anxiety F41.9 Active 61505471 Problem Depression F32.9 Active 16308599 Problem Essential hypertension I10 Active 92847258 ALLERGIES Substance Reaction Event Type Date Status Silvadene Unknown Drug Allergy Dec, Active Penicillin V Potassium Unknown Drug Allergy Dec, Activ e Levaquin muscle/joint ache Drug Allergy Dec, Active Feldene Unknown Drug Allergy Dec, Active Cholecalciferol (vitamin D3) 50,000 Unit Capsule threw /meds labs out of whack Non Drug Allergy Dec, Active ENCOUNTERS Encounter Location Date Diagnosis [facility] [address] [facility] [id number] [address] [place] [address] Dec, Fibromyalgia M79.7 ; Osteoar thritis M19.90 and Encounter for medication management Z79.899 [facility] [address] [address] November, Nausea and vomiting, intract ability of vomiting not specified, unspecified vomiting type R11.2 and Dizziness R42 [facility] [address] [address] November, Fibromyalgia M79.7 [facility] [address] [address] November, Medicare annual wellness vis it, initial Z00.00 ; Anxiety F41.9 ; Depression F32.9 ; Stage 3 chronic kidney disease N18.3 ; Fibromyalgia M79.7 ; Essential hypertension I10 ; Secondary hyperparathyroidism, not elsewhere classified E21.1 ; Osteoarthritis M19.90 ; Hypothyroidism E03.9 and Encounter for immunization Z23 [facility] [address] [address] Oct, [place] [address] [address] Oct, Sebaceous cyst L72.3 [facility] [address] [address] Sep, Low back pain, unspecified b ack pain laterality, unspecified chronicity, with sciatica presence unspecified M54.5 and Secondary hyperparathyroidism, not elsewhere classified E21.1 [facility] [address] [address] Sep, Fibromyalgia M79.7 [place] [address] [address] Sep, Fibromyalgia M79.7 ; Plantar fasciitis, bilateral M72.2 ; Essential hypertension I10 ; Depression F32.9 and Epidermoid cyst L72.0 [facility] [address] [address] Jul, [facility] [address] [address] Jul, Fibromyalgia M79.7 ; Iron de ficiency anemia, unspecified iron deficiency anemia type D50.9 and Acute nasopharyngitis J00 [facility] [address] [address] Jun, Sore throat J02.9 and Acute serous otitis media of left ear, recurrence not specified H65.02 [place] [address] [address] Jun, Hypothyroidism E03.9 [place] [address] [address] Jun, [place] [address] [address] Jun, Hypothyroidism E03.9 ; Essen tial hypertension I10 and Osteoarthritis M19.90 [place] [address] [address] May, [facility] [address] [address] May, [place] [address] [address] Feb, [place] [address] [address] Feb, Leonela-menopausal N95.1 and To bacco use Z72.0 [place] [address] [address] Jan, [place] [address] [address] Jan, Osteoarthritis M19.90 ; Bila teral carotid artery disease I77.9 ; Raynauds syndrome I73.00 ; Essential hypertension I10 ; Allergic rhinitis J30.9 ; Stage 3 chronic kidney disease N18.3 ; Fibromyalgia M79.7 ; Hypothyroidism E03.9 ; GERD (gastroesophageal reflux disease) K21.9 and Vitamin D deficiency E55.9 [place] [address] [id number] [address] [place] [address] Dec, Raynauds syndrome I73.00 ; P lantar fascial fibromatosis M72.2 ; Osteoarthritis M19.90 and Fibromyalgia M79.7 [facility] [address] [id number] [address] [place] [address] Dec, [facility] [address] [facility] [id number] [address] [place] [address] Dec, [facility] [address] [id number] [address] [place] [address] Oct, Function kidney decreased N2 8.9 [facility] [address] [id number] [address] [place] [id number] Oct, Dental examination Z01.20 [facility] [address] [facility] [id number] [address] [place] [address] 18 Oct, 2016 Essential hypertension I10 a nd Function kidney decreased N28.9 [facility] [address] [id number] [address] [place] [address] [id number] Oct, Dental examination Z01.20 [facility] [address] [facility] [id number] [address] [place] [address] Oct, [facility] [address] [facility] [id number] [address] [place] [address] Sep, Other specified disorders in volving the immune mechanism D89.89 and Schizo affective schizophrenia F25.0 [facility] [address] [facility] [id number] [address] [place] [address] Sep, Schizo affective schizophren ia F25.0 [facility] [address] [facility] [id number] [address] [place] [address] Sep, Eustachian tube dysfunction, bilateral H69.83 [facility] [address] [facility] [id number] [address] [place] [address] Sep, [facility] [address] [address] 14 Sep, 2016 [facility] [address] [address] 14 Sep, 2016 [place] [address] [address] 13 Sep, 2016 Eustachian tube dysfunction, bilateral H69.83 [place] [address] [address] 09 Sep, 2016 Allergic rhinitis J30.9 ; Es sential hypertension I10 ; Hypothyroidism E03.9 and Schizo affective schizophrenia F25.0 [place] [address] [address] Jul, Eustachian tube dysfunction, bilateral H69.83 and Visit for TB skin test Z11.1 [facility] [address] [address] Jul, Subacute pansinusitis J01.40 [place] [address] [address] Jun, Schizo affective schizophren ia F25.0 ; Depression F32.9 ; Allergic rhinitis J30.9 ; Raynauds syndrome I73.00 ; Essential hypertension I10 ; Slow transit constipation K59.01 ; GERD (gastroesophageal reflux disease) K21.9 ; Hypothyroidism E03.9 ; Nicotine addiction F17.200 ; Other viral agents as the cause of diseases classified elsewhere B97.89 ; Acute upper respiratory infection, unspecified J06.9 and Osteoarthritis M19.90 [place] [address] [address] Jun, Allergic rhinitis J30.9 and GERD (gastroesophageal reflux disease) K21.9 [place] [address] [address] May, [place] [address] [address] Mar, Schizo affective schizophren ia F25.0 [place] [address] [place] [address] Mar, Schizo affective schizophren ia F25.0 [place] [address] [place] [id number] [address] [place] [address] 15 Mar, 2016 Schizo affective schizophren ia F25.0 [place] [address] [place] [id number] [address] [place] [address] Mar, Acute non-recurrent maxillar y sinusitis J01.00 [place] [address] [place] [id number] [address] [place] [address] Feb, Schizo affective schizophren ia F25.0 [place] [address] [place] [id number] [address] [place] [address] Feb, Contact dermatitis and eczem a L25.9 [place] [address] [address] Jan, [place] [address] [address] Jan, Schizo affective schizophren ia F25.0 ; Slow transit constipation K59.01 ; Essential hypertension I10 ; GERD (gastroesophageal reflux disease) K21.9 ; Hypothyroidism E03.9 ; Osteoarthritis M19.90 ; Low back pain, unspecified back pain laterality, unspecified chronicity, with sciatica presence unspecified M54.5 and Bilateral carotid artery disease I77.9 [place] [address] [place] [address] Oct, [place] [address] [place] [id number] [address] [place] [address] Sep, Hypothyroid E03.9 [place] [address] [place] [id number] [address] [place] [address] Sep, Schizo affective schizophren ia F25.0 ; Depression F32.9 ; Anxiety F41.9 ; Allergic rhinitis J30.9 ; Raynauds syndrome I73.00 ; Insomnia G47.00 ; Essential hypertension I10 ; GERD (gastroesophageal reflux disease) K21.9 ; Hypothyroidism E03.9 and Vitamin D deficiency E55.9 [place] [address] [address] Sep, [facility] [address] [address] Sep, [place] [address] [address] Aug, Allergic rhinitis J30.9 ; De pression F32.9 ; Anxiety F41.9 ; Raynauds syndrome I73.00 ; Insomnia G47.00 and GERD (gastroesophageal reflux disease) K21.9 [place] [address] [address] Aug, MONICA (secretory otitis media) H65.90 and Raynauds syndrome I73.00 [facility] [address] [address] Jul, Acute otitis externa of both ears, unspecified type H60.503 [place] [address] [address] Jun, [place] [address] [address] Jun, Essential hypertension I10 ; Allergic rhinitis J30.9 ; Hypothyroidism E03.9 and Osteoarthritis M19.90 [place] [address] [address] Jun, Routine adult health mainten ance Z00.00 ; Hypothyroidism E03.9 ; Essential hypertension I10 ; Insomnia G47.00 ; Nicotine addiction F17.200 ; Raynauds syndrome I73.00 ; GERD (gastroesophageal reflux disease) K21.9 ; Allergic rhinitis J30.9 ; Anxiety F41.9 ; Depression F32.9 and Schizo affective schizophrenia F25.0 [place] [address] [place] [address] May, Upper respiratory tract infe ction, unspecified type J06.9 [facility] [address] [id number] [address] [place] [address] Mar, [facility] [address] [id number] [id number] Mar, [facility] [address] [id number] [address] [place] [address] Mar, [facility] [address] [id number] [address] [place] [address] Mar, [facility] [address] [id number] [address] [place] [address] Feb, Jaw pain 784.92 and Environm ental and seasonal allergies 477.8 [facility] [address] [id number] [address] [place] [address] Feb, [facility] [address] [id number] [address] [place] [address] Oct, [facility] [address] [id number] [address] [place] [address] Oct, [facility] [address] [id number] [address] [place] [address] Oct, [facility] [address] [id number] [address] [place] [address] Oct, [facility] [address] [id number] [address] [place] [address] Sep, [facility] [address] [id number] [address] [place] [address] Sep, [facility] [address] [id number] [address] [place] [address] Jul, [facility] [address] [id number] [address] [place] [address] Jul, [facility] [address] [id number] [address] [place] [address], [place] [address] Jul, [facility] [address] [id number] [address] [place] [address], [place] [address] Jul, [facility] [address] [id number] [address] [place] [address], [place] [address] Jul, [facility] [address] [id number] [address] [place] [address], [place] [address] Jul, [facility] [address] [id number] [address] [place] [address], [place] [address] Jul, [facility] [address] [id number] [address] [place] [address], [place] [address] Jun, [facility] [address] [id number] [address] [place] [address], [place] [address] Jun, [facility] [address] [id number] [address] [place] [address], [place] [address] Jun, [facility] [address] [id number] [address] [place] [address], [place] [address] 18 Jun, 2014 [facility] [address] [id number] [address] [place] [address], [place] [address] Jun, [facility] [address] [id number] [address] [place] [address], [place] [address] 17 Jun, 2014 [facility] [address] [id number] [address] [place] [address], [place] [address] 16 Jun, 2014 [facility] [address] [id number] [address] [place] [address], [place] [address] 16 Jun, 2014 [facility] [address] [id number] [address] [place] [address], [place] [address] 30 Apr, 2014 [facility] [address] [id number] [address] [place] [address], [place] [address] Apr, [facility] [address] [id number] [address] [place] [address], [place] [address] Mar, [facility] [address] [id number] [facility] [place] [address] 17 Mar, 2014 [facility] [address] [id number] [address] [place] [address], [place] [address] Mar, [facility] [address] [id number] [address] [place] [address], [place] [address] Mar, [facility] [address] [id number] [address] [place] [address], [place] [address] Jan, [facility] [address] [id number] [address] [place] [address], [place] [address] Jan, [facility] [address] [id number] [address] [place] [address], [place] [address] Oct, [facility] [address] [id number] [address] [place] [address], [place] [address] Oct, [facility] [address] [id number] [address] [place] [address], [place] [address] Sep, [facility] [address] [id number] [address] [place] [address], [place] [address] Sep, [facility] [address] [id number] [address] [place] [address], [place] [address] Sep, [facility] [address] [id number] [address] [place] [address], [place] [address] Sep, [facility] [address] [id number] [address] [place] [address], [place] [address] Sep, [facility] [address] [id number] [address] [place] [address], [place] [address] Sep, [facility] [address] [id number] [address] [place] [address], [place] [address] Aug, [facility] [address] [id number] [address] [place] [address], [place] [address] Aug, [facility] [address] [id number] [address] [place] [address], [place] [address] Jul, [facility] [address] [id number] [address] [place] [address], [place] [address] Jul, [facility] [address] [id number] [address] [place] [address], [place] [address] Jul, [facility] [address] [id number] [address] [place] [address], [place] [address] Jul, [facility] [address] [id number] [address] [place] [address], [place] [address] Jun, [facility] [address] [id number] [address] [place] [address], [place] [address] Jun, [facility] [address] [id number] [address] [place] [address], [place] [address] May, [facility] [address] [id number] [address] [place] [address], [place] [address] May, [facility] [address] [id number] [address] [place] [address], [place] [address] Apr, [facility] [address] [id number] [address] [place] [address], [place] [address] Apr, [facility] [address] [id number] [address] [place] [address], [place] [address] Apr, [facility] [address] [id number] [address] [place] [address], [place] [address] Apr, [facility] [address] [id number] [address] [place] [address], [place] [address] Apr, [facility] [address] [id number] [address] [place] [address], [place] [address] Apr, [facility] [address] [id number] [address] [place] [address], [place] [address] 24 Mar, 2013 [facility] [address] [id number] [address] [place] [address], [place] [address] 12 Mar, 2013 [facility] [address] [id number] [address] [place] [address], [place] [address] 09 Mar, 2013 [facility] [address] [id number] [address] [place] [address], [place] [address] 05 Mar, 2013 [facility] [address] [id number] [address] [place] [address], [place] [address] 05 Mar, 2013 [facility] [address] [id number] [address] [place] [address], [place] [address] Feb, [facility] [address] [id number] [address] [place] [address], [place] [address] Feb, [facility] [address] [id number] [address] [place] [address], [place] [address] Feb, [facility] [address] [id number] [address] [place] [address], [place] [address] Feb, [facility] [address] [id number] [address] [place] [address], [place] [address] Jan, [facility] [address] [id number] [address] [place] [address], [place] [address] Jan, [facility] [address] [id number] [address] [place] [address], [place] [address] Jan, [facility] [address] [id number] [address] [place] [address], [place] [address] Jan, [facility] [address] [id number] [address] [place] [address], [place] [address] Jan, [facility] [address] [id number] [address] [place] [address], [place] [address] Jan, [facility] [address] [id number] [address] [place] [address], [place] [address] Dec, [facility] [address] [id number] [address] [place] [address], [place] [address] Dec, [facility] [address] [id number] [address] [place] [address], [place] [address] 19 Dec, 2012 [facility] [address] [id number] [address] [place] [address], [place] [address] 14 Dec, 2012 [facility] [address] [id number] [address] [place] [address], [place] [address] Dec, [facility] [address] [id number] [address] [place] [address], [place] [address] 12 Dec, 2012 [facility] [address] [id number] [address] [place] [address], [place] [address] 11 Dec, 2012 [facility] [address] [id number] [address] [place] [address], [place] [address] 07 Dec, 2012 [facility] [address] [id number] [address] [place] [address], [place] [address] 05 Dec, 2012 [facility] [address] [id number] [address] [place] [address], [place] [address] Dec, [facility] [address] [id number] [address] [place] [address], [place] [address] November, [facility] [address] [id number] [address] [place] [address], [place] [address] November, [facility] [address] [id number] [address] [place] [address], [place] [address] November, [facility] [address] [id number] [address] [place] [address], [place] [address] November, [facility] [address] [id number] [address] [place] [address], [place] [address] November, [facility] [address] [id number] [address] [place] [address], [place] [address] Oct, [facility] [address] [id number] [address] [place] [address], [place] [address] Oct, [facility] [address] [id number] [address] [place] [address], [place] [address] Oct, [facility] [address] [id number] [address] [place] [address], [place] [address] 09 Oct, 2012 [facility] [address] [id number] [address] [place] [address], [place] [address] Oct, [facility] [address] [id number] [address] [place] [address], [place] [address] Sep, [facility] [address] [id number] [address] [place] [address], [place] [address] Sep, [facility] [address] [id number] [address] [place] [address], [place] [address] 18 Sep, 2012 [facility] [address] [id number] [address] [place] [address], [place] [address] 05 Sep, 2012 [facility] [address] [id number] [address] [place] [address], [place] [address] 26 Aug, 2012 [facility] [address] [id number] [address] [place] [address], [place] [address] 18 Aug, 2012 [facility] [address] [id number] [address] [place] [address], [place] [address] 18 Aug, 2012 [facility] [address] [id number] [address] [place] [address], [place] [address] 15 Aug, 2012 [facility] [address] [id number] [address] [place] [address], [place] [address] Jun, [facility] [address] [id number] [address] [place] [address], [place] [address] Jun, [facility] [address] [id number] [address] [place] [address], [place] [address] Jun, [facility] [address] [id number] [address] [place] [address], [place] [address] Jun, [facility] [address] [id number] [address] [place] [address], [place] [address] Jun, [facility] [address] [id number] [address] [place] [address] [address] Jun, [facility] [address] [id number] [address] [place] [address], [place] [address] Jun, [facility] [address] [address] [id number] [address] [place] [address], [place] [address] Jun, [facility] [address] [id number] [address] [place] [address], [place] [address] Jun, [facility] [address] [id number] [address] [place] [address], [place] [address] Jun, [facility] [address] [id number] [address] [place] [address], [place] [address] May, [facility] [address] [id number] [address] [place] [address], [place] [address] May, [facility] [address] [id number] [address] [place] [address], [place] [address] May, [facility] [address] [id number] [address] [place] [address], [place] [address] May, [facility] [address] [id number] [address] [place] [address], [place] [address] 26 May, 2012 [facility] [address] [id number] [address] [place] [address], [place] [address] 16 May, 2012 [facility] [address] [id number] [address] [place] [address], [place] [address] 16 May, 2012 [facility] [address] [id number] [address] [place] [address] 14 May, 2012 [facility] [address] [id number] [address] [place] [address], [place] [address] 14 May, 2012 [facility] [address] [id number] [address] [place] [address], [place] [address] 30 Apr, 2012 [facility] [address] [id number] [address] [place] [address], [place] [address] 30 Apr, 2012 [facility] [address] [id number] [address] [place] [address], [place] [address] 17 Apr, 2012 [facility] [address] [id number] [address] [place] [address], [place] [address] 17 Apr, 2012 [facility] [address] [id number] [address] [place] [address], [place] [address] 09 Apr, 2012 [facility] [address] [id number] [address] [place] [address], [place] [address] 18 Mar, 2012 [facility] [address] [id number] [address] [place] [address], [place] [address] 17 Mar, 2012 [facility] [address] [id number] [address] [place] [address], [place] [address] 07 Mar, 2012 [facility] [address] [id number] [address] [place] [address], [place] [address] 27 Feb, 2012 [facility] [address] [id number] [address] [place] [address], [place] [address] 16 Feb, 2012 [facility] [address] [id number] [address] [place] [address], [place] [address] 15 Feb, 2012 [facility] [address] [id number] [address] [place] [address], [place] [address] 14 Feb, 2012 [facility] [address] [id number] [address] [place] [address], [place] [address] Jan, [facility] [address] [id number] [address] [place] [address], [place] [address] Jan, [facility] [address] [id number] [address] [place] [address], [place] [address] 24 Jan, 2012 [facility] [address] [id number] [address] [place] [address], [place] [address] Jan, [facility] [address] [id number] [address] [place] [address], [place] [address] 17 Jan, 2012 [facility] [address] [id number] [address] [place] [address], [place] [address] Jan, [facility] [address] [id number] [address] [place] [address], [place] [address] Dec, [facility] [address] [id number] [address] [place] [address], [place] [address] Dec, [facility] [address] [id number] [address] [place] [address], [place] [address] Dec, [facility] [address] [id number] [address] [place] [address], [place] [address] November, [facility] [address] [id number] [address] [place] [address], [place] [address] November, [facility] [address] [id number] [address] [place] [address], [place] [address] November, [facility] [address] [id number] [address] [place] [address], [place] [address] November, [facility] [address] [id number] [address] [place] [address], [place] [address] Oct, [facility] [address] [id number] [address] [place] [address], [place] [address] Oct, [facility] [address] [id number] [address] [place] [address], [place] [address] Oct, [facility] [address] [id number] [address] [place] [address], [place] [address] Sep, [facility] [address] [id number] [address] [place] [address], [place] [address] Sep, [facility] [address] [id number] [address] [place] [address], [place] [address] Aug, [facility] [address] [id number] [address] [place] [address], [place] [address] Aug, [facility] [address] [id number] [address] [place] [address], [place] [address] Aug, [facility] [address] [id number] [address] [place] [address], [place] [address] Aug, [facility] [address] [id number] [address] [place] [address], [place] [address] Jul, [facility] [address] [id number] [address] [place] [address], [place] [address] Jul, [facility] [address] [id number] [address] [place] [address], [place] [address] Jul, [facility] [address] [id number] [address] [place] [address], [place] [address] Jul, [facility] [address] [id number] [address] [place] [address], [place] [address] Jul, [facility] [address] [id number] [address] [place] [address], [place] [address] Jul, [facility] [address] [id number] [address] [place] [address], [place] [address] Jul, [facility] [address] [id number] [address] [place] [address], [place] [address] Jul, [facility] [address] [id number] [address] [place] [address], [place] [address] Jun, [facility] [address] [id number] [address] [place] [address], [place] [address] Jun, [facility] [address] [id number] [address] [place] [address], [place] [address] Jun, [facility] [address] [id number] [address] [place] [address], [place] [address] Jun, [facility] [address] [id number] [address] [place] [address], [place] [address] Jun, [facility] [address] [id number] [address] [place] [address], [place] [address] May, [facility] [address] [id number] [address] [place] [address], [place] [address] May, [facility] [address] [id number] [address] [place] [address], [place] [address] 17 May, 2011 [facility] [address] [id number] [address] [place] [address], [place] [address] 15 May, 2011 [facility] [address] [id number] [address] [place] [address], [place] [address] 08 May, 2011 [facility] [address] [id number] [address] [place] [address], [place] [address] 08 May, 2011 [facility] [address] [id number] [address] [place] [address], [place] [address] Apr, [facility] [address] [id number] [address] [place] [address], [place] [address] Apr, [facility] [address] [id number] [address] [place] [address], [place] [address] Apr, [facility] [address] [id number] [address] [place] [address], [place] [address] Feb, [facility] [address] [id number] [address] [place] [address], [place] [address] Feb, [facility] [address] [id number] [address] [place] [address], [place] [address] Oct, [facility] [address] [id number] [address] [place] [address], [place] [address] Jul, [facility] [address] [id number] [address] [place] [address], [place] [address] Jul, [facility] [address] [id number] [address] [place] [address], [place] [address] Jun, [facility] [address] [id number] [address] [place] [address], [place] [address] May, [facility] [address] [id number] [address] [place] [address], [place] [address] May, [facility] [address] [id number] [address] [place] [address] [address] May, [facility] [address] [facility] [id number] [address] [place] [address] Apr, [facility] [address] [facility] [id number] [address] [place] [address] Jan, [facility] [address] [facility] [id number] [address] [place] [address] November, IMMUNIZATIONS No Known Immunizations SOCIAL HISTORY Never Assessed REASON FOR VISIT Fibromyalgia----DBennettRN, Updated contract, PDM if still taking pain meds, req uesting thyroid lab PLAN OF CARE Activity Details Follow Up 3 Months Reason: VITAL SIGNS Height 72 in 2017-12-23 Weight 230 lbs 2017-12-23 Temperature 98.5 degrees Fahrenheit 2017-12-23 Heart Rate 70 bpm 2017-12-23 Respiratory Rate 20 2017-12-23 BMI 31.19 kg/m2 2017-12-23 Blood pressure systolic 122 mmHg 2017-12-23 Blood pressure diastolic 80 mmHg 2017-12-23 MEDICATIONS Medication Instructions Dosage Frequency Start Date End Date Duration S barry Lamotrigine 150 MG Orally at bedtime 1 tablet Active Levothyroxine Sodium 100 MCG Orally Once a day 1 tablet on an empty stomach in the morning 24h 30 days Active Sertraline HCl 100 MG Orally Once a day 1 tablet 24h Active Melatonin 3 MG Orally at bedtime as needed 1 tablet at bedtime as needed with food November, Active Ranitidine HCl 150 TAKE ONE TABLET BY M OUTH TWICE A DAY NEEDED FOR HEARTBURN FOR 14 DAYS 7 Active Gabapentin 600 MG Orally Once a day 1 capsule before bedtime 24h Sep, 30 day(s) Active Lisinopril 5 MG Orally Once a day 1 tablet 24h Active Vitamin D 1000 UNIT Orally twice a day 1 tablet 12h Active Montelukast Sodium 10 MG Orally at bedtime 1 tablet Active Iron Supplement by oral route Once a day 2 tablets 24h Active Tramadol HCl 50 mg Orally 2 times a day 1 tablet as needed 12h Active BuPROPion HCl 300 mg Orally Once a day 1 tablet 24h Mar, Active Loratadine 10 MG Orally Once a day 1 tablet 24h Active ProAir HFA 90 mcg/actuation inhale 2 puf fs by Inhalation route every 4 hours as needed PRN shortness of breath/cough 16 Dec, 2014 Active Baclofen 10 TAKE ONE TABLET BY MOUTH THREE TIMES A DAY WIT H FOOD OR MILK 30 Active RESULTS No Results PROCEDURES Procedure Date Ordered Result [facility], 2017 [facility] VISIT ESTABLISHED PATIENT December 23, 2017 INSTRUCTIONS MEDICATIONS ADMINISTERED No Known Medications [...]
--- OUTSIDE RECORDS SUMMARY | 2020-01-31 09:52 | XMS REPORT ---
Author Author Ivet WILLSON Organization [facility] Address [address] [place] [address] Care Team Providers Care Radiology Transporter Name Role Phone MADELYN WILLSON Unavailable PROBLEMS Type Condition ICD9-CM Code KAP52-QV Code Onset Dates Condition S tatus SNOMED Code Problem Schizo affective schizophrenia F25.0 Active 258736306 Problem Low back pain, unspecified b ack pain laterality, unspecified chronicity, with sciatica presence unspecified M54.5 Active 582794255 Problem Osteoarthritis M19.90 Active 85461 5006 Problem Secondary hyperparathyroidism, not elsewhere classified E21.1 Active 56659002 Problem Iron deficiency anemia, unspecified iron deficiency an emia type D50.9 Active 77444104 Problem Stage 3 chronic kidney disease N18.3 Active 797994007 Problem Bilateral carotid artery disease I77.9 Active 823693963 Problem Vitamin D deficiency E55.9 Active 76122060 Problem Fibromyalgia M79.7 Active 9352646 05 Problem GERD (gastroesophageal reflux disease) K21.9 Active 895046012 Problem Hypothyroidism E03.9 Active 10557 008 Problem Anxiety F41.9 Active 07450928 Problem Depression F32.9 Active 74177856 Problem Essential hypertension I10 Active 74550445 ALLERGIES Substance Reaction Event Type Date Status Silvadene Unknown Drug Allergy November, Active Penicillin V Potassium Unknown Drug Allergy November, Activ e Levaquin muscle/joint ache Drug Allergy November, Active Feldene Unknown Drug Allergy November, Active Cholecalciferol (vitamin D3) 50,000 Unit Capsule threw /meds labs out of whack Non Drug Allergy November, Active ENCOUNTERS Encounter Location Date Diagnosis [facility] [address] [facility] [id number] [address] [place] [address] 12 Dec, 2017 Fibromyalgia M79.7 ; Osteoar thritis M19.90 and Encounter for medication management Z79.899 [facility] [address] [address] November, Nausea and vomiting, intract ability of vomiting not specified, unspecified vomiting type R11.2 and Dizziness R42 [facility] [address] [address] November, Fibromyalgia M79.7 [facility] [address] [address] November, Medicare annual wellness vis it, initial Z00.00 ; Anxiety F41.9 ; Depression F32.9 ; Stage 3 chronic kidney disease N18.3 ; Fibromyalgia M79.7 ; Essential hypertension I10 ; Secondary hyperparathyroidism, not elsewhere classified E21.1 ; Osteoarthritis M19.90 ; Hypothyroidism E03.9 and Encounter for immunization Z23 [facility] [address] [address] Oct, [place] [address] [address] Oct, Sebaceous cyst L72.3 [facility] [address] [address] Sep, Low back pain, unspecified b ack pain laterality, unspecified chronicity, with sciatica presence unspecified M54.5 and Secondary hyperparathyroidism, not elsewhere classified E21.1 [facility] [address] [address] Sep, Fibromyalgia M79.7 [place] [address] [address] Sep, Fibromyalgia M79.7 ; Plantar fasciitis, bilateral M72.2 ; Essential hypertension I10 ; Depression F32.9 and Epidermoid cyst L72.0 [facility] [address] [address] Jul, [facility] [address] [address] Jul, Fibromyalgia M79.7 ; Iron de ficiency anemia, unspecified iron deficiency anemia type D50.9 and Acute nasopharyngitis J00 [facility] [address] [address] Jun, Sore throat J02.9 and Acute serous otitis media of left ear, recurrence not specified H65.02 [place] [address] [address] Jun, Hypothyroidism E03.9 [place] [address] [address] Jun, [place] [address] [address] Jun, Hypothyroidism E03.9 ; Essen tial hypertension I10 and Osteoarthritis M19.90 [place] [address] [address] May, [facility] [address] [address] May, [place] [address] [address] Feb, [place] [address] [address] Feb, Leonela-menopausal N95.1 and To bacco use Z72.0 [place] [address] [address] Jan, [place] [address] [address] Jan, Osteoarthritis M19.90 ; Bila teral carotid artery disease I77.9 ; Raynauds syndrome I73.00 ; Essential hypertension I10 ; Allergic rhinitis J30.9 ; Stage 3 chronic kidney disease N18.3 ; Fibromyalgia M79.7 ; Hypothyroidism E03.9 ; GERD (gastroesophageal reflux disease) K21.9 and Vitamin D deficiency E55.9 [place] [address] [id number] [address] [place] [address] Dec, Raynauds syndrome I73.00 ; P lantar fascial fibromatosis M72.2 ; Osteoarthritis M19.90 and Fibromyalgia M79.7 [facility] [address] [id number] [address] [place] [address] Dec, [facility] [address] [facility] [id number] [address] [place] [address] Dec, [facility] [address] [id number] [address] [place] [address] Oct, Function kidney decreased N2 8.9 [facility] [address] [id number] [address] [place] [id number] Oct, Dental examination Z01.20 [facility] [address] [facility] [id number] [address] [place] [address] 18 Oct, 2016 Essential hypertension I10 a nd Function kidney decreased N28.9 [facility] [address] [id number] [address] [place] [id number] Oct, Dental examination Z01.20 [facility] [address] [facility] [id number] [address] [place] [address] Oct, [facility] [address] [facility] [id number] [address] [place] [address] Sep, Other specified disorders in volving the immune mechanism D89.89 and Schizo affective schizophrenia F25.0 [facility] [address] [facility] [id number] [address] [place] [address] Sep, Schizo affective schizophren ia F25.0 [facility] [address] [facility] [id number] [address] [place] [address] Sep, Eustachian tube dysfunction, bilateral H69.83 [facility] [address] [facility] [id number] [address] [place] [address] Sep, [facility] [address] [address] 14 Sep, 2016 [facility] [address] [address] 14 Sep, 2016 [place] [address] [address] 13 Sep, 2016 Eustachian tube dysfunction, bilateral H69.83 [place] [address] [address] 09 Sep, 2016 Allergic rhinitis J30.9 ; Es sential hypertension I10 ; Hypothyroidism E03.9 and Schizo affective schizophrenia F25.0 [place] [address] [address] Jul, Eustachian tube dysfunction, bilateral H69.83 and Visit for TB skin test Z11.1 [facility] [address] [address] Jul, Subacute pansinusitis J01.40 [place] [address] [address] Jun, Schizo affective schizophren ia F25.0 ; Depression F32.9 ; Allergic rhinitis J30.9 ; Raynauds syndrome I73.00 ; Essential hypertension I10 ; Slow transit constipation K59.01 ; GERD (gastroesophageal reflux disease) K21.9 ; Hypothyroidism E03.9 ; Nicotine addiction F17.200 ; Other viral agents as the cause of diseases classified elsewhere B97.89 ; Acute upper respiratory infection, unspecified J06.9 and Osteoarthritis M19.90 [place] [address] [address] Jun, Allergic rhinitis J30.9 and GERD (gastroesophageal reflux disease) K21.9 [place] [address] [address] May, [place] [address] [address] Mar, Schizo affective schizophren ia F25.0 [place] [id number] [place] [address] Mar, Schizo affective schizophren ia F25.0 [place] [address] [place] [id number] [address] [place] [address] 15 Mar, 2016 Schizo affective schizophren ia F25.0 [place] [address] [place] [id number] [address] [place] [address] Mar, Acute non-recurrent maxillar y sinusitis J01.00 [place] [address] [place] [id number] [address] [place] [address] Feb, Schizo affective schizophren ia F25.0 [place] [address] [place] [id number] [address] [place] [address] Feb, Contact dermatitis and eczem a L25.9 [place] [address] [address] Jan, [place] [address] [address] Jan, Schizo affective schizophren ia F25.0 ; Slow transit constipation K59.01 ; Essential hypertension I10 ; GERD (gastroesophageal reflux disease) K21.9 ; Hypothyroidism E03.9 ; Osteoarthritis M19.90 ; Low back pain, unspecified back pain laterality, unspecified chronicity, with sciatica presence unspecified M54.5 and Bilateral carotid artery disease I77.9 [place] [address] [place] [address] Oct, [place] [address] [place] [id number] [address] [place] [address] Sep, Hypothyroid E03.9 [place] [address] [place] [id number] [address] [place] [address] Sep, Schizo affective schizophren ia F25.0 ; Depression F32.9 ; Anxiety F41.9 ; Allergic rhinitis J30.9 ; Raynauds syndrome I73.00 ; Insomnia G47.00 ; Essential hypertension I10 ; GERD (gastroesophageal reflux disease) K21.9 ; Hypothyroidism E03.9 and Vitamin D deficiency E55.9 [place] [address] [address] Sep, [facility] [address] [address] Sep, [place] [address] [address] Aug, Allergic rhinitis J30.9 ; De pression F32.9 ; Anxiety F41.9 ; Raynauds syndrome I73.00 ; Insomnia G47.00 and GERD (gastroesophageal reflux disease) K21.9 [place] [address] [address] Aug, MONICA (secretory otitis media) H65.90 and Raynauds syndrome I73.00 [facility] [address] [address] Jul, Acute otitis externa of both ears, unspecified type H60.503 [place] [address] [address] Jun, [place] [address] [address] Jun, Essential hypertension I10 ; Allergic rhinitis J30.9 ; Hypothyroidism E03.9 and Osteoarthritis M19.90 [place] [address] [address] Jun, Routine adult health mainten ance Z00.00 ; Hypothyroidism E03.9 ; Essential hypertension I10 ; Insomnia G47.00 ; Nicotine addiction F17.200 ; Raynauds syndrome I73.00 ; GERD (gastroesophageal reflux disease) K21.9 ; Allergic rhinitis J30.9 ; Anxiety F41.9 ; Depression F32.9 and Schizo affective schizophrenia F25.0 [place] [address] [place] [address] May, Upper respiratory tract infe ction, unspecified type J06.9 [facility] [address] [id number] [address] [place] [address] Mar, [facility] [address] [id number] [id number] Mar, [facility] [address] [id number] [address] [place] [address] Mar, [facility] [address] [id number] [address] [place] [address] Mar, [facility] [address] [id number] [address] [place] [address] Feb, Jaw pain 784.92 and Environm ental and seasonal allergies 477.8 [facility] [address] [id number] [address] [place] [address] Feb, [facility] [address] [id number] [address] [place] [address] Oct, [facility] [address] [id number] [address] [place] [address] Oct, [facility] [address] [id number] [address] [place] [address] Oct, [facility] [address] [id number] [address] [place] [address] Oct, [facility] [address] [id number] [address] [place] [address] Sep, [facility] [address] [id number] [address] [place] [address] Sep, [facility] [address] [id number] [address] [place] [address] Jul, [facility] [address] [id number] [address] [place] [address] Jul, [facility] [address] [id number] [address] [place] [address], [place] [address] Jul, [facility] [address] [id number] [address] [place] [address], [place] [address] Jul, [facility] [address] [id number] [address] [place] [address], [place] [address] Jul, [facility] [address] [id number] [address] [place] [address], [place] [address] Jul, [facility] [address] [id number] [address] [place] [address], [place] [address] Jul, [facility] [address] [id number] [address] [place] [address], [place] [address] Jun, [facility] [address] [id number] [address] [place] [address], [place] [address] Jun, [facility] [address] [id number] [address] [place] [address], [place] [address] Jun, [facility] [address] [id number] [address] [place] [address], [place] [id number] 18 Jun, 2014 [facility] [address] [id number] [address] [place] [address], [place] [address] Jun, [facility] [address] [id number] [address] [place] [address], [place] [address] 17 Jun, 2014 [facility] [address] [id number] [address] [place] [address], [place] [address] 16 Jun, 2014 [facility] [address] [id number] [address] [place] [address], [place] [address] 16 Jun, 2014 [facility] [address] [id number] [address] [place] [address], [place] [address] 30 Apr, 2014 [facility] [address] [id number] [address] [place] [address], [place] [address] Apr, [facility] [address] [id number] [address] [place] [address], [place] [address] Mar, [facility] [address] [id number] [facility] [place] [address] 17 Mar, 2014 [facility] [address] [id number] [address] [place] [address], [place] [address] Mar, [facility] [address] [id number] [address] [place] [address], [place] [address] Mar, [facility] [address] [id number] [address] [place] [address], [place] [address] Jan, [facility] [address] [id number] [address] [place] [address], [place] [address] Jan, [facility] [address] [id number] [address] [place] [address], [place] [address] Oct, [facility] [address] [id number] [address] [place] [address], [place] [address] Oct, [facility] [address] [id number] [address] [place] [address], [place] [address] Sep, [facility] [address] [id number] [address] [place] [address], [place] [address] Sep, [facility] [address] [id number] [address] [place] [address], [place] [address] Sep, [facility] [address] [id number] [address] [place] [address], [place] [address] Sep, [facility] [address] [id number] [address] [place] [address], [place] [address] Sep, [facility] [address] [id number] [address] [place] [address], [place] [address] Sep, [facility] [address] [id number] [address] [place] [address], [place] [address] Aug, [facility] [address] [id number] [address] [place] [address], [place] [address] Aug, [facility] [address] [id number] [address] [place] [address], [place] [address] Jul, [facility] [address] [id number] [address] [place] [address], [place] [address] Jul, [facility] [address] [id number] [address] [place] [address], [place] [address] Jul, [facility] [address] [id number] [address] [place] [address], [place] [address] Jul, [facility] [address] [id number] [address] [place] [address], [place] [address] Jun, [facility] [address] [id number] [address] [place] [address], [place] [address] Jun, [facility] [address] [id number] [address] [place] [address], [place] [address] May, [facility] [address] [id number] [address] [place] [address], [place] [address] May, [facility] [address] [id number] [address] [place] [address], [place] [address] Apr, [facility] [address] [id number] [address] [place] [address], [place] [address] Apr, [facility] [address] [id number] [address] [place] [address], [place] [address] Apr, [facility] [address] [id number] [address] [place] [address], [place] [address] Apr, [facility] [address] [id number] [address] [place] [address], [place] [address] Apr, [facility] [address] [id number] [address] [place] [address], [place] [address] Apr, [facility] [address] [id number] [address] [place] [address], [place] [address] 24 Mar, 2013 [facility] [address] [id number] [address] [place] [address], [place] [address] 12 Mar, 2013 [facility] [address] [id number] [address] [place] [address], [place] [address] 09 Mar, 2013 [facility] [address] [id number] [address] [place] [address], [place] [address] 05 Mar, 2013 [facility] [address] [id number] [address] [place] [address], [place] [address] 05 Mar, 2013 [facility] [address] [id number] [address] [place] [address], [place] [address] Feb, [facility] [address] [id number] [address] [place] [address], [place] [address] Feb, [facility] [address] [id number] [address] [place] [address], [place] [address] Feb, [facility] [address] [id number] [address] [place] [address], [place] [address] Feb, [facility] [address] [id number] [address] [place] [address], [place] [address] Jan, [facility] [address] [id number] [address] [place] [address], [place] [address] Jan, [facility] [address] [id number] [address] [place] [address], [place] [address] Jan, [facility] [address] [id number] [address] [place] [address], [place] [address] Jan, [facility] [address] [id number] [address] [place] [address], [place] [address] Jan, [facility] [address] [id number] [address] [place] [address], [place] [address] Jan, [facility] [address] [id number] [address] [place] [address], [place] [address] Dec, [facility] [address] [id number] [address] [place] [address], [place] [address] Dec, [facility] [address] [id number] [address] [place] [address], [place] [address] 19 Dec, 2012 [facility] [address] [id number] [address] [place] [address], [place] [address] 14 Dec, 2012 [facility] [address] [id number] [address] [place] [address], [place] [address] Dec, [facility] [address] [id number] [address] [place] [address], [place] [address] 12 Dec, 2012 [facility] [address] [id number] [address] [place] [address], [place] [address] 11 Dec, 2012 [facility] [address] [id number] [address] [place] [address], [place] [address] 07 Dec, 2012 [facility] [address] [id number] [address] [place] [address], [place] [id number] 05 Dec, 2012 [facility] [address] [id number] [address] [place] [address], [place] [id number] Dec, [facility] [address] [id number] [address] [place] [address], [place] [id number] November, [facility] [address] [id number] [address] [place] [address], [place] [id number] November, [facility] [address] [id number] [address] [place] [address], [place] [id number] November, [facility] [address] [id number] [address] [place] [address], [place] [id number] November, [facility] [address] [id number] [address] [place] [address], [place] [id number] November, [facility] [address] [id number] [address] [place] [address], [place] [id number] Oct, [facility] [address] [id number] [address] [place] [address], [place] [id number] Oct, [facility] [address] [id number] [address] [place] [address], [place] [id number] Oct, [facility] [address] [id number] [address] [place] [address], [place] [id number] 09 Oct, 2012 [facility] [address] [id number] [address] [place] [address], [place] [id number] Oct, [facility] [address] [id number] [address] [place] [address], [place] [id number] Sep, [facility] [address] [id number] [address] [place] [address], [place] [id number] Sep, [facility] [address] [id number] [address] [place] [address], [place] [id number] 18 Sep, 2012 [facility] [address] [id number] [address] [place] [address], [place] [id number] 05 Sep, 2012 [facility] [address] [id number] [address] [place] [address], [place] [id number] 26 Aug, 2012 [facility] [address] [id number] [address] [place] [address], [place] [id number] 18 Aug, 2012 [facility] [address] [id number] [address] [place] [address], [place] [id number] 18 Aug, 2012 [facility] [address] [id number] [address] [place] [address], [place] [id number] 15 Aug, 2012 [facility] [address] [id number] [address] [place] [address], [place] [id number] Jun, [facility] [address] [id number] [address] [place] [address], [place] [id number] Jun, [facility] [address] [id number] [address] [place] [address], [place] [id number] Jun, [facility] [address] [id number] [address] [place] [address], [place] [id number] Jun, [facility] [address] [id number] [address] [place] [address], [place] [id number] Jun, [facility] [address] [id number] [address] [place] [address] [address] Jun, [facility] [address] [id number] [address] [place] [address], [place] [id number] Jun, [facility] [address] [id number] [address] [place] [address], [place] [address] Jun, [facility] [address] [id number] [address] [place] [address], [place] [address] Jun, [facility] [address] [id number] [address] [place] [address], [place] [address] Jun, [facility] [address] [id number] [address] [place] [address], [place] [address] May, [facility] [address] [id number] [address] [place] [address], [place] [address] May, [facility] [address] [id number] [address] [place] [address], [place] [phone] May, [facility] [address] [id number] [address] [place] [address], [place] [address] May, [facility] [address] [id number] [address] [place] [address], [place] [id number] 26 May, 2012 [facility] [address] [id number] [address] [place] [address], [place] [address] 16 May, 2012 [facility] [address] [id number] [address] [place] [address], [place] [id number] 16 May, 2012 [facility] [address] [id number] [address] [place] [id number] 14 May, 2012 [facility] [address] [id number] [address] [place] [address], [place] [address] 14 May, 2012 [facility] [address] [id number] [address] [place] [address], [place] [id number] 30 Apr, 2012 [facility] [address] [id number] [address] [place] [address], [place] [address] 30 Apr, 2012 [facility] [address] [id number] [address] [place] [address], [place] [id number] 17 Apr, 2012 [facility] [address] [id number] [address] [place] [address], [place] [id number] 17 Apr, 2012 [facility] [address] [id number] [address] [place] [address], [place] [id number] 09 Apr, 2012 [facility] [address] [id number] [address] [place] [address], [place] [id number] 18 Mar, 2012 [facility] [address] [id number] [address] [place] [address], [place] [id number] 17 Mar, 2012 [facility] [address] [id number] [address] [place] [address], [place] [id number] 07 Mar, 2012 [facility] [address] [id number] [address] [place] [address], [place] [id number] 27 Feb, 2012 [facility] [address] [id number] [address] [place] [address], [place] [id number] 16 Feb, 2012 [facility] [address] [id number] [address] [place] [address], [place] [id number] 15 Feb, 2012 [facility] [address] [id number] [address] [place] [address], [place] [id number] 14 Feb, 2012 [facility] [address] [id number] [address] [place] [address], [place] [id number] Jan, [facility] [address] [id number] [address] [place] [address], [place] [address] Jan, [facility] [address] [id number] [address] [place] [address], [place] [id number] 24 Jan, 2012 [facility] [address] [id number] [address] [place] [address], [place] [address] Jan, [facility] [address] [id number] [address] [place] [address], [place] [id number] 17 Jan, 2012 [facility] [address] [id number] [address] [place] [address], [place] [address] Jan, [facility] [address] [id number] [address] [place] [address], [place] [address] Dec, [facility] [address] [id number] [address] [place] [address], [place] [address] Dec, [facility] [address] [id number] [address] [place] [address], [place] [address] Dec, [facility] [address] [id number] [address] [place] [address], [place] [phone] November, [facility] [address] [id number] [address] [place] [address], [place] [id number] November, [facility] [address] [id number] [address] [place] [address], [place] [phone] November, [facility] [address] [id number] [address] [place] [address], [place] [address] November, [facility] [address] [id number] [address] [place] [address], [place] [address] Oct, [facility] [address] [id number] [address] [place] [address], [place] [id number] Oct, [facility] [address] [id number] [address] [place] [address], [place] [id number] Oct, [facility] [address] [id number] [address] [place] [address], [place] [address] Sep, [facility] [address] [id number] [address] [place] [address], [place] [address] Sep, [facility] [address] [id number] [address] [place] [address], [place] [id number] Aug, [facility] [address] [id number] [address] [place] [address], [place] [address] Aug, [facility] [address] [id number] [address] [place] [address], [place] [address] Aug, [facility] [address] [id number] [address] [place] [address], [place] [id number] Aug, [facility] [address] [id number] [address] [place] [address], [place] [phone] Jul, [facility] [address] [id number] [address] [place] [address], [place] [address] Jul, [facility] [address] [id number] [address] [place] [address], [place] [id number] Jul, [facility] [address] [id number] [address] [place] [address], [place] [address] Jul, [facility] [address] [id number] [address] [place] [address], [place] [address] Jul, [facility] [address] [id number] [address] [place] [address], [place] [phone] Jul, [facility] [address] [id number] [address] [place] [address], [place] [address] Jul, [facility] [address] [id number] [address] [place] [address], [place] [address] Jul, [facility] [address] [id number] [address] [place] [address], [place] [address] Jun, [facility] [address] [id number] [address] [place] [address], [place] [address] Jun, [facility] [address] [id number] [address] [place] [address], [place] [address] Jun, [facility] [address] [id number] [address] [place] [address], [place] [id number] Jun, [facility] [address] [id number] [address] [place] [address], [place] [address] Jun, [facility] [address] [id number] [address] [place] [address], [place] [address] May, [facility] [address] [id number] [address] [place] [address], [place] [address] May, [facility] [address] [id number] [address] [place] [address], [place] [address] 17 May, 2011 [facility] [address] [id number] [address] [place] [address], [place] [address] 15 May, 2011 [facility] [address] [id number] [address] [place] [address], [place] [address] 08 May, 2011 [facility] [address] [id number] [address] [place] [address], [place] [address] 08 May, 2011 [facility] [address] [id number] [address] [place] [address], [place] [address] Apr, [facility] [address] [id number] [address] [place] [address], [place] [address] Apr, [facility] [address] [id number] [address] [place] [address], [place] [address] Apr, [facility] [address] [id number] [address] [place] [address], [place] [address] Feb, [facility] [address] [id number] [address] [place] [address], [place] [address] Feb, [facility] [address] [id number] [address] [place] [address], [place] [address] Oct, [facility] [address] [id number] [address] [place] [address], [place] [address] Jul, [facility] [address] [id number] [address] [place] [address], [place] [address] Jul, [facility] [address] [id number] [address] [place] [address], [place] [address] Jun, [facility] [address] [id number] [address] [place] [address], [place] [address] May, [facility] [address] [id number] [address] [place] [address], [place] [address] May, [facility] [address] [id number] [address] [place] [address] [address] May, [facility] [address] [facility] [id number] [address] [place] [phone] Apr, [facility] [address] [facility] [id number] [address] [place] [id number] Jan, [facility] [address] [facility] [id number] [address] [place] [phone] November, IMMUNIZATIONS Vaccine Route Administration Date Status TDAP (BOOSTRIX) IM Intramuscular November 21, 2017 Administered SOCIAL HISTORY Never Assessed REASON FOR VISIT MAWV- initial visit WB-MA PLAN OF CARE Activity Details Follow Up 1 Year Reason: VITAL SIGNS Height 72 in 2017-11-21 Weight 232 lbs 2017-11-21 Temperature 98.3 degrees Fahrenheit 2017-11-21 Heart Rate 70 bpm 2017-11-21 Respiratory Rate 18 2017-11-21 Oximetry on room air:98 % 2017-11-21 BMI 31.46 kg/m2 2017-11-21 Blood pressure systolic 118 mmHg 2017-11-21 Blood pressure diastolic 76 mmHg 2017-11-21 MEDICATIONS Medication Instructions Dosage Frequency Start Date End Date Duration S tatus Vitamin D 2000 UNIT Orally twice a day 1 tablet 12h Active Baclofen 10 TAKE ONE TABLET BY MOUTH THREE TIMES A DAY WIT H FOOD OR MILK 30 Active Lamotrigine 150 MG Orally at bedtime 1 tablet Active Loratadine 10 MG Orally Once a day 1 tablet 24h Active Iron Supplement by oral route Once a day 2 tablets 24h Active Lisinopril 5 MG Orally Once a day 1 tablet 24h Active BuPROPion HCl 300 mg Orally Once a day 1 tablet 24h Mar, Active Montelukast Sodium 10 MG Orally at bedtime 1 tablet Active ProAir HFA 90 mcg/actuation inhale 2 puf fs by Inhalation route every 4 hours as needed PRN shortness of breath/cough Jun, Not-Taking Ranitidine HCl 150 TAKE ONE TABLET BY M OUTH TWICE A DAY NEEDED FOR HEARTBURN FOR 14 DAYS 7 Active Sertraline HCl 100 MG Orally Once a day 1 tablet 24h Active Levothyroxine Sodium 100 MCG Orally Once a day 1 tablet on an empty stomach in the morning 24h 30 days Active Tramadol HCl 50 MG Orally every 6 hrs 1 tablet as needed 6h Active Melatonin 5 mg 0.5 Tablet by Oral route 1 time per day at night 30 Nov, 2012 Active RESULTS No Results PROCEDURES Procedure Date Ordered Result Body Site [facility] VISIT IPPE/AWV November 21, 2017 ANNUAL MADELINENES VST; PERSNL PPS INIT November 21, 2017 PT TOBACCO SCREEN RCVD TLK November 21, 2017 FALL RISK ASSESSMENT DOCD November 21, 2017 SINGLE IMMUNIZATION ADMIN November 21, 2017 TDAP (BOOSTRIX) November 21, 2017 INSTRUCTIONS MEDICATIONS ADMINISTERED No Known Medications [...]
--- OUTSIDE RECORDS SUMMARY | 2020-01-31 09:52 | XMS REPORT ---
Author Author Ivet WILLSON Organization [facility] Address [address] [place] [address] Care Team Providers Care Assistant Commissioner Name Role Phone MADELYN WILLSON Unavailable PROBLEMS Type Condition ICD9-CM Code ANV54-YF Code Onset Dates Condition S tatus SNOMED Code Problem Schizo affective schizophrenia F25.0 Active 535762816 Problem Low back pain, unspecified b ack pain laterality, unspecified chronicity, with sciatica presence unspecified M54.5 Active 663352567 Problem Osteoarthritis M19.90 Active 96325 5006 Problem Secondary hyperparathyroidism, not elsewhere classified E21.1 Active 06871900 Problem Iron deficiency anemia, unspecified iron deficiency an emia type D50.9 Active 74165315 Problem Stage 3 chronic kidney disease N18.3 Active 350302936 Problem Bilateral carotid artery disease I77.9 Active 213645362 Problem Vitamin D deficiency E55.9 Active 38123274 Problem Fibromyalgia M79.7 Active 8726840 05 Problem GERD (gastroesophageal reflux disease) K21.9 Active 279646482 Problem Hypothyroidism E03.9 Active 10123 008 Problem Anxiety F41.9 Active 33474596 Problem Depression F32.9 Active 52264414 Problem Essential hypertension I10 Active 89341794 ALLERGIES No Information ENCOUNTERS Encounter Location Date Diagnosis [facility] [address] [place] [address] Dec, Fibromyalgia M79.7 ; Osteoar thritis M19.90 and Encounter for medication management Z79.899 [facility] [address] [place] [id number] [address] [place] [address] November, Nausea and vomiting, intract ability of vomiting not specified, unspecified vomiting type R11.2 and Dizziness R42 [facility] [address] [id number] [address] [place] [address] November, Fibromyalgia M79.7 [facility] [address] [address] November, Medicare annual wellness vis it, initial Z00.00 ; Anxiety F41.9 ; Depression F32.9 ; Stage 3 chronic kidney disease N18.3 ; Fibromyalgia M79.7 ; Essential hypertension I10 ; Secondary hyperparathyroidism, not elsewhere classified E21.1 ; Osteoarthritis M19.90 ; Hypothyroidism E03.9 and Encounter for immunization Z23 [facility] [address] [address] Oct, [place] [address] [address] Oct, Sebaceous cyst L72.3 [place] [address] [address] Sep, Low back pain, unspecified b ack pain laterality, unspecified chronicity, with sciatica presence unspecified M54.5 and Secondary hyperparathyroidism, not elsewhere classified E21.1 [facility] [address] [address] Sep, Fibromyalgia M79.7 [place] [address] [address] Sep, Fibromyalgia M79.7 ; Plantar fasciitis, bilateral M72.2 ; Essential hypertension I10 ; Depression F32.9 and Epidermoid cyst L72.0 [place] [address] [address] Jul, [place] [address] [address] Jul, Fibromyalgia M79.7 ; Iron de ficiency anemia, unspecified iron deficiency anemia type D50.9 and Acute nasopharyngitis J00 [facility] [address] [id number] [address] [place] [address] Jun, Sore throat J02.9 and Acute serous otitis media of left ear, recurrence not specified H65.02 [place] [address] [address] Jun, Hypothyroidism E03.9 [place] [address] [address] Jun, [place] [address] [address] Jun, Hypothyroidism E03.9 ; Essen tial hypertension I10 and Osteoarthritis M19.90 [place] [address] [address] May, [place] [address] [address] May, [place] [address] [address] Feb, [place] [address] [address] Feb, Leonela-menopausal N95.1 and To bacco use Z72.0 [place] [address] [address] Jan, [place] [address] [address] Jan, Osteoarthritis M19.90 ; Bila teral carotid artery disease I77.9 ; Raynauds syndrome I73.00 ; Essential hypertension I10 ; Allergic rhinitis J30.9 ; Stage 3 chronic kidney disease N18.3 ; Fibromyalgia M79.7 ; Hypothyroidism E03.9 ; GERD (gastroesophageal reflux disease) K21.9 and Vitamin D deficiency E55.9 [place] [address] [address] Dec, Raynauds syndrome I73.00 ; P lantar fascial fibromatosis M72.2 ; Osteoarthritis M19.90 and Fibromyalgia M79.7 [place] [address] [address] Dec, [facility] [address] [id number] [address] [place] [address] Dec, [facility] [address] [id number] [address] [place] [address] Oct, Function kidney decreased N2 8.[address] [facility] [address] [id number] [address] [place] [id number] Oct, Dental examination Z01.20 [facility] [address] [id number] [address] [place] [id number] 18 Oct, 2016 Essential hypertension I10 a nd Function kidney decreased N28.[address] [facility] [address] [id number] [address] [place] [id number] Oct, Dental examination Z01.20 [facility] [address] [id number] [address] [place] [address] Oct, [facility] [address] [facility] [id number] [address] [place] [address] 24 Sep, 2016 Other specified disorders in volving the immune mechanism D89.89 and Schizo affective schizophrenia F25.0 [facility] [address] [facility] [id number] [address] [place] [address] 21 Sep, 2016 Schizo affective schizophren ia F25.0 [facility] [address] [id number] [address] [place] [address] 16 Sep, 2016 Eustachian tube dysfunction, bilateral H69.83 [facility] [address] [id number] [address] [place] [address] 15 Sep, 2016 [facility] [address] [facility] [id number] [address] [place] [address] 14 Sep, 2016 [facility] [address] [facility] [id number] [address] [place] [address] 14 Sep, 2016 [facility] [address] [facility] [id number] [address] [place] [address] 13 Sep, 2016 Eustachian tube dysfunction, bilateral H69.83 [facility] [address] [place] [address] [id number] [address] [place] [address] Sep, Allergic rhinitis J30.9 ; Es sential hypertension I10 ; Hypothyroidism E03.9 and Schizo affective schizophrenia F25.0 [facility] [address] [id number] [place] [address] Jul, Eustachian tube dysfunction, bilateral H69.83 and Visit for TB skin test Z11.1 [facility] [address] [place] [address] [id number] [place] [address] Jul, Subacute pansinusitis J01.40 [place] [address] [address] Jun, Schizo affective schizophren ia F25.0 ; Depression F32.9 ; Allergic rhinitis J30.9 ; Raynauds syndrome I73.00 ; Essential hypertension I10 ; Slow transit constipation K59.01 ; GERD (gastroesophageal reflux disease) K21.9 ; Hypothyroidism E03.9 ; Nicotine addiction F17.200 ; Other viral agents as the cause of diseases classified elsewhere B97.89 ; Acute upper respiratory infection, unspecified J06.9 and Osteoarthritis M19.90 [facility] [address] [place] [id number] [address] [place] [address] Jun, Allergic rhinitis J30.9 and GERD (gastroesophageal reflux disease) K21.9 [place] [address] [place] [address] May, [place] [address] [place] [id number] [address] [place] [address] Mar, Schizo affective schizophren ia F25.0 [place] [address] [place] [id number] [address] [place] [address] Mar, Schizo affective schizophren ia F25.0 [place] [address] [place] [id number] [address] [place] [address] 15 Mar, 2016 Schizo affective schizophren ia F25.0 [place] [address] [place] [id number] [address] [place] [address] Mar, Acute non-recurrent maxillar y sinusitis J01.00 [place] [address] [place] [id number] [address] [place] [address] Feb, Schizo affective schizophren ia F25.0 [place] [address] [address] Feb, Contact dermatitis and eczem a L25.9 [place] [address] [address] Jan, [place] [address] [address] Jan, Schizo affective schizophren ia F25.0 ; Slow transit constipation K59.01 ; Essential hypertension I10 ; GERD (gastroesophageal reflux disease) K21.9 ; Hypothyroidism E03.9 ; Osteoarthritis M19.90 ; Low back pain, unspecified back pain laterality, unspecified chronicity, with sciatica presence unspecified M54.5 and Bilateral carotid artery disease I77.9 [place] [address] [address] Oct, [place] [address] [address] Sep, Hypothyroid E03.9 [place] [address] [address] Sep, Schizo affective schizophren ia F25.0 ; Depression F32.9 ; Anxiety F41.9 ; Allergic rhinitis J30.9 ; Raynauds syndrome I73.00 ; Insomnia G47.00 ; Essential hypertension I10 ; GERD (gastroesophageal reflux disease) K21.9 ; Hypothyroidism E03.9 and Vitamin D deficiency E55.9 [place] [address] [place] [id number] [address] [place] [address] Sep, [place] [address] [place] [address] Sep, [place] [address] [address] Aug, Allergic rhinitis J30.9 ; De pression F32.9 ; Anxiety F41.9 ; Raynauds syndrome I73.00 ; Insomnia G47.00 and GERD (gastroesophageal reflux disease) K21.9 [place] [address] [address] Aug, MONICA (secretory otitis media) H65.90 and Raynauds syndrome I73.00 [facility] [address] [address] Jul, Acute otitis externa of both ears, unspecified type H60.503 [place] [address] [address] Jun, [place] [address] [address] Jun, Essential hypertension I10 ; Allergic rhinitis J30.9 ; Hypothyroidism E03.9 and Osteoarthritis M19.90 [place] [address] [address] Jun, Routine adult health mainten ance Z00.00 ; Hypothyroidism E03.9 ; Essential hypertension I10 ; Insomnia G47.00 ; Nicotine addiction F17.200 ; Raynauds syndrome I73.00 ; GERD (gastroesophageal reflux disease) K21.9 ; Allergic rhinitis J30.9 ; Anxiety F41.9 ; Depression F32.9 and Schizo affective schizophrenia F25.0 [place] [address] [address] May, Upper respiratory tract infe ction, unspecified type J06.9 [place] [address] [place] [id number] [address] [place] [address] Mar, [facility] [id number] [place] [id number] Mar, [facility] [address] [id number] [address] [place] [address], [place] [address] Mar, [facility] [address] [id number] [address] [place] [address], [place] [address] Mar, [facility] [address] [id number] [address] [place] [address], [place] [address] Feb, Jaw pain 784.92 and Environm ental and seasonal allergies 477.8 [facility] [address] [id number] [address] [place] [address], [place] [address] Feb, [facility] [address] [id number] [address] [place] [address], [place] [address] Oct, [facility] [address] [id number] [address] [place] [address], [place] [address] Oct, [facility] [address] [id number] [address] [place] [address], [place] [address] Oct, [facility] [address] [id number] [address] [place] [address], [place] [id number] Oct, [facility] [address] [id number] [address] [place] [address] Sep, [facility] [address] [id number] [address] [place] [address] Sep, [facility] [address] [id number] [address] [place] [address] Jul, [facility] [address] [id number] [address] [place] [address] Jul, [facility] [address] [id number] [address] [place] [address] Jul, [facility] [address] [id number] [address] [place] [address] Jul, [facility] [address] [id number] [address] [place] [address] Jul, [facility] [address] [id number] [address] [place] [address], [place] [address] Jul, [facility] [address] [id number] [address] [place] [address], [place] [address] Jul, [facility] [address] [id number] [address] [place] [address], [place] [address] Jun, [facility] [address] [id number] [address] [place] [address], [place] [address] Jun, [facility] [address] [id number] [address] [place] [address], [place] [address] Jun, [facility] [address] [id number] [address] [place] [address], [place] [address] 18 Jun, 2014 [facility] [address] [id number] [address] [place] [address], [place] [id number] 17 Jun, 2014 [facility] [address] [id number] [address] [place] [address], [place] [id number] 17 Jun, 2014 [facility] [address] [id number] [address] [place] [address], [place] [id number] 16 Jun, 2014 [facility] [address] [id number] [address] [place] [address], [place] [address] Jun, [facility] [address] [id number] [address] [place] [address], [place] [address] 30 Apr, 2014 [facility] [address] [id number] [address] [place] [address], [place] [id number] 30 Apr, 2014 [facility] [address] [id number] [address] [place] [address], [place] [id number] 17 Mar, 2014 [facility] [address] [id number] [address] [place] [address], [place] [id number] 17 Mar, 2014 [facility] [address] [id number] [address] [place] [address], [place] [address] Mar, [facility] [address] [id number] [address] [place] [address], [place] [address] Mar, [facility] [address] [id number] [address] [place] [address], [place] [address] Jan, [facility] [address] [id number] [address] [place] [address], [place] [address] Jan, [facility] [address] [id number] [address] [place] [address], [place] [address] Oct, [facility] [address] [id number] [address] [place] [address], [place] [address] Oct, [facility] [address] [id number] [address] [place] [address], [place] [id number] Sep, [facility] [address] [id number] [address] [place] [address], [place] [address] Sep, [facility] [address] [id number] [address] [place] [address], [place] [address] Sep, [facility] [address] [id number] [address] [place] [address], [place] [address] Sep, [facility] [address] [id number] [address] [place] [address], [place] [address] Sep, [facility] [address] [id number] [address] [place] [address], [place] [address] Sep, [facility] [address] [id number] [address] [place] [address], [place] [address] Aug, [facility] [address] [id number] [address] [place] [address], [place] [address] Aug, [facility] [address] [id number] [address] [place] [address], [place] [address] Jul, [facility] [address] [id number] [address] [place] [address], [place] [address] Jul, [facility] [address] [id number] [address] [place] [address], [place] [address] Jul, [facility] [address] [id number] [address] [place] [address], [place] [address] Jul, [facility] [address] [id number] [address] [place] [address], [place] [address] Jun, [facility] [address] [id number] [address] [place] [address], [place] [address] Jun, [facility] [address] [id number] [address] [place] [address], [place] [address] May, [facility] [address] [id number] [address] [place] [address], [place] [id number] May, [facility] [address] [id number] [address] [place] [address], [place] [address] Apr, [facility] [address] [id number] [address] [place] [address], [place] [id number] Apr, [facility] [address] [id number] [address] [place] [address], [place] [address] Apr, [facility] [address] [id number] [address] [place] [address], [place] [address] Apr, [facility] [address] [id number] [address] [place] [address] Apr, [facility] [address] [id number] [address] [place] [address] Apr, [facility] [address] [id number] [address] [place] [id number] 24 Mar, 2013 [facility] [address] [id number] [address] [place] [address], [place] [address] 12 Mar, 2013 [facility] [address] [id number] [address] [place] [address], [place] [id number] 09 Mar, 2013 [facility] [address] [id number] [address] [place] [id number] 05 Mar, 2013 [facility] [address] [id number] [address] [place] [address] 05 Mar, 2013 [facility] [address] [id number] [address] [place] [address], [place] [address] Feb, [facility] [address] [id number] [address] [place] [address], [place] [address] Feb, [facility] [address] [id number] [address] [place] [address], [place] [address] Feb, [facility] [address] [id number] [address] [place] [address], [place] [id number] Feb, [facility] [address] [id number] [address] [place] [address], [place] [address] Jan, [facility] [address] [id number] [address] [place] [address], [place] [id number] Jan, [facility] [address] [id number] [address] [place] [address], [place] [id number] 16 Jan, 2013 [facility] [address] [id number] [address] [place] [address], [place] [address] Jan, [facility] [address] [id number] [address] [place] [address], [place] [id number] Jan, [facility] [address] [id number] [address] [place] [address], [place] [id number] Jan, [facility] [address] [id number] [address] [place] [address], [place] [id number] Dec, [facility] [address] [id number] [address] [place] [address], [place] [id number] Dec, [facility] [address] [id number] [address] [place] [address], [place] [id number] Dec, [facility] [address] [id number] [address] [place] [address], [place] [id number] 14 Dec, 2012 [facility] [address] [id number] [address] [place] [address], [place] [id number] 13 Dec, 2012 [facility] [address] [id number] [address] [place] [address], [place] [id number] 12 Dec, 2012 [facility] [address] [id number] [address] [place] [address], [place] [id number] Dec, [facility] [address] [id number] [address] [place] [address], [place] [id number] 07 Dec, [address] [facility] [address] [id number] [address] [place] [address], [place] [id number] 05 Dec, 2012 [facility] [address] [id number] [address] [place] [address], [place] [id number] Dec, [facility] [address] [id number] [address] [place] [address], [place] [id number] November, [facility] [address] [id number] [address] [place] [address], [place] [id number] November, [facility] [address] [id number] [address] [place] [address], [place] [id number] November, [facility] [address] [id number] [address] [place] [address], [place] [id number] November, [facility] [address] [id number] [address] [place] [address], [place] [id number] November, [facility] [address] [id number] [address] [place] [address], [place] [id number] Oct, [facility] [address] [id number] [address] [place] [address], [place] [id number] Oct, [facility] [address] [id number] [address] [place] [address], [place] [id number] Oct, [facility] [address] [id number] [address] [place] [address], [place] [id number] Oct, [facility] [address] [id number] [address] [place] [address], [place] [id number] Oct, [facility] [address] [id number] [address] [place] [address], [place] [id number] Sep, [facility] [address] [id number] [address] [place] [address], [place] [id number] Sep, [facility] [address] [id number] [address] [place] [address], [place] [id number] 18 Sep, 2012 [facility] [address] [id number] [address] [place] [address], [place] [id number] 05 Sep, 2012 [facility] [address] [id number] [address] [place] [address], [place] [id number] 26 Aug, 2012 [facility] [address] [id number] [address] [place] [address], [place] [id number] Aug, [facility] [address] [id number] [address] [place] [address], [place] [id number] 18 Aug, 2012 [facility] [address] [id number] [address] [place] [address], [place] [id number] 15 Aug, 2012 [facility] [address] [id number] [address] [place] [address], [place] [id number] Jun, [facility] [address] [id number] [address] [place] [address], [place] [id number] Jun, [facility] [address] [id number] [address] [place] [address], [place] [id number] Jun, [facility] [address] [id number] [address] [place] [address], [place] [id number] Jun, [facility] [address] [id number] [address] [place] [address], [place] [id number] Jun, [facility] [address] [id number] [address] [place] [address], [place] [id number] Jun, [facility] [address] [id number] [address] [place] [address], [place] [id number] Jun, [facility] [address] [id number] [address] [place] [address], [place] [id number] Jun, [facility] [address] [id number] [address] [place] [address], [place] [id number] Jun, [facility] [facility] [address] [id number] [address] [place] [address], [place] [id number] Jun, [facility] [address] [id number] [address] [place] [address], [place] [id number] 28 May, 2012 [facility] [address] [id number] [address] [place] [address], [place] [id number] 27 May, 2012 [facility] [address] [id number] [address] [place] [address], [place] [id number] 27 May, 2012 [facility] [address] [id number] [address] [place] [address], [place] [id number] May, [facility] [address] [id number] [address] [place] [address], [place] [id number] May, [facility] [address] [id number] [address] [place] [address], [place] [id number] 16 May, 2012 [facility] [address] [id number] [address] [place] [address], [place] [id number] 16 May, 2012 [facility] [address] [id number] [address] [place] [address], [place] [id number] 14 May, 2012 [facility] [address] [id number] [address] [place] [address], [place] [id number] 14 May, 2012 [facility] [address] [id number] [address] [place] [address], [place] [id number] 30 Apr, 2012 [facility] [address] [id number] [address] [place] [address], [place] [id number] 30 Apr, 2012 [facility] [address] [id number] [address] [place] [address], [place] [id number] 17 Apr, 2012 [facility] [address] [id number] [address] [place] [address], [place] [id number] 17 Apr, 2012 [facility] [address] [id number] [address] [place] [address], [place] [id number] 09 Apr, 2012 [facility] [address] [id number] [address] [place] [address], [place] [id number] 18 Mar, 2012 [facility] [address] [id number] [address] [place] [address], [place] [id number] 17 Mar, 2012 [facility] [address] [id number] [address] [place] [address], [place] [id number] 07 Mar, 2012 [facility] [address] [id number] [address] [place] [address], [place] [id number] 27 Feb, 2012 [facility] [address] [id number] [address] [place] [address], [place] [id number] 16 Feb, 2012 [facility] [address] [id number] [address] [place] [address], [place] [id number] 15 Feb, 2012 [facility] [address] [id number] [address] [place] [address], [place] [id number] 14 Feb, 2012 [facility] [address] [id number] [address] [place] [address], [place] [id number] Jan, [facility] [address] [id number] [address] [place] [address], [place] [id number] Jan, [facility] [address] [id number] [address] [place] [address], [place] [id number] Jan, [facility] [address] [id number] [address] [place] [address], [place] [id number] Jan, [facility] [address] [id number] [address] [place] [address], [place] [id number] Jan, [facility] [address] [id number] [address] [place] [address], [place] [id number] Jan, [facility] [address] [id number] [address] [place] [address], [place] [id number] Dec, [facility] [address] [id number] [address] [place] [address], [place] [id number] 14 Dec, 2011 [facility] [address] [id number] [address] [place] [id number] Dec, [facility] [address] [id number] [address] [place] [address], [place] [id number] November, [facility] [address] [id number] [address] [place] [address], [place] [id number] November, [facility] [address] [id number] [address] [place] [address], [place] [id number] November, [facility] [address] [id number] [address] [place] [address], [place] [id number] November, [facility] [address] [id number] [address] [place] [address], [place] [id number] Oct, [facility] [address] [id number] [address] [place] [address], [place] [id number] Oct, [facility] [address] [id number] [address] [place] [address], [place] [id number] Oct, [facility] [address] [id number] [address] [place] [address], [place] [id number] Sep, [facility] [address] [id number] [address] [place] [address], [place] [id number] Sep, [facility] [address] [id number] [address] [place] [address], [place] [id number] Aug, [facility] [address] [id number] [address] [place] [address], [place] [id number] Aug, [facility] [address] [id number] [address] [place] [address], [place] [id number] Aug, [facility] [address] [id number] [address] [place] [address], [place] [id number] Aug, [facility] [address] [id number] [address] [place] [address], [place] [id number] Jul, [facility] [address] [id number] [address] [place] [address], [place] [id number] Jul, [facility] [address] [id number] [address] [place] [address], [place] [id number] Jul, [facility] [address] [id number] [address] [place] [address], [place] [id number] Jul, [facility] [address] [id number] [address] [place] [address], [place] [id number] Jul, [facility] [address] [id number] [address] [place] [address], [place] [id number] Jul, [facility] [address] [id number] [address] [place] [address], [place] [id number] Jul, [facility] [address] [id number] [address] [place] [address], [place] [id number] Jul, [facility] [address] [id number] [address] [place] [address], [place] [id number] Jun, [facility] [address] [id number] [address] [place] [address], [place] [id number] Jun, [facility] [address] [id number] [address] [place] [address], [place] [id number] Jun, [facility] [address] [id number] [address] [place] [address], [place] [id number] 08 Jun, 2011 [facility] [address] [id number] [address] [place] [address], [place] [id number] Jun, [facility] [address] [id number] [address] [place] [address], [place] [id number] May, [facility] [address] [id number] [address] [place] [address], [place] [id number] May, [facility] [address] [id number] [address] [place] [address], [place] [id number] 17 May, 2011 [facility] [address] [id number] [address] [place] [address], [place] [id number] 15 May, 2011 [facility] [address] [id number] [address] [place] [address], [place] [id number] 08 May, 2011 [facility] [address] [id number] [address] [place] [address], [place] [id number] 08 May, 2011 [facility] [address] [id number] [address] [place] [address], [place] [id number] Apr, [facility] [address] [id number] [address] [place] [address], [place] [id number] Apr, [facility] [address] [id number] [address] [place] [address], [place] [id number] Apr, [facility] [address] [id number] [address] [place] [address], [place] [id number] Feb, [facility] [address] [id number] [address] [place] [address], [place] [id number] Feb, [facility] [address] [id number] [address] [place] [address], [place] [id number] Oct, [facility] [address] [id number] [address] [place] [address], [place] [id number] Jul, [facility] [address] [id number] [address] [place] [address], [place] [id number] Jul, [facility] [address] [id number] [address] [place] [address], [place] [id number] Jun, [facility] [address] [id number] [address] [place] [address], [place] [id number] May, [facility] [address] [id number] [address] [place] [id number] May, [facility] [address] [id number] [address] [place] [address], [place] [id number] May, [facility] [address] [id number] [address] [place] [address], [place] [id number] Apr, [facility] [address] [id number] [address] [place] [address], [place] [id number] Jan, [facility] [address] [id number] [address] [place] [address] November, IMMUNIZATIONS No Known Immunizations SOCIAL HISTORY Never Assessed REASON FOR VISIT Staple Removal CbrumbackRn PLAN OF CARE VITAL SIGNS MEDICATIONS No [...]
--- OUTSIDE RECORDS SUMMARY | 2020-01-31 09:52 | XMS REPORT ---
Author Author Ivet WILLSON Organization [facility] Address [address] [place] [address] Care Team Providers Care Media Relations Associate Name Role Phone MADELYN WILLSON Unavailable PROBLEMS Type Condition ICD9-CM Code XRM96-CZ Code Onset Dates Condition S tatus SNOMED Code Problem Schizo affective schizophrenia F25.0 Active 375278771 Problem Low back pain, unspecified b ack pain laterality, unspecified chronicity, with sciatica presence unspecified M54.5 Active 898052061 Problem Osteoarthritis M19.90 Active 22753 5006 Problem Secondary hyperparathyroidism, not elsewhere classified E21.1 Active 54089915 Problem Iron deficiency anemia, unspecified iron deficiency an emia type D50.9 Active 75856073 Problem Stage 3 chronic kidney disease N18.3 Active 687752214 Problem Bilateral carotid artery disease I77.9 Active 085100148 Problem Vitamin D deficiency E55.9 Active 49018893 Problem Fibromyalgia M79.7 Active 6158445 05 Problem GERD (gastroesophageal reflux disease) K21.9 Active 530010620 Problem Hypothyroidism E03.9 Active 71191 008 Problem Anxiety F41.9 Active 07733198 Problem Depression F32.9 Active 54954877 Problem Essential hypertension I10 Active 61624314 ALLERGIES No Information ENCOUNTERS Encounter Location Date Diagnosis [facility] [id number] [place] [address] Dec, Fibromyalgia M79.7 ; Osteoar thritis M19.90 and Encounter for medication management Z79.899 [facility] [address] [place] [id number] [address] [place] [address] November, Nausea and vomiting, intract ability of vomiting not specified, unspecified vomiting type R11.2 and Dizziness R42 [facility] [address] [place] [id number] [address] [place] [address] November, Fibromyalgia M79.7 [facility] [address] [address] November, Medicare annual wellness vis it, initial Z00.00 ; Anxiety F41.9 ; Depression F32.9 ; Stage 3 chronic kidney disease N18.3 ; Fibromyalgia M79.7 ; Essential hypertension I10 ; Secondary hyperparathyroidism, not elsewhere classified E21.1 ; Osteoarthritis M19.90 ; Hypothyroidism E03.9 and Encounter for immunization Z23 [facility] [address] [address] Oct, [place] [address] [address] Oct, Sebaceous cyst L72.3 [place] [address] [address] Sep, Low back pain, unspecified b ack pain laterality, unspecified chronicity, with sciatica presence unspecified M54.5 and Secondary hyperparathyroidism, not elsewhere classified E21.1 [facility] [address] [address] Sep, Fibromyalgia M79.7 [place] [address] [address] Sep, Fibromyalgia M79.7 ; Plantar fasciitis, bilateral M72.2 ; Essential hypertension I10 ; Depression F32.9 and Epidermoid cyst L72.0 [place] [address] [address] Jul, [place] [address] [address] Jul, Fibromyalgia M79.7 ; Iron de ficiency anemia, unspecified iron deficiency anemia type D50.9 and Acute nasopharyngitis J00 [facility] [address] [place] [id number] [address] [place] [address] Jun, Sore throat J02.9 and Acute serous otitis media of left ear, recurrence not specified H65.02 [place] [address] [address] Jun, Hypothyroidism E03.9 [place] [address] [address] Jun, [place] [address] [address] Jun, Hypothyroidism E03.9 ; Essen tial hypertension I10 and Osteoarthritis M19.90 [place] [address] [address] May, [place] [address] [address] May, [place] [address] [address] Feb, [place] [address] [address] Feb, Leonela-menopausal N95.1 and To bacco use Z72.0 [place] [address] [address] Jan, [place] [address] [address] Jan, Osteoarthritis M19.90 ; Bila teral carotid artery disease I77.9 ; Raynauds syndrome I73.00 ; Essential hypertension I10 ; Allergic rhinitis J30.9 ; Stage 3 chronic kidney disease N18.3 ; Fibromyalgia M79.7 ; Hypothyroidism E03.9 ; GERD (gastroesophageal reflux disease) K21.9 and Vitamin D deficiency E55.9 [place] [address] [address] Dec, Raynauds syndrome I73.00 ; P lantar fascial fibromatosis M72.2 ; Osteoarthritis M19.90 and Fibromyalgia M79.7 [place] [address] [address] Dec, [facility] [address] [id number] [address] [place] [address] Dec, [facility] [address] [id number] [address] [place] [address] Oct, Function kidney decreased N2 8.9 [facility] [address] [id number] [address] [place] [id number] Oct, Dental examination Z01.20 [facility] [address] [id number] [address] [place] [address] 18 Oct, 2016 Essential hypertension I10 a nd Function kidney decreased N28.9 [facility] [address] [id number] [address] [place] [id number] Oct, Dental examination Z01.20 [facility] [address] [id number] [address] [place] [address] Oct, [facility] [address] [facility] [id number] [place] [address] 24 Sep, 2016 Other specified disorders in volving the immune mechanism D89.89 and Schizo affective schizophrenia F25.0 [facility] [address] [facility] [id number] [place] [address] 21 Sep, 2016 Schizo affective schizophren ia F25.0 [facility] [address] [id number] [address] [place] [address] 16 Sep, 2016 Eustachian tube dysfunction, bilateral H69.83 [facility] [address] [id number] [address] [place] [address] 15 Sep, 2016 [facility] [address] [facility] [id number] [place] [address] 14 Sep, 2016 [facility] [address] [facility] [id number] [place] [address] 14 Sep, 2016 [facility] [address] [facility] [id number] [place] [address] 13 Sep, 2016 Eustachian tube dysfunction, bilateral H69.83 [facility] [address] [place] [id number] [address] [place] [address] Sep, Allergic rhinitis J30.9 ; Es sential hypertension I10 ; Hypothyroidism E03.9 and Schizo affective schizophrenia F25.0 [facility] [address] [place] [id number] [place] [address] Jul, Eustachian tube dysfunction, bilateral H69.83 and Visit for TB skin test Z11.1 [facility] [address] [place] [id number] [place] [address] Jul, Subacute pansinusitis J01.40 [place] [address] [address] Jun, Schizo affective schizophren ia F25.0 ; Depression F32.9 ; Allergic rhinitis J30.9 ; Raynauds syndrome I73.00 ; Essential hypertension I10 ; Slow transit constipation K59.01 ; GERD (gastroesophageal reflux disease) K21.9 ; Hypothyroidism E03.9 ; Nicotine addiction F17.200 ; Other viral agents as the cause of diseases classified elsewhere B97.89 ; Acute upper respiratory infection, unspecified J06.9 and Osteoarthritis M19.90 [facility] [address] [place] [id number] [address] [place] [address] Jun, Allergic rhinitis J30.9 and GERD (gastroesophageal reflux disease) K21.9 [place] [address] [place] [address] May, [place] [address] [place] [id number] [address] [place] [address] Mar, Schizo affective schizophren ia F25.0 [place] [address] [place] [id number] [address] [place] [address] Mar, Schizo affective schizophren ia F25.0 [place] [address] [place] [id number] [address] [place] [address] 15 Mar, 2016 Schizo affective schizophren ia F25.0 [place] [id number] [place] [id number] [address] [place] [address] Mar, Acute non-recurrent maxillar y sinusitis J01.00 [place] [address] [place] [id number] [address] [place] [address] Feb, Schizo affective schizophren ia F25.0 [place] [address] [address] Feb, Contact dermatitis and eczem a L25.9 [place] [address] [address] Jan, [place] [address] [address] Jan, Schizo affective schizophren ia F25.0 ; Slow transit constipation K59.01 ; Essential hypertension I10 ; GERD (gastroesophageal reflux disease) K21.9 ; Hypothyroidism E03.9 ; Osteoarthritis M19.90 ; Low back pain, unspecified back pain laterality, unspecified chronicity, with sciatica presence unspecified M54.5 and Bilateral carotid artery disease I77.9 [place] [address] [address] Oct, [place] [address] [address] Sep, Hypothyroid E03.9 [place] [address] [address] Sep, Schizo affective schizophren ia F25.0 ; Depression F32.9 ; Anxiety F41.9 ; Allergic rhinitis J30.9 ; Raynauds syndrome I73.00 ; Insomnia G47.00 ; Essential hypertension I10 ; GERD (gastroesophageal reflux disease) K21.9 ; Hypothyroidism E03.9 and Vitamin D deficiency E55.9 [place] [address] [place] [id number] [address] [place] [address] Sep, [place] [address] [place] [address] Sep, [place] [address] [address] Aug, Allergic rhinitis J30.9 ; De pression F32.9 ; Anxiety F41.9 ; Raynauds syndrome I73.00 ; Insomnia G47.00 and GERD (gastroesophageal reflux disease) K21.9 [place] [address] [address] Aug, MONICA (secretory otitis media) H65.90 and Raynauds syndrome I73.00 [facility] [address] [address] Jul, Acute otitis externa of both ears, unspecified type H60.503 [place] [address] [address] Jun, [place] [address] [address] Jun, Essential hypertension I10 ; Allergic rhinitis J30.9 ; Hypothyroidism E03.9 and Osteoarthritis M19.90 [place] [address] [address] Jun, Routine adult health mainten ance Z00.00 ; Hypothyroidism E03.9 ; Essential hypertension I10 ; Insomnia G47.00 ; Nicotine addiction F17.200 ; Raynauds syndrome I73.00 ; GERD (gastroesophageal reflux disease) K21.9 ; Allergic rhinitis J30.9 ; Anxiety F41.9 ; Depression F32.9 and Schizo affective schizophrenia F25.0 [place] [address] [address] May, Upper respiratory tract infe ction, unspecified type J06.9 [place] [address] [place] [id number] [address] [place] [address] Mar, [facility] [id number] [place] [id number] Mar, [facility] [address] [id number] [address] [place] [address], [place] [address] Mar, [facility] [address] [id number] [address] [place] [address], [place] [address] Mar, [facility] [address] [id number] [address] [place] [address], [place] [address] Feb, Jaw pain 784.92 and Environm ental and seasonal allergies 477.8 [facility] [address] [id number] [address] [place] [address], [place] [address] Feb, [facility] [address] [id number] [address] [place] [address], [place] [address] Oct, [facility] [address] [id number] [address] [place] [address], [place] [address] Oct, [facility] [address] [id number] [address] [place] [address], [place] [address] Oct, [facility] [address] [id number] [address] [place] [address], [place] [address] Oct, [facility] [address] [id number] [address] [place] [address] Sep, [facility] [address] [id number] [address] [place] [address] Sep, [facility] [address] [id number] [address] [place] [address] Jul, [facility] [address] [id number] [address] [place] [address] Jul, [facility] [address] [id number] [address] [place] [address] Jul, [facility] [address] [id number] [address] [place] [address] Jul, [facility] [address] [id number] [address] [place] [address] Jul, [facility] [address] [id number] [address] [place] [address], [place] [address] Jul, [facility] [address] [id number] [address] [place] [address], [place] [address] Jul, [facility] [address] [id number] [address] [place] [address], [place] [address] Jun, [facility] [address] [id number] [address] [place] [address], [place] [address] Jun, [facility] [address] [id number] [address] [place] [address], [place] [address] Jun, [facility] [address] [id number] [address] [place] [address], [place] [address] 18 Jun, 2014 [facility] [address] [id number] [address] [place] [address], [place] [address] 17 Jun, 2014 [facility] [address] [id number] [address] [place] [address], [place] [address] 17 Jun, 2014 [facility] [address] [id number] [address] [place] [address], [place] [address] 16 Jun, 2014 [facility] [address] [id number] [address] [place] [address], [place] [address] Jun, [facility] [address] [id number] [address] [place] [address], [place] [address] 30 Apr, 2014 [facility] [address] [id number] [address] [place] [address], [place] [address] 30 Apr, 2014 [facility] [address] [id number] [address] [place] [address], [place] [address] 17 Mar, 2014 [facility] [address] [id number] [address] [place] [address], [place] [address] 17 Mar, 2014 [facility] [address] [id number] [address] [place] [address], [place] [address] Mar, [facility] [address] [id number] [address] [place] [address], [place] [address] Mar, [facility] [address] [id number] [address] [place] [address], [place] [address] Jan, [facility] [address] [id number] [address] [place] [address], [place] [address] Jan, [facility] [address] [id number] [address] [place] [address], [place] [address] Oct, [facility] [address] [id number] [address] [place] [address], [place] [address] Oct, [facility] [address] [id number] [address] [place] [address], [place] [address] Sep, [facility] [address] [id number] [address] [place] [address], [place] [address] Sep, [facility] [address] [id number] [address] [place] [address], [place] [address] Sep, [facility] [address] [id number] [address] [place] [address], [place] [address] Sep, [facility] [address] [id number] [address] [place] [address], [place] [address] Sep, [facility] [address] [id number] [address] [place] [address], [place] [address] Sep, [facility] [address] [id number] [address] [place] [address], [place] [address] Aug, [facility] [address] [id number] [address] [place] [address], [place] [address] Aug, [facility] [address] [id number] [address] [place] [address], [place] [address] Jul, [facility] [address] [id number] [address] [place] [address], [place] [address] Jul, [facility] [address] [id number] [address] [place] [address], [place] [address] Jul, [facility] [address] [id number] [address] [place] [address], [place] [address] Jul, [facility] [address] [id number] [address] [place] [address], [place] [address] Jun, [facility] [address] [id number] [address] [place] [address], [place] [address] Jun, [facility] [address] [id number] [address] [place] [address], [place] [address] May, [facility] [address] [id number] [address] [place] [address], [place] [address] May, [facility] [address] [id number] [address] [place] [address], [place] [address] Apr, [facility] [address] [id number] [address] [place] [address], [place] [address] Apr, [facility] [address] [id number] [address] [place] [address], [place] [address] Apr, [facility] [address] [id number] [address] [place] [address], [place] [address] Apr, [facility] [address] [id number] [address] [place] [address] Apr, [facility] [address] [id number] [address] [place] [address] Apr, [facility] [address] [id number] [address] [place] [address] 24 Mar, 2013 [facility] [address] [id number] [address] [place] [address], [place] [address] 12 Mar, 2013 [facility] [address] [id number] [address] [place] [address], [place] [address] 09 Mar, 2013 [facility] [address] [id number] [address] [place] [address] 05 Mar, 2013 [facility] [address] [id number] [address] [place] [address] 05 Mar, 2013 [facility] [address] [id number] [address] [place] [address], [place] [address] Feb, [facility] [address] [id number] [address] [place] [address], [place] [address] Feb, [facility] [address] [id number] [address] [place] [address], [place] [address] Feb, [facility] [address] [id number] [address] [place] [address], [place] [address] Feb, [facility] [address] [id number] [address] [place] [address], [place] [address] Jan, [facility] [address] [id number] [address] [place] [address], [place] [address] Jan, [facility] [address] [id number] [address] [place] [address], [place] [address] 16 Jan, 2013 [facility] [address] [id number] [address] [place] [address], [place] [address] Jan, [facility] [address] [id number] [address] [place] [address], [place] [address] Jan, [facility] [address] [id number] [address] [place] [address], [place] [address] Jan, [facility] [address] [id number] [address] [place] [address], [place] [address] Dec, [facility] [address] [id number] [address] [place] [address], [place] [address] Dec, [facility] [address] [id number] [address] [place] [address], [place] [address] Dec, [facility] [address] [id number] [address] [place] [address], [place] [address] 14 Dec, 2012 [facility] [address] [id number] [address] [place] [address], [place] [address] 13 Dec, 2012 [facility] [address] [id number] [address] [place] [address], [place] [address] 12 Dec, 2012 [facility] [address] [id number] [address] [place] [address], [place] [address] Dec, [facility] [address] [id number] [address] [place] [address], [place] [address] [address], [address] [facility] [address] [id number] [address] [place] [address], [place] [address] 05 Dec, 2012 [facility] [address] [id number] [address] [place] [address], [place] [address] Dec, [facility] [address] [id number] [address] [place] [address], [place] [address] November, [facility] [address] [id number] [address] [place] [address], [place] [address] November, [facility] [address] [id number] [address] [place] [address], [place] [address] November, [facility] [address] [id number] [address] [place] [address], [place] [address] November, [facility] [address] [id number] [address] [place] [address], [place] [address] November, [facility] [address] [id number] [address] [place] [address], [place] [address] Oct, [facility] [address] [id number] [address] [place] [address], [place] [address] Oct, [facility] [address] [id number] [address] [place] [address], [place] [address] Oct, [facility] [address] [id number] [address] [place] [address], [place] [address] Oct, [facility] [address] [id number] [address] [place] [address], [place] [address] Oct, [facility] [address] [id number] [address] [place] [address], [place] [address] Sep, [facility] [address] [id number] [address] [place] [address], [place] [address] Sep, [facility] [address] [id number] [address] [place] [address], [place] [address] 18 Sep, 2012 [facility] [address] [id number] [address] [place] [address], [place] [address] 05 Sep, 2012 [facility] [address] [id number] [address] [place] [address], [place] [address] 26 Aug, 2012 [facility] [address] [id number] [address] [place] [address], [place] [address] Aug, [facility] [address] [id number] [address] [place] [address], [place] [address] 18 Aug, 2012 [facility] [address] [id number] [address] [place] [address], [place] [address] 15 Aug, 2012 [facility] [address] [id number] [address] [place] [address], [place] [address] Jun, [facility] [address] [id number] [address] [place] [address], [place] [address] Jun, [facility] [address] [id number] [address] [place] [address], [place] [address] Jun, [facility] [address] [id number] [address] [place] [address], [place] [address] Jun, [facility] [address] [id number] [address] [place] [address], [place] [address] Jun, [facility] [address] [id number] [address] [place] [address], [place] [address] Jun, [facility] [address] [id number] [address] [place] [address], [place] [address] Jun, [facility] [address] [id number] [address] [place] [address], [place] [address] Jun, [facility] [address] [id number] [address] [place] [address], [place] [address] Jun, [facility] [address] [id number] [address] [place] [address], [place] [address] Jun, [facility] [address] [id number] [address] [place] [address], [place] [address] 28 May, 2012 [facility] [address] [id number] [address] [place] [address], [place] [address] 27 May, 2012 [facility] [address] [id number] [address] [place] [address], [place] [address] 27 May, 2012 [facility] [address] [id number] [address] [place] [address], [place] [address] May, [facility] [address] [id number] [address] [place] [address], [place] [address] May, [facility] [address] [id number] [address] [place] [address], [place] [address] 16 May, 2012 [facility] [address] [id number] [address] [place] [address], [place] [address] 16 May, 2012 [facility] [address] [id number] [address] [place] [address], [place] [address] 14 May, 2012 [facility] [address] [id number] [address] [place] [address], [place] [address] 14 May, 2012 [facility] [address] [id number] [address] [place] [address], [place] [address] 30 Apr, 2012 [facility] [address] [id number] [address] [place] [address], [place] [address] 30 Apr, 2012 [facility] [address] [id number] [address] [place] [address], [place] [address] 17 Apr, 2012 [facility] [address] [id number] [address] [place] [address], [place] [address] 17 Apr, 2012 [facility] [address] [id number] [address] [place] [address], [place] [address] 09 Apr, 2012 [facility] [address] [id number] [address] [place] [address], [place] [address] 18 Mar, 2012 [facility] [address] [id number] [address] [place] [address], [place] [address] 17 Mar, 2012 [facility] [address] [id number] [address] [place] [address], [place] [address] 07 Mar, 2012 [facility] [address] [id number] [address] [place] [address], [place] [address] 27 Feb, 2012 [facility] [address] [id number] [address] [place] [address], [place] [address] 16 Feb, 2012 [facility] [address] [id number] [address] [place] [address], [place] [address] 15 Feb, 2012 [facility] [address] [id number] [address] [place] [address], [place] [address] 14 Feb, 2012 [facility] [address] [id number] [address] [place] [address], [place] [address] Jan, [facility] [address] [id number] [address] [place] [address], [place] [address] Jan, [facility] [address] [id number] [address] [place] [address], [place] [address] Jan, [facility] [address] [id number] [address] [place] [address], [place] [address] Jan, [facility] [address] [id number] [address] [place] [address], [place] [address] Jan, [facility] [address] [id number] [address] [place] [address], [place] [address] Jan, [facility] [address] [id number] [address] [place] [address], [place] [address] Dec, [facility] [address] [id number] [address] [place] [address], [place] [address] 14 Dec, 2011 [facility] [address] [id number] [address] [place] [address] Dec, [facility] [address] [id number] [address] [place] [address], [place] [address] November, [facility] [address] [id number] [address] [place] [address], [place] [address] November, [facility] [address] [id number] [address] [place] [address], [place] [address] November, [facility] [address] [id number] [address] [place] [address], [place] [address] November, [facility] [address] [id number] [address] [place] [address], [place] [address] Oct, [facility] [address] [id number] [address] [place] [address], [place] [address] Oct, [facility] [address] [id number] [address] [place] [address], [place] [address] Oct, [facility] [address] [id number] [address] [place] [address], [place] [address] Sep, [facility] [address] [id number] [address] [place] [address], [place] [address] Sep, [facility] [address] [id number] [address] [place] [address], [place] [address] Aug, [facility] [address] [id number] [address] [place] [address], [place] [address] Aug, [facility] [address] [id number] [address] [place] [address], [place] [address] Aug, [facility] [address] [id number] [address] [place] [address], [place] [address] Aug, [facility] [address] [id number] [address] [place] [address], [place] [address] Jul, [facility] [address] [id number] [address] [place] [address], [place] [address] Jul, [facility] [address] [id number] [address] [place] [address], [place] [address] Jul, [facility] [address] [id number] [address] [place] [address], [place] [address] Jul, [facility] [address] [id number] [address] [place] [address], [place] [address] Jul, [facility] [address] [id number] [address] [place] [address], [place] [address] Jul, [facility] [address] [id number] [address] [place] [address], [place] [address] Jul, [facility] [address] [id number] [address] [place] [address], [place] [address] Jul, [facility] [address] [id number] [address] [place] [address], [place] [address] Jun, [facility] [address] [id number] [address] [place] [address], [place] [address] Jun, [facility] [address] [id number] [address] [place] [address], [place] [address] Jun, [facility] [address] [id number] [address] [place] [address], [place] [address] 08 Jun, 2011 [facility] [address] [id number] [address] [place] [address], [place] [address] Jun, [facility] [address] [id number] [address] [place] [address], [place] [address] May, [facility] [address] [id number] [address] [place] [address], [place] [address] May, [facility] [address] [id number] [address] [place] [address], [place] [address] 17 May, 2011 [facility] [address] [id number] [address] [place] [address], [place] [address] 15 May, 2011 [facility] [address] [id number] [address] [place] [address], [place] [address] 08 May, 2011 [facility] [address] [id number] [address] [place] [address], [place] [address] 08 May, 2011 [facility] [address] [id number] [address] [place] [address], [place] [address] Apr, [facility] [address] [id number] [address] [place] [address], [place] [address] Apr, [facility] [address] [id number] [address] [place] [address], [place] [address] Apr, [facility] [address] [id number] [address] [place] [address], [place] [address] Feb, [facility] [address] [id number] [address] [place] [address], [place] [address] Feb, [facility] [address] [id number] [address] [place] [address], [place] [address] Oct, [facility] [address] [id number] [address] [place] [address], [place] [address] Jul, [facility] [address] [id number] [address] [place] [address], [place] [address] Jul, [facility] [address] [id number] [address] [place] [address], [place] [address] Jun, [facility] [address] [id number] [address] [place] [address], [place] [address] May, [facility] [address] [id number] [address] [place] [address] May, [facility] [address] [id number] [address] [place] [address], [place] [address] May, [facility] [address] [id number] [address] [place] [address], [place] [address] Apr, [facility] [address] [id number] [address] [place] [address], [place] [address] Jan, [facility] [address] [id number] [address] [place] [address] November, IMMUNIZATIONS No Known Immunizations SOCIAL HISTORY Never Assessed REASON FOR VISIT PLAN OF CARE VITAL SIGNS MEDICATIONS Medication Instructions Dosage Frequency Start Date End Date Duration S barry Gabapentin 600 MG Orally Once a day 1 capsule before bedtime 24h Sep, 30 day(s) Active RESULTS No Results PROCEDURES No Known [...]
--- OUTSIDE RECORDS SUMMARY | 2020-01-31 09:53 | XMS REPORT ---
Author Author Ivet WILLSON Organization [facility] Address [address] [place] [address] Care Team Providers Care Public Policy Mediator Name Role Phone MADELYN WILLSON Unavailable PROBLEMS Type Condition ICD9-CM Code [id number] Code Onset Dates Condition S tatus SNOMED Code Problem Schizo affective schizophrenia F25.0 Active 252597046 Problem Low back pain, unspecified b ack pain laterality, unspecified chronicity, with sciatica presence unspecified M54.5 Active 070445620 Problem Osteoarthritis M19.90 Active 19157 5006 Problem Secondary hyperparathyroidism, not elsewhere classified E21.1 Active 36294113 Problem Iron deficiency anemia, unspecified iron deficiency an emia type D50.9 Active 11819966 Problem Stage 3 chronic kidney disease N18.3 Active 596832178 Problem Bilateral carotid artery disease I77.9 Active 153537481 Problem Vitamin D deficiency E55.9 Active 45745543 Problem Fibromyalgia M79.7 Active 6570800 05 Problem GERD (gastroesophageal reflux disease) K21.9 Active 981163288 Problem Hypothyroidism E03.9 Active 14500 008 Problem Anxiety F41.9 Active 07068990 Problem Depression F32.9 Active 70143797 Problem Essential hypertension I10 Active 18286973 ALLERGIES Substance Reaction Event Type Date Status Silvadene Unknown Drug Allergy Sep, Active Penicillin V Potassium Unknown Drug Allergy Sep, Activ e Levaquin muscle/joint ache Drug Allergy Sep, Active Feldene Unknown Drug Allergy Sep, Active Cholecalciferol (vitamin D3) 50,000 Unit Capsule threw /meds labs out of whack Non Drug Allergy Sep, Active ENCOUNTERS Encounter Location Date Diagnosis [facility] [address] [facility] [id number] [address] [place] [address] Dec, Fibromyalgia M79.7 ; Osteoar thritis M19.90 and Encounter for medication management Z79.899 [facility] [address] [address] November, Nausea and vomiting, intract ability of vomiting not specified, unspecified vomiting type R11.2 and Dizziness R42 [facility] [address] [address] November, Fibromyalgia M79.7 [facility] [address] [address] November, Medicare annual wellness vis it, initial Z00.00 ; Anxiety F41.9 ; Depression F32.9 ; Stage 3 chronic kidney disease N18.3 ; Fibromyalgia M79.7 ; Essential hypertension I10 ; Secondary hyperparathyroidism, not elsewhere classified E21.1 ; Osteoarthritis M19.90 ; Hypothyroidism E03.9 and Encounter for immunization Z23 [facility] [address] [address] Oct, [place] [address] [address] Oct, Sebaceous cyst L72.3 [facility] [address] [address] Sep, Low back pain, unspecified b ack pain laterality, unspecified chronicity, with sciatica presence unspecified M54.5 and Secondary hyperparathyroidism, not elsewhere classified E21.1 [facility] [address] [address] Sep, Fibromyalgia M79.7 [place] [address] [address] Sep, Fibromyalgia M79.7 ; Plantar fasciitis, bilateral M72.2 ; Essential hypertension I10 ; Depression F32.9 and Epidermoid cyst L72.0 [facility] [address] [address] Jul, [facility] [address] [address] Jul, Fibromyalgia M79.7 ; Iron de ficiency anemia, unspecified iron deficiency anemia type D50.9 and Acute nasopharyngitis J00 [facility] [address] [address] Jun, Sore throat J02.9 and Acute serous otitis media of left ear, recurrence not specified H65.02 [place] [address] [address] Jun, Hypothyroidism E03.9 [place] [address] [address] Jun, [place] [address] [address] Jun, Hypothyroidism E03.9 ; Essen tial hypertension I10 and Osteoarthritis M19.90 [place] [address] [address] May, [facility] [address] [address] May, [place] [address] [address] Feb, [place] [address] [address] Feb, Leonela-menopausal N95.1 and To bacco use Z72.0 [place] [address] [address] Jan, [place] [address] [address] Jan, Osteoarthritis M19.90 ; Bila teral carotid artery disease I77.9 ; Raynauds syndrome I73.00 ; Essential hypertension I10 ; Allergic rhinitis J30.9 ; Stage 3 chronic kidney disease N18.3 ; Fibromyalgia M79.7 ; Hypothyroidism E03.9 ; GERD (gastroesophageal reflux disease) K21.9 and Vitamin D deficiency E55.9 [place] [address] [id number] [address] [place] [address] Dec, Raynauds syndrome I73.00 ; P lantar fascial fibromatosis M72.2 ; Osteoarthritis M19.90 and Fibromyalgia M79.7 [facility] [address] [id number] [address] [place] [address] Dec, [facility] [address] [facility] [id number] [address] [place] [address] Dec, [facility] [address] [id number] [address] [place] [address] Oct, Function kidney decreased N2 8.9 [facility] [address] [id number] [address] [place] [id number] Oct, Dental examination Z01.20 [facility] [address] [facility] [facility] [id number] [address] [place] [address] 18 Oct, 2016 Essential hypertension I10 a nd Function kidney decreased N28.9 [facility] [address] [id number] [address] [place] [id number] Oct, Dental examination Z01.20 [facility] [address] [facility] [facility] [id number] [address] [place] [address] Oct, [facility] [address] [facility] [id number] [address] [place] [address] Sep, Other specified disorders in volving the immune mechanism D89.89 and Schizo affective schizophrenia F25.0 [facility] [address] [facility] [id number] [address] [place] [address] Sep, Schizo affective schizophren ia F25.0 [facility] [address] [facility] [id number] [address] [place] [address] Sep, Eustachian tube dysfunction, bilateral H69.83 [facility] [address] [facility] [id number] [address] [place] [address] Sep, [facility] [address] [address] 14 Sep, 2016 [facility] [address] [address] 14 Sep, 2016 [place] [address] [address] 13 Sep, 2016 Eustachian tube dysfunction, bilateral H69.83 [place] [address] [address] 09 Sep, 2016 Allergic rhinitis J30.9 ; Es sential hypertension I10 ; Hypothyroidism E03.9 and Schizo affective schizophrenia F25.0 [place] [address] [address] Jul, Eustachian tube dysfunction, bilateral H69.83 and Visit for TB skin test Z11.1 [facility] [address] [address] Jul, Subacute pansinusitis J01.40 [place] [address] [address] Jun, Schizo affective schizophren ia F25.0 ; Depression F32.9 ; Allergic rhinitis J30.9 ; Raynauds syndrome I73.00 ; Essential hypertension I10 ; Slow transit constipation K59.01 ; GERD (gastroesophageal reflux disease) K21.9 ; Hypothyroidism E03.9 ; Nicotine addiction F17.200 ; Other viral agents as the cause of diseases classified elsewhere B97.89 ; Acute upper respiratory infection, unspecified J06.9 and Osteoarthritis M19.90 [place] [address] [address] Jun, Allergic rhinitis J30.9 and GERD (gastroesophageal reflux disease) K21.9 [place] [address] [address] May, [place] [address] [address] Mar, Schizo affective schizophren ia F25.0 [place] [address] [place] [address] Mar, Schizo affective schizophren ia F25.0 [place] [address] [place] [id number] [address] [place] [address] 15 Mar, 2016 Schizo affective schizophren ia F25.0 [place] [address] [place] [id number] [address] [place] [address] Mar, Acute non-recurrent maxillar y sinusitis J01.00 [place] [address] [place] [id number] [address] [place] [address] Feb, Schizo affective schizophren ia F25.0 [place] [address] [place] [id number] [address] [place] [address] Feb, Contact dermatitis and eczem a L25.9 [place] [address] [address] Jan, [place] [address] [address] Jan, Schizo affective schizophren ia F25.0 ; Slow transit constipation K59.01 ; Essential hypertension I10 ; GERD (gastroesophageal reflux disease) K21.9 ; Hypothyroidism E03.9 ; Osteoarthritis M19.90 ; Low back pain, unspecified back pain laterality, unspecified chronicity, with sciatica presence unspecified M54.5 and Bilateral carotid artery disease I77.9 [place] [address] [place] [address] Oct, [place] [address] [place] [id number] [address] [place] [address] Sep, Hypothyroid E03.9 [place] [address] [place] [id number] [address] [place] [address] Sep, Schizo affective schizophren ia F25.0 ; Depression F32.9 ; Anxiety F41.9 ; Allergic rhinitis J30.9 ; Raynauds syndrome I73.00 ; Insomnia G47.00 ; Essential hypertension I10 ; GERD (gastroesophageal reflux disease) K21.9 ; Hypothyroidism E03.9 and Vitamin D deficiency E55.9 [place] [address] [address] Sep, [facility] [address] [address] Sep, [place] [address] [address] Aug, Allergic rhinitis J30.9 ; De pression F32.9 ; Anxiety F41.9 ; Raynauds syndrome I73.00 ; Insomnia G47.00 and GERD (gastroesophageal reflux disease) K21.9 [place] [address] [address] Aug, MONICA (secretory otitis media) H65.90 and Raynauds syndrome I73.00 [facility] [address] [address] Jul, Acute otitis externa of both ears, unspecified type H60.503 [place] [address] [address] Jun, [place] [address] [address] Jun, Essential hypertension I10 ; Allergic rhinitis J30.9 ; Hypothyroidism E03.9 and Osteoarthritis M19.90 [place] [address] [address] Jun, Routine adult health mainten ance Z00.00 ; Hypothyroidism E03.9 ; Essential hypertension I10 ; Insomnia G47.00 ; Nicotine addiction F17.200 ; Raynauds syndrome I73.00 ; GERD (gastroesophageal reflux disease) K21.9 ; Allergic rhinitis J30.9 ; Anxiety F41.9 ; Depression F32.9 and Schizo affective schizophrenia F25.0 [place] [address] [place] [address] May, Upper respiratory tract infe ction, unspecified type J06.9 [facility] [address] [id number] [address] [place] [address] Mar, [facility] [address] [id number] [id number] Mar, [facility] [address] [id number] [address] [place] [address] Mar, [facility] [address] [id number] [address] [place] [address] Mar, [facility] [address] [id number] [address] [place] [address] Feb, Jaw pain 784.92 and Environm ental and seasonal allergies 477.8 [facility] [address] [id number] [address] [place] [address] Feb, [facility] [address] [id number] [address] [place] [address] Oct, [facility] [address] [id number] [address] [place] [address] Oct, [facility] [address] [id number] [address] [place] [address] Oct, [facility] [address] [id number] [address] [place] [address] Oct, [facility] [address] [id number] [address] [place] [address] Sep, [facility] [address] [id number] [address] [place] [address] Sep, [facility] [address] [id number] [address] [place] [address] Jul, [facility] [address] [id number] [address] [place] [address] Jul, [facility] [address] [id number] [address] [place] [address], [place] [address] Jul, [facility] [address] [id number] [address] [place] [address], [place] [address] Jul, [facility] [address] [id number] [address] [place] [address], [place] [address] Jul, [facility] [address] [id number] [address] [place] [address], [place] [address] Jul, [facility] [address] [id number] [address] [place] [address], [place] [address] Jul, [facility] [address] [id number] [address] [place] [address], [place] [address] Jun, [facility] [address] [id number] [address] [place] [address], [place] [address] Jun, [facility] [address] [id number] [address] [place] [address], [place] [address] Jun, [facility] [address] [id number] [address] [place] [address], [place] [address] 18 Jun, 2014 [facility] [address] [id number] [address] [place] [address], [place] [address] Jun, [facility] [address] [id number] [address] [place] [address], [place] [address] 17 Jun, 2014 [facility] [address] [id number] [address] [place] [address], [place] [address] 16 Jun, 2014 [facility] [address] [id number] [address] [place] [address], [place] [address] 16 Jun, 2014 [facility] [address] [id number] [address] [place] [address], [place] [address] 30 Apr, 2014 [facility] [address] [id number] [address] [place] [address], [place] [address] Apr, [facility] [address] [id number] [address] [place] [address], [place] [address] Mar, [facility] [address] [id number] [facility] [place] [address] 17 Mar, 2014 [facility] [address] [id number] [address] [place] [address], [place] [address] Mar, [facility] [address] [id number] [address] [place] [address], [place] [address] Mar, [facility] [address] [id number] [address] [place] [address], [place] [address] Jan, [facility] [address] [id number] [address] [place] [address], [place] [address] Jan, [facility] [address] [id number] [address] [place] [address], [place] [address] Oct, [facility] [address] [id number] [address] [place] [address], [place] [address] Oct, [facility] [address] [id number] [address] [place] [address], [place] [address] Sep, [facility] [address] [id number] [address] [place] [address], [place] [address] Sep, [facility] [address] [id number] [address] [place] [address], [place] [address] Sep, [facility] [address] [id number] [address] [place] [address], [place] [address] Sep, [facility] [address] [id number] [address] [place] [address], [place] [address] Sep, [facility] [address] [id number] [address] [place] [address], [place] [address] Sep, [facility] [address] [id number] [address] [place] [address], [place] [address] Aug, [facility] [address] [id number] [address] [place] [address], [place] [address] Aug, [facility] [address] [id number] [address] [place] [address], [place] [address] Jul, [facility] [address] [id number] [address] [place] [address], [place] [address] Jul, [facility] [address] [id number] [address] [place] [address], [place] [address] Jul, [facility] [address] [id number] [address] [place] [address], [place] [address] Jul, [facility] [address] [id number] [address] [place] [address], [place] [address] Jun, [facility] [address] [id number] [address] [place] [address], [place] [address] Jun, [facility] [address] [id number] [address] [place] [address], [place] [address] May, [facility] [address] [id number] [address] [place] [address], [place] [address] May, [facility] [address] [id number] [address] [place] [address], [place] [address] Apr, [facility] [address] [id number] [address] [place] [address], [place] [address] Apr, [facility] [address] [id number] [address] [place] [address], [place] [address] Apr, [facility] [address] [id number] [address] [place] [address], [place] [address] Apr, [facility] [address] [id number] [address] [place] [address], [place] [address] Apr, [facility] [address] [id number] [address] [place] [address], [place] [address] Apr, [facility] [address] [id number] [address] [place] [address], [place] [address] 24 Mar, 2013 [facility] [address] [id number] [address] [place] [address], [place] [address] 12 Mar, 2013 [facility] [address] [id number] [address] [place] [address], [place] [address] 09 Mar, 2013 [facility] [address] [id number] [address] [place] [address], [place] [address] 05 Mar, 2013 [facility] [address] [id number] [address] [place] [address], [place] [address] 05 Mar, 2013 [facility] [address] [id number] [address] [place] [address], [place] [address] Feb, [facility] [address] [id number] [address] [place] [address], [place] [address] Feb, [facility] [address] [id number] [address] [place] [address], [place] [address] Feb, [facility] [address] [id number] [address] [place] [address], [place] [address] Feb, [facility] [address] [id number] [address] [place] [address], [place] [address] Jan, [facility] [address] [id number] [address] [place] [address], [place] [address] Jan, [facility] [address] [id number] [address] [place] [address], [place] [address] Jan, [facility] [address] [id number] [address] [place] [address], [place] [address] Jan, [facility] [address] [id number] [address] [place] [address], [place] [address] Jan, [facility] [address] [id number] [address] [place] [address], [place] [address] Jan, [facility] [address] [id number] [address] [place] [address], [place] [address] Dec, [facility] [address] [id number] [address] [place] [address], [place] [address] Dec, [facility] [address] [id number] [address] [place] [address], [place] [address] 19 Dec, 2012 [facility] [address] [id number] [address] [place] [address], [place] [address] 14 Dec, 2012 [facility] [address] [id number] [address] [place] [address], [place] [address] Dec, [facility] [address] [id number] [address] [place] [address], [place] [address] 12 Dec, 2012 [facility] [address] [id number] [address] [place] [address], [place] [address] 11 Dec, 2012 [facility] [address] [id number] [address] [place] [address], [place] [address] 07 Dec, 2012 [facility] [address] [id number] [address] [place] [address], [place] [address] 05 Dec, 2012 [facility] [address] [id number] [address] [place] [address], [place] [address] Dec, [facility] [address] [id number] [address] [place] [address], [place] [address] November, [facility] [address] [id number] [address] [place] [address], [place] [address] November, [facility] [address] [id number] [address] [place] [address], [place] [address] November, [facility] [address] [id number] [address] [place] [address], [place] [address] November, [facility] [address] [id number] [address] [place] [address], [place] [address] November, [facility] [address] [id number] [address] [place] [address], [place] [address] Oct, [facility] [address] [id number] [address] [place] [address], [place] [address] Oct, [facility] [address] [id number] [address] [place] [address], [place] [address] Oct, [facility] [address] [id number] [address] [place] [address], [place] [address] 09 Oct, 2012 [facility] [address] [id number] [address] [place] [address], [place] [address] Oct, [facility] [address] [id number] [address] [place] [address], [place] [address] Sep, [facility] [address] [id number] [address] [place] [address], [place] [address] Sep, [facility] [address] [id number] [address] [place] [address], [place] [address] 18 Sep, 2012 [facility] [address] [id number] [address] [place] [address], [place] [address] 05 Sep, 2012 [facility] [address] [id number] [address] [place] [address], [place] [address] 26 Aug, 2012 [facility] [address] [id number] [address] [place] [address], [place] [address] 18 Aug, 2012 [facility] [address] [id number] [address] [place] [address], [place] [address] 18 Aug, 2012 [facility] [address] [id number] [address] [place] [address], [place] [address] 15 Aug, 2012 [facility] [address] [id number] [address] [place] [address], [place] [address] Jun, [facility] [address] [id number] [address] [place] [address], [place] [address] Jun, [facility] [address] [id number] [address] [place] [address], [place] [address] Jun, [facility] [address] [id number] [address] [place] [address], [place] [address] Jun, [facility] [address] [id number] [address] [place] [address], [place] [address] Jun, [facility] [address] [id number] [address] [place] [address] [address] Jun, [facility] [address] [id number] [place] [address], [place] [address] Jun, [facility] [address] [id number] [address] [place] [address], [place] [address] Jun, [facility] [address] [id number] [address] [place] [address], [place] [address] Jun, [facility] [address] [id number] [address] [place] [address], [place] [address] Jun, [facility] [address] [id number] [address] [place] [address], [place] [address] May, [facility] [address] [id number] [address] [place] [address], [place] [address] May, [facility] [address] [id number] [address] [place] [address], [place] [address] May, [facility] [address] [id number] [address] [place] [address], [place] [address] May, [facility] [address] [id number] [address] [place] [address], [place] [address] 26 May, 2012 [facility] [address] [id number] [address] [place] [address], [place] [address] 16 May, 2012 [facility] [address] [id number] [address] [place] [address], [place] [address] 16 May, 2012 [facility] [address] [id number] [address] [place] [address] 14 May, 2012 [facility] [address] [id number] [address] [place] [address], [place] [address] 14 May, 2012 [facility] [address] [id number] [address] [place] [address], [place] [address] 30 Apr, 2012 [facility] [address] [id number] [address] [place] [address], [place] [address] 30 Apr, 2012 [facility] [address] [id number] [address] [place] [address], [place] [address] 17 Apr, 2012 [facility] [address] [id number] [address] [place] [address], [place] [address] 17 Apr, 2012 [facility] [address] [id number] [address] [place] [address], [place] [address] 09 Apr, 2012 [facility] [address] [id number] [address] [place] [address], [place] [address] 18 Mar, 2012 [facility] [address] [id number] [address] [place] [address], [place] [address] 17 Mar, 2012 [facility] [address] [id number] [address] [place] [address], [place] [address] 07 Mar, 2012 [facility] [address] [id number] [address] [place] [address], [place] [address] 27 Feb, 2012 [facility] [address] [id number] [address] [place] [address], [place] [address] 16 Feb, 2012 [facility] [address] [id number] [address] [place] [address], [place] [address] 15 Feb, 2012 [facility] [address] [id number] [address] [place] [address], [place] [address] 14 Feb, 2012 [facility] [address] [id number] [address] [place] [address], [place] [address] Jan, [facility] [address] [id number] [address] [place] [address], [place] [address] Jan, [facility] [address] [id number] [address] [place] [address], [place] [address] 24 Jan, 2012 [facility] [address] [id number] [address] [place] [address], [place] [address] Jan, [facility] [address] [id number] [address] [place] [address], [place] [address] 17 Jan, 2012 [facility] [address] [id number] [address] [place] [address], [place] [address] Jan, [facility] [address] [id number] [address] [place] [address], [place] [address] Dec, [facility] [address] [id number] [address] [place] [address], [place] [address] Dec, [facility] [address] [id number] [address] [place] [address], [place] [address] Dec, [facility] [address] [id number] [address] [place] [address], [place] [address] November, [facility] [address] [id number] [address] [place] [address], [place] [address] November, [facility] [address] [id number] [address] [place] [address], [place] [address] November, [facility] [address] [id number] [address] [place] [address], [place] [address] November, [facility] [address] [id number] [address] [place] [address], [place] [address] Oct, [facility] [address] [id number] [address] [place] [address], [place] [address] Oct, [facility] [address] [id number] [address] [place] [address], [place] [address] Oct, [facility] [address] [id number] [address] [place] [address], [place] [address] Sep, [facility] [address] [id number] [address] [place] [address], [place] [address] Sep, [facility] [address] [id number] [address] [place] [address], [place] [address] Aug, [facility] [address] [id number] [address] [place] [address], [place] [address] Aug, [facility] [address] [id number] [address] [place] [address], [place] [address] Aug, [facility] [address] [id number] [address] [place] [address], [place] [address] Aug, [facility] [address] [id number] [address] [place] [address], [place] [address] Jul, [facility] [address] [id number] [address] [place] [address], [place] [address] Jul, [facility] [address] [id number] [address] [place] [address], [place] [address] Jul, [facility] [address] [id number] [address] [place] [address], [place] [address] Jul, [facility] [address] [id number] [address] [place] [address], [place] [address] Jul, [facility] [address] [id number] [address] [place] [address], [place] [address] Jul, [facility] [address] [id number] [address] [place] [address], [place] [address] Jul, [facility] [address] [id number] [address] [place] [address], [place] [address] Jul, [facility] [address] [id number] [address] [place] [address], [place] [address] Jun, [facility] [address] [id number] [address] [place] [address], [place] [address] Jun, [facility] [address] [id number] [address] [place] [address], [place] [address] Jun, [facility] [address] [id number] [address] [place] [address], [place] [address] Jun, [facility] [address] [id number] [address] [place] [address], [place] [address] Jun, [facility] [address] [id number] [address] [place] [address], [place] [address] May, [facility] [address] [id number] [address] [place] [address], [place] [address] May, [facility] [address] [id number] [address] [place] [address], [place] [address] 17 May, 2011 [facility] [address] [id number] [address] [place] [address], [place] [address] 15 May, 2011 [facility] [address] [id number] [address] [place] [address], [place] [address] 08 May, 2011 [facility] [address] [id number] [address] [place] [address], [place] [address] 08 May, 2011 [facility] [address] [id number] [address] [place] [address], [place] [address] Apr, [facility] [address] [id number] [address] [place] [address], [place] [address] Apr, [facility] [address] [id number] [address] [place] [address], [place] [address] Apr, [facility] [address] [id number] [address] [place] [address], [place] [address] Feb, [facility] [address] [id number] [address] [place] [address], [place] [address] Feb, [facility] [address] [id number] [address] [place] [address], [place] [address] Oct, [facility] [address] [id number] [address] [place] [address], [place] [address] Jul, [facility] [address] [id number] [address] [place] [address], [place] [address] Jul, [facility] [address] [id number] [address] [place] [address], [place] [address] Jun, [facility] [address] [id number] [address] [place] [address], [place] [address] May, [facility] [address] [id number] [address] [place] [address], [place] [address] May, [facility] [address] [id number] [address] [place] [address] [address] May, [facility] [address] [facility] [id number] [address] [place] [address] Apr, [facility] [address] [facility] [id number] [address] [place] [address] Jan, [facility] [address] [facility] [id number] [address] [place] [address] November, IMMUNIZATIONS No Known Immunizations SOCIAL HISTORY Never Assessed REASON FOR VISIT Fibromyalgia , states the Lyrica is helping- would like increase-- Nhung Siegel RN , PHQ2, AUDIT C PLAN OF CARE Activity Details Follow Up 3 Months Reason: VITAL SIGNS Height 72 in 2017-09-15 Weight 230 lbs 2017-09-15 Temperature 98.0 degrees Fahrenheit 2017-09-15 Heart Rate 72 bpm 2017-09-15 Respiratory Rate 18 2017-09-15 BMI 31.19 kg/m2 2017-09-15 Blood pressure systolic 128 mmHg 2017-09-15 Blood pressure diastolic 78 mmHg 2017-09-15 MEDICATIONS Medication Instructions Dosage Frequency Start Date End Date Duration S tatus Melatonin 5 mg 0.5 Tablet by Oral route 1 time per day at night November, Active Baclofen 10 TAKE ONE TABLET BY MOUTH THREE TIMES A DAY WIT H FOOD OR MILK 30 Active BuPROPion HCl 300 mg Orally Once a day 1 tablet 24h Mar, Active Lyrica 100 MG Orally Three times a day 1 capsules 8h Jul, Active Lamotrigine 150 MG Orally at bedtime 1 tablet Active Iron Supplement by oral route Once a day 1 tablet 24h Active Levothyroxine Sodium 100 MCG Orally Once a day 1 tablet on an empty stomach in the morning 24h 30 days Active Sertraline HCl 100 MG Orally Once a day 1 tablet 24h Active ProAir HFA 90 mcg/actuation inhale 2 puf fs by Inhalation route every 4 hours as needed PRN shortness of breath/cough Jun, Active Vitamin D 2000 UNIT Orally twice a day 1 tablet 12h Active Ranitidine HCl 150 TAKE ONE TABLET BY M OUTH TWICE A DAY NEEDED FOR HEARTBURN FOR 14 DAYS 7 Active Loratadine 10 MG Orally Once a day 1 tablet 24h Active Montelukast Sodium 10 MG Orally at bedtime 1 tablet Active Amlodipine Besylate 5 MG Orally Once a day 1 tablet 24h Active RESULTS No Results PROCEDURES Procedure Date Ordered Result Body Site [facility] VISIT ESTABLISHED PATIENT September 15, 2017 INSTRUCTIONS MEDICATIONS ADMINISTERED No Known Medications [...]
--- OUTSIDE RECORDS SUMMARY | 2020-01-31 09:53 | XMS REPORT ---
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 Name Role Phone MADELYN WILLSON Unavailable PROBLEMS Type Condition ICD9-CM Code AMO64-CR Code Onset Dates Condition S tatus SNOMED Code Problem Schizo affective schizophrenia F25.0 Active 007245827 Problem Low back pain, unspecified b ack pain laterality, unspecified chronicity, with sciatica presence unspecified M54.5 Active 405338402 Problem Osteoarthritis M19.90 Active 20240 5006 Problem Secondary hyperparathyroidism, not elsewhere classified E21.1 Active 05994028 Problem Iron deficiency anemia, unspecified iron deficiency an emia type D50.9 Active 70856130 Problem Stage 3 chronic kidney disease N18.3 Active 360878703 Problem Bilateral carotid artery disease I77.9 Active 284529497 Problem Vitamin D deficiency E55.9 Active 26351751 Problem Fibromyalgia M79.7 Active 9848442 05 Problem GERD (gastroesophageal reflux disease) K21.9 Active 416241804 Problem Hypothyroidism E03.9 Active 70825 008 Problem Anxiety F41.9 Active 25872452 Problem Depression F32.9 Active 51245430 Problem Essential hypertension I10 Active 84394158 ALLERGIES Substance Reaction Event Type Date Status Silvadene Unknown Drug Allergy Sep, Active Penicillin V Potassium Unknown Drug Allergy Sep, Activ e Levaquin muscle/joint ache Drug Allergy Sep, Active Feldene Unknown Drug Allergy Sep, Active Cholecalciferol (vitamin D3) 50,000 Unit Capsule threw /meds labs out of whack Non Drug Allergy Sep, Active ENCOUNTERS Encounter Location Date Diagnosis [facility] [address] [facility] [id number] [address] [place] [address] 12 Dec, 2017 Fibromyalgia M79.7 ; Osteoar thritis M19.90 and Encounter for medication management Z79.899 [facility] [address] [address] November, Nausea and vomiting, intract ability of vomiting not specified, unspecified vomiting type R11.2 and Dizziness R42 [facility] [address] [address] November, Fibromyalgia M79.7 [facility] [address] [address] November, Medicare annual wellness vis it, initial Z00.00 ; Anxiety F41.9 ; Depression F32.9 ; Stage 3 chronic kidney disease N18.3 ; Fibromyalgia M79.7 ; Essential hypertension I10 ; Secondary hyperparathyroidism, not elsewhere classified E21.1 ; Osteoarthritis M19.90 ; Hypothyroidism E03.9 and Encounter for immunization Z23 [facility] [address] [address] Oct, [place] [address] [address] Oct, Sebaceous cyst L72.3 [facility] [address] [address] Sep, Low back pain, unspecified b ack pain laterality, unspecified chronicity, with sciatica presence unspecified M54.5 and Secondary hyperparathyroidism, not elsewhere classified E21.1 [facility] [address] [address] Sep, Fibromyalgia M79.7 [place] [address] [address] Sep, Fibromyalgia M79.7 ; Plantar fasciitis, bilateral M72.2 ; Essential hypertension I10 ; Depression F32.9 and Epidermoid cyst L72.0 [facility] [address] [address] Jul, [facility] [address] [address] Jul, Fibromyalgia M79.7 ; Iron de ficiency anemia, unspecified iron deficiency anemia type D50.9 and Acute nasopharyngitis J00 [facility] IN [facility] [address] [address] Jun, Sore throat J02.9 and Acute serous otitis media of left ear, recurrence not specified H65.02 [place] [address] [address] Jun, Hypothyroidism E03.9 [place] [address] [address] Jun, [place] [address] [address] Jun, Hypothyroidism E03.9 ; Essen tial hypertension I10 and Osteoarthritis M19.90 [place] [address] [address] May, [facility] [address] [address] May, [place] [address] [address] Feb, [place] [address] [address] Feb, Leonela-menopausal N95.1 and To bacco use Z72.0 [place] [address] [address] Jan, [place] [address] [address] Jan, Osteoarthritis M19.90 ; Bila teral carotid artery disease I77.9 ; Raynauds syndrome I73.00 ; Essential hypertension I10 ; Allergic rhinitis J30.9 ; Stage 3 chronic kidney disease N18.3 ; Fibromyalgia M79.7 ; Hypothyroidism E03.9 ; GERD (gastroesophageal reflux disease) K21.9 and Vitamin D deficiency E55.9 [place] [address] [id number] [address] [place] [address] Dec, Raynauds syndrome I73.00 ; P lantar fascial fibromatosis M72.2 ; Osteoarthritis M19.90 and Fibromyalgia M79.7 [facility] [address] [id number] [address] [place] [address] Dec, [facility] [address] [facility] [id number] [address] [place] [address] Dec, [facility] [address] [id number] [address] [place] [address] Oct, Function kidney decreased N2 8.9 [facility] [address] [id number] [address] [place] [id number] Oct, Dental examination Z01.20 [facility] [address] [facility] [id number] [address] [place] [address] 18 Oct, 2016 Essential hypertension I10 a nd Function kidney decreased N28.9 [facility] [address] [id number] [address] [place] [id number] Oct, Dental examination Z01.20 [facility] [address] [facility] [id number] [address] [place] [address] Oct, [facility] [address] [facility] [id number] [address] [place] [address] Sep, Other specified disorders in volving the immune mechanism D89.89 and Schizo affective schizophrenia F25.0 [facility] [address] [facility] [id number] [address] [place] [address] Sep, Schizo affective schizophren ia F25.0 [facility] [address] [facility] [id number] [address] [place] [address] Sep, Eustachian tube dysfunction, bilateral H69.83 [facility] [address] [facility] [id number] [address] [place] [address] Sep, [facility] [address] [address] 14 Sep, 2016 [facility] [address] [address] 14 Sep, 2016 [place] [address] [address] 13 Sep, 2016 Eustachian tube dysfunction, bilateral H69.83 [place] [address] [address] 09 Sep, 2016 Allergic rhinitis J30.9 ; Es sential hypertension I10 ; Hypothyroidism E03.9 and Schizo affective schizophrenia F25.0 [place] [address] [address] Jul, Eustachian tube dysfunction, bilateral H69.83 and Visit for TB skin test Z11.1 [facility] [address] [address] Jul, Subacute pansinusitis J01.40 [place] [address] [address] Jun, Schizo affective schizophren ia F25.0 ; Depression F32.9 ; Allergic rhinitis J30.9 ; Raynauds syndrome I73.00 ; Essential hypertension I10 ; Slow transit constipation K59.01 ; GERD (gastroesophageal reflux disease) K21.9 ; Hypothyroidism E03.9 ; Nicotine addiction F17.200 ; Other viral agents as the cause of diseases classified elsewhere B97.89 ; Acute upper respiratory infection, unspecified J06.9 and Osteoarthritis M19.90 [place] [address] [address] Jun, Allergic rhinitis J30.9 and GERD (gastroesophageal reflux disease) K21.9 [place] [address] [address] May, [place] [address] [address] Mar, Schizo affective schizophren ia F25.0 [place] [id number] [place] [address] Mar, Schizo affective schizophren ia F25.0 [place] [address] [place] [id number] [address] [place] [address] 15 Mar, 2016 Schizo affective schizophren ia F25.0 [place] [address] [place] [id number] [address] [place] [address] Mar, Acute non-recurrent maxillar y sinusitis J01.00 [place] [address] [place] [id number] [address] [place] [phone] Feb, Schizo affective schizophren ia F25.0 [place] [address] [place] [id number] [address] [place] [phone] Feb, Contact dermatitis and eczem a L25.9 [place] [address] [address] Jan, [place] [address] [address] Jan, Schizo affective schizophren ia F25.0 ; Slow transit constipation K59.01 ; Essential hypertension I10 ; GERD (gastroesophageal reflux disease) K21.9 ; Hypothyroidism E03.9 ; Osteoarthritis M19.90 ; Low back pain, unspecified back pain laterality, unspecified chronicity, with sciatica presence unspecified M54.5 and Bilateral carotid artery disease I77.9 [place] [id number] [place] [address] Oct, [place] [address] [place] [id number] [address] [place] [address] Sep, Hypothyroid E03.9 [place] [address] [place] [id number] [address] [place] [phone] Sep, Schizo affective schizophren ia F25.0 ; Depression F32.9 ; Anxiety F41.9 ; Allergic rhinitis J30.9 ; Raynauds syndrome I73.00 ; Insomnia G47.00 ; Essential hypertension I10 ; GERD (gastroesophageal reflux disease) K21.9 ; Hypothyroidism E03.9 and Vitamin D deficiency E55.9 [place] [address] [address] Sep, [facility] [address] [address] Sep, [place] [address] [address] Aug, Allergic rhinitis J30.9 ; De pression F32.9 ; Anxiety F41.9 ; Raynauds syndrome I73.00 ; Insomnia G47.00 and GERD (gastroesophageal reflux disease) K21.9 [place] [address] [address] Aug, MONICA (secretory otitis media) H65.90 and Raynauds syndrome I73.00 [facility] [address] [address] Jul, Acute otitis externa of both ears, unspecified type H60.503 [place] [address] [address] Jun, [place] [address] [address] Jun, Essential hypertension I10 ; Allergic rhinitis J30.9 ; Hypothyroidism E03.9 and Osteoarthritis M19.90 [place] [address] [address] Jun, Routine adult health mainten ance Z00.00 ; Hypothyroidism E03.9 ; Essential hypertension I10 ; Insomnia G47.00 ; Nicotine addiction F17.200 ; Raynauds syndrome I73.00 ; GERD (gastroesophageal reflux disease) K21.9 ; Allergic rhinitis J30.9 ; Anxiety F41.9 ; Depression F32.9 and Schizo affective schizophrenia F25.0 [place] [address] [place] [address] May, Upper respiratory tract infe ction, unspecified type J06.9 [facility] [address] [id number] [address] [place] [address] Mar, [facility] [address] [id number] [id number] Mar, [facility] [address] [id number] [address] [place] [address] Mar, [facility] [address] [id number] [address] [place] [address] Mar, [facility] [address] [id number] [address] [place] [address] Feb, Jaw pain 784.92 and Environm ental and seasonal allergies 477.8 [facility] [address] [id number] [address] [place] [address] Feb, [facility] [address] [id number] [address] [place] [address] Oct, [facility] [address] [id number] [address] [place] [phone] Oct, [facility] [address] [id number] [address] [place] [address] Oct, [facility] [address] [id number] [address] [place] [phone] Oct, [facility] [address] [id number] [address] [place] [address] Sep, [facility] [address] [id number] [address] [place] [phone] Sep, [facility] [address] [id number] [address] [place] [address] Jul, [facility] [address] [id number] [address] [place] [phone] Jul, [facility] [address] [id number] [address] [place] [address], [place] [address] Jul, [facility] [address] [id number] [address] [place] [address], [place] [address] Jul, [facility] [address] [id number] [address] [place] [address], [place] [address] Jul, [facility] [address] [id number] [address] [place] [address], [place] [address] Jul, [facility] [address] [id number] [address] [place] [address], [place] [address] Jul, [facility] [address] [id number] [address] [place] [address], [place] [address] Jun, [facility] [address] [id number] [address] [place] [address], [place] [address] Jun, [facility] [address] [id number] [address] [place] [address], [place] [address] Jun, [facility] [address] [id number] [address] [place] [address], [place] [address] 18 Jun, 2014 [facility] [address] [id number] [address] [place] [address], [place] [address] Jun, [facility] [address] [id number] [address] [place] [address], [place] [address] 17 Jun, 2014 [facility] [address] [id number] [address] [place] [address], [place] [address] 16 Jun, 2014 [facility] [address] [id number] [address] [place] [address], [place] [address] 16 Jun, 2014 [facility] [address] [id number] [address] [place] [address], [place] [address] 30 Apr, 2014 [facility] [address] [id number] [address] [place] [address], [place] [address] Apr, [facility] [address] [id number] [address] [place] [address], [place] [address] Mar, [facility] [address] [id number] [facility] [place] [address] 17 Mar, 2014 [facility] [address] [id number] [address] [place] [address], [place] [address] Mar, [facility] [address] [id number] [address] [place] [address], [place] [address] Mar, [facility] [address] [id number] [address] [place] [address], [place] [address] Jan, [facility] [address] [id number] [address] [place] [address], [place] [address] Jan, [facility] [address] [id number] [address] [place] [address], [place] [address] Oct, [facility] [address] [id number] [address] [place] [address], [place] [address] Oct, [facility] [address] [id number] [address] [place] [address], [place] [address] Sep, [facility] [address] [id number] [address] [place] [address], [place] [address] Sep, [facility] [address] [id number] [address] [place] [address], [place] [address] Sep, [facility] [address] [id number] [address] [place] [address], [place] [address] Sep, [facility] [address] [id number] [address] [place] [address], [place] [address] Sep, [facility] [address] [id number] [address] [place] [address], [place] [address] Sep, [facility] [address] [id number] [address] [place] [address], [place] [address] Aug, [facility] [address] [id number] [address] [place] [address], [place] [address] Aug, [facility] [address] [id number] [address] [place] [address], [place] [address] Jul, [facility] [address] [id number] [address] [place] [address], [place] [address] Jul, [facility] [address] [id number] [address] [place] [address], [place] [address] Jul, [facility] [address] [id number] [address] [place] [address], [place] [address] Jul, [facility] [address] [id number] [address] [place] [address], [place] [address] Jun, [facility] [address] [id number] [address] [place] [address], [place] [address] Jun, [facility] [address] [id number] [address] [place] [address], [place] [address] May, [facility] [address] [id number] [address] [place] [address], [place] [address] May, [facility] [address] [id number] [address] [place] [address], [place] [address] Apr, [facility] [address] [id number] [address] [place] [address], [place] [address] Apr, [facility] [address] [id number] [address] [place] [address], [place] [address] Apr, [facility] [address] [id number] [address] [place] [address], [place] [address] Apr, [facility] [address] [id number] [address] [place] [address], [place] [address] Apr, [facility] [address] [id number] [address] [place] [address], [place] [address] Apr, [facility] [address] [id number] [address] [place] [address], [place] [address] 24 Mar, 2013 [facility] [address] [id number] [address] [place] [address], [place] [address] 12 Mar, 2013 [facility] [address] [id number] [address] [place] [address], [place] [address] 09 Mar, 2013 [facility] [address] [id number] [address] [place] [address], [place] [address] 05 Mar, 2013 [facility] [address] [id number] [address] [place] [address], [place] [address] 05 Mar, 2013 [facility] [address] [id number] [address] [place] [address], [place] [address] Feb, [facility] [address] [id number] [address] [place] [address], [place] [address] Feb, [facility] [address] [id number] [address] [place] [address], [place] [address] Feb, [facility] [address] [id number] [address] [place] [address], [place] [address] Feb, [facility] [address] [id number] [address] [place] [address], [place] [address] Jan, [facility] [address] [id number] [address] [place] [address], [place] [address] Jan, [facility] [address] [id number] [address] [place] [address], [place] [address] Jan, [facility] [address] [id number] [address] [place] [address], [place] [address] Jan, [facility] [address] [id number] [address] [place] [address], [place] [address] Jan, [facility] [address] [id number] [address] [place] [address], [place] [address] Jan, [facility] [address] [id number] [address] [place] [address], [place] [address] Dec, [facility] [address] [id number] [address] [place] [address], [place] [address] Dec, [facility] [address] [id number] [address] [place] [address], [place] [address] 19 Dec, 2012 [facility] [address] [id number] [address] [place] [address], [place] [address] 14 Dec, 2012 [facility] [address] [id number] [address] [place] [address], [place] [address] Dec, [facility] [address] [id number] [address] [place] [address], [place] [address] 12 Dec, 2012 [facility] [address] [id number] [address] [place] [address], [place] [address] 11 Dec, 2012 [facility] [address] [id number] [address] [place] [address], [place] [address] 07 Dec, 2012 [facility] [address] [id number] [address] [place] [address], [place] [address] 05 Dec, 2012 [facility] [address] [id number] [address] [place] [address], [place] [address] Dec, [facility] [address] [id number] [address] [place] [address], [place] [address] November, [facility] [address] [id number] [address] [place] [address], [place] [address] November, [facility] [address] [id number] [address] [place] [address], [place] [address] November, [facility] [address] [id number] [address] [place] [address], [place] [address] November, [facility] [address] [id number] [address] [place] [address], [place] [address] November, [facility] [address] [id number] [address] [place] [address], [place] [address] Oct, [facility] [address] [id number] [address] [place] [address], [place] [address] Oct, [facility] [address] [id number] [address] [place] [address], [place] [address] Oct, [facility] [address] [id number] [address] [place] [address], [place] [address] 09 Oct, 2012 [facility] [address] [id number] [address] [place] [address], [place] [address] Oct, [facility] [address] [id number] [address] [place] [address], [place] [address] Sep, [facility] [address] [id number] [address] [place] [address], [place] [address] Sep, [facility] [address] [id number] [address] [place] [address], [place] [id number] 18 Sep, 2012 [facility] [address] [id number] [address] [place] [address], [place] [address] 05 Sep, 2012 [facility] [address] [id number] [address] [place] [address], [place] [address] 26 Aug, 2012 [facility] [address] [id number] [address] [place] [address], [place] [address] 18 Aug, 2012 [facility] [address] [id number] [address] [place] [address], [place] [address] 18 Aug, 2012 [facility] [address] [id number] [address] [place] [address], [place] [address] 15 Aug, 2012 [facility] [address] [id number] [address] [place] [address], [place] [address] Jun, [facility] [address] [id number] [address] [place] [address], [place] [address] Jun, [facility] [address] [id number] [address] [place] [address], [place] [address] Jun, [facility] [address] [id number] [address] [place] [address], [place] [address] Jun, [facility] [address] [address] [id number] [address] [place] [address], [place] [address] Jun, [facility] [address] [id number] [address] [place], [place] [address] [address] Jun, [facility] [address] [id number] [address] [place] [address], [place] [address] Jun, [facility] [address] [id number] [address] [place] [address], [place] [address] Jun, [facility] [address] [id number] [address] [place] [address], [place] [address] Jun, [facility] [address] [id number] [address] [place] [address], [place] [address] Jun, [facility] [address] [id number] [address] [place] [address], [place] [address] May, [facility] [address] [id number] [address] [place] [address], [place] [address] May, [facility] [address] [id number] [address] [place] [address], [place] [address] May, [facility] [address] [id number] [address] [place] [address], [place] [address] May, [facility] [address] [id number] [address] [place] [address], [place] [address] 26 May, 2012 [facility] [address] [id number] [address] [place] [address], [place] [address] 16 May, 2012 [facility] [address] [id number] [address] [place] [address], [place] [address] 16 May, 2012 [facility] [address] [id number] [address] [place] [address] 14 May, 2012 [facility] [address] [id number] [address] [place] [address], [place] [address] 14 May, 2012 [facility] [address] [id number] [address] [place] [address], [place] [address] 30 Apr, 2012 [facility] [address] [id number] [address] [place] [address], [place] [address] 30 Apr, 2012 [facility] [address] [id number] [address] [place] [address], [place] [address] 17 Apr, 2012 [facility] [address] [id number] [address] [place] [address], [place] [address] 17 Apr, 2012 [facility] [address] [id number] [address] [place] [address], [place] [address] 09 Apr, 2012 [facility] [address] [id number] [address] [place] [address], [place] [address] 18 Mar, 2012 [facility] [address] [id number] [address] [place] [address], [place] [address] 17 Mar, 2012 [facility] [address] [id number] [address] [place] [address], [place] [address] 07 Mar, 2012 [facility] [address] [id number] [address] [place] [address], [place] [address] 27 Feb, 2012 [facility] [address] [id number] [address] [place] [address], [place] [address] 16 Feb, 2012 [facility] [address] [id number] [address] [place] [address], [place] [address] 15 Feb, 2012 [facility] [address] [id number] [address] [place] [address], [place] [address] 14 Feb, 2012 [facility] [address] [id number] [address] [place] [address], [place] [address] Jan, [facility] [address] [id number] [address] [place] [address], [place] [address] Jan, [facility] [address] [id number] [address] [place] [address], [place] [address] 24 Jan, 2012 [facility] [address] [id number] [address] [place] [address], [place] [address] Jan, [facility] [address] [id number] [address] [place] [address], [place] [address] 17 Jan, 2012 [facility] [address] [id number] [address] [place] [address], [place] [address] Jan, [facility] [address] [id number] [address] [place] [address], [place] [address] Dec, [facility] [address] [id number] [address] [place] [address], [place] [address] Dec, [facility] [address] [id number] [address] [place] [address], [place] [address] Dec, [facility] [address] [id number] [address] [place] [address], [place] [address] November, [facility] [address] [id number] [address] [place] [address], [place] [address] November, [facility] [address] [id number] [address] [place] [address], [place] [address] November, [facility] [address] [id number] [address] [place] [address], [place] [address] November, [facility] [address] [id number] [address] [place] [address], [place] [address] Oct, [facility] [address] [id number] [address] [place] [address], [place] [address] Oct, [facility] [address] [id number] [address] [place] [address], [place] [address] Oct, [facility] [address] [id number] [address] [place] [address], [place] [address] Sep, [facility] [address] [id number] [address] [place] [address], [place] [address] Sep, [facility] [address] [id number] [address] [place] [address], [place] [address] Aug, [facility] [address] [id number] [address] [place] [address], [place] [address] Aug, [facility] [address] [id number] [address] [place] [address], [place] [address] Aug, [facility] [address] [id number] [address] [place] [address], [place] [address] Aug, [facility] [address] [id number] [address] [place] [address], [place] [address] Jul, [facility] [address] [id number] [address] [place] [address], [place] [address] Jul, [facility] [address] [id number] [address] [place] [address], [place] [address] Jul, [facility] [address] [id number] [address] [place] [address], [place] [address] Jul, [facility] [address] [id number] [address] [place] [address], [place] [address] Jul, [facility] [address] [id number] [address] [place] [address], [place] [address] Jul, [facility] [address] [id number] [address] [place] [address], [place] [address] Jul, [facility] [address] [id number] [address] [place] [address], [place] [address] Jul, [facility] [address] [id number] [address] [place] [address], [place] [address] Jun, [facility] [address] [id number] [address] [place] [address], [place] [address] Jun, [facility] [address] [id number] [address] [place] [address], [place] [address] Jun, [facility] [address] [id number] [address] [place] [address], [place] [address] Jun, [facility] [address] [id number] [address] [place] [address], [place] [address] Jun, [facility] [address] [id number] [address] [place] [address], [place] [address] May, [facility] [address] [id number] [address] [place] [address], [place] [address] May, [facility] [address] [id number] [address] [place] [address], [place] [address] 17 May, 2011 [facility] [address] [id number] [address] [place] [address], [place] [address] 15 May, 2011 [facility] [address] [id number] [address] [place] [address], [place] [address] 08 May, 2011 [facility] [address] [id number] [address] [place] [address], [place] [address] 08 May, 2011 [facility] [address] [id number] [address] [place] [address], [place] [address] Apr, [facility] [address] [id number] [address] [place] [address], [place] [address] Apr, [facility] [address] [id number] [address] [place] [address], [place] [address] Apr, [facility] [address] [id number] [address] [place] [address], [place] [address] Feb, [facility] [address] [id number] [address] [place] [address], [place] [address] Feb, [facility] [address] [id number] [address] [place] [address], [place] [address] Oct, [facility] [address] [id number] [address] [place] [address], [place] [address] Jul, [facility] [address] [id number] [address] [place] [address], [place] [address] Jul, [facility] [address] [id number] [address] [place] [address], [place] [address] Jun, [facility] [address] [id number] [address] [place] [address], [place] [address] May, [facility] [address] [id number] [address] [place] [address], [place] [address] May, [facility] [address] [id number] [address] [place], [place] [address] [address] May, [facility] [address] [facility] [id number] [address] [address] Apr, [facility] [address] [facility] [id number] [address] [place] [id number] Jan, [facility] [address] [facility] [id number] [address] [place] [address] November, IMMUNIZATIONS No Known Immunizations SOCIAL HISTORY Never Assessed REASON FOR VISIT Via [facility], PT went to the ER for back pain and un able to move. Due to be s cheduled for Medicare Josselin WATT PLAN OF CARE Activity Details Follow Up 3 Months Reason: VITAL SIGNS Height 72 in 2017-10-07 Weight 237.5 lbs 2017-10-07 Temperature 98.5 degrees Fahrenheit 2017-10-07 Heart Rate 68 bpm 2017-10-07 Respiratory Rate 18 2017-10-07 BMI 32.21 kg/m2 2017-10-07 Blood pressure systolic 124 mmHg 2017-10-07 Blood pressure diastolic 72 mmHg 2017-10-07 MEDICATIONS Medication Instructions Dosage Frequency Start Date End Date Duration S tatus Amlodipine Besylate 5 MG Orally Once a day 1 tablet 24h Not-Taking Vitamin D 2000 UNIT Orally twice a day 1 tablet 12h Active Sertraline HCl 100 MG Orally Once a day 1 tablet 24h Active Melatonin 5 mg 0.5 Tablet by Oral route 1 time per day at night November, Active Iron Supplement by oral route Once a day 1 tablet 24h Active Lisinopril 5 MG Orally Once a day 1 tablet 24h Active Baclofen 10 TAKE ONE TABLET BY MOUTH THREE TIMES A DAY WIT H FOOD OR MILK 30 Active Montelukast Sodium 10 MG Orally at bedtime 1 tablet Active Lamotrigine 150 MG Orally at bedtime 1 tablet Active Loratadine 10 MG Orally Once a day 1 tablet 24h Active Levothyroxine Sodium 100 MCG Orally Once a day 1 tablet on an empty stomach in the morning 24h 30 days Active BuPROPion HCl 300 mg Orally Once a day 1 tablet 24h Mar, Active Gabapentin 300 MG Orally Once a day 1 capsule before bedtime 24h Sep, 30 day(s) Not-Taking Tramadol HCl 50 MG Orally every 6 hrs 1 tablet as needed 6h Active ProAir HFA 90 mcg/actuation inhale 2 puf fs by Inhalation route every 4 hours as needed PRN shortness of breath/cough Jun, Not-Taking Ranitidine HCl 150 TAKE ONE TABLET BY M OUTH TWICE A DAY NEEDED FOR HEARTBURN FOR 14 DAYS 7 Active RESULTS No Results PROCEDURES Procedure Date Ordered Result Body Site [facility] VISIT ESTABLISHED PATIENT October 07, 2017 INSTRUCTIONS MEDICATIONS ADMINISTERED No Known Medications [...]
--- OUTSIDE RECORDS SUMMARY | 2020-01-31 09:53 | XMS REPORT ---
Author Author Ivet HUTTON Organization [facility] Address [address] [place] [address] Care Team Providers Care Admitting Supervisor Name Role Phone ANNI DELMY Unavailable PROBLEMS Type Condition ICD9-CM Code USY84-LB Code Onset Dates Condition S tatus SNOMED Code Problem Schizo affective schizophrenia F25.0 Active 529749930 Problem Low back pain, unspecified b ack pain laterality, unspecified chronicity, with sciatica presence unspecified M54.5 Active 851886935 Problem Osteoarthritis M19.90 Active 13506 5006 Problem Secondary hyperparathyroidism, not elsewhere classified E21.1 Active 61531487 Problem Iron deficiency anemia, unspecified iron deficiency an emia type D50.9 Active 14336924 Problem Stage 3 chronic kidney disease N18.3 Active 591860457 Problem Bilateral carotid artery disease I77.9 Active 465595639 Problem Vitamin D deficiency E55.9 Active 71339948 Problem Fibromyalgia M79.7 Active 2006098 05 Problem GERD (gastroesophageal reflux disease) K21.9 Active 896033400 Problem Hypothyroidism E03.9 Active 25943 008 Problem Anxiety F41.9 Active 16359770 Problem Depression F32.9 Active 77215050 Problem Essential hypertension I10 Active 39316284 ALLERGIES Substance Reaction Event Type Date Status Silvadene Unknown Drug Allergy Oct, Active Penicillin V Potassium Unknown Drug Allergy Oct, Activ e Levaquin muscle/joint ache Drug Allergy Oct, Active Feldene Unknown Drug Allergy Oct, Active Cholecalciferol (vitamin D3) 50,000 Unit Capsule threw /meds labs out of whack Non Drug Allergy Oct, Active ENCOUNTERS Encounter Location Date Diagnosis [facility] [address] [facility] [id number] [address] [address] Dec, Fibromyalgia M79.7 ; Osteoar thritis M19.90 and Encounter for medication management Z79.899 [facility] [address] [address] November, Nausea and vomiting, intract ability of vomiting not specified, unspecified vomiting type R11.2 and Dizziness R42 [facility] [address] [address] November, Fibromyalgia M79.7 [place] [address] [address] November, Medicare annual wellness vis it, initial Z00.00 ; Anxiety F41.9 ; Depression F32.9 ; Stage 3 chronic kidney disease N18.3 ; Fibromyalgia M79.7 ; Essential hypertension I10 ; Secondary hyperparathyroidism, not elsewhere classified E21.1 ; Osteoarthritis M19.90 ; Hypothyroidism E03.9 and Encounter for immunization Z23 [facility] [address] [address] Oct, [place] [address] [address] Oct, Sebaceous cyst L72.3 [place] [address] [address] Sep, Low back pain, unspecified b ack pain laterality, unspecified chronicity, with sciatica presence unspecified M54.5 and Secondary hyperparathyroidism, not elsewhere classified E21.1 [place] [address] [address] Sep, Fibromyalgia M79.7 [place] [address] [address] Sep, Fibromyalgia M79.7 ; Plantar fasciitis, bilateral M72.2 ; Essential hypertension I10 ; Depression F32.9 and Epidermoid cyst L72.0 [facility] [address] [address] Jul, [place] [address] [address] 02 [place], 2018 Fibromyalgia M79.7 ; Iron de ficiency anemia, unspecified iron deficiency anemia type D50.9 and Acute nasopharyngitis J00 [facility] [address] [address] Jun, Sore throat J02.9 and Acute serous otitis media of left ear, recurrence not specified H65.02 [facility] [address] [address] Jun, Hypothyroidism E03.9 [facility] [address] [address] Jun, [place] [address] [address] Jun, Hypothyroidism E03.9 ; Essen tial hypertension I10 and Osteoarthritis M19.90 [place] [address] [address] May, [place] [address] [address] May, [place] [address] [address] Feb, [place] [address] [address] Feb, Leonela-menopausal N95.1 and To bacco use Z72.0 [place] [address] [address] Jan, [place] [address] [address] Jan, Osteoarthritis M19.90 ; Bila teral carotid artery disease I77.9 ; Raynauds syndrome I73.00 ; Essential hypertension I10 ; Allergic rhinitis J30.9 ; Stage 3 chronic kidney disease N18.3 ; Fibromyalgia M79.7 ; Hypothyroidism E03.9 ; GERD (gastroesophageal reflux disease) K21.9 and Vitamin D deficiency E55.9 [place] [address] [place] [id number] [address] [place] [address] Dec, Raynauds syndrome I73.00 ; P lantar fascial fibromatosis M72.2 ; Osteoarthritis M19.90 and Fibromyalgia M79.7 [facility] [address] [facility] [id number] [address] [place] [address] Dec, [facility] [address] [facility] [id number] [address] [place] [address] Dec, [facility] [address] [facility] [id number] [address] [place] [address] Oct, Function kidney decreased N2 8.9 [facility] [address] [place] [id number] Oct, Dental examination Z01.20 [facility] [address] [place] [id number] [address] [place] [address] 18 Oct, 2016 Essential hypertension I10 a nd Function kidney decreased N28.9 [facility] [address] [facility] [id number] [address] [place] [id number] Oct, Dental examination Z01.20 [facility] [address] [place] [id number] [address] [place] [address] Oct, [facility] [address] [place] [id number] [address] [place] [address] 24 Sep, 2016 Other specified disorders in volving the immune mechanism D89.89 and Schizo affective schizophrenia F25.0 [facility] [address] [place] [id number] [address] [place] [address] Sep, Schizo affective schizophren ia F25.0 [facility] [address] [place] [id number] [address] [place] [address] 16 Sep, 2016 Eustachian tube dysfunction, bilateral H69.83 [facility] [address] [facility] [id number] [address] [place] [address] Sep, [facility] [address] [place] [address] 14 Sep, 2016 [facility] [address] [address] 14 Sep, 2016 [place] [address] [address] 13 Sep, 2016 Eustachian tube dysfunction, bilateral H69.83 [place] [address] [address] 09 Sep, 2016 Allergic rhinitis J30.9 ; Es sential hypertension I10 ; Hypothyroidism E03.9 and Schizo affective schizophrenia F25.0 [place] [address] [address] Jul, Eustachian tube dysfunction, bilateral H69.83 and Visit for TB skin test Z11.1 [facility] [address] [address] Jul, Subacute pansinusitis J01.40 [place] [address] [address] Jun, Schizo affective schizophren ia F25.0 ; Depression F32.9 ; Allergic rhinitis J30.9 ; Raynauds syndrome I73.00 ; Essential hypertension I10 ; Slow transit constipation K59.01 ; GERD (gastroesophageal reflux disease) K21.9 ; Hypothyroidism E03.9 ; Nicotine addiction F17.200 ; Other viral agents as the cause of diseases classified elsewhere B97.89 ; Acute upper respiratory infection, unspecified J06.9 and Osteoarthritis M19.90 [place] [address] [address] Jun, Allergic rhinitis J30.9 and GERD (gastroesophageal reflux disease) K21.9 [place] [address] [address] May, [place] [address] [address] Mar, Schizo affective schizophren ia F25.0 [place] [address] [place] [id number] [address] [place] [address] Mar, Schizo affective schizophren ia F25.0 [facility] [address] [facility] [id number] [address] [place] [address] Mar, Schizo affective schizophren ia F25.0 [place] [address] [place] [id number] [address] [place] [address] Mar, Acute non-recurrent maxillar y sinusitis J01.00 [place] [address] [place] [id number] [address] [place] [address] Feb, Schizo affective schizophren ia F25.0 [place] [address] [place] [id number] [address] [place] [address] Feb, Contact dermatitis and eczem a L25.9 [place] [address] [address] Jan, [place] [address] [address] Jan, Schizo affective schizophren ia F25.0 ; Slow transit constipation K59.01 ; Essential hypertension I10 ; GERD (gastroesophageal reflux disease) K21.9 ; Hypothyroidism E03.9 ; Osteoarthritis M19.90 ; Low back pain, unspecified back pain laterality, unspecified chronicity, with sciatica presence unspecified M54.5 and Bilateral carotid artery disease I77.9 [place] [id number] [place] [address] Oct, [place] [address] [place] [id number] [address] [place] [address] Sep, Hypothyroid E03.9 [place] [address] [place] [id number] [address] [place] [address] Sep, Schizo affective schizophren ia F25.0 ; Depression F32.9 ; Anxiety F41.9 ; Allergic rhinitis J30.9 ; Raynauds syndrome I73.00 ; Insomnia G47.00 ; Essential hypertension I10 ; GERD (gastroesophageal reflux disease) K21.9 ; Hypothyroidism E03.9 and Vitamin D deficiency E55.9 [facility] [address] [address] Sep, [facility] [address] [address] Sep, [place] [address] [address] Aug, Allergic rhinitis J30.9 ; De pression F32.9 ; Anxiety F41.9 ; Raynauds syndrome I73.00 ; Insomnia G47.00 and GERD (gastroesophageal reflux disease) K21.9 [place] [address] [address] Aug, MONICA (secretory otitis media) H65.90 and Raynauds syndrome I73.00 [facility] [address] [address] Jul, Acute otitis externa of both ears, unspecified type H60.503 [place] [address] [address] Jun, [place] [address] [address] Jun, Essential hypertension I10 ; Allergic rhinitis J30.9 ; Hypothyroidism E03.9 and Osteoarthritis M19.90 [place] [address] [address] Jun, Routine adult health mainten ance Z00.00 ; Hypothyroidism E03.9 ; Essential hypertension I10 ; Insomnia G47.00 ; Nicotine addiction F17.200 ; Raynauds syndrome I73.00 ; GERD (gastroesophageal reflux disease) K21.9 ; Allergic rhinitis J30.9 ; Anxiety F41.9 ; Depression F32.9 and Schizo affective schizophrenia F25.0 [place] [address] [address] May, Upper respiratory tract infe ction, unspecified type J06.9 [facility] [address] [id number] [address] [place] [address] Mar, [facility] [place] [facility] [address] [id number] [place] [id number] Mar, [facility] [address] [id number] [address] [place] [address] Mar, [facility] [address] [id number] [address] [place] [address] Mar, [facility] [address] [id number] [address] [place] [address] Feb, Jaw pain 784.92 and Environm ental and seasonal allergies 477.8 [facility] [address] [id number] [address] [place] [address] Feb, [facility] [address] [id number] [address] [place] [address] Oct, [facility] [address] [id number] [address] [place] [address] Oct, [facility] [address] [id number] [address] [place] [address] Oct, [facility] [address] [id number] [address] [place] [address] Oct, [facility] [address] [id number] [address] [place] [address] Sep, [facility] [address] [id number] [address] [place] [address] Sep, [facility] [address] [id number] [address] [place] [address] Jul, [facility] [address] [id number] [address] [place] [address] Jul, [facility] [address] [id number] [address] [place] [address], [place] [address] Jul, [facility] [address] [id number] [address] [place] [address], [place] [address] Jul, [facility] [address] [id number] [address] [place] [address], [place] [address] Jul, [facility] [address] [id number] [address] [place] [address], [place] [address] Jul, [facility] [address] [id number] [address] [place] [address], [place] [address] Jul, [facility] [address] [id number] [address] [place] [address], [place] [address] Jun, [facility] [address] [id number] [address] [place] [address], [place] [address] Jun, [facility] [address] [id number] [address] [place] [address], [place] [address] Jun, [facility] [address] [id number] [address] [place] [address], [place] [address] 18 Jun, 2014 [facility] [address] [id number] [address] [place] [address], [place] [address] 17 Jun, 2014 [facility] [address] [id number] [address] [place] [address], [place] [address] 17 Jun, 2014 [facility] [address] [id number] [address] [place] [address], [place] [address] 16 Jun, 2014 [facility] [address] [id number] [address] [place] [address], [place] [address] 16 Jun, 2014 [facility] [address] [id number] [address] [place] [address], [place] [address] 30 Apr, 2014 [facility] [address] [id number] [address] [place] [address], [place] [address] 30 Apr, 2014 [facility] [address] [id number] [address] [place] [address], [place] [address] 17 Mar, 2014 [facility] [address] [id number] [address] [place] [address], [place] [address] 17 Mar, 2014 [facility] [address] [id number] [address] [place] [address], [place] [address] Mar, [facility] [address] [id number] [address] [place] [address], [place] [address] Mar, [facility] [address] [id number] [address] [place] [address], [place] [address] Jan, [facility] [address] [id number] [address] [place] [address], [place] [address] Jan, [facility] [address] [id number] [address] [place] [address], [place] [address] Oct, [facility] [address] [id number] [address] [place] [address], [place] [address] Oct, [facility] [address] [id number] [address] [place] [address], [place] [address] Sep, [facility] [address] [id number] [address] [place] [address], [place] [address] Sep, [facility] [address] [id number] [address] [place] [address], [place] [address] Sep, [facility] [address] [id number] [address] [place] [address], [place] [address] Sep, [facility] [address] [id number] [address] [place] [address] Sep, [facility] [address] [id number] [address] [place] [address], [place] [address] Sep, [facility] [address] [id number] [address] [place] [address], [place] [address] Aug, [facility] [address] [id number] [address] [place] [address], [place] [address] Aug, [facility] [address] [id number] [address] [place] [address] Jul, [facility] [address] [id number] [address] [place] [address], [place] [address] Jul, [facility] [address] [id number] [address] [place] [address] Jul, [facility] [address] [id number] [address] [place] [address], [place] [address] Jul, [facility] [address] [id number] [address] [place] [address] Jun, [facility] [address] [id number] [address] [place] [address], [place] [address] Jun, [facility] [address] [id number] [address] [place] [address] May, [facility] [address] [id number] [address] [place] [address] May, [facility] [address] [id number] [address] [place] [address] Apr, [facility] [address] [id number] [address] [place] [address] Apr, [facility] [address] [id number] [address] [place] [address] Apr, [facility] [address] [id number] [address] [place] [address] Apr, [facility] [address] [id number] [address] [place] [address] Apr, [facility] [address] [id number] [address] [place] [address] Apr, [facility] [address] [id number] [address] [place] [address] 24 Mar, 2013 [facility] [address] [id number] [address] [place] [address] 12 Mar, 2013 [facility] [address] [id number] [facility] [place] [address] 09 Mar, 2012 [facility] [address] [id number] [address] [place] [address], [place] [address] 05 Mar, 2013 [facility] [address] [id number] [address] [place] [address], [place] [address] 05 Mar, 2013 [facility] [address] [id number] [address] [place] [address], [place] [address] 30 Feb, 2013 [facility] [address] [id number] [address] [place] [address], [place] [address] Feb, [facility] [address] [id number] [address] [place] [address], [place] [address] Feb, [facility] [address] [id number] [address] [place] [address], [place] [address] Feb, [facility] [address] [id number] [address] [place] [address], [place] [address] Jan, [facility] [address] [id number] [address] [place] [address], [place] [address] Jan, [facility] [address] [id number] [address] [place] [address], [place] [address] Jan, [facility] [address] [id number] [address] [place] [address], [place] [address] Jan, [facility] [address] [id number] [address] [place] [address], [place] [address] Jan, [facility] [address] [id number] [address] [place] [address], [place] [address] Jan, [facility] [address] [id number] [address] [place] [address], [place] [address] Dec, [facility] [address] [id number] [address] [place] [address], [place] [address] Dec, [facility] [address] [id number] [address] [place] [address] [address] 19 Dec, 2012 [facility] [address] [id number] [address] [place] [address], [place] [address] 14 Dec, 2012 [facility] [address] [id number] [address] [place] [address], [place] [address] 13 Dec, 2012 [facility] [address] [id number] [address] [place] [address], [place] [address] 12 Dec, 2012 [facility] [address] [id number] [address] [place] [address], [place] [address] 11 Dec, 2012 [facility] [address] [id number] [address] [place] [address], [place] [address] 07 Dec, 2012 [facility] [address] [id number] [address] [place] [address], [place] [address] 05 Dec, 2012 [facility] [address] [id number] [address] [place] [address], [place] [address] Dec, [facility] [address] [id number] [address] [place] [address], [place] [address] November, [facility] [address] [id number] [address] [place] [address], [place] [address] November, [facility] [address] [id number] [address] [place] [address], [place] [address] November, [facility] [address] [id number] [address] [place] [address], [place] [address] November, [facility] [address] [id number] [address] [place] [address], [place] [address] November, [facility] [address] [id number] [address] [place] [address], [place] [address] Oct, [facility] [address] [id number] [address] [place] [address], [place] [address] Oct, [facility] [address] [id number] [address] [place] [address], [place] [address] Oct, [facility] [address] [id number] [address] [place] [address], [place] [address] 09 Oct, 2012 [facility] [address] [id number] [address] [place] [address], [place] [address] 02 Oct, 2012 [facility] [address] [id number] [address] [place] [address], [place] [address] Sep, [facility] [address] [id number] [address] [place] [address], [place] [address] 19 Sep, 2012 [facility] [address] [id number] [address] [place] [address], [place] [address] 18 Sep, 2012 [facility] [address] [id number] [address] [place] [address], [place] [address] 05 Sep, 2012 [facility] [address] [id number] [address] [place] [address], [place] [address] 26 Aug, 2012 [facility] [address] [id number] [address] [place] [address], [place] [address] 18 Aug, 2012 [facility] [address] [id number] [address] [place] [address], [place] [address] 18 Aug, 2012 [facility] [address] [id number] [address] [place] [address], [place] [address] 15 Aug, 2012 [facility] [address] [id number] [address] [place] [address], [place] [address] Jun, [facility] [address] [id number] [address] [place] [address], [place] [address] Jun, [facility] [address] [id number] [address] [place] [address], [place] [address] Jun, [facility] [address] [id number] [address] [place] [address], [place] [address] Jun, [facility] [address] [id number] [address] [place] [address], [place] [address] Jun, [facility] [address] [id number] [address] [place] [address], [place] [address] Jun, [facility] [address] [id number] [address] [place] [address], [place] [address] Jun, [facility] [address] [id number] [address] [place] [address], [place] [address] Jun, [facility] [address] [id number] [address] [place] [address], [place] [address] Jun, [facility] [address] [id number] [address] [place] [address], [place] [address] Jun, [facility] [address] [id number] [address] [place] [address], [place] [address] 28 May, 2012 [facility] [address] [id number] [address] [place] [address], [place] [address] May, [facility] [address] [id number] [address] [place] [address], [place] [address] May, [facility] [address] [id number] [address] [place] [address], [place] [address] May, [facility] [address] [id number] [address] [place] [address], [place] [address] May, [facility] [address] [id number] [address] [place] [address] 16 May, 2012 [facility] [address] [id number] [address] [place] [address] 16 May, 2012 [facility] [address] [id number] [address] [place] [address] 14 May, 2012 [facility] [address] [id number] [address] [place] [address], [place] [address] 14 May, 2012 [facility] [address] [id number] [address] [place] [address], [place] [address] 30 Apr, 2012 [facility] [address] [id number] [address] [place] [address] 30 Apr, 2012 [facility] [address] [id number] [address] [place] [phone] 17 Apr, 2012 [facility] [address] [id number] [address] [place] [address], [place] [address] 17 Apr, 2012 [facility] [address] [id number] [address] [place] [address], [place] [address] 09 Apr, 2012 [facility] [address] [id number] [address] [place] [address], [place] [address] 18 Mar, 2012 [facility] [address] [id number] [address] [place] [address], [place] [address] 17 Mar, 2012 [facility] [address] [id number] [address] [place] [address], [place] [address] 07 Mar, 2012 [facility] [address] [id number] [address] [place] [address], [place] [address] 27 Feb, 2012 [facility] [address] [id number] [address] [place] [address], [place] [address] 16 Feb, 2012 [facility] [address] [id number] [address] [place] [address], [place] [address] 15 Feb, 2012 [facility] [address] [id number] [address] [place] [address], [place] [address] 14 Feb, 2012 [facility] [address] [id number] [address] [place] [address], [place] [address] Jan, [facility] [address] [id number] [address] [place] [address], [place] [address] Jan, [facility] [address] [id number] [address] [place] [address], [place] [address] Jan, [facility] [address] [id number] [address] [place] [address], [place] [address] Jan, [facility] [address] [id number] [address] [place] [address], [place] [address] 17 Jan, 2012 [facility] [address] [id number] [address] [place] [address], [place] [address] Jan, [facility] [address] [id number] [address] [place] [address], [place] [address] Dec, [facility] [address] [id number] [address] [place] [address], [place] [address] Dec, [facility] [address] [id number] [address] [place] [address], [place] [address] Dec, [facility] [address] [id number] [address] [place] [address], [place] [address] November, [facility] [address] [id number] [address] [place] [address], [place] [address] November, [facility] [address] [id number] [address] [place] [address], [place] [address] November, [facility] [address] [id number] [address] [place] [address], [place] [address] November, [facility] [address] [id number] [address] [place] [address], [place] [address] Oct, [facility] [address] [id number] [address] [place] [address], [place] [address] Oct, [facility] [address] [id number] [address] [place] [address], [place] [address] Oct, [facility] [address] [id number] [address] [place] [address], [place] [address] Sep, [facility] [address] [id number] [address] [place] [address], [place] [address] Sep, [facility] [address] [id number] [address] [place] [address], [place] [address] Aug, [facility] [address] [id number] [address] [place] [address], [place] [address] Aug, [facility] [address] [id number] [address] [place] [address], [place] [address] Aug, [facility] [address] [id number] [address] [place] [address], [place] [address] Aug, [facility] [address] [id number] [address] [place] [address], [place] [address] Jul, [facility] [address] [id number] [address] [place] [address], [place] [address] Jul, [facility] [address] [id number] [address] [place] [address], [place] [address] Jul, [facility] [address] [id number] [address] [place] [address], [place] [address] Jul, [facility] [address] [id number] [address] [place] [address], [place] [address] Jul, [facility] [address] [id number] [address] [place] [address], [place] [address] Jul, [facility] [address] [id number] [address] [place] [address], [place] [address] Jul, [facility] [address] [id number] [address] [place] [address], [place] [address] Jul, [facility] [address] [id number] [address] [place] [address], [place] [address] Jun, [facility] [address] [id number] [address] [place] [address], [place] [address] Jun, [facility] [address] [id number] [address] [place] [address], [place] [address] Jun, [facility] [address] [id number] [address] [place] [address], [place] [address] 08 Jun, 2011 [facility] [address] [id number] [address] [place] [address], [place] [address] Jun, [facility] [address] [id number] [address] [place] [address], [place] [address] May, [facility] [address] [id number] [address] [place] [address], [place] [address] May, [facility] [address] [id number] [address] [place] [address], [place] [address] 17 May, 2011 [facility] [address] [id number] [address] [place] [address], [place] [address] 15 May, 2011 [facility] [address] [id number] [address] [place] [address], [place] [address] May, [facility] [address] [id number] [address] [place] [address], [place] [address] May, [facility] [address] [id number] [address] [place] [address], [place] [address] Apr, [facility] [address] [id number] [address] [place] [address], [place] [address] Apr, [facility] [address] [id number] [address] [place] [address], [place] [address] Apr, [facility] [address] [id number] [address] [place] [address], [place] [address] Feb, [facility] [address] [id number] [address] [place] [address], [place] [address] Feb, [facility] [address] [id number] [address] [place] [address], [place] [address] Oct, [facility] [address] [id number] [address] [place] [address], [place] [address] Jul, [facility] [address] [id number] [address] [place] [address], [place] [address] Jul, [facility] [address] [id number] [address] [place] [address], [place] [address] Jun, [facility] [address] [id number] [address] [place] [address], [place] [address] May, [facility] [address] [id number] [address] [place] [address], [place] [address] May, [facility] [address] [id number] [address] [place] [address], [place] [address] May, [facility] [address] [facility] [id number] [address] [place] [address] Apr, [facility] [address] [facility] [id number] [address] [place] [address] Jan, [facility] [address] [facility] [id number] [address] [place] [address] November, IMMUNIZATIONS No Known Immunizations SOCIAL HISTORY Never Assessed REASON FOR VISIT Cyst removal from back of scalp-Martha WATT PLAN OF CARE Activity Details Follow Up 10 days Reason:staple remova l Future/Pending Procedure SEBACEOUS CYST REMOVAL VITAL SIGNS Height 72 in 2017-10-14 Weight 232.8 lbs 2017-10-14 Temperature 98.5 degrees Fahrenheit 2017-10-14 Heart Rate 72 bpm 2017-10-14 Respiratory Rate 18 2017-10-14 BMI 31.57 kg/m2 2017-10-14 Blood pressure systolic 132 mmHg 2017-10-14 Blood pressure diastolic 78 mmHg 2017-10-14 MEDICATIONS Medication Instructions Dosage Frequency Start Date End Date Duration S tatus Montelukast Sodium 10 MG Orally at bedtime 1 tablet Active Gabapentin 300 MG Orally Once a day 1 capsule before bedtime 24h Sep, 30 day(s) Not-Taking Levothyroxine Sodium 100 MCG Orally Once a day 1 tablet on an empty stomach in the morning 24h 30 days Active Ranitidine HCl 150 TAKE ONE TABLET BY M OUTH TWICE A DAY NEEDED FOR HEARTBURN FOR 14 DAYS 7 Active Amlodipine Besylate 5 MG Orally Once a day 1 tablet 24h Not-Taking BuPROPion HCl 300 mg Orally Once a day 1 tablet 24h Mar, Active Lamotrigine 150 MG Orally at bedtime 1 tablet Active Tramadol HCl 50 MG Orally every 6 hrs 1 tablet as needed 6h Active Lisinopril 5 MG Orally Once a day 1 tablet 24h Active ProAir HFA 90 mcg/actuation inhale 2 puf fs by Inhalation route every 4 hours as needed PRN shortness of breath/cough Jun, Not-Taking Melatonin 5 mg 0.5 Tablet by Oral route 1 time per day at night November, Active Baclofen 10 TAKE ONE TABLET BY MOUTH THREE TIMES A DAY WIT H FOOD OR MILK 30 Active Iron Supplement by oral route Once a day 1 tablet 24h Active Sertraline HCl 100 MG Orally Once a day 1 tablet 24h Active Vitamin D 2000 UNIT Orally twice a day 1 tablet 12h Active Loratadine 10 MG Orally Once a day 1 tablet 24h Active RESULTS No Results PROCEDURES Procedure Date Ordered Result Body Site [facility] VISIT ESTABLISHED PATIENT October 14, 2017 INSTRUCTIONS MEDICATIONS ADMINISTERED No Known Medications [...]
--- OUTSIDE RECORDS SUMMARY | 2020-01-31 09:53 | XMS REPORT ---
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 Cement Block Maker Name Role Phone MADELYN WILLSON Unavailable PROBLEMS Type Condition ICD9-CM Code NLR63-PD Code Onset Dates Condition S tatus SNOMED Code Problem Schizo affective schizophrenia F25.0 Active 734459857 Problem Low back pain, unspecified b ack pain laterality, unspecified chronicity, with sciatica presence unspecified M54.5 Active 023704570 Problem Osteoarthritis M19.90 Active 69596 5006 Problem Secondary hyperparathyroidism, not elsewhere classified E21.1 Active 85961723 Problem Iron deficiency anemia, unspecified iron deficiency an emia type D50.9 Active 72702483 Problem Stage 3 chronic kidney disease N18.3 Active 405092830 Problem Bilateral carotid artery disease I77.9 Active 866520975 Problem Vitamin D deficiency E55.9 Active 97302006 Problem Fibromyalgia M79.7 Active 5663924 05 Problem GERD (gastroesophageal reflux disease) K21.9 Active 551338661 Problem Hypothyroidism E03.9 Active 12085 008 Problem Anxiety F41.9 Active 30864103 Problem Depression F32.9 Active 96220651 Problem Essential hypertension I10 Active 73376404 ALLERGIES No Information ENCOUNTERS Encounter Location Date Diagnosis [facility] [address] [place] [address] Dec, Fibromyalgia M79.7 ; Osteoar thritis M19.90 and Encounter for medication management Z79.899 [facility] [address] [place] [id number] [address] [place] [address] November, Nausea and vomiting, intract ability of vomiting not specified, unspecified vomiting type R11.2 and Dizziness R42 [facility] [address] [place] [id number] [address] [place] [address] November, Fibromyalgia M79.7 [facility] [address] [address] November, Medicare annual wellness vis it, initial Z00.00 ; Anxiety F41.9 ; Depression F32.9 ; Stage 3 chronic kidney disease N18.3 ; Fibromyalgia M79.7 ; Essential hypertension I10 ; Secondary hyperparathyroidism, not elsewhere classified E21.1 ; Osteoarthritis M19.90 ; Hypothyroidism E03.9 and Encounter for immunization Z23 [facility] [address] [address] Oct, [place] [address] [address] Oct, Sebaceous cyst L72.3 [place] [address] [address] Sep, Low back pain, unspecified b ack pain laterality, unspecified chronicity, with sciatica presence unspecified M54.5 and Secondary hyperparathyroidism, not elsewhere classified E21.1 [facility] [address] [address] Sep, Fibromyalgia M79.7 [place] [address] [address] Sep, Fibromyalgia M79.7 ; Plantar fasciitis, bilateral M72.2 ; Essential hypertension I10 ; Depression F32.9 and Epidermoid cyst L72.0 [place] [address] [address] Jul, [place] [address] [address] Jul, Fibromyalgia M79.7 ; Iron de ficiency anemia, unspecified iron deficiency anemia type D50.9 and Acute nasopharyngitis J00 [facility] [address] [place] [id number] [address] [place] [address] Jun, Sore throat J02.9 and Acute serous otitis media of left ear, recurrence not specified H65.02 [place] [address] [address] Jun, Hypothyroidism E03.9 [place] [address] [address] Jun, [place] [address] [address] Jun, Hypothyroidism E03.9 ; Essen tial hypertension I10 and Osteoarthritis M19.90 [place] [address] [address] May, [place] [address] [address] May, [place] [address] [address] Feb, [place] [address] [address] Feb, Leonela-menopausal N95.1 and To bacco use Z72.0 [place] [address] [address] Jan, [place] [address] [address] Jan, Osteoarthritis M19.90 ; Bila teral carotid artery disease I77.9 ; Raynauds syndrome I73.00 ; Essential hypertension I10 ; Allergic rhinitis J30.9 ; Stage 3 chronic kidney disease N18.3 ; Fibromyalgia M79.7 ; Hypothyroidism E03.9 ; GERD (gastroesophageal reflux disease) K21.9 and Vitamin D deficiency E55.9 [place] [address] [address] Dec, Raynauds syndrome I73.00 ; P lantar fascial fibromatosis M72.2 ; Osteoarthritis M19.90 and Fibromyalgia M79.7 [place] [address] [address] Dec, [facility] [address] [id number] [address] [place] [address] Dec, [facility] [address] [id number] [address] [place] [address] Oct, Function kidney decreased N2 8.9 [facility] [address] [id number] [address] [place] [id number] Oct, Dental examination Z01.20 [facility] [address] [id number] [address] [place] [address] 18 Oct, 2016 Essential hypertension I10 a nd Function kidney decreased N28.9 [facility] [address] [id number] [address] [place] [address] [id number] Oct, Dental examination Z01.20 [facility] [address] [id number] [address] [place] [address] Oct, [facility] [address] [facility] [id number] [address] [place] [address] 24 Sep, 2016 Other specified disorders in volving the immune mechanism D89.89 and Schizo affective schizophrenia F25.0 [facility] [address] [facility] [id number] [address] [place] [address] 21 Sep, 2016 Schizo affective schizophren ia F25.0 [facility] [address] [id number] [address] [place] [address] 16 Sep, 2016 Eustachian tube dysfunction, bilateral H69.83 [facility] [address] [id number] [address] [place] [address] 15 Sep, 2016 [facility] [address] [facility] [id number] [address] [place] [address] 14 Sep, 2016 [facility] [address] [facility] [id number] [address] [place] [address] 14 Sep, 2016 [facility] [address] [facility] [id number] [address] [place] [address] 13 Sep, 2016 Eustachian tube dysfunction, bilateral H69.83 [facility] [address] [place] [id number] [address] [place] [address] Sep, Allergic rhinitis J30.9 ; Es sential hypertension I10 ; Hypothyroidism E03.9 and Schizo affective schizophrenia F25.0 [facility] [address] [place] [id number] [place] [address] Jul, Eustachian tube dysfunction, bilateral H69.83 and Visit for TB skin test Z11.1 [facility] [address] [place] [id number] [place] [address] Jul, Subacute pansinusitis J01.40 [place] [address] [address] Jun, Schizo affective schizophren ia F25.0 ; Depression F32.9 ; Allergic rhinitis J30.9 ; Raynauds syndrome I73.00 ; Essential hypertension I10 ; Slow transit constipation K59.01 ; GERD (gastroesophageal reflux disease) K21.9 ; Hypothyroidism E03.9 ; Nicotine addiction F17.200 ; Other viral agents as the cause of diseases classified elsewhere B97.89 ; Acute upper respiratory infection, unspecified J06.9 and Osteoarthritis M19.90 [facility] [address] [place] [id number] [address] [place] [address] Jun, Allergic rhinitis J30.9 and GERD (gastroesophageal reflux disease) K21.9 [place] [address] [place] [address] May, [place] [address] [place] [id number] [address] [place] [address] Mar, Schizo affective schizophren ia F25.0 [place] [address] [place] [id number] [address] [place] [address] Mar, Schizo affective schizophren ia F25.0 [place] [address] [place] [id number] [address] [place] [address] 15 Mar, 2016 Schizo affective schizophren ia F25.0 [place] [id number] [place] [id number] [address] [place] [address] Mar, Acute non-recurrent maxillar y sinusitis J01.00 [place] [address] [place] [id number] [address] [place] [address] Feb, Schizo affective schizophren ia F25.0 [place] [address] [address] Feb, Contact dermatitis and eczem a L25.9 [place] [address] [address] Jan, [place] [address] [address] Jan, Schizo affective schizophren ia F25.0 ; Slow transit constipation K59.01 ; Essential hypertension I10 ; GERD (gastroesophageal reflux disease) K21.9 ; Hypothyroidism E03.9 ; Osteoarthritis M19.90 ; Low back pain, unspecified back pain laterality, unspecified chronicity, with sciatica presence unspecified M54.5 and Bilateral carotid artery disease I77.9 [place] [address] [address] Oct, [place] [address] [address] Sep, Hypothyroid E03.9 [place] [address] [address] Sep, Schizo affective schizophren ia F25.0 ; Depression F32.9 ; Anxiety F41.9 ; Allergic rhinitis J30.9 ; Raynauds syndrome I73.00 ; Insomnia G47.00 ; Essential hypertension I10 ; GERD (gastroesophageal reflux disease) K21.9 ; Hypothyroidism E03.9 and Vitamin D deficiency E55.9 [place] [address] [place] [id number] [address] [place] [address] Sep, [place] [address] [place] [address] Sep, [place] [address] [address] Aug, Allergic rhinitis J30.9 ; De pression F32.9 ; Anxiety F41.9 ; Raynauds syndrome I73.00 ; Insomnia G47.00 and GERD (gastroesophageal reflux disease) K21.9 [place] [address] [address] Aug, MONICA (secretory otitis media) H65.90 and Raynauds syndrome I73.00 [facility] [address] [address] Jul, Acute otitis externa of both ears, unspecified type H60.503 [place] [address] [address] Jun, [place] [address] [address] Jun, Essential hypertension I10 ; Allergic rhinitis J30.9 ; Hypothyroidism E03.9 and Osteoarthritis M19.90 [place] [address] [address] Jun, Routine adult health mainten ance Z00.00 ; Hypothyroidism E03.9 ; Essential hypertension I10 ; Insomnia G47.00 ; Nicotine addiction F17.200 ; Raynauds syndrome I73.00 ; GERD (gastroesophageal reflux disease) K21.9 ; Allergic rhinitis J30.9 ; Anxiety F41.9 ; Depression F32.9 and Schizo affective schizophrenia F25.0 [place] [address] [address] May, Upper respiratory tract infe ction, unspecified type J06.9 [place] [address] [place] [id number] [place] [address] Mar, [facility] [id number] [place], [facility] [id number] Mar, [facility] [address] [id number] [address] [place] [address], [place] [address] Mar, [facility] [address] [id number] [address] [place] [address], [place] [address] Mar, [facility] [address] [id number] [address] [place] [address], [place] [address] Feb, Jaw pain 784.92 and Environm ental and seasonal allergies 477.8 [facility] [address] [id number] [address] [place] [address], [place] [address] Feb, [facility] [address] [id number] [address] [place] [address], [place] [address] Oct, [facility] [address] [id number] [address] [place] [address], [place] [address] Oct, [facility] [address] [id number] [address] [place] [address], [place] [address] Oct, [facility] [address] [id number] [address] [place] [address], [place] [address] Oct, [facility] [address] [id number] [address] [place] [address] Sep, [facility] [address] [id number] [address] [place] [address] Sep, [facility] [address] [id number] [address] [place] [address] Jul, [facility] [address] [id number] [address] [place] [address] Jul, [facility] [address] [id number] [address] [place] [address] Jul, [facility] [address] [id number] [address] [place] [address] Jul, [facility] [address] [id number] [address] [place] [address] Jul, [facility] [address] [id number] [address] [place] [address], [place] [address] Jul, [facility] [address] [id number] [address] [place] [address], [place] [address] Jul, [facility] [address] [id number] [address] [place] [address], [place] [address] Jun, [facility] [address] [id number] [address] [place] [address], [place] [address] Jun, [facility] [address] [id number] [address] [place] [address], [place] [address] Jun, [facility] [address] [id number] [address] [place] [address], [place] [address] 18 Jun, 2014 [facility] [address] [id number] [address] [place] [address], [place] [address] 17 Jun, 2014 [facility] [address] [id number] [address] [place] [address], [place] [address] 17 Jun, 2014 [facility] [address] [id number] [address] [place] [address], [place] [address] 16 Jun, 2014 [facility] [address] [id number] [address] [place] [address], [place] [address] Jun, [facility] [address] [id number] [address] [place] [address], [place] [address] 30 Apr, 2014 [facility] [address] [id number] [address] [place] [address], [place] [address] 30 Apr, 2014 [facility] [address] [id number] [address] [place] [address], [place] [address] 17 Mar, 2014 [facility] [address] [id number] [address] [place] [address], [place] [address] 17 Mar, 2014 [facility] [address] [id number] [address] [place] [address], [place] [address] Mar, [facility] [address] [id number] [address] [place] [address], [place] [address] Mar, [facility] [address] [id number] [address] [place] [address], [place] [address] Jan, [facility] [address] [id number] [address] [place] [address], [place] [address] Jan, [facility] [address] [id number] [address] [place] [address], [place] [address] Oct, [facility] [address] [id number] [address] [place] [address], [place] [address] Oct, [facility] [address] [id number] [address] [place] [address], [place] [address] Sep, [facility] [address] [id number] [address] [place] [address], [place] [address] Sep, [facility] [address] [id number] [address] [place] [address], [place] [address] Sep, [facility] [address] [id number] [address] [place] [address], [place] [address] Sep, [facility] [address] [id number] [address] [place] [address], [place] [address] Sep, [facility] [address] [id number] [address] [place] [address], [place] [address] Sep, [facility] [address] [id number] [address] [place] [address], [place] [address] Aug, [facility] [address] [id number] [address] [place] [address], [place] [address] Aug, [facility] [address] [id number] [address] [place] [address], [place] [address] Jul, [facility] [address] [id number] [address] [place] [address], [place] [address] Jul, [facility] [address] [id number] [address] [place] [address], [place] [address] Jul, [facility] [address] [id number] [address] [place] [address], [place] [address] Jul, [facility] [address] [id number] [address] [place] [address], [place] [address] Jun, [facility] [address] [id number] [address] [place] [address], [place] [address] Jun, [facility] [address] [id number] [address] [place] [address], [place] [address] May, [facility] [address] [id number] [address] [place] [address], [place] [address] May, [facility] [address] [id number] [address] [place] [address], [place] [address] Apr, [facility] [address] [id number] [address] [place] [address], [place] [address] Apr, [facility] [address] [id number] [address] [place] [address], [place] [address] Apr, [facility] [address] [id number] [address] [place] [address], [place] [address] Apr, [facility] [address] [id number] [address] [place] [address] Apr, [facility] [address] [id number] [address] [place] [address] Apr, [facility] [address] [id number] [address] [place] [address] 24 Mar, 2013 [facility] [address] [id number] [address] [place] [address], [place] [address] 12 Mar, 2013 [facility] [address] [id number] [address] [place] [address], [place] [address] 09 Mar, 2013 [facility] [address] [id number] [address] [place] [address] 05 Mar, 2013 [facility] [address] [id number] [address] [place] [address] 05 Mar, 2013 [facility] [address] [id number] [address] [place] [address], [place] [address] Feb, [facility] [address] [id number] [address] [place] [address], [place] [address] Feb, [facility] [address] [id number] [address] [place] [address], [place] [address] Feb, [facility] [address] [id number] [address] [place] [address], [place] [address] Feb, [facility] [address] [id number] [address] [place] [address], [place] [address] Jan, [facility] [address] [id number] [address] [place] [address], [place] [address] Jan, [facility] [address] [id number] [address] [place] [address], [place] [address] 16 Jan, 2013 [facility] [address] [id number] [address] [place] [address], [place] [address] Jan, [facility] [address] [id number] [address] [place] [address], [place] [address] Jan, [facility] [address] [id number] [address] [place] [address], [place] [address] Jan, [facility] [address] [id number] [address] [place] [address], [place] [address] Dec, [facility] [address] [id number] [address] [place] [address], [place] [address] Dec, [facility] [address] [id number] [address] [place] [address], [place] [address] Dec, [facility] [address] [id number] [address] [place] [address], [place] [address] 14 Dec, 2012 [facility] [address] [id number] [address] [place] [address], [place] [address] 13 Dec, 2012 [facility] [address] [id number] [address] [place] [address], [place] [address] 12 Dec, 2012 [facility] [address] [id number] [address] [place] [address], [place] [address] Dec, [facility] [address] [id number] [address] [place] [address], [place] [id number] 07 Dec, 2012 [facility] [address] [id number] [address] [place] [address], [place] [id number] 05 Dec, 2012 [facility] [address] [id number] [address] [place] [address], [place] [address] Dec, [facility] [address] [id number] [address] [place] [address], [place] [address] November, [facility] [address] [id number] [address] [place] [address], [place] [address] November, [facility] [address] [id number] [address] [place] [address], [place] [address] November, [facility] [address] [id number] [address] [place] [address], [place] [address] November, [facility] [address] [id number] [address] [place] [address], [place] [address] November, [facility] [address] [id number] [address] [place] [address], [place] [address] Oct, [facility] [address] [id number] [address] [place] [address], [place] [address] Oct, [facility] [address] [id number] [address] [place] [address], [place] [address] Oct, [facility] [address] [id number] [address] [place] [address], [place] [address] Oct, [facility] [address] [id number] [address] [place] [address], [place] [address] Oct, [facility] [address] [id number] [address] [place] [address], [place] [address] Sep, [facility] [address] [id number] [address] [place] [address], [place] [address] Sep, [facility] [address] [id number] [address] [place] [address], [place] [id number] 18 Sep, 2012 [facility] [address] [id number] [address] [place] [address], [place] [id number] 05 Sep, 2012 [facility] [address] [id number] [address] [place] [address], [place] [id number] 26 Aug, 2012 [facility] [address] [id number] [address] [place] [address], [place] [address] Aug, [facility] [address] [id number] [address] [place] [address], [place] [id number] 18 Aug, 2012 [facility] [address] [id number] [address] [place] [address], [place] [id number] 15 Aug, 2012 [facility] [address] [id number] [address] [place] [address], [place] [address] Jun, [facility] [address] [id number] [address] [place] [address], [place] [address] Jun, [facility] [address] [id number] [address] [place] [address], [place] [address] Jun, [facility] [address] [id number] [address] [place] [address], [place] [address] Jun, [facility] [address] [id number] [address] [place] [address], [place] [address] Jun, [facility] [address] [id number] 26 [place] [address], [place] [address] Jun, [facility] [address] [id number] [address] [place] [address], [place] [address] Jun, [facility] [address] [id number] [address] [place] [address], [place] [address] Jun, [facility] [address] [id number] [address] [place] [address], [place] [address] Jun, [facility] [address] [id number] [address] [place] [address], [place] [address] Jun, [facility] [address] [id number] [address] [place] [address], [place] [address] 28 May, 2012 [facility] [address] [id number] [address] [place] [address], [place] [address] 27 May, 2012 [facility] [address] [id number] [address] [place] [address], [place] [address] 27 May, 2012 [facility] [address] [id number] [address] [place] [address], [place] [address] May, [facility] [address] [id number] [address] [place] [address], [place] [address] May, [facility] [address] [id number] [address] [place] [address], [place] [address] 16 May, 2012 [facility] [address] [id number] [address] [place] [address], [place] [address] 16 May, 2012 [facility] [address] [id number] [address] [place] [address], [place] [address] 14 May, 2012 [facility] [address] [id number] [address] [place] [address], [place] [address] 14 May, 2012 [facility] [address] [id number] [address] [place] [address], [place] [address] 30 Apr, 2012 [facility] [address] [id number] [address] [place] [address], [place] [address] 30 Apr, 2012 [facility] [address] [id number] [address] [place] [address], [place] [address] 17 Apr, 2012 [facility] [address] [id number] [address] [place] [address], [place] [address] 17 Apr, 2012 [facility] [address] [id number] [address] [place] [address], [place] [address] 09 Apr, 2012 [facility] [address] [id number] [address] [place] [address], [place] [address] 18 Mar, 2012 [facility] [address] [id number] [address] [place] [address], [place] [address] 17 Mar, 2012 [facility] [address] [id number] [address] [place] [address], [place] [address] 07 Mar, 2012 [facility] [address] [id number] [address] [place] [address], [place] [address] 27 Feb, 2012 [facility] [address] [id number] [address] [place] [address], [place] [address] 16 Feb, 2012 [facility] [address] [id number] [address] [place] [address], [place] [address] 15 Feb, 2012 [facility] [address] [id number] [address] [place] [address], [place] [address] 14 Feb, 2012 [facility] [address] [id number] [address] [place] [address], [place] [address] Jan, [facility] [address] [id number] [address] [place] [address], [place] [address] Jan, [facility] [address] [id number] [address] [place] [address], [place] [address] Jan, [facility] [address] [id number] [address] [place] [address], [place] [address] Jan, [facility] [address] [id number] [address] [place] [address], [place] [address] Jan, [facility] [address] [id number] [address] [place] [address], [place] [address] Jan, [facility] [address] [id number] [address] [place] [address], [place] [address] Dec, [facility] [address] [id number] [address] [place] [address], [place] [address] 14 Dec, 2011 [facility] [address] [id number] [address] [place] [address] Dec, [facility] [address] [id number] [address] [place] [address], [place] [address] November, [facility] [address] [id number] [address] [place] [address], [place] [address] November, [facility] [address] [id number] [address] [place] [address], [place] [address] November, [facility] [address] [id number] [address] [place] [address], [place] [address] November, [facility] [address] [id number] [address] [place] [address], [place] [address] Oct, [facility] [address] [id number] [address] [place] [address], [place] [address] Oct, [facility] [address] [id number] [address] [place] [address], [place] [address] Oct, [facility] [address] [id number] [address] [place] [address], [place] [address] Sep, [facility] [address] [id number] [address] [place] [address], [place] [address] Sep, [facility] [address] [id number] [address] [place] [address], [place] [address] Aug, [facility] [address] [id number] [address] [place] [address], [place] [address] Aug, [facility] [address] [id number] [address] [place] [address], [place] [address] Aug, [facility] [address] [id number] [address] [place] [address], [place] [address] Aug, [facility] [address] [id number] [address] [place] [address], [place] [address] Jul, [facility] [address] [id number] [address] [place] [address], [place] [address] Jul, [facility] [address] [id number] [address] [place] [address], [place] [address] Jul, [facility] [address] [id number] [address] [place] [address], [place] [address] Jul, [facility] [address] [id number] [address] [place] [address], [place] [address] Jul, [facility] [address] [id number] [address] [place] [address], [place] [address] Jul, [facility] [address] [id number] [address] [place] [address], [place] [address] Jul, [facility] [address] [id number] [address] [place] [address], [place] [address] Jul, [facility] [address] [id number] [address] [place] [address], [place] [address] Jun, [facility] [address] [id number] [address] [place] [address], [place] [address] Jun, [facility] [address] [id number] [address] [place] [address], [place] [address] Jun, [facility] [address] [id number] [address] [place] [address], [place] [address] 08 Jun, 2011 [facility] [address] [id number] [address] [place] [address], [place] [address] Jun, [facility] [address] [id number] [address] [place] [address], [place] [address] May, [facility] [address] [id number] [address] [place] [address], [place] [address] May, [facility] [address] [id number] [address] [place] [address], [place] [id number] 17 May, 2011 [facility] [address] [id number] [address] [place] [address], [place] [address] 15 May, 2011 [facility] [address] [id number] [address] [place] [address], [place] [address] 08 May, 2011 [facility] [address] [id number] [address] [place] [address], [place] [address] 08 May, 2011 [facility] [address] [id number] [address] [place] [address], [place] [address] Apr, [facility] [address] [id number] [address] [place] [address], [place] [address] Apr, [facility] [address] [id number] [address] [place] [address], [place] [address] Apr, [facility] [address] [id number] [address] [place] [address], [place] [address] Feb, [facility] [address] [id number] [address] [place] [address], [place] [address] Feb, [facility] [address] [id number] [address] [place] [address], [place] [address] Oct, [facility] [address] [id number] [address] [place] [address], [place] [address] Jul, [facility] [address] [id number] [address] [place] [address], [place] [address] Jul, [facility] [address] [id number] [address] [place] [address], [place] [address] Jun, [facility] [address] [id number] [address] [place] [address], [place] [address] May, [facility] [address] [id number] [address] [place] [address] May, [facility] [address] [id number] [address] [place] [address], [place] [address] May, [facility] [address] [id number] [address] [place] [address], [place] [address] Apr, [facility] [address] [id number] [address] [place] [address], [place] [address] Jan, [facility] [address] [id number] [address] [place] [address] November, IMMUNIZATIONS No Known Immunizations SOCIAL HISTORY Never Assessed REASON FOR VISIT Lyrica problems PLAN OF CARE VITAL SIGNS MEDICATIONS Medication Instructions Dosage Frequency Start Date End Date Duration S barry Gabapentin 300 MG Orally Once a day [...]
--- OUTSIDE RECORDS SUMMARY | 2020-01-31 09:54 | XMS REPORT ---
Author Author Ivet Arce Organization [facility] [place] Address [address] [place] [address] Care Team Providers Care Powerhouse Operator Name Role Phone SEA Arce Unavailable PROBLEMS Type Condition ICD9-CM Code [id number] Code Onset Dates Condition S tatus SNOMED Code Problem Schizo affective schizophrenia F25.0 Active 075097055 Problem Low back pain, unspecified b ack pain laterality, unspecified chronicity, with sciatica presence unspecified M54.5 Active 858802700 Problem Osteoarthritis M19.90 Active 07878 5006 Problem Secondary hyperparathyroidism, not elsewhere classified E21.1 Active 94214424 Problem Iron deficiency anemia, unspecified iron deficiency an emia type D50.9 Active 34122058 Problem Stage 3 chronic kidney disease N18.3 Active 424718365 Problem Bilateral carotid artery disease I77.9 Active 242164471 Problem Vitamin D deficiency E55.9 Active 72496216 Problem Fibromyalgia M79.7 Active 5147363 05 Problem GERD (gastroesophageal reflux disease) K21.9 Active 747860028 Problem Hypothyroidism E03.9 Active 84387 008 Problem Anxiety F41.9 Active 71794916 Problem Depression F32.9 Active 42865050 Problem Essential hypertension I10 Active 89965805 ALLERGIES No Information ENCOUNTERS Encounter Location Date Diagnosis [facility] [place] [address] [id number] [address] [place] [address] November, Medicare annual wellness vis it, initial Z00.00 [facility] [place] [address] [id number] [address] [place] [address] Oct, [facility] [place] [address] [facility]NOTE 3] [id number] [address] [place] [address] 03 Oct, 2017 Sebaceous cyst L72.3 [facility] [place] [address] [id number] [address] [place] [address] Sep, Low back pain, unspecified b ack pain laterality, unspecified chronicity, with sciatica presence unspecified M54.5 and Secondary hyperparathyroidism, not elsewhere classified E21.1 [facility] [place] [address] [id number] [address] [place] [address] Sep, Fibromyalgia M79.7 [facility] [place] [address] [address] 05 Sep, 2017 Fibromyalgia M79.7 ; Plantar fasciitis, bilateral M72.2 ; Essential hypertension I10 ; Depression F32.9 and Epidermoid cyst L72.0 [place] [address] [address] Jul, [facility] [place] [address] [address] Jul, Fibromyalgia M79.7 ; Iron de ficiency anemia, unspecified iron deficiency anemia type D50.9 and Acute nasopharyngitis J00 [facility] [address] [id number] [address] [place] [address] Jun, Sore throat J02.9 and Acute serous otitis media of left ear, recurrence not specified H65.02 [facility] [place] [address] [id number] [address] [place] [address] Jun, Hypothyroidism E03.9 [facility] [place] [address] [address] Jun, [place] [address] [address] Jun, Hypothyroidism E03.9 ; Essen tial hypertension I10 and Osteoarthritis M19.90 [facility] [place] [address] [id number] [address] [place] [address] May, [facility] [place] [address] [address] May, [facility] [place] [address] [address] Feb, [place] [address] [address] Feb, Leonela-menopausal N95.1 and To bacco use Z72.0 [facility] [place] [address] [address] Jan, [place] [address] [address] Jan, Osteoarthritis M19.90 ; Bila teral carotid artery disease I77.9 ; Raynauds syndrome I73.00 ; Essential hypertension I10 ; Allergic rhinitis J30.9 ; Stage 3 chronic kidney disease N18.3 ; Fibromyalgia M79.7 ; Hypothyroidism E03.9 ; GERD (gastroesophageal reflux disease) K21.9 and Vitamin D deficiency E55.9 [place] [address] [address] Dec, Raynauds syndrome I73.00 ; P lantar fascial fibromatosis M72.2 ; Osteoarthritis M19.90 and Fibromyalgia M79.7 [place] [address] [address] Dec, [place] [address] [address] Dec, [place] [address] [address] Oct, Function kidney decreased N2 8.9 [facility] [address] [id number] [address] [place] [id number] Oct, Dental examination Z01.20 [place] [address] [address] Oct, Essential hypertension I10 a nd Function kidney decreased N28.9 [facility] [address] [facility] [id number] [address] [place] [address] [id number] Oct, Dental examination Z01.20 [facility] [place] [address] [facility]] [id number] [address] [place] [address] 03 Oct, 2016 [facility] [place] [address] [facility] 3] [id number] [address] [place] [address] 24 Sep, 2016 Other specified disorders in volving the immune mechanism D89.89 and Schizo affective schizophrenia F25.0 [facility] [place] [address] [facility]] [id number] [address] [place] [address] 21 Sep, 2016 Schizo affective schizophren ia F25.0 [facility] [place] [address] [facility]] [id number] [address] [place] [address] 16 Sep, 2016 Eustachian tube dysfunction, bilateral H69.83 [place] [address] [address] [facility]] [id number] [address] [place] [address] 15 Sep, 2016 [facility] [place] [address] [facility]] [id number] [address] [place] [address] 14 Sep, 2016 [facility] [place] [address] [id number] [address] [place] [address] 14 Sep, 2016 [place] [address] [facility]] [id number] [address] [place] [address] 13 Sep, 2016 Eustachian tube dysfunction, bilateral H69.83 [facility] [place] [address] [facility]] [id number] [address] [place] [address] 09 Sep, 2016 Allergic rhinitis J30.9 ; Es sential hypertension I10 ; Hypothyroidism E03.9 and Schizo affective schizophrenia F25.0 [facility] [place] [address] [facility]] [id number] [address] [place] [address] Jul, Eustachian tube dysfunction, bilateral H69.83 and Visit for TB skin test Z11.1 [facility] [address] [facility]] [id number] [address] [place] [address] Jul, Subacute pansinusitis J01.40 [facility] [place] [address] [facility]] [id number] [address] [place] [address] Jun, Schizo affective schizophren ia F25.0 ; Depression F32.9 ; Allergic rhinitis J30.9 ; Raynauds syndrome I73.00 ; Essential hypertension I10 ; Slow transit constipation K59.01 ; GERD (gastroesophageal reflux disease) K21.9 ; Hypothyroidism E03.9 ; Nicotine addiction F17.200 ; Other viral agents as the cause of diseases classified elsewhere B97.89 ; Acute upper respiratory infection, unspecified J06.9 and Osteoarthritis M19.90 [place] [address] [address] Jun, Allergic rhinitis J30.9 and GERD (gastroesophageal reflux disease) K21.9 [place] [address] [address] May, [place] [address] [address] Mar, Schizo affective schizophren ia F25.0 [place] [address] [address] Mar, Schizo affective schizophren ia F25.0 [place] [address] [place] [id number] [place] [address] Mar, Schizo affective schizophren ia F25.0 [place] [address] [id number] [place] [address] Mar, Acute non-recurrent maxillar y sinusitis J01.00 [place] [address] [place] [address] Feb, Schizo affective schizophren ia F25.0 [place] [address] [place] [id number] [place] [address] Feb, Contact dermatitis and eczem a L25.9 [place] [address] [place] [id number] [address] [place] [address] Jan, [place] [address] [place] [id number] [address] [place] [address] Jan, Schizo affective schizophren ia F25.0 ; Slow transit constipation K59.01 ; Essential hypertension I10 ; GERD (gastroesophageal reflux disease) K21.9 ; Hypothyroidism E03.9 ; Osteoarthritis M19.90 ; Low back pain, unspecified back pain laterality, unspecified chronicity, with sciatica presence unspecified M54.5 and Bilateral carotid artery disease I77.9 [facility] [place] [address] [address] Oct, [place] [address] [address] Sep, Hypothyroid E03.9 [place] [address] [address] Sep, Schizo affective schizophren ia F25.0 ; Depression F32.9 ; Anxiety F41.9 ; Allergic rhinitis J30.9 ; Raynauds syndrome I73.00 ; Insomnia G47.00 ; Essential hypertension I10 ; GERD (gastroesophageal reflux disease) K21.9 ; Hypothyroidism E03.9 and Vitamin D deficiency E55.9 [facility] [place] [address] [address] Sep, [place] [address] [address] Sep, [place] [address] [address] Aug, Allergic rhinitis J30.9 ; De pression F32.9 ; Anxiety F41.9 ; Raynauds syndrome I73.00 ; Insomnia G47.00 and GERD (gastroesophageal reflux disease) K21.9 [facility] [place] [address] [place] [id number] [address] [place] [address] Aug, MONICA (secretory otitis media) H65.90 and Raynauds syndrome I73.00 [facility] [id number] [address] [place] [address] Jul, Acute otitis externa of both ears, unspecified type H60.503 [place] [address] [facility]] [id number] [address] [place] [address] Jun, [facility] [place] [address] [address] Jun, Essential hypertension I10 ; Allergic rhinitis J30.9 ; Hypothyroidism E03.9 and Osteoarthritis M19.90 [place] [address] [place] [id number] [place] [address] Jun, Routine adult health mainten ance Z00.00 ; Hypothyroidism E03.9 ; Essential hypertension I10 ; Insomnia G47.00 ; Nicotine addiction F17.200 ; Raynauds syndrome I73.00 ; GERD (gastroesophageal reflux disease) K21.9 ; Allergic rhinitis J30.9 ; Anxiety F41.9 ; Depression F32.9 and Schizo affective schizophrenia F25.0 [place] [address] [place] [id number] [address] [place] [address] May, Upper respiratory tract infe ction, unspecified type J06.9 [place] [address] [place] [id number] [place] [address] Mar, [facility] [id number] [place] [id number] Mar, [place] [address] [place] [address] Mar, [place] [address] [place] [id number] [address] [place] [address] Mar, [facility] [place] [address] [id number] [address] [place] [address] Feb, Jaw pain 784.92 and Environm ental and seasonal allergies 477.8 [facility] [place] [id number] [address] [place] [address] Feb, [facility] [place] [address] [id number] [address] [place] [address] Oct, [facility] [place] [address] [id number] [address] [place] [address], [place] [address] 28 Oct, 2014 [facility] [address] [id number] [address] [place] [address], [place] [address] 14 Oct, 2014 [facility] [address] [id number] [address] [place] [address], [place] [address] 13 Oct, 2014 [facility] [address] [id number] [address] [place] [address], [place] [address] Sep, [facility] [address] [id number] [address] [place] [address], [place] [address] Sep, [facility] [address] [id number] [address] [place] [address], [place] [address] Jul, [facility] [address] [id number] [address] [place] [address], [place] [address] Jul, [facility] [address] [id number] [address] [place] [address], [place] [address] Jul, [facility] [address] [id number] [address] [place] [address], [place] [address] Jul, [facility] [address] [id number] [address] [place] [address], [place] [address] Jul, [facility] [address] [id number] [address] [place] [address], [place] [address] Jul, [facility] [address] [id number] [address] [place] [address], [place] [address] Jul, [facility] [address] [id number] [address] [place] [address], [place] [address] Jun, [facility] [address] [id number] [address] [place] [address], [place] [address] Jun, [facility] [address] [id number] [address] [place] [address], [place] [address] Jun, [facility] [address] [id number] [address] [place] [address], [place] [address] Jun, [facility] [address] [id number] [address] [place] [address], [place] [address] Jun, [facility] [address] [id number] [address] [place] [address], [place] [address] Jun, [facility] [address] [id number] [address] [place] [address], [place] [address] Jun, [facility] [address] [id number] [address] [place] [address], [place] [address] Jun, [facility] [address] [id number] [address] [place] [address], [place] [address] Apr, [facility] [address] [id number] [address] [place] [address], [place] [address] Apr, [facility] [address] [id number] [address] [place] [address], [place] [address] Mar, [facility] [address] [id number] [address] [place] [address], [place] [address] Mar, [facility] [address] [id number] [address] [place] [address], [place] [address] Mar, [facility] [address] [id number] [address] [place] [address], [place] [address] Mar, [facility] [address] [id number] [address] [place] [address], [place] [address] Jan, [facility] [address] [id number] [address] [place] [address], [place] [address] Jan, [facility] [address] [id number] [address] [place] [address], [place] [address] Oct, [facility] [address] [id number] [address] [place] [address], [place] [address] Oct, [facility] [address] [id number] [address] [place] [address], [place] [address] Sep, [facility] [address] [id number] [address] [place] [address], [place] [address] Sep, [facility] [address] [id number] [address] [place] [address], [place] [address] Sep, [facility] [address] [id number] [address] [place] [address], [place] [address] Sep, [facility] [address] [id number] [address] [place] [address], [place] [address] Sep, [facility] [address] [id number] [address] [place] [address], [place] [address] Sep, [facility] [address] [id number] [address] [place] [address], [place] [address] Aug, [facility] [address] [id number] [address] [place] [address], [place] [address] Aug, [facility] [address] [id number] [address] [place] [address], [place] [address] Jul, [facility] [address] [id number] [address] [place] [address], [place] [address] Jul, [facility] [address] [id number] [address] [place] [address], [place] [address] Jul, [facility] [address] [id number] [address] [place] [address], [place] [address] Jul, [facility] [address] [id number] [address] [place] [address], [place] [address] Jun, [facility] [address] [id number] [address] [place] [address] Jun, [facility] [address] [id number] [address] [place] [address], [place] [address] May, [facility] [address] [id number] [address] [place] [address], [place] [address] May, [facility] [address] [id number] [address] [place] [address], [place] [address] Apr, [facility] [address] [id number] [address] [place] [address], [place] [address] Apr, [facility] [address] [id number] [address] [place] [address], [place] [address] Apr, [facility] [address] [id number] [address] [place] [address], [place] [address] Apr, [facility] [address] [id number] [address] [place] [address], [place] [address] Apr, [facility] [address] [id number] [address] [place] [address], [place] [address] Apr, [facility] [address] [id number] [address] [place] [address], [place] [address] 24 Mar, 2013 [facility] [address] [id number] [address] [place] [address], [place] [address] Mar, [facility] [address] [id number] [address] [place] [address], [place] [address] 09 Mar, 2013 [facility] [address] [id number] [address] [place] [address], [place] [address] 05 Mar, 2013 [facility] [address] [id number] [address] [place] [address], [place] [address] 05 Mar, 2013 [facility] [address] [id number] [address] [place] [address], [place] [address] 30 Feb, 2013 [facility] [address] [id number] [address] [place] [address], [place] [address] Feb, [facility] [address] [id number] [address] [place] [address], [place] [address] Feb, [facility] [address] [id number] [address] [place] [address], [place] [address] Feb, [facility] [address] [id number] [address] [place] [address], [place] [address] Jan, [facility] [address] [id number] [address] [place] [address], [place] [address] Jan, [facility] [address] [id number] [address] [place] [address], [place] [address] 16 Jan, 2013 [facility] [address] [id number] [address] [place] [address], [place] [address] Jan, [facility] [address] [id number] [address] [place] [address], [place] [address] Jan, [facility] [address] [id number] [address] [place] [address], [place] [address] Jan, [facility] [address] [id number] [address] [place] [address], [place] [address] Dec, [facility] [address] [id number] [address] [place] [address], [place] [address] 25 Dec, 2012 [facility] [address] [id number] [address] [place] [address], [place] [address] Dec, [facility] [address] [id number] [address] [place] [address], [place] [address] 14 Dec, 2012 [facility] [address] [id number] [address] [place] [address], [place] [address] Dec, [facility] [address] [id number] [address] [place] [address], [place] [address] Dec, [facility] [address] [id number] [address] [place] [address], [place] [address] Dec, [facility] [address] [id number] [address] [place] [address], [place] [address] 07 Dec, 2012 [facility] [address] [id number] [address] [place] [address], [place] [address] 05 Dec, 2012 [facility] [address] [id number] [address] [place] [address], [place] [address] Dec, [facility] [address] [id number] [address] [place] [address], [place] [address] November, [facility] [address] [id number] [address] [place] [id number] November, [facility] [address] [id number] [address] [place] [address], [place] [address] November, [facility] [address] [id number] [address] [place] [address], [place] [address] November, [facility] [address] [id number] [address] [place] [address], [place] [address] November, [facility] [address] [id number] [address] [place] [address], [place] [address] Oct, [facility] [address] [id number] [address] [place] [address], [place] [address] Oct, [facility] [address] [id number] [address] [place] [address], [place] [address] Oct, [facility] [address] [id number] [address] [place] [address], [place] [address] Oct, [facility] [address] [id number] [address] [place] [address], [place] [address] Oct, [facility] [address] [id number] [address] [place] [address], [place] [address] Sep, [facility] [address] [id number] [address] [place] [address], [place] [address] Sep, [facility] [address] [id number] [address] [place] [address], [place] [address] Sep, [facility] [address] [id number] [address] [place] [address], [place] [address] Sep, [facility] [address] [id number] [address] [place] [address], [place] [address] Aug, [facility] [address] [id number] [address] [place] [address], [place] [address] Aug, [facility] [address] [id number] [address] [place] [address], [place] [address] Aug, [facility] [address] [id number] [address] [place] [address], [place] [address] Aug, [facility] [address] [id number] [address] [place] [address], [place] [address] Jun, [facility] [address] [id number] [address] [place] [address], [place] [address] Jun, [facility] [address] [id number] [address] [place] [address], [place] [address] Jun, [facility] [address] [id number] [address] [place] [address], [place] [address] Jun, [facility] [address] [id number] [address] [place] [address], [place] [address] Jun, [facility] [address] [id number] [address] [place] [address], [place] [address] Jun, [facility] [address] [id number] [address] [place] [address], [place] [address] Jun, [facility] [address] [id number] [address] [place] [address], [place] [address] Jun, [facility] [address] [id number] [address] [place] [address], [place] [address] Jun, [facility] [address] [id number] [address] [place] [address], [place] [address] Jun, [facility] [address] [id number] [address] [place] [address], [place] [address] May, [facility] [address] [id number] [address] [place] [address], [place] [address] May, [facility] [address] [id number] [address] [place] [address], [place] [address] May, [facility] [address] [id number] [address] [place] [address], [place] [address] May, [facility] [address] [id number] [address] [place] [address], [place] [address] 26 May, 2012 [facility] [address] [id number] [address] [place] [address], [place] [address] 16 May, 2012 [facility] [address] [id number] [address] [place] [address], [place] [address] 16 May, 2012 [facility] [address] [id number] [address] [place] [address], [place] [address] 14 May, 2012 [facility] [address] [id number] [address] [place] [address], [place] [address] 14 May, 2012 [facility] [address] [id number] [address] [place] [address], [place] [address] 30 Apr, 2012 [facility] [address] [id number] [address] [place] [address], [place] [address] 30 Apr, 2012 [facility] [address] [id number] [address] [place] [address], [place] [address] 17 Apr, 2012 [facility] [address] [id number] [address] [place] [address], [place] [address] 17 Apr, 2012 [facility] [address] [id number] [address] [place] [address], [place] [address] 09 Apr, 2012 [facility] [address] [id number] [address] [place] [address], [place] [address] 18 Mar, 2012 [facility] [address] [id number] [address] [place] [address], [place] [address] 17 Mar, 2012 [facility] [address] [id number] [address] [place] [address], [place] [address] 07 Mar, 2012 [facility] [address] [id number] [address] [place] [address], [place] [address] 27 Feb, 2012 [facility] [address] [id number] [address] [place] [address], [place] [address] 16 Feb, 2012 [facility] [address] [id number] [address] [place] [address], [place] [address] 15 Feb, 2012 [facility] [address] [id number] [address] [place] [address], [place] [address] Feb, [facility] [address] [id number] [address] [place] [address], [place] [address] Jan, [facility] [address] [id number] [address] [place] [address], [place] [address] Jan, [facility] [address] [id number] [address] [place] [address], [place] [address] Jan, [facility] [address] [id number] [address] [place] [address], [place] [address] Jan, [facility] [address] [id number] [address] [place] [address], [place] [address] Jan, [facility] [address] [id number] [address] [place] [address], [place] [address] Jan, [facility] [address] [id number] [address] [place] [address], [place] [address] Dec, [facility] [address] [id number] [address] [place] [address], [place] [address] Dec, [facility] [address] [id number] [address] [place] [address], [place] [address] Dec, [facility] [address] [id number] [address] [place] [address], [place] [address] November, [facility] [address] [id number] [address] [place] [address], [place] [address] November, [facility] [address] [id number] [address] [place] [address], [place] [address] November, [facility] [address] [id number] [address] [place] [address], [place] [address] November, [facility] [address] [id number] [address] [place] [address], [place] [address] Oct, [facility] [address] [id number] [address] [place] [address], [place] [address] Oct, [facility] [address] [id number] [address] [place] [address], [place] [address] Oct, [facility] [address] [id number] [address] [place] [address], [place] [address] Sep, [facility] [address] [id number] [address] [place] [address], [place] [address] Sep, [facility] [address] [id number] [address] [place] [address], [place] [address] Aug, [facility] [address] [id number] [address] [place] [address], [place] [address] Aug, [facility] [address] [id number] [address] [place] [address], [place] [address] Aug, [facility] [address] [id number] [address] [place] [address], [place] [address] Aug, [facility] [address] [id number] [address] [place] [address], [place] [address] Jul, [facility] [address] [id number] [address] [place] [address], [place] [address] Jul, [facility] [address] [id number] [address] [place] [address], [place] [address] Jul, [facility] [address] [id number] [address] [place] [address], [place] [address] Jul, [facility] [address] [id number] [address] [place] [address], [place] [address] Jul, [facility] [address] [id number] [address] [place] [address], [place] [address] Jul, [facility] [address] [id number] [address] [place] [address], [place] [address] Jul, [facility] [address] [id number] [address] [place] [address], [place] [address] Jul, [facility] [address] [id number] [address] [place] [address], [place] [address] 30 Jun, 2011 [facility] [address] [id number] [address] [place] [address], [place] [address] Jun, [facility] [address] [id number] [address] [place] [address], [place] [address] 15 Jun, 2011 [facility] [address] [id number] [address] [place] [address], [place] [address] 08 Jun, 2011 [facility] [address] [id number] [address] [place] [address], [place] [address] Jun, [facility] [address] [id number] [address] [place] [address], [place] [address] May, [facility] [address] [id number] [address] [place] [address], [place] [address] May, [facility] [address] [id number] [address] [place] [address], [place] [address] May, [facility] [address] [id number] [address] [place] [address], [place] [address] May, [facility] [address] [id number] [address] [place] [address], [place] [address] May, [facility] [address] [id number] [address] [place] [address], [place] [address] May, [facility] [address] [id number] [address] [place] [address], [place] [address] Apr, [facility] [address] [id number] [address] [place] [address], [place] [address] Apr, [facility] [address] [id number] [address] [place] [address], [place] [address] Apr, [facility] [address] [id number] [address] [place] [address], [place] [address] Feb, [facility] [address] [id number] [address] [place] [address] Feb, [facility] [place] [address] [id number] [address] [place] [address] Oct, [facility] [place] [address] [id number] [address] [place] [address] Jul, [facility] [place] [address] [id number] [address] [place] [address] Jul, [facility] [place] [address] [id number] [address] [place] [address] Jun, [facility] [place] [address] [id number] [address] [place] [address] May, [facility] [place] [address] [id number] [address] [place] [address] May, [facility] [place] [address] [id number] [address] [place] [address] May, [facility] [place] [address] [id number] [address] [place] [address] Apr, [facility] [place] [address] [id number] [address] [place] [address] Jan, [facility] [place] [address] [id number] [address] [place] [address] November, IMMUNIZATIONS No Known Immunizations SOCIAL HISTORY Never Assessed REASON FOR VISIT Controlled Refill Request PLAN OF CARE VITAL SIGNS MEDICATIONS Medication Instructions Dosage Frequency Start Date End Date Duration S tatus Hydrocodone-Acetaminophen 5-325 MG Orally 3 times a day 1 tablet as needed Feb, 10 days Active RESULTS No Results PROCEDURES No [...]
--- OUTSIDE RECORDS SUMMARY | 2020-01-31 09:54 | XMS REPORT ---
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 Name Role Phone MADELYN WILLSON Unavailable PROBLEMS Type Condition ICD9-CM Code BGA19-XK Code Onset Dates Condition S tatus SNOMED Code Problem Schizo affective schizophrenia F25.0 Active 205143813 Problem Low back pain, unspecified b ack pain laterality, unspecified chronicity, with sciatica presence unspecified M54.5 Active 612678963 Problem Osteoarthritis M19.90 Active 40704 5006 Problem Secondary hyperparathyroidism, not elsewhere classified E21.1 Active 86291348 Problem Iron deficiency anemia, unspecified iron deficiency an emia type D50.9 Active 68821546 Problem Stage 3 chronic kidney disease N18.3 Active 487486922 Problem Bilateral carotid artery disease I77.9 Active 424212173 Problem Vitamin D deficiency E55.9 Active 40890644 Problem Fibromyalgia M79.7 Active 9016189 05 Problem GERD (gastroesophageal reflux disease) K21.9 Active 462085424 Problem Hypothyroidism E03.9 Active 28861 008 Problem Anxiety F41.9 Active 63488105 Problem Depression F32.9 Active 02524167 Problem Essential hypertension I10 Active 66715997 ALLERGIES No Information ENCOUNTERS Encounter Location Date Diagnosis [facility] [address] [id number] [address] [place] [address] Dec, [facility] [address] [id number] [address] [place] [address] November, Nausea and vomiting, intract ability of vomiting not specified, unspecified vomiting type R11.2 and Dizziness R42 [facility] [id number] [address] [place] [address] November, Fibromyalgia M79.7 [facility] [id number] [place] [address] November, Medicare annual wellness vis it, initial Z00.00 ; Anxiety F41.9 ; Depression F32.9 ; Stage 3 chronic kidney disease N18.3 ; Fibromyalgia M79.7 ; Essential hypertension I10 ; Secondary hyperparathyroidism, not elsewhere classified E21.1 ; Osteoarthritis M19.90 ; Hypothyroidism E03.9 and Encounter for immunization Z23 [place] [address] [address] Oct, [place] [address] [address] Oct, Sebaceous cyst L72.3 [place] [address] [address] Sep, Low back pain, unspecified b ack pain laterality, unspecified chronicity, with sciatica presence unspecified M54.5 and Secondary hyperparathyroidism, not elsewhere classified E21.1 [place] [address] [address] Sep, Fibromyalgia M79.7 [place] [address] [address] Sep, Fibromyalgia M79.7 ; Plantar fasciitis, bilateral M72.2 ; Essential hypertension I10 ; Depression F32.9 and Epidermoid cyst L72.0 [place] [address] [address] Jul, [place] [address] [address] Jul, Fibromyalgia M79.7 ; Iron de ficiency anemia, unspecified iron deficiency anemia type D50.9 and Acute nasopharyngitis J00 [facility] [id number] [address] [place] [address] Jun, Sore throat J02.9 and Acute serous otitis media of left ear, recurrence not specified H65.02 [place] [address] [address] Jun, Hypothyroidism E03.9 [facility] [address] [facility] [id number] [address] [place] [address] Jun, [facility] [id number] [address] [place] [address] Jun, Hypothyroidism E03.9 ; Essen tial hypertension I10 and Osteoarthritis M19.90 [place] [address] [address] May, [facility] [id number] [place] [address] May, [place] [id number] [place] [address] Feb, [place] [address] [address] Feb, Leonela-menopausal N95.1 and To bacco use Z72.0 [place] [address] [place] [id number] [place] [address] Jan, [place] [address] [address] Jan, Osteoarthritis M19.90 ; Bila teral carotid artery disease I77.9 ; Raynauds syndrome I73.00 ; Essential hypertension I10 ; Allergic rhinitis J30.9 ; Stage 3 chronic kidney disease N18.3 ; Fibromyalgia M79.7 ; Hypothyroidism E03.9 ; GERD (gastroesophageal reflux disease) K21.9 and Vitamin D deficiency E55.9 [place] [address] [place] [id number] [address] [place] [address] Dec, Raynauds syndrome I73.00 ; P lantar fascial fibromatosis M72.2 ; Osteoarthritis M19.90 and Fibromyalgia M79.7 [place] [address] [place] [id number] [address] [place] [address] Dec, [place] [address] [place] [id number] [place] [address] 13 Dec, 2016 [facility] [address] [id number] [address] [place] [address] Oct, Function kidney decreased N2 8.9 [facility] [address] [id number] [address] [place] [id number] Oct, Dental examination Z01.20 [facility] [address] [id number] [address] [place] [address] 18 Oct, 2016 Essential hypertension I10 a nd Function kidney decreased N28.9 [facility] [address] [id number] [address] [place] [id number] 04 Oct, 2016 Dental examination Z01.20 [facility] [address] [id number] [address] [place] [address] 03 Oct, 2016 [facility] [address] [id number] [address] [place] [address] 24 Sep, 2016 Other specified disorders in volving the immune mechanism D89.89 and Schizo affective schizophrenia F25.0 [facility] [address] [id number] [address] [place] [address] 21 Sep, 2016 Schizo affective schizophren ia F25.0 [facility] [address] [id number] [address] [place] [address] 16 Sep, 2016 Eustachian tube dysfunction, bilateral H69.83 [facility] [address] [id number] [address] [place] [address] 15 Sep, 2016 [facility] [address] [id number] [address] [place] [address] 14 Sep, 2016 [facility] [address] [id number] [address] [place] [address] 14 Sep, 2016 [facility] [address] [id number] [address] [place] [address] 13 Sep, 2016 Eustachian tube dysfunction, bilateral H69.83 [facility] [address] [address] Sep, Allergic rhinitis J30.9 ; Es sential hypertension I10 ; Hypothyroidism E03.9 and Schizo affective schizophrenia F25.0 [facility] [address] [address] Jul, Eustachian tube dysfunction, bilateral H69.83 and Visit for TB skin test Z11.1 [facility] [address] [address] Jul, Subacute pansinusitis J01.40 [place] [address] [address] Jun, Schizo affective schizophren ia F25.0 ; Depression F32.9 ; Allergic rhinitis J30.9 ; Raynauds syndrome I73.00 ; Essential hypertension I10 ; Slow transit constipation K59.01 ; GERD (gastroesophageal reflux disease) K21.9 ; Hypothyroidism E03.9 ; Nicotine addiction F17.200 ; Other viral agents as the cause of diseases classified elsewhere B97.89 ; Acute upper respiratory infection, unspecified J06.9 and Osteoarthritis M19.90 [place] [address] [address] Jun, Allergic rhinitis J30.9 and GERD (gastroesophageal reflux disease) K21.9 [place] [address] [address] May, [place] [address] [address] Mar, Schizo affective schizophren ia F25.0 [place] [address] [address] Mar, Schizo affective schizophren ia F25.0 [place] [address] [address] 15 Mar, 2016 Schizo affective schizophren ia F25.0 [place] [address] [address] Mar, Acute non-recurrent maxillar y sinusitis J01.00 [place] [address] [address] Feb, Schizo affective schizophren ia F25.0 [place] [address] [address] Feb, Contact dermatitis and eczem a L25.9 [place] [address] [address] Jan, [place] [address] [address] Jan, Schizo affective schizophren ia F25.0 ; Slow transit constipation K59.01 ; Essential hypertension I10 ; GERD (gastroesophageal reflux disease) K21.9 ; Hypothyroidism E03.9 ; Osteoarthritis M19.90 ; Low back pain, unspecified back pain laterality, unspecified chronicity, with sciatica presence unspecified M54.5 and Bilateral carotid artery disease I77.9 [place] [address] [address] Oct, [place] [address] [address] Sep, Hypothyroid E03.9 [place] [address] [address] Sep, Schizo affective schizophren ia F25.0 ; Depression F32.9 ; Anxiety F41.9 ; Allergic rhinitis J30.9 ; Raynauds syndrome I73.00 ; Insomnia G47.00 ; Essential hypertension I10 ; GERD (gastroesophageal reflux disease) K21.9 ; Hypothyroidism E03.9 and Vitamin D deficiency E55.9 [place] [address] [address] Sep, [place] [address] [address] Sep, [place] [address] [place] [address] 15 Aug, 2015 Allergic rhinitis J30.9 ; De pression F32.9 ; Anxiety F41.9 ; Raynauds syndrome I73.00 ; Insomnia G47.00 and GERD (gastroesophageal reflux disease) K21.9 [facility] [address] [place] [address] Aug, MONICA (secretory otitis media) H65.90 and Raynauds syndrome I73.00 [facility] [id number] [place] [address] Jul, Acute otitis externa of both ears, unspecified type H60.503 [place] [address] [place] [id number] [place] [address] Jun, [place] [address] [address] Jun, Essential hypertension I10 ; Allergic rhinitis J30.9 ; Hypothyroidism E03.9 and Osteoarthritis M19.90 [place] [address] [address] Jun, Routine adult health mainten ance Z00.00 ; Hypothyroidism E03.9 ; Essential hypertension I10 ; Insomnia G47.00 ; Nicotine addiction F17.200 ; Raynauds syndrome I73.00 ; GERD (gastroesophageal reflux disease) K21.9 ; Allergic rhinitis J30.9 ; Anxiety F41.9 ; Depression F32.9 and Schizo affective schizophrenia F25.0 [place] [address] [place] [address] May, Upper respiratory tract infe ction, unspecified type J06.9 [place] [address] [place] [id number] [place] [address] Mar, [facility] [address] [id number] Payam MORGAN S [id number] Mar, [place] [address] [place] [address] Mar, [facility] [address] [id number] [address] [place] [address], [place] [address] Mar, [facility] [address] [id number] [address] [place] [address] Feb, Jaw pain 784.92 and Environm ental and seasonal allergies 477.8 [facility] [address] [id number] [address] [place] [address], [place] [address] Feb, [facility] [address] [id number] [address] [place] [address], [place] [address] Oct, [facility] [address] [id number] [address] [place] [address], [place] [address] Oct, [facility] [address] [id number] [address] [place] [address], [place] [address] Oct, [facility] [address] [id number] [address] [place] [phone] Oct, [facility] [address] [id number] [address] [place] [address], [place] [address] Sep, [facility] [address] [id number] [address] [place] [address] Sep, [facility] [address] [id number] [address] [place] [address] Jul, [facility] [address] [id number] [address] [place] [address] Jul, [facility] [address] [id number] [address] [place] [address], [place] [address] Jul, [facility] [address] [id number] [address] [place] [address], [place] [address] Jul, [facility] [address] [id number] [address] [place] [address] Jul, [facility] [address] [id number] [address] [place] [address] [place] [address] Jul, [facility] [address] [id number] [address] [place] [address], [place] [address] Jul, [facility] [address] [id number] [address] [place] [address], [place] [address] Jun, [facility] [address] [id number] [address] [place] [address], [place] [address] 31 Jun, 2014 [facility] [address] [id number] [address] [place] [address], [place] [address] 22 Jun, 2014 [facility] [address] [id number] [address] [place] [address], [place] [address] 18 Jun, 2014 [facility] [address] [id number] [address] [place] [address], [place] [address] 17 Jun, 2014 [facility] [address] [id number] [address] [place] [address], [place] [address] 17 Jun, 2014 [facility] [address] [id number] [address] [place] [address], [place] [address] 16 Jun, 2014 [facility] [address] [id number] [address] [place] [address], [place] [address] 16 Jun, 2014 [facility] [address] [id number] [address] [place] [address], [place] [address] 30 Apr, 2014 [facility] [address] [id number] [address] [place] [address], [place] [address] 30 Apr, 2014 [facility] [address] [id number] [address] [place] [address], [place] [address] 17 Mar, 2014 [facility] [address] [id number] [address] [place] [address], [place] [address] 17 Mar, 2014 [facility] [address] [id number] [address] [place] [address], [place] [address] 03 Mar, 2014 [facility] [address] [id number] [address] [place] [address], [place] [address] 03 Mar, 2013 [facility] [address] [id number] [facility] [place] [address] Jan, [facility] [address] [id number] [address] [place] [address], [place] [address] Jan, [facility] [address] [id number] [address] [place] [address], [place] [address] Oct, [facility] [address] [id number] [address] [place] [address], [place] [address] Oct, [facility] [address] [id number] [address] [place] [address], [place] [address] Sep, [facility] [address] [id number] [address] [place] [address], [place] [address] Sep, [facility] [address] [id number] [address] [place] [address], [place] [address] Sep, [facility] [address] [id number] [address] [place] [address], [place] [address] Sep, [facility] [address] [id number] [address] [place] [address], [place] [address] Sep, [facility] [address] [id number] [address] [place] [address], [place] [address] Sep, [facility] [address] [id number] [address] [place] [address], [place] [address] Aug, [facility] [address] [id number] [address] [place] [address], [place] [address] Aug, [facility] [address] [id number] [address] [place] [address], [place] [address] Jul, [facility] [address] [id number] [address] [place] [address], [place] [address] Jul, [facility] [address] [id number] [address] [place] [address], [place] [address] Jul, [facility] [address] [id number] [address] [address] Jul, [facility] [address] [id number] [address] [place] [address], [place] [address] Jun, [facility] [address] [id number] [address] [place] [address], [place] [address] Jun, [facility] [address] [id number] [address] [place] [address], [place] [address] May, [facility] [address] [id number] [address] [place] [address] May, [facility] [address] [id number] [address] [place] [address], [place] [address] Apr, [facility] [address] [id number] [address] [place] [address] Apr, [facility] [address] [id number] [address] [place] [address], [place] [address] Apr, [facility] [address] [id number] [address] [place] [address] Apr, [facility] [address] [id number] [address] [place] [address] Apr, [facility] [address] [id number] [address] [place] [address], [place] [address] Apr, [facility] [address] [id number] [address] [place] [address] 24 Mar, 2013 [facility] [address] [id number] [address] [place] [address] 12 Mar, 2012 [facility] [address] [id number] [address] [place] [address], [place] [address] 09 Mar, 2012 [facility] [address] [id number] [address] [place] [address], [place] [address] 05 Mar, 2012 [facility] [address] [id number] [address] [place] [address] 05 Mar, 2012 [facility] [address] [id number] [facility] [place] [address] 30 Feb, 2013 [facility] [address] [id number] [address] [place] [address], [place] [address] Feb, [facility] [address] [id number] [address] [place] [address], [place] [address] Feb, [facility] [address] [id number] [address] [place] [address], [place] [address] Feb, [facility] [address] [id number] [address] [place] [address], [place] [address] Jan, [facility] [address] [id number] [address] [place] [address], [place] [address] 17 Jan, 2013 [facility] [address] [id number] [address] [place] [address], [place] [address] 16 Jan, 2013 [facility] [address] [id number] [address] [place] [address], [place] [address] Jan, [facility] [address] [id number] [address] [place] [address], [place] [address] Jan, [facility] [address] [id number] [address] [place] [address], [place] [address] Jan, [facility] [address] [id number] [address] [place] [address], [place] [address] Dec, [facility] [address] [id number] [address] [place] [address], [place] [address] Dec, [facility] [address] [id number] [address] [place] [address], [place] [address] Dec, [facility] [address] [id number] [address] [place] [address], [place] [address] 14 Dec, 2012 [facility] [address] [id number] [address] [place] [address], [place] [address] 13 Dec, 2012 [facility] [address] [id number] [address] [place] [address], [place] [address] Dec, [facility] [address] [id number] [address] [place] [address], [place] [address] Dec, [facility] [address] [id number] [address] [place] [address], [place] [address] Dec, [facility] [address] [id number] [address] [place] [address], [place] [address] Dec, [facility] [address] [id number] [address] [place] [address], [place] [address] Dec, [facility] [address] [id number] [address] [place] [address], [place] [address] November, [facility] [address] [id number] [address] [place] [address], [place] [address] November, [facility] [address] [id number] [address] [place] [address], [place] [address] November, [facility] [address] [id number] [address] [place] [address], [place] [address] November, [facility] [address] [id number] [address] [place] [address], [place] [address] November, [facility] [address] [id number] [address] [place] [address], [place] [address] Oct, [facility] [address] [id number] [address] [place] [address], [place] [address] Oct, [facility] [address] [id number] [address] [place] [address], [place] [address] Oct, [facility] [address] [id number] [address] [place] [address], [place] [address] Oct, [facility] [address] [id number] [address] [place] [address], [place] [address] Oct, [facility] [address] [id number] [address] [place] [address], [place] [address] Sep, [facility] [address] [id number] [address] [place] [address], [place] [address] Sep, [facility] [address] [id number] [address] [place] [address], [place] [address] 18 Sep, 2012 [facility] [address] [id number] [address] [place] [address], [place] [address] 05 Sep, 2012 [facility] [address] [id number] [address] [place] [address], [place] [address] 26 Aug, 2012 [facility] [address] [id number] [address] [place] [address], [place] [id number] 18 Aug, 2012 [facility] [address] [id number] [address] [place] [address], [place] [address] 18 Aug, 2012 [facility] [address] [id number] [address] [place] [address], [place] [address] 15 Aug, 2012 [facility] [address] [id number] [address] [place] [address], [place] [address] 17 Jun, 2012 [facility] [address] [id number] [address] [place] [address], [place] [address] Jun, [facility] [address] [id number] [address] [place] [address], [place] [address] Jun, [facility] [address] [id number] [address] [place] [address], [place] [address] Jun, [facility] [address] [id number] [address] [place] [address], [place] [address] Jun, [facility] [address] [id number] [address] [place] [address], [place] [address] Jun, [facility] [address] [id number] [address] [place] [address], [place] [address] Jun, [facility] [address] [id number] [address] [place] [address], [place] [address] Jun, [facility] [address] [id number] [address] [place] [address], [place] [address] Jun, [facility] [address] [id number] [address] [place] [address], [place] [address] Jun, [facility] [address] [id number] [address] [place] [address], [place] [address] May, [facility] [address] [id number] [address] [place] [address], [place] [address] May, [facility] [address] [id number] [address] [place] [address], [place] [address] May, [facility] [address] [id number] [address] [place] [address], [place] [address] May, [facility] [address] [id number] [address] [place] [address], [place] [address] May, [facility] [address] [id number] [address] [place] [address], [place] [address] 16 May, 2012 [facility] [address] [id number] [address] [place] [address], [place] [address] 16 May, 2012 [facility] [address] [id number] [address] [place] [address], [place] [address] May, [facility] [address] [id number] [address] [place] [address], [place] [address] 14 May, 2012 [facility] [address] [id number] [address] [place] [address], [place] [address] 30 Apr, 2012 [facility] [address] [id number] [address] [place] [address], [place] [address] 30 Apr, 2012 [facility] [address] [id number] [address] [place] [address], [place] [address] Apr, [facility] [address] [id number] [address] [place] [address], [place] [address] Apr, [facility] [address] [id number] [address] [place] [address], [place] [address] Apr, [facility] [address] [id number] [address] [place] [address], [place] [address] 18 Mar, 2012 [facility] [address] [id number] [address] [place] [address], [place] [address] 17 Mar, 2012 [facility] [address] [id number] [address] [place] [address], [place] [address] 07 Mar, 2012 [facility] [address] [id number] [address] [place] [address], [place] [address] 27 Feb, 2012 [facility] [address] [id number] [address] [place] [address], [place] [address] 16 Feb, 2012 [facility] [address] [id number] [address] [place] [address], [place] [address] 15 Feb, 2012 [facility] [address] [id number] [address] [place] [address], [place] [address] 14 Feb, 2012 [facility] [address] [id number] [address] [place] [address], [place] [address] Jan, [facility] [address] [id number] [address] [place] [address], [place] [address] Jan, [facility] [address] [id number] [address] [place] [address], [place] [address] Jan, [facility] [address] [id number] [address] [place] [address], [place] [address] Jan, [facility] [address] [id number] [address] [place] [address], [place] [address] 17 Jan, 2012 [facility] [address] [id number] [address] [place] [address], [place] [address] Jan, [facility] [address] [id number] [address] [place] [address], [place] [address] Dec, [facility] [address] [id number] [address] [place] [address], [place] [address] 14 Dec, 2011 [facility] [address] [id number] [address] [place] [address], [place] [address] Dec, [facility] [address] [id number] [address] [place] [address], [place] [address] November, [facility] [address] [id number] [address] [place] [address], [place] [address] November, [facility] [address] [id number] [address] [place] [address], [place] [address] November, [facility] [address] [id number] [address] [place] [address], [place] [address] November, [facility] [address] [id number] [address] [place] [address], [place] [address] Oct, [facility] [address] [id number] [address] [place] [address], [place] [address] Oct, [facility] [address] [id number] [address] [place] [address], [place] [address] Oct, [facility] [address] [id number] [address] [place] [address], [place] [address] Sep, [facility] [address] [id number] [address] [place] [address], [place] [address] Sep, [facility] [address] [id number] [address] [place] [address], [place] [address] Aug, [facility] [address] [id number] [address] [place] [address], [place] [address] Aug, [facility] [address] [id number] [address] [place] [address], [place] [address] Aug, [facility] [address] [id number] [address] [place] [address], [place] [address] Aug, [facility] [address] [id number] [address] [place] [address], [place] [address] Jul, [facility] [address] [id number] [address] [place] [address], [place] [address] Jul, [facility] [address] [id number] [address] [place] [address], [place] [address] Jul, [facility] [address] [id number] [address] [place] [address], [place] [address] Jul, [facility] [address] [id number] [address] [place] [address], [place] [address] Jul, [facility] [address] [id number] [address] [place] [address], [place] [address] Jul, [facility] [address] [id number] [address] [place] [address], [place] [address] Jul, [facility] [address] [id number] [address] [place] [address], [place] [address] Jul, [facility] [address] [id number] [address] [place] [address], [place] [address] 30 Jun, 2011 [facility] [address] [id number] [address] [place] [address], [place] [address] Jun, [facility] [address] [id number] [address] [place] [address], [place] [address] 15 Jun, 2011 [facility] [address] [id number] [address] [place] [address], [place] [address] Jun, [facility] [address] [id number] [address] [place] [address], [place] [address] Jun, [facility] [address] [id number] [address] [place] [address], [place] [address] May, [facility] [address] [id number] [address] [place] [address], [place] [address] May, [facility] [address] [id number] [address] [place] [address], [place] [address] 17 May, 2011 [facility] [address] [id number] [address] [place] [address], [place] [address] 15 May, 2011 [facility] [address] [id number] [address] [place] [address], [place] [address] 08 May, 2011 [facility] [address] [id number] [address] [place] [address], [place] [address] 08 May, 2011 [facility] [address] [id number] [address] [place] [address], [place] [address] 19 Apr, 2011 [facility] [address] [id number] [address] [place] [address], [place] [address] Apr, [facility] [address] [id number] [address] [place] [address], [place] [address] Apr, [facility] [address] [id number] [address] [place] [address], [place] [address] 17 Feb, 2011 [facility] [address] [id number] [address] [place] [address], [place] [address] Feb, [facility] [address] [id number] [address] [place] [address], [place] [address] Oct, [facility] [address] [id number] [address] [place] [address], [place] [address] Jul, [facility] [address] [id number] [address] [place] [address], [place] [address] Jul, [facility] [address] [id number] [address] [place] [address], [place] [address] Jun, [facility] [address] [id number] [address] [place] [address], [place] [address] May, [facility] [address] [id number] [address] [place] [address], [place] [address] May, [facility] [address] [id number] [address] [place] [address] May, [facility] [address] [id number] [address] [place] [id number] Apr, [facility] [address] [id number] [address] [place] [address], [place] [address] Jan, [facility] [address] [id number] [address] [place] [address] November, IMMUNIZATIONS No Known Immunizations SOCIAL HISTORY Never Assessed REASON FOR VISIT med refill PLAN OF CARE VITAL SIGNS MEDICATIONS Medication Instructions Dosage Frequency Start Date End Date Duration S barry Levothyroxine Sodium 100 MCG Orally Once a day 1 tablet on an empty stomach in the morning 24h 30 days Active RESULTS No Results PROCEDURES [...]
--- OUTSIDE RECORDS SUMMARY | 2020-01-31 09:54 | XMS REPORT ---
Author Author Ivet KEARNS [facility] Address [address] [place] [address] Care Team Providers Care Field Enumerator Name Role Phone MILDRED KEARNS Unavailable PROBLEMS Type Condition ICD9-CM Code OAK26-TJ Code Onset Dates Condition S tatus SNOMED Code Problem Schizo affective schizophrenia F25.0 Active 929097038 Problem Low back pain, unspecified b ack pain laterality, unspecified chronicity, with sciatica presence unspecified M54.5 Active 896748925 Problem Osteoarthritis M19.90 Active 35697 5006 Problem Secondary hyperparathyroidism, not elsewhere classified E21.1 Active 32471612 Problem Iron deficiency anemia, unspecified iron deficiency an emia type D50.9 Active 91204980 Problem Stage 3 chronic kidney disease N18.3 Active 604944648 Problem Bilateral carotid artery disease I77.9 Active 547390709 Problem Vitamin D deficiency E55.9 Active 37187191 Problem Fibromyalgia M79.7 Active 0599229 05 Problem GERD (gastroesophageal reflux disease) K21.9 Active 545876455 Problem Hypothyroidism E03.9 Active 82173 008 Problem Anxiety F41.9 Active 84780600 Problem Depression F32.9 Active 40829741 Problem Essential hypertension I10 Active 23072574 ALLERGIES Substance Reaction Event Type Date Status Silvadene Unknown Drug Allergy Jun, Active Penicillin V Potassium Unknown Drug Allergy Jun, Activ e Levaquin muscle/joint ache Drug Allergy Jun, Active Feldene Unknown Drug Allergy Jun, Active Cholecalciferol (vitamin D3) 50,000 Unit Capsule threw /meds labs out of whack Non Drug Allergy Jun, Active ENCOUNTERS Encounter Location Date Diagnosis [facility] [address] [facility] [id number] [address] [place] [address] Dec, [facility] [address] [place] [id number] [address] [place] [address] November, Nausea and vomiting, intract ability of vomiting not specified, unspecified vomiting type R11.2 and Dizziness R42 [place] [address] [address] November, Fibromyalgia M79.7 [place] [address] [address] November, Medicare annual wellness vis it, initial Z00.00 ; Anxiety F41.9 ; Depression F32.9 ; Stage 3 chronic kidney disease N18.3 ; Fibromyalgia M79.7 ; Essential hypertension I10 ; Secondary hyperparathyroidism, not elsewhere classified E21.1 ; Osteoarthritis M19.90 ; Hypothyroidism E03.9 and Encounter for immunization Z23 [place] [address] [address] Oct, [place] [address] [address] Oct, Sebaceous cyst L72.3 [place] [address] [address] Sep, Low back pain, unspecified b ack pain laterality, unspecified chronicity, with sciatica presence unspecified M54.5 and Secondary hyperparathyroidism, not elsewhere classified E21.1 [place] [address] [address] Sep, Fibromyalgia M79.7 [place] [address] [address] Sep, Fibromyalgia M79.7 ; Plantar fasciitis, bilateral M72.2 ; Essential hypertension I10 ; Depression F32.9 and Epidermoid cyst L72.0 [place] [address] [address] Jul, [place] [address] [address] Jul, Fibromyalgia M79.7 ; Iron de ficiency anemia, unspecified iron deficiency anemia type D50.9 and Acute nasopharyngitis J00 [facility] [address] [address] 18 Jun, 2017 Sore throat J02.9 and Acute serous otitis media of left ear, recurrence not specified H65.02 [facility] [address] [address] Jun, Hypothyroidism E03.9 [facility] [address] [address] Jun, [place] [address] [address] Jun, Hypothyroidism E03.9 ; Essen tial hypertension I10 and Osteoarthritis M19.90 [place] [address] [address] May, [place] [address] [address] May, [place] [address] [address] Feb, [place] [address] [address] Feb, Leonela-menopausal N95.1 and To bacco use Z72.0 [place] [address] [address] Jan, [place] [address] [address] Jan, Osteoarthritis M19.90 ; Bila teral carotid artery disease I77.9 ; Raynauds syndrome I73.00 ; Essential hypertension I10 ; Allergic rhinitis J30.9 ; Stage 3 chronic kidney disease N18.3 ; Fibromyalgia M79.7 ; Hypothyroidism E03.9 ; GERD (gastroesophageal reflux disease) K21.9 and Vitamin D deficiency E55.9 [place] [address] [address] Dec, Raynauds syndrome I73.00 ; P lantar fascial fibromatosis M72.2 ; Osteoarthritis M19.90 and Fibromyalgia M79.7 [facility] [address] [facility] [id number] [address] [place] [address] Dec, [facility] [address] [place] [id number] [address] [place] [address] Dec, [facility] [address] [place] [id number] [place] [address] Oct, Function kidney decreased N2 8.9 [facility] [address] [place] [id number] Oct, Dental examination Z01.20 [facility] [address] [place] [id number] [place] [address] 18 Oct, 2016 Essential hypertension I10 a nd Function kidney decreased N28.9 [facility] [address] [place] [id number] Oct, Dental examination Z01.20 [facility] [address] [place] [id number] [address] [place] [address] Oct, [facility] [address] [place] [id number] [place] [address] 24 Sep, 2016 Other specified disorders in volving the immune mechanism D89.89 and Schizo affective schizophrenia F25.0 [facility] [address] [place] [id number] [address] [place] [address] Sep, Schizo affective schizophren ia F25.0 [facility] [address] [place] [id number] [address] [place] [address] 16 Sep, 2016 Eustachian tube dysfunction, bilateral H69.83 [facility] [address] [place] [id number] [address] [place] [address] 15 Sep, 2016 [facility] [address] [place] [id number] [address] [place] [address] 14 Sep, 2016 [facility] [address] [address] 14 Sep, 2016 [facility] [address] [address] 13 Sep, 2016 Eustachian tube dysfunction, bilateral H69.83 [place] [address] [address] Sep, Allergic rhinitis J30.9 ; Es sential hypertension I10 ; Hypothyroidism E03.9 and Schizo affective schizophrenia F25.0 [place] [address] [address] Jul, Eustachian tube dysfunction, bilateral H69.83 and Visit for TB skin test Z11.1 [facility] [address] [address] Jul, Subacute pansinusitis J01.40 [place] [address] [address] Jun, Schizo affective schizophren ia F25.0 ; Depression F32.9 ; Allergic rhinitis J30.9 ; Raynauds syndrome I73.00 ; Essential hypertension I10 ; Slow transit constipation K59.01 ; GERD (gastroesophageal reflux disease) K21.9 ; Hypothyroidism E03.9 ; Nicotine addiction F17.200 ; Other viral agents as the cause of diseases classified elsewhere B97.89 ; Acute upper respiratory infection, unspecified J06.9 and Osteoarthritis M19.90 [place] [address] [place] [id number] [address] [place] [address] Jun, Allergic rhinitis J30.9 and GERD (gastroesophageal reflux disease) K21.9 [place] [address] [address] May, [place] [address] [address] Mar, Schizo affective schizophren ia F25.0 [place] [address] [address] Mar, Schizo affective schizophren ia F25.0 [place] [address] [address] Mar, Schizo affective schizophren ia F25.0 [place] [address] [address] Mar, Acute non-recurrent maxillar y sinusitis J01.00 [place] [address] [address] Feb, Schizo affective schizophren ia F25.0 [place] [address] [address] Feb, Contact dermatitis and eczem a L25.[address] [address] Jan, [place] [address] [address] Jan, Schizo affective schizophren ia F25.0 ; Slow transit constipation K59.01 ; Essential hypertension I10 ; GERD (gastroesophageal reflux disease) K21.9 ; Hypothyroidism E03.9 ; Osteoarthritis M19.90 ; Low back pain, unspecified back pain laterality, unspecified chronicity, with sciatica presence unspecified M54.5 and Bilateral carotid artery disease I77.9 [place] [address] [address] Oct, [place] [address] [address] Sep, Hypothyroid E03.9 [place] [address] [address] Sep, Schizo affective schizophren ia F25.0 ; Depression F32.9 ; Anxiety F41.9 ; Allergic rhinitis J30.9 ; Raynauds syndrome I73.00 ; Insomnia G47.00 ; Essential hypertension I10 ; GERD (gastroesophageal reflux disease) K21.9 ; Hypothyroidism E03.9 and Vitamin D deficiency E55.9 [place] [address] [address] Sep, [facility] [address] [address] Sep, [place] [address] [address] Aug, Allergic rhinitis J30.9 ; De pression F32.9 ; Anxiety F41.9 ; Raynauds syndrome I73.00 ; Insomnia G47.00 and GERD (gastroesophageal reflux disease) K21.9 [place] [address] [address] Aug, MONICA (secretory otitis media) H65.90 and Raynauds syndrome I73.00 [facility] [address] [address] Jul, Acute otitis externa of both ears, unspecified type H60.503 [place] [address] [address] Jun, [place] [address] [address] Jun, Essential hypertension I10 ; Allergic rhinitis J30.9 ; Hypothyroidism E03.9 and Osteoarthritis M19.90 [place] [address] [address] Jun, Routine adult health mainten ance Z00.00 ; Hypothyroidism E03.9 ; Essential hypertension I10 ; Insomnia G47.00 ; Nicotine addiction F17.200 ; Raynauds syndrome I73.00 ; GERD (gastroesophageal reflux disease) K21.9 ; Allergic rhinitis J30.9 ; Anxiety F41.9 ; Depression F32.9 and Schizo affective schizophrenia F25.0 [place] [address] [address] May, Upper respiratory tract infe ction, unspecified type J06.9 [facility] [address] [id number] [address] [place] [address] Mar, [facility] [address] [id number] [place] [id number] Mar, [facility] [address] [id number] [address] [place] [address] Mar, [facility] [address] [id number] [address] [place] [address] Mar, [facility] [address] [id number] [address] [place] [address] Feb, Jaw pain 784.92 and Environm ental and seasonal allergies 477.8 [facility] [address] [id number] [address] [place] [address] Feb, [facility] [address] [id number] [address] [place] [address] Oct, [facility] [address] [id number] [address] [place] [address] Oct, [facility] [address] [id number] [address] [place] [address] Oct, [facility] [address] [id number] [address] [place] [address] Oct, [facility] [address] [id number] [address] [place] [address] Sep, [facility] [address] [id number] [address] [place] [address] Sep, [facility] [address] [id number] [address] [place] [address] Jul, [facility] [address] [id number] [address] [place] [address] Jul, [facility] [address] [id number] [address] [place] [address] Jul, [facility] [address] [id number] [address] [place] [address], [place] [address] Jul, [facility] [address] [id number] [address] [place] [address], [place] [address] Jul, [facility] [address] [id number] [address] [place] [address], [place] [address] Jul, [facility] [address] [id number] [address] [place] [address], [place] [address] Jul, [facility] [address] [id number] [address] [place] [address], [place] [address] Jun, [facility] [address] [id number] [address] [place] [address], [place] [address] Jun, [facility] [address] [id number] [address] [place] [address], [place] [address] Jun, [facility] [address] [id number] [address] [place] [address], [place] [address] 18 Jun, 2014 [facility] [address] [id number] [address] [place] [address], [place] [address] 17 Jun, 2014 [facility] [address] [id number] [address] [place] [address], [place] [address] 17 Jun, 2014 [facility] [address] [id number] [address] [place] [address], [place] [address] 16 Jun, 2014 [facility] [address] [id number] [address] [place] [address], [place] [address] 16 Jun, 2014 [facility] [address] [id number] [address] [place] [address], [place] [address] 30 Apr, 2014 [facility] [address] [id number] [address] [place] [address], [place] [address] 30 Apr, 2014 [facility] [address] [id number] [address] [place] [address], [place] [address] 17 Mar, 2014 [facility] [address] [id number] [facility] [place] [address] 17 Mar, 2014 [facility] [address] [id number] [address] [place] [address], [place] [address] Mar, [facility] [address] [id number] [address] [place] [address], [place] [address] Mar, [facility] [address] [id number] [address] [place] [address], [place] [address] Jan, [facility] [address] [id number] [address] [place] [address], [place] [address] Jan, [facility] [address] [id number] [address] [place] [address], [place] [address] Oct, [facility] [address] [id number] [address] [place] [address], [place] [address] Oct, [facility] [address] [id number] [address] [place] [address], [place] [address] Sep, [facility] [address] [id number] [address] [place] [address], [place] [address] Sep, [facility] [address] [id number] [address] [place] [address], [place] [address] Sep, [facility] [address] [id number] [address] [place] [address], [place] [address] Sep, [facility] [address] [id number] [address] [place] [address], [place] [address] Sep, [facility] [address] [id number] [address] [place] [address], [place] [address] Sep, [facility] [address] [id number] [address] [place] [address], [place] [address] Aug, [facility] [address] [id number] [address] [place] [address], [place] [address] Aug, [facility] [address] [id number] [address] [place] [address], [place] [address] Jul, [facility] [address] [id number] [address] [place] [address], [place] [address] Jul, [facility] [address] [id number] [address] [place] [address], [place] [address] Jul, [facility] [address] [id number] [address] [place] [address], [place] [address] Jul, [facility] [address] [id number] [address] [place] [address], [place] [address] Jun, [facility] [address] [id number] [address] [place] [address], [place] [address] Jun, [facility] [address] [id number] [address] [place] [address], [place] [address] May, [facility] [address] [id number] [address] [place] [address], [place] [address] May, [facility] [address] [id number] [address] [place] [address], [place] [address] Apr, [facility] [address] [id number] [address] [place] [address], [place] [address] Apr, [facility] [address] [id number] [address] [place] [address], [place] [address] Apr, [facility] [address] [id number] [address] [place] [address], [place] [address] Apr, [facility] [address] [id number] [address] [place] [address], [place] [address] Apr, [facility] [address] [id number] [address] [place] [address], [place] [address] Apr, [facility] [address] [id number] [address] [place] [address], [place] [address] Mar, [facility] [address] [id number] [address] [place] [address], [place] [address] Mar, [facility] [address] [id number] [address] [place] [address] [place] [address] 09 Mar, 2013 [facility] [address] [id number] [address] [place] [address], [place] [address] 05 Mar, 2012 [facility] [address] [id number] [address] [place] [address], [place] [address] 05 Mar, 2013 [facility] [address] [id number] [address] [place] [address], [place] [address] 30 Feb, 2013 [facility] [address] [id number] [address] [place] [address], [place] [address] Feb, [facility] [address] [id number] [address] [place] [address], [place] [address] Feb, [facility] [address] [id number] [address] [place] [address], [place] [address] Feb, [facility] [address] [id number] [address] [place] [address], [place] [address] Jan, [facility] [address] [id number] [address] [place] [address], [place] [address] Jan, [facility] [address] [id number] [address] [place] [address], [place] [address] 16 Jan, 2013 [facility] [address] [id number] [address] [place] [address], [place] [address] Jan, [facility] [address] [id number] [address] [place] [address], [place] [address] Jan, [facility] [address] [id number] [address] [place] [address], [place] [address] Jan, [facility] [address] [id number] [address] [place] [address], [place] [address] Dec, [facility] [address] [id number] [address] [place] [address], [place] [address] Dec, [facility] [address] [id number] [address] [place] [address], [place] [address] Dec, [facility] [address] [id number] [address] [place] [address], [place] [address] 14 Dec, 2012 [facility] [address] [id number] [address] [place] [address], [place] [address] 13 Dec, 2012 [facility] [address] [id number] [address] [place] [address], [place] [address] 12 Dec, 2012 [facility] [address] [id number] [address] [place] [address], [place] [address] Dec, [facility] [address] [id number] [address] [place] [address], [place] [address] 07 Dec, 2012 [facility] [address] [id number] [address] [place] [address], [place] [address] 05 Dec, 2012 [facility] [address] [id number] [address] [place] [address], [place] [address] Dec, [facility] [address] [id number] [address] [place] [address], [place] [address] November, [facility] [address] [id number] [address] [place] [address], [place] [address] November, [facility] [address] [id number] [address] [place] [address], [place] [address] November, [facility] [address] [id number] [address] [place] [address], [place] [address] November, [facility] [address] [id number] [address] [place] [address], [place] [address] November, [facility] [address] [id number] [address] [place] [address], [place] [address] Oct, [facility] [address] [id number] [address] [place] [address], [place] [address] Oct, [facility] [address] [id number] [address] [place] [address], [place] [address] Oct, [facility] [address] [id number] [address] [place] [address], [place] [address] Oct, [facility] [address] [id number] [address] [place] [address], [place] [address] Oct, [facility] [address] [id number] [address] [place] [address], [place] [address] Sep, [facility] [address] [id number] [address] [place] [address], [place] [address] Sep, [facility] [address] [id number] [address] [place] [address], [place] [address] 18 Sep, 2012 [facility] [address] [id number] [address] [place] [address], [place] [address] 05 Sep, 2012 [facility] [address] [id number] [address] [place] [address], [place] [address] 26 Aug, 2012 [facility] [address] [id number] [address] [place] [address], [place] [address] Aug, [facility] [address] [id number] [address] [place] [address], [place] [address] 18 Aug, 2012 [facility] [place] [address] [id number] [address] [place] [address], [place] [address] 15 Aug, 2012 [facility] [address] [id number] [address] [place] [address], [place] [address] Jun, [facility] [address] [id number] [address] [place] [address], [place] [address] Jun, [facility] [address] [id number] [address] [place] [address], [place] [address] Jun, [facility] [address] [id number] [address] [place] [address], [place] [address] Jun, [facility] [address] [id number] [address] [place] [address], [place] [address] Jun, [facility] [address] [id number] [address] [place] [address], [place] [address] Jun, [facility] [address] [id number] [address] [place] [address], [place] [address] Jun, [facility] [address] [id number] [address] [place] [address], [place] [address] Jun, [facility] [address] [id number] [address] [place] [address], [place] [address] Jun, [facility] [address] [id number] [address] [place] [address], [place] [address] Jun, [facility] [address] [id number] [address] [place] [address], [place] [address] 28 May, 2012 [facility] [address] [id number] [address] [place] [address], [place] [address] May, [facility] [address] [id number] [address] [place] [address], [place] [address] May, [facility] [address] [id number] [address] [place] [address], [place] [address] May, [facility] [address] [id number] [address] [place] [address], [place] [address] 26 May, 2012 [facility] [address] [id number] [address] [place] [address], [place] [address] 16 May, 2012 [facility] [address] [id number] [address] [place] [address], [place] [address] 16 May, 2012 [facility] [address] [id number] [address] [place] [address], [place] [address] 14 May, 2012 [facility] [address] [id number] [address] [place] [address], [place] [address] 14 May, 2012 [facility] [address] [id number] [address] [place] [address], [place] [address] 30 Apr, 2012 [facility] [address] [id number] [address] [place] [address], [place] [address] 30 Apr, 2012 [facility] [address] [id number] [address] [place] [address], [place] [address] Apr, [facility] [address] [id number] [address] [place] [address], [place] [address] 17 Apr, 2012 [facility] [address] [id number] [address] [place] [address], [place] [address] Apr, [facility] [address] [id number] [address] [place] [address], [place] [address] 18 Mar, 2012 [facility] [address] [id number] [address] [place] [address], [place] [address] 17 Mar, 2012 [facility] [address] [id number] [address] [place] [address], [place] [address] 07 Mar, 2012 [facility] [address] [id number] [address] [place] [address], [place] [address] 27 Feb, 2012 [facility] [address] [id number] [address] [place] [address], [place] [address] 16 Feb, 2012 [facility] [address] [id number] [address] [place] [address], [place] [address] 15 Feb, 2012 [facility] [address] [id number] [address] [place] [address], [place] [address] 14 Feb, 2012 [facility] [address] [id number] [address] [place] [address], [place] [address] Jan, [facility] [address] [id number] [address] [place] [address], [place] [address] Jan, [facility] [address] [id number] [address] [place] [address], [place] [address] Jan, [facility] [address] [id number] [address] [place] [address], [place] [address] Jan, [facility] [address] [id number] [address] [place] [address], [place] [address] Jan, [facility] [address] [id number] [address] [place] [address], [place] [address] Jan, [facility] [address] [id number] [address] [place] [address] [place] [address] Dec, [facility] [address] [id number] [address] [place] [address], [place] [address] Dec, [facility] [address] [id number] [address] [place] [address], [place] [address] Dec, [facility] [address] [id number] [address] [place] [address], [place] [address] November, [facility] [address] [id number] [address] [place] [address], [place] [address] November, [facility] [address] [id number] [address] [place] [address], [place] [address] November, [facility] [address] [id number] [address] [place] [address], [place] [address] November, [facility] [address] [id number] [address] [place] [address], [place] [address] Oct, [facility] [address] [id number] [address] [place] [address], [place] [address] Oct, [facility] [address] [id number] [address] [place] [address], [place] [address] Oct, [facility] [address] [id number] [address] [place] [address], [place] [address] Sep, [facility] [address] [id number] [address] [place] [address], [place] [address] Sep, [facility] [address] [id number] [address] [place] [address], [place] [address] Aug, [facility] [address] [id number] [address] [place] [address], [place] [address] Aug, [facility] [address] [id number] [address] [place] [address], [place] [address] Aug, [facility] [address] [id number] [address] [place] [address], [place] [address] Aug, [facility] [address] [id number] [address] [place] [address], [place] [address] Jul, [facility] [place] [address] [id number] [address] [place] [address], [place] [address] Jul, [facility] [address] [id number] [address] [place] [address], [place] [address] Jul, [facility] [place] [address] [id number] [address] [place] [address], [place] [address] Jul, [facility] [place] [address] [id number] [address] [place] [address], [place] [address] Jul, [facility] [place] [address] [id number] [address] [place] [address], [place] [address] Jul, [facility] [address] [id number] [address] [place] [address], [place] [address] Jul, [facility] [place] [address] [id number] [address] [place] [address], [place] [address] Jul, [facility] [address] [id number] [address] [place] [address], [place] [address] Jun, [facility] [address] [id number] [address] [place] [address], [place] [address] Jun, [facility] [address] [id number] [address] [place] [address], [place] [address] Jun, [facility] [address] [id number] [address] [place] [address], [place] [address] Jun, [facility] [address] [id number] [address] [place] [address], [place] [address] Jun, [facility] [address] [id number] [address] [place] [address], [place] [address] May, [facility] [address] [id number] [address] [place] [address], [place] [address] May, [facility] [place] [address] [id number] [address] [place] [address] 17 May, 2011 [facility] [address] [id number] [address] [place] [address], [place] [address] 15 May, 2011 [facility] [address] [id number] [address] [place] [address], [place] [address] May, [facility] [address] [id number] [address] [place] [address], [place] [address] May, [facility] [address] [id number] [address] [place] [address], [place] [address] Apr, [facility] [address] [id number] [address] [place] [address], [place] [address] Apr, [facility] [address] [id number] [address] [place] [address], [place] [address] Apr, [facility] [address] [id number] [address] [place] [address], [place] [address] Feb, [facility] [address] [id number] [address] [place] [address], [place] [address] Feb, [facility] [address] [id number] [address] [place] [address], [place] [address] Oct, [facility] [address] [id number] [address] [place] [address], [place] [address] Jul, [facility] [address] [id number] [address] [place] [address] Jul, [facility] [address] [id number] [address] [place] [address], [place] [address] Jun, [facility] [address] [id number] [address] [place] [address], [place] [address] May, [facility] [address] [id number] [address] [place] [address], [place] [address] May, [facility] [address] [id number] [address] [place] [address], [place] [address] May, [facility] [address] [id number] [address] [address] Apr, [facility] [address] [facility] [id number] [address] [address] Jan, [facility] [address] [facility] [id number] [place] [address] November, IMMUNIZATIONS No Known Immunizations SOCIAL HISTORY Never Assessed REASON FOR VISIT sore throat: had 13 teeth removed on , started having symptoms on ay, has gotten worse over the past 24 hours navarro martell PLAN OF CARE Activity Details Follow Up prn Reason: VITAL SIGNS Height 72 in 2017-06-30 Weight 217.4 lbs 2017-06-30 Temperature 99.5 degrees Fahrenheit 2017-06-30 Heart Rate 80 bpm 2017-06-30 Respiratory Rate 20 2017-06-30 BMI 29.48 kg/m2 2017-06-30 Blood pressure systolic 132 mmHg 2017-06-30 Blood pressure diastolic 78 mmHg 2017-06-30 MEDICATIONS Medication Instructions Dosage Frequency Start Date End Date Duration S tatus Lamotrigine 150 MG Orally at bedtime 1 tablet Active Iron Supplement by oral route Once a day 1 tablet 24h Active Vitamin D 1000 UNIT Orally twice a day 1 tablet 12h Active Loratadine 10 MG Orally Once a day 1 tablet 24h Active Baclofen 10 TAKE ONE TABLET BY MOUTH THREE TIMES A DAY WIT H FOOD OR MILK 30 Active Melatonin 5 mg 0.5 Tablet by Oral route 1 time per day at night November, Active Clindamycin HCl 150 MG Orally every 8 hrs 2 capsules 8h Active Azithromycin 250 MG Orally Once a day 2 tablets on the rst day, then 1 tablet daily for 4 days 24h Jun, Jun, 5 day(s) Active Diflucan 200 MG Orally every 72 hours 1 tablet Jun, Jun, 3 days Active Montelukast Sodium 10 MG Orally at bedtime 1 tablet Active Ranitidine HCl 150 TAKE ONE TABLET BY M OUTH TWICE A DAY NEEDED FOR HEARTBURN FOR 14 DAYS 15 Active BuPROPion HCl 300 mg Orally Once a day 1 tablet 24h Mar, Active Levothyroxine Sodium 100 MCG Orally Once a day 1 tablet on an empty stomach in the morning 24h 30 days Active ProAir HFA 90 mcg/actuation inhale 2 puf fs by Inhalation route every 4 hours as needed PRN shortness of breath/cough Jun, Active Sertraline HCl 100 MG Orally Once a day 1 tablet 24h Active Hydrocodone-Acetaminophen 7.5-325 MG Orally every 6 hrs 1 tablet as n eeded 6h Active Lisinopril 5 mg Orally Once a day 1 tablet 24h Jun, Active Levothyroxine Sodium 100 TAKE ONE TABLET BY MOUTH DAILY 60 Active RESULTS Name Result Date Reference Range STREP A (IN HOUSE) 2017-06-30 STREP A Negative Control + Lot # [id number] Exp date 06/12/2018 PROCEDURES Procedure Date Ordered Result Body Site STREP A ASSAY W/OPTIC Jun 30, 2017 [facility] VISIT ESTABLISHED PATIENT Jun 30, 2017 INSTRUCTIONS MEDICATIONS ADMINISTERED No Known Medications [...]
--- OUTSIDE RECORDS SUMMARY | 2020-01-31 09:55 | XMS REPORT ---
Author Author Ivet WILLSON Organization [facility] Address [address] [place] [address] Care Team Providers Care Medical Services Manager Name Role Phone MADELYN WILLSON Unavailable PROBLEMS Type Condition ICD9-CM Code BLN51-OI Code Onset Dates Condition S tatus SNOMED Code Problem Schizo affective schizophrenia F25.0 Active 712474579 Problem Low back pain, unspecified b ack pain laterality, unspecified chronicity, with sciatica presence unspecified M54.5 Active 728002082 Problem Osteoarthritis M19.90 Active 50940 5006 Problem Secondary hyperparathyroidism, not elsewhere classified E21.1 Active 86024127 Problem Iron deficiency anemia, unspecified iron deficiency an emia type D50.9 Active 07954864 Problem Stage 3 chronic kidney disease N18.3 Active 444934627 Problem Bilateral carotid artery disease I77.9 Active 818964423 Problem Vitamin D deficiency E55.9 Active 91633352 Problem Fibromyalgia M79.7 Active 8847135 05 Problem GERD (gastroesophageal reflux disease) K21.9 Active 344621689 Problem Hypothyroidism E03.9 Active 17966 008 Problem Anxiety F41.9 Active 19166417 Problem Depression F32.9 Active 27838125 Problem Essential hypertension I10 Active 83232451 ALLERGIES Substance Reaction Event Type Date Status Silvadene Unknown Drug Allergy Jul, Active Penicillin V Potassium Unknown Drug Allergy Jul, Activ e Levaquin muscle/joint ache Drug Allergy Jul, Active Feldene Unknown Drug Allergy Jul, Active Cholecalciferol (vitamin D3) 50,000 Unit Capsule threw /meds labs out of whack Non Drug Allergy Jul, Active ENCOUNTERS Encounter Location Date Diagnosis [facility] [address] [facility] [id number] [address] [place] [address] Dec, Fibromyalgia M79.7 ; Osteoar thritis M19.90 and Encounter for medication management Z79.899 [facility] [address] [address] November, Nausea and vomiting, intract ability of vomiting not specified, unspecified vomiting type R11.2 and Dizziness R42 [facility] [address] [address] November, Fibromyalgia M79.7 [facility] [address] [address] November, Medicare annual wellness vis it, initial Z00.00 ; Anxiety F41.9 ; Depression F32.9 ; Stage 3 chronic kidney disease N18.3 ; Fibromyalgia M79.7 ; Essential hypertension I10 ; Secondary hyperparathyroidism, not elsewhere classified E21.1 ; Osteoarthritis M19.90 ; Hypothyroidism E03.9 and Encounter for immunization Z23 [facility] [address] [address] Oct, [place] [address] [address] Oct, Sebaceous cyst L72.3 [facility] [address] [address] Sep, Low back pain, unspecified b ack pain laterality, unspecified chronicity, with sciatica presence unspecified M54.5 and Secondary hyperparathyroidism, not elsewhere classified E21.1 [facility] [address] [address] Sep, Fibromyalgia M79.7 [place] [address] [address] Sep, Fibromyalgia M79.7 ; Plantar fasciitis, bilateral M72.2 ; Essential hypertension I10 ; Depression F32.9 and Epidermoid cyst L72.0 [facility] [address] [address] Jul, [facility] [address] [address] Jul, Fibromyalgia M79.7 ; Iron de ficiency anemia, unspecified iron deficiency anemia type D50.9 and Acute nasopharyngitis J00 [facility] [address] [address] Jun, Sore throat J02.9 and Acute serous otitis media of left ear, recurrence not specified H65.02 [place] [address] [address] Jun, Hypothyroidism E03.9 [place] [address] [address] Jun, [place] [address] [address] Jun, Hypothyroidism E03.9 ; Essen tial hypertension I10 and Osteoarthritis M19.90 [place] [address] [address] May, [facility] [address] [address] May, [place] [address] [address] Feb, [place] [address] [address] Feb, Leonela-menopausal N95.1 and To bacco use Z72.0 [place] [address] [address] Jan, [place] [address] [address] Jan, Osteoarthritis M19.90 ; Bila teral carotid artery disease I77.9 ; Raynauds syndrome I73.00 ; Essential hypertension I10 ; Allergic rhinitis J30.9 ; Stage 3 chronic kidney disease N18.3 ; Fibromyalgia M79.7 ; Hypothyroidism E03.9 ; GERD (gastroesophageal reflux disease) K21.9 and Vitamin D deficiency E55.9 [place] [address] [id number] [address] [place] [address] Dec, Raynauds syndrome I73.00 ; P lantar fascial fibromatosis M72.2 ; Osteoarthritis M19.90 and Fibromyalgia M79.7 [facility] [address] [id number] [address] [place] [address] Dec, [facility] [address] [facility] [id number] [address] [place] [address] Dec, [facility] [address] [id number] [address] [place] [address] Oct, Function kidney decreased N2 8.9 [facility] [address] [id number] [address] [place] [id number] Oct, Dental examination Z01.20 [facility] [address] [facility] [id number] [address] [place] [address] 18 Oct, 2016 Essential hypertension I10 a nd Function kidney decreased N28.9 [facility] [address] [id number] [address] [place] [id number] Oct, Dental examination Z01.20 [facility] [address] [facility] [id number] [address] [place] [address] Oct, [facility] [address] [facility] [id number] [address] [place] [address] Sep, Other specified disorders in volving the immune mechanism D89.89 and Schizo affective schizophrenia F25.0 [facility] [address] [facility] [id number] [address] [place] [address] Sep, Schizo affective schizophren ia F25.0 [facility] [address] [facility] [id number] [address] [place] [address] Sep, Eustachian tube dysfunction, bilateral H69.83 [facility] [address] [facility] [id number] [address] [place] [address] Sep, [facility] [address] [address] 14 Sep, 2016 [facility] [address] [address] 14 Sep, 2016 [place] [address] [address] 13 Sep, 2016 Eustachian tube dysfunction, bilateral H69.83 [place] [address] [address] 09 Sep, 2016 Allergic rhinitis J30.9 ; Es sential hypertension I10 ; Hypothyroidism E03.9 and Schizo affective schizophrenia F25.0 [place] [address] [address] Jul, Eustachian tube dysfunction, bilateral H69.83 and Visit for TB skin test Z11.1 [facility] [address] [address] Jul, Subacute pansinusitis J01.40 [place] [address] [address] Jun, Schizo affective schizophren ia F25.0 ; Depression F32.9 ; Allergic rhinitis J30.9 ; Raynauds syndrome I73.00 ; Essential hypertension I10 ; Slow transit constipation K59.01 ; GERD (gastroesophageal reflux disease) K21.9 ; Hypothyroidism E03.9 ; Nicotine addiction F17.200 ; Other viral agents as the cause of diseases classified elsewhere B97.89 ; Acute upper respiratory infection, unspecified J06.9 and Osteoarthritis M19.90 [place] [address] [address] Jun, Allergic rhinitis J30.9 and GERD (gastroesophageal reflux disease) K21.9 [place] [address] [address] May, [place] [address] [address] Mar, Schizo affective schizophren ia F25.0 [place] [id number] [place] [address] Mar, Schizo affective schizophren ia F25.0 [place] [address] [place] [id number] [address] [place] [address] 15 Mar, 2016 Schizo affective schizophren ia F25.0 [place] [address] [place] [id number] [address] [place] [address] Mar, Acute non-recurrent maxillar y sinusitis J01.00 [place] [address] [place] [id number] [address] [place] [address] Feb, Schizo affective schizophren ia F25.0 [place] [address] [place] [id number] [address] [place] [address] Feb, Contact dermatitis and eczem a L25.9 [place] [address] [address] Jan, [place] [address] [address] Jan, Schizo affective schizophren ia F25.0 ; Slow transit constipation K59.01 ; Essential hypertension I10 ; GERD (gastroesophageal reflux disease) K21.9 ; Hypothyroidism E03.9 ; Osteoarthritis M19.90 ; Low back pain, unspecified back pain laterality, unspecified chronicity, with sciatica presence unspecified M54.5 and Bilateral carotid artery disease I77.9 [place] [address] [place] [address] Oct, [place] [address] [place] [id number] [address] [place] [address] Sep, Hypothyroid E03.9 [place] [address] [place] [id number] [address] [place] [address] Sep, Schizo affective schizophren ia F25.0 ; Depression F32.9 ; Anxiety F41.9 ; Allergic rhinitis J30.9 ; Raynauds syndrome I73.00 ; Insomnia G47.00 ; Essential hypertension I10 ; GERD (gastroesophageal reflux disease) K21.9 ; Hypothyroidism E03.9 and Vitamin D deficiency E55.9 [place] [address] [address] Sep, [facility] [address] [address] Sep, [place] [address] [address] Aug, Allergic rhinitis J30.9 ; De pression F32.9 ; Anxiety F41.9 ; Raynauds syndrome I73.00 ; Insomnia G47.00 and GERD (gastroesophageal reflux disease) K21.9 [place] [address] [address] Aug, MONICA (secretory otitis media) H65.90 and Raynauds syndrome I73.00 [facility] [address] [address] Jul, Acute otitis externa of both ears, unspecified type H60.503 [place] [address] [address] Jun, [place] [address] [address] Jun, Essential hypertension I10 ; Allergic rhinitis J30.9 ; Hypothyroidism E03.9 and Osteoarthritis M19.90 [place] [address] [address] Jun, Routine adult health mainten ance Z00.00 ; Hypothyroidism E03.9 ; Essential hypertension I10 ; Insomnia G47.00 ; Nicotine addiction F17.200 ; Raynauds syndrome I73.00 ; GERD (gastroesophageal reflux disease) K21.9 ; Allergic rhinitis J30.9 ; Anxiety F41.9 ; Depression F32.9 and Schizo affective schizophrenia F25.0 [place] [address] [place] [address] May, Upper respiratory tract infe ction, unspecified type J06.9 [facility] [address] [id number] [address] [place] [address] Mar, [facility] [address] [id number] [id number] Mar, [facility] [address] [id number] [address] [place] [address] Mar, [facility] [address] [id number] [address] [place] [address] Mar, [facility] [address] [id number] [address] [place] [address] Feb, Jaw pain 784.92 and Environm ental and seasonal allergies 477.8 [facility] [address] [id number] [address] [place] [address] Feb, [facility] [address] [id number] [address] [place] [address] Oct, [facility] [address] [id number] [address] [place] [address] Oct, [facility] [address] [id number] [address] [place] [address] Oct, [facility] [address] [id number] [address] [place] [address] Oct, [facility] [address] [id number] [address] [place] [address] Sep, [facility] [address] [id number] [address] [place] [address] Sep, [facility] [address] [id number] [address] [place] [address] Jul, [facility] [address] [id number] [address] [place] [address] Jul, [facility] [address] [id number] [address] [place] [address], [place] [address] Jul, [facility] [address] [id number] [address] [place] [address], [place] [address] Jul, [facility] [address] [id number] [address] [place] [address], [place] [address] Jul, [facility] [address] [id number] [address] [place] [address], [place] [address] Jul, [facility] [address] [id number] [address] [place] [address], [place] [address] Jul, [facility] [address] [id number] [address] [place] [address], [place] [address] Jun, [facility] [address] [id number] [address] [place] [address], [place] [address] Jun, [facility] [address] [id number] [address] [place] [address], [place] [address] Jun, [facility] [address] [id number] [address] [place] [address], [place] [address] 18 Jun, 2014 [facility] [address] [id number] [address] [place] [address], [place] [address] Jun, [facility] [address] [id number] [address] [place] [address], [place] [address] 17 Jun, 2014 [facility] [address] [id number] [address] [place] [address], [place] [address] 16 Jun, 2014 [facility] [address] [id number] [address] [place] [address], [place] [address] 16 Jun, 2014 [facility] [address] [id number] [address] [place] [address], [place] [address] 30 Apr, 2014 [facility] [address] [id number] [address] [place] [address], [place] [address] Apr, [facility] [address] [id number] [address] [place] [address], [place] [address] Mar, [facility] [address] [id number] [facility] [place] [address] 17 Mar, 2014 [facility] [address] [id number] [address] [place] [address], [place] [address] Mar, [facility] [address] [id number] [address] [place] [address], [place] [address] Mar, [facility] [address] [id number] [address] [place] [address], [place] [address] Jan, [facility] [address] [id number] [address] [place] [address], [place] [address] Jan, [facility] [address] [id number] [address] [place] [address], [place] [address] Oct, [facility] [address] [id number] [address] [place] [address], [place] [address] Oct, [facility] [address] [id number] [address] [place] [address], [place] [address] Sep, [facility] [address] [id number] [address] [place] [address], [place] [address] Sep, [facility] [address] [id number] [address] [place] [address], [place] [address] Sep, [facility] [address] [id number] [address] [place] [address], [place] [address] Sep, [facility] [address] [id number] [address] [place] [address], [place] [address] Sep, [facility] [address] [id number] [address] [place] [address], [place] [address] Sep, [facility] [address] [id number] [address] [place] [address], [place] [address] Aug, [facility] [address] [id number] [address] [place] [address], [place] [address] Aug, [facility] [address] [id number] [address] [place] [address], [place] [address] Jul, [facility] [address] [id number] [address] [place] [address], [place] [address] Jul, [facility] [address] [id number] [address] [place] [address], [place] [address] Jul, [facility] [address] [id number] [address] [place] [address], [place] [address] Jul, [facility] [address] [id number] [address] [place] [address], [place] [address] Jun, [facility] [address] [id number] [address] [place] [address], [place] [address] Jun, [facility] [address] [id number] [address] [place] [address], [place] [address] May, [facility] [address] [id number] [address] [place] [address], [place] [address] May, [facility] [address] [id number] [address] [place] [address], [place] [address] Apr, [facility] [address] [id number] [address] [place] [address], [place] [address] Apr, [facility] [address] [id number] [address] [place] [address], [place] [address] Apr, [facility] [address] [id number] [address] [place] [address], [place] [address] Apr, [facility] [address] [id number] [address] [place] [address], [place] [address] Apr, [facility] [address] [id number] [address] [place] [address], [place] [address] Apr, [facility] [address] [id number] [address] [place] [address], [place] [address] 24 Mar, 2013 [facility] [address] [id number] [address] [place] [address], [place] [address] 12 Mar, 2013 [facility] [address] [id number] [address] [place] [address], [place] [address] 09 Mar, 2013 [facility] [address] [id number] [address] [place] [address], [place] [address] 05 Mar, 2013 [facility] [address] [id number] [address] [place] [address], [place] [address] 05 Mar, 2013 [facility] [address] [id number] [address] [place] [address], [place] [address] Feb, [facility] [address] [id number] [address] [place] [address], [place] [address] Feb, [facility] [address] [id number] [address] [place] [address], [place] [address] Feb, [facility] [address] [id number] [address] [place] [address], [place] [address] Feb, [facility] [address] [id number] [address] [place] [address], [place] [address] Jan, [facility] [address] [id number] [address] [place] [address], [place] [address] Jan, [facility] [address] [id number] [address] [place] [address], [place] [address] Jan, [facility] [address] [id number] [address] [place] [address], [place] [address] Jan, [facility] [address] [id number] [address] [place] [address], [place] [address] Jan, [facility] [address] [id number] [address] [place] [address], [place] [address] Jan, [facility] [address] [id number] [address] [place] [address], [place] [address] Dec, [facility] [address] [id number] [address] [place] [address], [place] [address] Dec, [facility] [address] [id number] [address] [place] [address], [place] [address] 19 Dec, 2012 [facility] [address] [id number] [address] [place] [address], [place] [address] 14 Dec, 2012 [facility] [address] [id number] [address] [place] [address], [place] [address] Dec, [facility] [address] [id number] [address] [place] [address], [place] [address] 12 Dec, 2012 [facility] [address] [id number] [address] [place] [address], [place] [address] 11 Dec, 2012 [facility] [address] [id number] [address] [place] [address], [place] [address] 07 Dec, 2012 [facility] [address] [id number] [address] [place] [address], [place] [address] 05 Dec, 2012 [facility] [address] [id number] [address] [place] [address], [place] [address] Dec, [facility] [address] [id number] [address] [place] [address], [place] [address] November, [facility] [address] [id number] [address] [place] [address], [place] [address] November, [facility] [address] [id number] [address] [place] [address], [place] [address] November, [facility] [address] [id number] [address] [place] [address], [place] [address] November, [facility] [address] [id number] [address] [place] [address], [place] [address] November, [facility] [address] [id number] [address] [place] [address], [place] [address] Oct, [facility] [address] [id number] [address] [place] [address], [place] [address] Oct, [facility] [address] [id number] [address] [place] [address], [place] [address] Oct, [facility] [address] [id number] [address] [place] [address], [place] [address] 09 Oct, 2012 [facility] [address] [id number] [address] [place] [address], [place] [address] Oct, [facility] [address] [id number] [address] [place] [address], [place] [address] Sep, [facility] [address] [id number] [address] [place] [address], [place] [address] Sep, [facility] [address] [id number] [address] [place] [address], [place] [address] 18 Sep, 2012 [facility] [address] [id number] [address] [place] [address], [place] [address] 05 Sep, 2012 [facility] [address] [id number] [address] [place] [address], [place] [address] 26 Aug, 2012 [facility] [address] [id number] [address] [place] [address], [place] [address] 18 Aug, 2012 [facility] [address] [id number] [address] [place] [address], [place] [address] 18 Aug, 2012 [facility] [address] [id number] [address] [place] [address], [place] [address] 15 Aug, 2012 [facility] [address] [id number] [address] [place] [address], [place] [address] Jun, [facility] [address] [id number] [address] [place] [address], [place] [address] Jun, [facility] [address] [id number] [address] [place] [address], [place] [address] Jun, [facility] [address] [id number] [address] [place] [address], [place] [address] Jun, [facility] [address] [id number] [address] [place] [address], [place] [address] Jun, [facility] [address] [id number] [address] [place] [address] [address] Jun, [facility] [address] [id number] [address] [place] [address], [place] [address] Jun, [facility] [address] [id number] [address] [place] [address], [place] [address] Jun, [facility] [address] [id number] [address] [place] [address], [place] [address] Jun, [facility] [address] [id number] [address] [place] [address], [place] [address] Jun, [facility] [address] [id number] [address] [place] [address], [place] [address] May, [facility] [address] [id number] [address] [place] [address], [place] [address] May, [facility] [address] [id number] [address] [place] [address], [place] [address] May, [facility] [address] [id number] [address] [place] [address], [place] [address] May, [facility] [address] [id number] [address] [place] [address], [place] [address] 26 May, 2012 [facility] [address] [id number] [address] [place] [address], [place] [address] 16 May, 2012 [facility] [address] [id number] [address] [place] [address], [place] [address] 16 May, 2012 [facility] [address] [id number] [address] [place] [id number] 14 May, 2012 [facility] [address] [id number] [address] [place] [address], [place] [address] 14 May, 2012 [facility] [address] [id number] [address] [place] [address], [place] [address] 30 Apr, 2012 [facility] [address] [id number] [address] [place] [address], [place] [address] 30 Apr, 2012 [facility] [address] [id number] [address] [place] [address], [place] [address] 17 Apr, 2012 [facility] [address] [id number] [address] [place] [address], [place] [address] 17 Apr, 2012 [facility] [address] [id number] [address] [place] [address], [place] [address] 09 Apr, 2012 [facility] [address] [id number] [address] [place] [address], [place] [address] 18 Mar, 2012 [facility] [address] [id number] [address] [place] [address], [place] [address] 17 Mar, 2012 [facility] [address] [id number] [address] [place] [address], [place] [address] 07 Mar, 2012 [facility] [address] [id number] [address] [place] [address], [place] [address] 27 Feb, 2012 [facility] [address] [id number] [address] [place] [address], [place] [address] 16 Feb, 2012 [facility] [address] [id number] [address] [place] [address], [place] [address] 15 Feb, 2012 [facility] [address] [id number] [address] [place] [address], [place] [address] 14 Feb, 2012 [facility] [address] [id number] [address] [place] [address], [place] [address] Jan, [facility] [address] [id number] [address] [place] [address], [place] [address] Jan, [facility] [address] [id number] [address] [place] [address], [place] [address] 24 Jan, 2012 [facility] [address] [id number] [address] [place] [address], [place] [address] Jan, [facility] [address] [id number] [address] [place] [address], [place] [address] 17 Jan, 2012 [facility] [address] [id number] [address] [place] [address], [place] [address] Jan, [facility] [address] [id number] [address] [place] [address], [place] [address] Dec, [facility] [address] [id number] [address] [place] [address], [place] [address] Dec, [facility] [address] [id number] [address] [place] [address], [place] [address] Dec, [facility] [address] [id number] [address] [place] [address], [place] [address] November, [facility] [address] [id number] [address] [place] [address], [place] [address] November, [facility] [address] [id number] [address] [place] [address], [place] [address] November, [facility] [address] [id number] [address] [place] [address], [place] [address] November, [facility] [address] [id number] [address] [place] [address], [place] [address] Oct, [facility] [address] [id number] [address] [place] [address], [place] [address] Oct, [facility] [address] [id number] [address] [place] [address], [place] [address] Oct, [facility] [address] [id number] [address] [place] [address], [place] [address] Sep, [facility] [address] [id number] [address] [place] [address], [place] [address] Sep, [facility] [address] [id number] [address] [place] [address], [place] [address] Aug, [facility] [address] [id number] [address] [place] [address], [place] [address] Aug, [facility] [address] [id number] [address] [place] [address], [place] [address] Aug, [facility] [address] [id number] [address] [place] [address], [place] [address] Aug, [facility] [address] [id number] [address] [place] [address], [place] [address] Jul, [facility] [address] [id number] [address] [place] [address], [place] [address] Jul, [facility] [address] [id number] [address] [place] [address], [place] [address] Jul, [facility] [address] [id number] [address] [place] [address], [place] [address] Jul, [facility] [address] [id number] [address] [place] [address], [place] [address] Jul, [facility] [address] [id number] [address] [place] [address], [place] [address] Jul, [facility] [address] [id number] [address] [place] [address], [place] [address] Jul, [facility] [address] [id number] [address] [place] [address], [place] [address] Jul, [facility] [address] [id number] [address] [place] [address], [place] [address] Jun, [facility] [address] [id number] [address] [place] [address], [place] [address] Jun, [facility] [address] [id number] [address] [place] [address], [place] [address] Jun, [facility] [address] [id number] [address] [place] [address], [place] [address] Jun, [facility] [address] [id number] [address] [place] [address], [place] [address] Jun, [facility] [address] [id number] [address] [place] [address], [place] [address] May, [facility] [address] [id number] [address] [place] [address], [place] [address] May, [facility] [address] [id number] [address] [place] [address], [place] [address] 17 May, 2011 [facility] [address] [id number] [address] [place] [address], [place] [address] 15 May, 2011 [facility] [address] [id number] [address] [place] [address], [place] [address] 08 May, 2011 [facility] [address] [id number] [address] [place] [address], [place] [address] 08 May, 2011 [facility] [address] [id number] [address] [place] [address], [place] [address] Apr, [facility] [address] [id number] [address] [place] [address], [place] [address] Apr, [facility] [address] [id number] [address] [place] [address], [place] [address] Apr, [facility] [address] [id number] [address] [place] [address], [place] [address] Feb, [facility] [address] [id number] [address] [place] [address], [place] [address] Feb, [facility] [address] [id number] [address] [place] [address], [place] [address] Oct, [facility] [address] [id number] [address] [place] [address], [place] [address] Jul, [facility] [address] [id number] [address] [place] [address], [place] [address] Jul, [facility] [address] [id number] [address] [place] [address], [place] [address] Jun, [facility] [address] [id number] [address] [place] [address], [place] [address] May, [facility] [address] [id number] [address] [place] [address], [place] [address] May, [facility] [address] [id number] [address] [place] [address] [address] May, [facility] [address] [facility] [id number] [address] [place] [id number] Apr, [facility] [address] [facility] [id number] [address] [place] [id number] Jan, [facility] [address] [facility] [id number] [address] [place] [id number] November, IMMUNIZATIONS No Known Immunizations SOCIAL HISTORY Never Assessed REASON FOR VISIT pain fibromyaligia, PT has comcerns about pain medications. PT also attempted to give blood the other day and was told her iron is too low so she has concerns a bout that-Martha WATT PLAN OF CARE Activity Details Follow Up 4 Weeks Reason: VITAL SIGNS Height 72 in 2017-07-15 Weight 225.4 lbs 2017-07-15 Temperature 98.2 degrees Fahrenheit 2017-07-15 Heart Rate 66 bpm 2017-07-15 Respiratory Rate 20 2017-07-15 BMI 30.57 kg/m2 2017-07-15 Blood pressure systolic 126 mmHg 2017-07-15 Blood pressure diastolic 76 mmHg 2017-07-15 MEDICATIONS Medication Instructions Dosage Frequency Start Date End Date Duration S tatus Melatonin 5 mg 0.5 Tablet by Oral route 1 time per day at night November, Active ProAir HFA 90 mcg/actuation inhale 2 puf fs by Inhalation route every 4 hours as needed PRN shortness of breath/cough Jun, Active Lisinopril 5 mg Orally Once a day 1 tablet 24h Jun, Active Sertraline HCl 100 MG Orally Once a day 1 tablet 24h Active SudoGest 30 MG Orally every 6 hrs 1 tablet as needed 6h Jul, 8 05 days Active Montelukast Sodium 10 MG Orally at bedtime 1 tablet Active Levothyroxine Sodium 100 MCG Orally Once a day 1 tablet on an empty stomach in the morning 24h 30 days Active Lamotrigine 150 MG Orally at bedtime 1 tablet Active Iron Supplement by oral route Once a day 1 tablet 24h Active Vitamin D 2000 UNIT Orally twice a day 1 tablet 12h Active Hydrocodone-Acetaminophen 7.5-325 MG Orally every 6 hrs 1 tablet as n eeded 6h Not-Taking Loratadine 10 MG Orally Once a day 1 tablet 24h Active BuPROPion HCl 300 mg Orally Once a day 1 tablet 24h Mar, Active Ranitidine HCl 150 TAKE ONE TABLET BY M OUTH TWICE A DAY NEEDED FOR HEARTBURN FOR 14 DAYS 15 Active Lyrica 75 MG Orally Three times a day 1 capsule 1 to 3 hours before bedtime in the evening 8h Jul, 30 days Active Baclofen 10 TAKE ONE TABLET BY MOUTH THREE TIMES A DAY WIT H FOOD OR MILK 30 Active RESULTS Name Result Date Reference Range IRON + TIBC 2017-07-15 IRON, TOTAL 81 40-190 IRON BINDING CAPACITY 293 250-450 % SATURATION 28 11-50 CBC 2017-07-15 WHITE BLOOD CELL COUNT 10.9 3.8-10.8 RED BLOOD CELL COUNT 3.89 3.80-5.10 HEMOGLOBIN 11.7 11.7-15.5 HEMATOCRIT 35.4 35.0-45.0 MCV 91.0 80.0-100.0 MCH 30.1 27.0-33.0 MCHC 33.1 32.0-36.0 RDW 12.5 11.0-15.0 PLATELET COUNT 307 140-400 MPV 10.8 7.5-12.5 ABSOLUTE NEUTROPHILS 6464 1654-4229 ABSOLUTE LYMPHOCYTES 2627 850-3900 ABSOLUTE MONOCYTES 1166 200-950 ABSOLUTE EOSINOPHILS 578 15-500 ABSOLUTE BASOPHILS 65 0-200 NEUTROPHILS 59.3 LYMPHOCYTES 24.1 MONOCYTES 10.7 EOSINOPHILS 5.3 BASOPHILS 0.6 PROCEDURES Procedure Date Ordered Result Body Site [facility] Jul 15, 2017 VENIPUNCT, ROUTINE* Jul 15, 2017 [facility] VISIT ESTABLISHED PATIENT Jul 15, 2017 INSTRUCTIONS MEDICATIONS ADMINISTERED No Known [...]
--- OUTSIDE RECORDS SUMMARY | 2020-01-31 09:55 | XMS REPORT ---
Author Author Ivet WILLSON Organization [facility] Address [address] [place] [address] Care Team Providers Care Alarm Mechanism Adjuster Name Role Phone MADELYN WILLSON Unavailable PROBLEMS Type Condition ICD9-CM Code [id number] Code Onset Dates Condition S tatus SNOMED Code Problem Schizo affective schizophrenia F25.0 Active 159565809 Problem Low back pain, unspecified b ack pain laterality, unspecified chronicity, with sciatica presence unspecified M54.5 Active 800998827 Problem Osteoarthritis M19.90 Active 70146 5006 Problem Secondary hyperparathyroidism, not elsewhere classified E21.1 Active 08024360 Problem Iron deficiency anemia, unspecified iron deficiency an emia type D50.9 Active 91417287 Problem Stage 3 chronic kidney disease N18.3 Active 925814695 Problem Bilateral carotid artery disease I77.9 Active 262529846 Problem Vitamin D deficiency E55.9 Active 36806698 Problem Fibromyalgia M79.7 Active 0588763 05 Problem GERD (gastroesophageal reflux disease) K21.9 Active 151333792 Problem Hypothyroidism E03.9 Active 81383 008 Problem Anxiety F41.9 Active 35853352 Problem Depression F32.9 Active 25215137 Problem Essential hypertension I10 Active 72467573 ALLERGIES No Information ENCOUNTERS Encounter Location Date Diagnosis [facility] [address] [place] [id number] Dec, Fibromyalgia M79.7 ; Osteoar thritis M19.90 and Encounter for medication management Z79.899 [facility] [address] [place] [id number] [address] [place] [id number] November, Nausea and vomiting, intract ability of vomiting not specified, unspecified vomiting type R11.2 and Dizziness R42 [facility] [address] [place] [address] [id number] [address] [place] [address] November, Fibromyalgia M79.7 [facility] [address] [address] November, Medicare annual wellness vis it, initial Z00.00 ; Anxiety F41.9 ; Depression F32.9 ; Stage 3 chronic kidney disease N18.3 ; Fibromyalgia M79.7 ; Essential hypertension I10 ; Secondary hyperparathyroidism, not elsewhere classified E21.1 ; Osteoarthritis M19.90 ; Hypothyroidism E03.9 and Encounter for immunization Z23 [facility] [address] [address] Oct, [place] [address] [address] Oct, Sebaceous cyst L72.3 [place] [address] [address] Sep, Low back pain, unspecified b ack pain laterality, unspecified chronicity, with sciatica presence unspecified M54.5 and Secondary hyperparathyroidism, not elsewhere classified E21.1 [facility] [address] [address] Sep, Fibromyalgia M79.7 [place] [address] [address] Sep, Fibromyalgia M79.7 ; Plantar fasciitis, bilateral M72.2 ; Essential hypertension I10 ; Depression F32.9 and Epidermoid cyst L72.0 [place] [address] [address] Jul, [place] [address] [address] Jul, Fibromyalgia M79.7 ; Iron de ficiency anemia, unspecified iron deficiency anemia type D50.9 and Acute nasopharyngitis J00 [facility] [address] [place] [address] [id number] [address] [place] [phone] Jun, Sore throat J02.9 and Acute serous otitis media of left ear, recurrence not specified H65.02 [place] [address] [address] Jun, Hypothyroidism E03.9 [place] [address] [address] Jun, [place] [address] [address] Jun, Hypothyroidism E03.9 ; Essen tial hypertension I10 and Osteoarthritis M19.90 [place] [address] [address] May, [place] [address] [address] May, [place] [address] [address] Feb, [place] [address] [address] Feb, Leonela-menopausal N95.1 and To bacco use Z72.0 [place] [address] [address] Jan, [place] [address] [address] Jan, Osteoarthritis M19.90 ; Bila teral carotid artery disease I77.9 ; Raynauds syndrome I73.00 ; Essential hypertension I10 ; Allergic rhinitis J30.9 ; Stage 3 chronic kidney disease N18.3 ; Fibromyalgia M79.7 ; Hypothyroidism E03.9 ; GERD (gastroesophageal reflux disease) K21.9 and Vitamin D deficiency E55.9 [place] [address] [address] Dec, Raynauds syndrome I73.00 ; P lantar fascial fibromatosis M72.2 ; Osteoarthritis M19.90 and Fibromyalgia M79.7 [place] [address] [address] Dec, [facility] [address] [id number] [address] [place] [phone] Dec, [facility] [address] [id number] [address] [place] [id number] Oct, Function kidney decreased N2 8.9 [facility] [address] [id number] [address] [place] [id number] Oct, Dental examination Z01.20 [facility] [address] [id number] [address] [place] [id number] 18 Oct, 2016 Essential hypertension I10 a nd Function kidney decreased N28.9 [facility] [address] [id number] [address] [place] [id number] Oct, Dental examination Z01.20 [facility] [address] [id number] [address] [place] [address] Oct, [facility] [address] [facility] [id number] [address] [place] [id number] 24 Sep, 2016 Other specified disorders in volving the immune mechanism D89.89 and Schizo affective schizophrenia F25.0 [facility] [address] [facility] [id number] [address] [place] [id number] 21 Sep, 2016 Schizo affective schizophren ia F25.0 [facility] [address] [id number] [address] [place] [id number] 16 Sep, 2016 Eustachian tube dysfunction, bilateral H69.83 [facility] [address] [id number] [address] [place] [id number] 15 Sep, 2016 [facility] [address] [facility] [id number] [address] [place] [id number] 14 Sep, 2016 [facility] [address] [facility] [id number] [address] [place] [id number] 14 Sep, 2016 [facility] [address] [facility] [id number] [address] [place] [id number] 13 Sep, 2016 Eustachian tube dysfunction, bilateral H69.83 [facility] [address] [place] [id number] [address] [place] [id number] Sep, Allergic rhinitis J30.9 ; Es sential hypertension I10 ; Hypothyroidism E03.9 and Schizo affective schizophrenia F25.0 [facility] [address] [place] [id number] [place] [address] Jul, Eustachian tube dysfunction, bilateral H69.83 and Visit for TB skin test Z11.1 [facility] [address] [place] [address] [id number] [place] [address] Jul, Subacute pansinusitis J01.40 [place] [address] [address] Jun, Schizo affective schizophren ia F25.0 ; Depression F32.9 ; Allergic rhinitis J30.9 ; Raynauds syndrome I73.00 ; Essential hypertension I10 ; Slow transit constipation K59.01 ; GERD (gastroesophageal reflux disease) K21.9 ; Hypothyroidism E03.9 ; Nicotine addiction F17.200 ; Other viral agents as the cause of diseases classified elsewhere B97.89 ; Acute upper respiratory infection, unspecified J06.9 and Osteoarthritis M19.90 [facility] [address] [place] [id number] [address] [place] [phone] Jun, Allergic rhinitis J30.9 and GERD (gastroesophageal reflux disease) K21.9 [place] [address] [place] [address] May, [place] [address] [place] [id number] [address] [place] [address] Mar, Schizo affective schizophren ia F25.0 [place] [address] [place] [id number] [address] [place] [phone] Mar, Schizo affective schizophren ia F25.0 [place] [address] [place] [id number] [address] [place] [id number] 15 Mar, 2016 Schizo affective schizophren ia F25.0 [place] [address] [place] [id number] [place] [address] Mar, Acute non-recurrent maxillar y sinusitis J01.00 [place] [address] [place] [id number] [place] [phone] Feb, Schizo affective schizophren ia F25.0 [place] [address] [address] Feb, Contact dermatitis and eczem a L25.9 [place] [address] [address] Jan, [place] [address] [address] Jan, Schizo affective schizophren ia F25.0 ; Slow transit constipation K59.01 ; Essential hypertension I10 ; GERD (gastroesophageal reflux disease) K21.9 ; Hypothyroidism E03.9 ; Osteoarthritis M19.90 ; Low back pain, unspecified back pain laterality, unspecified chronicity, with sciatica presence unspecified M54.5 and Bilateral carotid artery disease I77.9 [place] [address] [address] Oct, [place] [address] [address] Sep, Hypothyroid E03.9 [place] [address] [address] Sep, Schizo affective schizophren ia F25.0 ; Depression F32.9 ; Anxiety F41.9 ; Allergic rhinitis J30.9 ; Raynauds syndrome I73.00 ; Insomnia G47.00 ; Essential hypertension I10 ; GERD (gastroesophageal reflux disease) K21.9 ; Hypothyroidism E03.9 and Vitamin D deficiency E55.9 [place] [address] [place] [id number] [address] [place] [phone] Sep, [place] [address] [place] [address] Sep, [place] [address] [address] Aug, Allergic rhinitis J30.9 ; De pression F32.9 ; Anxiety F41.9 ; Raynauds syndrome I73.00 ; Insomnia G47.00 and GERD (gastroesophageal reflux disease) K21.9 [place] [address] [address] Aug, MONICA (secretory otitis media) H65.90 and Raynauds syndrome I73.00 [facility] [address] [address] Jul, Acute otitis externa of both ears, unspecified type H60.503 [place] [address] [address] Jun, [place] [address] [address] Jun, Essential hypertension I10 ; Allergic rhinitis J30.9 ; Hypothyroidism E03.9 and Osteoarthritis M19.90 [place] [address] [address] Jun, Routine adult health mainten ance Z00.00 ; Hypothyroidism E03.9 ; Essential hypertension I10 ; Insomnia G47.00 ; Nicotine addiction F17.200 ; Raynauds syndrome I73.00 ; GERD (gastroesophageal reflux disease) K21.9 ; Allergic rhinitis J30.9 ; Anxiety F41.9 ; Depression F32.9 and Schizo affective schizophrenia F25.0 [place] [address] [address] May, Upper respiratory tract infe ction, unspecified type J06.9 [place] [address] [place] [id number] [address] [place] [address] Mar, [facility] [id number] [place], [facility] [id number] Mar, [facility] [address] [id number] [address] [place] [address], [place] [address] Mar, [facility] [address] [id number] [address] [place] [address], [place] [address] Mar, [facility] [address] [id number] [address] [place] [address], [place] [address] Feb, Jaw pain 784.92 and Environm ental and seasonal allergies 477.8 [facility] [address] [id number] [address] [place] [address], [place] [address] Feb, [facility] [address] [id number] [address] [place] [address], [place] [address] Oct, [facility] [address] [id number] [address] [place] [address], [place] [address] Oct, [facility] [address] [id number] [address] [place] [address], [place] [address] Oct, [facility] [address] [id number] [address] [place] [address], [place] [address] Oct, [facility] [address] [id number] [address] [place] [address] Sep, [facility] [address] [id number] [address] [place] [phone] Sep, [facility] [address] [id number] [address] [place] [address] Jul, [facility] [address] [id number] [address] [place] [id number] Jul, [facility] [address] [id number] [address] [place] [address] Jul, [facility] [address] [id number] [address] [place] [id number] Jul, [facility] [address] [id number] [address] [place] [address] Jul, [facility] [address] [id number] [address] [place] [address], [place] [address] Jul, [facility] [address] [id number] [address] [place] [address], [place] [address] Jul, [facility] [address] [id number] [address] [place] [address], [place] [address] Jun, [facility] [address] [id number] [address] [place] [address], [place] [address] Jun, [facility] [address] [id number] [address] [place] [address], [place] [address] Jun, [facility] [address] [id number] [address] [place] [address], [place] [address] 18 Jun, 2014 [facility] [address] [id number] [address] [place] [address], [place] [address] 17 Jun, 2014 [facility] [address] [id number] [address] [place] [address], [place] [address] 17 Jun, 2014 [facility] [address] [id number] [address] [place] [address], [place] [address] 16 Jun, 2014 [facility] [address] [id number] [address] [place] [address], [place] [address] Jun, [facility] [address] [id number] [address] [place] [address], [place] [address] 30 Apr, 2014 [facility] [address] [id number] [address] [place] [address], [place] [address] 30 Apr, 2014 [facility] [address] [id number] [address] [place] [address], [place] [address] 17 Mar, 2014 [facility] [address] [id number] [address] [place] [address], [place] [address] 17 Mar, 2014 [facility] [address] [id number] [address] [place] [address], [place] [address] Mar, [facility] [address] [id number] [address] [place] [address], [place] [address] Mar, [facility] [address] [id number] [address] [place] [address], [place] [address] Jan, [facility] [address] [id number] [address] [place] [address], [place] [address] Jan, [facility] [address] [id number] [address] [place] [address], [place] [address] Oct, [facility] [address] [id number] [address] [place] [address], [place] [address] Oct, [facility] [address] [id number] [address] [place] [address], [place] [address] Sep, [facility] [address] [id number] [address] [place] [address], [place] [address] Sep, [facility] [address] [id number] [address] [place] [address], [place] [address] Sep, [facility] [address] [id number] [address] [place] [address], [place] [address] Sep, [facility] [address] [id number] [address] [place] [address], [place] [address] Sep, [facility] [address] [id number] [address] [place] [address], [place] [address] Sep, [facility] [address] [id number] [address] [place] [address], [place] [address] Aug, [facility] [address] [id number] [address] [place] [address], [place] [address] Aug, [facility] [address] [id number] [address] [place] [address], [place] [address] Jul, [facility] [address] [id number] [address] [place] [address], [place] [address] Jul, [facility] [address] [id number] [address] [place] [address], [place] [address] Jul, [facility] [address] [id number] [address] [place] [address], [place] [address] Jul, [facility] [address] [id number] [address] [place] [address], [place] [address] Jun, [facility] [address] [id number] [address] [place] [address], [place] [address] Jun, [facility] [address] [id number] [address] [place] [address], [place] [address] May, [facility] [address] [id number] [address] [place] [address], [place] [address] May, [facility] [address] [id number] [address] [place] [address], [place] [address] Apr, [facility] [address] [id number] [address] [place] [address], [place] [address] Apr, [facility] [address] [id number] [address] [place] [address], [place] [address] Apr, [facility] [address] [id number] [address] [place] [address], [place] [address] Apr, [facility] [address] [id number] [address] [place] [address] Apr, [facility] [address] [id number] [address] [place] [address] Apr, [facility] [address] [id number] [address] [place] [id number] 24 Mar, 2013 [facility] [address] [id number] [address] [place] [address], [place] [address] 12 Mar, 2013 [facility] [address] [id number] [address] [place] [address], [place] [address] 09 Mar, 2013 [facility] [address] [id number] [address] [place] [id number] 05 Mar, 2013 [facility] [address] [id number] [address] [place] [address] 05 Mar, 2013 [facility] [address] [id number] [address] [place] [address], [place] [address] Feb, [facility] [address] [id number] [address] [place] [address], [place] [address] Feb, [facility] [address] [id number] [address] [place] [address], [place] [address] Feb, [facility] [address] [id number] [address] [place] [address], [place] [address] Feb, [facility] [address] [id number] [address] [place] [address], [place] [address] Jan, [facility] [address] [id number] [address] [place] [address], [place] [address] Jan, [facility] [address] [id number] [address] [place] [address], [place] [address] 16 Jan, 2013 [facility] [address] [id number] [address] [place] [address], [place] [address] Jan, [facility] [address] [id number] [address] [place] [address], [place] [address] Jan, [facility] [address] [id number] [address] [place] [address], [place] [address] Jan, [facility] [address] [id number] [address] [place] [address], [place] [address] Dec, [facility] [address] [id number] [address] [place] [address], [place] [address] Dec, [facility] [address] [id number] [address] [place] [address], [place] [address] Dec, [facility] [address] [id number] [address] [place] [address], [place] [address] 14 Dec, 2012 [facility] [address] [id number] [address] [place] [address], [place] [address] 13 Dec, 2012 [facility] [address] [id number] [address] [place] [address], [place] [address] 12 Dec, 2012 [facility] [address] [id number] [address] [place] [address], [place] [address] Dec, [facility] [address] [id number] [address] [place] [address], [place] [address] 07 Dec, 2012 [facility] [address] [id number] [address] [place] [address], [place] [address] 05 Dec, 2012 [facility] [address] [id number] [address] [place] [address], [place] [address] Dec, [facility] [address] [id number] [address] [place] [address], [place] [address] November, [facility] [address] [id number] [address] [place] [address], [place] [address] November, [facility] [address] [id number] [address] [place] [address], [place] [address] November, [facility] [address] [id number] [address] [place] [address], [place] [address] November, [facility] [address] [id number] [address] [place] [address], [place] [address] November, [facility] [address] [id number] [address] [place] [address], [place] [address] Oct, [facility] [address] [id number] [address] [place] [address], [place] [address] Oct, [facility] [address] [id number] [address] [place] [address], [place] [address] Oct, [facility] [address] [id number] [address] [place] [address], [place] [address] Oct, [facility] [address] [id number] [address] [place] [address], [place] [address] Oct, [facility] [address] [id number] [address] [place] [address], [place] [address] Sep, [facility] [address] [id number] [address] [place] [address], [place] [address] Sep, [facility] [address] [id number] [address] [place] [address], [place] [address] 18 Sep, 2012 [facility] [address] [id number] [address] [place] [address], [place] [address] 05 Sep, 2012 [facility] [address] [id number] [address] [place] [address], [place] [address] 26 Aug, 2012 [facility] [address] [id number] [address] [place] [address], [place] [address] Aug, [facility] [address] [id number] [address] [place] [address], [place] [address] 18 Aug, 2012 [facility] [address] [id number] [address] [place] [address], [place] [id number] 15 Aug, 2012 [facility] [address] [id number] [address] [place] [address], [place] [address] Jun, [facility] [address] [id number] [address] [place] [address], [place] [address] Jun, [facility] [address] [id number] [address] [place] [address], [place] [address] Jun, [facility] [address] [id number] [address] [place] [address], [place] [address] Jun, [facility] [address] [id number] [address] [place] [address], [place] [address] Jun, [facility] [address] [id number] [address] [place] [address], [place] [address] Jun, [facility] [address] [id number] [address] [place] [address], [place] [address] Jun, [facility] [address] [id number] [address] [place] [address], [place] [address] Jun, [facility] [address] [id number] [address] [place] [address], [place] [address] Jun, [facility] [address] [id number] [address] [place] [address], [place] [address] Jun, [facility] [address] [id number] [address] [place] [address], [place] [id number] 28 May, 2012 [facility] [address] [id number] [address] [place] [address], [place] [address] 27 May, 2012 [facility] [address] [id number] [address] [place] [address], [place] [address] 27 May, 2012 [facility] [address] [id number] [address] [place] [address], [place] [address] May, [facility] [address] [id number] [address] [place] [address], [place] [address] May, [facility] [address] [id number] [address] [place] [address], [place] [address] 16 May, 2012 [facility] [address] [id number] [address] [place] [address], [place] [id number] 16 May, 2012 [facility] [address] [id number] [address] [place] [address], [place] [address] 14 May, 2012 [facility] [address] [id number] [address] [place] [address], [place] [address] 14 May, 2012 [facility] [address] [id number] [address] [place] [address], [place] [address] 30 Apr, 2012 [facility] [address] [id number] [address] [place] [address], [place] [address] 30 Apr, 2012 [facility] [address] [id number] [address] [place] [address], [place] [address] 17 Apr, 2012 [facility] [address] [id number] [address] [place] [address], [place] [address] 17 Apr, 2012 [facility] [address] [id number] [address] [place] [address], [place] [address] 09 Apr, 2012 [facility] [address] [id number] [address] [place] [address], [place] [address] 18 Mar, 2012 [facility] [address] [id number] [address] [place] [address], [place] [address] 17 Mar, 2012 [facility] [address] [id number] [address] [place] [address], [place] [address] 07 Mar, 2012 [facility] [address] [id number] [address] [place] [address], [place] [address] 27 Feb, 2012 [facility] [address] [id number] [address] [place] [address], [place] [address] 16 Feb, 2012 [facility] [address] [id number] [address] [place] [address], [place] [address] 15 Feb, 2012 [facility] [address] [id number] [address] [place] [address], [place] [address] 14 Feb, 2012 [facility] [address] [id number] [address] [place] [address], [place] [address] Jan, [facility] [address] [id number] [address] [place] [address], [place] [address] Jan, [facility] [address] [id number] [address] [place] [address], [place] [address] Jan, [facility] [address] [id number] [address] [place] [address], [place] [address] Jan, [facility] [address] [id number] [address] [place] [address], [place] [address] Jan, [facility] [address] [id number] [address] [place] [address], [place] [address] Jan, [facility] [address] [id number] [address] [place] [address], [place] [address] Dec, [facility] [address] [id number] [address] [place] [address], [place] [address] 14 Dec, 2011 [facility] [address] [id number] [address] [place] [id number] Dec, [facility] [address] [id number] [address] [place] [address], [place] [address] November, [facility] [address] [id number] [address] [place] [address], [place] [address] November, [facility] [address] [id number] [address] [place] [address], [place] [address] November, [facility] [address] [id number] [address] [place] [address], [place] [address] November, [facility] [address] [id number] [address] [place] [address], [place] [address] Oct, [facility] [address] [id number] [address] [place] [address], [place] [address] Oct, [facility] [address] [id number] [address] [place] [address], [place] [address] Oct, [facility] [address] [id number] [address] [place] [address], [place] [address] Sep, [facility] [address] [id number] [address] [place] [address], [place] [address] Sep, [facility] [address] [id number] [address] [place] [address], [place] [address] Aug, [facility] [address] [id number] [address] [place] [address], [place] [address] Aug, [facility] [address] [id number] [address] [place] [address], [place] [address] Aug, [facility] [address] [id number] [address] [place] [address], [place] [address] Aug, [facility] [address] [id number] [address] [place] [address], [place] [address] Jul, [facility] [address] [id number] [address] [place] [address], [place] [address] Jul, [facility] [address] [id number] [address] [place] [address], [place] [address] Jul, [facility] [address] [id number] [address] [place] [address], [place] [address] Jul, [facility] [address] [id number] [address] [place] [address], [place] [address] Jul, [facility] [address] [id number] [address] [place] [address], [place] [address] Jul, [facility] [address] [id number] [address] [place] [address], [place] [address] Jul, [facility] [address] [id number] [address] [place] [address], [place] [address] Jul, [facility] [address] [id number] [address] [place] [address], [place] [address] Jun, [facility] [address] [id number] [address] [place] [address], [place] [address] Jun, [facility] [address] [id number] [address] [place] [address], [place] [address] Jun, [facility] [address] [id number] [address] [place] [address], [place] [address] 08 Jun, 2011 [facility] [address] [id number] [address] [place] [address], [place] [address] Jun, [facility] [address] [id number] [address] [place] [address], [place] [address] May, [facility] [address] [id number] [address] [place] [address], [place] [address] May, [facility] [address] [id number] [address] [place] [address], [place] [address] 17 May, 2011 [facility] [address] [id number] [address] [place] [address], [place] [address] 15 May, 2011 [facility] [address] [id number] [address] [place] [address], [place] [address] 08 May, 2011 [facility] [address] [id number] [address] [place] [address], [place] [address] 08 May, 2011 [facility] [address] [id number] [address] [place] [address], [place] [address] Apr, [facility] [address] [id number] [address] [place] [address], [place] [address] Apr, [facility] [address] [id number] [address] [place] [address], [place] [address] Apr, [facility] [address] [id number] [address] [place] [address], [place] [address] Feb, [facility] [address] [id number] [address] [place] [address], [place] [address] Feb, [facility] [address] [id number] [address] [place] [address], [place] [address] Oct, [facility] [address] [id number] [address] [place] [address], [place] [address] Jul, [facility] [address] [id number] [address] [place] [address], [place] [address] Jul, [facility] [address] [id number] [address] [place] [address], [place] [address] Jun, [facility] [address] [id number] [address] [place] [address], [place] [address] May, [facility] [address] [id number] [address] [place] [id number] May, [facility] [address] [id number] [address] [place] [address], [place] [address] May, [facility] [address] [id number] [address] [place] [address], [place] [address] Apr, [facility] [address] [id number] [address] [place] [address], [place] [address] Jan, [facility] [address] [id number] [address] [place] [address] November, IMMUNIZATIONS No Known Immunizations SOCIAL HISTORY Never Assessed REASON FOR VISIT medication PLAN OF CARE VITAL SIGNS MEDICATIONS No [...]
--- OUTSIDE RECORDS SUMMARY | 2020-01-31 09:55 | XMS REPORT ---
Author Author Ivet WILLSON Organization [facility] Address [address] [place] [address] Care Team Providers Care Line Rider Name Role Phone MADELYN WILLSON Unavailable PROBLEMS Type Condition ICD9-CM Code ITI06-EX Code Onset Dates Condition S tatus SNOMED Code Problem Schizo affective schizophrenia F25.0 Active 283333722 Problem Low back pain, unspecified b ack pain laterality, unspecified chronicity, with sciatica presence unspecified M54.5 Active 022192976 Problem Osteoarthritis M19.90 Active 57495 5006 Problem Secondary hyperparathyroidism, not elsewhere classified E21.1 Active 87870629 Problem Iron deficiency anemia, unspecified iron deficiency an emia type D50.9 Active 94878395 Problem Stage 3 chronic kidney disease N18.3 Active 776792006 Problem Bilateral carotid artery disease I77.9 Active 505449610 Problem Vitamin D deficiency E55.9 Active 92844633 Problem Fibromyalgia M79.7 Active 7032253 05 Problem GERD (gastroesophageal reflux disease) K21.9 Active 581430355 Problem Hypothyroidism E03.9 Active 25395 008 Problem Anxiety F41.9 Active 21331005 Problem Depression F32.9 Active 23407738 Problem Essential hypertension I10 Active 26843845 ALLERGIES No Information ENCOUNTERS Encounter Location Date Diagnosis [facility] [address] [id number] [address] [place] [phone] Dec, [facility] [address] [id number] [address] [place] [id number] November, Nausea and vomiting, intract ability of vomiting not specified, unspecified vomiting type R11.[address] [facility] [address] [id number] [address] [place] [id number] November, Fibromyalgia M79.7 [facility] [id number] [place] [address] November, Medicare annual wellness vis it, initial Z00.00 ; Anxiety F41.9 ; Depression F32.9 ; Stage 3 chronic kidney disease N18.3 ; Fibromyalgia M79.7 ; Essential hypertension I10 ; Secondary hyperparathyroidism, not elsewhere classified E21.1 ; Osteoarthritis M19.90 ; Hypothyroidism E03.9 and Encounter for immunization Z23 [place] [address] [address] Oct, [place] [address] [address] Oct, Sebaceous cyst L72.3 [place] [address] [address] Sep, Low back pain, unspecified b ack pain laterality, unspecified chronicity, with sciatica presence unspecified M54.5 and Secondary hyperparathyroidism, not elsewhere classified E21.1 [place] [address] [address] Sep, Fibromyalgia M79.7 [place] [address] [address] Sep, Fibromyalgia M79.7 ; Plantar fasciitis, bilateral M72.2 ; Essential hypertension I10 ; Depression F32.9 and Epidermoid cyst L72.0 [place] [address] [address] Jul, [place] [address] [address] Jul, Fibromyalgia M79.7 ; Iron de ficiency anemia, unspecified iron deficiency anemia type D50.9 and Acute nasopharyngitis J00 [facility] [address] [id number] [address] [place] [address] Jun, Sore throat J02.9 and Acute serous otitis media of left ear, recurrence not specified H65.02 [place] [address] [address] Jun, Hypothyroidism E03.9 [facility] [address] [facility] [id number] [address] [place] [address] Jun, [facility] [id number] [address] [place] [address] Jun, Hypothyroidism E03.9 ; Essen tial hypertension I10 and Osteoarthritis M19.90 [place] [address] [address] May, [facility] [id number] [place] [phone] May, [place] [id number] [place] [address] Feb, [place] [address] [address] Feb, Leonela-menopausal N95.1 and To bacco use Z72.0 [place] [address] [place] [id number] [address] [place] [address] Jan, [place] [address] [address] Jan, Osteoarthritis M19.90 ; Bila teral carotid artery disease I77.9 ; Raynauds syndrome I73.00 ; Essential hypertension I10 ; Allergic rhinitis J30.9 ; Stage 3 chronic kidney disease N18.3 ; Fibromyalgia M79.7 ; Hypothyroidism E03.9 ; GERD (gastroesophageal reflux disease) K21.9 and Vitamin D deficiency E55.9 [place] [address] [place] [address] [id number] [address] [place] [address] Dec, Raynauds syndrome I73.00 ; P lantar fascial fibromatosis M72.2 ; Osteoarthritis M19.90 and Fibromyalgia M79.7 [place] [address] [place] [id number] [address] [place] [address] Dec, [place] [address] [place] [id number] [place] [address] 13 Dec, 2016 [facility] [address] [id number] [address] [place] [address] Oct, Function kidney decreased N2 8.9 [facility] [address] [id number] [address] [place] [id number] Oct, Dental examination Z01.20 [facility] [address] [id number] [address] [place] [id number] 18 Oct, 2016 Essential hypertension I10 a nd Function kidney decreased N28.9 [facility] [address] [id number] [address] [place] [id number] 04 Oct, [address] [facility] [address] [id number] [address] [place] [address] 03 Oct, 2016 [facility] [address] [id number] [address] [place] [id number] 24 Sep, 2016 Other specified disorders in volving the immune mechanism D89.89 and Schizo affective schizophrenia F25.0 [facility] [address] [id number] [address] [place] [id number] 21 Sep, 2016 Schizo affective schizophren ia F25.0 [facility] [address] [id number] [address] [place] [id number] 16 Sep, 2016 Eustachian tube dysfunction, bilateral H69.83 [facility] [address] [id number] [address] [place] [address] 15 Sep, 2016 [facility] [address] [id number] [address] [place] [address] 14 Sep, 2016 [facility] [address] [id number] [address] [place] [id number] 14 Sep, 2016 [facility] [address] [id number] [address] [place] [id number] 13 Sep, 2016 Eustachian tube dysfunction, bilateral H69.83 [facility] [address] [address] Sep, Allergic rhinitis J30.9 ; Es sential hypertension I10 ; Hypothyroidism E03.9 and Schizo affective schizophrenia F25.0 [facility] [address] [address] Jul, Eustachian tube dysfunction, bilateral H69.83 and Visit for TB skin test Z11.1 [facility] [address] [address] Jul, Subacute pansinusitis J01.40 [place] [address] [address] Jun, Schizo affective schizophren ia F25.0 ; Depression F32.9 ; Allergic rhinitis J30.9 ; Raynauds syndrome I73.00 ; Essential hypertension I10 ; Slow transit constipation K59.01 ; GERD (gastroesophageal reflux disease) K21.9 ; Hypothyroidism E03.9 ; Nicotine addiction F17.200 ; Other viral agents as the cause of diseases classified elsewhere B97.89 ; Acute upper respiratory infection, unspecified J06.9 and Osteoarthritis M19.90 [place] [address] [address] Jun, Allergic rhinitis J30.9 and GERD (gastroesophageal reflux disease) K21.9 [place] [address] [address] May, [place] [address] [address] Mar, Schizo affective schizophren ia F25.0 [place] [address] [address] Mar, Schizo affective schizophren ia F25.0 [place] [address] [address] 15 Mar, 2016 Schizo affective schizophren ia F25.0 [place] [address] [address] Mar, Acute non-recurrent maxillar y sinusitis J01.00 [place] [address] [address] Feb, Schizo affective schizophren ia F25.0 [place] [address] [address] Feb, Contact dermatitis and eczem a L25.9 [place] [address] [address] Jan, [place] [address] [address] Jan, Schizo affective schizophren ia F25.0 ; Slow transit constipation K59.01 ; Essential hypertension I10 ; GERD (gastroesophageal reflux disease) K21.9 ; Hypothyroidism E03.9 ; Osteoarthritis M19.90 ; Low back pain, unspecified back pain laterality, unspecified chronicity, with sciatica presence unspecified M54.5 and Bilateral carotid artery disease I77.9 [place] [address] [address] Oct, [place] [address] [address] Sep, Hypothyroid E03.9 [place] [address] [address] Sep, Schizo affective schizophren ia F25.0 ; Depression F32.9 ; Anxiety F41.9 ; Allergic rhinitis J30.9 ; Raynauds syndrome I73.00 ; Insomnia G47.00 ; Essential hypertension I10 ; GERD (gastroesophageal reflux disease) K21.9 ; Hypothyroidism E03.9 and Vitamin D deficiency E55.9 [place] [address] [address] Sep, [place] [address] [address] Sep, [place] [address] [place] [address] 15 Aug, 2015 Allergic rhinitis J30.9 ; De pression F32.9 ; Anxiety F41.9 ; Raynauds syndrome I73.00 ; Insomnia G47.00 and GERD (gastroesophageal reflux disease) K21.9 [facility] [address] [place] [address] Aug, MONICA (secretory otitis media) H65.90 and Raynauds syndrome I73.00 [facility] [address] [id number] [address] [place] [address] Jul, Acute otitis externa of both ears, unspecified type H60.503 [place] [address] [id number] [address] [place] [address] Jun, [place] [address] [address] Jun, Essential hypertension I10 ; Allergic rhinitis J30.9 ; Hypothyroidism E03.9 and Osteoarthritis M19.90 [place] [address] [address] Jun, Routine adult health mainten ance Z00.00 ; Hypothyroidism E03.9 ; Essential hypertension I10 ; Insomnia G47.00 ; Nicotine addiction F17.200 ; Raynauds syndrome I73.00 ; GERD (gastroesophageal reflux disease) K21.9 ; Allergic rhinitis J30.9 ; Anxiety F41.9 ; Depression F32.9 and Schizo affective schizophrenia F25.0 [place] [address] [place] [id number] May, Upper respiratory tract infe ction, unspecified type J06.9 [place] [address] [id number] [place] [address] Mar, [facility] [address] [id number] Payam MORGAN S [id number] Mar, [place] [address] [place] [address] Mar, [facility] [address] [id number] [address] [place] [address], [place] [address] Mar, [facility] [address] [id number] [address] [place] [address] Feb, Jaw pain 784.92 and Environm ental and seasonal allergies 477.8 [facility] [address] [id number] [address] [place] [address], [place] [address] Feb, [facility] [address] [id number] [address] [place] [address], [place] [address] Oct, [facility] [address] [id number] [address] [place] [address], [place] [address] Oct, [facility] [address] [id number] [address] [place] [address], [place] [address] Oct, [facility] [address] [id number] [address] [place] [phone] Oct, [facility] [address] [id number] [address] [place] [address], [place] [address] Sep, [facility] [address] [id number] [address] [place] [address] Sep, [facility] [address] [id number] [address] [place] [phone] Jul, [facility] [address] [id number] [address] [place] [phone] Jul, [facility] [address] [id number] [address] [place] [address], [place] [address] Jul, [facility] [address] [id number] [address] [place] [address], [place] [address] Jul, [facility] [address] [id number] [address] [place] [phone] Jul, [facility] [address] [id number] [address] [place] [address] [place] [address] Jul, [facility] [address] [id number] [address] [place] [address], [place] [address] Jul, [facility] [address] [id number] [address] [place] [address], [place] [address] Jun, [facility] [address] [id number] [address] [place] [address], [place] [address] 31 Jun, 2014 [facility] [address] [id number] [address] [place] [address], [place] [address] 22 Jun, 2014 [facility] [address] [id number] [address] [place] [address], [place] [address] 18 Jun, 2014 [facility] [address] [id number] [address] [place] [address], [place] [address] 17 Jun, 2014 [facility] [address] [id number] [address] [place] [address], [place] [address] 17 Jun, 2014 [facility] [address] [id number] [address] [place] [address], [place] [address] 16 Jun, 2014 [facility] [address] [id number] [address] [place] [address], [place] [address] 16 Jun, 2014 [facility] [address] [id number] [address] [place] [address], [place] [address] 30 Apr, 2014 [facility] [address] [id number] [address] [place] [address], [place] [address] 30 Apr, 2014 [facility] [address] [id number] [address] [place] [address], [place] [address] 17 Mar, 2014 [facility] [address] [id number] [address] [place] [address], [place] [address] 17 Mar, 2014 [facility] [address] [id number] [address] [place] [address], [place] [address] 03 Mar, 2014 [facility] [address] [id number] [address] [place] [address], [place] [address] 03 Mar, 2013 [facility] [address] [id number] [facility] [place] [address] Jan, [facility] [address] [id number] [address] [place] [address], [place] [address] Jan, [facility] [address] [id number] [address] [place] [address], [place] [address] Oct, [facility] [address] [id number] [address] [place] [address], [place] [address] Oct, [facility] [address] [id number] [address] [place] [address], [place] [address] Sep, [facility] [address] [id number] [address] [place] [address], [place] [address] Sep, [facility] [address] [id number] [address] [place] [address], [place] [address] Sep, [facility] [address] [id number] [address] [place] [address], [place] [address] Sep, [facility] [address] [id number] [address] [place] [address], [place] [address] Sep, [facility] [address] [id number] [address] [place] [address], [place] [address] Sep, [facility] [address] [id number] [address] [place] [address], [place] [address] Aug, [facility] [address] [id number] [address] [place] [address], [place] [address] Aug, [facility] [address] [id number] [address] [place] [address], [place] [address] Jul, [facility] [address] [id number] [address] [place] [address], [place] [address] Jul, [facility] [address] [id number] [address] [place] [address], [place] [address] Jul, [facility] [address] [id number] [place] [address] Jul, [facility] [address] [id number] [address] [place] [address], [place] [address] Jun, [facility] [address] [id number] [address] [place] [address], [place] [address] Jun, [facility] [address] [id number] [address] [place] [address], [place] [address] May, [facility] [address] [id number] [address] [place] [id number] May, [facility] [address] [id number] [address] [place] [address], [place] [address] Apr, [facility] [address] [id number] [address] [place] [address] Apr, [facility] [address] [id number] [address] [place] [address], [place] [address] Apr, [facility] [address] [id number] [address] [place] [id number] Apr, [facility] [address] [id number] [address] [place] [address] Apr, [facility] [address] [id number] [address] [place] [address], [place] [address] Apr, [facility] [address] [id number] [address] [place] [address] 24 Mar, 2013 [facility] [address] [id number] [address] [place] [address] 12 Mar, 2012 [facility] [address] [id number] [address] [place] [address], [place] [address] 09 Mar, 2012 [facility] [address] [id number] [address] [place] [address], [place] [address] 05 Mar, 2012 [facility] [address] [id number] [address] [place] [id number] 05 Mar, 2012 [facility] [address] [id number] [facility] [place] [address] 30 Feb, 2013 [facility] [address] [id number] [address] [place] [address], [place] [address] Feb, [facility] [address] [id number] [address] [place] [address], [place] [address] Feb, [facility] [address] [id number] [address] [place] [address], [place] [address] Feb, [facility] [address] [id number] [address] [place] [address], [place] [address] Jan, [facility] [address] [id number] [address] [place] [address], [place] [address] 17 Jan, 2013 [facility] [address] [id number] [address] [place] [address], [place] [address] 16 Jan, 2013 [facility] [address] [id number] [address] [place] [address], [place] [address] Jan, [facility] [address] [id number] [address] [place] [address], [place] [address] Jan, [facility] [address] [id number] [address] [place] [address], [place] [address] Jan, [facility] [address] [id number] [address] [place] [address], [place] [address] Dec, [facility] [address] [id number] [address] [place] [address], [place] [address] Dec, [facility] [address] [id number] [address] [place] [address], [place] [address] Dec, [facility] [address] [id number] [address] [place] [address], [place] [address] 14 Dec, 2012 [facility] [address] [id number] [address] [place] [address], [place] [address] 13 Dec, 2012 [facility] [address] [id number] [address] [place] [address], [place] [address] Dec, [facility] [address] [id number] [address] [place] [address], [place] [address] Dec, [facility] [address] [id number] [address] [place] [address], [place] [address] Dec, [facility] [address] [id number] [address] [place] [address], [place] [address] Dec, [facility] [address] [id number] [address] [place] [address], [place] [id number] Dec, [facility] [address] [id number] [address] [place] [address], [place] [id number] November, [facility] [address] [id number] [address] [place] [address], [place] [id number] November, [facility] [address] [id number] [address] [place] [address], [place] [id number] November, [facility] [address] [id number] [address] [place] [address], [place] [id number] November, [facility] [address] [id number] [address] [place] [address], [place] [id number] November, [facility] [address] [id number] [address] [place] [address], [place] [id number] Oct, [facility] [address] [id number] [address] [place] [address], [place] [id number] Oct, [facility] [address] [id number] [address] [place] [address], [place] [id number] Oct, [facility] [address] [id number] [address] [place] [address], [place] [id number] Oct, [facility] [address] [id number] [address] [place] [address], [place] [id number] Oct, [facility] [address] [id number] [address] [place] [address], [place] [id number] Sep, [facility] [address] [id number] [address] [place] [address], [place] [id number] Sep, [facility] [address] [id number] [address] [place] [address], [place] [id number] 18 Sep, 2012 [facility] [address] [id number] [address] [place] [address], [place] [id number] 05 Sep, 2012 [facility] [address] [id number] [address] [place] [address], [place] [id number] 26 Aug, 2012 [facility] [address] [id number] [address] [place] [address], [place] [id number] 18 Aug, 2012 [facility] [address] [id number] [address] [place] [address], [place] [id number] 18 Aug, 2012 [facility] [address] [id number] [address] [place] [address], [place] [id number] 15 Aug, 2012 [facility] [address] [id number] [address] [place] [address], [place] [id number] 17 Jun, 2012 [facility] [address] [id number] [address] [place] [address], [place] [id number] Jun, [facility] [address] [id number] [address] [place] [address], [place] [id number] Jun, [facility] [address] [id number] [address] [place] [address], [place] [id number] Jun, [facility] [address] [id number] [address] [place] [address], [place] [id number] Jun, [facility] [address] [id number] [address] [place] [address], [place] [id number] Jun, [facility] [address] [id number] [address] [place] [address], [place] [address] Jun, [facility] [address] [id number] [address] [place] [address], [place] [id number] Jun, [facility] [address] [id number] [address] [place] [address], [place] [address] Jun, [facility] [address] [id number] [address] [place] [address], [place] [address] Jun, [facility] [address] [id number] [address] [place] [address], [place] [address] May, [facility] [address] [id number] [address] [place] [address], [place] [id number] May, [facility] [address] [id number] [address] [place] [address], [place] [address] May, [facility] [address] [id number] [address] [place] [address], [place] [address] May, [facility] [address] [id number] [address] [place] [address], [place] [address] May, [facility] [address] [id number] [address] [place] [address], [place] [id number] 16 May, 2012 [facility] [address] [id number] [address] [place] [address], [place] [id number] 16 May, 2012 [facility] [address] [id number] [address] [place] [address], [place] [address] May, [facility] [address] [id number] [address] [place] [address], [place] [address] 14 May, 2012 [facility] [address] [id number] [address] [place] [address], [place] [id number] 30 Apr, 2012 [facility] [address] [id number] [address] [place] [address], [place] [id number] 30 Apr, 2012 [facility] [address] [id number] [address] [place] [address], [place] [address] Apr, [facility] [address] [id number] [address] [place] [address], [place] [address] Apr, [facility] [address] [id number] [address] [place] [address], [place] [address] Apr, [facility] [address] [id number] [address] [place] [address], [place] [address] 18 Mar, 2012 [facility] [address] [id number] [address] [place] [address], [place] [id number] 17 Mar, 2012 [facility] [address] [id number] [address] [place] [address], [place] [id number] 07 Mar, 2012 [facility] [address] [id number] [address] [place] [address], [place] [address] 27 Feb, 2012 [facility] [address] [id number] [address] [place] [address], [place] [id number] 16 Feb, 2012 [facility] [address] [id number] [address] [place] [address], [place] [address] 15 Feb, 2012 [facility] [address] [id number] [address] [place] [address], [place] [address] 14 Feb, 2012 [facility] [address] [id number] [address] [place] [address], [place] [address] Jan, [facility] [address] [id number] [address] [place] [address], [place] [address] Jan, [facility] [address] [id number] [address] [place] [address], [place] [address] Jan, [facility] [address] [id number] [address] [place] [address], [place] [address] Jan, [facility] [address] [id number] [address] [place] [address], [place] [id number] 17 Jan, 2012 [facility] [address] [id number] [address] [place] [address], [place] [address] Jan, [facility] [address] [id number] [address] [place] [address], [place] [address] Dec, [facility] [address] [id number] [address] [place] [address], [place] [address] 14 Dec, 2011 [facility] [address] [id number] [address] [place] [address], [place] [address] Dec, [facility] [address] [id number] [address] [place] [address], [place] [address] November, [facility] [address] [id number] [address] [place] [address], [place] [address] November, [facility] [address] [id number] [address] [place] [address], [place] [id number] November, [facility] [address] [id number] [address] [place] [address], [place] [address] November, [facility] [address] [id number] [address] [place] [address], [place] [address] Oct, [facility] [address] [id number] [address] [place] [address], [place] [address] Oct, [facility] [address] [id number] [address] [place] [address], [place] [address] Oct, [facility] [address] [id number] [address] [place] [address], [place] [id number] Sep, [facility] [address] [id number] [address] [place] [address], [place] [id number] Sep, [facility] [address] [id number] [address] [place] [address], [place] [address] Aug, [facility] [address] [id number] [address] [place] [address], [place] [address] Aug, [facility] [address] [id number] [address] [place] [address], [place] [address] Aug, [facility] [address] [id number] [address] [place] [address], [place] [address] Aug, [facility] [address] [id number] [address] [place] [address], [place] [address] Jul, [facility] [address] [id number] [address] [place] [address], [place] [address] Jul, [facility] [address] [id number] [address] [place] [address], [place] [address] Jul, [facility] [address] [id number] [address] [place] [address], [place] [address] Jul, [facility] [address] [id number] [address] [place] [address], [place] [id number] Jul, [facility] [address] [id number] [address] [place] [address], [place] [address] Jul, [facility] [address] [id number] [address] [place] [address], [place] [address] Jul, [facility] [address] [id number] [address] [place] [address], [place] [address] Jul, [facility] [address] [id number] [address] [place] [address], [place] [address] 30 Jun, 2011 [facility] [address] [id number] [address] [place] [address], [place] [address] Jun, [facility] [address] [id number] [address] [place] [address], [place] [address] 15 Jun, 2011 [facility] [address] [id number] [address] [place] [address], [place] [address] Jun, [facility] [address] [id number] [address] [place] [address], [place] [address] Jun, [facility] [address] [id number] [address] [place] [address], [place] [address] May, [facility] [address] [id number] [address] [place] [address], [place] [address] May, [facility] [address] [id number] [address] [place] [address], [place] [address] 17 May, 2011 [facility] [address] [id number] [address] [place] [address], [place] [address] 15 May, 2011 [facility] [address] [id number] [address] [place] [address], [place] [address] 08 May, 2011 [facility] [address] [id number] [address] [place] [address], [place] [id number] 08 May, 2011 [facility] [address] [id number] [address] [place] [address], [place] [id number] 19 Apr, 2011 [facility] [address] [id number] [address] [place] [address], [place] [address] Apr, [facility] [address] [id number] [address] [place] [address], [place] [address] Apr, [facility] [address] [id number] [address] [place] [address], [place] [id number] 17 Feb, 2011 [facility] [address] [id number] [address] [place] [address], [place] [address] Feb, [facility] [address] [id number] [address] [place] [address], [place] [address] Oct, [facility] [address] [id number] [address] [place] [address], [place] [address] Jul, [facility] [address] [id number] [address] [place] [address], [place] [id number] Jul, [facility] [address] [id number] [address] [place] [address], [place] [address] Jun, [facility] [address] [id number] [address] [place] [address], [place] [address] May, [facility] [address] [id number] [address] [place] [address], [place] [address] May, [facility] [address] [id number] [address] [place] [id number] May, [facility] [address] [id number] [address] [place] [id number] Apr, [facility] [address] [id number] [address] [place] [address], [place] [id number] Jan, [facility] [address] [id number] [address] [place] [id number] November, IMMUNIZATIONS No Known Immunizations SOCIAL HISTORY Never Assessed REASON FOR VISIT Hydrocodone request PLAN OF CARE VITAL SIGNS MEDICATIONS Unknown [...]
--- OUTSIDE RECORDS SUMMARY | 2020-01-31 09:56 | XMS REPORT ---
Author Author Ivet WILLSON Organization [facility] Address [address] [place] [address] Care Team Providers Care Lifeguard Name Role Phone MADELYN WILLSON Unavailable PROBLEMS Type Condition ICD9-CM Code [id number] Code Onset Dates Condition S tatus SNOMED Code Problem Schizo affective schizophrenia F25.0 Active 937198809 Problem Low back pain, unspecified b ack pain laterality, unspecified chronicity, with sciatica presence unspecified M54.5 Active 328474236 Problem Osteoarthritis M19.90 Active 01185 5006 Problem Secondary hyperparathyroidism, not elsewhere classified E21.1 Active 96004272 Problem Iron deficiency anemia, unspecified iron deficiency an emia type D50.9 Active 26404710 Problem Stage 3 chronic kidney disease N18.3 Active 101669956 Problem Bilateral carotid artery disease I77.9 Active 762486717 Problem Vitamin D deficiency E55.9 Active 76502506 Problem Fibromyalgia M79.7 Active 1785151 05 Problem GERD (gastroesophageal reflux disease) K21.9 Active 473976338 Problem Hypothyroidism E03.9 Active 24849 008 Problem Anxiety F41.9 Active 45210568 Problem Depression F32.9 Active 73589469 Problem Essential hypertension I10 Active 56428517 ALLERGIES Substance Reaction Event Type Date Status Silvadene Unknown Drug Allergy Jun, Active Penicillin V Potassium Unknown Drug Allergy Jun, Activ e Levaquin muscle/joint ache Drug Allergy Jun, Active Feldene Unknown Drug Allergy Jun, Active Cholecalciferol (vitamin D3) 50,000 Unit Capsule threw /meds labs out of whack Non Drug Allergy Jun, Active ENCOUNTERS Encounter Location Date Diagnosis [facility] [address] [facility] [id number] [address] [place] [address] Dec, [facility] [address] [facility] [id number] [address] [place] [address] November, Nausea and vomiting, intract ability of vomiting not specified, unspecified vomiting type R11.2 and Dizziness R42 [place] [address] [address] November, Fibromyalgia M79.7 [place] [address] [address] November, Medicare annual wellness vis it, initial Z00.00 ; Anxiety F41.9 ; Depression F32.9 ; Stage 3 chronic kidney disease N18.3 ; Fibromyalgia M79.7 ; Essential hypertension I10 ; Secondary hyperparathyroidism, not elsewhere classified E21.1 ; Osteoarthritis M19.90 ; Hypothyroidism E03.9 and Encounter for immunization Z23 [place] [address] [address] Oct, [place] [address] [address] Oct, Sebaceous cyst L72.3 [place] [address] [address] Sep, Low back pain, unspecified b ack pain laterality, unspecified chronicity, with sciatica presence unspecified M54.5 and Secondary hyperparathyroidism, not elsewhere classified E21.1 [place] [address] [address] Sep, Fibromyalgia M79.7 [place] [address] [address] Sep, Fibromyalgia M79.7 ; Plantar fasciitis, bilateral M72.2 ; Essential hypertension I10 ; Depression F32.9 and Epidermoid cyst L72.0 [place] [address] [address] Jul, [place] [address] [address] Jul, Fibromyalgia M79.7 ; Iron de ficiency anemia, unspecified iron deficiency anemia type D50.9 and Acute nasopharyngitis J00 [facility] [address] [address] 18 Jun, 2017 Sore throat J02.9 and Acute serous otitis media of left ear, recurrence not specified H65.02 [facility] [address] [address] Jun, Hypothyroidism E03.9 [facility] [address] [address] Jun, [place] [address] [address] Jun, Hypothyroidism E03.9 ; Essen tial hypertension I10 and Osteoarthritis M19.90 [facility] [address] [address] May, [place] [address] [address] May, [place] [address] [address] Feb, [place] [address] [address] Feb, Leonela-menopausal N95.1 and To bacco use Z72.0 [place] [address] [address] Jan, [place] [address] [address] Jan, Osteoarthritis M19.90 ; Bila teral carotid artery disease I77.9 ; Raynauds syndrome I73.00 ; Essential hypertension I10 ; Allergic rhinitis J30.9 ; Stage 3 chronic kidney disease N18.3 ; Fibromyalgia M79.7 ; Hypothyroidism E03.9 ; GERD (gastroesophageal reflux disease) K21.9 and Vitamin D deficiency E55.9 [place] [address] [address] Dec, Raynauds syndrome I73.00 ; P lantar fascial fibromatosis M72.2 ; Osteoarthritis M19.90 and Fibromyalgia M79.7 [facility] [address] [facility] [id number] [address] [place] [address] Dec, [facility] [address] [facility] [id number] [address] [place] [address] Dec, [facility] [address] [facility] [id number] [address] [place] [address] Oct, Function kidney decreased N2 8.9 [facility] [address] [facility] [id number] [place] [id number] Oct, Dental examination Z01.20 [facility] [address] [facility] [id number] [address] [place] [address] 18 Oct, 2016 Essential hypertension I10 a nd Function kidney decreased N28.9 [facility] [address] [facility] [id number] [address] [place] [id number] Oct, Dental examination Z01.20 [facility] [address] [facility] [id number] [address] [place] [address] Oct, [facility] [address] [place] [id number] [address] [place] [address] 24 Sep, 2016 Other specified disorders in volving the immune mechanism D89.89 and Schizo affective schizophrenia F25.0 [facility] [address] [place] [id number] [address] [place] [address] Sep, Schizo affective schizophren ia F25.0 [facility] [address] [facility] [id number] [address] [place] [address] 16 Sep, 2016 Eustachian tube dysfunction, bilateral H69.83 [facility] [address] [facility] [id number] [address] [place] [address] 15 Sep, 2016 [facility] [address] [place] [id number] [address] [place] [address] 14 Sep, 2016 [facility] [address] [address] 14 Sep, 2016 [facility] [address] [address] Sep, Eustachian tube dysfunction, bilateral H69.83 [facility] [address] [address] Sep, Allergic rhinitis J30.9 ; Es sential hypertension I10 ; Hypothyroidism E03.9 and Schizo affective schizophrenia F25.0 [facility] [address] [address] Jul, Eustachian tube dysfunction, bilateral H69.83 and Visit for TB skin test Z11.1 [facility] [address] [address] Jul, Subacute pansinusitis J01.40 [place] [address] [address] Jun, Schizo affective schizophren ia F25.0 ; Depression F32.9 ; Allergic rhinitis J30.9 ; Raynauds syndrome I73.00 ; Essential hypertension I10 ; Slow transit constipation K59.01 ; GERD (gastroesophageal reflux disease) K21.9 ; Hypothyroidism E03.9 ; Nicotine addiction F17.200 ; Other viral agents as the cause of diseases classified elsewhere B97.89 ; Acute upper respiratory infection, unspecified J06.9 and Osteoarthritis M19.90 [place] [address] [place] [id number] [address] [place] [address] Jun, Allergic rhinitis J30.9 and GERD (gastroesophageal reflux disease) K21.9 [place] [address] [address] May, [place] [address] [address] Mar, Schizo affective schizophren ia F25.0 [place] [address] [address] Mar, Schizo affective schizophren ia F25.0 [place] [address] [address] Mar, Schizo affective schizophren ia F25.0 [place] [address] [address] Mar, Acute non-recurrent maxillar y sinusitis J01.00 [place] [address] [address] Feb, Schizo affective schizophren ia F25.0 [place] [address] [address] Feb, Contact dermatitis and eczem a L25.9 [place] [address] [address] Jan, [place] [address] [address] Jan, Schizo affective schizophren ia F25.0 ; Slow transit constipation K59.01 ; Essential hypertension I10 ; GERD (gastroesophageal reflux disease) K21.9 ; Hypothyroidism E03.9 ; Osteoarthritis M19.90 ; Low back pain, unspecified back pain laterality, unspecified chronicity, with sciatica presence unspecified M54.5 and Bilateral carotid artery disease I77.9 [place] [address] [address] Oct, [place] [address] [address] Sep, Hypothyroid E03.9 [place] [address] [address] Sep, Schizo affective schizophren ia F25.0 ; Depression F32.9 ; Anxiety F41.9 ; Allergic rhinitis J30.9 ; Raynauds syndrome I73.00 ; Insomnia G47.00 ; Essential hypertension I10 ; GERD (gastroesophageal reflux disease) K21.9 ; Hypothyroidism E03.9 and Vitamin D deficiency E55.9 [facility] [address] [place] [id number] [address] [place] [address] Sep, [place] [address] [address] Sep, [place] [address] [address] Aug, Allergic rhinitis J30.9 ; De pression F32.9 ; Anxiety F41.9 ; Raynauds syndrome I73.00 ; Insomnia G47.00 and GERD (gastroesophageal reflux disease) K21.9 [place] [address] [address] Aug, MONICA (secretory otitis media) H65.90 and Raynauds syndrome I73.00 [facility] [address] [place] [id number] [address] [place] [address] Jul, Acute otitis externa of both ears, unspecified type H60.503 [place] [address] [place] [id number] [address] [place] [address] Jun, [place] [address] [address] Jun, Essential hypertension I10 ; Allergic rhinitis J30.9 ; Hypothyroidism E03.9 and Osteoarthritis M19.90 [place] [address] [address] Jun, Routine adult health mainten ance Z00.00 ; Hypothyroidism E03.9 ; Essential hypertension I10 ; Insomnia G47.00 ; Nicotine addiction F17.200 ; Raynauds syndrome I73.00 ; GERD (gastroesophageal reflux disease) K21.9 ; Allergic rhinitis J30.9 ; Anxiety F41.9 ; Depression F32.9 and Schizo affective schizophrenia F25.0 [place] [address] [place] [id number] [address] [place] [address] May, Upper respiratory tract infe ction, unspecified type J06.9 [facility] [address] [id number] [address] [place] [address] Mar, [facility] [address] [id number] [place] [id number] Mar, [facility] [address] [id number] [address] [place] [address] Mar, [facility] [address] [id number] [address] [place] [address] Mar, [facility] [address] [id number] [address] [place] [address] Feb, Jaw pain 784.92 and Environm ental and seasonal allergies 477.8 [facility] [address] [id number] [address] [place] [address] Feb, [facility] [address] [id number] [address] [place] [address] Oct, [facility] [address] [id number] [address] [place] [address] Oct, [facility] [address] [id number] [address] [place] [address] Oct, [facility] [address] [id number] [address] [place] [address] Oct, [facility] [address] [id number] [address] [place] [address] Sep, [facility] [address] [id number] [address] [place] [address] Sep, [facility] [address] [id number] [address] [place] [address] Jul, [facility] [address] [id number] [address] [place] [address] Jul, [facility] [address] [id number] [address] [place] [address] Jul, [facility] [address] [id number] [address] [place] [address], [place] [address] Jul, [facility] [address] [id number] [address] [place] [address], [place] [address] Jul, [facility] [address] [id number] [address] [place] [address], [place] [address] Jul, [facility] [address] [id number] [address] [place] [address], [place] [address] Jul, [facility] [address] [id number] [address] [place] [address], [place] [address] Jun, [facility] [address] [id number] [address] [place] [address], [place] [address] Jun, [facility] [address] [id number] [address] [place] [address], [place] [address] Jun, [facility] [address] [id number] [address] [place] [address], [place] [address] 18 Jun, 2014 [facility] [address] [id number] [address] [place] [address], [place] [address] 17 Jun, 2014 [facility] [address] [id number] [address] [place] [address], [place] [address] Jun, [facility] [address] [id number] [address] [place] [address], [place] [address] 16 Jun, 2014 [facility] [address] [id number] [address] [place] [address], [place] [address] 16 Jun, 2014 [facility] [address] [id number] [address] [place] [address], [place] [address] 30 Apr, 2014 [facility] [address] [id number] [address] [place] [address], [place] [address] 30 Apr, 2014 [facility] [address] [id number] [address] [place] [address], [place] [address] 17 Mar, 2014 [facility] [address] [id number] [address] [place] [address], [place] [address] 17 Mar, 2014 [facility] [address] [id number] [address] [place] [address], [place] [address] Mar, [facility] [address] [id number] [address] [place] [address], [place] [address] Mar, [facility] [address] [id number] [address] [place] [address], [place] [address] Jan, [facility] [address] [id number] [address] [place] [address], [place] [address] Jan, [facility] [address] [id number] [address] [place] [address], [place] [address] Oct, [facility] [address] [id number] [address] [place] [address], [place] [address] Oct, [facility] [address] [id number] [address] [place] [address], [place] [address] Sep, [facility] [address] [id number] [address] [place] [address], [place] [address] Sep, [facility] [address] [id number] [address] [place] [address], [place] [address] Sep, [facility] [address] [id number] [address] [place] [address], [place] [address] Sep, [facility] [address] [id number] [address] [place] [address], [place] [address] Sep, [facility] [address] [id number] [address] [place] [address], [place] [address] Sep, [facility] [address] [id number] [address] [place] [address], [place] [address] Aug, [facility] [address] [id number] [address] [place] [address], [place] [address] Aug, [facility] [address] [id number] [address] [place] [address], [place] [address] Jul, [facility] [address] [id number] [address] [place] [address], [place] [address] Jul, [facility] [address] [id number] [address] [place] [address], [place] [address] Jul, [facility] [address] [id number] [address] [place] [address], [place] [address] Jul, [facility] [address] [id number] [address] [place] [address], [place] [address] Jun, [facility] [address] [id number] [address] [place] [address], [place] [address] Jun, [facility] [address] [id number] [address] [place] [address], [place] [address] May, [facility] [address] [id number] [address] [place] [address], [place] [address] May, [facility] [address] [id number] [address] [place] [address], [place] [address] Apr, [facility] [address] [id number] [address] [place] [address], [place] [address] Apr, [facility] [address] [id number] [address] [place] [address], [place] [address] Apr, [facility] [address] [id number] [address] [place] [address], [place] [address] Apr, [facility] [address] [id number] [address] [place] [address], [place] [address] Apr, [facility] [address] [id number] [address] [place] [address], [place] [address] Apr, [facility] [address] [id number] [address] [place] [address], [place] [address] Mar, [facility] [address] [id number] [address] [place] [address], [place] [address] Mar, [facility] [address] [id number] [address] [place] [address], [place] [address] Mar, 2013 [facility] [address] [id number] [address] [place] [address], [place] [address] 05 Mar, 2013 [facility] [address] [id number] [address] [place] [address], [place] [address] 05 Mar, 2013 [facility] [address] [id number] [address] [place] [address], [place] [address] Feb, [facility] [address] [id number] [address] [place] [address], [place] [address] Feb, [facility] [address] [id number] [address] [place] [address], [place] [address] Feb, [facility] [address] [id number] [address] [place] [address], [place] [address] Feb, [facility] [address] [id number] [address] [place] [address], [place] [address] Jan, [facility] [address] [id number] [address] [place] [address], [place] [address] Jan, [facility] [address] [id number] [address] [place] [address], [place] [address] 16 Jan, 2013 [facility] [address] [id number] [address] [place] [address], [place] [address] Jan, [facility] [address] [id number] [address] [place] [address], [place] [address] Jan, [facility] [address] [id number] [address] [place] [address], [place] [address] Jan, [facility] [address] [id number] [address] [place] [address], [place] [address] Dec, [facility] [address] [id number] [address] [place] [address], [place] [address] Dec, [facility] [address] [id number] [address] [place] [address], [place] [address] Dec, [facility] [address] [id number] [address] [place] [address], [place] [address] 14 Dec, 2012 [facility] [address] [id number] [address] [place] [address], [place] [address] 13 Dec, 2012 [facility] [address] [id number] [address] [place] [address], [place] [address] 12 Dec, 2012 [facility] [address] [id number] [address] [place] [address], [place] [address] Dec, [facility] [address] [id number] [address] [place] [address], [place] [address] 07 Dec, 2012 [facility] [address] [id number] [address] [place] [address], [place] [address] 05 Dec, 2012 [facility] [address] [id number] [address] [place] [address], [place] [address] Dec, [facility] [address] [id number] [address] [place] [address], [place] [address] November, [facility] [address] [id number] [address] [place] [address], [place] [address] November, [facility] [address] [id number] [address] [place] [address], [place] [address] November, [facility] [address] [id number] [address] [place] [address], [place] [address] November, [facility] [address] [id number] [address] [place] [address], [place] [address] November, [facility] [address] [id number] [address] [place] [address], [place] [address] Oct, [facility] [address] [id number] [address] [place] [address], [place] [address] Oct, [facility] [address] [id number] [address] [place] [address], [place] [address] Oct, [facility] [address] [id number] [address] [place] [address], [place] [address] Oct, [facility] [address] [id number] [address] [place] [address], [place] [id number] Oct, [facility] [address] [id number] [address] [place] [address], [place] [address] Sep, [facility] [address] [id number] [address] [place] [address], [place] [id number] Sep, [facility] [address] [id number] [address] [place] [address], [place] [id number] 18 Sep, 2012 [facility] [address] [id number] [address] [place] [address], [place] [id number] 05 Sep, 2012 [facility] [address] [id number] [address] [place] [address], [place] [id number] 26 Aug, 2012 [facility] [address] [id number] [address] [place] [address], [place] [address] Aug, [facility] [address] [id number] [address] [place] [address], [place] [id number] 18 Aug, 2012 [facility] [address] [id number] [address] [place] [address], [place] [id number] 15 Aug, 2012 [facility] [address] [id number] [address] [place] [address], [place] [address] Jun, [facility] [address] [id number] [address] [place] [address], [place] [address] Jun, [facility] [address] [id number] [address] [place] [address], [place] [address] Jun, [facility] [address] [id number] [address] [place] [address], [place] [id number] Jun, [facility] [address] [id number] [address] [place] [address], [place] [address] Jun, [facility] [address] [id number] [address] [place] [address], [place] [address] Jun, [facility] [facility] [address] [id number] [address] [place] [address], [place] [address] Jun, [facility] [address] [id number] [address] [place] [address], [place] [address] Jun, [facility] [address] [id number] [address] [place] [address], [place] [address] Jun, [facility] [address] [id number] [address] [place] [address], [place] [address] Jun, [facility] [address] [id number] [address] [place] [address], [place] [address] 28 May, 2012 [facility] [address] [id number] [address] [place] [address], [place] [address] May, [facility] [address] [id number] [address] [place] [address], [place] [address] May, [facility] [address] [id number] [address] [place] [address], [place] [address] May, [facility] [address] [id number] [address] [place] [address], [place] [address] 26 May, 2012 [facility] [address] [id number] [address] [place] [address], [place] [address] 16 May, 2012 [facility] [address] [id number] [address] [place] [address], [place] [address] 16 May, 2012 [facility] [address] [id number] [address] [place] [address], [place] [address] 14 May, 2012 [facility] [address] [id number] [address] [place] [address], [place] [address] 14 May, 2012 [facility] [address] [id number] [address] [place] [address], [place] [address] 30 Apr, 2012 [facility] [address] [id number] [address] [place] [address], [place] [address] 30 Apr, 2012 [facility] [address] [id number] [address] [place] [address], [place] [address] 17 Apr, 2012 [facility] [address] [id number] [address] [place] [address], [place] [address] 17 Apr, 2012 [facility] [address] [id number] [address] [place] [address], [place] [address] 09 Apr, 2012 [facility] [address] [id number] [address] [place] [address], [place] [address] 18 Mar, 2012 [facility] [address] [id number] [address] [place] [address], [place] [address] 17 Mar, 2012 [facility] [address] [id number] [address] [place] [address], [place] [address] 07 Mar, 2012 [facility] [address] [id number] [address] [place] [address], [place] [address] 27 Feb, 2012 [facility] [address] [id number] [address] [place] [address], [place] [address] 16 Feb, 2012 [facility] [address] [id number] [address] [place] [address], [place] [address] 15 Feb, 2012 [facility] [address] [id number] [address] [place] [address], [place] [address] 14 Feb, 2012 [facility] [address] [id number] [address] [place] [address], [place] [address] Jan, [facility] [address] [id number] [address] [place] [address], [place] [address] Jan, [facility] [address] [id number] [address] [place] [address], [place] [address] Jan, [facility] [address] [id number] [address] [place] [address], [place] [address] Jan, [facility] [address] [id number] [address] [place] [address], [place] [address] 17 Jan, 2012 [facility] [address] [id number] [address] [place] [address], [place] [address] Jan, [facility] [address] [id number] [address] [place] [address], [place] [address] Dec, [facility] [address] [id number] [address] [place] [address], [place] [address] Dec, [facility] [address] [id number] [address] [place] [address], [place] [address] Dec, [facility] [address] [id number] [address] [place] [address], [place] [address] November, [facility] [address] [id number] [address] [place] [address], [place] [address] November, [facility] [address] [id number] [address] [place] [address], [place] [address] November, [facility] [address] [id number] [address] [place] [address], [place] [address] November, [facility] [address] [id number] [address] [place] [address], [place] [address] Oct, [facility] [address] [id number] [address] [place] [address], [place] [address] Oct, [facility] [address] [id number] [address] [place] [address], [place] [address] Oct, [facility] [address] [id number] [address] [place] [address], [place] [address] Sep, [facility] [address] [id number] [address] [place] [address], [place] [address] Sep, [facility] [address] [id number] [address] [place] [address], [place] [address] Aug, [facility] [address] [id number] [address] [place] [address], [place] [address] Aug, [facility] [address] [id number] [address] [place] [address], [place] [address] Aug, [facility] [address] [id number] [address] [place] [address], [place] [address] Aug, [facility] [address] [id number] [address] [place] [address], [place] [address] Jul, [facility] [address] [id number] [address] [place] [address], [place] [address] Jul, [facility] [address] [id number] [address] [place] [address], [place] [address] Jul, [facility] [address] [id number] [address] [place] [address], [place] [address] Jul, [facility] [address] [id number] [address] [place] [address], [place] [address] Jul, [facility] [address] [id number] [address] [place] [address], [place] [address] Jul, [facility] [address] [id number] [address] [place] [address], [place] [address] Jul, [facility] [address] [id number] [address] [place] [address], [place] [address] Jul, [facility] [address] [id number] [address] [place] [address], [place] [address] Jun, [facility] [address] [id number] [address] [place] [address], [place] [address] Jun, [facility] [address] [id number] [address] [place] [address], [place] [address] Jun, [facility] [address] [id number] [address] [place] [address], [place] [address] 08 Jun, 2011 [facility] [address] [id number] [address] [place] [address], [place] [address] Jun, [facility] [address] [id number] [address] [place] [address], [place] [address] May, [facility] [address] [id number] [address] [place] [address], [place] [address] May, [facility] [address] [id number] [address] [place] [address], [place] [address] 17 May, 2011 [facility] [address] [id number] [address] [place] [address], [place] [address] 15 May, 2011 [facility] [address] [id number] [address] [place] [address], [place] [address] May, [facility] [address] [id number] [address] [place] [address], [place] [address] May, [facility] [address] [id number] [address] [place] [address], [place] [address] Apr, [facility] [address] [id number] [address] [place] [address], [place] [address] Apr, [facility] [address] [id number] [address] [place] [address], [place] [address] Apr, [facility] [address] [id number] [address] [place] [address], [place] [address] Feb, [facility] [address] [id number] [address] [place] [address], [place] [address] Feb, [facility] [address] [id number] [address] [place] [address], [place] [address] Oct, [facility] [address] [id number] [address] [place] [address], [place] [address] Jul, [facility] [address] [id number] [address] [place] [address], [place] [address] Jul, [facility] [address] [id number] [address] [place] [address], [place] [address] Jun, [facility] [address] [id number] [address] [place] [address], [place] [address] May, [facility] [address] [id number] [address] [place] [address], [place] [address] May, [facility] [address] [id number] [address] [place] [address], [place] [address] May, [facility] [address] [id number] [address] [place] [address] Apr, [facility] [address] [facility] [id number] [address] [place] [address] Jan, [facility] [address] [facility] [id number] [address] [place] [id number] November, IMMUNIZATIONS No Known Immunizations SOCIAL HISTORY Never Assessed REASON FOR VISIT Transition of Care, Needing medications refilled and lab, did not take meds this am but did eat breakfast, CBrumbackRN PLAN OF CARE Activity Details Follow Up 6 Months Reason: VITAL SIGNS Height 72 in 2017-06-20 Weight 222.5 lbs 2017-06-20 Temperature 97.9 degrees Fahrenheit 2017-06-20 Heart Rate 80 bpm 2017-06-20 Respiratory Rate 18 2017-06-20 Oximetry on room air:98 % 2017-06-20 BMI 30.17 kg/m2 2017-06-20 Blood pressure systolic 142 mmHg 2017-06-20 Blood pressure diastolic 76 mmHg 2017-06-20 MEDICATIONS Medication Instructions Dosage Frequency Start Date End Date Duration S tatus Vitamin D 1000 UNIT Orally twice a day 1 tablet 12h Active Melatonin 5 mg 0.5 Tablet by Oral route 1 time per day at night November, Active BuPROPion HCl 300 mg Orally Once a day 1 tablet 24h Mar, Active Levothyroxine Sodium 100 MCG Orally Once a day 1 tablet on an empty stomach in the morning 24h Active Montelukast Sodium 10 MG Orally at bedtime 1 tablet Active Ranitidine HCl 150 TAKE ONE TABLET BY M OUTH TWICE A DAY NEEDED FOR HEARTBURN FOR 14 DAYS 15 Active Lisinopril 5 mg Orally Once a day 1 tablet 24h Jun, Active Lamotrigine 150 MG Orally at bedtime [...] needed PRN shortness of breath/cough Jun, Active Baclofen 10 TAKE ONE TABLET BY MOUTH THREE TIMES A DAY WIT H FOOD OR MILK 90 Active RESULTS No Results PROCEDURES Procedure Date Ordered Result Body Site MEASURE BLOOD OXYGEN LEVEL Jun 20, 2017 [facility] Jun 20, 2017 [facility] ESTABLISHED PATIENT Jun 20, 2017 JOE, ROUTINE* Jun 20, 2017 INSTRUCTIONS MEDICATIONS ADMINISTERED No Known Medications [...]
--- OUTSIDE RECORDS SUMMARY | 2020-01-31 09:56 | XMS REPORT ---
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 Method Name Role Phone YAS ARANGO Unavailable PROBLEMS Type Condition ICD9-CM Code SCJ65-YH Code Onset Dates Condition S tatus SNOMED Code Problem Schizo affective schizophrenia F25.0 Active 724303173 Problem Low back pain, unspecified b ack pain laterality, unspecified chronicity, with sciatica presence unspecified M54.5 Active 187384668 Problem Osteoarthritis M19.90 Active 37325 5006 Problem Secondary hyperparathyroidism, not elsewhere classified E21.1 Active 72708460 Problem Iron deficiency anemia, unspecified iron deficiency an emia type D50.9 Active 55033008 Problem Stage 3 chronic kidney disease N18.3 Active 508419085 Problem Bilateral carotid artery disease I77.9 Active 157230507 Problem Vitamin D deficiency E55.9 Active 40828070 Problem Fibromyalgia M79.7 Active 1017301 05 Problem GERD (gastroesophageal reflux disease) K21.9 Active 724002967 Problem Hypothyroidism E03.9 Active 60938 008 Problem Anxiety F41.9 Active 22261635 Problem Depression F32.9 Active 10340012 Problem Essential hypertension I10 Active 74559369 ALLERGIES Substance Reaction Event Type Date Status Silvadene Unknown Drug Allergy Feb, Active Penicillin V Potassium Unknown Drug Allergy Feb, Activ e Levaquin muscle/joint ache Drug Allergy Feb, Active Feldene Unknown Drug Allergy Feb, Active Cholecalciferol (vitamin D3) 50,000 Unit Capsule threw /meds labs out of whack Non Drug Allergy Feb, Active ENCOUNTERS Encounter Location Date Diagnosis [facility] [address] [facility] [id number] [address] [place] [address] November, Medicare annual wellness vis it, initial Z00.00 [facility] [address] [facility] [id number] [address] [place] [address] Oct, [facility] [address] [place] [id number] [address] [place] [address] Oct, Sebaceous cyst L72.3 [facility] [address] [place] [id number] [address] [place] [address] 27 Sep, 2017 Low back pain, unspecified b ack pain laterality, unspecified chronicity, with sciatica presence unspecified M54.5 and Secondary hyperparathyroidism, not elsewhere classified E21.1 [place] [address] [address] Sep, Fibromyalgia M79.7 [place] [address] [address] Sep, Fibromyalgia M79.7 ; Plantar fasciitis, bilateral M72.2 ; Essential hypertension I10 ; Depression F32.9 and Epidermoid cyst L72.0 [place] [address] [address] Jul, [place] [address] [address] Jul, Fibromyalgia M79.7 ; Iron de ficiency anemia, unspecified iron deficiency anemia type D50.9 and Acute nasopharyngitis J00 [facility] [address] [address] Jun, Sore throat J02.9 and Acute serous otitis media of left ear, recurrence not specified H65.02 [facility] [address] [place] [id number] [address] [place] [address] Jun, Hypothyroidism E03.9 [place] [address] [address] Jun, [place] [address] [address] 08 Jun, 2017 Hypothyroidism E03.9 ; Essen tial hypertension I10 and Osteoarthritis M19.90 [place] [address] [place] [address] May, [facility] [address] [address] May, [facility] [address] [place] [address] Feb, [facility] [address] [address] Feb, Leonela-menopausal N95.1 and To bacco use Z72.0 [place] [address] [address] Jan, [place] [address] [place] [id number] [address] [place] [address] Jan, Osteoarthritis M19.90 ; Bila teral carotid artery disease I77.9 ; Raynauds syndrome I73.00 ; Essential hypertension I10 ; Allergic rhinitis J30.9 ; Stage 3 chronic kidney disease N18.3 ; Fibromyalgia M79.7 ; Hypothyroidism E03.9 ; GERD (gastroesophageal reflux disease) K21.9 and Vitamin D deficiency E55.9 [facility] [address] [place] [id number] [address] [place] [address] Dec, Raynauds syndrome I73.00 ; P lantar fascial fibromatosis M72.2 ; Osteoarthritis M19.90 and Fibromyalgia M79.7 [place] [address] [place] [id number] [address] [place] [address] Dec, [facility] [address] [place] [id number] [address] [place] [address] Dec, [facility] [address] [address] Oct, Function kidney decreased N2 8.9 [facility] [address] [place] [id number] [address] [place] [id number] Oct, Dental examination Z01.20 [place] [address] [place] [address] 18 Oct, 2016 Essential hypertension I10 a nd Function kidney decreased N28.9 [facility] [address] [id number] [address] [place] [id number] 04 Oct, 2016 Dental examination Z01.20 [facility] [address] [id number] [address] [place] [address] Oct, [facility] [address] [id number] [address] [place] [address] 24 Sep, 2016 Other specified disorders in volving the immune mechanism D89.89 and Schizo affective schizophrenia F25.0 [facility] [address] [facility] [facility] [id number] [address] [place] [address] 21 Sep, 2016 Schizo affective schizophren ia F25.0 [facility] [address] [id number] [address] [place] [address] 16 Sep, 2016 Eustachian tube dysfunction, bilateral H69.83 [facility] [address] [facility] [id number] [address] [place] [address] 15 Sep, 2016 [facility] [address] [facility] [id number] [address] [place] [address] 14 Sep, 2016 [facility] [address] [id number] [address] [place] [address] 14 Sep, 2016 [facility] [address] [id number] [address] [place] [address] 13 Sep, 2016 Eustachian tube dysfunction, bilateral H69.83 [facility] [address] [facility] [id number] [address] [place] [address] 09 Sep, 2016 Allergic rhinitis J30.9 ; Es sential hypertension I10 ; Hypothyroidism E03.9 and Schizo affective schizophrenia F25.0 [facility] [address] [facility] [id number] [address] [place] [address] Jul, Eustachian tube dysfunction, bilateral H69.83 and Visit for TB skin test Z11.1 [facility] [address] [address] 04 Jul, 2016 Subacute pansinusitis J01.40 [place] [address] [address] Jun, Schizo affective schizophren ia F25.0 ; [...] and Osteoarthritis M19.90 [facility] [address] [address] Jun, Allergic rhinitis J30.9 and GERD (gastroesophageal reflux disease) K21.9 [place] [address] [address] May, [place] [address] [address] Mar, Schizo affective schizophren ia F25.0 [place] [address] [address] Mar, Schizo affective schizophren ia F25.0 [place] [address] [address] 15 Mar, 2016 Schizo affective schizophren ia F25.0 [place] [address] [address] 06 Mar, 2016 Acute non-recurrent maxillar y sinusitis J01.00 [place] [address] [address] Feb, Schizo affective schizophren ia F25.0 [place] [address] [address] Feb, Contact dermatitis and eczem a L25.9 [place] [address] [address] Jan, [place] [address] [address] Jan, Schizo affective schizophren ia F25.0 ; Slow transit constipation K59.01 ; Essential hypertension I10 ; GERD (gastroesophageal reflux disease) K21.9 ; Hypothyroidism E03.9 ; Osteoarthritis M19.90 ; Low back pain, unspecified back pain laterality, unspecified chronicity, with sciatica presence unspecified M54.5 and Bilateral carotid artery disease I77.9 [place] [address] [address] Oct, [place] [address] [address] Sep, Hypothyroid E03.9 [place] [address] [address] Sep, Schizo affective schizophren ia F25.0 ; Depression F32.9 ; Anxiety F41.9 ; Allergic rhinitis J30.9 ; Raynauds syndrome I73.00 ; Insomnia G47.00 ; Essential hypertension I10 ; GERD (gastroesophageal reflux disease) K21.9 ; Hypothyroidism E03.9 and Vitamin D deficiency E55.9 [place] [address] [address] Sep, [place] [address] [address] Sep, [place] [address] [address] Aug, Allergic rhinitis J30.9 ; De pression F32.9 ; Anxiety F41.9 ; Raynauds syndrome I73.00 ; Insomnia G47.00 and GERD (gastroesophageal reflux disease) K21.9 [place] [address] [address] Aug, MONICA (secretory otitis media) H65.90 and Raynauds syndrome I73.00 [facility] [address] [address] Jul, Acute otitis externa of both ears, unspecified type H60.503 [facility] [address] [address] Jun, [facility] [address] [address] Jun, Essential hypertension I10 ; Allergic rhinitis J30.9 ; Hypothyroidism E03.9 and Osteoarthritis M19.90 [place] [address] [address] Jun, Routine adult health mainten ance Z00.00 ; Hypothyroidism E03.9 ; Essential hypertension I10 ; Insomnia G47.00 ; Nicotine addiction F17.200 ; Raynauds syndrome I73.00 ; GERD (gastroesophageal reflux disease) K21.9 ; Allergic rhinitis J30.9 ; Anxiety F41.9 ; Depression F32.9 and Schizo affective schizophrenia F25.0 [place] [address] [address] May, Upper respiratory tract infe ction, unspecified type J06.9 [place] [address] [address] Mar, [facility] [address] [place] [id number] [place] [id number] Mar, [place] [address] [place] [id number] [address] [place] [address] Mar, [place] [address] [address] Mar, [place] [address] [address] Feb, Jaw pain 784.92 and Environm ental and seasonal allergies 477.8 [facility] [address] [id number] [address] [place] [address], [place] [address] Feb, [facility] [address] [id number] [address] [place] [address], [place] [address] 29 Oct, 2014 [facility] [address] [id number] [address] [place] [address], [place] [address] Oct, [facility] [address] [id number] [address] [place] [address], [place] [address] Oct, [facility] [address] [id number] [address] [place] [address], [place] [address] Oct, [facility] [address] [id number] [address] [place] [address], [place] [address] Sep, [facility] [address] [id number] [address] [place] [address], [place] [address] Sep, [facility] [address] [id number] [address] [place] [address], [place] [address] Jul, [facility] [address] [id number] [address] [place] [address], [place] [address] Jul, [facility] [address] [id number] [address] [place] [address], [place] [address] Jul, [facility] [address] [id number] [address] [place] [address], [place] [address] Jul, [facility] [address] [id number] [address] [place] [address], [place] [address] Jul, [facility] [address] [id number] [address] [place] [address], [place] [address] Jul, [facility] [address] [id number] [address] [place] [address], [place] [address] Jul, [facility] [address] [id number] [address] [place] [address], [place] [address] Jun, [facility] [address] [id number] [address] [place] [address], [place] [address] 31 Jun, 2014 [facility] [address] [id number] [address] [place] [address], [place] [address] 22 Jun, 2014 [facility] [address] [id number] [address] [place] [address], [place] [address] 18 Jun, 2014 [facility] [address] [id number] [address] [place] [address], [place] [address] 17 Jun, 2014 [facility] [address] [id number] [address] [place] [address], [place] [address] 17 Jun, 2014 [facility] [address] [id number] [address] [place] [address], [place] [address] 16 Jun, 2014 [facility] [address] [id number] [address] [place] [address], [place] [address] Jun, [facility] [address] [id number] [address] [place] [address], [place] [address] 30 Apr, 2014 [facility] [address] [id number] [address] [place] [address], [place] [address] 30 Apr, 2014 [facility] [address] [id number] [address] [place] [address], [place] [address] 17 Mar, 2014 [facility] [address] [id number] [address] [place] [address], [place] [address] 17 Mar, 2014 [facility] [address] [id number] [address] [place] [address], [place] [address] Mar, [facility] [address] [id number] [address] [place] [address], [place] [address] Mar, [facility] [address] [id number] [address] [place] [address], [place] [address] Jan, [facility] [address] [id number] [address] [place] [address], [place] [address] 16 Jan, 2014 [facility] [address] [id number] [address] [place] [address], [place] [address] 08 Oct, 2013 [facility] [address] [id number] [address] [place] [address], [place] [address] 08 Oct, 2013 [facility] [address] [id number] [address] [place] [address], [place] [address] Sep, [facility] [address] [id number] [address] [place] [address], [place] [address] Sep, [facility] [address] [id number] [address] [place] [address], [place] [address] Sep, [facility] [address] [id number] [address] [place] [address], [place] [address] Sep, [facility] [address] [id number] [address] [place] [address], [place] [address] Sep, [facility] [address] [id number] [address] [place] [address], [place] [address] Sep, [facility] [address] [id number] [address] [place] [address], [place] [address] Aug, [facility] [address] [id number] [address] [place] [address], [place] [address] Aug, [facility] [address] [id number] [address] [place] [address], [place] [address] Jul, [facility] [address] [id number] [address] [place] [address], [place] [address] Jul, [facility] [address] [id number] [address] [place] [address], [place] [address] Jul, [facility] [address] [id number] [address] [place] [address], [place] [address] Jul, [facility] [address] [id number] [address] [place] [address], [place] [address] Jun, [facility] [address] [id number] [address] [place] [address], [place] [address] Jun, [facility] [address] [id number] [address] [place] [address], [place] [address] May, [facility] [address] [id number] [address] [place] [address], [place] [address] May, [facility] [address] [id number] [address] [place] [address], [place] [address] Apr, [facility] [address] [id number] [address] [place] [address], [place] [address] Apr, [facility] [address] [id number] [address] [place] [address], [place] [address] Apr, [facility] [address] [id number] [address] [place] [address], [place] [address] Apr, [facility] [address] [id number] [address] [place] [address], [place] [address] Apr, [facility] [address] [id number] [address] [place] [address], [place] [address] Apr, [facility] [address] [id number] [address] [place] [address], [place] [address] Mar, [facility] [address] [id number] [address] [place] [address], [place] [address] Mar, [facility] [address] [id number] [address] [place] [address], [place] [address] Mar, [facility] [address] [id number] [address] [place] [address], [place] [address] Mar, [facility] [address] [id number] [address] [place] [address], [place] [address] Mar, 2012 [facility] [address] [id number] [address] [place] [address], [place] [address] Feb, [facility] [address] [id number] [address] [place] [address], [place] [address] Feb, [facility] [address] [id number] [address] [place] [address], [place] [address] Feb, [facility] [address] [id number] [address] [place] [address], [place] [address] 08 Feb, 2013 [facility] [address] [id number] [address] [place] [address], [place] [address] 18 Jan, 2013 [facility] [address] [id number] [address] [place] [address], [place] [address] 17 Jan, 2013 [facility] [address] [id number] [address] [place] [address], [place] [address] 16 Jan, 2013 [facility] [address] [id number] [address] [place] [address], [place] [address] Jan, [facility] [address] [id number] [address] [place] [address], [place] [address] 03 Jan, 2013 [facility] [address] [id number] [address] [place] [address], [place] [address] Jan, [facility] [address] [id number] [address] [place] [address], [place] [address] 27 Dec, 2012 [facility] [address] [id number] [address] [place] [address], [place] [address] 25 Dec, 2012 [facility] [address] [id number] [address] [place] [address], [place] [address] Dec, [facility] [address] [id number] [address] [place] [address], [place] [address] 14 Dec, 2012 [facility] [address] [id number] [address] [place] [address], [place] [address] 13 Dec, 2012 [facility] [address] [id number] [address] [place] [address], [place] [address] 12 Dec, 2012 [facility] [address] [id number] [address] [place] [address], [place] [address] 11 Dec, 2012 [facility] [address] [id number] [address] [place] [address], [place] [address] 07 Dec, 2012 [facility] [address] [id number] [address] [place] [address], [place] [address] 05 Dec, 2012 [facility] [address] [id number] [address] [place] [address], [place] [address] Dec, [facility] [address] [id number] [address] [place] [address], [place] [address] November, [facility] [address] [id number] [address] [place] [address], [place] [address] November, [facility] [address] [id number] [address] [place] [address], [place] [address] November, [facility] [address] [id number] [address] [place] [address], [place] [address] November, [facility] [address] [id number] [address] [place] [address], [place] [address] November, [facility] [address] [id number] [address] [place] [address], [place] [address] Oct, [facility] [address] [id number] [address] [place] [address], [place] [address] Oct, [facility] [address] [id number] [address] [place] [address], [place] [address] Oct, [facility] [address] [id number] [address] [place] [address], [place] [address] Oct, [facility] [address] [id number] [address] [place] [address], [place] [address] Oct, [facility] [address] [id number] [address] [place] [address], [place] [address] Sep, [facility] [address] [id number] [address] [place] [address], [place] [address] Sep, [facility] [address] [id number] [address] [place] [address], [place] [address] Sep, [facility] [address] [id number] [address] [place] [address], [place] [address] Sep, [facility] [address] [id number] [address] [place] [address], [place] [address] Aug, [facility] [address] [id number] [facility] [place] [address] Aug, [facility] [address] [id number] [address] [place] [address], [place] [address] 18 Aug, 2012 [facility] [address] [id number] [address] [place] [address], [place] [address] 15 Aug, 2012 [facility] [address] [id number] [address] [place] [address], [place] [address] Jun, [facility] [address] [id number] [address] [place] [address], [place] [address] Jun, [facility] [address] [id number] [address] [place] [address], [place] [address] Jun, [facility] [address] [id number] [address] [place] [address], [place] [address] Jun, [facility] [address] [id number] [address] [place] [address], [place] [address] Jun, [facility] [address] [id number] [address] [place] [address], [place] [address] Jun, [facility] [address] [id number] [address] [place] [address], [place] [address] Jun, [facility] [address] [id number] [address] [place] [address], [place] [address] Jun, [facility] [address] [id number] [address] [place] [address], [place] [address] Jun, [facility] [address] [id number] [address] [place] [address], [place] [address] Jun, [facility] [address] [id number] [address] [place] [address], [place] [address] May, [facility] [address] [id number] [address] [place] [address], [place] [address] May, [facility] [address] [id number] [address] [place] [address], [place] [address] 27 May, 2012 [facility] [address] [id number] [address] [place] [address], [place] [address] May, [facility] [address] [id number] [address] [place] [address], [place] [address] 26 May, 2012 [facility] [address] [id number] [address] [place] [address], [place] [address] 16 May, 2012 [facility] [address] [id number] [address] [place] [place] [address] [address] 16 May, 2012 [facility] [address] [id number] [address] [place] [address], [place] [address] May, [facility] [address] [id number] [address] [place] [address], [place] [address] May, [facility] [address] [id number] [address] [place] [address], [place] [address] 30 Apr, 2012 [facility] [address] [id number] [address] [place] [address], [place] [address] 30 Apr, 2012 [facility] [address] [id number] [address] [place] [address], [place] [address] Apr, [facility] [address] [id number] [address] [place] [address], [place] [address] Apr, [facility] [address] [id number] [address] [place] [address], [place] [address] 09 Apr, 2012 [facility] [address] [id number] [address] [place] [address], [place] [address] 18 Mar, 2012 [facility] [address] [id number] [address] [place] [address], [place] [address] 17 Mar, 2012 [facility] [address] [id number] [address] [place] [address], [place] [address] 07 Mar, 2012 [facility] [address] [id number] [address] [place] [address], [place] [address] Feb, [facility] [address] [id number] [address] [place] [address], [place] [address] Feb, [facility] [address] [id number] [address] [place] [address], [place] [address] Feb, [facility] [address] [id number] [address] [place] [address], [place] [address] Feb, [facility] [address] [id number] [address] [place] [address], [place] [address] Jan, [facility] [address] [id number] [address] [place] [address], [place] [address] Jan, [facility] [address] [id number] [address] [place] [address], [place] [address] Jan, [facility] [address] [id number] [address] [place] [address], [place] [address] Jan, [facility] [address] [id number] [address] [place] [address], [place] [address] Jan, [facility] [address] [id number] [address] [place] [address], [place] [address] Jan, [facility] [address] [id number] [address] [place] [address], [place] [address] Dec, [facility] [address] [id number] [address] [place] [address], [place] [address] Dec, [facility] [address] [id number] [address] [place] [address], [place] [address] Dec, [facility] [address] [id number] [address] [place] [address], [place] [address] November, [facility] [address] [id number] [address] [place] [address], [place] [address] November, [facility] [address] [id number] [address] [place] [address], [place] [address] November, [facility] [address] [id number] [address] [place] [address], [place] [address] November, [facility] [address] [id number] [address] [place] [address], [place] [address] Oct, [facility] [address] [id number] [address] [place] [address], [place] [address] Oct, [facility] [address] [id number] [address] [place] [address], [place] [address] Oct, [facility] [address] [id number] [address] [place] [address], [place] [address] Sep, [facility] [address] [id number] [address] [place] [address], [place] [address] Sep, [facility] [address] [id number] [address] [place] [address], [place] [address] Aug, [facility] [address] [id number] [address] [place] [address], [place] [address] Aug, [facility] [address] [id number] [address] [place] [address], [place] [address] Aug, [facility] [address] [id number] [address] [place] [address], [place] [address] Aug, [facility] [address] [id number] [address] [place] [address], [place] [address] Jul, [facility] [address] [id number] [address] [place] [address], [place] [address] Jul, [facility] [address] [id number] [address] [place] [address], [place] [address] Jul, [facility] [address] [id number] [address] [place] [address], [place] [address] Jul, [facility] [address] [id number] [address] [place] [address], [place] [address] Jul, [facility] [address] [id number] [address] [place] [address], [place] [address] Jul, [facility] [address] [id number] [address] [place] [address], [place] [address] Jul, [facility] [address] [id number] [address] [place] [address], [place] [address] Jul, [facility] [address] [id number] [address] [place] [address], [place] [address] 30 Jun, 2011 [facility] [address] [id number] [address] [place] [address], [place] [address] Jun, [facility] [address] [id number] [address] [place] [address], [place] [address] 15 Jun, 2011 [facility] [address] [id number] [address] [place] [address], [place] [address] Jun, [facility] [address] [id number] [address] [place] [address], [place] [address] Jun, [facility] [address] [id number] [address] [place] [address], [place] [address] May, [facility] [address] [id number] [address] [place] [address], [place] [address] May, [facility] [address] [id number] [address] [place] [address], [place] [address] 17 May, 2011 [facility] [address] [id number] [address] [place] [address], [place] [address] 15 May, 2011 [facility] [address] [id number] [address] [place] [address], [place] [address] May, [facility] [address] [id number] [address] [place] [address], [place] [address] May, [facility] [address] [id number] [address] [place] [address], [place] [address] 19 Apr, 2011 [facility] [address] [id number] [address] [place] [address], [place] [address] 13 Apr, 2011 [facility] [address] [id number] [address] [place] [address], [place] [address] Apr, [facility] [address] [id number] [address] [place] [address] Feb, [facility] [address] [id number] [address] [place] [address] Feb, [facility] [address] [id number] [address] [place] [address] Oct, [facility] [address] [id number] [address] [place] [address] Jul, [facility] [address] [id number] [address] [place] [address] Jul, [facility] [address] [id number] [address] [place] [address] Jun, [facility] [address] [id number] [address] [place] [address] May, [facility] [address] [id number] [address] [place] [address] May, [facility] [address] [id number] [address] [place] [address] May, [facility] [address] [id number] [address] [place] [address] Apr, [facility] [address] [id number] [address] [place] [address] Jan, [facility] [address] [id number] [address] [place] [address] November, IMMUNIZATIONS No Known Immunizations SOCIAL HISTORY Never Assessed REASON FOR VISIT hotflashes--tcuppettRN, Patient has concerns for menopause. Having very irregula r periods for past 6 months-year PLAN OF CARE Activity Details Follow Up prn with PCP Alfred Reason: VITAL SIGNS Height 72 in 2017-02-13 Weight 213.3 lbs 2017-02-13 Temperature 97.7 degrees Fahrenheit 2017-02-13 Heart Rate 76 bpm 2017-02-13 Respiratory Rate 20 2017-02-13 BMI 28.93 kg/m2 2017-02-13 Blood pressure systolic 132 mmHg 2017-02-13 Blood pressure diastolic 80 mmHg 2017-02-13 MEDICATIONS Medication Instructions Dosage Frequency Start Date End Date Duration S barry Hydrocodone-Acetaminophen 5-325 MG Orally 3 times a day 1 tablet as needed 8h Dec, 10 days Active Vitamin D 1000 UNIT Orally Once a day 1 tablet 24h Active Sertraline HCl 100 MG Orally Once a day 1 tablet 24h Active Lamotrigine 150 MG Orally at bedtime 1 tablet Active Levothyroxine Sodium 100 MCG Orally Once a day 1 tablet on an empty stomach in the morning 24h Active Ranitidine HCl 150 TAKE ONE TABLET BY M OUTH TWICE A DAY NEEDED FOR HEARTBURN FOR 14 DAYS 15 Active Melatonin 5 mg 0.5 Tablet by Oral route 1 time per day at night November, Active ProAir HFA 90 mcg/actuation inhale 2 puf fs by Inhalation route every 4 hours as needed PRN shortness of breath/cough Jun, Active Baclofen 10 Orally Three times a day 1 tablet with food or milk 8h 30 Active Loratadine 10 MG Orally Once a day 1 tablet 24h Active Lisinopril 5 mg Orally Once a day 1 tablet 24h Jun, Active Montelukast Sodium 10 MG Orally at bedtime 1 tablet Active Lisinopril 5 TAKE ONE TABLET BY MOUTH DAILY 30 Active BuPROPion HCl 300 mg Orally Once a day 1 tablet 24h Mar, Active RESULTS No Results PROCEDURES Procedure Date Ordered Result Body Site [facility] VISIT ESTABLISHED PATIENT Feb 13, 2017 INSTRUCTIONS MEDICATIONS ADMINISTERED No Known Medications [...]
--- OUTSIDE RECORDS SUMMARY | 2020-01-31 09:56 | XMS REPORT ---
Author Author Ivet Arce Organization [facility] Address [address] [place] [address] Care Team Providers Care Motorbike Courier Name Role Phone SEA Arce Unavailable PROBLEMS Type Condition ICD9-CM Code ARM81-FH Code Onset Dates Condition S tatus SNOMED Code Problem Essential hypertension I10 Active 08049858 Problem Osteoarthritis M19.90 Active 02435 5006 Problem Schizo affective schizophrenia F25.0 Active 507960350 Problem Depression F32.9 Active 25804088 Problem GERD (gastroesophageal reflux disease) K21.9 Active 613023440 Problem Hypothyroidism E03.9 Active 45162 008 Problem Anxiety F41.9 Active 39854943 Problem Iron deficiency anemia, unspecified iron deficiency an emia type D50.9 Active 84964474 Problem Vitamin D deficiency E55.9 Active 05570811 Problem Bilateral carotid artery disease I77.9 Active 144893791 Problem Low back pain, unspecified b ack pain laterality, unspecified chronicity, with sciatica presence unspecified M54.5 Active 203333081 Problem Fibromyalgia M79.7 Active 0414558 05 Problem Stage 3 chronic kidney disease N18.3 Active 152803554 ALLERGIES Substance Reaction Event Type Date Status Silvadene Unknown Drug Allergy Dec, Active Penicillin V Potassium Unknown Drug Allergy Dec, Activ e Levaquin muscle/joint ache Drug Allergy Dec, Active Feldene Unknown Drug Allergy Dec, Active Cholecalciferol (vitamin D3) 50,000 Unit Capsule threw /meds labs out of whack Non Drug Allergy Dec, Active ENCOUNTERS Encounter Location Date Diagnosis [facility] [address] [facility] [id number] [address] [place] [id number] Oct, [facility] [address] [facility] [id number] [address] [place] [address] 13 Mar, 2018 Fibromyalgia M79.7 [facility] [address] [address] Sep, Fibromyalgia M79.7 ; Plantar fasciitis, bilateral M72.2 ; Essential hypertension I10 ; Depression F32.9 and Epidermoid cyst L72.0 [facility] [address] [address] Jul, [facility] [address] [address] Jul, Fibromyalgia M79.7 ; Iron de ficiency anemia, unspecified iron deficiency anemia type D50.9 and Acute nasopharyngitis J00 [facility] [address] [address] Jun, Sore throat J02.9 and Acute serous otitis media of left ear, recurrence not specified H65.02 [facility] [address] [address] Jun, Hypothyroidism E03.9 [place] [address] [address] Jun, [place] [address] [address] Jun, Hypothyroidism E03.9 ; Essen tial hypertension I10 and Osteoarthritis M19.90 [place] [address] [address] May, [place] [address] [address] May, [place] [address] [address] Feb, [place] [address] [address] Feb, Leonela-menopausal N95.1 and To bacco use Z72.0 [place] [address] [address] Jan, [facility] [address] [facility] [id number] [address] [place] [address] Jan, Osteoarthritis M19.90 ; Bila teral carotid artery disease I77.9 ; Raynauds syndrome I73.00 ; Essential hypertension I10 ; Allergic rhinitis J30.9 ; Stage 3 chronic kidney disease N18.3 ; Fibromyalgia M79.7 ; Hypothyroidism E03.9 ; GERD (gastroesophageal reflux disease) K21.9 and Vitamin D deficiency E55.9 [facility] [address] [facility] [id number] [address] [place] [address] Dec, Raynauds syndrome I73.00 ; P lantar fascial fibromatosis M72.2 ; Osteoarthritis M19.90 and Fibromyalgia M79.7 [place] [address] [place] [id number] [address] [place] [address] Dec, [place] [address] [place] [id number] [address] [place] [address] Dec, [facility] [address] [facility] [id number] [address] [place] [address] Oct, Function kidney decreased N2 8.9 [facility] [address] [place] [id number] [address] [place] [id number] Oct, Dental examination Z01.20 [facility] [address] [facility] [id number] [address] [place] [address] Oct, Essential hypertension I10 a nd Function kidney decreased N28.9 [facility] [address] [id number] [address] [place] [address] [id number] Oct, Dental examination Z01.20 [facility] [address] [facility] [id number] [address] [place] [address] Oct, [facility] [address] [facility] [id number] [address] [place] [address] Sep, Other specified disorders in volving the immune mechanism D89.89 and Schizo affective schizophrenia F25.0 [facility] [address] [place] [id number] [address] [place] [address] Sep, Schizo affective schizophren ia F25.0 [facility] [address] [address] 16 Sep, 2016 Eustachian tube dysfunction, bilateral H69.83 [place] [address] [address] 15 Sep, 2016 [facility] [address] [address] 14 Sep, 2016 [place] [address] [address] 14 Sep, 2016 [place] [address] [address] 13 Sep, 2016 Eustachian tube dysfunction, bilateral H69.83 [place] [address] [address] Sep, Allergic rhinitis J30.9 ; Es sential hypertension I10 ; Hypothyroidism E03.9 and Schizo affective schizophrenia F25.0 [place] [address] [address] Jul, Eustachian tube dysfunction, bilateral H69.83 and Visit for TB skin test Z11.1 [facility] [address] [address] Jul, Subacute pansinusitis J01.40 [facility] [address] [address] Jun, Schizo affective schizophren ia F25.0 ; Depression F32.9 ; Allergic rhinitis J30.9 ; Raynauds syndrome I73.00 ; Essential hypertension I10 ; Slow transit constipation K59.01 ; GERD (gastroesophageal reflux disease) K21.9 ; Hypothyroidism E03.9 ; Nicotine addiction F17.200 ; Other viral agents as the cause of diseases classified elsewhere B97.89 ; Acute upper respiratory infection, unspecified J06.9 and Osteoarthritis M19.90 [place] [id number] [place] [address] 02 Jun, 2016 Allergic rhinitis J30.9 and GERD (gastroesophageal reflux disease) K21.9 [place] [address] [facility] [id number] [address] [place] [address] 18 May, 2016 [place] [address] [place] [id number] [place] [address] 27 Mar, 2016 Schizo affective schizophren ia F25.0 [place] [address] [facility] [id number] [address] [place] [address] 22 Mar, 2016 Schizo affective schizophren ia F25.0 [place] [address] [place] [id number] [place] [address] 15 Mar, 2016 Schizo affective schizophren ia F25.0 [place] [address] [address] Mar, Acute non-recurrent maxillar y sinusitis J01.00 [place] [address] [place] [id number] [address] [place] [address] Feb, Schizo affective schizophren ia F25.0 [place] [address] [address] Feb, Contact dermatitis and eczem a L25.9 [place] [address] [place] [id number] [address] [place] [address] Jan, [place] [address] [place] [id number] [address] [place] [address] Jan, Schizo affective schizophren ia F25.0 ; Slow transit constipation K59.01 ; Essential hypertension I10 ; GERD (gastroesophageal reflux disease) K21.9 ; Hypothyroidism E03.9 ; Osteoarthritis M19.90 ; Low back pain, unspecified back pain laterality, unspecified chronicity, with sciatica presence unspecified M54.5 and Bilateral carotid artery disease I77.9 [place] [address] [address] Oct, [place] [address] [address] Sep, Hypothyroid E03.9 [facility] [address] [address] Sep, Schizo affective schizophren ia F25.0 ; Depression F32.9 ; Anxiety F41.9 ; Allergic rhinitis J30.9 ; Raynauds syndrome I73.00 ; Insomnia G47.00 ; Essential hypertension I10 ; GERD (gastroesophageal reflux disease) K21.9 ; Hypothyroidism E03.9 and Vitamin D deficiency E55.9 [place] [address] [address] Sep, [address] [address] Sep, [place] [address] [address] Aug, Allergic rhinitis J30.9 ; De pression F32.9 ; Anxiety F41.9 ; Raynauds syndrome I73.00 ; Insomnia G47.00 and GERD (gastroesophageal reflux disease) K21.[address] [address] Aug, MONICA (secretory otitis media) H65.90 and Raynauds syndrome I73.00 [facility] [address] [address] Jul, Acute otitis externa of both ears, unspecified type H60.[address] [address] Jun, [place] [address] [address] Jun, Essential hypertension I10 ; Allergic rhinitis J30.9 ; Hypothyroidism E03.9 and Osteoarthritis M19.90 [facility] [address] [place] [id number] [address] [place] [address] Jun, Routine adult health mainten ance Z00.00 ; Hypothyroidism E03.9 ; Essential hypertension I10 ; Insomnia G47.00 ; Nicotine addiction F17.200 ; Raynauds syndrome I73.00 ; GERD (gastroesophageal reflux disease) K21.9 ; Allergic rhinitis J30.9 ; Anxiety F41.9 ; Depression F32.9 and Schizo affective schizophrenia F25.0 [facility] [address] [place] [id number] [address] [place] [address] May, Upper respiratory tract infe ction, unspecified type J06.9 [facility] [address] [place] [id number] [address] [place] [address] Mar, [facility] [address] [facility] [id number] [place], [facility] [id number] Mar, [facility] [address] [address] Mar, [facility] [address] [address] Mar, [facility] [address] [address] Feb, Jaw pain 784.92 and Environm ental and seasonal allergies 477.8 [place] [address] [place] [id number] [address] [place] [address] Feb, [facility] [address] [place] [id number] [place] [address] Oct, [facility] [address] [address] Oct, [facility] [address] [address] Oct, [facility] [address] [address] Oct, [facility] [address] [id number] [address] [place] [address], [place] [address] Sep, [facility] [address] [id number] [address] [place] [address], [place] [address] Sep, [facility] [address] [id number] [address] [place] [address], [place] [address] Jul, [facility] [address] [id number] [address] [place] [address], [place] [address] Jul, [facility] [address] [id number] [address] [place] [address], [place] [address] Jul, [facility] [address] [id number] [address] [place] [address], [place] [address] Jul, [facility] [address] [id number] [address] [place] [address], [place] [address] Jul, [facility] [address] [id number] [address] [place] [address], [place] [address] Jul, [facility] [address] [id number] [address] [place] [address], [place] [address] Jul, [facility] [address] [id number] [address] [place] [address], [place] [address] Jun, [facility] [address] [id number] [address] [place] [address], [place] [address] 31 Jun, 2014 [facility] [address] [id number] [address] [place] [address], [place] [address] 22 Jun, 2014 [facility] [address] [id number] [address] [place] [address], [place] [address] 18 Jun, 2014 [facility] [address] [id number] [address] [place] [address], [place] [address] 17 Jun, 2014 [facility] [address] [id number] [address] [place] [address], [place] [address] 17 Jun, 2014 [facility] [address] [id number] [address] [place] [address], [place] [address] Jun, [facility] [address] [id number] [address] [place] [address], [place] [address] 16 Jun, 2014 [facility] [address] [id number] [address] [place] [address], [place] [address] Apr, [facility] [address] [id number] [address] [place] [address], [place] [address] Apr, [facility] [address] [id number] [address] [place] [address], [place] [address] Mar, [facility] [address] [id number] [address] [place] [address], [place] [address] 17 Mar, 2014 [facility] [address] [id number] [address] [place] [address], [place] [address] Mar, [facility] [address] [id number] [address] [place] [address], [place] [address] Mar, [facility] [address] [id number] [address] [place] [address], [place] [address] Jan, [facility] [address] [id number] [address] [place] [address], [place] [address] Jan, [facility] [address] [id number] [address] [place] [address], [place] [address] Oct, [facility] [address] [id number] [address] [place] [address], [place] [address] Oct, [facility] [address] [id number] [address] [place] [address], [place] [address] Sep, [facility] [address] [id number] [address] [place] [address], [place] [address] Sep, [facility] [address] [id number] [address] [place] [address], [place] [address] Sep, [facility] [address] [id number] [address] [place] [address], [place] [address] Sep, [facility] [address] [id number] [address] [place] [address], [place] [address] Sep, [facility] [address] [id number] [address] [place] [address], [place] [address] Sep, [facility] [address] [id number] [address] [place] [address], [place] [address] Aug, [facility] [address] [id number] [address] [place] [address], [place] [address] Aug, [facility] [address] [id number] [address] [place] [address], [place] [address] Jul, [facility] [address] [id number] [address] [place] [address], [place] [address] Jul, [facility] [address] [id number] [address] [place] [address], [place] [address] Jul, [facility] [address] [id number] [address] [place] [address], [place] [address] Jul, [facility] [address] [id number] [address] [place] [address], [place] [address] Jun, [facility] [address] [id number] [address] [place] [address], [place] [address] Jun, [facility] [address] [id number] [address] [place] [address], [place] [address] May, [facility] [address] [id number] [address] [place] [address], [place] [address] May, [facility] [address] [id number] [address] [place] [address], [place] [address] Apr, [facility] [address] [id number] [address] [place] [address], [place] [address] Apr, [facility] [address] [id number] [address] [place] [address], [place] [address] Apr, [facility] [address] [id number] [address] [place] [address], [place] [address] Apr, [facility] [address] [id number] [address] [place] [address], [place] [address] Apr, [facility] [address] [id number] [address] [place] [address], [place] [address] Apr, [facility] [address] [id number] [address] [place] [address], [place] [address] 24 Mar, 2013 [facility] [address] [id number] [address] [place] [address], [place] [address] Mar, [facility] [address] [id number] [address] [place] [address], [place] [address] Mar, [facility] [address] [id number] [address] [place] [address], [place] [address] 05 Mar, 2013 [facility] [address] [id number] [address] [place] [address], [place] [address] Mar, [facility] [address] [id number] [address] [place] [address], [place] [address] 30 Feb, 2013 [facility] [address] [id number] [address] [place] [address], [place] [address] Feb, [facility] [address] [id number] [address] [place] [address], [place] [address] Feb, [facility] [address] [id number] [address] [place] [address], [place] [address] Feb, [facility] [address] [id number] [address] [place] [address], [place] [address] Jan, [facility] [address] [id number] [address] [place] [address], [place] [address] Jan, [facility] [address] [id number] [address] [place] [address], [place] [address] 16 Jan, 2013 [facility] [address] [id number] [address] [place] [address], [place] [address] Jan, [facility] [address] [id number] [address] [place] [address], [place] [address] Jan, [facility] [address] [id number] [address] [place] [address], [place] [address] Jan, [facility] [address] [id number] [address] [place] [address], [place] [address] Dec, [facility] [address] [id number] [address] [place] [address], [place] [address] Dec, [facility] [address] [id number] [address] [place] [address], [place] [address] Dec, [facility] [address] [id number] [address] [place] [address], [place] [address] 14 Dec, 2012 [facility] [address] [id number] [address] [place] [address], [place] [address] Dec, [facility] [address] [id number] [address] [place] [address], [place] [address] Dec, [facility] [address] [id number] [address] [place] [address], [place] [address] Dec, [facility] [address] [id number] [address] [place] [address], [place] [address] Dec, [facility] [address] [id number] [address] [place] [address], [place] [address] 05 Dec, 2012 [facility] [address] [id number] [address] [place] [address], [place] [address] Dec, [facility] [address] [id number] [address] [place] [address], [place] [address] November, [facility] [address] [id number] [address] [place] [address], [place] [address] November, [facility] [address] [id number] [address] [place] [address], [place] [address] November, [facility] [address] [id number] [address] [place] [address], [place] [address] November, [facility] [address] [id number] [address] [place] [address], [place] [address] November, [facility] [address] [id number] [address] [place] [address], [place] [address] Oct, [facility] [address] [id number] [address] [place] [address], [place] [address] Oct, [facility] [address] [id number] [address] [place] [address], [place] [address] Oct, [facility] [address] [id number] [address] [place] [address], [place] [address] Oct, [facility] [address] [id number] [address] [place] [address], [place] [address] Oct, [facility] [address] [id number] [address] [place] [address], [place] [address] Sep, [facility] [address] [id number] [address] [place] [address], [place] [address] Sep, [facility] [address] [id number] [address] [place] [address], [place] [address] Sep, [facility] [address] [id number] [address] [place] [address], [place] [address] Sep, [facility] [address] [id number] [address] [place] [address], [place] [address] Aug, [facility] [address] [id number] [address] [place] [address], [place] [address] Aug, [facility] [address] [id number] [address] [place] [address], [place] [address] Aug, [facility] [address] [id number] [address] [place] [address], [place] [address] 15 Aug, 2012 [facility] [address] [id number] [address] [place] [address], [place] [address] Jun, [facility] [address] [id number] [address] [place] [address], [place] [address] 17 Jun, 2012 [facility] [address] [id number] [address] [place] [address], [place] [address] Jun, [facility] [address] [id number] [address] [place] [address], [place] [address] Jun, [facility] [address] [id number] [address] [place] [address], [place] [address] Jun, [facility] [address] [id number] [address] [place] [address], [place] [address] Jun, [facility] [address] [id number] [address] [place] [address], [place] [address] Jun, [facility] [address] [id number] [address] [place] [address], [place] [address] Jun, [facility] [address] [id number] [address] [place] [address], [place] [address] Jun, [facility] [address] [id number] [address] [place] [address], [place] [address] Jun, [facility] [address] [id number] [address] [place] [address], [place] [address] May, [facility] [address] [id number] [address] [place] [address], [place] [address] May, [facility] [address] [id number] [address] [place] [address], [place] [address] May, [facility] [address] [id number] [address] [place] [address], [place] [address] May, [facility] [address] [id number] [address] [place] [address], [place] [address] May, [facility] [address] [id number] [address] [place] [address], [place] [address] 16 May, 2012 [facility] [address] [id number] [address] [place] [address], [place] [address] May, [facility] [address] [id number] [address] [place] [address], [place] [address] 14 May, 2012 [facility] [address] [id number] [address] [place] [address], [place] [address] 14 May, 2012 [facility] [address] [id number] [address] [place] [address], [place] [address] 30 Apr, 2012 [facility] [address] [id number] [address] [place] [address], [place] [address] 30 Apr, 2012 [facility] [address] [id number] [address] [place] [address], [place] [address] 17 Apr, 2012 [facility] [address] [id number] [address] [place] [address], [place] [address] 17 Apr, 2012 [facility] [address] [id number] [address] [place] [address], [place] [address] Apr, [facility] [address] [id number] [address] [place] [address], [place] [address] 18 Mar, 2012 [facility] [address] [id number] [address] [place] [address], [place] [address] 17 Mar, 2012 [facility] [address] [id number] [address] [place] [address], [place] [address] 07 Mar, 2012 [facility] [address] [id number] [address] [place] [address], [place] [address] 27 Feb, 2012 [facility] [address] [id number] [address] [place] [address], [place] [address] 16 Feb, 2012 [facility] [address] [id number] [address] [place] [address], [place] [address] 15 Feb, 2012 [facility] [address] [id number] [address] [place] [address], [place] [address] 14 Feb, 2012 [facility] [address] [id number] [address] [place] [address], [place] [address] Jan, [facility] [address] [id number] [address] [place] [address], [place] [address] Jan, [facility] [address] [id number] [address] [place] [address], [place] [address] Jan, [facility] [address] [id number] [address] [place] [address], [place] [address] Jan, [facility] [address] [id number] [address] [place] [address], [place] [address] Jan, [facility] [address] [id number] [address] [place] [address], [place] [address] Jan, [facility] [address] [id number] [address] [place] [address], [place] [address] Dec, [facility] [address] [id number] [address] [place] [address], [place] [address] Dec, [facility] [address] [id number] [address] [place] [address], [place] [address] Dec, [facility] [address] [id number] [address] [place] [address], [place] [address] November, [facility] [address] [id number] [address] [place] [address], [place] [address] November, [facility] [address] [id number] [address] [place] [address], [place] [address] November, [facility] [address] [id number] [address] [place] [address], [place] [address] November, [facility] [address] [id number] [address] [place] [address], [place] [address] Oct, [facility] [address] [id number] [address] [place] [address], [place] [address] Oct, [facility] [address] [id number] [address] [place] [address], [place] [address] Oct, [facility] [address] [id number] [address] [place] [address], [place] [address] Sep, [facility] [address] [id number] [address] [place] [address], [place] [address] Sep, [facility] [address] [id number] [address] [place] [address], [place] [address] Aug, [facility] [address] [id number] [address] [place] [address], [place] [address] Aug, [facility] [address] [id number] [address] [place] [address], [place] [address] Aug, [facility] [address] [id number] [address] [place] [address], [place] [address] Aug, [facility] [address] [id number] [address] [place] [address], [place] [address] Jul, [facility] [address] [id number] [address] [place] [address], [place] [address] Jul, [facility] [address] [id number] [address] [place] [address], [place] [address] Jul, [facility] [address] [id number] [address] [place] [address], [place] [address] Jul, [facility] [address] [id number] [address] [place] [address], [place] [address] Jul, [facility] [address] [id number] [address] [place] [address], [place] [address] Jul, [facility] [address] [id number] [address] [place] [address], [place] [address] Jul, [facility] [address] [id number] [address] [place] [address], [place] [address] Jul, [facility] [address] [id number] [address] [place] [address], [place] [address] Jun, [facility] [address] [id number] [address] [place] [address], [place] [address] Jun, [facility] [address] [id number] [address] [place] [address], [place] [address] Jun, [facility] [address] [id number] [address] [place] [address], [place] [address] 08 Jun, 2011 [facility] [address] [id number] [address] [place] [address], [place] [address] Jun, [facility] [address] [id number] [address] [place] [address], [place] [address] May, [facility] [address] [id number] [address] [place] [address], [place] [address] May, [facility] [address] [id number] [address] [place] [address], [place] [address] May, [facility] [address] [id number] [address] [place] [address], [place] [address] May, [facility] [address] [id number] [address] [place] [address], [place] [address] May, [facility] [address] [id number] [address] [place] [address], [place] [address] May, [facility] [address] [id number] [address] [place] [address], [place] [address] Apr, [facility] [address] [id number] [address] [place] [address], [place] [address] Apr, [facility] [address] [id number] [address] [place] [address], [place] [address] Apr, [facility] [address] [id number] [address] [place] [address], [place] [address] Feb, [facility] [address] [id number] [address] [place] [address], [place] [address] Feb, [facility] [address] [id number] [address] [place] [address], [place] [address] Oct, [facility] [address] [id number] [address] [place] [address], [place] [address] Jul, [facility] [address] [id number] [address] [place] [address], [place] [address] Jul, [facility] [address] [facility] [id number] [address] [place] [id number] Jun, [facility] [address] [facility] [id number] [address] [place] [id number] May, [facility] [address] [facility] [id number] [address] [place] [id number] May, [facility] [address] [facility] [id number] [address] [place] [id number] May, [facility] [address] [facility] [id number] [address] [place] [id number] Apr, [facility] [address] [facility] [id number] [address] [place] [id number] Jan, [facility] [address] [facility] [id number] [address] [place] [id number] November, IMMUNIZATIONS No Known Immunizations SOCIAL HISTORY Never Assessed REASON FOR VISIT body aches/pain x 1 1/2 weeks since going off the [employer]. Was given Tramadol and was taking with 2 Tylenol but didn't help. Was given Hydrocodone 5/325 and it helped better but is worried about taking them. Payam Ole[facility] [place] PLAN OF CARE Activity Details Follow Up 2 Weeks Reason:myalgia VITAL SIGNS Height 72 in 2017-01-01 Weight 210 lbs 2017-01-01 Temperature 97.3 degrees Fahrenheit 2017-01-01 Heart Rate 88 bpm 2017-01-01 Respiratory Rate 18 2017-01-01 BMI 28.48 kg/m2 2017-01-01 Blood pressure systolic 124 mmHg 2017-01-01 Blood pressure diastolic 76 mmHg 2017-01-01 MEDICATIONS Medication Instructions Dosage Frequency Start Date End Date Duration S tatus Vitamin D 1000 UNIT Orally Once a day 1 tablet 24h Active ProAir HFA 90 mcg/actuation inhale 2 puf fs by Inhalation route every 4 hours as needed PRN shortness of breath/cough Jun, Active BuPROPion HCl 300 mg Orally Once a day 1 tablet 24h Mar, Active Melatonin 5 mg 0.5 Tablet by Oral route 1 time per day at night November, Active Baclofen 10 mg Orally Three times a day 1 tablet with food or milk 8h Dec, Jan, 30 day(s) Active Lamotrigine 50 MG Orally at bedtime 1 tablet Active Sertraline HCl 100 MG Orally Once a day 1 tablet 24h Active Lisinopril 5 mg Orally Once a day 1 tablet 24h Jun, Active Loratadine 10 MG Orally Once a day 1 tablet 24h Active Ranitidine HCl 150 TAKE ONE TABLET BY M OUTH TWICE A DAY NEEDED FOR HEARTBURN FOR 14 DAYS 15 Active Montelukast Sodium 10 MG Orally at bedtime 1 tablet Active Levothyroxine Sodium 100 MCG Orally Once a day 1 tablet on an empty stomach in the morning 24h Active Ultram 50 mg Orally 4 times a day 1 tablet as needed 6h 2016Jan, Active Fluticasone Furoate 50mcg Nasally Once a day 1 spray per nostril 24h Active Hydrocodone-Acetaminophen 5-325 MG Orally 3 times a day 1 tablet as needed 8h Dec, 10 days Active Topiramate 50 MG Orally at bedtime 1 tablet Active RESULTS No Results PROCEDURES Procedure Date Ordered Result Body Site [facility]IS[facility] ESTABLISHED PATIENT January 01, 2017 INSTRUCTIONS MEDICATIONS ADMINISTERED No Known Medications [...]
--- OUTSIDE RECORDS SUMMARY | 2020-01-31 09:58 | XMS REPORT | Continuity of Care Document ---
Demographics Preferred Language Unknown Marital Status Unknown Restorationism Affiliation Unknown Race Unknown Ethnic Group Unknown Author Organization Unknown Address Unknown Phone Unavailable Allergies Active Description Code Type Severity Reaction Onset Reported/Identified Relationship to Patient Clinical Status Yes erythromycin Drug Allergy N/A N/A 11/03/2008 Yes Feldene Drug Allergy N/A N/A 11/03/2008 Yes Keflex Drug Allergy N/A N/A 11/03/2008 Yes Penicillins Drug Allergy N/A N/A 11/03/2008 Yes Silvadene Drug Allergy N/A N/A 11/03/2008 Yes tetracycline Drug Allergy N/A N/A 11/03/2008 Yes zithromycin OA N/A N/A 11/03/2008 Yes erythromycin Drug Allergy 11/03/2008 Yes Feldene Drug Allergy 11/03/2008 Yes Keflex Drug Allergy 11/03/2008 Yes Penicillins Drug Allergy 11/03/2008 Yes Silvadene Drug Allergy 11/03/2008 Yes tetracycline Drug Allergy 11/03/2008 Yes zithromycin OA 11/03/2008 Yes Bactrim Drug Allergy N/A N/A 10/19/2009 Yes Jane Drug Allergy 10/19/2009 Yes Bactrim Drug Allergy 10/19/2009 Yes ZIPSOR ZIPSOR Mild N/A 11/17/2009 Yes azithromycin [id number] Drug Allergy Unknown N/A 01/18/2010 Yes epinephrine Drug Allergy N/A N/A 01/25/2010 Yes epinephrine Drug Allergy 01/25/2010 Yes ZITHROMYCIN ZITHROMYCIN Unknown N/A 05/28/2010 Yes prednisone [id number] Drug Allerg y Unknown N/A 08/09/2011 Yes Codeine Drug Allergy N/A N/A 12/26/2011 Yes Codeine Drug Allergy 12/26/2011 Yes cholecalciferol (vitamin D3) 50,000 unit capsule Drug Allergy 02/24 Yes MENTAL MOOD CHANGES MENTAL MOOD CHANGE S Unknown CAUSE TO HAVE S 06/14 Yes pantoprazole [id number] Drug Allergy Mild N/A 04/22/2019 Yes sulfamethoxazole [id number] Drug Allergy Mild N/A 04/22/2019 Yes trimethoprim [id number] Drug Allergy Mild N/A 04/22/2019 Yes cephalexin [id number] Drug Allerg y Unknown N/A 04/22/2019 Yes epinephrine [id number] Drug Aller gy Unknown N/A 04/22/2019 Yes erythromycin base [id number] Drug Allergy Unknown N/A 04/22/2019 Yes Penicillins [id number] Drug Aller gy Unknown N/A 04/22/2019 Yes piroxicam [id number] Drug Allergy Unknown N/A 04/22/2019 Yes silver sulfadiazine [id number] Drug Allergy Unknown N/A 04/22/2019 Yes tetracycline [id number] Drug Allergy Unknown N/A 04/22/2019 Medications There is no data. Problems Date Dx Coded Attending Type Code Diagnosis Diagnosed By 06/12/1427 ARMAAN VILLALPANDO MD, Ot D64.9 ANEMIA, UNSPECIFIED 06/12/1427 ARMAAN VILLALPANDO MD, Ot I12.9 HYPERTENSIVE CHRONIC KIDNEY DISEASE W ST 06/12/1427 ARMAAN VILLALPANDO MD, Ot N18.3 CHRONIC KIDNEY DISEASE, STAGE 3 (MODERAT 11/03/2008 QUYEN TURNER APRN S 536.8 DYSPEPSIA 11/03/2008 QUYEN TURNER APRN S 626.4 irregular length of menstrual periods 11/03/2008 QUYEN TURNER APRN S V72.31 Pelvic Exam (Internal) 11/03/2008 QUYEN TURNER APRN S 536.8 DYSPEPSIA 11/03/2008 QUYEN TURNER APRN S 626.4 irregular length of menstrual periods 11/03/2008 QUYEN TURNER APRN S V72.31 Pelvic Exam (Internal) 11/03/2008 PAUL MERLOS DO 536 .8 DYSPEPSIA 11/03/2008 PAUL MERLOS DO 626 .4 irregular length of menstrual periods 11/03/2008 PAUL MERLOS DO V72 .31 Pelvic Exam (Internal) 11/03/2008 536.8 DYSP EPSIA 11/03/2008 626.4 irre gular length of menstrual periods 11/03/2008 V72.31 Pel dean Exam (Internal) 11/03/2008 PAUL MERLOS DO 536 .8 DYSPEPSIA 11/03/2008 PAUL MERLOS DO 626 .4 irregular length of menstrual periods 11/03/2008 PAUL MERLOS DO V72 .31 Pelvic Exam (Internal) 11/03/2008 536.8 DYSP EPSIA 11/03/2008 626.4 irre gular length of menstrual periods 11/03/2008 V72.31 Pel dean Exam (Internal) 11/03/2008 536.8 DYSP EPSIA 11/03/2008 626.4 irre gular length of menstrual periods 11/03/2008 V72.31 Pel dean Exam (Internal) 11/03/2008 536.8 DYSP EPSIA 11/03/2008 626.4 irre gular length of menstrual periods 11/03/2008 V72.31 Pel dean Exam (Internal) 11/03/2008 536.8 DYSP EPSIA 11/03/2008 626.4 irre gular length of menstrual periods 11/03/2008 V72.31 Pel dean Exam (Internal) 11/03/2008 536.8 DYSP EPSIA 11/03/2008 626.4 irre gular length of menstrual periods 11/03/2008 V72.31 Pel dean Exam (Internal) 11/03/2008 536.8 DYSP EPSIA 11/03/2008 626.4 irre gular length of menstrual periods 11/03/2008 V72.31 Pel dean Exam (Internal) 11/03/2008 536.8 DYSP EPSIA 11/03/2008 626.4 irre gular length of menstrual periods 11/03/2008 V72.31 Pel dean Exam (Internal) 11/03/2008 536.8 DYSP EPSIA 11/03/2008 626.4 irre gular length of menstrual periods 11/03/2008 V72.31 Pel dean Exam (Internal) 11/03/2008 536.8 DYSP EPSIA 11/03/2008 626.4 irre gular length of menstrual periods 11/03/2008 V72.31 Pel dean Exam (Internal) 11/03/2008 536.8 DYSP EPSIA 11/03/2008 626.4 irre gular length of menstrual periods 11/03/2008 V72.31 Pel dean Exam (Internal) 11/03/2008 536.8 DYSP EPSIA 11/03/2008 626.4 irre gular length of menstrual periods 11/03/2008 V72.31 Pel dean Exam (Internal) 11/03/2008 CHANTELLE AMADOR APRN 536.8 DYSPEPSIA 11/03/2008 CHANTELLE AMADOR APRN 626.4 irregular length of menstrual periods 11/03/2008 CHANTELLE AMADOR APRN V72.31 Pelvic Exam (Internal) 11/03/2008 LINDY GALINDO APRN N 536.8 DYSPEPSIA 11/03/2008 ARNOLDHE SOLO APRNCY N 626.4 irregular length of menstrual periods 11/03/2008 HE GALINDO APRNCY N V72.31 Pelvic Exam (Internal) 11/03/2008 CHANTELLE AMADOR APRN 536.8 DYSPEPSIA 11/03/2008 CHANTELLE AMADOR APRN 626.4 irregular length of menstrual periods 11/03/2008 CHANTELLE AMADOR APRN V72.31 Pelvic Exam (Internal) 11/03/2008 WHITE DDS, KURT J 53 6.8 DYSPEPSIA 11/03/2008 WHITE DDS, KURT J 62 6.4 irregular length of menstrual periods 11/03/2008 WHITE DDS, KURT J V72.31 Pelvic Exam (Internal) 11/03/2008 WHITE DDS, KURT J 53 6.8 DYSPEPSIA 11/03/2008 WHITE DDS, KURT J 62 6.4 irregular length of menstrual periods 11/03/2008 WHITE DDS, KURT J V72.31 Pelvic Exam (Internal) 11/03/2008 HE GALINDO APRNCY N 536.8 DYSPEPSIA 11/03/2008 ARNOLDHE SOLO APRNCY N 626.4 irregular length of menstrual periods 11/03/2008 HE GALINDO APRNCY N V72.31 Pelvic Exam (Internal) 11/03/2008 HE GALINDO APRNCY N 536.8 DYSPEPSIA 11/03/2008 HE GALINDO APRNCY N 626.4 irregular length of menstrual periods 11/03/2008 HE GALINDO APRNCY N V72.31 Pelvic Exam (Internal) 11/03/2008 WHITE DDS, KURT J 53 6.8 DYSPEPSIA 11/03/2008 WHITE DDS, KURT J 62 6.4 irregular length of menstrual periods 11/03/2008 WHITE DDS, KURT J V72.31 Pelvic Exam (Internal) 11/03/2008 CATALINA CARNEYBARRY NUMEROLOGISTHE YangCY N 536.8 DYSPEPSIA 11/03/2008 ARNOLDYRN CARNEYBARRY CALDERON, LINDY N 626.4 irregular length of menstrual periods 11/03/2008 ARNOLD ANGELIKABARRY CALDERON, LINDY N V72.31 Pelvic Exam (Internal) 11/03/2008 WHITE DDS, KURT J 53 6.8 DYSPEPSIA 11/03/2008 WHITE DDS, KURT J 62 6.4 irregular length of menstrual periods 11/03/2008 WHITE DDS, KURT J V72.31 Pelvic Exam (Internal) 11/03/2008 KEV CALDERON VERONIQUE R 536.8 DYSPEPSIA 11/03/2008 KEV CALDERON VERONIQUE R 626.4 irregular length of menstrual periods 11/03/2008 KEV CALDERON VERONIQUE R V72.31 Pelvic Exam (Internal) 11/03/2008 WHITE DDS, KURT J 53 6.8 DYSPEPSIA 11/03/2008 WHITE DDS, KURT J 62 6.4 irregular length of menstrual periods 11/03/2008 WHITE DDS, KURT J V72.31 Pelvic Exam (Internal) 11/03/2008 CATALINA CARNEYHE REDDY APRNCY N 536.8 DYSPEPSIA 11/03/2008 ARNOLDYRN CARNEYHE REDDY APRNCY N 626.4 irregular length of menstrual periods 11/03/2008 CATALINA CARNEYBARRY CALDERON LINDY N V72.31 Pelvic Exam (Internal) 11/03/2008 ARNOLDYRN CARNEYBARRY CALDERON, LINDY N 536.8 DYSPEPSIA 11/03/2008 ARNOLDYRN CARNEYBARRY CALDERON, LINDY N 626.4 irregular length of menstrual periods 11/03/2008 ARNOLDYRN CARNEYBARRY CALDERON, LINDY N V72.31 Pelvic Exam (Internal) 11/03/2008 SCHULTZ DO, CARON K 536.8 DYSPEPSIA 11/03/2008 SCHULTZ DO CARON K 626.4 irregular length of menstrual periods 11/03/2008 SCHULTZ DO, CARON K V72.31 Pelvic Exam (Internal) 11/03/2008 CHARLES NIELSON APRNA L 536 .8 DYSPEPSIA 11/03/2008 LIMA NIELSON APRNWNYA L 626 .4 irregular length of menstrual periods 11/03/2008 CHARLES NIELSON APRNA L V72 .31 Pelvic Exam (Internal) 01/10/2009 JOHNNY CALDERON QUYEN S 558.9 GASTROENTERITIS NONINFECTIOUS 01/10/2009 JOHNNYSTEPHEN BEEN, QUYEN S 787.91 DIARRHEA 01/10/2009 JOHNNYSTEPHEN BEEN, QUYEN S 558.9 GASTROENTERITIS NONINFECTIOUS 01/10/2009 JOHNNYSTEPHEN CALDERON QUYEN S 787.91 DIARRHEA 01/10/2009 PAUL MERLOS DO F 558 .9 GASTROENTERITIS NONINFECTIOUS 01/10/2009 PAUL MERLOS DO F 787 .91 DIARRHEA 01/10/2009 558.9 GAIL ROENTERITIS NONINFECTIOUS 01/10/2009 787.91 RADHA RRHEA 01/10/2009 PAUL MERLOS DO F 558 .9 GASTROENTERITIS NONINFECTIOUS 01/10/2009 WERPAUL DOWNING DO F 787 .91 DIARRHEA 01/10/2009 558.9 GAIL ROENTERITIS NONINFECTIOUS 01/10/2009 787.91 RADHA RRHEA 01/10/2009 558.9 GAIL ROENTERITIS NONINFECTIOUS 01/10/2009 787.91 RADHA RRHEA 01/10/2009 558.9 GAIL ROENTERITIS NONINFECTIOUS 01/10/2009 787.91 RADHA RRHEA 01/10/2009 558.9 GAIL ROENTERITIS NONINFECTIOUS 01/10/2009 787.91 RADHA RRHEA 01/10/2009 558.9 GAIL ROENTERITIS NONINFECTIOUS 01/10/2009 787.91 RADHA RRHEA 01/10/2009 558.9 GAIL ROENTERITIS NONINFECTIOUS 01/10/2009 787.91 RADHA RRHEA 01/10/2009 558.9 GAIL ROENTERITIS NONINFECTIOUS 01/10/2009 787.91 RADHA RRHEA 01/10/2009 558.9 GAIL ROENTERITIS NONINFECTIOUS 01/10/2009 787.91 RADHA RRHEA 01/10/2009 558.9 GAIL ROENTERITIS NONINFECTIOUS 01/10/2009 787.91 RADHA RRHEA 01/10/2009 558.9 GAIL ROENTERITIS NONINFECTIOUS 01/10/2009 787.91 RADHA RRHEA 01/10/2009 558.9 GAIL ROENTERITIS NONINFECTIOUS 01/10/2009 787.91 RADHA RRHEA 01/10/2009 CHANTELLE AMADOR APRN 558.9 GASTROENTERITIS NONINFECTIOUS 01/10/2009 CHANTELLE AMADOR APRN 787.91 DIARRHEA 01/10/2009 CATALINA CARNEYBARRY CALDERON, LINDY N 558.9 GASTROENTERITIS NONINFECTIOUS 01/10/2009 ARNOLD ANGELIKABARRY CALDERON, LINDY N 787.91 DIARRHEA 01/10/2009 CHANTELLE AMADOR APRN 558.9 GASTROENTERITIS NONINFECTIOUS 01/10/2009 CHANTELLE AMADOR APRN 787.91 DIARRHEA 01/10/2009 WHITE DDS, KURT J 55 8.9 GASTROENTERITIS NONINFECTIOUS 01/10/2009 WHITE DDS, KURT J 787.91 DIARRHEA 01/10/2009 WHITE DDS, KURT J 55 8.9 GASTROENTERITIS NONINFECTIOUS 01/10/2009 WHITE DDS, KURT J 787.91 DIARRHEA 01/10/2009 ARNOLD ANGELIKABARRY CALDERON, LINDY N 558.9 GASTROENTERITIS NONINFECTIOUS 01/10/2009 ARNOLD ANGELIKABARRY NUMEROLOGIST, LINDY N 787.91 DIARRHEA 01/10/2009 ARNOLD ANGELIKABARRY NUMEROLOGIST, LINDY N 558.9 GASTROENTERITIS NONINFECTIOUS 01/10/2009 ARNOLD ANGELIKABARRY NUMEROLOGIST, LINDY N 787.91 DIARRHEA 01/10/2009 WHITE DDS, KURT J 55 8.9 GASTROENTERITIS NONINFECTIOUS 01/10/2009 WHITE DDS, KURT J 787.91 DIARRHEA 01/10/2009 ARNOLD CASHBARRY NUMEROLOGIST, LINDY N 558.9 GASTROENTERITIS NONINFECTIOUS 01/10/2009 ARNOLD CASHERO NUMEROLOGIST, LINDY N 787.91 DIARRHEA 01/10/2009 WHITE DDS, KURT J 55 8.9 GASTROENTERITIS NONINFECTIOUS 01/10/2009 WHITE DDS, KURT J 787.91 DIARRHEA 01/10/2009 VERONIQUE ANGULO APRN 558.9 GASTROENTERITIS NONINFECTIOUS 01/10/2009 KEV NUMEROLOGIST, VERONIQUE R 787.91 DIARRHEA 01/10/2009 WHITE DDS, KURT J 55 8.9 GASTROENTERITIS NONINFECTIOUS 01/10/2009 WHITE DDS, KURT J 787.91 DIARRHEA 01/10/2009 ARNOLD ADIEL NUMEROLOGIST, LINDY N 558.9 GASTROENTERITIS NONINFECTIOUS 01/10/2009 ARNOLD CASHERO NUMEROLOGIST, LINDY N 787.91 DIARRHEA 01/10/2009 ARNOLD CASHERO NUMEROLOGIST, LINDY N 558.9 GASTROENTERITIS NONINFECTIOUS 01/10/2009 ARNOLD CASHERO NUMEROLOGIST, LINDY N 787.91 DIARRHEA 01/10/2009 SCHULTZ DO, CARON K 558.9 GASTROENTERITIS NONINFECTIOUS 01/10/2009 SCHULTZ DO, CARON K 787.91 DIARRHEA 01/10/2009 MADL NUMEROLOGIST, PUNEET L 558 .9 GASTROENTERITIS NONINFECTIOUS 01/10/2009 MADL NUMEROLOGIST, PUNEET L 787 .91 DIARRHEA 10/19/2009 JOHNNY BEEN, QUYEN S 244.9 HYPOTHYROIDISM 10/19/2009 JOHNNY NUMEROLOGIST, QUYEN S 295.90 UNSPECIFIED SCHIZOPHRENIA, UNSPECIFIED 10/19/2009 JOHNNY NUMEROLOGIST, QUYEN S 719.40 PAIN IN JOINT, SITE UNSPECIFIED 10/19/2009 JOHNNY NUMEROLOGIST, QUYEN S 729.1 MYALGIA AND MYOSITIS 10/19/2009 JOHNNY NUMEROLOGIST, QUYEN S 787.1 HEARTBURN 10/19/2009 JOHNNY BEEN, QUYEN S 244.9 HYPOTHYROIDISM 10/19/2009 JOHNNY NUMEROLOGIST, QUYEN S 295.90 UNSPECIFIED SCHIZOPHRENIA, UNSPECIFIED 10/19/2009 JOHNNY NUMEROLOGIST, QUYEN S 719.40 PAIN IN JOINT, SITE UNSPECIFIED 10/19/2009 JOHNNY NUMEROLOGIST, QUYEN S 729.1 MYALGIA AND MYOSITIS 10/19/2009 JOHNNY NUMEROLOGIST, QUYEN S 787.1 HEARTBURN 10/19/2009 WERDER DO, PAUL F 244 .9 HYPOTHYROIDISM 10/19/2009 WERDER DOEDNAEN F 295 .90 UNSPECIFIED SCHIZOPHRENIA, UNSPECIFIED 10/19/2009 WERDER DO, PAUL F 719 .40 PAIN IN JOINT, SITE UNSPECIFIED 10/19/2009 PAUL MERLOS DO F 729 .1 MYALGIA AND MYOSITIS 10/19/2009 PAUL MERLOS DO F 787 .1 HEARTBURN 10/19/2009 244.9 HYPO THYROIDISM 10/19/2009 295.90 UNS PECIFIED SCHIZOPHRENIA, UNSPECIFIED 10/19/2009 719.40 BANDAR N IN JOINT, SITE UNSPECIFIED 10/19/2009 729.1 MYAL NEERU AND MYOSITIS 10/19/2009 787.1 HEAR TBURN 10/19/2009 PAUL MERLOS DO F 244 .9 HYPOTHYROIDISM 10/19/2009 GAURANG AVERY, PAUL F 295 .90 UNSPECIFIED SCHIZOPHRENIA, UNSPECIFIED 10/19/2009 PAUL MERLOS DO F 719 .40 PAIN IN JOINT, SITE UNSPECIFIED 10/19/2009 PAUL MERLOS DO F 729 .1 MYALGIA AND MYOSITIS 10/19/2009 PAUL MERLOS DO F 787 .1 HEARTBURN 10/19/2009 244.9 HYPO THYROIDISM 10/19/2009 295.90 UNS PECIFIED SCHIZOPHRENIA, UNSPECIFIED 10/19/2009 719.40 BANDAR N IN JOINT, SITE UNSPECIFIED 10/19/2009 729.1 MYAL NEERU AND MYOSITIS 10/19/2009 787.1 HEAR TBURN 10/19/2009 244.9 HYPO THYROIDISM 10/19/2009 295.90 UNS PECIFIED SCHIZOPHRENIA, UNSPECIFIED 10/19/2009 719.40 BANDAR N IN JOINT, SITE UNSPECIFIED 10/19/2009 729.1 MYAL NEERU AND MYOSITIS 10/19/2009 787.1 HEAR TBURN 10/19/2009 244.9 HYPO THYROIDISM 10/19/2009 295.90 UNS PECIFIED SCHIZOPHRENIA, UNSPECIFIED 10/19/2009 719.40 BANDAR N IN JOINT, SITE UNSPECIFIED 10/19/2009 729.1 MYAL NEERU AND MYOSITIS 10/19/2009 787.1 HEAR TBURN 10/19/2009 244.9 HYPO THYROIDISM 10/19/2009 295.90 UNS PECIFIED SCHIZOPHRENIA, UNSPECIFIED 10/19/2009 719.40 BANDAR N IN JOINT, SITE UNSPECIFIED 10/19/2009 729.1 MYAL NEERU AND MYOSITIS 10/19/2009 787.1 HEAR TBURN 10/19/2009 244.9 HYPO THYROIDISM 10/19/2009 295.90 UNS PECIFIED SCHIZOPHRENIA, UNSPECIFIED 10/19/2009 719.40 BANDAR N IN JOINT, SITE UNSPECIFIED 10/19/2009 729.1 MYAL NEERU AND MYOSITIS 10/19/2009 787.1 HEAR TBURN 10/19/2009 244.9 HYPO THYROIDISM 10/19/2009 295.90 UNS PECIFIED SCHIZOPHRENIA, UNSPECIFIED 10/19/2009 719.40 BANDAR N IN JOINT, SITE UNSPECIFIED 10/19/2009 729.1 MYAL NEERU AND MYOSITIS 10/19/2009 787.1 HEAR TBURN 10/19/2009 244.9 HYPO THYROIDISM 10/19/2009 295.90 UNS PECIFIED SCHIZOPHRENIA, UNSPECIFIED 10/19/2009 719.40 BANDAR N IN JOINT, SITE UNSPECIFIED 10/19/2009 729.1 MYAL NEERU AND MYOSITIS 10/19/2009 787.1 HEAR TBURN 10/19/2009 244.9 HYPO THYROIDISM 10/19/2009 295.90 UNS PECIFIED SCHIZOPHRENIA, UNSPECIFIED 10/19/2009 719.40 BANDAR N IN JOINT, SITE UNSPECIFIED 10/19/2009 729.1 MYAL NEERU AND MYOSITIS 10/19/2009 787.1 HEAR TBURN 10/19/2009 244.9 HYPO THYROIDISM 10/19/2009 295.90 UNS PECIFIED SCHIZOPHRENIA, UNSPECIFIED 10/19/2009 719.40 BANDAR N IN JOINT, SITE UNSPECIFIED 10/19/2009 729.1 MYAL NEERU AND MYOSITIS 10/19/2009 787.1 HEAR TBURN 10/19/2009 244.9 HYPO THYROIDISM 10/19/2009 295.90 UNS PECIFIED SCHIZOPHRENIA, UNSPECIFIED 10/19/2009 719.40 BANDAR N IN JOINT, SITE UNSPECIFIED 10/19/2009 729.1 MYAL NEERU AND MYOSITIS 10/19/2009 787.1 HEAR TBURN 10/19/2009 244.9 HYPO THYROIDISM 10/19/2009 295.90 UNS PECIFIED SCHIZOPHRENIA, UNSPECIFIED 10/19/2009 719.40 BANDAR N IN JOINT, SITE UNSPECIFIED 10/19/2009 729.1 MYAL NEERU AND MYOSITIS 10/19/2009 787.1 HEAR TBURN 10/19/2009 CHANTELLE AMADOR APRN 244.9 HYPOTHYROIDISM 10/19/2009 CHANTELLE AMADOR APRN 295.90 UNSPECIFIED SCHIZOPHRENIA, UNSPECIFIED 10/19/2009 CHANTELLE AMADOR APRN 719.40 PAIN IN JOINT, SITE UNSPECIFIED 10/19/2009 CHANTELLE AMADOR APRN 729.1 MYALGIA AND MYOSITIS 10/19/2009 CHANTELLE AMADOR APRN 787.1 HEARTBURN 10/19/2009 LINDY GALINDO APRN N 244.9 HYPOTHYROIDISM 10/19/2009 LINDY GALINDO APRN N 295.90 UNSPECIFIED SCHIZOPHRENIA, UNSPECIFIED 10/19/2009 LINDY GALINDO APRN N 719.40 PAIN IN JOINT, SITE UNSPECIFIED 10/19/2009 LINDY GALINDO APRN N 729.1 MYALGIA AND MYOSITIS 10/19/2009 LINDY GALINDO APRN N 787.1 HEARTBURN 10/19/2009 CHANTELLE AMADOR APRN 244.9 HYPOTHYROIDISM 10/19/2009 CHANTELLE AMADOR APRN 295.90 UNSPECIFIED SCHIZOPHRENIA, UNSPECIFIED 10/19/2009 CHANTELLE AMADOR APRN 719.40 PAIN IN JOINT, SITE UNSPECIFIED 10/19/2009 CHANTELLE AMADOR APRN 729.1 MYALGIA AND MYOSITIS 10/19/2009 CHANTELLE AMADOR APRN 787.1 HEARTBURN 10/19/2009 WHITE DDS, KURT J 24 4.9 HYPOTHYROIDISM 10/19/2009 WHITE DDS, KURT J 295.90 UNSPECIFIED SCHIZOPHRENIA, UNSPECIFIED 10/19/2009 WHITE DDS, KURT J 719.40 PAIN IN JOINT, SITE UNSPECIFIED 10/19/2009 WHITE DDS, KURT J 72 9.1 MYALGIA AND MYOSITIS 10/19/2009 WHITE DDS, KURT J 78 7.1 HEARTBURN 10/19/2009 WHITE DDS, KURT J 24 4.9 HYPOTHYROIDISM 10/19/2009 WHITE DDS, KURT J 295.90 UNSPECIFIED SCHIZOPHRENIA, UNSPECIFIED 10/19/2009 WHITE DDS, KURT J 719.40 PAIN IN JOINT, SITE UNSPECIFIED 10/19/2009 WHITE DDS, KURT J 72 9.1 MYALGIA AND MYOSITIS 10/19/2009 WHITE DDS, KURT J 78 7.1 HEARTBURN 10/19/2009 ARNOLD CASHERO NUMEROLOGIST, LINDY N 244.9 HYPOTHYROIDISM 10/19/2009 ARNOLD CASHERO NUMEROLOGIST, LINDY N 295.90 UNSPECIFIED SCHIZOPHRENIA, UNSPECIFIED 10/19/2009 ARNOLD CASHERO NUMEROLOGIST, LINDY N 719.40 PAIN IN JOINT, SITE UNSPECIFIED 10/19/2009 ARNOLD CASHERO NUMEROLOGIST, LINDY N 729.1 MYALGIA AND MYOSITIS 10/19/2009 ARNOLD CASHERO NUMEROLOGIST, LINDY N 787.1 HEARTBURN 10/19/2009 ARNOLD CASHERO NUMEROLOGIST, LINDY N 244.9 HYPOTHYROIDISM 10/19/2009 ARNOLD CASHERO NUMEROLOGIST, LINDY N 295.90 UNSPECIFIED SCHIZOPHRENIA, UNSPECIFIED 10/19/2009 ARNOLD CASHERO NUMEROLOGIST, LINDY N 719.40 PAIN IN JOINT, SITE UNSPECIFIED 10/19/2009 ARNOLD CASHERO NUMEROLOGIST, LINDY N 729.1 MYALGIA AND MYOSITIS 10/19/2009 ARNOLD CASHERO NUMEROLOGIST, LINDY N 787.1 HEARTBURN 10/19/2009 WHITE DDS, KURT J 24 4.9 HYPOTHYROIDISM 10/19/2009 WHITE DDS, KURT J 295.90 UNSPECIFIED SCHIZOPHRENIA, UNSPECIFIED 10/19/2009 WHITE DDS, KURT J 719.40 PAIN IN JOINT, SITE UNSPECIFIED 10/19/2009 WHITE DDS, KURT J 72 9.1 MYALGIA AND MYOSITIS 10/19/2009 WHITE DDS, KURT J 78 7.1 HEARTBURN 10/19/2009 ARNOLD CASHERO NUMEROLOGIST, LINDY N 244.9 HYPOTHYROIDISM 10/19/2009 ARNOLD CASHERO NUMEROLOGIST, LINDY N 295.90 UNSPECIFIED SCHIZOPHRENIA, UNSPECIFIED 10/19/2009 ARNOLD CASHERO NUMEROLOGIST, LINDY N 719.40 PAIN IN JOINT, SITE UNSPECIFIED 10/19/2009 ARNOLD CASHERO NUMEROLOGIST, LINDY N 729.1 MYALGIA AND MYOSITIS 10/19/2009 ARNOLD CASHBARRY CALDERON, LINDY N 787.1 HEARTBURN 10/19/2009 WHITE DDS, KURT J 24 4.9 HYPOTHYROIDISM 10/19/2009 WHITE DDS, KURT J 295.90 UNSPECIFIED SCHIZOPHRENIA, UNSPECIFIED 10/19/2009 WHITE DDS, KURT J 719.40 PAIN IN JOINT, SITE UNSPECIFIED 10/19/2009 WHITE DDS, KURT J 72 9.1 MYALGIA AND MYOSITIS 10/19/2009 WHITE DDS, KURT J 78 7.1 HEARTBURN 10/19/2009 KEV NUMEROLOGIST, VERONIQUE R 244.9 HYPOTHYROIDISM 10/19/2009 KEV NUMEROLOGIST, VERONIQUE R 295.90 UNSPECIFIED SCHIZOPHRENIA, UNSPECIFIED 10/19/2009 KEV NUMEROLOGIST, VERONIQUE R 719.40 PAIN IN JOINT, SITE UNSPECIFIED 10/19/2009 KEV NUMEROLOGIST, VERONIQUE R 729.1 MYALGIA AND MYOSITIS 10/19/2009 KEV NUMEROLOGIST, VERONIQUE R 787.1 HEARTBURN 10/19/2009 WHITE DDS, KURT J 24 4.9 HYPOTHYROIDISM 10/19/2009 WHITE DDS, KURT J 295.90 UNSPECIFIED SCHIZOPHRENIA, UNSPECIFIED 10/19/2009 WHITE DDS, KURT J 719.40 PAIN IN JOINT, SITE UNSPECIFIED 10/19/2009 WHITE DDS, KURT J 72 9.1 MYALGIA AND MYOSITIS 10/19/2009 WHITE DDS, KURT J 78 7.1 HEARTBURN 10/19/2009 HE GALINDO APRNCY N 244.9 HYPOTHYROIDISM 10/19/2009 ARNOLD ADIEL CALDERON LINDY N 295.90 UNSPECIFIED SCHIZOPHRENIA, UNSPECIFIED 10/19/2009 ARNOLD CASHBARRY CALDERON, LINDY N 719.40 PAIN IN JOINT, SITE UNSPECIFIED 10/19/2009 ARNOLD CASHBARRY CALDERON LINDY N 729.1 MYALGIA AND MYOSITIS 10/19/2009 ARNOLD CASHBARRY CALDERON LINDY N 787.1 HEARTBURN 10/19/2009 ARNOLD CASHBARRY CALDERON LINDY N 244.9 HYPOTHYROIDISM 10/19/2009 ARNOLD CASHBARRY CALDERON, LINDY N 295.90 UNSPECIFIED SCHIZOPHRENIA, UNSPECIFIED 10/19/2009 ARNOLD CASHBARRY CALDERON LINDY N 719.40 PAIN IN JOINT, SITE UNSPECIFIED 10/19/2009 HE GALINDO APRNCY N 729.1 MYALGIA AND MYOSITIS 10/19/2009 LINDY GALINDO APRN N 787.1 HEARTBURN 10/19/2009 SCHULTZ DO, CARON K 244.9 HYPOTHYROIDISM 10/19/2009 SCHULTZ DO, CARON K 295.90 UNSPECIFIED SCHIZOPHRENIA, UNSPECIFIED 10/19/2009 SCHULTZ DO, CARON K 719.40 PAIN IN JOINT, SITE UNSPECIFIED 10/19/2009 SCHULTZ DO, CARON K 729.1 MYALGIA AND MYOSITIS 10/19/2009 SCHULTZ DO, CARON K 787.1 HEARTBURN 10/19/2009 MADL NUMEROLOGIST, PUNETE L 244 .9 HYPOTHYROIDISM 10/19/2009 MADL NUMEROLOGIST, PUNEET L 295 .90 UNSPECIFIED SCHIZOPHRENIA, UNSPECIFIED 10/19/2009 MADL NUMEROLOGIST, PUNEET L 719 .40 PAIN IN JOINT, SITE UNSPECIFIED 10/19/2009 MADL NUMEROLOGIST, PUNEET L 729 .1 MYALGIA AND MYOSITIS 10/19/2009 MADL NUMEROLOGIST, PUNEET L 787 .1 HEARTBURN 10/24/2009 QUYEN TURNER APRN 268.9 VITAMIN D DEFICIENCY 10/24/2009 QUYEN TURNER APRN S 268.9 VITAMIN D DEFICIENCY 10/24/2009 PAUL MERLOS DO 268 .9 VITAMIN D DEFICIENCY 10/24/2009 268.9 AMRIT MIN D DEFICIENCY 10/24/2009 PAUL MERLOS DO 268 .9 VITAMIN D DEFICIENCY 10/24/2009 268.9 AMRIT MIN D DEFICIENCY 10/24/2009 268.9 AMRIT MIN D DEFICIENCY 10/24/2009 268.9 AMRIT MIN D DEFICIENCY 10/24/2009 268.9 AMRIT MIN D DEFICIENCY 10/24/2009 268.9 AMRIT MIN D DEFICIENCY 10/24/2009 268.9 AMRIT MIN D DEFICIENCY 10/24/2009 268.9 AMRIT MIN D DEFICIENCY 10/24/2009 268.9 AMRIT MIN D DEFICIENCY 10/24/2009 268.9 AMRIT MIN D DEFICIENCY 10/24/2009 268.9 AMRIT MIN D DEFICIENCY 10/24/2009 268.9 AMRIT MIN D DEFICIENCY 10/24/2009 CHANTELLE AMADOR APRN D 268.9 VITAMIN D DEFICIENCY 10/24/2009 HE GALINDO APRNCY N 268.9 VITAMIN D DEFICIENCY 10/24/2009 MARJORIE BEECHANTELLE Yang D 268.9 VITAMIN D DEFICIENCY 10/24/2009 WHITE DDS, KURT J 26 8.9 VITAMIN D DEFICIENCY 10/24/2009 WHITE DDS, KURT J 26 8.9 VITAMIN D DEFICIENCY 10/24/2009 CATALINA CHUN APRN LINDY N 268.9 VITAMIN D DEFICIENCY 10/24/2009 HE GALINDO APRNCY N 268.9 VITAMIN D DEFICIENCY 10/24/2009 WHITE DDS, KURT J 26 8.9 VITAMIN D DEFICIENCY 10/24/2009 HE GALINDO APRNCY N 268.9 VITAMIN D DEFICIENCY 10/24/2009 WHITE DDS, KURT J 26 8.9 VITAMIN D DEFICIENCY 10/24/2009 VERONIQUE ANGULO APRN 268.9 VITAMIN D DEFICIENCY 10/24/2009 WHITE DDS, KURT J 26 8.9 VITAMIN D DEFICIENCY 10/24/2009 LINDY GALINDO APRN N 268.9 VITAMIN D DEFICIENCY 10/24/2009 LINDY GALINDO APRN N 268.9 VITAMIN D DEFICIENCY 10/24/2009 CARON SCHULTZ DO 268.9 VITAMIN D DEFICIENCY 10/24/2009 NISREEN YUMIKO PUNEET Bauman 268 .9 VITAMIN D DEFICIENCY 11/17/2009 Ot 311 11/17/2009 Ot 963.0 11/17/2009 Ot 967.1 11/17/2009 Ot E849.0 11/17/2009 Ot E852.0 11/17/2009 Ot E858.1 11/17/2009 Ot V58.69 11/22/2009 QUYEN TURNER APRN 585.3 CHRONIC KIDNEY DISEASE STAGE 3 11/22/2009 QUYEN TURNER APRN 585.3 CHRONIC KIDNEY DISEASE STAGE 3 11/22/2009 PAUL MERLOS DO 585 .3 CHRONIC KIDNEY DISEASE STAGE 3 11/22/2009 585.3 CONTOUR BAND SAW OPERATOR VERTICAL JESSICA KIDNEY DISEASE STAGE 3 11/22/2009 PAUL MERLOS DO 585 .3 CHRONIC KIDNEY DISEASE STAGE 3 11/22/2009 585.3 CONTOUR BAND SAW OPERATOR VERTICAL JESSICA KIDNEY DISEASE STAGE 3 11/22/2009 585.3 CONTOUR BAND SAW OPERATOR VERTICAL JESSICA KIDNEY DISEASE STAGE 3 11/22/2009 585.3 CONTOUR BAND SAW OPERATOR VERTICAL JESSICA KIDNEY DISEASE STAGE 3 11/22/2009 585.3 CONTOUR BAND SAW OPERATOR VERTICAL JESSICA KIDNEY DISEASE STAGE 3 11/22/2009 585.3 CONTOUR BAND SAW OPERATOR VERTICAL JESSICA KIDNEY DISEASE STAGE 3 11/22/2009 585.3 CONTOUR BAND SAW OPERATOR VERTICAL JESSICA KIDNEY DISEASE STAGE 3 11/22/2009 585.3 CONTOUR BAND SAW OPERATOR VERTICAL JESSICA KIDNEY DISEASE STAGE 3 11/22/2009 585.3 CONTOUR BAND SAW OPERATOR VERTICAL JESSICA KIDNEY DISEASE STAGE 3 11/22/2009 585.3 CONTOUR BAND SAW OPERATOR VERTICAL JESSICA KIDNEY DISEASE STAGE 3 11/22/2009 585.3 CONTOUR BAND SAW OPERATOR VERTICAL JESSICA KIDNEY DISEASE STAGE 3 11/22/2009 585.3 CONTOUR BAND SAW OPERATOR VERTICAL JESSICA KIDNEY DISEASE STAGE 3 11/22/2009 CHANTELLE AMADOR APRN 585.3 CHRONIC KIDNEY DISEASE STAGE 3 11/22/2009 CATALINA CHUN APRN, LINDY N 585.3 CHRONIC KIDNEY DISEASE STAGE 3 11/22/2009 CHANTELLE AMADOR APRN 585.3 CHRONIC KIDNEY DISEASE STAGE 3 11/22/2009 WHITE DDS, KURT J 58 5.3 CHRONIC KIDNEY DISEASE STAGE 3 11/22/2009 WHITE DDS, KURT J 58 5.3 CHRONIC KIDNEY DISEASE STAGE 3 11/22/2009 ARNOLD CASHBARRY CALDERON, LINDY N 585.3 CHRONIC KIDNEY DISEASE STAGE 3 11/22/2009 ARNOLD CASHERO NUMEROLOGIST, LINDY N 585.3 CHRONIC KIDNEY DISEASE STAGE 3 11/22/2009 WHITE DDS, KURT J 58 5.3 CHRONIC KIDNEY DISEASE STAGE 3 11/22/2009 ARNOLD CASHERO NUMEROLOGIST, LINDY N 585.3 CHRONIC KIDNEY DISEASE STAGE 3 11/22/2009 WHITE DDS, KURT J 58 5.3 CHRONIC KIDNEY DISEASE STAGE 3 11/22/2009 VERONIQUE ANGULO APRN 585.3 CHRONIC KIDNEY DISEASE STAGE 3 11/22/2009 WHITE DDS, KURT J 58 5.3 CHRONIC KIDNEY DISEASE STAGE 3 11/22/2009 ARNOLD CASHERO NUMEROLOGIST, LINDY N 585.3 CHRONIC KIDNEY DISEASE STAGE 3 11/22/2009 ARNOLD CASHERO NUMEROLOGIST, LINDY N 585.3 CHRONIC KIDNEY DISEASE STAGE 3 11/22/2009 SCHULTZ DO, CARON K 585.3 CHRONIC KIDNEY DISEASE STAGE 3 11/22/2009 NISREEN NUMEROLOGIST, PUNEET Bauman 585 .3 CHRONIC KIDNEY DISEASE STAGE 3 01/18/2010 Ot 564.00 01/18/2010 Ot 789.09 01/25/2010 JOHNNY NUMEROLOGIST, QUYEN S 110.4 DERMATOPHYTOSIS, OF FOOT 01/25/2010 JOHNNY NUMEROLOGIST, QUYEN S 564.00 CONSTIPATION, UNSPECIFIED 01/25/2010 JOHNNY NUMEROLOGIST, QUYEN S 724.2 LUMBAGO 01/25/2010 JOHNNY NUMEROLOGIST, QUYEN S 110.4 DERMATOPHYTOSIS, OF FOOT 01/25/2010 JOHNNY NUMEROLOGIST, QUYEN S 564.00 CONSTIPATION, UNSPECIFIED 01/25/2010 JOHNNY NUMEROLOGIST, QUYEN S 724.2 LUMBAGO 01/25/2010 PAUL MERLOS DO 110 .4 DERMATOPHYTOSIS, OF FOOT 01/25/2010 PAUL MERLOS DO 564 .00 CONSTIPATION, UNSPECIFIED 01/25/2010 PAUL MERLOS DO F 724 .2 LUMBAGO 01/25/2010 110.4 DERM ATOPHYTOSIS, OF FOOT 01/25/2010 564.00 CON STIPATION, UNSPECIFIED 01/25/2010 724.2 LUMBAGO 01/25/2010 PAUL MERLOS DO F 110 .4 DERMATOPHYTOSIS, OF FOOT 01/25/2010 PAUL MERLOS DO F 564 .00 CONSTIPATION, UNSPECIFIED 01/25/2010 PAUL MERLOS DO 724 .2 LUMBAGO 01/25/2010 110.4 DERM ATOPHYTOSIS, OF FOOT 01/25/2010 564.00 CON STIPATION, UNSPECIFIED 01/25/2010 724.2 LUMBAGO 01/25/2010 110.4 DERM ATOPHYTOSIS, OF FOOT 01/25/2010 564.00 CON STIPATION, UNSPECIFIED 01/25/2010 724.2 LUMBAGO 01/25/2010 110.4 DERM ATOPHYTOSIS, OF FOOT 01/25/2010 564.00 CON STIPATION, UNSPECIFIED 01/25/2010 724.2 LUMBAGO 01/25/2010 110.4 DERM ATOPHYTOSIS, OF FOOT 01/25/2010 564.00 CON STIPATION, UNSPECIFIED 01/25/2010 724.2 LUMBAGO 01/25/2010 110.4 DERM ATOPHYTOSIS, OF FOOT 01/25/2010 564.00 CON STIPATION, UNSPECIFIED 01/25/2010 724.2 LUMBAGO 01/25/2010 110.4 DERM ATOPHYTOSIS, OF FOOT 01/25/2010 564.00 CON STIPATION, UNSPECIFIED 01/25/2010 724.2 LUMBAGO 01/25/2010 110.4 DERM ATOPHYTOSIS, OF FOOT 01/25/2010 564.00 CON STIPATION, UNSPECIFIED 01/25/2010 724.2 LUMBAGO 01/25/2010 110.4 DERM ATOPHYTOSIS, OF FOOT 01/25/2010 564.00 CON STIPATION, UNSPECIFIED 01/25/2010 724.2 LUMBAGO 01/25/2010 110.4 DERM ATOPHYTOSIS, OF FOOT 01/25/2010 564.00 CON STIPATION, UNSPECIFIED 01/25/2010 724.2 LUMBAGO 01/25/2010 110.4 DERM ATOPHYTOSIS, OF FOOT 01/25/2010 564.00 CON STIPATION, UNSPECIFIED 01/25/2010 724.2 LUMBAGO 01/25/2010 110.4 DERM ATOPHYTOSIS, OF FOOT 01/25/2010 564.00 CON STIPATION, UNSPECIFIED 01/25/2010 724.2 LUMBAGO 01/25/2010 CHANTELLE AMADOR APRN 110.4 DERMATOPHYTOSIS, OF FOOT 01/25/2010 CHANTELLE AMADOR APRN 564.00 CONSTIPATION, UNSPECIFIED 01/25/2010 CHANTELLE AMADOR APRN 724.2 LUMBAGO 01/25/2010 LINDY GALINDO APRN N 110.4 DERMATOPHYTOSIS, OF FOOT 01/25/2010 LINDY GALINDO APRN 564.00 CONSTIPATION, UNSPECIFIED 01/25/2010 LINDY GALINDO APRN N 724.2 LUMBAGO 01/25/2010 CHANTELLE AMADOR APRN 110.4 DERMATOPHYTOSIS, OF FOOT 01/25/2010 CHANTELLE AMADOR APRN 564.00 CONSTIPATION, UNSPECIFIED 01/25/2010 CHANTELLE AMADOR APRN 724.2 LUMBAGO 01/25/2010 WHITE DDS, KURT J 11 0.4 DERMATOPHYTOSIS, OF FOOT 01/25/2010 WHITE DDS, KURT J 564.00 CONSTIPATION, UNSPECIFIED 01/25/2010 WHITE DDS, KURT J 72 4.2 LUMBAGO 01/25/2010 WHITE DDS, KURT J 11 0.4 DERMATOPHYTOSIS, OF FOOT 01/25/2010 WHITE DDS, KURT J 564.00 CONSTIPATION, UNSPECIFIED 01/25/2010 WHITE DDS, KURT J 72 4.2 LUMBAGO 01/25/2010 ARNOLD CASHERO NUMEROLOGIST, LINDY N 110.4 DERMATOPHYTOSIS, OF FOOT 01/25/2010 ARNOLD CASHERO NUMEROLOGIST, LINDY N 564.00 CONSTIPATION, UNSPECIFIED 01/25/2010 ARNOLD CASHERO NUMEROLOGIST, LINDY N 724.2 LUMBAGO 01/25/2010 ARNOLD CASHERO NUMEROLOGIST, LINDY N 110.4 DERMATOPHYTOSIS, OF FOOT 01/25/2010 ARNODL CASHERO NUMEROLOGIST, LINDY N 564.00 CONSTIPATION, UNSPECIFIED 01/25/2010 ARNOLD CASHERO NUMEROLOGIST, LINDY N 724.2 LUMBAGO 01/25/2010 WHITE DDS, KURT J 11 0.4 DERMATOPHYTOSIS, OF FOOT 01/25/2010 WHITE DDS, KURT J 564.00 CONSTIPATION, UNSPECIFIED 01/25/2010 WHITE DDS, KURT J 72 4.2 LUMBAGO 01/25/2010 ARNOLD CASHERO NUMEROLOGIST, LINDY N 110.4 DERMATOPHYTOSIS, OF FOOT 01/25/2010 ARNOLD CASHERO NUMEROLOGIST, LINDY N 564.00 CONSTIPATION, UNSPECIFIED 01/25/2010 ARNOLD CASHERO NUMEROLOGIST, LINDY N 724.2 LUMBAGO 01/25/2010 WHITE DDS, KURT J 11 0.4 DERMATOPHYTOSIS, OF FOOT 01/25/2010 WHITE DDS, KURT J 564.00 CONSTIPATION, UNSPECIFIED 01/25/2010 WHITE DDS, KURT J 72 4.2 LUMBAGO 01/25/2010 KEV BEEN, VERONIQUE R 110.4 DERMATOPHYTOSIS, OF FOOT 01/25/2010 KEV BEEN, VERONIQUE R 564.00 CONSTIPATION, UNSPECIFIED 01/25/2010 KEV NUMEROLOGIST, VERONIQUE R 724.2 LUMBAGO 01/25/2010 WHITE DDS, KURT J 11 0.4 DERMATOPHYTOSIS, OF FOOT 01/25/2010 WHITE DDS, KURT J 564.00 CONSTIPATION, UNSPECIFIED 01/25/2010 WHITE DDS, KURT J 72 4.2 LUMBAGO 01/25/2010 ARNOLD CASHERO NUMEROLOGIST, LINDY N 110.4 DERMATOPHYTOSIS, OF FOOT 01/25/2010 ARNOLD CASHERO NUMEROLOGIST, LINDY N 564.00 CONSTIPATION, UNSPECIFIED 01/25/2010 ARNOLD CASHERO NUMEROLOGIST, LINDY N 724.2 LUMBAGO 01/25/2010 ARNOLD CASHERO NUMEROLOGIST, LINDY N 110.4 DERMATOPHYTOSIS, OF FOOT 01/25/2010 ARNOLD CASHERO NUMEROLOGIST, LINDY N 564.00 CONSTIPATION, UNSPECIFIED 01/25/2010 ARNOLD CASHERO NUMEROLOGIST, LINDY N 724.2 LUMBAGO 01/25/2010 SCHULTZ DO, CARON K 110.4 DERMATOPHYTOSIS, OF FOOT 01/25/2010 SCHULTZ DO, CARON K 564.00 CONSTIPATION, UNSPECIFIED 01/25/2010 SCHULTZ DO, CARON K 724.2 LUMBAGO 01/25/2010 MADL NUMEROLOGIST, PUNEET L 110 .4 DERMATOPHYTOSIS, OF FOOT 01/25/2010 MADL NUMEROLOGIST, PUNEET L 564 .00 CONSTIPATION, UNSPECIFIED 01/25/2010 MADL NUMEROLOGIST, PUNEET L 724 .2 LUMBAGO 03/10/2010 Ot 780.79 03/10/2010 Ot 786.05 03/10/2010 Ot 995.20 03/10/2010 Ot E939.0 03/10/2010 Ot E945.2 03/12/2010 ISIDRA TURNER APRNNDA S 381.81 EUSTACHIAN TUBE DYSFUNCTION 03/12/2010 ISIDRA TURNER APRNNDA S 477.0 ALLERGIC RHINITIS, DUE TO POLLEN 03/12/2010 JOHNNY CALDERON QUYEN S 530.81 ESOPHAGEAL REFLUX 03/12/2010 LIZETT TURNER APRNA S 381.81 EUSTACHIAN TUBE DYSFUNCTION 03/12/2010 QUYEN TURNER APRN S 477.0 ALLERGIC RHINITIS, DUE TO POLLEN 03/12/2010 LIZETT TURNER APRNA S 530.81 ESOPHAGEAL REFLUX 03/12/2010 PAUL MERLOS DO F 381 .81 EUSTACHIAN TUBE DYSFUNCTION 03/12/2010 PAUL MERLOS DO F 477 .0 ALLERGIC RHINITIS, DUE TO POLLEN 03/12/2010 PAUL MERLOS DO F 530 .81 ESOPHAGEAL REFLUX 03/12/2010 381.81 EUS TACHIAN TUBE DYSFUNCTION 03/12/2010 477.0 JEANNETTE RGIC RHINITIS, DUE TO POLLEN 03/12/2010 530.81 ESO PHAGEAL REFLUX 03/12/2010 PAUL MERLOS DO F 381 .81 EUSTACHIAN TUBE DYSFUNCTION 03/12/2010 PAUL MERLOS DO F 477 .0 ALLERGIC RHINITIS, DUE TO POLLEN 03/12/2010 PAUL MERLOS DO F 530 .81 ESOPHAGEAL REFLUX 03/12/2010 381.81 EUS TACHIAN TUBE DYSFUNCTION 03/12/2010 477.0 JEANNETTE RGIC RHINITIS, DUE TO POLLEN 03/12/2010 530.81 ESO PHAGEAL REFLUX 03/12/2010 381.81 EUS TACHIAN TUBE DYSFUNCTION 03/12/2010 477.0 JEANNETTE RGIC RHINITIS, DUE TO POLLEN 03/12/2010 530.81 ESO PHAGEAL REFLUX 03/12/2010 381.81 EUS TACHIAN TUBE DYSFUNCTION 03/12/2010 477.0 JEANNETTE RGIC RHINITIS, DUE TO POLLEN 03/12/2010 530.81 ESO PHAGEAL REFLUX 03/12/2010 381.81 EUS TACHIAN TUBE DYSFUNCTION 03/12/2010 477.0 JEANNETTE RGIC RHINITIS, DUE TO POLLEN 03/12/2010 530.81 ESO PHAGEAL REFLUX 03/12/2010 381.81 EUS TACHIAN TUBE DYSFUNCTION 03/12/2010 477.0 JEANNETTE RGIC RHINITIS, DUE TO POLLEN 03/12/2010 530.81 ESO PHAGEAL REFLUX 03/12/2010 381.81 EUS TACHIAN TUBE DYSFUNCTION 03/12/2010 477.0 JEANNETTE RGIC RHINITIS, DUE TO POLLEN 03/12/2010 530.81 ESO PHAGEAL REFLUX 03/12/2010 381.81 EUS TACHIAN TUBE DYSFUNCTION 03/12/2010 477.0 JEANNETTE RGIC RHINITIS, DUE TO POLLEN 03/12/2010 530.81 ESO PHAGEAL REFLUX 03/12/2010 381.81 EUS TACHIAN TUBE DYSFUNCTION 03/12/2010 477.0 JEANNETTE RGIC RHINITIS, DUE TO POLLEN 03/12/2010 530.81 ESO PHAGEAL REFLUX 03/12/2010 381.81 EUS TACHIAN TUBE DYSFUNCTION 03/12/2010 477.0 JEANNETTE RGIC RHINITIS, DUE TO POLLEN 03/12/2010 530.81 ESO PHAGEAL REFLUX 03/12/2010 381.81 EUS TACHIAN TUBE DYSFUNCTION 03/12/2010 477.0 JEANNETTE RGIC RHINITIS, DUE TO POLLEN 03/12/2010 530.81 ESO PHAGEAL REFLUX 03/12/2010 381.81 EUS TACHIAN TUBE DYSFUNCTION 03/12/2010 477.0 JEANNETTE RGIC RHINITIS, DUE TO POLLEN 03/12/2010 530.81 ESO PHAGEAL REFLUX 03/12/2010 CHANTELLE AMADOR APRN 381.81 EUSTACHIAN TUBE DYSFUNCTION 03/12/2010 CHANTELLE AMADOR APRN 477.0 ALLERGIC RHINITIS, DUE TO POLLEN 03/12/2010 CHANTELLE AMADOR APRN 530.81 ESOPHAGEAL REFLUX 03/12/2010 LINDY GALINDO APRN N 381.81 EUSTACHIAN TUBE DYSFUNCTION 03/12/2010 LINDY GALINDO APRN 477.0 ALLERGIC RHINITIS, DUE TO POLLEN 03/12/2010 LINDY GALINDO APRN N 530.81 ESOPHAGEAL REFLUX 03/12/2010 CHANTELLE AMADOR APRN 381.81 EUSTACHIAN TUBE DYSFUNCTION 03/12/2010 CHANTELLE AMADOR APRN 477.0 ALLERGIC RHINITIS, DUE TO POLLEN 03/12/2010 CHANTELLE AMADOR APRN 530.81 ESOPHAGEAL REFLUX 03/12/2010 KURT CARDONA DDS 381.81 EUSTACHIAN TUBE DYSFUNCTION 03/12/2010 KURT CARDONA DDS 47 7.0 ALLERGIC RHINITIS, DUE TO POLLEN 03/12/2010 KURT CARDONA DDS 530.81 ESOPHAGEAL REFLUX 03/12/2010 KURT CARDONA DDS 381.81 EUSTACHIAN TUBE DYSFUNCTION 03/12/2010 WHITE DDS, KURT J 47 7.0 ALLERGIC RHINITIS, DUE TO POLLEN 03/12/2010 WHITE DDS, KURT J 530.81 ESOPHAGEAL REFLUX 03/12/2010 ARNOLD CASHERO NUMEROLOGIST, LINDY N 381.81 EUSTACHIAN TUBE DYSFUNCTION 03/12/2010 ARNOLD CASHERO NUMEROLOGIST, LINDY N 477.0 ALLERGIC RHINITIS, DUE TO POLLEN 03/12/2010 ARNOLD CASHERO NUMEROLOGIST, LINDY N 530.81 ESOPHAGEAL REFLUX 03/12/2010 ARNOLD CASHERO NUMEROLOGIST, LINDY N 381.81 EUSTACHIAN TUBE DYSFUNCTION 03/12/2010 ARNOLD CASHERO NUMEROLOGIST, LINDY N 477.0 ALLERGIC RHINITIS, DUE TO POLLEN 03/12/2010 ARNOLD CASHERO NUMEROLOGIST, LINDY N 530.81 ESOPHAGEAL REFLUX 03/12/2010 WHITE DDS, KURT J 381.81 EUSTACHIAN TUBE DYSFUNCTION 03/12/2010 WHITE DDS, KURT J 47 7.0 ALLERGIC RHINITIS, DUE TO POLLEN 03/12/2010 WHITE DDS, KURT J 530.81 ESOPHAGEAL REFLUX 03/12/2010 ARNOLD CASHERO NUMEROLOGIST, LINDY N 381.81 EUSTACHIAN TUBE DYSFUNCTION 03/12/2010 ARNOLD CASHERO NUMEROLOGIST, LINDY N 477.0 ALLERGIC RHINITIS, DUE TO POLLEN 03/12/2010 ARNOLD CASHERO NUMEROLOGIST, LINDY N 530.81 ESOPHAGEAL REFLUX 03/12/2010 WHITE DDS, KURT J 381.81 EUSTACHIAN TUBE DYSFUNCTION 03/12/2010 WHITE DDS, KURT J 47 7.0 ALLERGIC RHINITIS, DUE TO POLLEN 03/12/2010 WHITE DDS, KURT J 530.81 ESOPHAGEAL REFLUX 03/12/2010 KEV NUMEROLOGIST, VERONIQUE R 381.81 EUSTACHIAN TUBE DYSFUNCTION 03/12/2010 KEV NUMEROLOGIST, VERONIQUE R 477.0 ALLERGIC RHINITIS, DUE TO POLLEN 03/12/2010 KEV NUMEROLOGIST, VERONIQUE R 530.81 ESOPHAGEAL REFLUX 03/12/2010 WHITE DDS, KURT J 381.81 EUSTACHIAN TUBE DYSFUNCTION 03/12/2010 WHITE DDS, KURT J 47 7.0 ALLERGIC RHINITIS, DUE TO POLLEN 03/12/2010 WHITE DDS, KURT J 530.81 ESOPHAGEAL REFLUX 03/12/2010 ARNOLD CASHERO NUMEROLOGIST, LINDY N 381.81 EUSTACHIAN TUBE DYSFUNCTION 03/12/2010 ARNOLD CASHERO NUMEROLOGIST, LINDY N 477.0 ALLERGIC RHINITIS, DUE TO POLLEN 03/12/2010 ARNOLD CASHERO NUMEROLOGIST, LINDY N 530.81 ESOPHAGEAL REFLUX 03/12/2010 ARNOLD CASHERO NUMEROLOGIST, LINDY N 381.81 EUSTACHIAN TUBE DYSFUNCTION 03/12/2010 ARNOLD CASHERO NUMEROLOGIST, LINDY N 477.0 ALLERGIC RHINITIS, DUE TO POLLEN 03/12/2010 ARNOLD CASHERO NUMEROLOGIST, LINDY N 530.81 ESOPHAGEAL REFLUX 03/12/2010 SCHULTZ DO, CARON K 381.81 EUSTACHIAN TUBE DYSFUNCTION 03/12/2010 SCHULTZ DO, CARON K 477.0 ALLERGIC RHINITIS, DUE TO POLLEN 03/12/2010 SCHULTZ DO, CARON K 530.81 ESOPHAGEAL REFLUX 03/12/2010 MADL NUMEROLOGIST, PUNEET L 381 .81 EUSTACHIAN TUBE DYSFUNCTION 03/12/2010 MADL NUMEROLOGIST, PUNEET L 477 .0 ALLERGIC RHINITIS, DUE TO POLLEN 03/12/2010 MADL NUMEROLOGIST, PUNEET L 530 .81 ESOPHAGEAL REFLUX 05/07/2010 JOHNNY NUMEROLOGIST, QUYEN S 112.1 CANDIDIASIS OF VULVA AND VAGINA 05/07/2010 JOHNNY NUMEROLOGIST, QUYEN S 461.0 ACUTE MAXILLARY SINUSITIS 05/07/2010 JOHNNY NUMEROLOGIST, QUYEN S 112.1 CANDIDIASIS OF VULVA AND VAGINA 05/07/2010 JOHNNY NUMEROLOGIST, QUYEN S 461.0 ACUTE MAXILLARY SINUSITIS 05/07/2010 EDNA MERLOS DOEN F 112 .1 CANDIDIASIS OF VULVA AND VAGINA 05/07/2010 EDNA MERLOS DOEN F 461 .0 ACUTE MAXILLARY SINUSITIS 05/07/2010 112.1 CAND IDIASIS OF VULVA AND VAGINA 05/07/2010 461.0 ACUT E MAXILLARY SINUSITIS 05/07/2010 EDNA MERLOS DOEN F 112 .1 CANDIDIASIS OF VULVA AND VAGINA 05/07/2010 EDNA MERLOS DOEN F 461 .0 ACUTE MAXILLARY SINUSITIS 05/07/2010 112.1 CAND IDIASIS OF VULVA AND VAGINA 05/07/2010 461.0 ACUT E MAXILLARY SINUSITIS 05/07/2010 112.1 CAND IDIASIS OF VULVA AND VAGINA 05/07/2010 461.0 ACUT E MAXILLARY SINUSITIS 05/07/2010 112.1 CAND IDIASIS OF VULVA AND VAGINA 05/07/2010 461.0 ACUT E MAXILLARY SINUSITIS 05/07/2010 112.1 CAND IDIASIS OF VULVA AND VAGINA 05/07/2010 461.0 ACUT E MAXILLARY SINUSITIS 05/07/2010 112.1 CAND IDIASIS OF VULVA AND VAGINA 05/07/2010 461.0 ACUT E MAXILLARY SINUSITIS 05/07/2010 112.1 CAND IDIASIS OF VULVA AND VAGINA 05/07/2010 461.0 ACUT E MAXILLARY SINUSITIS 05/07/2010 112.1 CAND IDIASIS OF VULVA AND VAGINA 05/07/2010 461.0 ACUT E MAXILLARY SINUSITIS 05/07/2010 112.1 CAND IDIASIS OF VULVA AND VAGINA 05/07/2010 461.0 ACUT E MAXILLARY SINUSITIS 05/07/2010 112.1 CAND IDIASIS OF VULVA AND VAGINA 05/07/2010 461.0 ACUT E MAXILLARY SINUSITIS 05/07/2010 112.1 CAND IDIASIS OF VULVA AND VAGINA 05/07/2010 461.0 ACUT E MAXILLARY SINUSITIS 05/07/2010 112.1 CAND IDIASIS OF VULVA AND VAGINA 05/07/2010 461.0 ACUT E MAXILLARY SINUSITIS 05/07/2010 CHANTELLE AMADOR APRN 112.1 CANDIDIASIS OF VULVA AND VAGINA 05/07/2010 CHANTELLE AMADOR APRN 461.0 ACUTE MAXILLARY SINUSITIS 05/07/2010 LINDY GALINDO APRN N 112.1 CANDIDIASIS OF VULVA AND VAGINA 05/07/2010 LINDY GALINDO APRN 461.0 ACUTE MAXILLARY SINUSITIS 05/07/2010 CHANTELLE AMADOR APRN 112.1 CANDIDIASIS OF VULVA AND VAGINA 05/07/2010 CHANTELLE AMADOR APRN 461.0 ACUTE MAXILLARY SINUSITIS 05/07/2010 KURT CARDONA DDS J 11 2.1 CANDIDIASIS OF VULVA AND VAGINA 05/07/2010 KURT CARDONA DDS J 46 1.0 ACUTE MAXILLARY SINUSITIS 05/07/2010 KURT CARDONA DDS 11 2.1 CANDIDIASIS OF VULVA AND VAGINA 05/07/2010 WHITE DDS, KURT J 46 1.0 ACUTE MAXILLARY SINUSITIS 05/07/2010 ARNOLD CASHERO NUMEROLOGIST, LINDY N 112.1 CANDIDIASIS OF VULVA AND VAGINA 05/07/2010 ARNOLD CASHERO NUMEROLOGIST, LINDY N 461.0 ACUTE MAXILLARY SINUSITIS 05/07/2010 ARNOLD CASHERO NUMEROLOGIST, LINDY N 112.1 CANDIDIASIS OF VULVA AND VAGINA 05/07/2010 ARNOLD CASHERO NUMEROLOGIST, LINDY N 461.0 ACUTE MAXILLARY SINUSITIS 05/07/2010 WHITE DDS, KURT J 11 2.1 CANDIDIASIS OF VULVA AND VAGINA 05/07/2010 WHITE DDS, KURT J 46 1.0 ACUTE MAXILLARY SINUSITIS 05/07/2010 ARNOLD CASHERO NUMEROLOGIST, LINDY N 112.1 CANDIDIASIS OF VULVA AND VAGINA 05/07/2010 ARNOLD CASHERO NUMEROLOGIST, LINDY N 461.0 ACUTE MAXILLARY SINUSITIS 05/07/2010 WHITE DDS, KURT J 11 2.1 CANDIDIASIS OF VULVA AND VAGINA 05/07/2010 WHITE DDS, KURT J 46 1.0 ACUTE MAXILLARY SINUSITIS 05/07/2010 KEV NUMEROLOGIST, VERONIQUE R 112.1 CANDIDIASIS OF VULVA AND VAGINA 05/07/2010 KEV NUMEROLOGIST, VERONIQUE R 461.0 ACUTE MAXILLARY SINUSITIS 05/07/2010 WHITE DDS, KURT J 11 2.1 CANDIDIASIS OF VULVA AND VAGINA 05/07/2010 WHITE DDS, KURT J 46 1.0 ACUTE MAXILLARY SINUSITIS 05/07/2010 ARNOLD CASHERO NUMEROLOGIST, LINDY N 112.1 CANDIDIASIS OF VULVA AND VAGINA 05/07/2010 ARNOLD CASHERO NUMEROLOGIST, LINDY N 461.0 ACUTE MAXILLARY SINUSITIS 05/07/2010 ARNOLD CASHERO NUMEROLOGIST, LINDY N 112.1 CANDIDIASIS OF VULVA AND VAGINA 05/07/2010 ARNOLD CASHERO NUMEROLOGIST, LINDY N 461.0 ACUTE MAXILLARY SINUSITIS 05/07/2010 SCHULTZ DO, CARON K 112.1 CANDIDIASIS OF VULVA AND VAGINA 05/07/2010 SCHULTZ DO, CARON K 461.0 ACUTE MAXILLARY SINUSITIS 05/07/2010 MADL NUMEROLOGIST, PUNEET L 112 .1 CANDIDIASIS OF VULVA AND VAGINA 05/07/2010 MADL NUMEROLOGIST, PUNEET L 461 .0 ACUTE MAXILLARY SINUSITIS 05/28/2010 Ot 466.0 05/28/2010 Ot 780.60 06/26/2010 Ot 295.90 06/26/2010 Ot V58.69 07/03/2010 QUYEN TURNER APRN S 278.02 OVERWEIGHT 07/03/2010 QUYEN TURNER APRN S 278.02 OVERWEIGHT 07/03/2010 PAUL MERLOS DO 278 .02 OVERWEIGHT 07/03/2010 278.02 OVE RWEIGHT 07/03/2010 PAUL MERLOS DO 278 .02 OVERWEIGHT 07/03/2010 278.02 OVE RWEIGHT 07/03/2010 278.02 OVE RWEIGHT 07/03/2010 278.02 OVE RWEIGHT 07/03/2010 278.02 OVE RWEIGHT 07/03/2010 278.02 OVE RWEIGHT 07/03/2010 278.02 OVE RWEIGHT 07/03/2010 278.02 OVE RWEIGHT 07/03/2010 278.02 OVE RWEIGHT 07/03/2010 278.02 OVE RWEIGHT 07/03/2010 278.02 OVE RWEIGHT 07/03/2010 278.02 OVE RWEIGHT 07/03/2010 CHANTELLE AMADOR APRN 278.02 OVERWEIGHT 07/03/2010 LINDY GALINDO APRN N 278.02 OVERWEIGHT 07/03/2010 CHANTELLE AMADOR APRN 278.02 OVERWEIGHT 07/03/2010 WHITE DDS, KURT J 278.02 OVERWEIGHT 07/03/2010 WHITE DDS, KURT J 278.02 OVERWEIGHT 07/03/2010 LINDY GALINDO APRN N 278.02 OVERWEIGHT 07/03/2010 LINDY GALINDO APRN N 278.02 OVERWEIGHT 07/03/2010 WHITE DDS, KURT J 278.02 OVERWEIGHT 07/03/2010 LINDY GALINDO APRN N 278.02 OVERWEIGHT 07/03/2010 WHITE DDS, KURT J 278.02 OVERWEIGHT 07/03/2010 VERONIQUE ANGULO APRN 278.02 OVERWEIGHT 07/03/2010 WHITE DDS, KURT J 278.02 OVERWEIGHT 07/03/2010 HE GALINDO APRNCY N 278.02 OVERWEIGHT 07/03/2010 HE GALINDO APRNCY N 278.02 OVERWEIGHT 07/03/2010 CARON SCHULTZ DO 278.02 OVERWEIGHT 07/03/2010 PUNEET NIELSON APRN 278 .02 OVERWEIGHT 07/06/2010 Ot 465.9 07/06/2010 Ot 786.2 07/08/2010 Ot 466.0 07/08/2010 Ot 786.05 07/10/2010 Ot 292.85 07/10/2010 Ot 300.00 07/10/2010 Ot E932.0 07/16/2010 QUYEN TURNER APRN S 465.9 UPPER RESPIRATORY INFECTION 07/16/2010 QUYEN TURNER APRN S 465.9 UPPER RESPIRATORY INFECTION 07/16/2010 PAUL MERLOS DO 465 .9 UPPER RESPIRATORY INFECTION 07/16/2010 465.9 UPPE R RESPIRATORY INFECTION 07/16/2010 PAUL MERLOS DO 465 .9 UPPER RESPIRATORY INFECTION 07/16/2010 465.9 UPPE R RESPIRATORY INFECTION 07/16/2010 465.9 UPPE R RESPIRATORY INFECTION 07/16/2010 465.9 UPPE R RESPIRATORY INFECTION 07/16/2010 465.9 UPPE R RESPIRATORY INFECTION 07/16/2010 465.9 UPPE R RESPIRATORY INFECTION 07/16/2010 465.9 UPPE R RESPIRATORY INFECTION 07/16/2010 465.9 UPPE R RESPIRATORY INFECTION 07/16/2010 465.9 UPPE R RESPIRATORY INFECTION 07/16/2010 465.9 UPPE R RESPIRATORY INFECTION 07/16/2010 465.9 UPPE R RESPIRATORY INFECTION 07/16/2010 465.9 UPPE R RESPIRATORY INFECTION 07/16/2010 CHANTELLE AMADOR APRN 465.9 UPPER RESPIRATORY INFECTION 07/16/2010 LINDY GALINDO APRN N 465.9 UPPER RESPIRATORY INFECTION 07/16/2010 CHANTELLE AMADOR APRN 465.9 UPPER RESPIRATORY INFECTION 07/16/2010 KURT ACRDONA DDS J 46 5.9 UPPER RESPIRATORY INFECTION 07/16/2010 WHITE KURT PERALTA J 46 5.9 UPPER RESPIRATORY INFECTION 07/16/2010 LINDY GALINDO APRN N 465.9 UPPER RESPIRATORY INFECTION 07/16/2010 ARNOLD CASHERO NUMEROLOGIST, LINDY N 465.9 UPPER RESPIRATORY INFECTION 07/16/2010 WHITE DDS, KURT J 46 5.9 UPPER RESPIRATORY INFECTION 07/16/2010 CATALINA CHUN NUMEROLOGIST, LINDY N 465.9 UPPER RESPIRATORY INFECTION 07/16/2010 WHITE DDS, KURT J 46 5.9 UPPER RESPIRATORY INFECTION 07/16/2010 KEV NUMEROLOGIST VERONIQUE R 465.9 UPPER RESPIRATORY INFECTION 07/16/2010 WHITE DDS, KURT J 46 5.9 UPPER RESPIRATORY INFECTION 07/16/2010 ARNOLD ANGELIKAERO NUMEROLOGIST, LINDY N 465.9 UPPER RESPIRATORY INFECTION 07/16/2010 ARNOLD CASHERO NUMEROLOGIST, LINDY N 465.9 UPPER RESPIRATORY INFECTION 07/16/2010 SCHULTZ DO, CARON K 465.9 UPPER RESPIRATORY INFECTION 07/16/2010 NISREEN NUMEROLOGIST, PUNEET L 465 .9 UPPER RESPIRATORY INFECTION 07/25/2010 LIZETT TURNER APRNA S 784.49 HOARSENESS 07/25/2010 LIZETT TURNER APRNA S 786.2 COUGH 07/25/2010 LIZETT TURNER APRNA S 784.49 HOARSENESS 07/25/2010 ISIDRA TURNER APRNNDA S 786.2 COUGH 07/25/2010 PAUL MERLOS DO F 784 .49 HOARSENESS 07/25/2010 PAUL MERLOS DO 786 .2 COUGH 07/25/2010 784.49 BRANDYN RSENESS 07/25/2010 786.2 COUGH 07/25/2010 PAUL MERLOS DO F 784 .49 HOARSENESS 07/25/2010 PAUL MERLOS DO 786 .2 COUGH 07/25/2010 784.49 BRANDYN RSENESS 07/25/2010 786.2 COUGH 07/25/2010 784.49 BRANDYN RSENESS 07/25/2010 786.2 COUGH 07/25/2010 784.49 BRANDYN RSENESS 07/25/2010 786.2 COUGH 07/25/2010 784.49 BRANDYN RSENESS 07/25/2010 786.2 COUGH 07/25/2010 784.49 BRANDYN RSENESS 07/25/2010 786.2 COUGH 07/25/2010 784.49 BRANDYN RSENESS 07/25/2010 786.2 COUGH 07/25/2010 784.49 BRANDYN RSENESS 07/25/2010 786.2 COUGH 07/25/2010 784.49 BRANDYN RSENESS 07/25/2010 786.2 COUGH 07/25/2010 784.49 BRANDYN RSENESS 07/25/2010 786.2 COUGH 07/25/2010 784.49 BRANDYN RSENESS 07/25/2010 786.2 COUGH 07/25/2010 784.49 BRANDYN RSENESS 07/25/2010 786.2 COUGH 07/25/2010 CHANTELLE AMADOR APRN 784.49 HOARSENESS 07/25/2010 CHANTELLE AMADOR APRN 786.2 COUGH 07/25/2010 LINDY GALINDO APRN N 784.49 HOARSENESS 07/25/2010 LINDY GALINDO APRN N 786.2 COUGH 07/25/2010 CHANTELLE AMADOR APRN 784.49 HOARSENESS 07/25/2010 CHANTELLE AMADOR APRN 786.2 COUGH 07/25/2010 WHITE DDS, KURT J 784.49 HOARSENESS 07/25/2010 WHITE DDS, KURT J 78 6.2 COUGH 07/25/2010 WHITE DDS, KURT J 784.49 HOARSENESS 07/25/2010 WHITE DDS, KURT J 78 6.2 COUGH 07/25/2010 LINDY GALINDO APRN N 784.49 HOARSENESS 07/25/2010 LINDY GALINDO APRN N 786.2 COUGH 07/25/2010 LINDY GALINDO APRN N 784.49 HOARSENESS 07/25/2010 HE GALINDO APRNCY N 786.2 COUGH 07/25/2010 WHITE DDS, KURT J 784.49 HOARSENESS 07/25/2010 WHITE DDS, KURT J 78 6.2 COUGH 07/25/2010 HE GALINDO APRNCY N 784.49 HOARSENESS 07/25/2010 HE GALINDO APRNCY N 786.2 COUGH 07/25/2010 WHITE DDS, KURT J 784.49 HOARSENESS 07/25/2010 WHITE DDS, KURT J 78 6.2 COUGH 07/25/2010 KEV NUMEROLOGIST, VERONIQUE R 784.49 HOARSENESS 07/25/2010 KEV NUMEROLOGIST, VERONIQUE R 786.2 COUGH 07/25/2010 WHITE DDS, KURT J 784.49 HOARSENESS 07/25/2010 WHITE DDS, KURT J 78 6.2 COUGH 07/25/2010 CATALINA CHUN NUMEROLOGIST, LINDY N 784.49 HOARSENESS 07/25/2010 CATALINA CHUN NUMEROLOGIST, LINDY N 786.2 COUGH 07/25/2010 CATALINA CHUN NUMEROLOGIST, LINDY N 784.49 HOARSENESS 07/25/2010 CATALINA CHUN NUMEROLOGIST, LINDY N 786.2 COUGH 07/25/2010 SCHULTZ DO, CARON K 784.49 HOARSENESS 07/25/2010 SCHULTZ DO, CARON K 786.2 COUGH 07/25/2010 MADL NUMEROLOGIST, PUNEET L 784 .49 HOARSENESS 07/25/2010 MADL NUMEROLOGIST, PUNEET L 786 .2 COUGH 08/02/2010 QUYEN TURNER APRN 462 ACUTE PHARYNGITIS 08/02/2010 QUYEN TURNER APRN S 462 ACUTE PHARYNGITIS 08/02/2010 PAUL MERLOS DO 462 ACUTE PHARYNGITIS 08/02/2010 462 ACUTE PHARYNGITIS 08/02/2010 PAUL MERLOS DO 462 ACUTE PHARYNGITIS 08/02/2010 462 ACUTE PHARYNGITIS 08/02/2010 462 ACUTE PHARYNGITIS 08/02/2010 462 ACUTE PHARYNGITIS 08/02/2010 462 ACUTE PHARYNGITIS 08/02/2010 462 ACUTE PHARYNGITIS 08/02/2010 462 ACUTE PHARYNGITIS 08/02/2010 462 ACUTE PHARYNGITIS 08/02/2010 462 ACUTE PHARYNGITIS 08/02/2010 462 ACUTE PHARYNGITIS 08/02/2010 462 ACUTE PHARYNGITIS 08/02/2010 462 ACUTE PHARYNGITIS 08/02/2010 CHANTELLE AMADOR APRN 462 ACUTE PHARYNGITIS 08/02/2010 HE GALINDO APRNCY N 462 ACUTE PHARYNGITIS 08/02/2010 CHANTELLE AMADOR APRN 462 ACUTE PHARYNGITIS 08/02/2010 WHITE DDS, KURT J 46 2 ACUTE PHARYNGITIS 08/02/2010 WHITE DDS, KURT J 46 2 ACUTE PHARYNGITIS 08/02/2010 ARNOLD CASHERO NUMEROLOGIST, LINDY N 462 ACUTE PHARYNGITIS 08/02/2010 ARNOLD CASHERO NUMEROLOGIST, LINDY N 462 ACUTE PHARYNGITIS 08/02/2010 WHITE DDS, KURT J 46 2 ACUTE PHARYNGITIS 08/02/2010 ARNOLD CASHERO NUMEROLOGIST, LINDY N 462 ACUTE PHARYNGITIS 08/02/2010 WHITE DDS, KURT J 46 2 ACUTE PHARYNGITIS 08/02/2010 VERONIQUE ANGULO APRN R 4 62 ACUTE PHARYNGITIS 08/02/2010 WHITE DDS, KURT J 46 2 ACUTE PHARYNGITIS 08/02/2010 ARNOLD CASHERO NUMEROLOGIST, LINDY N 462 ACUTE PHARYNGITIS 08/02/2010 ARNOLD ANGELIKAERO NUMEROLOGIST, LINDY N 462 ACUTE PHARYNGITIS 08/02/2010 ANTOINE AVERY CARON K 462 ACUTE PHARYNGITIS 08/02/2010 MADL YUMIKO PUNEET L 462 ACUTE PHARYNGITIS 09/05/2010 QUYEN TURNER APRN S 724.5 BACK PAIN, GENERAL 09/05/2010 QUYEN TURNER APRN S 780.50 sleep disturbances 09/05/2010 QUYEN TURNER APRN S 724.5 BACK PAIN, GENERAL 09/05/2010 QUYEN TURNER APRN S 780.50 sleep disturbances 09/05/2010 PAUL MERLOS DO 724 .5 BACK PAIN, GENERAL 09/05/2010 PAUL MERLOS DO 780 .50 sleep disturbances 09/05/2010 724.5 BACK PAIN, GENERAL 09/05/2010 780.50 sle ep disturbances 09/05/2010 PAUL MERLOS DO 724 .5 BACK PAIN, GENERAL 09/05/2010 PAUL MERLOS DO 780 .50 sleep disturbances 09/05/2010 724.5 BACK PAIN, GENERAL 09/05/2010 780.50 sle ep disturbances 09/05/2010 724.5 BACK PAIN, GENERAL 09/05/2010 780.50 sle ep disturbances 09/05/2010 724.5 BACK PAIN, GENERAL 09/05/2010 780.50 sle ep disturbances 09/05/2010 724.5 BACK PAIN, GENERAL 09/05/2010 780.50 sle ep disturbances 09/05/2010 724.5 BACK PAIN, GENERAL 09/05/2010 780.50 sle ep disturbances 09/05/2010 724.5 BACK PAIN, GENERAL 09/05/2010 780.50 sle ep disturbances 09/05/2010 724.5 BACK PAIN, GENERAL 09/05/2010 780.50 sle ep disturbances 09/05/2010 724.5 BACK PAIN, GENERAL 09/05/2010 780.50 sle ep disturbances 09/05/2010 724.5 BACK PAIN, GENERAL 09/05/2010 780.50 sle ep disturbances 09/05/2010 724.5 BACK PAIN, GENERAL 09/05/2010 780.50 sle ep disturbances 09/05/2010 724.5 BACK PAIN, GENERAL 09/05/2010 780.50 sle ep disturbances 09/05/2010 CHANTELLE AMADOR APRN 724.5 BACK PAIN, GENERAL 09/05/2010 CHANTELLE AMADOR APRN 780.50 sleep disturbances 09/05/2010 LINDY GALINDO APRN N 724.5 BACK PAIN, GENERAL 09/05/2010 LINDY GALINDO APRN N 780.50 sleep disturbances 09/05/2010 CHANTELLE AMADOR APRN 724.5 BACK PAIN, GENERAL 09/05/2010 CHANTELLE AMADOR APRN 780.50 sleep disturbances 09/05/2010 WHITE DDS, KURT J 72 4.5 BACK PAIN, GENERAL 09/05/2010 WHITE DDS, KURT J 780.50 sleep disturbances 09/05/2010 WHITE DDS, KURT J 72 4.5 BACK PAIN, GENERAL 09/05/2010 WHITE DDS, KURT J 780.50 sleep disturbances 09/05/2010 LINDY GALINDO APRN N 724.5 BACK PAIN, GENERAL 09/05/2010 LINDY GALINDO APRN N 780.50 sleep disturbances 09/05/2010 LINDY GALINDO APRN N 724.5 BACK PAIN, GENERAL 09/05/2010 ARNOLD CASHERO NUMEROLOGIST, LINDY N 780.50 sleep disturbances 09/05/2010 WHITE DDS, KURT J 72 4.5 BACK PAIN, GENERAL 09/05/2010 WHITE DDS, KURT J 780.50 sleep disturbances 09/05/2010 ARNOLD ADIEL NUMEROLOGIST, LINDY N 724.5 BACK PAIN, GENERAL 09/05/2010 ARNOLD ADIEL NUMEROLOGIST, LINDY N 780.50 sleep disturbances 09/05/2010 WHITE DDS, KURT J 72 4.5 BACK PAIN, GENERAL 09/05/2010 WHITE DDS, KURT J 780.50 sleep disturbances 09/05/2010 KEV NUMEROLOGIST, VERONIQUE R 724.5 BACK PAIN, GENERAL 09/05/2010 KEV NUMEROLOGIST, VERONIQUE R 780.50 sleep disturbances 09/05/2010 WHITE DDS, KURT J 72 4.5 BACK PAIN, GENERAL 09/05/2010 WHITE DDS, KURT J 780.50 sleep disturbances 09/05/2010 ARNOLD ADIEL NUMEROLOGIST, LINDY N 724.5 BACK PAIN, GENERAL 09/05/2010 CATALINA CHUN NUMEROLOGIST, LINDY N 780.50 sleep disturbances 09/05/2010 ARNOLD ANGELIKAERO NUMEROLOGIST, LINDY N 724.5 BACK PAIN, GENERAL 09/05/2010 ARNOLD ANGELIKAERO NUMEROLOGIST, LINDY N 780.50 sleep disturbances 09/05/2010 SCHULTZ DO, CARON K 724.5 BACK PAIN, GENERAL 09/05/2010 SCHULTZ DO, CARON K 780.50 sleep disturbances 09/05/2010 MADL NUMEROLOGIST, PUNEET L 724 .5 BACK PAIN, GENERAL 09/05/2010 MADL NUMEROLOGIST, PUNEET L 780 .50 sleep disturbances 09/27/2010 Ot 729.5 PAIN IN LIMB 09/27/2010 Ot 782.3 EDEMA 10/03/2010 QUYEN TURNER APRN S 295.70 SCHIZOAFFECTIVE DISORDER 10/03/2010 QUYEN TURNER APRN S 301.83 BORDERLINE PERSONALITY DISORDER 10/03/2010 QUYEN TURNER APRN S 295.70 SCHIZOAFFECTIVE DISORDER 10/03/2010 LIZETT TURNER APRNA S 301.83 BORDERLINE PERSONALITY DISORDER 10/03/2010 PAUL MERLOS DO 295 .70 SCHIZOAFFECTIVE DISORDER 10/03/2010 PAUL MERLOS DO 301 .83 BORDERLINE PERSONALITY DISORDER 10/03/2010 295.70 ORION IZOAFFECTIVE DISORDER 10/03/2010 301.83 BOR DERLINE PERSONALITY DISORDER 10/03/2010 PAUL MERLOS DO F 295 .70 SCHIZOAFFECTIVE DISORDER 10/03/2010 PAUL MERLOS DO 301 .83 BORDERLINE PERSONALITY DISORDER 10/03/2010 295.70 ORION IZOAFFECTIVE DISORDER 10/03/2010 301.83 BOR DERLINE PERSONALITY DISORDER 10/03/2010 295.70 ORION IZOAFFECTIVE DISORDER 10/03/2010 301.83 BOR DERLINE PERSONALITY DISORDER 10/03/2010 295.70 ORION IZOAFFECTIVE DISORDER 10/03/2010 301.83 BOR DERLINE PERSONALITY DISORDER 10/03/2010 295.70 ORION IZOAFFECTIVE DISORDER 10/03/2010 301.83 BOR DERLINE PERSONALITY DISORDER 10/03/2010 295.70 ORION IZOAFFECTIVE DISORDER 10/03/2010 301.83 BOR DERLINE PERSONALITY DISORDER 10/03/2010 295.70 ORION IZOAFFECTIVE DISORDER 10/03/2010 301.83 BOR DERLINE PERSONALITY DISORDER 10/03/2010 295.70 ORION IZOAFFECTIVE DISORDER 10/03/2010 301.83 BOR DERLINE PERSONALITY DISORDER 10/03/2010 295.70 ORION IZOAFFECTIVE DISORDER 10/03/2010 301.83 BOR DERLINE PERSONALITY DISORDER 10/03/2010 295.70 ORION IZOAFFECTIVE DISORDER 10/03/2010 301.83 BOR DERLINE PERSONALITY DISORDER 10/03/2010 295.70 ORION IZOAFFECTIVE DISORDER 10/03/2010 301.83 BOR DERLINE PERSONALITY DISORDER 10/03/2010 295.70 ORION IZOAFFECTIVE DISORDER 10/03/2010 301.83 BOR DERLINE PERSONALITY DISORDER 10/03/2010 CHANTELLE AMADOR APRN 295.70 SCHIZOAFFECTIVE DISORDER 10/03/2010 CHANTELLE AMADOR APRN 301.83 BORDERLINE PERSONALITY DISORDER 10/03/2010 LINDY GALINDO APRN 295.70 SCHIZOAFFECTIVE DISORDER 10/03/2010 LINDY GALINDO APRN 301.83 BORDERLINE PERSONALITY DISORDER 10/03/2010 CHANTELLE AMADOR APRN 295.70 SCHIZOAFFECTIVE DISORDER 10/03/2010 CHANTELLE AMADOR APRN 301.83 BORDERLINE PERSONALITY DISORDER 10/03/2010 WHITE DDS, KURT J 295.70 SCHIZOAFFECTIVE DISORDER 10/03/2010 WHITE DDS, KURT J 301.83 BORDERLINE PERSONALITY DISORDER 10/03/2010 WHITE DDS, KURT J 295.70 SCHIZOAFFECTIVE DISORDER 10/03/2010 WHITE DDS, KURT J 301.83 BORDERLINE PERSONALITY DISORDER 10/03/2010 ARNOLD CASHERO NUMEROLOGIST, LINDY N 295.70 SCHIZOAFFECTIVE DISORDER 10/03/2010 ARNOLD CASHERO NUMEROLOGIST, LINDY N 301.83 BORDERLINE PERSONALITY DISORDER 10/03/2010 ARNOLD CASHERO NUMEROLOGIST, LINDY N 295.70 SCHIZOAFFECTIVE DISORDER 10/03/2010 ARNOLD CASHERO NUMEROLOGIST, LINDY N 301.83 BORDERLINE PERSONALITY DISORDER 10/03/2010 WHITE DDS, KURT J 295.70 SCHIZOAFFECTIVE DISORDER 10/03/2010 WHITE DDS, KURT J 301.83 BORDERLINE PERSONALITY DISORDER 10/03/2010 ARNOLD CASHERO NUMEROLOGIST, LINDY N 295.70 SCHIZOAFFECTIVE DISORDER 10/03/2010 ARNOLD CASHERO NUMEROLOGIST, LINDY N 301.83 BORDERLINE PERSONALITY DISORDER 10/03/2010 WHITE DDS, KURT J 295.70 SCHIZOAFFECTIVE DISORDER 10/03/2010 WHITE DDS, KURT J 301.83 BORDERLINE PERSONALITY DISORDER 10/03/2010 KEV NUMEROLOGIST, VERONIQUE R 295.70 SCHIZOAFFECTIVE DISORDER 10/03/2010 KEV NUMEROLOGIST, VERONIQUE R 301.83 BORDERLINE PERSONALITY DISORDER 10/03/2010 WHITE DDS, KURT J 295.70 SCHIZOAFFECTIVE DISORDER 10/03/2010 WHITE DDS, KURT J 301.83 BORDERLINE PERSONALITY DISORDER 10/03/2010 ARNOLD CASHERO NUMEROLOGIST, LINDY N 295.70 SCHIZOAFFECTIVE DISORDER 10/03/2010 ARNOLD CASHERO NUMEROLOGIST, LNIDY N 301.83 BORDERLINE PERSONALITY DISORDER 10/03/2010 ARNOLD CASHERO NUMEROLOGIST, LINDY N 295.70 SCHIZOAFFECTIVE DISORDER 10/03/2010 ARNOLD CASHERO NUMEROLOGIST, LINDY N 301.83 BORDERLINE PERSONALITY DISORDER 10/03/2010 SCHULTZ DOBILLIEA K 295.70 SCHIZOAFFECTIVE DISORDER 10/03/2010 SCHULTZ CARON AVERY K 301.83 BORDERLINE PERSONALITY DISORDER 10/03/2010 MADL NUMEROLOGIST, PUNEET L 295 .70 SCHIZOAFFECTIVE DISORDER 10/03/2010 NISREEN NUMEROLOGISTLIMAPUNEET L 301 .83 BORDERLINE PERSONALITY DISORDER 10/10/2010 QUYEN TURNER APRN S 388.30 TINNITUS UNSPECIFIED 10/10/2010 QUYEN TURNER APRN S 784.0 HEADACHE 10/10/2010 LIZETT TURNER APRNA S 388.30 TINNITUS UNSPECIFIED 10/10/2010 LIZETT TURNER APRNA S 784.0 HEADACHE 10/10/2010 GAURANG AVERY PAUL F 388 .30 TINNITUS UNSPECIFIED 10/10/2010 PAUL MERLOS DO F 784 .0 HEADACHE 10/10/2010 388.30 TIN NITUS UNSPECIFIED 10/10/2010 784.0 HEADACHE 10/10/2010 PAUL MERLOS DO F 388 .30 TINNITUS UNSPECIFIED 10/10/2010 PAUL MERLOS DO F 784 .0 HEADACHE 10/10/2010 388.30 TIN NITUS UNSPECIFIED 10/10/2010 784.0 HEADACHE 10/10/2010 388.30 TIN NITUS UNSPECIFIED 10/10/2010 784.0 HEADACHE 10/10/2010 388.30 TIN NITUS UNSPECIFIED 10/10/2010 784.0 HEADACHE 10/10/2010 388.30 TIN NITUS UNSPECIFIED 10/10/2010 784.0 HEADACHE 10/10/2010 388.30 TIN NITUS UNSPECIFIED 10/10/2010 784.0 HEADACHE 10/10/2010 388.30 TIN NITUS UNSPECIFIED 10/10/2010 784.0 HEADACHE 10/10/2010 388.30 TIN NITUS UNSPECIFIED 10/10/2010 784.0 HEADACHE 10/10/2010 388.30 TIN NITUS UNSPECIFIED 10/10/2010 784.0 HEADACHE 10/10/2010 388.30 TIN NITUS UNSPECIFIED 10/10/2010 784.0 HEADACHE 10/10/2010 388.30 TIN NITUS UNSPECIFIED 10/10/2010 784.0 HEADACHE 10/10/2010 388.30 TIN NITUS UNSPECIFIED 10/10/2010 784.0 HEADACHE 10/10/2010 CHANTELLE AMADOR APRN 388.30 TINNITUS UNSPECIFIED 10/10/2010 CHANTELLE AMADOR APRN 784.0 HEADACHE 10/10/2010 ARNOLDYRN CHUN NUMEROLOGIST, LINDY N 388.30 TINNITUS UNSPECIFIED 10/10/2010 ARNOLD ADIEL NUMEROLOGIST, LINDY N 784.0 HEADACHE 10/10/2010 MARJORIE CALDERONCHANTELLE D 388.30 TINNITUS UNSPECIFIED 10/10/2010 MARJORIE CALDERONCHANTELLE D 784.0 HEADACHE 10/10/2010 WHITE DDS, KURT J 388.30 TINNITUS UNSPECIFIED 10/10/2010 WHITE DDS, KURT J 78 4.0 HEADACHE 10/10/2010 WHITE DDS, KURT J 388.30 TINNITUS UNSPECIFIED 10/10/2010 WHITE DDS, KURT J 78 4.0 HEADACHE 10/10/2010 ARNOLD ADIEL BEEN, LINDY N 388.30 TINNITUS UNSPECIFIED 10/10/2010 ARNOLD ADIEL NUMEROLOGIST, LINDY N 784.0 HEADACHE 10/10/2010 ARNOLD ADIEL NUMEROLOGIST, LINDY N 388.30 TINNITUS UNSPECIFIED 10/10/2010 ARNOLD ADIEL NUMEROLOGIST, LINDY N 784.0 HEADACHE 10/10/2010 WHITE DDS, KURT J 388.30 TINNITUS UNSPECIFIED 10/10/2010 WHITE DDS, KURT J 78 4.0 HEADACHE 10/10/2010 ARNOLD ADIEL NUMEROLOGIST, LINDY N 388.30 TINNITUS UNSPECIFIED 10/10/2010 ARNOLD CASHERO NUMEROLOGIST, LINDY N 784.0 HEADACHE 10/10/2010 WHITE DDS, KURT J 388.30 TINNITUS UNSPECIFIED 10/10/2010 WHITE DDS, KURT J 78 4.0 HEADACHE 10/10/2010 KEV NUMEROLOGIST, VERONIQUE R 388.30 TINNITUS UNSPECIFIED 10/10/2010 KEV NUMEROLOGIST, VERONIQUE R 784.0 HEADACHE 10/10/2010 WHITE DDS, KURT J 388.30 TINNITUS UNSPECIFIED 10/10/2010 WHITE DDS, KURT J 78 4.0 HEADACHE 10/10/2010 ARNOLD CASHERO NUMEROLOGIST, LINDY N 388.30 TINNITUS UNSPECIFIED 10/10/2010 ARNOLD CASHERO NUMEROLOGIST, LINDY N 784.0 HEADACHE 10/10/2010 ARNOLD CASHERO NUMEROLOGIST, LINDY N 388.30 TINNITUS UNSPECIFIED 10/10/2010 ARNOLD CASHERO NUMEROLOGIST, LINDY N 784.0 HEADACHE 10/10/2010 SCHULTZ DO, CARON K 388.30 TINNITUS UNSPECIFIED 10/10/2010 SCHULTZ DO, CARON K 784.0 HEADACHE 10/10/2010 MADL NUMEROLOGISTCHARLESA L 388 .30 TINNITUS UNSPECIFIED 10/10/2010 MADL NUMEROLOGIST, PUNEET L 784 .0 HEADACHE 10/23/2010 JOHNNY NUMEROLOGIST, QUYEN S 382.00 ACUTE SUPPURATIVE OTITIS MEDIA WITHOUT S PONTANEOUS RUPTURE OF EARDRUM 10/23/2010 JOHNNY NUMEROLOGIST, QUYEN S 473.9 CHRONIC SINUSITIS 10/23/2010 JOHNNY NUMEROLOGIST, QUYEN S 723.1 CERVICALGIA 10/23/2010 JOHNNY NUMEROLOGIST, QUYEN S 382.00 ACUTE SUPPURATIVE OTITIS MEDIA WITHOUT S PONTANEOUS RUPTURE OF EARDRUM 10/23/2010 JOHNNY NUMEROLOGIST, QUYEN S 473.9 CHRONIC SINUSITIS 10/23/2010 JOHNNY NUMEROLOGIST, QUYEN S 723.1 CERVICALGIA 10/23/2010 PAUL MERLOS DO F 382 .00 ACUTE SUPPURATIVE OTITIS MEDIA WITHOUT SPONTANEOUS RUPTURE OF EARDRUM 10/23/2010 PAUL MERLOS DO F 473 .9 CHRONIC SINUSITIS 10/23/2010 PAUL MERLOS DO F 723 .1 CERVICALGIA 10/23/2010 382.00 ACU TE SUPPURATIVE OTITIS MEDIA WITHOUT SPONTANEOUS RUPTURE OF EARDRUM 10/23/2010 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1 CERV ICALGIA 10/23/2010 382.00 ACU TE SUPPURATIVE OTITIS MEDIA WITHOUT SPONTANEOUS RUPTURE OF EARDRUM 10/23/2010 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 10/23/2010 723.1 CERV ICALGIA 10/23/2010 382.00 ACU TE SUPPURATIVE OTITIS MEDIA WITHOUT SPONTANEOUS RUPTURE OF EARDRUM 10/23/2010 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 10/23/2010 723.1 CERV ICALGIA 10/23/2010 382.00 ACU TE SUPPURATIVE OTITIS MEDIA WITHOUT SPONTANEOUS RUPTURE OF EARDRUM 10/23/2010 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 10/23/2010 723.1 CERV ICALGIA 10/23/2010 382.00 ACU TE SUPPURATIVE OTITIS MEDIA WITHOUT SPONTANEOUS RUPTURE OF EARDRUM 10/23/2010 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 10/23/2010 723.1 CERV ICALGIA 10/23/2010 382.00 ACU TE SUPPURATIVE OTITIS MEDIA WITHOUT SPONTANEOUS RUPTURE OF EARDRUM 10/23/2010 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 10/23/2010 723.1 CERV ICALGIA 10/23/2010 382.00 ACU TE SUPPURATIVE OTITIS MEDIA WITHOUT SPONTANEOUS RUPTURE OF EARDRUM 10/23/2010 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 10/23/2010 723.1 CERV ICALGIA 10/23/2010 382.00 ACU TE SUPPURATIVE OTITIS MEDIA WITHOUT SPONTANEOUS RUPTURE OF EARDRUM 10/23/2010 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 10/23/2010 723.1 CERV ICALGIA 10/23/2010 382.00 ACU TE SUPPURATIVE OTITIS MEDIA WITHOUT SPONTANEOUS RUPTURE OF EARDRUM 10/23/2010 473.9 CONTOUR BAND SAW OPERATOR VERTICAL JSESICA SINUSITIS 10/23/2010 723.1 CERV ICALGIA 10/23/2010 382.00 ACU TE SUPPURATIVE OTITIS MEDIA WITHOUT SPONTANEOUS RUPTURE OF EARDRUM 10/23/2010 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 10/23/2010 723.1 CERV ICALGIA 10/23/2010 CHANTELLE AMADOR APRN 382.00 ACUTE SUPPURATIVE OTITIS MEDIA WITHOUT S PONTANEOUS RUPTURE OF EARDRUM 10/23/2010 GARTON NUMEROLOGIST, CHANTELLE D 473.9 CHRONIC SINUSITIS 10/23/2010 CHANTELLE AMADOR APRN 723.1 CERVICALGIA 10/23/2010 ARNOLD ADIEL BEEN, LINDY N 382.00 ACUTE SUPPURATIVE OTITIS MEDIA WITHOUT S PONTANEOUS RUPTURE OF EARDRUM 10/23/2010 ARNOLD CASHERO NUMEROLOGIST, LINDY N 473.9 CHRONIC SINUSITIS 10/23/2010 ARNOLD ADIEL BEEN, LINDY N 723.1 CERVICALGIA 10/23/2010 CHANTELLE AMADOR APRN 382.00 ACUTE SUPPURATIVE OTITIS MEDIA WITHOUT S PONTANEOUS RUPTURE OF EARDRUM 10/23/2010 CHANTELLE AMADOR APRN D 473.9 CHRONIC SINUSITIS 10/23/2010 CHANTELLE AMADOR APRN 723.1 CERVICALGIA 10/23/2010 WHITE DDS, KURT J 382.00 ACUTE SUPPURATIVE OTITIS MEDIA WITHOUT SPONTANEOUS RUP TURE OF EARDRUM 10/23/2010 WHITE DDS, KURT J 47 3.9 CHRONIC SINUSITIS 10/23/2010 WHITE DDS, KURT J 72 3.1 CERVICALGIA 10/23/2010 WHITE DDS, KURT J 382.00 ACUTE SUPPURATIVE OTITIS MEDIA WITHOUT SPONTANEOUS RUP TURE OF EARDRUM 10/23/2010 WHITE DDS, KURT J 47 3.9 CHRONIC SINUSITIS 10/23/2010 WHITE DDS, KURT J 72 3.1 CERVICALGIA 10/23/2010 ARNOLD ANGELIKAERO NUMEROLOGIST, LINDY N 382.00 ACUTE SUPPURATIVE OTITIS MEDIA WITHOUT S PONTANEOUS RUPTURE OF EARDRUM 10/23/2010 ARNOLD ANGELIKAERO NUMEROLOGIST, LINDY N 473.9 CHRONIC SINUSITIS 10/23/2010 ARNOLD CASHERO NUMEROLOGIST, LINDY N 723.1 CERVICALGIA 10/23/2010 ARNOLD CASHERO NUMEROLOGIST, LINDY N 382.00 ACUTE SUPPURATIVE OTITIS MEDIA WITHOUT S PONTANEOUS RUPTURE OF EARDRUM 10/23/2010 ARNOLD CASHERO NUMEROLOGIST, LINDY N 473.9 CHRONIC SINUSITIS 10/23/2010 ARNOLD CASHERO NUMEROLOGIST, LINDY N 723.1 CERVICALGIA 10/23/2010 WHITE DDS, KURT J 382.00 ACUTE SUPPURATIVE OTITIS MEDIA WITHOUT SPONTANEOUS RUP TURE OF EARDRUM 10/23/2010 WHITE DDS, KURT J 47 3.9 CHRONIC SINUSITIS 10/23/2010 WHITE DDS, KURT J 72 3.1 CERVICALGIA 10/23/2010 ARNOLD CASHERO NUMEROLOGIST, LINDY N 382.00 ACUTE SUPPURATIVE OTITIS MEDIA WITHOUT S PONTANEOUS RUPTURE OF EARDRUM 10/23/2010 ARNOLD CASHERO NUMEROLOGIST, LINDY N 473.9 CHRONIC SINUSITIS 10/23/2010 ARNOLD CASHERO NUMEROLOGIST, LINDY N 723.1 CERVICALGIA 10/23/2010 WHITE DDS, KURT J 382.00 ACUTE SUPPURATIVE OTITIS MEDIA WITHOUT SPONTANEOUS RUP TURE OF EARDRUM 10/23/2010 WHITE DDS, KURT J 47 3.9 CHRONIC SINUSITIS 10/23/2010 WHITE DDS, KURT J 72 3.1 CERVICALGIA 10/23/2010 KEV NUMEROLOGIST, VERONIQUE R 382.00 ACUTE SUPPURATIVE OTITIS MEDIA WITHOUT S PONTANEOUS RUPTURE OF EARDRUM 10/23/2010 KEV NUMEROLOGIST, VERONIQUE R 473.9 CHRONIC SINUSITIS 10/23/2010 KEV NUMEROLOGIST, VERONIQUE R 723.1 CERVICALGIA 10/23/2010 WHITE DDS, KURT J 382.00 ACUTE SUPPURATIVE OTITIS MEDIA WITHOUT SPONTANEOUS RUP TURE OF EARDRUM 10/23/2010 WHITE DDS, KURT J 47 3.9 CHRONIC SINUSITIS 10/23/2010 WHITE DDS, KURT J 72 3.1 CERVICALGIA 10/23/2010 ARNOLD CASHERO NUMEROLOGIST, LINDY N 382.00 ACUTE SUPPURATIVE OTITIS MEDIA WITHOUT S PONTANEOUS RUPTURE OF EARDRUM 10/23/2010 ARNOLD CASHERO NUMEROLOGIST, LINDY N 473.9 CHRONIC SINUSITIS 10/23/2010 ARNOLD CASHERO NUMEROLOGIST, LINDY N 723.1 CERVICALGIA 10/23/2010 ARNOLD CASHERO NUMEROLOGIST, LINDY N 382.00 ACUTE SUPPURATIVE OTITIS MEDIA WITHOUT S PONTANEOUS RUPTURE OF EARDRUM 10/23/2010 ARNOLD CASHERO NUMEROLOGIST, LINDY N 473.9 CHRONIC SINUSITIS 10/23/2010 ARNOLD CASHERO NUMEROLOGIST, LINDY N 723.1 CERVICALGIA 10/23/2010 CARON SCHULTZ DO K 382.00 ACUTE SUPPURATIVE OTITIS MEDIA WITHOUT SPONTANEOUS RUPTURE OF EARDRUM 10/23/2010 SCHULTZ DO, CARON K 473.9 CHRONIC SINUSITIS 10/23/2010 SCHULTZ DO, CARON K 723.1 CERVICALGIA 10/23/2010 CHARLES NIELSON APRNA L 382 .00 ACUTE SUPPURATIVE OTITIS MEDIA WITHOUT SPONTANEOUS RUPTURE OF EARDRUM 10/23/2010 NISREEN CALDERON, PUNEET L 473 .9 CHRONIC SINUSITIS 10/23/2010 CHARLES NIELSON APRNA L 723 .1 CERVICALGIA 12/04/2010 QUYEN TURNER APRN S 789.00 ABDOMINAL PAIN UNSPECIFIED SITE 12/04/2010 LIZETT TURNER APRNA S 789.00 ABDOMINAL PAIN UNSPECIFIED SITE 12/04/2010 PAUL MERLOS DO 789 .00 ABDOMINAL PAIN UNSPECIFIED SITE 12/04/2010 789.00 ABD OMINAL PAIN UNSPECIFIED SITE 12/04/2010 PAUL MERLOS DO F 789 .00 ABDOMINAL PAIN UNSPECIFIED SITE 12/04/2010 789.00 ABD OMINAL PAIN UNSPECIFIED SITE 12/04/2010 789.00 ABD OMINAL PAIN UNSPECIFIED SITE 12/04/2010 789.00 ABD OMINAL PAIN UNSPECIFIED SITE 12/04/2010 789.00 ABD OMINAL PAIN UNSPECIFIED SITE 12/04/2010 789.00 ABD OMINAL PAIN UNSPECIFIED SITE 12/04/2010 789.00 ABD OMINAL PAIN UNSPECIFIED SITE 12/04/2010 789.00 ABD OMINAL PAIN UNSPECIFIED SITE 12/04/2010 789.00 ABD OMINAL PAIN UNSPECIFIED SITE 12/04/2010 789.00 ABD OMINAL PAIN UNSPECIFIED SITE 12/04/2010 789.00 ABD OMINAL PAIN UNSPECIFIED SITE 12/04/2010 789.00 ABD OMINAL PAIN UNSPECIFIED SITE 12/04/2010 CHANTELLE MAADOR APRN 789.00 ABDOMINAL PAIN UNSPECIFIED SITE 12/04/2010 LINDY GALINDO APRN 789.00 ABDOMINAL PAIN UNSPECIFIED SITE 12/04/2010 CHANTELLE AMADOR APRN 789.00 ABDOMINAL PAIN UNSPECIFIED SITE 12/04/2010 KURT CARDONA DDS 789.00 ABDOMINAL PAIN UNSPECIFIED SITE 12/04/2010 KURT CARDONA DDS 789.00 ABDOMINAL PAIN UNSPECIFIED SITE 12/04/2010 LINDY GALINDO APRN N 789.00 ABDOMINAL PAIN UNSPECIFIED SITE 12/04/2010 LINDY GALINDO APRN N 789.00 ABDOMINAL PAIN UNSPECIFIED SITE 12/04/2010 WHITE DDS, KURT J 789.00 ABDOMINAL PAIN UNSPECIFIED SITE 12/04/2010 LINDY GALINDO APRN N 789.00 ABDOMINAL PAIN UNSPECIFIED SITE 12/04/2010 WHITE DDS, KURT J 789.00 ABDOMINAL PAIN UNSPECIFIED SITE 12/04/2010 KEV YUMIKO VERONIQUE R 789.00 ABDOMINAL PAIN UNSPECIFIED SITE 12/04/2010 WHITE DDS, KURT J 789.00 ABDOMINAL PAIN UNSPECIFIED SITE 12/04/2010 LINDY GALINDO APRN N 789.00 ABDOMINAL PAIN UNSPECIFIED SITE 12/04/2010 LINDY GALINDO APRN N 789.00 ABDOMINAL PAIN UNSPECIFIED SITE 12/04/2010 CARON SCHULTZ DO K 789.00 ABDOMINAL PAIN UNSPECIFIED SITE 12/04/2010 MADPUNEET Bauman APRN L 789 .00 ABDOMINAL PAIN UNSPECIFIED SITE 12/18/2010 Ot 295.90 ORION IZOPHRENIA NOS-UNSPEC 12/18/2010 Ot 723.1 CERV ICALGIA 12/18/2010 Ot 724.2 LUMBAGO 12/18/2010 Ot V57.1 PHYS ICAL THERAPY NEC 01/04/2011 Ot 296.33 REC UR DEPR DISOR- SEVERE 01/04/2011 Ot V62.84 DORIAN CIDAL IDEATION 01/19/2011 QUYEN TURNER APRN 133.0 SCABIES 01/19/2011 QUYEN TURNER APRN 133.0 SCABIES 01/19/2011 PAUL MERLOS DO 133 .0 SCABIES 01/19/2011 133.0 SCABIES 01/19/2011 PAUL MERLOS DO 133 .0 SCABIES 01/19/2011 133.0 SCABIES 01/19/2011 133.0 SCABIES 01/19/2011 133.0 SCABIES 01/19/2011 133.0 SCABIES 01/19/2011 133.0 SCABIES 01/19/2011 133.0 SCABIES 01/19/2011 133.0 SCABIES 01/19/2011 133.0 SCABIES 01/19/2011 133.0 SCABIES 01/19/2011 133.0 SCABIES 01/19/2011 133.0 SCABIES 01/19/2011 CHANTELLE AMADOR APRN 133.0 SCABIES 01/19/2011 CATALINA CHUN YUMIKO, LINDY N 133.0 SCABIES 01/19/2011 CHANTELLE AMADOR APRN 133.0 SCABIES 01/19/2011 WHITE DDS, KURT J 13 3.0 SCABIES 01/19/2011 WHITE DDS, KURT J 13 3.0 SCABIES 01/19/2011 CATALINA CARNEYBARRY NUMEROLOGIST, LINDY N 133.0 SCABIES 01/19/2011 CATALINA CHUN APRTrey LINDY N 133.0 SCABIES 01/19/2011 WHITE DDS, KURT J 13 3.0 SCABIES 01/19/2011 ARNOLD ANGELIKABARRY NUMEROLOGIST, LINDY N 133.0 SCABIES 01/19/2011 WHITE DDS, KURT J 13 3.0 SCABIES 01/19/2011 VERONIQUE ANGULO APRN R 133.0 SCABIES 01/19/2011 WHITE DDS, KURT J 13 3.0 SCABIES 01/19/2011 CATALINA CHUN APRNHECY N 133.0 SCABIES 01/19/2011 CATALINA CHUN APRN, LINDY N 133.0 SCABIES 01/19/2011 SCHULTZ DO, CARON K 133.0 SCABIES 01/19/2011 PUNEET NIELSON APRN 133 .0 SCABIES 02/07/2011 Ot 881.02 OPE N WOUND OF WRIST 02/07/2011 Ot E000.8 OTH ER EXTERNAL CAUSE STATUS 02/07/2011 Ot E849.0 ACC IDENT IN HOME 02/07/2011 Ot E956 DORIAN/S ELF-INJ BY CUT INST 02/07/2011 Ot V06.1 [id number], COMBINED [ 02/20/2011 QUYEN TURNER APRN 008.8 INTESTINAL INFECTION DUE TO OTHER ORGANISM NOT ELSEWHE RE CLASSIFIED 02/20/2011 JOHNNY NUMEROLOGIST, QUYEN S 008.8 INTESTINAL INFECTION DUE TO OTHER ORGANISM NOT ELSEWHE RE CLASSIFIED 02/20/2011 PAUL MERLOS DO 008 .8 INTESTINAL INFECTION DUE TO OTHER ORGANISM NOT ELSEWHERE CLASSIFIED 02/20/2011 008.8 INTE STINAL INFECTION DUE TO OTHER ORGANISM NOT ELSEWHERE CLASSIFIED 02/20/2011 PAUL MERLOS DO F 008 .8 INTESTINAL INFECTION DUE TO OTHER ORGANISM NOT ELSEWHERE CLASSIFIED 02/20/2011 008.8 INTE STINAL INFECTION DUE TO OTHER ORGANISM NOT ELSEWHERE CLASSIFIED 02/20/2011 008.8 INTE STINAL INFECTION DUE TO OTHER ORGANISM NOT ELSEWHERE CLASSIFIED 02/20/2011 008.8 INTE STINAL INFECTION DUE TO OTHER ORGANISM NOT ELSEWHERE CLASSIFIED 02/20/2011 008.8 INTE STINAL INFECTION DUE TO OTHER ORGANISM NOT ELSEWHERE CLASSIFIED 02/20/2011 008.8 INTE STINAL INFECTION DUE TO OTHER ORGANISM NOT ELSEWHERE CLASSIFIED 02/20/2011 008.8 INTE STINAL INFECTION DUE TO OTHER ORGANISM NOT ELSEWHERE CLASSIFIED 02/20/2011 008.8 INTE STINAL INFECTION DUE TO OTHER ORGANISM NOT ELSEWHERE CLASSIFIED 02/20/2011 008.8 INTE STINAL INFECTION DUE TO OTHER ORGANISM NOT ELSEWHERE CLASSIFIED 02/20/2011 008.8 INTE STINAL INFECTION DUE TO OTHER ORGANISM NOT ELSEWHERE CLASSIFIED 02/20/2011 008.8 INTE STINAL INFECTION DUE TO OTHER ORGANISM NOT ELSEWHERE CLASSIFIED 02/20/2011 008.8 INTE STINAL INFECTION DUE TO OTHER ORGANISM NOT ELSEWHERE CLASSIFIED 02/20/2011 CHANTELLE AMADOR APRN 008.8 INTESTINAL INFECTION DUE TO OTHER ORGANI SM NOT ELSEWHERE CLASSIFIED 02/20/2011 LINDY GALINDO APRN N 008.8 INTESTINAL INFECTION DUE TO OTHER ORGANI SM NOT ELSEWHERE CLASSIFIED 02/20/2011 CHANTELLE AMADOR APRN 008.8 INTESTINAL INFECTION DUE TO OTHER ORGANI SM NOT ELSEWHERE CLASSIFIED 02/20/2011 BRENDAN QUANS, KURT J 00 8.8 INTESTINAL INFECTION DUE TO OTHER ORGANISM NOT ELSEWHERE CLASSIFIED 02/20/2011 WHITE DDS, KURT J 00 8.8 INTESTINAL INFECTION DUE TO OTHER ORGANISM NOT ELSEWHERE CLASSIFIED 02/20/2011 LINDY GALINDO APRN N 008.8 INTESTINAL INFECTION DUE TO OTHER ORGANI SM NOT ELSEWHERE CLASSIFIED 02/20/2011 LINDY GALINDO APRN N 008.8 INTESTINAL INFECTION DUE TO OTHER ORGANI SM NOT ELSEWHERE CLASSIFIED 02/20/2011 BRENDAN QUANS, KURT J 00 8.8 INTESTINAL INFECTION DUE TO OTHER ORGANISM NOT ELSEWHERE CLASSIFIED 02/20/2011 ARNOLD ANGELIKABARRY CALDERON LINDY N 008.8 INTESTINAL INFECTION DUE TO OTHER ORGANI SM NOT ELSEWHERE CLASSIFIED 02/20/2011 WHITE DDS, KURT J 00 8.8 INTESTINAL INFECTION DUE TO OTHER ORGANISM NOT ELSEWHERE CLASSIFIED 02/20/2011 KEV NUMEROLOGISTVERONIQUE Yang R 008.8 INTESTINAL INFECTION DUE TO OTHER ORGANISM NOT ELSEWHE RE CLASSIFIED 02/20/2011 WHITE DDS, KURT J 00 8.8 INTESTINAL INFECTION DUE TO OTHER ORGANISM NOT ELSEWHERE CLASSIFIED 02/20/2011 ARNOLD ANGELIKABARRY CALDERON LINDY N 008.8 INTESTINAL INFECTION DUE TO OTHER ORGANI SM NOT ELSEWHERE CLASSIFIED 02/20/2011 ARNOLDYRN CARNEYLINDY REDDY APRN N 008.8 INTESTINAL INFECTION DUE TO OTHER ORGANI SM NOT ELSEWHERE CLASSIFIED 02/20/2011 CARON SCHULTZ DO K 008.8 INTESTINAL INFECTION DUE TO OTHER ORGANISM NOT ELSEWHERE CLASSIFIED 02/20/2011 PUNEET NIELSON APRN 008 .8 INTESTINAL INFECTION DUE TO OTHER ORGANISM NOT ELSEWHERE CLASSIFIED 02/27/2011 QUYEN TURNER APRN S V58.69 MEDICATION HIGH RISK 02/27/2011 QUYEN TURNER APRN V58.69 MEDICATION HIGH RISK 02/27/2011 PAUL MERLOS DO V58 .69 MEDICATION HIGH RISK 02/27/2011 V58.69 MED ICATION HIGH RISK 02/27/2011 PAUL MERLOS DO V58 .69 MEDICATION HIGH RISK 02/27/2011 V58.69 MED ICATION HIGH RISK 02/27/2011 V58.69 MED ICATION HIGH RISK 02/27/2011 V58.69 MED ICATION HIGH RISK 02/27/2011 V58.69 MED ICATION HIGH RISK 02/27/2011 V58.69 MED ICATION HIGH RISK 02/27/2011 V58.69 MED ICATION HIGH RISK 02/27/2011 V58.69 MED ICATION HIGH RISK 02/27/2011 V58.69 MED ICATION HIGH RISK 02/27/2011 V58.69 MED ICATION HIGH RISK 02/27/2011 V58.69 MED ICATION HIGH RISK 02/27/2011 V58.69 MED ICATION HIGH RISK 02/27/2011 CHANTELLE AMADOR APRN V58.69 MEDICATION HIGH RISK 02/27/2011 ARNOLD CASHERO NUMEROLOGIST, LINDY N V58.69 MEDICATION HIGH RISK 02/27/2011 MARJORIE CALDERONELCHANTELLE D V58.69 MEDICATION HIGH RISK 02/27/2011 WHITE DDS, KURT J V58.69 MEDICATION HIGH RISK 02/27/2011 WHITE DDS, KURT J V58.69 MEDICATION HIGH RISK 02/27/2011 CATALINA CHUN NUMEROLOGIST, LINDY N V58.69 MEDICATION HIGH RISK 02/27/2011 CATALINA CHUN APRN, LINDY N V58.69 MEDICATION HIGH RISK 02/27/2011 WHITE DDS, KURT J V58.69 MEDICATION HIGH RISK 02/27/2011 CATALINA CHUN NUMEROLOGIST, LINDY N V58.69 MEDICATION HIGH RISK 02/27/2011 WHITE DDS, KURT J V58.69 MEDICATION HIGH RISK 02/27/2011 KEV NUMEROLOGIST VERONIQUE Buck V58.69 MEDICATION HIGH RISK 02/27/2011 WHITE DDS, KURT J V58.69 MEDICATION HIGH RISK 02/27/2011 CATALINA CHUN APRN, LINDY N V58.69 MEDICATION HIGH RISK 02/27/2011 CATALINA CHUN APRN, LINDY N V58.69 MEDICATION HIGH RISK 02/27/2011 CARON SCHULTZ DO K V58.69 MEDICATION HIGH RISK 02/27/2011 PUNEET NIELSON APRN V58 .69 MEDICATION HIGH RISK 03/14/2011 QUYEN TURNER APRN V41.0 vision problems 03/14/2011 QUYEN TURNER APRN V41.0 vision problems 03/14/2011 PAUL MERLOS DO V41 .0 vision problems 03/14/2011 V41.0 visi on problems 03/14/2011 PAUL MERLOS DO V41 .0 vision problems 03/14/2011 V41.0 visi on problems 03/14/2011 V41.0 visi on problems 03/14/2011 V41.0 visi on problems 03/14/2011 V41.0 visi on problems 03/14/2011 V41.0 visi on problems 03/14/2011 V41.0 visi on problems 03/14/2011 V41.0 visi on problems 03/14/2011 V41.0 visi on problems 03/14/2011 V41.0 visi on problems 03/14/2011 V41.0 visi on problems 03/14/2011 V41.0 visi on problems 03/14/2011 CASAORESTES BEECHANTELLE Yang V41.0 vision problems 03/14/2011 LINDY GALINDO APRN N V41.0 vision problems 03/14/2011 MARJORIE BEECHANTELLE Yang V41.0 vision problems 03/14/2011 WHITE DDS, KURT J V4 1.0 vision problems 03/14/2011 WHITE DDS, KURT J V4 1.0 vision problems 03/14/2011 HE GALINDO APRNCY N V41.0 vision problems 03/14/2011 HE GALINDO APRNCY N V41.0 vision problems 03/14/2011 WHITE DDS, KURT J V4 1.0 vision problems 03/14/2011 HE GALINDO APRNCY N V41.0 vision problems 03/14/2011 WHITE DDS, KURT J V4 1.0 vision problems 03/14/2011 KEV YUMIKO VERONIQUE R V41.0 vision problems 03/14/2011 WHITE DDS, KURT J V4 1.0 vision problems 03/14/2011 HE GALINDO APRNCY N V41.0 vision problems 03/14/2011 HE GALINDO APRNCY N V41.0 vision problems 03/14/2011 SCHULTZ DO, CARON K V41.0 vision problems 03/14/2011 MADPUNEET Bauman APRN L V41 .0 vision problems 03/30/2011 Ot 521.00 UNS PEC DENTAL CARIES 03/30/2011 Ot 525.9 DENT AL DISORDER NOS 04/09/2011 Ot 244.9 HYPO THYROIDISM NOS 04/09/2011 Ot 295.70 ORION IZOAFFECTIVE DISORDER, UNSPECIFIED 04/09/2011 Ot 305.1 TOBA LAWN SERVICE MANAGER USE DISORDER 04/09/2011 Ot 401.9 HYPE RTENSION NOS 04/09/2011 Ot 493.90 AST HMA, UNSPECIFIED 04/09/2011 Ot 530.81 ESO PHAGEAL REFLUX 04/09/2011 Ot 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 04/09/2011 Ot 965.00 POI SONING-OPIUM NOS 04/09/2011 Ot 965.09 POI SONING-OPIATES NEC 04/09/2011 Ot 965.61 POI S-PROPIONIC ACID DERIVATIVES 04/09/2011 Ot E980.0 UND ETERM POIS- ANALGESICS 04/15/2011 QUYEN TURNER APRN 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 04/15/2011 QUYEN TURNER APRN 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 04/15/2011 PAUL MERLOS DO 295 .20 CATATONIC SCHIZOPHRENIA 04/15/2011 295.20 CAT ATONIC SCHIZOPHRENIA 04/15/2011 PAUL MERLOS DO F 295 .20 CATATONIC SCHIZOPHRENIA 04/15/2011 295.20 CAT ATONIC SCHIZOPHRENIA 04/15/2011 295.20 CAT ATONIC SCHIZOPHRENIA 04/15/2011 295.20 CAT ATONIC SCHIZOPHRENIA 04/15/2011 295.20 CAT ATONIC SCHIZOPHRENIA 04/15/2011 295.20 CAT ATONIC SCHIZOPHRENIA 04/15/2011 295.20 CAT ATONIC SCHIZOPHRENIA 04/15/2011 295.20 CAT ATONIC SCHIZOPHRENIA 04/15/2011 295.20 CAT ATONIC SCHIZOPHRENIA 04/15/2011 295.20 CAT ATONIC SCHIZOPHRENIA 04/15/2011 295.20 CAT ATONIC SCHIZOPHRENIA 04/15/2011 295.20 CAT ATONIC SCHIZOPHRENIA 04/15/2011 CHANTELLE AMADOR APRN 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 04/15/2011 LINDY GALINDO APRN 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 04/15/2011 CHANTELLE AMADOR APRN 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 04/15/2011 WHITE DDS, KURT J 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 04/15/2011 WHITE DDS, KURT J 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 04/15/2011 LINDY GALINDO APRN N 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 04/15/2011 LINDY GALINDO APRN N 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 04/15/2011 WHITE DDS, KURT J 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 04/15/2011 LINDY GALINDO APRN N 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81 DELAYED POST-TRAUMATIC STRESS DISORDER 05/21/2011 PAUL MRELOS DO 309 .81 DELAYED POST-TRAUMATIC STRESS DISORDER 05/21/2011 309.81 DEL AYED POST- TRAUMATIC STRESS DISORDER 05/21/2011 PAUL MERLOS DO 309 .81 DELAYED POST-TRAUMATIC STRESS DISORDER 05/21/2011 309.81 DEL AYED POST- TRAUMATIC STRESS DISORDER 05/21/2011 309.81 DEL AYED POST- TRAUMATIC STRESS DISORDER 05/21/2011 309.81 DEL AYED POST- TRAUMATIC STRESS DISORDER 05/21/2011 309.81 DEL AYED POST- TRAUMATIC STRESS DISORDER 05/21/2011 309.81 DEL AYED POST- TRAUMATIC STRESS DISORDER 05/21/2011 309.81 DEL AYED POST- TRAUMATIC STRESS DISORDER 05/21/2011 309.81 DEL AYED POST- TRAUMATIC STRESS DISORDER 05/21/2011 309.81 DEL AYED POST- TRAUMATIC STRESS DISORDER 05/21/2011 309.81 DEL AYED POST- TRAUMATIC STRESS DISORDER 05/21/2011 309.81 DEL AYED POST- TRAUMATIC STRESS DISORDER 05/21/2011 309.81 DEL AYED POST- TRAUMATIC STRESS DISORDER 05/21/2011 CHANTELLE AMADOR APRN 309.81 DELAYED POST-TRAUMATIC STRESS DISORDER 05/21/2011 LINDY GALINDO APRN N 309.81 DELAYED POST-TRAUMATIC STRESS DISORDER 05/21/2011 CHANTELLE AMADOR APRN 309.81 DELAYED POST-TRAUMATIC STRESS DISORDER 05/21/2011 KURT CARDONA DDS 309.81 DELAYED POST-TRAUMATIC STRESS DISORDER 05/21/2011 WHITE DDS, KURT J 309.81 DELAYED POST-TRAUMATIC STRESS DISORDER 05/21/2011 HE GALINDO APRNCY N 309.81 DELAYED POST-TRAUMATIC STRESS DISORDER 05/21/2011 HE GALINDO APRNCY N 309.81 DELAYED POST-TRAUMATIC STRESS DISORDER 05/21/2011 WHITE DDS, KURT J 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 DELAYED POST-TRAUMATIC STRESS DISORDER 05/21/2011 HE GALINDO APRNCY N 309.81 DELAYED POST-TRAUMATIC STRESS DISORDER 05/21/2011 WHITE DDS, KURT J 309.81 DELAYED POST-TRAUMATIC STRESS DISORDER 05/21/2011 KEV NUMEROLOGIST, VERONIQUE R 309.81 DELAYED POST-TRAUMATIC STRESS DISORDER 05/21/2011 WHITE DDS, KURT J 309.81 DELAYED POST-TRAUMATIC STRESS DISORDER 05/21/2011 HE GALINDO APRNCY N 309.81 DELAYED POST-TRAUMATIC STRESS DISORDER 05/21/2011 HE GALINDO APRNCY N 309.81 DELAYED POST-TRAUMATIC STRESS DISORDER 05/21/2011 CARON SCHULTZ DO K 309.81 DELAYED POST-TRAUMATIC STRESS DISORDER 05/21/2011 MADLIMA Bauman APRNWNYA L 309 .81 DELAYED POST-TRAUMATIC STRESS DISORDER 07/08/2011 LIZETT TURNER APRNA S 461.9 SINUSITIS ACUTE 07/08/2011 ISIDRA TURNER APRNNDA S 466.0 BRONCHITIS, ACUTE 07/08/2011 ISIDRA TURNER APRNNDA S V65.42 COUNSELING - SMOKING CESSATION 07/08/2011 ISIDRA TURNER APRNNDA S 461.9 SINUSITIS ACUTE 07/08/2011 LIZETT TURNER APRNA S 466.0 BRONCHITIS, ACUTE 07/08/2011 ISIDRA TURNER APRNNDA S V65.42 COUNSELING - SMOKING CESSATION 07/08/2011 PAUL MERLOS DO 461 .9 SINUSITIS ACUTE 07/08/2011 PAUL MERLOS DO 466 .0 BRONCHITIS, ACUTE 07/08/2011 PAUL MERLOS DO V65 .42 COUNSELING - SMOKING CESSATION 07/08/2011 461.9 SINU SITIS ACUTE 07/08/2011 466.0 BRON CHITIS, ACUTE 07/08/2011 V65.42 COU NSELING - SMOKING CESSATION 07/08/2011 WERDER DO, PAUL F 461 .9 SINUSITIS ACUTE 07/08/2011 WERSALINA DO, PAUL F 466 .0 BRONCHITIS, ACUTE 07/08/2011 JONAHDER DO, PAUL F V65 .42 COUNSELING - SMOKING CESSATION 07/08/2011 461.9 SINU SITIS ACUTE 07/08/2011 466.0 BRON CHITIS, ACUTE 07/08/2011 V65.42 COU NSELING - SMOKING CESSATION 07/08/2011 461.9 SINU SITIS ACUTE 07/08/2011 466.0 BRON CHITIS, ACUTE 07/08/2011 V65.42 COU NSELING - SMOKING CESSATION 07/08/2011 461.9 SINU SITIS ACUTE 07/08/2011 466.0 BRON CHITIS, ACUTE 07/08/2011 V65.42 COU NSELING - SMOKING CESSATION 07/08/2011 461.9 SINU SITIS ACUTE 07/08/2011 466.0 BRON CHITIS, ACUTE 07/08/2011 V65.42 COU NSELING - SMOKING CESSATION 07/08/2011 461.9 SINU SITIS ACUTE 07/08/2011 466.0 BRON CHITIS, ACUTE 07/08/2011 V65.42 COU NSELING - SMOKING CESSATION 07/08/2011 461.9 SINU SITIS ACUTE 07/08/2011 466.0 BRON CHITIS, ACUTE 07/08/2011 V65.42 COU NSELING - SMOKING CESSATION 07/08/2011 461.9 SINU SITIS ACUTE 07/08/2011 466.0 BRON CHITIS, ACUTE 07/08/2011 V65.42 COU NSELING - SMOKING CESSATION 07/08/2011 461.9 SINU SITIS ACUTE 07/08/2011 466.0 BRON CHITIS, ACUTE 07/08/2011 V65.42 COU NSELING - SMOKING CESSATION 07/08/2011 461.9 SINU SITIS ACUTE 07/08/2011 466.0 BRON CHITIS, ACUTE 07/08/2011 V65.42 COU NSELING - SMOKING CESSATION 07/08/2011 461.9 SINU SITIS ACUTE 07/08/2011 466.0 BRON CHITIS, ACUTE 07/08/2011 V65.42 COU NSELING - SMOKING CESSATION 07/08/2011 461.9 SINU SITIS ACUTE 07/08/2011 466.0 BRON CHITIS, ACUTE 07/08/2011 V65.42 COU NSELING - SMOKING CESSATION 07/08/2011 MARJORIE BEECHANTELLE Yang 461.9 SINUSITIS ACUTE 07/08/2011 MARJORIE BEECHANTELLE Yang D 466.0 BRONCHITIS, ACUTE 07/08/2011 MARJORIE BEECHANTELLE Yang D V65.42 COUNSELING - SMOKING CESSATION 07/08/2011 HE GALINDO APRNCY N 461.9 SINUSITIS ACUTE 07/08/2011 HE GALINDO APRNCY N 466.0 BRONCHITIS, ACUTE 07/08/2011 HE GALINDO APRNCY N V65.42 COUNSELING - SMOKING CESSATION 07/08/2011 MARJORIE BEECHANTELLE Yang 461.9 SINUSITIS ACUTE 07/08/2011 MARJORIE BEECHANTELLE Yang D 466.0 BRONCHITIS, ACUTE 07/08/2011 MARJORIE BEECHANTELLE Yang V65.42 COUNSELING - SMOKING CESSATION 07/08/2011 WHITE DDS, KURT J 46 1.9 SINUSITIS ACUTE 07/08/2011 WHITE DDS, KURT J 46 6.0 BRONCHITIS, ACUTE 07/08/2011 WHITE DDS, KURT J V65.42 COUNSELING - SMOKING CESSATION 07/08/2011 WHITE DDS, KURT J 46 1.9 SINUSITIS ACUTE 07/08/2011 WHITE DDS, KURT J 46 6.0 BRONCHITIS, ACUTE 07/08/2011 WHITE DDSALLION J V65.42 COUNSELING - SMOKING CESSATION 07/08/2011 HE GALINDO APRNCY N 461.9 SINUSITIS ACUTE 07/08/2011 HE GALINDO APRNCY N 466.0 BRONCHITIS, ACUTE 07/08/2011 HE GALINDO APRNCY N V65.42 COUNSELING - SMOKING CESSATION 07/08/2011 CATALINA CHUN APRN, LINDY N 461.9 SINUSITIS ACUTE 07/08/2011 HE GALINDO APRNCY N 466.0 BRONCHITIS, ACUTE 07/08/2011 CATALINA CHUN APRN, LINDY N V65.42 COUNSELING - SMOKING CESSATION 07/08/2011 WHITE DDS, KURT J 46 1.9 SINUSITIS ACUTE 07/08/2011 WHITE DDSALLION J 46 6.0 BRONCHITIS, ACUTE 07/08/2011 WHITE DDSALLION J V65.42 COUNSELING - SMOKING CESSATION 07/08/2011 CATALINA CHUN APRN, LINDY N 461.9 SINUSITIS ACUTE 07/08/2011 CATALINA CHUN APRN, LINDY N 466.0 BRONCHITIS, ACUTE 07/08/2011 ARNOLD ADIEL BEEN, LINDY N V65.42 COUNSELING - SMOKING CESSATION 07/08/2011 WHITE DDS, KURT J 46 1.9 SINUSITIS ACUTE 07/08/2011 WHITE DDS, KURT J 46 6.0 BRONCHITIS, ACUTE 07/08/2011 WHITE DDS, KURT J V65.42 COUNSELING - SMOKING CESSATION 07/08/2011 KEV NUMEROLOGIST, VERONIQUE R 461.9 SINUSITIS ACUTE 07/08/2011 KEV NUMEROLOGIST, VERONIQUE R 466.0 BRONCHITIS, ACUTE 07/08/2011 KEV NUMEROLOGIST, VERONIQUE R V65.42 COUNSELING - SMOKING CESSATION 07/08/2011 WHITE DDS, KURT J 46 1.9 SINUSITIS ACUTE 07/08/2011 WHITE DDS, KURT J 46 6.0 BRONCHITIS, ACUTE 07/08/2011 WHITE DDS, KURT J V65.42 COUNSELING - SMOKING CESSATION 07/08/2011 CATALINA CHUN APRN, LINDY N 461.9 SINUSITIS ACUTE 07/08/2011 CATALINA CHUN APRN, LINDY N 466.0 BRONCHITIS, ACUTE 07/08/2011 ARNOLD ADIEL BEEN, LINDY N V65.42 COUNSELING - SMOKING CESSATION 07/08/2011 CATALINA CHUN APRN, LINDY N 461.9 SINUSITIS ACUTE 07/08/2011 CATALINA CHUN APRN, LINDY N 466.0 BRONCHITIS, ACUTE 07/08/2011 CATALINA CHUN APRN, LINDY N V65.42 COUNSELING - SMOKING CESSATION 07/08/2011 SCHULTZ DO, CARON K 461.9 SINUSITIS ACUTE 07/08/2011 SCHULTZ DO, CARON K 466.0 BRONCHITIS, ACUTE 07/08/2011 SCHULTZ DO, CARON K V65.42 COUNSELING - SMOKING CESSATION 07/08/2011 MADL NUMEROLOGIST, PUNEET L 461 .9 SINUSITIS ACUTE 07/08/2011 MADL NUMEROLOGIST, PUNEET L 466 .0 BRONCHITIS, ACUTE 07/08/2011 MADL NUMEROLOGIST, PUNEET L V65 .42 COUNSELING - SMOKING CESSATION 08/09/2011 Ot 295.90 ORION IZOPHRENIA NOS-UNSPEC 08/09/2011 Ot 965.8 POIS - ANALGES/ANTIPYR NEC 08/09/2011 Ot E950.0 DORIAN CIDE- ANALGESICS 09/10/2011 QUYEN TURNER APRN 296.89 BIPOLAR II DISORDER 09/10/2011 QUYEN TURNER APRN 296.89 BIPOLAR II DISORDER 09/10/2011 PAUL MERLOS DO 296 .89 BIPOLAR II DISORDER 09/10/2011 296.89 BIP OLAR II DISORDER 09/10/2011 PAUL MERLOS DO 296 .89 BIPOLAR II DISORDER 09/10/2011 296.89 BIP OLAR II DISORDER 09/10/2011 296.89 BIP OLAR II DISORDER 09/10/2011 296.89 BIP OLAR II DISORDER 09/10/2011 296.89 BIP OLAR II DISORDER 09/10/2011 296.89 BIP OLAR II DISORDER 09/10/2011 296.89 BIP OLAR II DISORDER 09/10/2011 296.89 BIP OLAR II DISORDER 09/10/2011 296.89 BIP OLAR II DISORDER 09/10/2011 296.89 BIP OLAR II DISORDER 09/10/2011 296.89 BIP OLAR II DISORDER 09/10/2011 296.89 BIP OLAR II DISORDER 09/10/2011 CHANTELLE AMADOR APRN 296.89 BIPOLAR II DISORDER 09/10/2011 LINDY GALINDO APRN N 296.89 BIPOLAR II DISORDER 09/10/2011 CHANTELLE AMADOR APRN 296.89 BIPOLAR II DISORDER 09/10/2011 KURT CARDONA DDS 296.89 BIPOLAR II DISORDER 09/10/2011 KURT CARDONA DDS 296.89 BIPOLAR II DISORDER 09/10/2011 LINDY GALINDO APRN N 296.89 BIPOLAR II DISORDER 09/10/2011 LINDY GALINDO APRN N 296.89 BIPOLAR II DISORDER 09/10/2011 KURT CARDONA DDS 296.89 BIPOLAR II DISORDER 09/10/2011 LINDY GALINDO APRN N 296.89 BIPOLAR II DISORDER 09/10/2011 KURT CARDONA DDS 296.89 BIPOLAR II DISORDER 09/10/2011 VERONIQUE ANGULO APRN 296.89 BIPOLAR II DISORDER 09/10/2011 KURT CARDONA DDS 296.89 BIPOLAR II DISORDER 09/10/2011 LINDY GALINDO APRN N 296.89 BIPOLAR II DISORDER 09/10/2011 HE GALINDO APRNCY N 296.89 BIPOLAR II DISORDER 09/10/2011 CARON SCHULTZ DO 296.89 BIPOLAR II DISORDER 09/10/2011 NISREEN BEENPUNEET L 296 .89 BIPOLAR II DISORDER 11/13/2011 ISIDRA TURNER APRNNDA S 296.33 MAJOR DEPRESSION RECURRENT SEVERE 11/13/2011 ISIDRA TURNER APRNNDA S 296.33 MAJOR DEPRESSION RECURRENT SEVERE 11/13/2011 PAUL MERLOS DO 296 .33 MAJOR DEPRESSION RECURRENT SEVERE 11/13/2011 296.33 ADRI OR DEPRESSION RECURRENT SEVERE 11/13/2011 PAUL MERLOS DO F 296 .33 MAJOR DEPRESSION RECURRENT SEVERE 11/13/2011 296.33 ADRI OR DEPRESSION RECURRENT SEVERE 11/13/2011 296.33 ADRI OR DEPRESSION RECURRENT SEVERE 11/13/2011 296.33 ADRI OR DEPRESSION RECURRENT SEVERE 11/13/2011 296.33 ADRI OR DEPRESSION RECURRENT SEVERE 11/13/2011 296.33 ADRI OR DEPRESSION RECURRENT SEVERE 11/13/2011 296.33 ADRI OR DEPRESSION RECURRENT SEVERE 11/13/2011 296.33 ADRI OR DEPRESSION RECURRENT SEVERE 11/13/2011 296.33 ADRI OR DEPRESSION RECURRENT SEVERE 11/13/2011 296.33 ADRI OR DEPRESSION RECURRENT SEVERE 11/13/2011 296.33 ADRI OR DEPRESSION RECURRENT SEVERE 11/13/2011 296.33 ADRI OR DEPRESSION RECURRENT SEVERE 11/13/2011 CHANTELLE AMADOR APRN 296.33 MAJOR DEPRESSION RECURRENT SEVERE 11/13/2011 LINDY GALINDO APRN N 296.33 MAJOR DEPRESSION RECURRENT SEVERE 11/13/2011 CHANTELLE AMADOR APRN 296.33 MAJOR DEPRESSION RECURRENT SEVERE 11/13/2011 KURT CARDONA DDS 296.33 MAJOR DEPRESSION RECURRENT SEVERE 11/13/2011 KURT CARDONA DDS 296.33 MAJOR DEPRESSION RECURRENT SEVERE 11/13/2011 LINDY GALINDO APRN N 296.33 MAJOR DEPRESSION RECURRENT SEVERE 11/13/2011 LINDY GALINDO APRN N 296.33 MAJOR DEPRESSION RECURRENT SEVERE 11/13/2011 KURT CARDONA DDS 296.33 MAJOR DEPRESSION RECURRENT SEVERE 11/13/2011 LINDY GALINDO APRN N 296.33 MAJOR DEPRESSION RECURRENT SEVERE 11/13/2011 KURT CARDONA DDS 296.33 MAJOR DEPRESSION RECURRENT SEVERE 11/13/2011 VERONIQUE ANGULO APRN 296.33 MAJOR DEPRESSION RECURRENT SEVERE 11/13/2011 KURT CARDONA DDS 296.33 MAJOR DEPRESSION RECURRENT SEVERE 11/13/2011 LINDY GALINDO APRN N 296.33 MAJOR DEPRESSION RECURRENT SEVERE 11/13/2011 LINDY GALINDO APRN N 296.33 MAJOR DEPRESSION RECURRENT SEVERE 11/13/2011 ANTOINE AVERY CARON K 296.33 MAJOR DEPRESSION RECURRENT SEVERE 11/13/2011 MADPUNEET Bauman APRN L 296 .33 MAJOR DEPRESSION RECURRENT SEVERE 02/25/2012 QUYEN TURNER APRN S 728.71 PLANTAR FASCIITIS 02/25/2012 QUYEN TURNER APRN S 728.71 PLANTAR FASCIITIS 02/25/2012 PAUL MERLOS DO 728 .71 PLANTAR FASCIITIS 02/25/2012 728.71 AMANDA NTAR FASCIITIS 02/25/2012 PAUL MERLOS DO 728 .71 PLANTAR FASCIITIS 02/25/2012 728.71 AMANDA NTAR FASCIITIS 02/25/2012 728.71 AMANDA NTAR FASCIITIS 02/25/2012 728.71 AMANDA NTAR FASCIITIS 02/25/2012 728.71 AMANDA NTAR FASCIITIS 02/25/2012 728.71 AMANDA NTAR FASCIITIS 02/25/2012 728.71 AMANDA NTAR FASCIITIS 02/25/2012 728.71 AMANDA NTAR FASCIITIS 02/25/2012 728.71 AMANDA NTAR FASCIITIS 02/25/2012 728.71 AMANDA NTAR FASCIITIS 02/25/2012 728.71 AMANDA NTAR FASCIITIS 02/25/2012 728.71 AMANDA NTAR FASCIITIS 02/25/2012 CHANTELLE AMADOR APRN 728.71 PLANTAR FASCIITIS 02/25/2012 LINDY GALINDO APRN N 728.71 PLANTAR FASCIITIS 02/25/2012 CHANTELLE AMADOR APRN 728.71 PLANTAR FASCIITIS 02/25/2012 KURT CARDONA DDS 728.71 PLANTAR FASCIITIS 02/25/2012 WHITE DDS, KURT J 728.71 PLANTAR FASCIITIS 02/25/2012 CATALINA CARNEYBARRY NUMEROLOGIST, LINDY N 728.71 PLANTAR FASCIITIS 02/25/2012 CATALINA CHUN APRN, LINDY N 728.71 PLANTAR FASCIITIS 02/25/2012 WHITE DDS, KURT J 728.71 PLANTAR FASCIITIS 02/25/2012 CATALINA CHUN NUMEROLOGIST, LINDY N 728.71 PLANTAR FASCIITIS 02/25/2012 WHITE DDS, KURT J 728.71 PLANTAR FASCIITIS 02/25/2012 VERONIQUE ANGULO APRN R 728.71 PLANTAR FASCIITIS 02/25/2012 WHITE DDS, KURT J 728.71 PLANTAR FASCIITIS 02/25/2012 CATALINA CARNEYBARRY NUMEROLOGIST, LINDY N 728.71 PLANTAR FASCIITIS 02/25/2012 CATALINA CHUN APRN, LINDY N 728.71 PLANTAR FASCIITIS 02/25/2012 CARON SCHULTZ DO K 728.71 PLANTAR FASCIITIS 02/25/2012 PUNEET NIELSON APRN L 728 .71 PLANTAR FASCIITIS 04/29/2012 LIZETT TURNER APRNA S 296.90 MOOD DISORDER 04/29/2012 LIZETT TURNER APRNA S 298.9 P PSYCHOSIS NOS 04/29/2012 LIZETT TURNER APRNA S 296.90 MOOD DISORDER 04/29/2012 LIZETT TURNER APRNA S 298.9 P PSYCHOSIS NOS 04/29/2012 PAUL MERLOS DO F 296 .90 MOOD DISORDER 04/29/2012 PAUL MERLOS DO F 298 .9 P PSYCHOSIS NOS 04/29/2012 296.90 MOO D DISORDER 04/29/2012 298.9 P PS YCHOSIS NOS 04/29/2012 PAUL MERLOS DO F 296 .90 MOOD DISORDER 04/29/2012 PAUL MERLOS DO F 298 .9 P PSYCHOSIS NOS 04/29/2012 296.90 MOO D DISORDER 04/29/2012 298.9 P PS YCHOSIS NOS 04/29/2012 296.90 MOO D DISORDER 04/29/2012 298.9 P PS YCHOSIS NOS 04/29/2012 296.90 MOO D DISORDER 04/29/2012 298.9 P PS YCHOSIS NOS 04/29/2012 296.90 MOO D DISORDER 04/29/2012 298.9 P PS YCHOSIS NOS 04/29/2012 296.90 MOO D DISORDER 04/29/2012 298.9 P PS YCHOSIS NOS 04/29/2012 296.90 MOO D DISORDER 04/29/2012 298.9 P PS YCHOSIS NOS 04/29/2012 296.90 MOO D DISORDER 04/29/2012 298.9 P PS YCHOSIS NOS 04/29/2012 296.90 MOO D DISORDER 04/29/2012 298.9 P PS YCHOSIS NOS 04/29/2012 296.90 MOO D DISORDER 04/29/2012 298.9 P PS YCHOSIS NOS 04/29/2012 296.90 MOO D DISORDER 04/29/2012 298.9 P PS YCHOSIS NOS 04/29/2012 296.90 MOO D DISORDER 04/29/2012 298.9 P PS YCHOSIS NOS 04/29/2012 CHANTELLE AMADOR APRN 296.90 MOOD DISORDER 04/29/2012 CHANTELLE AMADOR APRN 298.9 P PSYCHOSIS NOS 04/29/2012 LINDY GALINDO APRN N 296.90 MOOD DISORDER 04/29/2012 LINDY GALINDO APRN N 298.9 P PSYCHOSIS NOS 04/29/2012 CHANTELLE AMADOR APRN D 296.90 MOOD DISORDER 04/29/2012 CHANTELLE AMADOR APRN 298.9 P PSYCHOSIS NOS 04/29/2012 WHITE DDS, KURT J 296.90 MOOD DISORDER 04/29/2012 WHITE DDS, KURT J 29 8.9 P PSYCHOSIS NOS 04/29/2012 WHITE DDS, KURT J 296.90 MOOD DISORDER 04/29/2012 WHITE DDS, KURT J 29 8.9 P PSYCHOSIS NOS 04/29/2012 LINDY GALINDO APRN N 296.90 MOOD DISORDER 04/29/2012 LINDY GALINDO APRN N 298.9 P PSYCHOSIS NOS 04/29/2012 LINDY GALINDO APRN N 296.90 MOOD DISORDER 04/29/2012 LINDY GALINDO APRN N 298.9 P PSYCHOSIS NOS 04/29/2012 WHITE DDS, KURT J 296.90 MOOD DISORDER 04/29/2012 WHITE DDS, KURT J 29 8.9 P PSYCHOSIS NOS 04/29/2012 ARNOLD CASHERO NUMEROLOGIST, LINDY N 296.90 MOOD DISORDER 04/29/2012 ARNLOD CASHERO NUMEROLOGIST, LINDY N 298.9 P PSYCHOSIS NOS 04/29/2012 WHITE DDS, KURT J 296.90 MOOD DISORDER 04/29/2012 WHITE DDS, KURT J 29 8.9 P PSYCHOSIS NOS 04/29/2012 KEV NUMEROLOGIST, VERONIQUE R 296.90 MOOD DISORDER 04/29/2012 KEV NUMEROLOGIST, VERONIQUE R 298.9 P PSYCHOSIS NOS 04/29/2012 WHITE DDS, KURT J 296.90 MOOD DISORDER 04/29/2012 WHITE DDS, KURT J 29 8.9 P PSYCHOSIS NOS 04/29/2012 ARNOLD CASHERO NUMEROLOGIST, LINDY N 296.90 MOOD DISORDER 04/29/2012 ARNOLD CASHERO NUMEROLOGIST, LINDY N 298.9 P PSYCHOSIS NOS 04/29/2012 ARNOLD CASHERO NUMEROLOGIST, LINDY N 296.90 MOOD DISORDER 04/29/2012 ARNOLD CASHERO NUMEROLOGIST, LINDY N 298.9 P PSYCHOSIS NOS 04/29/2012 SCHULTZ DO, CARON K 296.90 MOOD DISORDER 04/29/2012 SCHULTZ DO, CARON K 298.9 P PSYCHOSIS NOS 04/29/2012 MADL NUMEROLOGIST, PUNEET L 296 .90 MOOD DISORDER 04/29/2012 MADL NUMEROLOGIST, PUNEET L 298 .9 P PSYCHOSIS NOS 06/08/2012 LIZETT TURNER APRNA S 305.1 NONDEPENDENT TOBACCO USE DISORDER 06/08/2012 ISIDRA TURNER APRNNDA S V76.10 BREAST CANCER SCREENING 06/08/2012 ISIDRA TURNER APRNNDA S V76.2 CERVICAL CANCER SCREENING (PAP SMEAR) 06/08/2012 ISIDRA TURNER APRNNDA S 305.1 NONDEPENDENT TOBACCO USE DISORDER 06/08/2012 JOHNNY CALDERON QUYEN S V76.10 BREAST CANCER SCREENING 06/08/2012 JOHNNY CALDERON QUYEN S V76.2 CERVICAL CANCER SCREENING (PAP SMEAR) 06/08/2012 PAUL MERLOS DO 305 .1 NONDEPENDENT TOBACCO USE DISORDER 06/08/2012 PAUL MERLOS DO V76 .10 BREAST CANCER SCREENING 06/08/2012 PAUL MERLOS DO V76 .2 CERVICAL CANCER SCREENING (PAP SMEAR) 06/08/2012 305.1 NOND EPENDENT TOBACCO USE DISORDER 06/08/2012 V76.10 SIIDRA AST CANCER SCREENING 06/08/2012 V76.2 CERV ICAL CANCER SCREENING (PAP SMEAR) 06/08/2012 PAUL MERLOS DO [place] 305 .1 NONDEPENDENT TOBACCO USE DISORDER 06/08/2012 PAUL MERLOS DO V76 .10 BREAST CANCER SCREENING 06/08/2012 PAUL MERLOS DO V76 .2 CERVICAL CANCER SCREENING (PAP SMEAR) 06/08/2012 305.1 NOND EPENDENT TOBACCO USE DISORDER 06/08/2012 V76.10 ISIDRA AST CANCER SCREENING 06/08/2012 V76.2 CERV ICAL CANCER SCREENING (PAP SMEAR) 06/08/2012 305.1 NOND EPENDENT TOBACCO USE DISORDER 06/08/2012 V76.10 ISIDRA AST CANCER SCREENING 06/08/2012 V76.2 CERV ICAL CANCER SCREENING (PAP SMEAR) 06/08/2012 305.1 NOND EPENDENT TOBACCO USE DISORDER 06/08/2012 V76.10 ISIDRA AST CANCER SCREENING 06/08/2012 V76.2 CERV ICAL CANCER SCREENING (PAP SMEAR) 06/08/2012 305.1 NOND EPENDENT TOBACCO USE DISORDER 06/08/2012 V76.10 ISIDRA AST CANCER SCREENING 06/08/2012 V76.2 CERV ICAL CANCER SCREENING (PAP SMEAR) 06/08/2012 305.1 NOND EPENDENT TOBACCO USE DISORDER 06/08/2012 V76.10 ISIDRA AST CANCER SCREENING 06/08/2012 V76.2 CERV ICAL CANCER SCREENING (PAP SMEAR) 06/08/2012 305.1 NOND EPENDENT TOBACCO USE DISORDER 06/08/2012 V76.10 ISIDRA AST CANCER SCREENING 06/08/2012 V76.2 CERV ICAL CANCER SCREENING (PAP SMEAR) 06/08/2012 305.1 NOND EPENDENT TOBACCO USE DISORDER 06/08/2012 V76.10 ISIDRA AST CANCER SCREENING 06/08/2012 V76.2 CERV ICAL CANCER SCREENING (PAP SMEAR) 06/08/2012 305.1 NOND EPENDENT TOBACCO USE DISORDER 06/08/2012 V76.10 ISIDRA AST CANCER SCREENING 06/08/2012 V76.2 CERV ICAL CANCER SCREENING (PAP SMEAR) 06/08/2012 305.1 NOND EPENDENT TOBACCO USE DISORDER 06/08/2012 V76.10 ISIDRA AST CANCER SCREENING 06/08/2012 V76.2 CERV ICAL CANCER SCREENING (PAP SMEAR) 06/08/2012 305.1 NOND EPENDENT TOBACCO USE DISORDER 06/08/2012 V76.10 ISIDRA AST CANCER SCREENING 06/08/2012 V76.2 CERV ICAL CANCER SCREENING (PAP SMEAR) 06/08/2012 305.1 NOND EPENDENT TOBACCO USE DISORDER 06/08/2012 V76.10 ISIDRA AST CANCER SCREENING 06/08/2012 V76.2 CERV ICAL CANCER SCREENING (PAP SMEAR) 06/08/2012 CHANTELLE AMADOR APRN 305.1 NONDEPENDENT TOBACCO USE DISORDER 06/08/2012 CHANTELLE AMADOR APRN V76.10 BREAST CANCER SCREENING 06/08/2012 CHANTELLE AMADOR APRN V76.2 CERVICAL CANCER SCREENING (PAP SMEAR) 06/08/2012 LINDY GALINDO APRN 305.1 NONDEPENDENT TOBACCO USE DISORDER 06/08/2012 LINDY GALINDO APRN V76.10 BREAST CANCER SCREENING 06/08/2012 LINDY GALINDO APRN V76.2 CERVICAL CANCER SCREENING (PAP SMEAR) 06/08/2012 CHANTELLE AMADOR APRN 305.1 NONDEPENDENT TOBACCO USE DISORDER 06/08/2012 CHANTELLE AMADOR APRN V76.10 BREAST CANCER SCREENING 06/08/2012 CHANTELLE AMADOR APRN V76.2 CERVICAL CANCER SCREENING (PAP SMEAR) 06/08/2012 BRENDAN QUANS, KURT J 30 5.1 NONDEPENDENT TOBACCO USE DISORDER 06/08/2012 WHITE DDS, KURT J V76.10 BREAST CANCER SCREENING 06/08/2012 WHITE DDS, KURT J V7 6.2 CERVICAL CANCER SCREENING (PAP SMEAR) 06/08/2012 WHITE DDS, KURT J 30 5.1 NONDEPENDENT TOBACCO USE DISORDER 06/08/2012 WHITE DDS, KURT J V76.10 BREAST CANCER SCREENING 06/08/2012 WHITE DDS, KURT J V7 6.2 CERVICAL CANCER SCREENING (PAP SMEAR) 06/08/2012 LINDY GALINOD APRN N 305.1 NONDEPENDENT TOBACCO USE DISORDER 06/08/2012 LINDY GALINDO APRN N V76.10 BREAST CANCER SCREENING 06/08/2012 LINDY GALINDO APRN N V76.2 CERVICAL CANCER SCREENING (PAP SMEAR) 06/08/2012 LINDY GALINDO APRN N 305.1 NONDEPENDENT TOBACCO USE DISORDER 06/08/2012 LINDY GALINDO APRN N V76.10 BREAST CANCER SCREENING 06/08/2012 LINDY GALINDO APRN N V76.2 CERVICAL CANCER SCREENING (PAP SMEAR) 06/08/2012 WHITE DDS, KURT J 30 5.1 NONDEPENDENT TOBACCO USE DISORDER 06/08/2012 WHITE DDS, KURT J V76.10 BREAST CANCER SCREENING 06/08/2012 WHITE DDS, KURT J V7 6.2 CERVICAL CANCER SCREENING (PAP SMEAR) 06/08/2012 LINDY GALINDO APRN N 305.1 NONDEPENDENT TOBACCO USE DISORDER 06/08/2012 LINDY GALINDO APRN N V76.10 BREAST CANCER SCREENING 06/08/2012 LINDY GALINDO APRN N V76.2 CERVICAL CANCER SCREENING (PAP SMEAR) 06/08/2012 WHITE DDS, KURT J 30 5.1 NONDEPENDENT TOBACCO USE DISORDER 06/08/2012 WHITE DDS, KURT J V76.10 BREAST CANCER SCREENING 06/08/2012 WHITE DDS, KURT J V7 6.2 CERVICAL CANCER SCREENING (PAP SMEAR) 06/08/2012 KEV CALDERON VERONIQUE R 305.1 NONDEPENDENT TOBACCO USE DISORDER 06/08/2012 KEV CALDERON VERONIQUE R V76.10 BREAST CANCER SCREENING 06/08/2012 KEV CALDERON, VERONIQUE R V76.2 CERVICAL CANCER SCREENING (PAP SMEAR) 06/08/2012 WHITE DDS, KURT J 30 5.1 NONDEPENDENT TOBACCO USE DISORDER 06/08/2012 WHITE DDS, KURT J V76.10 BREAST CANCER SCREENING 06/08/2012 WHITE DDS, KURT J V7 6.2 CERVICAL CANCER SCREENING (PAP SMEAR) 06/08/2012 HE GALINDO APRNCY N 305.1 NONDEPENDENT TOBACCO USE DISORDER 06/08/2012 HE GALINDO APRNCY N V76.10 BREAST CANCER SCREENING 06/08/2012 CATALINA CARNEYBARRY NUMEROLOGIST, LINDY N V76.2 CERVICAL CANCER SCREENING (PAP SMEAR) 06/08/2012 ARNOLD ANGELIKABARRY NUMEROLOGIST, LINDY N 305.1 NONDEPENDENT TOBACCO USE DISORDER 06/08/2012 CATALINA CHUN APRTrey LINDY N V76.10 BREAST CANCER SCREENING 06/08/2012 CATALINA CHUN APRTrey LINDY N V76.2 CERVICAL CANCER SCREENING (PAP SMEAR) 06/08/2012 SCHULTZ DO CARON K 305.1 NONDEPENDENT TOBACCO USE DISORDER 06/08/2012 SCHULTZ DO CARON K V76.10 BREAST CANCER SCREENING 06/08/2012 SCHULTZ DO CARON K V76.2 CERVICAL CANCER SCREENING (PAP SMEAR) 06/08/2012 NISREEN CALDERON PUNEET L 305 .1 NONDEPENDENT TOBACCO USE DISORDER 06/08/2012 NISREEN BEETrey PUNEET L V76 .10 BREAST CANCER SCREENING 06/08/2012 NISREEN BEETrey PUNEET L V76 .2 CERVICAL CANCER SCREENING (PAP SMEAR) 06/24/2012 PAUL MERLOS DO V70 .0 EXAM - ROUTINE H&P 06/24/2012 V70.0 EXAM - ROUTINE H&P 06/24/2012 PAUL MERLOS DO V70 .0 EXAM - ROUTINE H&P 06/24/2012 V70.0 EXAM - ROUTINE H&P 06/24/2012 V70.0 EXAM - ROUTINE H&P 06/24/2012 V70.0 EXAM - ROUTINE H&P 06/24/2012 V70.0 EXAM - ROUTINE H&P 06/24/2012 V70.0 EXAM - ROUTINE H&P 06/24/2012 V70.0 EXAM - ROUTINE H&P 06/24/2012 V70.0 EXAM - ROUTINE H&P 06/24/2012 V70.0 EXAM - ROUTINE H&P 06/24/2012 V70.0 EXAM - ROUTINE H&P 06/24/2012 V70.0 EXAM - ROUTINE H&P 06/24/2012 V70.0 EXAM - ROUTINE H&P 06/24/2012 CHANTELLE AMADOR APRN V70.0 EXAM - ROUTINE H&P 06/24/2012 LINDY GALINDO APRN N V70.0 EXAM - ROUTINE H&P 06/24/2012 CHANTELLE AMADOR APRN V70.0 EXAM - ROUTINE H&P 06/24/2012 WHITE DDS, KURT J V7 0.0 EXAM - ROUTINE H&P 06/24/2012 WHITE DDS, KURT J V7 0.0 EXAM - ROUTINE H&P 06/24/2012 CATALINA CHUN NUMEROLOGIST, LINDY N V70.0 EXAM - ROUTINE H&P 06/24/2012 CATALINA CHUN NUMEROLOGIST, LINDY N V70.0 EXAM - ROUTINE H&P 06/24/2012 WHITE DDS, KURT J V7 0.0 EXAM - ROUTINE H&P 06/24/2012 CATALINA CHUN NUMEROLOGIST, LINDY N V70.0 EXAM - ROUTINE H&P 06/24/2012 WHITE DDS, KURT J V7 0.0 EXAM - ROUTINE H&P 06/24/2012 VERONIQUE ANGULO APRN V70.0 EXAM - ROUTINE H&P 06/24/2012 WHITE DDS, KURT J V7 0.0 EXAM - ROUTINE H&P 06/24/2012 CATALINA CHUN APRN, LINDY N V70.0 EXAM - ROUTINE H&P 06/24/2012 CATALINA CHUN APRN, LINDY N V70.0 EXAM - ROUTINE H&P 06/24/2012 CARON SCHULTZ DO V70.0 EXAM - ROUTINE H&P 06/24/2012 PUNEET NIELSON APRN V70 .0 EXAM - ROUTINE H&P 08/31/2012 307.47 SI DYSSOMNIA NOS 08/31/2012 PAUL MERLOS DO 307 .47 SI DYSSOMNIA NOS 08/31/2012 307.47 SI DYSSOMNIA NOS 08/31/2012 307.47 SI DYSSOMNIA NOS 08/31/2012 307.47 SI DYSSOMNIA NOS 08/31/2012 307.47 SI DYSSOMNIA NOS 08/31/2012 307.47 SI DYSSOMNIA NOS 08/31/2012 307.47 SI DYSSOMNIA NOS 08/31/2012 307.47 SI DYSSOMNIA NOS 08/31/2012 307.47 SI DYSSOMNIA NOS 08/31/2012 307.47 SI DYSSOMNIA NOS 08/31/2012 307.47 SI DYSSOMNIA NOS 08/31/2012 307.47 SI DYSSOMNIA NOS 08/31/2012 CHANTELLE AMADOR APRN 307.47 SI DYSSOMNIA NOS 08/31/2012 ARNOLD ANGELIKABARRY NUMEROLOGIST, LINDY N 307.47 SI DYSSOMNIA NOS 08/31/2012 CHANTELLE AMADOR APRN 307.47 SI DYSSOMNIA NOS 08/31/2012 WHITE DDS, KURT J 307.47 SI DYSSOMNIA NOS 08/31/2012 WHITE DDS, KURT J 307.47 SI DYSSOMNIA NOS 08/31/2012 CATALINA CHUN NUMEROLOGIST, LINDY N 307.47 SI DYSSOMNIA NOS 08/31/2012 ARNOLD ANGELIKABARRY CALDERON, LINDY N 307.47 SI DYSSOMNIA NOS 08/31/2012 WHITE DDS, KURT J 307.47 SI DYSSOMNIA NOS 08/31/2012 CATALINA CHUN APRN, LINDY N 307.47 SI DYSSOMNIA NOS 08/31/2012 WHITE DDS, KURT J 307.47 SI DYSSOMNIA NOS 08/31/2012 KEV CALDERON VERONIQUE R 307.47 SI DYSSOMNIA NOS 08/31/2012 WHITE DDS, KURT J 307.47 SI DYSSOMNIA NOS 08/31/2012 ARNOLDYRN CARNEYERO NUMEROLOGIST, LINDY N 307.47 SI DYSSOMNIA NOS 08/31/2012 ARNOLD ANGELIKAERO NUMEROLOGIST, LINDY N 307.47 SI DYSSOMNIA NOS 08/31/2012 CARON SCHULTZ DO K 307.47 SI DYSSOMNIA NOS 08/31/2012 MADL YUMIKO PUNEET L 307 .47 SI DYSSOMNIA NOS 10/10/2012 Ot 388.30 TIN NITUS NOS 11/10/2012 V67.9 UNSP ECIFIED FOLLOW- UP EXAMINATION 11/10/2012 V67.9 UNSP ECIFIED FOLLOW- UP EXAMINATION 11/10/2012 V67.9 UNSP ECIFIED FOLLOW- UP EXAMINATION 11/10/2012 V67.9 UNSP ECIFIED FOLLOW- UP EXAMINATION 11/10/2012 V67.9 UNSP ECIFIED FOLLOW- UP EXAMINATION 11/10/2012 V67.9 UNSP ECIFIED FOLLOW- UP EXAMINATION 11/10/2012 V67.9 UNSP ECIFIED FOLLOW- UP EXAMINATION 11/10/2012 V67.9 UNSP ECIFIED FOLLOW- UP EXAMINATION 11/10/2012 V67.9 UNSP ECIFIED FOLLOW- UP EXAMINATION 11/10/2012 CHANTELLE AMADOR APRN V67.9 UNSPECIFIED FOLLOW-UP EXAMINATION 11/10/2012 ARNOLDHE SOLO APRNCY N V67.9 UNSPECIFIED FOLLOW-UP EXAMINATION 11/10/2012 CHANTELLE AMADOR APRN V67.9 UNSPECIFIED FOLLOW-UP EXAMINATION 11/10/2012 WHITE DDS, KURT J V6 7.9 UNSPECIFIED FOLLOW-UP EXAMINATION 11/10/2012 WHITE DDS, KURT J V6 7.9 UNSPECIFIED FOLLOW-UP EXAMINATION 11/10/2012 ARNOLD ANGELIKAHE REDDY APRNCY N V67.9 UNSPECIFIED FOLLOW-UP EXAMINATION 11/10/2012 ARNOLD ANGELIKAHE REDDY APRNCY N V67.9 UNSPECIFIED FOLLOW-UP EXAMINATION 11/10/2012 WHITE DDS, KURT J V6 7.9 UNSPECIFIED FOLLOW-UP EXAMINATION 11/10/2012 CATALINA CARNEYBARRY CALDERON, LINDY N V67.9 UNSPECIFIED FOLLOW-UP EXAMINATION 11/10/2012 WHITE DDS, KURT J V6 7.9 UNSPECIFIED FOLLOW-UP EXAMINATION 11/10/2012 VERONIQUE ANGULO APRN V67.9 UNSPECIFIED FOLLOW-UP EXAMINATION 11/10/2012 WHITE DDS, KURT J V6 7.9 UNSPECIFIED FOLLOW-UP EXAMINATION 11/10/2012 HE GALINDO APRNCY N V67.9 UNSPECIFIED FOLLOW-UP EXAMINATION 11/10/2012 CATALINA CARNEYHE REDDY APRNCY N V67.9 UNSPECIFIED FOLLOW-UP EXAMINATION 11/10/2012 SCHULTZ DO, CARON K V67.9 UNSPECIFIED FOLLOW-UP EXAMINATION 11/10/2012 PUNEET NIELSON APRN V67 .9 UNSPECIFIED FOLLOW-UP EXAMINATION 11/23/2012 782.1 RASH 11/23/2012 782.1 RASH 11/23/2012 782.1 RASH 11/23/2012 782.1 RASH 11/23/2012 782.1 RASH 11/23/2012 782.1 RASH 11/23/2012 782.1 RASH 11/23/2012 782.1 RASH 11/23/2012 CHANTELLE AMADOR APRN 782.1 RASH 11/23/2012 HE GALINDO APRNCY N 782.1 RASH 11/23/2012 CHANTELLE AMADOR APRN 782.1 RASH 11/23/2012 WHITE DDS, KURT J 78 2.1 RASH 11/23/2012 WHITE DDS, KURT J 78 2.1 RASH 11/23/2012 CATALINA CHUN APRN, LINDY N 782.1 RASH 11/23/2012 CATALINA CHUN APRN, LINDY N 782.1 RASH 11/23/2012 WHITE DDS, KURT J 78 2.1 RASH 11/23/2012 HE GALINDO APRNCY N 782.1 RASH 11/23/2012 WHITE DDS, KURT J 78 2.1 RASH 11/23/2012 KEV YUMIKO VERONIQUE R 782.1 RASH 11/23/2012 WHITE DDS, KURT J 78 2.1 RASH 11/23/2012 HE GALINDO APRNCY N 782.1 RASH 11/23/2012 CATALINA CHUN APRN, LINDY N 782.1 RASH 11/23/2012 SCHULTZ DO, CARON K 782.1 RASH 11/23/2012 MADPUNEET Bauman APRN L 782 .1 RASH 12/10/2012 780.52 INS OMNIA UNSPECIFIED 12/10/2012 780.52 INS OMNIA UNSPECIFIED 12/10/2012 780.52 INS OMNIA UNSPECIFIED 12/10/2012 780.52 INS OMNIA UNSPECIFIED 12/10/2012 780.52 INS OMNIA UNSPECIFIED 12/10/2012 780.52 INS OMNIA UNSPECIFIED 12/10/2012 780.52 INS OMNIA UNSPECIFIED 12/10/2012 CHANTELLE AMADOR APRN 780.52 INSOMNIA UNSPECIFIED 12/10/2012 HE GALINDO APRNCY N 780.52 INSOMNIA UNSPECIFIED 12/10/2012 CHANTELLE AMADOR APRN 780.52 INSOMNIA UNSPECIFIED 12/10/2012 WHITE DDS, KURT J 780.52 INSOMNIA UNSPECIFIED 12/10/2012 WHITE DDS, KURT J 780.52 INSOMNIA UNSPECIFIED 12/10/2012 ARNOLD CASHERO NUMEROLOGIST, LINDY N 780.52 INSOMNIA UNSPECIFIED 12/10/2012 ARNOLD CASHERO NUMEROLOGIST, LINDY N 780.52 INSOMNIA UNSPECIFIED 12/10/2012 WHITE DDS, KURT J 780.52 INSOMNIA UNSPECIFIED 12/10/2012 ARNOLD CASHERO NUMEROLOGIST, LINDY N 780.52 INSOMNIA UNSPECIFIED 12/10/2012 WHITE DDS, KURT J 780.52 INSOMNIA UNSPECIFIED 12/10/2012 KEV CALDERON, VERONIQUE R 780.52 INSOMNIA UNSPECIFIED 12/10/2012 WHITE DDS, KURT J 780.52 INSOMNIA UNSPECIFIED 12/10/2012 ARNOLD CASHERO NUMEROLOGIST, LINDY N 780.52 INSOMNIA UNSPECIFIED 12/10/2012 ARNOLD CASHERO NUMEROLOGIST, LINDY N 780.52 INSOMNIA UNSPECIFIED 12/10/2012 CARON SCHULTZ DO K 780.52 INSOMNIA UNSPECIFIED 12/10/2012 CHARLES NIELSON APRNA L 780 .52 INSOMNIA UNSPECIFIED 12/24/2012 729.5 PAIN IN LIMB 12/24/2012 729.5 PAIN IN LIMB 12/24/2012 729.5 PAIN IN LIMB 12/24/2012 729.5 PAIN IN LIMB 12/24/2012 729.5 PAIN IN LIMB 12/24/2012 729.5 PAIN IN LIMB 12/24/2012 CHANTELLE AMADOR APRN 729.5 PAIN IN LIMB 12/24/2012 ARNOLD CASHERO NUMEROLOGIST, LINDY N 729.5 PAIN IN LIMB 12/24/2012 CHANTELLE AMADOR APRN 729.5 PAIN IN LIMB 12/24/2012 WHITE DDS, KURT J 72 9.5 PAIN IN LIMB 12/24/2012 WHITE DDS, KURT J 72 9.5 PAIN IN LIMB 12/24/2012 ARNOLD CASHERO NUMEROLOGIST, LINDY N 729.5 PAIN IN LIMB 12/24/2012 ARNOLD CASHERO NUMEROLOGIST, LINDY N 729.5 PAIN IN LIMB 12/24/2012 WHITE DDS, KURT J 72 9.5 PAIN IN LIMB 12/24/2012 ARNOLD CASHERO NUMEROLOGIST, LINDY N 729.5 PAIN IN LIMB 12/24/2012 WHITE DDS, KURT J 72 9.5 PAIN IN LIMB 12/24/2012 KEV CALDERON VERONIQUE R 729.5 PAIN IN LIMB 12/24/2012 WHITE DDS, KURT J 72 9.5 PAIN IN LIMB 12/24/2012 ARNOLD CASHERO NUMEROLOGIST, LINDY N 729.5 PAIN IN LIMB 12/24/2012 ARNOLD CASHERO NUMEROLOGIST, LINDY N 729.5 PAIN IN LIMB 12/24/2012 SCHULTZ DO, CARON K 729.5 PAIN IN LIMB 12/24/2012 MADL YUMIKO PUNEET L 729 .5 PAIN IN LIMB 02/23/2013 698.9 UNSP ECIFIED PRURITIC DISORDER 02/23/2013 698.9 UNSP ECIFIED PRURITIC DISORDER 02/23/2013 698.9 UNSP ECIFIED PRURITIC DISORDER 02/23/2013 CHANTELLE AMADOR APRN 698.9 UNSPECIFIED PRURITIC DISORDER 02/23/2013 ARNOLD CASHERO NUMEROLOGIST, LINDY N 698.9 UNSPECIFIED PRURITIC DISORDER 02/23/2013 CHANTELLE AMADOR APRN 698.9 UNSPECIFIED PRURITIC DISORDER 02/23/2013 WHITE DDS, KURT J 69 8.9 UNSPECIFIED PRURITIC DISORDER 02/23/2013 WHITE DDS, KURT J 69 8.9 UNSPECIFIED PRURITIC DISORDER 02/23/2013 ARNOLD CASHERO NUMEROLOGIST, LINDY N 698.9 UNSPECIFIED PRURITIC DISORDER 02/23/2013 ARNOLD CASHERO NUMEROLOGIST, LINDY N 698.9 UNSPECIFIED PRURITIC DISORDER 02/23/2013 WHITE DDS, KURT J 69 8.9 UNSPECIFIED PRURITIC DISORDER 02/23/2013 ARNOLD CASHERO NUMEROLOGIST, LINDY N 698.9 UNSPECIFIED PRURITIC DISORDER 02/23/2013 WHITE DDS, KURT J 69 8.9 UNSPECIFIED PRURITIC DISORDER 02/23/2013 KEV BEEN VERONIQUE R 698.9 UNSPECIFIED PRURITIC DISORDER 02/23/2013 WHITE DDS, KURT J 69 8.9 UNSPECIFIED PRURITIC DISORDER 02/23/2013 ARNOLD CASHERO NUMEROLOGIST, LINDY N 698.9 UNSPECIFIED PRURITIC DISORDER 02/23/2013 ARNOLD CASHERO NUMEROLOGIST, LINDY N 698.9 UNSPECIFIED PRURITIC DISORDER 02/23/2013 SCHULTZ DO, CARON K 698.9 UNSPECIFIED PRURITIC DISORDER 02/23/2013 PUNEET NIELSON APRN 698 .9 UNSPECIFIED PRURITIC DISORDER 03/12/2013 355.6 NEUROMA/METATARSALGIA 03/12/2013 443.0 RAYN AUD'S SYNDROME 03/12/2013 736.72 EQU INUS DEFORMITY 03/12/2013 355.6 NEUROMA/METATARSALGIA 03/12/2013 443.0 RAYN AUD'S SYNDROME 03/12/2013 736.72 EQU INUS DEFORMITY 03/12/2013 CHANTELLE AMADOR APRN 355.6 NEUROMA/METATARSALGIA 03/12/2013 CHANTELLE AMADOR APRN 443.0 RAYNAUD'S SYNDROME 03/12/2013 CHANTELLE AMADOR APRN 736.72 EQUINUS DEFORMITY 03/12/2013 LINDY GALINDO APRN N 355.6 NEUROMA/METATARSALGIA 03/12/2013 LINDY GALINDO APRN N 443.0 RAYNAUD'S SYNDROME 03/12/2013 LINDY GALINDO APRN N 736.72 EQUINUS DEFORMITY 03/12/2013 CHANTELLE AMADOR APRN 355.6 NEUROMA/METATARSALGIA 03/12/2013 CHANTELLE AMADOR APRN 443.0 RAYNAUD'S SYNDROME 03/12/2013 CHANTELLE AMADOR APRN 736.72 EQUINUS DEFORMITY 03/12/2013 WHITE DDS, KURT J 35 5.6 NEUROMA/METATARSALGIA 03/12/2013 WHITE DDS, KURT J 44 3.0 RAYNAUD'S SYNDROME 03/12/2013 WHITE DDS, KURT J 736.72 EQUINUS DEFORMITY 03/12/2013 WHITE DDS, KURT J 35 5.6 NEUROMA/METATARSALGIA 03/12/2013 WHITE DDS, KURT J 44 3.0 RAYNAUD'S SYNDROME 03/12/2013 WHITE DDS, KURT J 736.72 EQUINUS DEFORMITY 03/12/2013 LINDY GALINDO APRN N 355.6 NEUROMA/METATARSALGIA 03/12/2013 LINDY GALINDO APRN N 443.0 RAYNAUD'S SYNDROME 03/12/2013 HE GALINDO APRNCY N 736.72 EQUINUS DEFORMITY 03/12/2013 ARNOLDYRN CARNEYLINDY REDDY APRN N 355.6 NEUROMA/METATARSALGIA 03/12/2013 CATALINA CARNEYLINDY REDDY APRN N 443.0 RAYNAUD'S SYNDROME 03/12/2013 CATALINA CARNEYLINDY REDDY APRN N 736.72 EQUINUS DEFORMITY 03/12/2013 WHITE DDS, KURT J 35 5.6 NEUROMA/METATARSALGIA 03/12/2013 WHITE DDS, KURT J 44 3.0 RAYNAUD'S SYNDROME 03/12/2013 WHITE DDS, KURT J 736.72 EQUINUS DEFORMITY 03/12/2013 CATALINA CARNEYLINDY REDDY APRN N 355.6 NEUROMA/METATARSALGIA 03/12/2013 CATALINA CARNEYLINDY REDDY APRN N 443.0 RAYNAUD'S SYNDROME 03/12/2013 ARNOLD ANGELIKALINDY REDDY APRN N 736.72 EQUINUS DEFORMITY 03/12/2013 WHITE DDS, KURT J 35 5.6 NEUROMA/METATARSALGIA 03/12/2013 WHITE DDS, KURT J 44 3.0 RAYNAUD'S SYNDROME 03/12/2013 WHITE DDS, KURT J 736.72 EQUINUS DEFORMITY 03/12/2013 VERONIQUE ANGULO APRN R 355.6 NEUROMA/METATARSALGIA 03/12/2013 REUBEN ANGULO APRNINA R 443.0 RAYNAUD'S SYNDROME 03/12/2013 KEV CALDERON VERONIQUE R 736.72 EQUINUS DEFORMITY 03/12/2013 WHITE DDS, KURT J 35 5.6 NEUROMA/METATARSALGIA 03/12/2013 WHITE DDS, KURT J 44 3.0 RAYNAUD'S SYNDROME 03/12/2013 WHITE DDS, KURT J 736.72 EQUINUS DEFORMITY 03/12/2013 ARNOLDYRN CARNEYLINDY REDDY APRN N 355.6 NEUROMA/METATARSALGIA 03/12/2013 ARNOLDYRN CARNEYLINDY REDDY APRN N 443.0 RAYNAUD'S SYNDROME 03/12/2013 ARNOLDYRN CARNEYLINDY REDDY APRN N 736.72 EQUINUS DEFORMITY 03/12/2013 ARNOLD ANGELIKALINDY REDDY APRN N 355.6 NEUROMA/METATARSALGIA 03/12/2013 ARNOLDLINDY SOLO APRN N 443.0 RAYNAUD'S SYNDROME 03/12/2013 CATALINA CHUN APRTrey LINDY N 736.72 EQUINUS DEFORMITY 03/12/2013 SCHULTZ DO, CARON K 355.6 NEUROMA/METATARSALGIA 03/12/2013 SCHULTZ DO, CARON K 443.0 RAYNAUD'S SYNDROME 03/12/2013 SCHULTZ , CARON K 736.72 EQUINUS DEFORMITY 03/12/2013 LIMA NIELSON APRNWNYA L 355 .6 NEUROMA/METATARSALGIA 03/12/2013 MADL YUMIKO, UPNEET L 443 .0 RAYNAUD'S SYNDROME 03/12/2013 HAYLEYL YUMIKO, PUNEET L 736 .72 EQUINUS DEFORMITY 03/19/2013 DOLLY AVERY SUNSHINE Hare Ot 686.9 LOCAL SKIN INFECTION NOS 03/19/2013 DOLLY AVERYSUNSHINE Ot 780.52 INSOMNIA, UNSPECIFIED 06/27/2013 MIKE SUNSHINE, SURENDRA Sheriff Ot 311 DEPRESSIVE DISORDER NEC 06/27/2013 MIKE SUNSHINE, SURENDRA Sheriff Ot 969.3 POISON-ANTIPSYCHOTIC NEC 06/27/2013 MIKE SUNSHINE, SURENDRA Sheriff Ot E849.0 ACCIDENT IN HOME 06/27/2013 SURENDRA MCKEON MD Ot E950.4 SUICIDE-DRUG/MEDICIN NEC 07/20/2013 CATALINA CHUN NUMEROLOGIST, LINDY N 300.00 ANXIETY STATE UNSPECIFIED 07/20/2013 LINDY GALINDO APRN N 443.9 PERIPHERAL VASCULAR DISEASE UNSPECIFIED 07/20/2013 LINDY GALINDO APRN N 300.00 ANXIETY STATE UNSPECIFIED 07/20/2013 LINDY GALINDO APRN N 443.9 PERIPHERAL VASCULAR DISEASE UNSPECIFIED 07/20/2013 KURT CARDONA DDS J 300.00 ANXIETY STATE UNSPECIFIED 07/20/2013 BRENDAN PERALTA, KURT J 44 3.9 PERIPHERAL VASCULAR DISEASE UNSPECIFIED 07/20/2013 LINDY GALINDO APRN N 300.00 ANXIETY STATE UNSPECIFIED 07/20/2013 LINDY GALINDO APRN N 443.9 PERIPHERAL VASCULAR DISEASE UNSPECIFIED 07/20/2013 WHITE DDS, KURT J 300.00 ANXIETY STATE UNSPECIFIED 07/20/2013 WHITE DDS, KURT J 44 3.9 PERIPHERAL VASCULAR DISEASE UNSPECIFIED 07/20/2013 KEV NUMEROLOGIST, VERONIQUE R 300.00 ANXIETY STATE UNSPECIFIED 07/20/2013 KEV NUMEROLOGIST, VERONIQUE R 443.9 PERIPHERAL VASCULAR DISEASE UNSPECIFIED 07/20/2013 WHITE DDS, KURT J 300.00 ANXIETY STATE UNSPECIFIED 07/20/2013 WHITE DDS, KURT J 44 3.9 PERIPHERAL VASCULAR DISEASE UNSPECIFIED 07/20/2013 ARNOLD ANGELIKAERO NUMEROLOGIST, LINDY N 300.00 ANXIETY STATE UNSPECIFIED 07/20/2013 ARNOLD CASHERO NUMEROLOGIST, LINDY N 443.9 PERIPHERAL VASCULAR DISEASE UNSPECIFIED 07/20/2013 ARNOLD ANGELIKAERO NUMEROLOGIST, LINDY N 300.00 ANXIETY STATE UNSPECIFIED 07/20/2013 ARNOLD ANGELIKAERO NUMEROLOGIST, LINDY N 443.9 PERIPHERAL VASCULAR DISEASE UNSPECIFIED 07/20/2013 SCHULTZ DO, CARON K 300.00 ANXIETY STATE UNSPECIFIED 07/20/2013 SCHULTZ DO, CARON K 443.9 PERIPHERAL VASCULAR DISEASE UNSPECIFIED 07/20/2013 MADL NUMEROLOGIST, PUNEET L 300 .00 ANXIETY STATE UNSPECIFIED 07/20/2013 MADL NUMEROLOGIST, PUNEET L 443 .9 PERIPHERAL VASCULAR DISEASE UNSPECIFIED 09/07/2013 ARNOLD ADIEL NUMEROLOGIST, LINDY N V67.9 UNSPECIFIED FOLLOW-UP EXAMINATION 09/07/2013 WHITE DDS, KURT J V6 7.9 UNSPECIFIED FOLLOW-UP EXAMINATION 09/07/2013 CATALINA CHUN NUMEROLOGIST, LINDY N V67.9 UNSPECIFIED FOLLOW-UP EXAMINATION 09/07/2013 WHITE DDS, KURT J V6 7.9 UNSPECIFIED FOLLOW-UP EXAMINATION 09/07/2013 KEV NUMEROLOGIST, VERONIQUE R V67.9 UNSPECIFIED FOLLOW-UP EXAMINATION 09/07/2013 WHITE DDS, KURT J V6 7.9 UNSPECIFIED FOLLOW-UP EXAMINATION 09/07/2013 ARNOLD ANGELIKAERO NUMEROLOGIST, LINDY N V67.9 UNSPECIFIED FOLLOW-UP EXAMINATION 09/07/2013 ARNOLD ANGELIKAERO NUMEROLOGIST, LINDY N V67.9 UNSPECIFIED FOLLOW-UP EXAMINATION 09/07/2013 SCHULTZ DO, CARON K V67.9 UNSPECIFIED FOLLOW-UP EXAMINATION 09/07/2013 MADL NUMEROLOGIST, PUNEET L V67 .9 UNSPECIFIED FOLLOW-UP EXAMINATION 10/19/2013 ARNOLD CASHERO NUMEROLOGIST, LINDY N 461.8 OTHER ACUTE SINUSITIS 10/19/2013 ARNOLD CASHERO NUMEROLOGIST, LINDY N 477.9 ALLERGIC RHINITIS CAUSE UNSPECIFIED 10/19/2013 ARNOLD CASHERO NUMEROLOGIST, LINDY N 786.2 COUGH 10/19/2013 WHITE DDS, KURT J 46 1.8 OTHER ACUTE SINUSITIS 10/19/2013 WHITE DDS, KURT J 47 7.9 ALLERGIC RHINITIS CAUSE UNSPECIFIED 10/19/2013 WHITE DDS, KURT J 78 6.2 COUGH 10/19/2013 KEV NUMEROLOGIST, VERONIQUE R 461.8 OTHER ACUTE SINUSITIS 10/19/2013 KEV NUMEROLOGIST, VERONIQUE R 477.9 ALLERGIC RHINITIS CAUSE UNSPECIFIED 10/19/2013 KEV NUMEROLOGIST, VERONIQUE R 786.2 COUGH 10/19/2013 WHITE DDS, KURT J 46 1.8 OTHER ACUTE SINUSITIS 10/19/2013 WHITE DDS, KURT J 47 7.9 ALLERGIC RHINITIS CAUSE UNSPECIFIED 10/19/2013 WHITE DDS, KURT J 78 6.2 COUGH 10/19/2013 ARNOLD CASHERO NUMEROLOGIST, LINDY N 461.8 OTHER ACUTE SINUSITIS 10/19/2013 ARNOLD CASHERO NUMEROLOGIST, LINDY N 477.9 ALLERGIC RHINITIS CAUSE UNSPECIFIED 10/19/2013 ARNOLD CASHERO NUMEROLOGIST, LINDY N 786.2 COUGH 10/19/2013 ARNOLD CASHERO NUMEROLOGIST, LINDY N 461.8 OTHER ACUTE SINUSITIS 10/19/2013 ARNOLD CASHERO NUMEROLOGIST, LINDY N 477.9 ALLERGIC RHINITIS CAUSE UNSPECIFIED 10/19/2013 ARNOLD CASHERO NUMEROLOGIST, LINDY N 786.2 COUGH 10/19/2013 SCHULTZ DO, CARON K 461.8 OTHER ACUTE SINUSITIS 10/19/2013 SCHULTZ DO, CARON K 477.9 ALLERGIC RHINITIS CAUSE UNSPECIFIED 10/19/2013 SCHULTZ DO, CARON K 786.2 COUGH 10/19/2013 MADL NUMEROLOGIST, PUNEET L 461 .8 OTHER ACUTE SINUSITIS 10/19/2013 MADL NUMEROLOGIST, PUNEET L 477 .9 ALLERGIC RHINITIS CAUSE UNSPECIFIED 10/19/2013 CHARLES NIELSON APRNA L 786 .2 COUGH 03/16/2014 KEV YUMIKO VERONIQUE R 461.9 SINUSITIS ACUTE 03/16/2014 BRENDAN ALLI PERALTAON J 46 1.9 SINUSITIS ACUTE 03/16/2014 CATALINA CHUN APRN, LINDY N 461.9 SINUSITIS ACUTE 03/16/2014 CATALINA CHUN APRN, LINDY N 461.9 SINUSITIS ACUTE 03/16/2014 CARON SCHULTZ DO K 461.9 SINUSITIS ACUTE 03/16/2014 NISREEN CALDERON PUNEET L 461 .9 SINUSITIS ACUTE 06/28/2014 CATALINA CHUN APRN, LINDY N 719.42 PAIN IN JOINT INVOLVING UPPER ARM 06/28/2014 CATALINA CHUN APRTrey LINDY N 719.42 PAIN IN JOINT INVOLVING UPPER ARM 06/28/2014 CARON SCHULTZ DO K 719.42 PAIN IN JOINT INVOLVING UPPER ARM 06/28/2014 NISREEN BEETrey PUNEET L 719 .42 PAIN IN JOINT INVOLVING UPPER ARM 07/04/2014 Ot 295.70 07/04/2014 Ot V58.69 07/04/2014 [facility] F Ot 785 .9 07/04/2014 [facility] DOWNING DO Ot V12.49 07/04/2014 [facility] DO F Ot 785 .9 07/04/2014 [facility] DOPAUL F Ot V17 .2 07/04/2014 [facility] F Ot 785 .9 07/04/2014 [facility] DO Ot 433.10 07/11/2014 Ot 295.70 07/11/2014 Ot V58.69 07/11/2014 [facility] PAUL F Ot 785 .9 07/11/2014 [facility] DO[facility]NAEN F Ot V12.49 07/11/2014 [facility] EDNA AVERYEN F Ot 785 .9 07/11/2014 [facility] DO F Ot V17 .2 07/11/2014 [facility] E[facility] AVERYEN F Ot 785 .9 07/11/2014 [facility] DOEN F Ot 433.10 07/13/2014 ARNOLD ADIEL BEEHE YangCY N 793.80 ABNORMAL MAMMOGRAM 07/13/2014 LINDY GALINDO APRN N 793.80 ABNORMAL MAMMOGRAM 07/13/2014 BILLIE SCHULTZ DOA K 793.80 ABNORMAL MAMMOGRAM 07/13/2014 PUNEET NIELSON APRN L 793 .80 ABNORMAL MAMMOGRAM 07/19/2014 LINDY GALINDO APRN N 307.50 EATING DISORDER UNSPECIFIED 07/19/2014 LINDY GALINDO APRN N 578.1 BLOOD IN STOOL 07/19/2014 SCHULTZ DO, CARON K 307.50 EATING DISORDER UNSPECIFIED 07/19/2014 SCHULTZ DO, CARON K 578.1 BLOOD IN STOOL 07/19/2014 CHARLES NIELSON APRNA L 307 .50 EATING DISORDER UNSPECIFIED 07/19/2014 CHARLES NIELSON APRNA L 578 .1 BLOOD IN STOOL 08/11/2014 ANTOINE AVERY, CARON K 726.33 OLECRANON BURSITIS 08/11/2014 CHARLES NIELSON APRNA L 726 .33 OLECRANON BURSITIS 08/11/2014 LINDY ROSE N 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 TECHNICIAN Ot V76.12 08/22/2014 ROSE LINDY N 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 TECHNICIAN Ot 793.80 08/26/2014 ROSE LINDY N 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 TECHNICIAN Ot 793.80 07/07/2015 MIKE SUNSHINE, SURENDRA Sheriff Ot F17.210 NICOTINE DEPENDENCE, CIGARETTES, UNCOMPL 07/07/2015 MIKE SUNSHINE, SURENDRA Sheriff Ot H65.192 OTHER ACUTE NONSUPPURATIVE OTITIS MEDIA, 07/07/2015 MIKE SUNSHINE, SURENDRA Sheriff Ot H69.83 OTHER SPECIFIED DISORDERS OF EUSTACHIAN 01/16/2016 PAUL MERLOS DO Ot 785 .9 CARDIOVAS SYS SYMP NEC 01/16/2016 PAUL MERLOS DO Ot V12.49 HX OTH DISORD/NERV SYS SENSE ORGANS 01/16/2016 PAUL MERLOS DO Ot 785 .9 CARDIOVAS SYS SYMP NEC 01/16/2016 PAUL MERLOS DO Ot V17 .2 FAM HX-NEUROLOG DIS NEC 01/16/2016 PAUL MERLOS DO Ot 785 .9 CARDIOVAS SYS SYMP NEC 01/16/2016 PAUL MERLOS DO Ot 433.10 CAROTID ARTERY OCCLUSION W O CEREBRAL IN 01/16/2016 ARNOLDTATUM LINDYTAHIR GONZALEZ Ot V76.12 OTH SCREEN MAMMO-MALIGN NEOPLASM OF OLIVIA 01/16/2016 ARNOLDLINDY WINN 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 TECHNICIAN Ot 793.80 UNSPEC ABNORMAL MAMMOGRAM 01/17/2016 SEA 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 Ot I77.9 DISORDER OF ARTERIES AND ARTERIOLES, UNS 01/18/2016 SEA 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 Ot I77.9 DISORDER OF ARTERIES AND ARTERIOLES, UNS 01/19/2016 SEA 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 Ot I65.23 OCCLUSION AND STENOSIS OF BILATERAL ZHAO 02/22/2016 SEA 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 Ot I65.23 OCCLUSION AND STENOSIS OF BILATERAL ZHAO 03/05/2016 SEA 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 Ot I65.23 OCCLUSION AND STENOSIS OF BILATERAL ZHAO 01/01/2017 PAUL MERLOS DO Ot 785 .9 CARDIOVAS SYS SYMP NEC 01/01/2017 PAUL MERLOS DO Ot V12.49 HX OTH DISORD/NERV SYS SENSE ORGANS 01/01/2017 PAUL MERLOS DO Ot 785 .9 CARDIOVAS SYS SYMP NEC 01/01/2017 PAUL MERLOS DO Ot V17 .2 FAM HX-NEUROLOG DIS NEC 01/01/2017 PAUL MERLOS DO Ot 785 .9 CARDIOVAS SYS SYMP NEC 01/01/2017 PAUL MERLOS DO Ot 433.10 CAROTID ARTERY OCCLUSION W O CEREBRAL IN 01/01/2017 LINDY ROSEP Ot V76.12 OTH SCREEN MAMMO-MALIGN NEOPLASM OF OLIVIA 01/01/2017 LINDY ROSEP Ot 793.80 UNSPEC ABNORMAL MAMMOGRAM 01/01/2017 SEA BOYCEP Ot I65.23 OCCLUSION AND STENOSIS OF BILATERAL ZHAO 01/02/2017 LORENA SUNSHINE, SIERRA R Ot I12 .9 HYPERTENSIVE CHRONIC KIDNEY DISEASE W ST 01/02/2017 LORENA SUNSHINE, SIERRA Buck Ot N18 .3 CHRONIC KIDNEY DISEASE, STAGE 3 (MODERAT 01/22/2017 LORENA SUNSHINE, SIERRA R Ot I12 .9 HYPERTENSIVE CHRONIC KIDNEY DISEASE W ST 01/22/2017 LORENA SUNSHINE, SIERRA R Ot N18 .3 CHRONIC KIDNEY DISEASE, STAGE 3 (MODERAT 02/14/2017 LORENA SUNSHINE, SIERRA R Ot I12 .9 HYPERTENSIVE CHRONIC KIDNEY DISEASE W ST 02/14/2017 LORENA SUNSHINE, SIERRA R Ot N18 .3 CHRONIC KIDNEY DISEASE, STAGE 3 (MODERAT 04/29/2017 KWASI SUNSHINE, MAJID Ot D64.9 ANEMIA, UNSPECIFIED 04/29/2017 KWASI SUNSHINE, MAJID Ot I12.9 HYPERTENSIVE CHRONIC KIDNEY DISEASE W ST 04/29/2017 KWASI SUNSHINE, MAJID Ot N18.3 CHRONIC KIDNEY DISEASE, STAGE 3 (MODERAT 04/29/2017 KWASI SUNSHINE, MAJID Ot D64.9 ANEMIA, UNSPECIFIED 04/29/2017 KWASI SUNSHINE, MAJID Ot I12.9 HYPERTENSIVE CHRONIC KIDNEY DISEASE W ST 04/29/2017 KWASI SUNSHINE, ID Ot N18.3 CHRONIC KIDNEY DISEASE, STAGE 3 (MODERAT 10/02/2017 YUMIKO HOFF MD Ot D72.829 ELEVATED WHITE BLOOD CELL COUNT, UNSPECI 10/02/2017 YUMIKO HOFF MD Ot E03 .9 HYPOTHYROIDISM, UNSPECIFIED 10/02/2017 YUMIKO HOFF MD Ot F32 .9 MAJOR DEPRESSIVE DISORDER, SINGLE EPISOD 10/02/2017 YUMIKO HOFF MD Ot F41 .9 ANXIETY DISORDER, UNSPECIFIED 10/02/2017 YUMIKO HOFF MD Ot G80 .9 CEREBRAL PALSY, UNSPECIFIED 10/02/2017 YUMIKO HOFF MD Ot I10 ESSENTIAL (PRIMARY) HYPERTENSION 10/02/2017 YUMIKO HOFF MD Ot J45.909 UNSPECIFIED ASTHMA, UNCOMPLICATED 10/02/2017 YUMIKO HOFF MD Ot M47.816 SPONDYLOSIS W/O MYELOPATHY OR RADICULOPA 10/02/2017 YUMIKO HOFF MD Ot M54 .5 LOW BACK PAIN 10/02/2017 YUMIKO HOFF MD Ot N18 .9 CHRONIC KIDNEY DISEASE, UNSPECIFIED 10/02/2017 YUMIKO HOFF MD Ot Z79.51 CUSTODIAL (CURRENT) USE OF INHALED STERO 10/02/2017 YUMIKO HOFF MD Ot Z87.891 PERSONAL HISTORY OF NICOTINE DEPENDENCE 10/02/2017 YUMIKO HOFF MD Ot Z88 .0 ALLERGY STATUS TO PENICILLIN 10/02/2017 YUMIKO HOFF MD Ot Z88 .1 ALLERGY STATUS TO OTHER ANTIBIOTIC AGENT 10/02/2017 YUMIKO HOFF MD Ot Z88 .2 ALLERGY STATUS TO SULFONAMIDES STATUS 10/02/2017 YUMIKO HOFF MD Ot Z88 .8 ALLERGY STATUS TO OTH DRUG/MEDS/BIOL SUB 10/02/2017 YUMIKO HOFF MD Ot Z90.49 ACQUIRED ABSENCE OF OTHER SPECIFIED PART 10/06/2017 YUMIKO HOFF MD Ot D72.829 ELEVATED WHITE BLOOD CELL COUNT, UNSPECI 10/06/2017 YUMIKO HOFF MD Ot E03 .9 HYPOTHYROIDISM, UNSPECIFIED 10/06/2017 YUMIKO HOFF MD Ot F32 .9 MAJOR DEPRESSIVE DISORDER, SINGLE EPISOD 10/06/2017 YUMIKO HOFF MD Ot F41 .9 ANXIETY DISORDER, UNSPECIFIED 10/06/2017 YUMIKO HOFF MD Ot G80 .9 CEREBRAL PALSY, UNSPECIFIED 10/06/2017 YUMIKO HOFF MD Ot I10 ESSENTIAL (PRIMARY) HYPERTENSION 10/06/2017 YUMIKO HOFF MD Ot J45.909 UNSPECIFIED ASTHMA, UNCOMPLICATED 10/06/2017 YUMIKO HOFF MD Ot M47.816 SPONDYLOSIS W/O MYELOPATHY OR RADICULOPA 10/06/2017 YUMIKO HOFF MD Ot M54 .5 LOW BACK PAIN 10/06/2017 YUMIKO HOFF MD Ot N18 .9 CHRONIC KIDNEY DISEASE, UNSPECIFIED 10/06/2017 YUMIKO HOFF MD Ot 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 10/06/2017 YUMIKO HOFF MD Ot Z87.891 PERSONAL HISTORY OF NICOTINE DEPENDENCE 10/06/2017 YUMIKO HOFF MD Ot Z88 .0 ALLERGY STATUS TO PENICILLIN 10/06/2017 YUMIKO HOFF MD Ot Z88 .1 ALLERGY STATUS TO OTHER ANTIBIOTIC AGENT 10/06/2017 YUMIKO HOFF MD Ot Z88 .2 ALLERGY STATUS TO SULFONAMIDES STATUS 10/06/2017 YUMIKO HOFF MD Ot Z88 .8 ALLERGY STATUS TO OTH DRUG/MEDS/BIOL SUB 10/06/2017 YUMIKO HOFF MD Ot Z90.49 ACQUIRED ABSENCE OF OTHER SPECIFIED PART 10/08/2017 YUMIKO HOFF MD Ot D72.829 ELEVATED WHITE BLOOD CELL COUNT, UNSPECI 10/08/2017 YUMIKO HOFF MD Ot E03 .9 HYPOTHYROIDISM, UNSPECIFIED 10/08/2017 YUMIKO HOFF MD Ot F32 .9 MAJOR DEPRESSIVE DISORDER, SINGLE EPISOD 10/08/2017 YUMIKO HOFF MD Ot F41 .9 ANXIETY DISORDER, UNSPECIFIED 10/08/2017 YUMIKO HOFF MD Ot G80 .9 CEREBRAL PALSY, UNSPECIFIED 10/08/2017 YUMIKO HOFF MD Ot I10 ESSENTIAL (PRIMARY) HYPERTENSION 10/08/2017 YUMIKO HOFF MD Ot J45.909 UNSPECIFIED ASTHMA, UNCOMPLICATED 10/08/2017 YUMIKO HOFF MD Ot M47.816 SPONDYLOSIS W/O MYELOPATHY OR RADICULOPA 10/08/2017 YUMIKO HOFF MD Ot M54 .5 LOW BACK PAIN 10/08/2017 YUMIKO HOFF MD Ot N18 .9 CHRONIC KIDNEY DISEASE, UNSPECIFIED 10/08/2017 YUMIKO HOFF MD Ot 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 10/08/2017 YUMIKO HOFF MD Ot Z87.891 PERSONAL HISTORY OF NICOTINE DEPENDENCE 10/08/2017 YUMIKO HOFF MD Ot Z88 .0 ALLERGY STATUS TO PENICILLIN 10/08/2017 YUMIKO HOFF MD Ot Z88 .1 ALLERGY STATUS TO OTHER ANTIBIOTIC AGENT 10/08/2017 YUMIKO HOFF MD Ot Z88 .2 ALLERGY STATUS TO SULFONAMIDES STATUS 10/08/2017 YUMIKO HOFF MD Ot Z88 .8 ALLERGY STATUS TO OTH DRUG/MEDS/BIOL SUB 10/08/2017 YUMIKO HOFF MD Ot Z90.49 ACQUIRED ABSENCE OF OTHER SPECIFIED PART 04/21/2019 COOPER MCINTOSH DO Ot Z01.818 ENCOUNTER FOR OTHER PREPROCEDURAL EXAMIN 04/22/2019 COOPER MCINTOSH DO Ot Z01.818 ENCOUNTER FOR OTHER PREPROCEDURAL EXAMIN 04/22/2019 COOPER MCINTOSH DO Ot Z01.818 ENCOUNTER FOR OTHER PREPROCEDURAL EXAMIN 06/09/2019 COPOER MCINTOSH DO Ot Z01.818 ENCOUNTER FOR OTHER PREPROCEDURAL EXAMIN Procedures Code [place] [address] PAP SMEAR 06/10/2012 Q0091 PAP SMEAR OBTAIN SMEAR 06/29/2012 36585 A1C (IN-HOUSE) 10/20/2012 35841 ROUT INE VENIPUNCTURE 12/14/2012 13538 CMP 12/14/2012 17622 LIPI D PANEL 12/14/2012 [id number] GF R CALC (RESULT ONLY) 12/14/2012 15820 CBC 12/14/2012 60011 TSH 12/14/2012 36547 ROUT INE VENIPUNCTURE 12/24/2012 03363 ESR/ SED RATE 12/24/2012 32499 CRP 12/24/2012 37885 AMRIT MIN D 25-HYDROXY (D2,D3, TOTAL) 12/24/2012 13911 URIC ACID 12/24/2012 77689 RA FACTOR 12/25/2012 51435 ASO 12/25/[address] N SONNY, SOFT TISSUE NECK W/DYE 02/01/2013 Podiatry W Agata pérez 03/22/2013 Neurology Roge Rizo 04/02/2013 Rheumatol Abu-Libdeh, Ashley 04/07/2013 72678 ROUT INE VENIPUNCTURE 06/29/2014 39450 XRAY ELBOW L 2 VIEWS 06/29/2014 [id number] GF R CALC (RESULT ONLY) 06/29/2014 95618 CMP 06/29/2014 18228 LIPI D PANEL 06/29/2014 07025 CBC 06/29/2014 59897 TSH 06/29/2014 ANAANA MARTINA ANALYZER (SCREEN) 06/30/2014 47338 MAMM OGRAM, SCREENING 07/04/2014 ORTHOPEDI VIKASH GLOVER 07/04/2014 21354 AMRIT MIN D I-25 DIHYDROXY 07/04/2014 01993 US B REAST ULTRASOUND, LEFT 07/14/2014 21898 PAP SMEAR 07/19/2014 GENERAL S CATHY JADE 07/19/2014 Q0091 PAP SMEAR OBTAIN SMEAR 07/19/2014 68102 HEMOCCULT 07/19/2014 Results Test Result Range TSH+Free T4 - 07/02/16 09:04 TSH 3.190 uIU/mL 0.450-4.500 T4,Free(Direct) 1.17 ng/dL 0.82-1.77 CBC With Differential/Platelet - 6 09:04 WBC 13.2 x10E3/uL 3.4-10.8 RBC 3.82 x10E6/uL 3.77-5.28 Hemoglobin 11.6 g/dL 11.1-15.9 Hematocrit 34.3 % 34.0-46.6 MCV 90 fL 79-97 MCH 30.4 pg 26.6-33.0 MCHC 33.8 g/dL 31.5-35.7 RDW 13.1 % 12.3-15.4 Platelets 268 x10E3/uL 150-379 Neutrophils 63 % Lymphs 20 % Monocytes 9 % Eos 8 % Basos 0 % Neutrophils (Absolute) 8.3 x10E3/uL 1.4- 7.0 Lymphs (Absolute) 2.6 x10E3/uL 0.7-3.1 Monocytes(Absolute) 1.2 x10E3/uL 0.1-0.9 Eos (Absolute) 1.0 x10E3/uL 0.0-0.4 Baso (Absolute) 0.1 x10E3/uL 0.0-0.2 Immature Granulocytes 0 % Immature Grans (Abs) 0.0 x10E3/uL 0.0-0. 1 Comp. Metabolic Panel (14) - 07/02/16 09 :04 Glucose, Serum 78 mg/dL 65-99 BUN 11 mg/dL 6-24 Creatinine, Serum 1.43 mg/dL 0.57-1.00 eGFR If NonAfricn Am 43 mL/min/1.73 >59 eGFR If Africn Am 50 mL/min/1.73 >59 BUN/Creatinine Ratio 8 9-23 Sodium, Serum 139 mmol/L 134-144 Potassium, Serum 4.2 mmol/L 3.5-5.2 Chloride, Serum 103 mmol/L 96-106 Carbon Dioxide, Total 21 mmol/L 18-29 Calcium, Serum 7.4 mg/dL 8.7-10.2 Protein, Total, Serum 6.4 g/dL 6.0-8.5 Albumin, Serum 4.3 g/dL 3.5-5.5 Globulin, Total 2.1 g/dL 1.5-4.5 A/G Ratio 2.0 1.1-2.5 Bilirubin, Total 0.2 mg/dL 0.0-1.2 Alkaline Phosphatase, S 92 IU/L 39-117 AST (SGOT) 13 IU/L 0-40 ALT (SGPT) 9 IU/L 0-32 Lipid Panel - 07/02/16 09:04 Cholesterol, Total 152 mg/dL 100-199 Triglycerides 104 mg/dL 0-149 HDL Cholesterol 39 mg/dL >39 VLDL Cholesterol Branden 21 mg/dL 5-40 LDL Cholesterol Calc 92 mg/dL 0-99 Creatinine Clearance - 10/04/16 11:15 Creatinine, Serum 1.69 mg/dL 0.57-1.00 eGFR If NonAfricn Am 35 mL/min/1.73 >59 eGFR If Africn Am 41 mL/min/1.73 >59 Creatinine, Urine 28.6 mg/dL Not Estab. Creatinine, Ur 24hr 1015 mg/24 hr 800-18 00 Creatinine Clearance 42 mL/min 88-128 Comp. Metabolic Panel (14) - 10/30/16 16 :24 Glucose, Serum 109 mg/dL 65-99 BUN 19 mg/dL 6-24 Creatinine, Serum 1.83 mg/dL 0.57-1.00 eGFR If NonAfricn Am 32 mL/min/1.73 >59 eGFR If Africn Am 37 mL/min/1.73 >59 BUN/Creatinine Ratio 10 9-23 Sodium, Serum 141 mmol/L 134-144 Potassium, Serum 4.2 mmol/L 3.5-5.2 Chloride, Serum 103 mmol/L 96-106 Carbon Dioxide, Total 22 mmol/L 18-29 Calcium, Serum 8.6 mg/dL 8.7-10.2 Protein, Total, Serum 7.1 g/dL 6.0-8.5 Albumin, Serum 4.5 g/dL 3.5-5.5 Globulin, Total 2.6 g/dL 1.5-4.5 A/G Ratio 1.7 1.2-2.2 Bilirubin, Total <0.2 mg/dL 0.0-1.2 Alkaline Phosphatase, S 111 IU/L 39-117 AST (SGOT) 11 IU/L 0-40 ALT (SGPT) 13 IU/L 0-32 Complete blood count (CBC) with automate d white blood cell (WBC) differential - 04/23/17 13:32 Blood leukocytes automated count (number/volume) 12.8 10*3/uL 4.3-11.0 Blood erythrocytes automated count (number/volume) 4.16 10*6/uL 4.35-5.85 Venous blood hemoglobin measurement (mass/volume) 12.6 g/dL 11.5-16.0 Blood hematocrit (volume fraction) 38 % 35-52 Automated erythrocyte mean corpuscular volume 92 [ foz_us] 80-99 Automated erythrocyte mean corpuscular h emoglobin (mass per erythrocyte) 30 pg 25-34 Automated erythrocyte mean corpuscular h emoglobin concentration measurement (mass/volume) 33 g/dL 32-36 Automated erythrocyte distribution width ratio 12. 5 % 10.0- 14.5 Automated blood platelet count (count/volume) 272 10*3/uL 130-400 Automated blood platelet mean volume measurement 11.1 [foz_us] 7.4-10.4 Automated blood neutrophils/100 leukocytes 70 % 42-75 Automated blood lymphocytes/100 leukocytes 17 % 12-44 Blood monocytes/100 leukocytes 6 % 0-12 Automated blood eosinophils/100 leukocytes 7 % 0-10 Automated blood basophils/100 leukocytes 1 % 0-10 Blood neutrophils automated count (number/volume) 8.9 10*3 1.8-7.8 Blood lymphocytes automated count (number/volume) 2.2 10*3 1.0-4.0 Blood monocytes automated count (number/volume) 0. 8 10*3 0.0-1.0 Automated eosinophil count 0.8 10*3/uL 0 .0-0.3 Automated blood basophil count (count/volume) 0.1 10*3/uL 0.0-0.1 Serum or plasma renal function panel (Na , K, Cl, CO2, BUN, Cr, glucose,Ca, phos, alb) - 04/23/17 13:32 Serum or plasma sodium measurement (moles/volume) 140 mmol/L 135-145 Serum or plasma potassium measurement (moles/volume) 4.2 mmol/L 3.6-5.0 Serum or plasma chloride measurement (moles/volume) 110 mmol/L 98-107 Carbon dioxide 22 mmol/L 21-32 Serum or plasma anion gap determination (moles/volume) 8 mmol/L 5-14 Serum or plasma urea nitrogen measurement (mass/volume ) 19 mg/dL 7-18 Serum or plasma creatinine measurement (mass/volume) 1.50 mg/dL 0.60-1.30 Serum or plasma urea nitrogen/creatinine mass ratio 13 NRG Serum or plasma creatinine measurement w ith calculation of estimated glomerular filtration rate 37 NRG Serum or plasma glucose measurement (mass/volume) 100 mg/dL 70-105 Serum or plasma calcium measurement (mass/volume) 9.3 mg/dL 8.5-10.1 Serum or plasma albumin measurement (mass/volume) 4.4 g/dL 3.2-4.5 Serum or plasma phosphate measurement (mass/volume) 3.4 mg/dL 2.3-4.7 Magnesium - 04/23/17 13:32 Magnesium 1.9 mg/dL 1.8-2.4 Serum or plasma folate measurement (mass /volume) - 04/23/17 13:32 Serum or plasma folate measurement (mass/volume) > % 1.5- 24.0 Serum iron and total iron binding capaci ty panel - 04/23/17 13:32 Serum or plasma iron measurement (mass/volume) 49 % 35-180 Total iron binding capacity and transferrin saturation measurement 14 % 15-50 Iron binding capacity [mass/volume] in serum or plasma 353 % 280-380 UIBC (unsaturated iron binding capacity) 304 % 55-450 Serum or plasma ferritin measurement (mass/volume) 78.0 % 15.0-150.0 Serum or plasma intact pararthyroid horm one measurement (mass/volume) - 04/23/17 13:32 Serum or plasma intact parathyroid hormone measurement (mass/volume) 107.0 pg/mL 10.0-65.0 Bio-intact parathyroid hormone (PTH) measurement with calcium 9.4 % 8.5-10.5 Cyanocobalamin measurement - 04/23/17 13 :32 Vitamin B12 438 pg/mL 200-1000 25-hydroxyvitamin D measurement - 13:32 25-hydroxy vitamin D measurement 38 % 30-100 Complete urinalysis with reflex to cultu re - 04/24/17 10:50 Urine color determination YELLOW NRG Urine clarity determination CLEAR NR G Urine pH measurement by test strip 5 5-9 Specific gravity of urine by test strip 1.010 1.016-1.022 Urine protein assay by test strip, semi-quantitative NEGATIVE NEGATIVE Urine glucose detection by automated test strip NE GATIVE NEGATIVE Erythrocytes detection in urine sediment by light micr oscopy NEGATIVE NEGATIVE Urine ketones detection by automated test strip NE GATIVE NEGATIVE Urine nitrite detection by test strip NEGATIVE NEGATIVE Urine total bilirubin detection by test strip NEGA TIVE NEGATIVE Urine urobilinogen measurement by automated test strip (mass/volume) NORMAL NORMAL Urine leukocyte esterase detection by dipstick NEG ATIVE NEGATIVE Automated urine sediment erythrocyte cou nt by microscopy (number/high power field) NONE NRG Automated urine sediment leukocyte count by microscopy (number/high power field) NONE NRG Bacteria detection in urine sediment by light microsco py NEGATIVE NRG Squamous epithelial cells detection in u rine sediment by light microscopy 0-2 NRG Crystals detection in urine sediment by light microsco py NONE NRG Casts detection in urine sediment by light microscopy NONE NRG Mucus detection in urine sediment by light microscopy NEGATIVE NRG Complete urinalysis with reflex to culture NO NRG Urine protein/creatinine mass ratio - 10:50 Urine protein measurement (mass/volume) < mg/dL 6-12 Urine creatinine measurement (mass/volume) 16 mg/d L 30-125 Urine protein/creatinine mass ratio TNP NRG TSH w/ FREE T4 - 06/20/17 11:45 TSH 2.19 mIU/L NRG T4, FREE 1.0 ng/dL 0.8-1.8 IRON + TIBC - 07/15/17 14:13 IRON, TOTAL 81 mcg/dL 40-190 IRON BINDING CAPACITY 293 mcg/dL (calc) 250-450 % SATURATION 28 % (calc) 11-50 CBC - 07/15/17 14:13 WHITE BLOOD CELL COUNT 10.9 Thousand/uL 3.8-10.8 RED BLOOD CELL COUNT 3.89 Million/uL 3.8 0-5.10 HEMOGLOBIN 11.7 g/dL 11.7-15.5 HEMATOCRIT 35.4 % 35.0-45.0 MCV 91.0 fL 80.0-100.0 MCH 30.1 pg 27.0-33.0 MCHC 33.1 g/dL 32.0-36.0 RDW 12.5 % 11.0-15.0 PLATELET COUNT 307 Thousand/uL 140-400 MPV 10.8 fL 7.5-12.5 ABSOLUTE NEUTROPHILS 6464 cells/uL 1500- 7800 ABSOLUTE LYMPHOCYTES 2627 cells/uL 850-3 900 ABSOLUTE MONOCYTES 1166 cells/uL 200-950 ABSOLUTE EOSINOPHILS 578 cells/uL 15-500 ABSOLUTE BASOPHILS 65 cells/uL 0-200 NEUTROPHILS 59.3 % NRG LYMPHOCYTES 24.1 % NRG MONOCYTES 10.7 % NRG EOSINOPHILS 5.3 % NRG BASOPHILS 0.6 % NRG Complete urinalysis with reflex to cultu re - 10/02/17 09:20 Urine color determination YELLOW NRG Urine clarity determination CLEAR NR G Urine pH measurement by test strip 6 5-9 Specific gravity of urine by test strip 1.005 1.016-1.022 Urine protein assay by test strip, semi-quantitative NEGATIVE NEGATIVE Urine glucose detection by automated test strip NE GATIVE NEGATIVE Erythrocytes detection in urine sediment by light micr oscopy NEGATIVE NEGATIVE Urine ketones detection by automated test strip NE GATIVE NEGATIVE Urine nitrite detection by test strip NEGATIVE NEGATIVE Urine total bilirubin detection by test strip NEGA TIVE NEGATIVE Urine urobilinogen measurement by automated test strip (mass/volume) NORMAL NORMAL Urine leukocyte esterase detection by dipstick NEG ATIVE NEGATIVE Automated urine sediment erythrocyte cou nt by microscopy (number/high power field) NONE NRG Automated urine sediment leukocyte count by microscopy (number/high power field) NONE NRG Bacteria detection in urine sediment by light microsco py TRACE NRG Squamous epithelial cells detection in u rine sediment by light microscopy RARE NRG Crystals detection in urine sediment by light microsco py NONE NRG Casts detection in urine sediment by light microscopy NONE NRG Mucus detection in urine sediment by light microscopy NEGATIVE NRG Complete urinalysis with reflex to culture NO NRG Complete blood count (CBC) with automate d white blood cell (WBC) differential - 10/02/17 10:44 Blood leukocytes automated count (number/volume) 12.2 10*3/uL 4.3-11.0 Blood erythrocytes automated count (number/volume) 4.20 10*6/uL 4.35-5.85 Venous blood hemoglobin measurement (mass/volume) 13.1 g/dL 11.5-16.0 Blood hematocrit (volume fraction) 39 % 35-52 Automated erythrocyte mean corpuscular volume 94 [ foz_us] 80-99 Automated erythrocyte mean corpuscular h emoglobin (mass per erythrocyte) 31 pg 25-34 Automated erythrocyte mean corpuscular h emoglobin concentration measurement (mass/volume) 33 g/dL 32-36 Automated erythrocyte distribution width ratio 13. 5 % 10.0- 14.5 Automated blood platelet count (count/volume) 301 10*3/uL 130-400 Automated blood platelet mean volume measurement 10.9 [foz_us] 7.4-10.4 Automated blood neutrophils/100 leukocytes 68 % 42-75 Automated blood lymphocytes/100 leukocytes 21 % 12-44 Blood monocytes/100 leukocytes 9 % 0-12 Automated blood eosinophils/100 leukocytes 3 % 0-10 Automated blood basophils/100 leukocytes 0 % 0-10 Blood neutrophils automated count (number/volume) 8.2 10*3 1.8-7.8 Blood lymphocytes automated count (number/volume) 2.5 10*3 1.0-4.0 Blood monocytes automated count (number/volume) 1. 1 10*3 0.0-1.0 Automated eosinophil count 0.4 10*3/uL 0 .0-0.3 Automated blood basophil count (count/volume) 0.0 10*3/uL 0.0-0.1 Comprehensive metabolic panel - 10/02/17 10:44 Serum or plasma sodium measurement (moles/volume) 138 mmol/L 135-145 Serum or plasma potassium measurement (moles/volume) 4.2 mmol/L 3.6-5.0 Serum or plasma chloride measurement (moles/volume) 103 mmol/L 98-107 Carbon dioxide 26 mmol/L 21-32 Serum or plasma anion gap determination (moles/volume) 9 mmol/L 5-14 Serum or plasma urea nitrogen measurement (mass/volume ) 15 mg/dL 7-18 Serum or plasma creatinine measurement (mass/volume) 1.59 mg/dL 0.60-1.30 Serum or plasma urea nitrogen/creatinine mass ratio 9 NRG Serum or plasma creatinine measurement w ith calculation of estimated glomerular filtration rate 35 NRG Serum or plasma glucose measurement (mass/volume) 100 mg/dL 70-105 Serum or plasma calcium measurement (mass/volume) 9.7 mg/dL 8.5-10.1 Serum or plasma total bilirubin measurement (mass/volu me) 0.5 mg/dL 0.1-1.0 Serum or plasma alkaline phosphatase tino surement (enzymatic activity/volume) 111 U/L 40-136 Serum or plasma aspartate aminotransfera se measurement (enzymatic activity/volume) 16 U/L 5-34 Serum or plasma alanine aminotransferase measurement (enzymatic activity/volume) 16 U/L 0-55 Serum or plasma protein measurement (mass/volume) 7.7 g/dL 6.4-8.2 Serum or plasma albumin measurement (mass/volume) 4.4 g/dL 3.2-4.5 PDM - 09 PANEL (PROFILE 1) - 12/23/17 11 :20 Prescribed Drug 1 Tramadol NRG Creatinine 31.2 mg/dL > or = 20.0 pH 6.41 4.5 - 9.0 Oxidant NEGATIVE mcg/mL <200 Amphetamines NEGATIVE ng/mL <500 medMATCH Amphetamines CONSISTENT NRG Benzodiazepines NEGATIVE ng/mL <100 medMATCH Benzodiazepines CONSISTENT NRG Marijuana Metabolite NEGATIVE ng/mL <20 medMATCH Marijuana Metab CONSISTENT NRG Cocaine Metabolite NEGATIVE ng/mL <150 medMATCH Cocaine Metab CONSISTENT NRG Opiates NEGATIVE ng/mL <100 medMATCH Opiates CONSISTENT NRG Oxycodone NEGATIVE ng/mL <100 medMATCH Oxycodone CONSISTENT NRG COMMENT NRG Prescribed Drug 2 Gabapentin NRG Prescribed Drug 3 Tramadol NRG Prescribed Drug 4 Gabapentin NRG Barbiturates NEGATIVE ng/mL <300 medMATCH Barbiturates CONSISTENT NRG Methadone Metabolite NEGATIVE ng/mL <100 medMATCH Methadone Metab CONSISTENT NRG Phencyclidine NEGATIVE ng/mL <25 medMATCH Phencyclidine CONSISTENT NRG TSH - 12/14/18 11:42 TSH 6.27 mIU/L NRG LIPID PANEL - 03/05/19 10:24 CHOLESTEROL, TOTAL 171 mg/dL <200 HDL CHOLESTEROL 37 mg/dL >50 TRIGLYCERIDES 131 mg/dL <150 LDL-CHOLESTEROL 109 mg/dL (calc) NRG CHOL/HDLC RATIO 4.6 (calc) <5.0 NON HDL CHOLESTEROL 134 mg/dL (calc) <13 0 PDM - TRAMADOL - 12/10/19 13:45 Prescribed Drug 1 Tramadol NRG COMMENT NRG Desmethyltramadol NEGATIVE ng/mL <100 medMATCH Desmethyltram INCONSISTENT NRG Tramadol NEGATIVE ng/mL <100 medMATCH Tramadol INCONSISTENT NRG Complete blood count (CBC) with automate d white blood cell (WBC) differential - 01/31/20 09:14 Blood leukocytes automated count (number/volume) 13.1 10*3/uL 4.3-11.0 Blood erythrocytes automated count (number/volume) 4.49 10*6/uL 4.35-5.85 Venous blood hemoglobin measurement (mass/volume) 13.6 g/dL 11.5-16.0 Blood hematocrit (volume fraction) 42 % 35-52 Automated erythrocyte mean corpuscular volume 94 [ foz_us] 80-99 Automated erythrocyte mean corpuscular h emoglobin (mass per erythrocyte) 30 pg 25-34 Automated erythrocyte mean corpuscular h emoglobin concentration measurement (mass/volume) 32 g/dL 32-36 Automated erythrocyte distribution width ratio 13. 6 % 10.0- 14.5 Automated blood platelet count (count/volume) 303 10*3/uL 130-400 Automated blood platelet mean volume measurement 10.5 [foz_us] 7.4-10.4 Automated blood neutrophils/100 leukocytes 70 % 42-75 Automated blood lymphocytes/100 leukocytes 18 % 12-44 Blood monocytes/100 leukocytes 8 % 0-12 Automated blood eosinophils/100 leukocytes 4 % 0-10 Automated blood basophils/100 leukocytes 0 % 0-10 Blood neutrophils automated count (number/volume) 9.1 10*3 1.8-7.8 Blood lymphocytes automated count (number/volume) 2.4 10*3 1.0-4.0 Blood monocytes automated count (number/volume) 1. 1 10*3 0.0-1.0 Automated eosinophil count 0.6 10*3/uL 0 .0-0.3 Automated blood basophil count (count/volume) 0.0 10*3/uL 0.0-0.1 Comprehensive metabolic panel - 01/31/20 09:14 Serum or plasma sodium measurement (moles/volume) 142 mmol/L 135-145 Serum or plasma potassium measurement (moles/volume) 4.3 mmol/L 3.6-5.0 Serum or plasma chloride measurement (moles/volume) 105 mmol/L 98-107 Serum or plasma glucose measurement (mass/volume) 105 mg/dL 70-105 Serum or plasma calcium measurement (mass/volume) 9.5 mg/dL 8.5-10.1 Serum or plasma protein measurement (mass/volume) 7.9 g/dL 6.4-8.2 Serum or plasma albumin measurement (mass/volume) 4.5 g/dL 3.2-4.5 CALCIUM CORRECTED 9.1 mg/dL 8.5-10.1 PT panel in platelet poor plasma by coag ulation assay - 01/31/20 09:14 Prothrombin time (PT) in platelet poor plasma by coagu lation assay 13.8 s 12.2-14.7 INR in platelet poor plasma or blood by coagulation as say 1.0 0.8-1.4 Activated partial thromboplastin time (a PTT) in platelet poor plasma bycoagulation assay - 01/31/20 09:14 Activated partial thromboplastin time (a PTT) in platelet poor plasma bycoagulation assay 29 s 24-35 Capillary blood glucose measurement by g lucometer (mass/volume) - 01/31/20 09:15 Capillary blood glucose measurement by glucometer (mas s/volume) 104 mg/dL 70-110 Complete urinalysis with reflex to cultu re - 01/31/20 09:21 Urine color determination YELLOW NRG Urine clarity determination CLEAR NR G Urine pH measurement by test strip 6.0 5-9 Specific gravity of urine by test strip <= 1.016-1.022 Urine protein assay by test strip, semi-quantitative NEGATIVE NEGATIVE Urine glucose detection by automated test strip NE GATIVE NEGATIVE Erythrocytes detection in urine sediment by light micr oscopy NEGATIVE NEGATIVE Urine ketones detection by automated test strip NE GATIVE NEGATIVE Urine nitrite detection by test strip NEGATIVE NEGATIVE Urine total bilirubin detection by test strip NEGA TIVE NEGATIVE Urine urobilinogen measurement by automated test strip (mass/volume) 0.2 mg/dL < = 1.0 Urine leukocyte esterase detection by dipstick NEG ATIVE NEGATIVE Automated urine sediment erythrocyte cou nt by microscopy (number/high power field) NONE NRG Automated urine sediment leukocyte count by microscopy (number/high power field) NONE NRG Bacteria detection in urine sediment by light microsco py NEGATIVE NRG Squamous epithelial cells detection in u rine sediment by light microscopy RARE NRG Crystals detection in urine sediment by light microsco py NONE NRG Casts detection in urine sediment by light microscopy NONE NRG Mucus detection in urine sediment by light microscopy NEGATIVE NRG Complete urinalysis with reflex to culture NO NRG Encounters ACCT No. Visit Date/Time Discharge Status Pt. Type Provider Facility Loc./Unit Complaint [id number] 10/05/2016 10:07:00 Document Registration [id number] 01/24/2020 15:50:00 01/24/2020 23:59:5 9 CLS Outpatient MADELYN WILLSON MD [facility] [id number] 12/10/2019 13:20:00 Document Registration [id number] 03/05/2019 09:00:00 Document Registration [id number] 12/14/2018 11:20:00 Document Registration [id number] 12/23/2017 11:00:00 Document Registration [id number] 07/15/2017 14:00:00 Document Registration [id number] 06/20/2017 11:20:00 Document Registration [id number] 11/02/2014 13:56:00 11/02/2014 23:59: 59 CLS Outpatient PUNEET NIELSON APRN [id number] 10/17/2014 16:41:00 10/17/2014 23:59: 59 CLS Outpatient CARON SCHULTZ DO [id number] 07/19/2014 11:11:00 07/19/2014 23:59: 59 CLS Outpatient LINDY GALINDO APRN Trey [id number] 06/29/2014 08:50:00 06/29/2014 23:59: 59 CLS Outpatient LINDY GALINDO APRN Trey [id number] 03/30/2014 08:53:00 03/30/2014 23:59: 59 CLS Outpatient KURT CARDONA DDS [id number] 03/16/2014 09:34:00 03/16/2014 23:59: 59 CLS Outpatient VERONIQUE ANGULO APRN Heber [id number] 01/07/2014 10:00:00 01/07/2014 23:59: 59 CLS Outpatient KURT CARDONA DDS [id number] 10/19/2013 08:58:00 10/19/2013 23:59: 59 CLS Outpatient LINDY GALINDO APRN Trey [id number] 09/15/2013 11:01:00 09/15/2013 23:59: 59 CLS Outpatient KURT CARDONA DDS [id number] 09/07/2013 09:59:00 09/07/2013 23:59: 59 CLS Outpatient LINDY GALINDO APRN Trey [id number] 07/20/2013 08:54:00 07/20/2013 23:59: 59 CLS Outpatient LINDY GALINDO APRN Trey [id number] 06/16/2013 16:51:00 06/16/2013 23:59: 59 CLS Outpatient KURT CARDONA DDS [id number] 05/18/2013 13:45:00 05/18/2013 23:59: 59 CLS Outpatient KURT CARDONA DDS Gabby [id number] 05/06/2013 09:44:00 05/06/2013 23:59: 59 CLS Outpatient MARJORIE BEETrey CHANTELLE D [id number] 04/06/2013 11:24:00 04/06/2013 23:59: 59 CLS Outpatient LINDY GALINDO APRN Trey [id number] 03/25/2013 09:23:00 03/25/2013 23:59: 59 CLS Outpatient MARJORIE BEECHANTELLE Yang [id number] 10/20/2012 10:11:00 10/20/2012 23:59: 59 CLS Outpatient [id number] 10/01/2012 16:25:00 10/01/2012 23:59: 59 CLS Outpatient [id number] 09/08/2012 11:57:00 09/08/2012 23:59: 59 CLS Outpatient PAUL MERLOS DO [id number] 08/31/2012 12:25:00 08/31/2012 23:59: 59 CLS Outpatient [id number] 06/29/2012 12:10:00 06/29/2012 23:59: 59 CLS Outpatient PAUL MERLOS DO [id number] 06/08/2012 08:38:00 06/08/2012 23:59: 59 CLS Outpatient QUYEN TURNER APRN [id number] 04/29/2012 15:44:00 04/29/2012 23:59:5 9 CLS Outpatient QUYEN TURNER APRN [id number] 03/18/2013 13:19:00 Document Registration [id number] 03/12/2013 09:25:00 Document Registration [id number] 02/23/2013 11:01:00 Document Registration [id number] 01/28/2013 12:29:00 Document Registration [id number] 01/07/2013 11:17:00 Document Registration [id number] 12/24/2012 10:56:00 Document Registration [id number] 12/14/2012 09:16:00 Document Registration [id number] 11/23/2012 14:18:00 Document Registration [id number] 11/10/2012 10:17:00 Document Registration [id number] 06/08/2019 05:33:00 23:59:59 CLS Outpatient COOPER MCINTOSH DO [facility] PREOP COLONOSCOPY/EGD [id number] 04/27/2019 15:30:00 23:59:59 CLS Preadmit COOPER MCINTOSH DO [facility] ENDO SCREENING/GERD [id number] 04/22/2019 14:00:00 14:13:00 DIS Outpatient COOPER MCINTOSH DO [facility] PREOP COLONOSCOPY/EGD [id number] 10/02/2017 09:01:00 018 12:45:00 DIS Emergency KAVYA SUNSHINE, YUMIKO Hare [facility] ER BACK PAIN [id number] 04/24/2017 10:50:00 017 14:28:00 DIS Outpatient KWASI SUNSHINE, ARMAAN Madrigal [facility] LAB I10 N18.3 [id number] 01/01/2017 10:39:00 017 23:59:59 CLS Outpatient LORENA SUNSHINE, SIERRA Buck [facility] RAD CKD STAGE 3 N18.3 [id number] 01/17/2016 13:21:00 016 23:59:59 CLS Outpatient SEA 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 [facility] RAD BILAT CAROTID A RTERY DISEASE [id number] 07/07/2015 10:42:00 015 11:42:00 DIS Emergency MIKE SUNSHINE, SURENDRA Sheriff [facility] ER EAR PAIN/TROUBL E HEARING [id number] 07/19/2014 09:37:00 015 23:59:59 CLS Outpatient LINDY ROSE DIRECTOR OF DANCE [facility] RAD ABNORMAL MA MMO [id number] 07/11/2014 09:59:00 014 23:59:59 CLS Outpatient LINDY ROSE DIRECTOR OF DANCE [facility] RAD ROUTINE [id number] 06/27/2013 00:20:00 03:52:00 DIS Emergency SURENDRA MCKEON MD [facility] ER OD [id number] 03/19/2013 00:19:00 01:11:00 DIS Emergency SUNSHINE ALBERTO DO carlos [facility] ER NOT SLEEPING [id number] 2013 14:11:00 23:59:59 CLS Outpatient [id number] 02/01/2013 11:49:00 23:59:59 CLS Outpatient PAUL MERLOS DO [facility] RAD ABN CT HD [id number] 01/08/2013 11:37:00 23:59:59 CLS Outpatient PAUL MERLOS DO [facility] RAD BRUIT LT CAROTID ARTERY [id number] 12/25/2012 11:02:00 23:59:59 CLS Outpatient PAUL MERLOS DO [facility] RAD BRUIT OF LEFT CAROTID A RTERY [id number] 12/18/2012 13:01:00 23:59:[facility] FAMILY HX OF QUILEUTE OF SALEH ANYURISM,BRUIT L CA [id number] 01/31/2020 09:22:00 Document Registration [id number] 07/04/2014 15:42:00 Document Registration [id number] 07/04/2014 15:42:00 Document Registration [id number] 10/10/2012 03:36:00 Document Registration [id number] 08/09/2011 13:50:00 Document Registration [id number] 04/07/2011 14:39:00 Document Registration [id number] 03/30/2011 02:49:00 Document Registration [id number] 02/07/2011 00:53:00 Document Registration [id number] 01/04/2011 04:13:00 Document Registration [id number] 11/29/2010 09:04:00 Document Registration [id number] 09/27/2010 01:01:00 Document Registration [id number] 07/10/2010 06:57:00 Document Registration [id number] 07/08/2010 04:31:00 Document Registration [id number] 07/06/2010 03:06:00 Document Registration [id number] 06/26/2010 11:35:00 Document Registration [id number] 06/13/2010 12:04:00 Document Registration [id number] 05/28/2010 20:04:00 Document Registration [id number] 03/09/2010 22:47:00 Document Registration [id number] 01/18/2010 03:15:00 Document Registration [id number] 11/17/2009 10:22:00 Document Registration [id number] 07/03/2016 08:38:00 Document Registration [id number] 10/31/2016 08:41:00 Document Registration
[2020-01-31 10:03] LABS: TSH (THYROID ANALYZER) 4.66 UIU/ML (0.35-4.94)
--- NOTE | 2020-01-31 10:12 | Diagnostic Imaging Report ---
PROCEDURE: CT head wo r/o stroke. TECHNIQUE: Multiple contiguous axial images were obtained through the brain without the use of intravenous contrast. Auto Exposure Controls were utilized during the CT exam to meet ALARA standards for radiation dose reduction. INDICATION: Altered mental status. COMPARISON: Prior head CT from 12/25/2012. FINDINGS: The ventricles and sulci are within normal limits. No sulcal effacement or midline shift is identified. No acute intra-axial or extra-axial hemorrhage is detected. The cisterns are patent. The visualized paranasal sinuses are clear. IMPRESSION: No acute intracranial process is detected. Dictated by: Dictated on workstation # [id number]
[2020-01-31 10:24] VITALS: BP 138/66
== END 2020-01-31 10:24 | disposition home or self-care (01) ==
LOC: EDUNIT# 08:49 → ER 08:50
DX: G40.909 Epilepsy, unspecified, not intractable, without status epilepticus (principal); J45.909 Unspecified asthma, uncomplicated; I10 Essential (primary) hypertension; N18.3 Chronic kidney disease, stage 3 (moderate); K21.9 Gastro-esophageal reflux disease without esophagitis; E03.9 Hypothyroidism, unspecified; F32.9 Major depressive disorder, single episode, unspecified; E66.9 Obesity, unspecified; Z88.0 Allergy status to penicillin; Z88.1 Allergy status to other antibiotic agents; Z88.8 Allergy status to other drugs, medicaments and biological substances; Z88.2 Allergy status to sulfonamides; Z77.22 Contact with and (suspected) exposure to environmental tobacco smoke (acute) (chronic); Z79.890 Hormone replacement therapy; Z68.35 Body mass index [BMI] 35.0-35.9, adult; Z91.5 Personal history of self-harm
CPT/HCPCS: 70450; 80053; 80306; 81000; 82550; 82553; 82962; 83735; 83874; 84443; 84703; 85025; 85610; 85730; 93005; 93041; 99284; G0480 ×2; 36415; 80320; 80329

== ENCOUNTER 2021-04-27 09:34 | Emergency (ER) | payer MEDICARE, MEDICAID ==
[~2021-04-27] VITALS: Ht 177 cm; Wt 108.0 kg
[~2021-04-27 09:34] MED LIST changes: -LISI-556 PO; +LISI-729 PO; -MONT10TA26 PO; +MONT10TA32 PO; +SERT-414 PO; -SERT100T8 PO
[2021-04-27 10:01] LABS: BILIRUBIN,URINE NEGATIVE (NEGATIVE); CLARITY,URINE CLEAR; COLOR,URINE YELLOW; GLUCOSE, URINE (UA) NEGATIVE (NEGATIVE); KETONES,URINE NEGATIVE (NEGATIVE); LEUKOCYTE ESTERASE ,URINE NEGATIVE (NEGATIVE); NITRITE,URINE NEGATIVE (NEGATIVE); PROTEIN,URINE NEGATIVE (NEGATIVE)
[2021-04-27 10:11] LABS: BACTERIA,URINE NEGATIVE /HPF
--- NOTE | 2021-04-27 10:15 | Diagnostic Imaging Report ---
INDICATION: Stroke COMPARISON: 07/08/2010. FINDINGS: Frontal view of the chest demonstrates clear lungs bilaterally. The heart size is normal. There is no pneumothorax. Osseous structures are normal. IMPRESSION: No acute findings. Normal chest. Dictated by: Dictated on workstation # [id number]
[2021-04-27 10:16] LABS: BASOPHILS # (AUTO) 0.1 10^3/uL (0.0-0.1); BASOPHILS % (AUTO) 1 % (0-10); EOSINOPHILS # (AUTO) 0.3 10^3/uL (0.0-0.3); EOSINOPHILS % (AUTO) 3 % (0-10); HEMATOCRIT 38 % (35-52); HEMOGLOBIN 12.1 g/dL (11.5-16.0); LYMPHOCYTES # (AUTO) 1.4 10^3/uL (1.0-4.0); LYMPHOCYTES % (AUTO) 14 % (12-44); MEAN CORPUSCULAR HEMOGLOBIN 32 pg (25-34); MEAN CORPUSCULAR HGB CONC 32 g/dL (32-36); MEAN CORPUSCULAR VOLUME 101 fL (80-99); MEAN PLATELET VOLUME 10.4 fL (9.0-12.2); MONOCYTES # (AUTO) 0.3 10^3/uL (0.0-1.0); MONOCYTES % (AUTO) 3 % (0-12); NEUTROPHILS % (AUTO) 79 % (42-75); PLATELET COUNT 280 10^3/uL (130-400); WHITE BLOOD COUNT 10.1 10^3/uL (4.3-11.0)
[2021-04-27 10:30] LABS: FIBRIN DEGRADATION PRODUCTS 0.61 UG/ML (0.00-0.49); PROTHROMBIN TIME PATIENT 13.7 SEC (12.2-14.7)
[2021-04-27 10:43] LABS: ALANINE AMINOTRANSFERASE 23 U/L (0-55); ALBUMIN 4.2 GM/DL (3.2-4.5); ALKALINE PHOSPHATASE 115 U/L (40-136); BILIRUBIN,TOTAL 0.5 MG/DL (0.1-1.0); BUN/CREATININE RATIO 7; CALCIUM 9.4 MG/DL (8.5-10.1); CARBON DIOXIDE 22 MMOL/L (21-32); CHLORIDE 106 MMOL/L (98-107); CREATININE SERUM 1.61 MG/DL (0.60-1.30); GFR ESTIMATED 33; GLUCOSE 98 MG/DL (70-105); POTASSIUM 4.4 MMOL/L (3.6-5.0); SODIUM 141 MMOL/L (135-145); TOTAL PROTEIN 7.5 GM/DL (6.4-8.2)
--- NOTE | 2021-04-27 10:45 | Diagnostic Imaging Report ---
PROCEDURE: CT head wo r/o stroke. TECHNIQUE: Multiple contiguous axial images were obtained through the brain without the use of intravenous contrast. Auto Exposure Controls were utilized during the CT exam to meet ALARA standards for radiation dose reduction. INDICATION: 51-year-old female with altered mental status with right-sided vision loss. COMPARISONS: 01/31/2020. FINDINGS: Midline structures are not displaced. Lateral, third and fourth ventricles are normal in size, shape, and anatomic position. There is no mass, mass effect, hydrocephalus, or hemorrhage. Perea-white differentiation is normal. There is no sulcal effacement. There are no abnormal extra-axial fluid collections or hemorrhage. Basilar cisterns appear normal. Sinuses, orbits, and mastoid air cells are unremarkable. Bone windows show no calvarial changes. IMPRESSION: Unremarkable nonenhanced CT brain. Dictated by: Dictated on workstation # [id number]
[2021-04-27] MEDS ORDERED: LACTATED RINGERS 1,000 ML IV ONE ×2 (11:00→12:15)
[2021-04-27] MEDS ORDERED: IOHEXOL 350 MG/ML 100 ML (OMNIPAQUE 350) VIAL IV ONE (11:30)
[2021-04-27] MEDS ORDERED: NS 100 ML (IVPB) BAG IV ONE (11:30)
[2021-04-27] MEDS ORDERED: HOLD METFORMIN - RECEIVED CONTRAST 20 ML VIAL IV SCH (11:30)
--- NOTE | 2021-04-27 12:01 | ED Neurological Problem ---
General Chief Complaint: Neuro-Stroke Like Symptoms Stated Complaint: POSSIBLE STROKE Nursing Triage Note: pt presents to ed with complaints of partial vision loss in r eye starting at 1999 last night. Source: patient History of Present Illness Date Seen by Provider: Apr 27, 2021 Time Seen by Provider: 09:40 Initial Comments PT ARRIVES VIA POV, DROVE SELF HERE--SENT HERE FROM [facility] PT STATES AROUND 1999 LAST PM, SHE WAS PLAYING GAMES ON COMPUTER, AND HAD SUDDEN PARTIAL VISION LOSS IN RIGHT EYE STATES UPPER PART OF VISION ON RIGHT EYE IS "JUST A BIG PEREA BLOB" "IT'S THERE EVEN WHEN I CLOSE MY EYES" NO PAIN TO EYE NO INJURY TO EYE NO REDNESS, OR SWELLING OR DRAINAGE FROM THE EYE NO FEVER OR RECENT ILLNESS NO HEADACHE NO DIZZINESS NO PARESTHESIAS OR MOTOR DEFICITS NO NECK PAIN OR STIFFNESS NO HISTORY OF SIMILAR PT WEARS GLASSES--HAS NOT SEEN AN EYE DR IN OVER 1 1/2 YEARS--USED TO SEE DR. ASTORGA, BUT HE HAS RETIRED, AND PT HAS NOT ESTABLISHED WITH A NEW EYE DR. PT HAS HISTORY OF HTN PCP: [facility] Allergies and Home Medications Allergies Coded Allergies: pantoprazole (Unverified Allergy, Mild, 04/22/19) sulfamethoxazole (Unverified Allergy, Mild, 04/22/19) trimethoprim (Unverified Allergy, Mild, 04/22/19) Penicillins (Verified Allergy, Unknown, 04/22/19) cephalexin (Verified Allergy, Unknown, 04/22/19) erythromycin base (Verified Allergy, Unknown, 04/22/19) piroxicam (Verified Allergy, Unknown, 04/22/19) silver sulfadiazine (Verified Allergy, Unknown, 04/22/19) tetracycline (Verified Allergy, Unknown, 04/22/19) epinephrine (Unverified Adverse Reaction, Unknown, 04/22/19) Uncoded Allergies: ZIPSOR (Allergy, Mild, 11/17/09) MENTAL MOOD CHANGES (Adverse Reaction, Unknown, CAUSE TO HAVE SEVERE MOOD CHANGES, 07/07/15) Patient Home Medication List Home Medication List Reviewed: Yes Albuterol Sulfate (Proair Hfa) 1 Puff Puff, 2 PUFF IH Q4H PRN for SHORTNESS OF BREATH, (Reported) Entered as Reported by: CHANTELLE VO on 04/22/19 1403 Baclofen (Baclofen) 10 Mg Tablet, 10 MG PO TID, (Reported) Entered as Reported by: CHANTELLE VO on 04/22/191403 Bupropion HCl (Bupropion Xl) 300 Mg Tab.er.24h, 300 MG PO DAILY, (Reported) Entered as Reported by: CHANTELLE VO on 04/22/191403 Cholecalciferol (Vitamin D3) (Vitamin D3) 1,000 Unit Tablet, 1,000 UNIT PO DAILY, (Reported) Entered as Reported by: CHANTELLE VO on 04/22/191403 Ferrous Sulfate (Iron) 325 Mg Tablet, 325 MG PO HS, (Reported) Entered as Reported by: CHANTELLE VO on 04/22/191403 Gabapentin (Gabapentin) 600 Mg Tablet, 300 MG PO BID, (Reported) Entered as Reported by: CHANTELLE VO on 04/22/191403 Lamotrigine (Lamotrigine) 150 Mg Tablet, 150 MG PO HS, (Reported) Entered as Reported by: CHANTELLE VO on 04/22/191403 Levothyroxine Sodium (Levothyroxine Sodium) 112 Mcg Tablet, 112 MCG PO DAILY, (Reported) Entered as Reported by: CHANTELLE VO on 04/22/191403 Lisinopril (Lisinopril) 5 Mg Tablet, 5 MG PO DAILY, (Reported) Entered as Reported by: CHANTELLE VO on 04/22/191403 Loratadine (Loratadine) 10 Mg Tablet, 10 MG PO HS, (Reported) Entered as Reported by: CHANTELLE VO on 04/22/191403 Melatonin (Melatonin) 5 Mg Tablet, 1-5 MG PO HS, (Reported) Entered as Reported by: CHANTELLE VO on 04/22/191403 Montelukast Sodium (Montelukast Sodium) 10 Mg Tablet, 10 MG PO HS, (Reported) Entered as Reported by: CHANTELLE VO on 04/22/191403 Multivitamin (Multiple Vitamins) 1 Each Tablet, 1 EACH PO DAILY, (Reported) Entered as Reported by: CHANTELLE VO on 10/10/19 1404 Ranitidine HCl (Ranitidine HCl) 150 Mg Tablet, 150 MG PO QID PRN for HEARTBURN, (Reported) Entered as Reported by: CHANTELLE VO on 04/22/19 1404 Sertraline HCl (Sertraline HCl) 100 Mg Tablet, 100 MG PO DAILY, (Reported) Entered as Reported by: CHANTELLE VO on 04/22/19 1404 Tramadol HCl (Tramadol HCl) 50 Mg Tablet, 50 MG PO 4 TIMES A DAY Prescribed by: YUMIKO HOFF on 10/02/17 1237 Review of Systems Review of Systems Constitutional: no symptoms reported Eyes: See HPI Ears, Nose, Mouth, Throat: no symptoms reported Respiratory: no symptoms reported Cardiovascular: no symptoms reported Gastrointestinal: no symptoms reported Genitourinary: no symptoms reported Musculoskeletal: no symptoms reported Skin: no symptoms reported Psychiatric/Neurological: No Symptoms Reported Endocrine: No Symptoms Reported Hematologic/Lymphatic: No Symptoms Reported Past Mcakbwi-Nleaad-Zbonfc Hx Patient Social History Tobacco Use?: No Substance use?: No Alcohol Use?: No Pt feels they are or have been: No Immunizations Up To Date Tetanus Booster (TDap): Unknown First/Initial COVID19 Vaccinat: 08/25 Second COVID19 Vaccination Harris: 12/21 COVID19 Vaccine Hub Associate: Carestreamcarlos Seasonal Allergies Seasonal Allergies: Yes Past Medical History Surgery/Hospitalization HX: sx: appy, [facility]: stage 3 kidney failure, raynauds, fibromyalgia, hypothroidism Surgeries: Yes Appendectomy, Gallbladder Respiratory: Yes Asthma Cardiac: Yes Hypertension Neurological: Yes Seizure Disorder Reproductive Disorders: Yes (son born with cleft lip & palate, crebral palsy, and MR) Genitourinary: Yes (STAGE 3 KIDNEY FAILURE/RENAL INSUFFICIENCY--NO DIALYSIS) Renal Failure Gastrointestinal: Yes Gastroesophageal Reflux, Chronic Constipation Musculoskeletal: Yes (RAYNAUD'S) Fibromyalgia Endocrine: Yes (VITAMIN D DEFICIENCY) Hypothyroidsim HEENT: Yes (GLASSES, DENTURES) Loss of Vision: Denies Hearing Impairment: Denies Cancer: No Psychosocial: Yes (psychoeffective disorder;EXTENSIVE PSYCH ISSUES 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 12.8oz. 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, no motor/sensory deficits, alert, normal mood/affect, oriented x 3 Crainal Nerves: normal hearing, normal speech, PERRL Coordination/Gait: normal gait Motor/Sensory: no motor deficit, no sensory deficit, no pronator drift Skin: normal color, warm/dry Stroke Onset of Symptoms Date of Onset of Symptoms: Apr 26, 2021 Time of Symptom Onset: 20:00 Onset of Symptoms: Yes NIH Stroke Scale Assessment Select: Initial Level of Consciousness: 0=Alert (0), Level of Consciousness- Questions: 0=Answers both month/age (0), LOC Commands: 0=Performs both tasks (0), Gaze: Normal (0), Visual Garcia: 1=Partial hemianopia (1), Facial Movement (Facial Paresis): 0=Normal symmetrical mnt (0), Motor Function-Arms Right: 0=No drift (0), Motor Function-Arms Left: 0=No drift (0), Motor Function-Legs Right: 0=No drift (0), Motor Function-Legs Left: 0=No drift (0), Limb Ataxia: 0=Absent (0), Sensory: 0=Normal:no loss (0), Best Language: 0=No aphasia (0), Dysarthria: 0=Normal (0), Extinction & Inattention: 0=No abnormality (0), Total: 1 Stroke Thrombolytic Exclusion Age 18 or Over: Yes Acute intenal hemorrhage: No History of CVA: No Uncontrolled Coagulation Defec: No Intracranial Hemorrhage: No Severe Hypertension: No GI or Bleed: No Subarachnoid Hemorrhage: No Intracranial Neoplasm/Aneurysm: No Oral Anticoagulants: No Surgery or Trauma: No Puncture of Non-Compressible V: No Recent CPR: No Diabetic Hemorrhagic Retinopat: No Organ Biopsy: No Recent Obstetric Delivery: No Glucose: No Significant Hepatic Dysfunctio: No NIH Stoke Scale >22: No Bacterial Endocarditis: No Pericarditis: No Improving Symptoms: No Platelets: No TPA Contraindication: No IV - TPa Received IV - TPa Procedure Performed?: No (TIME OF ONSET > 12 HOURS, AND PT HAS NIH OF 1) Progress/Results/Core Measures Results/Orders Lab Results Laboratory Tests Test 04/27/21 09:49 04/27/21 10:11 04/27/21 10:41 Range/Units White Blood Count 10.1 4.3-11.0 10^3/uL Red Blood Count 3.74 L 3.80-5.11 10^6/uL Hemoglobin 12.1 11.5-16.0 g/dL Hematocrit 38 35-52 % Mean Corpuscular Volume 101 H 80-99 fL Mean Corpuscular Hemoglobin 32 25-34 pg Mean Corpuscular Hemoglobin Concent 32 32-36 g/dL Red Cell Distribution Width 14.0 10.0-14.5 % Platelet Count 280 130-400 10^3/uL Mean Platelet Volume 10.4 9.0-12.2 fL Immature Granulocyte % (Auto) 0 % Neutrophils (%) (Auto) 79 H 42-75 % Lymphocytes (%) (Auto) 14 12-44 % Monocytes (%) (Auto) 3 0-12 % Eosinophils (%) (Auto) 3 0-10 % Basophils (%) (Auto) 1 0-10 % Neutrophils # (Auto) 8.0 H 1.8-7.8 10^3/uL Lymphocytes # (Auto) 1.4 1.0-4.0 10^3/uL Monocytes # (Auto) 0.3 0.0-1.0 10^3/uL Eosinophils # (Auto) 0.3 0.0-0.3 10^3/uL Basophils # (Auto) 0.1 0.0-0.1 10^3/uL Immature Granulocyte # (Auto) 0.0 0.0-0.1 10^3/uL Urine Color YELLOW Urine Clarity CLEAR Urine pH 6.0 5-9 Urine Specific [place] <=1.005 1.016-1.022 Urine Protein NEGATIVE NEGATIVE Urine Glucose (UA) NEGATIVE NEGATIVE Urine Ketones NEGATIVE NEGATIVE Urine Nitrite NEGATIVE NEGATIVE Urine Bilirubin NEGATIVE NEGATIVE Urine Urobilinogen 0.2 < = 1.0 MG/DL Urine Leukocyte Esterase NEGATIVE NEGATIVE Urine RBC (Auto) NEGATIVE NEGATIVE Urine RBC NONE /HPF Urine WBC NONE /HPF Urine Squamous Epithelial Cells 2-5 /HPF Urine Crystals NONE /LPF Urine Bacteria NEGATIVE /HPF Urine Casts NONE /LPF Urine Mucus NEGATIVE /LPF Urine Culture Indicated NO Prothrombin Time 13.7 12.2-14.7 SEC INR Comment 1.0 0.8-1.4 Activated Partial Thromboplast Time 28 24-35 SEC D-Dimer 0.61 H 0.00-0.49 UG/ML Sodium Level 141 135-145 MMOL/L Potassium Level 4.4 3.6-5.0 MMOL/L Chloride Level 106 98-107 MMOL/L Carbon Dioxide Level 22 21-32 MMOL/L Anion Gap 13 5-14 MMOL/L Blood Urea Nitrogen 12 7-18 MG/DL Creatinine 1.61 H 0.60-1.30 MG/DL Estimat Glomerular Filtration Rate 33 BUN/Creatinine Ratio 7 Glucose Level 98 70-105 MG/DL Calcium Level 9.4 8.5-10.1 MG/DL Corrected Calcium 9.2 8.5-10.1 MG/DL Total Bilirubin 0.5 0.1-1.0 MG/DL Aspartate Amino Transf (AST/SGOT) 20 5-34 U/L Alanine Aminotransferase (ALT/SGPT) 23 0-55 U/L Alkaline Phosphatase 115 40-136 U/L Troponin I < 0.028 <0.028 NG/ML Total Protein 7.5 6.4-8.2 GM/DL Albumin 4.2 3.2-4.5 GM/DL Glucometer 85 70-110 MG/DL My Orders Orders - SUNSHINE ALBERTO DO Cbc With Automated Diff (04/27/21 09:47) Protime With Inr (04/27/21 09:47) Partial Thromboplastin Time (04/27/21 09:47) Comprehensive Metabolic Panel (04/27/21 09:47) Fibrin Degradation Products (04/27/21 09:47) Troponin I (04/27/21 09:47) Ua Culture If Indicated (04/27/21 09:47) Chest 1 View, Ap/Pa Only (04/27/21 09:47) Ekg Tracing (04/27/21 09:47) Accucheck Stat ONCE (04/27/21 09:47) Ed Iv/Invasive Line Start (04/27/21 09:47) Ed Iv/Invasive Line Start (04/27/21 09:47) Vital Signs Stroke Patient Q15M (04/27/21 09:47) Ct Head Wo-R/O Stroke (04/27/21 09:47) O2 (04/27/21 09:47) Intake & Output 06,14,22 (04/27/21 09:47) Monitor-Rhythm Ecg Trace Only (04/27/21 09:47) Dysphagia Screening Tool (04/27/21 09:47) Ct Angio Head/Neck (04/27/21 10:54) Ed Iv/Invasive Line Start (04/27/21 10:54) Ed Iv/Invasive Line Start (04/27/21 10:54) Lactated Ringers (Lr 1000 Ml Iv Solution (04/27/21 11:00) Iohexol Injection (Omnipaque 350 Mg/Ml 1 (04/27/21 11:30) Received Contrast (Hold Metformin- Contr (04/27/21 11:30) Ns (Ivpb) (Sodium Chloride 0.9% Ivpb Bag (04/27/21 11:30) Ed Iv/Invasive Line Start (04/27/21 12:08) Lactated Ringers (Lr 1000 Ml Iv Solution (04/27/21 12:15) Tropicamide 1% Ophthalmic Soln (Mydriacy (04/27/21 13:00) Tropicamide 1% Ophth Soln (Mydriacyl 1% (04/27/21 12:56) Medications Given in ED Current Medications Medications Dose Ordered Sig/Jayme Route Start Time Stop Time Status Last Admin Dose Admin Iohexol 100 ml ONCE ONCE IV 04/27/21 11:30 04/27/21 11:31 DC 04/27/21 12:14 60 ML Lactated Ringer's 1,000 ml @ 0 mls/hr Q0M ONCE IV 04/27/21 11:00 04/27/21 11:01 DC 04/27/21 11:06 0 MLS/HR Lactated Ringer's 1,000 ml @ 0 mls/hr Q0M ONCE IV 04/27/21 12:15 04/27/21 12:16 DC 04/27/21 12:29 0 MLS/HR Sodium Chloride 100 ml ONCE ONCE IV 04/27/21 11:30 04/27/21 11:31 DC 04/27/21 12:14 80 ML Tropicamide 1 TO 2 DROPS INTO AFFEC... ONCE ONCE OU 04/27/21 13:00 04/27/21 13:00 DC 04/27/21 12:58 1 ML Vital Signs/I&O 04/27/21 04/27/21 09:40 13:00 Temp 36.9 36.9 Pulse 63 52 Resp 16 16 B/P (MAP) 164/70 (101) 131/84 Pulse Ox 97 97 Blood Pressure Mean: 101 FSBG Bedside Testing Finger Stick Blood Glucose: 85 Blood Glucose Action Taken: rn notified Progress Progress Note : Progress Note UNEVENTFUL ER STAY PT HAD NO COMPLAINTS VITALS STABLE Initial ECG Impression Date: Apr 27, 2021 Initial ECG Impression Time: 10:13 Initial ECG Rate: 66 Initial ECG Rhythm: Normal Sinus Diagnostic Imaging Comments CXR--NO ACUTE PROCESS, PER RADIOLOGIST REPORT AT 1054 CT HEAD--PER RADIOLOGIST REPORT AT 1054 FINDINGS: Midline structures are not displaced. Lateral, third and fourth ventricles are normal in size, shape, and anatomic position. There is no mass, mass effect, hydrocephalus, or hemorrhage. Perea-white differentiation is normal. There is no sulcal effacement. There are no abnormal extra-axial fluid collections or hemorrhage. Basilar cisterns appear normal. Sinuses, orbits, and mastoid air cells are unremarkable. Bone windows show no calvarial changes. IMPRESSION: Unremarkable nonenhanced CT brain. CT ANGIOGRAM HEAD/NECK--PER RADIOLOGIST VIA PHONE AT 1240 FINDINGS: HEAD CT: There is no evidence of acute cerebral infarct, intracranial hemorrhage, brain herniation, or midline shift. There is no abnormal IV contrast enhancement. Brain parenchymal volume appears appropriate for patient's age. There is no hydrocephalus. Basal cisterns are unremarkable. The remainder of this exam shows no significant interval change compared to the prior study of comparison. CT ANGIOGRAM: Three-vessel aortic arch is seen. There is mild stenosis from atherosclerotic disease involving the proximal brachiocephalic artery. The bilateral subclavian arteries are patent. The right common carotid artery is patent. There is mild atherosclerotic plaque involving the distal right CCA and right ICA bulb. There is no significant stenosis involving the right ECA and right cervical ICA. There is mild atherosclerotic plaque involving the mid left CCA without significant stenosis. There is moderate stenosis involving the origin of the left common carotid artery. There is atherosclerotic disease with severe stenosis of the origin of the left ECA. There is roughly 50 to 69% stenosis involving the cervical left ICA bulb. Remainder of the cervical left ICA is patent. Petrous, cavernous, and supraclinoid ICA are patent. The bilateral ACAs, anterior communicating artery and distal branches are patent. The bilateral MCAs and distal branches are patent. There is moderate stenosis involving the origin of the cervical left vertebral artery. Remainder of the left cervical vertebral artery is patent. There is mild stenosis of the origin of the right cervical vertebral artery. Otherwise, the remainder of the cervical right vertebral artery is patent. Dominant left cervical vertebral artery is seen. The bilateral intradural vertebral arteries, basilar artery, bilateral superior cerebellar arteries, and bilateral CASING FLUID TENDER are patent. The dural venous sinuses are patent. Neck soft tissue structures show no significant abnormality. There is severe loss of disk space height, hypertrophic spurs involving the C5-C6 level. There is [id number] left C5-C6 neuroforamen narrowing and at least mild central canal narrowing. IMPRESSION: 1: Unremarkable CT scan of the brain for age. 2: There is no large vessel occlusion. 3: There is severe stenosis involving the origin of the left ECA. 4: There is moderate stenosis involving the cervical left ICA bulb, origin of the left common carotid artery, and origin of the cervical left vertebral artery. Reviewed: Reviewed by Me Departure Communication (Admissions) [id number]--SPOKE WITH DR. PADGETT, [facility] C[employer]IST. SHE ADVISES TO DILATE EYES HERE, AND SHE WILL SEE PT IN OFFICE NOW AND CALL ME BACK. BASED ON HISTORY AND DESCRIPTION, DX OF RETINAL TEAR IS POSSIBILITY, SHE WILL REFER TO OPTHALMOLOGIST NECESSARY. I HAVE DISCUSSED CT FINDINGS OF SEVERE CAROTID DISEASE AND PT STATES SHE WAS AWARE THAT SHE HAD "90% OCCLUSION ON THE LEFT" OVER 10 YEARS AGO--STATES SHE HAS NOT SEEN A VASCULAR SURGEON OR HAD ANY CAROTID TESTING SINCE THEN. 1415--SPOKE WITH DR. PADGETT, SHE STATES THAT THERE IS AN OCCLUSION OF BRANCH OF RETINAL ARTERY. THERE IS NO SURGICAL TREATMENT FOR THIS AND NO OPHTHALMOLOGY REFERRAL IS NEEDED AT THIS TIME. MANAGEMENT IS MEDICAL AT THIS TIME. THEY WILL FOLLOW UP WITH PT IN CLINIC. 1425--SPOKE WITH DR. LEYVA WITH [facility]. SHE WILL CALL IN RX FOR ASPIRIN AND PLAVIX TO PHARMACY AND THEY WILL ARRANGE FOLLOW UP APPOINTMENT AND REFERRAL TO VASCULAR SURGEON FOR CAROTID DISEASE. 1430--CALLED PT AND INFORMED HER OF THE ABOVE PLAN. Impression Primary Impression: SUDDEN PARTIAL VISION LOSS RIGHT EYE Disposition: HOME, SELF-CARE (TO DR. PADGETT'S OFFICE) Condition: Stable Departure-Patient Inst. Decision time for Depature: 12:50 Referrals: MADELYN WILLSON MD (PCP/Family) Primary Care Physician MITESH ESCOBEDO OD Patient Instructions: Peripheral Vascular (Arterial) Disease (DC) Add. Discharge Instructions: GO DIRECTLY TO DR. PADGETT'S OFFICE FROM HERE--DR. CHANDRA'S OFFICE. SHE WILL CALL ME WHEN HER EXAM IS COMPLETE AND WILL GIVE FURTHER INSTRUCTIONS AT THAT TIME. All discharge instructions reviewed with patient and/or family. Voiced understanding. SUNSHINE ALBERTO DO Apr 27, 2021 12:01
--- NOTE | 2021-04-27 12:51 | Diagnostic Imaging Report ---
CLINICAL INDICATION: Patient with right-sided vision issues today. EXAMS: 1: Head CT with IV contrast. Auto Exposure Controls were utilized during the CT exam to meet ALARA standards for radiation dose reduction. 2: CT angiogram of the head and neck performed with 100 cc of Omnipaque 350 IV contrast. Sagittal and coronal MIP reformations were created for better visualization of vascular anatomy. CT angiogram was post-processed using RAPID LVO detection to include quantitative measurements of cerebral blood flow and automated results notification to the stroke and/or neurointerventional team. COMPARISON: CT angiogram of the head with and without contrast dated 12/25/2012. Head CT without contrast dated 04/27/2021. FINDINGS: HEAD CT: There is no evidence of acute cerebral infarct, intracranial hemorrhage, brain herniation, or midline shift. There is no abnormal IV contrast enhancement. Brain parenchymal volume appears appropriate for patient's age. There is no hydrocephalus. Basal cisterns are unremarkable. The remainder of this exam shows no significant interval change compared to the prior study of comparison. CT ANGIOGRAM: Three-vessel aortic arch is seen. There is mild stenosis from atherosclerotic disease involving the proximal brachiocephalic artery. The bilateral subclavian arteries are patent. The right common carotid artery is patent. There is mild atherosclerotic plaque involving the distal right CCA and right ICA bulb. There is no significant stenosis involving the right ECA and right cervical ICA. There is mild atherosclerotic plaque involving the mid left CCA without significant stenosis. There is moderate stenosis involving the origin of the left common carotid artery. There is atherosclerotic disease with severe stenosis of the origin of the left ECA. There is roughly 50 to 69% stenosis involving the cervical left ICA bulb. Remainder of the cervical left ICA is patent. Petrous, cavernous, and supraclinoid ICA are patent. The bilateral ACAs, anterior communicating artery and distal branches are patent. The bilateral MCAs and distal branches are patent. There is moderate stenosis involving the origin of the cervical left vertebral artery. Remainder of the left cervical vertebral artery is patent. There is mild stenosis of the origin of the right cervical vertebral artery. Otherwise, the remainder of the cervical right vertebral artery is patent. Dominant left cervical vertebral artery is seen. The bilateral intradural vertebral arteries, basilar artery, bilateral superior cerebellar arteries, and bilateral LEATHER SPRAYER are patent. The dural venous sinuses are patent. Neck soft tissue structures show no significant abnormality. There is severe loss of disk space height, hypertrophic spurs involving the C5-C6 level. There is [id number] left C5-C6 neuroforamen narrowing and at least mild central canal narrowing. IMPRESSION: 1: Unremarkable CT scan of the brain for age. 2: There is no large vessel occlusion. 3: There is severe stenosis involving the origin of the left ECA. 4: There is moderate stenosis involving the cervical left ICA bulb, origin of the left common carotid artery, and origin of the cervical left vertebral artery. Results of this report were discussed with Dr. Beth Melgoza via the telephone on 04/27/2021 at 1240 hours. Dictated by: Dictated on workstation # [id number]
[2021-04-27] MEDS ORDERED: TROPICAMIDE 1% OPH SOLN (MYDRIACYL) 15 ML BTL ONE (12:56)
[2021-04-27 13:00] VITALS: BP 131/84
[2021-04-27] MEDS ORDERED: TROPICAMIDE 1% OPH SOLN (MYDRIACYL) 3 ML BTL OU ONE (13:00)
== END 2021-04-27 13:00 | disposition home or self-care (01) ==
LOC: EDUNIT# 09:34 → ER 09:36
DX: H54.61 Unqualified visual loss, right eye, normal vision left eye (principal); J45.909 Unspecified asthma, uncomplicated; I10 Essential (primary) hypertension; K21.9 Gastro-esophageal reflux disease without esophagitis; E03.9 Hypothyroidism, unspecified; F41.9 Anxiety disorder, unspecified; F32.9 Major depressive disorder, single episode, unspecified; G40.909 Epilepsy, unspecified, not intractable, without status epilepticus; E66.9 Obesity, unspecified; Z68.34 Body mass index [BMI] 34.0-34.9, adult; Z79.890 Hormone replacement therapy; Z79.899 Other long term (current) drug therapy
CPT/HCPCS: 36415; 70450; 70496; 70498; 71045; 80053; 81000; 82947; 84484; 85025; 85379; 85610; 85730; 93005; 93041